=== PATIENT | female | born 1965 | race Caucasian/White ===

== ENCOUNTER 2022-07-13 05:58 | Outpatient (OUT) | payer MEDICARE, SELFPAY ==
--- NOTE | 2022-07-13 06:15 | NM_ITS ---
Patient: FRANKY SRINIVASAN Exam Date: 07/13/2022 : 1965 Gender:F Ordering : DR. Jackson Moralez . Admission #: [id number] Family : Jaymie Phoenix Order #: [id number] CLICK HERE TO VIEW EXAM RADIOLOGY REPORT PROCEDURE: NM SAHIL PERF SPECT REST STR COMPARISON: None. INDICATIONS: Shortness of breath TECHNIQUE: Exam Description: Stress/Rest one day protocol gated SPECT Rest Imagin.8 mCi Tc-99m Cardiolite IV on 07/13/2022 Stress Imaging 30.1 mCi Tc-99m Cardiolite IV on 07/13/2022 Exercise Protocol: 0.4 mg Lexiscan given IV Heart Rate (bpm): Rest: 81 Max: 103 PMHR: 63 Blood Pressure: Rest: 146/98 Max: 150/94 Symptoms: Rest and peak stress ECG findings were abnormal and the exercise portion of the study was Non-diagnostic per attending physician Dr. Moralez due to EKG changes, biphasic T-waves in V3-5. For more details please see separate cardiac stress test report. FINDINGS: QUALITY OF STUDY: Excellent. PERFUSION DEFECT: LOCATION: Apical anterior. SIZE: Small (1-2 segments). SEVERITY: Mild. TYPE: Persistent. WALL MOTION: Normal. LV SIZE: Normal. 69 mL. TID / TCD: None; 0.8 LVEF: Normal. Calculated EF 81%. SUMMARY: Myocardial perfusion imaging study has ABNORMAL findings. CONCLUSION: 1. No acute or reversible ischemia. 2. Small fixed perfusion defect involving a pickle anterior wall versus breast attenuation artifact. 3. Normal wall motion, left ventricle volume, and ejection fraction. Dictated by: Gurwinder Day M.D. on 07/14/2022 at 06:50 Approved by: Gurwinder Day M.D. on 07/14/2022 at 07:56
[2022-07-13] MEDS: REGADENOSON 0.4 MG/5 ML SYRINGE IV (08:51)
--- NOTE | 2022-07-13 10:22 | PM.STRESS ---
Stress Test Stress Test Requesting physician: Jackson Moralez Procedure: Lexiscan Cardiolite stress test General Information: Reason for Stress Test: Chest pain, dyspnea Cardiac History and Risk Factors: No personal history; she was adopted Resting 12 - Lead Electrocardiogram: Normal sinus, rate 79. Incomplete RBBB. Normal Q-waves, inverted T-waves V3-4. Stress Test: Protocol: Lexiscan followed by Cardiolite Blood Pressure Response: Max 150/94 Rhythm: Normal sinus. Max predicted heart rate = 63%. ST - Response: After injection of Lexiscan, T-waves in V3-5 appeared biphasic (more apparent than baseline and now subtle involvement of V5 at end of study) Patient Response: Asymptomatic Interpretation: Non-diagnostic Lexiscan given abnormal T-wave changes in V3-5 after injection of the medication. Cardiolite interpretation will be reported separately. Clinical correlation required.
== END 2022-07-13 05:59 ==
PROVIDERS: PCP Nurse Practitioner; Visit Provider Internal Medicine
DX: R07.9 Chest pain, unspecified (principal); R94.2 Abnormal results of pulmonary function studies; R94.39 Abnormal result of other cardiovascular function study
CPT/HCPCS: 78452; 93017; A9500; J2785

== ENCOUNTER 2023-01-08 16:03 | Emergency (ER) | payer MEDICARE, SELFPAY ==
[2023-01-08 16:13] VITALS: BP 144/84; PULSE 87; RESP 20; TEMP 36.6; O2SAT 94; BMI 33.3
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
[2023-01-08] MEDS: KETOROLAC TROMETHAMINE 60 MG/2 ML VIAL IM (17:35)
[2023-01-08] MEDS: ORPHENADRINE 60 MG/ 2 ML VIAL IM (17:36)
== END 2023-01-08 17:43 | disposition home or self-care (01) ==
PROVIDERS: Emergency Provider Emergency Medicine; PCP Nurse Practitioner
DX: R07.89 Other chest pain (principal); F17.210 Nicotine dependence, cigarettes, uncomplicated; V49.9XXA Car occupant (driver) (passenger) injured in unspecified traffic accident, initial encounter
CPT/HCPCS: 71046; 73000; 96372; 99285

== ENCOUNTER 2023-02-25 09:00 | Outpatient (OUT) | payer MEDICARE, SELFPAY | END 2023-02-25 09:01 | disposition home or self-care (01) | LOC: WC 03-01 10:26 | PROVIDERS: PCP Nurse Practitioner; Visit Provider Physician Assistant | DX: L97.421 Non-pressure chronic ulcer of left heel and midfoot limited to breakdown of skin (principal); E78.2 Mixed hyperlipidemia; M79.7 Fibromyalgia | CPT/HCPCS: 11042; 36415; 80053; 80061; 85025; G0463 ==

== ENCOUNTER 2023-02-25 10:58 | Outpatient (OUT) | payer MEDICARE, SELFPAY ==
[2023-02-25 11:13] LABS: Basophils Percent Auto 0.5 % (0.2-2.0); Eosinophils Absolute Auto 0.1 10^3/uL (0.0-0.7); Eosinophils Percent Auto 1.3 % (0.9-7.0); Hematocrit 44.3 % (36.0-48.0); Immature Granulocytes Abs Auto 0.04 10^3/uL (0.00-0.03); Immature Granulocytes Pct Auto 0.5 % (0.0-0.5); Lymphocytes Absolute Auto 1.8 10^3/uL (1.2-3.8); Mean Corpuscular HGB Conc 33.9 g/dL (29.9-35.2); Mean Corpuscular Hemoglobin 34.1 pg (26.7-34.0); Mean Corpuscular Volume 100.7 fL (81.0-99.0); Mean Platelet Volume 11.1 fL (9.5-13.5); Monocytes Absolute Auto 0.6 10^3/uL (0.3-0.8); Monocytes Percent Auto 7.8 % (1.7-12.0); Neutrophils Absolute Auto 4.9 10^3/uL (1.4-6.5); Neutrophils Percent Auto 65.9 % (43.0-75.0); Platelet Count 170 10^3/uL (150-450); Red Cell Distribution Width 13.1 % (11.0-15.0); White Blood Count 7.4 10^3/uL (4.0-11.0)
--- OUTSIDE RECORDS SUMMARY | 2023-02-25 11:18 | XMS_ITS | CCD ---
Author Name Unknown Address [address] [place] [address] Organization [facility] Care Team Providers Care Peach Grower Name Role Phone JAYMIE PHOENIX Primary Care Physician Bryson SAMPSON Attending Unavailable JAYMIE PHOENIX Referring Unavailabl e NILL, Bryson Hernandez Attending Unavailable Aichholz, Tracy L Referring Unavailable NILL, Bryson Hernandez Attending Unavailable NILL, Bryson Hernandez Attending Unavailable NILL, Bryson Hernandez Attending Unavailable AICHHOLZ, LABOR UNION BUSINESS REPRESENTATIVE JAYMIE Primary Care Unavailable ALLAN ., DR JIM Mcdonnell Attending Unavailable ALLAN ., DR JIM Mcdonnell Admitting Unavailable ALLAN ., DR JIM Mcdonnell Consulting Unavailable ROBINSON ., GLENROY Admitting Unavailable ROBINSON ., GLENROY Attending Unavailable MEHRDAD .SJ Consulting Unavailable AICHHOLZ, LABOR UNION BUSINESS REPRESENTATIVE JAYMIE Primary Care Unavailable MENDEZ ., MR DEMETRIUS Admitting Unavailable MENDEZ ., MR ROMO Attending Unavailable AICHHOLZ, LABOR UNION BUSINESS REPRESENTATIVE JAYMIE Primary Care Unavailable AICHHOLZ, LABOR UNION BUSINESS REPRESENTATIVE JAYMIE Admitting Unavailable JUANITA, DR NADINE Caldwell Consulting Unavailable AICHHOLZ, LABOR UNION BUSINESS REPRESENTATIVE JAYMIE Primary Care Unavailable AICHHOLZ, LABOR UNION BUSINESS REPRESENTATIVE JAYMIE Attending Unavailable AICHHOLZ, LABOR UNION BUSINESS REPRESENTATIVE JAYMIE Consulting Unavailable AICHHOLZ, LABOR UNION BUSINESS REPRESENTATIVE JAYMIE Admitting Unavailable JUANITA, DR NADINE Caldwell Consulting Unavailable AICHHOLZ, LABOR UNION BUSINESS REPRESENTATIVE JAYMIE Primary Care Unavailable AICHHOLZ, LABOR UNION BUSINESS REPRESENTATIVE JAYMIE Attending Unavailable AICHHOLZ, LABOR UNION BUSINESS REPRESENTATIVE JAYMIE Consulting Unavailable AICHHOLZ, LABOR UNION BUSINESS REPRESENTATIVE JAYMIE Primary Care Unavailable NILL ., DR MASSEY Admitting Unavailable NILL ., DR MASSEY Attending Unavailable NILL ., DR MASSEY Consulting Unavailable SONDRA FELICIANO Consulting Unavailable ROBINSON ., GLENROY Admitting Unavailable ROBINSON ., GLENROY Attending Unavailable ROBINSON ., GLENROY Consulting Unavailable AICHHOLZ, LABOR UNION BUSINESS REPRESENTATIVE JAYMIE Primary Care Unavailable ALLAN ., DR JIM Mcdonnell Attending Unavailable ALLAN ., DR JIM Mcdonnell Consulting Unavailable ALLAN ., DR JIM Mcdonnell Admitting Unavailable AICHHOLZ, LABOR UNION BUSINESS REPRESENTATIVE JAYMIE Primary Care Unavailable MARIA FERNANDA SOSA Consulting Unavailable ALLAN ., DR JIM Mcdonnell Attending Unavailable ALLAN ., DR JIM Mcdonnell Consulting Unavailable ALLAN ., DR JIM Mcdonnell Admitting Unavailable AICHHOLZ, LABOR UNION BUSINESS REPRESENTATIVE JAYMIE Primary Care Unavailable ALLAN ., DR JIM Mcdonnell Admitting Unavailable ALLAN ., DR JIM Mcdonnell Attending Unavailable ALLAN ., DR JIM Mcdonnell Consulting Unavailable AICHHOLZ, LABOR UNION BUSINESS REPRESENTATIVE JAYMIE Primary Care Unavailable ALLAN ., DR JIM Mcdonnell Admitting Unavailable ALLAN ., DR JIM Mcdonnell Attending Unavailable AICHHOLZ, LABOR UNION BUSINESS REPRESENTATIVE JAYMIE Primary Care Unavailable THORNE ., JENNY Consulting Unavailable ALLAN ., DR JIM Mcdonnell Admitting Unavailable ALLAN ., DR JIM Mcdonnell Attending Unavailable ALLAN ., DR JIM Mcdonnell Consulting Unavailable AICHHOLZ, LABOR UNION BUSINESS REPRESENTATIVE JAYMIE Primary Care Unavailable ALLAN ., DR JIM Mcdonnell Admitting Unavailable ALLAN ., DR JIM Mcdonnell Attending Unavailable ALLAN ., DR JIM Mcdonnell Consulting Unavailable AICHHOLZ, LABOR UNION BUSINESS REPRESENTATIVE JAYMIE Primary Care Unavailable THORNE ., JENNY Consulting Unavailable ALLAN ., DR JIM Mcdonnell Admitting Unavailable ALLAN ., DR JIM Mcdonnell Attending Unavailable AICHHOLZ, LABOR UNION BUSINESS REPRESENTATIVE JAYMIE Primary Care Unavailable ALLAN ., DR JIM Mcdonnell Attending Unavailable ALLAN ., DR JIM Mcdonnell Consulting Unavailable ALLAN ., DR JIM Mcdonnell Admitting Unavailable AICHHOLZ, LABOR UNION BUSINESS REPRESENTATIVE JAYMIE Primary Care Unavailable LAKSHMIPATHY ., NARENDRANATH Consulting Evelyn vailable NILL ., DR MASSEY Consulting Unavailable NILL ., DR MASSEY Admitting Unavailable AICHHOLZ, LABOR UNION BUSINESS REPRESENTATIVE JAYMIE Primary Care Unavailable NILL ., DR MASSEY Attending Unavailable AICHHOLZ, LABOR UNION BUSINESS REPRESENTATIVE JAYMIE Admitting Unavailable AICHHOLZ, LABOR UNION BUSINESS REPRESENTATIVE JAYMIE Attending Unavailable AICHHOLZ, LABOR UNION BUSINESS REPRESENTATIVE JAYMIE Consulting Unavailable AICHHOLZ, LABOR UNION BUSINESS REPRESENTATIVE JAYMIE Primary Care Unavailable CHET, DR MELISSA Hernandez Consulting Unavailable AICHHOLZ, LABOR UNION BUSINESS REPRESENTATIVE JAYMIE Admitting Unavailable AICHHOLZ, LABOR UNION BUSINESS REPRESENTATIVE JAYMIE Attending Unavailable AICHHOLZ, LABOR UNION BUSINESS REPRESENTATIVE JAYMIE Consulting Unavailable AICHHOLZ, LABOR UNION BUSINESS REPRESENTATIVE JAYMIE Primary Care Unavailable LORI FROST Consulting Unavailable ALLAN ., DR JIM Mcdonnell Attending Unavailable ALLAN ., DR JIM Mcdonnell Admitting Unavailable AICHHOLZ, LABOR UNION BUSINESS REPRESENTATIVE JAYMIE Primary Care Unavailable AICHHOLZ, LABOR UNION BUSINESS REPRESENTATIVE JAYMIE Primary Care Unavailable SAMSA ., MAGDALENA Admitting Unavailable SAMSA ., MAGDALENA Attending Unavailable SAMSA ., MAGDALENA Consulting Unavailable JERRELL ., DR JIM Mcdonnell Attending Unavailable JERRELL ., DR JIM Mcdonnell Admitting Unavailable JERRELL ., DR JIM Mcdonnell Consulting Unavailable JOSIAHMADAY, MEREDITH JAYMIE Primary Care Unavailable AICHOLHomer, MEREDITH JAYMIE Admitting Unavailable AICHHOLHomer, LABOR UNION BUSINESS REPRESENTATIVE JAYMIE Attending Unavailable AICHHOLHomer, LABOR UNION BUSINESS REPRESENTATIVE JAYMIE Consulting Unavailable AICHOLHomer, LABOR UNION BUSINESS REPRESENTATIVE JAYMIE Primary Care Unavailable Alphonse Damian Attending Unavailab le Alpohnse Damian Admitting Unavailab le Jaymie Phoenix Primary Care Unavailable Allergies Allergy Classification Reported Allergen(s) Allergy Type Date of Onset Reaction(s) Facility (4 sources) Penicillins; Translations: [penicillins] Drug allergy 4 Dyspnea (finding), Weal (disorder) [facility] [place] (2 sources) predniSONE; Translations: [prednisone] Drug Allergy Dyspnea (finding) General [facility] [place] (1 source) prednisoLONE Drug Allergy [facility] Repository Medications Current Medications Medication Drug Class(es) Dates Sig (Normalized) Sig (Original) amitriptyline hydrochloride 100 mg oral tablet (1 source) Tricyclic Antidepressant Start: 01-22-2022 amitriptyline 100 mg oral tablet 50 mg = 0.5 tab(s), Oral, Once a day (at bedtime), Refills(s) 0 Start Date: 01/22/22 Status: Ordered lamoTRIgine 100 mg oral tablet (1 source) Mood Stabilizer, Anti-epileptic Agent Start: 01-22-2022 take 1 tablet by mouth once daily in the morning, then take 2 tablets by mouth once daily in the evening Lamictal 100 mg Tab 1 po QAM and 2 po QPM, Refills(s) 0 Start Date: 01/22/22 Status: Ordered meloxicam 15 mg oral tablet (1 source) Nonsteroidal Anti-inflammatory Drug Start: 01-22-2022 take 1 tablet by mouth once daily meloxicam 15 mg Tab 15 mg = 1 tab(s), Oral, Daily, Refills(s) 0 Start Date: 01/22/22 Status: Ordered omeprazole 40 mg delayed release oral capsule (1 source) Proton Pump Inhibitor Start: 01-22-2022 take 1 capsule by mouth once daily omeprazole 40 mg Cap-DR 40 mg = 1 cap(s), Oral, Daily, Refills(s) 0 Start Date: 01/22/22 Status: Ordered prazosin 2 mg oral capsule (1 source) alpha-Adrenergic Lenora Start: 01-22-2022 take 1 capsule by mouth at bedtime prazosin 2 mg oral capsule 2 mg = 1 cap(s), Oral, Bedtime, Refills(s) 0 Start Date: 01/22/22 Status: Ordered pregabalin 100 mg oral capsule (1 source) Start: 01-22-2022 take 1 capsule by mouth twice daily pregabalin 100 mg Cap 100 mg = 1 cap(s), Oral, BID, Refills(s) 0 Start Date: 01/22/22 Status: Ordered propranolol hydrochloride 40 mg oral tablet (1 source) beta-Adrenergic Lenora Start: 01-22-2022 take 1 tablet by mouth twice daily propranolol 40 mg Tab 40 mg = 1 tab(s), Oral, BID, Refills(s) 0 Start Date: 01/22/22 Status: Ordered QUEtiapine 100 mg oral tablet (1 source) Atypical Antipsychotic Start: 01-22-2022 SEROquel 100 mg Tab 1 tabs QAM and 4 tabs qpm, Refills(s) 0 Start Date: 01/22/22 Status: Ordered simvastatin 40 mg oral tablet (1 source) HMG-CoA Reductase Inhibitor Start: 01-22-2022 take 1 tablet by mouth once daily at bedtime simvastatin 40 mg Tab 40 mg = 1 tab(s), Oral, Once a day (at bedtime), Refills(s) 0 Start Date: 01/22/22 Status: Ordered spironolactone 50 mg oral tablet (1 source) Aldosterone Antagonist Start: 01-22-2022 take 1 tablet by mouth once daily Aldactone 50 mg Tab 50 mg = 1 tab(s), Oral, Daily, Refills(s) 0 Start Date: 01/22/22 Status: Ordered tiZANidine 4 mg oral tablet (1 source) Central alpha-2 Adrenergic Agonist Start: 01-22-2022 take 1 tablet by mouth every eight hours as needed for muscle spasms tiZANidine 4 mg Tab 4 mg = 1 tab(s), Oral, q8hr, PRN Spasm, Refills(s) 0 Start Date: 01/22/22 Status: Ordered Vitamin D3 5000 intl units (125 mcg) oral tab (1 source) Start: 01-22-2022 take 1 tablet by mouth once daily Vitamin D3 5000 intl units (125 mcg) oral tab 125 mcg = 1 tab(s), Oral, Daily, Refills(s) 0 Start Date: 01/22/22 Status: Ordered Problems Active Problems Problem Classification Problem Date Documented Da te Episodic/Chronic Anxiety disorders (1 source) Mixed anxiety and depressive disorder 01-22-2022 Chronic Chronic obstructive pulmonary disease and bronchiectasis (4 sources) Chronic obstructive pulmonary disease, unspecified; Translations: [COPD UNSPECIFIED] Onset: 3 Chronic Chronic obstructive pulmonary disease and bronchiectasis (1 source) Bronchitis, not specified as acute or chronic; Translations: [BRONCHITIS NOT SPEC ACUTE/CHRON] Onset: 3 Episodic Deficiency and other anemia (1 source) Acute megaloblastic anemia 01-22-2022 Episodic Deficiency and other anemia (1 source) Other megaloblastic anemias, not elsewhere classified; Translations: [OTHER MEGALOBLASTIC ANEMIAS NEC] Onset: 3 Episodic Diabetes mellitus without complication (4 sources) Hyperglycemia, unspecified; Translations: [HYPERGLYCEMIA UNSPECIFIED] Onset: 3 Episodic Disorders of lipid metabolism (2 sources) Hyperlipidemia; Translations: [Hyperlipidemia, unspecified] Onset: 3 01-22-2022 Chronic Esophageal disorders (2 sources) Gastroesophageal reflux disease; Translations: [Gastro-esophageal reflux disease without esophagitis] Onset: 2 01-22-2022 Chronic Essential hypertension (2 sources) Essential hypertension; Translations: [Essential (primary) hypertension] Onset: 2 01-22-2022 Chronic Headache; including migraine (1 source) Migraine 01-22-2022 Chronic Nutritional deficiencies (2 sources) Vitamin D deficiency; Translations: [Vitamin D deficiency, unspecified] Onset: 3 01-22-2022 Chronic Nutritional deficiencies (1 source) Cobalamin deficiency 01-22-2022 Episodic Other bone disease and musculoskeletal deformities (1 source) Osteopenia 01-22-2022 Episodic Other connective tissue disease (1 source) Other muscle spasm; Translations: [OTHER MUSCLE SPASM] Onset: 3 Episodic Other ear and sense organ disorders (1 source) Hearing loss 01-22-2022 Chronic Other gastrointestinal disorders (1 source) Abnormal feces; Translations: [Other fecal abnormalities] Onset: 2 Episodic Other lower respiratory disease (1 source) Shortness of breath; Translations: [SHORTNESS OF BREATH] Onset: 3 Episodic Other nervous system disorders (1 source) Other chronic pain; Translations: [OTHER CHRONIC PAIN] Onset: 3 Chronic Other nutritional; endocrine; and metabolic disorders (1 source) Body mass index 40+ - severely obese 02-03-2022 Chronic Other nutritional; endocrine; and metabolic disorders (1 source) Obesity 01-22-2022 Chronic Other nutritional; endocrine; and metabolic disorders (1 source) Obesity, unspecified; Translations: [OBESITY UNSPECIFIED] Onset: 3 Chronic Other screening for suspected conditions (not mental disorders or infectious disease) (1 source) Stool DNA-based colorectal cancer screening positive 02-03-2022 Episodic Residual codes; unclassified (1 source) Sleep apnea, unspecified; Translations: [SLEEP APNEA UNSPECIFIED] Onset: 2 Chronic Residual codes; unclassified (1 source) Edema of lower extremity 01-22-2022 Episodic Residual codes; unclassified (1 source) Tobacco user 01-22-2022 Episodic Spondylosis; intervertebral disc disorders; other back problems (10 sources) Spondylosis without myelopathy or radiculopathy, lumbar region; Translations: [Other intervertebral disc degeneration, lumbar region] Onset: 2 Chronic Spondylosis; intervertebral disc disorders; other back problems (1 source) Chronic low back pain 01-22-2022 Episodic Substance-related disorders (1 source) Nicotine dependence, cigarettes, uncomplicated; Translations: [NICOTINE DEPEND CIGARETTES UNCOMP] Onset: 3 Chronic Unclassified (4 sources) LOW BACK PAIN, UNSPECIFIED; Translations: [LOW BACK PAIN, UNSPECIFIED] Onset: 3 Unclassified (4 sources) CONTACT W/AND (SUSP) EXPOS COVID-19; Translations: [CONTACT W/AND (SUSP) EXPOS COVID-19] Onset: 3 Viral infection (1 source) COVID-19; Translations: [COVID-19] Onset: 3 Past or Other Problems Problem Classification Problem Date Documented Da te Episodic/Chronic E Codes: Adverse effects of medical drugs (1 source) Adverse effect of glucocorticoids and synthetic analogues, initial encounter; Translations: [ADVRS EFF GLUCOCORT SYN ANALOG INIT] Onset: 12-04-2021 Episodic Other aftercare (1 source) Other longterm (current) drug therapy; Translations: [OTH ASSISTED CURRENT DRUG THERAPY] Onset: 02-27-2022 Episodic Other and unspecified benign neoplasm (1 source) Polyp of colon; Translations: [POLYP OF COLON] Onset: 02-27-2022 Episodic Other connective tissue disease (1 source) Fibromyalgia Onset: 03-10-2011 01-22-2022 Episodic Other connective tissue disease (1 source) Fibromyalgia; Translations: [FIBROMYALGIA] Onset: 02-27-2022 Episodic Other gastrointestinal disorders (4 sources) Other fecal abnormalities; Translations: [OTHER FECAL ABNORMALITIES] Onset: 02-25-2022 Episodic Other inflammatory condition of skin (4 sources) Pruritus, unspecified; Translations: [PRURITUS UNSPECIFIED] Onset: 12-03-2021 Episodic Other non-traumatic joint disorders (1 source) Pain in left knee; Translations: [PAIN IN LEFT KNEE] Onset: 10-13-2021 Episodic Residual codes; unclassified (1 source) Acquired absence of both cervix and uterus; Translations: [ACQUIRED ABSENCE BOTH CERVIX AND UTERUS] Onset: 02-27-2022 Episodic Residual codes; unclassified (1 source) Tobacco use; Translations: [TOBACCO USE] Onset: 12-12-2021 Episodic Residual codes; unclassified (1 source) Insomnia, unspecified; Translations: [INSOMNIA UNSPECIFIED] Onset: 12-04-2021 Episodic Unclassified (1 source) LOW BACK PAIN, UNSPECIFIED; Translations: [LOW BACK PAIN, UNSPECIFIED] Onset: 04-30-2022 Unclassified (1 source) CONTACT W/AND (SUSP) EXPOS COVID-19; Translations: [CONTACT W/AND (SUSP) EXPOS COVID-19] Onset: 03-10-2022 Results Test Name Value Interpretation Reference Range Facility BLOOD GASES BTYon 07-08-2022 02 MODE ROOM AIR Normal [facility] Comment on above: Performed By: #### A BG ####[facility] [address] [place], [place] [address]Dr. Phani El ALLENS TEST Positive Normal [facility] Comment on above: Performed By: #### A BG ####[facility] [address] [address]Dr. Phani El Base excess Calc (Bld) [Moles/Vol] 1.4 mmol/L Normal -2.0-2.0 [facility] Comment on above: Performed By: #### A BG ####[facility] [address] [place], [place] [address]Dr. Phani El BIPAP PRESSURE Normal [facility] Comment on above: Performed By: #### A BG ####[facility] [address] [place], [place] [address]Dr. Phani El CPAP Normal [facility] Comment on above: Performed By: #### A BG ####[facility] [address] [place], [place] [address]Dr. Phani El FIO2 Normal [facility] Comment on above: Performed By: #### A BG ####[facility] [address] [place], [place] [address]Dr. Phani El HCO3 (Bld) [Moles/Vol] 26.2 mmol/L Critically high 22.0-26.0 [facility] Comment on above: Performed By: #### A BG ####[facility] [address] [place], [place] [address]Dr. Phani El LPM Normal [facility] Comment on above: Performed By: #### A BG ####[facility] [address] [place], [place] [address]Dr. Phani El MINUTE VOLUME Normal [facility] Comment on above: Performed By: #### A BG ####[facility] [address] [place], [place] [address]Dr. Phani El Oxygen (Bld) [Partial pressure] 56.1 mm[Hg] Critically low 80.0-100.0 [facility] Comment on above: Performed By: #### A BG ####[facility] [address] [place], [place] [address]Dr. Phani El Oxygen saturation in Blood 92.0 % Critically low 95.0-100.0 [facility] Comment on above: Performed By: #### A BG ####[facility] [address] [address]Dr. Phani El PCO2 42.6 mmHg Normal 35.0-45.0 [facility] Comment on above: Performed By: #### A BG ####[facility] [address] [address]Dr. Phani El PEEP [facility] Comment on above: Performed By: #### A BG ####[facility] [address] [address]Dr. Phani El pH (Bld) 7.398 [pH] Normal 7.350-7.450 [facility] Comment on above: Performed By: #### A BG ####[facility] [address] [place], [place] [address]Dr. Phani El PIP [facility] Comment on above: Performed By: #### A BG ####[facility] [address] [place], [place] [address]Dr. Phani El PS [facility] Comment on above: Performed By: #### A BG ####[facility] [address] [place], [place] [address]Dr. Phani El PUNCTURE SITE RR [facility] Comment on above: Performed By: #### A BG ####[facility] [address] [place], [place] [address]Dr. Phani El RATE [facility] Comment on above: Performed By: #### A BG ####[facility] [address] [address]Dr. Phani El VENT MODE [facility] Comment on above: Performed By: #### A BG ####[facility] [address] [place], [place] [address]Dr. Phani El VT [facility] Comment on above: Performed By: #### A BG ####[facility] [address] [place], [place] [address]Dr. Phani El ECHOCARDIO M/2D COMPLETEon 0 07-08-2022 ECHOCARDIO M/2D COMPLETE Patient: FRANKY SRINIVASAN I. Exam Date: 07/08/2022 : 1965 Gender:F Ordering : DR. MAGDALENA DOWNING . Admission #: [id number] Family : MEREDITH PHOENIX LABOR UNION BUSINESS REPRESENTATIVE Order #: [id number] CLICK HERE TO VIEW EXAM ECHOCARDIOGRAM REPORT PROCEDURE: CARDIO PULMONARY ECHOCARDIO M/2D COMP INDICATIONS: Chest pain, abnormal diffusion capacity COMPARISON: None. DESCRIPTION: COMPLETE ECHOCARDIOGRAM Real-time transthoracic echocardiography with 2D, M-mode, spectral and color flow Doppler performed. QUALITY: Technical quality was good. LEFT VENTRICLE: Normal chamber size. Borderline left ventricular hypertrophy. Global left ventricular systolic function is normal. LV EF: Visual estimation of left ventricular ejection fraction is 65-70%. DIASTOLIC: Normal diastolic function. ATRIAL SEPTUM: LEFT ATRIUM: Normal chamber size. RIGHT ATRIUM: Mild dilatation. RIGHT VENTRICLE: Normal chamber size. Normal right ventricular systolic function. TRICUSPID VALVE: Normal mobility and thickness. No stenosis with trivial regurgitation. No evidence of pulmonary hypertension. RVSP 24 mmHg MITRAL VALVE: Normal mobility and thickness. No evidence of mitral valve stenosis. There is no mitral annular calcification. Trivial mitral regurgitation. AORTIC VALVE: Normal trileaflet appearance. No visible sclerosis. Normal leaflet mobility. No evidence of aortic valve stenosis. No aortic regurgitation. AORTIC ROOT: Normal diameter and appearance. PULMONIC VALVE: Normal thickness and mobility. No stenosis. No regurgitation. PERICARDIUM: Small circumferential pericardial effusion. The pericardium appears echogenic. IVC: Collapses with inspirations. Normal size. PLEURA: CONCLUSION: 1. Normal ventricular systolic function. LVEF is 65 to 70%. 2. No significant valvular dysfunction. 3. Normal right-sided pressures. 4. Small circumferential pericardial effusion. Adult Echocardiography Procedure Report Left Ventricle Left Atrium LA Volume Index (2D A2C): 40.20 ml, 40.20 ml Mitral Valve Right Ventricle Aorta Aortic Valve AoV Area (Peak Jan): 4.92 cm2, 4.92 cm2 AoV Area (VTI): 4.33 cm2, 4.33 cm2 Tricuspid Valve Pulmonic Valve Peak Velocity: 1.09 m/s, 1.02 m/s Peak Gradient: 4.43 mm[Hg] Right Atrium Dictated by: Johnathan Garcia M.D. on 07/08/2022 at 18:06 Approved by: Johnathan Garcia M.D. on 07/08/2022 at 18:14 Normal [facility] CT LUNG CANCER SCREENINGon 0 05-29-2022 CT LUNG CANCER SCREENING EXAMINATION: CT LUNG CANCER SCREENING HISTORY: Tobacco user , chronic shortness of breath COMPARISON: No relevant comparison available. TECHNIQUE: Axial, Coronal, and Sagittal images were created without the administration of IV contrast material. Dose reduction techniques were achieved by using automated exposure control and/or adjustment of mA and/or kV according to patient size and/or use of iterative reconstruction technique. FINDINGS: LUNGS: Scattered areas of curvilinear stranding favoring discoid atelectasis or scarring. No suspicious nodules or infiltrates. PLEURA: No mass, effusion, or pneumothorax. VASCULATURE: No abnormality. KAVEH: No mass or pathologic adenopathy. MEDIASTINUM: No mass or pathologic adenopathy. CARDIAC: No enlargement, pericardial thickening, or significant calcification. AORTA: No aneurysm or dissection. CHEST WALL: No mass or axillary adenopathy BONES: No bone lesion or fracture. LIMITED ABDOMEN: No suspicious findings. Limited images of the upper abdomen. OTHER: Negative. IMPRESSION: 1. Lung-RADS 2- Benign Appearance or Behavior. Nodules with a very low likelihood of becoming a clinically active cancer due to size or lack of growth. Follow-up CT Chest in 1 year. Electronically authenticated by: MELISSA ROSENBERG Date: 2022-05-29 09:36 Normal [facility] CBC AUTO DIFFon 05-05-2022 BASO # 0.1 103/ul Normal 0.0-0.1 [facility] Comment on above: Performed By: #### C BC #### [facility] [address] [address] [address] Phani El Basophils/100 WBC (Bld) 0.8 % Normal 0.2-2.0 [facility] Comment on above: Performed By: #### C BC #### [facility] [address] [address] [address] Phani El EO # 0.1 103/ul Normal 0.0-0.7 [facility] Comment on above: Performed By: #### C BC #### [facility] [address] [place] [address] Dr. Phani El Eosinophils/100 WBC (Bld) 2.0 % Normal 0.9-7.0 [facility] Comment on above: Performed By: #### C BC #### [facility] [address] [place] [address] Dr. Phani El Erythrocyte distribution width (RBC) [Ratio] 14.0 % Normal 11.0-15.0 [facility] Comment on above: Performed By: #### C BC #### [facility] [address] [place] [address] Dr. Phani El Hematocrit (Bld) [Volume fraction] 48.7 % Critically high 36.0-48.0 [facility] Comment on above: Performed By: #### C BC #### [facility] [address] [place] [address] Dr. Phani El Hemoglobin (Bld) [Mass/Vol] 15.9 g/dL Normal 12.0-16.0 [facility] Comment on above: Performed By: #### C BC #### [facility] [address] [place] [address] Dr. Phani El IG # 0.05 10e3/ul Critically high 0.00-0.03 [facility] Comment on above: Performed By: #### C BC #### [facility] [address] [place] [address] Dr. Phani El IG % 0.8 % Critically high 0.0-0.5 [facility] Comment on above: Performed By: #### C BC #### [facility] [address] [place] [address] Dr. Phani El LYMPH # 1.9 103/ul Normal 1.2-3.8 [facility] Comment on above: Performed By: #### C BC #### [facility] [address] [place] [address] Dr. Phani El Lymphocytes/100 WBC (Bld) 30.1 % Normal 20.5-60.0 [facility] Comment on above: Performed By: #### C BC #### [facility] [address] [place] [address] Dr. Phani El MANUAL DIFF REQ NO Normal [facility] Comment on above: Performed By: #### C BC #### [facility] [address] [place] [address] Dr. Phani El MCH (RBC) [Entitic mass] 32.9 pg Normal 26.7-34.0 [facility] Comment on above: Performed By: #### C BC #### [facility] [address] [place] [address] Dr. Phani El MCHC (RBC) [Mass/Vol] 32.6 g/dL Normal 29.9-35.2 [facility] Comment on above: Performed By: #### C BC #### [facility] [address] [place] [address] Dr. Phani El MCV (RBC) [Entitic vol] 100.8 fL Critically high 81.0-99.0 [facility] Comment on above: Performed By: #### C BC #### [facility] [address] [place] [address] Dr. Phani El MONO # 0.5 103/ul Normal 0.3-0.8 [facility] Comment on above: Performed By: #### C BC #### [facility] [address] [place] [address] Dr. Phani El Monocytes/100 WBC (Bld) 7.2 % Normal 1.7-12.0 [facility] Comment on above: Performed By: #### C BC #### [facility] [address] [place] [address] Dr. Phani El NEUT # 3.8 103/ul Normal 1.4-6.5 [facility] Comment on above: Performed By: #### C BC #### [facility] [address] [place] [address] Dr. Phani El Neutrophils/100 WBC (Bld) 59.1 % Normal 43.0-75.0 [facility] Comment on above: Performed By: #### C BC #### [facility] [address] [address] [address] Phani El Platelet mean volume (Bld) [Entitic vol] 11.0 fL Normal 9.5-13.5 [facility] Comment on above: Performed By: #### C BC #### [facility] [address] [address] [address] Phani El PLT 167 103/ul Normal 150-450 [facility] Comment on above: Performed By: #### C BC #### [facility] [address] [address] [address] Phani El RBC 4.83 106/ul Normal 4.20-5.40 [facility] Comment on above: Performed By: #### C BC #### [facility] [address] [address] [address] Phani El WBC 6.4 103/ul Normal 4.0-11.0 [facility] Comment on above: Performed By: #### C BC #### [facility] [address] [address] [address] Phani El GLYCOHEMOGLOBIN A1Con 2022 ADA RECOMMENDATION SEE BELOW Normal [facility] Comment on above: Result Comment: ADA RECOMMENDED LIMIT 4.0 - 6.0 ADA THERAPEUTIC TARGET < 7.0 ACTION SUGGESTED > 7.0 Performed By: #### A 1C ####[facility] [address] [address]Dr. Phani El Glucose [Mass/Vol] 114 mg/dL Normal [facility] Comment on above: Performed By: #### A 1C ####[facility] [address] [id number]. Phani El HbA1c (Bld) [Mass fraction] 5.6 % Normal 4.5-6.2 [facility] Comment on above: Performed By: #### A 1C ####[facility] [address] [address]Dr. Phani El LIPID PROFILEon 05-05-2022 CHOL-HDL RATIO NORM SEE BELOW Normal [facility] Comment on above: Result Comment: 3.3 - 4.4 LOW RISK 4.4 - 7.1 AVERAGE RISK 7.1 - 11.0 MODERATE RISK >11.0 HIGH RISK Performed By: #### C MP, LIPID #### [facility] [address] [address] [address] Phani El Cholesterol [Mass/Vol] 178 mg/dL Normal <=200 [facility] Comment on above: Performed By: #### C MP, LIPID #### [facility] [address] [address] [address] Phani El Cholesterol in HDL [Mass/Vol] 54 mg/dL Normal 40-60 [facility] Comment on above: Performed By: #### C MP, LIPID #### [facility] [address] [place] [address] Dr. Phani El Cholesterol in LDL [Mass/Vol] 86.6 mg/dL Normal [facility] Comment on above: Performed By: #### C MP, LIPID #### [facility] [address] [place] [address] Dr. Phani El Cholesterol.total/Ch olesterol in HDL [Mass ratio] 3.3 {ratio} Normal [facility] Comment on above: Performed By: #### C MP, LIPID #### [facility] [address] [place] [address] Dr. Phani El HDL NORMAL > or = 60 mg/dl - LO W CARDIOVASCULAR RISK <40 mg/dl - HIGH CARDIOVASCULAR RISK Normal [facility] Comment on above: Performed By: #### C MP, LIPID #### [facility] [address] [place] [address] Dr. Phani El LDL CALC NORMAL SEE BELOW Normal [facility] Comment on above: Result Comment: <100 mg/dl OPTIMAL 100 - 129 mg/dl NEAR OR ABOVE OPTIMAL 130 - 159 mg/dl BORDERLINE HIGH 160 - 189 mg/dl HIGH >190 mg/dl VERY HIGH Performed By: #### C MP, LIPID #### [facility] [address] [place] [address] Dr. Phani El Triglyceride [Mass/Vol] 187 mg/dL Critically high <=150 [facility] Comment on above: Performed By: #### C MP, LIPID #### [facility] [address] [place], [place] [address] Dr. Phani El VLDL CALC 37.4 mg/dL Normal [facility] Comment on above: Performed By: #### C MP, LIPID #### [facility] [address] [place], [place] [address] Dr. Phani El PROF 14(COMP METB)on 023 Albumin [Mass/Vol] 3.6 g/dL Normal 3.4-5.0 [facility] Comment on above: Performed By: #### C MP, LIPID ####[facility] [address] [phone]. Phani El Albumin/Globulin [Mass ratio] 1.1 {ratio} Normal [facility] Comment on above: Performed By: #### C MP, LIPID ####[facility] [address] [phone]. Phani El ALP [Catalytic activity/Vol] 91 U/L Normal 46-116 [facility] Comment on above: Performed By: #### C MP, LIPID ####[facility] [address] [phone]. Phani El ALT [Catalytic activity/Vol] 34 U/L Normal 14-59 [facility] Comment on above: Performed By: #### C MP, LIPID ####[facility] [address] [place] [phone]. Phani El Anion gap [Moles/Vol] 11.6 mmol/L Normal [facility] Comment on above: Performed By: #### C MP, LIPID ####[facility] [address] [phone]. Phani El AST [Catalytic activity/Vol] 18 U/L Normal 15-37 [facility] Comment on above: Performed By: #### C MP, LIPID ####[facility] [address] [place] [phone]. Phani El Bilirubin [Mass/Vol] 0.6 mg/dL Normal 0.2-1.0 [facility] Comment on above: Performed By: #### C MP, LIPID ####[facility] [address] [phone]. Phani El Calcium [Mass/Vol] 9.2 mg/dL Normal 8.5-10.1 [facility] Comment on above: Performed By: #### C MP, LIPID ####[facility] [address] [place] [phone]. Phani El Chloride [Moles/Vol] 106 mmol/L Normal 98-107 [facility] Comment on above: Performed By: #### C MP, LIPID ####[facility] [address] [place] [phone]. Phani El CO2 [Moles/Vol] 32.3 mmol/L Critically high 21.0-32.0 [facility] Comment on above: Performed By: #### C MP, LIPID ####[facility] [address] [address]Dr. Phani El Creatinine [Mass/Vol] 1.04 mg/dL Critically high 0.55-1.02 [facility] Comment on above: Performed By: #### C MP, LIPID ####[facility] [address] [address]Dr. Phani El EGFR-AF ENGLISH >60 Normal >=60 [facility] Comment on above: Performed By: #### C MP, LIPID ####[facility] [address] [place] [phone]. Phani Nikko EGFR-NON AF ENGLISH 54 mL/min/1.73m2 Critically low >=60 [facility] Comment on above: Performed By: #### C MP, LIPID ####[facility] [address] [place] [phone]. Phani Nikko Globulin (S) [Mass/Vol] 3.4 g/dL Normal [facility] Comment on above: Performed By: #### C MP, LIPID ####[facility] [address] [place] [phone]. Phani El Glucose [Mass/Vol] 124 mg/dL Critically high 74-106 [facility] Comment on above: Performed By: #### C MP, LIPID ####[facility] [address] [address]Dr. Phani El Potassium [Moles/Vol] 3.9 mmol/L Normal 3.5-5.1 [facility] Comment on above: Performed By: #### C MP, LIPID ####[facility] [address] [address]Dr. Phani El Protein [Mass/Vol] 7.0 g/dL Normal 6.4-8.2 [facility] Comment on above: Performed By: #### C MP, LIPID ####[facility] [address] [address]Dr. Phani El Sodium [Moles/Vol] 146 mmol/L Critically high 136-145 [facility] Comment on above: Performed By: #### C MP, LIPID ####[facility] [address] [address]Dr. Phani El Urea nitrogen [Mass/Vol] 14.0 mg/dL Normal 7.0-18.0 [facility] Comment on above: Performed By: #### C MP, LIPID ####[facility] [address] [address]Dr. Phnai El Urea nitrogen/Creatinine [Mass ratio] 13.5 mg/mg Normal [facility] Comment on above: Performed By: #### C MP, LIPID ####[facility] [address] [address]Dr. Phani El VITAMIN B12on 05-05-2022 Cobalamin (Vitamin B12) [Mass/Vol] 321.0 pg/mL Normal 193.0-986.0 [facility] Comment on above: Performed By: #### V ITOMI VITB12 #### [facility] [address] [address] [address] Phani El VITAMIN D 25 OHon 05-05-2022 VIT D 25-OH 58.7 ng/mL Normal [facility] Comment on above: Performed By: #### V ITAD, VITB12 #### [facility] [address] [place], [place] [address] Dr. Phani El VIT D RANGES SEE BELOW Normal [facility] Comment on above: Result Comment: <20 ng/mL Vit D deficient 20 - <30 ng/mL Vit D insufficient 30 - 100 ng/mL Vit D sufficient >100 ng/mL Potential Toxicity Performed By: #### V NIC VITB12 #### [facility] [address] [place], [place] [address] Dr. Phani El XR CHEST 2 Von 05-05-2022 XR CHEST 2 V EXAM: XR CHEST 2 V HISTORY: Bronchitis COMPARISON: None. TECHNIQUE: PA and lateral views of the chest. FINDINGS: The cardiomediastinal silhouette is normal. No focal consolidation. There is no pneumothorax. No pleural effusion is noted. The osseous structures are intact. IMPRESSION: No focal consolidation. Electronically authenticated by: LORI FROST Date: 2022-05-05 10:05 Normal [facility] Ambulatory Visit Summaryon 0 03-24-2022 Ambulatory Visit Summary FRANKY SRINIVASAN I :1965 Visit Date:03/24/2022 Ambulatory Visit Instructions Your Diagnosis Hyperplastic polyp of sigmoid colon Your Care Team Attending Physician - CAMILLA AMADOR, Bryson Hernandez Primary Care Physician - JAYMIE PHOENIX CNP This Is Your Medications List Contact prescribing physician if questions or concerns amitriptyline (amitriptyline 100 mg oral tablet) cholecalciferol (Vitamin D3 5000 intl units (125 mcg) oral tab) lamotrigine (Lamictal 100 mg Tab) meloxicam (meloxicam 15 mg Tab) omeprazole (omeprazole 40 mg Cap-DR) prazosin (prazosin 2 mg oral capsule) pregabalin (pregabalin 100 mg Cap) propranolol (propranolol 40 mg Tab) quetiapine (SEROquel 100 mg Tab) simvastatin (simvastatin 40 mg Tab) spironolactone (Aldactone 50 mg Tab) tizanidine (tiZANidine 4 mg Tab) Procedures Performed Colonoscopy (02/25/2022), section, section, Meniscal repair, DREW BSO - Total abdominal hysterectomy and bilateral salpingo-oophorectomy, Tubal ligation. Medications What How Much When Instructions Unchanged amitriptyline (amitriptyline 100 mg oral tablet) 0.5 Tablets By Mouth Once a day (at bedtime) Contact prescribing physician if questions or concerns Unchanged cholecalciferol (Vitamin D3 5000 intl units (125 mcg) oral tab) 1 Tablets By Mouth Every day Contact prescribing physician if questions or concerns Unchanged lamotrigine (Lamictal 100 mg Tab) 1 po QAM and 2 po QPM Contact prescribing physician if questions or concerns Unchanged meloxicam (meloxicam 15 mg Tab) 1 Tablets By Mouth Every day Contact prescribing physician if questions or concerns Unchanged omeprazole (omeprazole 40 mg Cap-DR) 1 Capsules By Mouth Every day Contact prescribing physician if questions or concerns Unchanged prazosin (prazosin 2 mg oral capsule) 1 Capsules By Mouth At bedtime Contact prescribing physician if questions or concerns Unchanged pregabalin (pregabalin 100 mg Cap) 1 Capsules By Mouth 2 times a day Contact prescribing physician if questions or concerns Unchanged propranolol (propranolol 40 mg Tab) 1 Tablets By Mouth 2 times a day Contact prescribing physician if questions or concerns Unchanged quetiapine (SEROquel 100 mg Tab) 1 tabs QAM and 4 tabs qpm Contact prescribing physician if questions or concerns Unchanged simvastatin (simvastatin 40 mg Tab) 1 Tablets By Mouth Once a day (at bedtime) Contact prescribing physician if questions or concerns Unchanged spironolactone (Aldactone 50 mg Tab) 1 Tablets By Mouth Every day Contact prescribing physician if questions or concerns Unchanged tizanidine (tiZANidine 4 mg Tab) 1 Tablets By Mouth Every 8 hours as needed for Spasm Contact prescribing physician if questions or concerns Allergies penicillins (SOB - Shortness of breath, Hives) predniSONE (SOB - Shortness of breath) Problems Ongoing - Any problem that you are currently receiving treatment for. Acute megaloblastic anemia Anxiety and depression BMI 40.0-44.9, adult Chronic lumbar pain Essential hypertension Fibromyalgia Gastroesophageal reflux disease Hearing loss Hyperlipidemia Hyperplastic polyp of sigmoid colon Lower extremity edema Migraines Obesity Osteopenia Positive colorectal cancer screening using Cologuard test Tobacco user Vitamin B12 deficiency Vitamin D deficiency Normal [facility] General Surgery Office/Clini c Noteon 03-24-2022 General Surgery Office/Clinic Note Chief Complaint colonoscopy follow up HPI Staff 27 day post operative follow up post colonoscopy with sigmoid polypectomy. History of Present Illness s/p colonoscopy due to positive Cologuard; found 4 small sigmoid polyps; pathology consistent with hyperplastic polyps; Review of Systems ROS - Provider Constitutional: no fever, no sweats, no weight loss. Eyes: no glasses, no blurred vision, no visual loss. ENMT: no dentures, no hoarseness, no swallowing difficulties, no hearing loss, no ear infection(s), no nose bleeds. Cardiovascular: normal blood pressure, no chest pain, regular heartbeat, no heart murmur. Respiratory: no shortness of breath, no cough, no asthma, no wheezing. Gastrointestinal: no nausea, no vomiting, no diarrhea, no constipation, no blood in stool, no change in bowel habits, no abdominal pain, no hepatitis. Genitourinary: no kidney stones, no urine infection, no dysuria. Musculoskeletal: no pain, no weakness. Skin: no changing moles, no rash, no skin lumps. Neurologic: no seizures, no epilepsy, no headache. Psychiatric: no emotional or psychiatric problem. Heme/Lymph: no bleeding problems, no anemia, no blood clots, no transfusions. Allergy/Immunologic: no swollen lymph nodes/glands, no IV drug abuse. Other: Additional ROS info: Except as noted in the above Review of Systems and in the History of Present Illness, all other systems have been reviewed and are negative or noncontributory. Assessment/Plan 1. Hyperplastic polyp of sigmoid colon (K63.5: Polyp of colon) plan screening colonoscopy in 10 years, call sooner if problems/questions. Follow-up No qualifying data available Problem List/Past Medical History Ongoing Acute megaloblastic anemia Anxiety and depression BMI 40.0-44.9, adult Chronic lumbar pain Essential hypertension Fibromyalgia Gastroesophageal reflux disease Hearing loss Hyperlipidemia Hyperplastic polyp of sigmoid colon Lower extremity edema Migraines Obesity Osteopenia Positive colorectal cancer screening using Cologuard test Tobacco user Vitamin B12 deficiency Vitamin D deficiency Historical No qualifying data Procedure/Surgical History Colonoscopy (02/25/2022), section, section, Meniscal repair, DREW BSO - Total abdominal hysterectomy and bilateral salpingo-oophorectomy, Tubal ligation. Medications Aldactone 50 mg Tab, 50 mg= 1 tab(s), Oral, Daily amitriptyline 100 mg oral tablet, 50 mg= 0.5 tab(s), Oral, Once a day (at bedtime) Lamictal 100 mg Tab meloxicam 15 mg Tab, 15 mg= 1 tab(s), Oral, Daily omeprazole 40 mg Cap-DR, 40 mg= 1 cap(s), Oral, Daily prazosin 2 mg oral capsule, 2 mg= 1 cap(s), Oral, Bedtime pregabalin 100 mg Cap, 100 mg= 1 cap(s), Oral, BID propranolol 40 mg Tab, 40 mg= 1 tab(s), Oral, BID SEROquel 100 mg Tab simvastatin 40 mg Tab, 40 mg= 1 tab(s), Oral, Once a day (at bedtime) tiZANidine 4 mg Tab, 4 mg= 1 tab(s), Oral, q8hr, PRN Vitamin D3 5000 intl units (125 mcg) oral tab, 125 mcg= 1 tab(s), Oral, Daily Allergies penicillins (SOB - Shortness of breath, Hives) predniSONE (SOB - Shortness of breath) Social History Alcohol - Denies Alcohol Use, 02/03/2022 Substance Abuse - Denies Substance Abuse, 02/03/2022 Tobacco 10 or more cigarettes (1/2 pack or more)/day in last 30 days Tobacco Use:. Never Smokeless Tobacco Use:. Cigarettes, Started age 16.0 Years. Yes, 02/03/2022 Family History Patient was adopted Immunizations Vaccine Date Status Comments influenza virus vaccine, inactivated - Not Given Patient Refuses Normal [facility] Comment on above: Result Comment: Elec tronically Signed By: CAMILLA AMADOR, Bryson Steinberg\Date and Time Signed: 03/24/22 13:12 EST Reminderson 03-24-2022 Reminders - From: Kristine Harrison LPN To: N - Clinical; Sent: 03/24/2022 13:05:34 EST Show up: 01/26/2032 07:00:00 EST Subject: colonoscopy recall Due Date/Time: 02/26/2032 07:00:00 EST Reminder/Recall Patient is due for screening colonoscopy 02/26/2032. Normal [facility]10 SARS-CoV-2 (COVID-19) RNA MARISOL+probe Ql (Unsp spec) Detected Abnormal NOT DETECTED [facility] Comment on above: Result Comment: This test is not yet approved or cleared by the [place] FDA. When there are no FDA-approved or cleared tests available, and other criteria are met, FDA can make tests available under an emergency access mechanism called an Emergency Use Authorization (EUA). The EUA for this test is supported by the [place] of Health and Human Service's (HHS's) declaration that circumstances exist to justify the emergency use of in vitro diagnostics for the detection and/or diagnosis of the virus that causes COVID-19. This EUA will remain in effect (meaning this test can be used) for the duration of the COVID-19 declaration justifying emergency of IVDs, unless it is terminated or revoked by FDA (after which the test may no longer be used). Performed By: #### C VDTB #### [facility] [address] [address] [address] Phani El INFLUENZA A AND B AGon 03-10 [facility] SEE BELOW Normal [facility] Comment on above: Result Comment: Nega tive for Flu A protein angiten. Infection due to Flu A cannot be ruled out. Flu A angiten in the sample may be below the detection limit of the test. Performed By: #### I NFLUAB ####[facility] [address] [address]Dr. Phani El INFLUBNEG SEE BELOW Normal [facility] Rehabilitation Comment on above: Result Comment: Nega tive for Flu B protein antigen. Infection due to Flu B cannot be ruled out. Flu B antigen in the sample may be below the detection limit of the test. Performed By: #### I NFLUAB ####[facility] [address] [place] [id number]. Phani El INFLUENZA A AG Negative Normal NEGATIVE SEE COMMENT [facility] Comment on above: Performed By: #### I NFLUAB ####[facility] [address] [place] [id number]. Phani El INFLUENZA B AG Negative Normal NEGATIVE SEE COMMENT [facility] Comment on above: Performed By: #### I NFLUAB ####[facility] [address] [place], [place] [address]ZvDr. Phani El Covid-19 PCR (CVDTB)on 02-09 SARS-CoV-2 (COVID-19) RNA MARISOL+probe Ql (Unsp spec) Detected Abnormal NOT DETECTED [facility] Comment on above: Result Comment: This test is not yet approved or cleared by the [place] FDA. When there are no FDA-approved or cleared tests available, and other criteria are met, FDA can make tests available under an emergency access mechanism called an Emergency Use Authorization (EUA). The EUA for this test is supported by the [place] of Health and Human Service's declaration that circumstances exist to justify the emergency use of in vitro diagnostics for the detection and/or diagnosis of the virus that causes COVID-19. This EUA will remain in effect for the duration of the COVID-19 declaration justifying emergency of IVDs, unless it is terminated or revoked by the FDA (after which the test may no longer be used). Performed By: #### C VDTB #### [facility] [address] [place], [place] [address] Dr. Phani El Pathology Noteon 02-27-2022 Pathology Note [id number] 0CD:127 Normal [facility] Outside Colonoscopyon 2022 Outside Colonoscopy [id number]#1.0 0CD:127 Normal [facility] Reminderson 02-26-2022 Reminders - From: Kristine Harrison LPN To: Kristine Harrison LPN; Sent: 02/26/2022 11:14:25 EST Show up: 05/18/2022 07:00:00 EDT Subject: Ambulatory Reminder Due Date/Time: 05/27/2022 07:00:00 EDT Reminder/Recall log in to extra lap top in [place] to keep account active Normal [facility] Lab Reportson 02-23-2022 Lab Reports [id number] 0CD:127 Normal [facility] Covid-19 PCR (CVDTB)on 02-08 SARS-CoV-2 (COVID-19) RNA MARISOL+probe Ql (Unsp spec) Not detected Normal NOT DETECTED [facility] Comment on above: Result Comment: This test is not yet approved or cleared by the [place] FDA. When there are no FDA-approved or cleared tests available, and other criteria are met, FDA can make tests available under an emergency access mechanism called an Emergency Use Authorization (EUA). The EUA for this test is supported by the [employer] of Health and Human Service's (HHS's) declaration that circumstances exist to justify the emergency use of in vitro diagnostics for the detection and/or diagnosis of the virus that causes COVID-19. This EUA will remain in effect (meaning this test can be used) for the duration of the COVID-19 declaration justifying emergency of IVDs, unless it is terminated or revoked by FDA (after which the test may no longer be used). When diagnostic testing is negative, the possibility of a false negative should be considered in the context of a patient's recent exposures and the presence of clinical signs and symptoms consistent with SARS-CoV-2. Performed By: #### [facility] ####[facility] [address] [place], [place] [address]Cg. Loryzach El Pre-Certification Formon Pre-Certification Form [id number]. 00CD:127 Normal [facility] Consent for Procedure/Surger yon 02-05-2022 Consent for Procedure/Surgery [id number]#1.0 0CD:127 Normal [facility] Formson 02-05-2022 Forms [id number]#1.0 0CD:127 Normal [facility] Physician Referralon 022 Physician Referral [id number]#1.0 0CD:127 Normal [facility] MRI Knee w/o Lefton 12-26-19 MRI Knee w/o Left HISTORY: Continued left-sided knee pain. History of prior arthroscopy. No recent injury. TECHNIQUE: Routine non-contrast MRI of the knee LEFT COMPARISON: Radiographs 12/01/2021. RESULT: MENISCI: Medial Meniscus: Intact Lateral Meniscus: Intact LIGAMENTS: ACL, PCL, MCL, LCL complex: Intact. CARTILAGE: Small areas of full-thickness chondral loss involving the patella. Small to moderate area of full-thickness chondral loss involving the lateral tibial plateau. Small to moderate area of high-grade partial thickness to full-thickness chondral loss within the medial compartment. TENDONS: Distal quadriceps, patellar tendon, and popliteus tendon intact. BONES AND MARROW: No evidence of fracture or bone marrow replacing process. MUSCLES: Muscle bulk and signal intensity are normal. JOINT FLUID AND SYNOVIUM: No joint effusion. No synovitis. Small Rivera's cyst containing debris and/or joint bodies. OTHER: Subcutaneous edema, especially anteriorly. IMPRESSION: Intact menisci and ligaments. Osteoarthritis as discussed. Report reported and signed by Jason Sanchez on 12/25/2021 1505 Normal [facility] MRI LSPINE WO CONon 12-05-19 MRI LSPINE WO CON EXAMINATION: MRI LSPINE WO CON HISTORY: Low back pain COMPARISON: No relevant comparison available. TECHNIQUE: A variety of imaging planes and parameters were utilized for visualization of suspected pathology. FINDINGS: For the purposes of numbering, sagittal T2 image # 9 extends from the level vertebral body superiorly to the S3 level inferiorly. PARASPINAL AREA: Normal with no visible mass. BONES: Normal alignment of the lumbar vertebral bodies with no acute fracture or spondylolisthesis. Mild to moderate diffuse degenerative spondylosis CORD/CAUDA EQUINA: Normal caliber, contour, and signal intensity. DISC LEVELS: 12-L1: No significant disc/facet abnormality, spinal stenosis, or foraminal stenosis. L1-L2: No significant disc/facet abnormality, spinal stenosis, or foraminal stenosis. L2-L3: Early degenerative disc disease is present without focal protrusion or neural impingement. L3-L4: Early degenerative disc disease is present without focal protrusion or neural impingement. L4-L5: No significant disc/facet abnormality, spinal stenosis, or foraminal stenosis. L5-S1: Early degenerative disc disease is present without focal protrusion or neural impingement. IMPRESSION: Mild discogenic changes. No significant central or foraminal stenosis Electronically authenticated by: NADINE GRANT Date: 2021-12-04 17:54 Normal [facility] XR LSPINE 2_3 VIEWSon 2021 XR LSPINE 2_3 VIEWS EXAMINATION: XR LSPI NE 2_3 VIEWS HISTORY: Low back pain COMPARISON: 05/26/2016 FINDINGS: BONES: Normal alignment with no acute fracture or spondylolisthesis. Mild degenerative spondylosis and facet osteoarthropathy DISC SPACES: Mild multilevel disc space narrowing most significant at L5-S1 PARASPINOUS: Negative. No paraspinous abnormality is seen. OTHER: Negative. IMPRESSION: Mild degenerative changes Electronically authenticated by: NADINE GRANT Date: 2021-09-30 07:20 Normal [facility] MRI Knee w/o Lefton 07-30-19 22 MRI Knee w/o Left HISTORY: Knee pain a nd instability. COMPARISON: Radius the knee 06/23/2021 TECHNIQUE: Multiplanar multisequence MRI of the left knee was performed without contrast. FINDINGS: Quadriceps and patellar tendons are intact. Small knee joint effusion. The anterior ligament and posterior cruciate ligament are intact. The medial collateral ligament, lateral collateral ligament, and popliteus myotendinous unit are intact. The medial meniscus and lateral meniscus are intact. Fully describe this fissure of the median patellar ridge with tiny focus of subcortical bone marrow edema. 3 mm fully his cartilage defect of the lateral tibial plateau without subcortical bone marrow edema. Partial-thickness cartilage loss of the weightbearing medial femoral condyle without well-defined cartilage defect. Popliteal fossa structures are intact. Thin Rivera's cyst measuring approximately 5.5 cm in craniocaudal length contains a loose body measuring approximately 12 mm. IMPRESSION: Mild osteoarthritis. Ligaments and menisci are intact. Report reported and signed by Robby Diaz on 07/30/2021 1316 Normal [facility] [employer] Vital Signs Date Time Vital Sign Value Performing Clinician Nicolasa gardiner 02-03-2022 13:27-0500 Blood Pressure Location Bryson SAMPSON [facility] [place] 02-03-2022 13:27-0500 Diastolic blood pressure 80 mm[Hg] Bryson SAMPSON [facility] [place] 02-03-2022 13:27-0500 Heart rate 72 /min Bryson CAMILLA [facility] [place] 02-03-2022 13:050 Respiratory rate 16 /min Bryson CAMILLA [facility] [place] 02-03-2022 13:270500 Systolic blood pressure 126 mm[Hg] Bryson CAMILLA [facility] [place] Encounters Encounter Date Encounter Type Care Provider Facility Start: 12-08-2022 ambulatory Alphonse Patton acility:[facility] Start: 07-08-2022 ambulatory MEREDITH PHOENIX Facil ity:[facility] Start: 05-29-2022 End: 05-30-2022 ambulatory MEREDITH PHOENIX Facility:[facility] Start: 05-05-2022 End: 05-06-2022 ambulatory MEREDITH PHOENIX Facility:[facility] Start: 04-30-2022 End: 05-01-[address] JIM ALLAN . Facility:[facility] Start: 03-31-2022 End: 03-31-[address] JIM ALLAN . Facility:[facility] Start: 03-27-[address] JIM ALLAN . Faci lity:[facility] Start: 03-24-2022 End: 03-25-2022 ambulatory Bryson SAMPSON Facility:[facility] Start: 03-17-2022 ambulatory Bryson SAMPSON Facility :[facility] Start: 03-10-2022 End: 03-10-2022 ambulatory MEREDITH PHOENIX Facility:[facility] Start: 03-02-2022 Encounter for preprocedural laboratory examination DR JIM ALLAN . [facility] Start: 02-28-2022 End: 03-01-2022 Encounter for preprocedural laboratory examination MEREDITH PHOENIX Facility:[facility] Start: 02-28-2022 End: 03-01-2022 ambulatory MEREDITH PHOENIX Facility:[facility] Start: 02-25-2022 End: 02-26-2022 ambulatory Bryson SAMPSON Facility:[id number] Start: 02-21-2022 End: 01-15-[address] BRYSON SAMPSON . Facility:[facility] Start: 02-06-2022 End: 02-07-2022 ambulatory JENNY THORNE . Facility:[facility] Start: 02-03-2022 End: 02-04-2022 ambulatory Tracy Saldaña Alban Facility: [facility] Start: 02-03-2022 End: 02-03-2022 Patient encounter procedure Bryson SAMPSON [facility] [place] Start: 01-13-2022 End: 01-13-[address] JIM ALLAN . Facility:[facility] Start: 01-08-2022 End: 01-09-[address] JIM ALLAN . Facility:[facility] Start: 01-06-2022 ambulatory Bryson SAMPSON Facility : [place] Start: 12-23-2021 End: 12-23-[address] JIM ALLAN . Facility:[facility] Start: 12-09-2021 End: 12-10-[address] JIM ALLAN . Facility:[facility] Start: 12-04-2021 End: 12-05-2021 ambulatory MEREDITH JAYMIE PHOENIX Facility:[facility] Start: 12-03-2021 End: 12-03-2021 ambulatory GLENROY BOWERS . Facility:[facility] Start: 10-10-2021 End: 10-30-2021 ambulatory MR DEMETRIUS MENDEZ . Facility:[facility] Start: 09-29-2021 End: 09-30-2021 ambulatory MEREDITH HOLCOMB ALBAN Facility:[facility] Start: 09-20-2021 End: 09-20-2021 ambulatory GLENROY BOWERS . Facility:[facility] Procedures Date Procedure Procedure Detail Performing Clinician section Bryson Saldaña Ligation of fallopian tube Leslie delacruz CAMILLA Repair of meniscus Bryson HOWELL Total abdominal hyst erectomy with bilateral salpingo-oophorectomy Bryson SAMPSON Immunizations Immunization Date Immunization Notes Care Provider Fa cility NEGATED: Highlighted row has not occurred!02-03-2022 influenza virus vaccine, unspecified formulation Bryson SAMPSON [facility] Payers Date Payer Category Payer Self-pay 1965 Unknown [id number] 2.16.8 [id number] 1965 Unknown [id number] 2.16.8 40.1.607325.3.579.2.727 1963 Unknown [id number] 2.16.8 40.1.214730.3.579.2.727 1963 Unknown [id number] 2.16.8 40.1.839839.3.579.2.727 1963 Unknown [id number] 2.16.8 40.1.012369.3.579.2.727 1963 Unknown [id number] 2.16.84 0.1.059870.3.579.2.593 1963 Unknown [id number] 2.16.84 0.1.098739.3.579.2.59 1963 Unknown [id number] 2.16.84 0.1.821367.3.579.2.59 1963 Unknown [id number] 2.16.84 0.1.191821.3.579.2.593 1963 Unknown [id number] 2.16.84 0.1.910738.3.579.2.593 1963 Unknown [id number] 2.16.84 0.1.571584.3.579.2.593 1963 Unknown [id number] 2.16.84 0.1.885567.3.579.2.593 1963 Unknown [id number] 2.16.84 0.1.299734.3.579.2.593 1963 Unknown [id number] 2.16.84 0.1.290107.3.579.2.593 1963 Unknown [id number] 2.16.84 0.1.926976.3.579.2.593 1963 Unknown [id number] 2.16.84 0.1.172041.3.579.2.593 1963 Unknown [id number] 2.16.84 0.1.942607.3.579.2.593 1963 Unknown [id number] 2.16.84 0.1.690283.3.579.2.593 1963 Unknown [id number] 2.16.84 0.1.265426.3.579.2.593 1963 Unknown [id number] 2.16.84 0.1.812877.3.579.2.593 1963 Unknown [id number] 2.16.84 0.1.815002.3.579.2.593 1963 Unknown [id number] 2.16.84 0.1.994783.3.579.2.593 1963 Unknown [id number] 2.16.84 0.1.354913.3.579.2.593 1963 Unknown [id number] 2.16.84 0.1.411534.3.579.2.593 1963 Unknown [id number] 2.16.84 0.1.958219.3.579.2.593 1963 Unknown [id number] 2.16.84 0.1.459569.3.579.2.593 1963 Unknown [id number] 2.16.84 0.1.751150.3.579.2.593 1959 Private Health Insurance [id number] Unknown [id number] 2.16.8 40.1.750092.3.579.2.531 Social History Date Type Detail Facility Start: 02-03-2022 Tobacco smoking status Heavy t obacco smoker (finding) [facility] [place] Tobacco smoking status Never Gener al [facility] [place] Sex Assigned At Female [facility] Functional Status Date Assessment Result Facility 02-03-2022 Functional Status N/A [facility] [place] Consultation note 04-30-2022 Note Date & Type Note Facility 04-30-2022 Note CONSULTATION CONSULTATION DATE: 04/30/2022 TO: Nurse Alban CHIEF COMPLAINT: 0-5/10 pain in her lower back, worse on the right side, sharp in character, increased with activities such as standing, walking, performing transitioning maneuvers. Denies any change in bowel and bladder habits or new sensorimotor change in the lower extremities. She does have a history of fibromyalgia, and she reports that this is also improved compared to her pre-rhizotomy pain level. EXAM: Notable for patient having no clinical radiculopathy or myelopathy involving the lower extremities. She had no pain with lumbar facet joint loading maneuvers; however, she had significant myofascial spasms of the lumbar paravertebral muscles occurring bilaterally, more severe on the right than the left side. She had a fair amount of tenderness in this area as well. IMPRESSION: Our impression is patient appears to have chronic pain secondary to residual myofascial spasm of the lumbar paravertebral muscles. RECOMMENDATIONS: I recommend she consider increasing her tizanidine, if needed, 1-2 pills daily as tolerated. Her pain from her lumbosacral spondylosis is stable after successful rhizotomy using radiofrequency ablation. She reports the pain in this area is improved 100%. I recommend no further intervention for residual pain symptoms, except to increase the tizanidine. Will have her return to our office on an as needed basis. [facility] Clinical Note 02-25-2022 Note Date & Type Note Facility 02-25-2022 Note OPERATIVE NOTE OPERATION DATE: 02/25/2022 PREOPERATIVE DIAGNOSIS: Positive Cologuard. POSTOPERATIVE DIAGNOSIS: Distal sigmoid polyps, 2-3 mm, four polyps. PROCEDURE: Colonoscopy to cecum with cold forceps polypectomy x4 for distal sigmoid polyps. SURGEON: Bryson Sampson M.D. ANESTHESIA: Monitored anesthesia care. ESTIMATED BLOOD LOSS: Less than 1 mL. INDICATIONS AND CONSENT: Patient is a 56-year-old female who presents for positive Cologuard. Indications, risks, benefits, alternatives of proceeding with colonoscopy were explained extensively to the patient, including the risks of bleeding, colon perforation or anesthetic complications. All of her questions were answered. Informed consent was obtained. PROCEDURE: Patient brought to the operating room, placed in the left lateral decubitus position. Monitored anesthesia care was provided. Rectal exam was performed which revealed no masses or blood. The scope was inserted into the anal canal. Under direct visualization was advanced. With the aid of abdominal compression, it was able to be advanced to the cecum where cecal markings were clearly identified. There was noted to be a good prep. Upon withdrawal of the scope, mucosal surfaces were carefully examined. There were no mass lesions or inflammatory changes. No significant diverticulosis. In the distal sigmoid, there were multiple 2 mm to 3 mm sessile polyps that were removed with cold biopsy forceps with good hemostasis. The scope was retroflexed in the anal canal. There was no significant hemorrhoidal disease. The scope was then withdrawn. Patient tolerated procedure well, was sent to recovery room in good condition. CC: Patient's family physician [facility] Consultation note 02-06-2022 Note Date & Type Note Facility 02-06-2022 Note CONSULTATION CONSULTATION DATE: 02/06/2022 HISTORY OF PRESENT ILLNESS: This is a 56-year-old female who returns to the clinic status post #2 bilateral MBB of L2, L3 and L4, L5 completed on 01/13/2022. Patient received 80% relief for approximately two hours. During that time, she was able to do housework, play with her grandchild with less pain. Today, she feels she is at her baseline, which is 6/10. Housework, standing, washing dishes, stairs and bending greatly aggravate her pain. Lying down and sitting, as well as her medications, decrease her symptoms. Medications include Lyrica 100 mg b.i.d., Mobic 15 mg daily, amitriptyline, tizanidine and Seroquel. She is on a multivitamin regimen. Patient's REVIEW OF SYSTEMS / PAST MEDICAL HISTORY / ALLERGIES and IMAGES have been reviewed and noted in the chart. PHYSICAL EXAM: VITAL SIGNS: Blood pressure 100/67, heart rate is 81. She is 5'5 , weighs 112 kg. GENERAL IMPRESSION: Pleasant, appropriate, in no acute distress. FOCUSED EXAM - BACK: Range of motion is guarded in lateral rotation and flexion/extension. Paravertebral muscles are non-spasmodic. Reproduction of spinal axial pain upon direct compression of the lumbar facets of L2, L3 and L4, L5 indicative of facet arthropathy, lumbar spondylosis. Pain does not radiate below the knees bilaterally. MUSCULOSKELETAL: Motor is intact, 5/5 bilaterally. Patient walks unassisted with a steady gait. NEUROLOGICAL: Radicular sensory is intact. Patient is cognitively intact. Bilateral reflexes to the lower extremities are +2. DIAGNOSIS: Spinal axial lower back pain, lumbar spondylosis and lumbar degenerative disc disease. PLAN: We will move forward with bilateral RFA of L2, L3 and L4, L5. I did discuss to continue with heat and stretches were demonstrated for her. She agrees to move forward with the procedure and will be followed up in the clinic thereafter. [facility] Clinical Note 02-03-2022 Note Date & Type Note Facility 02-03-2022 Note Chief Complaint consultation for positive Cologuard HPI Staff 56 year old female presents on consultation from Jaymie Phoenix for positive Cologuard. Denies abdominal or rectal pain. No rectal bleeding or change in bowel habits. Denies nausea or vomiting. No unexplained weight loss. Never had colonoscopy in the past. Family history unknown as patient is adopted. History of Present Illness 56 yo female with h/o htn, hyperlipidemia, GERD, fibromyalgia, anxiety/depression, back pain, referred for positive Cologuard; denies change in bms or blood in stools, no abd complaints; no previous colonoscopy; abdominal operations significant for x 2, tubal ligation, and DREW with bso; no asa or NSAID use, no SBE prophylaxis; fmhx unknown, patient adopted. smokes daily. Review of Systems PHQ Score Initial Depression Screen Score: 0 ROS - Provider Constitutional: no fever, no sweats, no weight loss. Eyes: no glasses, no blurred vision, no visual loss. ENMT: no dentures, no hoarseness, no swallowing difficulties, no hearing loss, no ear infection(s), no nose bleeds. Cardiovascular: normal blood pressure, no chest pain, regular heartbeat, no heart murmur. Respiratory: no shortness of breath, no cough, no asthma, no wheezing. Gastrointestinal: no nausea, no vomiting, no diarrhea, no constipation, no blood in stool, no change in bowel habits, no abdominal pain, no hepatitis. Genitourinary: no kidney stones, no urine infection, no dysuria. Musculoskeletal: no pain, no weakness. Skin: no changing moles, no rash, no skin lumps. Neurologic: no seizures, no epilepsy, no headache. Psychiatric: no emotional or psychiatric problem. Heme/Lymph: no bleeding problems, no anemia, no blood clots, no transfusions. Allergy/Immunologic: no swollen lymph nodes/glands, no IV drug abuse. Other: Additional ROS info: Except as noted in the above Review of Systems and in the History of Present Illness, all other systems have been reviewed and are negative or noncontributory. Physical Exam Vitals & Measurements HR: 72(Peripheral) RR: 16 BP: 126/80 HT: 66 in HT: 167 cm WT: 112.9 kg WT: 248.38 lb BMI: 40.48 HEENT: normal conjunctiva, sclera clear, no scleral icterus, EOM intact, PERRLA, oral mucosa moist without lesions. Neck: trachea midline, no mass, symmetric, no thyromegaly or nodules, no adenopathy Respiratory: lungs CTA, respirations non labored. Cardiovascular: regular rate and rhythm, no murmur, no pedal edema or varicosities. Gastrointestinal: obese soft, non distended, no tenderness, no masses, no palpable hernias, diastasis recti no, no hepatosplenomegaly; normal bs Lymphatic: no cervical adenopathy, Musculoskeletal: normal gait, digits and nails without infection, nodes, cyanosis, clubbing. Skin: no rashes, no lesions, no ulcers, no subcutaneous nodules, induration. Psychiatric/Neuro: oriented to time, place, person, judgement normal, affect appropriate for age, insight intact, no focal deficits. Tests: labs reviewed,, review of old records completed, Discussed surgical options, risks, and possible complications with patient. Assessment/Plan 1. Positive colorectal cancer screening using Cologuard test (R19.5: Other fecal abnormalities) plan colonoscopy under anesthesia for further evaluation, informed consent obtained. Follow-up No qualifying data available Problem List/Past Medical History Ongoing Acute megaloblastic anemia Anxiety and depression BMI 40.0-44.9, adult Chronic lumbar pain Essential hypertension Fibromyalgia Gastroesophageal reflux disease Hearing loss Hyperlipidemia Lower extremity edema Migraines Obesity Osteopenia Positive colorectal cancer screening using Cologuard test Tobacco user Vitamin B12 deficiency Vitamin D deficiency Historical No qualifying data Procedure/Surgical History section, section, Meniscal repair, DREW BSO - Total abdominal hysterectomy and bilateral salpingo-oophorectomy, Tubal ligation. Medications Aldactone 50 mg Tab, 50 mg= 1 tab(s), Oral, Daily amitriptyline 100 mg oral tablet, 50 mg= 0.5 tab(s), Oral, Once a day (at bedtime) Lamictal 100 mg Tab meloxicam 15 mg Tab, 15 mg= 1 tab(s), Oral, Daily omeprazole 40 mg Cap-DR, 40 mg= 1 cap(s), Oral, Daily prazosin 2 mg oral capsule, 2 mg= 1 cap(s), Oral, Bedtime pregabalin 100 mg Cap, 100 mg= 1 cap(s), Oral, BID propranolol 40 mg Tab, 40 mg= 1 tab(s), Oral, BID SEROquel 100 mg Tab simvastatin 40 mg Tab, 40 mg= 1 tab(s), Oral, Once a day (at bedtime) tiZANidine 4 mg Tab, 4 mg= 1 tab(s), Oral, q8hr, PRN Vitamin D3 5000 intl units (125 mcg) oral tab, 125 mcg= 1 tab(s), Oral, Daily Allergies penicillins (SOB - Shortness of breath, Hives) predniSONE (SOB - Shortness of breath) Social History Alcohol - Denies Alcohol Use, 02/03/2022 Substance Abuse - Denies Substance Abuse, 02/03/2022 Tobacco 10 or more cigarettes (1/2 pack or more)/day in last 30 days Tobacco (more content not included)... [facility] Comment on above: Result Comment: Elec tronically Signed By: CAMILLA AMADOR, Bryson [email or web address]\Date and Time Signed: 02/03/22 13:53 EST Consultation note 01-08-2022 Note Date & Type Note Facility 01-08-2022 Note CONSULTATION CONSULTATION DATE: 01/08/2022 HISTORY OF PRESENT ILLNESS: This is a 56-year-old female returning to the clinic status post #1 bilateral MBB of L2, L3 and L4, L5 completed on 12/23/2021. The patient was afforded 80% relief for a total of 18 hours. During that time, she was able to stand at her kitchen and bake, houseclean with less pain. Her walking endurance was increased as well. She reports her pain a 5-6/10 which is near her baseline. Twisting, pushing, pulling, transitioning from sitting to standing and doing housework increases her pain. She does use ice which temporarily gives her relief. Medications include Lyrica 100 mg b.i.d., Mobic 50 mg daily, tizanidine 4 mg q.h.s. and Lamictal. Patient's REVIEW OF SYSTEMS / PAST MEDICAL HISTORY / ALLERGIES and IMAGES have been reviewed and they are noted on the chart. PHYSICAL EXAM: VITAL SIGNS: Blood pressure 129/81, heart rate is 75. Temperature is 97.8. She is 5'6 and weighs 110 kg. GENERAL APPEARANCE: Pleasant, appropriate, no acute distress. FOCUSED EXAM - BACK: Range of motion is guarded in lateral rotation and flexion/extension. Reproduction of spinal axial pain upon direct compression of the posterior elements of the lumbar facets at L2, L3 and L4, L5 with positive jump response. Paravertebral muscles are non-spasmodic. Yahir's point non-tender with negative FABERs and compression test. MUSCULOSKELETAL: Motor is 4/5 bilaterally. Patient walks steadily without assistance. NEUROLOGICAL: Patient is cognitively intact. Bilateral reflexes are +2 patellar and Achilles. Negative polyneuropathy. DIAGNOSIS: Lumbar degenerative disc disease, lumbar spondylosis, spinal axial lower back pain. PLAN: We will move forward with the #2 bilateral MBB of L2, L3 and L4, L5. I recommended her to stop the ice and to use heat once or twice daily to her back. I encouraged stretches which were shown. Patient would like to move forward with the procedure and she will be followed up in the clinic thereafter. [facility] Consultation note 12-09-2021 Note Date & Type Note Facility 12-09-2021 Note CONSULTATION CONSULTATION DATE: 12/09/2021 CHIEF COMPLAINT: Low back pain. HISTORY OF PRESENT ILLNESS: This is a very pleasant, 56-year-old female, who was referred to us by Jaymie Phoenix. The patient has had chronic low back pain. Gradually, the pain has been increasing. The patient had a recent MRI which was reviewed in office today which shows early spondylitic changes in the lumbar spine. The patient describes the pain as a 7/10, an aching sensation. The patient also gives a history where she has been diagnosed with fibromyalgia. Activities such as twisting, pushing, walking, housework, lifting, bending, climbing stairs, ADLs aggravate the pain, as does change in weather. Pain is mitigated by laying down, heat and ice. The patient has attended physical therapy for three months. The patient currently takes Lyrica 100 mg, Mobic 15 mg daily, Seroquel 100 mg daily, Lamictal 100 mg in the a.m., 200 mg p.m.; amitriptyline 50 mg h.s., tizanidine 4 mg h.s. She also takes Vitamin D3 5000 units. The patient's PAST MEDICAL HISTORY / SURGICAL HISTORY / REVIEW OF SYSTEMS are noted on the chart, along with the MEDICATION LIST / ALLERGIES and the MRI, which was reviewed in office today. PHYSICAL EXAMINATION: Upon physical examination, this is a pleasant, cooperative female, who does not appear to be in any acute distress. VITAL SIGNS: Her blood pressure is elevated at 137/95 with a heart rate of 81. At a height of 5'5 , the patient weighs 109 kg. HEAD: Atraumatic, normocephalic. The patient does have cyanosis of the lips. The patient has been a heavy smoker since age 14. NECK: No crepitus is noted. HEART: No orthopnea. LUNGS: Non-labored breathing; however, the cyanosis is present. ABDOMEN: Protuberant, non-distended. BACK: Significant paravertebral tightening is present and spasm. Extension, compression, direct palpation along the posterior elements, especially at the level of L5, S1, aggravate and reproduce the patient's pain symptomatology, concordant with facet arthropathy, lumbar spondylosis. The MRI shows early degenerative changes throughout her lumbar discs. EXTREMITIES: No pedal edema is noted. MUSCULOSKELETAL: Intact in the lower extremities at 5/5. NEUROLOGICALLY: No radicular symptomatology is present. PSYCHIATRICALLY: Affect is appropriate. IMPRESSION: Hypertension, lumbar degenerative disc disease, lumbar spondylosis, chronic tobacco usage. PLAN: Education was done with regards to this and also nutritional components which may help her improve her status. The patient is attempting to stop smoking. We have suggested adding a multivitamin and magnesium glycinate, especially for her fibromyalgia symptomatology. The patient will be scheduled for a diagnostic lumbar medial branch block under fluoroscopy at the level of L2-3 and L4-5. The patient understands and would like to proceed. CC: Jaymie Phoenix, MEREDITH [facility] Evaluation + Plan note Note Date & Type Note Facility Evaluation + Plan note No data available for this section [facility] Discharge instructions Note Date & Type Note Facility Hospital Discharge instructions No data available for this section General Surgery [place] Progress note Note Date & Type Note Facility Progress note No data available for this section General Surgery [facility] Summary Purpose Family History No Family History Records FoundNo Family History Records FoundNo Family History Records FoundNo Family History Records Found Advance Directives No Advanced Directives Records FoundNo Advanced Directives Records FoundNo Advanced Directives Records FoundNo Advanced Directives Records Found Additional Source Comments INFORMATION SOURCE (unrecogn ized section and content) DATE CREATED AUTHOR 12/26/2021 [facility] dical Specialist DATE CREATED AUTHOR AUTHOR'S ORGANIZ ATION 03/25/2022 [facility] DATE CREATED AUTHOR AUTHOR'S ORGANIZ ATION 07/17/2022 [facility] DATE CREATED AUTHOR AUTHOR'S ORGANIZ ATION 02/20/2023 [facility] [place] Patient Care team informatio n (unrecognized section and content) Personnel Name: JAYMIE PHOENIX CNP Address: Address: [address] [place] [phone] FOR RECORDS PERTAINING TO PATIENTS WHO ARE OR HAVE BEEN ENROLLED IN A CHEMICAL DEPENDENCY/SUBSTANCEABUSE PROGRAM, SOME INFORMATION MAY BE OMITTED. This clinical summary was aggregated from multiple sources. Caution should be exercised in using it in the provision of clinical care. This summary normalizes information from multiple sources, and as a consequence, information in this document may materially change the coding, format and clinical context of patient data. In addition, data may be omitted in some cases. CLINICAL DECISIONS SHOULD BE BASED ON THE PRIMARY CLINICAL RECORDS. [facility] provides no warranty or guarantee of the accuracy or completeness of information in this document.
[2023-02-25 11:50] LABS: Alanine Aminotransferase 34 U/L (14-59); Albumin Level 3.4 g/dL (3.4-5.0); Alkaline Phosphatase 87 U/L (46-116); Anion Gap 12.6; Aspartate Amino Transferase 18 U/L (15-37); BUN Creatinine Ratio 8.3; Bilirubin Total 0.8 mg/dL (0.2-1.0); Carbon Dioxide 30.6 mmol/L (21.0-32.0); Chloride 101 mmol/L (98-107); Chol HDL Ratio 3.2; Cholesterol 170 mg/dL (<=200); Estimated GFR (African America >60 (>=60); Estimated GFR (Non-African Ame 51 (>=60); Globulin 3.5 g/dL; Glucose 94 mg/dL (74-106); HDL Cholesterol 53 mg/dL (40-60); Potassium 4.2 mmol/L (3.5-5.1); Sodium 140 mmol/L (136-145); Total Protein 6.9 g/dL (6.4-8.2); Triglycerides 249 mg/dL (<=150); VLDL CHOLESTEROL 49.8 mg/dL
== END 2023-02-25 10:59 | disposition home or self-care (01) ==
LOC: LAB 10:59
PROVIDERS: PCP Nurse Practitioner; Visit Provider Nurse Practitioner
DX: E78.2 Mixed hyperlipidemia (principal); M79.7 Fibromyalgia; L97.421 Non-pressure chronic ulcer of left heel and midfoot limited to breakdown of skin
CPT/HCPCS: 36415; 80053; 80061; 85025

== ENCOUNTER 2023-03-24 12:00 | Outpatient (OUT) | payer MEDICARE, SELFPAY ==
--- OUTSIDE RECORDS SUMMARY | 2023-03-24 12:03 | XMS_ITS | CCD ---
Author Name Unknown Address [address] [facility] [address] [place] [address] Organization [facility] Care Team Providers Care Upholste[employer] Name Role Phone JAYMIE PHOENIX Primary Care Physician Bryson SAMPSON Attending Unavailable JAYMIE PHOENIX Referring Unavailabl e NILL, Bryson Hernandez Attending Unavailable Aichholz, Tracy Saldaña Referring Unavailable NILL, Bryson Hernandez Attending Unavailable NILL, Bryson Hernandez Attending Unavailable NILL, Bryson Hernandez Attending Unavailable AICHHOLZ, DIABETES SOLUTIONS SPECIALIST JAYMIE Primary Care Unavailable ALLAN ., DR JIM Mcdonnell Attending Unavailable ALLAN ., DR JIM Mcdonnell Admitting Unavailable ALLAN ., DR JIM Mcdonnell Consulting Unavailable ROBINSON ., GLENROY Admitting Unavailable ROBINSON ., GLENROY Attending Unavailable MEHRDAD .SJ Consulting Unavailable AICHHOLZ, DIABETES SOLUTIONS SPECIALIST JAYMIE Primary Care Unavailable MENDEZ ., MR DEMETRIUS Admitting Unavailable MENDEZ ., MR ROMO Attending Unavailable AICHHOLZ, DIABETES SOLUTIONS SPECIALIST JAYMIE Primary Care Unavailable AICHHOLZ, DIABETES SOLUTIONS SPECIALIST JAYMIE Admitting Unavailable JUANITA, DR NADINE Caldwell Consulting Unavailable AICHHOLZ, DIABETES SOLUTIONS SPECIALIST JAYMIE Primary Care Unavailable AICHHOLZ, DIABETES SOLUTIONS SPECIALIST JAYMIE Attending Unavailable AICHHOLZ, DIABETES SOLUTIONS SPECIALIST JAYMIE Consulting Unavailable AICHHOLZ, DIABETES SOLUTIONS SPECIALIST JAYMIE Admitting Unavailable JUANITA, DR NADINE Caldwell Consulting Unavailable AICHHOLZ, DIABETES SOLUTIONS SPECIALIST JAYMIE Primary Care Unavailable AICHHOLZ, DIABETES SOLUTIONS SPECIALIST JAYMIE Attending Unavailable AICHHOLZ, DIABETES SOLUTIONS SPECIALIST JAYMIE Consulting Unavailable AICHHOLZ, DIABETES SOLUTIONS SPECIALIST JAYMIE Primary Care Unavailable NILL ., DR MASSEY Admitting Unavailable NILL ., DR MASSEY Attending Unavailable NILL ., DR MASSEY Consulting Unavailable SONDRA FELICIANO Consulting Unavailable ROBINSON ., GLENROY Admitting Unavailable ROBINSON ., GLENROY Attending Unavailable ROBINSON ., GLENROY Consulting Unavailable AICHHOLZ, DIABETES SOLUTIONS SPECIALIST JAYMIE Primary Care Unavailable ALLAN ., DR JIM Mcdonnell Attending Unavailable ALLAN ., DR JIM Mcdonnell Consulting Unavailable ALLAN ., DR JIM Mcdonnell Admitting Unavailable AICHHOLZ, DIABETES SOLUTIONS SPECIALIST JAYMIE Primary Care Unavailable MARIA FERNANDA SOSA Consulting Unavailable ALLAN ., DR JIM Mcdonnell Attending Unavailable ALLAN ., DR JIM Mcdonnell Consulting Unavailable ALLAN ., DR JIM Mcdonnell Admitting Unavailable AICHHOLZ, DIABETES SOLUTIONS SPECIALIST JAYMIE Primary Care Unavailable ALLAN ., DR JIM Mcdonnell Admitting Unavailable ALLAN ., DR JIM Mcdonnell Attending Unavailable ALLAN ., DR JIM Mcdonnell Consulting Unavailable AICHHOLZ, DIABETES SOLUTIONS SPECIALIST JAYMIE Primary Care Unavailable ALLAN ., DR JIM Mcdonnell Admitting Unavailable ALLAN ., DR JIM Mcdonnell Attending Unavailable AICHHOLZ, DIABETES SOLUTIONS SPECIALIST JAYMIE Primary Care Unavailable THORNE ., JENNY Consulting Unavailable ALLAN ., DR JIM Mcdonnell Admitting Unavailable ALLAN ., DR JIM Mcdonnell Attending Unavailable ALLAN ., DR JIM Mcdonnell Consulting Unavailable AICHHOLZ, DIABETES SOLUTIONS SPECIALIST JAYMIE Primary Care Unavailable ALLAN ., DR JIM Mcdonnell Admitting Unavailable ALLAN ., DR JIM Mcdonnell Attending Unavailable ALLAN ., DR JIM Mcdonnell Consulting Unavailable AICHHOLZ, DIABETES SOLUTIONS SPECIALIST JAYMIE Primary Care Unavailable THORNE ., JENNY Consulting Unavailable ALLAN ., DR JIM Mcdonnell Admitting Unavailable ALLAN ., DR JIM Mcdonnell Attending Unavailable AICHHOLZ, DIABETES SOLUTIONS SPECIALIST JAYMIE Primary Care Unavailable ALLAN ., DR JIM Mcdonenll Attending Unavailable ALLAN ., DR JIM Mcdonnell Consulting Unavailable ALLAN ., DR JIM Mcdonnell Admitting Unavailable AICHHOLZ, DIABETES SOLUTIONS SPECIALIST JAYMIE Primary Care Unavailable LAKSHMIPATHY ., PIPPA Consulting Evelyn vailable NILL ., DR MASSEY Consulting Unavailable NILL ., DR MASSEY Admitting Unavailable AICHHOLZ, DIABETES SOLUTIONS SPECIALIST JAYMIE Primary Care Unavailable NILL ., DR MASSEY Attending Unavailable AICHHOLZ, DIABETES SOLUTIONS SPECIALIST JAYMIE Admitting Unavailable AICHHOLZ, DIABETES SOLUTIONS SPECIALIST JAYMIE Attending Unavailable AICHHOLZ, DIABETES SOLUTIONS SPECIALIST JAYMIE Consulting Unavailable AICHHOLZ, DIABETES SOLUTIONS SPECIALIST JAYMIE Primary Care Unavailable DR MELISSA ROSENBERG Consulting Unavailable AICHHOLZ, DIABETES SOLUTIONS SPECIALIST JAYMIE Admitting Unavailable AICHHOLZ, DIABETES SOLUTIONS SPECIALIST JAYMIE Attending Unavailable AICHHOLZ, DIABETES SOLUTIONS SPECIALIST JAYMIE Consulting Unavailable AICHHOLZ, DIABETES SOLUTIONS SPECIALIST JAYMIE Primary Care Unavailable LORI FROST Consulting Unavailable ALLAN ., DR JIM Mcdonnell Attending Unavailable ALLAN ., DR JIM Mcdonnell Admitting Unavailable AICHHOLZ, DIABETES SOLUTIONS SPECIALIST JAYMIE Primary Care Unavailable AICHHOLZ, DIABETES SOLUTIONS SPECIALIST JAYMIE Primary Care Unavailable SAMSA ., MAGDALENA Admitting Unavailable SAMSA ., MAGDALENA Attending Unavailable SAMSA ., MAGDALENA Consulting Unavailable JERRELL ., DR JIM Mcdonnell Attending Unavailable JERRELL ., DR JIM Mcdonnell Admitting Unavailable ALLAN ., DR JIM Mcdonnell Consulting Unavailable AICHHOLHomer, DIABETES SOLUTIONS SPECIALIST JAYMIE Primary Care Unavailable AICHHOLZ, DIABETES SOLUTIONS SPECIALIST JAYMIE Admitting Unavailable AICHHOLZ, DIABETES SOLUTIONS SPECIALIST JAYMIE Attending Unavailable AICHHOLZ, DIABETES SOLUTIONS SPECIALIST JAYMIE Consulting Unavailable AICHHOLZ, DIABETES SOLUTIONS SPECIALIST JAYMIE Primary Care Unavailable Alphonse Damian Attending Unavailab le Alphonse Damian Admitting Unavailab le Jaymie Phoenix J Primary Care Unavailable AICHMADAY, JAYMIE Attending Unavailable AICMADAY, JAYMIE Attending Unavailable Aicholz [employer] ASSEMBLER, Jaymie Unavailable Allergies Allergy Classification Reported Allergen(s) Allergy Type Date of Onset Reaction(s) Facility (6 sources) Penicillins; Translations: [penicillins] Drug allergy 4 Dyspnea (finding), Weal (disorder), Hives, Shortness of breath, Swelling [facility] (2 sources) predniSONE; Translations: [prednisone] Drug Allergy Dyspnea (finding) [facility] (1 source) prednisoLONE Drug Allergy [facility] Repository (2 sources) Prednisone Propensity to adverse reactions 3 Itching [facility] Medications Current Medications Medication Drug Class(es) Dates Sig (Normalized) Sig (Original) [id number] 200 actuat albuterol 0.09 mg/actuat metered dose inhaler (2 sources) beta2-Adrenergic Agonist take 2 puff(s) by inhalation every six hours for wheezing albuterol HFA 90 mcg/act inhaler Inhale 2 puffs every 6 (six) hours if needed for shortness of breath or wheezing 0 Active amitriptyline hydrochloride 100 mg oral tablet (3 sources) Tricyclic Antidepressant Start: 01-22-2022 amitriptyline 100 mg oral tablet 50 mg = 0.5 tab(s), Oral, Once a day (at bedtime), Refills(s) 0 Start Date: 01/22/22 Status: Ordered take 1 tablet by mouth at bedtim e amitriptyline (Elavil) 50 MG tablet Take 50 mg by mouth at bedtime 0 Active atorvastatin 20 mg oral tablet (2 sources) HMG-CoA Reductase Inhibitor Start: 02-28-2023 End: 03-30-2023 take 1 tablet by mouth in the evening atorvastatin (Lipitor) 20 MG tablet Indications: Mixed hyperlipidemia (CMS/HCC) Take 1 tablet (20 mg) by mouth in the evening 30 tablet 2 02/28/2023 03/30/2023 Active 120 actuat budesonide 0.16 mg/actuat / formoterol fumarate 0.0048 mg/actuat / glycopyrrolate 0.009 mg/actuat metered dose inhaler (2 sources) Corticosteroid, beta2-Adrenergic Agonist Start: 09-29-2022 take 2 puff(s) by inhalation in the morning Breztri Aerosphere 160-9-4.8 MCG/ACT aerosol Inhale 2 puffs in the morning and 2 puffs before bedtime. 0 09/29/2022 Active cholecalciferol 0.125 mg oral tablet (2 sources) Vitamin D cholecalciferol (Vitamin D-3) 125 MCG (5000 UT) tablet as directed Orally 0 Active ibuprofen 800 mg oral tablet (2 sources) Nonsteroidal Anti-inflammatory Drug Start: 01-08-2023 take 1 tablet by mouth every eight hours as needed ibuprofen 800 MG tablet Take 800 mg by mouth every 8 (eight) hours if needed 0 01/08/2023 Active lamoTRIgine 100 mg oral tablet (5 sources) Mood Stabilizer, Anti-epileptic Agent Start: 01-22-2022 take 1 tablet by mouth once daily in the morning, then take 2 tablets by mouth once daily in the evening Lamictal 100 mg Tab 1 po QAM and 2 po QPM, Refills(s) 0 Start Date: 01/22/22 Status: Ordered take 1 tablet by mouth at bedtim e lamoTRIgine (LaMICtal) 200 MG tablet Take 200 mg by mouth at bedtime 0 Active lidocaine 0.05 mg/mg medicated patch (2 sources) Antiarrhythmic, Amide Local Anesthetic apply 1 dose transdermal route every twelve hours in the morning lidocaine (Lidoderm) 5 % patch Apply 1 patch topically in the morning. Remove & discard patch within 12 hours or as directed by . 0 Active meloxicam 15 mg oral tablet (3 sources) Nonsteroidal Anti-inflammatory Drug Start: 03-15-19 End: 04-14-19 24 take 1 tablet by mouth in the morning meloxicam (Mobic) 15 MG tablet Indications: Fibromyalgia Take 1 tablet (15 mg) by mouth in the morning. 30 tablet 5 03/15/2023 04/14/2023 Active Start: 01-22-2022 take 1 tablet by aaron th once daily meloxicam 15 mg Tab 15 mg = 1 tab(s), Oral, Daily, Refills(s) 0 Start Date: 01/22/22 Status: Ordered omeprazole 40 mg delayed release oral capsule (3 sources) Proton Pump Inhibitor Start: 01-22-2022 take 1 capsule by mouth once daily omeprazole 40 mg Cap-DR 40 mg = 1 cap(s), Oral, Daily, Refills(s) 0 Start Date: 01/22/22 Status: Ordered prazosin 2 mg oral capsule (3 sources) alpha-Adrenergic Lenora Start: 01-22-2022 take 1 capsule by mouth at bedtime prazosin 2 mg oral capsule 2 mg = 1 cap(s), Oral, Bedtime, Refills(s) 0 Start Date: 01/22/22 Status: Ordered pregabalin 100 mg oral capsule (3 sources) Start: 01-06-2023 take 1 capsule by mouth twice daily pregabalin (Lyrica) 100 MG capsule Indications: Fibromyalgia TAKE 1 CAPSULE BY MOUTH TWICE DAILY 60 capsule 5 01/06/2023 Active Start: 01-22-2022 take 1 capsule by mo [facility] twice daily pregabalin 100 mg Cap 100 mg = 1 cap(s), Oral, BID, Refills(s) 0 Start Date: 01/22/22 Status: Ordered propranolol hydrochloride 40 mg oral tablet (3 sources) beta-Adrenergic Lenora Start: 01-06-2023 take 1 tablet by mouth twice daily propranolol (Inderal) 40 MG tablet Indications: Personal history of other diseases of the nervous system and sense organs TAKE 1 TABLET BY MOUTH TWICE DAILY 60 tablet 5 01/06/2023 Active Start: 01-22-2022 take 1 tablet by aaron twice daily propranolol 40 mg Tab 40 mg = 1 tab(s), Oral, BID, Refills(s) 0 Start Date: 01/22/22 Status: Ordered QUEtiapine 100 mg oral tablet (5 sources) Atypical Antipsychotic Start: 01-22-2022 SEROque l 100 mg Tab 1 tabs QAM and 4 tabs qpm, Refills(s) 0 Start Date: 01/22/22 Status: Ordered take 1 tablet by mouth at bedtim e QUEtiapine (SEROquel) 400 MG tablet Take 400 mg by mouth at bedtime 0 Active simvastatin 40 mg oral tablet (1 source) HMG-CoA Reductase Inhibitor Start: 01-22-2022 take 1 tablet by mouth once daily at bedtime simvastatin 40 mg Tab 40 mg = 1 tab(s), Oral, Once a day (at bedtime), Refills(s) 0 Start Date: 01/22/22 Status: Ordered spironolactone 50 mg oral tablet (3 sources) Aldosterone Antagonist Start: 03-15-2023 End: 04-14-2023 take 1 tablet by mouth in the morning spironolactone (Aldactone) 50 MG tablet Indications: Localized edema Take 1 tablet (50 mg) by mouth in the morning. 30 tablet 5 03/15/2023 04/14/2023 Active Start: 01-22-2022 take 1 tablet by aaron th once daily Aldactone 50 mg Tab 50 mg = 1 tab(s), Oral, Daily, Refills(s) 0 Start Date: 01/22/22 Status: Ordered tiZANidine 4 mg oral tablet (3 sources) Central alpha-2 Adrenergic Agonist Start: 01-22-2022 take 1 tablet by mouth every eight hours as needed for muscle spasms tiZANidine 4 mg Tab 4 mg = 1 tab(s), Oral, q8hr, PRN Spasm, Refills(s) 0 Start Date: 01/22/22 Status: Ordered take 1 tablet by mouth once dheeraj y tiZANidine (Zanaflex) 4 MG tablet Take 4 mg by mouth 1 (one) time each day 0 Active Vitamin D3 5000 intl units (125 mcg) oral tab (1 source) Start: 01-22-2022 take 1 tablet by mouth once daily Vitamin D3 5000 intl units (125 mcg) oral tab 125 mcg = 1 tab(s), Oral, Daily, Refills(s) 0 Start Date: 01/22/22 Status: Ordered Problems Active Problems Problem Classification Problem Date Documented Da te Episodic/Chronic Anxiety disorders (3 sources) Mixed anxiety and depressive disorder; Translations: [Anxiety disorder, unspecified] Onset: 15-2022 Chronic Chronic obstructive pulmonary disease and bronchiectasis (8 sources) Chronic obstructive pulmonary disease, unspecified; Translations: [Chronic obstructive lung disease] Onset: 3 Chronic Chronic obstructive pulmonary disease and bronchiectasis (1 source) Bronchitis, not specified as acute or chronic; Translations: [BRONCHITIS NOT SPEC ACUTE/CHRON] Onset: 3 Episodic Deficiency and other anemia (3 sources) Acute megaloblastic anemia; Translations: [Other megaloblastic anemias, not elsewhere classified] Onset: 4 01-22-2022 Episodic Deficiency and other anemia (1 source) Other megaloblastic anemias, not elsewhere classified; Translations: [OTHER MEGALOBLASTIC ANEMIAS NEC] Onset: 3 Episodic Diabetes mellitus without complication (4 sources) Hyperglycemia, unspecified; Translations: [HYPERGLYCEMIA UNSPECIFIED] Onset: 3 Episodic Disorders of lipid metabolism (6 sources) Hyperlipidemia; Translations: [Hyperlipidemia, unspecified] Onset: 3 Resolved: 4 01-22-2022 Chronic Esophageal disorders (4 sources) Gastroesophageal reflux disease; Translations: [Gastro-esophageal reflux disease without esophagitis] Onset: 2 01-22-2022 Chronic Essential hypertension (10 sources) Essential hypertension; Translations: [Essential (primary) hypertension] Onset: 2 Resolved: 4 01-22-2022 Chronic Headache; including migraine (5 sources) Migraine; Translations: [Migraine without aura] Onset: 3 Resolved: 4 01-22-2022 Chronic Joint disorders and dislocations; trauma-related (4 sources) Derangement of left knee; Translations: [Unspecified internal derangement of left knee] Onset: 4 02-18-2023 Chronic Nutritional deficiencies (4 sources) Vitamin D deficiency; Translations: [Vitamin D deficiency, unspecified] Onset: 3 01-22-2022 Chronic Nutritional deficiencies (3 sources) Cobalamin deficiency; Translations: [Deficiency of other specified B group vitamins] Onset: 4 01-22-2022 Episodic Open wounds of extremities (4 sources) Open wound of left foot; Translations: [Unspecified open wound, left foot, initial encounter] Onset: 3 Resolved: 3 01-26-2023 Episodic Osteoarthritis (2 sources) Osteoarthritis of knee; Translations: [Osteoarthritis of knee, unspecified] Onset: 4 02-18-2023 Chronic Other and unspecified benign neoplasm (2 sources) Hyperplastic polyp of intestine; Translations: [Polyp of colon] Onset: 4 02-18-2023 Episodic Other bone disease and musculoskeletal deformities (3 sources) Osteopenia; Translations: [Other specified disorders of bone density and structure, unspecified site] Onset: 4 01-22-2022 Episodic Other connective tissue disease (5 sources) Fibromyalgia; Translations: [Fibromyalgia] Onset: 2 Resolved: 4 01-22-2022 Episodic Other connective tissue disease (1 source) Other muscle spasm; Translations: [OTHER MUSCLE SPASM] Onset: 3 Episodic Other ear and sense organ disorders (3 sources) Hearing loss; Translations: [Unspecified hearing loss, unspecified ear] Onset: 4 01-22-2022 Chronic Other gastrointestinal disorders (1 source) Abnormal feces; Translations: [Other fecal abnormalities] Onset: 2 Episodic Other lower respiratory disease (1 source) Shortness of breath; Translations: [SHORTNESS OF BREATH] Onset: 3 Episodic Other nervous system disorders (1 source) Other chronic pain; Translations: [OTHER CHRONIC PAIN] Onset: 3 Chronic Other nutritional; endocrine; and metabolic disorders (7 sources) Body mass index 40+ - severely obese; Translations: [Body mass index (BMI) 40.0-44.9, adult] Onset: 4 02-03-2022 Chronic Other nutritional; endocrine; and metabolic disorders (3 sources) Obesity; Translations: [Obesity, unspecified] Onset: 4 01-22-2022 Chronic Other nutritional; endocrine; and metabolic disorders (1 source) Obesity, unspecified; Translations: [OBESITY UNSPECIFIED] Onset: 3 Chronic Other nutritional; endocrine; and metabolic disorders (2 sources) Severe obesity; Translations: [Morbid (severe) obesity due to excess calories] Onset: 3 01-26-2023 Chronic Other screening for suspected conditions (not mental disorders or infectious disease) (5 sources) Stool DNA-based colorectal cancer screening positive; Translations: [Other fecal abnormalities] Onset: 2 02-03-2022 Episodic Residual codes; unclassified (1 source) Sleep apnea, unspecified; Translations: [SLEEP APNEA UNSPECIFIED] Onset: 2 Chronic Residual codes; unclassified (4 sources) Bilateral lower limb edema; Translations: [Localized edema] Onset: 3 03-16-2023 Episodic Spondylosis; intervertebral disc disorders; other back problems (10 sources) Spondylosis without myelopathy or radiculopathy, lumbar region; Translations: [Other intervertebral disc degeneration, lumbar region] Onset: 2 Chronic Spondylosis; intervertebral disc disorders; other back problems (3 sources) Chronic low back pain; Translations: [Chronic lumbar pain] Onset: 4 01-22-2022 Episodic Substance-related disorders (5 sources) Nicotine dependence, cigarettes, uncomplicated; Translations: [Tobacco dependence syndrome] Onset: 3 03-16-2023 Chronic Unclassified (4 sources) LOW BACK PAIN, [...] [ADVRS EFF GLUCOCORT SYN ANALOG INIT] Onset: 2 Episodic Other aftercare (1 source) Other intermediate designer (current) drug therapy; Translations: [OTH SURGICAL FIRST ASSISTANT CURRENT DRUG THERAPY] Onset: 3 Episodic Other and unspecified benign neoplasm (1 source) Polyp of colon; Translations: [POLYP OF COLON] Onset: 3 Episodic Other connective tissue disease (1 source) Fibromyalgia; Translations: [FIBROMYALGIA] Onset: 3 Episodic Other gastrointestinal disorders (4 sources) Other fecal abnormalities; Translations: [OTHER FECAL ABNORMALITIES] Onset: 3 Episodic Other inflammatory condition of skin (4 sources) Pruritus, unspecified; Translations: [PRURITUS UNSPECIFIED] Onset: 2 Episodic Other liver diseases (2 sources) Aspartate aminotransferase serum level raised; Translations: [Elevated SGOT (AST)] Onset: 2 02-18-2023 Episodic Other non-traumatic joint disorders (3 sources) Pain in left knee; Translations: [Pain in joint, lower leg] Onset: 2 Resolved: 4 03-16-2023 Episodic Other skin disorders (2 sources) Decorative tattoo; Translations: [Other specified disorders of pigmentation] Onset: 2 Resolved: 4 03-16-2023 Episodic Other upper respiratory infections (2 sources) Acute sinusitis; Translations: [Other acute sinusitis] Onset: 3 Resolved: 4 03-16-2023 Episodic Residual codes; unclassified (3 sources) Edema of lower extremity; Translations: [Localized edema] Onset: 4 Resolved: 4 01-22-2022 Episodic Residual codes; unclassified (3 sources) Tobacco user; Translations: [Tobacco use] Onset: 4 Resolved: 4 01-22-2022 Episodic Residual codes; unclassified (1 source) Acquired absence of both cervix and uterus; Translations: [ACQUIRED ABSENCE BOTH CERVIX AND UTERUS] Onset: 3 Episodic Residual codes; unclassified (1 source) Tobacco use; Translations: [TOBACCO USE] Onset: 2 Episodic Residual codes; unclassified (1 source) Insomnia, unspecified; Translations: [INSOMNIA UNSPECIFIED] Onset: 2 Episodic Residual codes; unclassified (2 sources) Exposure to carbon monoxide; Translations: [Contact with and (suspected) exposure to other hazardous substances] Onset: 4 Resolved: 4 03-16-2023 Episodic Screening and history of mental health and substance abuse codes (2 sources) Tobacco use and exposure - finding; Translations: [Personal history of nicotine dependence] Onset: 2 Resolved: 4 03-16-2023 Episodic Unclassified (1 source) LOW BACK PAIN, UNSPECIFIED; Translations: [LOW BACK PAIN, UNSPECIFIED] Onset: 3 Unclassified (1 source) CONTACT W/AND (SUSP) EXPOS COVID-19; Translations: [CONTACT W/AND (SUSP) EXPOS COVID-19] Onset: 3 Results Test Name Value Interpretation Reference Range Facility BLOOD GASES BTYon 07-08-2022 02 MODE ROOM AIR Normal [facility] Comment on above: Performed By: #### A BG ####[facility] [address] [place] [address]Dr. Phani El ALLENS TEST Positive Normal [facility] Comment on above: Performed By: #### A BG ####[facility] [address] [place] [address]Dr. Phani El Base excess Calc (Bld) [Moles/Vol] 1.4 mmol/L Normal -2.0-2.0 [facility] Comment on above: Performed By: #### A BG ####[facility] [address] [place] [address]Dr. Phani El BIPAP PRESSURE Normal The [facility] Comment on above: Performed By: #### A BG ####[facility] [address] [place] [address]Dr. Phani El CPAP Normal [facility] Comment on above: Performed By: #### A BG ####[facility] [address] [place] [address]Dr. Phani El FIO2 Normal [facility] Comment on above: Performed By: #### A BG ####[facility] [address] [place], [place] [address]DrCindy El HCO3 (Bld) [Moles/Vol] 26.2 mmol/L Critically high 22.0-26.0 [facility] Comment on above: Performed By: #### A BG ####[facility] [address] [place] [address]Dr. Phani El LPM Normal [facility] Comment on above: Performed By: #### A BG ####[facility] [address] [place] [address]Dr. Phani El MINUTE VOLUME Normal [facility] Comment on above: Performed By: #### A BG ####[facility] [address] [place] [address]Dr. Phani El Oxygen (Bld) [Partial pressure] 56.1 mm[Hg] Critically low 80.0-100.0 [facility] Comment on above: Performed By: #### A BG ####[facility] [address] [place], [place] [address]Dr. Phani El Oxygen saturation in Blood 92.0 % Critically low 95.0-100.0 [facility] Comment on above: Performed By: #### A BG ####[facility] [address] [place], [place] [address]Dr. Phani El PCO2 42.6 mmHg Normal 35.0-45.0 [facility] Comment on above: Performed By: #### A BG ####[facility] [address] [place], [place] [address]Dr. Phani El PEEP Normal [facility] Comment on above: Performed By: #### A BG ####[facility] [address] [place] [address]Dr. Phani El pH (Bld) 7.398 [pH] Normal 7.350-7.450 [facility] Comment on above: Performed By: #### A BG ####[facility] [address] [place] [address]Dr. Phani El PIP Normal [facility] Comment on above: Performed By: #### A BG ####[facility] [address] [place] [address]Dr. Phani El PS Normal [facility] Comment on above: Performed By: #### A BG ####[facility] [address] [place], [place] [address]Kn. Phani El PUNCTURE SITE RR Normal [facility] Comment on above: Performed By: #### A BG ####[facility] [address] [place], [place] [address]Gi. Phani El RATE Normal [facility] Comment on above: Performed By: #### A BG ####[facility] [address] [place], [place] [address]Zg. Phani Nikko VENT MODE Normal [facility] Comment on above: Performed By: #### A BG ####[facility] [address] [place], [place] [address]Yl. Phani Nikko [place] Normal [facility] Comment on above: Performed By: #### A BG ####[facility] [address] [place], [place] [address]Rb. Phani Nikko ECHOCARDIO M/2D COMPLETEon 0 07-08-2022 ECHOCARDIO M/2D COMPLETE Patient: FRANKY SRINIVASAN I. Exam Date: 07/08/2022 : 1965 Gender:F Ordering : DR. MAGDALENA DOWNING . Admission #: [id number] Family : MEREDITH PHOENIX [employer] SPECIALIST Order #: [id number] CLICK HERE TO VIEW EXAM ECHOCARDIOGRAM REPORT [...] Garcia M.D. on 07/08/2022 at 18:14 Normal [facility] CT LUNG CANCER SCREENINGon 0 05-29-2022 CT [...] MELISSA ROSENBERG Date: 2022-05-29 09:36 Normal [facility] CBC AUTO DIFFon 05-05-2022 BASO # 0.1 103/ul Normal 0.0-0.1 [facility] Comment on above: Performed By: #### C BC #### [facility] [address] [address] [address] Phani El Basophils/100 WBC (Bld) 0.8 % Normal 0.2-2.0 [facility] Comment on above: Performed By: #### C BC #### [facility] [address] [address] [address] Phani El EO # 0.1 103/ul Normal 0.0-0.7 [facility] Comment on above: Performed By: #### C BC #### [facility] [address] [address] [address] Phani El Eosinophils/100 WBC (Bld) 2.0 % Normal 0.9-7.0 [facility] Comment on above: Performed By: #### C BC #### [facility] [address] [address] [address] Phani El Erythrocyte distribution width (RBC) [Ratio] 14.0 % Normal 11.0-15.0 [facility] Comment on above: Performed By: #### C BC #### [facility] [address] [address] [address] Phani El Hematocrit (Bld) [Volume fraction] 48.7 % Critically high 36.0-48.0 [facility] Comment on above: Performed By: #### C BC #### [facility] [address] [address] [address] Phani El Hemoglobin (Bld) [Mass/Vol] 15.9 g/dL Normal 12.0-16.0 [facility] Comment on above: Performed By: #### C BC #### [facility] [address] [address] [address] Phnai El IG # 0.05 10e3/ul Critically high 0.00-0.03 [facility] Comment on above: Performed By: #### C BC #### [facility] [address] [place] [address] Dr. Phani El IG % 0.8 % Critically high 0.0-0.5 [facility] Comment on above: Performed By: #### C BC #### [facility] [address] [place] [address] Dr. Phani El LYMPH # 1.9 103/ul Normal 1.2-3.8 [facility] Comment on above: Performed By: #### C BC #### [facility] [address] [place] [address] Dr. Phani El Lymphocytes/100 WBC (Bld) 30.1 % Normal 20.5-60.0 [facility] Comment on above: Performed By: #### C BC #### [facility] [address] [place] [address] Dr. Phani El MANUAL DIFF REQ NO Normal [facility] Comment on above: Performed By: #### C BC #### [facility] [address] [place] [address] Dr. Phani El MCH (RBC) [Entitic mass] 32.9 pg Normal 26.7-34.0 [facility] Comment on above: Performed By: #### C BC #### [facility] [address] [place] [address] Dr. Phani El MCHC (RBC) [Mass/Vol] 32.6 g/dL Normal 29.9-35.2 [facility] Comment on above: Performed By: #### C BC #### [facility] [address] [place] [address] Dr. Phani El MCV (RBC) [Entitic vol] 100.8 fL Critically high 81.0-99.0 [facility] Comment on above: Performed By: #### C BC #### [facility] [address] [place] [address] Dr. Phani El MONO # 0.5 103/ul Normal 0.3-0.8 [facility] Comment on above: Performed By: #### C BC #### [facility] [address] [address] [address] Phani El Monocytes/100 WBC (Bld) 7.2 % Normal 1.7-12.0 [facility] Comment on above: Performed By: #### C BC #### [facility] [address] [place] [address] Dr. Phani El NEUT # 3.8 103/ul Normal 1.4-6.5 [facility] Comment on above: Performed By: #### C BC #### [facility] [address] [place] [address] Dr. Phani El Neutrophils/100 WBC (Bld) 59.1 % Normal 43.0-75.0 [facility] Comment on above: Performed By: #### C BC #### [facility] [address] [place] [address] Dr. Phani El Platelet mean volume (Bld) [Entitic vol] 11.0 fL Normal 9.5-13.5 [facility] Comment on above: Performed By: #### C BC #### [facility] [address] [place] [address] Dr. Phani El PLT 167 103/ul Normal 150-450 [facility] Comment on above: Performed By: #### C BC #### [facility] [address] [place] [address] Dr. Phani El RBC 4.83 106/ul Normal 4.20-5.40 [facility] Comment on above: Performed By: #### C BC #### [facility] [address] [place] [address] Dr. Phani El WBC 6.4 103/ul Normal 4.0-11.0 [facility] Comment on above: Performed By: #### C BC #### [facility] [address] [place] [address] Dr. Phani El GLYCOHEMOGLOBIN A1Con 2022 ADA RECOMMENDATION SEE BELOW Normal [facility] Comment on above: Result Comment: ADA RECOMMENDED LIMIT 4.0 - 6.0 ADA THERAPEUTIC TARGET < 7.0 ACTION SUGGESTED > 7.0 Performed By: #### A 1C ####[facility] [address] [id number] Phani El Glucose [Mass/Vol] 114 mg/dL Normal [facility] Comment on above: Performed By: #### A 1C ####[facility] [address] [id number][address] Phani El HbA1c (Bld) [Mass fraction] 5.6 % Normal 4.5-6.2 [facility] Comment on above: Performed By: #### A 1C ####[facility] [address] [id number]. Phani El LIPID PROFILEon 05-05-2022 CHOL-HDL RATIO NORM SEE BELOW Normal [facility] Comment on above: Result Comment: 3.3 - 4.4 LOW RISK 4.4 - 7.1 AVERAGE RISK 7.1 - 11.0 MODERATE RISK >11.0 HIGH RISK Performed By: #### C MP, LIPID #### [facility] [address] [address] [address] Phani El Cholesterol [Mass/Vol] 178 mg/dL Normal <=200 [facility] Comment on above: Performed By: #### C MP, LIPID #### [facility] [address] [address] [address] Phani El Cholesterol in HDL [Mass/Vol] 54 mg/dL Normal 40-60 [facility] Comment on above: Performed By: #### C MP, LIPID #### [facility] [address] [address] [address] Phani El Cholesterol in LDL [Mass/Vol] 86.6 mg/dL Normal [facility] Comment on above: Performed By: #### C MP, LIPID #### [facility] [address] [address] [address] Phani El Cholesterol.total/Ch olesterol in HDL [Mass ratio] 3.3 {ratio} Normal [facility] Comment on above: Performed By: #### C MP, LIPID #### [facility] [address] [address] [address] Phani El HDL NORMAL > or = 60 mg/dl - LO W CARDIOVASCULAR RISK <40 mg/dl - HIGH CARDIOVASCULAR RISK Normal [facility] Comment on above: Performed By: #### C MP, LIPID #### [facility] [address] [address] [address] Phani El LDL CALC NORMAL SEE BELOW Normal [facility] Comment on above: Result Comment: <100 mg/dl OPTIMAL 100 - 129 mg/dl NEAR OR ABOVE OPTIMAL 130 - 159 mg/dl BORDERLINE HIGH 160 - 189 mg/dl HIGH >190 mg/dl VERY HIGH Performed By: #### C MP, LIPID #### [facility] [address] [address] [address] Phani El Triglyceride [Mass/Vol] 187 mg/dL Critically high <=150 [facility] Comment on above: Performed By: #### C MP, LIPID #### [facility] [address] [address] [address] Phani El VLDL CALC 37.4 mg/dL Normal [facility] Comment on above: Performed By: #### C MP, LIPID #### [facility] [address] [address] [address] Phani El PROF 14(COMP METB)on 023 Albumin [Mass/Vol] 3.6 g/dL Normal 3.4-5.0 [facility] Comment on above: Performed By: #### C MP, LIPID ####[facility] [address] [id number] Phani El Albumin/Globulin [Mass ratio] 1.1 {ratio} Normal [facility] Comment on above: Performed By: #### C MP, LIPID ####[facility] [address] [place], [place] [address]JpCindy El ALP [Catalytic activity/Vol] 91 U/L Normal 46-116 [facility] Comment on above: Performed By: #### C MP, LIPID ####[facility] [address] [id number] El ALT [Catalytic activity/Vol] 34 U/L Normal 14-59 [facility] Comment on above: Performed By: #### C MP, LIPID ####[facility] [address] [address]Dr. Loryzach El Anion gap [Moles/Vol] 11.6 mmol/L Normal [facility] Comment on above: Performed By: #### C MP, LIPID ####[facility] [address] [address]Dr. Phani Nikko AST [Catalytic activity/Vol] 18 U/L Normal 15-37 [facility] Comment on above: Performed By: #### C MP, LIPID ####[facility] [address] [address]Dr. Phani El Bilirubin [Mass/Vol] 0.6 mg/dL Normal 0.2-1.0 [facility] Comment on above: Performed By: #### C MP, LIPID ####[facility] [address] [place], [place] [address]Dr. Phani El Calcium [Mass/Vol] 9.2 mg/dL Normal 8.5-10.1 [facility] Comment on above: Performed By: #### C MP, LIPID ####[facility] [address] [place], [place] [address]Dr. Phani El Chloride [Moles/Vol] 106 mmol/L Normal 98-107 [facility] Comment on above: Performed By: #### C MP, LIPID ####[facility] [address] [address]Dr. Phani El CO2 [Moles/Vol] 32.3 mmol/L Critically high 21.0-32.0 [facility] Comment on above: Performed By: #### C MP, LIPID ####[facility] [address] [address]Dr. Phani El Creatinine [Mass/Vol] 1.04 mg/dL Critically high 0.55-1.02 [facility] Comment on above: Performed By: #### C MP, LIPID ####[facility] [address] [address]Dr. Phani El EGFR-AF SOUTH AFRICAN >60 Normal >=60 [facility] Comment on above: Performed By: #### C MP, LIPID ####[facility] [address] [address]Dr. Phani Nikko EGFR-NON AF SOUTH AFRICAN 54 mL/min/1.73m2 Critically low >=60 [facility] Comment on above: Performed By: #### C MP, LIPID ####[facility] [address] [address]Dr. Loryzach Nikko Globulin (S) [Mass/Vol] 3.4 g/dL Normal [facility] Comment on above: Performed By: #### C MP, LIPID ####[facility] [address] [address]Dr. Phani El Glucose [Mass/Vol] 124 mg/dL Critically high 74-106 [facility] Comment on above: Performed By: #### C MP, LIPID ####[facility] [address] [address]Dr. Phani El Potassium [Moles/Vol] 3.9 mmol/L Normal 3.5-5.1 [facility] Comment on above: Performed By: #### C MP, LIPID ####[facility] [address] [place], [place] [address]Dr. Phani El Protein [Mass/Vol] 7.0 g/dL Normal 6.4-8.2 [facility] Comment on above: Performed By: #### C MP, LIPID ####[facility] [address] [address]Dr. Loryzach El Sodium [Moles/Vol] 146 mmol/L Critically high 136-145 [facility] Comment on above: Performed By: #### C MP, LIPID ####[facility] [address] [address]Dr. Phani El Urea nitrogen [Mass/Vol] 14.0 mg/dL Normal 7.0-18.0 [facility] Comment on above: Performed By: #### C MP, LIPID ####[facility] [address] [address]Dr. Phani El Urea nitrogen/Creatinine [Mass ratio] 13.5 mg/mg Normal [facility] Comment on above: Performed By: #### C MP, LIPID ####[facility] [address] [place], [place] [address]FvDr. Phani El VITAMIN B12on 05-05-2022 Cobalamin (Vitamin B12) [Mass/Vol] 321.0 pg/mL Normal 193.0-986.0 [facility] Comment on above: Performed By: #### V ITAD, VITB12 #### [facility] [address] [place], [place] [address] Dr. Phani El VITAMIN D 25 OHon 05-05-2022 VIT D 25-OH 58.7 ng/mL Normal [facility] Comment on above: Performed By: #### V ITAD, VITB12 #### [facility] [address] [address] [address] Phani El VIT D RANGES SEE BELOW Normal [facility] Comment on above: Result Comment: <20 ng/mL Vit D deficient 20 - <30 ng/mL Vit D insufficient 30 - 100 ng/mL Vit D sufficient >100 ng/mL Potential Toxicity Performed By: #### V ITAD, VITB12 #### [facility] [address] [address] [address] Phani El XR CHEST 2 Von [...] LORI FROST Date: 2022-05-05 10:05 Normal [facility] Ambulatory Visit Summaryon 0 03-24-2022 Ambulatory Visit Summary QUYENSTIVEN MERCADOBRADY Greenberg :1965 Visit Date:03/24/2022 Ambulatory Visit Instructions Your Diagnosis Hyperplastic polyp of sigmoid colon Your Care Team Attending Physician - NABIL AMADOR, Bryson Hernandez Primary Care Physician - AICHJAYMIE NASSAR CNP This Is Your Medications List Contact [...] Vitamin B12 deficiency Vitamin D deficiency Normal [facility] General Surgery Office/Clini c Noteon 03-24-2022 General [...] inactivated - Not Given Patient Refuses Normal [facility] Comment on above: Result Comment: Elec tronically Signed By: NABIL AMADOR, Bryson Steinberg\Date and Time Signed: 03/24/22 13:12 EST Reminderson 03-24-2022 Reminders - From: Kristine [facility] LPN To: N - Clinical; Sent: 03/24/2022 13:05:34 EST Show up: 01/26/2032 07:00:00 EST Subject: colonoscopy recall Due Date/Time: 02/26/2032 07:00:00 EST Reminder/Recall Patient is due for screening colonoscopy 02/26/2032. Normal [facility]on 02-10 SARS-CoV-2 (COVID-19) RNA MARISOL+probe Ql (Unsp spec) Detected Abnormal NOT DETECTED [facility] Comment on above: Result Comment: This test is not yet approved or cleared by the [place] FDA. When there are no FDA-approved or cleared tests available, and other criteria are met, FDA can make tests available under an emergency access mechanism called an Emergency Use Authorization (EUA). The EUA for this test is supported by the Hoist Operator of Health and Human Service's (HHS's) declaration [...] longer be used). Performed By: #### C VDTBH #### [facility] [address] [address] [address] Phani El INFLUENZA A AND B AGon 03-10 INFLUANEGH SEE BELOW Normal [facility] Comment on above: Result Comment: Nega tive for Flu A protein angiten. Infection due to Flu A cannot be ruled out. Flu A angiten in the sample may be below the detection limit of the test. Performed By: #### I NFLUAB ####[facility] [address] [place], [place] [address]Ru. Phani El INFLUBNEGH SEE BELOW Normal [facility] Comment on above: Result Comment: Nega tive for Flu B protein antigen. Infection due to Flu B cannot be ruled out. Flu B antigen in the sample may be below the detection limit of the test. Performed By: #### I NFLUAB ####[facility] [address] [place], [place] [address]Lc. Phani El INFLUENZA A AG Negative Normal NEGATIVE SEE COMMENT [facility] Comment on above: Performed By: #### I NFLUAB ####[facility] [address] [place], [place] [address]Jd. Phani El INFLUENZA B AG Negative Normal NEGATIVE SEE COMMENT [facility] Comment on above: Performed By: #### I NFLUAB ####[facility] [address] [place], [place] [address]Of. Phani El [facility] PCR ([facility]on 02-09 SARS-CoV-2 (COVID-19) RNA MARISOL+probe Ql (Unsp spec) Detected Abnormal NOT DETECTED [facility] Comment on above: Result Comment: This test is not yet approved or cleared by the [place] FDA. When there are no FDA-approved or cleared tests available, and other criteria are met, FDA can make tests available under an emergency access mechanism called an Emergency Use Authorization (EUA). The EUA for this test is supported by the Hoist Operator of Health and Human Service's declaration that [...] longer be used). Performed By: #### C VDTBH #### [facility] [address] [place], [place] [address] Dr. Phani El Pathology Noteon 02-27-2022 Pathology Note [id number]#1.0 0CD:127 Normal [facility] Outside Colonoscopyon 2022 Outside Colonoscopy [id number]#1.0 0CD:127 Normal [facility] Reminderson 02-26-2022 Reminders - From: Krisitne Harrison LPN To: Kristine Harrison LPN; Sent: 02/26/2022 11:14:25 EST Show up: 05/18/2022 07:00:00 EDT Subject: Ambulatory Reminder Due Date/Time: 05/27/2022 07:00:00 EDT Reminder/Recall log in to extra lap top in [facility] to keep account active Normal [facility] Lab Reportson 02-23-2022 Lab Reports [id number]#1.0 0CD:127 Normal [facility] Covid-19 PCR ([facility])on 02-08 SARS-CoV-2 (COVID-19) RNA MARISOL+probe Ql (Unsp spec) Not detected Normal NOT DETECTED [facility] Comment on above: Result Comment: This test is not yet approved or cleared by the [place] FDA. When there are no FDA-approved or cleared tests available, and other criteria are met, FDA can make tests available under an emergency access mechanism called an Emergency Use Authorization (EUA). The EUA for this test is supported by the Hoist Operator of Health and Human Service's (HHS's) declaration [...] consistent with SARS-CoV-2. Performed By: #### C VDTB ####[facility] [address] [place], [place] [address]Vr. Phani El Pre-Certification Formon Pre-Certification Form [id number]. 00CD:127 Normal [facility] Consent for Procedure/Surger yon 02-05-2022 Consent for Procedure/Surgery [id number] 0CD:127 Normal [facility] Formson 02-05-2022 Forms [id number]#1.0 0CD:127 Normal [facility] Physician Referralon 022 Physician Referral [id number] 0CD:127 Normal [facility] MRI Knee w/o Lefton 12-26-19 MRI Knee [...] by Jason Sanchez on 12/25/2021 1505 Normal [facility] Cleaner Signs MRI LSPINE WO CONon 12-05-19 MRI LSPINE [...] by: NADINE GRANT Date: 2021-12-04 17:54 Normal [facility] XR LSPINE 2_3 VIEWSon 2021 XR [...] by: NADINE GRANT Date: 2021-09-30 07:20 Normal [facility] MRI Knee w/o Lefton 07-30-19 22 [...] by Robby Diaz on 07/30/2021 1316 Normal [facility] Cleaner Signs Vital Signs Date Time Vital Sign Value Performing Clinician Facility 03-16-2023 13:35-0500 Body height 165.1 cm Jaymie Phoenix [employer] Work Phone: [facility] 03-16-2023 13:35-0500 Body mass index (BMI) [Ratio] 41.6 kg/m2 Jaymie Phoenix [employer] Work Phone: [facility] 03-16-2023 13:35-0500 Body temperature 98.4 [degF] Jaymie Phoenix [employer] Work Phone: [facility] 03-16-2023 13:35-0500 Body weight 113.4 kg Jaymie Phoenix [employer] Work Phone: [facility] 03-16-2023 13:35-0500 Diastolic blood pressure 72 mm[Hg] Jaymie Phoenix [employer] Work Phone: [facility] 03-16-2023 13:35-0500 Heart rate 77 /min Jaymie Phoenix [employer] Work Phone: [facility] 03-16-2023 13:35-0500 Respiratory rate 18 /min Jaymie Phoenix [employer] Work Phone: [facility] 03-16-2023 13:35-0500 SaO2% (BldA) [Mass fraction] 95 % Jaymie Phoenix [employer] Work Phone: [facility] 03-16-2023 13:35-0500 Systolic blood pressure 112 mm[Hg] Jaymie Phoenix [employer] Work Phone: [facility] 02-03-2022 13:27-0500 Blood Pressure Location Bryson SAMPSON General [facility] 02-03-2022 13:27-0500 Diastolic blood pressure 80 mm[Hg] Bryson SAMPSON [facility] 02-03-2022 13:27-0500 Heart rate 72 /min Bryson RACHELL [facility] 02-03-2022 13:27-0500 Respiratory rate 16 /min Bryson SAMPSON [facility] 02-03-2022 13:27-0500 Systolic blood pressure 126 mm[Hg] Bryson SAMPSON General [facility] Encounters Encounter Date Encounter Type Care Provider Facility Start: 03-16-2023 End: 03-16-2023 ambulatory JAYMIE PHOENIX Not Available Start: 03-16-2023 End: 03-16-2023 Office outpatient visit 25 minutes Jaymie Phoenix [employer] Work Phone: [facility] Comment on above: COPD mixed type (CMS /HCC) (Primary Dx); Tobacco dependence; BMI 40.0-44.9, adult (CMS/HCC); Body mass index [BMI] 40.0-44.9, adult (Z68.41); Primary hypertension (CMS/HCC); Bilateral lower extremity edema Start: 01-26-2023 End: 01-26-2023 ambulatory JAYMIE PHOENIX Not Available Start: 12-08-2022 ambulatory Alphonse Patton acility:[facility] Start: 07-08-2022 ambulatory MEREDITH PHOENIX Facil ity:[facility] Start: 05-29-2022 End: 05-30-2022 ambulatory MEREDITH PHOENIX Facility:[facility] Start: 05-05-2022 End: 05-06-2022 ambulatory MEREDITH PHOENIX Facility:[facility] Start: 04-30-2022 End: 05-01-[address] JIM ALLAN . Facility:[facility] Start: 03-31-2022 End: 03-31-[address] JIM ALLAN . Facility:[facility] Start: 03-27-[address] JIM ALLAN . Faci lity:[facility] Start: 03-24-2022 End: 03-25-2022 ambulatory Bryson SAMPSON Facility:[facility] Start: 03-17-2022 ambulatory Bryson SAMPSON Facility : [facility] Start: 03-10-2022 End: 03-10-2022 ambulatory MEREDITH HOLCOMB ALBAN Facility:[facility] Start: 03-02-2022 Encounter for preprocedural laboratory examination DR JIM ALLAN . [facility] Start: 02-28-2022 End: 03-01-2022 Encounter for preprocedural laboratory examination MEREDITH HOLCOMB ALBAN Facility:[facility] Start: 02-28-2022 End: 03-01-2022 ambulatory MEREDITH HOLCOMB ROSSANAHomer Facility:[facility] Start: 02-25-2022 End: 02-26-2022 ambulatory Bryson SAMPSON Facility:CD:[id number] Start: 02-21-2022 End: 02-22-[address] BRYSON SAMPSON . Facility:[facility] Start: 02-06-2022 End: 02-07-2022 ambulatory JENNY TOMPKINSIS . Facility:[facility] Start: 02-03-2022 End: 02-04-2022 ambulatory Tracy Saldaña Alban Facility:[facility] Start: 02-03-2022 End: 02-03-2022 Patient encounter procedure Bryson SAMPSON General Surgery N[facility]/Said Luz Start: 01-13-2022 End: 01-13-[address] JIM ALLAN . Facility:[facility] Start: 01-08-2022 End: 01-09-[address] JIM ALLAN . Facility:[facility] Start: 01-06-2022 ambulatory [facility] Start: 12-23-2021 End: 12-23-[address] JIM ALLAN . Facility:[facility] Start: 12-09-2021 End: 12-10-[address] JIM ALLAN . Facility:[facility] Start: 12-04-2021 End: 12-05-2021 ambulatory MEREDITH PHOENIX Facility:[facility] Start: 12-03-2021 End: 12-03-2021 ambulatory GLENROY BOWERS . Facility:[facility] Start: 10-10-2021 End: 10-30-2021 ambulatory MR DEMETRIUS MENDEZ . Facility:[facility] Start: 09-29-2021 End: 09-30-2021 ambulatory MEREDITH PHOENIX Facility:[facility] Start: 09-20-2021 End: 09-20-2021 ambulatory GLENROY BOWERS . Facility: Procedures Date Procedure Procedure Detail Performing Clinician section Bryson Saldaña Ligation of fallopian tube Leslie RACHELPiper Repair of meniscus Bryson HOWELL Total abdominal hyst erectomy with bilateral salpingo-oophorectomy Bryson SAMPSON Plan of Treatment Date Care Activity Detail Author Start: 04-06-2023 End: 04-06-2023 Patient encounter procedure 04/06/2023 1:40 PM EST Office Visit [facility] [address] [place] [address] Jaymie Pohenix, [employer] [address] [place] [id number] [facility] [facility] Immunizations Immunization Date Immunization Notes Care Provider Fa cility NEGATED: Highlighted row has not occurred!02-03-2022 influenza virus vaccine, unspecified formulation Bryson SAMPSON [facility] Payers Date Payer Category Payer Self-pay 2021 Medicare AETNA MEDICARE A DVANTAGE AETNA MEDICARE REPLACEMENT [id number] 2021-Present [address] [place] [id number]. [id number] 1965 Unknown [id number] 2.16.840.1.938904.3.579.2. 727 1965 Unknown [id number] 2.16.840.1.069728.3.579.2. 727 1965 Unknown [id number] 2.16.840.1.334630.3.579.2 72 1965 Unknown [id number] 2.16.840.1.998522.3.579.2 72 1963 Unknown [id number] 2.16.840.1.764468.3.579.2 72 1963 Unknown [id number] 2.16.840.1.047596.3.579.2 59 1963 Unknown [id number] 2.16.840.1.400080.3.579.2 59 1963 Unknown [id number] 2.16.840.1.796139.3.579.2 59 1963 Unknown [id number] 2.16.840.1.666704.3.579.2 59 1963 Unknown [id number] 2.16.840.1.234884.3.579.2 59 1963 Unknown [id number] 2.16.840.1.415984.3.579.2 59 1963 Unknown [id number] 2.16.840.1.846182.3.579.2 59 1963 Unknown [id number] 2.16.840.1.349114.3.579.2 59 1963 Unknown [id number] 2.16.840.1.437952.3.579.2. 59 1963 Unknown [id number] 2.16.840.1.214749.3.579.2 59 1963 Unknown [id number] 2.16.840.1.211991.3.579.2. 59 1963 Unknown [id number] 2.16.840.1.305682.3.579.2 593 1963 Unknown [id number] 2.16.840.1.576656.3.579.2. 593 1963 Unknown [id number] 2.16.840.1.145052.3.579.2. 593 1963 Unknown [id number] 2.16.840.1.228637.3.579.2. 593 1963 Unknown [id number] 2.16.840.1.418111.3.579.2. 593 1963 Unknown [id number] 2.16.840.1.492869.3.579.2. 593 1963 Unknown [id number] 2.16.840.1.397452.3.579.2. 593 1963 Unknown [id number] 2.16.840.1.714258.3.579.2. 593 1963 Unknown [id number] 2.16.840.1.158640.3.579.2. 593 1963 Unknown [id number] 2.16.840.1.291126.3.579.2. 593 1963 Unknown [id number] 2.16.840.1.094499.3.579.2. 593 1965 Unknown [id number] 2.16.840.1.285043.3.579.2. 1259 1959 Private Health Insurance [id number] Unknown [id number] 2.16.840.1.194555.3.579.2. 531 Social History Date Type Detail Facility Start: 02-03-2022 Tobacco smoking status Heavy t obacco smoker (finding) [facility] Tobacco smoking status Never [facility] Start: 03-16-2023 Sex Assigned At Female F [facility] Start: 01-26-2023 [facility] History of tobacco use Cigarette Smoker [facility] Start: 01-26-2023 End: 03-16-2023 Cigarettes smoked current (pack per day) - Reported 1 [facility] Start: 01-26-2023 Tobacco use and exposure Smokeless tobacco non-user [facility] Start: 03-16-2023 Alcohol intake Ex-drinker (finding) [facility] Start: 01-26-2023 Tobacco Comment 11-20 cigarettes/day [facility] Start: 01-26-2023 Alcohol Comment socially [facility] Start: 1965 Sex Assigned At Not on file [facility] Functional Status Date Assessment Result Facility 02-03-2022 Functional Status N/A [facility] Clinical Notes 12-09-2021 to 03-16-2023 Jaymie Phoenix NP - 03/16/2023 2:25 PM Ashok Phoenix NP - 03/16/2023 2:24 PM Ashok Phoenix NP - 03/16/2023 2:23 PM EDEL PASCUAL - 03/16/2023 1:20 PM EST Note Date & Type Note Facility 03-16-2023 History of Present illness Narrative Associated Problem(s): Bilateral lower extremity edema Just started on new dose of aldactone, fu in 6 weeks for recheck Associated Problem(s): COPD mixed type (CMS/HCC) Still w wheeze, continue breztri Needs to quit smoking Allergies to steroids Have her add in albuterol inhaler prn Associated Problem(s): Primary hypertension (CMS/HCC) At goal, no changes in doses Right ankle swelling even when during elevation Images from the original note were not included. Franky Srinivasan is a 57 y.o. female presents with chief complaint of No chief complaint on file. HPI: Following up with the wound center for left foot ulcer, is going to have vascular studies completed Feels as though she is doing well on breztri as well Edema Presents with chronic edema. The current episode started more than 1 year ago. The onset of the episode was gradual. These episodes happen throughout the day. The problem presents itself daily. The problem has been waxing and waning. The edema is present on the both side(s). Risk factors for edema include no known risk factors. Associated agents include calcium channel blockers and NSAID use. Associated symptoms include cough and fatigue. Pertinent negative symptoms include no abdominal pain, no abdominal swelling, no chest pain, no decreased urine volume, no fever, no nausea, no palpitations, no PND, no syncope and no vomiting. Treatments tried include diuretics. There has been mild improvement on treatment(s). SUBJECTIVE: MEDICATIONS: Current Outpatient Medications Medication Instructions albuterol HFA 90 mcg/act inhaler 2 puffs, Inhalation, Every 6 hours PRN amitriptyline (ELAVIL) 50 mg, Oral, Nightly atorvastatin (LIPITOR) 20 mg, Oral, Every evening Breztri Aerosphere 160-9-4.8 MCG/ACT aerosol 2 puffs, Inhalation, 2 times daily cholecalciferol (Vitamin D-3) 125 MCG (5000 UT) tablet as directed Orally ibuprofen 800 mg, Oral, Every 8 hours PRN lamoTRIgine (LAMICTAL) 100 mg, Oral, Daily lamoTRIgine (LAMICTAL) 200 mg, Oral, Nightly lidocaine (Lidoderm) 5 % patch 1 patch, Apply externally, Daily, Remove & discard patch within 12 hours or as directed by . meloxicam (MOBIC) 15 mg, Oral, Daily omeprazole (PRILOSEC) 40 mg, Oral, Daily prazosin (MINIPRESS) 2 mg, Oral, Nightly pregabalin (LYRICA) 100 mg, Oral, 2 times daily propranolol (INDERAL) 40 mg, Oral, 2 times daily QUEtiapine (SEROQUEL) 100 mg, Oral, Daily QUEtiapine (SEROQUEL) 400 mg, Oral, Nightly spironolactone (ALDACTONE) 50 mg, Oral, Daily tiZANidine (ZANAFLEX) 4 mg, Oral, Daily ALLERGIES: Allergies Allergen Reactions Penicillins Hives, Shortness of breath and Swelling Shortness of breath Prednisone Itching Itchy eyes and shortness of breath REVIEW OF SYMPTOMS: Review of Systems Constitutional: Positive for fatigue. Negative for appetite change, chills and fever. HENT: Negative for congestion, ear pain and sore throat. Eyes: Negative for pain, discharge, redness and visual disturbance. Respiratory: Positive for cough and wheezing. Negative for choking and shortness of breath. Cardiovascular: Positive for leg swelling. Negative for chest pain, palpitations, syncope and PND. Gastrointestinal: Negative for abdominal pain, blood in stool, constipation, diarrhea, nausea and vomiting. Genitourinary: Negative for decreased urine volume, difficulty urinating, dysuria and frequency. Musculoskeletal: Positive for arthralgias and myalgias. Negative for back pain and joint swelling. Skin: Positive for wound. Negative for rash. Neurological: Negative for dizziness, tremors, seizures, syncope and headaches. Psychiatric/Behavioral: Negative for behavioral problems, self-injury and suicidal ideas. The patient is nervous/anxious. Depression Hematological: Does not bruise/bleed easily. Endocrine: Negative for polydipsia, polyphagia and polyuria. Allergic/Immunologic: Negative for environmental allergies and food allergies. PAST MEDICAL HISTORY Past Medical History: Diagnosis Date Anxiety Bilateral lower extremity edema 01/26/2023 stable Class 3 severe obesity due to excess calories without serious comorbidity with body mass index (BMI) of 40.0 to 44.9 in adult ([facility]) 01/26/2023 COPD mixed type ([facility]) 01/26/2023 DENIES HX OF BLOOD BORNE DISEASES Depression ([facility]) Fibromyalgia Open wound of left foot 01/26/2023 Open wound of second toe 01/26/2023 Other acute sinusitis 01/26/2023 Primary hypertension ([facility]) 01/26/2023 Tobacco dependence 01/26/2023 Past Surgical History: Procedure Laterality Date SECTION, LOW TRANSVERSE x2 HYSTERECTOMY 08/2014 Total Laparoscopic KNEE SURGERY Left 09/02/2021 SCOPE - DR MAURICE TUBAL LIGATION Laparoscopic family history is not on file. She was adopted. OBJECTIVE: Visit Vitals BP 112/72 (BP Location: Left arm, Patient Position: Sitting, BP Cuff Size: Adult) Pulse 77 Temp 98.4 F (Temporal) Resp 18 Ht 5' 5 Wt 250 lb SpO2 95% BMI 41.60 kg/m Smoking Status Every Day BSA 2.28 m Physical Exam Vitals reviewed. Constitutional: General: She is not in acute distress. Appearance: Normal appearance. HENT: Head: Normocephalic and atraumatic. Right Ear: External ear normal. Left Ear: External ear normal. Nose: Nose normal. Mouth/Throat: Mouth: Mucous membranes are moist. Eyes: Extraocular Movements: Extraocular movements intact. Conjunctiva/sclera: Conjunctivae normal. Cardiovascular: Rate and Rhythm: Normal rate and regular rhythm. Pulses: Normal pulses. Heart sounds: Normal heart sounds. Pulmonary: Effort: Pulmonary effort is normal. No respiratory distress. Breath sounds: No rhonchi. Wheezes: exp. Abdominal: General: Bowel sounds are normal. There is no distension. Palpations: Abdomen is soft. There is no mass. Tenderness: There is no abdominal tenderness. Musculoskeletal: General: Normal range of motion. Cervical back: Normal range of motion and neck supple. Right lower leg: Edema (1+) present. Left lower leg: Edema (1+) present. Skin: General: Skin is warm and dry. Capillary Refill: Capillary refill takes 2 to 3 seconds. Findings: No rash. Neurological: General: No focal deficit present. Mental Status: She is alert and oriented to person, place, and time. Psychiatric: Mood and Affect: Mood normal. Behavior: Behavior normal. Thought Content: Thought content normal. Judgment: Judgment normal. ASSESSMENT AND PLAN: No follow-ups on file. Problem List Items Addressed This Visit Tobacco dependence Primary hypertension (CMS/HCC) At goal, no changes in doses Bilateral lower extremity edema - Primary Just started on new dose of aldactone, fu in 6 weeks for recheck COPD mixed type (CMS/HCC) Still w wheeze, continue breztri Needs to quit smoking Allergies to steroids Have her add in albuterol inhaler prn BMI 40.0-44.9, adult (CMS/HCC) Other Visit Diagnoses Body mass index [BMI] 40.0-44.9, adult (Z68.41) documented in this encounter [facility] 04-30-2022 Note CONSULTATION CONSULTATION DATE: 04/30/2022 TO: [...] office on an as needed basis. [facility] 02-25-2022 Note OPERATIVE NOTE OPERATION DATE: 02/25/2022 [...] good condition. CC: Patient's family physician [facility] 02-06-2022 Note CONSULTATION CONSULTATION DATE: 02/06/2022 HISTORY [...] followed up in the clinic thereafter. [facility] 02-03-2022 Note Chief Complaint consultation for positive [...] 30 days Tobacco (more content not included)... [facility] Comment on above: Result Comment: Elec tronically Signed By: NABIL AMADOR, Bryson Goldsmith.brent\Date and Time Signed: 02/03/22 13:53 EST 01-08-2022 Note CONSULTATION CONSULTATION DATE: 01/08/2022 HISTORY [...] followed up in the clinic thereafter. [facility] 12-09-2021 Note CONSULTATION CONSULTATION DATE: 12/09/2021 CHIEF [...] to proceed. CC: Jaymie Phoenix, MEREDITH [facility] Evaluation + Plan note No data available for this section [facility] Evaluation note Diagnosis COPD mixed type (CMS/HCC)- Primary Tobacco dependence Tobacco use disorder BMI 40.0-44.9, adult (CMS/HCC) Body mass index [BMI] 40.0-44.9, adult (Z68.41) Primary hypertension (CMS/HCC) Unspecified essential hypertension Bilateral lower extremity edema [facility] No data available for this section [facility] Progress note No data available for this [...] section and content) DATE CREATED AUTHOR 12/26/2021 [facility] Specialist DATE CREATED AUTHOR AUTHOR'S ORGANIZ ATION 03/25/2022 [facility] DATE CREATED AUTHOR AUTHOR'S ORGANIZ ATION 07/17/2022 [facility] DATE CREATED AUTHOR AUTHOR'S ORGANIZ ATION 02/20/2023 [facility] DATE CREATED AUTHOR AUTHOR'S ORGANIZ ATION 03/17/2023 [facility] Specialists [facility] Patient Care team informatio n (unrecognized section and content) [employer] Relationship Specialty Start Date End Date Jaymie Phoenix NP [address] [place] [address] Nurse Practitioner Family Medicine 01/26/23 FOR RECORDS PERTAINING TO PATIENTS WHO ARE [...] BE BASED ON THE PRIMARY CLINICAL RECORDS. [employer] [facility]. provides no warranty or guarantee of the accuracy or completeness of information in this document.
--- NOTE | 2023-03-24 13:03 | CA_ITS ---
The 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 - normal arterial evaluation of the lower extremities without hemodynamic impairment of the B/L lower extremities at rest (right LUH 1.11, left LUH 1.12) Electronically Signed On 03-24-2023 22:33:33 EST by NAPOLEON CANNON
== END 2023-03-24 12:01 | disposition home or self-care (01) ==
LOC: CARD 12:00
PROVIDERS: PCP Nurse Practitioner; Visit Provider Physician Assistant
DX: R09.89 Other specified symptoms and signs involving the circulatory and respiratory systems (principal)
CPT/HCPCS: 93923

== ENCOUNTER 2023-03-25 14:15 | Outpatient (OUT) | payer MEDICARE, SELFPAY ==
--- NOTE | 2023-03-25 14:20 | XR_ITS ---
The [address] [address] Patient Name: FRANKY SRINIVASAN MRN: [id number] date: 1965 Sex: F Assigned Patient Location: LAB Current Patient Location: LAB Accession/Order Number: [id number] Exam Date: 03/25/2023 14:25 Report Date: 03/25/2023 14:38 At the request of: AICHA LLANOS Procedure: XR chest 2V EXAMINATION: XR chest 2V HISTORY: Edema Of Right Lower Extremity R60.0 wheezing, shortness of breath COMPARISON: XR chest 01/08/2023 FINDINGS: LUNGS: Mild haziness within the lung bases partially obscuring the bronchovascular markings. Lungs are well expanded. VASCULATURE: No increased pulmonary vasculature. PLEURA: No pneumothorax, effusion, or pleural thickening. CARDIAC: Stable cardiomegaly. MEDIASTINUM: No visible mass or adenopathy. BONES: No fracture or visible bone lesion. OTHER: Negative. XR/XR chest 2V IMPRESSION: 1. Trace amount of bibasilar atelectasis versus infiltrates; new since prior study. Electronically authenticated by: MELISSA ROSENBERG Date: 03/25/2023 14:38
--- NOTE | 2023-03-25 14:21 | US_ITS ---
The [place] [id number] Patient Name: FRANKY SRINIVASAN MRN: [id number] date: 1965 Sex: F Assigned Patient Location: LAB Current Patient Location: LAB Accession/Order Number: [id number] Exam Date: 03/25/2023 14:30 Report Date: 03/25/2023 15:24 At the request of: AICHA LLANOS Procedure: US venous doppler LE RT EXAMINATION: US venous doppler LE RT HISTORY: Right Lower Extremity Edema R60.0 COMPARISON: No relevant comparison available. FINDINGS: REGION: Right lower extremity THROMBI: None. COMPRESSIBILITY: Normal compressibility. FLOW: Normal waveform and antegrade flow between 5 and 20 cm/s. OTHER: Subcutaneous edema. US/US venous doppler LE RT IMPRESSION: 1. No deep vein thrombus within the right lower extremity. Electronically authenticated by: MELISSA ROSENBERG Date: 03/25/2023 15:24
[2023-03-25 15:16] LABS: Basophils Percent Auto 0.5 % (0.2-2.0); Eosinophils Absolute Auto 0.1 10^3/uL (0.0-0.7); Eosinophils Percent Auto 1.5 % (0.9-7.0); Hematocrit 42.3 % (36.0-48.0); Hemoglobin 13.4 g/dL (12.0-16.0); Immature Granulocytes Abs Auto 0.02 10^3/uL (0.00-0.03); Immature Granulocytes Pct Auto 0.3 % (0.0-0.5); Lymphocytes Absolute Auto 1.9 10^3/uL (1.2-3.8); Lymphocytes Percent Auto 30.2 % (20.5-60.0); Mean Corpuscular HGB Conc 31.7 g/dL (29.9-35.2); Mean Corpuscular Hemoglobin 33.6 pg (26.7-34.0); Mean Platelet Volume 10.7 fL (9.5-13.5); Monocytes Absolute Auto 0.6 10^3/uL (0.3-0.8); Monocytes Percent Auto 9.3 % (1.7-12.0); Neutrophils Absolute Auto 3.6 10^3/uL (1.4-6.5); Neutrophils Percent Auto 58.2 % (43.0-75.0); Platelet Count 154 10^3/uL (150-450); Red Blood Count 3.99 10^6/uL (4.20-5.40); White Blood Count 6.2 10^3/uL (4.0-11.0)
[2023-03-25 15:45] LABS: Alanine Aminotransferase 36 U/L (14-59); Albumin Level 3.2 g/dL (3.4-5.0); Alkaline Phosphatase 92 U/L (46-116); Anion Gap 13.2; Aspartate Amino Transferase 23 U/L (15-37); BUN Creatinine Ratio 6.6; Bilirubin Total 0.7 mg/dL (0.2-1.0); Calcium 8.5 mg/dL (8.5-10.1); Carbon Dioxide 29.7 mmol/L (21.0-32.0); Chloride 103 mmol/L (98-107); Estimated GFR (African America 48 (>=60); Estimated GFR (Non-African Ame 39 (>=60); Globulin 3.2 g/dL; Glucose 77 mg/dL (74-106); Potassium 3.9 mmol/L (3.5-5.1); Sodium 142 mmol/L (136-145); Total Protein 6.4 g/dL (6.4-8.2)
[2023-03-25 16:41] LABS: D Dimer 0.82 mg/L FEU (<=0.59)
== END 2023-03-25 14:16 | disposition home or self-care (01) ==
LOC: LAB 14:17
PROVIDERS: PCP Nurse Practitioner; Visit Provider Nurse Practitioner
DX: R60.0 Localized edema (principal); R06.02 Shortness of breath
CPT/HCPCS: 36415; 71046; 80053; 85025; 85378; 93971

== ENCOUNTER 2023-03-26 09:42 | Emergency (ER) | payer MEDICARE, SELFPAY ==
[2023-03-26 09:48] VITALS: BP 130/74; PULSE 79; RESP 18; TEMP 36.9; O2SAT 92; BMI 33.3
--- NOTE | 2023-03-26 09:56 | CT_ITS ---
The [address] [address] Patient Name: FRANKY SRINIVASAN MRN: [id number] date: 1965 Sex: F Assigned Patient Location: ER Current Patient Location: Accession/Order Number: [id number] Exam Date: 03/26/2023 10:42 Report Date: 03/26/2023 11:09 At the request of: BILLIE BHATIA Procedure: CT angio chest EXAMINATION: CT angio chest HISTORY: sob, + ddimer COMPARISON: CT lung cancer screening 05/29/2022 TECHNIQUE: Multi-planar CT images were created with IV contrast. Axial, Coronal, and Sagittal images. Dose reduction techniques were achieved by using automated exposure control and/or adjustment of mA and/or kV according to patient size and/or use of iterative reconstruction technique. 3-D reconstruction was performed on a separate workstation. FINDINGS: VASCULATURE: No pulmonary embolism or abnormal opacity. LUNGS: No acute infiltrates. Mild chronic stranding and trace amount of bibasilar atelectasis. PLEURA: No mass, effusion, or pneumothorax. KAVEH: No mass or adenopathy. MEDIASTINUM: No mass or adenopathy. CARDIAC: No enlargement, pericardial effusion, or pericardial thickening. AORTA: No aneurysm or dissection. CHEST WALL: No mass or axillary adenopathy. BONES: Bone irregularity involving anterior aspect of right 5th and sixth ribs suspected represent subacute healing fractures. LIMITED ABDOMEN: No suspicious findings. Limited images of the upper abdomen. OTHER: Negative. CT/CT angio chest IMPRESSION: 1. No pulmonary embolism or acute infiltrates to account for patient's symptoms. 2. Subacute healing fractures involving anterior right 5th and sixth ribs. Correlate with clinical history. Bone lesions/neoplasm are felt less likely. Electronically authenticated by: MELISSA ROSENBERG Date: 03/26/2023 11:09
--- NOTE | 2023-03-26 09:56 | ECG_ITS ---
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
--- OUTSIDE RECORDS SUMMARY | 2023-03-26 09:56 | XMS_ITS | CCD ---
Author Name Unknown Address [address] [place] [address] Organization [facility] Care Team Providers Care [employer] Laboratory Technician Name Role Phone JAYMIE PHOENIX Primary Care Physician [phone] Bryson SAMPSON Attending Unavailable AICHJAYMIE NASSAR Referring Unavailabl e NILL, Bryson Hernandez Attending Unavailable Aichholz, Tracy L Referring Unavailable NILL, Bryson Hernandez Attending Unavailable NILL, Bryson Hernandez Attending Unavailable NILL, Bryson Hernandez Attending Unavailable AICHHOLZ, SESSIONS CLERK JAYMIE Primary Care Unavailable ALLAN ., DR JIM Mcdonnell Attending Unavailable ALLAN ., DR JIM Mcdonnell Admitting Unavailable ALLAN ., DR JIM Mcdonnell Consulting Unavailable ROBINSON ., GLENROY Admitting Unavailable GLENROY WORTHY Attending Unavailable SJ SOLER Consulting Unavailable AICHHOLZ, SESSIONS CLERK JAYMIE Primary Care Unavailable MENDEZ ., MR ROMO Admitting Unavailable MENDEZ ., MR ROMO Attending Unavailable AICHHOLZ, SESSIONS CLERK JAYMIE Primary Care Unavailable AICHHOLZ, SESSIONS CLERK JAYMIE Admitting Unavailable JUANITA, DR NADINE Caldwell Consulting Unavailable AICHHOLZ, SESSIONS CLERK JAYMIE Primary Care Unavailable AICHHOLZ, SESSIONS CLERK JAYMIE Attending Unavailable AICHHOLZ, SESSIONS CLERK JAYMIE Consulting Unavailable AICHHOLZ, SESSIONS CLERK JAYMIE Admitting Unavailable JUANITA, DR NADINE Caldwell Consulting Unavailable AICHHOLZ, SESSIONS CLERK JAYMIE Primary Care Unavailable AICHHOLZ, SESSIONS CLERK JAYMIE Attending Unavailable AICHHOLZ, SESSIONS CLERK JAYMIE Consulting Unavailable AICHHOLZ, SESSIONS CLERK JAYMIE Primary Care Unavailable NILL ., DR MASSEY Admitting Unavailable NILL ., DR MASSEY Attending Unavailable NILL ., DR MASSEY Consulting Unavailable SONDRA FELICIANO Consulting Unavailable ROBINSON .GLENROY Admitting Unavailable ROBINSON ., GLENROY Attending Unavailable ROBINSON ., GLENROY Consulting Unavailable AICHHOLZ, SESSIONS CLERK JAYMIE Primary Care Unavailable ALLAN ., DR JIM Mcdonnell Attending Unavailable ALLAN ., DR JIM Mcdonnell Consulting Unavailable ALLAN ., DR JIM Mcdonnell Admitting Unavailable AICHHOLZ, SESSIONS CLERK JAYMIE Primary Care Unavailable MARIA FERNANDA SOSA Consulting Unavailable ALLAN ., DR JIM Mcdonnell Attending Unavailable ALLAN ., DR JIM Mcdonnell Consulting Unavailable ALLAN ., DR JIM Mcdonnell Admitting Unavailable AICHHOLZ, SESSIONS CLERK JAYMIE Primary Care Unavailable ALLAN ., DR JIM Mcdonnell Admitting Unavailable ALLAN ., DR JIM Mcdonnell Attending Unavailable ALLAN ., DR JIM Mcdonnell Consulting Unavailable AICHHOLZ, SESSIONS CLERK JAYMIE Primary Care Unavailable ALLAN ., DR JIM Mcdonnell Admitting Unavailable ALLAN ., DR JIM Mcdonnell Attending Unavailable AICHHOLZ, SESSIONS CLERK JAYMIE Primary Care Unavailable THORNE ., JENNY Consulting Unavailable ALLAN ., DR JIM Mcdonnell Admitting Unavailable ALLAN ., DR JIM Mcdonnell Attending Unavailable ALLAN ., DR JIM Mcdonnell Consulting Unavailable AICHHOLZ, SESSIONS CLERK JAYMIE Primary Care Unavailable ALLAN ., DR JIM Mcdonnell Admitting Unavailable ALLAN ., DR IJM Mcodnnell Attending Unavailable ALLAN ., DR JIM Mcdonnell Consulting Unavailable AICHHOLZ, SESSIONS CLERK JAYMIE Primary Care Unavailable THORNE ., JENNY Consulting Unavailable ALLAN ., DR JIM Mcdonnell Admitting Unavailable ALLAN ., DR JIM Mcdonnell Attending Unavailable AICHHOLZ, SESSIONS CLERK JAYMIE Primary Care Unavailable ALLAN ., DR JIM Mcdonnell Attending Unavailable ALLAN ., DR JIM Mcdonnell Consulting Unavailable ALLAN ., DR JIM Mcdonnell Admitting Unavailable AICHHOLZ, SESSIONS CLERK JAYMIE Primary Care Unavailable LAKSHMIPATHY ., NARENDRANATH Consulting Evelyn vailable NILL ., DR MASSEY Consulting Unavailable NILL ., DR MASSEY Admitting Unavailable AICHHOLZ, SESSIONS CLERK JAYMIE Primary Care Unavailable NILL ., DR MASSEY Attending Unavailable AICHHOLZ, SESSIONS CLERK JAYMIE Admitting Unavailable AICHHOLZ, SESSIONS CLERK JAYMIE Attending Unavailable AICHHOLZ, SESSIONS CLERK JAYMIE Consulting Unavailable AICHHOLZ, SESSIONS CLERK JAYMIE Primary Care Unavailable DR MELISSA ROSENBERG Consulting Unavailable AICHHOLZ, SESSIONS CLERK JAYMIE Admitting Unavailable AICHHOLZ, SESSIONS CLERK JAYMIE Attending Unavailable AICHHOLZ, SESSIONS CLERK JAYMIE Consulting Unavailable AICHHOLZ, SESSIONS CLERK JAYMIE Primary Care Unavailable LORI FROST Consulting Unavailable ALLAN ., DR JIM Mcdonnell Attending Unavailable ALLAN ., DR JIM Mcdonnell Admitting Unavailable AICHHOLZ, SESSIONS CLERK JAYMIE Primary Care Unavailable AICHHOLZ, SESSIONS CLERK JAYMIE Primary Care Unavailable SAMSA ., MAGDALENA Admitting Unavailable SAMSA ., MAGDALENA Attending Unavailable SAM ., MAGDALENA Consulting Unavailable JERRELL ., DR JIM Mcdonnell Attending Unavailable ALLAN ., DR JIM Mcdonnell Admitting Unavailable ALLAN ., DR JIM Mcdonnell Consulting Unavailable AICHHOLZ, SESSIONS CLERK JAYMIE Primary Care Unavailable AICHHOLZ, SESSIONS CLERK JAYMIE Admitting Unavailable AICHHOLZ, SESSIONS CLERK JAYMIE Attending Unavailable AICHHOLZ, SESSIONS CLERK JAYMIE Consulting Unavailable AICHHOLZ, SESSIONS CLERK JAYMIE Primary Care Unavailable Mia Damianelrahman Attending Unavailab le Mia Damianelrahman Admitting Unavailab le Aichholz, Jaymie J Primary Care Unavailable AICHHOLZ, JAYMIE Attending Unavailable AICHHOLZ, JAYMIE Attending Unavailable Aichholz STRANDING MACHINE OPERATOR HELPER, Jaymie Unavailable Shaikh Marquez MD Primary Care Provider Allergies Allergy Classification Reported Allergen(s) Allergy Type Date of Onset Reaction(s) Facility (7 sources) Penicillins; Translations: [penicillins] Drug allergy 4 Dyspnea (finding), Weal (disorder), Hives, Shortness of breath, Swelling [facility] [place] (2 sources) predniSONE; Translations: [prednisone] Drug Allergy Dyspnea (finding) [facility] [place] (1 source) prednisoLONE Drug Allergy [facility] (3 sources) Prednisone Propensity to adverse reactions 3 Itching [facility] Medications Current Medications Medication Drug Class(es) Dates Sig (Normalized) Sig (Original) [id number] 200 actuat albuterol 0.09 mg/actuat metered dose inhaler (3 sources) beta2-Adrenergic Agonist take 2 puff(s) by inhalation every six hours for wheezing albuterol HFA 90 mcg/act inhaler Inhale 2 puffs every 6 (six) hours if needed for shortness of breath or wheezing 0 Active amitriptyline hydrochloride 100 mg oral tablet (4 sources) Tricyclic Antidepressant Start: 01-22-2022 amitriptyline 100 mg oral tablet 50 mg = 0.5 tab(s), Oral, Once a day (at bedtime), Refills(s) 0 Start Date: 01/22/22 Status: Ordered take 1 tablet by mouth at bedtim e amitriptyline (Elavil) 50 MG tablet Take 50 mg by mouth at bedtime 0 Active atorvastatin 20 mg oral tablet (3 sources) HMG-CoA Reductase Inhibitor Start: 02-28-2023 End: 03-30-2023 take 1 tablet by mouth in the evening atorvastatin (Lipitor) 20 MG tablet Indications: Mixed hyperlipidemia (CMS/HCC) Take 1 tablet (20 mg) by mouth in the evening 30 tablet 2 02/28/2023 03/30/2023 Active 120 actuat budesonide 0.16 mg/actuat / formoterol fumarate 0.0048 mg/actuat / glycopyrrolate 0.009 mg/actuat metered dose inhaler (3 sources) Corticosteroid, beta2-Adrenergic Agonist Start: 09-29-2022 take 2 puff(s) by inhalation in the morning Breztri Aerosphere 160-9-4.8 MCG/ACT aerosol Inhale 2 puffs in the morning and 2 puffs before bedtime. 0 09/29/2022 Active cholecalciferol 0.125 mg oral tablet (3 sources) Vitamin D cholecalciferol (Vitamin D-3) 125 MCG (5000 UT) tablet as directed Orally 0 Active ibuprofen 800 mg oral tablet (3 sources) Nonsteroidal Anti-inflammatory Drug Start: 01-08-2023 take 1 tablet by mouth every eight hours as needed ibuprofen 800 MG tablet Take 800 mg by mouth every 8 (eight) hours if needed 0 01/08/2023 Active lamoTRIgine 100 mg oral tablet (7 sources) Mood Stabilizer, Anti-epileptic Agent Start: 01-22-2022 [...] 0 Active lidocaine 0.05 mg/mg medicated patch (3 sources) Antiarrhythmic, Amide Local Anesthetic apply 1 dose transdermal route every twelve hours in the morning lidocaine (Lidoderm) 5 % patch Apply 1 patch topically in the morning. Remove & discard patch within 12 hours or as directed by MD.. 0 Active meloxicam 15 mg oral tablet (4 sources) Nonsteroidal Anti-inflammatory Drug Start: 03-15-19 End: 04-14-19 24 take 1 tablet by mouth in the morning meloxicam (Mobic) 15 MG tablet Indications: Fibromyalgia Take 1 tablet (15 mg) by mouth in the morning. 30 tablet 5 03/15/2023 04/14/2023 Active Start: 01-22-2022 take 1 tablet by aaron once daily meloxicam 15 mg Tab 15 mg = 1 tab(s), Oral, Daily, Refills(s) 0 Start Date: 01/22/22 Status: Ordered omeprazole 40 mg delayed release oral capsule (4 sources) Proton Pump Inhibitor Start: 01-22-2022 take 1 capsule by mouth once daily omeprazole 40 mg Cap-DR 40 mg = 1 cap(s), Oral, Daily, Refills(s) 0 Start Date: 01/22/22 Status: Ordered prazosin 2 mg oral capsule (4 sources) alpha-Adrenergic Lenora Start: 01-22-2022 take 1 capsule by mouth at bedtime prazosin 2 mg oral capsule 2 mg = 1 cap(s), Oral, Bedtime, Refills(s) 0 Start Date: 01/22/22 Status: Ordered pregabalin 100 mg oral capsule (4 sources) Start: 01-06-2023 take 1 capsule by mouth twice daily pregabalin (Lyrica) 100 MG capsule Indications: Fibromyalgia TAKE 1 CAPSULE BY MOUTH TWICE DAILY 60 capsule 5 01/06/2023 Active Start: 01-22-2022 take 1 capsule by mo [facility] twice daily pregabalin 100 mg Cap 100 mg = 1 cap(s), Oral, BID, Refills(s) 0 Start Date: 01/22/22 Status: Ordered propranolol hydrochloride 40 mg oral tablet (4 sources) beta-Adrenergic Lenora Start: 01-06-2023 take 1 [...] Status: Ordered QUEtiapine 100 mg oral tablet (7 sources) Atypical Antipsychotic Start: 01-22-2022 SEROque l [...] Status: Ordered spironolactone 50 mg oral tablet (4 sources) Aldosterone Antagonist Start: 03-15-2023 End: 04-14-2023 [...] Status: Ordered tiZANidine 4 mg oral tablet (4 sources) Central alpha-2 Adrenergic Agonist Start: 01-22-2022 [...] Date Documented Da te Episodic/Chronic Anxiety disorders (4 sources) Mixed anxiety and depressive disorder; Translations: [Anxiety disorder, unspecified] Onset: 4 01-22-2022 Chronic Chronic obstructive pulmonary disease and bronchiectasis (9 sources) Chronic obstructive pulmonary disease, unspecified; Translations: [Chronic obstructive lung disease] Onset: 3 Chronic Chronic obstructive pulmonary disease and bronchiectasis (1 source) Bronchitis, not specified as acute or chronic; Translations: [BRONCHITIS NOT SPEC ACUTE/CHRON] Onset: 3 Episodic Deficiency and other anemia (4 sources) Acute megaloblastic anemia; Translations: [Other megaloblastic anemias, not elsewhere classified] Onset: 4 01-22-2022 Episodic Deficiency and other anemia (1 source) Other megaloblastic anemias, not elsewhere classified; Translations: [OTHER MEGALOBLASTIC ANEMIAS NEC] Onset: 3 Episodic Diabetes mellitus without complication (4 sources) Hyperglycemia, unspecified; Translations: [HYPERGLYCEMIA UNSPECIFIED] Onset: 3 Episodic Disorders of lipid metabolism (8 sources) Hyperlipidemia; Translations: [Hyperlipidemia, unspecified] Onset: 3 Resolved: 4 01-22-2022 Chronic Esophageal disorders (5 sources) Gastroesophageal reflux disease; Translations: [Gastro-esophageal reflux disease without esophagitis] Onset: 2 01-22-2022 Chronic Essential hypertension (13 sources) Essential hypertension; Translations: [Essential (primary) hypertension] Onset: 2 Resolved: 4 01-22-2022 Chronic Headache; including migraine (7 sources) Migraine; Translations: [Migraine without aura] Onset: 3 Resolved: 4 01-22-2022 Chronic Joint disorders and dislocations; trauma-related (6 sources) Derangement of left knee; Translations: [Unspecified internal derangement of left knee] Onset: 4 02-18-2023 Chronic Nutritional deficiencies (5 sources) Vitamin D deficiency; Translations: [Vitamin D deficiency, unspecified] Onset: 3 01-22-2022 Chronic Nutritional deficiencies (4 sources) Cobalamin deficiency; Translations: [Deficiency of other specified B group vitamins] Onset: 4 01-22-2022 Episodic Open wounds of extremities (6 sources) Open wound of left foot; Translations: [Unspecified open wound, left foot, initial encounter] Onset: 3 Resolved: 3 01-26-2023 Episodic Osteoarthritis (3 sources) Osteoarthritis of knee; Translations: [Osteoarthritis of knee, unspecified] Onset: 4 02-18-2023 Chronic Other and unspecified benign neoplasm (3 sources) Hyperplastic polyp of intestine; Translations: [Polyp of colon] Onset: 4 02-18-2023 Episodic Other bone disease and musculoskeletal deformities (4 sources) Osteopenia; Translations: [Other specified disorders of bone density and structure, unspecified site] Onset: 4 01-22-2022 Episodic Other connective tissue disease (7 sources) Fibromyalgia; Translations: [Fibromyalgia] Onset: 2 Resolved: 4 01-22-2022 Episodic Other connective tissue disease (1 source) Other muscle spasm; Translations: [OTHER MUSCLE SPASM] Onset: 3 Episodic Other ear and sense organ disorders (4 sources) Hearing loss; Translations: [Unspecified hearing loss, [...] Chronic Other nutritional; endocrine; and metabolic disorders (8 sources) Body mass index 40+ - severely obese; Translations: [Body mass index (BMI) 40.0-44.9, adult] Onset: 4 02-03-2022 Chronic Other nutritional; endocrine; and metabolic disorders (4 sources) Obesity; Translations: [Obesity, unspecified] Onset: 4 01-22-2022 Chronic Other nutritional; endocrine; and metabolic disorders (1 source) Obesity, unspecified; Translations: [OBESITY UNSPECIFIED] Onset: 3 Chronic Other nutritional; endocrine; and metabolic disorders (3 sources) Severe obesity; Translations: [Morbid (severe) obesity due to excess calories] Onset: 3 01-26-2023 Chronic Other screening for suspected conditions (not mental disorders or infectious disease) (7 sources) Stool DNA-based colorectal cancer screening positive; Translations: [Other fecal abnormalities] Onset: 2 02-03-2022 Episodic Residual codes; unclassified (1 source) Sleep apnea, unspecified; Translations: [SLEEP APNEA UNSPECIFIED] Onset: 2 Chronic Residual codes; unclassified (5 sources) Bilateral lower limb edema; Translations: [Localized edema] Onset: 3 03-16-2023 Episodic Spondylosis; intervertebral disc disorders; other back problems (10 sources) Spondylosis without myelopathy or radiculopathy, lumbar region; Translations: [Other intervertebral disc degeneration, lumbar region] Onset: 2 Chronic Spondylosis; intervertebral disc disorders; other back problems (4 sources) Chronic low back pain; Translations: [Chronic lumbar pain] Onset: 4 01-22-2022 Episodic Substance-related disorders (6 sources) Nicotine dependence, cigarettes, uncomplicated; Translations: [Tobacco [...] Episodic Other aftercare (1 source) Other intermediate accountant (current) drug therapy; Translations: [OTH NURSING HOME CURRENT DRUG THERAPY] Onset: 3 Episodic Other [...] UNSPECIFIED] Onset: 2 Episodic Other liver diseases (3 sources) Aspartate aminotransferase serum level raised; Translations: [Elevated SGOT (AST)] Onset: 2 02-18-2023 Episodic Other non-traumatic joint disorders (4 sources) Pain in left knee; Translations: [Pain in joint, lower leg] Onset: 2 Resolved: 4 03-16-2023 Episodic Other skin disorders (3 sources) Decorative tattoo; Translations: [Other specified disorders of pigmentation] Onset: 2 Resolved: 4 03-16-2023 Episodic Other upper respiratory infections (3 sources) Acute sinusitis; Translations: [Other acute sinusitis] Onset: 3 Resolved: 4 03-16-2023 Episodic Residual codes; unclassified (4 sources) Edema of lower extremity; Translations: [Localized edema] Onset: 4 Resolved: 4 01-22-2022 Episodic Residual codes; unclassified (4 sources) Tobacco user; Translations: [Tobacco use] Onset: 4 Resolved: 4 01-22-2022 Episodic Residual codes; unclassified (1 source) Acquired absence of both cervix and uterus; Translations: [ACQUIRED ABSENCE BOTH CERVIX AND UTERUS] Onset: 3 Episodic Residual codes; unclassified (1 source) Tobacco use; Translations: [TOBACCO USE] Onset: 2 Episodic Residual codes; unclassified (1 source) Insomnia, unspecified; Translations: [INSOMNIA UNSPECIFIED] Onset: 2 Episodic Residual codes; unclassified (3 sources) Exposure to carbon monoxide; Translations: [Contact with and (suspected) exposure to other hazardous substances] Onset: 4 Resolved: 4 03-16-2023 Episodic Screening and history of mental health and substance abuse codes (3 sources) Tobacco use and exposure - finding; [...] BTYon 07-08-2022 02 MODE ROOM AIR Normal [facility] Comment on above: Performed By: #### A BG ####[facility] [address] [place], [place] [address]Dr. Phani lE ALLENS TEST Positive Normal [facility] Comment on above: Performed By: #### A BG ####[facility] [address] [place], [place] [address]Dr. Phani El Base excess Calc (Bld) [Moles/Vol] 1.4 mmol/L Normal -2.0-2.0 [facility] Comment on above: Performed By: #### A BG ####[facility] [address] [place], [place] [address]Dr. Phani El BIPAP PRESSURE Normal [facility] Comment on above: Performed By: #### A BG ####[facility] [address] [place], [place] [address]Dr. Phani El CPAP Normal [facility] Comment on above: Performed By: #### A BG ####[facility] [address] [place], [place] [address]Dr. Phani El FIO2 Normal [facility] Comment on above: Performed By: #### A BG ####[facility] [address] [place], [place] [address]Dr. Phani El HCO3 (Bld) [Moles/Vol] 26.2 mmol/L Critically high 22.0-26.0 [facility] Comment on above: Performed By: #### A BG ####[facility] [address] [place] [address]Dr. Phani El LPM Normal [facility] Comment on above: Performed By: #### A BG ####[facility] [address] [place], [place] [address]DrCindy El MINUTE VOLUME Normal [facility] Comment on above: Performed By: #### A BG ####[facility] [address] [place], [place] [address]DrCindy El Oxygen (Bld) [Partial pressure] 56.1 mm[Hg] Critically low 80.0-100.0 [facility] Comment on above: Performed By: #### A BG ####[facility] [address] [place], [place] [address]DrCindy El Oxygen saturation in Blood 92.0 % Critically low 95.0-100.0 [facility] Comment on above: Performed By: #### A BG ####[facility] [address] [place], [place] [address]DrCindy El PCO2 42.6 mmHg Normal 35.0-45.0 [facility] Comment on above: Performed By: #### A BG ####[facility] [address] [place], [place] [address]DrCindy El PEEP Normal [facility] Comment on above: Performed By: #### A BG ####[facility] [address] [place], [place] [address]DrCindy El pH (Bld) 7.398 [pH] Normal 7.350-7.450 [facility] Comment on above: Performed By: #### A BG ####[facility] [address] [place], [place] [address]DrCindy El PIP Normal [facility] Comment on above: Performed By: #### A BG ####[facility] [address] [place], [place] [address]Dr. Phani El PS Normal [facility] Comment on above: Performed By: #### A BG ####[facility] [address] [place] [id number]. Phani El PUNCTURE SITE RR Normal [facility] Comment on above: Performed By: #### A BG ####[facility] [address] [place] [id number]. Phani El RATE Normal [facility] Comment on above: Performed By: #### A BG ####[facility] [address] [place] [id number]. Phain El VENT MODE Normal [facility] Comment on above: Performed By: #### A BG ####[facility] [address] [place] [address]Dr. Phani El VT Normal [facility] Comment on above: Performed By: #### A BG ####[facility] [address] [place] [address]Dr. Phani El ECHOCARDIO M/2D COMPLETEon 0 07-08-2022 ECHOCARDIO M/2D COMPLETE Patient: FRANKY SRINIVASAN I. Exam Date: 07/08/2022 : 1965 Gender:F Ordering : DR. MAGDALENA DOWNING . Admission #: [id number] Family : MEREDITH PHOENIX SESSIONS CLERK Order #: [id number] CLICK HERE TO VIEW EXAM ECHOCARDIOGRAM REPORT [...] Garcia M.D. on 07/08/2022 at 18:14 Normal [facility] [address] LUNG CANCER SCREENINGon 0 05-29-2022 CT [...] MELISSA ROSENBERG Date: 2022-05-29 09:36 Normal [facility] CBC AUTO DIFFon 05-05-2022 BASO # 0.1 103/ul Normal 0.0-0.1 [facility] Comment on above: Performed By: #### C BC #### [facility] [address] [place] [address] Dr. Phani El Basophils/100 WBC (Bld) 0.8 % Normal 0.2-2.0 [facility] Comment on above: Performed By: #### C BC #### [facility] [address] [place] [address] Dr. Phani El EO # 0.1 103/ul Normal 0.0-0.7 [facility] Comment on above: Performed By: #### C BC #### [facility] [address] [place] [address] Dr. Phani El Eosinophils/100 WBC (Bld) 2.0 % Normal 0.9-7.0 [facility] Comment on above: Performed By: #### C BC #### [facility] [address] [place] [address] Dr. Phani El Erythrocyte distribution width (RBC) [Ratio] 14.0 % Normal 11.0-15.0 [facility] Comment on above: Performed By: #### C BC #### [facility] [address] [place] [address] Dr. Phani El Hematocrit (Bld) [Volume fraction] 48.7 % Critically high 36.0-48.0 [facility] Comment on above: Performed By: #### C BC #### [facility] [address] [place] [address] Dr. Phani El Hemoglobin (Bld) [Mass/Vol] 15.9 g/dL Normal 12.0-16.0 [facility] Comment on above: Performed By: #### C BC #### [facility] [address] [address] [address] Phani El IG # 0.05 10e3/ul Critically high 0.00-0.03 [facility] Comment on above: Performed By: #### C BC #### [facility] [address] [place] [address] Dr. Phani El IG % 0.8 % Critically high 0.0-0.5 [facility] Comment on above: Performed By: #### C BC #### [facility] [address] [place] [address] Dr. Phani El LYMPH # 1.9 103/ul Normal 1.2-3.8 [facility] Comment on above: Performed By: #### C BC #### [facility] [address] [place] [address] Dr. Phani El Lymphocytes/100 WBC (Bld) 30.1 % Normal 20.5-60.0 [facility] Comment on above: Performed By: #### C BC #### [facility] [address] [place] [address] Dr. Phani El MANUAL DIFF REQ NO Normal [facility] Comment on above: Performed By: #### C BC #### [facility] [address] [place] [address] Dr. Phani El MCH (RBC) [Entitic mass] 32.9 pg Normal 26.7-34.0 [facility] Comment on above: Performed By: #### C BC #### [facility] [address] [place] [address] Dr. Phani El MCHC (RBC) [Mass/Vol] 32.6 g/dL Normal 29.9-35.2 [facility] Comment on above: Performed By: #### C BC #### [facility] [address] [place] [address] Dr. Phani El MCV (RBC) [Entitic vol] 100.8 fL Critically high 81.0-99.0 [facility] Comment on above: Performed By: #### C BC #### [facility] [address] [place] [address] Dr. Phani El MONO # 0.5 103/ul Normal 0.3-0.8 [facility] Comment on above: Performed By: #### C BC #### [facility] [address] [place] [address] Dr. Phani El Monocytes/100 WBC (Bld) 7.2 % Normal 1.7-12.0 [facility] Comment on above: Performed By: #### C BC #### [facility] [address] [place] [address] Dr. Phani El NEUT # 3.8 103/ul Normal 1.4-6.5 [facility] Comment on above: Performed By: #### C BC #### [facility] [address] [place] [address] Dr. Phani El Neutrophils/100 WBC (Bld) 59.1 % Normal 43.0-75.0 [facility] Comment on above: Performed By: #### C BC #### [facility] [address] [place] [address] Dr. Phani El Platelet mean volume (Bld) [Entitic vol] 11.0 fL Normal 9.5-13.5 [facility] Comment on above: Performed By: #### C BC #### [facility] [address] [place] [address] Dr. Phani El PLT 167 103/ul Normal 150-450 [facility] Comment on above: Performed By: #### C BC #### [facility] [address] [place] [address] Dr. Phani El RBC 4.83 106/ul Normal 4.20-5.40 [facility] Comment on above: Performed By: #### C BC #### [facility] [address] [place] [address] Dr. Phani El WBC 6.4 103/ul Normal 4.0-11.0 [facility] Comment on above: Performed By: #### C BC #### [facility] [address] [place] [address] Dr. Phani El GLYCOHEMOGLOBIN A1Con 2022 ADA RECOMMENDATION SEE BELOW Normal [facility] Comment on above: Result Comment: ADA RECOMMENDED LIMIT 4.0 - 6.0 ADA THERAPEUTIC TARGET < 7.0 ACTION SUGGESTED > 7.0 Performed By: #### A 1C ####[facility] [address] [place] [id number]. Phani El Glucose [Mass/Vol] 114 mg/dL Normal [facility] Comment on above: Performed By: #### A 1C ####[facility] [address] [place] [address]DrCindy El HbA1c (Bld) [Mass fraction] 5.6 % Normal 4.5-6.2 [facility] Comment on above: Performed By: #### A 1C ####[facility] [address] [place] [address]Dr. Phani El LIPID PROFILEon 05-05-2022 CHOL-HDL RATIO NORM SEE BELOW Normal [facility] Comment on above: Result Comment: 3.3 - 4.4 LOW RISK 4.4 - 7.1 AVERAGE RISK 7.1 - 11.0 MODERATE RISK >11.0 HIGH RISK Performed By: #### C MP, LIPID #### [facility] [address] [place] [address] [address] Phani El Cholesterol [Mass/Vol] 178 mg/dL Normal <=200 [facility] Comment on above: Performed By: #### C MP, LIPID #### [facility] [address] [place] [address] [address] Phani El Cholesterol in HDL [Mass/Vol] 54 mg/dL Normal 40-60 [facility] Comment on above: Performed By: #### C MP, LIPID #### [facility] [address] [place] [address] [address] Phani El Cholesterol in LDL [Mass/Vol] 86.6 mg/dL Normal [facility] Comment on above: Performed By: #### C MP, LIPID #### [facility] [address] [place] [address] [address] Phani El Cholesterol.total/Ch olesterol in HDL [Mass ratio] 3.3 {ratio} Normal [facility] Comment on above: Performed By: #### C MP, LIPID #### [facility] [address] [place] [address] [address] Phani El HDL NORMAL > or = 60 mg/dl - LO W CARDIOVASCULAR RISK <40 mg/dl - HIGH CARDIOVASCULAR RISK Normal [facility] Comment on above: Performed By: #### C MP, LIPID #### [facility] [address] [place] [address] [address] Phani El LDL CALC NORMAL SEE BELOW Normal [facility] Comment on above: Result Comment: <100 mg/dl OPTIMAL 100 - 129 mg/dl NEAR OR ABOVE OPTIMAL 130 - 159 mg/dl BORDERLINE HIGH 160 - 189 mg/dl HIGH >190 mg/dl VERY HIGH Performed By: #### C MP, LIPID #### [facility] [address] [place] [address] [address] Phani El Triglyceride [Mass/Vol] 187 mg/dL Critically high <=150 [facility] Comment on above: Performed By: #### C MP, LIPID #### [facility] [address] [place] [address] [address] Phani El VLDL CALC 37.4 mg/dL Normal [facility] Comment on above: Performed By: #### C MP, LIPID #### [facility] [address] [place] [address] [address] Phani El PROF 14(COMP METB)on 023 Albumin [Mass/Vol] 3.6 g/dL Normal 3.4-5.0 [facility] Comment on above: Performed By: #### C MP, LIPID ####[facility] [address] [place] [id number]. Phani El Albumin/Globulin [Mass ratio] 1.1 {ratio} Normal [facility] Comment on above: Performed By: #### C MP, LIPID ####[facility] [address] [place], [place] [address]LgDr. Phani El ALP [Catalytic activity/Vol] 91 U/L Normal 46-116 [facility] Comment on above: Performed By: #### C MP, LIPID ####[facility] [address] [place] [id number]. Phani El ALT [Catalytic activity/Vol] 34 U/L Normal 14-59 [facility] Comment on above: Performed By: #### C MP, LIPID ####[facility] [address] [place] [id number]. Phani El Anion gap [Moles/Vol] 11.6 mmol/L Normal [facility] Comment on above: Performed By: #### C MP, LIPID ####[facility] [address] [place] [address]Dr. Phani El AST [Catalytic activity/Vol] 18 U/L Normal 15-37 [facility] Comment on above: Performed By: #### C MP, LIPID ####[facility] [address] [place] [address]Dr. Phnai El Bilirubin [Mass/Vol] 0.6 mg/dL Normal 0.2-1.0 [facility] Comment on above: Performed By: #### C MP, LIPID ####[facility] [address] [place] [id number]. Phani El Calcium [Mass/Vol] 9.2 mg/dL Normal 8.5-10.1 [facility] Comment on above: Performed By: #### C MP, LIPID ####[facility] [address] [place] [id number]. Phani El Chloride [Moles/Vol] 106 mmol/L Normal 98-107 [facility] Comment on above: Performed By: #### C MP, LIPID ####[facility] [address] [place] [id number]. Phani El CO2 [Moles/Vol] 32.3 mmol/L Critically high 21.0-32.0 [facility] Comment on above: Performed By: #### C MP, LIPID ####[facility] [address] [place] [id number]. Phani El Creatinine [Mass/Vol] 1.04 mg/dL Critically high 0.55-1.02 [facility] Comment on above: Performed By: #### C MP, LIPID ####[facility] [address] [place] [id number]. Phani El EGFR-AF PANAMANIAN >60 Normal >=60 [facility] Comment on above: Performed By: #### C MP, LIPID ####[facility] [address] [place] [id number]. Phani El EGFR-NON AF PANAMANIAN 54 mL/min/1.73m2 Critically low >=60 [facility] Comment on above: Performed By: #### C MP, LIPID ####[facility] [address] [place] [id number]. Phani El Globulin (S) [Mass/Vol] 3.4 g/dL Normal [facility] Comment on above: Performed By: #### C MP, LIPID ####[facility] [address] [place] [id number]. Phani El Glucose [Mass/Vol] 124 mg/dL Critically high 74-106 [facility] Comment on above: Performed By: #### C MP, LIPID ####[facility] [address] [place] [id number]. Phani El Potassium [Moles/Vol] 3.9 mmol/L Normal 3.5-5.1 [facility] Comment on above: Performed By: #### C MP, LIPID ####[facility] [address] [place] [phone]. Phani El Protein [Mass/Vol] 7.0 g/dL Normal 6.4-8.2 [facility] Comment on above: Performed By: #### C MP, LIPID ####[facility] [address] [place] [id number]. Phani El Sodium [Moles/Vol] 146 mmol/L Critically high 136-145 [facility] Comment on above: Performed By: #### C MP, LIPID ####[facility] [address] [place] [id number]. Phani El Urea nitrogen [Mass/Vol] 14.0 mg/dL Normal 7.0-18.0 [facility] Comment on above: Performed By: #### C MP, LIPID ####[facility] [address] [place], [place] [address]OpDr. Phani El Urea nitrogen/Creatinine [Mass ratio] 13.5 mg/mg Normal [facility] Comment on above: Performed By: #### C MP, LIPID ####[facility] [address] [place], [place] [address]IjDr. Phani El VITAMIN B12on 05-05-2022 Cobalamin (Vitamin B12) [Mass/Vol] 321.0 pg/mL Normal 193.0-986.0 [facility] Comment on above: Performed By: #### V ITAD, VITB12 #### [facility] [address] [place] [address] [address] Phani El VITAMIN D 25 OHon 05-05-2022 VIT D 25-OH 58.7 ng/mL Normal [facility] Comment on above: Performed By: #### V ITAD, VITB12 #### [facility] [address] [place] [address] [address] Phani El VIT D RANGES SEE BELOW Normal [facility] Comment on above: Result Comment: <20 ng/mL Vit D deficient 20 - <30 ng/mL Vit D insufficient 30 - 100 ng/mL Vit D sufficient >100 ng/mL Potential Toxicity Performed By: #### V ITAD, VITB12 #### [facility] [address] [place] [address] [address] Phani El XR CHEST 2 Von [...] LORI FROST Date: 2022-05-05 10:05 Normal [facility] Ambulatory Visit Summaryon 0 03-24-2022 Ambulatory Visit [...] inactivated - Not Given Patient Refuses Normal [facility] Comment on above: Result Comment: Elec tronically Signed By: NABIL AMADOR, Bryson Steinberg\Date and Time Signed: 03/24/22 13:12 EST Reminderson 03-24-2022 Reminders - From: Kristine Harrison LPN To: N - Clinical; Sent: 03/24/2022 13:05:34 EST Show up: 01/26/2032 07:00:00 EST Subject: colonoscopy recall Due Date/Time: 02/26/2032 07:00:00 EST Reminder/Recall Patient is due for screening colonoscopy 02/26/2032. Normal [facility] 02-10 SARS-CoV-2 (COVID-19) RNA MARISOL+probe Ql (Unsp spec) Detected Abnormal NOT DETECTED [facility] Comment on above: Result Comment: This test is not yet approved or cleared by the [place] FDA. When there are no FDA-approved or cleared tests available, and other criteria are met, FDA can make tests available under an emergency access mechanism called an Emergency Use Authorization (EUA). The EUA for this test is supported by the Gambling Floor Supervisor of Health and Human Service's (HHS's) declaration [...] longer be used). Performed By: #### C [facility] #### [facility] [address] [place] [address] Dr. Phani El INFLUENZA A AND B AGon 03-10 INFLUANEGH SEE BELOW Normal [facility] Comment on above: Result Comment: Nega tive for Flu A protein angiten. Infection due to Flu A cannot be ruled out. Flu A angiten in the sample may be below the detection limit of the test. Performed By: #### I NFLUAB ####[facility] [address] [place] [id number]. Phani El INFLUBNEGH SEE BELOW Normal [facility] Comment on above: Result Comment: Nega tive for Flu B protein antigen. Infection due to Flu B cannot be ruled out. Flu B antigen in the sample may be below the detection limit of the test. Performed By: #### I NFLUAB ####[facility] [address] [place] [id number]. Phani El INFLUENZA A AG Negative Normal NEGATIVE SEE COMMENT [facility] Comment on above: Performed By: #### I NFLUAB ####[facility] [address] [place] [address]Dr. Phani El INFLUENZA B AG Negative Normal NEGATIVE SEE COMMENT [facility] Comment on above: Performed By: #### I NFLUAB ####[facility] [address] [place] [address]Dr. Phani El Covid-19 PCR ([facility])on 02-09 SARS-CoV-2 (COVID-19) RNA MARISOL+probe Ql (Unsp spec) Detected Abnormal NOT DETECTED [facility] Comment on above: Result Comment: This test is not yet approved or cleared by the [place] FDA. When there are no FDA-approved or cleared tests available, and other criteria are met, FDA can make tests available under an emergency access mechanism called an Emergency Use Authorization (EUA). The EUA for this test is supported by the Gambling Floor Supervisor of Health and Human Service's declaration that [...] used). Performed By: #### C VDTBH #### [facility] [address] [place] [address] [address] Phani El Pathology Noteon 02-27-2022 Pathology Note [id number] 0CD:127 Normal [facility] Outside Colonoscopyon 2022 Outside Colonoscopy [id number] 0CD:127 Normal [facility] Reminderson 02-26-2022 Reminders - From: Kristine Harrison LPN To: Kristine Harrison LPN; Sent: 02/26/2022 11:14:25 EST Show up: 05/18/2022 07:00:00 EDT Subject: Ambulatory Reminder Due Date/Time: 05/27/2022 07:00:00 EDT Reminder/Recall log in to extra lap top in [place] to keep account active Normal [facility] Lab Reportson 02-23-2022 Lab Reports [id number] 0CD:127 Normal [facility] Covid-19 PCR ([facility])on 02-08 SARS-CoV-2 (COVID-19) RNA MARISOL+probe Ql (Unsp spec) Not detected Normal NOT DETECTED [facility] Comment on above: Result Comment: This test is not yet approved or cleared by the [place] FDA. When there are no FDA-approved or cleared tests available, and other criteria are met, FDA can make tests available under an emergency access mechanism called an Emergency Use Authorization (EUA). The EUA for this test is supported by the Gambling Floor Supervisor of Health and Human Service's (HHS's) declaration [...] consistent with SARS-CoV-2. Performed By: #### C [facility] ####[facility] [address] [place], [place] [address]DnCindy El Pre-Certification Formon Pre-Certification Form [id number]. 00CD:127 Normal [facility] Consent for Procedure/Surger yon 02-05-2022 Consent for Procedure/Surgery [id number] 0CD:127 Normal [facility] Formson 02-05-2022 Forms [id number]#1.0 0CD:127 Normal [facility] Physician Referralon 022 Physician Referral [id number] 0CD:127 Normal [facility] MRI Knee w/o Lefton 12-26-19 MRI Knee [...] by Jason Sanchez on 12/25/2021 1505 Normal [facility] MRI LSPINE WO CONon 10-27-20 22 MRI LSPINE WO CON EXAMINATION: MRI LSPINE [...] by: NADINE GRANT Date: 2021-12-04 17:54 Normal [facility] XR LSPINE 2_3 VIEWSon 2021 XR LSPINE [...] by: NADINE GRANT Date: 2021-09-30 07:20 Normal [facility] MRI Knee w/o Lefton 07-30-19 MRI Knee w/o Left HISTORY: Knee pain [...] by Robby Diaz on 07/30/2021 1316 Normal [facility] Specialist Vital Signs Date Time Vital Sign Value Performing Clinician Facility 03-16-2023 13:35-0500 Body height 165.1 cm Jaymie Phoenix STRANDING MACHINE OPERATOR HELPER Work Phone: [facility] 03-16-2023 13:35-0500 Body mass index (BMI) [Ratio] 41.6 kg/m2 Jaymie Phoenix STRANDING MACHINE OPERATOR HELPER Work Phone: [facility] 03-16-2023 13:35-0500 Body temperature 98.4 [degF] Jaymie Phoenix STRANDING MACHINE OPERATOR HELPER Work Phone: [facility] 03-16-2023 13:35-0500 Body weight 113.4 kg Jaymie Phoenix STRANDING MACHINE OPERATOR HELPER Work Phone: [facility] 03-16-2023 13:35-0500 Diastolic blood pressure 72 mm[Hg] Jaymie Phoenix STRANDING MACHINE OPERATOR HELPER Work Phone: [facility] 03-16-2023 13:35-0500 Heart rate 77 /min Jaymie Phoenix STRANDING MACHINE OPERATOR HELPER Work Phone: [facility] 03-16-2023 13:35-0500 Respiratory rate 18 /min Jaymie Phoenix STRANDING MACHINE OPERATOR HELPER Work Phone: [facility] 03-16-2023 13:35-0500 SaO2% (BldA) [Mass fraction] 95 % Jaymie Phoenix STRANDING MACHINE OPERATOR HELPER Work Phone: [facility] 02-06-2024 13:35-0500 Systolic blood pressure 112 mm[Hg] Jaymie Phoenix STRANDING MACHINE OPERATOR HELPER Work Phone: [facility] 02-03-2022 13:27-0500 Blood Pressure Location Bryson SAMPSON [facility] [place] 02-03-2022 13:27-0500 Diastolic blood pressure 80 mm[Hg] Bryson RACHELL [facility] [place] 02-03-2022 13:27-0500 Heart rate 72 /min Bryson NILL [facility] [place] 02-03-2022 13:27-0500 Respiratory rate 16 /min Bryson RACHELL [facility] [place] 02-03-2022 13:27-0500 Systolic blood pressure 126 mm[Hg] Bryson RACHELL [facility] [place] Encounters Encounter Date Encounter Type Care Provider Facility Start: 03-25-2023 Bamboo flowsheet Jaymie Alban STRANDING MACHINE OPERATOR HELPER Work Phone: [facility] Start: 03-25-2023 Bamboo flowsheet Jaymie Alban STRANDING MACHINE OPERATOR HELPER Work Phone: [facility] Start: 03-16-2023 End: 03-16-2023 ambulatory JAYMIE MADDYHHOLZ Not Available Start: 03-16-2023 End: 03-16-2023 Office outpatient visit 25 minutes Jaymie Phoenix STRANDING MACHINE OPERATOR HELPER Work Phone: [facility] Comment on above: COPD mixed type (CMS /HCC) (Primary Dx); Tobacco dependence; BMI 40.0-44.9, adult (CMS/HCC); Body mass index [BMI] 40.0-44.9, adult (Z68.41); Primary hypertension (CMS/HCC); Bilateral lower extremity edema Start: 01-26-2023 End: 01-26-2023 ambulatory JAYMIE AICHHOLZ Not Available Start: 12-08-2022 ambulatory Alphonse Patton acility:[facility] Start: 07-08-2022 ambulatory SESSIONS CLERK JAYMIE MADDYHMAURICEZ Facil ity:H1 Start: 05-29-2022 End: 05-30-2022 ambulatory MEREDITH PHOENIX Facility:[facility] Start: 05-05-2022 End: 05-06-2022 ambulatory MEREDITH PHOENIX Facility:[facility] Start: 04-30-2022 End: 05-01-[address] JIM ALLAN . Facility:[facility] Start: 03-31-2022 End: 03-31-[address] JIM ALLAN . Facility:[facility] Start: 03-27-[address] JIM ALLAN . Faci lity:[facility]1 Start: 03-24-2022 End: 03-25-2022 ambulatory [facility] Start: 03-17-2022 ambulatory Bryson SAMPSON Facility : [facility] Start: 03-10-2022 End: 03-10-2022 ambulatory MEREDITH PHOENIX Facility:[facility] Start: 03-02-2022 Encounter for preprocedural laboratory examination DR JIM ALLAN . [facility] Start: 02-28-2022 End: 03-01-2022 Encounter for preprocedural laboratory examination MEREDITH PHOENIX Facility:[facility] Start: 02-28-2022 End: 03-01-2022 ambulatory MEREDITH PHOENIX Facility:[facility] Start: 02-25-2022 End: 02-26-2022 ambulatory Bryson SAMPSON Facility:[id number] Start: 02-21-2022 End: 02-22-[address] BRYSON SAMPSON . Facility:[facility] Start: 02-06-2022 End: 02-07-2022 ambulatory JENNY THORNE . Facility:[facility] Start: 02-03-2022 End: 02-04-2022 ambulatory Tracy Saldaña Maddyascencionashley Facility:[facility] Start: 02-03-2022 End: 02-03-2022 Patient encounter procedure Bryson SAMPSON [facility] Start: 01-13-2022 End: 01-13-[address] JIM ALLAN . Facility:[facility] Start: 01-08-2022 End: 01-09-[address] JIM ALLAN . Facility:[facility] Start: 01-06-2022 ambulatory Bryson SAMPSON Facility :[facility] Start: 12-23-2021 End: 12-23-[address] JIM ALLAN . Facility:[facility] Start: 12-09-2021 End: 12-10-[address] JIM ALLAN . Facility:[facility] Start: 12-04-2021 End: 12-05-2021 ambulatory SESSIONS CLERK JAYMIE PHOENIX Facility:[facility] Start: 12-03-2021 End: 12-03-2021 ambulatory GLENROY BOWERS . Facility:[facility] Start: 10-10-2021 End: 10-30-2021 ambulatory MR DEMETRIUS MENDEZ . Facility:[facility] Start: 09-29-2021 End: 09-30-2021 ambulatory MEREDITH JAYMIE PHOENIX Facility:[facility] Start: 09-20-2021 End: 09-20-2021 ambulatory GLENROY BOWERS . Facility: Procedures Date Procedure Procedure Detail Performing Clinician section Bryson Saldaña Ligation of fallopian tube Leslie delacruz NABIL Repair of meniscus Bryson HOWELL Total abdominal hyst erectomy with bilateral salpingo-oophorectomy Bryson SAMPSON Plan of Treatment Date Care Activity Detail Author Start: 04-06-2023 End: 04-06-2023 Patient encounter procedure 04/06/2023 1:40 PM EST Office Visit [facility] [address] [place] [address] Jaymie Phoenix NP [address] [place] [id number] [facility] Immunizations Immunization Date Immunization Notes Care Provider Fa cility NEGATED: Highlighted row has not occurred!02-03-2022 influenza virus vaccine, unspecified formulation Bryson SAMPSON [facility] [place] Payers Date Payer Category Payer Self-pay 2021 Medicare AETNA MEDICARE A DVANTAGE AETNA MEDICARE REPLACEMENT [id number] 2021-Present [address] [place] [address] [id number] 1963 Unknown [id number] 2.16.840.1.384225.3.579.2. 727 1963 Unknown [id number] 2.16.840.1.928239.3.579.2. 727 1963 Unknown [id number] 2.16.840.1.703860.3.579.2. 72 1963 Unknown [id number] 2.16.840.1.886540.3.579.2. 727 1963 Unknown [id number] 2.16.840.1.197102.3.579.2. 72 1963 Unknown [id number] 2.16.840.1.769261.3.579.2. 59 1963 Unknown [id number] 2.16.840.1.051532.3.579.2. 59 1963 Unknown [id number] 2.16.840.1.780638.3.579.2. 593 1963 Unknown [id number] 2.16.840.1.370137.3.579.2. 59 1963 Unknown [id number] 2.16.840.1.369266.3.579.2. 593 1963 Unknown [id number] 2.16.840.1.213785.3.579.2. 59 1963 Unknown [id number] 2.16.840.1.557056.3.579.2. 593 1963 Unknown [id number] 2.16.840.1.921686.3.579.2. 59 1963 Unknown [id number] 2.16.840.1.856186.3.579.2. 593 1963 Unknown [id number] 2.16.840.1.769488.3.579.2. 59 1963 Unknown [id number] 2.16.840.1.597400.3.579.2. 593 1963 Unknown [id number] .16.840.1.423330.3.579.2. 59 1963 Unknown [id number] .16.840.1.396304.3.579.2. 593 1963 Unknown [id number] .840.1.338443.3.579.2. 59 1963 Unknown [id number] .840.1.703891.3.579.2. 59 1963 Unknown [id number] .840.1.115824.3.579.2. 59 1963 Unknown [id number] .840.1.809113.3.579.2. 59 1963 Unknown [id number] .840.1.442593.3.579.2. 59 1963 Unknown [id number] .840.1.248197.3.579.2. 593 1963 Unknown [id number] 840.1.111266.3.579.2. 59 1963 Unknown [id number] .840.1.609536.3.579.2. 593 1963 Unknown [id number] .16840.1.972239.3.579.2. 59 1963 Unknown [id number] .16840.1.852159.3.579.2. 1259 1959 Private Health Insurance [id number] Unknown [id number] 2.16840.1.951593.3.579.2. 531 Social History Date Type Detail Facility Start: 02-03-2022 Tobacco smoking status Heavy t obacco smoker (finding) [facility] Tobacco smoking status Never [facility] Start: 03-16-2023 Sex Assigned At Female F [facility] Start: 01-26-2023 Tobacco smoking stat us [facility] Smokes tobacco daily [facility] History of [...] Facility 02-03-2022 Functional Status N/A [facility] Clinical Notes 12-09-2021 to 03-16-2023 Jaymie Phoenix [...] (BMI) of 40.0 to 44.9 in adult ([facility]) 01/26/2023 COPD mixed type ([facility]) 01/26/2023 DENIES HX OF BLOOD BORNE DISEASES Depression ([facility]) Fibromyalgia Open wound of left foot 01/26/2023 Open wound of second toe 01/26/2023 Other acute sinusitis 01/26/2023 Primary hypertension (CMS/HCC) 01/26/2023 Tobacco dependence 01/26/2023 Past Surgical History: [...] mixed type (CMS/HCC) Still w wheeze, continue mannie Needs to quit smoking Allergies to steroids Have her add in albuterol inhaler prn BMI 40.0-44.9, adult (CMS/HCC) Other Visit Diagnoses Body mass index [BMI] 40.0-44.9, adult (Z68.41) documented in this encounter [facility] 04-30-2022 Note CONSULTATION CONSULTATION DATE: 04/30/2022 TO: [...] office on an as needed basis. [facility] 02-25-2022 Note OPERATIVE NOTE OPERATION DATE: 02/25/2022 [...] good condition. CC: Patient's family physician [facility] 02-06-2022 Note CONSULTATION CONSULTATION DATE: 02/06/2022 HISTORY [...] followed up in the clinic thereafter. [facility] 02-03-2022 Note Chief Complaint consultation for positive [...] 30 days Tobacco (more content not included)... [facility] Comment on above: Result Comment: Elec tronically Signed By: NABIL AMADOR, Bryson Steinbreg\Date and Time Signed: 02/03/22 13:53 EST 01-08-2022 [...] followed up in the clinic thereafter. [facility] 12-09-2021 Note CONSULTATION CONSULTATION DATE: 12/09/2021 CHIEF [...] to proceed. CC: Jaymie Phoenix, MEREDITH [facility] Evaluation + Plan note No data available for this section [facility] [place] Evaluation note Diagnosis COPD mixed type (CMS/HCC)- Primary Tobacco dependence Tobacco use disorder BMI 40.0-44.9, adult (CMS/HCC) Body mass index [BMI] 40.0-44.9, adult (Z68.41) Primary hypertension (CMS/HCC) Unspecified essential hypertension Bilateral lower extremity edema [facility] No data available for this section [facility] [place] Progress note No data available for this section [facility] [place] Summary Purpose Family History No Family History Records FoundNo Family History Records FoundNo Family History Records FoundNo Family History Records FoundNo Family History Records Found Advance Directives No Advanced Directives Records FoundNo Advanced Directives Records FoundNo Advanced Directives Records FoundNo Advanced Directives Records FoundNo Advanced Directives Records Found Additional Source Comments INFORMATION SOURCE (unrecogn ized section and content) DATE CREATED AUTHOR 12/26/2021 [facility] dical Specialist DATE CREATED AUTHOR AUTHOR'S ORGANIZ ATION 03/25/[address] [facility] DATE CREATED AUTHOR AUTHOR'S ORGANIZ ATION 07/17/2022 [facility] DATE CREATED AUTHOR AUTHOR'S ORGANIZ ATION 02/20/2023 [facility] DATE CREATED AUTHOR AUTHOR'S ORGANIZ ATION 03/17/2023 [facility] Special[facility] EPIC Patient Care team informatio n (unrecognized section and content) School Laboratory Technician Relationship Specialty Start Date End Date Jaymie Phoenix NP [address] [place] [address] Nurse Practitioner Family Medicine 01/26/23 [employer] Laboratory Technician Relationship Specialty Start Date End Date Shaikh Marquez MD [address] [place] [address] PCP - General Internal Medicine 03/25/23 Jaymie Phoenix NP [address] [place] [address] Nurse Practitioner Family Medicine 01/26/23 FOR RECORDS [...] BE BASED ON THE PRIMARY CLINICAL RECORDS. [email or web address] provides no warranty or guarantee of the accuracy or completeness of information in this document.
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
[2023-03-26 10:03] VITALS: O2SAT 95
[2023-03-26 10:08] VITALS: PULSE 72; O2SAT 94
[2023-03-26] MEDS: IPRATROPIUM/ALBUTEROL SULFATE 3 ML AMPUL.NEB 6 ML IH (10:08)
[2023-03-26 10:21] LABS: Basophils Percent Auto 0.6 % (0.2-2.0); Eosinophils Absolute Auto 0.1 10^3/uL (0.0-0.7); Eosinophils Percent Auto 1.8 % (0.9-7.0); Hematocrit 42.5 % (36.0-48.0); Hemoglobin 13.5 g/dL (12.0-16.0); Immature Granulocytes Abs Auto 0.02 10^3/uL (0.00-0.03); Immature Granulocytes Pct Auto 0.4 % (0.0-0.5); Lymphocytes Absolute Auto 1.6 10^3/uL (1.2-3.8); Lymphocytes Percent Auto 31.1 % (20.5-60.0); Mean Corpuscular HGB Conc 31.8 g/dL (29.9-35.2); Mean Corpuscular Hemoglobin 33.4 pg (26.7-34.0); Mean Corpuscular Volume 105.2 fL (81.0-99.0); Mean Platelet Volume 11.3 fL (9.5-13.5); Monocytes Absolute Auto 0.4 10^3/uL (0.3-0.8); Monocytes Percent Auto 7.9 % (1.7-12.0); Neutrophils Absolute Auto 2.9 10^3/uL (1.4-6.5); Neutrophils Percent Auto 58.2 % (43.0-75.0); PCO2 VBG 55.3 mmHg (40.0-52.0); Platelet Count 150 10^3/uL (150-450); Red Blood Count 4.04 10^6/uL (4.20-5.40); White Blood Count 5.1 10^3/uL (4.0-11.0)
[2023-03-26 10:58] VITALS: PULSE 70
[2023-03-26 11:02] LABS: Anion Gap 11.4; BUN Creatinine Ratio 10.6; Calcium 8.9 mg/dL (8.5-10.1); Carbon Dioxide 31.6 mmol/L (21.0-32.0); Chloride 105 mmol/L (98-107); Estimated GFR (African America 54 (>=60); Estimated GFR (Non-African Ame 45 (>=60); Glucose 106 mg/dL (74-106); Sodium 144 mmol/L (136-145); Troponin I High Sensitivity 6.7 pg/mL (4.0-51.3)
== END 2023-03-26 11:46 | disposition home or self-care (01) ==
PROVIDERS: Emergency Provider Emergency Medicine; PCP Nurse Practitioner
DX: J40 Bronchitis, not specified as acute or chronic (principal); R06.00 Dyspnea, unspecified; F17.210 Nicotine dependence, cigarettes, uncomplicated
CPT/HCPCS: 36415; 71275; 80048; 82800; 83880; 84484; 85025; 93005; 94640; 99285; Q9967

== ENCOUNTER 2023-04-19 14:55 | Outpatient (OUT) | payer MEDICARE, SELFPAY ==
--- OUTSIDE RECORDS SUMMARY | 2023-04-19 15:02 | XMS_ITS | CCD ---
Author Name Unknown Address [address] [place] [address] Organization [facility] Care Team Providers Care Mold Presser Name Role Phone JAYMIE PHOENIX Primary Care Physician Bryson SAMPSON Attending Unavailable JAYMIE PHOENIX Referring Unavailabl e NILL, Bryson Hernandez Attending Unavailable Aichholz, Tracy Saldaña Referring Unavailable NILL, Bryson Hernandez Attending Unavailable NILL, Bryson Hernandez Attending Unavailable NILL, Bryson Hernandez Attending Unavailable AICHHOLZ, ELECTRONIC PAGE MAKEUP SYSTEM OPERATOR JAYMIE Primary Care Unavailable ALLAN ., DR JIM Mcdonnell Attending Unavailable ALLAN ., DR JIM Mcdonnell Admitting Unavailable ALLAN ., DR JIM Mcdonnell Consulting Unavailable ROBINSON ., GLENROY Admitting Unavailable ROBINSON ., GLENROY Attending Unavailable MEHRDAD .SJ Consulting Unavailable AICHHOLZ, ELECTRONIC PAGE MAKEUP SYSTEM OPERATOR JAYMIE Primary Care Unavailable MENDEZ ., MR DEMETRIUS Admitting Unavailable MENDEZ ., MR ROMO Attending Unavailable AICHHOLZ, ELECTRONIC PAGE MAKEUP SYSTEM OPERATOR JAYMIE Primary Care Unavailable AICHHOLZ, ELECTRONIC PAGE MAKEUP SYSTEM OPERATOR JAYMIE Admitting Unavailable JUANITA, DR NADINE Caldwell Consulting Unavailable AICHHOLZ, ELECTRONIC PAGE MAKEUP SYSTEM OPERATOR JAYMIE Primary Care Unavailable AICHHOLZ, ELECTRONIC PAGE MAKEUP SYSTEM OPERATOR JAYMIE Attending Unavailable AICHHOLZ, ELECTRONIC PAGE MAKEUP SYSTEM OPERATOR JAYMIE Consulting Unavailable AICHHOLZ, ELECTRONIC PAGE MAKEUP SYSTEM OPERATOR JAYMIE Admitting Unavailable JUANITA, DR NADINE Caldwell Consulting Unavailable AICHHOLZ, ELECTRONIC PAGE MAKEUP SYSTEM OPERATOR JAYMIE Primary Care Unavailable AICHHOLZ, ELECTRONIC PAGE MAKEUP SYSTEM OPERATOR JAYMIE Attending Unavailable AICHHOLZ, ELECTRONIC PAGE MAKEUP SYSTEM OPERATOR JAYMIE Consulting Unavailable AICHHOLZ, ELECTRONIC PAGE MAKEUP SYSTEM OPERATOR JAYMIE Primary Care Unavailable NILL ., DR MASSEY Admitting Unavailable NILL ., DR MASSEY Attending Unavailable NILL ., DR MASSEY Consulting Unavailable SONDRA FELICIANO Consulting Unavailable ROBINSON ., GLENROY Admitting Unavailable ROBINSON ., GLENROY Attending Unavailable ROBINSON ., GLENROY Consulting Unavailable AICHHOLZ, ELECTRONIC PAGE MAKEUP SYSTEM OPERATOR JAYMIE Primary Care Unavailable ALLAN ., DR JIM Mcdonnell Attending Unavailable ALLAN ., DR JIM Mcdonnell Consulting Unavailable ALLAN ., DR JIM Mcdonnell Admitting Unavailable AICHHOLZ, ELECTRONIC PAGE MAKEUP SYSTEM OPERATOR JAYMIE Primary Care Unavailable MARIA FERNANDA SOSA Consulting Unavailable ALLAN ., DR JIM Mcdonnell Attending Unavailable ALALN ., DR JIM Mcdonnell Consulting Unavailable ALLAN ., DR JIM Mcdonnell Admitting Unavailable AICHHOLZ, ELECTRONIC PAGE MAKEUP SYSTEM OPERATOR JAYMIE Primary Care Unavailable ALLAN ., DR JIM Mcdonnell Admitting Unavailable ALLAN ., DR JIM Mcdonnell Attending Unavailable ALLAN ., DR JIM Mcdonnell Consulting Unavailable AICHHOLZ, ELECTRONIC PAGE MAKEUP SYSTEM OPERATOR JAYMIE Primary Care Unavailable ALLAN ., DR JIM Mcdonnell Admitting Unavailable ALLAN ., DR JIM Mcdonnell Attending Unavailable AICHHOLZ, ELECTRONIC PAGE MAKEUP SYSTEM OPERATOR JAYMIE Primary Care Unavailable THORNE ., JENNY Consulting Unavailable ALLAN ., DR JIM Mcdonnell Admitting Unavailable ALLAN ., DR JIM Mcdonnell Attending Unavailable ALLAN ., DR JIM Mcdonnell Consulting Unavailable AICHHOLZ, ELECTRONIC PAGE MAKEUP SYSTEM OPERATOR JAYMIE Primary Care Unavailable ALLAN ., DR JIM Mcdonnell Admitting Unavailable ALLAN ., DR JIM Mcdonnell Attending Unavailable ALLAN ., DR JIM Mcdonnell Consulting Unavailable AICHHOLZ, ELECTRONIC PAGE MAKEUP SYSTEM OPERATOR JAYMIE Primary Care Unavailable THORNE ., JENNY Consulting Unavailable ALLAN ., DR JIM Mcdonnell Admitting Unavailable ALLAN ., DR JIM Mcdonnell Attending Unavailable AICHHOLZ, ELECTRONIC PAGE MAKEUP SYSTEM OPERATOR JAYMIE Primary Care Unavailable ALLAN ., DR JIM Mcdonnell Attending Unavailable ALLAN ., DR JIM Mcdonnell Consulting Unavailable ALLAN ., DR JIM Mcdonnell Admitting Unavailable AICHHOLZ, ELECTRONIC PAGE MAKEUP SYSTEM OPERATOR JAYMIE Primary Care Unavailable LAKSHMIPATHY ., PIPPA Consulting Evelyn vailable NILL ., DR MASSEY Consulting Unavailable NILL ., DR MASSEY Admitting Unavailable AICHHOLZ, ELECTRONIC PAGE MAKEUP SYSTEM OPERATOR JAYMIE Primary Care Unavailable NILL ., DR MASSEY Attending Unavailable AICHHOLZ, ELECTRONIC PAGE MAKEUP SYSTEM OPERATOR JAYMIE Admitting Unavailable AICHHOLZ, ELECTRONIC PAGE MAKEUP SYSTEM OPERATOR JAYMIE Attending Unavailable AICHHOLZ, ELECTRONIC PAGE MAKEUP SYSTEM OPERATOR JAYMIE Consulting Unavailable AICHHOLZ, ELECTRONIC PAGE MAKEUP SYSTEM OPERATOR JAYMIE Primary Care Unavailable DR MELISSA ROSENBERG Consulting Unavailable AICHHOLZ, ELECTRONIC PAGE MAKEUP SYSTEM OPERATOR JAYMIE Admitting Unavailable AICHHOLZ, ELECTRONIC PAGE MAKEUP SYSTEM OPERATOR JAYMIE Attending Unavailable AICHHOLZ, ELECTRONIC PAGE MAKEUP SYSTEM OPERATOR JAYMIE Consulting Unavailable AICHHOLZ, ELECTRONIC PAGE MAKEUP SYSTEM OPERATOR JAYMIE Primary Care Unavailable LORI FROST Consulting Unavailable ALLAN ., DR JIM Mcdonnell Attending Unavailable ALLAN ., DR JIM Mcdonnell Admitting Unavailable AICHHOLZ, ELECTRONIC PAGE MAKEUP SYSTEM OPERATOR JAYMIE Primary Care Unavailable AICHHOLZ, ELECTRONIC PAGE MAKEUP SYSTEM OPERATOR JAYMIE Primary Care Unavailable SAMSA ., MAGDALENA Admitting Unavailable SAMSA ., MAGDALENA Attending Unavailable SAMSA ., MAGDALENA Consulting Unavailable ALLAN ., DR JIM Mcdonnell Attending Unavailable ALLAN ., DR JIM Mcdonnell Admitting Unavailable ALLAN ., DR JIM Mcdonnell Consulting Unavailable AICHHOLZ, ELECTRONIC PAGE MAKEUP SYSTEM OPERATOR JAYMIE Primary Care Unavailable AICHHOLZ, ELECTRONIC PAGE MAKEUP SYSTEM OPERATOR JAYMIE Admitting Unavailable AICHHOLZ, ELECTRONIC PAGE MAKEUP SYSTEM OPERATOR JAYMIE Attending Unavailable AICHHOLZ, ELECTRONIC PAGE MAKEUP SYSTEM OPERATOR JAYMIE Consulting Unavailable AICHHOLZ, ELECTRONIC PAGE MAKEUP SYSTEM OPERATOR JAYMIE Primary Care Unavailable Aichholz IT SALES CONSULTANT, Jaymie Unavailable Shaikh Marquez MD Primary Care Provider ALBAN, JAYMIE Attending Unavailable ALBAN, JAYMIE Attending Unavailable ALBAN, JAYMIE Attending Unavailable Alphonse Damian Attending Unavailab Alphonse Todd Admitting Unavailab Jaymie Troy J Primary Care Unavailable Allergies Allergy Classification Reported Allergen(s) Allergy Type Date of Onset Reaction(s) Facility (9 sources) Penicillins; Translations: [penicillins] Drug allergy 4 Dyspnea (finding), Weal (disorder), Hives, Shortness of breath, Swelling [facility] [place] (2 sources) predniSONE; Translations: [prednisone] Drug Allergy Dyspnea (finding) [facility] [place] (1 source) prednisoLONE Drug Allergy [facility] Repository (5 sources) Prednisone Propensity to adverse reactions 3 Itching [facility] Medications Current Medications Medication Drug Class(es) Dates Sig (Normalized) Sig (Original) [id number] 200 actuat albuterol 0.09 mg/actuat metered dose inhaler (5 sources) beta2-Adrenergic Agonist take 2 puff(s) by inhalation every six hours for wheezing albuterol HFA 90 mcg/act inhaler Inhale 2 puffs every 6 (six) hours if needed for shortness of breath or wheezing 0 Active amitriptyline hydrochloride 100 mg oral tablet (6 sources) Tricyclic Antidepressant Start: 01-22-2022 amitriptyline 100 mg oral tablet 50 mg = 0.5 tab(s), Oral, Once a day (at bedtime), Refills(s) 0 Start Date: 01/22/22 Status: Ordered take 1 tablet by mouth at bedtim e amitriptyline (Elavil) 50 MG tablet Take 50 mg by mouth at bedtime 0 Active atorvastatin 20 mg oral tablet (5 sources) HMG-CoA Reductase Inhibitor Start: 02-28-2023 End: 03-30-2023 take 1 tablet by mouth in the evening atorvastatin (Lipitor) 20 MG tablet Indications: Mixed hyperlipidemia (CMS/HCC) Take 1 tablet (20 mg) by mouth in the evening 30 tablet 2 02/28/2023 03/30/2023 Active 120 actuat budesonide 0.16 mg/actuat / formoterol fumarate 0.0048 mg/actuat / glycopyrrolate 0.009 mg/actuat metered dose inhaler (5 sources) Corticosteroid, beta2-Adrenergic Agonist Start: 09-29-2022 take 2 puff(s) by inhalation in the morning Breztri Aerosphere 160-9-4.8 MCG/ACT aerosol Inhale 2 puffs in the morning and 2 puffs before bedtime. 0 09/29/2022 Active bumetanide 0.5 mg oral tablet (2 sources) Loop Diuretic Start: 03-25-2023 End: 04-08-2023 take 1 tablet by mouth in the morning bumetanide (Bumex) 0.5 MG tablet Indications: Bilateral lower extremity edema Take 1 tablet (0.5 mg) by mouth in the morning for 14 days. 14 tablet 0 03/25/2023 04/08/2023 Active cholecalciferol 0.125 mg oral tablet (5 sources) Vitamin D cholecalciferol (Vitamin D-3) 125 MCG (5000 UT) tablet as directed Orally 0 Active ibuprofen 800 mg oral tablet (5 sources) Nonsteroidal Anti-inflammatory Drug Start: 01-08-2023 take 1 tablet by mouth every eight hours as needed ibuprofen 800 MG tablet Take 800 mg by mouth every 8 (eight) hours if needed 0 01/08/2023 Active lamoTRIgine 100 mg oral tablet (11 sources) Mood Stabilizer, Anti-epileptic Agent Start: 01-22-2022 take 1 tablet by mouth once daily in the morning, then take 2 tablets by mouth once daily in the evening Lamictal 100 mg Tab 1 po QAM and 2 po QPM, Refills(s) 0 Start Date: 01/22/22 Status: Ordered lamoTRIgine (Doll ICtal) 100 MG tablet Take 150 mg by mouth in the morning. In the morning . 0 Active take 1 tablet by mouth at bedtim e lamoTRIgine (LaMICtal) 200 MG tablet Take 200 mg by mouth at bedtime 0 Active lidocaine 0.05 mg/mg medicated patch (5 sources) Antiarrhythmic, Amide Local Anesthetic apply 1 dose transdermal route every twelve hours in the morning lidocaine (Lidoderm) 5 % patch Apply 1 patch topically in the morning. Remove & discard patch within 12 hours or as directed by MD.. 0 Active meloxicam 15 mg oral tablet (6 sources) Nonsteroidal Anti-inflammatory Drug Start: 03-15-19 End: 04-14-19 24 take 1 tablet by mouth in the morning meloxicam (Mobic) 15 MG tablet Indications: Fibromyalgia Take 1 tablet (15 mg) by mouth in the morning. 30 tablet 5 03/15/2023 04/14/2023 Active Start: 01-22-2022 [facility]am 15 mg Tab 15 mg = 1 tab(s), Oral, Daily, Refills(s) 0 Start Date: 01/22/22 Status: Ordered omeprazole 40 mg delayed release oral capsule (6 sources) Proton Pump Inhibitor Start: 01-22-2022 take 1 capsule by mouth once daily omeprazole 40 mg Cap-DR 40 mg = 1 cap(s), Oral, Daily, Refills(s) 0 Start Date: 01/22/22 Status: Ordered prazosin 2 mg oral capsule (6 sources) alpha-Adrenergic Lenora Start: 01-22-2022 take 1 capsule by mouth at bedtime prazosin 2 mg oral capsule 2 mg = 1 cap(s), Oral, Bedtime, Refills(s) 0 Start Date: 01/22/22 Status: Ordered pregabalin 100 mg oral capsule (6 sources) Start: 01-06-2023 take 1 capsule by mouth twice daily pregabalin (Lyrica) 100 MG capsule Indications: Fibromyalgia TAKE 1 CAPSULE BY MOUTH TWICE DAILY 60 capsule 5 01/06/2023 Active Start: 01-22-2022 take 1 capsule by mo [facility] twice daily pregabalin 100 mg Cap 100 mg = 1 cap(s), Oral, BID, Refills(s) 0 Start Date: 01/22/22 Status: Ordered propranolol hydrochloride 40 mg oral tablet (6 sources) beta-Adrenergic Lenora Start: 01-06-2023 take 1 tablet by mouth twice daily propranolol (Inderal) 40 MG tablet Indications: Personal history of other diseases of the nervous system and sense organs TAKE 1 TABLET BY MOUTH TWICE DAILY 60 tablet 5 01/06/2023 Active Start: 01-22-2022 take 1 tablet by aaron th twice daily propranolol 40 mg Tab 40 mg = 1 tab(s), Oral, BID, Refills(s) 0 Start Date: 01/22/22 Status: Ordered QUEtiapine 100 mg oral tablet (11 sources) Atypical Antipsychotic Start: 01-22-2022 SEROque l [...] Status: Ordered spironolactone 50 mg oral tablet (6 sources) Aldosterone Antagonist Start: 03-15-2023 End: 04-14-2023 [...] Status: Ordered tiZANidine 4 mg oral tablet (6 sources) Central alpha-2 Adrenergic Agonist Start: 01-22-2022 [...] Date Documented Da te Episodic/Chronic Anxiety disorders (6 sources) Mixed anxiety and depressive disorder; Translations: [Anxiety disorder, unspecified] Onset: 4 01-22-2022 Chronic Chronic obstructive pulmonary disease and bronchiectasis (13 sources) Chronic obstructive pulmonary disease, unspecified; Translations: [Chronic obstructive lung disease] Onset: 3 Chronic Chronic obstructive pulmonary disease and bronchiectasis (1 source) Bronchitis, not specified as acute or chronic; Translations: [BRONCHITIS NOT SPEC ACUTE/CHRON] Onset: 3 Episodic Deficiency and other anemia (6 sources) Acute megaloblastic anemia; Translations: [Other megaloblastic anemias, not elsewhere classified] Onset: 4 01-22-2022 Episodic Deficiency and other anemia (1 source) Other megaloblastic anemias, not elsewhere classified; Translations: [OTHER MEGALOBLASTIC ANEMIAS NEC] Onset: 3 Episodic Diabetes mellitus without complication (4 sources) Hyperglycemia, unspecified; Translations: [HYPERGLYCEMIA UNSPECIFIED] Onset: 3 Episodic Disorders of lipid metabolism (12 sources) Hyperlipidemia; Translations: [Hyperlipidemia, unspecified] Onset: 3 Resolved: 4 01-22-2022 Chronic Esophageal disorders (7 sources) Gastroesophageal reflux disease; Translations: [Gastro-esophageal reflux disease without esophagitis] Onset: 2 01-22-2022 Chronic Essential hypertension (20 sources) Essential hypertension; Translations: [Essential (primary) hypertension] Onset: 2 Resolved: 4 01-22-2022 Chronic Headache; including migraine (11 sources) Migraine; Translations: [Migraine without aura] Onset: 3 Resolved: 4 01-22-2022 Chronic Joint disorders and dislocations; trauma-related (10 sources) Derangement of left knee; Translations: [Unspecified internal derangement of left knee] Onset: 4 02-18-2023 Chronic Nutritional deficiencies (7 sources) Vitamin D deficiency; Translations: [Vitamin D deficiency, unspecified] Onset: 3 01-22-2022 Chronic Nutritional deficiencies (6 sources) Cobalamin deficiency; Translations: [Deficiency of other specified B group vitamins] Onset: 4 01-22-2022 Episodic Open wounds of extremities (10 sources) Open wound of left foot; Translations: [Unspecified open wound, left foot, initial encounter] Onset: 3 Resolved: 3 01-26-2023 Episodic Osteoarthritis (5 sources) Osteoarthritis of knee; Translations: [Osteoarthritis of knee, unspecified] Onset: 4 02-18-2023 Chronic Other and unspecified benign neoplasm (5 sources) Hyperplastic polyp of intestine; Translations: [Polyp of colon] Onset: 4 02-18-2023 Episodic Other bone disease and musculoskeletal deformities (6 sources) Osteopenia; Translations: [Other specified disorders of bone density and structure, unspecified site] Onset: 4 01-22-2022 Episodic Other connective tissue disease (11 sources) Fibromyalgia; Translations: [Fibromyalgia] Onset: 2 Resolved: 4 01-22-2022 Episodic Other connective tissue disease (1 source) Other muscle spasm; Translations: [OTHER MUSCLE SPASM] Onset: 3 Episodic Other ear and sense organ disorders (6 sources) Hearing loss; Translations: [Unspecified hearing loss, unspecified ear] Onset: 4 01-22-2022 Chronic Other gastrointestinal disorders (1 source) Abnormal feces; Translations: [Other fecal abnormalities] Onset: 2 Episodic Other lower respiratory disease (1 source) Shortness of breath; Translations: [SHORTNESS OF BREATH] Onset: 3 Episodic Other lower respiratory disease (4 sources) Dyspnea; Translations: [Shortness of breath] Onset: 4 03-25-2023 Episodic Other nervous system disorders (1 source) Other chronic pain; Translations: [OTHER CHRONIC PAIN] Onset: 3 Chronic Other nutritional; endocrine; and metabolic disorders (12 sources) Body mass index 40+ - severely obese; Translations: [Body mass index (BMI) 40.0-44.9, adult] Onset: 4 02-03-2022 Chronic Other nutritional; endocrine; and metabolic disorders (6 sources) Obesity; Translations: [Obesity, unspecified] Onset: 4 01-22-2022 Chronic Other nutritional; endocrine; and metabolic disorders (1 source) Obesity, unspecified; Translations: [OBESITY UNSPECIFIED] Onset: 3 Chronic Other nutritional; endocrine; and metabolic disorders (5 sources) Severe obesity; Translations: [Morbid (severe) obesity due to excess calories] Onset: 3 01-26-2023 Chronic Other screening for suspected conditions (not mental disorders or infectious disease) (11 sources) Stool DNA-based colorectal cancer screening positive; Translations: [Other fecal abnormalities] Onset: 2 02-03-2022 Episodic Residual codes; unclassified (1 source) Sleep apnea, unspecified; Translations: [SLEEP APNEA UNSPECIFIED] Onset: 2 Chronic Residual codes; unclassified (9 sources) Bilateral lower limb edema; Translations: [Localized edema] Onset: 3 03-16-2023 Episodic Residual codes; unclassified (4 sources) Edema of right lower limb; Translations: [Localized edema] Onset: 4 03-25-2023 Episodic Spondylosis; intervertebral disc disorders; other back problems (10 sources) Spondylosis without myelopathy or radiculopathy, lumbar region; Translations: [Other intervertebral disc degeneration, lumbar region] Onset: 2 Chronic Spondylosis; intervertebral disc disorders; other back problems (6 sources) Chronic low back pain; Translations: [Chronic lumbar pain] Onset: 4 01-22-2022 Episodic Substance-related disorders (8 sources) Nicotine dependence, cigarettes, uncomplicated; Translations: [Tobacco [...] 2 Episodic Other aftercare (1 source) Other halfway (current) drug therapy; Translations: [OTH GRAIN SCOOPER CURRENT DRUG THERAPY] Onset: 3 Episodic Other [...] UNSPECIFIED] Onset: 2 Episodic Other liver diseases (5 sources) Aspartate aminotransferase serum level raised; Translations: [Elevated SGOT (AST)] Onset: 2 02-18-2023 Episodic Other non-traumatic joint disorders (6 sources) Pain in left knee; Translations: [Pain in joint, lower leg] Onset: 2 Resolved: 4 03-16-2023 Episodic Other skin disorders (5 sources) Decorative tattoo; Translations: [Other specified disorders of pigmentation] Onset: 2 Resolved: 4 03-16-2023 Episodic Other upper respiratory infections (5 sources) Acute sinusitis; Translations: [Other acute sinusitis] Onset: 3 Resolved: 4 03-16-2023 Episodic Residual codes; unclassified (6 sources) Edema of lower extremity; Translations: [Localized edema] Onset: 4 Resolved: 4 01-22-2022 Episodic Residual codes; unclassified (6 sources) Tobacco user; Translations: [Tobacco use] Onset: 4 Resolved: 4 01-22-2022 Episodic Residual codes; unclassified (1 source) Acquired absence of both cervix and uterus; Translations: [ACQUIRED ABSENCE BOTH CERVIX AND UTERUS] Onset: 3 Episodic Residual codes; unclassified (1 source) Tobacco use; Translations: [TOBACCO USE] Onset: 2 Episodic Residual codes; unclassified (1 source) Insomnia, unspecified; Translations: [INSOMNIA UNSPECIFIED] Onset: 2 Episodic Residual codes; unclassified (5 sources) Exposure to carbon monoxide; Translations: [Contact with and (suspected) exposure to other hazardous substances] Onset: 4 Resolved: 4 03-16-2023 Episodic Screening and history of mental health and substance abuse codes (5 sources) Tobacco use and exposure - finding; Translations: [Personal history of nicotine dependence] Onset: 2 Resolved: 4 03-16-2023 Episodic Unclassified (1 source) LOW BACK PAIN, UNSPECIFIED; Translations: [LOW BACK PAIN, UNSPECIFIED] Onset: 3 Unclassified (1 source) CONTACT W/AND (SUSP) EXPOS COVID-19; Translations: [CONTACT W/AND (SUSP) EXPOS COVID-19] Onset: 3 Results Test Name Value Interpretation Reference Range [facility] MODE ROOM AIR Normal [facility] Comment on above: Performed By: #### A BG ####[facility] [address] [place] [id number]. Phani CAMPBELLS TEST Positive Normal [facility] Comment on above: Performed By: #### A BG ####[facility] [address] [place], [place] [address]Ac. Phani El Base excess Calc (Bld) [Moles/Vol] 1.4 mmol/L Normal -2.0-2.0 [facility] Comment on above: Performed By: #### A BG ####[facility] [address] [place] [address]Dr. Phani El BIPAP PRESSURE Normal [facility] Comment on above: Performed By: #### A BG ####[facility] [address] [place] [address]Dr. Phani El CPAP Normal [facility] Comment on above: Performed By: #### A BG ####[facility] [address] [place] [address]Dr. Phani El FIO2 Normal [facility] Comment on above: Performed By: #### A BG ####[facility] [address] [place], [place] [address]Dr. Phani El HCO3 (Bld) [Moles/Vol] 26.2 mmol/L Critically high 22.0-26.0 [facility] Comment on above: Performed By: #### A BG ####[facility] [address] [place], [place] [address]Dr. Phani El LPM Normal [facility] Comment on above: Performed By: #### A BG ####[facility] [address] [place], [place] [address]Dr. Phani El MINUTE VOLUME Normal [facility] Comment on above: Performed By: #### A BG ####[facility] [address] [place], [place] [address]Dr. Phani El Oxygen (Bld) [Partial pressure] 56.1 mm[Hg] Critically low 80.0-100.0 [facility] Comment on above: Performed By: #### A BG ####[facility] [address] [place], [place] [address]Dr. Phani El Oxygen saturation in Blood 92.0 % Critically low 95.0-100.0 [facility] Comment on above: Performed By: #### A BG ####[facility] [address] [place], [place] [address]Dr. Phani El PCO2 42.6 mmHg Normal 35.0-45.0 [facility] Comment on above: Performed By: #### A BG ####[facility] [address] [place] [address]Dr. Phani El PEEP [facility] Comment on above: Performed By: #### A BG ####[facility] [address] [place] [address]Dr. Phani El pH (Bld) 7.398 [pH] Normal 7.350-7.450 [facility] Comment on above: Performed By: #### A BG ####[facility] [address] [place] [address]Dr. Phani El PIP [facility] Comment on above: Performed By: #### A BG ####[facility] [address] [place] [address]Dr. Phani El PS [facility] Comment on above: Performed By: #### A BG ####[facility] [address] [place] [address]Dr. Phani El PUNCTURE SITE RR [facility] Comment on above: Performed By: #### A BG ####[facility] [address] [place] [address]Dr. Phani El RATE [facility] Comment on above: Performed By: #### A BG ####[facility] [address] [place] [address]Dr. Phani El VENT MODE [facility] Comment on above: Performed By: #### A BG ####[facility] [address] [place] [address]Dr. Phani El VT [facility] Comment on above: Performed By: #### A BG ####[facility] [address] [place], [place] [address]Dr. Phani El ECHOCARDIO M/2D COMPLETEon 0 07-08-2022 ECHOCARDIO M/2D COMPLETE Patient: FRANKY SRINIVASAN I. Exam Date: 07/08/2022 : 1965 Gender:F Ordering : DR. MAGDALENA DOWNING . Admission #: [id number] Family : MEREDITH [place] ELECTRON[employer] PAGE MAKEUP SYSTEM OPERATOR Order #: [id number] CLICK HERE TO VIEW EXAM ECHOCARDIOGRAM REPORT [...] Johnathan Garcia M.D. on 07/08/2022 at 18:[address] [facility] [address] LUNG CANCER SCREENINGon 0 05-29-2022 CT [...] MELISSA ROSENBERG Date: 2022-05-29 09:36 Normal [facility] CBC AUTO DIFFon 05-05-2022 BASO # 0.1 103/ul Normal 0.0-0.1 [facility] [facility] Comment on above: Performed By: #### C BC #### [facility] [address] [place] [address] Dr. Phani El Basophils/100 WBC (Bld) 0.8 % Normal 0.2-2.0 [facility] Comment on above: Performed By: #### C BC #### [facility] [address] [place] [address] Dr. Phani El EO # 0.1 103/ul Normal 0.0-0.7 [facility] Comment on above: Performed By: #### C BC #### [facility] [address] [address] [address] Phani El Eosinophils/100 WBC (Bld) 2.0 % Normal 0.9-7.0 [facility] Comment on above: Performed By: #### C BC #### [facility] [address] [place] [address] Dr. Phani El Erythrocyte distribution width (RBC) [Ratio] 14.0 % Normal 11.0-15.0 [facility] Comment on above: Performed By: #### C BC #### [facility] [address] [place] [address] Dr. Phani El Hematocrit (Bld) [Volume fraction] 48.7 % Critically high 36.0-48.0 [facility] Comment on above: Performed By: #### C BC #### [facility] [address] [place] [address] Dr. Phani El Hemoglobin (Bld) [Mass/Vol] 15.9 g/dL Normal 12.0-16.0 [facility] Comment on above: Performed By: #### C BC #### [facility] [address] [place] [address] Dr. Phani El IG # 0.05 10e3/ul Critically high 0.00-0.03 [facility] Comment on above: Performed By: #### C BC #### [facility] [address] [place] [address] Dr. Phani El IG % 0.8 % Critically high 0.0-0.5 [facility] [place] Comment on above: Performed By: #### C BC #### [facility] [address] [place] [address] Dr. Phani El LYMPH # 1.9 103/ul Normal 1.2-3.8 [facility] Comment on above: Performed By: #### C BC #### [facility] [address] [place] [address] Dr. Phani El Lymphocytes/100 WBC (Bld) 30.1 % Normal 20.5-60.0 [facility] Comment on above: Performed By: #### C BC #### [facility] [address] [place] [address] Dr. Phani El MANUAL DIFF REQ NO Normal [facility] Comment on above: Performed By: #### C BC #### [facility] [address] [place] [address] Dr. Phani El MCH (RBC) [Entitic mass] 32.9 pg Normal 26.7-34.0 [facility] Comment on above: Performed By: #### C BC #### [facility] [address] [place] [address] Dr. Phani El MCHC (RBC) [Mass/Vol] 32.6 g/dL Normal 29.9-35.2 [facility] Comment on above: Performed By: #### C BC #### [facility] [address] [place] [address] Dr. Phani El MCV (RBC) [Entitic vol] 100.8 fL Critically high 81.0-99.0 [facility] Comment on above: Performed By: #### C BC #### [facility] [address] [place] [address] Dr. Phani El MONO # 0.5 103/ul Normal 0.3-0.8 [facility] Comment on above: Performed By: #### C BC #### [facility] [address] [place] [address] Dr. Phani El Monocytes/100 WBC (Bld) 7.2 % Normal 1.7-12.0 [facility] Comment on above: Performed By: #### C BC #### [facility] [address] [place] [address] Dr. Phani El NEUT # 3.8 103/ul Normal 1.4-6.5 [facility] Comment on above: Performed By: #### C BC #### [facility] [address] [place] [address] Dr. Phani El Neutrophils/100 WBC (Bld) 59.1 % Normal 43.0-75.0 [facility] Comment on above: Performed By: #### C BC #### [facility] [address] [place] [address] Dr. Phani El Platelet mean volume (Bld) [Entitic vol] 11.0 fL Normal 9.5-13.5 [facility] Comment on above: Performed By: #### C BC #### [facility] [address] [place] [address] Dr. Phani El PLT 167 103/ul Normal 150-450 [facility] Comment on above: Performed By: #### C BC #### [facility] [address] [address] [address] Phani El RBC 4.83 106/ul Normal 4.20-5.40 [facility] Comment on above: Performed By: #### C BC #### [facility] [address] [address] [address] Phani El WBC 6.4 103/ul Normal 4.0-11.0 [facility] Comment on above: Performed By: #### C BC #### [facility] [address] [address] [address] Phani El GLYCOHEMOGLOBIN A1Con 2022 ADA RECOMMENDATION SEE BELOW Normal [facility] Comment on above: Result Comment: ADA RECOMMENDED LIMIT 4.0 - 6.0 ADA THERAPEUTIC TARGET < 7.0 ACTION SUGGESTED > 7.0 Performed By: #### A 1C ####[facility] [address] [address]Dr. Phani El Glucose [Mass/Vol] 114 mg/dL Normal [facility] Comment on above: Performed By: #### A 1C ####[facility] [address] [address]Dr. Phani El HbA1c (Bld) [Mass fraction] 5.6 % Normal 4.5-6.2 [facility] Comment on above: Performed By: #### A 1C ####[facility] [address] [address]Dr. Phani El LIPID PROFILEon 05-05-2022 CHOL-HDL RATIO NORM SEE BELOW Normal [facility] Comment on above: Result Comment: 3.3 - 4.4 LOW RISK 4.4 - 7.1 AVERAGE RISK 7.1 - 11.0 MODERATE RISK >11.0 HIGH RISK Performed By: #### C MP, LIPID #### [facility] [address] [address] [address] Phani El Cholesterol [Mass/Vol] 178 mg/dL Normal <=200 [facility] Comment on above: Performed By: #### C MP, LIPID #### [facility] [address] [address] [address] Phani El Cholesterol in HDL [Mass/Vol] 54 mg/dL Normal 40-60 [facility] Comment on above: Performed By: #### C MP, LIPID #### [facility] [address] [address] [address] Phani El Cholesterol in LDL [Mass/Vol] 86.6 mg/dL Normal [facility] Comment on above: Performed By: #### C MP, LIPID #### [facility] [address] [address] [address] Phani El Cholesterol.total/Ch olesterol in HDL [Mass ratio] 3.3 {ratio} Normal [facility] Comment on above: Performed By: #### C MP, LIPID #### [facility] [address] [address] [address] Phani El HDL NORMAL > or = 60 mg/dl - LO W CARDIOVASCULAR RISK <40 mg/dl - HIGH CARDIOVASCULAR RISK Normal [facility] Comment on above: Performed By: #### C MP, LIPID #### [facility] [address] [address] [address] Phani El LDL CALC NORMAL SEE BELOW Normal [facility] [place] Comment on above: Result Comment: <100 mg/dl OPTIMAL 100 - 129 mg/dl NEAR OR ABOVE OPTIMAL 130 - 159 mg/dl BORDERLINE HIGH 160 - 189 mg/dl HIGH >190 mg/dl VERY HIGH Performed By: #### C MP, LIPID #### [facility] [address] [address] [address] Phani El Triglyceride [Mass/Vol] 187 mg/dL Critically high <=150 [facility] Comment on above: Performed By: #### C MP, LIPID #### [facility] [address] [place] [address] Dr. Phani El VLDL CALC 37.4 mg/dL Normal [facility] Comment on above: Performed By: #### C MP, LIPID #### [facility] [address] [address] [address] Phani El PROF 14(COMP METB)on 023 Albumin [Mass/Vol] 3.6 g/dL Normal 3.4-5.0 [facility] Comment on above: Performed By: #### C MP, LIPID ####[facility] [address] [id number]. Phani El Albumin/Globulin [Mass ratio] 1.1 {ratio} Normal [facility] Comment on above: Performed By: #### C MP, LIPID ####[facility] [address] [address]Dr. Phani El ALP [Catalytic activity/Vol] 91 U/L Normal 46-116 [facility] Comment on above: Performed By: #### C MP, LIPID ####[facility] [address] [address]Dr. Phani El ALT [Catalytic activity/Vol] 34 U/L Normal 14-59 [facility] Comment on above: Performed By: #### C MP, LIPID ####[facility] [address] [address]Dr. Phani El Anion gap [Moles/Vol] 11.6 mmol/L Normal [facility] Comment on above: Performed By: #### C MP, LIPID ####[facility] [address] [address]Dr. Phani El AST [Catalytic activity/Vol] 18 U/L Normal 15-37 [facility] Comment on above: Performed By: #### C MP, LIPID ####[facility] [address] [address]Dr. Phani El Bilirubin [Mass/Vol] 0.6 mg/dL Normal 0.2-1.0 [facility] Comment on above: Performed By: #### C MP, LIPID ####[facility] [address] [address]Dr. Phani El Calcium [Mass/Vol] 9.2 mg/dL Normal 8.5-10.1 [facility] Comment on above: Performed By: #### C MP, LIPID ####[facility] [address] [id number]. Phani El Chloride [Moles/Vol] 106 mmol/L Normal 98-107 [facility] Comment on above: Performed By: #### C MP, LIPID ####[facility] [address] [id number]. Phani El CO2 [Moles/Vol] 32.3 mmol/L Critically high 21.0-32.0 [facility] Comment on above: Performed By: #### C MP, LIPID ####[facility] [address] [id number]. Phani El Creatinine [Mass/Vol] 1.04 mg/dL Critically high 0.55-1.02 [facility] Comment on above: Performed By: #### C MP, LIPID ####[facility] [address] [address]Dr. Phani El EGFR-AF NORWEGIAN >60 Normal >=60 [facility] Comment on above: Performed By: #### C MP, LIPID ####[facility] [address] [id number]. Phani El EGFR-NON AF NORWEGIAN 54 mL/min/1.73m2 Critically low >=60 [facility] Comment on above: Performed By: #### C MP, LIPID ####[facility] [address] [address]Dr. Phani El Globulin (S) [Mass/Vol] 3.4 g/dL Normal [facility] Comment on above: Performed By: #### C MP, LIPID ####[facility] [address] [id number] Phani El Glucose [Mass/Vol] 124 mg/dL Critically high 74-106 [facility] Comment on above: Performed By: #### C MP, LIPID ####[facility] [address] [id number]. Phani El Potassium [Moles/Vol] 3.9 mmol/L Normal 3.5-5.1 [facility] Comment on above: Performed By: #### C MP, LIPID ####[facility] [address] [id number] Phani El Protein [Mass/Vol] 7.0 g/dL Normal 6.4-8.2 [facility] Comment on above: Performed By: #### C MP, LIPID ####[facility] [address] [id number] Phani El Sodium [Moles/Vol] 146 mmol/L Critically high 136-145 [facility] Comment on above: Performed By: #### C MP, LIPID ####[facility] [address] [id number]. Phani El Urea nitrogen [Mass/Vol] 14.0 mg/dL Normal 7.0-18.0 [facility] Comment on above: Performed By: #### C MP, LIPID ####[facility] [address] [address]Dr. Phani El Urea nitrogen/Creatinine [Mass ratio] 13.5 mg/mg Normal [facility] Comment on above: Performed By: #### C MP, LIPID ####[facility] [address] [id number]. Phani El VITAMIN B12on 05-05-2022 Cobalamin (Vitamin B12) [Mass/Vol] 321.0 pg/mL Normal 193.0-986.0 [facility] Comment on above: Performed By: #### Paulette LUCERO VITB12 #### [facility] [address] [address] [address] Phani El VITAMIN D 25 OHon 05-05-2022 VIT D 25-OH 58.7 ng/mL Normal [facility] Comment on above: Performed By: #### Paulette LUCERO VITB12 #### [facility] [address] [address] [address] Phani El VIT D RANGES SEE BELOW Normal [facility] Comment on above: Result Comment: <20 ng/mL Vit D deficient 20 - <30 ng/mL Vit D insufficient 30 - 100 ng/mL Vit D sufficient >100 ng/mL Potential Toxicity Performed By: #### V ITAD, VITB12 #### [facility] [address] [address] [address] Phani El XR CHEST 2 Von [...] LORI FROST Date: 2022-05-05 10:05 Normal [facility] Ambulatory Visit Summaryon 0 03-24-2022 Ambulatory [...] Vitamin B12 deficiency Vitamin D deficiency Normal [facility] General Surgery Office/Clini c Noteon 03-24-2022 [...] inactivated - Not Given Patient Refuses Normal [facility] Comment on above: Result Comment: Elec tronically Signed By: NABIL AMADOR, Bryson Steinberg\Date and Time Signed: 03/24/22 13:12 EST Reminderson 03-24-2022 Reminders - From: Kristine Harrison LPN To: N - Clinical; Sent: 03/24/2022 13:05:34 EST Show up: 01/26/2032 07:00:00 EST Subject: colonoscopy recall Due Date/Time: 02/26/2032 07:00:00 EST Reminder/Recall Patient is due for screening colonoscopy 02/26/2032. Normal [facility] Covid-19 PCR (CVDTBH)on 02-10 SARS-CoV-2 (COVID-19) RNA MARISOL+probe Ql (Unsp spec) Detected Abnormal NOT DETECTED [facility] Comment on above: Result Comment: This test is not yet approved or cleared by the [place] FDA. When there are no FDA-approved or cleared tests available, and other criteria are met, FDA can make tests available under an emergency access mechanism called an Emergency Use Authorization (EUA). The EUA for this test is supported by the [place] [employer] of Health and Human Service's (HHS's) declaration [...] used). Performed By: #### C VDTB #### [facility] [address] [address] [address] Phani El INFLUENZA A AND B AGon 03-10 [facility] SEE BELOW Normal [facility] Comment on above: Result Comment: Nega tive for Flu A protein angiten. Infection due to Flu A cannot be ruled out. Flu A angiten in the sample may be below the detection limit of the test. Performed By: #### I NFLUAB ####[facility] [address] [address]Dr. Phani El INFLUBNEGH SEE BELOW Normal [facility] Comment on above: Result Comment: Nega tive for Flu B protein antigen. Infection due to Flu B cannot be ruled out. Flu B antigen in the sample may be below the detection limit of the test. Performed By: #### I NFLUAB ####[facility] [address] [address]Dr. Phani El INFLUENZA A AG Negative Normal NEGATIVE SEE COMMENT [facility] Comment on above: Performed By: #### I NFLUAB ####[facility] [address] [place], [place] [id number]. Phani El INFLUENZA B AG Negative Normal NEGATIVE SEE COMMENT [facility] Comment on above: Performed By: #### I NFLUAB ####[facility] [address] [place], [place] [address]DrCindy El Covid-19 PCR ([facility])on 02-09 SARS-CoV-2 (COVID-19) RNA MARISOL+probe Ql (Unsp spec) Detected Abnormal NOT DETECTED [facility] Comment on above: Result Comment: This test is not yet approved or cleared by the [place] FDA. When there are no FDA-approved or cleared tests available, and other criteria are met, FDA can make tests available under an emergency access mechanism called an Emergency Use Authorization (EUA). The EUA for this test is supported by the [place] of Health and Human Service's declaration that [...] longer be used). Performed By: #### C [facility] #### [facility] [address] [place] [address] Dr. Phani El Pathology Noteon 02-27-2022 Pathology Note [id number] 0CD:127 Normal [facility] Outside Colonoscopyon 2022 Outside Colonoscopy [id number]#[id number] 0CD:127 Normal [facility] Reminderson 02-26-2022 Reminders - From: Kristine Harrison LPN To: Kristine Harrison LPN; Sent: 02/26/2022 11:14:25 EST Show up: 05/18/2022 07:00:00 EDT Subject: Ambulatory Reminder Due Date/Time: 05/27/2022 07:00:00 EDT Reminder/Recall log in to extra lap top in [place] to keep account active Normal [facility] Lab Reportson 02-23-2022 Lab Reports [id number] 0CD:127 Normal [facility] Covid-19 PCR (CVDTB)on 02-08 SARS-CoV-2 (COVID-19) RNA MARISOL+probe Ql (Unsp spec) Not detected Normal NOT DETECTED [facility] Comment on above: Result Comment: This test is not yet approved or cleared by the [place] FDA. When there are no FDA-approved or cleared tests available, and other criteria are met, FDA can make tests available under an emergency access mechanism called an Emergency Use Authorization (EUA). The EUA for this test is supported by the [place] of Health and Human Service's (HHS's) declaration [...] consistent with SARS-CoV-2. Performed By: #### C [facility] ####[address] [place], [place] [address]. [address] Pre-Certification Formon Pre-Certification Form [id number]. 00CD:127 Normal [facility] Consent for Procedure/Surger yon 02-05-2022 Consent for Procedure/Surgery [id number] 0CD:127 Normal [facility] Formson 02-05-2022 Forms [id number]#1.0 0CD:127 Normal [facility] Physician Referralon 022 Physician Referral [id number] 0CD:127 Normal [facility] MRI Knee w/o Lefton 12-26-19 22 MRI Knee w/o Left HISTORY: Continued left-sided [...] by Jason Sanchez on 12/25/2021 1505 Normal [facility] MRI LSPINE WO CONon 12-05-19 MRI LSPINE [...] by: NADINE GRANT Date: 2021-12-04 17:54 Normal [facility] XR LSPINE 2_3 VIEWSon 2021 XR [...] by: NADINE GRANT Date: 2021-09-30 07:20 Normal [facility] MRI Knee w/o Lefton 07-30-19 22 [...] by Robby Diaz on 07/30/2021 1316 Normal [facility] Vital Signs Date Time Vital Sign Value Performing Clinician Facility 03-25-2023 13:13050 Body height 165.1 cm Jaymie Phoenix NP Work Phone: [facility] 03-25-2023 13:13-0500 Body mass index (BMI) [Ratio] 42.9 kg/m2 Jaymie Phoenix [employer] SALES [employer]ULTANT Work Phone: [facility] 03-25-2023 13:13-050 Body temperature 97.5 [degF] Jaymie Phoenix IT SALES CONSULTANT Work Phone: [facility] 03-25-2023 13:13-0500 Body weight 116.94 kg Jaymie Aichholz IT SALES CONSULTANT Work Phone: [facility] 03-25-2023 13:13-0500 Diastolic blood pressure 68 mm[Hg] Jaymie Maddyhholz IT SALES CONSULTANT Work Phone: [facility] 03-25-2023 13:13-0500 Heart rate 71 /min Jaymie Aichholz IT SALES CONSULTANT Work Phone: [facility] 03-25-2023 13:13-0500 Respiratory rate 20 /min Jaymie Aichholz IT SALES CONSULTANT Work Phone: [facility] 03-25-2023 13:13-0500 SaO2% (BldA) [Mass fraction] 95 % Jaymie Maddyhholz IT SALES CONSULTANT Work Phone: [facility] 03-25-2023 13:13-0500 Systolic blood pressure 108 mm[Hg] Jaymie Aichholz IT SALES CONSULTANT Work Phone: [facility] 03-16-2023 13:35-0500 Body height 165.1 cm Jaymie Maddyhholz IT SALES CONSULTANT Work Phone: [facility] 03-16-2023 13:35-0500 Body mass index (BMI) [Ratio] 41.6 kg/m2 Jaymie Maddyhholz IT SALES CONSULTANT Work Phone: [facility] 03-16-2023 13:35-0500 Body temperature 98.4 [degF] Jaymie Maddyhholz IT SALES CONSULTANT Work Phone: [facility] 03-16-2023 13:35-0500 Body weight 113.4 kg Jaymie Maddyhholz IT SALES CONSULTANT Work Phone: [facility] 03-16-2023 13:35-0500 Diastolic blood pressure 72 mm[Hg] Jaymie Aichholz IT SALES CONSULTANT Work Phone: [facility] 03-16-2023 13:35-0500 Heart rate 77 /min Jaymie Aichholz IT SALES CONSULTANT Work Phone: [facility] 03-16-2023 13:35-0500 Respiratory rate 18 /min Jaymie Aichholz IT SALES CONSULTANT Work Phone: [facility] 03-16-2023 13:35-0500 SaO2% (BldA) [Mass fraction] 95 % Jaymie Phoenix IT SALES CONSULTANT Work Phone: [facility] 03-16-2023 13:35-0500 Systolic blood pressure 112 mm[Hg] Jaymie Phoenix IT SALES CONSULTANT Work Phone: [facility] 02-03-2022 13:27-0500 Blood Pressure Location Bryson NILL [facility] 02-03-2022 13:27-0500 Diastolic blood pressure 80 mm[Hg] Bryson NILL [facility] 02-03-2022 13:27-0500 Heart rate 72 /min Bryson NILL [facility] 02-03-2022 13:27-0500 Respiratory rate 16 /min Bryson NILL [facility] [place] 02-03-2022 13:27-0500 Systolic blood pressure 126 mm[Hg] Bryson NILL [facility] [place] Encounters Encounter Date Encounter Type Care Provider Facility Start: 03-25-2023 End: 03-25-2023 ambulatory JAYMIE PHOENIX Not Available Start: 03-25-2023 Bamboo flowsheet Jaymie Phoenix IT SALES CONSULTANT Work Phone: [facility] Start: 03-25-2023 Bamboo flowsheet Jaymie Phoenix IT SALES CONSULTANT Work Phone: [facility] Start: 03-25-2023 End: 03-25-2023 Office outpatient visit 25 minutes Jaymie Phoenix IT SALES CONSULTANT Work Phone: [facility] Comment on above: Edema of right lower extremity (Primary Dx); BMI 40.0-44.9, adult (CMS/HCC); Shortness of breath; COPD mixed type (CMS/HCC); Primary hypertension (CMS/HCC); Bilateral lower extremity edema Start: 03-16-2023 End: 03-16-2023 ambulatory JAYMIE GATICAMAURICEZ Not Available Start: 03-16-2023 End: 03-16-2023 Office outpatient visit 25 minutes Jaymie Alban IT SALES CONSULTANT Work Phone: [facility] Comment on above: COPD mixed type (CMS /HCC) (Primary Dx); Tobacco dependence; BMI 40.0-44.9, adult (CMS/HCC); Body mass index [BMI] 40.0-44.9, adult (Z68.41); Primary hypertension (CMS/HCC); Bilateral lower extremity edema Start: 01-26-2023 End: 01-26-2023 ambulatory JAYMIE MADDYNikkiMAURICEZ Not Available Start: 12-08-2022 ambulatory Alphonse Patton acility:[facility] Start: 07-08-2022 ambulatory MEREDITH HOLCOMB MADDYNikkiMADAY Facil ity:[facility] Start: 05-29-2022 End: 05-30-2022 ambulatory MEREDITH HOLCOMB MADDYNikkiMADAY Facility:[facility] Start: 05-05-2022 End: 05-06-2022 ambulatory MEREDITH HOLCOMB MADDYNikkiMADAY Facility:[facility] Start: 04-30-2022 End: 05-01-2022 ambulatory DR JIM ALLAN . Facility:[facility] Start: 03-31-2022 End: 03-31-[address] JIM ALLAN . Facility:[facility] Start: 03-27-[address] JIM ALLAN . Faci lity:[facility] Start: 03-24-2022 End: 03-25-2022 ambulatory Bryson SAMPSON Facility:[facility] Start: 03-17-2022 ambulatory Bryson Mary SAMPSON Facility :[facility] Start: 03-10-2022 End: 03-10-2022 ambulatory MEREDITH PHOENIX Facility:[facility] Start: 03-02-2022 Encounter for preprocedural laboratory examination DR JIM ALLAN . 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 Facility:[facility] Start: 02-06-2022 End: 02-07-2022 ambulatory JENNY THORNE . Facility:[facility] Start: 02-03-2022 End: 02-04-2022 ambulatory Tracy Phoenix Facility: [place] Start: 02-03-2022 End: 02-03-2022 Patient encounter procedure Bryson SAMPSON General Surgery [facility] Start: 01-13-2022 End: 01-13-[address] JIM ALLAN . Facility:[facility] Start: 01-08-2022 End: 01-09-[address] JIM ALLAN . Facility:[facility] Start: 01-06-2022 ambulatory Bryson SAMPSON Facility : [facility] Start: 12-23-2021 End: 12-23-[address] JIM [...] Procedures Date Procedure Procedure Detail Performing Clinician Start: 03-25-2023 Mammography Jaymie kohler IT SALES CONSULTANT Work Phone: Start: 02-25-2022 Colonoscopy Jaymie kohler IT SALES CONSULTANT Work Phone: section Bryson Saldaña Ligation of fallopian tube Leslie nubia SAMPSON Repair of meniscus Bryson HOWELL Total abdominal hysterectomy with bilateral salpingo-oophorectomy Bryson SAMPSON Plan of Treatment Date Care Activity Detail Author Start: 02-26-2032 Screening for malign ant neoplasm of colon [facility] Start: 12-26-2024 Screening for malign ant neoplasm of colon FIT-DNA [facility] Start: 03-25-2024 Screening for malign ant neoplasm of breast Mammogram [facility] Start: 08-08-2023 Influenza vaccination Influenza Vacc ine (#1) [facility] Comment on above: Postponed from 10/09 (Patient Refused) Start: 04-06-2023 End: 04-06-2023 Patient encounter procedure 04/06/2023 1:40 PM EST Office Visit [facility] [address] [place] [address] Jaymie Phoenix NP [address] [place] [address] [facility] Start: 03-25-2023 End: 03-25-2024 CBC W Auto Differential panel - Blood CBC and differential Lab Routine Edema of right lower extremity Expected: 03/25/2023 (Approximate), Expires: 03/25/2024 [facility] Comment on above: Expected: 03/25/2023 (Approximate), Expires: 03/25/2024 Start: 03-25-2023 End: 03-25-2024 Comprehensive metabolic 2000 panel - Serum or Plasma Comprehensive metabolic panel Lab Routine Edema of right lower extremity Expected: 03/25/2023 (Approximate), Expires: 03/25/2024 [facility] Comment on above: Expected: 03/25/2023 (Approximate), Expires: 03/25/2024 Start: 03-25-2023 End: 03-25-2024 Fibrin D-dimer FEU [Mass/volume] in Platelet poor plasma D-dimer, quantitative Lab Routine Edema of right lower extremity Expected: 03/25/2023 (Approximate), Expires: 03/25/2024 [facility] Comment on above: Expected: 03/25/2023 (Approximate), Expires: 03/25/2024 Start: 03-25-2023 End: 03-25-2024 US.doppler Lower extremity vein - right Vascular US lower extremity venous duplex right Imaging STAT Edema of right lower extremity Expected: 03/25/2023, Expires: 03/25/2024 [facility] Work Phone: Comment on above: Expected: 03/25/2023 , Expires: 03/25/2024 Start: 03-25-2023 End: 03-25-2024 XR Chest 2 Views XR chest 2 views Imaging Routine Edema of right lower extremity Shortness of breath Expected: 03/25/2023, Expires: 03/25/2024 [facility] Comment on above: Expected: 03/25/2023 , Expires: 03/25/2024 Start: 08-16-1993 Screening for malign ant neoplasm of cervix HPV/Cotest [facility] Start: 08-16-1984 Screening for malign ant neoplasm of cervix Pap Smear [facility] Start: 1965 Medicare Annual Well ness (AWV) Medicare Annual Wellness (AWV) [facility] Start: 1965 Screening for malign ant neoplasm of colon [facility] Immunizations Immunization Date Immunization Notes Care Provider Fa cility NEGATED: Highlighted row has not occurred!02-03-2022 influenza virus vaccine, unspecified formulation Bryson SAMPSON General [facility] [place] Payers Date Payer Category Payer Self-pay 2021 Medicare AETNA MEDICARE A DVANTAGE AETNA MEDICARE REPLACEMENT [id number] 2021-Present [address] [place] [address] [id number] 1965 Unknown [id number] 2.16.840.1.196183.3.579.2. 727 1963 Unknown [id number] 2.16.840.1.310342.3.579.2. 727 1963 Unknown [id number] 2.16.840.1.416188.3.579.2. 727 1963 Unknown [id number] 2.16.840.1.442527.3.579.2 72 1963 Unknown [id number] 2.16.840.1.149802.3.579.2 72 1963 Unknown [id number] 2.16.840.1.911006.3.579.2 59 1963 Unknown [id number] 2.16.840.1.871852.3.579.2 59 1963 Unknown [id number] 2.16.840.1.284091.3.579.2 59 1963 Unknown [id number] 2.16.840.1.185124.3.579.2 59 1963 Unknown [id number] 2.16840.1.668210.3.579.2 59 1963 Unknown [id number] 2.16.840.1.914697.3.579.2 59 1963 Unknown [id number] 2.16.840.1.047747.3.579.2 59 1963 Unknown [id number] 2.16.840.1.043496.3.579.2 59 1963 Unknown [id number] 2.16.840.1.582046.3.579.2 59 1963 Unknown [id number] 2.16.840.1.783813.3.579.2. 59 1963 Unknown [id number] 2.16.840.1.823927.3.579.2 59 1963 Unknown [id number] 2.16.840.1.811461.3.579.2 59 1963 Unknown [id number] 2.16.840.1.964464.3.579.2 593 1963 Unknown [id number] 2.16.840.1.735656.3.579.2. 593 1963 Unknown [id number] 2.16.840.1.560910.3.579.2. 593 1963 Unknown [id number] 2.16.840.1.374380.3.579.2. 593 1963 Unknown [id number] 2.16.840.1.186809.3.579.2. 593 1963 Unknown [id number] 2.16.840.1.176365.3.579.2. 593 1963 Unknown [id number] 2.16.840.1.657727.3.579.2. 593 1963 Unknown [id number] 2.16.840.1.026425.3.579.2. 593 1963 Unknown [id number] 2.16.840.1.549727.3.579.2. 593 1963 Unknown [id number] 2.16.840.1.063225.3.579.2. 593 1963 Unknown [id number] 2.16.840.1.784734.3.579.2. 1259 1963 Unknown [id number] 2.16.840.1.738091.3.579.2. 1259 1959 Private Health Insurance [id number] Unknown [id number] 2.16840.1.225434.3.579.2. 531 Social History Date Type Detail Facility Start: 02-03-2022 Tobacco smoking status Heavy t obacco smoker (finding) [facility] [place] Tobacco smoking status Never [facility] [place] Start: 03-16-2023 End: 03-25-2023 Sex Assigned At Female [facility] Start: 01-26-2023 [facility] History of tobacco use Cigarette Smoker [facility] Start: 01-26-2023 End: 03-16-2023 Cigarettes smoked current (pack per day) - Reported 1 [facility] Start: 01-26-2023 Tobacco use and exposure Smokeless tobacco non-user [facility] Start: 03-16-2023 End: 03-25-2023 Alcohol intake Ex-drinker (finding) [facility] Start: 01-26-2023 Tobacco Comment 11-20 cigarettes/day [facility] Start: 01-26-2023 Alcohol Comment socially [facility] Start: 1965 Sex Assigned At Not on file [facility] Functional Status Date Assessment Result Facility 02-03-2022 Functional Status N/A [facility] Clinical Notes 12-09-2021 to 03-25-2023 Jaymie Phoenix NP - 03/25/2023 4:34 PM Ashok Phoenix, NILE - 03/25/2023 4:32 PM Ashok Phoenix, NILE - 03/25/2023 4:32 PM HEBERMBEDLE PAZ - 03/25/2023 1:00 PM EST Note Date & Type Note Facility 03-25-2023 History of Present illness Narrative Associated Problem(s): Edema of right lower extremity Will order labs: CBC, Chem 14, and d dimer Check stat US RLE, negative for clot Associated Problem(s): COPD mixed type (CMS/HCC) Does have ext exp wheeze, no resp distress Cannot take prednisone, but can tolerate decadron, will trial that Associated Problem(s): Shortness of breath Chest xray Swelling in both legs up to the calf- in the last week Elevating legs at night Oxygen was low yesterday during blood flow-they did not tell pt what it was other than it being low She started out at 92% Very SOB and wheezing Sprout is increasing the lamictal to 150 once in the morning. And continuing the 200mg at night Images from the original note were not included. Franky Srinivasan is a 57 y.o. female presents with chief complaint of No chief complaint on file. HPI: Here today for recheck of swelling in legs. She has been on aldactone 50mg dose, for a few weeks now Over the last couple days increase in swelling in RLE, +calf tenderness, mild dyspnea, and no hx of DVT/PE in the past Edema Presents with chronic edema. The current episode started more than 1 year ago. The problem presents itself constantly. The problem has been rapidly worsening. The edema is present on the right side(s). Risk factors for edema include no known risk factors. Associated agents include NSAID use. Associated symptoms include fatigue. Pertinent negative symptoms include no abdominal pain, no chest pain, no cough, no decreased urine volume, no fever, no nausea, no palpitations, no PND and no vomiting. Treatments tried include diuretics. [...] Oral, Every 8 hours PRN lamoTRIgine (LAMICTAL) 150 mg, Oral, Daily, In the morning lamoTRIgine (LAMICTAL) 200 mg, Oral, Nightly lidocaine [...] redness and visual disturbance. Respiratory: Positive for shortness of breath and wheezing. Negative for cough. Cardiovascular: Positive for leg swelling. Negative for chest pain, palpitations and PND. Gastrointestinal: Negative for abdominal pain, blood in stool, constipation, diarrhea, nausea and vomiting. Genitourinary: Negative for decreased urine volume, difficulty urinating, dysuria and frequency. Musculoskeletal: Negative for arthralgias, back pain, joint swelling and myalgias. Skin: Negative for rash and wound. Neurological: Negative for dizziness, tremors, seizures, syncope and headaches. Psychiatric/Behavioral: Negative for behavioral problems, self-injury and suicidal ideas. The patient is not nervous/anxious. Hematological: Does not bruise/bleed easily. Endocrine: Negative for polydipsia, polyphagia and polyuria. Allergic/Immunologic: Negative for environmental allergies and food allergies. PAST MEDICAL HISTORY Past Medical History: Diagnosis Date Anxiety Bilateral lower extremity edema 01/26/2023 stable Class 3 severe obesity due to excess calories without serious comorbidity with body mass index (BMI) of 40.0 to 44.9 in adult ([facility]) 01/26/2023 COPD mixed type ([facility]) 01/26/2023 DENIES HX OF BLOOD BORNE DISEASES Depression ([facility]) Fibromyalgia Open wound of left foot 01/26/2023 Open wound of second toe 01/26/2023 Other acute sinusitis 01/26/2023 Primary hypertension ([facility]) 01/26/2023 Tobacco dependence 01/26/2023 Past Surgical History: Procedure Laterality Date SECTION, LOW TRANSVERSE x2 HYSTERECTOMY 08/2014 Total Laparoscopic KNEE SURGERY Left 09/02/2021 SCOPE - DR MAURICE TUBAL LIGATION Laparoscopic family history is not on file. She was adopted. OBJECTIVE: Visit Vitals BP 108/68 (BP Location: Left arm, Patient Position: Sitting, BP Cuff Size: Large adult) Pulse 71 Temp 97.5 F (Temporal) Resp 20 Ht 5' 5 Wt 257 lb 12.8 oz SpO2 95% BMI 42.90 kg/m Smoking Status Every Day BSA 2.32 m Physical Exam Vitals reviewed. Constitutional: General: [...] sounds. Pulmonary: Effort: Pulmonary effort is normal. Breath sounds: Wheezing (exp) present. Abdominal: General: Bowel sounds are normal. There is no distension. Palpations: Abdomen is soft. There is no mass. Tenderness: There is no abdominal tenderness. Musculoskeletal: General: Normal range of motion. Cervical back: Normal range of motion and neck supple. Right lower leg: Edema (2+ , +homans) present. Left lower leg: Edema (1+) present. [...] file. Problem List Items Addressed This Visit Primary hypertension (CMS/HCC) COPD mixed type (CMS/HCC) Does have ext exp wheeze, no resp distress Cannot take prednisone, but can tolerate decadron, will trial that BMI 40.0-44.9, adult (CMS/HCC) Edema of right lower extremity - Primary Will order labs: CBC, Chem 14, and d dimer Check stat US RLE, negative for clot Relevant Orders Vascular US lower extremity venous duplex right D-dimer, quantitative CBC and differential Comprehensive metabolic panel XR chest 2 views Shortness of breath Chest xray Relevant Orders XR chest 2 views documented in this encounter [facility] 03-16-2023 History of Present illness Narrative Associated [...] within 12 hours or as directed by MD. meloxicam (MOBIC) 15 mg, Oral, Daily omeprazole [...] (BMI) of 40.0 to 44.9 in adult ([facility]) 01/26/2023 COPD mixed type ([facility]) 01/26/2023 DENIES HX OF BLOOD BORNE DISEASES Depression ([facility]) Fibromyalgia Open wound of left foot 01/26/2023 Open wound of second toe 01/26/2023 Other acute sinusitis 01/26/2023 Primary hypertension ([facility]) 01/26/2023 Tobacco dependence 01/26/2023 Past Surgical History: [...] 40.0-44.9, adult (Z68.41) documented in this encounter [facility] 04-30-2022 Note CONSULTATION CONSULTATION DATE: 04/30/2022 TO: Nurse Phoenix CHIEF COMPLAINT: 0-5/10 pain in her lower [...] office on an as needed basis. [facility] 02-25-2022 Note OPERATIVE NOTE OPERATION DATE: [...] good condition. CC: Patient's family physician [facility] 02-06-2022 Note CONSULTATION CONSULTATION DATE: 02/06/2022 [...] followed up in the clinic thereafter. [facility] 02-03-2022 Note Chief Complaint consultation for [...] 30 days Tobacco (more content not included)... [facility] Comment on above: Result Comment: Elec tronically Signed By: NABIL AMADOR, Bryson Steinberg\Date and Time Signed: 02/03/22 13:53 EST 01-08-2022 [...] followed up in the clinic thereafter. [facility] 12-09-2021 Note CONSULTATION CONSULTATION DATE: 12/09/2021 [...] to proceed. CC: Jaymie Phoenix, MEREDITH [facility] Evaluation + Plan note No data available for this section [facility] [place] Evaluation note Diagnosis COPD mixed type (CMS/HCC)- Primary Tobacco dependence Tobacco use disorder BMI 40.0-44.9, adult (CMS/HCC) Body mass index [BMI] 40.0-44.9, adult (Z68.41) Primary hypertension (CMS/HCC) Unspecified essential hypertension Bilateral lower extremity edema documented in this encounter [facility] HealthcareEvaluation note* Diagnosis Edema of right lower extremity- Primary BMI 40.0-44.9, adult (CMS/HCC) Shortness of breath COPD mixed type (CMS/HCC) Primary hypertension (CMS/HCC) Unspecified essential hypertension Bilateral lower extremity edema documented in this encounter [facility] Discharge instructions No data available for this section [facility] [place] Progress note No data available for this section [facility] [place] Summary Purpose Family History No Family History Records FoundNo Family History Records FoundNo Family History Records FoundNo Family History Records FoundNo Family History Records Found Advance Directives No Advanced Directives Records FoundNo Advanced Directives Records FoundNo Advanced Directives Records FoundNo Advanced Directives Records FoundNo Advanced Directives Records Found Reason for Referral Specialty Diagnoses / Procedures Referred By Jose t Referred To Contact Radiology Diagnoses Edema of right lower extremity Procedures Vascular US lower extremity venous duplex right Jaymie Phoenix NP [address] [place] [address] Referral ID Status Reason Start Date Expiration Date V isits Requested Visits Authorized [id number] Authorized 03/25/2023 09/21/2023 1 1 Additional Source Comments INFORMATION SOURCE (unrecogn ized section and content) DATE CREATED AUTHOR 12/26/2021 [facility] dical Specialist DATE CREATED AUTHOR AUTHOR'S ORGANIZ ATION 03/25/2022 [facility] DATE CREATED AUTHOR AUTHOR'S ORGANIZ ATION 07/17/2022 [facility] DATE CREATED AUTHOR AUTHOR'S ORGANIZ ATION 03/27/2023 [facility] dical Specialists EPIC DATE CREATED AUTHOR AUTHOR'S ORGANIZ ATION 04/15/2023 [facility] Patient Care team informatio n (unrecognized section and content) Mold Presser Relationship Specialty Start Date End Date Jaymie Phoenix NP [address] [place] [phone] Nurse Practitioner Family Medicine 01/26/23 Mold Presser Relationship Specialty Start Date End Date Shaikh Marquez MD [address] [place] [phone] PCP - General Internal Medicine 03/25/23 Jaymie Phoenix NP [address] [place] [phone] Nurse Practitioner Family Medicine 01/26/23 Mold Presser Relationship Specialty Start Date End Date Shaikh Marquez MD [address] [place] [phone] PCP - General Internal Medicine 03/25/23 Jaymie Phoenix NP [address] [place] [address] Nurse Practitioner Family Medicine 01/26/23 FOR RECORDS [...] BE BASED ON THE PRIMARY CLINICAL RECORDS. [employer] provides no warranty or guarantee of the accuracy or completeness of information in this document.
[2023-04-19 15:23] LABS: Anion Gap 12.1; BUN Creatinine Ratio 7.8; Calcium 8.5 mg/dL (8.5-10.1); Carbon Dioxide 30.7 mmol/L (21.0-32.0); Chloride 105 mmol/L (98-107); Estimated GFR (African America 58 (>=60); Estimated GFR (Non-African Ame 48 (>=60); Glucose 108 mg/dL (74-106); Potassium 3.8 mmol/L (3.5-5.1); Sodium 144 mmol/L (136-145)
== END 2023-04-19 14:56 | disposition home or self-care (01) ==
LOC: LAB 14:56
PROVIDERS: PCP Nurse Practitioner; Visit Provider Nurse Practitioner
DX: R60.0 Localized edema (principal)
CPT/HCPCS: 36415; 80048

== ENCOUNTER 2023-04-22 12:55 | Outpatient (OUT) | payer MEDICARE, SELFPAY ==
--- NOTE | 2023-04-22 13:00 | VEIN_ITS ---
Patient Name: FRANKY SRINIVASAN MR#: [id number] : 1965 Exam Date: 04/22/2023 Ordering Doctor: DR NADINE GRANT M.D. RADIOLOGY REPORT PROCEDURE: VC FACILITY EST COMPREHENSIVE VEIN CENTER - OFFICE VISIT INITIAL COMPARISON: None. PROGRESS NOTES: [age] year old female who presents with a 4 month history of moderate-marked bilateral lower extremity edema, dilated discolored veins, lower extremity pain and throbbing. The patient's leg symptoms are symmetric bilaterally. There has been a progression of symptoms over time. This increases with prolonged leg dependency. The patient describes an improvement with rest, elevation, compression stockings. The patient denies any signs and symptoms to suggest arterial ischemia. The patient describes a family history : Unknown (patient is adopted). The patient has drinking and smoking history of : Occasional alcohol consumption. One pack per day cigarette smoker. Patient has a past medical history significant for multiple various noncontributory findings. The patient denies a history of deep venous thrombus or pulmonary embolus. See separate history and physical for medication list. No prior treatment for varicose or spider veins. Current use of compression stockings. After review of nurse notes, history and physical exam I discussed at length the pathophysiology of venous hypertension and possible treatments, therapies and strategies available. We discussed at length the importance of elevating the lower extremities above the level of the heart, increased physical activity and compression stocking use. Ultrasound venous reflux study performed today was discussed at length with the patient. The report demonstrates abnormally dilated and incompetent anterior accessory saphenous veins bilaterally with associated dilated branch saphenous varicosities. PHYSICAL EXAM: The right leg demonstrates a few varicosities, a few scattered spider veins, no ulceration, moderate-marked edema, mild skin discoloration. The left leg demonstrates a few varicosities, a few scattered spider veins, no ulceration, moderate-marked edema, mild skin discoloration. Both thighs, legs and feet were symmetrically warm to the touch. Good posterior tibial and dorsalis pedis pulses were present bilaterally. VEIN/VC Facility EST Comprehensive IMPRESSION: 1. Bilateral lower extremity venous insufficiency 2. Bilateral lower extremity varicose veins 3. Moderate-marked bilateral lower extremity subcutaneous edema 4. No flow significant arterial disease 5. CEAP: C3, AP, , ID PLAN: 1. Continued use of compression stockings 2. Elevated legs and increased physical activity symptomatic relief 3. Endovenous laser ablation of bilateral anterior accessory saphenous veins. 4. Microfoam chemical ablation of incompetent branch saphenous varicosities. 5. Referral to lymphedema clinic for evaluation. Nurse notes, history and physical were reviewed and confirmed, see attached forms. The nurse was present throughout the physical exam and consultation Dictated by: Gurwinder Day M.D. on 04/22/2023 at 14:40 Approved by: Gurwinder Day M.D. on 04/22/2023 at 14:48
--- NOTE | 2023-04-22 13:02 | VEIN_ITS ---
Patient Name: FRANKY SRINIVASAN MR#: [id number] : 1965 Exam Date: 04/22/2023 Ordering Doctor: DR NADINE GRANT M.D. RADIOLOGY REPORT PROCEDURE: VC EXT VENOUS REFLUX SABRINA LMTD COMPARISON: None. INDICATIONS: R60.0 Bilateral Lower Edema TECHNIQUE: Duplex imaging of the lower extremity to assess the deep and superficial venous system for the presence of deep or superficial venous incompetence and to document the location and severity of disease. The study includes evaluation of the great saphenous vein (GSV), anterior accessory saphenous vein (AASV) and small saphenous vein (SSV). Patient scanned in reverse Trendelenburg and standing. FINDINGS: RIGHT LOWER EXTREMITY: Saphenofemoral Junction Reflux: Yes 8.8mm 0.9 sec GSV: Diam (mm) Reflux/ Time (sec) Proximal Thigh 3.3 Yes 0.7 Mid Thigh 3.7 No Distal Thigh 3.7 No Prox Calf 3.2 No Mid Calf 4.0 No Saphenopopliteal Junction Reflux: 3.0mm No SSV: Proximal Calf 2.6 No Mid Calf 1.7 No AASV: Proximal Thigh 6.2 Yes 1.7 Mid Thigh 4.5 Yes 0.8 Distal Thigh Thrombi: No acute or chronic thrombus visualized Compressibility: Normal Flow: Normal Preforator: Dist/med calf 3.1mm with 0s reflux. Tech Note: Incompetent AASV. Patent varicose vein mid/med calf 4.7mm with 0.9s reflux. Patent varicose vein prox/med calf 3.7mm with 0.8s reflux. Patent varicose vein mid/med thigh 5.0mm with 1.5s reflux. LEFT LOWER EXTREMITY: Saphenofemoral Junction Reflux: Yes 7.5 mm 1.2 sec GSV: Diam (mm) Reflux/Time (sec) Proximal Thigh 2.9 Yes 0.5 Mid Thigh 2.6 Yes 0.9 Distal Thigh 4.6 Yes 0.9 Prox Calf 3.2 No Mid Calf 3.5 No Saphenopopliteal Junction Relux: 3.0 mm No SSV: Proximal Calf 2.3 Yes 0.7 Mid Calf 2.8 No AASV: Proximal Thigh 6.0 Yes 1.0 Mid Thigh 5.2 Yes 1.1 Distal Thigh Thrombi: No acute or chronis thrombus visualized Compressibility: Normal Flow: Normal Board Handler: Dist/med calf 3.9mm with 1.0s reflux. Tech Note: Incompetent AASV. Patent varicose vein mid/med calf 3.6mm with 1.5s reflux. Patent varicose vein dist/med thigh 4.1mm with 0.8s reflux. CONCLUSION: 1. 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 Dictated by: Gurwinder Day M.D. on 04/22/2023 at 14:21 Approved by: Gurwinder Day M.D. on 04/22/2023 at 14:40
== END 2023-04-22 12:56 | disposition home or self-care (01) ==
LOC: VC 12:55
PROVIDERS: PCP Nurse Practitioner; Visit Provider Radiology Diagnostic Radiology
DX: R60.0 Localized edema (principal)
CPT/HCPCS: 93970; G0463

== ENCOUNTER 2023-04-30 12:00 | Outpatient (OUT) | payer MEDICARE, SELFPAY ==
--- OUTSIDE RECORDS SUMMARY | 2023-04-30 12:03 | XMS_ITS | CCD ---
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 Name Role Phone JAYMIE PHOENIX Primary Care Physician Bryson SAMPSON Attending Unavailable JAYMIE PHOENIX Referring Unavailabl e NILL, Bryson Hernandez Attending Unavailable Aichholz, Tracy L Referring Unavailable NILL, Bryson Hernandez Attending Unavailable NILL, Bryson Hernandez Attending Unavailable NILL, Bryson Hernandez Attending Unavailable AICHHOLZ, HEAD OF DESIGN JAYMIE Primary Care Unavailable ALLAN ., DR JMI Mcdonnell Attending Unavailable ALLAN ., DR JIM Mcdonnell Admitting Unavailable ALLAN ., DR JIM Mcdonnell Consulting Unavailable ROBINSON ., GLENROY Admitting Unavailable ROBINSON ., GLENROY Attending Unavailable SJ SOLER Consulting Unavailable AICHHOLZ, HEAD OF DESIGN JAYMIE Primary Care Unavailable MENDEZ ., MR DEMETRIUS Admitting Unavailable MENDEZ ., MR DEMETRIUS Attending Unavailable AICHHOLZ, HEAD OF DESIGN JAYMIE Primary Care Unavailable AICHHOLZ, HEAD OF DESIGN JAYMIE Admitting Unavailable JUANITA, DR NADINE Caldwell Consulting Unavailable AICHHOLZ, HEAD OF DESIGN JAYMIE Primary Care Unavailable AICHHOLZ, HEAD OF DESIGN JAYMIE Attending Unavailable AICHHOLZ, HEAD OF DESIGN JAYMIE Consulting Unavailable AICHHOLZ, HEAD OF DESIGN JAYMIE Admitting Unavailable JUANITA, DR NADINE Caldwell Consulting Unavailable AICHHOLZ, HEAD OF DESIGN JAYMIE Primary Care Unavailable AICHHOLZ, HEAD OF DESIGN JAYMIE Attending Unavailable AICHHOLZ, HEAD OF DESIGN JAYMIE Consulting Unavailable AICHHOLZ, HEAD OF DESIGN JAYMIE Primary Care Unavailable NILL ., DR MASSEY Admitting Unavailable NILL ., DR MASSEY Attending Unavailable NILL ., DR MASSEY Consulting Unavailable SONDRA FELICIANO Consulting Unavailable ROBINSON ., GLENROY Admitting Unavailable ROBINSON ., GLENROY Attending Unavailable ROBINSON .GLENROY Consulting Unavailable AICHHOLZ, HEAD OF DESIGN JAYMIE Primary Care Unavailable ALLAN ., DR JIM Mcdonnell Attending Unavailable ALLAN ., DR JIM Mcdonnell Consulting Unavailable ALLAN ., DR JIM Mcdonnell Admitting Unavailable AICHHOLZ, HEAD OF DESIGN JAYMIE Primary Care Unavailable MARIA FERNANDA SOSA Consulting Unavailable ALLAN ., DR JIM Mcdonnell Attending Unavailable ALLAN ., DR JIM Mcdonnell Consulting Unavailable ALLAN ., DR JIM Mcdonnell Admitting Unavailable AICHHOLZ, HEAD OF DESIGN JAYMIE Primary Care Unavailable ALLAN ., DR JIM Mcdonnell Admitting Unavailable ALLAN ., DR JIM Mcdonnell Attending Unavailable ALLAN ., DR JIM Mcdonnell Consulting Unavailable AICHHOLZ, HEAD OF DESIGN JAYMIE Primary Care Unavailable ALLAN ., DR JIM Mcdonnell Admitting Unavailable ALLAN ., DR JIM Mcdonnell Attending Unavailable AICHHOLZ, HEAD OF DESIGN JAYMIE Primary Care Unavailable THORNE ., JENNY Consulting Unavailable ALLAN ., DR JIM Mcdonnell Admitting Unavailable ALLAN ., DR JIM Mcdonnell Attending Unavailable ALLAN ., DR JIM Mcdonnell Consulting Unavailable AICHHOLZ, HEAD OF DESIGN JAYMIE Primary Care Unavailable ALLAN ., DR JIM Mcdonnell Admitting Unavailable ALLAN ., DR JIM Mcdonnell Attending Unavailable ALLAN ., DR JIM Mcdonnell Consulting Unavailable AICHHOLZ, HEAD OF DESIGN JAYMIE Primary Care Unavailable THORNE ., JENNY Consulting Unavailable ALLAN ., DR JIM Mcdonnell Admitting Unavailable ALLAN ., DR JIM Mcdonnell Attending Unavailable AICHHOLZ, HEAD OF DESIGN JAYMIE Primary Care Unavailable ALLAN ., DR JIM Mcdonnell Attending Unavailable ALLAN ., DR JIM Mcdonnell Consulting Unavailable ALLAN ., DR JIM Mcdonnell Admitting Unavailable AICHHOLZ, HEAD OF DESIGN JAYMIE Primary Care Unavailable LAKSHMIPATHY ., NARENDRANEDWAR Consulting Evelyn vailable NILL ., DR MASSEY Consulting Unavailable NILL ., DR MASSEY Admitting Unavailable AICHHOLZ, HEAD OF DESIGN JAYMIE Primary Care Unavailable NILL ., DR MASSEY Attending Unavailable AICHHOLZ, HEAD OF DESIGN JAYMIE Admitting Unavailable AICHHOLZ, HEAD OF DESIGN JAYMIE Attending Unavailable AICHHOLZ, HEAD OF DESIGN JAYMIE Consulting Unavailable AICHHOLZ, HEAD OF DESIGN JAYMIE Primary Care Unavailable CHET, DR MELISSA Hernandez Consulting Unavailable AICHHOLZ, HEAD OF DESIGN JAYMIE Admitting Unavailable AICHHOLZ, HEAD OF DESIGN JAYMIE Attending Unavailable AICHHOLZ, HEAD OF DESIGN JAYMIE Consulting Unavailable AICHHOLZ, HEAD OF DESIGN JAYMIE Primary Care Unavailable LORI FROST Consulting Unavailable ALLAN ., DR JIM Mcdonnell Attending Unavailable ALLAN ., DR JIM Mcdonnell Admitting Unavailable AICHHOLZ, HEAD OF DESIGN JAYMIE Primary Care Unavailable AICHHOLZ, HEAD OF DESIGN JAYMIE Primary Care Unavailable SAMSA ., MAGDALENA Admitting Unavailable SAMSA ., MAGDALENA Attending Unavailable SAMSA ., MAGDALENA Consulting Unavailable ALLAN ., DR JIM Mcdonnell Attending Unavailable JERRELL ., DR JIM Mcdonnell Admitting Unavailable ALLAN ., DR JIM Mcdonnell Consulting Unavailable ALBAN, MEREDITH HOLCOMB Primary Care Unavailable AICHARI, MEREDITH JAYMIE Admitting Unavailable AICHHOLHomer, MEREDITH JAYMIE Attending Unavailable AICHHOLZ, MEREDITH COXA Consulting Unavailable AICHHOLZ, HEAD OF DESIGN JAYMIE Primary Care Unavailable Aichholz PRINT AND PATTERN DESIGNER, Jaymie Unavailable Shaikh Marquez MD Primary Care Provider Alphonse Damian Attending Unavailab le Alphonse Damian Admitting Unavailab le Jaymie Phoenix J Primary Care Unavailable ALBAN, JAYMIE Attending Unavailable ALBAN, JAYMIE Attending Unavailable ALBAN, JAYMIE Attending Unavailable ALBAN, JAYMIE Attending Unavailable Allergies Allergy Classification Reported Allergen(s) Allergy Type Date of Onset Reaction(s) Facility (9 sources) Penicillins; Translations: [penicillins] Drug allergy 4 Dyspnea (finding), Weal (disorder), Hives, Shortness of breath, Swelling [facility] [place] (2 sources) predniSONE; Translations: [prednisone] Drug Allergy Dyspnea (finding) [facility] [place] (1 source) prednisoLONE Drug Allergy [facility] Repository (5 sources) Prednisone Propensity to adverse reactions 3 Itching [facility] Medications Current Medications Medication Drug Class(es) Dates Sig (Normalized) Sig (Original) [id number] 200 actuat albuterol 0.09 mg/actuat metered dose [...] within 12 hours or as directed by MDCindy. 0 Active meloxicam 15 mg oral tablet (6 sources) Nonsteroidal Anti-inflammatory Drug Start: 03-15-19 End: 04-14-19 24 take 1 tablet by mouth in the morning meloxicam (Mobic) 15 MG tablet Indications: Fibromyalgia Take 1 tablet (15 mg) by mouth in the morning. 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 Phani CAMPBELLS TEST Positive Normal [facility] Comment on above: Performed By: #### A BG ####[facility] [address] [place] [id number] El Base excess Calc (Bld) [Moles/Vol] 1.4 mmol/L Normal -2.0-2.0 [facility] Comment on above: Performed By: #### A BG ####[facility] [address] [place] [address]Dr. Phani El BIPAP PRESSURE Normal [facility] Comment on above: Performed By: #### A BG ####[facility] [address] [place] [address]Dr. Phani El CPAP Normal [facility] Comment on above: Performed By: #### A BG ####[facility] [address] [place] [address]Dr. Phani El FIO2 Normal [facility] Comment on above: Performed By: #### A BG ####[facility] [address] [place], [place] [address]Dr. Phani El HCO3 (Bld) [Moles/Vol] 26.2 mmol/L Critically high 22.0-26.0 [facility] Comment on above: Performed By: #### A BG ####[facility] [address] [place], [place] [address]Dr. Phani El LPM Normal [facility] Comment on above: Performed By: #### A BG ####[facility] [address] [place], [place] [address]Dr. Phani El MINUTE VOLUME Normal [facility] Comment on above: Performed By: #### A BG ####[facility] [address] [place], [place] [address]Dr. Phani El Oxygen (Bld) [Partial pressure] 56.1 mm[Hg] Critically low 80.0-100.0 [facility] Comment on above: Performed By: #### A BG ####[facility] [address] [place], [place] [address]Dr. Phani El Oxygen saturation in Blood 92.0 % Critically low 95.0-100.0 [facility] Comment on above: Performed By: #### A BG ####[facility] [address] [place], [place] [address]Dr. Phani El PCO2 42.6 mmHg Normal 35.0-45.0 [facility] Comment on above: Performed By: #### A BG ####[facility] [address] [place] [address]Dr. Phani El PEEP [facility] Comment on above: Performed By: #### A BG ####[facility] [address] [place] [address]Dr. Phani El pH (Bld) 7.398 [pH] Normal 7.350-7.450 [facility] Comment on above: Performed By: #### A BG ####[facility] [address] [place] [address]Dr. Phani El PIP [facility] Comment on above: Performed By: #### A BG ####[facility] [address] [place] [address]Dr. Phani El PS [facility] Comment on above: Performed By: #### A BG ####[facility] [address] [place] [address]Dr. Phani El PUNCTURE SITE RR [facility] Comment on above: Performed By: #### A BG ####[facility] [address] [place] [address]Dr. Phani El RATE [facility] Comment on above: Performed By: #### A BG ####[facility] [address] [place] [address]Dr. Phani El VENT MODE [facility] Comment on above: Performed By: #### A BG ####[facility] [address] [place], [place] [address]Dr. Phani El VT [facility] Comment on above: Performed By: #### A BG ####[facility] [address] [place], [place] [address]Dr. Phani El ECHOCARDIO M/2D COMPLETEon 0 07-08-2022 ECHOCARDIO M/2D COMPLETE Patient: FRANKY SRINIVASAN I. Exam Date: 07/08/2022 : 1965 Gender:F Ordering : DR. MAGDALENA DOWNING . Admission #: [id number] Family : HEAD OF DESIGN JAYMIE RAHMANHARI HEAD OF DESIGN Order #: [id number] CLICK HERE TO VIEW EXAM ECHOCARDIOGRAM REPORT [...] Garcia M.D. on 07/08/2022 at 18:14 Normal [facility] CT LUNG CANCER SCREENINGon 0 [...] by: MELISSA ROSENBERG Date: 2022-05-29 09:36 Normal [facility] CBC AUTO DIFFon 05-05-2022 BASO # 0.1 103/ul Normal 0.0-0.1 [facility] Comment on above: Performed By: #### C BC #### [facility] [address] [place] [address] Dr. Phani El Basophils/100 WBC (Bld) 0.8 % Normal 0.2-2.0 [facility] Comment on above: Performed By: #### C BC #### [facility] [address] [place] [address] Dr. Phani El EO # 0.1 103/ul Normal 0.0-0.7 [facility] Comment on above: Performed By: #### C BC #### [facility] [address] [place] [address] Dr. Phani El Eosinophils/100 WBC (Bld) 2.0 % Normal 0.9-7.0 [facility] Comment on above: Performed By: #### C BC #### [facility] [address] [place] [address] Dr. Phani El Erythrocyte distribution width (RBC) [Ratio] 14.0 % Normal 11.0-15.0 [facility] Comment on above: Performed By: #### C BC #### [facility] [address] [place] [address] Dr. Phani El Hematocrit (Bld) [Volume fraction] 48.7 % Critically high 36.0-48.0 [facility] Comment on above: Performed By: #### C BC #### [facility] [address] [place] [address] Dr. Phani El Hemoglobin (Bld) [Mass/Vol] 15.9 g/dL Normal 12.0-16.0 [facility] Comment on above: Performed By: #### C BC #### [facility] [address] [place] [address] Dr. Phani El IG # 0.05 10e3/ul Critically high 0.00-0.03 [facility] Comment on above: Performed By: #### C BC #### [facility] [address] [place] [address] Dr. Phani El IG % 0.8 % Critically high 0.0-0.5 [facility] Comment on above: Performed By: #### C BC #### [facility] [address] [place] [address] Dr. Phani El LYMPH # 1.9 103/ul Normal 1.2-3.8 [facility] Comment on above: Performed By: #### C BC #### [facility] [address] [place] [address] Dr. Phani El Lymphocytes/100 WBC (Bld) 30.1 % Normal 20.5-60.0 [facility] Comment on above: Performed By: #### C BC #### [facility] [address] [place] [address] Dr. Phani El MANUAL DIFF REQ NO Normal [facility] Comment on above: Performed By: #### C BC #### [facility] [address] [place] [address] Dr. Phani El MCH (RBC) [Entitic mass] 32.9 pg Normal 26.7-34.0 [facility] Comment on above: Performed By: #### C BC #### [facility] [address] [place] [address] Dr. Phani El MCHC (RBC) [Mass/Vol] 32.6 g/dL Normal 29.9-35.2 [facility] Comment on above: Performed By: #### C BC #### [facility] [address] [place] [address] Dr. Phani El MCV (RBC) [Entitic vol] 100.8 fL Critically high 81.0-99.0 [facility] Comment on above: Performed By: #### C BC #### [facility] [address] [place] [address] Dr. Phani El MONO # 0.5 103/ul Normal 0.3-0.8 [facility] Comment on above: Performed By: #### C BC #### [facility] [address] [place] [address] Dr. Phani El Monocytes/100 WBC (Bld) 7.2 % Normal 1.7-12.0 [facility] Comment on above: Performed By: #### C BC #### [facility] [address] [place] [address] Dr. Phani El NEUT # 3.8 103/ul Normal 1.4-6.5 [facility] Comment on above: Performed By: #### C BC #### [facility] [address] [place] [address] Dr. Phani El Neutrophils/100 WBC (Bld) 59.1 % Normal 43.0-75.0 [facility] Comment on above: Performed By: #### C BC #### [facility] [address] [place] [address] Dr. Phani El Platelet mean volume (Bld) [Entitic vol] 11.0 fL Normal 9.5-13.5 [facility] Comment on above: Performed By: #### C BC #### [facility] [address] [place] [address] Dr. Phani El PLT 167 103/ul Normal 150-450 [facility] Comment on above: Performed By: #### C BC #### [facility] [address] [address] [address] Phani El RBC 4.83 106/ul Normal 4.20-5.40 [facility] Comment on above: Performed By: #### C BC #### [facility] [address] [address] [address] Phani El WBC 6.4 103/ul Normal 4.0-11.0 [facility] Comment on above: Performed By: #### C BC #### [facility] [address] [address] [address] Phani El GLYCOHEMOGLOBIN A1Con 2022 ADA RECOMMENDATION SEE BELOW Normal [facility] Comment on above: Result Comment: ADA RECOMMENDED LIMIT 4.0 - 6.0 ADA THERAPEUTIC TARGET < 7.0 ACTION SUGGESTED > 7.0 Performed By: #### A 1C ####[facility] [address] [place] [address]Dr. Phani El Glucose [Mass/Vol] 114 mg/dL Normal [facility] Comment on above: Performed By: #### A 1C ####[facility] [address] [place] [address]Dr. Phani El HbA1c (Bld) [Mass fraction] 5.6 % Normal 4.5-6.2 [facility] Comment on above: Performed By: #### A 1C ####[facility] [address] [place] [address]Dr. Phani El LIPID PROFILEon 05-05-2022 CHOL-HDL RATIO NORM SEE BELOW Normal [facility] Comment on above: Result Comment: 3.3 - 4.4 LOW RISK 4.4 - 7.1 AVERAGE RISK 7.1 - 11.0 MODERATE RISK >11.0 HIGH RISK Performed By: #### C MP, LIPID #### [facility] [address] [address] [address] Phani El Cholesterol [Mass/Vol] 178 mg/dL Normal <=200 [facility] Comment on above: Performed By: #### C MP, LIPID #### [facility] [address] [address] [address] Phani El Cholesterol in HDL [Mass/Vol] 54 mg/dL Normal 40-60 [facility] Comment on above: Performed By: #### C MP, LIPID #### [facility] [address] [address] [address] Phani El Cholesterol in LDL [Mass/Vol] 86.6 mg/dL Normal [facility] Comment on above: Performed By: #### C MP, LIPID #### [facility] [address] [address] [address] Phani El Cholesterol.total/Ch olesterol in HDL [Mass ratio] 3.3 {ratio} Normal [facility] Comment on above: Performed By: #### C MP, LIPID #### [facility] [address] [place] [address] Dr. Phani El HDL NORMAL > or = 60 mg/dl - LO W CARDIOVASCULAR RISK <40 mg/dl - HIGH CARDIOVASCULAR RISK Normal [facility] Comment on above: Performed By: #### C MP, LIPID #### [facility] [address] [address] [address] Phani El LDL CALC NORMAL SEE BELOW Normal [facility] Comment on above: Result Comment: <100 mg/dl OPTIMAL 100 - 129 mg/dl NEAR OR ABOVE OPTIMAL 130 - 159 mg/dl BORDERLINE HIGH 160 - 189 mg/dl HIGH >190 mg/dl VERY HIGH Performed By: #### C MP, LIPID #### [facility] [address] [address] [address] Phani El Triglyceride [Mass/Vol] 187 mg/dL Critically high <=150 [facility] Comment on above: Performed By: #### C MP, LIPID #### [facility] [address] [place] [address] Dr. Phani El VLDL CALC 37.4 mg/dL Normal [facility] Comment on above: Performed By: #### C MP, LIPID #### [facility] [address] [address] [address] Phani El PROF 14(COMP METB)on 023 Albumin [Mass/Vol] 3.6 g/dL Normal 3.4-5.0 [facility] Comment on above: Performed By: #### C MP, LIPID ####[facility] [address] [place] [address]Dr. Phani El Albumin/Globulin [Mass ratio] 1.1 {ratio} Normal [facility] Comment on above: Performed By: #### C MP, LIPID ####[facility] [address] [place] [address]Dr. Phani El ALP [Catalytic activity/Vol] 91 U/L Normal 46-116 [facility] Comment on above: Performed By: #### C MP, LIPID ####[facility] [address] [place] [address]Dr. Phani El ALT [Catalytic activity/Vol] 34 U/L Normal 14-59 [facility] Comment on above: Performed By: #### C MP, LIPID ####[facility] [address] [place] [address]Dr. Phani El Anion gap [Moles/Vol] 11.6 mmol/L Normal [facility] Comment on above: Performed By: #### C MP, LIPID ####[facility] [address] [place] [address]Dr. Phani El AST [Catalytic activity/Vol] 18 U/L Normal 15-37 [facility] Comment on above: Performed By: #### C MP, LIPID ####[facility] [address] [place] [address]Dr. Phani El Bilirubin [Mass/Vol] 0.6 mg/dL Normal 0.2-1.0 [facility] Comment on above: Performed By: #### C MP, LIPID ####[facility] [address] [place] [address]Dr. Phani El Calcium [Mass/Vol] 9.2 mg/dL Normal 8.5-10.1 [facility] Comment on above: Performed By: #### C MP, LIPID ####[facility] [address] [place] [address]Dr. Phani El Chloride [Moles/Vol] 106 mmol/L Normal 98-107 [facility] Comment on above: Performed By: #### C MP, LIPID ####[facility] [address] [place] [address]Dr. Phani El CO2 [Moles/Vol] 32.3 mmol/L Critically high 21.0-32.0 [facility] Comment on above: Performed By: #### C MP, LIPID ####[facility] [address] [place] [address]Dr. Phani El Creatinine [Mass/Vol] 1.04 mg/dL Critically high 0.55-1.02 [facility] Comment on above: Performed By: #### C MP, LIPID ####[facility] [address] [place] [address]Dr. Phani El EGFR-AF CENTRAL AFRICAN >60 Normal >=60 [facility] Comment on above: Performed By: #### C MP, LIPID ####[facility] [address] [place] [address]Dr. Phani El EGFR-NON AF CENTRAL AFRICAN 54 mL/min/1.73m2 Critically low >=60 [facility] Comment on above: Performed By: #### C MP, LIPID ####[facility] [address] [place] [address]Dr. Phani El Globulin (S) [Mass/Vol] 3.4 g/dL Normal [facility] Comment on above: Performed By: #### C MP, LIPID ####[facility] [address] [place] [address]Dr. Phani El Glucose [Mass/Vol] 124 mg/dL Critically high 74-106 [facility] Comment on above: Performed By: #### C MP, LIPID ####[facility] [address] [place] [address]Dr. Phani El Potassium [Moles/Vol] 3.9 mmol/L Normal 3.5-5.1 [facility] Comment on above: Performed By: #### C MP, LIPID ####[facility] [address] [place] [id number]. Phani El Protein [Mass/Vol] 7.0 g/dL Normal 6.4-8.2 [facility] Comment on above: Performed By: #### C MP, LIPID ####[facility] [address] [place], [place] [address]Bo. Phani El Sodium [Moles/Vol] 146 mmol/L Critically high 136-[address] [facility] Comment on above: Performed By: #### C MP, LIPID ####[facility] [id number] [id number]. Phani El Urea nitrogen [Mass/Vol] 14.0 mg/dL Normal 7.0-18.0 [facility] Comment on above: Performed By: #### C MP, LIPID ####[facility] [id number] [id number]. Phani El Urea nitrogen/Creatinine [Mass ratio] 13.5 mg/mg Normal [facility] Comment on above: Performed By: #### C MP, LIPID ####[facility] [id number] [id number]. Phani El VITAMIN B12on 05-05-2022 Cobalamin (Vitamin B12) [Mass/Vol] 321.0 pg/mL Normal 193.0-986.0 [facility] Comment on above: Performed By: #### V ITAD, VITB12 #### [facility] [address] [place] [address] Dr. Phani El VITAMIN D 25 OHon 05-05-2022 VIT D 25-OH 58.7 ng/mL Normal [facility] Comment on above: Performed By: #### V ITAD, VITB12 #### [facility] [address] [place] [address] Dr. Phani El VIT D RANGES SEE BELOW Normal [facility] Comment on above: Result Comment: <20 ng/mL Vit D deficient 20 - <30 ng/mL Vit D insufficient 30 - 100 ng/mL Vit D sufficient >100 ng/mL Potential Toxicity Performed By: #### V ITAD, VITB12 #### [facility] [address] [address] [address] Phani El XR CHEST 2 Von [...] LORI FROST Date: 2022-05-05 10:05 Normal [facility] Ambulatory Visit Summaryon 0 03-24-2022 Ambulatory Visit [...] Vitamin B12 deficiency Vitamin D deficiency Normal [facility] General Surgery Office/Clini c Noteon 03-24-2022 General [...] inactivated - Not Given Patient Refuses Normal [facility] Comment on above: Result Comment: Elec tronically Signed By: CAMILLA AMADOR, Bryson Steinberg\Date and Time Signed: 03/24/22 13:12 EST Reminderson 03-24-2022 Reminders - From: Kristine Harrison LPN To: N - Clinical; Sent: 03/24/2022 13:05:34 EST Show up: 01/26/2032 07:00:00 EST Subject: colonoscopy recall Due Date/Time: 02/26/2032 07:00:00 EST Reminder/Recall Patient is due for screening colonoscopy 02/26/2032. Normal [facility] Covid-19 PCR (CVDTBH)on 02-10 SARS-CoV-2 (COVID-19) RNA MARISOL+probe Ql (Unsp spec) Detected Abnormal NOT DETECTED [facility] Comment on above: Result Comment: This test is not yet approved or cleared by the [place] FDA. When there are no FDA-approved or cleared tests available, and other criteria are met, FDA can make tests available under an emergency access mechanism called an Emergency Use Authorization (EUA). The EUA for this test is supported by the Plywood Matcher of Health and Human Service's (HHS's) declaration [...] used). Performed By: #### C VDTBH #### [facility] [address] [address] [address] Phani El INFLUENZA A AND B AGon 03-10 [facility] SEE BELOW Normal [facility] Comment on above: Result Comment: Nega tive for Flu A protein angiten. Infection due to Flu A cannot be ruled out. Flu A angiten in the sample may be below the detection limit of the test. Performed By: #### I NFLUAB ####[facility] [address] [address]Dr. Phani El INFLUBNEGH SEE BELOW Normal [facility] Comment on above: Result Comment: Nega tive for Flu B protein antigen. Infection due to Flu B cannot be ruled out. Flu B antigen in the sample may be below the detection limit of the test. Performed By: #### I NFLUAB ####[facility] [id number] [address]DrCindy El INFLUENZA A AG Negative Normal NEGATIVE SEE COMMENT [facility] Comment on above: Performed By: #### I NFLUAB ####[facility] [address] [place], [place] [address]DrCindy El INFLUENZA B AG Negative Normal NEGATIVE SEE COMMENT [facility] Comment on above: Performed By: #### I NFLUAB ####[facility] [address] [place], [place] [address]DrCindy El [facility]on 02-09 SARS-CoV-2 (COVID-19) RNA MARISOL+probe Ql (Unsp spec) Detected Abnormal NOT DETECTED [facility] Comment on above: Result Comment: This test is not yet approved or cleared by the [place] FDA. When there are no FDA-approved or cleared tests available, and other criteria are met, FDA can make tests available under an emergency access mechanism called an Emergency Use Authorization (EUA). The EUA for this test is supported by the Plywood Matcher of Health and Human Service's declaration that [...] used). Performed By: #### C VDTB #### [facility] [address] [place] [address] Dr. Phani El Pathology Noteon 02-27-2022 Pathology Note [id number] 0CD:127 Normal [facility] Outside Colonoscopyon 2022 Outside Colonoscopy [id number] 0CD:127 Normal [facility] Reminderson 02-26-2022 Reminders - From: Kristine Harrison LPN To: Kristine Harrison LPN; Sent: 02/26/2022 11:14:25 EST Show up: 05/18/2022 07:00:00 EDT Subject: Ambulatory Reminder Due Date/Time: 05/27/2022 07:00:00 EDT Reminder/Recall log in to extra lap top in [place] to keep account active Normal [facility] Lab Reportson 02-23-2022 Lab Reports [id number] 0CD:127 Normal [facility] Covid-19 PCR (CVDTB)on 02-08 SARS-CoV-2 (COVID-19) RNA MARISOL+probe Ql (Unsp spec) Not detected Normal NOT DETECTED [facility] Comment on above: Result Comment: This test is not yet approved or cleared by the [place] FDA. When there are no FDA-approved or cleared tests available, and other criteria are met, FDA can make tests available under an emergency access mechanism called an Emergency Use Authorization (EUA). The EUA for this test is supported by the Plywood Matcher of Health and Human Service's (HHS's) declaration [...] consistent with SARS-CoV-2. Performed By: #### C [facility] ####[address] [place], [place] [address]Sr. Phani El Pre-Certification Formon Pre-Certification Form [id number]. 00CD:127 Normal [facility] Consent for Procedure/Surger yon 02-05-2022 Consent for Procedure/Surgery [id number] 0CD:127 Normal [facility] Formson 02-05-2022 Forms [id number] 0CD:127 Normal [facility] Physician Referralon 022 Physician Referral [id number] 0CD:127 Normal [facility] MRI Knee w/o Lefton 12-26-19 22 MRI [...] by Jason Sanchez on 12/25/2021 1505 Normal [facility] Specialist MRI LSPINE WO CONon 12-05-19 MRI LSPINE [...] by: NADINE GRANT Date: 2021-12-04 17:54 Normal [facility] XR LSPINE 2_3 VIEWSon 2021 [...] NADINE GRANT Date: 2021-09-30 07:20 Normal [facility] MRI Knee w/o Lefton 07-30-19 MRI Knee [...] by Robby Diaz on 07/30/[address] [facility] [facility] [address] Patcher Vital Signs Date Time Vital Sign Value Performing Clinician Facility 03-25-2023 13:130500 Body height 165.1 cm Jaymie Phoenix NP Work Phone: [facility] 03-25-2023 13:13-0500 Body mass index (BMI) [Ratio] 42.9 kg/m2 Jaymie Phoenix NP Work Phone: [facility] 03-25-2023 13:13-0500 Body temperature 97.5 [degF] Jaymie Alban DOWD Work Phone: [facility] 03-25-2023 13:13-0500 Body weight 116.94 kg Jaymie Phoenix NP Work Phone: [facility] 03-25-2023 13:13-0500 Diastolic blood pressure 68 mm[Hg] Jaymie Maddyhholz PRINT AND PATTERN DESIGNER Work Phone: [facility] 03-25-2023 13:13-0500 Heart rate 71 /min Jaymie Aichholz [employer]INT AND PATTERN DESIGNER Work Phone: [facility] 03-25-2023 13:13-0500 Respiratory rate 20 /min Jaymie Aichholz [employer]INT AND PATTERN DESIGNER Work Phone: [facility] 03-25-2023 13:13-0500 SaO2% (BldA) [Mass fraction] 95 % Jaymie Aichholz [employer]INT AND PATTERN DESIGNER Work Phone: [facility] 03-25-2023 13:13-0500 Systolic blood pressure 108 mm[Hg] Jaymie Aichholz PRINT AND PATTERN DESIGNER Work Phone: [facility] 03-16-2023 13:35-0500 Body height 165.1 cm Jaymie Aichholz [employer]INT AND PATTERN DESIGNER Work Phone: [facility] 03-16-2023 13:35-0500 Body mass index (BMI) [Ratio] 41.6 kg/m2 Jaymie Aichholz [employer]INT AND [employer]TERN DESIGNER Work Phone: [facility] 03-16-2023 13:35-0500 Body temperature 98.4 [degF] Jaymie Maddyhholz PRINT AND PATTERN DESIGNER Work Phone: [facility] 03-16-2023 13:35-0500 Body weight 113.4 kg Jaymie Maddyhholz PRINT AND PATTERN DESIGNER Work Phone: [facility] 03-16-2023 13:35-0500 Diastolic blood pressure 72 mm[Hg] Jaymie Aichholz [employer]INT AND PATTERN DESIGNER Work Phone: [facility] 03-16-2023 13:35-0500 Heart rate 77 /min Jaymie Aichholz [employer] AND PATTERN DESIGNER Work Phone: [facility] 03-16-2023 13:35-0500 Respiratory rate 18 /min Jaymie Aichholz [employer]INT AND PATTERN DESIGNER Work Phone: [facility] 03-16-2023 13:35-0500 SaO2% (BldA) [Mass fraction] 95 % Jaymie Phoenix [employer]INT AND [employer]TERN DESIGNER Work Phone: [facility] 03-16-2023 13:35-0500 Systolic blood pressure 112 mm[Hg] Jaymie Phoenix PRINT AND PATTERN DESIGNER Work Phone: [facility] 02-03-2022 13:27-0500 Blood Pressure Location Bryson NILL [facility] 02-03-2022 13:27-0500 Diastolic blood pressure 80 mm[Hg] Bryson NILL [facility] 02-03-2022 13:27-0500 Heart rate 72 /min Bryson NILL [facility] [place] 02-03-2022 13:27-0500 Respiratory rate 16 /min Bryson NILL [facility] [place] 02-03-2022 13:27-0500 Systolic blood pressure 126 mm[Hg] Bryson NILL [facility] [place] Encounters Encounter Date Encounter Type Care Provider Facility Start: 04-26-2023 End: 04-26-2023 ambulatory JAYMIE AICHHOLZ Not Available Start: 03-25-2023 End: 03-25-2023 ambulatory JAYMIE AICHHOLZ Not Available Start: 03-25-2023 Bamboo flowsheet Jaymie Phoenix PRINT AND PATTERN DESIGNER Work Phone: [facility] Start: 03-25-2023 Bamboo flowsheet Jaymie Alban [employer]INT AND PATTERN DESIGNER Work Phone: [facility] Start: 03-25-2023 End: 03-25-2023 Office outpatient visit 25 minutes Jaymie Phoenix [employer]INT AND PATTERN DESIGNER Work Phone: [facility] Comment on above: Edema of right lower extremity (Primary Dx); BMI 40.0-44.9, adult (CMS/HCC); Shortness of breath; COPD mixed type (CMS/HCC); Primary hypertension (CMS/HCC); Bilateral lower extremity edema Start: 03-16-2023 End: 03-16-2023 ambulatory JAYMIE ALBAN Not Available Start: 03-16-2023 End: 03-16-2023 Office outpatient visit 25 minutes Jaymie Phoenix [employer] AND PAT[employer] DESIGNER Work Phone: [facility] Comment on above: COPD mixed type (CMS /HCC) (Primary Dx); Tobacco dependence; BMI 40.0-44.9, adult (CMS/HCC); Body mass index [BMI] 40.0-44.9, adult (Z68.41); Primary hypertension (CMS/HCC); Bilateral lower extremity edema Start: 01-26-2023 End: 01-26-2023 ambulatory JAYMIE ALBAN Not Available Start: 01-19-2023 ambulatory Alphonse Patton acility:[facility] Start: 07-08-2022 ambulatory MEREDITH PHOENIX Facil ity:[facility]1 Start: 05-29-2022 End: 05-30-2022 ambulatory MEREDITH PHOENIX Facility:[facility] Start: 05-05-2022 End: 05-06-2022 ambulatory MEREDITH PHOENIX Facility:[facility] Start: 04-30-2022 End: 05-01-[address] JIM ALLAN . Facility:[facility] Start: 03-31-2022 End: 03-31-[address] JIM ALLAN . Facility:[facility] Start: 03-27-[address] JIM ALLAN . Faci lity:[facility]1 Start: 03-24-2022 End: 03-25-2022 ambulatory Bryson SAMPSON Facility:[facility] Start: 03-17-2022 ambulatory Bryson R CAMILLA Facility :[facility] Start: 03-10-2022 End: 03-10-2022 ambulatory MEREDITH PHOENIX Facility:[facility]1 Start: 03-02-2022 Encounter for preprocedural laboratory examination DR JIM ALLAN . [facility] Start: 02-28-2022 End: 03-01-2022 Encounter for preprocedural laboratory examination MEREDITH PHOENIX Facility:[facility] Start: 02-28-2022 End: 03-01-2022 ambulatory HEAD OF DESIGN JAYMIE PHOENIX Facility:[facility] Start: 02-25-2022 End: 02-26-2022 ambulatory Bryson SAMPOSN Facility:CD:[id number] Start: 02-21-2022 End: 02-22-[address] BRYSON SAMPSON . Facility:[facility] Start: 02-06-2022 End: 02-07-2022 ambulatory JENNY THORNE . Facility: Start: 02-03-2022 End: 02-04-2022 ambulatory Tracy Piper Phoenix Facility: [facility] Start: 02-03-2022 End: 02-03-2022 Patient encounter procedure Bryson SAMPSON [facility] Start: 01-13-2022 End: 01-13-[address] JIM ALLAN . Facility: Start: 01-08-2022 End: 01-09-[address] JIM [...] Performing Clinician Start: 03-25-2023 Mammography Jaymie kohler [employer] AND PATTERN DESIGNER Work Phone: Start: 02-25-2022 Colonoscopy Jaymie kohler PRINT AND PATTERN DESIGNER Work Phone: section Bryson Saldaña Ligation of fallopian tube Leslie SAMPSON Repair of meniscus Bryson Ac DANTE Total abdominal hysterectomy with bilateral salpingo-oophorectomy Bryson SAMPSON Plan of Treatment Date Care Activity Detail Author Start: 02-26-2032 Screening for malign ant neoplasm of colon [facility] Start: 12-26-2024 Screening for malign ant neoplasm of colon FIT-DNA [facility] Start: 03-25-2024 Screening for malign ant neoplasm of breast Mammogram [facility] Start: 08-08-2023 Influenza vaccination Influenza Vacc ine (#1) [facility] Comment on above: Postponed from 10/09 (Patient Refused) Start: 04-06-2023 End: 04-06-2023 Patient encounter procedure 04/06/2023 1:40 PM EST Office Visit [facility] [address] [place] [place] [phone] Jaymie Phoenix, NILE [address] [place] [address] [facility] Start: 03-25-2023 End: 03-25-2024 CBC W Auto Differential panel - Blood CBC and differential Lab Routine Edema of right lower extremity Expected: 03/25/2023 (Approximate), Expires: 03/25/2024 [facility] Comment on above: Expected: 03/25/2023 (Approximate), Expires: 03/25/2024 Start: 03-25-2023 End: 03-25-2024 Comprehensive metabolic 2000 panel - Serum or Plasma Comprehensive metabolic panel Lab Routine Edema of right lower extremity Expected: 03/25/2023 (Approximate), Expires: 03/25/2024 [facility] Comment on above: Expected: 03/25/2023 (Approximate), Expires: 03/25/2024 Start: 03-25-2023 End: 03-25-2024 Fibrin D-dimer FEU [Mass/volume] in Platelet poor plasma D-dimer, quantitative Lab Routine Edema of right lower extremity Expected: 03/25/2023 (Approximate), Expires: 03/25/2024 [facility] Comment on above: Expected: 03/25/2023 (Approximate), Expires: 03/25/2024 Start: 03-25-2023 End: 03-25-2024 US.doppler Lower extremity vein - right Vascular US lower extremity venous duplex right Imaging STAT Edema of right lower extremity Expected: 03/25/2023, Expires: 03/25/2024 [facility] Work Phone: Comment on above: Expected: 03/25/2023 , Expires: 03/25/2024 Start: 03-25-2023 End: 03-25-2024 XR Chest 2 Views XR chest 2 views Imaging Routine Edema of right lower extremity Shortness of breath Expected: 03/25/2023, Expires: 03/25/2024 [facility] Comment on above: Expected: 03/25/2023 , Expires: 03/25/2024 Start: 08-16-1993 Screening for malign ant neoplasm of cervix HPV/Cotest [facility] Start: 08-16-1984 Screening for malign ant neoplasm of cervix Pap Smear [facility] Start: 1965 Medicare Annual Well ness (AWV) Medicare Annual Wellness (AWV) [facility] Start: 1965 Screening for malign ant neoplasm of colon [facility] Immunizations Immunization Date Immunization Notes Care Provider Fa jack NEGATED: Highlighted row has not occurred!02-03-2022 influenza virus vaccine, unspecified formulation Bryson RACHELPiper [facility] [place] Payers Date Payer Category Payer Self-pay 2021 Medicare AETNA MEDICARE A DVANTAGE AETNA MEDICARE REPLACEMENT [id number] 2021-Present [address] [place] [address] [id number] 1963 Unknown [id number] 2.16.840.1.496764.3.579.2. 727 1963 Unknown [id number] 2.16.840.1.678810.3.579.2. 72 1963 Unknown [id number] 2.16.840.1.222674.3.579.2. 72 1963 Unknown [id number] 2.16.840.1.095682.3.579.2 72 1963 Unknown [id number] 2.16.840.1.500458.3.579.2. 72 1963 Unknown [id number] 2.16.840.1.807454.3.579.2 59 1963 Unknown [id number] 2.16.840.1.654167.3.579.2 59 1963 Unknown [id number] 2.16.840.1.150445.3.579.2 59 1963 Unknown [id number] 2.16.840.1.967857.3.579.2 59 1963 Unknown [id number] 2.16.840.1.972974.3.579.2 59 1963 Unknown [id number] 2.16.840.1.066077.3.579.2 1963 Unknown [id number] 2.16.840.1.616181.3.579.2 59 1963 Unknown [id number] 2.16.840.1.184286.3.579.2 59 1963 Unknown [id number] 2.16.840.1.207622.3.579.2 59 1963 Unknown [id number] 2.16.840.1.322519.3.579.2 59 1963 Unknown [id number] 2.16.840.1.575161.3.579.2 59 1963 Unknown [id number] 2.16.840.1.484548.3.579.2 59 1963 Unknown [id number] 2.16.840.1.035114.3.579.2. 593 1963 Unknown [id number] 2.16.840.1.959600.3.579.2. 593 1963 Unknown [id number] 2.16.840.1.573104.3.579.2. 593 1963 Unknown [id number] 2.16.840.1.732823.3.579.2. 593 1963 Unknown [id number] 2.16.840.1.406539.3.579.2. 593 1963 Unknown [id number] 2.16.840.1.132059.3.579.2. 593 1963 Unknown [id number] 2.16.840.1.538088.3.579.2. 593 1963 Unknown [id number] 2.16.840.1.100436.3.579.2. 59 1963 Unknown [id number] 2.16.840.1.644907.3.579.2. 593 1963 Unknown [id number] 2.16.840.1.415023.3.579.2. 593 1963 Unknown [id number] 2.16.840.1.986398.3.579.2. 1259 1963 Unknown [id number] 2.16840.1.876078.3.579.2. 1259 1963 Unknown [id number] 2.16.840.1.355254.3.579.2. 1259 1959 Private Health Insurance [id number] Unknown [id number] 2.16840.1.654862.3.579.2. 531 Social History Date Type Detail Facility Start: 02-03-2022 Tobacco smoking status Heavy t obacco smoker (finding) [facility] Tobacco smoking status Never [facility] Start: 03-16-2023 End: 03-25-2023 Sex Assigned At Female [facility] Start: 01-26-2023 Tobacco smoking stat us MNIS Smokes tobacco daily [facility] History of [...] Sex Assigned At Not on file [facility] Functional Status Date Assessment Result Facility 02-03-2022 Functional Status N/A [facility] Clinical Notes 12-09-2021 to 03-25-2023 Jaymie Phoenix NP - 03/25/2023 4:34 PM Ashok Phoenix NP - 03/25/2023 4:32 PM Ashok Phoenix NP - 03/25/2023 4:32 PM ESTHUMBARGEREDEL - 03/25/2023 1:00 PM EST Note Date [...] (BMI) of 40.0 to 44.9 in adult ([facility]) 01/26/2023 COPD mixed type ([facility]) 01/26/2023 DENIES HX OF BLOOD BORNE DISEASES Depression ([facility]) Fibromyalgia Open wound of left foot 01/26/2023 [...] chest 2 views documented in this encounter [facility] 03-16-2023 History of Present illness Narrative Associated [...] (BMI) of 40.0 to 44.9 in adult ([facility]) 01/26/2023 COPD mixed type ([facility]) 01/26/2023 DENIES HX OF BLOOD BORNE DISEASES Depression ([facility]) Fibromyalgia Open wound of left foot 01/26/2023 Open wound of second toe 01/26/2023 Other acute sinusitis 01/26/2023 Primary hypertension ([facility]) 01/26/2023 Tobacco dependence 01/26/2023 Past Surgical History: [...] 40.0-44.9, adult (Z68.41) documented in this encounter [facility] 04-30-2022 Note CONSULTATION CONSULTATION DATE: 04/30/2022 TO: [...] office on an as needed basis. [facility] 02-25-2022 Note OPERATIVE NOTE OPERATION DATE: 02/25/2022 [...] good condition. CC: Patient's family physician [facility] 02-06-2022 Note CONSULTATION CONSULTATION DATE: 02/06/2022 HISTORY [...] followed up in the clinic thereafter. [facility] 02-03-2022 Note Chief Complaint consultation for positive [...] 30 days Tobacco (more content not included)... [facility] Comment on above: Result Comment: Elec tronically Signed By: CAMILLA AMADOR, Bryson Steinberg\Date and Time Signed: 02/03/22 [...] followed up in the clinic thereafter. [facility] 12-09-2021 Note CONSULTATION CONSULTATION DATE: 12/09/2021 CHIEF [...] would like to proceed. CC: Jaymie Phoenix, HEAD OF DESIGN [facility] Evaluation + Plan note No data available for this section [facility] [place] Evaluation note Diagnosis COPD mixed type (CMS/HCC)- Primary Tobacco dependence Tobacco use disorder BMI 40.0-44.9, adult (CMS/HCC) Body mass index [BMI] 40.0-44.9, adult (Z68.41) Primary hypertension (CMS/HCC) Unspecified essential hypertension Bilateral lower extremity edema documented in this encounter [facility] HealthcareEvaluation note* Diagnosis Edema of right lower extremity- Primary BMI 40.0-44.9, adult (CMS/HCC) Shortness of breath COPD mixed type (CMS/HCC) Primary hypertension (CMS/HCC) Unspecified essential hypertension Bilateral lower extremity edema documented in this encounter [facility] Healthcare[facility]ospital Discharge instructions No data available for this section [facility] [place] Progress note No data available for this section [facility] [place] Summary Purpose Family History No Family History Records FoundNo Family History Records FoundNo Family History Records FoundNo Family History Records FoundNo Family History Records Found Advance Directives No Advanced Directives Records FoundNo Advanced Directives Records FoundNo Advanced Directives Records FoundNo Advanced Directives Records FoundNo Advanced Directives Records Found Reason for Referral Specialty Diagnoses / Procedures Referred By Jose williamson Referred To Contact Radiology Diagnoses Edema of right lower extremity Procedures Vascular US lower extremity venous duplex right Jaymie Phoenix NP [address] [place] [address] Referral ID Status Reason Start Date Expiration Date V isits Requested Visits Authorized [id number] Authorized 03/25/2023 09/21/2023 1 1 Additional Source Comments INFORMATION SOURCE (unrecogn ized section and content) DATE CREATED AUTHOR 12/26/2021 [facility] dical Specialist DATE CREATED AUTHOR AUTHOR'S ORGANIZ ATION 03/25/2022 [facility] DATE CREATED AUTHOR AUTHOR'S ORGANIZ ATION 07/17/2022 [facility] DATE CREATED AUTHOR AUTHOR'S ORGANIZ ATION 04/20/2023 [facility] DATE CREATED AUTHOR AUTHOR'S ORGANIZ ATION 04/27/2023 [facility] dical Specialists EPIC Patient Care team informatio n (unrecognized section and content) 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 Start Date End Date Jaymie Phoenix NP [address] [place] [id number] Nurse Practitioner Family Medicine 01/26/23 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 [facility] [employer] provides no warranty or guarantee of the accuracy or completeness of information in this document.
--- NOTE | 2023-04-30 13:13 | CT_ITS ---
[address] [address] Patient Name: FRANKY SRINIVASAN MRN: [id number] date: 1965 Sex: F Assigned Patient Location: CT Current Patient Location: Accession/Order Number: [id number] Exam Date: 04/30/2023 12:55 Report Date: 05/03/2023 08:56 At the request of: AICHA LLANOS Procedure: CT abdomen pelvis w con EXAMINATION: CT abdomen pelvis w con HISTORY: Bilateral Lower Extremity Edema R60.0 COMPARISON: 03/26/2023 CT chest, 07/25/2019 CT abdomen pelvis TECHNIQUE: CT images were created with IV contrast. Axial, Coronal, and Sagittal images. Dose reduction techniques were achieved by using automated exposure control and/or adjustment of mA and/or kV according to patient size and/or use of iterative reconstruction technique. FINDINGS: LUNG BASES: No visible pulmonary or pleural disease. LIVER: No enlargement, atrophy, abnormal density, or significant focal lesion. BILIARY: No visible dilatation or calcification. PANCREAS: No lesion, fluid collection, ductal dilatation, or atrophy. SPLEEN: No enlargement or focal lesion. ADRENALS: No mass or enlargement. KIDNEYS: No mass, obstruction, or calcification. BOWEL/MESENTERY: No visible mass, obstruction, or bowel wall thickening. AORTA/VASCULAR: No aneurysm or dissection. RETROPERITONEUM: No mass or adenopathy. LYMPH NODES: Increased number of normal-sized lymph nodes URINARY BLADDER: No visible focal wall thickening, lesion, or calculus. PELVIC ORGANS: Hysterectomy ABDOMINAL WALL: No mass or hernia. BONES: No bony lesion or fracture. OTHER: Negative. CT/CT abdomen pelvis w con IMPRESSION: No acute intraperitoneal abnormality No central venous obstruction observed Electronically authenticated by: NADINE GRANT Date: 05/03/2023 08:56
== END 2023-04-30 12:01 | disposition home or self-care (01) ==
LOC: CT 12:00
PROVIDERS: PCP Nurse Practitioner; Visit Provider Nurse Practitioner
DX: R60.0 Localized edema (principal)
CPT/HCPCS: 74177; Q9967

== ENCOUNTER 2023-05-05 14:55 | Outpatient (OUT) | payer MEDICARE, SELFPAY ==
--- NOTE | 2023-05-05 15:00 | CA_ITS ---
Patient Name: FRANKY SRINIVASAN MR#: [id number] : 1965 Exam Date: 05/05/2023 Ordering Doctor: MEREDITH Phoenix CNP ECHOCARDIOGRAM REPORT PROCEDURE: CA ECHO DOPPLER COMPLETE INDICATIONS: Bilateral lower extremity edema, COPD, primary hypertension COMPARISON: None. DESCRIPTION: COMPLETE ECHOCARDIOGRAM Real-time transthoracic echocardiography with 2D, M-mode, spectral and color flow Doppler performed. QUALITY: Technical quality was adequate. LEFT VENTRICLE: Normal chamber size. Mild concentric left ventricular hypertrophy. Global left ventricular systolic function is normal. LV EF: Estimated left ventricular ejection fraction is 65%. DIASTOLIC: Diastolic function is indeterminate. ATRIAL SEPTUM: LEFT ATRIUM: Normal chamber size. RIGHT ATRIUM: Mild dilatation. RIGHT VENTRICLE: Normal chamber size. Normal right ventricular systolic function. TRICUSPID VALVE: Normal mobility and thickness. No stenosis with trivial regurgitation. Mild pulmonary hypertension. RVSP 36 mmHg. MITRAL VALVE: Normal mobility and thickness. No evidence of mitral valve stenosis. There is no mitral annular calcification. Trivial mitral regurgitation. AORTIC VALVE: Normal trileaflet appearance. No visible sclerosis. Normal leaflet mobility. No evidence of aortic valve stenosis. No aortic regurgitation. AORTIC ROOT: Normal diameter and appearance. PULMONIC VALVE: Normal thickness and mobility. No stenosis. Trivial regurgitation. PERICARDIUM: Trivial pericardial effusion. IVC: Collapses with inspirations. Normal size. PLEURA: CONCLUSION: 1. Mild concentric left ventricular hypertrophy with normal systolic function. Estimated LVEF is 65%. 2. Normal right ventricular size and systolic function. 3. No significant valvular dysfunction. 4. Mildly elevated right-sided pressures. Adult Echocardiography Procedure Report Left Ventricle LVEDD (3.7 - 5.6 cm): 4.62 cm LVESD (2.2 - 4.0 cm): 3.22 cm LVIVS thickness (0.6 - 1.2 cm): 1.18 cm LVPW thickness (0.5 - 1.0 cm): 1.08 cm e': 0.08 m/s E - e': 11.45 LVOT Max Gradient: 3.58 mm[Hg] LVOT Area (cm2): 0.95 m/s Peak Velocity (LVOT): 0.95 m/s Mean Velocity (LVOT): 0.63 m/s LVOT Diameter 2.24 cm Left Ventricular Ejection Fraction: 65 % Left Atrium LA Volume Index (2D A2C): 28.01 ml/m2 Left Atrium Systolic Dimension: 3.58 cm Mitral Valve MV E to A Ratio: 1.05 Mitral Valve A-Wave Peak Velocity: 0.93 m/s Mitral Valve E-Wave Peak Velocity: 0.97 m/s Right Ventricle RV Internal Diastolic Dimension: 3.48 cm Aorta AO Root Diam: 3.25 cm Ascending Ao Diam: 2.65 cm Aortic Valve AoV Area (Peak Jan): 3.95 cm2, 3.95 cm2 AoV Area (VTI): 3.55 cm2, 3.55 cm2 Peak Velocity(Antegrade Flow): 0.95 m/s Peak Gradient(Antegrade Flow): 3.58 mm[Hg] Mean Velocity(Antegrade Flow): 0.65 m/s Mean Gradient(Antegrade Flow): 1.91 mm[Hg] Velocity Time Integral: 21.75 cm Tricuspid Valve Peak Velocity (Regurgitant Flow): 2.29 m/s, 2.89 m/s Pulmonic Valve Mean Gradient: 2.69 mm[Hg] Mean Velocity: 0.78 m/s Peak Velocity: 1.06 m/s, 0.92 m/s Peak Gradient: 3.36 mm[Hg], 4.50 mm[Hg] Right Atrium Right Atrium Systolic Pressure: 35.70 ml, 35.70 ml Dictated by: Johnathan Garcia M.D. on 05/05/2023 at 16:40 Approved by: Johnathan Garcia M.D. on 05/05/2023 at 16:42
--- OUTSIDE RECORDS SUMMARY | 2023-05-05 15:08 | XMS_ITS | CCD ---
Author Organization [facility] Care Team Providers Care Respiratory Scientist Name Role Phone JAYMIE PHOENIX Primary Care Physician Bryson SAMPSON Attending Unavailable JAYMIE PHOENIX Referring Unavailabl e NILL, Bryson Hernandez Attending Unavailable Aichholz, Tracy L Referring Unavailable NILL, Bryson Hernandez Attending Unavailable NILL, Bryson Hernandez Attending Unavailable NILL, Bryson Hernandez Attending Unavailable AICHHOLZ, BRICKLAYER'S ASSISTANT JAYMIE Primary Care Unavailable ALLAN ., DR JIM Mcdonnell Attending Unavailable ALLAN ., DR JIM Mcdonnell Admitting Unavailable ALLAN ., DR JIM Mcdonnell Consulting Unavailable ROBINSON ., GLENROY Admitting Unavailable ROBINSON ., GLENROY Attending Unavailable SJ SOLER Consulting Unavailable AICHHOLZ, BRICKLAYER'S ASSISTANT JAYMIE Primary Care Unavailable MNEDEZ ., MR DEMETRIUS Admitting Unavailable MENDEZ ., MR DEMETRIUS Attending Unavailable AICHHOLZ, BRICKLAYER'S ASSISTANT JAYMIE Primary Care Unavailable AICHHOLZ, BRICKLAYER'S ASSISTANT JAYMIE Admitting Unavailable JUANITA, DR NADINE Caldwell Consulting Unavailable AICHHOLZ, BRICKLAYER'S ASSISTANT JAYMIE Primary Care Unavailable AICHHOLZ, BRICKLAYER'S ASSISTANT JAYMIE Attending Unavailable AICHHOLZ, BRICKLAYER'S ASSISTANT JAYMIE Consulting Unavailable AICHHOLZ, BRICKLAYER'S ASSISTANT JAYMIE Admitting Unavailable JUANITA, DR NADINE Caldwell Consulting Unavailable AICHHOLZ, BRICKLAYER'S ASSISTANT JAYMIE Primary Care Unavailable AICHHOLZ, BRICKLAYER'S ASSISTANT JAYMIE Attending Unavailable AICHHOLZ, BRICKLAYER'S ASSISTANT JAYMIE Consulting Unavailable AICHHOLZ, BRICKLAYER'S ASSISTANT JAYMIE Primary Care Unavailable NILL ., DR MASSEY Admitting Unavailable NILL ., DR MASSEY Attending Unavailable NILL ., DR MASSEY Consulting Unavailable SONDRA FELICIANO Consulting Unavailable ROBINSON ., GLENROY Admitting Unavailable ROBINSON ., GLENROY Attending Unavailable ROBINSON .GLENROY Consulting Unavailable AICHHOLZ, BRICKLAYER'S ASSISTANT JAYMIE Primary Care Unavailable ALLAN ., DR JIM Mcdonnell Attending Unavailable ALLAN ., DR JIM Mcdonnell Consulting Unavailable ALLAN ., DR JIM Mcdonnell Admitting Unavailable AICHHOLZ, BRICKLAYER'S ASSISTANT JAYMIE Primary Care Unavailable MARIA FERNANDA SOSA Consulting Unavailable ALLAN ., DR JIM Mcdonnell Attending Unavailable ALLAN ., DR JIM Mcdonnell Consulting Unavailable ALLAN ., DR JIM Mcdonnell Admitting Unavailable AICHHOLZ, BRICKLAYER'S ASSISTANT JAYMIE Primary Care Unavailable ALLAN ., DR JIM Mcdonnell Admitting Unavailable ALLAN ., DR JIM Mcdonnell Attending Unavailable ALLAN ., DR JIM Mcdonnell Consulting Unavailable AICHHOLZ, BRICKLAYER'S ASSISTANT JAYMIE Primary Care Unavailable ALLAN ., DR JIM Mcdonnell Admitting Unavailable ALLAN ., DR JIM Mcdonnell Attending Unavailable AICHHOLZ, BRICKLAYER'S ASSISTANT JAYMIE Primary Care Unavailable THORNE ., JENNY Consulting Unavailable ALLAN ., DR JIM Mcdonnell Admitting Unavailable ALLAN ., DR JIM Mcdonnell Attending Unavailable ALLAN ., DR JIM Mcdonnell Consulting Unavailable AICHHOLZ, BRICKLAYER'S ASSISTANT JAYMIE Primary Care Unavailable ALLAN ., DR JIM Mcdonnell Admitting Unavailable ALLAN ., DR JIM Mcdonnell Attending Unavailable ALLAN ., DR JIM Mcdonnell Consulting Unavailable AICHHOLZ, BRICKLAYER'S ASSISTANT JAYMIE Primary Care Unavailable THORNE ., JENNY Consulting Unavailable ALLAN ., DR JIM Mcdonnell Admitting Unavailable ALLAN ., DR JIM Mcdonnell Attending Unavailable AICHHOLZ, BRICKLAYER'S ASSISTANT JAYMIE Primary Care Unavailable ALLAN ., DR JIM Mcdonnell Attending Unavailable ALLAN ., DR JIM Mcdonnell Consulting Unavailable ALLAN ., DR JIM Mcdonnell Admitting Unavailable AICHHOLZ, BRICKLAYER'S ASSISTANT JAYMIE Primary Care Unavailable LAKSHMIPATHY ., NARENDRANEDWAR Consulting Evelyn vailable NILL ., DR MASSEY Consulting Unavailable NILL ., DR MASSEY Admitting Unavailable AICHHOLZ, BRICKLAYER'S ASSISTANT JAYMIE Primary Care Unavailable NILL ., DR MASSEY Attending Unavailable AICHHOLZ, BRICKLAYER'S ASSISTANT JAYMIE Admitting Unavailable AICHHOLZ, BRICKLAYER'S ASSISTANT JAYMIE Attending Unavailable AICHHOLZ, BRICKLAYER'S ASSISTANT JAYMIE Consulting Unavailable AICHHOLZ, BRICKLAYER'S ASSISTANT JAYMIE Primary Care Unavailable CHET, DR MELISSA Hernandez Consulting Unavailable AICHHOLZ, BRICKLAYER'S ASSISTANT JAYMIE Admitting Unavailable AICHHOLZ, BRICKLAYER'S ASSISTANT JAYMIE Attending Unavailable AICHHOLZ, BRICKLAYER'S ASSISTANT JAYMIE Consulting Unavailable AICHHOLZ, BRICKLAYER'S ASSISTANT JAYMIE Primary Care Unavailable LORI FROST Consulting Unavailable ALLAN ., DR JIM Mcdonnell Attending Unavailable ALLAN ., DR JIM Mcdonnell Admitting Unavailable AICHHOLZ, BRICKLAYER'S ASSISTANT JAYMIE Primary Care Unavailable AICHHOLZ, BRICKLAYER'S ASSISTANT JAYMIE Primary Care Unavailable SAMSA ., MAGDALENA Admitting Unavailable SAMSA ., MAGDALENA Attending Unavailable SAMSA ., MAGDALENA Consulting Unavailable ALLAN ., DR JIM Mcdonnell Attending Unavailable JERRELL ., DR JIM Mcdonnell Admitting Unavailable ALLAN ., DR JIM Mcdonnell Consulting Unavailable ALBAN, MEREDITH HOLCOMB Primary Care Unavailable AICHARI, MEREDITH JAYMIE Admitting Unavailable AICHHOLHomer, MEREDITH JAYMIE Attending Unavailable AICHHOLZ, MEREDITH COXA Consulting Unavailable AICHHOLZ, BRICKLAYER'S ASSISTANT JAYMIE Primary Care Unavailable Aichholz HEALTHCARE ECONOMICS CONSULTANT, Jayime Unavailable Shaikh Marquez MD Primary Care Provider [phone] Alphonse Damian Attending Unavailab le Alphonse Damian Admitting Unavailab le Jaymie Phoenix J Primary Care Unavailable ALBAN, JAYMIE Attending Unavailable ALBAN, JAYMIE Attending Unavailable ALBAN, JAYMIE Attending Unavailable ALBAN, JAYMIE Attending Unavailable Allergies Allergy Classification Reported Allergen(s) Allergy Type Date of Onset Reaction(s) Facility (9 sources) Penicillins; Translations: [penicillins] Drug allergy 4 Dyspnea (finding), Weal (disorder), Hives, Shortness of breath, Swelling [facility] (2 sources) predniSONE; Translations: [prednisone] Drug Allergy Dyspnea (finding) [facility] (1 source) prednisoLONE Drug Allergy [facility] Repository (5 sources) Prednisone Propensity to adverse reactions 3 Itching [facility] Medications Current Medications Medication Drug Class(es) Dates Sig (Normalized) Sig (Original) [id number] 200 actuat albuterol 0.09 mg/actuat metered dose [...] Active Start: 01-22-2022 [facility] meloxicam 15 mg Tab [...] Start: 01-22-2022 take 1 capsule by mo [facility] twice daily pregabalin 100 mg Cap [...] 2 Episodic Other aftercare (1 source) Other nursing home (current) drug therapy; Translations: [OTH LOG CHECK SCALER CURRENT DRUG THERAPY] Onset: 3 Episodic Other [...] 07-08-2022 02 MODE ROOM AIR Normal [facility] Comment on above: Performed By: #### A BG ####[facility] [address] [place] [id number]. Phani CAMPBELLS TEST Positive Normal [facility] Comment on above: Performed By: #### A BG ####[facility] [address]xc[address] [place] [id number] El Base excess Calc (Bld) [Moles/Vol] 1.4 mmol/L Normal -2.0-2.0 [facility] Comment on above: Performed By: #### A BG ####[facility] [address] [place] [address]Dr. Phani El BIPAP PRESSURE Normal [facility] Comment on above: Performed By: #### A BG ####[facility] [address] [place] [address]Dr. Phani El CPAP Normal [facility] Comment on above: Performed By: #### A BG ####[facility] [address] [place] [address]Dr. Phani El FIO2 Normal [facility] Comment on above: Performed By: #### A BG ####[facility] [address] [place], [place] [address]Dr. Phani El HCO3 (Bld) [Moles/Vol] 26.2 mmol/L Critically high 22.0-26.0 [facility] Comment on above: Performed By: #### A BG ####[facility] [address] [place], [place] [address]Dr. Phani El LPM Normal [facility] Comment on above: Performed By: #### A BG ####[facility] [address] [place], [place] [address]Dr. Phani El MINUTE VOLUME Normal [facility] Comment on above: Performed By: #### A BG ####[facility] [address] [place], [place] [address]Dr. Phani El Oxygen (Bld) [Partial pressure] 56.1 mm[Hg] Critically low 80.0-100.0 [facility] Comment on above: Performed By: #### A BG ####[facility] Hil[address] [place], [place] [address]Dr. Phani El Oxygen saturation in Blood 92.0 % Critically low 95.0-100.0 [facility] Comment on above: Performed By: #### A BG ####[facility] [address] [place], [place] [address]Dr. Phani El PCO2 42.6 mmHg Normal 35.0-45.0 [facility] Comment on above: Performed By: #### A BG ####[facility] [address] [place] [address]Dr. Phani El PEEP [facility] Comment on above: Performed By: #### A BG ####[facility] [address] [place] [address]Dr. Phani El pH (Bld) 7.398 [pH] Normal 7.350-7.450 [facility] Comment on above: Performed By: #### A BG ####[facility] [address]xd[address] [place] [address]Dr. Phani El PIP [facility] Comment on above: Performed By: #### A BG ####[facility] [address] [place] [address]Dr. Phani El PS [facility] Comment on above: Performed By: #### A BG ####[facility] [address]wr[address] [place] [address]Dr. Phani El PUNCTURE SITE RR [facility] Comment on above: Performed By: #### A BG ####[facility] [address] [place] [address]Dr. Phani El RATE [facility] Comment on above: Performed By: #### A BG ####[facility] [address] [place] [address]Dr. Phani El VENT MODE [facility] Comment on above: Performed By: #### A BG ####[facility] X[address] [place], [place] [address]Dr. Phani El VT [facility] Comment on above: Performed By: #### A BG ####[facility] [address] [place], [place] [address]Dr. Phani El ECHOCARDIO M/2D COMPLETEon 0 07-08-2022 ECHOCARDIO M/2D COMPLETE Patient: FRANKY SRINIVASAN I. Exam Date: 07/08/2022 : 1965 Gender:F Ordering : DR. MAGDALENA DOWNING . Admission #: [id number] Family : BRICKLAYER'S ASSISTANT JAYMIE RAHMANHARI BRICKLAYER'S ASSISTANT Order #: [id number] CLICK HERE TO VIEW EXAM ECHOCARDIOGRAM REPORT [...] 4.43 mm[Hg] Right Atrium Dictated by: Johnathan Garica M.D. on 07/08/2022 at 18:06 Approved by: Johnathan Garcia M.D. on 07/08/2022 at 18:14 Normal [facility] CT LUNG CANCER SCREENINGon 0 05-29-2022 [...] by: MELISSA ROSENBERG Date: 2022-05-29 09:36 Normal [facility] CBC AUTO DIFFon 05-05-2022 BASO # 0.1 103/ul Normal 0.0-0.1 [facility] Comment on above: Performed By: #### C BC #### [facility] [address] [place] [address] Dr. Phani El Basophils/100 WBC (Bld) 0.8 % Normal 0.2-2.0 [facility] Comment on above: Performed By: #### C BC #### [facility] [address] [place] [address] Dr. Phani El EO # 0.1 103/ul Normal 0.0-0.7 [facility] Comment on above: Performed By: #### C BC #### [facility] [address] [place] [address] Dr. Phani El Eosinophils/100 WBC (Bld) 2.0 % Normal 0.9-7.0 [facility] Comment on above: Performed By: #### C BC #### [facility] [address] [place] [address] Dr. Phani El Erythrocyte distribution width (RBC) [Ratio] 14.0 % Normal 11.0-15.0 [facility] Comment on above: Performed By: #### C BC #### [facility] [address] [place] [address] Dr. Phani El Hematocrit (Bld) [Volume fraction] 48.7 % Critically high 36.0-48.0 [facility] Comment on above: Performed By: #### C BC #### [facility] [address] [place] [address] Dr. Phani El Hemoglobin (Bld) [Mass/Vol] 15.9 g/dL Normal 12.0-16.0 [facility] Comment on above: Performed By: #### C BC #### [facility] [address] [place] [address] Dr. Phani El IG # 0.05 10e3/ul Critically high 0.00-0.03 [facility] Comment on above: Performed By: #### C BC #### [facility] [address] [place] [address] Dr. Phani El IG % 0.8 % Critically high 0.0-0.5 [facility] Comment on above: Performed By: #### C BC #### [facility] [address] [place] [address] Dr. Phani El LYMPH # 1.9 103/ul Normal 1.2-3.8 [facility] Comment on above: Performed By: #### C BC #### [facility] [address] [place] [address] Dr. Phani El Lymphocytes/100 WBC (Bld) 30.1 % Normal 20.5-60.0 [facility] Comment on above: Performed By: #### C BC #### [facility] [address] [place] [address] Dr. Phani El MANUAL DIFF REQ NO Normal [facility] Comment on above: Performed By: #### C BC #### [facility] [address] [place] [address] Dr. Phani El MCH (RBC) [Entitic mass] 32.9 pg Normal 26.7-34.0 [facility] Comment on above: Performed By: #### C BC #### [facility] [address] [place] [address] Dr. Phani El MCHC (RBC) [Mass/Vol] 32.6 g/dL Normal 29.9-35.2 [facility] Comment on above: Performed By: #### C BC #### [facility] [address] [place] [address] Dr. Phani El MCV (RBC) [Entitic vol] 100.8 fL Critically high 81.0-99.0 [facility] Comment on above: Performed By: #### C BC #### [facility] [address] [place] [address] Dr. Phani El MONO # 0.5 103/ul Normal 0.3-0.8 [facility] Comment on above: Performed By: #### C BC #### [facility] [address] [place] [address] Dr. Phani El Monocytes/100 WBC (Bld) 7.2 % Normal 1.7-12.0 [facility] Comment on above: Performed By: #### C BC #### [facility] [address] [place] [address] Dr. Phani El NEUT # 3.8 103/ul Normal 1.4-6.5 [facility] Comment on above: Performed By: #### C BC #### [facility] [address] [place] [address] Dr. Phani El Neutrophils/100 WBC (Bld) 59.1 % Normal 43.0-75.0 [facility] Comment on above: Performed By: #### C BC #### [facility] [address] [place] [address] Dr. Phani El Platelet mean volume (Bld) [Entitic vol] 11.0 fL Normal 9.5-13.5 [facility] Comment on above: Performed By: #### C BC #### [facility] [address] [place] [address] Dr. Phani El PLT 167 103/ul Normal 150-450 [facility] Comment on above: Performed By: #### C BC #### [facility] [address] [place] [address] [address] Phani El RBC 4.83 106/ul Normal 4.20-5.40 [facility] Comment on above: Performed By: #### C BC #### [facility] [address] [place] [address] [address] Phani El WBC 6.4 103/ul Normal 4.0-11.0 [facility] Comment on above: Performed By: #### C BC #### [facility] [address] [place] [address] [address] Phani El GLYCOHEMOGLOBIN A1Con 2022 ADA RECOMMENDATION SEE BELOW Normal [facility] Comment on above: Result Comment: ADA RECOMMENDED LIMIT 4.0 - 6.0 ADA THERAPEUTIC TARGET < 7.0 ACTION SUGGESTED > 7.0 Performed By: #### A 1C ####[facility] [address] [place] [address]Dr. Phani El Glucose [Mass/Vol] 114 mg/dL Normal [facility] Comment on above: Performed By: #### A 1C ####[facility] [address] [place] [address]Dr. Phani El HbA1c (Bld) [Mass fraction] 5.6 % Normal 4.5-6.2 [facility] Comment on above: Performed By: #### A 1C ####[facility] [address] [place] [address]Dr. Phani El LIPID PROFILEon 05-05-2022 CHOL-HDL RATIO NORM SEE BELOW Normal [facility] Comment on above: Result Comment: 3.3 - 4.4 LOW RISK 4.4 - 7.1 AVERAGE RISK 7.1 - 11.0 MODERATE RISK >11.0 HIGH RISK Performed By: #### C MP, LIPID #### [facility] [address] [place] [address] [address] Phani El Cholesterol [Mass/Vol] 178 mg/dL Normal <=200 [facility] Comment on above: Performed By: #### C MP, LIPID #### [facility] [address] [place] [address] [address] Phani El Cholesterol in HDL [Mass/Vol] 54 mg/dL Normal 40-60 [facility] Comment on above: Performed By: #### C MP, LIPID #### [facility] [address] [place] [address] [address] Phani El Cholesterol in LDL [Mass/Vol] 86.6 mg/dL Normal [facility] Comment on above: Performed By: #### C MP, LIPID #### [facility] [address] [place] [address] [address] Phani El Cholesterol.total/Ch olesterol in HDL [Mass ratio] 3.3 {ratio} Normal [facility] Comment on above: Performed By: #### C MP, LIPID #### [facility] [address] [place] [address] Dr. Phani El HDL NORMAL > or = 60 mg/dl - LO W CARDIOVASCULAR RISK <40 mg/dl - HIGH CARDIOVASCULAR RISK Normal [facility] Comment on above: Performed By: #### C MP, LIPID #### [facility] [address] [place] [address] [address] Phani El LDL CALC NORMAL SEE BELOW Normal [facility] Comment on above: Result Comment: <100 mg/dl OPTIMAL 100 - 129 mg/dl NEAR OR ABOVE OPTIMAL 130 - 159 mg/dl BORDERLINE HIGH 160 - 189 mg/dl HIGH >190 mg/dl VERY HIGH Performed By: #### C MP, LIPID #### [facility] [address] [place] [address] [address] Phani El Triglyceride [Mass/Vol] 187 mg/dL Critically high <=150 [facility] Comment on above: Performed By: #### C MP, LIPID #### [facility] [address] [place] [address] Dr. Phani El VLDL CALC 37.4 mg/dL Normal [facility] Comment on above: Performed By: #### C MP, LIPID #### [facility] [address] [address] [address] Phani El PROF 14(COMP METB)on 023 Albumin [Mass/Vol] 3.6 g/dL Normal 3.4-5.0 [facility] Comment on above: Performed By: #### C MP, LIPID ####[facility] [address] [place] [address]Dr. Phani El Albumin/Globulin [Mass ratio] 1.1 {ratio} Normal [facility] Comment on above: Performed By: #### C MP, LIPID ####[facility] [address] [place] [address]Dr. Phani El ALP [Catalytic activity/Vol] 91 U/L Normal 46-116 [facility] Comment on above: Performed By: #### C MP, LIPID ####[facility] [address] [place] [address]Dr. Phani El ALT [Catalytic activity/Vol] 34 U/L Normal 14-59 [facility] Comment on above: Performed By: #### C MP, LIPID ####[facility] [address] [place] [address]Dr. Phani El Anion gap [Moles/Vol] 11.6 mmol/L Normal [facility] Comment on above: Performed By: #### C MP, LIPID ####[facility] [address] [place] [address]Dr. Phani El AST [Catalytic activity/Vol] 18 U/L Normal 15-37 [facility] Comment on above: Performed By: #### C MP, LIPID ####[facility] [address] [place] [address]Dr. Phani El Bilirubin [Mass/Vol] 0.6 mg/dL Normal 0.2-1.0 [facility] Comment on above: Performed By: #### C MP, LIPID ####[facility] [address] [place] [address]Dr. Phani El Calcium [Mass/Vol] 9.2 mg/dL Normal 8.5-10.1 [facility] Comment on above: Performed By: #### C MP, LIPID ####[facility] [address] [place] [address]Dr. Phani El Chloride [Moles/Vol] 106 mmol/L Normal 98-107 [facility] Comment on above: Performed By: #### C MP, LIPID ####[facility] [address] [place] [address]Dr. Phani El CO2 [Moles/Vol] 32.3 mmol/L Critically high 21.0-32.0 [facility] Comment on above: Performed By: #### C MP, LIPID ####[facility] [address] [place] [address]Dr. Phani El Creatinine [Mass/Vol] 1.04 mg/dL Critically high 0.55-1.02 [facility] Comment on above: Performed By: #### C MP, LIPID ####[facility] [address] [place] [address]Dr. Phani El EGFR-AF MALTESE >60 Normal >=60 [facility] Comment on above: Performed By: #### C MP, LIPID ####[facility] [address] [place] [address]Dr. Phani El EGFR-NON AF MALTESE 54 mL/min/1.73m2 Critically low >=60 [facility] Comment on above: Performed By: #### C MP, LIPID ####[facility] [address] [place] [address]Dr. Phani El Globulin (S) [Mass/Vol] 3.4 g/dL Normal [facility] Comment on above: Performed By: #### C MP, LIPID ####[facility] [address] [place] [address]Dr. Phani El Glucose [Mass/Vol] 124 mg/dL Critically high 74-106 [facility] Comment on above: Performed By: #### C MP, LIPID ####[facility] [address] [place] [address]Dr. Phani El Potassium [Moles/Vol] 3.9 mmol/L Normal 3.5-5.1 [facility] Comment on above: Performed By: #### C MP, LIPID ####[facility] [address] [place] [id number]. Phani El Protein [Mass/Vol] 7.0 g/dL Normal 6.4-8.2 [facility] Comment on above: Performed By: #### C MP, LIPID ####[facility] [address] [place], [place] [address]Mc. Phani El Sodium [Moles/Vol] 146 mmol/L Critically high 136-145 [facility] Comment on above: Performed By: #### C MP, LIPID ####[facility] [address] [place] [id number]. Phani El Urea nitrogen [Mass/Vol] 14.0 mg/dL Normal 7.0-18.0 [facility] Comment on above: Performed By: #### C MP, LIPID ####[facility] [address] [place] [id number]. Phani El Urea nitrogen/Creatinine [Mass ratio] 13.5 mg/mg Normal [facility] Comment on above: Performed By: #### C MP, LIPID ####[facility] [address] [place] [id number]. Phani El VITAMIN B12on 05-05-2022 Cobalamin (Vitamin B12) [Mass/Vol] 321.0 pg/mL Normal 193.0-986.0 [facility] Comment on above: Performed By: #### V ITAD, VITB12 #### [facility] [address] [place] [address] Dr. Phani El VITAMIN D 25 OHon 05-05-2022 VIT D 25-OH 58.7 ng/mL Normal [facility] Comment on above: Performed By: #### V ITAD, VITB12 #### [facility] [address] [place] [address] Dr. Phani El VIT D RANGES SEE BELOW Normal [facility] Comment on above: Result Comment: <20 ng/mL Vit D deficient 20 - <30 ng/mL Vit D insufficient 30 - 100 ng/mL Vit D sufficient >100 ng/mL Potential Toxicity Performed By: #### V ITAD, VITB12 #### [facility] [address] [address] [address] Phani El XR CHEST 2 Von [...] LORI FROST Date: 2022-05-05 10:05 Normal [facility] Ambulatory Visit Summaryon 0 03-24-2022 [...] Vitamin B12 deficiency Vitamin D deficiency Normal [facility] General Surgery Office/Clini c Noteon [...] inactivated - Not Given Patient Refuses Normal [facility] Comment on above: Result Comment: Elec tronically Signed By: CAMILLA AMADOR, Bryson Steinberg\Date and Time Signed: 03/24/22 13:12 EST Reminderson 03-24-2022 Reminders - From: Kristine Harrison LPN To: N - Clinical; Sent: 03/24/2022 13:05:34 EST Show up: 01/26/2032 07:00:00 EST Subject: colonoscopy recall Due Date/Time: 02/26/2032 07:00:00 EST Reminder/Recall Patient is due for screening colonoscopy 02/26/2032. Normal [facility] Covid-19 PCR (CVDTBH)on 02-10 SARS-CoV-2 (COVID-19) RNA MARISOL+probe Ql (Unsp spec) Detected Abnormal NOT DETECTED [facility] Comment on above: Result Comment: This test is not yet approved or cleared by the [place] FDA. When there are no FDA-approved or cleared tests available, and other criteria are met, FDA can make tests available under an emergency access mechanism called an Emergency Use Authorization (EUA). The EUA for this test is supported by the [employer] Operator of Health and Human Service's (HHS's) [...] used). Performed By: #### C VDTBH #### [facility] [address] [address] [address] Phani El INFLUENZA A AND B AGon 03-10 [facility] SEE BELOW Normal [facility] Comment on above: Result Comment: Nega tive for Flu A protein angiten. Infection due to Flu A cannot be ruled out. Flu A angiten in the sample may be below the detection limit of the test. Performed By: #### I NFLUAB ####[facility] [address] [address]Dr[address] Phani El INFLUBNEGH SEE BELOW Normal [facility] Comment on above: Result Comment: Nega tive for Flu B protein antigen. Infection due to Flu B cannot be ruled out. Flu B antigen in the sample may be below the detection limit of the test. Performed By: #### I NFLUAB ####[facility] [address] [address]DrCindy El INFLUENZA A AG Negative Normal NEGATIVE SEE COMMENT [facility] Comment on above: Performed By: #### I NFLUAB ####[facility] [address] [place], [place] [address]DrCindy El INFLUENZA B AG Negative Normal NEGATIVE SEE COMMENT [facility] Comment on above: Performed By: #### I NFLUAB ####[facility] [address] [place], [place] [address]DrCindy El [facility] 02-09 SARS-CoV-2 (COVID-19) RNA MARISOL+probe Ql (Unsp spec) Detected Abnormal NOT DETECTED [facility] Comment on above: Result Comment: This test is not yet approved or cleared by the [place] FDA. When there are no FDA-approved or cleared tests available, and other criteria are met, FDA can make tests available under an emergency access mechanism called an Emergency Use Authorization (EUA). The EUA for this test is supported by the [employer] Operator of Health and Human Service's declaration [...] used). Performed By: #### C VDTB #### [facility] [address] [place] [address] Dr. Phani El Pathology Noteon 02-27-2022 Pathology Note [id number] 0CD:127 Normal [facility] Outside Colonoscopyon 2022 Outside Colonoscopy [id number] 0CD:127 Normal [facility] Reminderson 02-26-2022 Reminders - From: Kristine Harrison LPN To: Kristine Harrison LPN; Sent: 02/26/2022 11:14:25 EST Show up: 05/18/2022 07:00:00 EDT Subject: Ambulatory Reminder Due Date/Time: 05/27/2022 07:00:00 EDT Reminder/Recall log in to extra lap top in [place] to keep account active Normal [facility] Lab Reportson 02-23-2022 Lab Reports [id number] 0CD:127 Normal [facility] Covid-19 PCR (CVDTB)on 02-08 SARS-CoV-2 (COVID-19) RNA MARISOL+probe Ql (Unsp spec) Not detected Normal NOT DETECTED [facility] Comment on above: Result Comment: This test is not yet approved or cleared by the [place] FDA. When there are no FDA-approved or cleared tests available, and other criteria are met, FDA can make tests available under an emergency access mechanism called an Emergency Use Authorization (EUA). The EUA for this test is supported by the [employer] Operator of Health and Human Service's (HHS's) [...] consistent with SARS-CoV-2. Performed By: #### C [facility] ####[address] [place], [place] [address]Ad. Phani El Pre-Certification Formon Pre-Certification Form [id number]. 00CD:127 Normal [facility] Consent for Procedure/Surger yon 02-05-2022 Consent for Procedure/Surgery [id number] 0CD:127 Normal [facility] Formson 02-05-2022 Forms [id number] 0CD:127 Normal [facility] Physician Referralon 022 Physician Referral [id number] 0CD:127 Normal [facility] MRI Knee w/o Lefton 12-26-19 [...] by Jason Sanchez on 12/25/[address] 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 Vital Signs Date Time Vital Sign Value Performing Clinician Facility 03-25-2023 13:130500 Body height 165.1 cm Jaymie Phoenix NP Work Phone: [facility] 03-25-2023 13:13-0500 Body mass index (BMI) [Ratio] 42.9 kg/m2 Jaymie Phoenix NP Work Phone: [facility] 03-25-2023 13:13-0500 Body temperature 97.5 [degF] Jaymie Alban DOWD Work Phone: [facility] 03-25-2023 13:13-0500 Body weight 116.94 kg Jaymie Phoenix NP Work Phone: [facility] 03-25-2023 13:13-0500 Diastolic blood pressure 68 mm[Hg] Jaymie Maddyhholz HEALTHCARE ECONOMICS CONSULTANT Work Phone: [facility] 03-25-2023 13:13-0500 Heart rate 71 /min Jaymie Aichholz HEALTHCARE ECONOMICS CONSULTANT Work Phone: [facility] 03-25-2023 13:13-0500 Respiratory rate 20 /min Jaymie Aichholz HEALTHCARE ECONOMICS CONSULTANT Work Phone: [facility] 03-25-2023 13:13-0500 SaO2% (BldA) [Mass fraction] 95 % Jaymie Aichholz HEALTHCARE ECONOMICS CONSULTANT Work Phone: [facility] 03-25-2023 13:13-0500 Systolic blood pressure 108 mm[Hg] Jaymie Aichholz HEALTHCARE ECONOMICS CONSULTANT Work Phone: [facility] 03-16-2023 13:35-0500 Body height 165.1 cm Jaymie Aichholz HEALTHCARE ECONOMICS CONSULTANT Work Phone: [facility] 03-16-2023 13:35-0500 Body mass index (BMI) [Ratio] 41.6 kg/m2 Jaymie Aichholz HEALTHCARE ECONOMICS CONSULTANT Work Phone: [facility] 03-16-2023 13:35-0500 Body temperature 98.4 [degF] Jaymie Maddyhholz HEALTHCARE ECONOMICS CONSULTANT Work Phone: [facility] 03-16-2023 13:35-0500 Body weight 113.4 kg Jaymie Maddyhholz HEALTHCARE ECONOMICS CONSULTANT Work Phone: [facility] 03-16-2023 13:35-0500 Diastolic blood pressure 72 mm[Hg] Jaymie Aichholz HEALTHCARE ECONOMICS CONSULTANT Work Phone: [facility] 03-16-2023 13:35-0500 Heart rate 77 /min Jaymie Aichholz HEALTHCARE ECONOMICS CONSULTANT Work Phone: [facility] 03-16-2023 13:35-0500 Respiratory rate 18 /min Jaymie Aichholz HEALTHCARE ECONOMICS CONSULTANT Work Phone: [facility] 03-16-2023 13:35-0500 SaO2% (BldA) [Mass fraction] 95 % Jaymie Phoenix HEALTHCARE ECONOMICS CONSULTANT Work Phone: [facility] 03-16-2023 13:35-0500 Systolic blood pressure 112 mm[Hg] Jaymie Phoenix HEALTHCARE ECONOMICS CONSULTANT Work Phone: [facility] 02-03-2022 13:27-0500 Blood Pressure Location Bryson NILL [facility] 02-03-2022 13:27-0500 Diastolic blood pressure 80 mm[Hg] Bryson NILL [facility] 02-03-2022 13:27-0500 Heart rate 72 /min Bryson NILL [facility] [place] 02-03-2022 13:27-0500 Respiratory rate 16 /min Bryson NILL [facility] [place] 02-03-2022 13:27-0500 Systolic blood pressure 126 mm[Hg] Bryson NILL [facility] [place] Encounters Encounter Date Encounter Type Care Provider Facility Start: 04-26-2023 End: 04-26-2023 ambulatory JAYMIE AICHHOLZ Not Available Start: 03-25-2023 End: 03-25-2023 ambulatory JAYMIE AICHHOLZ Not Available Start: 03-25-2023 Bamboo flowsheet Jaymie Phoenix HEALTHCARE ECONOMICS CONSULTANT Work Phone: [facility] Start: 03-25-2023 Bamboo flowsheet Jaymie Alban HEALTHCARE ECONOMICS CONSULTANT Work Phone: [facility] Start: 03-25-2023 End: 03-25-2023 Office outpatient visit 25 minutes Jaymie Phoenix HEALTHCARE ECONOMICS CONSULTANT Work Phone: [facility] Comment on above: Edema of right lower extremity (Primary Dx); BMI 40.0-44.9, adult (CMS/HCC); Shortness of breath; COPD mixed type (CMS/HCC); Primary hypertension (CMS/HCC); Bilateral lower extremity edema Start: 03-16-2023 End: 03-16-2023 ambulatory JAYMIE ALBAN Not Available Start: 03-16-2023 End: 03-16-2023 Office outpatient visit 25 minutes Jaymie Phoenix HEALTHCARE ECONOMICS CONSULTANT Work Phone: [facility] Comment on above: COPD mixed type (CMS /HCC) (Primary Dx); Tobacco dependence; BMI 40.0-44.9, adult (CMS/HCC); Body mass index [BMI] 40.0-44.9, adult (Z68.41); Primary hypertension (CMS/HCC); Bilateral lower extremity edema Start: 01-26-2023 End: 01-26-2023 ambulatory JAYMIE ALBAN Not Available Start: 01-19-2023 ambulatory Alphonse Patton acility:[facility] Start: 07-08-2022 ambulatory MEREDITH PHOENIX Facil ity:[facility]1 Start: 05-29-2022 End: 05-30-2022 ambulatory MEREDITH PHOENIX Facility:[facility] Start: 05-05-2022 End: 05-06-2022 ambulatory MEREDITH PHOENIX Facility:[facility] Start: 04-30-2022 End: 05-01-[address] JIM ALLAN . Facility:[facility] Start: 03-31-2022 End: 03-31-[address] JIM ALLAN . Facility:[facility] Start: 03-27-[address] JIM ALLAN . Faci lity:[facility]1 Start: 03-24-2022 End: 03-25-2022 ambulatory Bryson SAMSPON Facility:[facility] Start: 03-17-2022 ambulatory Bryson R CAMILLA Facility :[facility] Start: 03-10-2022 End: 03-10-2022 ambulatory MEREDITH PHOENIX Facility:[facility] Start: 03-02-2022 Encounter for preprocedural laboratory examination DR JIM ALLAN . [facility] Start: 02-28-2022 End: 03-01-2022 Encounter for preprocedural laboratory examination MEREDITH PHOENIX Facility:[facility] Start: 02-28-2022 End: 03-01-2022 ambulatory BRICKLAYER'S ASSISTANT JAYMIE PHOENIX Facility:[facility]1 Start: 02-25-2022 End: 02-26-2022 ambulatory Bryson SAMPSON Facility:CD:[id number] Start: 02-21-2022 End: 02-22-[address] [...] Performing Clinician Start: 03-25-2023 Mammography Jaymie kohler HEALTHCARE ECONOMICS CONSULTANT Work Phone: Start: 02-25-2022 Colonoscopy Jaymie kohler HEALTHCARE ECONOMICS CONSULTANT Work Phone: section Bryson Saldaña Ligation of fallopian tube Leslie SAMPSON Repair of meniscus Bryson Ac DANTE Total abdominal hysterectomy with bilateral salpingo-oophorectomy Bryson SAMPSON Plan of Treatment Date Care Activity Detail Author Start: 02-26-2032 Screening for malign ant neoplasm of colon [facility] Start: 12-26-2024 Screening for malign ant neoplasm of colon FIT-DNA [facility] Start: 03-25-2024 Screening for malign ant neoplasm of breast Mammogram [facility] Start: 08-08-2023 Influenza vaccination Influenza Vacc ine (#1) [facility] Comment on above: Postponed from 10/09 (Patient Refused) Start: 04-06-2023 End: 04-06-2023 Patient encounter procedure 04/06/2023 1:40 PM EST Office Visit [facility] [address] [place] [phone] Jaymie Phoenix, NILE [address] [place] [address] [facility] Start: 03-25-2023 End: 03-25-2024 CBC W Auto Differential panel - Blood CBC and differential Lab Routine Edema of right lower extremity Expected: 03/25/2023 (Approximate), Expires: 03/25/2024 [facility] Comment on above: Expected: 03/25/2023 (Approximate), Expires: 03/25/2024 Start: 03-25-2023 End: 03-25-2024 Comprehensive metabolic 2000 panel - Serum or Plasma Comprehensive metabolic panel Lab Routine Edema of right lower extremity Expected: 03/25/2023 (Approximate), Expires: 03/25/2024 [facility] Comment on above: Expected: 03/25/2023 (Approximate), Expires: 03/25/2024 Start: 03-25-2023 End: 03-25-2024 Fibrin D-dimer FEU [Mass/volume] in Platelet poor plasma D-dimer, quantitative Lab Routine Edema of right lower extremity Expected: 03/25/2023 (Approximate), Expires: 03/25/2024 [facility] Comment on above: Expected: 03/25/2023 (Approximate), Expires: 03/25/2024 Start: 03-25-2023 End: 03-25-2024 US.doppler Lower extremity vein - right Vascular US lower extremity venous duplex right Imaging STAT Edema of right lower extremity Expected: 03/25/2023, Expires: 03/25/2024 [facility] Work Phone: Comment on above: Expected: 03/25/2023 , Expires: 03/25/2024 Start: 03-25-2023 End: 03-25-2024 XR Chest 2 Views XR chest 2 views Imaging Routine Edema of right lower extremity Shortness of breath Expected: 03/25/2023, Expires: 03/25/2024 [facility] Comment on above: Expected: 03/25/2023 , Expires: 03/25/2024 Start: 08-16-1993 Screening for malign ant neoplasm of cervix HPV/Cotest [facility] Start: 08-16-1984 Screening for malign ant neoplasm of cervix Pap Smear [facility] Start: 1965 Medicare Annual Well ness (AWV) Medicare Annual Wellness (AWV) [facility] Start: 1965 Screening for malign ant neoplasm of colon [facility] Immunizations Immunization Date Immunization Notes Care Provider Fa jack NEGATED: Highlighted row has not occurred!02-03-2022 influenza virus vaccine, unspecified formulation Bryson RACHELPiper [facility] [place] Payers Date Payer Category Payer Self-pay 2021 Medicare AETNA MEDICARE A DVANTAGE AETNA MEDICARE REPLACEMENT [id number] 2021-Present [address] [place] [address] [id number] 1965 Unknown [id number] 2.16.840.1.417163.3.579.2. 727 1965 Unknown [id number] 2.16.840.1.219429.3.579.2. 72 1963 Unknown [id number] 2.16.840.1.251604.3.579.2. 72 1963 Unknown [id number] 2.16.840.1.166941.3.579.2 72 1963 Unknown [id number] 2.16.840.1.897129.3.579.2. 72 1963 Unknown [id number] 2.16.840.1.048465.3.579.2 59 1963 Unknown [id number] 2.16.840.1.387808.3.579.2 59 1963 Unknown [id number] 2.16.840.1.793703.3.579.2 59 1963 Unknown [id number] 2.16.840.1.676074.3.579.2 59 1963 Unknown [id number] 2.16.840.1.847601.3.579.2 59 1963 Unknown [id number] 2.16.840.1.970446.3.579.2 1963 Unknown [id number] 2.16.840.1.910469.3.579.2 59 1963 Unknown [id number] 2.16.840.1.976255.3.579.2 59 1963 Unknown [id number] 2.16.840.1.861878.3.579.2 59 1963 Unknown [id number] 2.16.840.1.152039.3.579.2 59 1963 Unknown [id number] 2.16.840.1.355893.3.579.2 59 1963 Unknown [id number] 2.16.840.1.648779.3.579.2 59 1963 Unknown [id number] 2.16.840.1.990614.3.579.2. 593 1965 Unknown [id number] 2.16.840.1.847411.3.579.2. 593 1963 Unknown [id number] 2.16.840.1.855132.3.579.2. 593 1963 Unknown [id number] 2.16.840.1.385252.3.579.2. 593 1963 Unknown [id number] 2.16.840.1.045510.3.579.2. 593 1963 Unknown [id number] 2.16.840.1.870947.3.579.2. 593 1965 Unknown [id number] 2.16.840.1.949410.3.579.2. 593 1963 Unknown [id number] 2.16.840.1.188408.3.579.2. 59 1963 Unknown [id number] 2.16.840.1.127204.3.579.2. 593 1963 Unknown [id number] 2.16.840.1.894098.3.579.2. 593 1963 Unknown [id number] 2.16.840.1.868042.3.579.2. 1259 1963 Unknown [id number] 2.16840.1.691816.3.579.2. 1259 1963 Unknown [id number] 2.16.840.1.673002.3.579.2. 1259 1959 Private Health Insurance [id number] Unknown [id number] 2.16840.1.607519.3.579.2. 531 Social History Date Type Detail Facility Start: 02-03-2022 Tobacco smoking status Heavy t obacco smoker (finding) [facility] Tobacco smoking status Never [facility] Start: 03-16-2023 End: 03-25-2023 Sex Assigned At Female [facility] Start: 01-26-2023 Tobacco smoking stat us MDIS Smokes tobacco daily [facility] History of [...] (BMI) of 40.0 to 44.9 in adult ([facility]) 01/26/2023 COPD mixed type ([facility]) 01/26/2023 DENIES HX OF BLOOD BORNE DISEASES Depression ([facility]) Fibromyalgia Open wound of left foot 01/26/2023 [...] chest 2 views documented in this encounter [facility] 03-16-2023 History of Present illness Narrative Associated [...] (BMI) of 40.0 to 44.9 in adult ([facility]) 01/26/2023 COPD mixed type ([facility]) 01/26/2023 DENIES HX OF BLOOD BORNE DISEASES Depression ([facility]) Fibromyalgia Open wound of left foot 01/26/2023 Open wound of second toe 01/26/2023 Other acute sinusitis 01/26/2023 Primary hypertension ([facility]) 01/26/2023 Tobacco dependence 01/26/2023 Past Surgical History: [...] 40.0-44.9, adult (Z68.41) documented in this encounter [facility] 04-30-2022 Note CONSULTATION CONSULTATION DATE: [...] office on an as needed basis. [facility] 02-25-2022 Note OPERATIVE NOTE OPERATION [...] good condition. CC: Patient's family physician [facility] 02-06-2022 Note CONSULTATION CONSULTATION DATE: [...] followed up in the clinic thereafter. [facility] 02-03-2022 Note Chief Complaint consultation [...] 30 days Tobacco (more content not included)... [facility] Comment on above: Result Comment: [...] followed up in the clinic thereafter. [facility] 12-09-2021 Note CONSULTATION CONSULTATION DATE: [...] would like to proceed. CC: Jaymie Phoenix, BRICKLAYER'S ASSISTANT [facility] Evaluation + Plan note No data available for this section [facility] [place] Evaluation note Diagnosis COPD mixed type (CMS/HCC)- Primary Tobacco dependence Tobacco use disorder BMI 40.0-44.9, adult (CMS/HCC) Body mass index [BMI] 40.0-44.9, adult (Z68.41) Primary hypertension (CMS/HCC) Unspecified essential hypertension Bilateral lower extremity edema documented in this encounter [facility]* Diagnosis Edema of right lower extremity- Primary BMI 40.0-44.9, adult (CMS/HCC) Shortness of breath COPD mixed type (CMS/HCC) Primary hypertension (CMS/HCC) Unspecified essential hypertension Bilateral lower extremity edema documented in this encounter [facility] Discharge instructions No data available for this section [facility] [place] Progress note No data available for this section [facility] [place] Summary Purpose Family History No Family History [...] Jaymie Phoenix NP [address] [place] [address] Referral ID Status Reason Start Date Expiration Date V isits Requested Visits Authorized [id number] Authorized 03/25/2023 09/21/2023 1 1 Additional Source Comments INFORMATION SOURCE (unrecogn ized section and content) DATE CREATED AUTHOR 12/26/2021 [facility] dical Specialist DATE CREATED AUTHOR AUTHOR'S ORGANIZ ATION 03/25/2022 Meredith Barnwell [facility] DATE CREATED AUTHOR AUTHOR'S ORGANIZ ATION 07/17/2022 [facility] DATE CREATED AUTHOR AUTHOR'S ORGANIZ ATION 04/20/2023 [facility] DATE CREATED AUTHOR AUTHOR'S ORGANIZ ATION 04/27/2023 [facility] dical Specialists EPIC Patient Care team informatio n (unrecognized section and content) Respiratory Scientist Relationship Specialty Start Date End Date Jaymie Phoenix NP [address] [place] [address] Nurse Practitioner Family Medicine 01/26/23 Respiratory Scientist Relationship Specialty Start Date End Date Shaikh Marquez MD [address] [place] [address] PCP - General Internal Medicine 03/25/23 Jaymie Phoenix NP [address] [place] [address] Nurse Practitioner Family Medicine 01/26/23 Respiratory Scientist Relationship Specialty Start Date End Date Shaikh Marquez MD [address] [place] [address] PCP - General Internal Medicine 03/25/23 Jaymie Phoenix NP [address] [place] [address] Nurse Practitioner Family Medicine 01/26/23 FOR RECORDS [...] BE BASED ON THE PRIMARY CLINICAL RECORDS. [facility] [employer] provides no warranty or guarantee of the accuracy or completeness of information in this document.
== END 2023-05-05 14:56 | disposition home or self-care (01) ==
LOC: CARD 14:55
PROVIDERS: PCP Nurse Practitioner; Visit Provider Nurse Practitioner
DX: R60.0 Localized edema (principal); I10 Essential (primary) hypertension; J44.9 Chronic obstructive pulmonary disease, unspecified
CPT/HCPCS: 93306

== ENCOUNTER 2023-05-31 13:34 | Outpatient (OUT) | payer MEDICARE, SELFPAY ==
--- NOTE | 2023-05-31 13:49 | CT_ITS ---
The [address] [address] Patient Name: FRANKY SRINIVASAN MRN: [id number] date: 1965 Sex: F Assigned Patient Location: CT Current Patient Location: CT Accession/Order Number: [id number] Exam Date: 05/31/2023 13:47 Report Date: 05/31/2023 14:46 At the request of: AICHA LLANOS Procedure: CT lung screening low-dose EXAM TYPE: CT lung screening low-dose INDICATION: Current tobacco use, smoking. COMPARISON: LD CT scan of the chest 05/29/2022 TECHNIQUE: Noncontrast, Low dose, helical axial images of the chest were obtained, and thin section, axial MIP, and coronal and sagittal reformats were also submitted from the acquisition scanner under radiologist supervision. Each series was submitted in a lung algorithm. Dose reduction techniques were achieved by using automated exposure control and/or adjustment of mA and/or kV according to patient size and/or use of iterative reconstruction technique. FINDINGS: Please note that this examination was tailored for evaluation of pulmonary nodules, and therefore soft tissue detail is suboptimal. *Images degraded by motion artifact. Heart size within normal limits. Mild coronary artery calcification. No pericardial effusion. No aortic aneurysm. No mediastinal, hilar or axillary lymphadenopathy. Layering debris within the distal trachea and proximal bronchi bilaterally (series 6, image 79) No central endobronchial nodule. Mild diffuse emphysematous change with chronic bronchial wall thickening. Scattered areas of subsegmental atelectasis bilaterally. No pleural effusion or pneumothorax. No gross findings of suspicious pulmonary nodule. Small sliding hiatal hernia with 2 small nonenlarged paraesophageal lymph nodes. Evaluation of the upper abdomen Limited secondary to low dose technique and lack of IV contrast. No acute fracture. IMPRESSION : Lung RADS category 1: Negative. RECOMMENDATIONS: Continued annual LD screening CT scan of the chest. Electronically authenticated by: SALEEM MALDONADO Date: 05/31/2023 14:46
[2023-05-31 14:59] LABS: Anion Gap 12.5; BUN Creatinine Ratio 9.4; Calcium 10.1 mg/dL (8.5-10.1); Carbon Dioxide 32.9 mmol/L (21.0-32.0); Chloride 99 mmol/L (98-107); Estimated GFR (African America 47 (>=60); Estimated GFR (Non-African Ame 39 (>=60); Glucose 102 mg/dL (74-106); Potassium 4.4 mmol/L (3.5-5.1); Sodium 140 mmol/L (136-145)
== END 2023-05-31 13:35 | disposition home or self-care (01) ==
LOC: CT 13:34
PROVIDERS: PCP Nurse Practitioner; Visit Provider Nurse Practitioner
DX: F17.210 Nicotine dependence, cigarettes, uncomplicated (principal); R60.0 Localized edema
CPT/HCPCS: 36415; 71271; 80048

== ENCOUNTER 2023-08-29 19:20 | Emergency (ER) | payer MEDICARE, SELFPAY ==
[2023-08-29 19:24] VITALS: BP 106/72; PULSE 89; TEMP 36.4; O2SAT 94; BMI 32.3
--- OUTSIDE RECORDS SUMMARY | 2023-08-29 19:31 | XMS_ITS | CCD ---
Author Organization [facility] Care Team Providers Care Executive Secretary Name Role Phone JAYMIE PHOENIX Primary Care Physician Bryson SAMPSON Attending Unavailable JAYMIE PHOENIX Referring Unavailabl e NABIL, Bryson Hernandez Attending Unavailable Aichholz, Tracy L Referring Unavailable NILL, Bryson Hernandez Attending Unavailable NILL, Bryson Hernandez Attending Unavailable NILL, Bryson Hernandez Attending Unavailable AICHHOLZ, SALES DEVELOPMENT COORDINATOR JAYMIE Primary Care Unavailable ALLAN ., DR JIM Mcdonnell Attending Unavailable ALLAN ., DR JIM Mcdonnell Admitting Unavailable ALLAN ., DR JIM Mcdonnell Consulting Unavailable ROBINSON ., GLENROY Admitting Unavailable GLENROY WORTHY Attending Unavailable SJ SOLER Consulting Unavailable AICHHOLZ, SALES DEVELOPMENT COORDINATOR JAYMIE Primary Care Unavailable MENDEZ ., MR DEMETRIUS Admitting Unavailable MENDEZ ., MR DEMETRIUS Attending Unavailable AICHHOLZ, SALES DEVELOPMENT COORDINATOR JAYMIE Primary Care Unavailable AICHHOLZ, SALES DEVELOPMENT COORDINATOR JAYMIE Admitting Unavailable JUANITA, DR NADINE Caldwell Consulting Unavailable AICHHOLZ, SALES DEVELOPMENT COORDINATOR JAYMIE Primary Care Unavailable AICHHOLZ, SALES DEVELOPMENT COORDINATOR JAYMIE Attending Unavailable AICHHOLZ, SALES DEVELOPMENT COORDINATOR JAYMIE Consulting Unavailable AICHHOLZ, SALES DEVELOPMENT COORDINATOR JAYMIE Admitting Unavailable JUANITA, DR NADINE Caldwell Consulting Unavailable AICHHOLZ, SALES DEVELOPMENT COORDINATOR JAYMIE Primary Care Unavailable AICHHOLZ, SALES DEVELOPMENT COORDINATOR JAMYIE Attending Unavailable AICHHOLZ, SALES DEVELOPMENT COORDINATOR JAYMIE Consulting Unavailable AICHHOLZ, SALES DEVELOPMENT COORDINATOR JAYMIE Primary Care Unavailable NILL ., DR MASSEY Admitting Unavailable NILL ., DR MASSEY Attending Unavailable NILL ., DR MASSEY Consulting Unavailable SONDRA FELICIANO Consulting Unavailable ROBINSON ., GLENROY Admitting Unavailable ROBINSON ., GLENROY Attending Unavailable ROBINSON .GLENROY Consulting Unavailable AICHHOLZ, SALES DEVELOPMENT COORDINATOR JAYMIE Primary Care Unavailable ALLAN ., DR JIM Mcdonnell Attending Unavailable ALLAN ., DR JIM Mcdonnell Consulting Unavailable ALLAN ., DR JIM Mcdonnell Admitting Unavailable AICHHOLZ, SALES DEVELOPMENT COORDINATOR JAYMIE Primary Care Unavailable MARIA FERNANDA SOSA Consulting Unavailable ALLAN ., DR JIM Mcdonnell Attending Unavailable ALLAN ., DR JIM Mcdonnell Consulting Unavailable ALLAN ., DR JIM Mcdonnell Admitting Unavailable AICHHOLZ, SALES DEVELOPMENT COORDINATOR JAYMIE Primary Care Unavailable ALLAN ., DR JIM Mcdonnell Admitting Unavailable ALLAN ., DR JIM Mcdonnell Attending Unavailable ALLAN ., DR JIM Mcdonnell Consulting Unavailable AICHHOLZ, SALES DEVELOPMENT COORDINATOR JAYMIE Primary Care Unavailable ALLAN ., DR JIM Mcdonnell Admitting Unavailable ALLAN ., DR JIM Mcdonnell Attending Unavailable AICHHOLZ, SALES DEVELOPMENT COORDINATOR JAYMIE Primary Care Unavailable THORNE ., JENNY Consulting Unavailable ALLAN ., DR JIM Mcdonnell Admitting Unavailable LALAN ., DR JIM Mcdonnell Attending Unavailable ALLAN ., DR JIM Mcdonnell Consulting Unavailable AICHHOLZ, SALES DEVELOPMENT COORDINATOR JAYMIE Primary Care Unavailable ALLAN ., DR JIM Mcdonnell Admitting Unavailable ALLAN ., DR JIM Mcdonnell Attending Unavailable ALLAN ., DR JIM Mcdonnell Consulting Unavailable AICHHOLZ, SALES DEVELOPMENT COORDINATOR JAYMIE Primary Care Unavailable THORNE ., JENNY Consulting Unavailable ALLAN ., DR JIM Mcdonnell Admitting Unavailable ALLAN ., DR JIM Mcdonnell Attending Unavailable AICHHOLZ, SALES DEVELOPMENT COORDINATOR JAYMIE Primary Care Unavailable ALLAN ., DR JIM Mcdonnell Attending Unavailable ALLAN ., DR JIM Mcdonnell Consulting Unavailable ALLAN ., DR JIM Mcdonnell Admitting Unavailable AICHHOLZ, SALES DEVELOPMENT COORDINATOR JAYMIE Primary Care Unavailable LAKSHMIPATHY ., NARENDRANATH Consulting Evelyn vailable NILL ., DR MASSEY Consulting Unavailable NILL ., DR MASSEY Admitting Unavailable AICHHOLZ, SALES DEVELOPMENT COORDINATOR JAYMIE Primary Care Unavailable NILL ., DR MASSEY Attending Unavailable AICHHOLZ, SALES DEVELOPMENT COORDINATOR JAYMIE Admitting Unavailable AICHHOLZ, SALES DEVELOPMENT COORDINATOR JAYMIE Attending Unavailable AICHHOLZ, SALES DEVELOPMENT COORDINATOR JAYMIE Consulting Unavailable AICHHOLZ, SALES DEVELOPMENT COORDINATOR JAYMIE Primary Care Unavailable CHET, DR MELISSA Hernandez Consulting Unavailable AICHHOLZ, SALES DEVELOPMENT COORDINATOR JAYMIE Admitting Unavailable AICHHOLZ, SALES DEVELOPMENT COORDINATOR JAYMIE Attending Unavailable AICHHOLZ, SALES DEVELOPMENT COORDINATOR JAYMIE Consulting Unavailable AICHHOLZ, SALES DEVELOPMENT COORDINATOR JAYMIE Primary Care Unavailable LORI FROST Consulting Unavailable ALLAN ., DR JIM Mcdonnell Attending Unavailable ALLAN ., DR JIM Mcdonnell Admitting Unavailable AICHHOLZ, SALES DEVELOPMENT COORDINATOR JAYMIE Primary Care Unavailable AICHHOLZ, SALES DEVELOPMENT COORDINATOR JAYMIE Primary Care Unavailable SAMSA ., MAGDALENA Admitting Unavailable SAMSA ., MAGDALENA Attending Unavailable SAMSA ., MAGDALENA Consulting Unavailable ALLAN ., DR JIM Mcdonnell Attending Unavailable ALLAN ., DR JIM Mcdonnell Admitting Unavailable ALLAN ., DR JIM Mcdonnell Consulting Unavailable AICHHOLZ, SALES DEVELOPMENT COORDINATOR JAYMIE Primary Care Unavailable AICHHOLZ, SALES DEVELOPMENT COORDINATOR JAYMIE Admitting Unavailable AICHHOLZ, SALES DEVELOPMENT COORDINATOR JAYMIE Attending Unavailable AICHHOLZ, SALES DEVELOPMENT COORDINATOR JAYMIE Consulting Unavailable AICHHOLZ, SALES DEVELOPMENT COORDINATOR JAYMIE Primary Care Unavailable Aichholz DESIGN TECHNOLOGY PROFESSOR, Jaymie Unavailable Shaikh Marquez MD Primary Care Provider AICHHOLZ, JAYMIE Attending Unavailable AICHHOLZ, JAYMIE Attending Unavailable AICHHOLZ, JAYMIE Attending Unavailable AICHHOLZ, JAYMIE Attending Unavailable AICHHOLZ, JAYMIE Attending Unavailable AICNikkiHOLHomer, JAYMIE Attending Unavailable Alphonse Damian Attending Unavailab le Raysa Damianrahman Admitting Unavailab le Alban Jaymie J Primary Care Unavailable Allergies Allergy Classification Reported Allergen(s) Allergy Type Date of Onset Reaction(s) Facility (9 sources) Penicillins; Translations: [penicillins] Drug allergy 4 Dyspnea (finding), Weal (disorder), Hives, Shortness of breath, Swelling [facility] [place] (2 sources) predniSONE; Translations: [prednisone] Drug Allergy Dyspnea (finding) [facility] [place] (1 source) prednisoLONE Drug Allergy [facility] (5 sources) Prednisone Propensity to adverse reactions 3 Itching [facility] Medications Current Medications Medication Drug Class(es) Dates Sig (Normalized) Sig (Original) [id number] 200 actuat albuterol 0.09 mg/actuat metered dose [...] (6 sources) Nonsteroidal Anti-inflammatory Drug Start: 03-15-19 24 End: 04-14-19 24 take 1 tablet by [...] Start: 01-22-2022 take 1 capsule by mo [facility] twice daily pregabalin 100 mg Cap [...] 2 Episodic Other aftercare (1 source) Other retirement (current) drug therapy; Translations: [OTH DATA SUPPORT SPECIALIST CURRENT DRUG THERAPY] Onset: 3 Episodic Other [...] 07-08-2022 02 MODE ROOM AIR Normal [facility] Comment on above: Performed By: #### A BG ####[facility] [address] [place], [place] [address]RcCindy MUKHERJEE TEST Positive Normal [facility] Comment on above: Performed By: #### A BG ####[facility] [address] [place], [place] [address]UwCindy El Base excess Calc (Bld) [Moles/Vol] 1.4 mmol/L Normal -2.0-2.0 [facility] Comment on above: Performed By: #### A BG ####[facility] [address] [place] [address]Dr. Phani El BIPAP PRESSURE Normal [facility] Comment on above: Performed By: #### A BG ####[facility] [address] [place] [address]Dr. Phani El CPAP Normal [facility] Comment on above: Performed By: #### A BG ####[facility] [address] [place], [place] [address]Dr. Phani El FIO2 Normal [facility] Comment on above: Performed By: #### A BG ####[facility] [address] [place], [place] [address]Dr. Phani El HCO3 (Bld) [Moles/Vol] 26.2 mmol/L Critically high 22.0-26.0 [facility] Comment on above: Performed By: #### A BG ####[facility] [address] [place], [place] [address]Dr. Phani El LPM Normal [facility] Comment on above: Performed By: #### A BG ####[facility] [address] [place], [place] [address]Dr. Phani El MINUTE VOLUME Normal [facility] Comment on above: Performed By: #### A BG ####[facility] [address] [place], [place] [address]Dr. Phani El Oxygen (Bld) [Partial pressure] 56.1 mm[Hg] Critically low 80.0-100.0 [facility] Comment on above: Performed By: #### A BG ####[facility] [address] [place], [place] [address]Dr. Phani El Oxygen saturation in Blood 92.0 % Critically low 95.0-100.0 [facility] Comment on above: Performed By: #### A BG ####[facility] [address] [place], [place] [address]Dr. Phani El PCO2 42.6 mmHg Normal 35.0-45.0 [facility] Comment on above: Performed By: #### A BG ####[facility] [address] [place] [address]Dr. Phani El PEEP [facility] Comment on above: Performed By: #### A BG ####[facility] [address] [place] [address]Dr. Phani El pH (Bld) 7.398 [pH] Normal 7.350-7.450 [facility] Comment on above: Performed By: #### A BG ####[facility] [address] [place] [address]Dr. Phani El PIP [facility] Comment on above: Performed By: #### A BG ####[facility] [address] [place] [address]Dr. Phani El PS [facility] Comment on above: Performed By: #### A BG ####[facility] [address] [place] [address]Dr. Phani El PUNCTURE SITE RR [facility] Comment on above: Performed By: #### A BG ####[facility] [address] [place] [address]Dr. Phani El RATE [facility] Comment on above: Performed By: #### A BG ####[facility] [address] [place] [address]Dr. Phani El VENT MODE [facility] Comment on above: Performed By: #### A BG ####[facility] [address] [place] [address]Dr. Phani El VT [facility] Comment on above: Performed By: #### A BG ####[facility] [address] [place], [place] [address]Dr. Phani El ECHOCARDIO M/2D COMPLETEon 0 07-08-2022 ECHOCARDIO M/2D COMPLETE Patient: FRANKY SRINIVASAN I. Exam Date: 07/08/2022 : 1965 Gender:F Ordering : DR. MAGDALENA DOWNING . Admission #: [id number] Family : MEREDITH PHOENIX [facility] Order #: [id number] CLICK HERE TO VIEW EXAM ECHOCARDIOGRAM REPORT [...] Garcia M.D. on 07/08/2022 at 18:14 Normal [facility] CT LUNG CANCER SCREENINGon 0 05-29-2022 CT [...] MELISSA ROSENBERG Date: 2022-05-29 09:36 Normal [facility] CBC AUTO DIFFon 05-05-2022 BASO # 0.1 103/ul Normal 0.0-0.1 [facility] Comment on above: Performed By: #### C BC #### [facility] [address] [place] [address] Dr. Phani El Basophils/100 WBC (Bld) 0.8 % Normal 0.2-2.0 [facility] Comment on above: Performed By: #### C BC #### [facility] [address] [place] [address] Dr. Phani El EO # 0.1 103/ul Normal 0.0-0.7 [facility] Comment on above: Performed By: #### C BC #### [facility] [address] [place] [address] Dr. Phani El Eosinophils/100 WBC (Bld) 2.0 % Normal 0.9-7.0 [facility] Comment on above: Performed By: #### C BC #### [facility] [address] [place] [address] Dr. Phani El Erythrocyte distribution width (RBC) [Ratio] 14.0 % Normal 11.0-15.0 [facility] Comment on above: Performed By: #### C BC #### [facility] [address] [place] [address] Dr. Phani El Hematocrit (Bld) [Volume fraction] 48.7 % Critically high 36.0-48.0 [facility] Comment on above: Performed By: #### C BC #### [facility] [address] [place] [address] Dr. Phani El Hemoglobin (Bld) [Mass/Vol] 15.9 g/dL Normal 12.0-16.0 [facility] Comment on above: Performed By: #### C BC #### [facility] [address] [place] [address] Dr. Phani El IG # 0.05 10e3/ul Critically high 0.00-0.03 [facility] Comment on above: Performed By: #### C BC #### [facility] [address] [place] [address] Dr. Phani El IG % 0.8 % Critically high 0.0-0.5 [facility] Comment on above: Performed By: #### C BC #### [facility] [address] [place] [address] Dr. Phani El LYMPH # 1.9 103/ul Normal 1.2-3.8 [facility] Comment on above: Performed By: #### C BC #### [facility] [address] [place] [address] Dr. Phani El Lymphocytes/100 WBC (Bld) 30.1 % Normal 20.5-60.0 [facility] Comment on above: Performed By: #### C BC #### [facility] [address] [place] [address] Dr. Phani El MANUAL DIFF REQ NO Normal [facility] Comment on above: Performed By: #### C BC #### [facility] [address] [place] [address] Dr. Phani El MCH (RBC) [Entitic mass] 32.9 pg Normal 26.7-34.0 [facility] Comment on above: Performed By: #### C BC #### [facility] [address] [place] [address] Dr. Phani El MCHC (RBC) [Mass/Vol] 32.6 g/dL Normal 29.9-35.2 [facility] Comment on above: Performed By: #### C BC #### [facility] [address] [place] [address] Dr. Phani El MCV (RBC) [Entitic vol] 100.8 fL Critically high 81.0-99.0 [facility] Comment on above: Performed By: #### C BC #### [facility] [address] [place] [address] Dr. Phani El MONO # 0.5 103/ul Normal 0.3-0.8 [facility] Comment on above: Performed By: #### C BC #### [facility] [address] [place] [address] Dr. Phani El Monocytes/100 WBC (Bld) 7.2 % Normal 1.7-12.0 [facility] Comment on above: Performed By: #### C BC #### [facility] [address] [place] [address] Dr. Phani El NEUT # 3.8 103/ul Normal 1.4-6.5 [facility] Comment on above: Performed By: #### C BC #### [facility] [address] [place] [address] Dr. Phani El Neutrophils/100 WBC (Bld) 59.1 % Normal 43.0-75.0 [facility] Comment on above: Performed By: #### C BC #### [facility] [address] [place] [address] Dr. Phani El Platelet mean volume (Bld) [Entitic vol] 11.0 fL Normal 9.5-13.5 [facility] Comment on above: Performed By: #### C BC #### [facility] [address] [place] [address] Dr. Phani El PLT 167 103/ul Normal 150-450 [facility] Comment on above: Performed By: #### C BC #### [facility] [address] [place] [address] [address] Phani El RBC 4.83 106/ul Normal 4.20-5.40 [facility] Comment on above: Performed By: #### C BC #### [facility] [address] [place] [address] [address] Phani El WBC 6.4 103/ul Normal 4.0-11.0 [facility] Comment on above: Performed By: #### C BC #### [facility] [address] [place] [address] [address] Phani El GLYCOHEMOGLOBIN A1Con 2022 ADA RECOMMENDATION SEE BELOW Normal [facility] Comment on above: Result Comment: ADA RECOMMENDED LIMIT 4.0 - 6.0 ADA THERAPEUTIC TARGET < 7.0 ACTION SUGGESTED > 7.0 Performed By: #### A 1C ####[facility] [address] [place] [address]Dr. Phani El Glucose [Mass/Vol] 114 mg/dL Normal [facility] Comment on above: Performed By: #### A 1C ####[facility] [address] [place] [address]Dr. Phani El HbA1c (Bld) [Mass fraction] 5.6 % Normal 4.5-6.2 [facility] Comment on above: Performed By: #### A 1C ####[facility] [address] [place] [address]Dr. Phani El LIPID PROFILEon 05-05-2022 CHOL-HDL RATIO NORM SEE BELOW Normal [facility] Comment on above: Result Comment: 3.3 - 4.4 LOW RISK 4.4 - 7.1 AVERAGE RISK 7.1 - 11.0 MODERATE RISK >11.0 HIGH RISK Performed By: #### C MP, LIPID #### [facility] [address] [place] [address] [address] Phani El Cholesterol [Mass/Vol] 178 mg/dL Normal <=200 [facility] Comment on above: Performed By: #### C MP, LIPID #### [facility] [address] [place] [address] [address] Phani El Cholesterol in HDL [Mass/Vol] 54 mg/dL Normal 40-60 [facility] Comment on above: Performed By: #### C MP, LIPID #### [facility] [address] [place] [address] [address] Phani El Cholesterol in LDL [Mass/Vol] 86.6 mg/dL Normal [facility] Comment on above: Performed By: #### C MP, LIPID #### [facility] [address] [place] [address] [address] Phani El Cholesterol.total/Ch olesterol in HDL [Mass ratio] 3.3 {ratio} Normal [facility] Comment on above: Performed By: #### C MP, LIPID #### [facility] [address] [place] [address] Dr. Phani El HDL NORMAL > or = 60 mg/dl - LO W CARDIOVASCULAR RISK <40 mg/dl - HIGH CARDIOVASCULAR RISK Normal [facility] Comment on above: Performed By: #### C MP, LIPID #### [facility] [address] [place] [address] Dr. Phani El LDL CALC NORMAL SEE BELOW Normal [facility] Comment on above: Result Comment: <100 mg/dl OPTIMAL 100 - 129 mg/dl NEAR OR ABOVE OPTIMAL 130 - 159 mg/dl BORDERLINE HIGH 160 - 189 mg/dl HIGH >190 mg/dl VERY HIGH Performed By: #### C MP, LIPID #### [facility] [address] [place] [address] Dr. Phani El Triglyceride [Mass/Vol] 187 mg/dL Critically high <=150 [facility] Comment on above: Performed By: #### C MP, LIPID #### [facility] [address] [place] [address] Dr. Phani El VLDL CALC 37.4 mg/dL Normal [facility] Comment on above: Performed By: #### C MP, LIPID #### [facility] [address] [place] [address] Dr. Phani El PROF 14(COMP METB)on 023 Albumin [Mass/Vol] 3.6 g/dL Normal 3.4-5.0 [facility] Comment on above: Performed By: #### C MP, LIPID ####[facility] [address] [place] [id number]. Phani El Albumin/Globulin [Mass ratio] 1.1 {ratio} Normal [facility] Comment on above: Performed By: #### C MP, LIPID ####[facility] [address] [place] [id number]. Phani El ALP [Catalytic activity/Vol] 91 U/L Normal 46-116 [facility] Comment on above: Performed By: #### C MP, LIPID ####[facility] [address] [place] [id number]. Phani El ALT [Catalytic activity/Vol] 34 U/L Normal 14-59 [facility] Comment on above: Performed By: #### C MP, LIPID ####[facility] [address] [place] [id number]. Phani El Anion gap [Moles/Vol] 11.6 mmol/L Normal [facility] Comment on above: Performed By: #### C MP, LIPID ####[facility] [address] [place] [id number]. Phani El AST [Catalytic activity/Vol] 18 U/L Normal 15-37 [facility] Comment on above: Performed By: #### C MP, LIPID ####[facility] [address] [place] [id number]. Phani El Bilirubin [Mass/Vol] 0.6 mg/dL Normal 0.2-1.0 [facility] Comment on above: Performed By: #### C MP, LIPID ####[facility] [address] [place] [id number]. Phani El Calcium [Mass/Vol] 9.2 mg/dL Normal 8.5-10.1 [facility] Comment on above: Performed By: #### C MP, LIPID ####[facility] [address] [place] [id number]. Phani El Chloride [Moles/Vol] 106 mmol/L Normal 98-107 [facility] Comment on above: Performed By: #### C MP, LIPID ####[facility] [address] [place] [id number]. Phani El CO2 [Moles/Vol] 32.3 mmol/L Critically high 21.0-32.0 [facility] Comment on above: Performed By: #### C MP, LIPID ####[facility] [address] [place] [address]Dr. Phani El Creatinine [Mass/Vol] 1.04 mg/dL Critically high 0.55-1.02 [facility] Comment on above: Performed By: #### C MP, LIPID ####[facility] [address] [place] [address]Dr. Phani El EGFR-AF CUBAN >60 Normal >=60 [facility] Comment on above: Performed By: #### C MP, LIPID ####[facility] [address] [place] [address]Dr. Phani El EGFR-NON AF CUBAN 54 mL/min/1.73m2 Critically low >=60 [facility] Comment on above: Performed By: #### C MP, LIPID ####[facility] [address] [place] [address]Dr. Phani El Globulin (S) [Mass/Vol] 3.4 g/dL Normal [facility] Comment on above: Performed By: #### C MP, LIPID ####[facility] [address] [place] [id number]. Phani El Glucose [Mass/Vol] 124 mg/dL Critically high 74-106 [facility] Comment on above: Performed By: #### C MP, LIPID ####[facility] [address] [place] [address]Dr. Phani El Potassium [Moles/Vol] 3.9 mmol/L Normal 3.5-5.1 [facility] Comment on above: Performed By: #### C MP, LIPID ####[facility] [address] [place] [id number]. Phani El Protein [Mass/Vol] 7.0 g/dL Normal 6.4-8.2 [facility] Comment on above: Performed By: #### C MP, LIPID ####[facility] [address] [place], [place] [address]Aa. Phani El Sodium [Moles/Vol] 146 mmol/L Critically high 136-145 T [facility] Comment on above: Performed By: #### C MP, LIPID ####[facility] [address] [place] [id number]. Phani El Urea nitrogen [Mass/Vol] 14.0 mg/dL Normal 7.0-18.0 [facility] Comment on above: Performed By: #### C MP, LIPID ####[facility] [address] [place] [id number]. Phani El Urea nitrogen/Creatinine [Mass ratio] 13.5 mg/mg Normal [facility] Comment on above: Performed By: #### C MP, LIPID ####[facility] [address] [place] [id number]. Phani El VITAMIN B12on 05-05-2022 Cobalamin (Vitamin B12) [Mass/Vol] 321.0 pg/mL Normal 193.0-986.0 [facility] Comment on above: Performed By: #### V ITOMI VITB12 #### [facility] [address] [place] [address] [address] Phani El VITAMIN D 25 OHon 05-05-2022 VIT D 25-OH 58.7 ng/mL Normal [facility] Comment on above: Performed By: #### V ITOMI VITB12 #### [facility] [address] [place] [address] [address] Phani El VIT D RANGES SEE BELOW Normal [facility] Comment on above: Result Comment: <20 ng/mL Vit D deficient 20 - <30 ng/mL Vit D insufficient 30 - 100 ng/mL Vit D sufficient >100 ng/mL Potential Toxicity Performed By: #### V ITAD, VITB12 #### [facility] [address] [place] [address] [address] Phani El XR CHEST 2 Von [...] LORI FROST Date: 2022-05-05 10:05 Normal [facility] Ambulatory Visit Summaryon 0 03-24-2022 Ambulatory [...] Vitamin B12 deficiency Vitamin D deficiency Normal [facility] General Surgery Office/Clini c Noteon 03-24-2022 General [...] inactivated - Not Given Patient Refuses Normal [facility] Comment on above: Result Comment: Elec tronically Signed By: NABIL AMADOR, Bryson Steinberg\Date and Time Signed: 03/24/22 13:12 EST Reminderson 03-24-2022 Reminders - From: Kristine Harrison LPN To: N - Clinical; Sent: 03/24/2022 13:05:34 EST Show up: 01/26/2032 07:00:00 EST Subject: colonoscopy recall Due Date/Time: 02/26/2032 07:00:00 EST Reminder/Recall Patient is due for screening colonoscopy 02/26/2032. Normal [facility] Covid-19 PCR (CVDTBH)on 02-10 SARS-CoV-2 (COVID-19) RNA MARISOL+probe Ql (Unsp spec) Detected Abnormal NOT DETECTED [facility] Comment on above: Result Comment: This test is not yet approved or cleared by the [place] FDA. When there are no FDA-approved or cleared tests available, and other criteria are met, FDA can make tests available under an emergency access mechanism called an Emergency Use Authorization (EUA). The EUA for this test is supported by the [place] of Health and Human Service's (HHS's) declaration [...] used). Performed By: #### C VDTB #### [facility] [address] [address] [address] Phani El INFLUENZA A AND B AGon 03-10 [facility] SEE BELOW Normal [facility] Comment on above: Result Comment: Nega tive for Flu A protein angiten. Infection due to Flu A cannot be ruled out. Flu A angiten in the sample may be below the detection limit of the test. Performed By: #### I NFLUAB ####[facility] [address] [address]DrCindy El INFLUBNEGH SEE BELOW Normal [facility] Comment on above: Result Comment: Nega tive for Flu B protein antigen. Infection due to Flu B cannot be ruled out. Flu B antigen in the sample may be below the detection limit of the test. Performed By: #### I NFLUAB ####[facility] [address] [address]Dr. Phani El INFLUENZA A AG Negative Normal NEGATIVE SEE COMMENT [facility] Comment on above: Performed By: #### I NFLUAB ####[facility] [address] [place], [place] [address]Dr. Phani El INFLUENZA B AG Negative Normal NEGATIVE SEE COMMENT [facility] Comment on above: Performed By: #### I NFLUAB ####[facility] [address] [place], [place] [address]DrCindy El [facility]-09 SARS-CoV-2 (COVID-19) RNA MARISOL+probe Ql (Unsp spec) Detected Abnormal NOT DETECTED [facility] Comment on above: Result Comment: This test is not yet approved or cleared by the [place] FDA. When there are no FDA-approved or cleared tests available, and other criteria are met, FDA can make tests available under an emergency access mechanism called an Emergency Use Authorization (EUA). The EUA for this test is supported by the [place] of Health and Human Service's declaration that [...] longer be used). Performed By: #### C [facility] #### [facility] [address] [place] [address] Dr. Phani El Pathology Noteon 02-27-2022 Pathology Note [id number] 0CD:127 Normal [facility] Outside Colonoscopyon 2022 Outside Colonoscopy [id number]#1.0 0CD:127 Normal [facility] Reminderson 02-26-2022 Reminders - From: Kristine Harrison LPN To: Kristine Harrison LPN; Sent: 02/26/2022 11:14:25 EST Show up: 05/18/2022 07:00:00 EDT Subject: Ambulatory Reminder Due Date/Time: 05/27/2022 07:00:00 EDT Reminder/Recall log in to extra lap top in [place] to keep account active Normal [facility] Lab Reportson 02-23-2022 Lab Reports [id number] 0CD:127 Normal [facility] Covid-19 PCR (CVDTB)on 02-08 SARS-CoV-2 (COVID-19) RNA MARISOL+probe Ql (Unsp spec) Not detected Normal NOT DETECTED [facility] Comment on above: Result Comment: This test is not yet approved or cleared by the [place] FDA. When there are no FDA-approved or cleared tests available, and other criteria are met, FDA can make tests available under an emergency access mechanism called an Emergency Use Authorization (EUA). The EUA for this test is supported by the [employer] Coordinator of Health and Human Service's (HHS's) declaration [...] consistent with SARS-CoV-2. Performed By: #### C [facility] ####[facility] [place], [place] [address]Lj. Phani El Pre-Certification Formon Pre-Certification Form [id number]. 00CD:127 Normal [facility] Consent for Procedure/Surger yon 02-05-2022 Consent for Procedure/Surgery [id number] 0CD:127 Normal [facility] Formson 02-05-2022 Forms [id number] 0CD:127 Normal [facility] Physician Referralon 022 Physician Referral [id number] 0CD:127 Normal [facility] MRI Knee w/o Lefton 12-26-19 22 MRI [...] by Jason Sanchez on 12/25/2021 1505 Normal [facility] Process Automation Engineer MRI LSPINE WO CONon 12-05-19 MRI LSPINE [...] central or foraminal stenosis Electronically authenticated by: NADNIE GRANT Date: 2021-12-04 17:54 Normal [facility] XR LSPINE 2_3 VIEWSon 2021 XR LSPINE [...] NADINE GRANT Date: 2021-09-30 07:20 Normal [facility] MRI Knee w/o Lefton 07-30-19 [...] by Robby Diaz on 07/30/2021 1316 Normal [facility] Process Automation Engineer Vital Signs Date Time Vital Sign Value Performing Clinician Facility 03-25-2023 13:130500 Body height 165.1 cm Jaymie Phoenix NP Work Phone: [facility] 03-25-2023 13:13-0500 Body mass index (BMI) [Ratio] 42.9 kg/m2 Jaymie Phoenix NP Work Phone: [facility] 03-25-2023 13:13-0500 Body temperature 97.5 [degF] Jaymie Phoenix NP Work Phone: [facility] 03-25-2023 13:13-0500 Body weight 116.94 kg Jaymie Phoenix NP Work Phone: [facility] 03-25-2023 13:13-0500 Diastolic blood pressure 68 mm[Hg] Jaymie Aichholz DESIGN TECHNOLOGY PROFESSOR Work Phone: [facility] 03-25-2023 13:13-0500 Heart rate 71 /min Jaymie Aichholz DESIGN TECHNOLOGY PROFESSOR Work Phone: [facility] 03-25-2023 13:13-0500 Respiratory rate 20 /min Jaymie Aichholz DESIGN TECHNOLOGY PROFESSOR Work Phone: [facility] 03-25-2023 13:13-0500 SaO2% (BldA) [Mass fraction] 95 % Jaymie Aichholz DESIGN TECHNOLOGY PROFESSOR Work Phone: [facility] 03-25-2023 13:13-0500 Systolic blood pressure 108 mm[Hg] Jaymie Aichholz DESIGN TECHNOLOGY PROFESSOR Work Phone: [facility] 03-16-2023 13:35-0500 Body height 165.1 cm Jaymie Aichholz DESIGN TECHNOLOGY PROFESSOR Work Phone: [facility] 03-16-2023 13:35-0500 Body mass index (BMI) [Ratio] 41.6 kg/m2 Jaymie Aichholz DESIGN TECHNOLOGY PROFESSOR Work Phone: [facility] 03-16-2023 13:35-0500 Body temperature 98.4 [degF] Jaymie Maddyhholz DESIGN TECHNOLOGY PROFESSOR Work Phone: [facility] 03-16-2023 13:35-0500 Body weight 113.4 kg Jaymie Aichholz DESIGN TECHNOLOGY PROFESSOR Work Phone: [facility] 03-16-2023 13:35-0500 Diastolic blood pressure 72 mm[Hg] Jaymie Aichholz DESIGN TECHNOLOGY PROFESSOR Work Phone: [facility] 03-16-2023 13:35-0500 Heart rate 77 /min Jaymie Aichholz DESIGN TECHNOLOGY PROFESSOR Work Phone: [facility] 03-16-2023 13:35-0500 Respiratory rate 18 /min Jaymie Aichholz DESIGN TECHNOLOGY PROFESSOR Work Phone: [facility] 03-16-2023 13:35-0500 SaO2% (BldA) [Mass fraction] 95 % Jaymie Ducholz DESIGN TECHNOLOGY PROFESSOR Work Phone: [facility] 03-16-2023 13:35-0500 Systolic blood pressure 112 mm[Hg] Jaymie Alessandroz DESIGN TECHNOLOGY PROFESSOR Work Phone: [facility] 02-03-2022 13:27-0500 Blood Pressure Location Bryson NILL [facility] [place] 02-03-2022 13:27-0500 Diastolic blood pressure 80 mm[Hg] Bryson NILL [facility] [place] 02-03-2022 13:27-0500 Heart rate 72 /min Bryson NILL [facility] [place] 02-03-2022 13:27-0500 Respiratory rate 16 /min Bryson NILL [facility] [place] 02-03-2022 13:27-0500 Systolic blood pressure 126 mm[Hg] Bryson NILL [facility] [place] Encounters Encounter Date Encounter Type Care Provider Facility Start: 08-23-2023 ambulatory Alphonse Patton acility:[facility] Start: 06-03-2023 End: 06-03-2023 ambulatory JAYMIE AICHHOLZ Not Available Start: 05-13-2023 End: 05-13-2023 ambulatory JAYMIE AICHHOLZ Not Available Start: 04-26-2023 End: 04-26-2023 ambulatory JAYMIE AICHHOLZ Not Available Start: 03-25-2023 End: 03-25-2023 ambulatory JAYMIE AICHHOLZ Not Available Start: 03-25-2023 Bamboo flowsheet Jaymie Aichholz DESIGN TECHNOLOGY PROFESSOR Work Phone: [facility] Start: 03-25-2023 Bamboo flowsheet Jaymie Aichholz DESIGN TECHNOLOGY PROFESSOR Work Phone: [facility] Start: 03-25-2023 End: 03-25-2023 Office outpatient visit 25 minutes Jaymie Aichholz DESIGN TECHNOLOGY PROFESSOR Work Phone: [facility] Comment on above: Edema of right lower extremity (Primary Dx); BMI 40.0-44.9, adult (CMS/HCC); Shortness of breath; COPD mixed type (CMS/HCC); Primary hypertension (CMS/HCC); Bilateral lower extremity edema Start: 03-16-2023 End: 03-16-2023 ambulatory JAYMIE AICHHOLZ Not Available Start: 03-16-2023 End: 03-16-2023 Office outpatient visit 25 minutes Jaymie Aichholz DESIGN TECHNOLOGY PROFESSOR Work Phone: [facility] Comment on above: COPD mixed type (CMS /HCC) (Primary Dx); Tobacco dependence; BMI 40.0-44.9, adult (CMS/HCC); Body mass index [BMI] 40.0-44.9, adult (Z68.41); Primary hypertension (CMS/HCC); Bilateral lower extremity edema Start: 01-26-2023 End: 01-26-2023 ambulatory JAYMIE AICHMAURICEZ Not Available Start: 07-08-2022 ambulatory SALES DEVELOPMENT COORDINATOR JAYMIE MADDYNikkiASHLEY Facil ity:[facility] Start: 05-29-2022 End: 05-30-2022 ambulatory SALES DEVELOPMENT COORDINATOR JAYMIE AICHMAURICEZ Facility:[facility] Start: 05-05-2022 End: 05-06-2022 ambulatory SALES DEVELOPMENT COORDINATOR JAYMIE MADDYHMAURICEZ Facility:[facility] Start: 04-30-2022 End: 05-01-[address] JIM ALLAN . Facility:[facility] Start: 03-31-2022 End: 03-31-[address] JIM ALLAN . Facility:[facility] Start: 03-27-[address] JIM ALLAN . Faci lity:[facility] Start: 03-24-2022 End: 03-25-2022 ambulatory Bryson SAMPSON Facility:[facility] Start: 03-17-2022 ambulatory Bryson SAMPSON Facility : [facility] Start: 03-10-2022 End: 03-10-2022 ambulatory SALES DEVELOPMENT COORDINATOR JAYMIE ALBAN Facility:[facility] Start: 03-02-2022 Encounter for preprocedural laboratory examination DR JIM ALLAN . [facility] Start: 02-28-2022 End: 03-01-2022 Encounter for preprocedural laboratory examination MEREDITH GATICAASHLEY Facility:[facility] Start: 02-28-2022 End: 03-01-2022 ambulatory MEREDITH GATICAMAUIRCEHomer Facility:[facility] Start: 02-25-2022 End: 02-26-2022 ambulatory Bryson SAMPSON Facility:CD:[id number] Start: 02-21-2022 End: 02-22-[address] BRYSON SAMPSON . Facility:[facility] Start: 02-06-2022 End: 02-07-2022 ambulatory JENNY THORNE . Facility:[facility] Start: 02-03-2022 End: 02-04-2022 ambulatory Tracy Saldaña Maddyashley Facility:[facility] Start: 02-03-2022 End: 02-03-2022 Patient encounter procedure Bryson SAMPSON [facility] [place] [place] Start: 01-13-2022 End: 01-13-[address] JIM ALLAN . Facility:[facility] Start: 01-08-2022 End: 01-09-[address] JIM ALLAN . Facility:[facility] Start: 01-06-2022 ambulatory Bryson SAMPSON Facility :[facility] Start: 12-23-2021 End: 12-23-[address] JIM ALLAN . Facility:[facility] Start: 12-09-2021 End: 12-10-[address] JIM ALLAN . Facility:[facility] Start: 12-04-2021 End: 12-05-2021 ambulatory MEREDITH HOLCOMB ALBAN Facility:[facility] Start: 12-03-2021 End: 12-03-2021 ambulatory GLENROY BOWERS . Facility:[facility] Start: 10-10-2021 End: 10-30-2021 ambulatory MR DEMETRIUS MENDEZ . Facility:[facility] Start: 09-29-2021 End: 09-30-2021 ambulatory MEREDITH HOLCOMB ALBAN Facility:[facility] Start: 09-20-2021 End: 09-20-2021 ambulatory GLENROY BOWERS . Facility: Procedures Date Procedure Procedure Detail Performing Clinician Start: 03-25-2023 Mammography Jaymiecaesar kohler DESIGN TECHNOLOGY PROFESSOR Work Phone: Start: 02-25-2022 Colonoscopy Jaymie kohler DESIGN TECHNOLOGY PROFESSOR Work Phone: section Bryson Saldaña Ligation of fallopian tube Leslie SAMPSON Repair of meniscus Bryson HOWELL Total abdominal hysterectomy with bilateral salpingo-oophorectomy Bryson SAMPSON Plan of Treatment Date Care Activity Detail Author Start: 02-26-2032 Screening for malign ant neoplasm of colon [facility] Start: 12-26-2024 Screening for malign ant neoplasm of colon FIT-DNA [facility] Start: 03-25-2024 Screening for malign ant neoplasm of breast Mammogram [facility] Start: 08-08-2023 Influenza vaccination Influenza Vacc ine (#1) [facility] Comment on above: Postponed from 10/09 (Patient Refused) Start: 04-06-2023 End: 04-06-2023 Patient encounter procedure 04/06/2023 1:40 PM EST Office Visit [facility] [address] [place] [phone] Jaymie Phoenix, NILE [address] [place] [id number] [facility] Start: 03-25-2023 End: 03-25-2024 CBC W Auto Differential panel - Blood CBC and differential Lab Routine Edema of right lower extremity Expected: 03/25/2023 (Approximate), Expires: 03/25/2024 [facility] Comment on above: Expected: 03/25/2023 (Approximate), Expires: 03/25/2024 Start: 03-25-2023 End: 03-25-2024 Comprehensive metabolic 2000 panel - Serum or Plasma Comprehensive metabolic panel Lab Routine Edema of right lower extremity Expected: 03/25/2023 (Approximate), Expires: 03/25/2024 [facility] Comment on above: Expected: 03/25/2023 (Approximate), Expires: 03/25/2024 Start: 03-25-2023 End: 03-25-2024 Fibrin D-dimer FEU [Mass/volume] in Platelet poor plasma D-dimer, quantitative Lab Routine Edema of right lower extremity Expected: 03/25/2023 (Approximate), Expires: 03/25/2024 [facility] Comment on above: Expected: 03/25/2023 (Approximate), Expires: 03/25/2024 Start: 03-25-2023 End: 03-25-2024 US.doppler Lower extremity vein - right Vascular US lower extremity venous duplex right Imaging STAT Edema of right lower extremity Expected: 03/25/2023, Expires: 03/25/2024 [facility] Work Phone: Comment on above: Expected: 03/25/2023 , Expires: 03/25/2024 Start: 03-25-2023 End: 03-25-2024 XR Chest 2 Views XR chest 2 views Imaging Routine Edema of right lower extremity Shortness of breath Expected: 03/25/2023, Expires: 03/25/2024 [facility] Comment on above: Expected: 03/25/2023 , Expires: 03/25/2024 Start: 08-16-1993 Screening for malign ant neoplasm of cervix HPV/Cotest [facility] Start: 08-16-1984 Screening for malign ant neoplasm of cervix Pap Smear [facility] Start: 1965 Medicare Annual Well ness (AWV) Medicare Annual Wellness (AWV) [facility] Start: 1965 Screening for malign ant neoplasm of colon [facility] Immunizations Immunization Date Immunization Notes Care Provider Fa cility NEGATED: Highlighted row has not occurred!02-03-2022 influenza virus vaccine, unspecified formulation Bryson SAMPSON [facility] [place] Payers Date Payer Category Payer Self-pay 2021 Medicare AETNA MEDICARE A DVANTAGE AETNA MEDICARE REPLACEMENT [id number] 2021-Present [address] [place] [address] [id number] 1963 Unknown [id number] 2.16.840.1.231068.3.579.2. 727 1963 Unknown [id number] 2.16.840.1.773639.3.579.2. 72 1963 Unknown [id number] 2.16.840.1.431193.3.579.2. 72 1963 Unknown [id number] 2.16.840.1.677158.3.579.2. 72 1963 Unknown [id number] 2.16.840.1.211897.3.579.2. 72 1963 Unknown [id number] 2.16.840.1.618500.3.579.2 59 1963 Unknown [id number] 2.16.840.1.838892.3.579.2. 59 1963 Unknown [id number] 2.16.840.1.825161.3.579.2 59 1963 Unknown [id number] 2.16.840.1.825148.3.579.2 59 1963 Unknown [id number] 2.16.840.1.897065.3.579.2. 59 1963 Unknown [id number] 2.16.840.1.967623.3.579.2. 59 1963 Unknown [id number] 2.16.840.1.027000.3.579.2 59 1963 Unknown [id number] 2.16.840.1.535778.3.579.2. 59 1963 Unknown [id number] 2.16.840.1.647960.3.579.2. 59 1963 Unknown [id number] 2.16.840.1.268309.3.579.2. 593 1963 Unknown [id number] 2.16.840.1.416363.3.579.2. 593 1963 Unknown [id number] 2.16.840.1.049678.3.579.2. 593 1963 Unknown [id number] 2.16.840.1.435197.3.579.2. 593 1963 Unknown [id number] 2.16.840.1.994382.3.579.2. 593 1963 Unknown [id number] 2.16.840.1.657318.3.579.2. 593 1963 Unknown [id number] 2.16.840.1.392876.3.579.2. 593 1963 Unknown [id number] 2.16.840.1.338864.3.579.2. 593 1963 Unknown [id number] 2.16840.1.518792.3.579.2. 59 1963 Unknown [id number] 2.16.840.1.297679.3.579.2. 593 1963 Unknown [id number] 2.16840.1.537843.3.579.2. 593 1963 Unknown [id number] 2.16.840.1.749872.3.579.2. 593 1963 Unknown [id number] 2.16840.1.709859.3.579.2. 593 1963 Unknown [id number] 2.16.840.1.130049.3.579.2. 1259 1963 Unknown [id number] 2.16.840.1.972166.3.579.2. 1259 1963 Unknown [id number] 2.16.840.1.980886.3.579.2. 1259 1963 Unknown [id number] 2.16.840.1.690950.3.579.2. 1259 1963 Unknown [id number] 2.16.840.1.204974.3.579.2. 1259 1959 Private Health Insurance [id number] Unknown [id number] 2.16.840.1.514633.3.579.2. 531 Social History Date Type Detail Facility Start: 02-03-2022 Tobacco smoking status Heavy t obacco smoker (finding) [facility] [place] Tobacco smoking status Never [facility] Start: 03-16-2023 End: 03-25-2023 Sex Assigned At Female Masoud Ramos [facility] Start: 01-26-2023 [facility] History of [...] Facility 02-03-2022 Functional Status N/A [facility] Clinical Notes 12-09-2021 to 03-25-2023 Jaymie Phoenix NP - 03/25/2023 4:34 PM Ashok Phoenix NP - 03/25/2023 4:32 PM Ashok Phoenix NP - 03/25/2023 4:32 PM EDEL PASCUAL - 03/25/2023 1:00 PM EST Note Date [...] (BMI) of 40.0 to 44.9 in adult ([facility]) 01/26/2023 COPD mixed type ([facility]) 01/26/2023 DENIES HX OF BLOOD BORNE DISEASES Depression ([facility]) Fibromyalgia Open wound of left foot 01/26/2023 Open wound of second toe 01/26/2023 Other acute sinusitis 01/26/2023 Primary hypertension ([facility]) 01/26/2023 Tobacco dependence 01/26/2023 Past Surgical History: [...] chest 2 views documented in this encounter [facility] 03-16-2023 History of Present illness Narrative [...] (BMI) of 40.0 to 44.9 in adult ([facility]) 01/26/2023 COPD mixed type ([facility]) 01/26/2023 DENIES HX OF BLOOD BORNE DISEASES Depression ([facility]) Fibromyalgia Open wound of left foot 01/26/2023 Open wound of second toe 01/26/2023 Other acute sinusitis 01/26/2023 Primary hypertension ([facility]) 01/26/2023 Tobacco dependence 01/26/2023 Past Surgical History: [...] 40.0-44.9, adult (Z68.41) documented in this encounter [facility] 04-30-2022 Note CONSULTATION CONSULTATION DATE: 04/30/2022 [...] office on an as needed basis. [facility] 02-25-2022 Note OPERATIVE NOTE OPERATION DATE: [...] good condition. CC: Patient's family physician [facility] 02-06-2022 Note CONSULTATION CONSULTATION DATE: 02/06/2022 [...] followed up in the clinic thereafter. [facility] 02-03-2022 Note Chief Complaint consultation for [...] 30 days Tobacco (more content not included)... [facility] Comment on above: Result Comment: Elec tronically [...] followed up in the clinic thereafter. [facility] 12-09-2021 Note CONSULTATION CONSULTATION DATE: 12/09/2021 [...] to proceed. CC: Jaymie Phoenix, MEREDITH [facility] Evaluation + Plan note No data available for this section [facility] [place] Evaluation note Diagnosis COPD mixed type (CMS/HCC)- Primary Tobacco dependence Tobacco use disorder BMI 40.0-44.9, adult (CMS/HCC) Body mass index [BMI] 40.0-44.9, adult (Z68.41) Primary hypertension (CMS/HCC) Unspecified essential hypertension Bilateral lower extremity edema documented [facility] Diagnosis Edema of right lower extremity- Primary BMI 40.0-44.9, adult (CMS/HCC) Shortness of breath COPD mixed type (CMS/HCC) Primary hypertension (CMS/[facility]) Unspecified essential hypertension Bilateral lower extremity edema [...] Phoenix NP [address] [place] [address] Referral ID Status Reason Start Date Expiration Date V isits Requested Visits Authorized [id number] Authorized 03/25/2023 09/21/2023 1 1 Additional Source Comments INFORMATION SOURCE (unrecogn ized section and content) DATE CREATED AUTHOR 12/26/2021 [facility] dical Specialist DATE CREATED AUTHOR AUTHOR'S ORGANIZ ATION 03/25/2022 [facility] DATE CREATED AUTHOR AUTHOR'S ORGANIZ ATION 07/17/2022 [facility] DATE CREATED AUTHOR AUTHOR'S ORGANIZ ATION 06/05/2023 [facility] d[facility] Specialists [facility] DATE CREATED AUTHOR AUTHOR'S ORGANIZ ATION 08/24/2023 [facility] Patient Care team informatio n (unrecognized section and content) Executive Secretary Relationship Specialty Start Date End Date Jaymie Phoenix NP [address] [place] [address] Nurse Practitioner Family Medicine 01/26/23 Executive Secretary Relationship Specialty Start Date End Date Shaikh Marquez MD [address] [place] [phone] PCP - General Internal Medicine 03/25/23 Jaymie Phoenix NP [address] [place] [phone] Nurse Practitioner Family Medicine 01/26/23 Executive Secretary Relationship Specialty Start Date End Date Shaikh Marquez MD [address] [place] [phone] PCP - General Internal Medicine 03/25/23 Jaymie Phoenix NP [address] [place] [phone] Nurse Practitioner Family Medicine 01/26/23 FOR RECORDS [...] BE BASED ON THE PRIMARY CLINICAL RECORDS. [facility] [employer] [facility]. provides no warranty or guarantee of the accuracy or completeness of information in this document.
--- NOTE | 2023-08-29 19:33 | ED.UPPEXIN1 ---
HPI HPI - Extremity Injury (Upper) General Chief Complaint: Extremity Injury, Upper Stated Complaint: LT HAND INJURY Time Seen by Provider: 08/29/23 19:22 Source: patient Mode of arrival: walk-in History of Present Illness HPI narrative: Patient is a 58-year-old female [id number] who presents to the ER with concerns of laceration to the left hand. Patient has a 1.5 cm superficial laceration along the first dorsal webspace. No active bleeding. Injury occurred last night around midnight and she presents more than 18 hours after her injury. She is unsure of her last tetanus. Her is being seen for an unrelated complaint prompting her to seek evaluation for her hand. She denies any significant pain or discomfort. There is no drainage. Patient denies any direct blow and states it was more of a glancing movement of the edge of a sharp corner of her cabinet. Patient has intact range of motion MD complaint: injury to: Reports left and hand Hand dominance: right Place: Reports home Severity: mild Relieving factors: Reports none Exacerbating factors: Reports none Context: Reports laceration Treatments prior to arrival: Reports bandage Related Data Previous Rx's ?Medication ?Instructions ?Recorded ibuprofen 800 mg tablet 800 mg PO Q8H PRN pain #20 tabs 01/08/23 methocarbamol 500 mg tablet 500 mg PO Q8H PRN muscle spasm #10 01/08/23 tabs doxycycline hyclate 100 mg capsule 100 mg PO BID 7 days #14 caps 08/29/23 Allergies Allergy/AdvReac Type Severity Reaction Status Date / Time prednisone Allergy Severe Anaphylaxis Verified 03/26/23 09:54 Penicillins AdvReac Severe Anaphylaxis Verified 03/26/23 09:54 Opioid HPI Opioid Management Most Recent Pain and Opioid Data: Last Pain Scale 10 01/08/23 17:35 Review of Systems ROS Constitutional Denies: fever, chills or change in weight Ears, nose, mouth, and throat Denies: throat pain or neck pain Cardiovascular Denies: chest pain or palpitations Respiratory Denies: shortness of breath or cough Gastrointestinal Denies: abdominal pain or nausea Musculoskeletal Reports: extremity pain (Laceration left hand); Denies: back pain or neck pain Integumentary/Breast Denies: rash or redness Neurological Denies: headache Psychiatric Denies: anxiety Hematologic/Lymphatic Denies: easy bruising PFSH PFSH Social History Smoking status: Current every day smoker Exam Narrative Exam Narrative: Nurse's notes and vital signs reviewed. Patient is not hypoxic. General: The patient appears well and in no apparent distress. Patient is resting comfortably on cart. Skin: Warm, dry, no pallor noted. 1.5 inch linear well-approximated laceration through the dermis above the first dorsal webspace of the left hand. No active bleeding no active drainage. Minimal erythema to the wound margin. Head: Normocephalic, atraumatic Eye: Normal conjunctiva Respiratory: Patient is in no distress Musculoskeletal: The left hand and wrist shows no obvious deformity. There was minimal swelling noted. The patient had full range of motion of her hand, no evidence of extensor tendon injury with intact extension of her thumb index and middle finger. The patient had tenderness noted to the laceration. The patient had no tenderness in the anatomical snuff box. The patient had no pain with axial loading of the thumb. Pulses are intact at brachial and radial 2+. There was no deficit at the elbow or shoulder. The patient has normal capillary refill to all distal digits. The patient has no evidence of cyanosis or mottling. The patient is able to flex and extend all digits without difficulty. Neurological: A&O x4, normal sensory, normal motor Psychiatric: Cooperative Constitutional Vital Signs, click to edit/add: Last Vital Signs Temp 97.6 F 08/29/23 19:24 Pulse 89 08/29/23 19:24 Resp 16 08/29/23 19:24 BP 106/72 08/29/23 19:24 Pulse Ox 94 L 08/29/23 19:24 O2 Del Method Room Air 08/29/23 19:24 Course Vital Signs Vital signs: Vital Signs Temperature 97.6 F 08/29/23 19:24 Pulse Rate 89 08/29/23 19:24 Respiratory Rate 16 08/29/23 19:24 Blood Pressure 106/72 08/29/23 19:24 Pulse Oximetry 94 L 08/29/23 19:24 Oxygen Delivery Method Room Air 08/29/23 19:24 Temperature 97.6 F 08/29/23 19:24 Pulse Rate 89 08/29/23 19:24 Respiratory Rate 16 08/29/23 19:24 Blood Pressure 106/72 08/29/23 19:24 Pulse Oximetry 94 L 08/29/23 19:24 Oxygen Delivery Method Room Air 08/29/23 19:24 MDM - Extremity Injury (Upper) MDM Narrative Medical decision making narrative: Reviewed patient's history, tetanus was updated today. She will be started on doxycycline pending further wound healing. We discussed secondary intention as she presents delayed over 18 hours since her initial injury occurred. We discussed the risks and benefits of placing sutures. Her wound appears low-tension and will be approximated with Steri-Strips. Patient would like to avoid possibility of infection if possible. Recommend close follow-up with family doctor for reevaluation. Patient is to let the Steri-Strips fall off on her own and avoiding making any white knuckle fist with her left hand. Patient denies direct trauma, do not feel x-ray is clinically indicated at this time. The patient is to followup with primary care physician in next 2 days or to return to the emergency department should any of the signs or symptoms worsen or new symptoms develop. Patient had questions answered. The patient agrees with the following Diagnosis and Treatment plan and the patient will be discharged home. Discharge Plan Discharge Stand Alone Forms: Portal Instructions Chief Complaint: Extremity Injury, Upper Clinical Impression: Laceration of hand with delay in treatment Patient Disposition: Home, Self-Care Time of Disposition Decision: 19:41 Condition: Good Prescriptions / Home Meds: New doxycycline hyclate 100 mg capsule 100 mg PO BID 7 Days Qty: 14 0RF No Action ibuprofen 800 mg tablet 800 mg PO Q8H PRN (Reason: pain) Qty: 20 0RF methocarbamol 500 mg tablet 500 mg PO Q8H PRN (Reason: muscle spasm) Qty: 10 0RF Print Language: Ukrainian Instructions: Laceration Without Closure (ED) Additional Instructions: Recommend wound recheck with PCP in 2 days. Leave today's dressing on for 24 hours, recommend bulky gauze dressing to cover and protect wound. Do not submerge the wound. Referrals: Jaymie hPoenix NP [Primary Care Provider] - As soon as possible Procedures ED Procedure Instructions Procedures Procedures: Has laceration left hand with delayed presentation. The hand was soaked in chlorhexidine solution, irrigated with saline. Wound was approximated with Steri-Strips and a bulky jane gauze dressing was applied. Patient neurovascular intact status post dressing and application.
[2023-08-29] MEDS: DOXYCYCLINE MONOHYDRATE 100 MG CAPSULE PO (20:01)
[2023-08-29] MEDS: ADACEL DIPH,PERTUSS(ACELL),TET VAC/PF 0.5 ML ADULT SYRINGE IM (20:01)
[2023-08-29] MEDS: SODIUM CHLORIDE 0.9% IRRIG SOLUTION 1,000 ML BOTTLE 1000 ML IRR (20:02)
== END 2023-08-29 20:10 | disposition home or self-care (01) ==
PROVIDERS: Emergency Provider Emergency Medicine; PCP Nurse Practitioner
DX: S61.412A Laceration without foreign body of left hand, initial encounter (principal); Z23 Encounter for immunization; W26.8XXA Contact with other sharp object(s), not elsewhere classified, initial encounter; F17.200 Nicotine dependence, unspecified, uncomplicated
CPT/HCPCS: 90471; 90715; 99283

== ENCOUNTER 2023-12-24 11:35 | Emergency (ER) | payer MEDICARE, SELFPAY ==
[2023-12-24] VITALS (15 sets, daily range): BP systolic 145–156; BP diastolic 89–115; PULSE 69–79; TEMP 36.6; O2SAT 85–99; BMI 32.3
--- NOTE | 2023-12-24 12:13 | ECG_ITS ---
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
--- NOTE | 2023-12-24 12:13 | XR_ITS ---
The [address] [address] Patient Name: FRANKY SRINIVASAN MRN: [id number] date: 1965 Sex: F Assigned Patient Location: ER Current Patient Location: ER Accession/Order Number: [id number] Exam Date: 12/24/2023 12:45 Report Date: 12/24/2023 13:05 At the request of: BILLIE BHATIA Procedure: XR chest 1V EXAMINATION: XR chest 1V HISTORY: sob COMPARISON: XR chest 03/25/2023 FINDINGS: LUNGS: Underexpanded lungs with moderate opacity within right lung base; mild within left lung base. VASCULATURE: No increased pulmonary vasculature. PLEURA: No pneumothorax, effusion, or pleural thickening. CARDIAC: No cardiomegaly or cardiac silhouette abnormality. MEDIASTINUM: No visible mass or adenopathy. BONES: No fracture or visible bone lesion. OTHER: Negative. XR/XR chest 1V IMPRESSION: 1. Low lung volume examination. 2. Moderate right, mild left basilar infiltrates versus atelectasis. Electronically authenticated by: MELISSA ROSENBERG Date: 12/24/2023 13:05
--- NOTE | 2023-12-24 12:17 | ED_ITS ---
HPI HPI - General Adult General Chief complaint: Shortness of Breath/Dyspnea Stated complaint: SHORTNESS OF BREATH Time Seen by Provider: 12/24/23 12:13 Source: patient Mode of arrival: walk-in Limitations: no limitations Related Data Previous Rx's ?Medication ?Instructions ?Recorded ibuprofen 800 mg tablet 800 mg PO Q8H PRN pain #20 tabs 01/08/23 methocarbamol 500 mg tablet 500 mg PO Q8H PRN muscle spasm #10 01/08/23 tabs doxycycline hyclate 100 mg capsule 100 mg PO BID 7 days #14 caps 08/29/23 Allergies Allergy/AdvReac Type Severity Reaction Status Date / Time prednisone Allergy Severe Anaphylaxis Verified 12/24/23 11:41 Penicillins AdvReac Severe Anaphylaxis Verified 12/24/23 11:41 Opioid HPI Opioid Management Most Recent Opioid Data: Last Pain Scale 10 01/08/23 17:35 01/08/23 PFS PFS Social History Smoking status: Current every day smoker Little interest or pleasure in doing things: not at all Feeling down, depressed, or hopeless: not at all Exam Constitutional Vital Signs, click to edit/add: Last Vital Signs Temp 98 F 12/24/23 11:41 Pulse 76 12/24/23 12:01 Resp 24 H 12/24/23 12:01 BP 156/97 H 12/24/23 11:49 Pulse Ox 94 L 12/24/23 12:14 O2 Del Method Nasal Cannula 12/24/23 12:14 O2 Flow Rate 2 12/24/23 12:14 Course Vital Signs Vital signs: Vital Signs Temperature 98 F 12/24/23 11:41 Pulse Rate 77 12/24/23 11:41 Respiratory Rate 24 H 12/24/23 11:41 Blood Pressure 156/97 H 12/24/23 11:41 Pulse Oximetry 85 L 12/24/23 11:41 Oxygen Delivery Method Room Air 12/24/23 11:41 Temperature 98 F 12/24/23 11:41 Pulse Rate 76 12/24/23 12:01 Respiratory Rate 24 H 12/24/23 12:01 Blood Pressure 156/97 H 12/24/23 11:49 Pulse Oximetry 94 L 12/24/23 12:14 Oxygen Delivery Method Nasal Cannula 12/24/23 12:14 Oxygen Delivery Flow Rate 2 12/24/23 12:14 Medical Decision Making ECG Data Attestation: I personally reviewed and interpreted this ECG as follows: (EKG interpretation. Normal sinus rhythm at 78 beats minute. Normal axis deviation. No acute ST elevation, no acute ectopy. QTc of 423. Artifact noted.) Discharge Plan Discharge Chief Complaint: Shortness of Breath/Dyspnea Prescriptions / Home Meds: No Action doxycycline hyclate 100 mg capsule 100 mg PO BID 7 Days Qty: 14 0RF ibuprofen 800 mg tablet 800 mg PO Q8H PRN (Reason: pain) Qty: 20 0RF methocarbamol 500 mg tablet 500 mg PO Q8H PRN (Reason: muscle spasm) Qty: 10 0RF Print Language: Mongolian Referrals: Jamyie Phoenix NP [Primary Care Provider] - 1 week
[2023-12-24 12:22] LABS: Basophils Percent Auto 0.5 % (0.2-2.0); Hematocrit 42.7 % (36.0-48.0); Hemoglobin 14.2 g/dL (12.0-16.0); Immature Granulocytes Abs Auto 0.03 10^3/uL (0.00-0.03); Immature Granulocytes Pct Auto 0.8 % (0.0-0.5); Lymphocytes Absolute Auto 1.3 10^3/uL (1.2-3.8); Lymphocytes Percent Auto 33.2 % (20.5-60.0); Mean Corpuscular HGB Conc 33.3 g/dL (29.9-35.2); Mean Corpuscular Hemoglobin 36.8 pg (26.7-34.0); Mean Corpuscular Volume 110.6 fL (81.0-99.0); Mean Platelet Volume 10.7 fL (9.5-13.5); Monocytes Absolute Auto 0.4 10^3/uL (0.3-0.8); Monocytes Percent Auto 9.4 % (1.7-12.0); Neutrophils Absolute Auto 2.1 10^3/uL (1.4-6.5); Neutrophils Percent Auto 55.1 % (43.0-75.0); Platelet Count 141 10^3/uL (150-450); Red Cell Distribution Width 14.3 % (11.0-15.0); White Blood Count 3.8 10^3/uL (4.0-11.0)
[2023-12-24] MEDS: IPRATROPIUM/ALBUTEROL SULFATE 3 ML AMPUL.NEB IH ×2 (12:27)
[2023-12-24] MEDS: ALBUTEROL SULFATE 2.5 MG/3 ML VIAL NEB IH ×2 (12:27→13:18)
[2023-12-24 12:39] LABS: Influenza Virus A Antigen Negative; Influenza Virus B Antigen Negative; Internal Control Within Normal Limits; SARS-CoV-2 Ag NEGATIVE (NEGATIVE)
[2023-12-24 12:47] LABS: Alanine Aminotransferase 35 U/L (14-59); Albumin Level 3.3 g/dL (3.4-5.0); Alkaline Phosphatase 114 U/L (46-116); Anion Gap 10.9; Aspartate Amino Transferase 27 U/L (15-37); BUN Creatinine Ratio 8.3; Bilirubin Total 0.8 mg/dL (0.2-1.0); Calcium 8.5 mg/dL (8.5-10.1); Carbon Dioxide 32.1 mmol/L (21.0-32.0); Chloride 106 mmol/L (98-107); Estimated GFR (African America 55 (>=60 mL/min/1.73m^2); Estimated GFR (Non-African Ame 45 (>=60 mL/min/1.73m^2); Globulin 3.3 g/dL; Glucose 102 mg/dL (74-106); Sodium 145 mmol/L (136-145); Total Protein 6.6 g/dL (6.4-8.2)
[2023-12-24 12:49] LABS: Red Blood Count 3.86 10^6/uL (4.20-5.40)
[2023-12-24 12:54] LABS: Troponin I High Sensitivity 5.3 pg/mL (4.0-51.3)
[2023-12-24 13:32] LABS: Magnesium 1.8 mg/dL (1.8-2.4)
[2023-12-24] MEDS: METHYLPREDNISOLONE SOD SUCC PF 125 MG/2 ML VIAL IVP (13:35)
[2023-12-24] MEDS: CEFTRIAXONE 1,000 MG in 0.9 % SODIUM CHLORIDE 50 ML 100 MG IV (13:43)
[2023-12-24] MEDS: AZITHROMYCIN 250 MG TABLET 500 MG PO (13:43)
--- NOTE | 2023-12-24 14:30 | ED.GENADUL1 ---
Documented by User: Concepción Dozier 12/24/23 14:39 HPI HPI - General Adult General Chief complaint: Shortness of Breath/Dyspnea Stated complaint: SHORTNESS OF BREATH Time Seen by Provider: 12/24/23 12:13 Source: patient Mode of arrival: walk-in Limitations: no limitations History of Present Illness HPI narrative: 58-year-old female with a history of here with chief complaint of shortness of breath. She states she has had increased shortness of breath over the last 2 to 3 days with left lower rib pain. She is a smoker. She used a inhaler this morning with little relief. Upon arrival she had audible in-store expiratory wheezing. She was able to speak sentences but did have to stop. Denies chest pain. Denies a history of recent hospitalization. On any antibiotics or steroids. She has not hypoxic Related Data Previous Rx's ?Medication ?Instructions ?Recorded ibuprofen 800 mg tablet 800 mg PO Q8H PRN pain #20 tabs 01/08/23 methocarbamol 500 mg tablet 500 mg PO Q8H PRN muscle spasm #10 01/08/23 tabs doxycycline hyclate 100 mg capsule 100 mg PO BID 7 days #14 caps 08/29/23 albuterol sulfate 2.5 mg/3 mL 1.25 mg (1.5 mL) inhalation Q6H 12/24/23 (0.083 %) solution for nebulization PRN shortness of breath or wheezing #90 mL azithromycin 250 mg tablet See Rx Instructions PO .COMPLEX #6 12/24/23 (Zithromax Z-Hector) tabs Allergies Allergy/AdvReac Type Severity Reaction Status Date / Time prednisone Allergy Severe Anaphylaxis Verified 12/24/23 11:41 Penicillins AdvReac Severe Anaphylaxis Verified 12/24/23 11:41 Opioid HPI Opioid Management Most Recent Opioid Data: Last Pain Scale 10 01/08/23 17:35 01/08/23 Review of Systems ROS Narrative All Systems are negative except as noted/marked.All systems reviewed and otherwise negative PFSH PFSH Social History Smoking status: Current every day smoker Little interest or pleasure in doing things: not at all Feeling down, depressed, or hopeless: not at all Exam Narrative Exam Narrative: All Systems are negative except as noted/marked.All systems reviewed and otherwise negative Nurses note and vital signs reviewed and patient is not hypoxic. General: The patient appears well and in no apparent distress. Patient is resting comfortably on cart. Skin: Warm, dry, no pallor noted. There is no rash noted. Head: Normocephalic, atraumatic Eye: Normal conjunctiva, no drainage, EOMI. PERRL Ears, Nose, Mouth, and Throat: oral mucosa is moist. Nares patent. Mouth without vesicles. Ear canals patent. Tm's without Erythema Cardiovascular: Regular Rate and Rhythm Respiratory: Expiratory wheezing, no rales or rhonchi, dry nonproductive cough, no accessory muscle usage Back: non-tender, no CVA tenderness bilaterally to percussion. GI: Normal bowel sounds, no tenderness to palpation, no masses appreciated. No rebound, guarding, or rigidity noted. Musculoskeletal: The patient has no evidence of calf tenderness, no pitting edema, symmetrical pulses noted bilaterally Neurological: A&O x4, normal speech Psychiatric: Cooperative Constitutional Vital Signs, click to edit/add: Last Vital Signs Temp 98 F 12/24/23 11:41 Pulse 72 12/24/23 14:29 Resp 20 12/24/23 14:29 BP 156/96 H 12/24/23 14:29 Pulse Ox 92 L 12/24/23 14:29 O2 Del Method Room Air 12/24/23 14:29 O2 Flow Rate 2 12/24/23 13:19 Course Vital Signs Vital signs: Vital Signs Temperature 98 F 12/24/23 11:41 Pulse Rate 77 12/24/23 11:41 Respiratory Rate 24 H 12/24/23 11:41 Blood Pressure 156/97 H 12/24/23 11:41 Pulse Oximetry 85 L 12/24/23 11:41 Oxygen Delivery Method Room Air 12/24/23 11:41 Temperature 98 F 12/24/23 11:41 Pulse Rate 72 12/24/23 14:29 Respiratory Rate 20 12/24/23 14:29 Blood Pressure 156/96 H 12/24/23 14:29 Pulse Oximetry 92 L 12/24/23 14:29 Oxygen Delivery Method Room Air 12/24/23 14:29 Oxygen Delivery Flow Rate 2 12/24/23 13:19 Medical Decision Making MDM Narrative Medical decision making narrative: 58-year-old female with a history of here with chief complaint of shortness of breath. She states she has had increased shortness of breath over the last 2 to 3 days with left lower rib pain. She is a smoker. She used a inhaler this morning with little relief. Upon arrival she had audible in-store expiratory wheezing. She was able to speak sentences but did have to stop. Denies chest pain. Denies a history of recent hospitalization. On any antibiotics or steroids. She has not hypoxic Arrival to the emergency room patient was medicated with a DuoNeb breathing treatment x 2 and albuterol. Patient continued have audible expiratory wheezing. I did repeat albuterol nebulizer. Lab work and chest x-ray were reviewed patient's x-ray shows a questionable left lower lobe pneumonia. Blood cultures were obtained. Patient was given Rocephin here in the emergency room as well as Zithromax. Breathing did improve patient did feel more comfortable. IV Solu-Medrol was also given. Patient's presentation COPD exacerbation with pneumonia were noted. Patient does feel much better going home advised her not to smoke. Lab work including CBC and BMP were reviewed and unremarkable. Chest x-ray showed left lower lobe infiltrate versus atelectasis. Patient be discharged home with Zithromax. She been given Rocephin here in the emergency room. Patient agrees with plan of care and reasons to return to the emergency room were discussed. Patient advised to not smoke. Patient is not hypoxic she looks well at discharge. Diagnosis pneumonia COPD exacerbation Differential Diagnosis Differential Diagnosis: COPD, pneumonia Medical Records Medical records reviewed: Yes I reviewed the patient's medical records Lab Data Lab results reviewed: Yes I reviewed the patient's lab results Labs: Lab Results 12/24/23 12/24/23 Range/Units 11:55 12:20 WBC 3.8 L (4.0-11.0) 10^3/uL RBC 3.86 L (4.20-5.40) 10^6/uL Hgb 14.2 (12.0-16.0) g/dL Hct 42.7 (36.0-48.0) % MCV 110.6 H (81.0-99.0) fL MCH 36.8 H (26.7-34.0) pg MCHC 33.3 (29.9-35.2) g/dL RDW 14.3 (11.0-15.0) % Plt Count 141 L (150-450) 10^3/uL MPV 10.7 (9.5-13.5) fL Neut % (Auto) 55.1 (43.0-75.0) % Lymph % (Auto) 33.2 (20.5-60.0) % [place] % (Auto) 9.4 (1.7-12.0) % Eos % (Auto) 1.0 (0.9-7.0) % Baso % (Auto) 0.5 (0.2-2.0) % Neut # (Auto) 2.1 (1.4-6.5) 10^3/uL Lymph # (Auto) 1.3 (1.2-3.8) 10^3/uL [place] # (Auto) 0.4 (0.3-0.8) 10^3/uL Eos # (Auto) 0.0 (0.0-0.7) 10^3/uL Baso # (Auto) 0.0 (0.0-0.1) 10^3/uL Abs Immat Gran (auto) 0.03 (0.00-0.03) 10^3/uL Imm/Tot Granulo (auto) 0.8 H (0.0-0.5) % Sodium 145 (136-145) mmol/L Potassium 4.0 (3.5-5.1) mmol/L Chloride 106 (98-107) mmol/L Carbon Dioxide 32.1 H (21.0-32.0) mmol/L Anion Gap 10.9 BUN 10.0 (7.0-18.0) mg/dL Creatinine 1.21 H (0.55-1.02) mg/dL Est GFR ( Amer) 55 L (>=60 mL/min/1.73m^2) Est GFR (Non-Af Amer) 45 L (>=60 mL/min/1.73m^2) BUN/Creatinine Ratio 8.3 Glucose 102 (74-106) mg/dL Calcium 8.5 (8.5-10.1) mg/dL Magnesium 1.8 (1.8-2.4) mg/dL Total Bilirubin 0.8 (0.2-1.0) mg/dL AST 27 (15-37) U/L ALT 35 (14-59) U/L Alkaline Phosphatase 114 (46-116) U/L Troponin I High Sens 5.3 (4.0-51.3) pg/mL NT-Pro-B Natriuret Pep 570.0 (<=900.0) pg/mL Total Protein 6.6 (6.4-8.2) g/dL Albumin 3.3 L (3.4-5.0) g/dL Globulin 3.3 g/dL Albumin/Globulin Ratio 1.0 Influenza Type A Ag Negative Influenza Type B Ag Negative SARS-CoV-2 Ag (CV2AG) Negative (NEGATIVE) Imaging Data Chest x-ray: Attestation: I have reviewed the pertinent imaging results. Radiologist's impression: ITS Impressions Chest X-Ray 12/24/23 12:13 IMPRESSION: 1. Low lung volume examination. 2. Moderate right, mild left basilar infiltrates versus atelectasis. Electronically authenticated by: MELISSA ROSENBERG Date: 12/24/2023 13:05 ECG Data Interpretation: [id number] with a rate of 78 bpm NM interval 190 ms QRS duration 96 ms, no STEMI minimal artifact Discharge Plan Discharge Chief Complaint: Shortness of Breath/Dyspnea Clinical Impression: Community acquired pneumonia, Acute infective exacerbation of chronic obstructive airway disease Patient Disposition: Home, Self-Care Time of Disposition Decision: 14:28 Condition: Good Prescriptions / Home Meds: New albuterol sulfate 2.5 mg /3 mL (0.083 %) solution for nebulization 1.25 mg inhalation Q6H PRN (Reason: shortness of breath or wheezing) Qty: 90 0RF azithromycin [Zithromax Z-Hector] 250 mg tablet See Rx Instructions .ROUTE .COMPLEX Qty: 6 0RF Rx Instructions: For 250 mg dose pack: take 500 mg today (day 1), then 250 mg for 4 days (days 2-5) start medication on wednesday12/25/23 No Action doxycycline hyclate 100 mg capsule 100 mg PO BID 7 Days Qty: 14 0RF ibuprofen 800 mg tablet 800 mg PO Q8H PRN (Reason: pain) Qty: 20 0RF methocarbamol 500 mg tablet 500 mg PO Q8H PRN (Reason: muscle spasm) Qty: 10 0RF Print Language: [place] Instructions: COPD (Chronic Obstructive Pulmonary Disease) (ED), How to Use a Nebulizer (ED), Pneumonia (ED) Referrals: Jaymie Phoenix ELECTRIC BATH ATTENDANT [Primary Care Provider] - 1 week Discharge Date/Time: 12/24/23 14:40 Documented by User: Tyler Brown MD 12/24/23 17:40 HPI HPI - General Adult General Chief complaint: Shortness of Breath/Dyspnea Stated complaint: SHORTNESS OF BREATH Time Seen by Provider: 12/24/23 12:13 History of Present Illness HPI narrative: 58-year-old female with a history of here with chief complaint of shortness of breath. She states she has had increased shortness of breath over the last 2 to 3 days with left lower rib pain. She is a smoker. She used a inhaler this morning with little relief. Upon arrival she had audible in-store expiratory wheezing. She was able to speak sentences but did have to stop. Denies chest pain. Denies a history of recent hospitalization. On any antibiotics or steroids. She has not hypoxic. Related Data Previous Rx's ?Medication ?Instructions ?Recorded ibuprofen 800 mg tablet 800 mg PO Q8H PRN pain #20 tabs 01/08/23 methocarbamol 500 mg tablet 500 mg PO Q8H PRN muscle spasm #10 01/08/23 tabs doxycycline hyclate 100 mg capsule 100 mg PO BID 7 days #14 caps 08/29/23 albuterol sulfate 2.5 mg/3 mL 1.25 mg (1.5 mL) inhalation Q6H 12/24/23 (0.083 %) solution for nebulization PRN shortness of breath or wheezing #90 mL azithromycin 250 mg tablet See Rx Instructions PO .COMPLEX #6 12/24/23 (Zithromax Z-Hector) tabs Allergies Allergy/AdvReac Type Severity Reaction Status Date / Time prednisone Allergy Severe Anaphylaxis Verified 12/24/23 11:41 Penicillins AdvReac Severe Anaphylaxis Verified 12/24/23 11:41 Opioid HPI Opioid Management Most Recent Opioid Data: Last Pain Scale 10 01/08/23 17:35 01/08/23 PFSH PFSH Social History Smoking status: Current every day smoker Little interest or pleasure in doing things: not at all Feeling down, depressed, or hopeless: not at all Exam Constitutional Vital Signs, click to edit/add: Last Vital Signs Temp 98 F 12/24/23 11:41 Pulse 72 12/24/23 14:29 Resp 20 12/24/23 14:29 BP 156/96 H 12/24/23 14:29 Pulse Ox 92 L 12/24/23 14:29 O2 Del Method Room Air 12/24/23 14:29 O2 Flow Rate 2 12/24/23 13:19 Course Vital Signs Vital signs: Vital Signs Temperature 98 F 12/24/23 11:41 Pulse Rate 77 12/24/23 11:41 Respiratory Rate 24 H 12/24/23 11:41 Blood Pressure 156/97 H 12/24/23 11:41 Pulse Oximetry 85 L 12/24/23 11:41 Oxygen Delivery Method Room Air 12/24/23 11:41 Temperature 98 F 12/24/23 11:41 Pulse Rate 72 12/24/23 14:29 Respiratory Rate 20 12/24/23 14:29 Blood Pressure 156/96 H 12/24/23 14:29 Pulse Oximetry 92 L 12/24/23 14:29 Oxygen Delivery Method Room Air 12/24/23 14:29 Oxygen Delivery Flow Rate 2 12/24/23 13:19 Medical Decision Making MDM Narrative Medical decision making narrative: 58-year-old female with a history of here with chief complaint of shortness of breath. She states she has had increased shortness of breath over the last 2 to 3 days with left lower rib pain. She is a smoker. She used a inhaler this morning with little relief. Upon arrival she had audible in-store expiratory wheezing. She was able to speak sentences but did have to stop. Denies chest pain. Denies a history of recent hospitalization. On any antibiotics or steroids. She has not hypoxic Arrival to the emergency room patient was medicated with a DuoNeb breathing treatment x 2 and albuterol. Patient continued have audible expiratory wheezing. I did repeat albuterol nebulizer. Lab work and chest x-ray were reviewed patient's x-ray shows a questionable left lower lobe pneumonia. Blood cultures were obtained. Patient was given Rocephin here in the emergency room as well as Zithromax. Breathing did improve patient did feel more comfortable. IV Solu-Medrol was also given. Patient's presentation COPD exacerbation with pneumonia were noted. Patient does feel much better going home advised her not to smoke. Lab work including CBC and BMP were reviewed and unremarkable. Chest x-ray showed left lower lobe infiltrate versus atelectasis. Patient be discharged home with Zithromax. She been given Rocephin here in the emergency room. Patient agrees with plan of care and reasons to return to the emergency room were discussed. Patient advised to not smoke. Patient is not hypoxic she looks well at discharge. Diagnosis pneumonia COPD exacerbation I, Dr Brown, have reviewed the above progress note and course of action in the ER; agree with the above. I have personally seen and evaluated this patient, gone over history and physical, and discussed disposition and treatment plan with the patient. Lab Data Labs: Lab Results 12/24/23 12/24/23 Range/Units 11:55 12:20 WBC 3.8 L (4.0-11.0) 10^3/uL RBC 3.86 L (4.20-5.40) 10^6/uL Hgb 14.2 (12.0-16.0) g/dL Hct 42.7 (36.0-48.0) % MCV 110.6 H (81.0-99.0) fL MCH 36.8 H (26.7-34.0) pg MCHC 33.3 (29.9-35.2) g/dL RDW 14.3 (11.0-15.0) % Plt Count 141 L (150-450) 10^3/uL MPV 10.7 (9.5-13.5) fL Neut % (Auto) 55.1 (43.0-75.0) % Lymph % (Auto) 33.2 (20.5-60.0) % [place] % (Auto) 9.4 (1.7-12.0) % Eos % (Auto) 1.0 (0.9-7.0) % Baso % (Auto) 0.5 (0.2-2.0) % Neut # (Auto) 2.1 (1.4-6.5) 10^3/uL Lymph # (Auto) 1.3 (1.2-3.8) 10^3/uL [place] # (Auto) 0.4 (0.3-0.8) 10^3/uL Eos # (Auto) 0.0 (0.0-0.7) 10^3/uL Baso # (Auto) 0.0 (0.0-0.1) 10^3/uL Abs Immat Gran (auto) 0.03 (0.00-0.03) 10^3/uL Imm/Tot Granulo (auto) 0.8 H (0.0-0.5) % Sodium 145 (136-145) mmol/L Potassium 4.0 (3.5-5.1) mmol/L Chloride 106 (98-107) mmol/L Carbon Dioxide 32.1 H (21.0-32.0) mmol/L Anion Gap 10.9 BUN 10.0 (7.0-18.0) mg/dL Creatinine 1.21 H (0.55-1.02) mg/dL Est GFR ( Amer) 55 L (>=60 mL/min/1.73m^2) Est GFR (Non-Af Amer) 45 L (>=60 mL/min/1.73m^2) BUN/Creatinine Ratio 8.3 Glucose 102 (74-106) mg/dL Calcium 8.5 (8.5-10.1) mg/dL Magnesium 1.8 (1.8-2.4) mg/dL Total Bilirubin 0.8 (0.2-1.0) mg/dL AST 27 (15-37) U/L ALT 35 (14-59) U/L Alkaline Phosphatase 114 (46-116) U/L Troponin I High Sens 5.3 (4.0-51.3) pg/mL NT-Pro-B Natriuret Pep 570.0 (<=900.0) pg/mL Total Protein 6.6 (6.4-8.2) g/dL Albumin 3.3 L (3.4-5.0) g/dL Globulin 3.3 g/dL Albumin/Globulin Ratio 1.0 Influenza Type A Ag Negative Influenza Type B Ag Negative SARS-CoV-2 Ag (CV2AG) Negative (NEGATIVE) Imaging Data Chest x-ray: Radiologist's impression: ITS Impressions Chest X-Ray 12/24/23 12:13 IMPRESSION: 1. Low lung volume examination. 2. Moderate right, mild left basilar infiltrates versus atelectasis. Electronically authenticated by: MELISSA CHET Date: 12/24/2023 13:05 Discharge Plan Discharge Chief Complaint: Shortness of Breath/Dyspnea Clinical Impression: Community acquired pneumonia, Acute infective exacerbation of chronic obstructive airway disease Patient Disposition: Home, Self-Care Time of Disposition Decision: 14:28 Condition: Good Prescriptions / Home Meds: New albuterol sulfate 2.5 mg /3 mL (0.083 %) solution for nebulization 1.25 mg inhalation Q6H PRN (Reason: shortness of breath or wheezing) Qty: 90 0RF azithromycin [Zithromax Z-Hector] 250 mg tablet See Rx Instructions .ROUTE .COMPLEX Qty: 6 0RF Rx Instructions: For 250 mg dose pack: take 500 mg today (day 1), then 250 mg for 4 days (days 2-5) start medication on wednesday12/25/23 No Action doxycycline hyclate 100 mg capsule 100 mg PO BID 7 Days Qty: 14 0RF ibuprofen 800 mg tablet 800 mg PO Q8H PRN (Reason: pain) Qty: 20 0RF methocarbamol 500 mg tablet 500 mg PO Q8H PRN (Reason: muscle spasm) Qty: 10 0RF Print Language: [place] Instructions: COPD (Chronic Obstructive Pulmonary Disease) (ED), How to Use a Nebulizer (ED), Pneumonia (ED) Referrals: Jaymie Phoenix ELECTRIC BATH ATTENDANT [Primary Care Provider] - 1 week Discharge Date/Time: 12/24/23 14:40
== END 2023-12-24 14:40 | disposition home or self-care (01) ==
PROVIDERS: Physician Assistant; Emergency Provider Emergency Medicine; PCP Nurse Practitioner
DX: J18.9 Pneumonia, unspecified organism (principal); J44.0 Chronic obstructive pulmonary disease with (acute) lower respiratory infection; J44.1 Chronic obstructive pulmonary disease with (acute) exacerbation; R06.02 Shortness of breath; F17.200 Nicotine dependence, unspecified, uncomplicated
CPT/HCPCS: 36415; 71045; 80053; 83735; 83880; 84484; 85025; 87040; 87804; 87811; 93005; 94640; 96365; 96375; 99285; J0696; J2919

== ENCOUNTER 2023-12-25 20:45 | Inpatient (IN) | payer MEDICARE, SELFPAY ==
[2023-12-25] VITALS (18 sets, daily range): BP systolic 156–178; BP diastolic 91–108; PULSE 70–86; TEMP 36.7; O2SAT 86–98; BMI 32.3; BMI 40.1
--- OUTSIDE RECORDS SUMMARY | 2023-12-25 20:51 | XMS_ITS | CCD ---
Author Organization [facility] Care Team Providers [employer] Executive Director Name Role Phone JAYMIE PHOENIX Primary Care Physician [phone] Bryson SAMPSON Attending Unavailable JAYMIE PHOENIX Referring Unavailabl e NABIL, Bryson Hernandez Attending Unavailable Aichholz, Tracy L Referring Unavailable NILL, Bryson Hernandez Attending Unavailable NILL, Bryson Hernandez Attending Unavailable NILL, Bryson Hernandez Attending Unavailable AICHHOLZ, DESIGN LEAD JAYMIE Primary Care Unavailable ALLAN ., DR JIM Mcdonnell Attending Unavailable ALLAN ., DR JIM Mcdonnell Admitting Unavailable ALLAN ., DR JIM Mcdonnell Consulting Unavailable ROBINSON ., GLENROY Admitting Unavailable ROBINSON .GLENROY Attending Unavailable SJ SOLER Consulting Unavailable AICHHOLZ, DESIGN LEAD JAYMIE Primary Care Unavailable MENDEZ ., MR DEMETRIUS Admitting Unavailable MENDEZ ., MR DEMETRIUS Attending Unavailable AICHHOLZ, DESIGN LEAD JAYMIE Primary Care Unavailable AICHHOLZ, DESIGN LEAD JAYMIE Admitting Unavailable JUANITA, DR NADINE Caldwell Consulting Unavailable AICHHOLZ, DESIGN LEAD JAYMIE Primary Care Unavailable AICHHOLZ, DESIGN LEAD JAYMIE Attending Unavailable AICHHOLZ, DESIGN LEAD JAYMIE Consulting Unavailable AICHHOLZ, DESIGN LEAD JAYMIE Admitting Unavailable JUANITA, DR NADINE Caldwell Consulting Unavailable AICHHOLZ, DESIGN LEAD JAYMIE Primary Care Unavailable AICHHOLZ, DESIGN LEAD JAYMIE Attending Unavailable AICHHOLZ, DESIGN LEAD JAYMIE Consulting Unavailable AICHHOLZ, DESIGN LEAD JAYMIE Primary Care Unavailable NILL ., DR MASSEY Admitting Unavailable NILL ., DR MASSEY Attending Unavailable NILL ., DR MASSEY Consulting Unavailable SONDRA FELICIANO Consulting Unavailable ROBINSON ., GLENROY Admitting Unavailable ROBINSON ., GLENROY Attending Unavailable ROBINSON .GLENROY Consulting Unavailable AICHHOLZ, DESIGN LEAD JAYMIE Primary Care Unavailable ALLAN ., DR JIM Mcdonnell Attending Unavailable ALLAN ., DR JIM Mcdonnell Consulting Unavailable ALLAN ., DR JIM Mcdonnell Admitting Unavailable AICHHOLZ, DESIGN LEAD JAYMIE Primary Care Unavailable MARIA FERNANDA SOSA Consulting Unavailable ALLAN ., DR JIM Mcdonnell Attending Unavailable ALLAN ., DR JIM Mcdonnell Consulting Unavailable ALLAN ., DR JIM Mcdonnell Admitting Unavailable AICHHOLZ, DESIGN LEAD JAYMIE Primary Care Unavailable ALLAN ., DR JIM Mcdonnell Admitting Unavailable ALLAN ., DR JIM Mcdonnell Attending Unavailable ALLAN ., DR JIM Mcdonnell Consulting Unavailable AICHHOLZ, DESIGN LEAD JAYMIE Primary Care Unavailable ALLAN ., DR JIM Mcdonnell Admitting Unavailable ALLAN ., DR JIM Mcdonnell Attending Unavailable AICHHOLZ, DESIGN LEAD JAYMIE Primary Care Unavailable THORNE ., JENNY Consulting Unavailable ALLAN ., DR JIM Mcdonnell Admitting Unavailable ALLAN ., DR JIM Mcdonnell Attending Unavailable ALLAN ., DR JIM Mcdonnell Consulting Unavailable AICHHOLZ, DESIGN LEAD JAYMIE Primary Care Unavailable ALLAN ., DR JIM Mcdonnell Admitting Unavailable ALLAN ., DR JIM Mcdonnell Attending Unavailable ALLAN ., DR JIM Mcdonnell Consulting Unavailable AICHHOLZ, DESIGN LEAD JAYMIE Primary Care Unavailable THORNE ., JENNY Consulting Unavailable ALLAN ., DR JIM Mcdonnell Admitting Unavailable ALLAN ., DR JIM Mcdonnell Attending Unavailable AICHHOLZ, DESIGN LEAD JAYMIE Primary Care Unavailable ALLAN ., DR JIM Mcdonnell Attending Unavailable ALLAN ., DR JIM Mcdonnell Consulting Unavailable ALLAN ., DR JIM Mcdonnell Admitting Unavailable AICHHOLZ, DESIGN LEAD JAYMIE Primary Care Unavailable LAKSHMIPATHY ., NARENDRANATH Consulting Evelyn vailable NILL ., DR MASSEY Consulting Unavailable NILL ., DR MASSEY Admitting Unavailable AICHHOLZ, DESIGN LEAD JAYMIE Primary Care Unavailable NILL ., DR MASSEY Attending Unavailable AICHHOLZ, DESIGN LEAD JAYMIE Admitting Unavailable AICHHOLZ, DESIGN LEAD JAYMIE Attending Unavailable AICHHOLZ, DESIGN LEAD JAYMIE Consulting Unavailable AICHHOLZ, DESIGN LEAD JAYMEI Primary Care Unavailable CHET, DR MELISSA Hernandez Consulting Unavailable AICHHOLZ, DESIGN LEAD JAYMIE Admitting Unavailable AICHHOLZ, DESIGN LEAD JAYMIE Attending Unavailable AICHHOLZ, DESIGN LEAD JAYMIE Consulting Unavailable AICHHOLZ, DESIGN LEAD JAYMIE Primary Care Unavailable LORI FROST Consulting Unavailable ALLAN ., DR JIM Mcdonnell Attending Unavailable ALLAN ., DR JIM Mcdonnell Admitting Unavailable AICHHOLZ, DESIGN LEAD JAYMIE Primary Care Unavailable AICHHOLZ, DESIGN LEAD JAYMIE Primary Care Unavailable SAMSA ., MAGDALENA Admitting Unavailable SAMSA ., MAGDALENA Attending Unavailable SAMSA ., MAGDALENA Consulting Unavailable ALLAN ., DR JIM Mcdonnell Attending Unavailable ALLAN ., DR JIM Mcdonnell Admitting Unavailable ALLAN ., DR JIM Mcdonnell Consulting Unavailable AICHHOLZ, DESIGN LEAD JAYMIE Primary Care Unavailable AICHHOLZ, DESIGN LEAD JAYMIE Admitting Unavailable AICHHOLZ, DESIGN LEAD JAYMIE Attending Unavailable AICHHOLZ, DESIGN LEAD JAYMIE Consulting Unavailable AICHHOLZ, DESIGN LEAD JAYMIE Primary Care Unavailable Aichholz METAL HANGING SUPERVISOR, Jaymie Unavailable Shaikh Marquez MD Primary Care Provider AICHHOLZ, JAYMIE Attending Unavailable AICHHOLZ, JAYMIE Attending Unavailable AICHHOLZ, JAYMIE Attending Unavailable AICHHOLZ, JAYMIE Attending Unavailable AICHHOLZ, JAYMIE Attending Unavailable AICHHOLZ, JAYMIE Attending Unavailable Aichholz METAL HANGING SUPERVISOR, Jaymie Unavailable Rohan Rodríguez MD Primary Care Provider Aicascencionholhomer METAL HANGING SUPERVISOR, Jaymie Unavailable Alphonse Damian Attending Unavailab Alphonse Todd Admitting Unavailab le Jaymie Phoenix J Primary Care Unavailable Allergies Allergy Classification Reported Allergen(s) Allergy Type Date of Onset Reaction(s) Facility (10 sources) Penicillins; Translations: [penicillins] Drug allergy 4 Dyspnea (finding), Weal (disorder), Hives, Shortness of breath, Swelling [facility] [place] (2 sources) predniSONE; Translations: [prednisone] Drug Allergy Dyspnea (finding) [facility] [place] (1 source) prednisoLONE Drug Allergy [facility] Repository (6 sources) Prednisone Propensity to adverse reactions 3 Itching [facility] Medications Current Medications Medication Drug Class(es) Dates Sig (Normalized) Sig (Original) [id number] 200 actuat albuterol 0.09 mg/actuat metered dose inhaler (6 sources) beta2-Adrenergic Agonist take 2 puff(s) by inhalation every six hours for wheezing albuterol HFA 90 mcg/act inhaler Inhale 2 puffs every 6 (six) hours if needed for shortness of breath or wheezing Active amitriptyline hydrochloride 100 mg oral tablet (8 sources) Tricyclic Antidepressant Start: 10-26-2023 End: 01-24-2024 take 0.5 tablet by mouth at bedtime amitriptyline (Elavil) 100 MG tablet Indications: Fibromyalgia Take 0.5 tablets (50 mg) by mouth at bedtime 45 tablet 1 10/26/2023 01/24/2024 Active Start: 01-22-2022 amitriptyline 100 mg oral tablet 50 mg = 0.5 tab(s), Oral, Once a day (at bedtime), Refills(s) 0 Start Date: 01/22/22 Status: Ordered take 1 tablet by aaron th at bedtime amitriptyline (Elavil) 50 MG tablet Take 50 mg by mouth at bedtime Active atorvastatin 20 mg oral tablet (7 sources) HMG-CoA Reductase Inhibitor Start: 05-18-2023 End: 12-24-2023 take 1 tablet by mouth at bedtime atorvastatin (Lipitor) 20 MG tablet Indications: Mixed hyperlipidemia (CMS/HCC) Take 1 tablet (20 mg) by mouth at bedtime 30 tablet 3 11/24/2023 12/24/2023 Active Start: 02-28-2023 End: 03-30-2023 take 1 tablet by mouth in the evening atorvastatin (Lipitor) 20 MG tablet Indications: Mixed hyperlipidemia (CMS/HCC) Take 1 tablet (20 mg) by mouth in the evening 30 tablet 2 02/28/2023 03/30/2023 Active 120 actuat budesonide 0.16 mg/actuat / formoterol fumarate 0.0048 mg/actuat / glycopyrrolate 0.009 mg/actuat metered dose inhaler (6 sources) Corticosteroid, beta2-Adrenergic Agonist Start: 09-29-2022 take 2 puff(s) by inhalation in the morning Breztri Aerosphere 160-9-4.8 MCG/ACT aerosol Inhale 2 puffs in the morning and 2 puffs before bedtime. 09/29/2022 Active bumetanide 0.5 mg oral tablet (3 sources) Loop Diuretic Start: 06-07-2023 bumetanide (Bumex) 0.5 MG tablet Indications: Bilateral lower extremity edema Take M W F only 9 tablet 1 06/07/2023 Active Start: 03-25-2023 End: 04-08-2023 take 1 tablet by mouth in the morning bumetanide (Bumex) 0.5 MG tablet Indications: Bilateral lower extremity edema Take 1 tablet (0.5 mg) by mouth in the morning for 14 days. 14 tablet 0 03/25/2023 04/08/2023 Active cholecalciferol 0.125 mg oral tablet (6 sources) Vitamin D cholecalciferol (Vitamin D-3) 125 MCG (5000 UT) tablet as directed Orally Active ibuprofen 800 mg oral tablet (6 sources) Nonsteroidal Anti-inflammatory Drug Start: 023 take 1 tablet by mouth every eight hours as needed ibuprofen 800 MG tablet Take 800 mg by mouth every 8 (eight) hours if needed 01/08/2023 Active lamoTRIgine 150 mg oral tablet (13 sources) Mood Stabilizer, Anti-epileptic Agent Start: 024 take 1 tablet by mouth once daily lamoTRIgine (LaMICtal) 150 MG tablet Take 150 mg by mouth Daily 05/04/2023 Active Start: 01-22-2022 take 1 tablet by aaron th once daily in the morning, then take 2 tablets by mouth once daily in the evening Lamictal 100 mg Tab 1 po QAM and 2 po QPM, Refills(s) 0 Start Date: 01/22/22 Status: Ordered take 1 tablet by aaron th at bedtime lamoTRIgine (LaMICtal) 200 MG tablet Take 200 mg by mouth at bedtime Active lamoTRIgine (Doll ICtal) 100 MG tablet Take 150 mg by mouth in the morning. In the morning . 0 Active lidocaine 0.05 mg/mg medicated patch [...] Refills(s) 0 Start Date: 01/22/22 Status: Ordered montelukast 10 mg oral tablet (1 source) Leukotriene Receptor Antagonist Start: 08-24-2023 take 1 tablet by mouth at bedtime montelukast (Singulair) 10 MG tablet Indications: COPD mixed type (CMS/HCC) Take 1 tablet (10 mg) by mouth at bedtime 90 tablet 1 08/24/2023 Active omeprazole 40 mg delayed release oral capsule (7 sources) Proton Pump Inhibitor Start: 10-26-2023 End: 01-24-2024 take 1 capsule by mouth once daily omeprazole (PriLOSEC) [address] capsule Indications: Gastro-esophageal reflux disease without esophagitis Take 1 capsule (40 mg) by mouth Daily 90 capsule 1 10/26/2023 01/24/2024 Active Start: 01-22-2022 take 1 capsule by mo uth once daily omeprazole 40 mg Cap-DR 40 mg = 1 cap(s), Oral, Daily, Refills(s) 0 Start Date: 01/22/22 Status: Ordered prazosin 2 mg oral capsule (7 sources) alpha-Adrenergic Lenora Start: 01-22-2022 take 1 capsule by mouth at bedtime prazosin 2 mg oral capsule 2 mg = 1 cap(s), Oral, Bedtime, Refills(s) 0 Start Date: 01/22/22 Status: Ordered pregabalin 100 mg oral capsule (7 sources) Start: 06-28-2023 take 1 capsule by mouth in the morning pregabalin (Lyrica) 100 MG capsule Indications: Fibromyalgia Take 1 capsule (100 mg) by mouth in the morning and 1 capsule (100 mg) before bedtime. 60 capsule 5 06/28/2023 Active Start: 01-06-2023 take 1 capsule by mo uth twice daily pregabalin (Lyrica) 100 MG capsule Indications: Fibromyalgia TAKE 1 CAPSULE BY MOUTH TWICE DAILY 60 capsule 5 01/06/2023 Active Start: 01-22-2022 take 1 capsule by mo uth twice daily pregabalin 100 mg Cap 100 mg = 1 cap(s), Oral, BID, Refills(s) 0 Start Date: 01/22/22 Status: Ordered propranolol hydrochloride 40 mg oral tablet (7 sources) beta-Adrenergic Lenora Start: 06-28-2023 take 1 tablet by mouth in the morning propranolol (Inderal) 40 MG tablet Indications: Personal history of other diseases of the nervous system and sense organs Take 1 tablet (40 mg) by mouth in the morning and 1 tablet (40 mg) before bedtime. 60 tablet 5 06/28/2023 Active Start: 01-06-2023 take 1 tablet by aaron th twice daily propranolol (Inderal) 40 MG tablet [...] Status: Ordered QUEtiapine 100 mg oral tablet (13 sources) Atypical Antipsychotic Start: 01-22-2022 SEROque l 100 mg Tab 1 tabs QAM and 4 tabs qpm, Refills(s) 0 Start Date: 01/22/22 Status: Ordered take 1 tablet by mouth at bedtim e QUEtiapine (SEROquel) 400 MG tablet Take 400 mg by mouth at bedtime Active simvastatin 40 mg oral tablet (1 source) HMG-CoA Reductase Inhibitor Start: 01-22-2022 take 1 tablet by mouth once daily at bedtime simvastatin 40 mg Tab 40 mg = 1 tab(s), Oral, Once a day (at bedtime), Refills(s) 0 Start Date: 01/22/22 Status: Ordered spironolactone 50 mg oral tablet (7 sources) Aldosterone Antagonist Start: 09-24-2023 take 1 tablet by mouth in the morning spironolactone (Aldactone) 50 MG tablet Indications: Localized edema Take 1 tablet (50 mg) by mouth in the morning. 30 tablet 5 09/24/2023 Active Start: 03-15-2023 End: 04-14-2023 take 1 tablet [...] Status: Ordered tiZANidine 4 mg oral tablet (7 sources) Central alpha-2 Adrenergic Agonist Start: 10-26-2023 End: 11-25-2023 take 1 tablet by mouth every eight hours for muscle spasms tiZANidine (Zanaflex) 4 MG tablet Indications: Fibromyalgia Take 1 tablet (4 mg) by mouth every 8 (eight) hours if needed for muscle spasms 90 tablet 5 10/26/2023 11/25/2023 Active Start: 01-22-2022 take 1 tablet by aaron th every eight hours as needed for muscle spasms tiZANidine 4 mg Tab 4 mg = 1 tab(s), Oral, q8hr, PRN Spasm, Refills(s) 0 Start Date: 01/22/22 Status: Ordered take 1 tablet by aaron th once daily tiZANidine (Zanaflex) 4 MG tablet Take 4 [...] Date Documented Da te Episodic/Chronic Anxiety disorders (7 sources) Mixed anxiety and depressive disorder; Translations: [Anxiety disorder, unspecified] Onset: 4 01-22-2022 Chronic Chronic obstructive pulmonary disease and bronchiectasis (14 sources) Chronic obstructive pulmonary disease, unspecified; Translations: [...] Onset: 3 Episodic Disorders of lipid metabolism (15 sources) Hyperlipidemia; Translations: [Hyperlipidemia, unspecified] Onset: 3 Resolved: 4 01-22-2022 Chronic Esophageal disorders (8 sources) Gastroesophageal reflux disease; Translations: [Gastro-esophageal reflux disease without esophagitis] Onset: 2 01-22-2022 Chronic Essential hypertension (20 sources) Essential hypertension; Translations: [Essential (primary) hypertension] Onset: 2 Resolved: 4 01-22-2022 Chronic Joint disorders and dislocations; trauma-related (12 sources) Derangement of left knee; Translations: [Unspecified internal derangement of left knee] Onset: 4 02-18-2023 Chronic Nutritional deficiencies (8 sources) Vitamin D deficiency; Translations: [Vitamin D deficiency, unspecified] Onset: 3 01-22-2022 Chronic Osteoarthritis (6 sources) Osteoarthritis of knee; Translations: [Osteoarthritis of knee, unspecified] Onset: 4 02-18-2023 Chronic Other connective tissue disease (1 source) Other muscle spasm; Translations: [OTHER MUSCLE SPASM] Onset: 3 Episodic Other ear and sense organ disorders (7 sources) Hearing loss; Translations: [Unspecified hearing loss, [...] Chronic Other nutritional; endocrine; and metabolic disorders (13 sources) Body mass index 40+ - severely obese; Translations: [Body mass index (BMI) 40.0-44.9, adult] Onset: 4 02-03-2022 Chronic Other nutritional; endocrine; and metabolic disorders (7 sources) Obesity; Translations: [Obesity, unspecified] Onset: 4 01-22-2022 Chronic Other nutritional; endocrine; and metabolic disorders (1 source) Obesity, unspecified; Translations: [OBESITY UNSPECIFIED] Onset: 3 Chronic Residual codes; unclassified (1 source) Sleep apnea, unspecified; Translations: [SLEEP APNEA UNSPECIFIED] Onset: 2 Chronic Residual codes; unclassified (1 source) Obstructive sleep apnea syndrome; Translations: [Obstructive sleep apnea (adult) (pediatric)] Onset: 4 05-13-2023 Chronic Spondylosis; intervertebral disc disorders; other back problems (10 sources) Spondylosis without myelopathy or radiculopathy, lumbar region; Translations: [Other intervertebral disc degeneration, lumbar region] Onset: 2 Chronic Substance-related disorders (9 sources) Nicotine dependence, cigarettes, uncomplicated; Translations: [Tobacco [...] Classification Problem Date Documented Da te Episodic/Chronic Deficiency and other anemia (7 sources) Acute megaloblastic anemia; Translations: [Other megaloblastic anemias, not elsewhere classified] Onset: 4 01-22-2022 Episodic E Codes: Adverse effects of medical drugs (1 source) Adverse effect of glucocorticoids and synthetic analogues, initial encounter; Translations: [ADVRS EFF GLUCOCORT SYN ANALOG INIT] Onset: 2 Episodic Headache; including migraine (13 sources) Migraine; Translations: [Migraine without aura] Onset: 3 Resolved: 4 01-22-2022 Chronic Mood disorders (1 source) Mood disorders Onset: 4 06-03-2023 Nutritional deficiencies (7 sources) Cobalamin deficiency; Translations: [Deficiency of other specified B group vitamins] Onset: 4 01-22-2022 Episodic Open wounds of extremities (12 sources) Open wound of left foot; Translations: [Unspecified open wound, left foot, initial encounter] Onset: 3 Resolved: 4 01-26-2023 Episodic Other aftercare (1 source) Other skilled nursing (current) drug therapy; Translations: [OTH WEED SCIENCE RESEARCH TECHNICIAN CURRENT DRUG THERAPY] Onset: 3 Episodic Other and unspecified benign neoplasm (1 source) Polyp of colon; Translations: [POLYP OF COLON] Onset: 3 Episodic Other and unspecified benign neoplasm (6 sources) Hyperplastic polyp of intestine; Translations: [Polyp of colon] Onset: 4 02-18-2023 Episodic Other bone disease and musculoskeletal deformities (7 sources) Osteopenia; Translations: [Other specified disorders of bone density and structure, unspecified site] Onset: 4 01-22-2022 Episodic Other connective tissue disease (13 sources) Fibromyalgia; Translations: [Fibromyalgia] Onset: 2 Resolved: 4 01-22-2022 Episodic Other connective tissue disease (1 source) Fibromyalgia; Translations: [FIBROMYALGIA] Onset: 3 Episodic Other gastrointestinal disorders (4 sources) Other fecal abnormalities; Translations: [OTHER FECAL ABNORMALITIES] Onset: 3 Episodic Other inflammatory condition of skin (4 sources) Pruritus, unspecified; Translations: [PRURITUS UNSPECIFIED] Onset: 2 Episodic Other liver diseases (6 sources) Aspartate aminotransferase serum level raised; Translations: [Elevated SGOT (AST)] Onset: 2 02-18-2023 Episodic Other lower respiratory disease (5 sources) Dyspnea; Translations: [Shortness of breath] Onset: 4 03-25-2023 Episodic Other non-traumatic joint disorders (7 sources) Pain in left knee; Translations: [Pain in joint, lower leg] Onset: 2 Resolved: 4 03-16-2023 Episodic Other nutritional; endocrine; and metabolic disorders (6 sources) Severe obesity; Translations: [Morbid (severe) obesity due to excess calories] Onset: 3 Resolved: 4 01-26-2023 Chronic Other screening for suspected conditions (not mental disorders or infectious disease) (13 sources) Stool DNA-based colorectal cancer screening positive; Translations: [Other fecal abnormalities] Onset: 2 02-03-2022 Episodic Other skin disorders (6 sources) Decorative tattoo; Translations: [Other specified disorders of pigmentation] Onset: 2 Resolved: 4 03-16-2023 Episodic Other upper respiratory infections (6 sources) Acute sinusitis; Translations: [Other acute sinusitis] Onset: 3 Resolved: 4 03-16-2023 Episodic Residual codes; unclassified (7 sources) Edema of lower extremity; Translations: [Localized edema] Onset: 4 Resolved: 4 01-22-2022 Episodic Residual codes; unclassified (7 sources) Tobacco user; Translations: [Tobacco use] Onset: 4 Resolved: 4 01-22-2022 Episodic Residual codes; unclassified (1 source) Acquired absence of both cervix and uterus; Translations: [ACQUIRED ABSENCE BOTH CERVIX AND UTERUS] Onset: 3 Episodic Residual codes; unclassified (1 source) Tobacco use; Translations: [TOBACCO USE] Onset: 2 Episodic Residual codes; unclassified (1 source) Insomnia, unspecified; Translations: [INSOMNIA UNSPECIFIED] Onset: 2 Episodic Residual codes; unclassified (10 sources) Bilateral lower limb edema; Translations: [Localized edema] Onset: 3 03-16-2023 Episodic Residual codes; unclassified (6 sources) Exposure to carbon monoxide; Translations: [Contact with and (suspected) exposure to other hazardous substances] Onset: 4 Resolved: 4 03-16-2023 Episodic Residual codes; unclassified (5 sources) Edema of right lower limb; Translations: [Localized edema] Onset: 4 03-25-2023 Episodic Screening and history of mental health and substance abuse codes (6 sources) Tobacco use and exposure - finding; Translations: [Personal history of nicotine dependence] Onset: 2 Resolved: 4 03-16-2023 Episodic Spondylosis; intervertebral disc disorders; other back problems (7 sources) Chronic low back pain; Translations: [Chronic lumbar pain] Onset: 4 01-22-2022 Episodic Unclassified (1 source) LOW BACK PAIN, UNSPECIFIED; Translations: [LOW BACK PAIN, UNSPECIFIED] Onset: 3 Unclassified (1 source) CONTACT W/AND (SUSP) EXPOS COVID-19; Translations: [CONTACT W/AND (SUSP) EXPOS COVID-19] Onset: 3 Results Test Name Value Interpretation Reference Range Facility BLOOD GASES BTYon 07-08-2022 02 [address] AIR Normal [facility] Comment on above: Performed By: #### A BG ####[facility] N[address] [place], [place] [address]Dr. Phani El ALLENS TEST Positive Normal [facility] Comment on above: Performed By: #### A BG ####[facility] [address] [place], [place] [address]Dr. Phani El Base excess Calc (Bld) [Moles/Vol] 1.4 mmol/L Normal -2.0-2.0 [facility] Comment on above: Performed By: #### A BG ####[facility] [address] [place], [place] [address]Dr. Phani El BIPAP PRESSURE Normal [facility] Comment on above: Performed By: #### A BG ####[facility] I[address] [place], [place] [address]Dr. Phani El CPAP Normal [facility] Comment on above: Performed By: #### A BG ####[facility] Kjdy[address] [place], [place] [address]Dr. Phani El FIO[address] [facility] Comment on above: Performed By: #### A BG ####[facility] [address] [place], [place] [address]Dr. Phani El HCO3 (Bld) [Moles/Vol] 26.2 mmol/L Critically high 22.0-26.0 [facility] Comment on above: Performed By: #### A BG ####[facility] [address] [place] [address]Dr. Phani El LPM Normal [facility] Comment on above: Performed By: #### A BG ####[facility] [address] [place] [address]Dr. Phani El MINUTE VOLUME Normal [facility] Comment on above: Performed By: #### A BG ####[facility] [address] [place] [address]Dr. Phani El Oxygen (Bld) [Partial pressure] 56.1 mm[Hg] Critically low 80.0-100.0 [facility] Comment on above: Performed By: #### A BG ####[facility] [address] [place], [place] [address]Dr. Phani El Oxygen saturation in Blood 92.0 % Critically low 95.0-100.0 [facility] Comment on above: Performed By: #### A BG ####[facility] [address] [place], [place] [address]Dr. Phani El PCO2 42.6 mmHg Normal 35.0-45.0 [facility] Comment on above: Performed By: #### A BG ####[facility] [address] [place], [place] [address]Dr. Phani El PEEP [facility] Comment on above: Performed By: #### A BG ####[facility] [address] [place], [place] [address]DrCindy El pH (Bld) 7.398 [pH] Normal 7.350-7.450 [facility] Comment on above: Performed By: #### A BG ####[facility] [address] [place] [address]DrCindy El PIP [facility] Comment on above: Performed By: #### A BG ####[facility] [address] [place] [address]Dr. Phani El PS [facility] Comment on above: Performed By: #### A BG ####[facility] Q[address] [place], [place] [address]Dr. Phani El PUNCTURE SITE RR Normal [facility] Comment on above: Performed By: #### A BG ####[facility] [address] [place] [id number]. Phani El RATE Normal [facility] Comment on above: Performed By: #### A BG ####[facility] [address] [id number]. Phani El VENT MODE Normal [facility] Comment on above: Performed By: #### A BG ####[facility] [address] [id number]. Phani El [place] Normal [facility] Comment on above: Performed By: #### A BG ####[facility] [address] [id number]. Loryzach El ECHOCARDIO M/2D COMPLETEon 0 07-08-2022 ECHOCARDIO M/2D COMPLETE Patient: FRANKY SRINIVASAN I. Exam Date: 07/08/2022 : 1965 Gender:F Ordering : DR. MAGDALENA DOWNING . Admission #: [id number] Family : MEREDITH [employer] DESIGN LEAD Order #: [id number] CLICK HERE TO VIEW EXAM ECHOCARDIOGRAM REPORT [...] Garcia M.D. on 07/08/2022 at 18:[address] [facility] CT LUNG CANCER SCREENINGon 0 05-29-2022 [...] in 1 year. Electronically authenticated by: MELISSA MORINCINTIASARITA Date: 2022-05-29 09:36 Normal [facility] CBC AUTO DIFFon 05-05-2022 BASO # 0.1 103/ul Normal 0.0-0.1 [facility] Comment on above: Performed By: #### C BC #### [facility] [address] [address] [address] Phani El Basophils/100 WBC (Bld) 0.8 % Normal 0.2-2.0 [facility] Comment on above: Performed By: #### C BC #### [facility] [address] [address] [address] Phani El EO # 0.1 103/ul Normal 0.0-0.7 [facility] Comment on above: Performed By: #### C BC #### [facility] [address] [place] [address] Dr. Phani El Eosinophils/100 WBC (Bld) 2.0 % Normal 0.9-7.0 [facility] Comment on above: Performed By: #### C BC #### [facility] [address] [place] [address] Dr. Phani El Erythrocyte distribution width (RBC) [Ratio] 14.0 % Normal 11.0-15.0 [facility] Comment on above: Performed By: #### C BC #### [facility] [address] [place] [address] Dr. Phani El Hematocrit (Bld) [Volume fraction] 48.7 % Critically high 36.0-48.0 [facility] Comment on above: Performed By: #### C BC #### [facility] [address] [place] [address] Dr. Phani El Hemoglobin (Bld) [Mass/Vol] 15.9 g/dL Normal 12.0-16.0 [facility] Comment on above: Performed By: #### C BC #### [facility] [address] [place] [address] Dr. Phani El IG # 0.05 10e3/ul Critically high 0.00-0.03 [facility] Comment on above: Performed By: #### C BC #### [facility] [address] [address] [address] Phani El IG % 0.8 % Critically high 0.0-0.5 [facility] Comment on above: Performed By: #### C BC #### [facility] [address] [place] [address] Dr. Phani El LYMPH # 1.9 103/ul Normal 1.2-3.8 [facility] Comment on above: Performed By: #### C BC #### [facility] [address] [place] [address] Dr. Phani El Lymphocytes/100 WBC (Bld) 30.1 % Normal 20.5-60.0 [facility] Comment on above: Performed By: #### C BC #### [facility] [address] [place] [address] Dr. Phani El MANUAL DIFF REQ NO Normal [facility] Comment on above: Performed By: #### C BC #### [facility] [address] [place] [address] Dr. Phani El MCH (RBC) [Entitic mass] 32.9 pg Normal 26.7-34.0 [facility] Comment on above: Performed By: #### C BC #### [facility] [address] [place] [address] Dr. Phani El MCHC (RBC) [Mass/Vol] 32.6 g/dL Normal 29.9-35.2 [facility] Comment on above: Performed By: #### C BC #### [facility] [address] [place] [address] Dr. Phani El MCV (RBC) [Entitic vol] 100.8 fL Critically high 81.0-99.0 [facility] Comment on above: Performed By: #### C BC #### [facility] [address] [place] [address] Dr. Phani El MONO # 0.5 103/ul Normal 0.3-0.8 [facility] Comment on above: Performed By: #### C BC #### [facility] [address] [place] [address] Dr. Phani El Monocytes/100 WBC (Bld) 7.2 % Normal 1.7-12.0 [facility] Comment on above: Performed By: #### C BC #### [facility] [address] [place] [address] Dr. Phani El NEUT # 3.8 103/ul Normal 1.4-6.5 [facility] Comment on above: Performed By: #### C BC #### [facility] [address] [place] [address] Dr. Phani El Neutrophils/100 WBC (Bld) 59.1 % Normal 43.0-75.0 [facility] Comment on above: Performed By: #### C BC #### [facility] [address] [place] [address] Dr. Phani El Platelet mean volume (Bld) [Entitic vol] 11.0 fL Normal 9.5-13.5 [facility] Comment on above: Performed By: #### C BC #### [facility] [address] [place] [address] Dr. Phani El PLT 167 103/ul Normal 150-450 [facility] Comment on above: Performed By: #### C BC #### [facility] [address] [place] [address] Dr. Phani El RBC 4.83 106/ul Normal 4.20-5.40 [facility] Comment on above: Performed By: #### C BC #### [facility] [address] [place] [address] Dr. Phani El WBC 6.4 103/ul Normal 4.0-11.0 [facility] Comment on above: Performed By: #### C BC #### [facility] [address] [place] [address] Dr. Phani El GLYCOHEMOGLOBIN A1Con 2022 ADA RECOMMENDATION SEE BELOW Normal [facility] Comment on above: Result Comment: ADA RECOMMENDED LIMIT 4.0 - 6.0 ADA THERAPEUTIC TARGET < 7.0 ACTION SUGGESTED > 7.0 Performed By: #### A 1C ####[facility] [address] [place], [place] [address]FrDr. Phani El Glucose [Mass/Vol] 114 mg/dL Normal [facility] Comment on above: Performed By: #### A 1C ####[facility] [address] [place], [place] [address]ObDr. Phani El HbA1c (Bld) [Mass fraction] 5.6 % Normal 4.5-6.2 [facility] Comment on above: Performed By: #### A 1C ####[facility] [address] [place], [place] [address]YpDr. Phani El LIPID PROFILEon 05-05-2022 CHOL-HDL RATIO NORM SEE BELOW Normal [facility] Comment on above: Result Comment: 3.3 - 4.4 LOW RISK 4.4 - 7.1 AVERAGE RISK 7.1 - 11.0 MODERATE RISK >11.0 HIGH RISK Performed By: #### C MP, LIPID #### [facility] [address] [address] [address] Phani El Cholesterol [Mass/Vol] 178 mg/dL Normal <=200 [facility] Comment on above: Performed By: #### C MP, LIPID #### [facility] [address] [address] [address] Phani El Cholesterol in HDL [Mass/Vol] 54 mg/dL Normal 40-60 [facility] Comment on above: Performed By: #### C MP, LIPID #### [facility] [address] [address] [address] Phani El Cholesterol in LDL [Mass/Vol] 86.6 mg/dL Normal [facility] Comment on above: Performed By: #### C MP, LIPID #### [facility] [address] [address] [address] Phani El Cholesterol.total/Ch olesterol in HDL [Mass ratio] 3.3 {ratio} Normal [facility] Comment on above: Performed By: #### C MP, LIPID #### [facility] [address] [address] [address] Phani El HDL NORMAL > or = 60 mg/dl - LO W CARDIOVASCULAR RISK <40 mg/dl - HIGH CARDIOVASCULAR RISK Normal [facility] Comment on above: Performed By: #### C MP, LIPID #### [facility] [address] [address] [address] Phani El LDL CALC NORMAL SEE BELOW Normal [facility] Comment on above: Result Comment: <100 mg/dl OPTIMAL 100 - 129 mg/dl NEAR OR ABOVE OPTIMAL 130 - 159 mg/dl BORDERLINE HIGH 160 - 189 mg/dl HIGH >190 mg/dl VERY HIGH Performed By: #### C MP, LIPID #### [facility] [address] [place], [place] [address] Dr. Phani El Triglyceride [Mass/Vol] 187 mg/dL Critically high <=150 [facility] Comment on above: Performed By: #### C MP, LIPID #### [facility] [address] [address] [address] Phani El VLDL CALC 37.4 mg/dL Normal [facility] Comment on above: Performed By: #### C MP, LIPID #### [facility] [address] [address] [address] Phani El PROF 14(COMP METB)on 023 Albumin [Mass/Vol] 3.6 g/dL Normal 3.4-5.0 [facility] Comment on above: Performed By: #### C MP, LIPID ####[facility] [address] [id number] El Albumin/Globulin [Mass ratio] 1.1 {ratio} Normal [facility] Comment on above: Performed By: #### C MP, LIPID ####[facility] [address] [place], [place] [address]GrCindy El ALP [Catalytic activity/Vol] 91 U/L Normal 46-116 [facility] Comment on above: Performed By: #### C MP, LIPID ####[facility] [address] [id number]. Phani El ALT [Catalytic activity/Vol] 34 U/L Normal 14-59 [facility] Comment on above: Performed By: #### C MP, LIPID ####[facility] [address] [id number]. Phani El Anion gap [Moles/Vol] 11.6 mmol/L Normal [facility] Comment on above: Performed By: #### C MP, LIPID ####[facility] [address] [id number]. Phani El AST [Catalytic activity/Vol] 18 U/L Normal 15-37 [facility] Comment on above: Performed By: #### C MP, LIPID ####[facility] [address] [id number]. Phani El Bilirubin [Mass/Vol] 0.6 mg/dL Normal 0.2-1.0 [facility] Comment on above: Performed By: #### C MP, LIPID ####[facility] [address] [address]Dr. Phani El Calcium [Mass/Vol] 9.2 mg/dL Normal 8.5-10.1 [facility] Comment on above: Performed By: #### C MP, LIPID ####[facility] [address] [id number]. Phani El Chloride [Moles/Vol] 106 mmol/L Normal 98-107 [facility] Comment on above: Performed By: #### C MP, LIPID ####[facility] [address] [id number]. Phani El CO2 [Moles/Vol] 32.3 mmol/L Critically high 21.0-32.0 [facility] Comment on above: Performed By: #### C MP, LIPID ####[facility] [address] [id number]. Phani El Creatinine [Mass/Vol] 1.04 mg/dL Critically high 0.55-1.02 [facility] Comment on above: Performed By: #### C MP, LIPID ####[facility] [address] [id number]. Phani El EGFR-AF SAO TOMEAN >60 Normal >=60 [facility] Comment on above: Performed By: #### C MP, LIPID ####[facility] [address] [address]Dr. Phani lE EGFR-NON AF SAO TOMEAN 54 mL/min/1.73m2 Critically low >=60 [facility] Comment on above: Performed By: #### C MP, LIPID ####[facility] [address] [id number]. Phani El Globulin (S) [Mass/Vol] 3.4 g/dL Normal [facility] Comment on above: Performed By: #### C MP, LIPID ####[facility] [address] [address] [address]Dr. Phani El Glucose [Mass/Vol] 124 mg/dL Critically high 74-106 [facility] Comment on above: Performed By: #### C MP, LIPID ####[facility] [address] [address]Dr. Phani Nikko Potassium [Moles/Vol] 3.9 mmol/L Normal 3.5-5.1 [facility] Comment on above: Performed By: #### C MP, LIPID ####[facility] [address] [place], [place] [address]Dr. Phani Nikko Protein [Mass/Vol] 7.0 g/dL Normal 6.4-8.2 [facility] Comment on above: Performed By: #### C MP, LIPID ####[facility] [address] [address]Dr. Phani El Sodium [Moles/Vol] 146 mmol/L Critically high 136-145 [facility] Comment on above: Performed By: #### C MP, LIPID ####[facility] [address] [address]Dr. Phani El Urea nitrogen [Mass/Vol] 14.0 mg/dL Normal 7.0-18.0 [facility] Comment on above: Performed By: #### C MP, LIPID ####[facility] [address] [address]Dr. Phani Nikko Urea nitrogen/Creatinine [Mass ratio] 13.5 mg/mg Normal [facility] Comment on above: Performed By: #### C MP, LIPID ####[facility] [address] [place], [place] [address]NkDr. Phani El VITAMIN B12on 05-05-2022 Cobalamin (Vitamin B12) [Mass/Vol] 321.0 pg/mL Normal 193.0-986.0 [facility] Comment on above: Performed By: #### V ITAD, VITB12 #### [facility] [address] [place], [place] [address] Dr. Phani El VITAMIN D 25 OHon 05-05-2022 VIT D 25-OH 58.7 ng/mL Normal [facility] Comment on above: Performed By: #### V ITAD, VITB12 #### [facility] [address] [place], [place] [address] Dr. Phani lE VIT D RANGES SEE BELOW Normal [facility] Comment on above: Result Comment: <20 ng/mL Vit D deficient 20 - <30 ng/mL Vit D insufficient 30 - 100 ng/mL Vit D sufficient >100 ng/mL Potential Toxicity Performed By: #### V ITAD, VITB12 #### [facility] [address] [address] [address] Phani El XR CHEST 2 Von [...] Date: 2022-05-05 10:05 Normal [facility] Ambulatory Visit Summaryon 0 03-24-2022 Ambulatory [...] B12 deficiency Vitamin D deficiency Normal [facility] General Surgery Office/Clini c Noteon 03-24-2022 [...] - Not Given Patient Refuses Normal [facility] Comment on above: Result Comment: Elec tronically Signed By: NABIL AMADOR, Bryson Steinberg\Date and Time Signed: 03/24/22 13:12 EST Reminderson 03-24-2022 Reminders - From: Kristine Harrison LPN To: N - Clinical; Sent: 03/24/2022 13:05:34 EST Show up: 01/26/2032 07:00:00 EST Subject: colonoscopy recall Due Date/Time: 02/26/2032 07:00:00 EST Reminder/Recall Patient is due for screening colonoscopy 02/26/2032. Normal [facility] Covid-19 PCR ([facility])on 02-10 SARS-CoV-2 (COVID-19) RNA MARISOL+probe Ql (Unsp spec) Detected Abnormal NOT DETECTED [facility] Comment on above: Result Comment: This test is not yet approved or cleared by the [place] FDA. When there are no FDA-approved or cleared tests available, and other criteria are met, FDA can make tests available under an emergency access mechanism called an Emergency Use Authorization (EUA). The EUA for this test is supported by the [place] of Health and Human Service's (HHS's) declaration [...] used). Performed By: #### C VDTBH #### [facility] [address] [place], [place] [address] Dr. Phani El INFLUENZA A AND B AGon 03-10 INFLUANEGH SEE BELOW Normal [facility] Comment on above: Result Comment: Nega tive for Flu A protein angiten. Infection due to Flu A cannot be ruled out. Flu A angiten in the sample may be below the detection limit of the test. Performed By: #### I NFLUAB ####[facility] [address] [place], [place] [address]Lu. Phani El INFLUBNEGH SEE BELOW Normal [facility] Comment on above: Result Comment: Nega tive for Flu B protein antigen. Infection due to Flu B cannot be ruled out. Flu B antigen in the sample may be below the detection limit of the test. Performed By: #### I NFLUAB ####[facility] [address] [place], [place] [address]Jd. Phani El INFLUENZA A AG Negative Normal NEGATIVE SEE COMMENT [facility] Comment on above: Performed By: #### I NFLUAB ####[facility] [address] [place], [place] [address]Ga. Phani El INFLUENZA B AG Negative Normal NEGATIVE SEE COMMENT [facility] Comment on above: Performed By: #### I NFLUAB ####[facility] [address] [place], [place] [address]Or. Phani El Covid-19 PCR (CVDTB)on 02-09 SARS-CoV-2 (COVID-19) RNA MARISOL+probe Ql (Unsp spec) Detected Abnormal NOT DETECTED [facility] Comment on above: Result Comment: This test is not yet approved or cleared by the [place] FDA. When there are no FDA-approved or cleared tests available, and other criteria are met, FDA can make tests available under an emergency access mechanism called an Emergency Use Authorization (EUA). The EUA for this test is supported by the [place] of Health and Human Service's declaration that [...] used). Performed By: #### C VDTBH #### [facility] [address] [place], [place] [address] Dr. Phani El Pathology Noteon 02-27-2022 Pathology Note [id number] 0CD:127 Normal [facility] Outside Colonoscopyon 2022 Outside Colonoscopy [id number] 0CD:127 Normal [facility] Reminderson 02-26-2022 Reminders - From: Kristine Harrison LPN To: Kristine Harrison LPN; Sent: 02/26/2022 11:14:25 EST Show up: 05/18/2022 07:00:00 EDT Subject: Ambulatory Reminder Due Date/Time: 05/27/2022 07:00:00 EDT Reminder/Recall log in to extra lap top in [place] to keep account active Normal [facility] Lab Reportson 02-23-2022 Lab Reports [id number] 0CD:127 Normal [facility] Covid-19 PCR (CVDTB)on 02-08 SARS-CoV-2 (COVID-19) RNA MARISOL+probe Ql (Unsp spec) Not detected Normal NOT DETECTED [facility] Comment on above: Result Comment: This test is not yet approved or cleared by the [place] FDA. When there are no FDA-approved or cleared tests available, and other criteria are met, FDA can make tests available under an emergency access mechanism called an Emergency Use Authorization (EUA). The EUA for this test is supported by the [employer] of Health and Human Service's (HHS's) [...] consistent with SARS-CoV-2. Performed By: #### C [facility] ####[facility] [address] [place], [place] [address]Dr. Phani El Pre-Certification Formon Pre-Certification Form [id number] 00CD:127 Normal [facility] Consent for Procedure/Surger yon 02-05-2022 Consent for Procedure/Surgery [id number] 0CD:127 Normal [facility] Formson 02-05-2022 Forms [id number] 0CD:127 Normal [facility] Physician Referralon 022 Physician Referral [id number]:127 Normal [facility] MRI Knee w/o Lefton 12-26-19 MRI Knee [...] by Jason Sanchez on 12/25/2021 1505 Normal [facility] Pipe Insulator MRI LSPINE WO CONon 12-05-19 MRI LSPINE [...] by: NADINE GRANT Date: 2021-12-04 17:[address] [facility] XR LSPINE 2_3 VIEWSon 2021 XR [...] by: NADINE GRANT Date: 2021-09-30 07:[address] [facility] MRI Knee w/o Lefton 07-30-19 22 [...] by Robby Diaz on 07/30/2021 1316 Normal [facility] Specialist Vital Signs Date Time Vital Sign Value Performing Clinician Facility 03-25-2023 13:13-0500 Body height 165.1 cm Jaymie Phoenix [employer] Work Phone: [facility] 03-25-2023 13:13-0500 Body mass index (BMI) [Ratio] 42.9 kg/m2 Jaymie Phoenix [employer]PER[employer] Work Phone: [facility] 03-25-2023 13:13-0500 Body temperature 97.5 [degF] Jaymie Phoenix [employer] SUPERVISOR Work Phone: [facility] 03-25-2023 13:13-0500 Body weight 116.94 kg Jaymie Phoenix [employer]PER[employer]OR Work Phone: [facility] 03-25-2023 13:13-0500 Diastolic blood pressure 68 mm[Hg] Jaymie Phoenix [employer] SUPER[employer]OR Work Phone: [facility] 03-25-2023 13:13-0500 Heart rate 71 /min Jaymie Phoenix [employer] SUPER[employer]OR Work Phone: [facility] 03-25-2023 13:13-0500 Respiratory rate 20 /min Jaymie Phoenix [employer]PER[employer]OR Work Phone: [facility] 03-25-2023 13:13-0500 SaO2% (BldA) [Mass fraction] 95 % Jaymie Phoenix [employer] SUPER[employer]OR Work Phone: [facility] 03-25-2023 13:13-0500 Systolic blood pressure 108 mm[Hg] Jaymie Phoenix [employer] SUPERVISOR Work Phone: [facility] 03-16-2023 13:35-0500 Body height 165.1 cm Jaymie Phoenix [employer] SUPER[employer]OR Work Phone: [facility] 03-16-2023 13:35-0500 Body mass index (BMI) [Ratio] 41.6 kg/m2 Jaymie Phoenix [employer] SUPER[employer]OR Work Phone: [facility] 03-16-2023 13:35-0500 Body temperature 98.4 [degF] Jaymie Phoenix [employer] SUPERVISOR Work Phone: [facility] 03-16-2023 13:35-0500 Body weight 113.4 kg Jaymie Phoenix [employer] SUPER[employer]OR Work Phone: [facility] 03-16-2023 13:35-0500 Diastolic blood pressure 72 mm[Hg] Jaymie Phoenix [employer] SUPER[employer]OR Work Phone: [facility] 03-16-2023 13:35-0500 Heart rate 77 /min Jaymie Phoenix [employer] SUPER[employer]OR Work Phone: [facility] 03-16-2023 13:35-0500 Respiratory rate 18 /min Jaymie Phoenix [employer] SUPERVISOR Work Phone: [facility] 03-16-2023 13:35-0500 SaO2% (BldA) [Mass fraction] 95 % Jaymie Phoenix [employer] SUPERVISOR Work Phone: [facility] 03-16-2023 13:35-0500 Systolic blood pressure 112 mm[Hg] Jaymie Phoenix [employer] SUPERVISOR Work Phone: [facility] 02-03-2022 13:27-0500 Blood Pressure Location Bryson SAMPSON [facility] 02-03-2022 13:27-0500 Diastolic blood pressure 80 mm[Hg] Bryson SAMPSON [facility] 02-03-2022 13:27-0500 Heart rate 72 /min Bryson SAMPSON [facility] 02-03-2022 13:27-0500 Respiratory rate 16 /min Bryson SAMPSON [facility] [place] 02-03-2022 [id number] Systolic blood pressure 126 mm[Hg] Bryson SAMPSON [facility] [place] Encounters Encounter Date Encounter Type Care Provider Facility Start: 12-21-2023 ambulatory Alphonse Patton acility:[facility] Start: 11-24-2023 End: 11-24-2023 Refill Jaymie Aicaminaz [employer] Work Phone: [facility] Comment on above: Mixed hyperlipidemia (CMS/HCC) Start: 06-03-2023 End: 06-03-2023 ambulatory JAYMIE AICHHOLZ Not Available Start: 06-03-2023 Patient encounter procedure Jaymie Aichholz [employer] Work Phone: [facility] Start: 05-13-2023 End: 05-13-2023 ambulatory JAYMIE AICHHOLZ Not Available Start: 04-26-2023 End: 04-26-2023 ambulatory JAYMIE AICHHOLZ Not Available Start: 03-25-2023 End: 03-25-2023 ambulatory JAYMIE AICHHOLZ Not Available Start: 03-25-2023 Bamboo flowsheet Jaymie Aichholz [employer] SUPER[employer]OR Work Phone: [facility] Start: 03-25-2023 Bamboo flowsheet Jaymie Aichholz [employer] SUPERVISOR Work Phone: [facility] Start: 03-25-2023 End: 03-25-2023 Office outpatient visit 25 minutes Jaymie Aichholz [employer]PER[employer]OR Work Phone: [facility] Comment on above: Edema of right lower extremity (Primary Dx); BMI 40.0-44.9, adult (CMS/HCC); Shortness of breath; COPD mixed type (CMS/HCC); Primary hypertension (CMS/HCC); Bilateral lower extremity edema Start: 03-16-2023 End: 03-16-2023 ambulatory JAYMIE AICHHOLZ Not Available Start: 03-16-2023 End: 03-16-2023 Office outpatient visit 25 minutes Jaymie Aichholz [employer]AL HANGING SUPERVISOR Work Phone: [facility] Comment on above: COPD mixed type (CMS /HCC) (Primary Dx); Tobacco dependence; BMI 40.0-44.9, adult (CMS/HCC); Body mass index [BMI] 40.0-44.9, adult (Z68.41); Primary hypertension (CMS/HCC); Bilateral lower extremity edema Start: 01-26-2023 End: 01-26-2023 ambulatory JAYMIE GATICASANDRAHomer Not Available Start: 07-08-2022 ambulatory MEREDITH PHOENIX Facil ity:H1 Start: 05-29-2022 End: 05-30-2022 ambulatory MEREDITH PHOENIX Facility:H1 Start: 05-05-2022 End: 05-06-2022 ambulatory MEREDITH GATICASANDRAHomer Facility:H1 Start: 04-30-2022 End: 05-01-[address] JIM ALLAN . Facility:H1 Start: 03-31-2022 End: 03-31-[address] JIM ALLAN . Facility:H1 Start: 03-27-[address] JIM ALLAN . Faci lity:H1 Start: 03-24-2022 End: 03-25-2022 ambulatory Bryson SAMPSON Facility:[facility] Start: 03-17-2022 ambulatory Bryson SAMPSON Facility :[facility] Start: 03-10-2022 End: 03-10-2022 ambulatory MEREDITH JAYMEI MADDYAscencionSANDRAHomer Facility:H1 Start: 03-02-2022 Encounter for preprocedural laboratory examination DR JIM ALLAN . [facility] Start: 02-28-2022 End: 03-01-2022 Encounter for preprocedural laboratory examination MEREDITH PHOENIX Facility:H1 Start: 02-28-2022 End: 03-01-2022 ambulatory MEREDITH PHOENIX Facility:H1 Start: 02-25-2022 End: 02-26-2022 ambulatory Bryson SAMPSON Facility:[id number] Start: 02-21-2022 End: 02-22-[address] BRYSON SAMPSON . Facility:H1 Start: 02-06-2022 End: 02-07-2022 ambulatory JENNY THORNE . Facility:H1 Start: 02-03-2022 End: 02-04-2022 ambulatory Tracy Saldaña Maddyascencionsandrahomer Facility:[facility] Start: 02-03-2022 End: 02-03-2022 Patient encounter procedure Bryson SAMPSON General [facility] Start: 01-13-2022 End: 01-13-[address] JIM ALLAN . Facility:H1 Start: 01-08-2022 End: 01-09-[address] JIM ALLAN . Facility:[facility]1 Start: 01-06-2022 ambulatory Bryson SAMPSON Facility : [facility] Start: 12-23-2021 End: 12-23-[address] JIM ALLAN . Facility:H1 Start: 12-09-2021 End: 12-10-[address] JIM ALLAN . Facility:H1 Start: 12-04-2021 End: 12-05-2021 ambulatory DESIGN LEAD JAYMIE PHOENIX Facility:H1 Start: 12-03-2021 End: 12-03-2021 ambulatory GLENROY BOWERS . Facility:H1 Start: 10-10-2021 End: 10-30-2021 ambulatory MR DEMETRIUS MENDEZ . Facility:H1 Start: 09-29-2021 End: 09-30-2021 ambulatory MEREDITH HOLCOMB ROMI Facility:H1 Start: 09-20-2021 End: 09-20-2021 ambulatory GLENROY BOWERS . Facility: Procedures Date Procedure Procedure Detail Performing Clinician Start: 03-25-2023 Mammography Jaymie Danette kohler [employer] SUPER[employer]OR Work Phone: Start: 02-25-2022 Colonoscopy Jaymie Danette kohler [employer]ANG[employer] SUPERVISOR Work Phone: section Bryson Saldaña Ligation of fallopian tube Leslie delacruz [place] Repair of meniscus Bryson HOWELL Total abdominal hysterectomy with bilateral salpingo-oophorectomy Bryson SAMPSON Plan of Treatment Date Care Activity Detail Author Start: 02-26-2032 Screening for malign ant neoplasm of colon [facility] Start: 12-26-2024 Screening for malign ant neoplasm of colon FIT-DNA [facility] Start: 06-02-2024 Medicare Annual Well ness (AWV) Medicare Annual Wellness (AWV) [facility] Start: 03-25-2024 Screening for malign ant neoplasm of breast Mammogram [facility] Start: 10-10-2023 Influenza vaccination Influenza Vacc ine (#1) [facility] Start: 08-08-2023 Influenza vaccination Influenza Vacc ine (#1) [facility] Comment on above: Postponed from 10/09 (Patient Refused) Start: 04-06-2023 End: 04-06-2023 Patient encounter procedure 04/06/2023 1:40 PM EST Office Visit [facility] [address] [place] [phone] Jaymie Phoenix, METAL HANGING SUPERVISOR [address] [place] [phone] [facility] Start: 03-25-2023 End: 03-25-2024 CBC W Auto Differential panel - Blood CBC and differential Lab Routine Edema of right lower extremity Expected: 03/25/2023 (Approximate), Expires: 03/25/2024 [facility] Comment on above: Expected: 03/25/2023 (Approximate), Expires: 03/25/2024 Start: 03-25-2023 End: 03-25-2024 Comprehensive metabolic 2000 panel - Serum or Plasma Comprehensive metabolic panel Lab Routine Edema of right lower extremity Expected: 03/25/2023 (Approximate), Expires: 03/25/2024 [facility] Comment on above: Expected: 03/25/2023 (Approximate), Expires: 03/25/2024 Start: 03-25-2023 End: 03-25-2024 Fibrin D-dimer FEU [Mass/volume] in Platelet poor plasma D-dimer, quantitative Lab Routine Edema of right lower extremity Expected: 03/25/2023 (Approximate), Expires: 03/25/2024 [facility] Comment on above: Expected: 03/25/2023 (Approximate), Expires: 03/25/2024 Start: 03-25-2023 End: 03-25-2024 US.doppler Lower extremity vein - right Vascular US lower extremity venous duplex right Imaging STAT Edema of right lower extremity Expected: 03/25/2023, Expires: 03/25/2024 [facility] Work Phone: Comment on above: Expected: 03/25/2023 , Expires: 03/25/2024 Start: 03-25-2023 End: 03-25-2024 XR Chest 2 Views XR chest 2 views Imaging Routine Edema of right lower extremity Shortness of breath Expected: 03/25/2023, Expires: 03/25/2024 [facility] Comment on above: Expected: 03/25/2023 , Expires: 03/25/2024 Start: 08-16-1993 Screening for malign ant neoplasm of cervix HPV/Cotest [facility] Start: 08-16-1984 Screening for malign ant neoplasm of cervix Pap Smear [facility] Start: 1965 Medicare Annual Well ness (AWV) Medicare Annual Wellness (AWV) [facility] Start: 1965 Screening for malign ant neoplasm of colon [facility] Immunizations Immunization Date Immunization Notes Care Provider Fa jack 06-14-2020 Kelly SARS-CoV-2 Jaymie ramirez NP Work Phone: [facility] NEGATED: Highlighted row has not occurred!02-03-2022 influenza virus vaccine, unspecified formulation Bryson SAMPSON General [facility] [place] Payers Date Payer Category Payer Self-pay 2021 Medicaid [employer] MEDICARE A DVANTAGE [id number] 2021 Medicare A[employer] MEDICARE A DVANTAGE AETNA MEDICARE REPLACEMENT [id number] 2021-Present [address] [place] [address] [id number] 1963 Unknown [id number] 2.16.840.1.097662.3.579.2. 72 1963 Unknown [id number] 2.16.840.1.096851.3.579.2 72 1963 Unknown [id number] 2.16.840.1.014554.3.579.2 72 1963 Unknown [id number] 2.16.840.1.468827.3.579.2 72 1963 Unknown [id number] 2.16.840.1.232193.3.579.2 72 1963 Unknown [id number] 2.16.840.1.131703.3.579.2 59 1963 Unknown [id number] 2.16.840.1.812977.3.579.2 59 1963 Unknown [id number] 2.16.840.1.511952.3.579.2. 59 1963 Unknown [id number] 2.16.840.1.042576.3.579.2 59 1963 Unknown [id number] 2.16.840.1.781128.3.579.2. 59 1963 Unknown [id number] 2.16.840.1.030360.3.579.2. 59 1963 Unknown [id number] 2.16.840.1.564700.3.579.2. 59 1963 Unknown [id number] 2.16.840.1.817041.3.579.2 59 1963 Unknown [id number] 2.16.840.1.558062.3.579.2. 593 1963 Unknown [id number] 2.16.840.1.849205.3.579.2. 59 1963 Unknown [id number] 2.16.840.1.898673.3.579.2. 593 1963 Unknown [id number] 2.16.840.1.322535.3.579.2 59 1963 Unknown [id number] 2.16.840.1.815321.3.579.2. 59 1963 Unknown [id number] 2.16.840.1.299116.3.579.2 59 1963 Unknown [id number] 2.16.840.1.762396.3.579.2. 59 1963 Unknown [id number] 2.16840.1.903544.3.579.2 59 1963 Unknown [id number] 2.16.840.1.167518.3.579.2 59 1963 Unknown [id number] 2.16.840.1.697143.3.579.2 59 1963 Unknown [id number] 2.16.840.1.685148.3.579.2. 59 1963 Unknown [id number] 2.16.840.1.546517.3.579.2. 59 1963 Unknown [id number] 2.16.840.1.064771.3.579.2. 593 1963 Unknown [id number] 2.16.840.1.142737.3.579.2. 59 1963 Unknown [id number] 2.16.840.1.702745.3.579.2. 1259 1963 Unknown [id number] 2.16.840.1.760021.3.579.2. 1259 1963 Unknown [id number] 2.16.840.1.752390.3.579.2. 1259 1963 Unknown [id number] 2.16.840.1.300569.3.579.2. 1259 1963 Unknown [id number] 2.16.840.1.912959.3.579.2. 1259 1959 Private Health Insurance [id number] Unknown [id number] 2.16.840.1.748511.3.579.2. 531 Social History Date Type Detail Facility Start: 02-03-2022 Tobacco smoking status Heavy t obacco smoker (finding) [facility] Tobacco smoking status Never [facility] [place] Start: 03-16-2023 End: 05-13-2023 Sex Assigned At Female [facility] Start: 01-26-2023 Tobacco smoking stat [facility] Smokes tobacco daily [facility] History of tobacco use Cigarette Smoker [facility] Start: 01-26-2023 End: 05-13-2023 Cigarettes smoked current (pack per day) - Reported 1 [facility] Start: 01-26-2023 Tobacco use and exposure Smokeless tobacco non-user [facility] Start: 03-16-2023 End: 06-03-2023 Alcohol intake Ex-drinker (finding) [facility] Start: 01-26-2023 Tobacco Comment 11-20 cigarettes/day [facility] Start: 01-26-2023 Alcohol Comment socially [facility] Start: 1965 Sex Assigned At Not on file [facility] Within the last year , have you been afraid of your partner or ex-partner? No [facility] Are you now , , , , never or living with a partner? [facility] How often to you hav e a drink containing alcohol? Monthly or less [facility] How many standard drinks containing alcohol do you have on a typical day? 1 or 2 [facility] How often do you hav e 6 or more drinks on 1 occasion? Never [facility] How hard is it for y ou to pay for the very basics like food, housing, medical care, and heating Somewhat hard [facility] Do you feel stress - tense, restless, nervous, or anxious, or unable to sleep at night because your mind is troubled all the time - these days [OSQ] Only a little [facility] (I/We) worried wheth er (my/our) food would run out before (I/we) got money to buy more. Sometimes true [facility] The food that (I/we) bought just didn't last, and (I/we) didn't have money to get more. Often true [facility] In the past 12 month s, was there a time when you were not able to pay the mortgage or rent on time? Yes [facility] Functional Status Date Assessment Result Facility [...] (BMI) of 40.0 to 44.9 in adult ([facility]) 01/26/2023 COPD mixed type ([facility]) 01/26/2023 DENIES HX OF BLOOD BORNE DISEASES Depression ([facility]) Fibromyalgia Open wound of left foot [...] chest 2 views documented in this encounter [facility] 03-16-2023 History of Present illness Narrative Associated [...] (BMI) of 40.0 to 44.9 in adult ([facility]) 01/26/2023 COPD mixed type ([facility]) 01/26/2023 DENIES HX OF BLOOD BORNE DISEASES Depression ([facility]) Fibromyalgia Open wound of left foot 01/26/2023 Open wound of second toe 01/26/2023 Other acute sinusitis 01/26/2023 Primary hypertension ([facility]) 01/26/2023 Tobacco dependence 01/26/2023 Past Surgical [...] an as needed basis. [facility] 02-25-2022 Note OPERATIVE NOTE OPERATION DATE: [...] CC: Patient's family physician [facility] 02-06-2022 Note CONSULTATION CONSULTATION DATE: 02/06/2022 [...] in the clinic thereafter. [facility] 02-03-2022 Note Chief Complaint consultation for [...] 30 days Tobacco (more content not included)... [facility] Comment on above: Result Comment: Elec tronically [...] in the clinic thereafter. [facility] 12-09-2021 Note CONSULTATION CONSULTATION DATE: 12/09/2021 [...] would like to proceed. CC: Jaymie Phoenix, DESIGN LEAD [facility] Evaluation + Plan note No data available for this section General Surgery [place] Evaluation note Diagnosis COPD mixed type (CMS/HCC)- [...] in [facility] Diagnosis Primary hypertension (CMS/HCC)- Primary Unspecified essential hypertension Mixed hyperlipidemia (CMS/HCC) Mixed hyperlipidemia Fibromyalgia Unspecified myalgia and myositis Migraine without aura and without status migrainosus, not intractable (CMS/HCC) Class 3 severe obesity due to excess calories without serious comorbidity with body mass index (BMI) of 40.0 to 44.9 in adult (CMS/HCC) Tobacco dependence Tobacco use disorder Bilateral lower extremity edema Acute non-recurrent sinusitis of other sinus COPD mixed type (CMS/HCC) Open wound of second toe of left foot, initial encounter Open wound of left foot, initial encounter COPD mixed type (CMS/HCC)- Primary Tobacco dependence Tobacco use disorder BMI 40.0-44.9, adult (CMS/HCC) Body mass index [BMI] 40.0-44.9, adult (Z68.41) Primary hypertension (CMS/HCC) Unspecified essential hypertension Bilateral lower extremity edema Edema of right lower extremity- Primary BMI 40.0-44.9, adult (CMS/HCC) Shortness of breath COPD mixed type (CMS/HCC) Primary hypertension (CMS/HCC) Unspecified essential hypertension Bilateral lower extremity edema Bilateral lower extremity edema- Primary Primary hypertension (CMS/HCC) Unspecified essential hypertension COPD mixed type (CMS/HCC) Class 3 severe obesity due to excess calories without serious comorbidity with body mass index (BMI) of 40.0 to 44.9 in adult (CMS/HCC) Tobacco dependence Tobacco use disorder Bilateral lower extremity edema- Primary Tobacco dependence Tobacco use disorder BMI 40.0-44.9, adult ([facility]) COPD mixed type (CMS/HCC) WINSOME (obstructive sleep apnea) Obstructive sleep apnea (adult) (pediatric) Encounter for subsequent annual wellness visit (AWV) in Medicare patient- Primary Edema of right lower extremity Anxiety and depression ([facility]) Tobacco dependence Tobacco use disorder BMI 40.0-44.9, adult ([facility]) Fibromyalgia Unspecified myalgia and myositis Primary hypertension ([facility]) Unspecified essential hypertension COPD mixed type (CMS/HCC) Mixed hyperlipidemia ([facility]) Mixed hyperlipidemia documented in this encounter [facility] Discharge instructions No data available for this section General Surgery [place] Progress note No data available for this section [facility] [place] Summary Purpose Family History No Family History Records FoundNo Family History Records FoundNo Family History Records FoundNo Family History Records FoundNo Family History Records Found Advance Directives No Advanced Directives Records FoundNo Advanced Directives Records FoundNo Advanced Directives Records FoundNo Advanced Directives Records FoundNo Advanced Directives Records Found Reason for Referral Specialty Diagnoses / Procedures Referred By Contac t Referred To Contact Radiology Diagnoses Edema of right lower extremity Procedures Vascular US lower extremity venous duplex right Jaymie Phoenix NP [address] [place] [address] Referral ID Status Reason Start Date Expiration Date V isits Requested Visits Authorized [id number] Authorized 03/25/2023 09/21/2023 1 1 Additional Source Comments INFORMATION SOURCE (unrecogn ized section and content) DATE CREATED AUTHOR 12/26/2021 [facility] dical Specialist DATE CREATED AUTHOR AUTHOR'S ORGANIZ ATION 03/25/2022 [facility] DATE CREATED AUTHOR AUTHOR'S ORGANIZ ATION 07/17/2022 [facility] DATE CREATED AUTHOR AUTHOR'S ORGANIZ ATION 06/05/2023 [facility] dical Specialists EPIC DATE CREATED AUTHOR AUTHOR'S ORGANIZ ATION 12/23/2023 [facility] y[facility] Patient Care team informatio n (unrecognized section and content) Nurses[employer] Executive Director Relationship Specialty Start Date End Date Jaymie Phoenix NP [address] [place] [phone] Nurse Practitioner Family Medicine 01/26/23 [employer] Executive Director Relationship Specialty Start Date End Date Shaikh Marquez MD [address] [place] [phone] PCP - General Internal Medicine 03/25/23 Jaymie Phoenix NP [address] [place] [phone] Nurse Practitioner Family Medicine 01/26/23 [employer] Executive Director Relationship Specialty Start Date End Date Shaikh Marquez MD [address] [place] [phone] PCP - General Internal Medicine 03/25/23 Jaymie Phoenix NP [address] [place] [phone] Nurse Practitioner Family Medicine 01/26/23 [employer] Executive Director Relationship Specialty Start Date End Date Rohan Rodríguez MD [address] [place] [phone] PCP - General Family Medicine 05/13/23 Jaymie Phoenix NP [address] [place] [phone] Nurse Practitioner Family [facility] 01/26/23 Jaymie Phoenix NP [address] [place] [phone] Nurse Practitioner Family [facility] 05/13/23 Reason for Visit (unrecogniz ed section and content) Reason Comments Med Refill FOR RECORDS PERTAINING TO PATIENTS WHO ARE [...] BE BASED ON THE PRIMARY CLINICAL RECORDS. [employer] [facility]. provides no warranty or guarantee of the accuracy or completeness of information in this document.
--- NOTE | 2023-12-25 21:02 | ECG_ITS ---
[facility] Test Date: 2023-12-25 Pat Name: FRANKY SRINIVASAN Department: Room: - Gender: Female Quality Assurance Monitor Body: : 1965 Requested By: AICHA LLANOS Order Number: [id number] Reading MD: NAPOLEON CANNON Measurements Intervals [place] Rate: 74 P: 55 RI: 190 QRS: 64 QRSD: 120 T: 49 QT: 396 QTc: 423 Interpretive Statements 1100 Sinus rhythm 2420 RSR (QR) in lead V1/V2, consistent with right ventricular conduction delay 4068 Nonspecific Twave abnormality 8102 Low QRS voltage in chest leads 9130 borderline ECG Compared to ECG 12/24/2023 11:52:09 No significant changes Electronically Signed On 12-26-2023 7:47:17 EST by NAPOLEON CANNON
--- NOTE | 2023-12-25 21:02 | XR_ITS ---
[facility] [place] [id number] Patient Name: FRANKY SRINIVASAN MRN: [id number] date: 1965 Sex: F Assigned Patient Location: ER Current Patient Location: ED.MAIN Accession/Order Number: [id number] Exam Date: 12/25/2023 21:10 Report Date: 12/25/2023 23:35 At the request of: SHA ADAMS Procedure: XR chest 1V CHEST X-RAY, 1 VIEW HISTORY: Shortness of breath. COMPARISON: 12/24/2023. FINDINGS: The heart, andre, and mediastinum are unremarkable. There are stable parenchymal disease in the lower lobes. There are no pleural effusions. There is no pneumothorax. XR/XR chest 1V IMPRESSION: Stable chest x-ray. Electronically authenticated by: SUGAR CUMMINGS Date: 12/25/2023 23:35
--- NOTE | 2023-12-25 21:09 | ED.SOB1 ---
HPI - SOB/Dyspnea General Chief Complaint: Shortness of Breath/Dyspnea Stated Complaint: SOB Time Seen by Provider: 12/25/23 20:48 Source: patient Mode of arrival: Wheelchair History of Present Illness HPI Narrative: 58-year-old female presents for shortness of breath. She was seen here yesterday and diagnosed with pneumonia. At that time she did not want to be admitted to the hospital and she received IV Rocephin and was discharged home on Zithromax. She feels a little bit worse now. She still continues to cough. No history of hemoptysis and no fever. She has been sick for several days Related Data Home Medications ?Medication ?Instructions ?Recorded ?Confirmed amitriptyline 100 mg tablet 100 mg PO QPM 12/25/23 12/25/23 atorvastatin 20 mg tablet 20 mg PO QPM 12/25/23 12/25/23 lamotrigine 150 mg tablet 100 mg PO DAILY 12/25/23 12/25/23 lamotrigine 200 mg tablet 200 mg PO QPM 12/25/23 12/25/23 meloxicam 15 mg tablet 15 mg PO QAM 12/25/23 12/25/23 montelukast 10 mg tablet 10 mg PO QPM 12/25/23 12/25/23 omeprazole 40 mg capsule,delayed 40 mg PO DAILY 12/25/23 12/25/23 release prazosin 2 mg capsule 2 mg PO QPM 12/25/23 12/25/23 pregabalin 100 mg capsule 100 mg PO BID 12/25/23 12/25/23 propranolol 40 mg tablet 40 mg PO BID 12/25/23 12/25/23 quetiapine 100 mg tablet 100 mg PO DAILY 12/25/23 12/25/23 quetiapine 400 mg tablet 400 mg PO QPM 12/25/23 12/25/23 spironolactone 50 mg tablet 50 mg PO QAM 12/25/23 12/25/23 tizanidine 4 mg tablet 4 mg PO Q8H PRN muscle spasticity 12/25/23 12/25/23 Previous Rx's ?Medication ?Instructions ?Recorded albuterol sulfate 2.5 mg/3 mL 1.25 mg (1.5 mL) inhalation Q6H 12/24/23 (0.083 %) solution for nebulization PRN shortness of breath or wheezing #90 mL azithromycin 250 mg tablet See Rx Instructions PO .COMPLEX #6 12/24/23 (Zithromax Z-Hector) tabs Allergies Allergy/AdvReac Type Severity Reaction Status Date / Time prednisone Allergy Severe Anaphylaxis Verified 12/24/23 11:41 Penicillins AdvReac Severe Anaphylaxis Verified 12/24/23 11:41 Review of Systems ROS Narrative A ten point review of systems is negative except as noted above. [facility] Medical History (Updated 12/25/23 @ 22:32 by Mau Umaña MD) COPD (chronic obstructive pulmonary disease) ?J44.9 - Chronic obstructive pulmonary disease, unspecified (ICD-10) Anxiety ?F41.9 - Anxiety disorder, unspecified (ICD-10) Depression ?F32.A - Depression, unspecified (ICD-10) High cholesterol ?E78.00 - Pure hypercholesterolemia, unspecified (ICD-10) HTN (hypertension) ?I10 - Essential (primary) hypertension (ICD-10) Social History Smoking status: Current every day smoker Little interest or pleasure in doing things: not at all Feeling down, depressed, or hopeless: not at all Exam Narrative Exam Narrative: Nurses note and vital signs reviewed and patient is not hypoxic. General: The patient appears in no apparent distress. She appears mildly dyspneic. Skin: Warm, dry, no pallor noted. There is no rash noted. Head: Normocephalic, atraumatic Eye: Normal conjunctiva, no drainage Ears, Nose, Mouth, and Throat: oral mucosa is moist. Nares patent. Cardiovascular: Regular Rate and Rhythm Respiratory: Bilateral rhonchi throughout Back: non-tender GI: Soft and nontender Musculoskeletal: The patient has no evidence of calf tenderness, no pitting edema, symmetrical pulses noted bilaterally Neurological: A&O, normal speech Psychiatric: Cooperative Constitutional Vital Signs, click to edit/add: Last Vital Signs Temp 98.1 F 12/25/23 20:52 Pulse 74 12/25/23 21:47 Resp 19 12/25/23 21:47 BP 156/92 H 12/25/23 21:47 Pulse Ox 92 L 12/25/23 21:47 O2 Del Method Nasal Cannula 12/25/23 21:29 O2 Flow Rate 3 12/25/23 21:29 Course Vital Signs Vital signs: Vital Signs Temperature 98.1 F 12/25/23 20:52 Pulse Rate 79 12/25/23 20:52 Respiratory Rate 26 H 12/25/23 20:52 Blood Pressure 178/91 H 12/25/23 20:52 Pulse Oximetry 86 L 12/25/23 20:52 Oxygen Delivery Method Room Air 12/25/23 20:52 Temperature 98.1 F 12/25/23 20:52 Pulse Rate 74 12/25/23 21:47 Respiratory Rate 19 12/25/23 21:47 Blood Pressure 156/92 H 12/25/23 21:47 Pulse Oximetry 92 L 12/25/23 21:47 Oxygen Delivery Method Nasal Cannula 12/25/23 21:29 Oxygen Delivery Flow Rate 3 12/25/23 21:29 MDM - SOB/Dyspnea MDM Narrative Medical decision making narrative: The patient had questionable pneumonia on her chest x-ray yesterday and on my interpretation her x-ray is not appreciably changed. She was cultured and given IV Rocephin and Zithromax here being admitted. She was also given IV Solu-Medrol and aerosol treatment. Findings are discussed with the patient. Differential Diagnosis Differential diagnosis: Likely congestive heart failure and community acquired pneumonia Lab Data Attestation: I reviewed the patient's lab results. Labs: Lab Results 12/25/23 Range/Units 21:09 WBC 5.4 (4.0-11.0) 10^3/uL RBC 3.88 L (4.20-5.40) 10^6/uL Hgb 14.5 (12.0-16.0) g/dL Hct 42.7 (36.0-48.0) % MCV 110.1 H (81.0-99.0) fL MCH 37.4 H (26.7-34.0) pg MCHC 34.0 (29.9-35.2) g/dL RDW 14.2 (11.0-15.0) % Plt Count 158 (150-450) 10^3/uL MPV 10.5 (9.5-13.5) fL Neut % (Auto) 55.1 (43.0-75.0) % Lymph % (Auto) 37.3 (20.5-60.0) % [place] % (Auto) 6.3 (1.7-12.0) % Eos % (Auto) 0.2 L (0.9-7.0) % Baso % (Auto) 0.4 (0.2-2.0) % Neut # (Auto) 3.0 (1.4-6.5) 10^3/uL Lymph # (Auto) 2.0 (1.2-3.8) 10^3/uL [place] # (Auto) 0.3 (0.3-0.8) 10^3/uL Eos # (Auto) 0.0 (0.0-0.7) 10^3/uL Baso # (Auto) 0.0 (0.0-0.1) 10^3/uL Abs Immat Gran (auto) 0.04 H (0.00-0.03) 10^3/uL Imm/Tot Granulo (auto) 0.7 H (0.0-0.5) % Sodium 143 (136-145) mmol/L Potassium 3.3 L (3.5-5.1) mmol/L Chloride 103 (98-107) mmol/L Carbon Dioxide 31.2 (21.0-32.0) mmol/L Anion Gap 12.1 BUN 13.0 (7.0-18.0) mg/dL Creatinine 1.14 H (0.55-1.02) mg/dL Est GFR ( Amer) 59 L (>=60 mL/min/1.73m^2) Est GFR (Non-Af Amer) 49 L (>=60 mL/min/1.73m^2) BUN/Creatinine Ratio 11.4 Glucose 109 H (74-106) mg/dL Lactate 1.2 (0.4-2.0) mmol/L Calcium 9.3 (8.5-10.1) mg/dL Imaging Data Chest x-ray: My impression: No change since yesterday, questionable infiltrate versus atelectasis ECG Data Attestation: I personally reviewed and interpreted this ECG as follows: (EKG on my interpretation shows sinus rhythm with a rate of 74.) Discharge Plan Discharge Chief Complaint: Shortness of Breath/Dyspnea Clinical Impression: Community acquired pneumonia Patient Disposition: Admitted as Observation Time of Disposition Decision: 22:32 Condition: Good
[2023-12-25 21:19] LABS: Basophils Percent Auto 0.4 % (0.2-2.0); Eosinophils Percent Auto 0.2 % (0.9-7.0); Hematocrit 42.7 % (36.0-48.0); Hemoglobin 14.5 g/dL (12.0-16.0); Immature Granulocytes Abs Auto 0.04 10^3/uL (0.00-0.03); Immature Granulocytes Pct Auto 0.7 % (0.0-0.5); Lymphocytes Percent Auto 37.3 % (20.5-60.0); Mean Corpuscular Hemoglobin 37.4 pg (26.7-34.0); Mean Corpuscular Volume 110.1 fL (81.0-99.0); Mean Platelet Volume 10.5 fL (9.5-13.5); Monocytes Absolute Auto 0.3 10^3/uL (0.3-0.8); Monocytes Percent Auto 6.3 % (1.7-12.0); Neutrophils Percent Auto 55.1 % (43.0-75.0); Platelet Count 158 10^3/uL (150-450); Red Cell Distribution Width 14.2 % (11.0-15.0); White Blood Count 5.4 10^3/uL (4.0-11.0)
[2023-12-25] MEDS: ALBUTEROL SULFATE 2.5 MG/3 ML VIAL NEB IH (21:29)
[2023-12-25 21:30] LABS: Anion Gap 12.1; BUN Creatinine Ratio 11.4; Calcium 9.3 mg/dL (8.5-10.1); Carbon Dioxide 31.2 mmol/L (21.0-32.0); Chloride 103 mmol/L (98-107); Estimated GFR (African America 59 (>=60 mL/min/1.73m^2); Estimated GFR (Non-African Ame 49 (>=60 mL/min/1.73m^2); Glucose 109 mg/dL (74-106); Potassium 3.3 mmol/L (3.5-5.1); Sodium 143 mmol/L (136-145)
[2023-12-25 21:31] LABS: Red Blood Count 3.88 10^6/uL (4.20-5.40)
[2023-12-25 21:38] LABS: Lactate/Lactic Acid 1.2 mmol/L (0.4-2.0)
[2023-12-25] MEDS: METHYLPREDNISOLONE SOD SUCC PF 125 MG/2 ML VIAL IVP (21:43)
[2023-12-25] MEDS: CEFTRIAXONE 1,000 MG in 0.9 % SODIUM CHLORIDE 50 ML 100 MG IV (23:08)
--- OUTSIDE RECORDS SUMMARY | 2023-12-25 23:47 | XMS_ITS | CCD ---
Author Organization [facility] Care Team Providers Care Land Sales Agent Name Role Phone JAYMIE PHOENIX Primary Care Physician [phone] Bryson SAMPSON Attending Unavailable JAYMIE PHOENIX Referring Unavailabl e NABIL, Bryson Hernandez Attending Unavailable Aichholz, Tracy L Referring Unavailable NILL, Bryson Hernandez Attending Unavailable NILL, Bryson Hernandez Attending Unavailable NILL, Bryson Hernandez Attending Unavailable AICHHOLZ, UPSTREAM BIOMANUFACTURING TECHNICIAN JAYMIE Primary Care Unavailable ALLAN ., DR JIM Mcdonnell Attending Unavailable ALLAN ., DR JIM Mcdonnell Admitting Unavailable ALLAN ., DR JIM Mcdonnell Consulting Unavailable ROBINSON ., GLENROY Admitting Unavailable ROBINSON .GLENROY Attending Unavailable SJ SOLER Consulting Unavailable AICHHOLZ, UPSTREAM BIOMANUFACTURING TECHNICIAN JAYMIE Primary Care Unavailable MENDEZ ., MR DEMETRIUS Admitting Unavailable MENDEZ ., MR DEMETRIUS Attending Unavailable AICHHOLZ, UPSTREAM BIOMANUFACTURING TECHNICIAN JAYMIE Primary Care Unavailable AICHHOLZ, UPSTREAM BIOMANUFACTURING TECHNICIAN JAYMIE Admitting Unavailable JUANITA, DR NADINE Caldwell Consulting Unavailable AICHHOLZ, UPSTREAM BIOMANUFACTURING TECHNICIAN JAYMIE Primary Care Unavailable AICHHOLZ, UPSTREAM BIOMANUFACTURING TECHNICIAN JAYMIE Attending Unavailable AICHHOLZ, UPSTREAM BIOMANUFACTURING TECHNICIAN JAYMIE Consulting Unavailable AICHHOLZ, UPSTREAM BIOMANUFACTURING TECHNICIAN JAYMIE Admitting Unavailable JUANITA, DR NADINE Caldwell Consulting Unavailable AICHHOLZ, UPSTREAM BIOMANUFACTURING TECHNICIAN JAYMIE Primary Care Unavailable AICHHOLZ, UPSTREAM BIOMANUFACTURING TECHNICIAN JAYMIE Attending Unavailable AICHHOLZ, UPSTREAM BIOMANUFACTURING TECHNICIAN JAYMIE Consulting Unavailable AICHHOLZ, UPSTREAM BIOMANUFACTURING TECHNICIAN JAYMIE Primary Care Unavailable NILL ., DR MASSEY Admitting Unavailable NILL ., DR MASSEY Attending Unavailable NILL ., DR MASSEY Consulting Unavailable SONDRA FELICIANO Consulting Unavailable ROBINSON ., GLENROY Admitting Unavailable ROBINSON ., GLENROY Attending Unavailable ROBINSON .GLENROY Consulting Unavailable AICHHOLZ, UPSTREAM BIOMANUFACTURING TECHNICIAN JAYMIE Primary Care Unavailable ALLAN ., DR JIM Mcdonnell Attending Unavailable ALLAN ., DR JIM Mcdonnell Consulting Unavailable ALLAN ., DR JIM Mcdonnell Admitting Unavailable AICHHOLZ, UPSTREAM BIOMANUFACTURING TECHNICIAN JAYMIE Primary Care Unavailable MARIA FERNANDA SOSA Consulting Unavailable ALLAN ., DR JIM Mcdonnell Attending Unavailable ALLAN ., DR JIM Mcdonnell Consulting Unavailable ALLAN ., DR JIM Mcdonnell Admitting Unavailable AICHHOLZ, UPSTREAM BIOMANUFACTURING TECHNICIAN JAYMIE Primary Care Unavailable ALLAN ., DR JIM Mcdonnell Admitting Unavailable ALLAN ., DR JIM Mcdonnell Attending Unavailable ALLAN ., DR JIM Mcdonnell Consulting Unavailable AICHHOLZ, UPSTREAM BIOMANUFACTURING TECHNICIAN JAYMIE Primary Care Unavailable ALLAN ., DR JIM Mcdonnell Admitting Unavailable ALLAN ., DR JIM Mcdonnell Attending Unavailable AICHHOLZ, UPSTREAM BIOMANUFACTURING TECHNICIAN JAYMIE Primary Care Unavailable THORNE ., JENNY Consulting Unavailable ALLAN ., DR JIM Mcdonnell Admitting Unavailable ALLAN ., DR JIM Mcdonnell Attending Unavailable ALLAN ., DR JIM Mcdonnell Consulting Unavailable AICHHOLZ, UPSTREAM BIOMANUFACTURING TECHNICIAN JAYMIE Primary Care Unavailable ALLAN ., DR JIM Mcdonnell Admitting Unavailable ALLAN ., DR JIM Mcdonnell Attending Unavailable ALLAN ., DR JIM Mcdonnell Consulting Unavailable AICHHOLZ, UPSTREAM BIOMANUFACTURING TECHNICIAN JAYMIE Primary Care Unavailable THORNE ., JENNY Consulting Unavailable ALLAN ., DR JIM Mcdonnell Admitting Unavailable ALLAN ., DR JIM Mcdonnell Attending Unavailable AICHHOLZ, UPSTREAM BIOMANUFACTURING TECHNICIAN JAYMIE Primary Care Unavailable ALLAN ., DR JIM Mcdonnell Attending Unavailable ALLAN ., DR JIM Mcdonnell Consulting Unavailable ALLAN ., DR JIM Mcdonnell Admitting Unavailable AICHHOLZ, UPSTREAM BIOMANUFACTURING TECHNICIAN JAYMIE Primary Care Unavailable LAKSHMIPATHY ., NARENDRANATH Consulting Evelyn vailable NILL ., DR MASSEY Consulting Unavailable NILL ., DR MASSEY Admitting Unavailable AICHHOLZ, UPSTREAM BIOMANUFACTURING TECHNICIAN JAYMIE Primary Care Unavailable NILL ., DR MASSEY Attending Unavailable AICHHOLZ, UPSTREAM BIOMANUFACTURING TECHNICIAN JAYMIE Admitting Unavailable AICHHOLZ, UPSTREAM BIOMANUFACTURING TECHNICIAN JAYMIE Attending Unavailable AICHHOLZ, UPSTREAM BIOMANUFACTURING TECHNICIAN JAYMIE Consulting Unavailable AICHHOLZ, UPSTREAM BIOMANUFACTURING TECHNICIAN JAYMIE Primary Care Unavailable CHET, DR MELISSA Hernandez Consulting Unavailable AICHHOLZ, UPSTREAM BIOMANUFACTURING TECHNICIAN JAYMIE Admitting Unavailable AICHHOLZ, UPSTREAM BIOMANUFACTURING TECHNICIAN JAYMIE Attending Unavailable AICHHOLZ, UPSTREAM BIOMANUFACTURING TECHNICIAN JAYMIE Consulting Unavailable AICHHOLZ, UPSTREAM BIOMANUFACTURING TECHNICIAN JAYMIE Primary Care Unavailable LORI FROST Consulting Unavailable ALLAN ., DR JIM Mcdonnell Attending Unavailable ALLAN ., DR JIM Mcdonnell Admitting Unavailable AICHHOLZ, UPSTREAM BIOMANUFACTURING TECHNICIAN JAYMIE Primary Care Unavailable AICHHOLZ, UPSTREAM BIOMANUFACTURING TECHNICIAN JAYMIE Primary Care Unavailable SAMSA ., MAGDALENA Admitting Unavailable SAMSA ., MAGDALENA Attending Unavailable SAMSA ., MAGDALENA Consulting Unavailable ALLAN ., DR JIM Mcdonnell Attending Unavailable ALLAN ., DR JIM Mcdonnell Admitting Unavailable ALLAN ., DR JIM Mcdonnell Consulting Unavailable AICHHOLZ, UPSTREAM BIOMANUFACTURING TECHNICIAN JAYMIE Primary Care Unavailable AICHHOLZ, UPSTREAM BIOMANUFACTURING TECHNICIAN JAYMIE Admitting Unavailable AICHHOLZ, UPSTREAM BIOMANUFACTURING TECHNICIAN JAYMIE Attending Unavailable AICHHOLZ, UPSTREAM BIOMANUFACTURING TECHNICIAN JAYMIE Consulting Unavailable AICHHOLZ, UPSTREAM BIOMANUFACTURING TECHNICIAN JAYMIE Primary Care Unavailable Aichholz ISSUING OPERATOR, Jaymie Unavailable Shaikh Marquez MD Primary Care Provider AICHHOLZ, JAYMIE Attending Unavailable AICHHOLZ, JAYMIE Attending Unavailable AICHHOLZ, JAYMIE Attending Unavailable AICHHOLZ, JAYMIE Attending Unavailable AICHHOLZ, JAYMIE Attending Unavailable AICHHOLZ, JAYMIE Attending Unavailable Aichholz ISSUING OPERATOR, Jaymie Unavailable Rohan Rodríguez MD Primary Care Provider Aicascencionholhomer ISSUING OPERATOR, Jaymie Unavailable Alphonse Damian Attending Unavailab Alphonse Todd Admitting Unavailab le Jaymie Phoenix J Primary Care Unavailable Allergies Allergy Classification Reported Allergen(s) Allergy Type Date of Onset Reaction(s) Facility (10 sources) Penicillins; Translations: [penicillins] Drug allergy 4 Dyspnea (finding), Weal (disorder), Hives, Shortness of breath, Swelling [facility] [place] (2 sources) predniSONE; Translations: [prednisone] Drug Allergy Dyspnea (finding) [facility] [place] (1 source) prednisoLONE Drug Allergy [facility] Repository (6 sources) Prednisone Propensity to adverse reactions 3 Itching [facility] Medications Current Medications Medication Drug Class(es) Dates Sig (Normalized) Sig (Original) [id number] 200 actuat albuterol 0.09 mg/actuat metered dose [...] skilled nursing (current) drug therapy; Translations: [OTH WIG STYLIST CURRENT DRUG THERAPY] Onset: 3 Episodic Other [...] BTYon 07-08-2022 02 MODE ROOM AIR Normal [facility] Comment on above: Performed By: #### A BG ####[facility] [address] [place], [place] [address]Dr. Phani El ALLENS TEST Positive Normal [facility] Comment on above: Performed By: #### A BG ####[facility] [address] [place], [place] [address]Dr. Phani El Base excess Calc (Bld) [Moles/Vol] 1.4 mmol/L Normal -2.0-2.0 [facility] Comment on above: Performed By: #### A BG ####[facility] [address] [place], [place] [address]Dr. Phani El BIPAP PRESSURE Normal [facility] Comment on above: Performed By: #### A BG ####[facility] [address] [place], [place] [address]Dr. Phani El CPAP Normal [facility] Comment on above: Performed By: #### A BG ####[facility] [address] [place], [place] [address]Dr. Phani El FIO2 Normal [facility] Comment on above: Performed By: #### A BG ####[facility] Q[address] [place], [place] [address]Dr. Phani El HCO3 (Bld) [Moles/Vol] 26.2 mmol/L Critically high 22.0-26.0 [facility] Comment on above: Performed By: #### A BG ####[facility] [address] [place] [address]Dr. Phani El LPM Normal [facility] Comment on above: Performed By: #### A BG ####[facility] [address] [place] [address]Dr. Phani El MINUTE VOLUME Normal [facility] Comment on above: Performed By: #### A BG ####[facility] [address] [place] [address]Dr. Phani El Oxygen (Bld) [Partial pressure] 56.1 mm[Hg] Critically low 80.0-100.0 [facility] Comment on above: Performed By: #### A BG ####[facility] [address] [place], [place] [address]Dr. Phani El Oxygen saturation in Blood 92.0 % Critically low 95.0-100.0 [facility] Comment on above: Performed By: #### A BG ####[facility] [address] [place], [place] [address]Dr. Phani El PCO2 42.6 mmHg Normal 35.0-45.0 [facility] Comment on above: Performed By: #### A BG ####[facility] Y[address] [place], [place] [address]Dr. Phani El PEEP [facility] Comment on above: Performed By: #### A BG ####[facility] [address] [place], [place] [address]DrCindy El pH (Bld) 7.398 [pH] Normal 7.350-7.450 [facility] Comment on above: Performed By: #### A BG ####[facility] [address] [place] [address]DrCindy El PIP [facility] Comment on above: Performed By: #### A BG ####[facility] [address] [place] [address]Dr. hPani El PS [facility] Comment on above: Performed By: #### A BG ####[facility] [address] [place], [place] [address]Dr. Phani El PUNCTURE SITE RR Normal [facility] Comment on above: Performed By: #### A BG ####[facility] [address] [place] [id number]. Phani El RATE Normal [facility] Comment on above: Performed By: #### A BG ####[facility] [address] [place] [id number]. Phani El VENT MODE Normal [facility] Comment on above: Performed By: #### A BG ####[facility] [address] [place] [id number]. Phani El VT Normal [facility] Comment on above: Performed By: #### A BG ####[facility] [address] [place] [id number]. Loryzach El ECHOCARDIO M/2D COMPLETEon 0 07-08-2022 ECHOCARDIO M/2D COMPLETE Patient: FRANKY SRINIVASAN I. Exam Date: 07/08/2022 : 1965 Gender:F Ordering : DR. MAGDALENA DOWNING . Admission #: [id number] Family : MEREDITH PHOENIX UPSTREAM BIOMANUFACTURING TECHNICIAN Order #: [id number] CLICK HERE TO VIEW EXAM ECHOCARDIOGRAM REPORT [...] Garcia M.D. on 07/08/2022 at 18:14 Normal [facility] CT LUNG CANCER SCREENINGon 0 05-29-2022 CT [...] MELISSA MORINCINTIASARITA Date: 2022-05-29 09:36 Normal [facility] CBC AUTO DIFFon 05-05-2022 BASO # 0.1 103/ul Normal 0.0-0.1 [facility] Comment on above: Performed By: #### C BC #### [facility] [address] [address] [address] Phani El Basophils/100 WBC (Bld) 0.8 % Normal 0.2-2.0 [facility] Comment on above: Performed By: #### C BC #### [facility] [address] [address] [address] Phani El EO # 0.1 103/ul Normal 0.0-0.7 [facility] Comment on above: Performed By: #### C BC #### [facility] [address] [place] [address] Dr. Phani El Eosinophils/100 WBC (Bld) 2.0 % Normal 0.9-7.0 [facility] Comment on above: Performed By: #### C BC #### [facility] [address] [place] [address] Dr. Phani El Erythrocyte distribution width (RBC) [Ratio] 14.0 % Normal 11.0-15.0 [facility] Comment on above: Performed By: #### C BC #### [facility] [address] [place] [address] Dr. Phani El Hematocrit (Bld) [Volume fraction] 48.7 % Critically high 36.0-48.0 [facility] Comment on above: Performed By: #### C BC #### [facility] [address] [place] [address] Dr. Phani El Hemoglobin (Bld) [Mass/Vol] 15.9 g/dL Normal 12.0-16.0 [facility] Comment on above: Performed By: #### C BC #### [facility] [address] [place] [address] Dr. Phani El IG # 0.05 10e3/ul Critically high 0.00-0.03 [facility] Comment on above: Performed By: #### C BC #### [facility] [address] [address] [address] Phani El IG % 0.8 % Critically high 0.0-0.5 [facility] Comment on above: Performed By: #### C BC #### [facility] [address] [place] [address] Dr. Phani El LYMPH # 1.9 103/ul Normal 1.2-3.8 [facility] Comment on above: Performed By: #### C BC #### [facility] [address] [place] [address] Dr. Phani El Lymphocytes/100 WBC (Bld) 30.1 % Normal 20.5-60.0 [facility] Comment on above: Performed By: #### C BC #### [facility] [address] [place] [address] Dr. Phani El MANUAL DIFF REQ NO Normal [facility] Comment on above: Performed By: #### C BC #### [facility] [address] [place] [address] Dr. Phani El MCH (RBC) [Entitic mass] 32.9 pg Normal 26.7-34.0 [facility] Comment on above: Performed By: #### C BC #### [facility] [address] [place] [address] Dr. Phani El MCHC (RBC) [Mass/Vol] 32.6 g/dL Normal 29.9-35.2 [facility] Comment on above: Performed By: #### C BC #### [facility] [address] [place] [address] Dr. Phani El MCV (RBC) [Entitic vol] 100.8 fL Critically high 81.0-99.0 [facility] Comment on above: Performed By: #### C BC #### [facility] [address] [place] [address] Dr. Phani El MONO # 0.5 103/ul Normal 0.3-0.8 [facility] Comment on above: Performed By: #### C BC #### [facility] [address] [place] [address] Dr. Phani El Monocytes/100 WBC (Bld) 7.2 % Normal 1.7-12.0 [facility] Comment on above: Performed By: #### C BC #### [facility] [address] [place] [address] Dr. Phani El NEUT # 3.8 103/ul Normal 1.4-6.5 [facility] Comment on above: Performed By: #### C BC #### [facility] [address] [place] [address] Dr. Phani El Neutrophils/100 WBC (Bld) 59.1 % Normal 43.0-75.0 [facility] Comment on above: Performed By: #### C BC #### [facility] [address] [place] [address] Dr. Phani El Platelet mean volume (Bld) [Entitic vol] 11.0 fL Normal 9.5-13.5 [facility] Comment on above: Performed By: #### C BC #### [facility] [address] [place] [address] Dr. Phani El PLT 167 103/ul Normal 150-450 [facility] Comment on above: Performed By: #### C BC #### [facility] [address] [place] [address] Dr. Phani El RBC 4.83 106/ul Normal 4.20-5.40 [facility] Comment on above: Performed By: #### C BC #### [facility] [address] [place] [address] Dr. Phani El WBC 6.4 103/ul Normal 4.0-11.0 [facility] Comment on above: Performed By: #### C BC #### [facility] [address] [place] [address] Dr. Phani El GLYCOHEMOGLOBIN A1Con 2022 ADA RECOMMENDATION SEE BELOW Normal [facility] Comment on above: Result Comment: ADA RECOMMENDED LIMIT 4.0 - 6.0 ADA THERAPEUTIC TARGET < 7.0 ACTION SUGGESTED > 7.0 Performed By: #### A 1C ####[facility] [address] [place], [place] [address]ZlDr. Phani El Glucose [Mass/Vol] 114 mg/dL Normal [facility] Comment on above: Performed By: #### A 1C ####[facility] [address] [place], [place] [address]YpDr. Phani El HbA1c (Bld) [Mass fraction] 5.6 % Normal 4.5-6.2 [facility] Comment on above: Performed By: #### A 1C ####[facility] [address] [place], [place] [address]YwDr. Phani El LIPID PROFILEon 05-05-2022 CHOL-HDL RATIO NORM SEE BELOW Normal [facility] Comment on above: Result Comment: 3.3 - 4.4 LOW RISK 4.4 - 7.1 AVERAGE RISK 7.1 - 11.0 MODERATE RISK >11.0 HIGH RISK Performed By: #### C MP, LIPID #### [facility] [address] [address] [address] Phani El Cholesterol [Mass/Vol] 178 mg/dL Normal <=200 [facility] Comment on above: Performed By: #### C MP, LIPID #### [facility] [address] [address] [address] Phani El Cholesterol in HDL [Mass/Vol] 54 mg/dL Normal 40-60 [facility] Comment on above: Performed By: #### C MP, LIPID #### [facility] [address] [address] [address] Phani El Cholesterol in LDL [Mass/Vol] 86.6 mg/dL Normal [facility] Comment on above: Performed By: #### C MP, LIPID #### [facility] [address] [address] [address] Phani El Cholesterol.total/Ch olesterol in HDL [Mass ratio] 3.3 {ratio} Normal [facility] Comment on above: Performed By: #### C MP, LIPID #### [facility] [address] [address] [address] Phani El HDL NORMAL > or = 60 mg/dl - LO W CARDIOVASCULAR RISK <40 mg/dl - HIGH CARDIOVASCULAR RISK Normal [facility] Comment on above: Performed By: #### C MP, LIPID #### [facility] [address] [address] [address] Phani El LDL CALC NORMAL SEE BELOW Normal [facility] Comment on above: Result Comment: <100 mg/dl OPTIMAL 100 - 129 mg/dl NEAR OR ABOVE OPTIMAL 130 - 159 mg/dl BORDERLINE HIGH 160 - 189 mg/dl HIGH >190 mg/dl VERY HIGH Performed By: #### C MP, LIPID #### [facility] [address] [place], [place] [address] Dr. Phani El Triglyceride [Mass/Vol] 187 mg/dL Critically high <=150 [facility] Comment on above: Performed By: #### C MP, LIPID #### [facility] [address] [address] [address] Phani El VLDL CALC 37.4 mg/dL Normal [facility] Comment on above: Performed By: #### C MP, LIPID #### [facility] [address] [address] [address] Phani El PROF 14(COMP METB)on 023 Albumin [Mass/Vol] 3.6 g/dL Normal 3.4-5.0 [facility] Comment on above: Performed By: #### C MP, LIPID ####[facility] [address] [place] [id number] El Albumin/Globulin [Mass ratio] 1.1 {ratio} Normal [facility] Comment on above: Performed By: #### C MP, LIPID ####[facility] [address] [place], [place] [address]IuCindy El ALP [Catalytic activity/Vol] 91 U/L Normal 46-116 [facility] Comment on above: Performed By: #### C MP, LIPID ####[facility] [address] [place] [id number]. Phani El ALT [Catalytic activity/Vol] 34 U/L Normal 14-59 [facility] Comment on above: Performed By: #### C MP, LIPID ####[facility] [address] [place] [id number]. Phani El Anion gap [Moles/Vol] 11.6 mmol/L Normal [facility] Comment on above: Performed By: #### C MP, LIPID ####[facility] [address] [place] [id number]. Phani El AST [Catalytic activity/Vol] 18 U/L Normal 15-37 [facility] Comment on above: Performed By: #### C MP, LIPID ####[facility] [address] [place] [id number]. Phani El Bilirubin [Mass/Vol] 0.6 mg/dL Normal 0.2-1.0 [facility] Comment on above: Performed By: #### C MP, LIPID ####[facility] [address] [place] [address]Dr. Phani El Calcium [Mass/Vol] 9.2 mg/dL Normal 8.5-10.1 [facility] Comment on above: Performed By: #### C MP, LIPID ####[facility] [address] [place] [id number]. Phani El Chloride [Moles/Vol] 106 mmol/L Normal 98-107 [facility] Comment on above: Performed By: #### C MP, LIPID ####[facility] [address] [place] [id number]. Phani El CO2 [Moles/Vol] 32.3 mmol/L Critically high 21.0-32.0 [facility] Comment on above: Performed By: #### C MP, LIPID ####[facility] [address] [place] [id number]. Phani El Creatinine [Mass/Vol] 1.04 mg/dL Critically high 0.55-1.02 [facility] Comment on above: Performed By: #### C MP, LIPID ####[facility] [address] [place] [id number]. Phani El EGFR-AF TONGAN >60 Normal >=60 [facility] Comment on above: Performed By: #### C MP, LIPID ####[facility] [address] [place] [id number]. Phani El EGFR-NON AF TONGAN 54 mL/min/1.73m2 Critically low >=60 [facility] Comment on above: Performed By: #### C MP, LIPID ####[facility] [address] [place] [id number]. Phani El Globulin (S) [Mass/Vol] 3.4 g/dL Normal [facility] Comment on above: Performed By: #### C MP, LIPID ####[facility] [address] [place] [address]Dr. Phani El Glucose [Mass/Vol] 124 mg/dL Critically high 74-106 [facility] Comment on above: Performed By: #### C MP, LIPID ####[facility] [address] [place] [address]Dr. Phani Nikko Potassium [Moles/Vol] 3.9 mmol/L Normal 3.5-5.1 [facility] Comment on above: Performed By: #### C MP, LIPID ####[facility] [address] [place], [place] [address]Dr. Phani Nikko Protein [Mass/Vol] 7.0 g/dL Normal 6.4-8.2 [facility] Comment on above: Performed By: #### C MP, LIPID ####[facility] [address] [place] [address]Dr. Phani El Sodium [Moles/Vol] 146 mmol/L Critically high 136-145 [facility] Comment on above: Performed By: #### C MP, LIPID ####[facility] [address] [place] [address]Dr. Phani El Urea nitrogen [Mass/Vol] 14.0 mg/dL Normal 7.0-18.0 [facility] Comment on above: Performed By: #### C MP, LIPID ####[facility] [address] [address]Dr. Phani Nikko Urea nitrogen/Creatinine [Mass ratio] 13.5 mg/mg Normal [facility] Comment on above: Performed By: #### C MP, LIPID ####[facility] [address] [place], [place] [address]ChDr. Phani El VITAMIN B12on 05-05-2022 Cobalamin (Vitamin B12) [Mass/Vol] 321.0 pg/mL Normal 193.0-986.0 [facility] Comment on above: Performed By: #### V ITAD, VITB12 #### [facility] [address] [place], [place] [address] Dr. Phani El VITAMIN D 25 OHon 05-05-2022 VIT D 25-OH 58.7 ng/mL Normal [facility] Comment on above: Performed By: #### V ITAD, VITB12 #### [facility] [address], [place] [address] Dr. Phani El VIT D RANGES SEE BELOW Normal [facility] Comment on above: Result Comment: <20 ng/mL Vit D deficient 20 - <30 ng/mL Vit D insufficient 30 - 100 ng/mL Vit D sufficient >100 ng/mL Potential Toxicity Performed By: #### V ITAD, VITB12 #### [facility] [address] [address] [address] Phani El XR CHEST 2 Von [...] LORI FROST Date: 2022-05-05 10:05 Normal [facility] Ambulatory Visit Summaryon 0 03-24-2022 Ambulatory [...] B12 deficiency Vitamin D deficiency Normal [facility] General Surgery Office/Clini c Noteon 03-24-2022 [...] - Not Given Patient Refuses Normal [facility] Comment on above: Result Comment: Elec tronically Signed By: NABIL AMADOR, Bryson Steinberg\Date and Time Signed: 03/24/22 13:12 EST Reminderson 03-24-2022 Reminders - From: Kristine Harrison LPN To: N - Clinical; Sent: 03/24/2022 13:05:34 EST Show up: 01/26/2032 07:00:00 EST Subject: colonoscopy recall Due Date/Time: 02/26/2032 07:00:00 EST Reminder/Recall Patient is due for screening colonoscopy 02/26/2032. Normal [facility] Covid-19 PCR ([facility])on 02-10 SARS-CoV-2 (COVID-19) RNA MARISOL+probe Ql (Unsp spec) Detected Abnormal NOT DETECTED [facility] Comment on above: Result Comment: This test is not yet approved or cleared by the [place] FDA. When there are no FDA-approved or cleared tests available, and other criteria are met, FDA can make tests available under an emergency access mechanism called an Emergency Use Authorization (EUA). The EUA for this test is supported by the [place] of Health and Human Service's (HHS's) declaration [...] used). Performed By: #### C VDTBH #### [facility] [address], [place] [address] Dr. Phani El INFLUENZA A AND B AGon 03-10 INFLUANEGH SEE BELOW Normal [facility] Comment on above: Result Comment: Nega tive for Flu A protein angiten. Infection due to Flu A cannot be ruled out. Flu A angiten in the sample may be below the detection limit of the test. Performed By: #### I NFLUAB ####[facility] [address] [place], [place] [address]Vc. Phani El INFLUBNEGH SEE BELOW Normal [facility] Comment on above: Result Comment: Nega tive for Flu B protein antigen. Infection due to Flu B cannot be ruled out. Flu B antigen in the sample may be below the detection limit of the test. Performed By: #### I NFLUAB ####[facility] [address] [place], [place] [address]Rq. Phani El INFLUENZA A AG Negative Normal NEGATIVE SEE COMMENT [facility] Comment on above: Performed By: #### I NFLUAB ####[facility] [address] [place], [place] [address]Am. Phani El INFLUENZA B AG Negative Normal NEGATIVE SEE COMMENT [facility] Comment on above: Performed By: #### I NFLUAB ####[facility] [address] [place], [place] [address]Ag. Phani El Covid-19 PCR (CVD[facility])on 02-09 SARS-CoV-2 (COVID-19) RNA MARISOL+probe Ql (Unsp spec) Detected Abnormal NOT DETECTED [facility] Comment on above: Result Comment: This test is not yet approved or cleared by the [place] FDA. When there are no FDA-approved or cleared tests available, and other criteria are met, FDA can make tests available under an emergency access mechanism called an Emergency Use Authorization (EUA). The EUA for this test is supported by the [place] of Health and Human Service's declaration that [...] used). Performed By: #### C VDTBH #### [facility] [address], [place] [address] Dr. Phani El Pathology Noteon 02-27-2022 Pathology Note [id number] 0CD:127 Normal [facility] Outside Colonoscopyon 2022 Outside Colonoscopy [id number] 0CD:127 Normal [facility] Reminderson 02-26-2022 Reminders - From: Kristine Harrison LPN To: Kristine Harrison LPN; Sent: 02/26/2022 11:14:25 EST Show up: 05/18/2022 07:00:00 EDT Subject: Ambulatory Reminder Due Date/Time: 05/27/2022 07:00:00 EDT Reminder/Recall log in to extra lap top in [place] to keep account active Normal [facility] Lab Reportson 02-23-2022 Lab Reports [id number] 0CD:127 Normal [facility] Covid-19 PCR (CVDTB)on 02-08 SARS-CoV-2 (COVID-19) RNA MARISOL+probe Ql (Unsp spec) Not detected Normal NOT DETECTED [facility] Comment on above: Result Comment: This test is not yet approved or cleared by the [place] FDA. When there are no FDA-approved or cleared tests available, and other criteria are met, FDA can make tests available under an emergency access mechanism called an Emergency Use Authorization (EUA). The EUA for this test is supported by the [employer] of Health and Human Service's (HHS's) declaration [...] consistent with SARS-CoV-2. Performed By: #### C [facility] ####[facility] [address] [place], [place] [id number]. Phani El Pre-Certification Formon Pre-Certification Form [id number]. 00CD:127 Normal [facility] Consent for Procedure/Surger yon 02-05-2022 Consent for Procedure/Surgery [id number] 0CD:127 Normal [facility] Formson 02-05-2022 Forms [id number] 0CD:127 Normal [facility] Physician Referralon 022 Physician Referral [id number] 0CD:127 Normal [facility] MRI Knee w/o Lefton 12-26-19 [...] by Jason Sanchez on 12/25/2021 1505 Normal [facility] Fiscal Economist MRI LSPINE WO CONon 12-05-19 MRI LSPINE [...] by: NADINE GRANT Date: 2021-12-04 17:54 Normal [facility] XR LSPINE 2_3 VIEWSon 2021 XR LSPINE [...] by: NADINE GRANT Date: 2021-09-30 07:20 Normal [facility] MRI Knee w/o Lefton 07-30-19 22 MRI [...] by Robby Diaz on 07/30/2021 1316 Normal [facility] Specialist Vital Signs Date Time Vital Sign Value Performing Clinician Facility 03-25-2023 13:13-0500 Body height 165.1 cm Jaymie Phoenix ISSUING OPERATOR Work Phone: [facility] 03-25-2023 13:13-0500 Body mass index (BMI) [Ratio] 42.9 kg/m2 Jaymie Phoenix ISSUING OPERATOR Work Phone: [facility] 03-25-2023 13:13-0500 Body temperature 97.5 [degF] Jaymie Phoenix ISSUING OPERATOR Work Phone: [facility] 03-25-2023 13:13-0500 Body weight 116.94 kg Jaymie Phoenix ISSUING OPERATOR Work Phone: [facility] 03-25-2023 13:13-0500 Diastolic blood pressure 68 mm[Hg] Jaymie Phoenix ISSUING OPERATOR Work Phone: [facility] 03-25-2023 13:13-0500 Heart rate 71 /min Jaymie Phoenix ISSUING OPERATOR Work Phone: [facility] 03-25-2023 13:13-0500 Respiratory rate 20 /min Jaymie Phoenix ISSUING OPERATOR Work Phone: [facility] 03-25-2023 13:13-0500 SaO2% (BldA) [Mass fraction] 95 % Jaymie Phoenix ISSUING OPERATOR Work Phone: [facility] 03-25-2023 13:13-0500 Systolic blood pressure 108 mm[Hg] Jaymie Phoenix ISSUING OPERATOR Work Phone: [facility] 03-16-2023 13:35-0500 Body height 165.1 cm Jaymie Phoenix ISSUING OPERATOR Work Phone: [facility] 03-16-2023 13:35-0500 Body mass index (BMI) [Ratio] 41.6 kg/m2 Jaymie Phoenix ISSUING OPERATOR Work Phone: [facility] 03-16-2023 13:35-0500 Body temperature 98.4 [degF] Jaymie Phoenix ISSUING OPERATOR Work Phone: [facility] 03-16-2023 13:35-0500 Body weight 113.4 kg Jaymie Phoenix ISSUING OPERATOR Work Phone: [facility] 03-16-2023 13:35-0500 Diastolic blood pressure 72 mm[Hg] Jaymie Phoenix ISSUING OPERATOR Work Phone: [facility] 03-16-2023 13:35-0500 Heart rate 77 /min Jaymie Phoenix ISSUING OPERATOR Work Phone: [facility] 03-16-2023 13:35-0500 Respiratory rate 18 /min Jaymie Phoenix ISSUING OPERATOR Work Phone: [facility] 03-16-2023 13:35-0500 SaO2% (BldA) [Mass fraction] 95 % Jaymie Phoenix ISSUING OPERATOR Work Phone: [facility] 03-16-2023 13:35-0500 Systolic blood pressure 112 mm[Hg] Jaymie Phoenix ISSUING OPERATOR Work Phone: [facility] 02-03-2022 13:27-0500 Blood Pressure Location Bryson SAMPSON [facility] 02-03-2022 13:27-0500 Diastolic blood pressure 80 mm[Hg] Bryson SAMPSON [facility] 02-03-2022 13:27-0500 Heart rate 72 /min Bryson SAMPSON [facility] 02-03-2022 13:27-0500 Respiratory rate 16 /min Bryson SAMPSON [facility] [place] 02-03-2022 13:120500 Systolic blood pressure 126 mm[Hg] Bryson SAMPSON [facility] [place] Encounters Encounter Date Encounter Type Care Provider Facility Start: 12-21-2023 ambulatory Alphonse Patton acility:[facility] Start: 11-24-2023 End: 11-24-2023 Refill Jaymie Aicaminaz ISSUING OPERATOR Work Phone: [facility] Comment on above: Mixed hyperlipidemia (CMS/HCC) Start: 06-03-2023 End: 06-03-2023 ambulatory JAYMIE AICHHOLZ Not Available Start: 06-03-2023 Patient encounter procedure Jaymie Aichholz ISSUING OPERATOR Work Phone: [facility] Start: 05-13-2023 End: 05-13-2023 ambulatory JAYMIE AICHHOLZ Not Available Start: 04-26-2023 End: 04-26-2023 ambulatory JAYMIE AICHHOLZ Not Available Start: 03-25-2023 End: 03-25-2023 ambulatory JAYMIE AICHHOLZ Not Available Start: 03-25-2023 Bamboo flowsheet Jaymie Aichholz ISSUING OPERATOR Work Phone: [facility] Start: 03-25-2023 Bamboo flowsheet Jaymie Aichholz ISSUING OPERATOR Work Phone: [facility] Start: 03-25-2023 End: 03-25-2023 Office outpatient visit 25 minutes Jaymie Aichholz ISSUING OPERATOR Work Phone: [facility] Comment on above: Edema of right lower extremity (Primary Dx); BMI 40.0-44.9, adult (CMS/HCC); Shortness of breath; COPD mixed type (CMS/HCC); Primary hypertension (CMS/HCC); Bilateral lower extremity edema Start: 03-16-2023 End: 03-16-2023 ambulatory JAYMIE AICHHOLZ Not Available Start: 03-16-2023 End: 03-16-2023 Office outpatient visit 25 minutes Jaymie Aichholz ISSUING OPERATOR Work Phone: [facility] Comment on [...] Start: 03-24-2022 End: 03-25-2022 ambulatory Bryson SAMPSON Facility:[facility] Start: 03-17-2022 ambulatory Bryson SAMPSON Facility :[facility] Start: 03-10-2022 End: 03-10-2022 ambulatory MEREDITH JAYMIE MADDYAscencionSANDRAHomer Facility:[facility] Start: 03-02-2022 Encounter for preprocedural laboratory examination DR JIM ALLAN . [facility] Start: 02-28-2022 End: 03-01-2022 Encounter for preprocedural laboratory examination MEREDITH PHOENIX Facility:[facility] Start: 02-28-2022 End: 03-01-2022 ambulatory MEREDITH PHOENIX Facility:[facility] Start: 02-25-2022 End: 02-26-2022 ambulatory Bryson SAMPSON Facility:CD:[id number] Start: 02-21-2022 End: 02-22-[address] [...] . Facility:[facility] Start: 12-04-2021 End: 12-05-2021 ambulatory UPSTREAM BIOMANUFACTURING TECHNICIAN JAYMIE PHOENIX Facility:[facility] Start: 12-03-2021 End: 12-03-2021 ambulatory GLENROY BOWERS . Facility:[facility] Start: 10-10-2021 End: 10-30-2021 ambulatory MR DEMETRIUS MENDEZ . Facility:[facility] Start: 09-29-2021 End: 09-30-2021 ambulatory MEREDITH HOLCOMB ROMI Facility:[facility] Start: 09-20-2021 End: 09-20-2021 ambulatory GLENROY BOWERS . Facility: Procedures Date Procedure Procedure Detail Performing Clinician Start: 03-25-2023 Mammography Jaymie Danette kohler ISSUING OPERATOR Work Phone: Start: 02-25-2022 Colonoscopy Jaymie Danette kohler ISSUING OPERATOR Work Phone: section Bryson Saldaña Ligation of fallopian tube Leslie delacruz MANSOORL Repair of meniscus Bryson HOWELL Total abdominal hysterectomy with bilateral salpingo-oophorectomy Bryson SAMPSON Plan of Treatment Date Care Activity Detail Author Start: 02-26-2032 Screening for malign ant neoplasm of colon [facility] Start: 12-26-2024 Screening for malign ant neoplasm of colon FIT-DNA [facility] Start: 06-02-2024 Medicare Annual Well ness (AWV) Medicare Annual Wellness (AWV) [facility] Start: 03-25-2024 Screening for malign ant neoplasm of breast Mammogram [facility] Start: 10-10-2023 Influenza vaccination Influenza Vacc ine (#1) [facility] Start: 08-08-2023 Influenza vaccination Influenza Vacc ine (#1) [facility] Comment on above: Postponed from 10/09 (Patient Refused) Start: 04-06-2023 End: 04-06-2023 Patient encounter procedure 04/06/2023 1:40 PM EST Office Visit [facility] [address] [place] [phone] Jaymie Phoenix, ISSUING OPERATOR [address] [place] [phone] [facility] Start: 03-25-2023 End: 03-25-2024 CBC [...] right lower extremity Expected: 03/25/2023, Expires: 03/25/2024 [facility] Work Phone: Comment on above: Expected: 03/25/2023 , Expires: 03/25/2024 Start: 03-25-2023 End: 03-25-2024 XR Chest 2 Views XR chest 2 views Imaging Routine Edema of right lower extremity Shortness of breath Expected: 03/25/2023, Expires: 03/25/2024 [facility] Comment on above: Expected: 03/25/2023 , Expires: 03/25/2024 Start: 08-16-1993 Screening for malign ant neoplasm of cervix HPV/Cotest [facility] Start: 08-16-1984 Screening for malign ant neoplasm of cervix Pap Smear [facility] Start: 1965 Medicare Annual Well ness (AWV) Medicare Annual Wellness (AWV) [facility] Start: 1965 Screening for malign ant neoplasm of colon [facility] Immunizations Immunization Date Immunization Notes Care Provider Fa jack 06-14-2020 Kelly SARS-CoV-2 Jaymie ramirez NP Work Phone: [facility] NEGATED: Highlighted row has not occurred!02-03-2022 influenza virus vaccine, unspecified formulation Bryson SAMPSON [facility] [place] Payers Date Payer Category Payer Self-pay 2021 Medicaid [employer] MEDICARE A DVANTAGE [id number] 2021 Medicare A[employer] MEDICARE A DVANTAGE AETNA MEDICARE REPLACEMENT [id number] 2021-Present [address] [place] [address] [id number] 1963 Unknown [id number] 2.16.840.1.939040.3.579.2. 72 1963 Unknown [id number] 2.16.840.1.865962.3.579.2 72 1963 Unknown [id number] 2.16.840.1.335095.3.579.2 72 1963 Unknown [id number] 2.16.840.1.940263.3.579.2 72 1963 Unknown [id number] 2.16.840.1.929042.3.579.2 72 1963 Unknown [id number] 2.16.840.1.497772.3.579.2 59 1963 Unknown [id number] 2.16.840.1.455841.3.579.2 59 1963 Unknown [id number] 2.16.840.1.712978.3.579.2. 59 1963 Unknown [id number] 2.16.840.1.104232.3.579.2 59 1963 Unknown [id number] 2.16.840.1.563504.3.579.2. 59 1963 Unknown [id number] 2.16.840.1.956478.3.579.2. 59 1963 Unknown [id number] 2.16.840.1.408596.3.579.2. 59 1963 Unknown [id number] 2.16.840.1.659822.3.579.2 59 1963 Unknown [id number] 2.16.840.1.580543.3.579.2. 593 1963 Unknown [id number] 2.16.840.1.994640.3.579.2. 59 1963 Unknown [id number] 2.16.840.1.573377.3.579.2. 593 1963 Unknown [id number] 2.16.840.1.142306.3.579.2 59 1963 Unknown [id number] 2.16.840.1.906213.3.579.2. 59 1963 Unknown [id number] 2.16.840.1.043710.3.579.2 59 1963 Unknown [id number] 2.16.840.1.749325.3.579.2. 59 1963 Unknown [id number] 2.16840.1.228917.3.579.2 59 1963 Unknown [id number] 2.16.840.1.451818.3.579.2 59 1963 Unknown [id number] 2.16.840.1.659822.3.579.2 59 1963 Unknown [id number] 2.16.840.1.028566.3.579.2. 59 1963 Unknown [id number] 2.16.840.1.895406.3.579.2. 59 1963 Unknown [id number] 2.16.840.1.056920.3.579.2. 593 1963 Unknown [id number] 2.16.840.1.601629.3.579.2. 59 1963 Unknown [id number] 2.16.840.1.313114.3.579.2. 1259 1963 Unknown [id number] 2.16.840.1.991514.3.579.2. 1259 1963 Unknown [id number] 2.16.840.1.540498.3.579.2. 1259 1963 Unknown [id number] 2.16.840.1.144293.3.579.2. 1259 1963 Unknown [id number] 2.16.840.1.912691.3.579.2. 1259 1959 Private Health Insurance [id number] Unknown [id number] 2.16.840.1.389798.3.579.2. 531 Social History Date Type Detail Facility Start: 02-03-2022 Tobacco smoking status Heavy t obacco smoker (finding) [facility] Tobacco smoking status Never [facility] [place] Start: 03-16-2023 End: 05-13-2023 [facility] Start: 01-26-2023 Tobacco smoking stat [facility] Smokes tobacco daily [facility] History of [...] (BMI) of 40.0 to 44.9 in adult ([facility]) 01/26/2023 COPD mixed type ([facility]) 01/26/2023 DENIES HX OF BLOOD BORNE DISEASES Depression ([facility]) Fibromyalgia Open wound of left foot 01/26/2023 [...] (BMI) of 40.0 to 44.9 in adult ([facility]) 01/26/2023 COPD mixed type ([facility]) 01/26/2023 DENIES HX OF BLOOD BORNE DISEASES Depression ([facility]) Fibromyalgia Open wound of left foot 01/26/2023 Open wound of second toe 01/26/2023 Other acute sinusitis 01/26/2023 Primary hypertension ([facility]) 01/26/2023 Tobacco dependence 01/26/2023 Past Surgical History: [...] office on an as needed basis. [facility] 02-25-2022 Note OPERATIVE NOTE OPERATION DATE: [...] good condition. CC: Patient's family physician [facility] 02-06-2022 Note CONSULTATION CONSULTATION DATE: 02/06/2022 [...] followed up in the clinic thereafter. [facility] 02-03-2022 Note Chief Complaint consultation for [...] 30 days Tobacco (more content not included)... [facility] Comment on above: Result Comment: [...] followed up in the clinic thereafter. [facility] 12-09-2021 Note CONSULTATION CONSULTATION DATE: 12/09/2021 [...] would like to proceed. CC: Jaymie Phoenix, UPSTREAM BIOMANUFACTURING TECHNICIAN [facility] Evaluation + Plan note No data available for this section [facility] [place] Evaluation note Diagnosis COPD mixed type (CMS/HCC)- [...] dependence Tobacco use disorder BMI 40.0-44.9, adult ([facility]/HCC) COPD mixed type (CMS/HCC) WINSOME (obstructive sleep apnea) Obstructive sleep apnea (adult) (pediatric) Encounter for subsequent annual wellness visit (AWV) in Medicare patient- Primary Edema of right lower extremity Anxiety and depression ([facility]/HCC) Tobacco dependence Tobacco use disorder BMI 40.0-44.9, adult ([facility]/HCC) Fibromyalgia Unspecified myalgia and myositis Primary hypertension ([facility]/HCC) Unspecified essential hypertension COPD mixed type (CMS/HCC) Mixed hyperlipidemia ([facility]) Mixed hyperlipidemia documented in this encounter [facility] Discharge instructions No data available for this section [facility] [place] Progress note No data available for this section [facility] [place] Summary Purpose Family History No Family History [...] Jaymie Phoenix NP [address] [place] [address] Referral ID Status Reason Start Date Expiration Date V isits Requested Visits Authorized [id number] Authorized 03/25/2023 09/21/2023 1 1 Additional Source Comments INFORMATION SOURCE (unrecogn ized section and content) DATE CREATED AUTHOR 12/26/2021 [facility] dical Specialist DATE CREATED AUTHOR AUTHOR'S ORGANIZ ATION 03/25/2022 Meredith Richard [facility] DATE CREATED AUTHOR AUTHOR'S ORGANIZ ATION 07/17/2022 [facility] DATE CREATED AUTHOR AUTHOR'S ORGANIZ ATION 06/05/2023 [facility] dical Specialists EPIC DATE CREATED AUTHOR AUTHOR'S ORGANIZ ATION 12/23/2023 [facility] ysician Group Patient Care team informatio n (unrecognized section and content) Land Sales Agent Relationship Specialty Start Date End Date Jaymie Phoenix NP [address] [place] [phone] Nurse Practitioner Family Medicine 01/26/23 Land Sales Agent Relationship Specialty Start Date End Date Shaikh Marquez MD [address] [place] [phone] PCP - General Internal Medicine 03/25/23 Jaymie Phoenix NP [address] [place] [phone] Nurse Practitioner Family Medicine 01/26/23 Land Sales Agent Relationship Specialty Start Date End Date Shaikh Marquez MD [address] [place] [phone] PCP - General Internal Medicine 03/25/23 Jaymie Phoenix NP [address] [place] [phone] Nurse Practitioner Family Medicine 01/26/23 Land Sales Agent Relationship Specialty Start Date End Date Rohan Rodríguez MD [address] [place] [phone] PCP - General Family Medicine 05/13/23 Jaymie Phoenix NP [address] [place] [phone] Nurse Practitioner Family [facility] 01/26/23 Jaymie Phoenix NP [address] [place] [phone] Nurse Practitioner Family [facility] 05/13/23 Reason for Visit (unrecogniz ed [...] BE BASED ON THE PRIMARY CLINICAL RECORDS. [facility]. provides no warranty or guarantee of the accuracy or completeness of information in this document.
[2023-12-25] MEDS: AZITHROMYCIN 500 MG in 0.9 % SODIUM CHLORIDE 250 ML 250 MG IV (23:50)
[2023-12-26] VITALS (12 sets, daily range): BP systolic 127–177; BP diastolic 79–105; PULSE 67–79; TEMP 36.4–36.7; O2SAT 92–94
[2023-12-26] MEDS: TIZANIDINE HCL 4 MG TABLET PO ×2 (01:10→16:30)
[2023-12-26] MEDS: PREGABALIN 100 MG CAPSULE PO ×3 (01:10→21:33)
[2023-12-26] MEDS: GUAIFENESIN 600 MG TAB.ER.12H PO ×3 (01:10→21:37)
[2023-12-26] MEDS: POTASSIUM CHLORIDE 10 MEQ ER TABLET 40 MEQ PO (01:10)
[2023-12-26] MEDS: IPRATROPIUM/ALBUTEROL SULFATE 3 ML AMPUL.NEB IH ×4 (05:14→23:56)
[2023-12-26] MEDS: HYDRALAZINE HCL 20 MG/ML VIAL 5 MG IVP (05:30)
[2023-12-26 06:24] LABS: PCO2 VBG 53.8 mmHg (40.0-52.0); pH VBG 7.388 (7.330-7.430)
[2023-12-26 06:26] LABS: Hematocrit 42.8 % (36.0-48.0); Hemoglobin 14.4 g/dL (12.0-16.0); Mean Corpuscular HGB Conc 33.6 g/dL (29.9-35.2); Mean Corpuscular Hemoglobin 36.8 pg (26.7-34.0); Mean Corpuscular Volume 109.5 fL (81.0-99.0); Mean Platelet Volume 10.7 fL (9.5-13.5); Platelet Count 157 10^3/uL (150-450); Red Blood Count 3.91 10^6/uL (4.20-5.40); Red Cell Distribution Width 13.9 % (11.0-15.0)
[2023-12-26 06:46] LABS: Anion Gap 14.4; BUN Creatinine Ratio 12.2; Calcium 8.7 mg/dL (8.5-10.1); Carbon Dioxide 30.4 mmol/L (21.0-32.0); Chloride 104 mmol/L (98-107); Estimated GFR (African America 58 (>=60 mL/min/1.73m^2); Estimated GFR (Non-African Ame 48 (>=60 mL/min/1.73m^2); Glucose 131 mg/dL (74-106); Magnesium 1.8 mg/dL (1.8-2.4); Potassium 4.8 mmol/L (3.5-5.1); Sodium 144 mmol/L (136-145)
[2023-12-26] MEDS: METHYLPREDNISOLONE SOD SUCC PF 40 MG/ML VIAL IVP ×3 (06:54→23:39)
[2023-12-26] MEDS: QUETIAPINE FUMARATE 100 MG TABLET PO (09:04)
[2023-12-26] MEDS: SPIRONOLACTONE 25 MG TABLET 50 MG PO (09:04)
[2023-12-26] MEDS: OMEPRAZOLE 40 MG CAPSULE.DR PO (09:04)
[2023-12-26] MEDS: MELOXICAM 7.5 MG TABLET 15 MG PO (09:04)
[2023-12-26] MEDS: LAMOTRIGINE 100 MG TABLET PO (09:04)
[2023-12-26] MEDS: PROPRANOLOL HCL 20 MG TABLET 40 MG PO ×2 (09:04→21:33)
--- NOTE | 2023-12-26 09:26 | PM.HP ---
HPI H&P: HPI History of Present Illness Chief complaint: pneumonia Narrative: Patient is a 58 y.o white female with past medical history of smoking, seasonal allergies (asthma?), GERD, Depression, anxiety, HTN, HLD, who presented to the ER on 12/23 and again 12/24 with increased cough and shortness of breath. Patient was treated for Community Acquired Pneumonia with rocephin and z-hector and returned yesterday with worsening symptoms and new finding of hypoxia with oxygen saturations 85% on room air. Patient is currently 92% on 3 L NC. She does not use oxygen at home. Covid and influenza testing were negative. Patient was given IV solu-medrol and Zithromax and Rocephin and was admitted for further plan of care. ER findings: Chest X-ray did not show any infiltrates, WBC's 5.0, Mag 1.8, Trop 5.3, hb 14.4 Patient says she just could not catch her breath. She follows with Dr. Moralez for pulmonary. She had recent normal stress test and diagnosis of COPD. She uses Breztri daily and albuterol inhaler as needed which also was not helping. She does not use oxygen at home. She denies sick contacts, fever or chills but nasal drainage, dry cough, headache and shortness of breath. No chest pain. Opioid HPI Opioid Management Most Recent Pain and Opioid Data: Last Pain Scale 10 01/08/23 17:35 01/08/23 Last Pain Assessment 12/26/23 12:22 Last ORT Total Score 1 12/25/23 23:46 12/25/23 Last ORT Risk Category Low Risk 12/25/23 23:46 12/25/23 Review of Systems ROS Narrative ROS: a complete review of systems were reviewed with patient and are positive as below or listed in History of Chief Complaint. General: no fever, chills, night sweats Head: no headache, trauma, visual changes, nausea or vomiting Skin: no reported rashes, itching or sores Eyes: no blurriness of vision Ears: no reported hearing loss, vertigo, earache, or tinnitus Throat: slight sore throat, but no hoarseness, swelling of neck, or tongue pain Heart: no chest pain Lungs: shortness of breath and cough GI: no diarrhea or vomiting/nausea Urinary: no urinary urgency, frequency or pain Neuro: no numbness or tingling HEM: no bleeding issues or bruising ENDO: no thyroid problems Psych: no anxiety or depression PFSH PFSH Medical History (Updated 12/26/23 @ 09:32 by Gisele Elizalde DO) COPD (chronic obstructive pulmonary disease) ?J44.9 - Chronic obstructive pulmonary disease, unspecified (ICD-10) Anxiety ?F41.9 - Anxiety disorder, unspecified (ICD-10) Depression ?F32.A - Depression, unspecified (ICD-10) High cholesterol ?E78.00 - Pure hypercholesterolemia, unspecified (ICD-10) HTN (hypertension) ?I10 - Essential (primary) hypertension (ICD-10) Family History Other Family history not known due to adoption Social History Within the past year, how often did you have a drink containing alcohol: monthly or less Within the past year, how many standard drinks containing alcohol did you have on a typical day: 1 or 2 Total score: 0 Score interpretation: A score less than 3 is consistent with normal alcohol consumption. Smoking status: Current every day smoker Non-prescribed substance use: denies use Previous occupational history: retired Are you now , , , , never or living with a partner: In a typical week, how many times do you talk on the telephone with family, friends, or neighbors: 3 or more times per week How often do you get together with friends or relatives: 3 or more times per week Little interest or pleasure in doing things: not at all Feeling down, depressed, or hopeless: not at all Feel stressed/tense/nervous/anxious/difficulty sleeping: not at all Do you think of yourself as: straight/heterosexual Gender Identity: female Meds Home Medications and Allergies Home Medications ?Medication ?Instructions ?Recorded ?Confirmed ?Type albuterol sulfate 2.5 mg/3 mL 1.25 mg (1.5 mL) inhalation Q6H 12/24/23 12/25/23 Rx (0.083 %) solution for nebulization PRN shortness of breath or wheezing #90 mL azithromycin 250 mg tablet See Rx Instructions PO .COMPLEX #6 12/24/23 12/25/23 Rx (Zithromax Z-Hector) tabs amitriptyline 100 mg tablet 100 mg PO QPM 12/25/23 12/25/23 History atorvastatin 20 mg tablet 20 mg PO QPM 12/25/23 12/25/23 History lamotrigine 150 mg tablet 150 mg PO DAILY 12/25/23 12/26/23 History lamotrigine 200 mg tablet 200 mg PO QPM 12/25/23 12/25/23 History meloxicam 15 mg tablet 15 mg PO QAM 12/25/23 12/25/23 History montelukast 10 mg tablet 10 mg PO QPM 12/25/23 12/25/23 History omeprazole 40 mg capsule,delayed 40 mg PO DAILY 12/25/23 12/25/23 History release prazosin 2 mg capsule 2 mg PO QPM 12/25/23 12/25/23 History pregabalin 100 mg capsule 100 mg PO BID 12/25/23 12/25/23 History propranolol 40 mg tablet 40 mg PO BID 12/25/23 12/25/23 History quetiapine 100 mg tablet 100 mg PO DAILY 12/25/23 12/25/23 History quetiapine 400 mg tablet 400 mg PO QPM 12/25/23 12/25/23 History spironolactone 50 mg tablet 50 mg PO QAM 12/25/23 12/25/23 History tizanidine 4 mg tablet 4 mg PO Q8H PRN muscle spasticity 12/25/23 12/25/23 History Allergies Allergy/AdvReac Type Severity Reaction Status Date / Time prednisone Allergy Severe Anaphylaxis Verified 12/24/23 11:41 Penicillins AdvReac Severe Anaphylaxis Verified 12/24/23 11:41 Exam Narrative Exam Narrative: General: Patient is alert, and oriented to person, place and time very short of breath with conversing Skin: no visible rashes, or ulcers Head: atraumatic, acephalic Eyes: PERRLA, no nystagmus present, conjunctiva clear, no scleral icterus Ears: normal gross auditory acuity Nose: symmetric, no discharge, no maxillary or frontal sinus tenderness Mouth/Throat: no erythema, exudate, or tonsillar enlargement, normal dentition Neck: no masses palpated, normal thyroid, no JVD or audible carotid bruits Heart: Normal rate and rhythm, no murmurs/rubs/gallops Lungs: audible wheezes, no crackles and diminished breath sounds all lung phelps Abdomen: Normal audible bowel sounds, no distension, No palpable masses, no organomegaly, no rebound/guarding/ or rigidity Musculoskeletal: no swelling bilateral lower extremities Neuro: CN II-X grossly intac Constitutional Vital Signs, click to edit/add: Last Vital Signs Temp 98.0 F 12/26/23 07:47 Pulse 75 12/26/23 07:47 Resp 18 12/26/23 07:47 BP 158/84 H 12/26/23 07:47 Pulse Ox 92 L 12/26/23 07:47 O2 Del Method Nasal Cannula 12/26/23 07:47 O2 Flow Rate 3 12/26/23 07:47 Results Labs Labs: Short CBC 12/25/23 12/26/23 Range/Units 21:09 05:44 WBC 5.4 5.0 (4.0-11.0) 10^3/uL Hgb 14.5 14.4 (12.0-16.0) g/dL Hct 42.7 42.8 (36.0-48.0) % Plt Count 158 157 (150-450) 10^3/uL BMP 12/25/23 12/26/23 21:09 05:44 Sodium 143 144 Potassium 3.3 L 4.8 Chloride 103 104 Carbon Dioxide 31.2 30.4 BUN 13.0 14.0 Creatinine 1.14 H 1.15 H Glucose 109 H 131 H Calcium 9.3 8.7 ABG ABG results: 12/26/23 05:44 VBG pH 7.388 VBG pCO2 53.8 H Assessment and Plan Assessment and Plan (1) Acute infective exacerbation of chronic obstructive airway disease: Assessment and Plan: continue respiratory toilet. OPEP, nebs and added pulmicort today. Continue zithromax and rocephin along with solumedrol 40mg q6 hours IV. continue to monitor respiratory status. PRN nebs as well. (2) Acute respiratory failure with hypoxia: Assessment and Plan: patient down to 85% on room air, now requiring 3 L NC oxygen to maintain oxygen sats >90% (3) Community acquired pneumonia: Assessment and Plan: not definitive on chest X-ray but continue IV antibiotics. I think this is more COPD exacerbation than CAP Qualifiers: Laterality: unspecified laterality Qualified Code(s): J18.9 - Pneumonia, unspecified organism (4) Tobacco abuse: Assessment and Plan: Nicoderm patch, would benefit from cessation (5) Anxiety: Assessment and Plan: continue home meds (6) Depression: Assessment and Plan: continue home meds Qualifiers: Depression Type: unspecified Qualified Code(s): F32.A - Depression, unspecified (7) High cholesterol: Assessment and Plan: continue atorvastatin (8) HTN (hypertension): Assessment and Plan: continue prazosin, propranolol, spironolactone Qualifiers: Hypertension type: primary hypertension Qualified Code(s): I10 - Essential (primary) hypertension Plan Patient is a full code continue lovenox for DVT prophylaxis patient is inpatient status and is expected to require 2-3 days of hospital necessary care.
[2023-12-26] MEDS: BUDESONIDE 0.5 MG/2 ML AMPULE NEB IH ×2 (10:36→23:56)
[2023-12-26] MEDS: NICOTINE 21 MG PATCH.TD24 TD (12:18)
[2023-12-26] MEDS: ACETAMINOPHEN 325 MG TABLET 650 MG PO ×2 (16:29→20:07)
[2023-12-26] MEDS: PRAZOSIN 2 MG 2 EACH PO (20:05)
[2023-12-26] MEDS: LAMOTRIGINE 100 MG TABLET 200 MG PO (21:33)
[2023-12-26] MEDS: MONTELUKAST SODIUM 10 MG TABLET PO (21:33)
[2023-12-26] MEDS: ATORVASTATIN CALCIUM 20 MG TABLET PO (21:33)
[2023-12-26] MEDS: AMITRIPTYLINE HCL 50 MG TABLET 100 MG PO (21:33)
[2023-12-26] MEDS: QUETIAPINE FUMARATE 100 MG TABLET 400 MG PO (21:34)
[2023-12-26] MEDS: AZITHROMYCIN 500 MG in 0.9 % SODIUM CHLORIDE 250 ML 250 MG IV (21:40)
[2023-12-26] MEDS: CEFTRIAXONE 1,000 MG in 0.9 % SODIUM CHLORIDE 50 ML 100 MG IV (22:50)
[2023-12-27] VITALS (9 sets, daily range): BP systolic 118–149; BP diastolic 76–92; PULSE 69–95; TEMP 36.5–36.8; O2SAT 90–98
[2023-12-27] MEDS: IPRATROPIUM/ALBUTEROL SULFATE 3 ML AMPUL.NEB IH ×4 (05:05→22:28)
[2023-12-27 05:57] LABS: Basophils Percent Auto 0.1 % (0.2-2.0); Hematocrit 44.9 % (36.0-48.0); Hemoglobin 14.9 g/dL (12.0-16.0); Immature Granulocytes Abs Auto 0.05 10^3/uL (0.00-0.03); Immature Granulocytes Pct Auto 0.7 % (0.0-0.5); Lymphocytes Absolute Auto 1.1 10^3/uL (1.2-3.8); Lymphocytes Percent Auto 14.2 % (20.5-60.0); Mean Corpuscular HGB Conc 33.2 g/dL (29.9-35.2); Mean Corpuscular Hemoglobin 36.2 pg (26.7-34.0); Mean Platelet Volume 10.5 fL (9.5-13.5); Monocytes Absolute Auto 0.3 10^3/uL (0.3-0.8); Monocytes Percent Auto 3.9 % (1.7-12.0); Neutrophils Percent Auto 81.1 % (43.0-75.0); Platelet Count 167 10^3/uL (150-450); Red Blood Count 4.12 10^6/uL (4.20-5.40); Red Cell Distribution Width 13.8 % (11.0-15.0); White Blood Count 7.4 10^3/uL (4.0-11.0)
[2023-12-27 06:14] LABS: Alanine Aminotransferase 37 U/L (14-59); Albumin Level 3.6 g/dL (3.4-5.0); Alkaline Phosphatase 99 U/L (46-116); Anion Gap 10.8; Aspartate Amino Transferase 22 U/L (15-37); BUN Creatinine Ratio 12.3; Bilirubin Total 0.9 mg/dL (0.2-1.0); Calcium 9.5 mg/dL (8.5-10.1); Carbon Dioxide 32.6 mmol/L (21.0-32.0); Chloride 101 mmol/L (98-107); Estimated GFR (African America >60 (>=60 mL/min/1.73m^2); Estimated GFR (Non-African Ame 53 (>=60 mL/min/1.73m^2); Globulin 3.7 g/dL; Glucose 134 mg/dL (74-106); Potassium 4.4 mmol/L (3.5-5.1); Sodium 140 mmol/L (136-145); Total Protein 7.3 g/dL (6.4-8.2)
[2023-12-27] MEDS: METHYLPREDNISOLONE SOD SUCC PF 40 MG/ML VIAL IVP ×3 (06:23→21:02)
--- NOTE | 2023-12-27 08:11 | XR_ITS ---
The [address] [address] Patient Name: FRANKY SRINIVASAN MRN: [id number] date: 1965 Sex: F Assigned Patient Location: [place] Current Patient Location: [place] Accession/Order Number: [id number] Exam Date: 12/27/2023 08:15 Report Date: 12/27/2023 09:18 At the request of: MARIANO VACA Procedure: XR chest 1V EXAMINATION: XR chest 1V HISTORY: shortness of breath, cough COMPARISON: XR chest 12/25/2023 FINDINGS: LUNGS: Underexpanded lungs with mild opacities within lung bases partially obscuring the bronchovascular markings, right greater than left. VASCULATURE: No increased pulmonary vasculature. PLEURA: Small pleural effusions cannot be excluded. CARDIAC: No cardiomegaly or cardiac silhouette abnormality. MEDIASTINUM: No visible mass or adenopathy. BONES: No fracture or visible bone lesion. OTHER: Negative. XR/XR chest 1V IMPRESSION: 1. Moderate right, mild left basilar infiltrates versus atelectasis; increased on right, decreased on left compared to prior study. 2. Possible small bilateral pleural effusions. Electronically authenticated by: MELISSA ROSENBERG Date: 12/27/2023 09:18
--- NOTE | 2023-12-27 08:12 | PM.PN ---
Progress Note: Subjective Subjective Interval history: Patient sitting up in bed, Still requiring 3L NC oxygen to maintain sats above 90%. Patient reports cough, no fevers or chills. Still with shortness of breath but feels improved since yesterday. She daily asks to go home with oxygen. Repeat chest X-ray today does note R >L base infiltrates. Exam Narrative Exam Narrative: General: Patient is alert, and oriented to person, place and time very short of breath with conversing, obese Skin: no visible rashes, or ulcers Head: atraumatic, acephalic Eyes: PERRLA, no nystagmus present, conjunctiva clear, no scleral icterus Ears: normal gross auditory acuity Nose: symmetric, no discharge, no maxillary or frontal sinus tenderness Heart: Normal rate and rhythm, no murmurs/rubs/gallops Lungs: audible wheezes, no crackles and diminished breath sounds all lung phelps Abdomen: Normal audible bowel sounds, no distension, No palpable masses, no organomegaly, no rebound/guarding/ or rigidity Musculoskeletal: no swelling bilateral lower extremities Neuro: CN II-X grossly intact Constitutional Vital Signs, click to edit/add: Last Vital Signs Temp 97.7 F 12/27/23 07:27 Pulse 90 12/27/23 07:27 Resp 16 12/27/23 07:27 BP 146/85 H 12/27/23 07:27 Pulse Ox 90 L 12/27/23 07:27 O2 Del Method Nasal Cannula 12/27/23 07:27 O2 Flow Rate 3 12/27/23 07:27 Progress Note: Objective Labs Labs: Short CBC 12/27/23 Range/Units 05:24 WBC 7.4 (4.0-11.0) 10^3/uL Hgb 14.9 (12.0-16.0) g/dL Hct 44.9 (36.0-48.0) % Plt Count 167 (150-450) 10^3/uL BMP 12/27/23 05:24 Sodium 140 Potassium 4.4 Chloride 101 Carbon Dioxide 32.6 H BUN 13.0 Creatinine 1.06 H Glucose 134 H Calcium 9.5 Liver Function 12/27/23 Range/Units 05:24 Total Bilirubin 0.9 (0.2-1.0) mg/dL AST 22 (15-37) U/L ALT 37 (14-59) U/L Alkaline Phosphatase 99 (46-116) U/L Albumin 3.6 (3.4-5.0) g/dL Progress Note: A&P Assessment and Plan (1) Acute infective exacerbation of chronic obstructive airway disease: Assessment and Plan: continue respiratory toilet. OPEP, nebs and added pulmicort today. Continue zithromax and rocephin along with solumedrol 40mg q6 hours IV. continue to monitor respiratory status. PRN nebs as well. (2) Acute respiratory failure with hypoxia: Assessment and Plan: patient down to 85% on room air, requiring 3 L NC oxygen to maintain oxygen sats >90% (3) Community acquired pneumonia: Assessment and Plan: on chest X-ray R>L infiltrates, continue IV antibiotics. Viral testing negative. Qualifiers: Laterality: unspecified laterality Qualified Code(s): J18.9 - Pneumonia, unspecified organism (4) Tobacco abuse: Assessment and Plan: Nicoderm patch, would benefit from cessation (5) Anxiety: Assessment and Plan: continue home meds (6) Depression: Assessment and Plan: continue home meds Qualifiers: Depression Type: unspecified Qualified Code(s): F32.A - Depression, unspecified (7) High cholesterol: Assessment and Plan: continue atorvastatin (8) HTN (hypertension): Assessment and Plan: continue prazosin, propranolol, spironolactone Qualifiers: Hypertension type: primary hypertension Qualified Code(s): I10 - Essential (primary) hypertension Plan Patient is a full code continue lovenox for DVT prophylaxis patient expected to require 1-2 more days of hospital necessary care.
[2023-12-27] MEDS: OMEPRAZOLE 40 MG CAPSULE.DR PO (08:18)
[2023-12-27] MEDS: SPIRONOLACTONE 25 MG TABLET 50 MG PO (08:18)
[2023-12-27] MEDS: LAMOTRIGINE 100 MG TABLET PO (08:18)
[2023-12-27] MEDS: PROPRANOLOL HCL 20 MG TABLET 40 MG PO ×2 (08:18→21:02)
[2023-12-27] MEDS: PREGABALIN 100 MG CAPSULE PO ×2 (08:18→21:02)
[2023-12-27] MEDS: QUETIAPINE FUMARATE 100 MG TABLET PO (08:18)
[2023-12-27] MEDS: GUAIFENESIN 600 MG TAB.ER.12H PO ×2 (08:20→21:02)
--- NOTE | 2023-12-27 10:03 | CM.NOTE ---
Rounds made with Dr. Elizalde, pt remains on 3L NC. Discussed with pt possible discharge with oxygen for a short time, pt verbalizes understanding. No discharge today. Continue IV antibiotics and continue to monitor.
--- NOTE | 2023-12-27 10:56 | CM.NOTE ---
Important Message From Medicare discussed with pt, pt verbalizes understanding and signs paper. Original given to pt and copy placed on pt's chart.
[2023-12-27] MEDS: BUDESONIDE 0.5 MG/2 ML AMPULE NEB IH ×2 (11:27→22:28)
--- NOTE | 2023-12-27 11:32 | RESP.RT ---
decreased o2 to 2 liters
[2023-12-27] MEDS: NICOTINE 21 MG PATCH.TD24 TD (11:50)
[2023-12-27] MEDS: CEFTRIAXONE 1,000 MG in 0.9 % SODIUM CHLORIDE 50 ML 10 MG IV (21:01)
[2023-12-27] MEDS: MONTELUKAST SODIUM 10 MG TABLET PO (21:02)
[2023-12-27] MEDS: ATORVASTATIN CALCIUM 20 MG TABLET PO (21:02)
[2023-12-27] MEDS: QUETIAPINE FUMARATE 100 MG TABLET 400 MG PO (21:03)
[2023-12-27] MEDS: AMITRIPTYLINE HCL 50 MG TABLET 100 MG PO (21:03)
[2023-12-27] MEDS: LAMOTRIGINE 100 MG TABLET 200 MG PO (21:03)
[2023-12-27] MEDS: PRAZOSIN 2 MG 2 EACH PO (21:04)
[2023-12-27] MEDS: AZITHROMYCIN 500 MG in 0.9 % SODIUM CHLORIDE 250 ML 250 MG IV (21:05)
[2023-12-28 04:00] VITALS: BP 137/86; PULSE 76; TEMP 36.4; O2SAT 90
[2023-12-28] MEDS: IPRATROPIUM/ALBUTEROL SULFATE 3 ML AMPUL.NEB IH ×2 (05:10→11:06)
[2023-12-28 05:15] VITALS: PULSE 80; O2SAT 86
[2023-12-28 05:16] VITALS: O2SAT 90
[2023-12-28] MEDS: METHYLPREDNISOLONE SOD SUCC PF 40 MG/ML VIAL IVP ×2 (05:26→13:53)
[2023-12-28 06:00] LABS: Basophils Percent Auto 0.1 % (0.2-2.0); Eosinophils Percent Auto 0.1 % (0.9-7.0); Hematocrit 46.2 % (36.0-48.0); Hemoglobin 15.4 g/dL (12.0-16.0); Immature Granulocytes Abs Auto 0.05 10^3/uL (0.00-0.03); Immature Granulocytes Pct Auto 0.7 % (0.0-0.5); Lymphocytes Absolute Auto 0.9 10^3/uL (1.2-3.8); Lymphocytes Percent Auto 13.4 % (20.5-60.0); Mean Corpuscular HGB Conc 33.3 g/dL (29.9-35.2); Mean Corpuscular Hemoglobin 36.3 pg (26.7-34.0); Mean Platelet Volume 10.7 fL (9.5-13.5); Monocytes Absolute Auto 0.3 10^3/uL (0.3-0.8); Monocytes Percent Auto 4.1 % (1.7-12.0); Neutrophils Absolute Auto 5.7 10^3/uL (1.4-6.5); Neutrophils Percent Auto 81.6 % (43.0-75.0); Platelet Count 187 10^3/uL (150-450); Red Blood Count 4.24 10^6/uL (4.20-5.40); Red Cell Distribution Width 13.7 % (11.0-15.0)
[2023-12-28 06:21] LABS: Alanine Aminotransferase 35 U/L (14-59); Albumin Globulin Ratio 0.9; Albumin Level 3.4 g/dL (3.4-5.0); Alkaline Phosphatase 90 U/L (46-116); Anion Gap 12.1; Aspartate Amino Transferase 20 U/L (15-37); BUN Creatinine Ratio 14.2; Bilirubin Total 0.8 mg/dL (0.2-1.0); Calcium 9.1 mg/dL (8.5-10.1); Carbon Dioxide 32.8 mmol/L (21.0-32.0); Chloride 101 mmol/L (98-107); Estimated GFR (African America >60 (>=60 mL/min/1.73m^2); Estimated GFR (Non-African Ame 53 (>=60 mL/min/1.73m^2); Globulin 3.7 g/dL; Glucose 126 mg/dL (74-106); Potassium 3.9 mmol/L (3.5-5.1); Sodium 142 mmol/L (136-145); Total Protein 7.1 g/dL (6.4-8.2)
[2023-12-28 08:26] VITALS: BP 158/96; PULSE 73; TEMP 36.5; O2SAT 93
[2023-12-28] MEDS: GUAIFENESIN 600 MG TAB.ER.12H PO (08:28)
[2023-12-28] MEDS: OMEPRAZOLE 40 MG CAPSULE.DR PO (08:28)
[2023-12-28] MEDS: PROPRANOLOL HCL 20 MG TABLET 40 MG PO (08:28)
[2023-12-28] MEDS: QUETIAPINE FUMARATE 100 MG TABLET PO (08:28)
[2023-12-28] MEDS: SPIRONOLACTONE 25 MG TABLET 50 MG PO (08:28)
[2023-12-28] MEDS: LAMOTRIGINE 100 MG TABLET PO (08:29)
[2023-12-28] MEDS: PREGABALIN 100 MG CAPSULE PO (08:29)
--- NOTE | 2023-12-28 09:52 | P.DS_ITS ---
DS: Providers Provider Date of admission: 12/25/23 23:38 Primary care physician: Jaymie Phoenix NP Admitting clinician: Gisele Elizalde Discharging clinician: Gisele Elizalde DS: Diagnosis Discharge Diagnosis (1) Acute infective exacerbation of chronic obstructive airway disease: (2) Acute respiratory failure with hypoxia: (3) Community acquired pneumonia: Qualifiers: Laterality: unspecified laterality Qualified Code(s): J18.9 - Pneumo [place]isco, unspecified organism (4) Tobacco abuse: (5) Anxiety: (6) Depression: Qualifiers: Depression Type: unspecified Qualified Code(s): F32.A - Depression, unspecified (7) High cholesterol: (8) HTN (hypertension): Qualifiers: Hypertension type: primary hypertension Qualified Code(s): I10 - Essential (primary) hypertension DS: Summary Hospital Course Hospital Course: Patient is a 58 y.o white female with past medical history of smoking, seasonal allergies, COPD, GERD, Depression, anxiety, HTN, HLD, who presented to the ER on 12/23 and again 12/24 with increased cough and shortness of breath. Patient was treated for Community Acquired Pneumonia with rocephin and z-hector and returned yesterday with worsening symptoms and new finding of hypoxia with oxygen saturations 85% on room air. Patient is currently 92% on 3 L NC. She does not use oxygen at home. Covid and influenza testing were negative. Patient was given IV solu-medrol and Zithromax and Rocephin and was admitted for further plan of care. ER findings: Chest X-ray did not show any infiltrates initially but repeat showed bilateral infiltrates with R>L, WBC's 5.0, Mag 1.8, Trop 5.3, hb 14.4. Patient follows with Dr. Moralez for pulmonary. She had recent normal stress test and diagnosis of COPD. She uses Breztri daily and albuterol inhaler as needed which also was not helping. Patient was continued respiratory toilet. OPEP, nebs and added Pulmicort as she did not have her Breztri. Continue zithromax and rocephin along with solumedrol 40mg q6 hours IV. Patient has been asking daily to go home. She gets very tearful when suggest she stay another day. Patient is willing to do her DuoNeb treatments every 6 hours while awake. This was sent to the pharmacy. She will also complete the last 4 days of her Z- hector starting 12/29/23. I have placed her on a Medrol Dosepak for 6 days. She still has wheezing but improved air movement today and she is not short of air with conversing. Patient oxygen saturations drop 86% on room air with exertion and therefore will require 3L of NC continuous while at home as her sats improve to 92%. Will work on getting home oxygen company set up prior to discharge. She is aware she cannot smoke while using her oxygen. I have also provided Nicoderm patches for her. She can use the mucinex as needed for cough. 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 She may return to the ER with any worsening signs or symptoms. Status at Discharge Functional status at discharge: independent ambulation Overall status at discharge: patient is progressing back to baseline Time Spent with Patient Time attestation: Total time spent providing and/or coordinating discharge services: Time spent: greater than 30 minutes Exam Narrative Exam Narrative: General: Patient is alert, and oriented to person, place and time Skin: no visible rashes, or ulcers Head: atraumatic, acephalic Eyes: PERRLA, no nystagmus present, conjunctiva clear, no scleral icterus Ears: normal gross auditory acuity Nose: symmetric, no discharge, no maxillary or frontal sinus tenderness Heart: Normal rate and rhythm, no murmurs/rubs/gallops Lungs: audible wheezes, no crackles and diminished breath sounds all lung phelps but improved air flow today Abdomen: Normal audible bowel sounds, no distension, No palpable masses, no organomegaly, no rebound/guarding/ or rigidity Musculoskeletal: no swelling bilateral lower extremities Neuro: CN II-X grossly intact Constitutional Vital Signs, click to edit/add: Last Vital Signs Temp 97.7 F 12/28/23 08:26 Pulse 73 12/28/23 08:26 Resp 18 12/28/23 08:26 BP 158/96 H 12/28/23 08:26 Pulse Ox 93 L 12/28/23 08:26 O2 Del Method Nasal Cannula 12/28/23 08:26 O2 Flow Rate 3 12/28/23 08:26 DS: Data Data Completed and Pending Labs on day of discharge: Labs from last 24 hours 12/28/23 05:23 WBC 7.0 RBC 4.24 Hgb 15.4 Hct 46.2 MCV 109.0 H MCH 36.3 H MCHC 33.3 RDW 13.7 Plt Count 187 MPV 10.7 Neut % (Auto) 81.6 H Lymph % (Auto) 13.4 L [place] % (Auto) 4.1 Eos % (Auto) 0.1 L Baso % (Auto) 0.1 L Neut # (Auto) 5.7 Lymph # (Auto) 0.9 L [place] # (Auto) 0.3 Eos # (Auto) 0.0 Baso # (Auto) 0.0 Abs Immat Gran (auto) 0.05 H Imm/Tot Granulo (auto) 0.7 H Sodium 142 Potassium 3.9 Chloride 101 Carbon Dioxide 32.8 H Anion Gap 12.1 BUN 15.0 Creatinine 1.06 H Est GFR ( Amer) >60 Est GFR (Non-Af Amer) 53 L BUN/Creatinine Ratio 14.2 Glucose 126 H Calcium 9.1 Total Bilirubin 0.8 AST 20 ALT 35 Alkaline Phosphatase 90 Total Protein 7.1 Albumin 3.4 Globulin 3.7 Albumin/Globulin Ratio 0.9 Preliminary micro results at discharge 12/25/23 21:20 Blood Culture Result 2 - Preliminary Blood NO GROWTH AT 36-48 HOURS. FINAL TO FOLLOW. 12/25/23 21:09 Blood Culture Result 1 - Preliminary Blood NO GROWTH AT 36-48 HOURS. FINAL TO FOLLOW. Discharge Plan Discharge Disposition: Home, Self-Care Condition: Fair Discharge Medications: New ipratropium-albuterol 0.5 mg-3 mg(2.5 mg base)/3 mL Solution For Nebulization 3 ml inhalation Q6H 7 Days Qty: 90 0RF nicotine 21 mg/24 hr Patch 24 Hour 21 mg transdermal Q24H 10 Days Qty: 10 0RF guaifenesin [Mucus Relief ER] 600 mg Tablet Extended Release 12hr 600 mg PO Q12H 7 Days Qty: 14 0RF methylprednisolone [Methylpred DP] 4 mg tablets,dose pack 4 mg PO .as directed 6 Days Qty: 21 0RF Rx Instructions: Day 1: 8mg at breakfast, 4mg after lunch, 4mg after supper, 8mg at bedtime Day 2: 4mg at breakfast, 4mg after lunch, 4mg after supper, 8mg at bedtime Day 3: 4mg at breakfast, 4mg after lunch, 4mg after supper, 4mg at bedtime Day 4: 4mg at breakfast, 4mg after lunch, 4mg at bedtime Day 5: 4mg at breakfast, 4mg at bedtime Day 6:4mg at breakfast Continued albuterol sulfate 2.5 mg /3 mL (0.083 %) solution for nebulization 1.25 mg inhalation Q6H PRN (Reason: shortness of breath or wheezing) Qty: 90 0RF amitriptyline 100 mg tablet 100 mg PO QPM atorvastatin 20 mg tablet 20 mg PO QPM lamotrigine 200 mg tablet 200 mg PO QPM lamotrigine 150 mg tablet 150 mg PO DAILY montelukast 10 mg tablet 10 mg PO QPM omeprazole 40 mg capsule,delayed release(DR/EC) 40 mg PO DAILY prazosin 2 mg capsule 2 mg PO QPM pregabalin 100 mg capsule 100 mg PO BID propranolol 40 mg tablet 40 mg PO BID quetiapine 100 mg tablet 100 mg PO DAILY quetiapine 400 mg tablet 400 mg PO QPM spironolactone 50 mg tablet 50 mg PO QAM tizanidine 4 mg tablet 4 mg PO Q8H PRN (Reason: muscle spasticity) Changed azithromycin [Zithromax Z-Hector] 250 mg tablet See Rx Instructions .ROUTE .COMPLEX Qty: 6 0RF Rx Instructions: For 250 mg dose pack: take 500 mg today (day 1), then 250 mg for 4 days (days 2-5) start medication on 12/29/23 Held meloxicam 15 mg tablet 15 mg PO QAM Hold Instructions: Resume on 01/04/24. hold while taking medrol dose pack Activity: increase activity as tolerated and wear oxygen at all times Activity Detail: 3L NC oxygen until evaluated by [employer] or PCP next week. Diet: advance to your usual diet Print Language: Welsh Patient Instructions: Antitussive/Expectorant (By mouth), Methylprednisolone (By mouth), Ipratropium/Albuterol (By breathing), How to Stop Smoking (DC), Pneumonia (DC) Forms: Portal Instructions Follow Up Appointments: Follow up with Jaymie Phoenix in 1 week, call for appt [phone] Dr Moralez on Feb 15 at 8:30 AM, Bring insurance cards and photo ID to appt. Discharge location: Home
--- NOTE | 2023-12-28 09:54 | CM.NOTE ---
Rounds made with Dr. Elizalde, pt will discharge to home today on oxygen. Pt voices she is okay with any of the oxygen companies after list provided. Spoke with RN regarding walk test. Pt will f/u with Dr. Moralez and PCP.
[2023-12-28 10:28] VITALS: O2SAT 84; O2SAT 88; O2SAT 91
[2023-12-28] MEDS: BUDESONIDE 0.5 MG/2 ML AMPULE NEB IH (11:06)
[2023-12-28 11:07] VITALS: PULSE 74; O2SAT 95
--- NOTE | 2023-12-28 12:17 | CM.NOTE ---
Faxed face sheet, oxygen script, discharge summary, and H&P to [facility] for new referral.
--- NOTE | 2023-12-28 13:53 | SWNOTE1 ---
SW sent over signed walk test to [facility].
--- NOTE | 2023-12-28 13:58 | SWNOTE1 ---
BUD spoke to [place] at [facility] and she received referral and will attach the signed walk test to the reviewer.
--- NOTE | 2023-12-28 14:17 | SWNOTE1 ---
Pt's home oxygen is approved, SW received a call from [place] at [facility]. BUD took pt her tank and provided number for [facility]. BUD advised for her to call once she is home or on way home. Pt and voiced understanding. SW updated nurse.
--- NOTE | 2023-12-29 15:22 | CM.DCFOLLOWU ---
1st attempt 12/29/23, no answer
--- NOTE | 2023-12-30 15:04 | CM.DCFOLLOWU ---
2nd attempt 12/30/23, no answer
== END 2023-12-28 14:49 | disposition home or self-care (01) | DRG 193 ==
LOC: ER 22:32 → MS 23:45
PROVIDERS: Registered Nurse; Admitting Provider Family Medicine; Emergency Provider Emergency Medicine; PCP Nurse Practitioner; Visit Provider Family Medicine
DX: J18.9 Pneumonia, unspecified organism (principal); J96.01 Acute respiratory failure with hypoxia; J44.1 Chronic obstructive pulmonary disease with (acute) exacerbation; J44.0 Chronic obstructive pulmonary disease with (acute) lower respiratory infection; F41.9 Anxiety disorder, unspecified; F32.A Depression, unspecified; E78.00 Pure hypercholesterolemia, unspecified; I10 Essential (primary) hypertension; F17.200 Nicotine dependence, unspecified, uncomplicated; J30.2 Other seasonal allergic rhinitis; Z79.899 Other long term (current) drug therapy; Z20.822 Contact with and (suspected) exposure to COVID-19
CPT/HCPCS: 36415; 71045; 80048; 80053; 82800; 83605; 83735; 83880; 84484; 85025; 85027; 87040; 87804; 87811; 93005; 94640; 94667; 94668; 94761; 96365; 96375; 99285; 99406; J0360; J0456; J0696; J2919

== ENCOUNTER 2024-01-24 08:48 | Outpatient (OUT) | payer MEDICARE, SELFPAY ==
[2024-01-24 10:07] LABS: Anion Gap 11.6; BUN Creatinine Ratio 10.3; Calcium 8.9 mg/dL (8.5-10.1); Carbon Dioxide 31.6 mmol/L (21.0-32.0); Chloride 103 mmol/L (98-107); Chol HDL Ratio 2.9; Cholesterol 152 mg/dL (<=200); Estimated GFR (African America 57 (>=60 mL/min/1.73m^2); Estimated GFR (Non-African Ame 47 (>=60 mL/min/1.73m^2); Glucose 118 mg/dL (74-106); HDL Cholesterol 52 mg/dL (40-60); Potassium 4.2 mmol/L (3.5-5.1); Sodium 142 mmol/L (136-145); Triglycerides 154 mg/dL (<=150); VLDL CHOLESTEROL 30.8 mg/dL
[2024-01-25 04:07] LABS: Vitamin B12 349 pg/mL (232-1245)
== END 2024-01-24 08:49 | disposition home or self-care (01) ==
LOC: LAB 08:50
PROVIDERS: PCP Nurse Practitioner; Visit Provider Nurse Practitioner
DX: E78.2 Mixed hyperlipidemia (principal); I10 Essential (primary) hypertension; F17.200 Nicotine dependence, unspecified, uncomplicated; E53.8 Deficiency of other specified B group vitamins; E55.9 Vitamin D deficiency, unspecified
CPT/HCPCS: 36415; 80048; 80061; 82043; 82306; 82570; 82607

== ENCOUNTER 2024-01-27 13:57 | Outpatient (REF) | payer MEDICARE, SELFPAY ==
[2024-01-27 14:28] LABS: Bilirubin Urine NEGATIVE (NEGATIVE); Blood Urine NEGATIVE (NEGATIVE); Clarity Urine CLEAR (CLEAR); Color Urine YELLOW (YELLOW); Glucose Urine UA NEGATIVE (NEGATIVE); Ketones Urine NEGATIVE (NEGATIVE); Leukocyte Esterase Urine TRACE (NEGATIVE); Nitrite Urine NEGATIVE (NEGATIVE); Protein Urine TRACE mg/dL (NEG/TRACE); Specific Gravity Urine >=1.030 (1.005-1.025)
[2024-01-27 14:33] LABS: Creatinine Urine Random 235.95 mg/dL (20.00-300.00)
[2024-01-27 14:34] LABS: Microalbumin Urine Random <1.3 mg/dL (<=30.0)
[2024-01-27 14:37] LABS: Urine Microscopic Indicated YES
[2024-01-27 14:46] LABS: Bacteria Urine LARGE #/HPF (NONE SEEN); Mucus Urine NONE SEEN (NONE SEEN); RBC Urine NONE SEEN #/HPF (0-2); Squamous Epithelial Cell Urine MODERATE #/LPF (NONE/RARE)
== END 2024-01-27 13:58 | disposition home or self-care (01) ==
LOC: LAB 13:57
PROVIDERS: PCP Nurse Practitioner; Visit Provider Nurse Practitioner
DX: E78.2 Mixed hyperlipidemia (principal); I10 Essential (primary) hypertension; F17.200 Nicotine dependence, unspecified, uncomplicated; E53.8 Deficiency of other specified B group vitamins; E55.9 Vitamin D deficiency, unspecified
CPT/HCPCS: 81001; 82043; 82570

== ENCOUNTER 2024-06-28 11:21 | Emergency (ER) | payer MEDICARE, SELFPAY ==
--- OUTSIDE RECORDS SUMMARY | 2024-06-28 11:29 | XMS_ITS | CCD ---
Author Organization [facility] Care Team Providers Care Targeteer Name Role Phone JAYMIE PHOENIX Primary Care Physician [phone] Bryson SAMPSON Attending Unavailable JAYMIE PHOENIX Referring Unavailabl e NABIL, Bryson Hernandez Attending Unavailable Aichholz, Tracy L Referring Unavailable NILL, Bryson Hernandez Attending Unavailable NILL, Bryson Hernandez Attending Unavailable NILL, Bryson Hernandez Attending Unavailable AICHHOLZ, RESEARCH GREENHOUSE SUPERVISOR JAYMIE Primary Care Unavailable ALLAN ., DR JIM Mcdonnell Attending Unavailable ALLAN ., DR JIM Mcdonnell Admitting Unavailable ALLAN ., DR JIM Mcdonnell Consulting Unavailable ROBINSON ., GLENROY Admitting Unavailable ROBINSON .GLENROY Attending Unavailable SJ SOLER Consulting Unavailable AICHHOLZ, RESEARCH GREENHOUSE SUPERVISOR JAYMIE Primary Care Unavailable MENDEZ ., MR DEMETRIUS Admitting Unavailable MENDEZ ., MR DEMETRIUS Attending Unavailable AICHHOLZ, RESEARCH GREENHOUSE SUPERVISOR JAYMIE Primary Care Unavailable AICHHOLZ, RESEARCH GREENHOUSE SUPERVISOR JAYMIE Admitting Unavailable JUANITA, DR NADINE Caldwell Consulting Unavailable AICHHOLZ, RESEARCH GREENHOUSE SUPERVISOR JAYMIE Primary Care Unavailable AICHHOLZ, RESEARCH GREENHOUSE SUPERVISOR JAYMIE Attending Unavailable AICHHOLZ, RESEARCH GREENHOUSE SUPERVISOR JAYMIE Consulting Unavailable AICHHOLZ, RESEARCH GREENHOUSE SUPERVISOR JAYMIE Admitting Unavailable JUANITA, DR NADINE Caldwell Consulting Unavailable AICHHOLZ, RESEARCH GREENHOUSE SUPERVISOR JAYMIE Primary Care Unavailable AICHHOLZ, RESEARCH GREENHOUSE SUPERVISOR JAYMIE Attending Unavailable AICHHOLZ, RESEARCH GREENHOUSE SUPERVISOR JAYMIE Consulting Unavailable AICHHOLZ, RESEARCH GREENHOUSE SUPERVISOR JAYMIE Primary Care Unavailable NILL ., DR MASSEY Admitting Unavailable NILL ., DR MASSEY Attending Unavailable NILL ., DR MASSEY Consulting Unavailable SONDRA FELICIANO Consulting Unavailable ROBINSON ., GLENROY Admitting Unavailable ROBINSON ., GLENROY Attending Unavailable ROBINSON ., GLENROY Consulting Unavailable AICHHOLZ, RESEARCH GREENHOUSE SUPERVISOR JAYMIE Primary Care Unavailable ALLAN ., DR JIM Mcdonnell Attending Unavailable ALLAN ., DR JIM Mcdonnell Consulting Unavailable ALLAN ., DR JIM Mcdonnell Admitting Unavailable AICHHOLZ, RESEARCH GREENHOUSE SUPERVISOR JAYMIE Primary Care Unavailable MARIA FERNANDA SOSA Consulting Unavailable ALLAN ., DR JIM Mcdonnell Attending Unavailable ALLAN ., DR JIM Mcdonnell Consulting Unavailable ALLAN ., DR JIM Mcdonnell Admitting Unavailable AICHHOLZ, RESEARCH GREENHOUSE SUPERVISOR JAYMIE Primary Care Unavailable ALLAN ., DR JIM Mcdonnell Admitting Unavailable ALLAN ., DR JIM Mcdonnlel Attending Unavailable ALLAN ., DR JIM Mcdonnell Consulting Unavailable AICHHOLZ, RESEARCH GREENHOUSE SUPERVISOR JAYMIE Primary Care Unavailable ALLAN ., DR JIM Mcdonnell Admitting Unavailable ALLAN ., DR JIM Mcdonnell Attending Unavailable AICHHOLZ, RESEARCH GREENHOUSE SUPERVISOR JAYMIE Primary Care Unavailable THORNE ., JENNY Consulting Unavailable ALLAN ., DR JIM Mcdonnell Admitting Unavailable ALLAN ., DR JIM Mcdonnell Attending Unavailable ALLAN ., DR JIM Mcdonnell Consulting Unavailable AICHHOLZ, RESEARCH GREENHOUSE SUPERVISOR JAYMIE Primary Care Unavailable ALLAN ., DR JIM Mcdonnell Admitting Unavailable ALLAN ., DR JIM Mcdonnell Attending Unavailable ALLAN ., DR JIM Mcdonnell Consulting Unavailable AICHHOLZ, RESEARCH GREENHOUSE SUPERVISOR JAYMIE Primary Care Unavailable THORNE ., JENNY Consulting Unavailable ALLAN ., DR JIM Mcdonnell Admitting Unavailable ALLAN ., DR JIM Mcdonnell Attending Unavailable AICHHOLZ, RESEARCH GREENHOUSE SUPERVISOR JAYMIE Primary Care Unavailable ALLAN ., DR JIM Mcdonnell Attending Unavailable ALLAN ., DR JIM Mcdonnell Consulting Unavailable ALLAN ., DR JIM Mcdonnell Admitting Unavailable AICHHOLZ, RESEARCH GREENHOUSE SUPERVISOR JAYMIE Primary Care Unavailable LAKSHMIPATHY ., NARENDRANATH Consulting Evelyn vailable NILL ., DR MASSEY Consulting Unavailable NILL ., DR MASSEY Admitting Unavailable AICHHOLZ, RESEARCH GREENHOUSE SUPERVISOR JAYMIE Primary Care Unavailable NILL ., DR MASSEY Attending Unavailable AICHHOLZ, RESEARCH GREENHOUSE SUPERVISOR JAYMIE Admitting Unavailable AICHHOLZ, RESEARCH GREENHOUSE SUPERVISOR JAYMIE Attending Unavailable AICHHOLZ, RESEARCH GREENHOUSE SUPERVISOR JAYMIE Consulting Unavailable AICHHOLZ, RESEARCH GREENHOUSE SUPERVISOR JAYMIE Primary Care Unavailable CHET, DR MELISSA Hernandez Consulting Unavailable AICHHOLZ, RESEARCH GREENHOUSE SUPERVISOR JAYMIE Admitting Unavailable AICHHOLZ, RESEARCH GREENHOUSE SUPERVISOR JAYMIE Attending Unavailable AICHHOLZ, RESEARCH GREENHOUSE SUPERVISOR JAYMIE Consulting Unavailable AICHHOLZ, RESEARCH GREENHOUSE SUPERVISOR JAYMIE Primary Care Unavailable LORI FROST Consulting Unavailable ALLAN ., DR JIM Mcdonnell Attending Unavailable ALLAN ., DR JIM Mcdonnell Admitting Unavailable AICHHOLZ, RESEARCH GREENHOUSE SUPERVISOR JAYMIE Primary Care Unavailable AICHHOLZ, RESEARCH GREENHOUSE SUPERVISOR JAYMIE Primary Care Unavailable SAMSA ., MAGDALENA Admitting Unavailable SAMSA ., MAGDALENA Attending Unavailable SAMSA ., MAGDALENA Consulting Unavailable ALLAN ., DR JIM Mcdonnell Attending Unavailable ALLAN ., DR JIM Mcdonnell Admitting Unavailable ALLAN ., DR JIM Mcdonnell Consulting Unavailable AICHHOLZ, RESEARCH GREENHOUSE SUPERVISOR JAYMIE Primary Care Unavailable AICHHOLZ, RESEARCH GREENHOUSE SUPERVISOR JAYMIE Admitting Unavailable AICHHOLZ, RESEARCH GREENHOUSE SUPERVISOR JAYMIE Attending Unavailable AICHHOLZ, RESEARCH GREENHOUSE SUPERVISOR JAYMIE Consulting Unavailable AICHHOLZ, RESEARCH GREENHOUSE SUPERVISOR JAYMIE Primary Care Unavailable Aichholz SUBSTATION SUPERINTENDENT, Jaymie Unavailable Alma AMADOR, Primary Care Provider [phone] Aichholz SUBSTATION SUPERINTENDENT, Jaymie Unavailable Anne AMADOR, Rohan Primary Care Provider [phone] Aichholz SUBSTATION SUPERINTENDENT, Jaymie Unavailable SAUMYA BACK Attending Unavailable AICHHOLZ, JAYMIE Referring Unavailable AICHHOLZ, JAYMIE Attending Unavailable AICHHOLZ, JAYMIE Attending Unavailable AICHHOLZ, JAYMIE Attending Unavailable AICHHOLZ, JAYMIE Attending Unavailable AICHHOLZ, JAYMIE Attending Unavailable AICHHOLZ, JAYMIE Attending Unavailable Alphonse Damian Attending Unavailab le Nati, Alphonse Admitting Unavailab le Maddyhholz, Jaymie J Primary Care Unavailable Allergies Allergy Classification Reported Allergen(s) Allergy Type Date of Onset Reaction(s) Facility (20 sources) Penicillins; Translations: [penicillins] Drug allergy 4 Dyspnea (finding), Weal (disorder), Hives, Shortness of breath, Swelling [facility] [place] (2 sources) predniSONE; Translations: [prednisone] Drug Allergy Dyspnea (finding) [facility] [place] (1 source) prednisoLONE Drug Allergy [facility] (20 sources) Prednisone Propensity to adverse reactions 3 Itching [facility] Medications Current Medications Medication Drug Class(es) Dates Sig (Normalized) Sig (Original) [id number] 200 actuat albuterol 0.09 mg/actuat metered dose inhaler (20 sources) beta2-Adrenergic Agonist Start: 04-19-2024 End: 05-19-2024 take 2 puff(s) by inhalation every six hours for wheezing albuterol HFA 90 mcg/act inhaler Indications: COPD mixed type (CMS/HCC) Inhale 2 puffs every 6 (six) hours if needed for shortness of breath or wheezing 18 g 04/19/2024 Active Start: 12-24-2023 albuterol (2.5 MG/3ML) 0.083% nebulizer solution Take 2.5 mg by nebulization every 6 (six) hours if needed for shortness of breath or wheezing 12/24/2023 Active albuterol 0.833 mg/ml / ipratropium bromide 0.167 mg/ml inhalation solution (18 sources) Anticholinergic, beta2-Adrenergic Agonist Start: 12-28-2023 ipratropium-albuterol (Duo-Neb) 0.5-2.5 mg/3 mL nebulizer solution Take 3 mL by nebulization every 6 (six) hours if needed for wheezing or shortness of breath 12/28/2023 Active amitriptyline hydrochloride 100 mg oral tablet (20 sources) Tricyclic Antidepressant Start: 01-26-2024 End: 04-25-2024 take 0.5 tablet by mouth at bedtime amitriptyline (Elavil) 100 MG tablet Indications: Fibromyalgia Take 0.5 tablets (50 mg) by mouth at bedtime 45 tablet 1 01/26/2024 Active Start: 05-05-2023 End: 01-24-2024 take 0.5 tablet by mouth at bedtime amitriptyline (Elavil) 100 MG tablet Indications: Fibromyalgia Take 0.5 tablets (50 mg) by mouth at bedtime 45 tablet 1 10/26/2023 Active Start: 01-22-2022 amitriptyline 100 mg oral tablet 50 mg = 0.5 tab(s), Oral, Once a day (at bedtime), Refills(s) 0 Start Date: 01/22/22 Status: Ordered End: 01-03-2024 take 1 tablet by mouth at bedtime amitriptyline (Elavil) 50 MG tablet Take 50 mg by mouth at bedtime 01/03/2024 Discontinued (Therapy completed) atorvastatin 20 mg oral tablet (20 sources) HMG-CoA Reductase Inhibitor Start: 04-10-2024 End: 09-12-2024 take 1 tablet by mouth at bedtime atorvastatin (Lipitor) 20 MG tablet Indications: Mixed hyperlipidemia (CMS/HCC) Take 1 tablet (20 mg) by mouth at bedtime 90 tablet 1 06/14/2024 09/12/2024 Active Start: 05-18-2023 End: 02-02-2024 take 1 tablet by mouth at bedtime atorvastatin (Lipitor) 20 MG tablet Indications: Mixed hyperlipidemia (CMS/HCC) Take 1 tablet (20 mg) by mouth at bedtime 30 tablet 3 01/03/2024 Active Start: 02-28-2023 End: 03-30-2023 take 1 tablet by mouth in the evening atorvastatin (Lipitor) 20 MG tablet Indications: Mixed hyperlipidemia (CMS/HCC) Take 1 tablet (20 mg) by mouth in the evening 30 tablet 2 02/28/2023 03/30/2023 Active 120 actuat budesonide 0.16 mg/actuat / formoterol fumarate 0.0048 mg/actuat / glycopyrrolate 0.009 mg/actuat metered dose inhaler (20 sources) Corticosteroid, beta2-Adrenergic Agonist Start: 09-29-2022 take 2 puff(s) by inhalation in the morning BrezSkyGiraffei Aerosphere 160-9-4.8 MCG/ACT aerosol Inhale 2 puffs in the morning and 2 puffs before bedtime. 09/29/2022 Active bumetanide 0.5 mg oral tablet (20 sources) Loop Diuretic Start: 06-07-2023 bumetanide (Bumex) [...] days. 14 tablet 0 03/25/2023 04/08/2023 Active cetirizine hydrochloride 10 mg oral tablet (5 sources) Histamine-1 Receptor Antagonist Start: 04-19-2024 End: 07-18-2024 take 1 tablet by mouth once daily cetirizine (ZyrTEC) 10 MG tablet Indications: Environmental and seasonal allergies Take 1 tablet (10 mg) by mouth Daily 90 tablet 1 04/19/2024 07/18/2024 Active cholecalciferol 0.125 mg oral tablet (20 sources) Vitamin D cholecalciferol (Vitamin D-3) 125 MCG (5000 UT) tablet as directed Orally Active ibuprofen 800 mg oral tablet (20 sources) Nonsteroidal Anti-inflammatory Drug Start: 01-08-2023 take 1 tablet by mouth every eight hours as needed ibuprofen 800 MG tablet Take 800 mg by mouth every 8 (eight) hours if needed 01/08/2023 Active lamoTRIgine 150 mg oral tablet (20 sources) Mood Stabilizer, Anti-epileptic Agent Start: 05-04-2023 End: 01-03-2024 take 1 tablet by mouth once daily lamoTRIgine (LaMICtal) 150 MG tablet Take 150 mg by mouth Daily 05/04/2023 01/03/2024 Discontinued (Therapy completed) Start: 01-22-2022 take 1 tablet by aaron [...] 0 Active meloxicam 15 mg oral tablet (20 sources) Nonsteroidal Anti-inflammatory Drug Start: 12-05-19 End: 05-11-19 take 1 tablet by mouth once daily meloxicam (Mobic) 15 MG tablet Take 15 mg by mouth Daily 05/09/2024 Active Start: 03-15-2023 End: 04-14-2023 take 1 [...] Status: Ordered montelukast 10 mg oral tablet (20 sources) Leukotriene Receptor Antagonist Start: 08-24-2023 End: 07-18-2024 take 1 tablet by mouth at bedtime montelukast (Singulair) 10 MG tablet Indications: Environmental and seasonal allergies Take 1 tablet (10 mg) by mouth at bedtime 90 tablet 1 04/19/2024 07/18/2024 Active omeprazole 40 mg delayed release oral capsule (20 sources) Proton Pump Inhibitor Start: 05-05-2023 End: 05-10-2024 take 1 capsule by mouth once daily omeprazole (PriLOSEC) [address] capsule Indications: Gastro-esophageal reflux disease without esophagitis Take 1 capsule (40 mg) by mouth Daily 90 capsule 1 02/10/2024 Active Start: 01-22-2022 take 1 capsule by mo ut once daily omeprazole 40 mg Cap-DR 40 mg = 1 cap(s), Oral, Daily, Refills(s) 0 Start Date: 01/22/22 Status: Ordered prazosin 1 mg oral capsule (20 sources) alpha-Adrenergic Lenora Start: 11-16-2023 take 1 capsule by mouth once daily prazosin (Minipress) 1 MG capsule Take 1 mg by mouth Daily 11/16/2023 Active Start: 01-22-2022 take 1 capsule by mo [facility] at bedtime prazosin 2 mg oral capsule 2 mg = 1 cap(s), Oral, Bedtime, Refills(s) 0 Start Date: 01/22/22 Status: Ordered pregabalin 100 mg oral capsule (20 sources) Start: 12-31-2023 End: 06-08-2024 take 1 capsule by mouth in the morning pregabalin (Lyrica) 100 MG capsule Indications: Fibromyalgia Take 1 capsule (100 mg) by mouth in the morning and 1 capsule (100 mg) before bedtime. 60 capsule 2 05/09/2024 Active Start: 06-28-2023 take 1 capsule by mo ut in the morning pregabalin (Lyrica) 100 MG [...] Ordered propranolol hydrochloride 40 mg oral tablet (20 sources) beta-Adrenergic Lenora Start: 01-26-2024 End: 04-25-2024 take 1 tablet by mouth in the morning propranolol (Inderal) 40 MG tablet Indications: Personal history of other diseases of the nervous system and sense organs Take 1 tablet (40 mg) by mouth in the morning and 1 tablet (40 mg) before bedtime. 180 tablet 1 01/26/2024 Active Start: 12-25-2023 End: 01-24-2024 take 1 tablet by mouth in the morning propranolol (Inderal) 40 MG tablet Indications: Personal history of other diseases of the nervous system and sense organs Take 1 tablet (40 mg) by mouth in the morning and 1 tablet (40 mg) before bedtime. 60 tablet 1 12/25/2023 Active Start: 06-28-2023 take 1 tablet by aaron th in the morning propranolol (Inderal) 40 MG [...] 0 Start Date: 01/22/22 Status: Ordered QUEtiapine 300 mg oral tablet (20 sources) Atypical Antipsychotic Start: 05-11-2024 take 1 tablet by mouth at bedtime QUEtiapine (SEROquel) 300 MG tablet Take 300 mg by mouth at bedtime 05/11/2024 Active Start: 01-22-2022 SEROquel 100 m g Tab 1 tabs QAM and 4 tabs qpm, Refills(s) 0 Start Date: 01/22/22 Status: Ordered take 1 tablet by aaron th at bedtime QUEtiapine (SEROquel) 400 MG tablet Take 400 mg by mouth at bedtime Active simvastatin 40 mg oral tablet (1 source) HMG-CoA Reductase Inhibitor Start: 01-22-2022 take 1 tablet by mouth once daily at bedtime simvastatin 40 mg Tab 40 mg = 1 tab(s), Oral, Once a day (at bedtime), Refills(s) 0 Start Date: 01/22/22 Status: Ordered spironolactone 50 mg oral tablet (20 sources) Aldosterone Antagonist Start: 01-26-2024 End: 07-09-2024 take 1 tablet by mouth in the morning spironolactone (Aldactone) 50 MG tablet Indications: Localized edema Take 1 tablet (50 mg) by mouth in the morning. 30 tablet 5 04/10/2024 07/09/2024 Active Start: 09-24-2023 take 1 tablet by aaron th in the morning spironolactone (Aldactone) 50 MG [...] Status: Ordered tiZANidine 4 mg oral tablet (20 sources) Central alpha-2 Adrenergic Agonist Start: 01-03-2024 End: 02-02-2024 take 1 tablet by mouth once tiZANidine (Zanaflex) 4 MG tablet Indications: Fibromyalgia Take 1 tablet (4 mg) by mouth every 12 (twelve) hours if needed for muscle spasms 60 tablet 5 01/03/2024 Active Start: 05-05-2023 End: 01-03-2024 take 1 tablet by mouth every eight [...] 1 (one) time each day 0 Active varenicline 1 mg oral tablet (2 sources) Partial Cholinergic Nicotinic Agonist Start: 06-26-2024 End: 07-26-2024 take 1 tablet by mouth once daily Varenicline Tartrate, Starter, (Chantix Starting Month ) 0.5 MG X 11 & 1 MG X 42 tablet therapy pack Indications: Tobacco dependence Take 1 tablet by mouth Daily Take as directed 53 each 06/26/2024 07/26/2024 Active Vitamin D3 5000 intl units (125 mcg) oral tab (1 source) Start: 01-22-2022 take 1 tablet by mouth once daily Vitamin D3 5000 intl units (125 mcg) oral tab 125 mcg = 1 tab(s), Oral, Daily, Refills(s) 0 Start Date: 01/22/22 Status: Ordered Problems Active Problems Problem Classification Problem Date Documented Da te Episodic/Chronic Anxiety disorders (20 sources) Mixed anxiety and depressive disorder; Translations: [Anxiety disorder, unspecified] Onset: 4 01-22-2022 Chronic Chronic kidney disease (3 sources) Chronic kidney disease stage 3A ; Translations: [Chronic kidney disease, stage 3a (HCC)] Onset: 5 06-07-2024 Chronic Chronic obstructive pulmonary disease and bronchiectasis (20 sources) Chronic obstructive pulmonary disease, unspecified; Translations: [...] Onset: 3 Episodic Disorders of lipid metabolism (20 sources) Hyperlipidemia; Translations: [Hyperlipidemia, unspecified] Onset: 3 Resolved: 4 01-22-2022 Chronic Esophageal disorders (20 sources) Gastroesophageal reflux disease; Translations: [Gastro-esophageal reflux disease without esophagitis] Onset: 2 01-22-2022 Chronic Essential hypertension (20 sources) Essential hypertension; Translations: [Essential (primary) hypertension] Onset: 2 Resolved: 4 01-22-2022 Chronic Joint disorders and dislocations; trauma-related (20 sources) Derangement of left knee; Translations: [Unspecified internal derangement of left knee] Onset: 4 02-18-2023 Chronic Nutritional deficiencies (20 sources) Vitamin D deficiency; Translations: [Vitamin D deficiency, unspecified] Onset: 3 01-22-2022 Chronic Osteoarthritis (20 sources) Osteoarthritis of knee; Translations: [Osteoarthritis of knee, unspecified] Onset: 4 02-18-2023 Chronic Other connective tissue disease (1 source) Other muscle spasm; Translations: [OTHER MUSCLE SPASM] Onset: 3 Episodic Other gastrointestinal disorders (1 source) Abnormal feces; Translations: [Other fecal abnormalities] Onset: 2 Episodic Other lower respiratory disease (1 source) Shortness of breath; Translations: [SHORTNESS OF BREATH] Onset: 3 Episodic Other nervous system disorders (1 source) Other chronic pain; Translations: [OTHER CHRONIC PAIN] Onset: 3 Chronic Other nervous system disorders (2 sources) Parkinsonism due to drug; Translations: [Other drug induced secondary parkinsonism] 03-14-2024 Chronic Other nutritional; endocrine; and metabolic disorders (20 sources) Body mass index 40+ - severely obese; Translations: [Body mass index (BMI) 40.0-44.9, adult] Onset: 4 02-03-2022 Chronic Other nutritional; endocrine; and metabolic disorders (18 sources) Obesity; Translations: [Obesity, unspecified] Onset: 4 01-22-2022 Chronic Other nutritional; endocrine; and metabolic disorders (1 source) Obesity, unspecified; Translations: [OBESITY UNSPECIFIED] Onset: 3 Chronic Other nutritional; endocrine; and metabolic disorders (14 sources) Obesity caused by energy imbalance; Translations: [Morbid (severe) obesity due to excess calories] Onset: 4 02-10-2024 Chronic Other upper respiratory disease (6 sources) Allergic disposition; Translations: [Other allergic rhinitis] Onset: 5 04-19-2024 Chronic Residual codes; unclassified (1 source) Sleep apnea, unspecified; Translations: [SLEEP APNEA UNSPECIFIED] Onset: 2 Chronic Residual codes; unclassified (20 sources) Obstructive sleep apnea syndrome; Translations: [Obstructive sleep apnea (adult) (pediatric)] Onset: 4 05-13-2023 Chronic Residual codes; unclassified (1 source) Localized edema; Translations: [Localized edema] 04-08-2024 Episodic Spondylosis; intervertebral disc disorders; other back problems (10 sources) Spondylosis without myelopathy or radiculopathy, lumbar region; Translations: [Other intervertebral disc degeneration, lumbar region] Onset: 2 Chronic Substance-related disorders (20 sources) Nicotine dependence, cigarettes, uncomplicated; Translations: [Tobacco [...] Da te Episodic/Chronic Deficiency and other anemia (20 sources) Acute megaloblastic anemia; Translations: [Other megaloblastic anemias, not elsewhere classified] Onset: 4 01-22-2022 Episodic E Codes: Adverse effects of medical drugs (1 source) Adverse effect of glucocorticoids and synthetic analogues, initial encounter; Translations: [ADVRS EFF GLUCOCORT SYN ANALOG INIT] Onset: 2 Episodic Headache; including migraine (20 sources) Migraine; Translations: [Migraine without aura] Onset: 3 Resolved: 4 01-22-2022 Chronic Mood disorders (20 sources) Mood disorders Onset: 4 06-03-2023 Nutritional deficiencies (20 sources) Cobalamin deficiency; Translations: [Deficiency of other specified B group vitamins] Onset: 4 01-22-2022 Episodic Open wounds of extremities (20 sources) Open wound of left foot; Translations: [Unspecified open wound, left foot, initial encounter] Onset: 3 Resolved: 4 01-26-2023 Episodic Other aftercare (1 source) Other senior living (current) drug therapy; Translations: [OTH PENITENTIARY CURRENT DRUG THERAPY] Onset: 3 Episodic Other and unspecified benign neoplasm (1 source) Polyp of colon; Translations: [POLYP OF COLON] Onset: 3 Episodic Other and unspecified benign neoplasm (20 sources) Hyperplastic polyp of intestine; Translations: [Polyp of colon] Onset: 4 02-18-2023 Episodic Other bone disease and musculoskeletal deformities (20 sources) Osteopenia; Translations: [Other specified disorders of bone density and structure, unspecified site] Onset: 4 01-22-2022 Episodic Other connective tissue disease (20 sources) Fibromyalgia; Translations: [Fibromyalgia] Onset: 2 Resolved: 4 01-22-2022 Episodic Other connective tissue disease (1 source) Fibromyalgia; Translations: [FIBROMYALGIA] Onset: 3 Episodic Other ear and sense organ disorders (20 sources) Hearing loss; Translations: [Unspecified hearing loss, unspecified ear] Onset: 4 Resolved: 4 01-22-2022 Chronic Other gastrointestinal disorders (4 sources) Other fecal abnormalities; Translations: [OTHER FECAL ABNORMALITIES] Onset: 3 Episodic Other inflammatory condition of skin (4 sources) Pruritus, unspecified; Translations: [PRURITUS UNSPECIFIED] Onset: 2 Episodic Other liver diseases (20 sources) Aspartate aminotransferase serum level raised; Translations: [Elevated SGOT (AST)] Onset: 2 02-18-2023 Episodic Other lower respiratory disease (20 sources) Dyspnea; Translations: [Shortness of breath] Onset: 4 03-25-2023 Episodic Other nervous system disorders (17 sources) Tremor; Translations: [Tremor, unspecified] Onset: 5 02-10-2024 Episodic Other non-traumatic joint disorders (20 sources) Pain in left knee; Translations: [Pain in joint, lower leg] Onset: 2 Resolved: 4 03-16-2023 Episodic Other nutritional; endocrine; and metabolic disorders (20 sources) Severe obesity; Translations: [Morbid (severe) obesity due to excess calories] Onset: 3 Resolved: 4 01-26-2023 Chronic Other screening for suspected conditions (not mental disorders or infectious disease) (20 sources) Stool DNA-based colorectal cancer screening positive; Translations: [Other fecal abnormalities] Onset: 2 02-03-2022 Episodic Other skin disorders (20 sources) Decorative tattoo; Translations: [Other specified disorders of pigmentation] Onset: 2 Resolved: 4 03-16-2023 Episodic Other upper respiratory infections (20 sources) Acute sinusitis; Translations: [Other acute sinusitis] Onset: 3 Resolved: 4 03-16-2023 Episodic Pneumonia (except that caused by tuberculosis or sexually transmitted disease) (18 sources) Community acquired pneumonia; Translations: [Pneumonia, unspecified organism] Onset: 4 Resolved: 4 01-03-2024 Episodic Residual codes; unclassified (20 sources) Edema of lower extremity; Translations: [Localized edema] Onset: 4 Resolved: 4 01-22-2022 Episodic Residual codes; unclassified (20 sources) Tobacco user; Translations: [Tobacco use] Onset: 4 Resolved: 4 01-22-2022 Episodic Residual codes; unclassified (1 source) Acquired absence of both cervix and uterus; Translations: [ACQUIRED ABSENCE BOTH CERVIX AND UTERUS] Onset: 3 Episodic Residual codes; unclassified (1 source) Tobacco use; Translations: [TOBACCO USE] Onset: 2 Episodic Residual codes; unclassified (1 source) Insomnia, unspecified; Translations: [INSOMNIA UNSPECIFIED] Onset: 2 Episodic Residual codes; unclassified (20 sources) Bilateral lower limb edema; Translations: [Localized edema] Onset: 3 03-16-2023 Episodic Residual codes; unclassified (20 sources) Exposure to carbon monoxide; Translations: [Contact with and (suspected) exposure to other hazardous substances] Onset: 4 Resolved: 4 03-16-2023 Episodic Residual codes; unclassified (20 sources) Edema of right lower limb; Translations: [Localized edema] Onset: 4 Resolved: 4 03-25-2023 Episodic Screening and history of mental health and substance abuse codes (20 sources) Tobacco use and exposure - finding; Translations: [Personal history of nicotine dependence] Onset: 2 Resolved: 4 03-16-2023 Episodic Spondylosis; intervertebral disc disorders; other back problems (20 sources) Chronic low back pain; Translations: [Chronic lumbar pain] Onset: 4 01-22-2022 Episodic Unclassified (1 source) LOW BACK PAIN, UNSPECIFIED; Translations: [LOW BACK PAIN, UNSPECIFIED] Onset: 3 Unclassified (1 source) CONTACT W/AND (SUSP) EXPOS COVID-19; Translations: [CONTACT W/AND (SUSP) EXPOS COVID-19] Onset: 3 Results Test Name Value Interpretation Reference Range Facility [facility] MICROALB CREAT RATIO RAN [place] 01-27-2024 CREATININE URINE RANDOM 235.95 mg/dL 20.00 - 300.00 mg/dL [facility] MICROALBUMIN URINE RANDOM <1.3 NINF - 30.0 mg/dL [facility] ALL BASIC METABOLIC PANELon 01-24-2024 Anion gap [Moles/Vol] 11.6 mmol/L [facility] Calcium [Mass/Vol] 8.9 mg/dL 8.5 - 10. 1 mg/dL [facility] Chloride [Moles/Vol] 103 mmol/L 98 - 10 7 mmol/L [facility] CO2 [Moles/Vol] 31.6 mmol/L 21.0 - 32.0 mmol/L [facility] Creatinine [Mass/Vol] 1.17 mg/dL High 0.55 - 1.02 mg/dL [facility] GFR/1.73 sq M.predicted CKD-EPI (S/P/Bld) [Vol rate/Area] 57 Low >=60 mL/min/1.73m 2 [facility] Glucose [Mass/Vol] 118 mg/dL High 74 - 106 mg/dL [facility] Potassium [Moles/Vol] 4.2 mmol/L 3.5 - 5.1 mmol/L [facility] Sodium [Moles/Vol] 142 mmol/L 136 - 145 mmol/L [facility] TBH EGFR-NON AF [place] 47 Low >=60 mL/min/1.73m 2 [facility] Urea nitrogen [Mass/Vol] 12 mg/dL 7.0 - 18.0 mg/dL [facility] Urea nitrogen/Creatinine [Mass ratio] 10.3 mg/mg [facility] ALL LIPID PROFILE (FASTING)o n 01-24-2024 CHOL HDL RATIO 2.9 [facility] Comment on above: 3.3 - 4.4 LOW RISK 4.4 - 7.1 AVERAGE RISK 7.1 - 11.0 MODERATE RISK >11.0 HIGH RISK Cholesterol [Mass/Vol] 152 mg/dL NINF - 200 mg/dL [facility] Cholesterol in HDL [Mass/Vol] 52 mg/dL 40 - 60 mg/dL [facility] Comment on above: > or =60 mg/dl - LOW CARDIOVASCULAR RISK <40 mg/dl - HIGH CARDIOVASCULAR RISK Magnesium [Mass/Vol] 70 mg/dL [facility] Comment on above: <100 mg/dl OPTIMAL 100-129 mg/dl NEAR OR ABOVE OPTIMAL 130-159 mg/dl BORDERLINE HIGH 160-189 mg/dl HIGH >190 mg/dl VERY HIGH Magnesium [Mass/Vol] 30.8 mg/dL [facility] Triglyceride [Mass/Vol] 154 mg/dL High NINF - 150 mg/dL [facility] No Panel Informationon 01-23 Interpretation and review of laboratory results Abnormal [facility] BLOOD GASES BTYon 07-08-2022 02 MODE ROOM AIR Normal [facility] Comment on above: Performed By: #### A BG ####[facility] [address] [place] [address]Dr. Phani El ALLENS TEST Positive Normal [facility] Comment on above: Performed By: #### A BG ####[facility] [address] [place] [address]Dr. Phani El Base excess Calc (Bld) [Moles/Vol] 1.4 mmol/L Normal -2.0-2.0 [facility] Comment on above: Performed By: #### A BG ####[facility] A[address] [place], [place] [address]Dr. Phani El BIPAP PRESSURE Normal [facility] Comment on above: Performed By: #### A BG ####[facility] Sx[address]rbqs[address] [place], [place] [address]Dr. Phani El CPAP Normal [facility] Comment on above: Performed By: #### A BG ####[facility] Ixfpis[address] [place], [place] [address]Dr. Phani El FIO2 Normal [facility] Comment on above: Performed By: #### A BG ####[facility] Lempeticqr[address] [place], [place] [address]Dr. Phani El HCO3 (Bld) [Moles/Vol] 26.2 mmol/L Critically high 22.0-26.0 [facility] Comment on above: Performed By: #### A BG ####[facility] [address] [place] [address]Dr. Phani El LPM Normal [facility] Comment on above: Performed By: #### A BG ####[facility] [address] [place] [address]Dr. Phani El MINUTE VOLUME Normal [facility] Comment on above: Performed By: #### A BG ####[facility] Ebemhitugj[address] [place], [place] [address]Dr. Phani El Oxygen (Bld) [Partial pressure] 56.1 mm[Hg] Critically low 80.0-100.0 [facility] Comment on above: Performed By: #### A BG ####[facility] Ypejwjyvl[address] [place], [place] [address]Dr. Phani El Oxygen saturation in Blood 92.0 % Critically low 95.0-100.0 [facility] Comment on above: Performed By: #### A BG ####[facility] Rixpqftt[address] [place], [place] [address]Dr. Phani El PCO2 42.6 mmHg Normal 35.0-45.0 [facility] Comment on above: Performed By: #### A BG ####[facility] O[address]ta[address] [place], [place] [address]Dr. Phani El PEEP Normal [facility] Comment on above: Performed By: #### A BG ####[facility] N[address]kc[address] [place], [place] [address]Dr. Phani El pH (Bld) 7.398 [pH] Normal 7.350-7.450 [facility] Comment on above: Performed By: #### A BG ####[facility] Cvnxks[address] [place], [place] [address]Dr. Phani El PIP Normal [facility] Comment on above: Performed By: #### A BG ####[facility] Eyxhxczil[address] [place], [place] [address]Dr. Phani El PS Normal [facility] Comment on above: Performed By: #### A BG ####[facility] Aevrhpwols[address] [place], [place] [address]Dr. Phani El PUNCTURE SITE RR Normal [facility] Comment on above: Performed By: #### A BG ####[facility] Xnbx[address] [place], [place] [address]Dr. Phani El RATE Normal [facility] Comment on above: Performed By: #### A BG ####[facility] [address] [place], [place] [address]On. Phani El VENT MODE Normal [facility] Comment on above: Performed By: #### A BG ####[facility] [address] [place], [place] [address]Yh. Phani El VT Normal [facility] Comment on above: Performed By: #### A BG ####[facility] [address] [place], [place] [address]Zf. Phani El ECHOCARDIO M/2D COMPLETEon 0 07-08-2022 ECHOCARDIO M/2D COMPLETE Patient: FRANKY SRINIVASAN I. Exam Date: 07/08/2022 : 1965 Gender:F Ordering : DR. MAGDALENA DOWNING . Admission #: [id number] Family : [employer]PERVISOR JAYMIE PHOENIX [employer] SUPER[employer]OR Order #: [id number] CLICK HERE TO VIEW EXAM ECHOCARDIOGRAM REPORT [...] MELISSA ROSENBERG Date: 2022-05-29 09:36 Normal [facility] CBC AUTO DIFFon 05-05-2022 BASO # 0.1 103/ul Normal 0.0-0.1 [facility] Comment on above: Performed By: #### C BC #### [facility] [address] [place] [address] [address] Phani El Basophils/100 WBC (Bld) 0.8 % Normal 0.2-2.0 [facility] Comment on above: Performed By: #### C BC #### [facility] [address] [place] [address] [address] Phani El EO # 0.1 103/ul Normal 0.0-0.7 [facility] Comment on above: Performed By: #### C BC #### [facility] [address] [place] [address] [address] Phani El Eosinophils/100 WBC (Bld) 2.0 % Normal 0.9-7.0 [facility] Comment on above: Performed By: #### C BC #### [facility] [address] [place] [address] [address] Phani El Erythrocyte distribution width (RBC) [Ratio] 14.0 % Normal 11.0-15.0 [facility] Comment on above: Performed By: #### C BC #### [facility] [address] [address] [address] Phani El Hematocrit (Bld) [Volume fraction] 48.7 % Critically high 36.0-48.0 [facility] Comment on above: Performed By: #### C BC #### [facility] [address] [place] [address] [address] Phani El Hemoglobin (Bld) [Mass/Vol] 15.9 g/dL Normal 12.0-16.0 [facility] Comment on above: Performed By: #### C BC #### [facility] [address] [address] [address] Phani El IG # 0.05 10e3/ul Critically high 0.00-0.03 [facility] Comment on above: Performed By: #### C BC #### [facility] [address] [address] [address] Phani El IG % 0.8 % Critically high 0.0-0.5 [facility] Comment on above: Performed By: #### C BC #### [facility] [address] [place] [address] Dr. Phani El LYMPH # 1.9 103/ul Normal 1.2-3.8 [facility] Comment on above: Performed By: #### C BC #### [facility] [address] [place] [address] Dr. Phani El Lymphocytes/100 WBC (Bld) 30.1 % Normal 20.5-60.0 [facility] Comment on above: Performed By: #### C BC #### [facility] [address] [place] [address] Dr. Phani El MANUAL DIFF REQ NO Normal [facility] Comment on above: Performed By: #### C BC #### [facility] [address] [place] [address] Dr. Phani El MCH (RBC) [Entitic mass] 32.9 pg Normal 26.7-34.0 [facility] Comment on above: Performed By: #### C BC #### [facility] [address] [place] [address] Dr. Phani El MCHC (RBC) [Mass/Vol] 32.6 g/dL Normal 29.9-35.2 [facility] Comment on above: Performed By: #### C BC #### [facility] [address] [place] [address] Dr. Phani El MCV (RBC) [Entitic vol] 100.8 fL Critically high 81.0-99.0 [facility] Comment on above: Performed By: #### C BC #### [facility] [address] [place] [address] Dr. Phani El MONO # 0.5 103/ul Normal 0.3-0.8 [facility] Comment on above: Performed By: #### C BC #### [facility] [address] [place] [address] Dr. Phani El Monocytes/100 WBC (Bld) 7.2 % Normal 1.7-12.0 [facility] Comment on above: Performed By: #### C BC #### [facility] [address] [address] [address] Phani El NEUT # 3.8 103/ul Normal 1.4-6.5 [facility] Comment on above: Performed By: #### C BC #### [facility] [address] [address] [address] Phani El Neutrophils/100 WBC (Bld) 59.1 % Normal 43.0-75.0 [facility] Comment on above: Performed By: #### C BC #### [facility] [address] [place] [address] [address] Phani El Platelet mean volume (Bld) [Entitic vol] 11.0 fL Normal 9.5-13.5 [facility] Comment on above: Performed By: #### C BC #### [facility] [address] [place] [address] Dr. Phani El PLT 167 103/ul Normal 150-450 [facility] Comment on above: Performed By: #### C BC #### [facility] [address] [address] [address] Phani El RBC 4.83 106/ul Normal 4.20-5.40 [facility] Comment on above: Performed By: #### C BC #### [facility] [address] [place] [address] [address] Phani El WBC 6.4 103/ul Normal 4.0-11.0 [facility] Comment on above: Performed By: #### C BC #### [facility] [address] [place] [address] [address] Phani El GLYCOHEMOGLOBIN A1Con 2022 ADA RECOMMENDATION SEE BELOW Normal [facility] Comment on above: Result Comment: ADA RECOMMENDED LIMIT 4.0 - 6.0 ADA THERAPEUTIC TARGET < 7.0 ACTION SUGGESTED > 7.0 Performed By: #### A 1C ####[facility] [address] [place] [address]Dr. Phani El Glucose [Mass/Vol] 114 mg/dL Normal [facility] Comment on above: Performed By: #### A 1C ####[facility] [address] [place], [place] [address]CeDr. Phani El HbA1c (Bld) [Mass fraction] 5.6 % Normal 4.5-6.2 [facility] Comment on above: Performed By: #### A 1C ####[facility] [address] [place] [address]Dr. Phani El LIPID PROFILEon 05-05-2022 CHOL-HDL RATIO NORM SEE BELOW Normal [facility] Comment on above: Result Comment: 3.3 - 4.4 LOW RISK 4.4 - 7.1 AVERAGE RISK 7.1 - 11.0 MODERATE RISK >11.0 HIGH RISK Performed By: #### C MP, LIPID #### [facility] [address] [address] [address] Phani El Cholesterol [Mass/Vol] 178 mg/dL Normal <=200 [facility] Comment on above: Performed By: #### C MP, LIPID #### [facility] [address] [place] [address] [address] Phani El Cholesterol in HDL [Mass/Vol] 54 mg/dL Normal 40-60 [facility] Comment on above: Performed By: #### C MP, LIPID #### [facility] [address] [place] [address] [address] Phani El Cholesterol in LDL [Mass/Vol] 86.6 mg/dL Normal [facility] Comment on above: Performed By: #### C MP, LIPID #### [facility] [address] [place] [address] [address] Phani El Cholesterol.total/Ch olesterol in HDL [Mass ratio] 3.3 {ratio} Normal [facility] Comment on above: Performed By: #### C MP, LIPID #### [facility] [address] [place] [address] [address] Phani El HDL NORMAL > or = 60 mg/dl - LO W CARDIOVASCULAR RISK <40 mg/dl - HIGH CARDIOVASCULAR RISK Normal [facility] Comment on above: Performed By: #### C MP, LIPID #### [facility] [address] [place] [address] [address] Phani El LDL CALC NORMAL SEE BELOW Normal [facility] Comment on above: Result Comment: <100 mg/dl OPTIMAL 100 - 129 mg/dl NEAR OR ABOVE OPTIMAL 130 - 159 mg/dl BORDERLINE HIGH 160 - 189 mg/dl HIGH >190 mg/dl VERY HIGH Performed By: #### C MP, LIPID #### [facility] [address] [place] [address] [address] Phani El Triglyceride [Mass/Vol] 187 mg/dL Critically high <=150 [facility] Comment on above: Performed By: #### C MP, LIPID #### [facility] [address] [place] [address] [address] Phani El VLDL CALC 37.4 mg/dL Normal [facility] Comment on above: Performed By: #### C MP, LIPID #### [facility] [address] [place] [address] [address] Phani El PROF 14(COMP METB)on 023 Albumin [Mass/Vol] 3.6 g/dL Normal 3.4-5.0 [facility] Comment on above: Performed By: #### C MP, LIPID ####[facility] [address] [place] [address]DrCindy El Albumin/Globulin [Mass ratio] 1.1 {ratio} Normal [facility] Comment on above: Performed By: #### C MP, LIPID ####[facility] [address] [place] [address]Dr. Phani El ALP [Catalytic activity/Vol] 91 U/L Normal 46-116 [facility] Comment on above: Performed By: #### C MP, LIPID ####[facility] [address] [place], [place] [address]TmCindy El ALT [Catalytic activity/Vol] 34 U/L Normal 14-59 [facility] Comment on above: Performed By: #### C MP, LIPID ####[facility] [address] [place], [place] [address]NlCindy El Anion gap [Moles/Vol] 11.6 mmol/L Normal [facility] Comment on above: Performed By: #### C MP, LIPID ####[facility] [address] [place] [address]Dr. Phani El AST [Catalytic activity/Vol] 18 U/L Normal 15-37 [facility] Comment on above: Performed By: #### C MP, LIPID ####[facility] [address] [place] [address]Dr. Phani El Bilirubin [Mass/Vol] 0.6 mg/dL Normal 0.2-1.0 [facility] Comment on above: Performed By: #### C MP, LIPID ####[facility] [address] [place] [address]Dr. Phani El Calcium [Mass/Vol] 9.2 mg/dL Normal 8.5-10.1 [facility] Comment on above: Performed By: #### C MP, LIPID ####[facility] [address] [place] [address]Dr. Phani El Chloride [Moles/Vol] 106 mmol/L Normal 98-107 [facility] Comment on above: Performed By: #### C MP, LIPID ####[facility] [address] [place] [address]Dr. Phani El CO2 [Moles/Vol] 32.3 mmol/L Critically high 21.0-32.0 [facility] Comment on above: Performed By: #### C MP, LIPID ####[facility] [address] [place] [address]Dr. Phani El Creatinine [Mass/Vol] 1.04 mg/dL Critically high 0.55-1.02 [facility] Comment on above: Performed By: #### C MP, LIPID ####[facility] [address] [place] [address]Dr. Phani Nikko EGFR-AF [place] >60 Normal >=60 [facility] Comment on above: Performed By: #### C MP, LIPID ####[facility] [address] [place] [address]Dr. Loryzach Nikko EGFR-NON AF [place] 54 mL/min/1.73m2 Critically low >=60 [facility] Comment on above: Performed By: #### C MP, LIPID ####[facility] [address] [place] [address]Dr. Phani El Globulin (S) [Mass/Vol] 3.4 g/dL Normal [facility] Comment on above: Performed By: #### C MP, LIPID ####[facility] [address] [place] [address]Dr. Loryzach Nikko Glucose [Mass/Vol] 124 mg/dL Critically high 74-106 [facility] Comment on above: Performed By: #### C MP, LIPID ####[facility] [address] [place] [address]Dr. Phani El Potassium [Moles/Vol] 3.9 mmol/L Normal 3.5-5.1 [facility] Comment on above: Performed By: #### C MP, LIPID ####[facility] [address] [place], [place] [address]Dr. Phani El Protein [Mass/Vol] 7.0 g/dL Normal 6.4-8.2 [facility] Comment on above: Performed By: #### C MP, LIPID ####[facility] Ion[address] [place], [place] [address]Dr. Phani El Sodium [Moles/Vol] 146 mmol/L Critically high 136-145 [facility] Comment on above: Performed By: #### C MP, LIPID ####[facility] [address] [place], [place] [address]Dr. Phani El Urea nitrogen [Mass/Vol] 14.0 mg/dL Normal 7.0-18.0 [facility] Comment on above: Performed By: #### C MP, LIPID ####[facility] [address] [place], [place] [address]Dr. Phani El Urea nitrogen/Creatinine [Mass ratio] 13.5 mg/mg Normal [facility] Comment on above: Performed By: #### C MP, LIPID ####[facility] [address] [place], [place] [address]Dr. Phani El VITAMIN B12on 03-28-2023 Cobalamin (Vitamin B12) [Mass/Vol] 321.0 pg/mL Normal 193.0-986.0 [facility] Comment on above: Performed By: #### V ITAD, VITB12 #### [facility] [address] [place], [place] [address] Dr. Phani El VITAMIN D 25 OHon 05-05-2022 VIT D 25-OH 58.7 ng/mL Normal [facility] Comment on above: Performed By: #### V ITAD, VITB12 #### [facility] [address] [place], [place] [address] Dr. Phani El VIT D RANGES SEE BELOW Normal [facility] Comment on above: Result Comment: <20 ng/mL Vit D deficient 20 - <30 ng/mL Vit D insufficient 30 - 100 ng/mL Vit D sufficient >100 ng/mL Potential Toxicity Performed By: #### V ITAD, VITB12 #### [facility] [address] [place] [address] [address] Phani El XR CHEST 2 Von [...] LORI FROST Date: 2022-05-05 10:05 Normal [facility] Ambulatory Visit Summaryon 0 03-24-2022 Ambulatory Visit Summary QUYENSTIVEN MERCADOSHAINA Greenberg :1965 Visit Date:03/24/2022 Ambulatory Visit Instructions [...] B12 deficiency Vitamin D deficiency Normal [facility] Office/Clini c Noteon 03-24-2022 General [...] - Not Given Patient Refuses Normal [facility] Comment on above: Result Comment: Elec tronically Signed By: NABIL AMADOR, Bryson Steinberg\Date and Time Signed: 03/24/22 13:12 EST Reminderson 03-24-2022 Reminders - From: Kristine Harrison LPN To: N - Clinical; Sent: 03/24/2022 13:05:34 EST Show up: 01/26/2032 07:00:00 EST Subject: colonoscopy recall Due Date/Time: 02/26/2032 07:00:00 EST Reminder/Recall Patient is due for screening colonoscopy 02/26/2032. Normal [facility] Covid-19 PCR ([facility])on 02-10 SARS-CoV-2 (COVID-19) RNA MARISOL+probe Ql (Unsp spec) Detected Abnormal NOT DETECTED [facility] Comment on above: Result Comment: This test is not yet approved or cleared by the [place] FDA. When there are no FDA-approved or cleared tests available, and other criteria are met, FDA can make tests available under an emergency access mechanism called an Emergency Use Authorization (EUA). The EUA for this test is supported by the [place] of Health and Human Service's (HHS's) declaration [...] used). Performed By: #### C VDTBH #### [facility] [address] [place] [address] [address] Phani El INFLUENZA A AND B AGon 03-10 [facility] SEE BELOW Normal [facility] Comment on above: Result Comment: Nega tive for Flu A protein angiten. Infection due to Flu A cannot be ruled out. Flu A angiten in the sample may be below the detection limit of the test. Performed By: #### I NFLUAB ####[facility] [address] [place], [place] [address]KgDr. Phani El INFLUBNEGH SEE BELOW Normal [facility] Comment on above: Result Comment: Nega tive for Flu B protein antigen. Infection due to Flu B cannot be ruled out. Flu B antigen in the sample may be below the detection limit of the test. Performed By: #### I NFLUAB ####[facility] [address] [place], [place] [address]Lw. Phani El INFLUENZA A AG Negative Normal NEGATIVE SEE COMMENT [facility] Comment on above: Performed By: #### I NFLUAB ####[facility] [address] [place], [place] [address]Xv. Phani El INFLUENZA B AG Negative Normal NEGATIVE SEE COMMENT [facility] Comment on above: Performed By: #### I NFLUAB ####[facility] [address] [place], [place] [address]Zf. Phani El Covid-19 PCR ([facility])on 02-09 SARS-CoV-2 (COVID-19) RNA MARISOL+probe Ql (Unsp spec) Detected Abnormal NOT DETECTED [facility] Comment on above: Result Comment: This test is not yet approved or cleared by the [place] FDA. When there are no FDA-approved or cleared tests available, and other criteria are met, FDA can make tests available under an emergency access mechanism called an Emergency Use Authorization (EUA). The EUA for this test is supported by the Director Of Graduate Medical Education of Health and Human Service's declaration that [...] used). Performed By: #### C VDTBH #### [facility] [address] [place], [place] [address] Dr. Phani El Pathology Noteon 02-27-2022 Pathology Note [id number] 0CD:127 Normal [facility] Outside Colonoscopyon 2022 Outside Colonoscopy [id number] 0CD:127 Normal [facility] Reminderson 02-26-2022 Reminders - From: Christy KIM Kristine N To: Christy JULIOYoungKristine N; Sent: 02/26/2022 11:14:25 EST Show up: 05/18/2022 07:00:00 EDT Subject: Ambulatory Reminder Due Date/Time: 05/27/2022 07:00:00 EDT Reminder/Recall log in to extra lap top in [place] to keep account active Normal [facility] Lab Reportson 02-23-2022 Lab Reports [id number] 0CD:127 Normal [facility] Covid-19 PCR (CVDTB)on 02-08 SARS-CoV-2 (COVID-19) RNA MARISOL+probe Ql (Unsp spec) Not detected Normal NOT DETECTED [facility] Comment on above: Result Comment: This test is not yet approved or cleared by the [place] FDA. When there are no FDA-approved or cleared tests available, and other criteria are met, FDA can make tests available under an emergency access mechanism called an Emergency Use Authorization (EUA). The EUA for this test is supported by the Director Of Graduate Medical Education of Health and Human Service's (HHS's) declaration [...] with SARS-CoV-2. Performed By: #### C VDTB ####[facility] [address] [place], [place] [address]DfCindy El Pre-Certification Formon Pre-Certification Form [id number] 00CD:127 Normal [facility] Consent for Procedure/Surger yon 02-05-2022 Consent for Procedure/Surgery [id number] 0CD:127 Normal [facility] Formson 02-05-2022 Forms [id number] 0CD:127 Normal [facility] Physician Referralon 022 Physician Referral [id number] 0CD:127 Normal [facility] MRI Knee w/o Lefton 12-26-19 MRI [...] by Jason Sanchez on 12/25/2021 1505 Normal [facility] MRI LSPINE WO CONon 12-05-19 MRI LSPINE [...] by: NADINE GRANT Date: 2021-12-04 17:54 [facility] by: NADINE GRANT Date: 2021-09-30 07:20 Normal [facility] MRI Knee w/o Lefton 07-30-19 22 MRI [...] by Robby Diaz on 07/30/2021 1316 Normal [facility] Chain [employer] Hand Vital Signs Date Time Vital Sign Value Performing Clinician Nicolasa gardiner 03-14-2024 14:53-0500 Body mass index (BMI) [Ratio] 40.7 kg/m2 Christopher Wong DO Work Phone: [facility] 03-14-2024 14:53-0500 Body weight 110.95 kg Christopher Wong DO Work Phone: [facility] 03-14-2024 14:53-0500 Diastolic blood pressure 82 mm[Hg] [facility] Work Phone: [facility] 03-14-2024 14:53-0500 Heart rate 76 /min [facility] Work Phone: [facility] 03-14-2024 14:53-0500 SaO2% (BldA) [Mass fraction] 94 % [facility] Work Phone: [facility] 03-14-2024 14:53-0500 Systolic blood pressure 128 mm[Hg] [facility] Work Phone: [facility] 02-10-2024 13:31-0500 Body height 165.1 cm Jaymie Phoenix SUBSTATION SUPERINTENDENT Work Phone: [facility] 02-10-2024 13:31-0500 Body mass index (BMI) [Ratio] 40.94 kg/m2 Jaymie Phoenix SUBSTATION SUPERINTENDENT Work Phone: [facility] 02-10-2024 13:31-0500 Body temperature 98.1 [degF] Jaymie Phoenix SUBSTATION SUPERINTENDENT Work Phone: [facility] 02-10-2024 13:31-0500 Body weight 111.58 kg Jaymie Phoenix SUBSTATION SUPERINTENDENT Work Phone: [facility] 02-10-2024 13:31-0500 Diastolic blood pressure 80 mm[Hg] Jaymie Aichholz SUBSTATION SUPERINTENDENT Work Phone: [facility] 02-10-2024 13:31-0500 Heart rate 87 /min Jaymie Aichholz SUBSTATION SUPERINTENDENT Work Phone: [facility] 02-10-2024 13:31-0500 Respiratory rate 18 /min Jaymie Aichholz SUBSTATION SUPERINTENDENT Work Phone: [facility] 02-10-2024 13:31-0500 SaO2% (BldA) [Mass fraction] 94 % Jaymie Aichholz SUBSTATION SUPERINTENDENT Work Phone: [facility] 02-10-2024 13:31-0500 Systolic blood pressure 110 mm[Hg] Jaymie Aichholz SUBSTATION SUPERINTENDENT Work Phone: [facility] 01-03-2024 10:30-0500 Body height 165.1 cm Jaymie Aichholz SUBSTATION SUPERINTENDENT Work Phone: [facility] 01-03-2024 10:30-0500 Body mass index (BMI) [Ratio] 40.6 kg/m2 Jaymie Aichholz SUBSTATION SUPERINTENDENT Work Phone: [facility] 01-03-2024 10:30-0500 Body temperature 98.1 [degF] Jaymie Aichholz SUBSTATION SUPERINTENDENT Work Phone: [facility] 01-03-2024 10:30-0500 Body weight 110.68 kg Jaymie Aichholz SUBSTATION SUPERINTENDENT Work Phone: [facility] 01-03-2024 10:30-0500 Diastolic blood pressure 86 mm[Hg] Jaymie Aichholz SUBSTATION SUPERINTENDENT Work Phone: [facility] 01-03-2024 10:30-0500 Heart rate 89 /min Jaymie Aichholz SUBSTATION SUPERINTENDENT Work Phone: [facility] 01-03-2024 10:30-0500 Respiratory rate 19 /min Jaymie Aichholz SUBSTATION SUPERINTENDENT Work Phone: [facility] 01-03-2024 10:30-0500 SaO2% (BldA) [Mass fraction] 91 % Jaymie Aichholz SUBSTATION SUPERINTENDENT Work Phone: [facility] 01-03-2024 10:30-0500 Systolic blood pressure 106 mm[Hg] Jaymie Ducholz SUBSTATION SUPERINTENDENT Work Phone: [facility] 03-25-2023 13:13-0500 Body height 165.1 cm Jaymie Ducholz SUBSTATION SUPERINTENDENT Work Phone: [facility] 03-25-2023 13:13-0500 Body mass index (BMI) [Ratio] 42.9 kg/m2 Jaymie Ducholz SUBSTATION SUPERINTENDENT Work Phone: [facility] 03-25-2023 13:13-0500 Body temperature 97.5 [degF] Jaymie Francoisz SUBSTATION SUPERINTENDENT Work Phone: [facility] 03-25-2023 13:13-0500 Body weight 116.94 kg Jaymie Xavierholz SUBSTATION SUPERINTENDENT Work Phone: [facility] 03-25-2023 13:13-0500 Diastolic blood pressure 68 mm[Hg] Jaymie Alessandroz SUBSTATION SUPERINTENDENT Work Phone: [facility] 03-25-2023 13:13-0500 Heart rate 71 /min Jaymie Ducholz SUBSTATION SUPERINTENDENT Work Phone: [facility] 03-25-2023 13:13-0500 Respiratory rate 20 /min Jaymie Ducholz SUBSTATION SUPERINTENDENT Work Phone: [facility] 03-25-2023 13:13-0500 SaO2% (BldA) [Mass fraction] 95 % Jaymie Alesasndroz SUBSTATION SUPERINTENDENT Work Phone: [facility] 03-25-2023 13:13-0500 Systolic blood pressure 108 mm[Hg] Jaymie Ducholz SUBSTATION SUPERINTENDENT Work Phone: [facility] 03-16-2023 13:35-0500 Body height 165.1 cm Jaymie Ducholz SUBSTATION SUPERINTENDENT Work Phone: [facility] 03-16-2023 13:35-0500 Body mass index (BMI) [Ratio] 41.6 kg/m2 Jaymie Francoisz SUBSTATION SUPERINTENDENT Work Phone: [facility] 03-16-2023 13:35-0500 Body temperature 98.4 [degF] Jaymie Francoisz SUBSTATION SUPERINTENDENT Work Phone: [facility] 03-16-2023 13:35-0500 Body weight 113.4 kg Jaymie Francoisz SUBSTATION SUPERINTENDENT Work Phone: [facility] 03-16-2023 13:35-0500 Diastolic blood pressure 72 mm[Hg] Jaymie Xavierholz SUBSTATION SUPERINTENDENT Work Phone: [facility] 03-16-2023 13:35-0500 Heart rate 77 /min Jaymie Xavierholz SUBSTATION SUPERINTENDENT Work Phone: [facility] 03-16-2023 13:35-0500 Respiratory rate 18 /min Jaymie Xavierholz SUBSTATION SUPERINTENDENT Work Phone: [facility] 03-16-2023 13:35-0500 SaO2% (BldA) [Mass fraction] 95 % Jaymiecaesar Francoisz SUBSTATION SUPERINTENDENT Work Phone: [facility] 03-16-2023 13:35-0500 Systolic blood pressure 112 mm[Hg] Jaymie Xavierholz SUBSTATION SUPERINTENDENT Work Phone: [facility] 02-03-2022 13:27-0500 Blood Pressure Location Bryson SAMPSON [facility] 02-03-2022 13:27-0500 Diastolic blood pressure 80 mm[Hg] Bryson RACHELL [facility] 02-03-2022 13:27-0500 Heart rate 72 /min Bryson SAMPSON [facility] 02-03-2022 13:27-0500 Respiratory rate 16 /min Bryson SAMPSON [facility] 02-03-2022 13:27-0500 Systolic blood pressure 126 mm[Hg] [facility] Encounter Date Encounter Type Care Provider Facility Start: 06-27-2024 ambulatory Alphonse Patton acility: Start: 06-26-2024 End: 06-26-2024 Refill Jaymie Aichholz SUBSTATION SUPERINTENDENT Work Phone: [facility] Comment on above: Tobacco dependence ( Primary Dx) Start: 06-14-2024 End: 06-14-2024 Refill Jaymie Aichholz SUBSTATION SUPERINTENDENT Work Phone: [facility] Comment on above: Mixed hyperlipidemia (CMS/HCC) Start: 05-09-2024 End: 05-09-2024 Refill Jaymie Aichholz SUBSTATION SUPERINTENDENT Work Phone: [facility] Comment on above: Fibromyalgia Start: 04-19-2024 End: 04-19-2024 Refill Jaymie Aichholz SUBSTATION SUPERINTENDENT Work Phone: [facility] Comment on above: Environmental and se asonal allergies (Primary Dx); COPD mixed type (CMS/HCC) Start: 04-08-2024 End: 04-10-2024 Refill Jaymie Aichholz SUBSTATION SUPERINTENDENT Work Phone: [facility] Comment on above: Fibromyalgia; Localized edema; Mixed hyperlipidemia (CMS/HCC) Start: 03-14-2024 End: 03-14-2024 Office outpatient new 30 minutes Saumya Back DO Work Phone: [facility] Comment on above: 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); Tremor Start: 03-14-2024 End: 03-14-2024 ambulatory SAUMYA BACK Not Available Start: 03-14-2024 End: 03-14-2024 Bamboo flowsheet Saumya Back DO Work Phone: [facility] Start: 03-14-2024 End: 03-14-2024 Bamboo flowsheet Saumya Back DO Work Phone: [facility] Start: 02-10-2024 End: 02-10-2024 Bamboo flowsheet Jaymie Xaviermaday SUBSTATION SUPERINTENDENT Work Phone: [facility] Start: 02-10-2024 End: 02-10-2024 Bamboo flowsheet Jaymie Francoiservin SUBSTATION SUPERINTENDENT Work Phone: [facility] Start: 02-10-2024 End: 02-10-2024 ambulatory JAYMIE MADDYNikkiMADAY Not Available Start: 02-10-2024 End: 02-10-2024 Office outpatient visit 25 minutes Jaymie Xaviermaday SUBSTATION SUPERINTENDENT Work Phone: [facility] Comment on above: COPD with acute exac erbation (CMS/HCC) (Primary Dx); Morbid (severe) obesity due to excess calories (CMS/HCC); Body mass index (BMI) 40.0-44.9, adult (CMS/[facility]); WINSOME (obstructive sleep apnea); COPD mixed type (CMS/[facility]); Gastroesophageal reflux disease, unspecified whether esophagitis present; Tobacco dependence; Gastro-esophageal reflux disease without esophagitis; Tremor Start: 02-03-2024 End: 02-06-2024 Refill Jaymie Maddynikkimaday SUBSTATION SUPERINTENDENT Work Phone: [facility] Comment on above: Fibromyalgia Start: 01-27-2024 End: 01-27-2024 Clinisync Result Encounter Jaymie Xaviermaday SUBSTATION SUPERINTENDENT Work Phone: [facility] External Department Unsolicited Start: 01-27-2024 End: 01-27-2024 Clinisync Result Encounter Jaymie Xaviermaday SUBSTATION SUPERINTENDENT Work Phone: [facility] External Department Unsolicited Start: 01-24-2024 End: 01-24-2024 Clinisync Result Encounter Jaymie Maddynikkimaday SUBSTATION SUPERINTENDENT Work Phone: [facility] External Department Unsolicited Start: 01-24-2024 End: 01-24-2024 Clinisync Result Encounter Jaymie Xaviermaday SUBSTATION SUPERINTENDENT Work Phone: [facility] External Department Unsolicited Start: 01-03-2024 End: 01-03-2024 Bamboo flowsheet Jaymie Alban SUBSTATION SUPERINTENDENT Work Phone: [facility] Start: 01-03-2024 End: 01-03-2024 Bamboo flowsheet Jaymie Alban SUBSTATION SUPERINTENDENT Work Phone: [facility] Start: 01-03-2024 End: 01-03-2024 Office outpatient visit 25 minutes Jaymie Phoenix SUBSTATION SUPERINTENDENT Work Phone: [facility] Comment on above: WINSOME (obstructive sle ep apnea) (Primary Dx); COPD mixed type (CMS/HCC); Primary hypertension ([facility]/HCC); Fibromyalgia; BMI 40.0-44.9, adult ([facility]); Tobacco dependence; Mixed hyperlipidemia ([facility]); Vitamin D deficiency; Vitamin B12 deficiency; COPD with acute exacerbation ([facility]) Start: 01-03-2024 End: 01-03-2024 ambulatory JAYMIE ALBAN Not Available Start: 12-31-2023 End: 12-31-2023 Refill Jaymie Ducholz SUBSTATION SUPERINTENDENT Work Phone: [facility] Start: 12-30-2023 End: 12-31-2023 Refill Jaymie Alessandroz SUBSTATION SUPERINTENDENT Work Phone: [facility] Comment on above: Fibromyalgia Start: 12-25-2023 End: 12-27-2023 Clinisync Result Encounter Generic External Data Provider [facility] External Department Unsolicited Start: 12-25-2023 End: 12-27-2023 Clinisync Result Encounter Generic External Data Provider [facility] External Department Unsolicited Start: 12-24-2023 End: 12-27-2023 Clinisync Result Encounter Generic External Data Provider [facility] External Department Unsolicited Start: 12-24-2023 End: 12-27-2023 Clinisync Result Encounter Generic External Data Provider [facility] External Department Unsolicited Start: 11-24-2023 End: 11-24-2023 Refill Jaymie Aichholz SUBSTATION SUPERINTENDENT Work Phone: [facility] Comment on above: Mixed hyperlipidemia (CMS/HCC) Start: 10-26-2023 End: 10-26-2023 Refill Jaymie Aichholz SUBSTATION SUPERINTENDENT Work Phone: [facility] Comment on above: Fibromyalgia; Gastro-esophageal reflux disease without esophagitis Start: 06-03-2023 End: 06-03-2023 ambulatory JAYMIE AICHHOLZ Not Available Start: 06-03-2023 Patient encounter procedure Jaymie Aichholz SUBSTATION SUPERINTENDENT Work Phone: [facility] Start: 05-13-2023 End: 05-13-2023 ambulatory JAYMIE AICHHOLZ Not Available Start: 04-26-2023 End: 04-26-2023 ambulatory JAYMIE AICHHOLZ Not Available Start: 03-25-2023 Bamboo flowsheet Jaymie Aichholz SUBSTATION SUPERINTENDENT Work Phone: [facility] Start: 03-25-2023 Bamboo flowsheet Jaymie Aichholz SUBSTATION SUPERINTENDENT Work Phone: [facility] Start: 03-25-2023 End: 03-25-2023 ambulatory JAYMIE AICHHOLZ Not Available Start: 03-25-2023 End: 03-25-2023 Office outpatient visit 25 minutes Jaymie Aichholz SUBSTATION SUPERINTENDENT Work Phone: [facility] Comment on above: Edema of right lower extremity (Primary Dx); BMI 40.0-44.9, adult (CMS/HCC); Shortness of breath; COPD mixed type (CMS/HCC); Primary hypertension (CMS/HCC); Bilateral lower extremity edema Start: 03-16-2023 End: 03-16-2023 Office outpatient visit 25 minutes Jaymie Aichholz SUBSTATION SUPERINTENDENT Work Phone: [facility] Comment on above: COPD mixed type (CMS /HCC) (Primary Dx); Tobacco dependence; BMI 40.0-44.9, adult (CMS/HCC); Body mass index [BMI] 40.0-44.9, adult (Z68.41); Primary hypertension (CMS/HCC); Bilateral lower extremity edema Start: 07-08-2022 ambulatory [employer]PER[employer] JAYMIE AICHHOLZ Facil ity:H1 Start: 05-29-2022 End: 05-30-2022 ambulatory MEREDITH PHOENIX Facility:[facility]1 Start: 05-05-2022 End: 05-06-2022 ambulatory MEREDITH PHOENIX Facility:[facility] Start: 04-30-2022 End: 05-01-[address] JIM ALLAN . Facility:[facility] Start: 03-31-2022 End: 03-31-[address] JIM ALLAN . Facility:[facility] Start: 03-27-[address] JIM ALLAN . Faci lity:H1 Start: 03-24-2022 End: 03-25-2022 ambulatory Bryson SAMPSON Facility:[facility] Start: 03-17-2022 ambulatory Bryson SAMPSON Facility : [facility] Start: 03-10-2022 End: 03-10-2022 ambulatory MEREDITH PHOENIX Facility:[facility] Start: 03-02-2022 Encounter for preprocedural laboratory examination DR JIM ALLAN . [facility] Start: 02-28-2022 End: 03-01-2022 Encounter for preprocedural laboratory examination MEREDITH PHOENIX Facility:[facility]1 Start: 02-28-2022 End: 03-01-2022 ambulatory MEREDITH PHOENIX Facility:[facility] Start: 02-25-2022 End: 02-26-2022 ambulatory Bryson SAMPSON Facility:[id number] Start: 02-21-2022 End: 02-22-[address] BRYSON SAMPSON . Facility:[facility]1 Start: 02-06-2022 End: 02-07-2022 ambulatory JENNY THORNE . Facility:[facility] Start: 02-03-2022 End: 02-04-2022 ambulatory Tracy Piper Castañedanikkimaday Facility:[facility] Start: 02-03-2022 End: 02-03-2022 Patient encounter procedure Bryson SAMPSON General Surgery Nabil/Christy Escobar Start: 01-13-2022 End: 01-13-[address] JIM ALLNA . Facility:[facility]1 Start: 01-08-2022 End: 01-09-2022 ambulatory [...] . Facility:[facility]1 Start: 09-29-2021 End: 09-30-2021 ambulatory [employer] SUPERVISOR JAYMIE PHOENIX Facility:[facility]1 Start: 09-20-2021 End: 09-20-2021 ambulatory GLENROY BOWERS . Facility: Procedures Date Procedure Procedure Detail Performing Clinician Start: 02-10-2024 Mammography Jaymie kohler SUBSTATION SUPERINTENDENT Work Phone: Start: 01-27-2024 [facility] MICROALB CREAT R ATIO RANDOM Jaymie Phoenix SUBSTATION SUPERINTENDENT Work Phone: Start: 01-24-2024 ALL BASIC METABOLIC PANEL Jaymie Phoenix SUBSTATION SUPERINTENDENT Work Phone: Start: 01-24-2024 ALL LIPID PROFILE (FASTING) Jaymie Phoenix SUBSTATION SUPERINTENDENT Work Phone: Start: 12-25-2023 BLOOD CULTURE 2 Generic External Data Provider Start: 12-25-2023 BLOOD CULTURE 1 Generic External Data Provider Start: 12-24-2023 BLOOD CULTURE 2 Generic External Data Provider Start: 12-24-2023 BLOOD CULTURE 1 Generic External Data Provider Start: 03-25-2023 Mammography Jaymie kohler SUBSTATION SUPERINTENDENT Work Phone: Start: 02-25-2022 Colonoscopy Jaymie kohler SUBSTATION SUPERINTENDENT Work Phone: section Bryson Saldaña Ligation of fallopian tube Leslie SAM[facility] Repair of meniscus Bryson HOWELL Total abdominal hysterectomy with bilateral salpingo-oophorectomy Bryson RACHELPiper Plan of Treatment Date Care Activity Detail Author Start: 02-26-2032 Screening for malign ant neoplasm of colon [facility] Start: 02-09-2025 Screening for malign ant neoplasm of breast Mammogram [facility] Start: 12-26-2024 Screening for malign ant neoplasm of colon FIT-DNA [facility] Start: 10-09-2024 Influenza vaccination Influenz a Vaccine (Season Ended) [facility] Start: 07-31-2024 End: 07-31-2024 Patient encounter procedure 07/31/2024 10:30 AM EDT Office Visit [facility] [address] [place] [phone] Jaymie Phoenix, NILE [address] [place] [phone] [facility] Start: 06-14-2024 Influenza vaccination Influenza Vacc ine (#1) [facility] Comment on above: Postponed from 10/09 (Patient Refused) Start: 06-05-2024 End: 06-05-2024 Patient encounter procedure 06/05/2024 3:40 PM EDT Office Visit [facility] [address] [place] [phone] Sherice Tristan NP [address] [place] [phone] [facility] Start: 06-02-2024 Medicare Annual Well ness (AWV) Medicare Annual Wellness (AWV) [facility] Start: 05-10-2024 End: 05-10-2024 Patient encounter procedure 05/10/2024 2:00 PM EDT Office Visit [facility] [address] [place] [phone] Jaymie Phoenix, SUBSTATION SUPERINTENDENT [address] [place] [phone] [facility] Start: 04-06-2024 Influenza vaccination Influenza Vacc ine (#1) [facility] Comment on above: Postponed from 10/09 (Patient Refused) Start: 03-25-2024 Screening for malign ant neoplasm of breast Mammogram [facility] Start: 03-14-2024 End: 03-14-2024 Patient encounter procedure 03/14/2024 3:00 PM EST Office Visit [facility] [address] [place] [phone] Saumya Back DO [address] [place] [address] Tremor [facility] Comment on above: Tremor Start: 01-26-2024 End: 01-26-2024 Patient encounter procedure 01/26/2024 10:30 AM EST Office Visit [facility] [address] [place] [phone] Jaymie Phoenix, NILE [address] [place] [phone] [facility] Start: 01-03-2024 End: 01-02-2025 25-hydroxyvitamin D3 [Mass/volume] in Serum or Plasma Vitamin D 25 hydroxy Lab Routine Vitamin D deficiency Expected: 01/03/2024 (Approximate), Expires: 01/02/2025 [facility] Comment on above: Expected: 01/03/2024 (Approximate), Expires: 01/02/2025 Start: 01-03-2024 End: 01-02-2025 Basic metabolic 1998 panel - Serum or Plasma Basic metabolic panel Lab Routine Primary hypertension (CMS/HCC) Expected: 01/03/2024 (Approximate), Expires: 01/02/2025 [facility] Comment on above: Expected: 01/03/2024 (Approximate), Expires: 01/02/2025 Start: 01-03-2024 End: 01-02-2025 Cobalamin (Vitamin B12) [Mass/volume] in Serum or Plasma Vitamin B12 Lab Routine Vitamin B12 deficiency Expected: 01/03/2024 (Approximate), Expires: 01/02/2025 [facility] Comment on above: Expected: 01/03/2024 (Approximate), Expires: 01/02/2025 Start: 01-03-2024 End: 01-02-2025 Lipid 1996 panel - Serum or Plasma Lipid panel Lab Routine Mixed hyperlipidemia (CMS/HCC) Expected: 01/03/2024 (Approximate), Expires: 01/02/2025 [facility] Comment on above: Expected: 01/03/2024 (Approximate), Expires: 01/02/2025 Start: 01-03-2024 End: 01-02-2025 Microalbumin/Creatinine panel in random Urine Microalbumin / creatinine, urine ratio Lab Routine Primary hypertension ([facility]/HCC) Tobacco dependence Expected: 01/03/2024 (Approximate), Expires: 01/02/2025 [facility] Work Phone: Comment on above: Expected: 01/03/2024 (Approximate), Expires: 01/02/2025 Start: 01-03-2024 End: 01-02-2025 Urinalysis complete panel - Urine Urinalysis with reflex microscopic (clean catch) Lab Routine Primary hypertension (CMS/HCC) Tobacco dependence Expected: 01/03/2024 (Approximate), Expires: 01/02/2025 [facility] Comment on above: Expected: 01/03/2024 (Approximate), Expires: 01/02/2025 Start: 01-03-2024 End: 01-03-2024 Patient encounter procedure [facility] Comment on above: WINSOME (obstructive sle ep apnea) (Primary Dx); COPD mixed type ([facility]); Primary hypertension ([facility]/HCC); Fibromyalgia; BMI 40.0-44.9, adult ([facility]); Tobacco dependence; Mixed hyperlipidemia ([facility]/HCC); Vitamin D deficiency; Vitamin B12 deficiency Start: 10-10-2023 Influenza vaccination Influenza Vacc ine (#1) [facility] Start: 08-08-2023 Influenza vaccination Influenza Vacc ine (#1) [facility] Comment on above: Postponed from 10/09 (Patient Refused) Start: 04-06-2023 End: 04-06-2023 Patient encounter procedure 04/06/2023 1:40 PM EST Office Visit [facility] [address] [place] [phone] Jaymie Phoenix, SUBSTATION SUPERINTENDENT [address] [place] [phone] [facility] Start: 03-25-2023 End: 03-25-2024 CBC W Auto Differential panel - Blood CBC and differential Lab Routine Edema of right lower extremity Expected: 03/25/2023 (Approximate), Expires: 03/25/2024 [facility] Comment on above: Expected: 03/25/2023 (Approximate), Expires: 03/25/2024 Start: 03-25-2023 End: 03-25-2024 Comprehensive metabolic 2000 panel - Serum or Plasma Comprehensive metabolic panel Lab Routine Edema of right lower extremity Expected: 03/25/2023 (Approximate), Expires: 03/25/2024 [facility] Comment on above: Expected: 03/25/2023 (Approximate), Expires: 03/25/2024 Start: 03-25-2023 End: 03-25-2024 Fibrin D-dimer FEU [Mass/volume] in Platelet poor plasma D-dimer, quantitative Lab Routine Edema of right lower extremity Expected: 03/25/2023 (Approximate), Expires: 03/25/2024 [facility] Comment on above: Expected: 03/25/2023 (Approximate), Expires: 03/25/2024 Start: 03-25-2023 End: 03-25-2024 US.doppler Lower extremity vein - right Vascular US lower extremity venous duplex right Imaging STAT Edema of right lower extremity Expected: 03/25/2023, Expires: 03/25/2024 [facility] Work Phone: Comment on above: Expected: 03/25/2023 , Expires: 03/25/2024 Start: 03-25-2023 End: 03-25-2024 XR Chest 2 Views XR chest 2 views Imaging Routine Edema of right lower extremity Shortness of breath Expected: 03/25/2023, Expires: 03/25/2024 [facility] Comment on above: Expected: 03/25/2023 , Expires: 03/25/2024 Start: 08-16-1993 Screening for malign ant neoplasm of cervix HPV/Cotest [facility] Start: 08-16-1984 Screening for malign ant neoplasm of cervix Pap Smear [facility] Start: 1965 Medicare Annual Well ness (AWV) Medicare Annual Wellness (AWV) [facility] Start: 1965 Screening for malign ant neoplasm of colon [facility] BLOOD CULTURE 1 BLOOD CULTURE 1 Lab Routine 12/24/2023 1:45 PM EST [facility] BLOOD CULTURE 1 BLOOD CULTURE 1 Lab Routine 12/25/2023 9:09 PM EST [facility] BLOOD CULTURE 2 BLOOD CULTURE 2 Lab Routine 12/24/2023 1:51 PM EST [facility] BLOOD CULTURE 2 BLOOD CULTURE 2 Lab Routine 12/25/2023 9:20 PM EST [facility] Immunizations Immunization Date Immunization Notes Care Provider [facility] 08-29-2023 tetanus toxoid, reduced diphtheria toxoid, and acellular pertussis vaccine, adsorbed Jaymie Phoenix SUBSTATION SUPERINTENDENT Work Phone: [facility] 06-14-2020 Kelly SARS-CoV-2 Jaymie ramirez SUBSTATION SUPERINTENDENT Work Phone: [facility] NEGATED: Highlighted row has not occurred!02-03-2022 influenza virus vaccine, unspecified formulation Bryson [facility] Payers Date Payer Category Payer Self-pay 2021 Medicaid [employer] MEDICARE A DVANTAGE [id number] 2021 Medicare AETNA MEDICARE A DVANTAGE AETNA MEDICARE REPLACEMENT [id number] 2021-Present [address] [place] [id number] [id number] 1963 Unknown [id number] 2.16.840.1.983713.3.579.2. 727 1963 Unknown [id number] 2.16.840.1.699056.3.579.2. 72 1963 Unknown [id number] 2.16.840.1.159771.3.579.2. 727 1963 Unknown [id number] 2.16.840.1.238777.3.579.2. 72 1963 Unknown [id number] 2.16.840.1.434117.3.579.2. 72 1963 Unknown [id number] 2.16.840.1.278501.3.579.2. 59 1963 Unknown [id number] 2.16.840.1.720800.3.579.2. 59 1963 Unknown [id number] 2.16.840.1.704987.3.579.2 59 1963 Unknown [id number] 2.16.840.1.440216.3.579.2. 59 1963 Unknown [id number] 2.16.840.1.242142.3.579.2. 59 1963 Unknown [id number] 2.16.840.1.727831.3.579.2. 59 1963 Unknown [id number] 2.16.840.1.836997.3.579.2. 59 1963 Unknown [id number] 2.16.840.1.940995.3.579.2. 593 1963 Unknown [id number] 2.16.840.1.319061.3.579.2. 59 1963 Unknown [id number] 2.16.840.1.466782.3.579.2. 59 1963 Unknown [id number] 2.16840.1.328752.3.579.2. 59 1963 Unknown [id number] 2.16.840.1.201577.3.579.2. 59 1963 Unknown [id number] 2.16840.1.030489.3.579.2. 59 1963 Unknown [id number] 2.16840.1.737281.3.579.2. 59 1963 Unknown [id number] 2.840.1.138777.3.579.2 59 1963 Unknown [id number] 2.840.1.173655.3.579.2. 59 1963 Unknown [id number] 2.840.1.244971.3.579.2 59 1963 Unknown [id number] 2.840.1.646699.3.579.2 59 1963 Unknown [id number] 2.16840.1.402922.3.579.2 59 1963 Unknown [id number] 2.840.1.974385.3.579.2. 59 1963 Unknown [id number] 2.16840.1.279646.3.579.2. 59 1963 Unknown [id number] 2.840.1.501643.3.579.2. 59 1963 Unknown [id number] 2.16840.1.748703.3.579.2. 1259 1963 Unknown [id number] 2.16840.1.706517.3.579.2. 1259 1963 Unknown [id number] 2.16840.1.730177.3.579.2. 1259 1963 Unknown [id number] 2.16.840.1.157947.3.579.2. 9 1963 Unknown [id number] 2.16.840.1.847584.3.579.2. 9 1963 Unknown [id number] 2.16.840.1.261476.3.579.2. 9 1963 Unknown [id number] 2.16.840.1.161538.3.579.2. 1259 1959 Private Health Insurance [id number] Unknown [id number] 2.16.840.1.532671.3.579.2. 531 Social History Date Type Detail Facility Start: 02-03-2022 Tobacco smoking status Heavy t obacco smoker (finding) [facility] Tobacco smoking status Never [facility] Start: 03-16-2023 End: 05-13-2023 Sex Assigned At Female [facility] Start: 01-26-2023 Tobacco smoking stat [facility] Smokes tobacco daily [facility] History of tobacco use Cigarette Smoker [facility] Start: 01-26-2023 End: 05-13-2023 Cigarettes smoked current (pack per day) - Reported 1 [facility] Start: 01-26-2023 Tobacco use and exposure Smokeless tobacco non-user [facility] Start: 03-16-2023 End: 02-10-2024 Alcohol intake Ex-drinker (finding) [facility] Start: [...] Freeman dallas Escobar Clinical Notes 12-09-2021 to 06-14-2024 Telephone Encounter - Jaymie Phoenix NP - 06/14/2024 8:55 PM EDTTelephone Encounter - Jaymie Phoenix NP - 06/14/2024 8:55 PM EDTTelephone Encounter - Kym Adam - 06/14/2024 4:06 PM EDT Note Date & Type Note Facility 06-14-2024 Telephone encounter Note She is also due for her AWV, please call to schedule LA [facility] 06-14-2024 Miscellaneous Notes She is also due for her AWV, please call to schedule [place] documented in this encounter [facility] 06-14-2024 Telephone encounter Note 90 day supply [facility] 06-14-2024 Miscellaneous Notes 90 day supply documented in this encounter [facility] 03-14-2024 History of Presen t illness Narrative Images from the original note were not included. Chief Complaint: Tremor Subjective Franky Srinivasan, 58 y.o., female Patient presents today for a neurologic consult at the request of Jaymie Phoenix CNP for tremor. Patient is accompanied by her , Saumya. Patient reports tremor in her head and bilateral hands. She has had this for about 5 years but has progressively gotten worse. Her states the tremor in her head is constant but the hands are intermittent. The right hand is worse. Patient also reports some imbalance. She had a fall last week and has had multiple over the last few months. Her states she is typically falling once a month. She admits dizziness and lightheadedness. She denies any blurred vision or headaches. She reports sleeping well at night about 8 hours. She reports very vivid dreams. Denies any hallucinations. She denies any increase in agitation but he admits that agitation and anxiety are common. Patient has not been on any medication for the tremor. Review of Systems Constitutional: Negative for appetite change, fatigue and fever. Respiratory: Negative for cough, shortness of breath and wheezing. Cardiovascular: Negative for chest pain, palpitations and leg swelling. Gastrointestinal: Negative for abdominal pain, constipation, diarrhea and nausea. Musculoskeletal: Negative for arthralgias, gait problem and myalgias. Neurological: Positive for tremors. Negative for dizziness, numbness and headaches. Past Medical History: Diagnosis Date Anxiety Bilateral lower extremity edema 01/26/2023 stable Class 3 severe obesity due to excess calories without serious comorbidity with body mass index (BMI) of 40.0 to 44.9 in adult ([facility]) 01/26/2023 COPD mixed type ([facility]) 01/26/2023 DENIES HX OF BLOOD BORNE DISEASES Depression ([facility]) Fibromyalgia Open wound of left foot 01/26/2023 Open wound of second toe 01/26/2023 Other acute sinusitis 01/26/2023 Primary hypertension ([facility]) 01/26/2023 Tobacco dependence 01/26/2023 Past Surgical History: Procedure Laterality Date SECTION, LOW TRANSVERSE x2 HYSTERECTOMY 08/2014 Total Laparoscopic KNEE SURGERY Left 09/02/2021 SCOPE - DR MAURICE TUBAL LIGATION Laparoscopic Family History Adopted: Yes Social History Tobacco Use Smoking status: Every Day Current packs/day: 1.00 Average packs/day: 1 pack/day for 42.0 years (42.0 ttl pk-yrs) Types: Cigarettes Smokeless tobacco: Never Tobacco comments: 11-20 cigarettes/day Substance Use Topics Alcohol use: Not Currently Comment: socially Allergies: Penicillins and Prednisone Vitals: 03/14/24 1453 BP: 128/82 Pulse: 76 SpO2: 94% Body mass index is 40.7 kg/m . weight: 244 lb 9.6 oz Neurologic exam: Mental status: Awake, alert to person, place and time. Recent and remote memory are intact. Language is fluent without aphasia. Attention and concentration are normal. Fund of knowledge is appropriate for level of education. Cranial nerves: CN II: Visual acuity is normal. Visual [facility] full to confrontation. CN III, IV, : pupils equal round and reactive to light. Extraocular movements intact. No ptosis present. CN V: Facial sensation is normal. CN VII: Full and symmetric facial movement. CN VIII: Hearing is normal to finger rub bilaterally: CN IX and X: Palate elevates symmetrically. CN XI: Shoulder shrug is normal bilaterally. CN XII: Tongue is midline without atrophy or fasciculation. Motor: RUE Strength deltoid, , biceps , triceps , wrist extensors , wrist flexor , bending roll operator strength 5/5. LUE Strength deltoid , biceps , triceps , wrist extensors , wrist flexor , bending roll operator strength 5/5. RLE Strength illopsoas, quadriceps, tibialis anterior, and gastrocnemius strength 5/5. LLE Strength illopsoas, quadriceps, tibialis anterior, and gastrocnemius strength 5/5. The patient does have some slowed movement in the upper extremities and subtle tremor with intention of the upper extremities and head. No rigidity noted today. She notes today is a relatively good day for her. Bulk is normal. Sensory: Sensation is intact to light touch throughout Four extremities. Reflexes: RUE biceps reflex 2+ brachioradialis reflex 2+ . LUE biceps reflex 2+ brachioradialis reflex 2+ . RLE knee reflex 1+ . LLE knee reflex 1+ . Forrest's sign negative. Coordination: [id number] testing and rapid alternating movements are normal Gait: Normal Review and summary of old records: Assessment/Plan Diagnoses and all orders for this visit: Drug-induced Parkinson's disease (CMS/HCC) It is my impression that the patient has signs and symptoms consistent with slowness of movement, tremor of the upper extremities and head. The patient states these symptoms have been ongoing for greater than 5 years. Certainly based on this timeframe this would be atypical for idiopathic Parkinson's. With review of her medication she is on quite high doses of Seroquel and certainly a medication induced Parkinson's type picture may be possible here. She states she has been on these high doses for quite some time as well. Plan: I have suggested the patient follow up closely with her psychiatrist, Dr. Gomez, for consideration of reduction or change of Seroquel to see if this makes a change in her movement disorder type symptoms. We did discuss that there is a risk and benefit as certainly changed in such medication may observe mental health and the psychiatry team is best position to consider those changes. Additional history was provided from the patient's who accompany her to the visit today. Pt has been fully educated on their diagnosis, lab results, treatment options, follow up plan, and return instructions documented in this encounter [facility] 02-10-2024 History of Presen t illness Narrative Associated Problem(s): Tremor Will refer to neuro for this Differentials: side effects med, PD? Images from the original note were not included. Franky Srinivasan is a 58 y.o. female presents with chief complaint of No chief complaint on file. HPI: HPI SUBJECTIVE: MEDICATIONS: Current Outpatient Medications Medication Instructions albuterol HFA 90 mcg/act inhaler 2 puffs, Every 6 hours PRN albuterol 2.5 mg, Every 6 hours PRN amitriptyline (ELAVIL) 50 mg, Oral, Nightly atorvastatin (LIPITOR) 20 mg, Oral, Nightly Breztri Aerosphere 160-9-4.8 MCG/ACT aerosol 2 puffs, 2 times daily bumetanide (Bumex) 0.5 MG tablet Take only cholecalciferol (Vitamin D-3) 125 MCG (5000 UT) tablet as directed Orally ibuprofen 800 mg, Every 8 hours PRN ipratropium-albuterol (Duo-Neb) 0.5-2.5 mg/3 mL nebulizer solution 3 mL, Every 6 hours PRN lamoTRIgine (LAMICTAL) 200 mg, Nightly lamoTRIgine (LAMICTAL) 100 mg, Daily meloxicam (MOBIC) 15 mg, Daily montelukast (SINGULAIR) 10 mg, Oral, Nightly omeprazole (PRILOSEC) 40 mg, Oral, Daily prazosin (MINIPRESS) 2 mg, Nightly prazosin (MINIPRESS) 1 mg, Daily pregabalin (LYRICA) 100 mg, Oral, 2 times daily propranolol (INDERAL) 40 mg, Oral, 2 times daily QUEtiapine (SEROQUEL) 100 mg, Daily QUEtiapine (SEROQUEL) 400 mg, Nightly spironolactone (ALDACTONE) 50 mg, Oral, Every morning tiZANidine (ZANAFLEX) 4 mg, Oral, Every 12 hours PRN ALLERGIES: Allergies Allergen Reactions Penicillins Hives, Shortness of breath and Swelling Shortness of breath Prednisone Itching Itchy eyes and shortness of breath REVIEW OF SYMPTOMS: Review of Systems PAST MEDICAL HISTORY Past Medical History: Diagnosis Date Anxiety Bilateral lower extremity edema 01/26/2023 stable Class 3 severe obesity due to excess calories without serious comorbidity with body mass index (BMI) of 40.0 to 44.9 in adult ([facility]) 01/26/2023 COPD mixed type ([facility]) 01/26/2023 DENIES HX OF BLOOD BORNE DISEASES Depression ([facility]) Fibromyalgia Open wound of left foot 01/26/2023 Open wound of second toe 01/26/2023 Other acute sinusitis 01/26/2023 Primary hypertension ([facility]) 01/26/2023 Tobacco dependence 01/26/2023 Past Surgical History: Procedure Laterality Date SECTION, LOW TRANSVERSE x2 HYSTERECTOMY 08/2014 Total Laparoscopic KNEE SURGERY Left 09/02/2021 SCOPE - DR MAURICE TUBAL LIGATION Laparoscopic family history is not on file. She was adopted. OBJECTIVE: Visit Vitals BP 110/80 (BP Location: Left arm, Patient Position: Sitting, BP Cuff Size: Adult long) Pulse 87 Temp 98.1 F (Temporal) Resp 18 Ht 5' 5 Wt 246 lb SpO2 94% BMI 40.94 kg/m Smoking Status Every Day BSA 2.27 m Physical Exam ASSESSMENT AND PLAN: No follow-ups on file. Associated Problem(s): Tobacco dependence The patient has been advised of the risks of continued smoking: stroke, MO, all forms of cancer, lung disease, and . Options for quitting smoking include: cold turkey, hypnosis, acupuncture, nicotine replacement meds (gum, lozenges, and patches), Buproprion, and Varenicline. At this time pt is encouraged to evaluate their goals for wanting to quit smoking, and reach out to provider when ready to start this process Associated Problem(s): Morbid (severe) obesity due to excess calories (CMS/HCC) Discussed with patient their BMI (actual, verses recommended). We have also discussed lifestyle modifications: attempts to perform physical activity as chronic conditions allow, also to monitor dietary intake: increasing protein/fruits/veggies and lowering carb intake (unless contraindicated). Limit sodas, juices, and sugary drinks. Chronic pain related issues does limit ability to exercise on regular basis Associated Problem(s): GERD (gastroesophageal reflux disease) Recommendations: freq small meals, nothing to eat or drink at least 2 hours prior to bed, limit caffeine, alcohol, as well as spicy foods Meds to limit or avoid if possible: NSAIDS Elevate HOB if possible Current med: omeprazole Insurance correspondance about manager long term care use of PPI Pt has been counseled on the risks of manager long term care use, would like to continue Associated Problem(s): COPD with acute exacerbation (CMS/HCC) Was referred to pulmonology Continue with albuterol prn, and breztri as directed Urged to quit smoking Stay UTD on immunizations: flu, covid, pneumonia, and RSV Associated Problem(s): COPD mixed type (CMS/HCC) Current meds: breztri, albuterol HFA and neb prn Was referred to Pulmonology Needs a PFT first Associated Problem(s): WINSOME (obstructive sleep apnea) You have a diagnosis of obstructive sleep apnea. It is recommended that you wear your PAP device any time while in bed sleeping. Not using the PAP device can increase your risk of elevated/uncontrolled high blood pressure, atrial fibrillation, heart attack, stroke, or sudden . Compliant: no documented in this encounter [facility] 01-03-2024 History of Presen t illness Narrative Associated Problem(s): COPD with acute exacerbation (CMS/HCC) Pt reports getting better , feels better than in hospital I.S. 10 times hour every hour awake Recommend quitting smoking Continue nebulizers Refer to pulmonary Pt is on 3l of 02 Had forgotten it Pt has be ranging from 82-92 in her 02 Images from the original note were not included. Franky Srinivasan is a 58 y.o. female presents with chief complaint of No chief complaint on file. HPI: Here for a hospital fu: hospitalization 4 days, wanted to go home COPD exacerbation. Home on O2 3LNC, does not wear oxygen at night. Cough: moist, non productive Dyspnea: minimal at rest, if walking, gets winded , up steps winded. Wears oxgen Inhalers: breztri, and nebulizer Interested in possibly quitting smoking Was having some falls prior to going into hospital. SUBJECTIVE: MEDICATIONS: Current Outpatient Medications Medication Instructions albuterol HFA 90 mcg/act inhaler 2 puffs, Every 6 hours PRN albuterol 2.5 mg, Every 6 hours PRN amitriptyline (ELAVIL) 50 mg, Oral, Nightly atorvastatin (LIPITOR) 20 mg, Oral, Nightly Breztri Aerosphere 160-9-4.8 MCG/ACT aerosol 2 puffs, 2 times daily bumetanide (Bumex) 0.5 MG tablet Take only cholecalciferol (Vitamin D-3) 125 MCG (5000 UT) tablet as directed Orally ibuprofen 800 mg, Every 8 hours PRN ipratropium-albuterol (Duo-Neb) 0.5-2.5 mg/3 mL nebulizer solution 3 mL, Every 6 hours PRN lamoTRIgine (LAMICTAL) 200 mg, Nightly lamoTRIgine (LAMICTAL) 100 mg, Daily meloxicam (MOBIC) 15 mg, Daily montelukast (SINGULAIR) 10 mg, Oral, Nightly omeprazole (PRILOSEC) 40 mg, Oral, Daily prazosin (MINIPRESS) 2 mg, Nightly pregabalin (LYRICA) 100 mg, Oral, 2 times daily propranolol (INDERAL) 40 mg, Oral, 2 times daily QUEtiapine (SEROQUEL) 100 mg, Daily QUEtiapine (SEROQUEL) 400 mg, Nightly spironolactone (ALDACTONE) 50 mg, Oral, Every morning tiZANidine (ZANAFLEX) 4 mg, Oral, Every 12 hours PRN ALLERGIES: Allergies Allergen Reactions Penicillins Hives, Shortness of breath and Swelling Shortness of breath Prednisone Itching Itchy eyes and shortness of breath REVIEW OF SYMPTOMS: Review of Systems Constitutional: Positive for fatigue. Negative for appetite change, chills and fever. HENT: Positive for congestion. Negative for ear pain and sore throat. Eyes: Negative for pain, discharge, redness and visual disturbance. Respiratory: Positive for cough, shortness of breath and wheezing. Cardiovascular: Positive for leg swelling. Negative for chest pain and palpitations. Gastrointestinal: Negative for abdominal pain, blood in stool, constipation, diarrhea, nausea and vomiting. Genitourinary: Negative for difficulty urinating, dysuria and frequency. Musculoskeletal: Negative for arthralgias, back pain, joint swelling and myalgias. Skin: Negative for rash and wound. Neurological: Negative for dizziness, tremors, seizures, syncope and headaches. Psychiatric/Behavioral: Negative for behavioral problems, self-injury and suicidal ideas. The patient is nervous/anxious. Hematological: Does not bruise/bleed easily. Endocrine: Negative for polydipsia, polyphagia and polyuria. Allergic/Immunologic: Negative for environmental allergies and food allergies. PAST MEDICAL HISTORY Past Medical History: Diagnosis Date Anxiety Bilateral lower extremity edema 01/26/2023 stable Class 3 severe obesity due to excess calories without serious comorbidity with body mass index (BMI) of 40.0 to 44.9 in adult ([facility]) 01/26/2023 COPD mixed type ([facility]) 01/26/2023 DENIES HX OF BLOOD BORNE DISEASES Depression ([facility]) Fibromyalgia Open wound of left foot 01/26/2023 Open wound of second toe 01/26/2023 Other acute sinusitis 01/26/2023 Primary hypertension ([facility]) 01/26/2023 Tobacco dependence 01/26/2023 Past Surgical History: Procedure Laterality Date SECTION, LOW TRANSVERSE x2 HYSTERECTOMY 08/2014 Total Laparoscopic KNEE SURGERY Left 09/02/2021 SCOPE - DR MAURICE TUBAL LIGATION Laparoscopic family history is not on file. She was adopted. OBJECTIVE: Visit Vitals BP 106/86 (BP Location: Left arm, Patient Position: Sitting, BP Cuff Size: Adult long) Pulse 89 Temp 98.1 F (Temporal) Resp 19 Ht 5' 5 Wt 244 lb SpO2 91% BMI 40.60 kg/m Smoking Status Every Day BSA 2.26 m Physical Exam Vitals and nursing note reviewed. Constitutional: General: She is in acute distress (resp sl labored). Appearance: Normal appearance. She is obese. She is not ill-appearing. HENT: Head: Normocephalic and atraumatic. Right Ear: Tympanic membrane, ear canal and external ear normal. Left Ear: Tympanic membrane, ear canal and external ear normal. Nose: Rhinorrhea present. No congestion. Mouth/Throat: Mouth: Mucous membranes are moist. Pharynx: No oropharyngeal exudate or posterior oropharyngeal erythema. Eyes: Extraocular Movements: Extraocular movements intact. Conjunctiva/sclera: Conjunctivae normal. Neck: Vascular: No carotid bruit. Cardiovascular: Rate and Rhythm: Normal rate and regular rhythm. Pulses: Normal pulses. Heart sounds: Normal heart sounds. Pulmonary: Effort: Respiratory distress present. Breath sounds: Wheezing present. Comments: Exp wheeze Sl labored breathing Abdominal: General: Bowel sounds are normal. There is no distension. Palpations: Abdomen is soft. There is no mass. Tenderness: There is no abdominal tenderness. Musculoskeletal: General: Normal range of motion. Cervical back: Normal range of motion and neck supple. Right lower leg: Edema present. Left lower leg: Edema present. Skin: General: Skin is warm and dry. Capillary Refill: Capillary refill takes 2 to 3 seconds. Findings: No rash. Neurological: General: No focal deficit present. Mental Status: She is alert and oriented to person, place, and time. Psychiatric: Mood and Affect: Mood normal. Behavior: Behavior normal. Thought Content: Thought content normal. Judgment: Judgment normal. ASSESSMENT AND PLAN: Follow up in about 2 weeks (around 01/17/2024) for Recheck. Problem List Items Addressed This Visit Fibromyalgia Continue with Madiha ELIZABETH reviewed Relevant Medications tiZANidine (Zanaflex) 4 MG tablet Mixed hyperlipidemia (CMS/HCC) On statin therapy, check labs Relevant Medications atorvastatin (Lipitor) 20 MG tablet Other Relevant Orders Lipid panel Tobacco dependence The patient has been advised of the risks of continued smoking: stroke, MO, all forms of cancer, lung disease, and . Options for quitting smoking include: cold turkey, hypnosis, acupuncture, nicotine replacement meds (gum, lozenges, and patches), Buproprion, and Varenicline. At this time pt is encouraged to evaluate their goals for wanting to quit smoking, and reach out to provider when ready to start this process Relevant Orders Microalbumin / creatinine, urine ratio Urinalysis with reflex microscopic (clean catch) Primary hypertension (CMS/HCC) Please check blood pressure daily and record DASH diet Limit caffeine Take medication as directed Contact office if chest pain, pressure, dizziness, shortness of breath, swelling legs Recommend slow position changes Relevant Orders Microalbumin / creatinine, urine ratio Urinalysis with reflex microscopic (clean catch) Basic metabolic panel COPD mixed type (CMS/HCC) Recent hospitalization for exacerbation with hypoxia as well 2 ER visits, second one admitted d/t hypoxia Has seen Naomy in the past for her COPD Relevant Medications montelukast (Singulair) 10 MG tablet Other Relevant Orders Ambulatory referral to Pulmonology Vitamin B12 deficiency Relevant Orders Vitamin B12 Vitamin D deficiency Relevant Orders Vitamin D 25 hydroxy BMI 40.0-44.9, adult (CMS/HCC) WINSOME (obstructive sleep apnea) - Primary Non compliant with use of PAP COPD with acute exacerbation (CMS/HCC) Pt reports getting better , feels better than in hospital I.S. 10 times hour every hour awake Recommend quitting smoking Continue nebulizers Refer to pulmonary Associated Problem(s): Mixed hyperlipidemia (CMS/HCC) On statin therapy, check labs Associated Problem(s): Tobacco dependence The patient has been advised of the risks of continued smoking: stroke, MO, all forms of cancer, lung disease, and . Options for quitting smoking include: cold turkey, hypnosis, acupuncture, nicotine replacement meds (gum, lozenges, and patches), Buproprion, and Varenicline. At this time pt is encouraged to evaluate their goals for wanting to quit smoking, and reach out to provider when ready to start this process Associated Problem(s): Fibromyalgia Continue with Madiha ELIZABETH reviewed Associated Problem(s): Primary hypertension (CMS/HCC) Please check blood pressure daily and record DASH diet Limit caffeine Take medication as directed Contact office if chest pain, pressure, dizziness, shortness of breath, swelling legs Recommend slow position changes Associated Problem(s): COPD mixed type (CMS/HCC) Recent hospitalization for exacerbation with hypoxia as well 2 ER visits, second one admitted d/t hypoxia Has seen Naomy in the past for her COPD Associated Problem(s): WINSOME (obstructive sleep apnea) Non compliant with use of PAP documented in this encounter [facility] 01-03-2024 Instructions Jaymie Phoenix NP - 01/03/2024 10:30 AM EST Referral to science faculty member Consider patches documented in this encounter [facility] 03-25-2023 History of Presen t illness Narrative Associated Problem(s): Edema of right [...] (BMI) of 40.0 to 44.9 in adult ([facility]) 01/26/2023 COPD mixed type ([facility]) 01/26/2023 DENIES HX OF BLOOD BORNE DISEASES Depression (CMS/HCC) Fibromyalgia Open wound of left foot 01/26/2023 [...] chest 2 views documented in this encounter [facility] 03-16-2023 History of Presen t illness Narrative Associated Problem(s): Bilateral lower extremity [...] (BMI) of 40.0 to 44.9 in adult ([facility]) 01/26/2023 COPD mixed type ([facility]) 01/26/2023 DENIES HX OF BLOOD BORNE DISEASES Depression ([facility]) Fibromyalgia Open wound of left foot 01/26/2023 Open wound of second toe 01/26/2023 Other acute sinusitis 01/26/2023 Primary hypertension ([facility]) 01/26/2023 Tobacco dependence 01/26/2023 Past Surgical History: [...] mixed type (CMS/HCC) Still w wheeze, continue breztrmelissa Needs to quit smoking Allergies to steroids Have her add in albuterol inhaler prn BMI 40.0-44.9, adult (CMS/HCC) Other Visit Diagnoses Body mass index [BMI] 40.0-44.9, adult (Z68.41) documented in this encounter [facility] 04-30-2022 Note CONSULTATION CONSULTATION DATE: 04/30/2022 TO: [...] office on an as needed basis. [facility] 02-25-2022 Note OPERATIVE NOTE OPERATION [...] good condition. CC: Patient's family physician [facility] 02-06-2022 Note CONSULTATION CONSULTATION DATE: [...] followed up in the clinic thereafter. [facility] 02-03-2022 Note Chief Complaint consultation [...] days Tobacco (more content not included)... [facility] Comment on above: Result Comment: Elec [...] followed up in the clinic thereafter. [facility] 12-09-2021 Note CONSULTATION CONSULTATION DATE: [...] to proceed. CC: Jaymie Phoenix, MEREDITH [facility] Evaluation + Plan note No data available for this section General Surgery [place] Evaluation note Diagnosis COPD mixed type (CMS/HCC)- [...] aura and without status migrainosus, not intractable ([facility]/HCC) Class 3 severe obesity due to excess calories without serious comorbidity with body mass index (BMI) of 40.0 to 44.9 in adult ([facility]) Tobacco dependence Tobacco use disorder Bilateral lower extremity edema Acute non-recurrent sinusitis of other sinus COPD mixed type (CMS/HCC) Open wound of second toe of left foot, initial encounter Open wound of left foot, initial encounter COPD mixed type (CMS/HCC)- Primary Tobacco dependence Tobacco use disorder BMI 40.0-44.9, adult ([facility]) Body mass index [BMI] 40.0-44.9, adult (Z68.41) Primary hypertension (CMS/HCC) Unspecified essential hypertension Bilateral lower extremity edema Edema of right lower extremity- Primary BMI 40.0-44.9, adult ([facility]) Shortness of breath COPD mixed type ([facility]) Primary hypertension (CMS/[facility]) Unspecified essential hypertension Bilateral lower extremity edema Bilateral lower extremity edema- Primary Primary hypertension ([facility]) Unspecified essential hypertension COPD mixed type (CMS/HCC) Class 3 severe obesity due to excess calories without serious comorbidity with body mass index (BMI) of 40.0 to 44.9 in adult ([facility]) Tobacco dependence Tobacco use disorder Bilateral lower extremity edema- Primary Tobacco dependence Tobacco use disorder BMI 40.0-44.9, adult ([facility]) COPD mixed type ([facility]) WINSOME (obstructive sleep apnea) Obstructive sleep apnea (adult) (pediatric) Encounter for subsequent annual wellness visit (AWV) in Medicare patient- Primary Edema of right lower extremity Anxiety and depression ([facility]) Tobacco dependence Tobacco use disorder BMI 40.0-44.9, adult ([facility]) Fibromyalgia Unspecified myalgia and myositis Primary hypertension (CMS/HCC) Unspecified essential hypertension COPD mixed type ([facility]/HCC) Mixed hyperlipidemia ([facility]/HCC) Mixed hyperlipidemia documented in [facility] encounter [facility]* Diagnosis Primary hypertension ([facility])- Primary Unspecified essential hypertension Mixed hyperlipidemia ([facility]/HCC) Mixed hyperlipidemia Fibromyalgia Unspecified myalgia and myositis Migraine without aura and without status migrainosus, not intractable ([facility]/HCC) Class 3 severe obesity due to excess calories without serious comorbidity with body mass index (BMI) of 40.0 to 44.9 in adult ([facility]) Tobacco dependence Tobacco use disorder Bilateral lower extremity edema Acute non-recurrent sinusitis of other sinus COPD mixed type (CMS/HCC) Open wound of second toe of left foot, initial encounter Open wound of left foot, initial encounter COPD mixed type (CMS/HCC)- Primary Tobacco dependence Tobacco use disorder BMI 40.0-44.9, adult ([facility]) Body mass index [BMI] 40.0-44.9, adult (Z68.41) Primary hypertension (CMS/HCC) Unspecified essential hypertension Bilateral lower extremity edema Edema of right lower extremity- Primary BMI 40.0-44.9, adult ([facility]) Shortness of breath COPD mixed type (CMS/HCC) Primary hypertension (CMS/[facility]) Unspecified essential hypertension Bilateral lower extremity edema Bilateral lower extremity edema- Primary Primary hypertension (CMS/[facility]) Unspecified essential hypertension COPD mixed type (CMS/HCC) Class 3 severe obesity due to excess calories without serious comorbidity with body mass index (BMI) of 40.0 to 44.9 in adult ([facility]) Tobacco dependence Tobacco use disorder Bilateral lower extremity edema- Primary Tobacco dependence Tobacco use disorder BMI 40.0-44.9, adult ([facility]) COPD mixed type ([facility]) WINSOME (obstructive sleep apnea) Obstructive sleep apnea (adult) (pediatric) Encounter for subsequent annual wellness visit (AWV) in Medicare patient- Primary Edema of right lower extremity Anxiety and depression ([facility]) Tobacco dependence Tobacco use disorder BMI 40.0-44.9, adult ([facility]) Fibromyalgia Unspecified myalgia and myositis Primary hypertension ([facility]) Unspecified essential hypertension COPD mixed type ([facility]) Fibromyalgia Unspecified myalgia and myositis documented in this encounter [facility]* Diagnosis Primary hypertension ([facility])- Primary Unspecified essential hypertension Mixed hyperlipidemia ([facility]) Mixed hyperlipidemia Fibromyalgia Unspecified myalgia and myositis Migraine without aura and without status migrainosus, not intractable ([facility]) Class 3 severe obesity due to excess calories without serious comorbidity with body mass index (BMI) of 40.0 to 44.9 in adult ([facility]) Tobacco dependence Tobacco use disorder Bilateral lower extremity edema Acute non-recurrent sinusitis of other sinus COPD mixed type ([facility]/HCC) Open wound of second toe of left foot, initial encounter Open wound of left foot, initial encounter COPD mixed type (CMS/HCC)- Primary Tobacco dependence Tobacco use disorder BMI 40.0-44.9, adult ([facility]) Body mass index [BMI] 40.0-44.9, adult (Z68.41) Primary hypertension (CMS/[facility]) Unspecified essential hypertension Bilateral lower extremity edema Edema of right lower extremity- Primary BMI 40.0-44.9, adult ([facility]) Shortness of breath COPD mixed type ([facility]) Primary hypertension (CMS/HCC) Unspecified essential hypertension Bilateral lower extremity edema Bilateral lower extremity edema- Primary Primary hypertension (CMS/[facility]) Unspecified essential hypertension COPD mixed type (CMS/[facility]) Class 3 severe obesity due to excess calories without serious comorbidity with body mass index (BMI) of 40.0 to 44.9 in adult ([facility]) Tobacco dependence Tobacco use disorder Bilateral lower extremity edema- Primary Tobacco dependence Tobacco use disorder BMI 40.0-44.9, adult ([facility]) COPD mixed type ([facility]) WINSOME (obstructive sleep apnea) Obstructive sleep apnea (adult) (pediatric) Encounter for subsequent annual wellness visit (AWV) in Medicare patient- Primary Edema of right lower extremity Anxiety and depression ([facility]) Tobacco dependence Tobacco use disorder BMI 40.0-44.9, adult ([facility]) Fibromyalgia Unspecified myalgia and myositis Primary hypertension ([facility]) Unspecified essential hypertension COPD mixed type ([facility]) WINSOME (obstructive sleep apnea)- Primary Obstructive sleep apnea (adult) (pediatric) COPD mixed type ([facility]) Primary hypertension ([facility]) Unspecified essential hypertension Fibromyalgia Unspecified myalgia and myositis BMI 40.0-44.9, adult ([facility]) Tobacco dependence Tobacco use disorder Mixed hyperlipidemia ([facility]) Mixed hyperlipidemia Vitamin D deficiency Vitamin B12 deficiency Other B-complex deficiencies COPD with acute exacerbation ([facility]) documented in [facility] encounter [facility]* Diagnosis Fibromyalgia Unspecified myalgia and myositis Gastro-esophageal reflux disease without esophagitis documented in this encounter [facility]* Diagnosis Primary hypertension ([facility])- Primary Unspecified essential hypertension Mixed hyperlipidemia ([facility]) Mixed hyperlipidemia Fibromyalgia Unspecified myalgia and myositis Migraine without aura and without status migrainosus, not intractable ([facility]) Class 3 severe obesity due to excess [...] dependence Tobacco use disorder BMI 40.0-44.9, adult (CMS/[facility]) Body mass index [BMI] 40.0-44.9, adult (Z68.41) Primary hypertension (CMS/HCC) Unspecified essential hypertension Bilateral lower extremity edema Edema of right lower extremity- Primary BMI 40.0-44.9, adult (CMS/[facility]) Shortness of breath COPD mixed type (CMS/HCC) [...] dependence Tobacco use disorder BMI 40.0-44.9, adult ([facility]) COPD mixed type (CMS/HCC) WINSOME (obstructive sleep apnea) Obstructive sleep apnea (adult) (pediatric) Encounter for subsequent annual wellness visit (AWV) in Medicare patient- Primary Edema of right lower extremity Anxiety and depression (CMS/[facility]) Tobacco dependence Tobacco use disorder BMI 40.0-44.9, adult ([facility]) Fibromyalgia Unspecified myalgia and myositis Primary hypertension (CMS/HCC) Unspecified essential hypertension COPD mixed type (CMS/HCC) WINSOME (obstructive sleep apnea)- Primary Obstructive sleep apnea (adult) (pediatric) COPD mixed type (CMS/HCC) Primary hypertension (CMS/HCC) Unspecified essential hypertension Fibromyalgia Unspecified myalgia and myositis BMI 40.0-44.9, adult ([facility]) Tobacco dependence Tobacco use disorder Mixed hyperlipidemia (CMS/HCC) Mixed hyperlipidemia Vitamin D deficiency Vitamin B12 deficiency Other B-complex deficiencies COPD with acute exacerbation (CMS/[facility]) Fibromyalgia Unspecified myalgia and myositis documented in this encounter [facility]* Diagnosis Primary hypertension (CMS/HCC)- Primary Unspecified essential hypertension Mixed hyperlipidemia (CMS/HCC) Mixed hyperlipidemia Fibromyalgia Unspecified myalgia and myositis Migraine without aura and without status migrainosus, not intractable (CMS/[facility]) Class 3 severe obesity due to excess calories without serious comorbidity with body mass index (BMI) of 40.0 to 44.9 in adult (CMS/[facility]) Tobacco dependence Tobacco use disorder Bilateral lower extremity edema Acute non-recurrent sinusitis of other sinus COPD mixed type (CMS/[facility]) Open wound of second toe of left foot, initial encounter Open wound of left foot, initial encounter COPD mixed type (CMS/HCC)- Primary Tobacco dependence Tobacco use disorder BMI 40.0-44.9, adult (CMS/[facility]) Body mass index [BMI] 40.0-44.9, adult (Z68.41) Primary hypertension (CMS/[facility]) Unspecified essential hypertension Bilateral lower extremity edema Edema of right lower extremity- Primary BMI 40.0-44.9, adult ([facility]) Shortness of breath COPD mixed type (CMS/[facility]) Primary hypertension (CMS/HCC) Unspecified essential hypertension Bilateral lower extremity edema Bilateral lower extremity edema- Primary Primary hypertension (CMS/HCC) Unspecified essential hypertension COPD mixed type (CMS/[facility]) Class 3 severe obesity due to excess calories without serious comorbidity with body mass index (BMI) of 40.0 to 44.9 in adult ([facility]) Tobacco dependence Tobacco use disorder Bilateral lower extremity edema- Primary Tobacco dependence Tobacco use disorder BMI 40.0-44.9, adult ([facility]) COPD mixed type (CMS/[facility]) WINSOME (obstructive sleep apnea) Obstructive sleep apnea (adult) (pediatric) Encounter for subsequent annual wellness visit (AWV) in Medicare patient- Primary Edema of right lower extremity Anxiety and depression ([facility]) Tobacco dependence Tobacco use disorder BMI 40.0-44.9, adult ([facility]) Fibromyalgia Unspecified myalgia and myositis Primary hypertension (CMS/HCC) Unspecified essential hypertension COPD mixed type (CMS/HCC) WINSOME (obstructive sleep apnea)- Primary Obstructive sleep apnea (adult) (pediatric) COPD mixed type (CMS/HCC) Primary hypertension (CMS/HCC) Unspecified essential hypertension Fibromyalgia Unspecified myalgia and myositis BMI 40.0-44.9, adult ([facility]) Tobacco dependence Tobacco use disorder Mixed hyperlipidemia (CMS/[facility]) Mixed hyperlipidemia Vitamin D deficiency Vitamin B12 deficiency Other B-complex deficiencies COPD with acute exacerbation ([facility]) COPD with acute exacerbation ([facility])- Primary Morbid (severe) obesity due to excess calories ([facility]) Body mass index (BMI) 40.0-44.9, adult ([facility]) WINSOME (obstructive sleep apnea) Obstructive sleep apnea (adult) (pediatric) COPD mixed type ([facility]) Gastroesophageal reflux disease, unspecified whether esophagitis present Tobacco dependence Tobacco use disorder Gastro-esophageal reflux disease without esophagitis Tremor Abnormal involuntary movements documented in this encounter [facility]* Diagnosis Primary hypertension ([facility])- Primary Unspecified essential hypertension Mixed hyperlipidemia ([facility]) Mixed hyperlipidemia Fibromyalgia Unspecified myalgia and myositis Migraine without aura and without status migrainosus, not intractable ([facility]) Class 3 severe obesity due to excess calories without serious comorbidity with body mass index (BMI) of 40.0 to 44.9 in adult ([facility]) Tobacco dependence Tobacco use disorder Bilateral lower extremity edema Acute non-recurrent sinusitis of other sinus COPD mixed type ([facility]) Open wound of second toe of left foot, initial encounter Open wound of left foot, initial encounter COPD mixed type ([facility])- Primary Tobacco dependence Tobacco use disorder BMI 40.0-44.9, adult ([facility]) Body mass index [BMI] 40.0-44.9, adult (Z68.41) Primary hypertension ([facility]) Unspecified essential hypertension Bilateral lower extremity edema Edema of right lower extremity- Primary BMI 40.0-44.9, adult ([facility]) Shortness of breath COPD mixed type ([facility]) Primary hypertension ([facility]) Unspecified essential hypertension Bilateral lower extremity edema Bilateral lower extremity edema- Primary Primary hypertension ([facility]) Unspecified essential hypertension COPD mixed type ([facility]) Class 3 severe obesity due to excess calories without serious comorbidity with body mass index (BMI) of 40.0 to 44.9 in adult ([facility]) Tobacco dependence Tobacco use disorder Bilateral lower extremity edema- Primary Tobacco dependence Tobacco use disorder BMI 40.0-44.9, adult ([facility]) COPD mixed type ([facility]) WINSOME (obstructive sleep apnea) Obstructive sleep apnea (adult) (pediatric) Encounter for subsequent annual wellness visit (AWV) in Medicare patient- Primary Edema of right lower extremity Anxiety and depression ([facility]) Tobacco dependence Tobacco use disorder BMI 40.0-44.9, adult ([facility]) Fibromyalgia Unspecified myalgia and myositis Primary hypertension ([facility]) Unspecified essential hypertension COPD mixed type ([facility]) WINSOME (obstructive sleep apnea)- Primary Obstructive sleep apnea (adult) (pediatric) COPD mixed type ([facility]/HCC) Primary hypertension ([facility]) Unspecified essential hypertension Fibromyalgia Unspecified myalgia and myositis BMI 40.0-44.9, adult ([facility]) Tobacco dependence Tobacco use disorder Mixed hyperlipidemia ([facility]) Mixed hyperlipidemia Vitamin D deficiency Vitamin B12 deficiency Other B-complex deficiencies COPD with acute exacerbation ([facility]) COPD with acute exacerbation ([facility])- Primary Morbid (severe) obesity due to excess calories ([facility]) Body mass index (BMI) 40.0-44.9, adult ([facility]) WINSOME (obstructive sleep apnea) Obstructive sleep apnea (adult) (pediatric) COPD mixed type ([facility]) Gastroesophageal reflux disease, unspecified whether esophagitis present Tobacco dependence Tobacco use disorder Gastro-esophageal reflux disease without esophagitis Tremor Abnormal involuntary movements 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 Parkinsonism Tremor Abnormal involuntary movements documented in this encounter [facility]* Diagnosis Primary hypertension ([facility])- Primary Unspecified essential hypertension Mixed hyperlipidemia ([facility]) Mixed hyperlipidemia Fibromyalgia Unspecified myalgia and myositis Migraine without aura and without status migrainosus, not intractable ([facility]) Class 3 severe obesity due to excess calories without serious comorbidity with body mass index (BMI) of 40.0 to 44.9 in adult ([facility]) Tobacco dependence Tobacco use disorder Bilateral lower extremity edema Acute non-recurrent sinusitis of other sinus COPD mixed type ([facility]) Open wound of second toe of left foot, initial encounter Open wound of left foot, initial encounter COPD mixed type ([facility]/HCC)- Primary Tobacco dependence Tobacco use disorder BMI 40.0-44.9, adult ([facility]) Body mass index [BMI] 40.0-44.9, adult (Z68.41) Primary hypertension ([facility]) Unspecified essential hypertension Bilateral lower extremity edema Edema of right lower extremity- Primary BMI 40.0-44.9, adult ([facility]) Shortness of breath COPD mixed type (CMS/HCC) Primary hypertension ([facility]/HCC) Unspecified essential hypertension Bilateral lower extremity edema Bilateral lower extremity edema- Primary Primary hypertension ([facility]) Unspecified essential hypertension COPD mixed type ([facility]/HCC) Class 3 severe obesity due to excess calories without serious comorbidity with body mass index (BMI) of 40.0 to 44.9 in adult ([facility]) Tobacco dependence Tobacco use disorder Bilateral lower extremity edema- Primary Tobacco dependence Tobacco use disorder BMI 40.0-44.9, adult ([facility]) COPD mixed type ([facility]) WINSOME (obstructive sleep apnea) Obstructive sleep apnea (adult) (pediatric) Encounter for subsequent annual wellness visit (AWV) in Medicare patient- Primary Edema of right lower extremity Anxiety and depression ([facility]) Tobacco dependence Tobacco use disorder BMI 40.0-44.9, adult ([facility]) Fibromyalgia Unspecified myalgia and myositis Primary hypertension ([facility]) Unspecified essential hypertension COPD mixed type ([facility]) WINSOME (obstructive sleep apnea)- Primary Obstructive sleep apnea (adult) (pediatric) COPD mixed type ([facility]/HCC) Primary hypertension ([facility]) Unspecified essential hypertension Fibromyalgia Unspecified myalgia and myositis BMI 40.0-44.9, adult ([facility]) Tobacco dependence Tobacco use disorder Mixed hyperlipidemia ([facility]) Mixed hyperlipidemia Vitamin D deficiency Vitamin B12 deficiency Other B-complex deficiencies COPD with acute exacerbation ([facility]) COPD with acute exacerbation ([facility])- Primary Morbid (severe) obesity due to excess calories ([facility]) Body mass index (BMI) 40.0-44.9, adult ([facility]) WINSOME (obstructive sleep apnea) Obstructive sleep apnea (adult) (pediatric) COPD mixed type ([facility]) Gastroesophageal reflux disease, unspecified whether esophagitis present Tobacco dependence Tobacco use disorder Gastro-esophageal reflux disease without esophagitis Tremor Abnormal involuntary movements Fibromyalgia Unspecified myalgia and myositis Localized edema Edema Mixed hyperlipidemia ([facility]) Mixed hyperlipidemia documented in this encounter [facility]* Diagnosis Primary hypertension ([facility])- Primary Unspecified essential hypertension Mixed hyperlipidemia ([facility]) Mixed hyperlipidemia Fibromyalgia Unspecified myalgia and myositis Migraine without aura and without status migrainosus, not intractable ([facility]) Class 3 severe obesity due to excess calories without serious comorbidity with body mass index (BMI) of 40.0 to 44.9 in adult ([facility]) Tobacco dependence Tobacco use disorder Bilateral lower extremity edema Acute non-recurrent sinusitis of other sinus COPD mixed type (CMS/HCC) Open wound of second toe of left foot, initial encounter Open wound of left foot, initial encounter COPD mixed type (CMS/HCC)- Primary Tobacco dependence Tobacco use disorder BMI 40.0-44.9, adult ([facility]) Body mass index [BMI] 40.0-44.9, adult (Z68.41) Primary hypertension (CMS/HCC) Unspecified essential hypertension Bilateral lower extremity edema Edema of right lower extremity- Primary BMI 40.0-44.9, adult ([facility]) Shortness of breath COPD mixed type (CMS/[facility]) Primary hypertension (CMS/HCC) Unspecified essential hypertension Bilateral lower extremity edema Bilateral lower extremity edema- Primary Primary hypertension (CMS/[facility]) Unspecified essential hypertension COPD mixed type ([facility]) Class 3 severe obesity due to excess calories without serious comorbidity with body mass index (BMI) of 40.0 to 44.9 in adult ([facility]) Tobacco dependence Tobacco use disorder Bilateral lower extremity edema- Primary Tobacco dependence Tobacco use disorder BMI 40.0-44.9, adult ([facility]) COPD mixed type ([facility]) WINSOME (obstructive sleep apnea) Obstructive sleep apnea (adult) (pediatric) Encounter for subsequent annual wellness visit (AWV) in Medicare patient- Primary Edema of right lower extremity Anxiety and depression ([facility]) Tobacco dependence Tobacco use disorder BMI 40.0-44.9, adult ([facility]) Fibromyalgia Unspecified myalgia and myositis Primary hypertension (CMS/[facility]) Unspecified essential hypertension COPD mixed type ([facility]) WINSOME (obstructive sleep apnea)- Primary Obstructive sleep apnea (adult) (pediatric) COPD mixed type ([facility]/HCC) Primary hypertension (CMS/[facility]) Unspecified essential hypertension Fibromyalgia Unspecified myalgia and myositis BMI 40.0-44.9, adult ([facility]) Tobacco dependence Tobacco use disorder Mixed hyperlipidemia ([facility]) Mixed hyperlipidemia Vitamin D deficiency Vitamin B12 deficiency Other B-complex deficiencies COPD with acute exacerbation (CMS/[facility]) COPD with acute exacerbation ([facility])- Primary Morbid (severe) obesity due to excess calories ([facility]) Body mass index (BMI) 40.0-44.9, adult ([facility]) WINSOME (obstructive sleep apnea) Obstructive sleep apnea (adult) (pediatric) COPD mixed type (CMS/HCC) Gastroesophageal reflux disease, unspecified whether esophagitis present Tobacco dependence Tobacco use disorder Gastro-esophageal reflux disease without esophagitis Tremor Abnormal involuntary movements Environmental and seasonal allergies- Primary COPD mixed type (CMS/HCC) documented in this encounter [facility] HealthcareEvaluation note* Diagnosis Primary hypertension ([facility])- Primary Unspecified essential hypertension Mixed hyperlipidemia (CMS/[facility]) Mixed hyperlipidemia Fibromyalgia Unspecified myalgia and myositis Migraine without aura and without status migrainosus, not intractable (CMS/[facility]) Class 3 severe obesity due to excess calories without serious comorbidity with body mass index (BMI) of 40.0 to 44.9 in adult Tobacco dependence Tobacco use disorder Bilateral lower extremity edema Acute non-recurrent sinusitis of other sinus COPD mixed type (CMS/HCC) Open wound of second toe of left foot, initial encounter Open wound of left foot, initial encounter COPD mixed type (CMS/HCC)- Primary Tobacco dependence Tobacco use disorder BMI 40.0-44.9, adult (CMS/[facility]) Body mass index [BMI] 40.0-44.9, adult (Z68.41) Primary hypertension (CMS/HCC) Unspecified essential hypertension Bilateral lower extremity edema Edema of right lower extremity- Primary BMI 40.0-44.9, adult ([facility]) Shortness of breath COPD mixed type (CMS/HCC) Primary hypertension (CMS/HCC) Unspecified essential hypertension Bilateral lower extremity edema Bilateral lower extremity edema- Primary Primary hypertension ([facility]) Unspecified essential hypertension COPD mixed type ([facility]/HCC) Class 3 severe obesity due to excess calories without serious comorbidity with body mass index (BMI) of 40.0 to 44.9 in adult Tobacco dependence Tobacco use disorder Bilateral lower extremity edema- Primary Tobacco dependence Tobacco use disorder BMI 40.0-44.9, adult ([facility]) COPD mixed type (CMS/HCC) WINSOME (obstructive sleep apnea) Obstructive sleep apnea (adult) (pediatric) Encounter for subsequent annual wellness visit (AWV) in Medicare patient- Primary Edema of right lower extremity Anxiety and depression ([facility]) Tobacco dependence Tobacco use disorder BMI 40.0-44.9, adult ([facility]) Fibromyalgia Unspecified myalgia and myositis Primary hypertension ([facility]) Unspecified essential hypertension COPD mixed type ([facility]) WINSOME (obstructive sleep apnea)- Primary Obstructive sleep apnea (adult) (pediatric) COPD mixed type (CMS/HCC) Primary hypertension ([facility]) Unspecified essential hypertension Fibromyalgia Unspecified myalgia and myositis BMI 40.0-44.9, adult ([facility]) Tobacco dependence Tobacco use disorder Mixed hyperlipidemia (CMS/HCC) Mixed hyperlipidemia Vitamin D deficiency Vitamin B12 deficiency Other B-complex deficiencies COPD with acute exacerbation ([facility]) COPD with acute exacerbation ([facility])- Primary Morbid (severe) obesity due to excess calories ([facility]) Body mass index (BMI) 40.0-44.9, adult ([facility]) WINSOME (obstructive sleep apnea) Obstructive sleep apnea (adult) (pediatric) COPD mixed type ([facility]) Gastroesophageal reflux disease, unspecified whether esophagitis present Tobacco dependence Tobacco use disorder Gastro-esophageal reflux disease without esophagitis Tremor Abnormal involuntary movements Fibromyalgia Unspecified myalgia and myositis documented in this encounter [facility] HealthcareEvaluation note* Diagnosis Primary hypertension ([facility])- Primary Unspecified essential hypertension Mixed hyperlipidemia ([facility]) Mixed hyperlipidemia Fibromyalgia Unspecified myalgia and myositis Migraine without aura and without status migrainosus, not intractable ([facility]) Class 3 severe obesity due to excess calories without serious comorbidity with body mass index (BMI) of 40.0 to 44.9 in adult Tobacco dependence Tobacco use disorder Bilateral lower extremity edema Acute non-recurrent sinusitis of other sinus COPD mixed type ([facility]) Open wound of second toe of left foot, initial encounter Open wound of left foot, initial encounter COPD mixed type ([facility]/HCC)- Primary Tobacco dependence Tobacco use disorder BMI 40.0-44.9, adult ([facility]) Body mass index [BMI] 40.0-44.9, adult (Z68.41) Primary hypertension ([facility]) Unspecified essential hypertension Bilateral lower extremity edema Edema of right lower extremity- Primary BMI 40.0-44.9, adult ([facility]) Shortness of breath COPD mixed type ([facility]/HCC) Primary hypertension ([facility]) Unspecified essential hypertension Bilateral lower extremity edema Bilateral lower extremity edema- Primary Primary hypertension ([facility]) Unspecified essential hypertension COPD mixed type ([facility]) Class 3 severe obesity due to excess calories without serious comorbidity with body mass index (BMI) of 40.0 to 44.9 in adult Tobacco dependence Tobacco use disorder Bilateral lower extremity edema- Primary Tobacco dependence Tobacco use disorder BMI 40.0-44.9, adult ([facility]/HCC) COPD mixed type ([facility]/HCC) WINSOME (obstructive sleep apnea) Obstructive sleep apnea (adult) (pediatric) Encounter for subsequent annual wellness visit (AWV) in Medicare patient- Primary Edema of right lower extremity Anxiety and depression ([facility]) Tobacco dependence Tobacco use disorder BMI 40.0-44.9, adult ([facility]) Fibromyalgia Unspecified myalgia and myositis Primary hypertension (CMS/[facility]) Unspecified essential hypertension COPD mixed type (CMS/HCC) WINSOME (obstructive sleep apnea)- Primary Obstructive sleep apnea (adult) (pediatric) COPD mixed type (CMS/HCC) Primary hypertension (CMS/[facility]) Unspecified essential hypertension Fibromyalgia Unspecified myalgia and myositis BMI 40.0-44.9, adult ([facility]) Tobacco dependence Tobacco use disorder Mixed hyperlipidemia ([facility]) Mixed hyperlipidemia Vitamin D deficiency Vitamin B12 deficiency Other B-complex deficiencies COPD with acute exacerbation ([facility]) COPD with acute exacerbation ([facility])- Primary Morbid (severe) obesity due to excess calories ([facility]) Body mass index (BMI) 40.0-44.9, adult ([facility]) WINSOME (obstructive sleep apnea) Obstructive sleep apnea (adult) (pediatric) COPD mixed type ([facility]) Gastroesophageal reflux disease, unspecified whether esophagitis present Tobacco dependence Tobacco use disorder Gastro-esophageal reflux disease without esophagitis Tremor Abnormal involuntary movements Mixed hyperlipidemia ([facility]) Mixed hyperlipidemia documented in this encounter [facility] HealthcareEvaluation note* Diagnosis Primary hypertension ([facility])- Primary Unspecified essential hypertension Mixed hyperlipidemia ([facility]) Mixed hyperlipidemia Fibromyalgia Unspecified myalgia and myositis Migraine without aura and without status migrainosus, not intractable ([facility]) Class 3 severe obesity due to excess calories without serious comorbidity with body mass index (BMI) of 40.0 to 44.9 in adult Tobacco dependence Tobacco use disorder Bilateral lower extremity edema Acute non-recurrent sinusitis of other sinus COPD mixed type ([facility]) Open wound of second toe of left foot, initial encounter Open wound of left foot, initial encounter COPD mixed type ([facility]/HCC)- Primary Tobacco dependence Tobacco use disorder BMI [...] (BMI) of 40.0 to 44.9 in adult Tobacco dependence Tobacco use disorder Bilateral lower extremity edema- Primary Tobacco dependence Tobacco use disorder BMI 40.0-44.9, adult (CMS/HCC) COPD mixed type (CMS/HCC) WINSOME (obstructive sleep apnea) Obstructive sleep apnea (adult) (pediatric) Encounter for subsequent annual wellness visit (AWV) in Medicare patient- Primary Edema of right lower extremity Anxiety and depression (CMS/HCC) Tobacco dependence Tobacco use disorder BMI 40.0-44.9, adult (CMS/HCC) Fibromyalgia Unspecified myalgia and myositis Primary hypertension (CMS/HCC) Unspecified essential hypertension COPD mixed type (CMS/HCC) WINSOME (obstructive sleep apnea)- Primary Obstructive sleep apnea (adult) (pediatric) COPD mixed type (CMS/HCC) Primary hypertension (CMS/HCC) Unspecified essential hypertension Fibromyalgia Unspecified myalgia and myositis BMI 40.0-44.9, adult ([facility]/HCC) Tobacco dependence Tobacco use disorder Mixed hyperlipidemia (CMS/HCC) Mixed hyperlipidemia Vitamin D deficiency Vitamin B12 deficiency Other B-complex deficiencies COPD with acute exacerbation (CMS/HCC) COPD with acute exacerbation (CMS/HCC)- Primary Morbid (severe) obesity due to excess calories (CMS/HCC) Body mass index (BMI) 40.0-44.9, adult (CMS/HCC) WINSOME (obstructive sleep apnea) Obstructive sleep apnea (adult) (pediatric) COPD mixed type (CMS/HCC) Gastroesophageal reflux disease, unspecified whether esophagitis present Tobacco dependence Tobacco use disorder Gastro-esophageal reflux disease without esophagitis Tremor Abnormal involuntary movements Tobacco dependence- Primary Tobacco use disorder documented in this encounter [facility] No data available for this section General Surgery [place] Progress note No data available for this section General Surgery [place] Reason for visit Narrative* Consultation (Routine) - Closed Specialty Diagnoses / Procedures Referred By Jose williamson Referred To Contact Neurology Diagnoses Tremor Procedures NM OFFICE/OUTPATIENT NEW HIGH MDM 60 MINUTES Jaymie Phoenix NP [address] [place] [address] Phone: tel: fax: Saumya Back DO [address] [place] [address] Phone: tel: fax: Referral ID Status Reason Start Date Expiration Date V isits Requested Visits Authorized [id number] Closed Specialty Services Required 02/10/2024 08/08/2024 1 1 [facility] Summary Purpose Family History No Family History [...] duplex right Jaymie Phoenix NP [address] [place] [address] Referral ID Status Reason Start Date Expiration Date V isits Requested Visits Authorized [id number] Authorized 03/25/2023 09/21/2023 1 1 Additional Source Comments INFORMATION SOURCE (unrecogn ized section and content) DATE CREATED AUTHOR 12/26/2021 [facility] Me dical Specialist DATE CREATED AUTHOR AUTHOR'S ORGANIZ ATION 03/25/2022 Meredith Richard [facility] DATE CREATED AUTHOR AUTHOR'S ORGANIZ ATION 07/17/2022 [facility] DATE CREATED AUTHOR AUTHOR'S ORGANIZ ATION 03/16/2024 [facility] dical Specialists EPIC DATE CREATED AUTHOR AUTHOR'S ORGANIZ ATION 06/28/2024 [facility] Patient Care team informatio n (unrecognized section and content) Targeteer Relationship Specialty Start Date End Date Jaymie Phoenix NP [address] [place] [phone] Nurse Practitioner Family Medicine 01/26/23 Targeteer Relationship Specialty Start Date End Date Shaikh Marquez MD [address] [place] [phone] PCP - General Internal Medicine 03/25/23 Jaymie Phoenix NP [address] [place] [phone] Nurse Practitioner Family Medicine 01/26/23 Targeteer Relationship Specialty Start Date End Date Shaikh Marquez MD [address] [place] [phone] PCP - General Internal Medicine 03/25/23 Jaymie Phoenix NP [address] [place] [phone] Nurse Practitioner Family Medicine 01/26/23 Targeteer Relationship Specialty Start Date End Date Rohan Rodríguez MD [address] [place] [phone] PCP - General Family Medicine 05/13/23 Jaymie Phoenix NP [address] [place] [phone] Nurse Practitioner Family Medicine 01/26/23 Jaymie Phoenix NP [address] [place] [phone] Nurse Practitioner Family Medicine 05/13/23 Targeteer Relationship Specialty Start Date End Date Rohan Rodrígeuz MD [address] [place] [phone] PCP - General Family Medicine 05/13/23 Jaymie Phoenix NP [address] [place] [phone] Nurse Practitioner Family Medicine 01/26/23 Jaymie Phoenix NP [address] [place] [phone] Nurse Practitioner Family Medicine 05/13/23 Targeteer Relationship Specialty Start Date End Date Rohan Rodríguez MD [address] [place] [phone] PCP - General Family Medicine 05/13/23 Jaymie Phoenix NP [address] [place] [phone] Nurse Practitioner Family Medicine 01/26/23 Jaymie Phoenix NP [address] [place] [phone] Nurse Practitioner Family Medicine 05/13/23 Targeteer Relationship Specialty Start Date End Date Rohan Rodríguez MD [address] [place] [phone] PCP - General Family Medicine 05/13/23 Jaymie Phoenix NP [address] [place] [phone] Nurse Practitioner Family Medicine 01/26/23 Jaymie Phoenix NP [address] [place] [phone] Nurse Practitioner Family Medicine 05/13/23 Targeteer Relationship Specialty Start Date End Date Rohan Rodríguez MD [address] [place] [phone] PCP - General Family Medicine 05/13/23 Jaymie Phoenix NP [address] [place] [phone] Nurse Practitioner Family Medicine 01/26/23 Jaymie Phoenix NP [address] [place] [phone] Nurse Practitioner Family Medicine 05/13/23 Targeteer Relationship Specialty Start Date End Date Rohan Rodríguez MD [address] [place] [id number] PCP - General Family Medicine 05/13/23 Jaymie Phoenix NP [address] [place] [phone] Nurse Practitioner Family Medicine 01/26/23 Jaymie Phoenix NP [address] [place] [phone] Nurse Practitioner Family Medicine 05/13/23 Targeteer Relationship Specialty Start Date End Date Rohan Rodríguez MD [address] [place] [phone] PCP - General Family Medicine 05/13/23 Jaymie Phoenix NP [address] [place] [phone] Nurse Practitioner Family Medicine 01/26/23 Jaymie Phoenix NP [address] [place] [phone] Nurse Practitioner Family Medicine 05/13/23 Targeteer Relationship Specialty Start Date End Date Rohan Rodríguez MD [address] [place] [phone] PCP - General Family Medicine 05/13/23 Jaymie Phoenix NP [address] [place] [phone] Nurse Practitioner Family Medicine 01/26/23 Jaymie Phoenix NP [address] [place] [phone] Nurse Practitioner Family Medicine 05/13/23 Targeteer Relationship Specialty Start Date End Date Rohan Rodríguez MD [address] [place] [phone] PCP - General Family Medicine 05/13/23 Jaymie Phoenix NP [address] [place] [address] Nurse Practitioner Family Medicine 01/26/23 Jaymie Phoenix NP [address] [place] [address] Nurse Practitioner Family Medicine 05/13/23 Targeteer Relationship Specialty Start Date End Date Rohan Rodríguez MD [address] [place] [phone] PCP - General Family Medicine 05/13/23 Jaymie Phoenix NP [address] [place] [phone] Nurse Practitioner Family Medicine 01/26/23 Jaymie Phoenix NP [address] [place] [phone] Nurse Practitioner Family Medicine 05/13/23 Targeteer Relationship Specialty Start Date End Date Rohan Rodríguez MD [address] [place] [phone] PCP - General Family Medicine 05/13/23 Jaymie Phoenix NP [address] [place] [phone] Nurse Practitioner Family Medicine 01/26/23 Jaymie Phoenix NP [address] [place] [phone] Nurse Practitioner Family Medicine 05/13/23 Targeteer Relationship Specialty Start Date End Date Rohan Rodríguez MD [address] [place] [phone] PCP - General Family Medicine 05/13/23 Jaymie Phoenix NP [address] [place] [phone] Nurse Practitioner Family Medicine 01/26/23 Jaymie Phoenix NP [address] [place] [phone] Nurse Practitioner Family Medicine 05/13/23 Targeteer Relationship Specialty Start Date End Date Rohan Rodríguez MD [address] [place] [phone] PCP - General Family Medicine 05/13/23 Jaymie Phoenix NP [address] [place] [phone] Nurse Practitioner Family Medicine 01/26/23 Jaymie Phoenix NP [address] [place] [phone] Nurse Practitioner Family Medicine 05/13/23 Targeteer Relationship Specialty Start Date End Date Rohan Rodríguez MD [address] [place] [phone] PCP - General Family Medicine 05/13/23 Jaymie Phoenix NP [address] [place] [phone] Nurse Practitioner Family Medicine 01/26/23 Jaymie Phoenix NP [address] [place] [phone] Nurse Practitioner Family Medicine 05/13/23 Targeteer Relationship Specialty Start Date End Date Rohan Rodríguez MD [address] [place] [phone] PCP - General Family Medicine 05/13/23 Jaymie Phoenix NP [address] [place] [phone] Nurse Practitioner Family Medicine 01/26/23 Jaymie Phoenix NP [address] [place] [phone] Nurse Practitioner Family Medicine 05/13/23 Targeteer Relationship Specialty Start Date End Date Rohan Rodríguez MD [address] [place] [phone] PCP - General Family Medicine 05/13/23 Jaymie Phoenix NP [address] [place] [phone] Nurse Practitioner Family Medicine 01/26/23 Jaymie Phoenix NP [address] [place] [phone] Nurse Practitioner Family Medicine 05/13/23 Targeteer Relationship Specialty Start Date End Date Rohan Rodríguez MD [address] [place] [address] PCP - General Family Medicine 05/13/23 Jaymie Phoenix NP [address] [place] [phone] Nurse Practitioner Family Medicine 01/26/23 Jaymie Phoenix NP [address] [place] [phone] Nurse Practitioner Family Medicine 05/13/23 Reason for Visit (unrecogniz ed section and content) Reason Comments Med Refill Reason Comments Med Refill Reason Onset Date Comments Med Refill 06/14/2024 FOR RECORDS PERTAINING TO PATIENTS WHO ARE [...] BE BASED ON THE PRIMARY CLINICAL RECORDS. [employer] provides no warranty or guarantee of the accuracy or completeness of information in this document.
[2024-06-28 11:31] VITALS: BP 127/73; PULSE 75; TEMP 36.8; O2SAT 98; BMI 34.9
[2024-06-28] MEDS: KETOROLAC TROMETHAMINE 30 MG/ML VIAL IM (12:01)
--- NOTE | 2024-06-28 13:27 | ED.GENADUL1 ---
HPI HPI - General Adult General Chief complaint: Extremity Problem, Nontraumatic Stated complaint: BACK/LEG PAIN Time Seen by Provider: 06/28/24 11:22 Source: patient Mode of arrival: walk-in Limitations: no limitations History of Present Illness HPI narrative: This 58-year-old female states she was working in her yard 4 to 5 days ago and was on her hands and knees pulling weeds. Following that she has developed severe low back pain on the left side that goes down the back of the left leg up to the level of the knee. She is able to ambulate without assistance. She does not report weakness of the leg or loss of bladder control. Patient has a history of COPD. She has a history of back problems and has had radioablation in the past. She also has unspecified psychiatric issues for which she is on mood stabilizers. Related Data Home Medications ?Medication ?Instructions ?Recorded ?Confirmed amitriptyline 100 mg tablet 100 mg PO QPM 12/25/23 06/28/24 atorvastatin 20 mg tablet 20 mg PO QPM 12/25/23 06/28/24 lamotrigine 150 mg tablet 150 mg PO DAILY 12/25/23 06/28/24 lamotrigine 200 mg tablet 200 mg PO QPM 12/25/23 06/28/24 meloxicam 15 mg tablet 15 mg PO QAM 12/25/23 06/28/24 Held on 12/28/23. Instructions: Resume on 01/04/24. hold while taking medrol dose pack montelukast 10 mg tablet 10 mg PO QPM 12/25/23 06/28/24 omeprazole 40 mg capsule,delayed 40 mg PO DAILY 12/25/23 06/28/24 release prazosin 2 mg capsule 2 mg PO QPM 12/25/23 06/28/24 pregabalin 100 mg capsule 100 mg PO BID 12/25/23 06/28/24 propranolol 40 mg tablet 40 mg PO BID 12/25/23 06/28/24 quetiapine 100 mg tablet 300 mg PO DAILY 12/25/23 06/28/24 spironolactone 50 mg tablet 50 mg PO QAM 12/25/23 06/28/24 tizanidine 4 mg tablet 4 mg PO Q8H PRN muscle spasticity 12/25/23 06/28/24 prazosin 1 mg capsule mg 06/28/24 Previous Rx's ?Medication ?Instructions ?Recorded albuterol sulfate 2.5 mg/3 mL 1.25 mg (1.5 mL) inhalation Q6H 12/24/23 (0.083 %) solution for nebulization PRN shortness of breath or wheezing #90 mL hydrocodone 5 mg-acetaminophen 325 1 tab PO Q6H PRN pain #12 tabs 06/28/24 mg tablet Allergies Allergy/AdvReac Type Severity Reaction Status Date / Time prednisone Allergy Severe Anaphylaxis Verified 06/28/24 11:28 Penicillins AdvReac Severe Anaphylaxis Verified 06/28/24 11:28 Opioid HPI Opioid Management Most Recent Opioid Data: Last Pain Scale 4 12/26/23, 22:00 Last ORT Total Score 1 12/25/23, 23:46 Last ORT Risk Category Low Risk 12/25/23, 23:46 Review of Systems ROS Status of ROS 10 or more systems reviewed and unremarkable except as noted in history and below PFS PFS Medical History Tobacco abuse ?Z72.0 - Tobacco use (ICD-10) COPD (chronic obstructive pulmonary disease) ?J44.9 - Chronic obstructive pulmonary disease, unspecified (ICD-10) Anxiety ?F41.9 - Anxiety disorder, unspecified (ICD-10) Depression ?F32.A - Depression, unspecified (ICD-10) High cholesterol ?E78.00 - Pure hypercholesterolemia, unspecified (ICD-10) HTN (hypertension) ?I10 - Essential (primary) hypertension (ICD-10) Family History Other Family history not known due to adoption Social History Within the past year, how often did you have a drink containing alcohol: monthly or less Within the past year, how many standard drinks containing alcohol did you have on a typical day: 1 or 2 Total score: 0 Score interpretation: A score less than 3 is consistent with normal alcohol consumption. Smoking status: Current every day smoker Non-prescribed substance use: denies use Previous occupational history: retired Are you now , , , , never or living with a partner: In a typical week, how many times do you talk on the telephone with family, friends, or neighbors: 3 or more times per week How often do you get together with friends or relatives: 3 or more times per week Little interest or pleasure in doing things: not at all Feeling down, depressed, or hopeless: not at all Feel stressed/tense/nervous/anxious/difficulty sleeping: not at all Do you think of yourself as: straight/heterosexual Gender Identity: female Exam Narrative Exam Narrative: Patient is morbidly obese, afebrile and in no acute distress. Vital signs are stable and are as documented. HEENT exam is normal to inspection. Neck is supple. Lung sounds are clear to auscultation bilaterally. Heart has regular rate and rhythm. Abdomen is protuberant, soft nontender. She localizes tenderness in the left lower paralumbar soft tissue. Tone and power are normal and symmetric in both lower extremities. Constitutional Vital Signs, click to edit/add: Last Vital Signs Temp 98.3 F 06/28/24 11:31 Pulse 75 06/28/24 11:31 Resp 16 06/28/24 11:31 BP 127/73 06/28/24 11:31 Pulse Ox 98 06/28/24 11:31 O2 Del Method Room Air 06/28/24 11:31 Course Vital Signs Vital signs: Vital Signs Temperature 98.3 F 06/28/24 11:31 Pulse Rate 75 06/28/24 11:31 Respiratory Rate 16 06/28/24 11:31 Blood Pressure 127/73 06/28/24 11:31 Pulse Oximetry 98 06/28/24 11:31 Oxygen Delivery Method Room Air 06/28/24 11:31 Temperature 98.3 F 06/28/24 11:31 Pulse Rate 75 06/28/24 11:31 Respiratory Rate 16 06/28/24 11:31 Blood Pressure 127/73 06/28/24 11:31 Pulse Oximetry 98 06/28/24 11:31 Oxygen Delivery Method Room Air 06/28/24 11:31 Medical Decision Making MDM Narrative Medical decision making narrative: Patient presents with left lower back pain with radiation down the left leg consistent with lumbar radiculopathy. I do not feel imaging is indicated at this time but she will need some pain relief. She was treated with Toradol 30 mg IM in the ED and is placed on [place] at home. She is already on a nonsteroidal and a muscle relaxant. She is advised follow-up with her PCP in the next few days and is to return for worsening symptoms. Discharge Plan Discharge Chief Complaint: Extremity Problem, Nontraumatic Clinical Impression: Lumbar radiculopathy Patient Disposition: Home, Self-Care Time of Disposition Decision: 11:51 Condition: Good Mode of Transportation: Private Vehicle Prescriptions / Home Meds: New hydrocodone-acetaminophen 5-325 mg tablet 1 tab PO Q6H PRN (Reason: pain) Qty: 12 0RF No Action albuterol sulfate 2.5 mg /3 mL (0.083 %) solution for nebulization 1.25 mg inhalation Q6H PRN (Reason: shortness of breath or wheezing) Qty: 90 0RF amitriptyline 100 mg tablet 100 mg PO QPM atorvastatin 20 mg tablet 20 mg PO QPM lamotrigine 200 mg tablet 200 mg PO QPM lamotrigine 150 mg tablet 150 mg PO DAILY meloxicam 15 mg tablet 15 mg PO QAM montelukast 10 mg tablet 10 mg PO QPM omeprazole 40 mg capsule,delayed release(DR/EC) 40 mg PO DAILY prazosin 2 mg capsule 2 mg PO QPM pregabalin 100 mg capsule 100 mg PO BID propranolol 40 mg tablet 40 mg PO BID quetiapine 100 mg tablet 300 mg PO DAILY spironolactone 50 mg tablet 50 mg PO QAM tizanidine 4 mg tablet 4 mg PO Q8H PRN (Reason: muscle spasticity) prazosin 1 mg capsule Print Language: [place] Citizen Instructions: Lumbar Radiculopathy (ED) Additional Instructions: Follow-up with your primary care provider in the next 3 to 5 days. Return for worsening symptoms. Referrals: Jaymie Phoenix NP [Primary Care Provider, Family Practice] - 1 week Discharge Date/Time: 06/28/24 12:09
== END 2024-06-28 12:09 | disposition home or self-care (01) ==
PROVIDERS: Emergency Provider Emergency Medicine; PCP Nurse Practitioner
DX: M54.16 Radiculopathy, lumbar region (principal); J44.9 Chronic obstructive pulmonary disease, unspecified; Z79.899 Other long term (current) drug therapy; F99 Mental disorder, not otherwise specified; F17.200 Nicotine dependence, unspecified, uncomplicated; E66.01 Morbid (severe) obesity due to excess calories; Z68.34 Body mass index [BMI] 34.0-34.9, adult
CPT/HCPCS: 96372; 99284; J1885

== ENCOUNTER 2024-09-14 13:49 | Outpatient (OUT) | payer MEDICARE, SELFPAY ==
--- NOTE | 2024-09-14 14:23 | PM.CN ---
Consult Note: HPI Data of Consult Patient: known to practice within the last 3 years Consult date: 09/14/24 Requesting Physician: Jenniffer Vazquez NP Primary Care Provider: Jaymie Phoenix NP Consult Narrative Reason for consult: low back pain Narrative: Gertrudis Gagnon a pleasant 59 year old female presents for evaluation of worsening low back and left leg pain, previous pt of Dr Guidry. no recent PT, no recent xrays or MRI imaging of lumbar spine. denies recent falls or injury. pain increasing over the last 3 months and especially the last 3 weeks, noting pain today 8/10 aching. pain increased with standing, walking, sitting, lying, stairs, bending, and sleep. pt utilizing pregabalin 100mg bid and zanaflex for fibromyalgia. cc:: CC: Jenniffer Vazquez NP Review of Systems ROS Musculoskeletal Reports: back pain, extremity pain and joint pain [facility] Medical History Tobacco abuse ?Z72.0 - Tobacco use (ICD-10) COPD (chronic obstructive pulmonary disease) ?J44.9 - Chronic obstructive pulmonary disease, unspecified (ICD-10) Anxiety ?F41.9 - Anxiety disorder, unspecified (ICD-10) Depression ?F32.A - Depression, unspecified (ICD-10) High cholesterol ?E78.00 - Pure hypercholesterolemia, unspecified (ICD-10) HTN (hypertension) ?I10 - Essential (primary) hypertension (ICD-10) Family History Other Family history not known due to adoption Social History Within the past year, how often did you have a drink containing alcohol: monthly or less Within the past year, how many standard drinks containing alcohol did you have on a typical day: 1 or 2 Total score: 0 Score interpretation: A score less than 3 is consistent with normal alcohol consumption. Smoking status: Current every day smoker Non-prescribed substance use: denies use Previous occupational history: retired Are you now , , , , never or living with a partner: In a typical week, how many times do you talk on the telephone with family, friends, or neighbors: 3 or more times per week How often do you get together with friends or relatives: 3 or more times per week Little interest or pleasure in doing things: not at all Feeling down, depressed, or hopeless: not at all Feel stressed/tense/nervous/anxious/difficulty sleeping: not at all Do you think of yourself as: straight/heterosexual Gender Identity: female Meds Home Medications and Allergies Home Medications ?Medication ?Instructions ?Recorded ?Confirmed ?Type albuterol sulfate 2.5 mg/3 mL 1.25 mg (1.5 mL) inhalation Q6H 12/24/23 06/28/24 Rx (0.083 %) solution for nebulization PRN shortness of breath or wheezing #90 mL amitriptyline 100 mg tablet 100 mg PO QPM 12/25/23 06/28/24 History atorvastatin 20 mg tablet 20 mg PO QPM 12/25/23 06/28/24 History lamotrigine 150 mg tablet 150 mg PO DAILY 12/25/23 06/28/24 History lamotrigine 200 mg tablet 200 mg PO QPM 12/25/23 06/28/24 History meloxicam 15 mg tablet 15 mg PO QAM 12/25/23 06/28/24 History Held on 12/28/23. Instructions: Resume on 01/04/24. hold while taking medrol dose pack montelukast 10 mg tablet 10 mg PO QPM 12/25/23 06/28/24 History omeprazole 40 mg capsule,delayed 40 mg PO DAILY 12/25/23 06/28/24 History release prazosin 2 mg capsule 2 mg PO QPM 12/25/23 06/28/24 History pregabalin 100 mg capsule 100 mg PO BID 12/25/23 06/28/24 History propranolol 40 mg tablet 40 mg PO BID 12/25/23 06/28/24 History quetiapine 100 mg tablet 300 mg PO DAILY 12/25/23 06/28/24 History spironolactone 50 mg tablet 50 mg PO QAM 12/25/23 06/28/24 History tizanidine 4 mg tablet 4 mg PO Q8H PRN muscle spasticity 12/25/23 06/28/24 History hydrocodone 5 mg-acetaminophen 325 1 tab PO Q6H PRN pain #12 tabs 06/28/24 Rx mg tablet prazosin 1 mg capsule mg 06/28/24 History Allergies Allergy/AdvReac Type Severity Reaction Status Date / Time prednisone Allergy Severe Anaphylaxis Verified 06/28/24 11:28 Penicillins AdvReac Severe Anaphylaxis Verified 06/28/24 11:28 Exam Constitutional Documenting provider has reviewed patient's vital signs: yes Common normals: no apparent distress, oriented x3, healthy appearing, alert and well nourished General appearance: cooperative HENMT Common normals: normocephalic, hearing grossly normal bilaterally and moist oral mucous membranes Head and scalp: normocephalic Eye Common normals: PERRL Pupil: PERRL Neck & C-Spine Common normals: full ROM General: normal visual inspection Chest Common normals: inspection of chest normal Respiratory Common normals: normal respiratory effort, no retractions and no use of accessory muscles Back & Pelvis Lumbar spine/lower back: pain with ROM, lumbar spinal tenderness and straight leg raise positive left Sacroiliac joints: SI joint(s) abnormal Other: decreased sensation left L4,5,S1 strength 4/5 in LLE and 5/5 in RLE left sij positive natasha(patricks), gaenslens, thigh thrust, compression test Neuro Common normals: oriented x3 Sensorium/orientation: alert Psych Common normals: mental status grossly normal, thought process normal, cooperative, affect normal, speech normal and activity/motor behavior normal Speech: normal speech Thought process: normal thought process Results Additional Findings Additional findings: If on a controlled substance or opioids, I have checked an [place] report on this patient and there are no aberrancies noted in the prescribing history.??If on a controlled substance or opioid a drug screen was completed and reviewed within the last year, and if there has not been a drug screen completed we ordered one today to monitor higher risk, state monitored pain medication use. As part of providing excellent, safe, comprehensive care, the following was completed at our patient's visit: 1. A medication reconciliation and review to ensure accurate knowledge of current/active medications, including asking our patients to inform us about any [id number] medications or herbal remedies/nutritional supplements/alternative remedies. 2. A review to specifically ensure our patients have had annual screening for screening for depression, screening for tobacco use, and screening for unhealthy alcohol use. For concerning screenings had a discussion with the patient, provided patient education, and recommended follow-up with primary care provider when appropriate. If patient noted with a risk of falling, they received education on strength, gait, and balance training to prevent future risk of falling. Portions of this note may have been carried over from the previous visit and updated as appropriate. Please note this office utilizes paper charting in addition to the electronic medical record. A list of current medications, vitals, and PMH is available there as the clinical staff outside of myself do not have access to [employer] charting during the clinic day operations. As part of providing quality comprehensive care the current medications, vitals, and PMH were reviewed in the paper chart. Assessment and Plan Assessment and Plan (1) Lumbar stenosis with neurogenic claudication: (2) Sacroiliitis: (3) Myalgia, other site: Plan 59 year old female with acute on chronic low back pain without recent imaging or PT. recommend updating lumbar xray with flexion, dc zanaflex and start flexeril 10mg TID PRN pain/spasms. can continue [facility] prn. PT for sacroilitis and lumbar stenosis with NC. f/u 4-6 weeks
== END 2024-09-14 13:50 | disposition home or self-care (01) ==
LOC: PM 13:49
PROVIDERS: PCP Nurse Practitioner; Visit Provider Nurse Practitioner
DX: M48.062 Spinal stenosis, lumbar region with neurogenic claudication (principal); M46.1 Sacroiliitis, not elsewhere classified; M79.18 Myalgia, other site
CPT/HCPCS: G0463

== ENCOUNTER 2024-09-19 14:02 | Outpatient (OUT) | payer MEDICARE, SELFPAY ==
--- NOTE | 2024-09-19 14:28 | XR_ITS ---
[place] [address] Patient Name: FRANKY SRINIVASAN MRN: [id number] date: 1965 Sex: F Assigned Patient Location: [facility] Current Patient Location: [facility] Accession/Order Number: [id number] Exam Date: 09/19/2024 14:32 Report Date: 09/19/2024 14:33 At the request of: ESTELLE LOZANO NP Procedure: XR lumbar spine 6V w bending LUMBAR SPINE - 6 views CLINICAL HISTORY: Lumbar stenosis COMPARISON: None FINDINGS: Vertebral heights appear maintained. Mild diffuse degenerative disc disease with relative sparing of L4-L5 disc level.. No pathological motion on flexion or extension views. SI joints demonstrate degenerative change. XR/XR lumbar spine 6V w bending IMPRESSION: MILD DIFFUSE DEGENERATIVE DISC DISEASE WITH RELATIVE SPARING OF THE L4-L5 DISC LEVEL. Impression dictated by: Joaquin Chatman Jr., D.O. 09/19/2024 2:33 PM Dictation Location: [place] [address] Electronically authenticated by: [id number] Date: 09/19/2024 14:33
--- OUTSIDE RECORDS SUMMARY | 2024-09-19 14:31 | XMS_ITS | CCD ---
Author Organization [facility] Care Team Providers Care Manager Of It Name Role Phone JAYMIE PHOENIX Primary Care Physician Bryson SAMPSON Attending Unavailable JAYMIE PHOENIX J Referring Unavailabl e NILL, Bryson Hernandez Attending Unavailable Aichholz, Tracy L Referring Unavailable NILL, Bryson Hernandez Attending Unavailable NILL, Bryson Hernandez Attending Unavailable NILL, Bryson Hernandez Attending Unavailable AICHHOLZ, SUPERINTENDENT METERS JAYMIE Primary Care Unavailable ALLAN ., DR JIM Mcdonnell Attending Unavailable ALLAN ., DR JIM Mcdonnell Admitting Unavailable ALLAN ., DR JIM Mcdonnell Consulting Unavailable ROBINSON ., GLENROY Admitting Unavailable ROBINSON ., GLENROY Attending Unavailable SJ SOLER Consulting Unavailable AICHHOLZ, SUPERINTENDENT METERS JAYMIE Primary Care Unavailable MENDEZ ., MR DEMETRIUS Admitting Unavailable MENDEZ ., MR DEMETRIUS Attending Unavailable AICHHOLZ, SUPERINTENDENT METERS JAYMIE Primary Care Unavailable AICHHOLZ, SUPERINTENDENT METERS JAYMIE Admitting Unavailable JUANITA, DR NADINE Caldwell Consulting Unavailable AICHHOLZ, SUPERINTENDENT METERS JAYMIE Primary Care Unavailable AICHHOLZ, SUPERINTENDENT METERS JAYMIE Attending Unavailable AICHHOLZ, SUPERINTENDENT METERS JAYMIE Consulting Unavailable AICHHOLZ, SUPERINTENDENT METERS JAYMIE Admitting Unavailable JUANITA, DR NADINE Caldwell Consulting Unavailable AICHHOLZ, SUPERINTENDENT METERS JAYMIE Primary Care Unavailable AICHHOLZ, SUPERINTENDENT METERS JAYMIE Attending Unavailable AICHHOLZ, SUPERINTENDENT METERS JAYMIE Consulting Unavailable AICHHOLZ, SUPERINTENDENT METERS JAYMIE Primary Care Unavailable NILL ., DR MASSEY Admitting Unavailable NILL ., DR MASSEY Attending Unavailable NILL ., DR MASSEY Consulting Unavailable SONDRA FELICIANO Consulting Unavailable ROBINSON ., GLENROY Admitting Unavailable ROBINSON ., GLENROY Attending Unavailable ROBINSON ., GLENROY Consulting Unavailable AICHHOLZ, SUPERINTENDENT METERS JAYMIE Primary Care Unavailable ALLAN ., DR JIM Mcdonnell Attending Unavailable ALLAN ., DR JIM Mcdonnell Consulting Unavailable ALLAN ., DR JIM Mcdonnell Admitting Unavailable AICHHOLZ, SUPERINTENDENT METERS JAYMIE Primary Care Unavailable MARIA FERNANDA SOSA Consulting Unavailable ALLAN ., DR JIM Mcdonnell Attending Unavailable ALLAN ., DR JIM Mcdonnell Consulting Unavailable ALLAN ., DR JIM Mcdonnell Admitting Unavailable AICHHOLZ, SUPERINTENDENT METERS JAYMIE Primary Care Unavailable ALLAN ., DR JIM Mcdonnell Admitting Unavailable ALLAN ., DR JIM Mcdonnell Attending Unavailable ALLAN ., DR JIM Mcdonnell Consulting Unavailable AICHHOLZ, SUPERINTENDENT METERS JAYMIE Primary Care Unavailable ALLAN ., DR JIM Mcdonnell Admitting Unavailable ALLAN ., DR JIM Mcdonnell Attending Unavailable AICHHOLZ, SUPERINTENDENT METERS JAYMIE Primary Care Unavailable THORNE ., JENNY Consulting Unavailable ALLAN ., DR JIM Mcdonnell Admitting Unavailable ALLAN ., DR JIM Mcdonnell Attending Unavailable ALLAN ., DR JIM Mcdonnell Consulting Unavailable AICHHOLZ, SUPERINTENDENT METERS JAYMIE Primary Care Unavailable ALLAN ., DR JIM Mcdonnell Admitting Unavailable ALLAN ., DR JIM Mcdonnell Attending Unavailable ALLAN ., DR JIM Mcdonnell Consulting Unavailable AICHHOLZ, SUPERINTENDENT METERS JAYMIE Primary Care Unavailable THORNE ., JENNY Consulting Unavailable ALLAN ., DR JIM Mcdonnell Admitting Unavailable ALLAN ., DR JIM Mcdonnell Attending Unavailable AICHHOLZ, SUPERINTENDENT METERS JAYMIE Primary Care Unavailable ALLAN ., DR JIM Mcdonnell Attending Unavailable ALLAN ., DR JIM Mcdonnell Consulting Unavailable ALLAN ., DR JIM Mcdonnell Admitting Unavailable AICHHOLZ, SUPERINTENDENT METERS JAYMIE Primary Care Unavailable LAKSHMIPATHY ., NARENDRANEDWAR Consulting Evelyn vailable NILL ., DR MASSEY Consulting Unavailable NILL ., DR MASSEY Admitting Unavailable AICHHOLZ, SUPERINTENDENT METERS JAYMIE Primary Care Unavailable NILL ., DR MASSEY Attending Unavailable AICHHOLZ, SUPERINTENDENT METERS JAYMIE Admitting Unavailable AICHHOLZ, SUPERINTENDENT METERS JAYMIE Attending Unavailable AICHHOLZ, SUPERINTENDENT METERS JAYMIE Consulting Unavailable AICHHOLZ, SUPERINTENDENT METERS JAYMIE Primary Care Unavailable DR MELISSA ROSENBERG Consulting Unavailable AICHHOLZ, SUPERINTENDENT METERS JAYMIE Admitting Unavailable AICHHOLZ, SUPERINTENDENT METERS JAYMIE Attending Unavailable AICHHOLZ, SUPERINTENDENT METERS JAYMIE Consulting Unavailable AICHHOLZ, SUPERINTENDENT METERS JAYMIE Primary Care Unavailable LORI FROST Consulting Unavailable ALLAN ., DR JIM Mcdonnell Attending Unavailable ALLAN ., DR JIM Mcdonnell Admitting Unavailable AICHHOLZ, SUPERINTENDENT METERS JAYMIE Primary Care Unavailable AICHHOLZ, SUPERINTENDENT METERS JAYMIE Primary Care Unavailable SAMSA ., MAGDALENA Admitting Unavailable SAMSA ., MAGDALENA Attending Unavailable SAMSA ., MAGDALENA Consulting Unavailable ALLAN ., DR JIM Mcdonnell Attending Unavailable JERRELL ., DR JMI Mcdonnell Admitting Unavailable JERRELL ., DR JIM Mcdonnell Consulting Unavailable AICHARI, MEREDITH JAYMIE Primary Care Unavailable AICHHOLHomer, SUPERINTENDENT METERS JAYMIE Admitting Unavailable AICHHOLZ, SUPERINTENDENT METERS JAYMIE Attending Unavailable AICHHOLZ, SUPERINTENDENT METERS JAYMIE Consulting Unavailable AICHHOLZ, SUPERINTENDENT METERS JAYMIE Primary Care Unavailable Aichholz CERTIFIED DRIVER EXAMINER, Jaymie Unavailable Alma AMADOR, Primary Care Provider Aicholhomer CERTIFIED DRIVER EXAMINER, Jaymie Unavailable Rohan Rodríguez MD Primary Care Provider [phone] Aicholhomer CERTIFIED DRIVER EXAMINER, Jaymie Unavailable Alphonse Damian Attending Unavailab Alphonse Todd Admitting Unavailab le Jaymie Phoenix J Primary Care Unavailable SAUMYA BACK Attending Unavailable BROOKE PHOENIXA Referring Unavailable DUCHOLBROOKE CoronelA Attending Unavailable NAT HENDERSON Attending Unavailable MADDYHHOLHomer, JAYMIE Attending Unavailable DUCHOLHomer, JAYMIE Attending Unavailable Allergies Allergy Classification Reported Allergen(s) Allergy Type Date of Onset Reaction(s) Facility (20 sources) Penicillins; Translations: [penicillins] Drug allergy 4 Dyspnea (finding), Weal (disorder), Hives, Shortness of breath, Swelling [facility] [place] (2 sources) predniSONE; Translations: [prednisone] Drug Allergy Dyspnea (finding) [facility] [place] (1 source) prednisoLONE Drug Allergy [facility] Rep[facility] (20 sources) Prednisone Propensity to adverse reactions 3 Itching [facility] Medications Current Medications Medication Drug Class(es) Dates Sig (Normalized) Sig (Original) acetaminophen 325 mg / HYDROcodone bitartrate 5 mg oral tablet (3 sources) Opioid Agonist Start: 08-29-2024 End: 09-08-2024 take 1 tablet by mouth once HYDROcodone-acetam inophen ([place]) 5-325 MG tablet Indications: Acute back pain with sciatica, unspecified laterality Take 1 tablet by mouth every 12 (twelve) hours if needed for severe pain for up to 10 days 20 tablet 08/29/2024 09/08/2024 Active [id number] 200 actuat albuterol 0.09 mg/actuat metered dose inhaler (20 sources) beta2-Adrenergic Agonist Start: 04-19-2024 End: 05-19-2024 take 2 puff(s) by inhalation every six hours for wheezing albuterol HFA 90 mcg/act inhaler Indications: COPD mixed type (HCC) Inhale 2 puffs every 6 (six) hours if needed for shortness of breath or wheezing 18 g 04/19/2024 Active Start: 12-24-2023 albuterol (2.5 MG/3ML) 0.083% nebulizer solution Take 2.5 mg by nebulization every 6 (six) hours if needed for shortness of breath or wheezing 12/24/2023 Active albuterol 0.833 mg/ml / ipratropium bromide 0.167 mg/ml inhalation solution (20 sources) Anticholinergic, beta2-Adrenergic Agonist Start: 12-28-2023 ipratropium-albuterol (Duo-Neb) 0.5-2.5 mg/3 mL nebulizer solution Take 3 mL by nebulization every 6 (six) hours if needed for wheezing or shortness of breath 12/28/2023 Active amitriptyline hydrochloride 100 mg oral tablet (20 sources) Tricyclic Antidepressant Start: 01-26-2024 End: 10-29-2024 take 0.5 tablet by mouth at bedtime amitriptyline (Elavil) 100 MG tablet Indications: Fibromyalgia Take 0.5 tablets (50 mg) by mouth at bedtime 45 tablet 1 07/31/2024 10/29/2024 Active Start: 05-05-2023 End: 01-24-2024 take 0.5 [...] sources) HMG-CoA Reductase Inhibitor Start: 04-10-2024 End: 10-29-2024 take 1 tablet by mouth at bedtime atorvastatin (Lipitor) 20 MG tablet Indications: Mixed hyperlipidemia Take 1 tablet (20 mg) by mouth at bedtime 90 tablet 1 07/31/2024 10/29/2024 Active Start: 05-18-2023 End: 02-02-2024 take 1 [...] inhaler (20 sources) Corticosteroid, beta2-Adrenergic Agonist Start: 07-31-2024 End: 10-29-2024 take 2 puff(s) by inhalation in the morning, then take 2 puff(s) by inhalation at bedtime, then take 2 puff(s) by inhalation in the morning, then take 2 puff(s) by inhalation at bedtime Mqwpvta-Uncgwbcxowu-Nzsjqgelpt (Breztri Aerosphere) 160-9-4.8 MCG/ACT aerosol Indications: COPD mixed type (HCC) Inhale 2 puffs in the morning and 2 puffs before bedtime. Inhale 2 puffs in the morning and 2 puffs before bedtime. 32 g 1 07/31/2024 10/29/2024 Active Start: 09-29-2022 End: 07-31-2024 take 2 puff(s) by inhalation in the morning Breztri Aerosphere 160-9-4.8 MCG/ACT aerosol Inhale 2 puffs in the morning and 2 puffs before bedtime. 09/29/2022 07/31/2024 Discontinued (Reorder) bumetanide 0.5 mg oral tablet (20 sources) Loop Diuretic Start: 06-07-2023 End: 07-31-2024 bumetanide (Bumex) 0.5 MG tablet Indications: Bilateral lower extremity edema Take M W F only 27 tablet 1 07/31/2024 Active Start: 03-25-2023 End: 04-08-2023 take 1 tablet by mouth in the morning bumetanide (Bumex) 0.5 MG tablet Indications: Bilateral lower extremity edema Take 1 tablet (0.5 mg) by mouth in the morning for 14 days. 14 tablet 0 03/25/2023 04/08/2023 Active cetirizine hydrochloride 10 mg oral tablet (15 sources) Histamine-1 Receptor Antagonist Start: 04-19-2024 End: 10-29-2024 take 1 tablet by mouth once daily cetirizine (ZyrTEC) 10 MG tablet Indications: Environmental and seasonal allergies Take 1 tablet (10 mg) by mouth Daily 90 tablet 1 07/31/2024 10/29/2024 Active cholecalciferol 0.125 mg oral tablet (20 [...] sources) Leukotriene Receptor Antagonist Start: 08-24-2023 End: 10-29-2024 take 1 tablet by mouth at bedtime montelukast (Singulair) 10 MG tablet Indications: Environmental and seasonal allergies Take 1 tablet (10 mg) by mouth at bedtime 90 tablet 1 07/31/2024 10/29/2024 Active omeprazole 40 mg delayed release oral capsule (20 sources) Proton Pump Inhibitor Start: 05-05-2023 End: 10-29-2024 take 1 capsule by mouth once daily omeprazole (PriLOSEC) [address] capsule Indications: Gastro-esophageal reflux disease without esophagitis Take 1 capsule (40 mg) by mouth Daily 90 capsule 1 07/31/2024 10/29/2024 Active Start: 01-22-2022 take 1 capsule by mo [facility] once daily omeprazole 40 mg Cap-DR 40 mg = 1 cap(s), Oral, Daily, Refills(s) 0 Start Date: 01/22/22 Status: Ordered prazosin 1 mg oral capsule (20 sources) alpha-Adrenergic Lenora Start: 11-16-2023 take 1 capsule by mouth at bedtime prazosin (Minipress) 1 MG capsule Take 1 mg by mouth at bedtime 11/16/2023 Active Start: 01-22-2022 take 1 capsule by mo uth at bedtime prazosin 2 mg oral capsule 2 mg = 1 cap(s), Oral, Bedtime, Refills(s) 0 Start Date: 01/22/22 Status: Ordered pregabalin 100 mg oral capsule (20 sources) Start: 12-31-2023 End: 08-30-2024 take 1 capsule by mouth in the morning pregabalin (Lyrica) 100 MG capsule Indications: Fibromyalgia Take 1 capsule (100 mg) by mouth in the morning and 1 capsule (100 mg) before bedtime. 60 capsule 2 07/31/2024 08/30/2024 Active Start: 06-28-2023 take 1 capsule by mo uth in the morning pregabalin (Lyrica) 100 MG [...] (20 sources) beta-Adrenergic Lenora Start: 01-26-2024 End: 10-29-2024 take 1 tablet by mouth in the morning propranolol (Inderal) 40 MG tablet Indications: Personal history of other diseases of the nervous system and sense organs Take 1 tablet (40 mg) by mouth in the morning and 1 tablet (40 mg) before bedtime. 180 tablet 1 07/31/2024 10/29/2024 Active Start: 12-25-2023 End: 01-24-2024 take 1 [...] mouth at bedtime 05/11/2024 Active Start: 01-22-2022 End: 07-31-2024 SEROquel 100 mg Tab 1 tabs Q AM and 4 tabs qpm, Refills(s) 0 Start Date: 01/22/22 Status: Ordered End: 07-31-2024 take 1 tablet by mouth at bedtime QUEtiapine (SEROquel) 400 MG tablet Take 400 mg by mouth at bedtime 07/31/2024 Discontinued simvastatin 40 mg oral tablet (1 source) [...] in the morning. 30 tablet 5 04/10/2024 Active Start: 09-24-2023 take 1 tablet by [...] Central alpha-2 Adrenergic Agonist Start: 01-03-2024 End: 08-04-2024 take 1 tablet by mouth once tiZANidine (Zanaflex) 4 MG tablet Indications: Fibromyalgia Take 1 tablet (4 mg) by mouth every 12 (twelve) hours if needed for muscle spasms 60 tablet 2 07/05/2024 Active Start: 05-05-2023 End: 01-03-2024 take 1 [...] 0 Active varenicline 1 mg oral tablet (20 sources) Partial Cholinergic Nicotinic Agonist Start: 07-31-2024 End: 09-05-2024 take 1 tablet by mouth twice daily Varenicline Tartrate, Starter, 0.5 MG X 11 & 1 MG X 42 tablet therapy pack Indications: Tobacco dependence Take 1 tablet by mouth Daily 0.5mg once a day for 3 days, then 0.5mg twice a day for 4 days, then 1mg twice a day 53 each 08/06/2024 09/05/2024 Active Start: 06-26-2024 End: 08-30-2024 take 1 tablet by mouth once daily Varenicline Tartrate, Starter, (Chantix Starting Month ) 0.5 MG X 11 & 1 MG X 42 tablet therapy pack Indications: Tobacco dependence Take 1 tablet by mouth Daily Take as directed 53 each 07/31/2024 08/06/2024 Discontinued Vitamin D3 5000 intl units (125 mcg) [...] Onset: 4 01-22-2022 Chronic Chronic kidney disease (13 sources) Chronic kidney disease stage 3A ; [...] drug induced secondary parkinsonism] 03-14-2024 Chronic Other nervous system disorders (2 sources) H/O: Disorder; Translations: [Personal history of other diseases of the nervous system and sense organs] 07-31-2024 Episodic Other nutritional; endocrine; and metabolic disorders [...] nutritional; endocrine; and metabolic disorders (20 sources) Obesity caused by energy imbalance; Translations: [Morbid (severe) obesity due to excess calories] Onset: 4 02-10-2024 Chronic Other screening for suspected conditions (not mental disorders or infectious disease) (20 sources) Stool DNA-based colorectal cancer screening positive; Translations: [Other fecal abnormalities] Onset: 2 02-03-2022 Episodic Other upper respiratory disease (16 sources) Allergic disposition; Translations: [Other allergic rhinitis] [...] pain] Onset: 4 01-22-2022 Episodic Substance-related disorders (20 sources) Nicotine dependence, cigarettes, [...] disorders (20 sources) Mood disorders Onset: 4 Resolved: 5 06-03-2023 Nutritional deficiencies (20 sources) Cobalamin deficiency; Translations: [Deficiency of other specified B group vitamins] Onset: 4 01-22-2022 Episodic Open wounds of extremities (20 sources) Open wound of left foot; Translations: [Unspecified open wound, left foot, initial encounter] Onset: 3 Resolved: 4 01-26-2023 Episodic Other aftercare (1 source) Other terminal gauger supervisor (current) drug therapy; Translations: [OTH CARE HOME CURRENT DRUG THERAPY] Onset: 3 Episodic [...] Dyspnea; Translations: [Shortness of breath] Onset: 4 Resolved: 5 03-25-2023 Episodic Other nervous system disorders (20 sources) Tremor; Translations: [Tremor, unspecified] Onset: 5 02-10-2024 Episodic Other non-traumatic joint disorders (20 sources) Pain in left knee; Translations: [Pain in joint, lower leg] Onset: 2 Resolved: 4 03-16-2023 Episodic Other nutritional; endocrine; and metabolic disorders (20 sources) Severe obesity; Translations: [Morbid (severe) obesity due to excess calories] Onset: 3 Resolved: 4 01-26-2023 Chronic Other skin disorders (20 sources) Decorative tattoo; Translations: [Other specified disorders of pigmentation] Onset: 2 Resolved: 4 03-16-2023 Episodic Other upper respiratory infections (20 sources) Acute sinusitis; Translations: [Other acute sinusitis] Onset: 3 Resolved: 4 03-16-2023 Episodic Pneumonia (except that caused by tuberculosis or sexually transmitted disease) (20 sources) Community acquired pneumonia; Translations: [Pneumonia, unspecified [...] Test Name Value Interpretation Reference Range Facility TB MICROALB CREAT RATIO MARIELLE Lebron 01-27-2024 CREATININE URINE RANDOM 235.95 mg/dL 20.00 - 300.00 mg/dL [facility] MICROALBUMIN URINE RANDOM <1.3 NINF - 30.0 mg/dL [facility] ALL BASIC METABOLIC PANELon 01-24-2024 Anion gap [Moles/Vol] 11.6 mmol/L [facility] Calcium [Mass/Vol] 8.9 mg/dL 8.5 - 10. 1 mg/dL [facility] Chloride [Moles/Vol] 103 mmol/L 98 - 10 7 mmol/L [facility] CO2 [Moles/Vol] 31.6 mmol/L 21.0 - 32.0 mmol/L [facility] Creatinine [Mass/Vol] 1.17 mg/dL High 0.55 - 1.02 mg/dL [facility] GFR/1.73 sq M.predicted CKD-EPI (S/P/Bld) [Vol rate/Area] 57 Low >=60 mL/min/1.73m 2 [facility] Glucose [Mass/Vol] 118 mg/dL High 74 - 106 mg/dL [facility] Potassium [Moles/Vol] 4.2 mmol/L 3.5 - 5.1 mmol/L [facility] Sodium [Moles/Vol] 142 mmol/L 136 - 145 mmol/L [facility] TBH EGFR-NON AF MONGOLIAN 47 Low >=60 mL/min/1.73m 2 [facility] Urea nitrogen [Mass/Vol] 12 mg/dL 7.0 - 18.0 mg/dL [facility] Urea nitrogen/Creatinine [Mass ratio] 10.3 mg/mg [facility] ALL LIPID PROFILE (FASTING)o n 01-24-2024 CHOL HDL RATIO 2.9 [facility] Comment on above: 3.3 - 4.4 LOW RISK 4.4 - 7.1 AVERAGE RISK 7.1 - 11.0 MODERATE RISK >11.0 HIGH RISK Cholesterol [Mass/Vol] 152 mg/dL NINF - 200 mg/dL [facility] Cholesterol in HDL [Mass/Vol] 52 mg/dL 40 - 60 mg/dL [facility] Comment on above: > or =60 mg/dl - LOW CARDIOVASCULAR RISK <40 mg/dl - HIGH CARDIOVASCULAR RISK Magnesium [Mass/Vol] 70 mg/dL [facility] Comment on above: <100 mg/dl OPTIMAL 100-129 mg/dl NEAR OR ABOVE OPTIMAL 130-159 mg/dl BORDERLINE HIGH 160-189 mg/dl HIGH >190 mg/dl VERY HIGH Magnesium [Mass/Vol] 30.8 mg/dL [facility] Triglyceride [Mass/Vol] 154 mg/dL High NINF - 150 mg/dL [facility] No Panel Informationon 01-23 Interpretation and review of laboratory results Abnormal [facility] BLOOD GASES BTYon 07-08-2022 02 MODE ROOM AIR Normal [facility] Comment on above: Performed By: #### A BG ####[facility] [address] [place] [address]Dr. Phani El ALLENS TEST Positive Normal [facility] Comment on above: Performed By: #### A BG ####[facility] [address] [place] [address]Dr. Phani El Base excess Calc (Bld) [Moles/Vol] 1.4 mmol/L Normal -2.0-2.0 [facility] Comment on above: Performed By: #### A BG ####[facility] [address] [place], [place] [address]Dr. Phani El BIPAP PRESSURE Normal [facility] Comment on above: Performed By: #### A BG ####[facility] [address] [place], [place] [address]Dr. Phani El CPAP [facility] Comment on above: Performed By: #### A BG ####[facility] [address] [place], [place] [address]Dr. Phani El FIO2 Normal [facility] Comment on above: Performed By: #### A BG ####[facility] [address] [place], [place] [address]Dr. Phani El HCO3 (Bld) [Moles/Vol] 26.2 mmol/L Critically high 22.0-26.0 [facility] Comment on above: Performed By: #### A BG ####[facility] [address] [place], [place] [address]Dr. Phani El LPM Normal [facility] Comment on above: Performed By: #### A BG ####[facility] [address] [place], [place] [address]Dr. Phani El MINUTE VOLUME Normal [facility] Comment on above: Performed By: #### A BG ####[facility] [address] [place] [address]Dr. Phani El Oxygen (Bld) [Partial pressure] 56.1 mm[Hg] Critically low 80.0-100.0 [facility] Comment on above: Performed By: #### A BG ####[facility] [address] [place], [place] [address]Dr. Phani El Oxygen saturation in Blood 92.0 % Critically low 95.0-100.0 [facility] Comment on above: Performed By: #### A BG ####[facility] [address] [place], [place] [address]Dr. Phani El PCO2 42.6 mmHg Normal 35.0-45.0 [facility] Comment on above: Performed By: #### A BG ####[facility] [address] [place], [place] [address]Dr. Phani El PEEP [facility] Comment on above: Performed By: #### A BG ####[facility] [address] [place], [place] [address]Dr. Phani El pH (Bld) 7.398 [pH] Normal 7.350-7.450 [facility] Comment on above: Performed By: #### A BG ####[facility] [address] [place], [place] [address]Dr. Phani El PIP [facility] Comment on above: Performed By: #### A BG ####[facility] [address] [place], [place] [address]Dr. Phani El PS [facility] Comment on above: Performed By: #### A BG ####[facility] [address] [place], [place] [address]Dr. Phani El PUNCTURE SITE RR Normal [facility] Comment on above: Performed By: #### A BG ####[facility] [address] [place], [place] [address]Dr. Phani El RATE Normal [facility] Comment on above: Performed By: #### A BG ####[facility] [address] [place], [place] [address]It. Phani El VENT MODE Normal [facility] Comment on above: Performed By: #### A BG ####[facility] [address] [place], [place] [address]Fe. Phani El VT Normal [facility] Comment on above: Performed By: #### A BG ####[facility] [address] [place], [place] [address]Wp. Phani El ECHOCARDIO M/2D COMPLETEon 0 07-08-2022 ECHOCARDIO M/2D COMPLETE Patient: FRANKY SRINIVASAN I. Exam Date: 07/08/2022 : 1965 Gender:F Ordering : DR. MAGDALENA DOWNING . Admission #: [id number] Family : MEREDITH [place] SUPERINTENDENT METERS Order #: [id number] CLICK HERE TO VIEW EXAM ECHOCARDIOGRAM REPORT [...] Garcia M.D. on 07/08/2022 at 18:14 Normal [facility] CT LUNG CANCER SCREENINGon 0 05-29-2022 [...] MELISSA ROSENBERG Date: 2022-05-29 09:36 Normal [facility] CBC AUTO DIFFon 05-05-2022 BASO # 0.1 103/ul Normal 0.0-0.1 [facility] Comment on above: Performed By: #### C BC #### [facility] [address] [place] [address] Dr. Phani El Basophils/100 WBC (Bld) 0.8 % Normal 0.2-2.0 [facility] Comment on above: Performed By: #### C BC #### [facility] [address] [place] [address] Dr. Phani El EO # 0.1 103/ul Normal 0.0-0.7 [facility] Comment on above: Performed By: #### C BC #### [facility] [address] [place] [address] Dr. Phani El Eosinophils/100 WBC (Bld) 2.0 % Normal 0.9-7.0 [facility] Comment on above: Performed By: #### C BC #### [facility] [address] [place] [address] Dr. Phani El Erythrocyte distribution width (RBC) [Ratio] 14.0 % Normal 11.0-15.0 [facility] Comment on above: Performed By: #### C BC #### [facility] [address] [place] [address] Dr. Phani El Hematocrit (Bld) [Volume fraction] 48.7 % Critically high 36.0-48.0 [facility] Comment on above: Performed By: #### C BC #### [facility] [address] [place] [address] Dr. Phani El Hemoglobin (Bld) [Mass/Vol] 15.9 g/dL Normal 12.0-16.0 [facility] Comment on above: Performed By: #### C BC #### [facility] [address] [place] [address] Dr. Phani El IG # 0.05 10e3/ul Critically high 0.00-0.03 [facility] Comment on above: Performed By: #### C BC #### [facility] [address] [place] [address] Dr. Phani El IG % 0.8 % Critically high 0.0-0.5 [facility] Comment on above: Performed By: #### C BC #### [facility] [address] [place] [address] Dr. Phani El LYMPH # 1.9 103/ul Normal 1.2-3.8 [facility] Comment on above: Performed By: #### C BC #### [facility] [address] [place] [address] Dr. Phani El Lymphocytes/100 WBC (Bld) 30.1 % Normal 20.5-60.0 [facility] Comment on above: Performed By: #### C BC #### [facility] [address] [place] [address] Dr. Phani El MANUAL DIFF REQ NO Normal [facility] Comment on above: Performed By: #### C BC #### [facility] [address] [place] [address] Dr. Phani El MCH (RBC) [Entitic mass] 32.9 pg Normal 26.7-34.0 [facility] Comment on above: Performed By: #### C BC #### [facility] [address] [place] [address] Dr. Phani El MCHC (RBC) [Mass/Vol] 32.6 g/dL Normal 29.9-35.2 [facility] Comment on above: Performed By: #### C BC #### [facility] [address] [place] [address] Dr. Phani El MCV (RBC) [Entitic vol] 100.8 fL Critically high 81.0-99.0 [facility] Comment on above: Performed By: #### C BC #### [facility] [address] [place] [address] Dr. Phani El MONO # 0.5 103/ul Normal 0.3-0.8 [facility] Comment on above: Performed By: #### C BC #### [facility] [address] [place] [address] Dr. Phani El Monocytes/100 WBC (Bld) 7.2 % Normal 1.7-12.0 [facility] Comment on above: Performed By: #### C BC #### [facility] [address] [place] [address] Dr. Phani El NEUT # 3.8 103/ul Normal 1.4-6.5 [facility] Comment on above: Performed By: #### C BC #### [facility] [address] [address] [address] Phani El Neutrophils/100 WBC (Bld) 59.1 % Normal 43.0-75.0 [facility] Comment on above: Performed By: #### C BC #### [facility] [address] [address] [address] Phani El Platelet mean volume (Bld) [Entitic vol] 11.0 fL Normal 9.5-13.5 [facility] Comment on above: Performed By: #### C BC #### [facility] [address] [place] [address] Dr. Phani El PLT 167 103/ul Normal 150-450 [facility] Comment on above: Performed By: #### C BC #### [facility] [address] [place] [address] Dr. Phani El RBC 4.83 106/ul Normal 4.20-5.40 [facility] Comment on above: Performed By: #### C BC #### [facility] [address] [address] [address] Phani lE WBC 6.4 103/ul Normal 4.0-11.0 [facility] Comment on above: Performed By: #### C BC #### [facility] [address] [address] [address] Phani El GLYCOHEMOGLOBIN A1Con 2022 ADA RECOMMENDATION SEE BELOW Normal [facility] Comment on above: Result Comment: ADA RECOMMENDED LIMIT 4.0 - 6.0 ADA THERAPEUTIC TARGET < 7.0 ACTION SUGGESTED > 7.0 Performed By: #### A 1C ####[facility] [address] [address]Dr. Phani El Glucose [Mass/Vol] 114 mg/dL Normal [facility] Comment on above: Performed By: #### A 1C ####[facility] [address] [address]Dr. Phani El HbA1c (Bld) [Mass fraction] 5.6 % Normal 4.5-6.2 [facility] Comment on above: Performed By: #### A 1C ####[facility] [address] [place], [place] [address]EcDr. Phani El LIPID PROFILEon 05-05-2022 CHOL-HDL RATIO NORM SEE BELOW Normal [facility] Comment on above: Result Comment: 3.3 - 4.4 LOW RISK 4.4 - 7.1 AVERAGE RISK 7.1 - 11.0 MODERATE RISK >11.0 HIGH RISK Performed By: #### C MP, LIPID #### [facility] [address] [place], [place] [address] Dr. Phani El Cholesterol [Mass/Vol] 178 mg/dL Normal <=200 [facility] Comment on above: Performed By: #### C MP, LIPID #### [facility] [address] [place], [place] [address] Dr. Phani El Cholesterol in HDL [Mass/Vol] 54 mg/dL Normal 40-60 [facility] Comment on above: Performed By: #### C MP, LIPID #### [facility] [address] [place], [place] [address] Dr. Phani El Cholesterol in LDL [Mass/Vol] 86.6 mg/dL Normal [facility] Comment on above: Performed By: #### C MP, LIPID #### [facility] [address] [place], [place] [address] Dr. Phani El Cholesterol.total/Ch olesterol in HDL [Mass ratio] 3.3 {ratio} Normal [facility] Comment on above: Performed By: #### C MP, LIPID #### [facility] [address] [place], [place] [address] Dr. Phani El HDL NORMAL > or = 60 mg/dl - LO W CARDIOVASCULAR RISK <40 mg/dl - HIGH CARDIOVASCULAR RISK Normal [facility] Comment on above: Performed By: #### C MP, LIPID #### [facility] [address] [place], [place] [address] Dr. Phani El LDL CALC NORMAL SEE BELOW Normal [facility] Comment on above: Result Comment: <100 mg/dl OPTIMAL 100 - 129 mg/dl NEAR OR ABOVE OPTIMAL 130 - 159 mg/dl BORDERLINE HIGH 160 - 189 mg/dl HIGH >190 mg/dl VERY HIGH Performed By: #### C MP, LIPID #### [facility] [address] [address] [address] Phani El Triglyceride [Mass/Vol] 187 mg/dL Critically high <=150 [facility] Comment on above: Performed By: #### C MP, LIPID #### [facility] [address] [address] [address] Phani El VLDL CALC 37.4 mg/dL Normal [facility] Comment on above: Performed By: #### C MP, LIPID #### [facility] [address] [address] [address] Phani El PROF 14(COMP METB)on 023 Albumin [Mass/Vol] 3.6 g/dL Normal 3.4-5.0 [facility] Comment on above: Performed By: #### C MP, LIPID ####[facility] [address] [address]Dr. Phani El Albumin/Globulin [Mass ratio] 1.1 {ratio} Normal [facility] Comment on above: Performed By: #### C MP, LIPID ####[facility] [address] [address]Dr. Phani El ALP [Catalytic activity/Vol] 91 U/L Normal 46-116 [facility] Comment on above: Performed By: #### C MP, LIPID ####[facility] [address] [address]Dr. Phani El ALT [Catalytic activity/Vol] 34 U/L Normal 14-59 [facility] Comment on above: Performed By: #### C MP, LIPID ####[facility] [address] [address]DrCindy El Anion gap [Moles/Vol] 11.6 mmol/L Normal [facility] Comment on above: Performed By: #### C MP, LIPID ####[facility] [address] [address]Dr. Phani El AST [Catalytic activity/Vol] 18 U/L Normal 15-37 [facility] Comment on above: Performed By: #### C MP, LIPID ####[facility] [address] [address]Dr. Phani El Bilirubin [Mass/Vol] 0.6 mg/dL Normal 0.2-1.0 [facility] Comment on above: Performed By: #### C MP, LIPID ####[facility] [address] [address]Dr. Phani El Calcium [Mass/Vol] 9.2 mg/dL Normal 8.5-10.1 [facility] Comment on above: Performed By: #### C MP, LIPID ####[facility] [address] [address]Dr. Phani El Chloride [Moles/Vol] 106 mmol/L Normal 98-107 [facility] Comment on above: Performed By: #### C MP, LIPID ####[facility] [address] [address]Dr. Phani El CO2 [Moles/Vol] 32.3 mmol/L Critically high 21.0-32.0 [facility] Comment on above: Performed By: #### C MP, LIPID ####[facility] [address] [address]Dr. Phani El Creatinine [Mass/Vol] 1.04 mg/dL Critically high 0.55-1.02 [facility] Comment on above: Performed By: #### C MP, LIPID ####[facility] [address] [address]Dr. Phani El EGFR-AF MONGOLIAN >60 Normal >=60 [facility] Comment on above: Performed By: #### C MP, LIPID ####[facility] [address] [address]Dr. Phani El EGFR-NON AF MONGOLIAN 54 mL/min/1.73m2 Critically low >=60 [facility] Comment on above: Performed By: #### C MP, LIPID ####[facility] [address] [address]Dr. Phani El Globulin (S) [Mass/Vol] 3.4 g/dL Normal [facility] Comment on above: Performed By: #### C MP, LIPID ####[facility] [address] [address]Dr. Phani El Glucose [Mass/Vol] 124 mg/dL Critically high 74-106 [facility] Comment on above: Performed By: #### C MP, LIPID ####[facility] [address] [place], [place] [address]Dr. Phani El Potassium [Moles/Vol] 3.9 mmol/L Normal 3.5-5.1 [facility] Comment on above: Performed By: #### C MP, LIPID ####[facility] [address] [address]Dr. Phani El Protein [Mass/Vol] 7.0 g/dL Normal 6.4-8.2 [facility] Comment on above: Performed By: #### C MP, LIPID ####[facility] [address] [address]Dr. Phani El Sodium [Moles/Vol] 146 mmol/L Critically high 136-145 [facility] Comment on above: Performed By: #### C MP, LIPID ####[facility] [address] [address]Dr. Phani El Urea nitrogen [Mass/Vol] 14.0 mg/dL Normal 7.0-18.0 [facility] Comment on above: Performed By: #### C MP, LIPID ####[facility] [address] [address]Dr. Phani El Urea nitrogen/Creatinine [Mass ratio] 13.5 mg/mg Normal [facility] Comment on above: Performed By: #### C MP, LIPID ####[facility] [address] [address]Dr. Phani El VITAMIN B12on 05-05-2022 Cobalamin (Vitamin B12) [Mass/Vol] 321.0 pg/mL Normal 193.0-986.0 [facility] Comment on above: Performed By: #### V ITAD, VITB12 #### [facility] [address] [address] [address] Phani El VITAMIN D 25 OHon 05-05-2022 VIT D 25-OH 58.7 ng/mL Normal [facility] Comment on above: Performed By: #### V ITAD, VITB12 #### [facility] [address] [address] [address] Phani El VIT D RANGES SEE BELOW Normal [facility] Comment on above: Result Comment: <20 ng/mL Vit D deficient 20 - <30 ng/mL Vit D insufficient 30 - 100 ng/mL Vit D sufficient >100 ng/mL Potential Toxicity Performed By: #### V ITAD, VITB12 #### [facility] [address] [address] [address] Phani El XR CHEST 2 Von [...] LORI FROST Date: 2022-05-05 10:05 Normal [facility] Ambulatory Visit Summaryon 0 03-24-2022 Ambulatory [...] user Vitamin B12 deficiency Vitamin D deficiency Carlos Meredith [facility] General Surgery Office/Clini c Noteon [...] - Not Given Patient Refuses Normal [facility] Comment on above: Result Comment: Elec tronically Signed By: NABIL AMADOR, Bryson Steinberg\Date and Time Signed: 03/24/22 13:12 EST Reminderson 03-24-2022 Reminders - From: Kristine Harrison LPN To: N - Clinical; Sent: 03/24/2022 13:05:34 EST Show up: 01/26/2032 07:00:00 EST Subject: colonoscopy recall Due Date/Time: 02/26/2032 07:00:00 EST Reminder/Recall Patient is due for screening colonoscopy 02/26/2032. Normal [facility]on 02-10 SARS-CoV-2 (COVID-19) RNA MARISOL+probe Ql (Unsp spec) Detected Abnormal NOT DETECTED [facility] Comment on above: Result Comment: This test is not yet approved or cleared by the [place] FDA. When there are no FDA-approved or cleared tests available, and other criteria are met, FDA can make tests available under an emergency access mechanism called an Emergency Use Authorization (EUA). The EUA for this test is supported by the Gang Worker of Health and Human Service's (HHS's) declaration [...] used). Performed By: #### C VDTBH #### [facility] [address] [address] [address] Phani El INFLUENZA A AND B AGon 03-10 [facility] SEE BELOW Normal [facility] Comment on above: Result Comment: Nega tive for Flu A protein angiten. Infection due to Flu A cannot be ruled out. Flu A angiten in the sample may be below the detection limit of the test. Performed By: #### I NFLUAB ####[facility] [address] [address]Dr. Phani El INFLUBNEG SEE BELOW Normal [facility] Comment on above: Result Comment: Nega tive for Flu B protein antigen. Infection due to Flu B cannot be ruled out. Flu B antigen in the sample may be below the detection limit of the test. Performed By: #### I NFLUAB ####[facility] [address] [id number]. Phani El INFLUENZA A AG Negative Normal NEGATIVE SEE COMMENT [facility] Comment on above: Performed By: #### I NFLUAB ####[facility] [address] [place], [place] [address]Ck. Phani Nikko INFLUENZA B AG Negative Normal NEGATIVE SEE COMMENT [facility] Comment on above: Performed By: #### I NFLUAB ####[facility] [address] [place], [place] [address]Na. Phani El Covid-19 PCR ([facility])on 02-09 SARS-CoV-2 (COVID-19) RNA MARISOL+probe Ql (Unsp spec) Detected Abnormal NOT DETECTED [facility] Comment on above: Result Comment: This test is not yet approved or cleared by the [place] FDA. When there are no FDA-approved or cleared tests available, and other criteria are met, FDA can make tests available under an emergency access mechanism called an Emergency Use Authorization (EUA). The EUA for this test is supported by the Gang Worker of Health and Human Service's declaration that [...] used). Performed By: #### C VDTBH #### [facility] [address] [place], [place] [address] Dr. Phani El Pathology Noteon 02-27-2022 Pathology Note [id number] 0CD:127 Normal [facility] Outside Colonoscopyon 2022 Outside Colonoscopy [id number] 0CD:127 Normal [facility] Reminderson 02-26-2022 Reminders - From: Kristine Harrison LPN To: Kristine Harrison LPN; Sent: 02/26/2022 11:14:25 EST Show up: 05/18/2022 07:00:00 EDT Subject: Ambulatory Reminder Due Date/Time: 05/27/2022 07:00:00 EDT Reminder/Recall log in to extra lap top in [place] to keep account active Normal [facility] Lab Reportson 02-23-2022 Lab Reports [id number]#[id number] 0CD:127 Normal [facility] PCR [facility])on 02-08 SARS-CoV-2 (COVID-19) RNA MARISOL+probe Ql (Unsp spec) Not detected Normal NOT DETECTED [facility] Comment on above: Result Comment: This test is not yet approved or cleared by the [place] FDA. When there are no FDA-approved or cleared tests available, and other criteria are met, FDA can make tests available under an emergency access mechanism called an Emergency Use Authorization (EUA). The EUA for this test is supported by the [place] of Health and Human Service's (HHS's) declaration [...] consistent with SARS-CoV-2. Performed By: #### [facility] ####[facility] [address] [place], [place] [address]OyCindy El Pre-Certification Formon Pre-Certification Form [id number]. 00CD:127 Normal [facility] Consent for Procedure/Surger yon 02-05-2022 Consent for Procedure/Surgery [id number] 0CD:127 Normal [facility] Formson 02-05-2022 Forms [id number] 0CD:127 Normal [facility] Physician Referralon 022 Physician Referral [id number] 0CD:127 Normal [facility] MRI Knee w/o [...] by Jason Sanchez on 12/25/2021 1505 Normal [facility] MRI LSPINE WO CONon 12-05-19 MRI LSWICHITA WO CON EXAMINATION: MRI LSPINE WO CON [...] by: NADINE GRANT Date: 2021-12-04 17:54 Normal [facility] XR LSPINE 2_3 VIEWSon 2021 XR [...] by: NADINE GRANT Date: 2021-09-30 07:20 Normal [facility] MRI Knee w/o Lefton 07-30-19 22 [...] by Robby Diaz on 07/30/2021 1316 Normal [facility] Material Disposition Inspector Vital Signs Date Time Vital Sign Value Performing Clinician Nicolasa gardiner 08-31-2024 13:00-0400 Body mass index (BMI) [Ratio] 40.77 kg/m2 Nat Beatriz DO Work Phone: [facility] 08-31-2024 13:00-0400 Body weight 111.13 kg Nat Beatriz DO Work Phone: [facility] 08-31-2024 13:00-0400 Diastolic blood pressure 64 mm[Hg] Nat Beatriz DO Work Phone: [facility] 08-31-2024 13:00-0400 Heart rate 86 /min Nat Beatriz DO Work Phone: [facility] 08-31-2024 13:00-0400 SaO2% (BldA) [Mass fraction] 94 % Nat Beatriz DO Work Phone: [facility] 08-31-2024 13:00-0400 Systolic blood pressure 110 mm[Hg] Nat Beatriz DO Work Phone: [facility] 07-31-2024 10:09-0400 Body mass index (BMI) [Ratio] 40.9 kg/m2 Jaymie Alessandroz CERTIFIED DRIVER EXAMINER Work Phone: [facility] 07-31-2024 10:09-0400 Body temperature 98.1 [degF] Jaymie Aichholz CERTIFIED DRIVER EXAMINER Work Phone: [facility] 07-31-2024 10:09-0400 Body weight 111.49 kg Jaymie Aichholz CERTIFIED DRIVER EXAMINER Work Phone: [facility] 07-31-2024 10:09-0400 Diastolic blood pressure 70 mm[Hg] Jaymie Aichholz CERTIFIED DRIVER EXAMINER Work Phone: [facility] 07-31-2024 10:09-0400 Heart rate 80 /min Jaymie Aichholz CERTIFIED DRIVER EXAMINER Work Phone: [facility] 07-31-2024 10:09-0400 Respiratory rate 24 /min Jaymie Aichholz CERTIFIED DRIVER EXAMINER Work Phone: [facility] 07-31-2024 10:09-0400 SaO2% (BldA) [Mass fraction] 92 % Jaymie Alban CERTIFIED DRIVER EXAMINER Work Phone: [facility] 07-31-2024 10:09-0400 Systolic blood pressure 104 mm[Hg] Jaymie Alban CERTIFIED DRIVER EXAMINER Work Phone: [facility] 03-14-2024 14:53-0500 Body mass index (BMI) [Ratio] 40.7 kg/m2 Christopher Wong DO Work Phone: [facility] 03-14-2024 14:53-0500 Body weight 110.95 kg Christopher Wong DO Work Phone: [facility] 03-14-2024 14:53-0500 Diastolic blood pressure 82 mm[Hg] Christopher Wong DO Work Phone: [facility] 03-14-2024 14:53-0500 Heart rate 76 /min Christopher Wong DO Work Phone: [facility] 03-14-2024 14:53-0500 SaO2% (BldA) [Mass fraction] 94 % Christopher Wong DO Work Phone: [facility] 03-14-2024 14:53-0500 Systolic blood pressure 128 mm[Hg] Christopher Wong DO Work Phone: [facility] 02-10-2024 13:31-0500 Body height 165.1 cm Jaymie Alban CERTIFIED DRIVER EXAMINER Work Phone: [facility] 02-10-2024 13:31-0500 Body mass index (BMI) [Ratio] 40.94 kg/m2 Jaymie Alban CERTIFIED DRIVER EXAMINER Work Phone: [facility] 02-10-2024 13:31-0500 Body temperature 98.1 [degF] Jaymie Phoenix CERTIFIED DRIVER EXAMINER Work Phone: [facility] 02-10-2024 13:31-0500 Body weight 111.58 kg Jaymie Maddyhholz CERTIFIED DRIVER EXAMINER Work Phone: [facility] 02-10-2024 13:31-0500 Diastolic blood pressure 80 mm[Hg] Jaymie Aichholz CERTIFIED DRIVER EXAMINER Work Phone: [facility] 02-10-2024 13:31-0500 Heart rate 87 /min Jaymie Aichholz CERTIFIED DRIVER EXAMINER Work Phone: [facility] 02-10-2024 13:31-0500 Respiratory rate 18 /min Jaymie Aichholz CERTIFIED DRIVER EXAMINER Work Phone: [facility] 02-10-2024 13:31-0500 SaO2% (BldA) [Mass fraction] 94 % Jaymie Maddyhholz CERTIFIED DRIVER EXAMINER Work Phone: [facility] 02-10-2024 13:31-0500 Systolic blood pressure 110 mm[Hg] Jaymie Aichholz CERTIFIED DRIVER EXAMINER Work Phone: [facility] 01-03-2024 10:30-0500 Body height 165.1 cm Jaymie Aichholz CERTIFIED DRIVER EXAMINER Work Phone: [facility] 01-03-2024 10:30-0500 Body mass index (BMI) [Ratio] 40.6 kg/m2 Jaymie Aichholz CERTIFIED DRIVER EXAMINER Work Phone: [facility] 01-03-2024 10:30-0500 Body temperature 98.1 [degF] Jaymie Maddyhholz CERTIFIED DRIVER EXAMINER Work Phone: [facility] 01-03-2024 10:30-0500 Body weight 110.68 kg Jaymie Aichholz CERTIFIED DRIVER EXAMINER Work Phone: [facility] 01-03-2024 10:30-0500 Diastolic blood pressure 86 mm[Hg] Jaymie Aichholz CERTIFIED DRIVER EXAMINER Work Phone: [facility] 01-03-2024 10:30-0500 Heart rate 89 /min Jaymie Aichholz CERTIFIED DRIVER EXAMINER Work Phone: [facility] 01-03-2024 10:30-0500 Respiratory rate 19 /min Jaymie Francoisz CERTIFIED DRIVER EXAMINER Work Phone: [facility] 01-03-2024 10:30-0500 SaO2% (BldA) [Mass fraction] 91 % Jaymiebrianne Xavierholz CERTIFIED DRIVER EXAMINER Work Phone: [facility] 01-03-2024 10:30-0500 Systolic blood pressure 106 mm[Hg] Jaymie Ducholz CERTIFIED DRIVER EXAMINER Work Phone: [facility] 03-25-2023 13:13-0500 Body height 165.1 cm Jaymie Ducholz CERTIFIED DRIVER EXAMINER Work Phone: [facility] 03-25-2023 13:13-0500 Body mass index (BMI) [Ratio] 42.9 kg/m2 Jaymie Ducholz CERTIFIED DRIVER EXAMINER Work Phone: [facility] 03-25-2023 13:13-0500 Body temperature 97.5 [degF] Jaymiebrianne Xavierholz CERTIFIED DRIVER EXAMINER Work Phone: [facility] 03-25-2023 13:13-0500 Body weight 116.94 kg Jaymie Ducholz CERTIFIED DRIVER EXAMINER Work Phone: [facility] 03-25-2023 13:13-0500 Diastolic blood pressure 68 mm[Hg] Jaymie Ducholz CERTIFIED DRIVER EXAMINER Work Phone: [facility] 03-25-2023 13:13-0500 Heart rate 71 /min Jaymie Ducholz CERTIFIED DRIVER EXAMINER Work Phone: [facility] 03-25-2023 13:13-0500 Respiratory rate 20 /min Jaymie Ducholz CERTIFIED DRIVER EXAMINER Work Phone: [facility] 03-25-2023 13:13-0500 SaO2% (BldA) [Mass fraction] 95 % Jaymie Ducholz CERTIFIED DRIVER EXAMINER Work Phone: [facility] 03-25-2023 13:13-0500 Systolic blood pressure 108 mm[Hg] Jaymie Aichholz CERTIFIED DRIVER EXAMINER Work Phone: [facility] 03-16-2023 13:35-0500 Body height 165.1 cm Jaymiebrianne Castañedahholz CERTIFIED DRIVER EXAMINER Work Phone: [facility] 03-16-2023 13:35-0500 Body mass index (BMI) [Ratio] 41.6 kg/m2 Jaymie Aichholz CERTIFIED DRIVER EXAMINER Work Phone: [facility] 03-16-2023 13:35-0500 Body temperature 98.4 [degF] Jaymie Maddyhholz CERTIFIED DRIVER EXAMINER Work Phone: [facility] 03-16-2023 13:35-0500 Body weight 113.4 kg Jaymie Aichholz CERTIFIED DRIVER EXAMINER Work Phone: [facility] 03-16-2023 13:35-0500 Diastolic blood pressure 72 mm[Hg] Jaymie Maddyhholz CERTIFIED DRIVER EXAMINER Work Phone: [facility] 03-16-2023 13:35-0500 Heart rate 77 /min Jaymie Aichholz CERTIFIED DRIVER EXAMINER Work Phone: [facility] 03-16-2023 13:35-0500 Respiratory rate 18 /min Jaymie Aichholz CERTIFIED DRIVER EXAMINER Work Phone: [facility] 03-16-2023 13:35-0500 SaO2% (BldA) [Mass fraction] 95 % Jaymie Maddyhholz CERTIFIED DRIVER EXAMINER Work Phone: [facility] 03-16-2023 13:35-0500 Systolic blood pressure 112 mm[Hg] Jaymie Aichholz CERTIFIED DRIVER EXAMINER Work Phone: [facility] 02-03-2022 13:27-0500 Blood Pressure Location Bryson SAMPSON [facility] [place] 02-03-2022 13:27-0500 Diastolic blood pressure 80 mm[Hg] Bryson SAMPSON [facility] [place] 02-03-2022 13:27-0500 Heart rate 72 /min Bryson SAMPSON [facility] [place] 02-03-2022 13:27-0500 Respiratory rate 16 /min Bryson RACHELPiper [facility] [place] 02-03-2022 13:050 Systolic blood pressure 126 mm[Hg] Bryson SAMPSON [facility] [place] Encounters Encounter Date Encounter Type Care Provider Facility Start: 08-31-2024 End: 08-31-2024 Bamboo flowsheet Nat K Beatriz DO Work Phone: [facility] Start: 08-31-2024 End: 08-31-2024 Bamboo flowsheet Nat K Beatriz DO Work Phone: [facility] Start: 08-31-2024 End: 08-31-2024 ambulatory NAT K BEATRIZ Not Available Start: 08-31-2024 End: 08-31-2024 Office outpatient new 45 minutes Nat K Beatriz DO Work Phone: [facility] Comment on above: WINSOME (obstructive sle ep apnea) (Primary Dx); Cigarette smoker Start: 08-29-2024 End: 08-29-2024 ambulatory Alphonse Damian Facility:[facility] Comment on above: Acute back pain with sciatica, unspecified laterality (Primary Dx) Start: 08-28-2024 End: 08-28-2024 Orders Only Jaymie Phoenix CERTIFIED DRIVER EXAMINER Work Phone: [facility] Comment on above: Acute back pain with sciatica, unspecified laterality (Primary Dx) Start: 08-05-2024 End: 08-06-2024 Refill Jaymie Phoenix CERTIFIED DRIVER EXAMINER Work Phone: [facility] Comment on above: Tobacco dependence Start: 07-31-2024 End: 07-31-2024 Patient encounter procedure Jaymie Phoenix CERTIFIED DRIVER EXAMINER Work Phone: [facility] Comment on above: Encounter for subseq uent annual wellness visit (AWV) in Medicare patient (Primary Dx); Chronic kidney disease, stage 3a ([facility]-HCC); WINSOME (obstructive sleep apnea); COPD mixed type (HCC); Gastroesophageal reflux disease, unspecified whether esophagitis present; Bilateral lower extremity edema; Anxiety and depression ; Tobacco dependence; Mixed hyperlipidemia ; Fibromyalgia; Environmental and seasonal allergies; Gastro-esophageal reflux disease without esophagitis; Personal history of other diseases of the nervous system and sense organs; Screening for lung cancer Start: 07-31-2024 End: 07-31-2024 ambulatory JAYMIE AICHHOLZ Not Available Start: 07-05-2024 End: 07-05-2024 Refill Jaymie Aichholz CERTIFIED DRIVER EXAMINER Work Phone: [facility] Comment on above: Fibromyalgia Start: 06-26-2024 End: 06-26-2024 Refill Jaymie Aichholz CERTIFIED DRIVER EXAMINER Work Phone: [facility] Comment on above: Tobacco dependence ( Primary Dx) Start: 06-14-2024 End: 06-14-2024 Refill Jaymie Aichholz CERTIFIED DRIVER EXAMINER Work Phone: [facility] Comment on above: Mixed hyperlipidemia (CMS/HCC) Start: 05-09-2024 End: 05-09-2024 Refill Jaymie Aichholz CERTIFIED DRIVER EXAMINER Work Phone: [facility] Comment on above: Fibromyalgia Start: 04-19-2024 End: 04-19-2024 Refill Jaymie Aichholz CERTIFIED DRIVER EXAMINER Work Phone: [facility] Comment on above: Environmental and se asonal allergies (Primary Dx); COPD mixed type (CMS/HCC) Start: 04-08-2024 End: 04-10-2024 Refill Jaymie Aichholz CERTIFIED DRIVER EXAMINER Work Phone: [facility] Comment on [...] flowsheet Saumya Back DO Work Phone: [facility] Start: 02-10-2024 End: 02-10-2024 Bamboo flowsheet Jaymie Phoenix CERTIFIED DRIVER EXAMINER Work Phone: [facility] Start: 02-10-2024 End: 02-10-2024 Bamboo flowsheet Jaymie Phoenix CERTIFIED DRIVER EXAMINER Work Phone: [facility] Start: 02-10-2024 End: 02-10-2024 ambulatory JAYMIE PHOENIX Not Available Start: 02-10-2024 End: 02-10-2024 Office outpatient visit 25 minutes Jaymie Phoenix CERTIFIED DRIVER EXAMINER Work Phone: [facility] Comment on above: COPD with acute exac erbation ([facility]) (Primary Dx); Morbid (severe) obesity due to excess calories ([facility]); Body mass index (BMI) 40.0-44.9, adult ([facility]); WINSOME (obstructive sleep apnea); COPD mixed type ([facility]); Gastroesophageal reflux disease, unspecified whether esophagitis present; Tobacco dependence; Gastro-esophageal reflux disease without esophagitis; Tremor Start: 02-03-2024 End: 02-06-2024 Refill Jaymie Phoenix CERTIFIED DRIVER EXAMINER Work Phone: [facility] Comment on above: Fibromyalgia Start: 01-27-2024 End: 01-27-2024 Clinisync Result Encounter Jaymie Phoenix CERTIFIED DRIVER EXAMINER Work Phone: [facility] Unsolicited Start: 01-27-2024 End: 01-27-2024 Clinisync Result Encounter Jaymie Phoenix CERTIFIED DRIVER EXAMINER Work Phone: [facility] Unsolicited Start: 01-24-2024 End: 01-24-2024 Clinisync Result Encounter Jaymie Phoenix CERTIFIED DRIVER EXAMINER Work Phone: [facility] Unsolicited Start: 01-24-2024 End: 01-24-2024 Clinisync Result Encounter Jaymie Xavierashley CERTIFIED DRIVER EXAMINER Work Phone: [facility] Unsolicited Start: 01-03-2024 End: 01-03-2024 Bamboo flowsheet Jaymie Maddyascencionashley CERTIFIED DRIVER EXAMINER Work Phone: [facility] Start: 01-03-2024 End: 01-03-2024 Bamboo flowsheet Jaymie Xavierashley CERTIFIED DRIVER EXAMINER Work Phone: [facility] Start: 01-03-2024 End: 01-03-2024 Office outpatient visit 25 minutes Jaymie Xavierashley CERTIFIED DRIVER EXAMINER Work Phone: [facility] Comment on above: WINSOME (obstructive sle ep apnea) (Primary Dx); COPD mixed type ([facility]); Primary hypertension ([facility]); Fibromyalgia; BMI 40.0-44.9, adult ([facility]); Tobacco dependence; Mixed hyperlipidemia ([facility]); Vitamin D deficiency; Vitamin B12 deficiency; COPD with acute exacerbation ([facility]) Start: 01-03-2024 End: 01-03-2024 ambulatory JAYMIE PHOENIX Not Available Start: 12-31-2023 End: 12-31-2023 Refill Jaymie Maddyascencionashley CERTIFIED DRIVER EXAMINER Work Phone: [facility] Start: 12-30-2023 End: 12-31-2023 Refill Jaymie Xavierashley CERTIFIED DRIVER EXAMINER Work Phone: [facility] Comment on [...] Unsolicited Start: 11-24-2023 End: 11-24-2023 Refill Jaymie Phoenix CERTIFIED DRIVER EXAMINER Work Phone: [facility] Comment on above: Mixed hyperlipidemia (CMS/HCC) Start: 10-26-2023 End: 10-26-2023 Refill Jaymie Phoenix CERTIFIED DRIVER EXAMINER Work Phone: [facility] Comment on above: Fibromyalgia; Gastro-esophageal reflux disease without esophagitis Start: 06-03-2023 Patient encounter procedure Jaymie Phoenix NP Work Phone: [facility] Start: 03-25-2023 Bamboo flowsheet Jaymie Phoenix CERTIFIED DRIVER EXAMINER Work Phone: [facility] Start: 03-25-2023 Bamboo flowsheet Jaymie Phoenix CERTIFIED DRIVER EXAMINER Work Phone: [facility] Start: 03-25-2023 End: 03-25-2023 Office outpatient visit 25 minutes Jaymie Phoenix CERTIFIED DRIVER EXAMINER Work Phone: [facility] Comment on above: Edema of right lower extremity (Primary Dx); BMI 40.0-44.9, adult (CMS/HCC); Shortness of breath; COPD mixed type (CMS/HCC); Primary hypertension (CMS/HCC); Bilateral lower extremity edema Start: 03-16-2023 End: 03-16-2023 Office outpatient visit 25 minutes Jaymie Phoenix CERTIFIED DRIVER EXAMINER Work Phone: [facility] Comment on above: COPD mixed type (CMS /HCC) (Primary Dx); Tobacco dependence; BMI 40.0-44.9, adult (CMS/HCC); Body mass index [BMI] 40.0-44.9, adult (Z68.41); Primary hypertension (CMS/HCC); Bilateral lower extremity edema Start: 07-08-2022 ambulatory SUPER[employer]ENT [employer] JAYMIE PHOENIX Facil ity:[facility]1 Start: 05-29-2022 End: 05-30-2022 ambulatory SUPER[employer]ENT [employer] JAYMIEBrianne PHOENIX Facility:[facility] Start: 05-05-2022 End: 05-06-2022 ambulatory MEREDITH XAVIERMAURICEHomer Facility:[facility] Start: 04-30-2022 End: 05-01-[address] JIM ALLAN . Facility:[facility] Start: 03-31-2022 End: 03-31-[address] JIM ALLAN . Facility:[facility] Start: 03-27-[address] JIM ALLAN . Faci lity:H1 Start: 03-24-2022 End: 03-25-2022 ambulatory Bryson SAMPSON Facility:[facility] Start: 03-17-2022 ambulatory Bryson SAMPSNO Facility : [facility] Start: 03-10-2022 End: 03-10-2022 ambulatory MEREDITH XAIVERMAURICEHomer Facility:[facility]1 Start: 03-02-2022 Encounter for preprocedural laboratory examination DR JIM ALLAN . [facility] Start: 02-28-2022 End: 03-01-2022 Encounter for preprocedural laboratory examination MEREDITH PHOENIX Facility:[facility] Start: 02-28-2022 End: 03-01-2022 ambulatory MEREDITH PHOENIX Facility:[facility] Start: 02-25-2022 End: 02-26-2022 ambulatory Bryson SAMPSON Facility:[id number] Start: 02-21-2022 End: 02-22-[address] BRYSON SAMPSON . Facility: Start: 02-06-2022 End: 02-07-2022 ambulatory JENNY THORNE . Facility:[facility] Start: 02-03-2022 End: 02-04-2022 ambulatory Tracy Piper Castañedaascencionashley Facility:[facility] Start: 02-03-2022 End: 02-03-2022 Patient encounter procedure Bryson SAMPSON [facility] Start: 01-13-2022 End: 01-13-[address] JIM ALLAN . Facility:[facility] Start: 01-08-2022 End: 01-09-[address] JIM ALLAN . Facility:[facility] Start: 01-06-2022 ambulatory Bryson SAMPSON Facility :[facility] Start: 12-23-2021 End: 12-23-[address] JIM ALLAN . Facility:[facility]1 Start: 12-09-2021 End: 12-10-[address] JIM ALLAN . Facility:[facility] Start: 12-04-2021 End: 12-05-2021 ambulatory MEREDITH PHOENIX Facility:[facility] Start: 12-03-2021 End: 12-03-2021 ambulatory GLENROY BOWERS . Facility:[facility]1 Start: 10-10-2021 End: 10-30-2021 ambulatory MR DEMETRIUS MENDEZ . Facility:[facility]1 Start: 09-29-2021 End: 09-30-2021 ambulatory MEREDITH JAYMIE ALBAN Facility:[facility] Start: 09-20-2021 End: 09-20-2021 ambulatory GLENROY BOWERS . Facility: Procedures Date Procedure Procedure Detail Performing Clinician Start: 02-10-2024 Mammography Jaymie kohler CERTIFIED DRIVER EXAMINER Work Phone: Start: 01-27-2024 [facility] MICROALB CREAT R ATIO RANDOM Jaymie Phoenix CERTIFIED DRIVER EXAMINER Work Phone: Start: 01-24-2024 ALL BASIC METABOLIC PANEL Jaymie Phoenix CERTIFIED DRIVER EXAMINER Work Phone: Start: 01-24-2024 ALL LIPID PROFILE (FASTING) Jaymie Phoenix CERTIFIED DRIVER EXAMINER Work Phone: Start: 12-25-2023 BLOOD CULTURE 2 Generic External Data Provider Start: 12-25-2023 BLOOD CULTURE 1 Generic External Data Provider Start: 12-24-2023 BLOOD CULTURE 2 Generic External Data Provider Start: 12-24-2023 BLOOD CULTURE 1 Generic External Data Provider Start: 03-25-2023 Mammography Jaymie kohler CERTIFIED DRIVER EXAMINER Work Phone: Start: 02-25-2022 Colonoscopy Jaymie kohler CERTIFIED DRIVER EXAMINER Work Phone: section Bryson Saldaña Ligation of fallopian tube Leslie SAMPSON Repair of meniscus Bryson HOWELL Total abdominal hysterectomy with bilateral salpingo-oophorectomy Bryson NABIL Plan of Treatment Date Care Activity Detail Author Start: 02-26-2032 Screening for malign ant neoplasm of colon [facility] Start: 08-02-2025 End: 08-02-2025 Patient encounter procedure 08/02/2025 10:30 AM EDT Office Visit [facility] [address] [place] [phone] Jaymie Phoenix NP [address] [place] [phone] [facility] Start: 07-31-2025 Medicare Annual Well ness (AWV) Medicare Annual Wellness (AWV) [facility] Start: 02-09-2025 Screening for malign ant neoplasm of breast Mammogram [facility] Start: 12-26-2024 Screening for malign ant neoplasm of colon FIT-DNA [facility] Start: 12-07-2024 End: 12-07-2024 Patient encounter procedure 12/07/2024 1:45 PM EDT Office Visit [facility] [address] [place] [phone] Nat Henderson, [address] [place] [address] [facility] Start: 10-09-2024 Influenza vaccination N [facility] Start: 09-27-2024 End: 09-27-2024 Patient encounter procedure 09/27/2024 8:40 AM EDT Office Visit [facility] [address] [place] [phone] Jaymie Phoenix, NILE [address] [place] [phone] [facility] Start: 08-31-2024 End: 08-31-2024 Patient encounter procedure 08/31/2024 1:00 PM EDT Consult [facility] [address] [place] [phone] Nat Henderson, [address] [place] [address] [facility] Start: 07-31-2024 End: 07-31-2025 CT Chest for screening WO contrast CT lung screening low dose Imaging Routine Tobacco dependence Expected: 07/31/2024, Expires: 07/31/2025 [facility] Work Phone: Comment on above: Expected: 07/31/2024 , Expires: 07/31/2025 Start: 07-31-2024 End: 07-31-2024 Patient encounter procedure 07/31/2024 10:30 AM EDT Office Visit [facility] [address] [place] [phone] Jaymie Phoenix NP [address] [place] [address] [facility] Start: 06-14-2024 Influenza vaccination Influenza Vacc ine (#1) [facility] Comment on above: Postponed from 10/09 (Patient Refused) Start: 06-05-2024 End: 06-05-2024 Patient encounter procedure 06/05/2024 3:40 PM EDT Office Visit [facility] [address] [place] [phone] Sherice Tristan NP [address] [place] [address] [facility] Start: 06-02-2024 Medicare Annual Well ness (AWV) Medicare Annual Wellness (AWV) [facility] Start: 05-10-2024 End: 05-10-2024 Patient encounter procedure 05/10/2024 2:00 PM EDT Office Visit [facility] [address] [place] [phone] Jaymie Phoenix, CERTIFIED DRIVER EXAMINER [address] [place] [address] [facility] Start: 04-06-2024 Influenza vaccination Influenza Vacc ine (#1) [facility] Comment on above: Postponed from 10/09 (Patient Refused) Start: 03-25-2024 Screening for malign ant neoplasm of breast Mammogram [facility] Start: 03-14-2024 End: 03-14-2024 Patient encounter procedure 03/14/2024 3:00 PM EST Office Visit [facility] [address] [place] [phone] Saumya Back DO [address] [place] [address] Tremor [facility] Comment on above: Tremor Start: 01-26-2024 End: 01-26-2024 Patient encounter procedure 01/26/2024 10:30 AM EST Office Visit [facility] [address] [place] [address] Jaymie Phoenix, NILE [address] [place] [address] [facility] Start: 01-03-2024 End: 01-02-2025 25-hydroxyvitamin D3 [Mass/volume] in Serum or Plasma Vitamin D 25 hydroxy Lab Routine Vitamin D deficiency Expected: 01/03/2024 (Approximate), Expires: 01/02/2025 [facility] Comment on above: Expected: 01/03/2024 (Approximate), Expires: 01/02/2025 Start: 01-03-2024 End: 01-02-2025 Basic metabolic 1998 panel - Serum or Plasma Basic metabolic panel Lab Routine Primary hypertension (CMS/HCC) Expected: 01/03/2024 (Approximate), Expires: 01/02/2025 [facility] Comment on above: Expected: 01/03/2024 (Approximate), Expires: 01/02/2025 Start: 01-03-2024 End: 01-02-2025 Cobalamin (Vitamin B12) [Mass/volume] in Serum or Plasma Vitamin B12 Lab Routine Vitamin B12 deficiency Expected: 01/03/2024 (Approximate), Expires: 01/02/2025 [facility] Comment on above: Expected: 01/03/2024 (Approximate), Expires: 01/02/2025 Start: 01-03-2024 End: 01-02-2025 Lipid 1996 panel - Serum or Plasma Lipid panel Lab Routine Mixed hyperlipidemia (CMS/HCC) Expected: 01/03/2024 (Approximate), Expires: 01/02/2025 [facility] Comment on above: Expected: 01/03/2024 (Approximate), Expires: 01/02/2025 Start: 01-03-2024 End: 01-02-2025 Microalbumin/Creatinine panel in random Urine Microalbumin / creatinine, urine ratio Lab Routine Primary hypertension (CMS/HCC) Tobacco dependence Expected: 01/03/2024 (Approximate), Expires: 01/02/2025 [facility] Work Phone: Comment on above: Expected: 01/03/2024 (Approximate), Expires: 01/02/2025 Start: 01-03-2024 End: 01-02-2025 Urinalysis complete panel - Urine Urinalysis with reflex microscopic (clean catch) Lab Routine Primary hypertension (CMS/HCC) Tobacco dependence Expected: 01/03/2024 (Approximate), Expires: 01/02/2025 [facility] Comment on above: Expected: 01/03/2024 (Approximate), Expires: 01/02/2025 Start: 01-03-2024 End: 01-03-2024 Patient encounter procedure [facility] Comment on above: WINSOME (obstructive sle ep apnea) (Primary Dx); COPD mixed type ([facility]); Primary hypertension (CMS/HCC); Fibromyalgia; BMI 40.0-44.9, adult (CMS/HCC); Tobacco dependence; Mixed hyperlipidemia (CMS/HCC); Vitamin D deficiency; Vitamin B12 deficiency Start: 10-10-2023 Influenza vaccination Influenza Vacc ine (#1) [facility] Start: 08-08-2023 Influenza vaccination Influenza Vacc ine (#1) [facility] Comment on above: Postponed from 10/09 (Patient Refused) Start: 04-06-2023 End: 04-06-2023 Patient encounter procedure 04/06/2023 1:40 PM EST Office Visit [facility] [address] [place] [address] Jaymie Phoenix, CERTIFIED DRIVER EXAMINER [address] [place] [address] [facility] Start: 03-25-2023 End: 03-25-2024 CBC W Auto Differential panel - Blood CBC and differential Lab Routine Edema of right lower extremity Expected: 03/25/2023 (Approximate), Expires: 03/25/2024 [facility] Comment on above: Expected: 03/25/2023 (Approximate), Expires: 03/25/2024 Start: 03-25-2023 End: 03-25-2024 Comprehensive metabolic 2000 panel - Serum or Plasma Comprehensive metabolic panel Lab Routine Edema of right lower extremity Expected: 03/25/2023 (Approximate), Expires: 03/25/2024 [facility] Comment on above: Expected: 03/25/2023 (Approximate), Expires: 03/25/2024 Start: 03-25-2023 End: 03-25-2024 Fibrin D-dimer FEU [Mass/volume] in Platelet poor plasma D-dimer, quantitative Lab Routine Edema of right lower extremity Expected: 03/25/2023 (Approximate), Expires: 03/25/2024 [facility] Comment on above: Expected: 03/25/2023 (Approximate), Expires: 03/25/2024 Start: 03-25-2023 End: 03-25-2024 US.doppler Lower extremity vein - right Vascular US lower extremity venous duplex right Imaging STAT Edema of right lower extremity Expected: 03/25/2023, Expires: 03/25/2024 [facility] Work Phone: Comment on above: Expected: 03/25/2023 , Expires: 03/25/2024 Start: 03-25-2023 End: 03-25-2024 XR Chest 2 Views XR chest 2 views Imaging Routine Edema of right lower extremity Shortness of breath Expected: 03/25/2023, Expires: 03/25/2024 [facility] Comment on above: Expected: 03/25/2023 , Expires: 03/25/2024 Start: 08-16-1993 Screening for malign ant neoplasm of cervix HPV/Cotest [facility] Start: 08-16-1984 Screening for malign ant neoplasm of cervix Pap Smear [facility] Start: 1963 Medicare Annual Well ness (AWV) Medicare Annual Wellness (AWV) [facility] Start: 1963 Screening for malign ant neoplasm of colon [facility] Start: 1963 Screening for malign ant neoplasm of lung Lung Cancer Screening Shared Decision Making [facility] BLOOD CULTURE 1 BLOOD CULTURE 1 Lab Routine 12/24/2023 1:45 PM EST [facility] BLOOD CULTURE 1 BLOOD CULTURE 1 Lab Routine 12/25/2023 9:09 PM EST [facility] BLOOD CULTURE 2 BLOOD CULTURE 2 Lab Routine 12/24/2023 1:51 PM EST [facility] BLOOD CULTURE 2 BLOOD CULTURE 2 Lab Routine 12/25/2023 9:20 PM EST [facility] Immunizations Immunization Date Immunization Notes Care Provider Fa [facility] 08-29-2023 tetanus toxoid, reduced diphtheria toxoid, and acellular pertussis vaccine, adsorbed Jaymie Phoenix CERTIFIED DRIVER EXAMINER Work Phone: [facility] 06-14-2020 Kelly SARS-CoV-2 Jaymie ramirez CERTIFIED DRIVER EXAMINER Work Phone: [facility] NEGATED: Highlighted row has not occurred!02-03-2022 influenza virus vaccine, unspecified formulation Bryson SAMPSON [facility] [place] Payers Date Payer Category Payer Self-pay 2021 Medicaid [employer] MED[employer] A DVANTAGE [id number] 2015 Medicare [id number] 1963 Unknown [id number] 2.16.840.1.600586.3.579.2. 72 1963 Unknown [id number] 2.16.840.1.330241.3.579.2. 72 1963 Unknown [id number] 2.16.840.1.653585.3.579.2. 72 1963 Unknown [id number] 2.16.840.1.259158.3.579.2. 72 1963 Unknown [id number] 2.16.840.1.914626.3.579.2. 72 1963 Unknown [id number] 2.16.840.1.471694.3.579.2. 59 1963 Unknown [id number] 2.16.840.1.619658.3.579.2. 1963 Unknown [id number] 2.16.840.1.486260.3.579.2. 59 1963 Unknown [id number] 2.16.840.1.421336.3.579.2. 59 1963 Unknown [id number] 2.16.840.1.483411.3.579.2. 59 1963 Unknown [id number] 2.16.840.1.479845.3.579.2. 59 1963 Unknown [id number] 2.16.840.1.193324.3.579.2. 59 1963 Unknown [id number] 2.16.840.1.100094.3.579.2. 59 1963 Unknown [id number] 2.16.840.1.889817.3.579.2. 593 1963 Unknown [id number] 2.16.840.1.304038.3.579.2. 59 1963 Unknown [id number] 2.16.840.1.901187.3.579.2. 59 1963 Unknown [id number] 2.16.840.1.649066.3.579.2. 59 1963 Unknown [id number] 2.16.840.1.109233.3.579.2. 59 1963 Unknown [id number] 2.16.840.1.881562.3.579.2 59 1963 Unknown [id number] 2.16.840.1.453069.3.579.2. 59 1963 Unknown [id number] 2.16.840.1.108962.3.579.2 59 1963 Unknown [id number] 2.16.840.1.593946.3.579.2 59 1963 Unknown [id number] 2.16.840.1.480644.3.579.2 59 1963 Unknown [id number] 2.16.840.1.580209.3.579.2. 59 1963 Unknown [id number] 2.16.840.1.587874.3.579.2 59 1963 Unknown [id number] 2.16.840.1.396539.3.579.2. 59 1963 Unknown [id number] 2.16.840.1.201584.3.579.2 59 1963 Unknown [id number] 2.16.840.1.981098.3.579.2. 1259 1963 Unknown [id number] 2.16.840.1.576539.3.579.2. 1259 1963 Unknown [id number] 2.16.840.1.617018.3.579.2. 1259 1963 Unknown [id number] 2.16.840.1.183833.3.579.2. 1259 1963 Unknown [id number] 2.16.840.1.189317.3.579.2. 1259 1959 Private Health Insurance [id number] Unknown [id number] 2.16.840.1.033903.3.579.2. 531 Social History Date Type Detail Facility Start: 02-03-2022 Tobacco smoking status Heavy t obacco smoker (finding) [facility] [place] Tobacco smoking status Never [facility] Start: 03-16-2023 End: 05-13-2023 Sex Assigned At Female [facility] Start: 01-26-2023 End: 09-01-2024 Tobacco smoking status [facility] Smokes tobacco daily [facility] History of tobacco use Cigarette Smoker [facility] Start: 01-26-2023 End: 05-13-2023 Cigarettes smoked current (pack per day) - Reported 1 [facility] Start: 01-26-2023 End: 09-01-2024 Tobacco use and exposure Smokeless tobacco non-user [facility] Start: 03-16-2023 End: 07-31-2024 Alcohol intake Ex-drinker (finding) [facility] Start: [...] housing, medical care, and heating Somewhat hard [facility] Do you feel stress - tense, restless, nervous, or anxious, or unable to sleep at night because your mind is troubled all the time - these days [OSQ] Only a little [facility] (I/We) worried wheth er (my/our) food would run out before (I/we) got money to buy more. Sometimes true [facility] The food that (I/we) bought just didn't last, and (I/we) didn't have money to get more. Often true [facility] In the past 12 month s, was there a time when you were not able to pay the mortgage or rent on time? Yes [facility] Functional Status Date Assessment Result Facility 07-31-2024 Patient Health [facility] ionnaire 2 item (PHQ-2) [Reported] [facility] 07-31-2024 PHQ-9 quick depressi on assessment panel [Reported.PHQ] [facility] 02-03-2022 Functional Status N/A [facility] Escobar [facility] Clinical Notes 12-09-2021 to 08-31-2024 Nat Henderson DO - 08/31/2024 1:00 PM Maddi Phoenix NP - 07/31/2024 11:24 AM Maddi Phoenix NP - 07/31/2024 11:22 AM Maddi Phoenix NP - 07/31/2024 11:22 AM EDTPatient Instructions Note Date & Type Note Facility 08-31-2024 History of Presen t illness Narrative Images from the original note were not included. Franky Srinivasan presents today for evaluation in regards to COPD. She is accompanied by her at today's office visit. She was referred by her primary care provider. She states that she has been told she has had COPD for a few years. Few years ago she was also diagnosed with a pneumonia. She did have PFTs in 2022. Her last x-ray was in December 2023. She is currently using albuterol on as needed basis. She does have a prescription for Breztri, but does not use this very often. She states she only uses this when she notes that she has some wheezing. Her states that she does wheeze some at night when they are watching TV. The patient denies any current complaints of shortness breath at rest or with exertion. She had initially stated she was unsure why she was referred here for evaluation. She does give a prior history of sleep apnea. She has not use her CPAP machine for a few years. She does not always feel well rested upon wakening in the morning. She does have excessive daytime sleepiness. Her also does state that she does have snoring, but no witnessed apneas. She denies any current complaints of chest pain, palpitations, fevers, chills, sweats, or recent unintentional weight changes. Allergies Allergen Reactions Penicillins Hives, Shortness of breath and Swelling Shortness of breath Prednisone Itching Itchy eyes and shortness of breath Current Outpatient Medications Medication Sig Dispense Refill Varenicline Tartrate, Starter, 0.5 MG X 11 & 1 MG X 42 tablet therapy pack Take 1 tablet by mouth Daily 0.5mg once a day for 3 days, then 0.5mg twice a day for 4 days, then 1mg twice a day 53 each 0 albuterol (2.5 MG/3ML) 0.083% nebulizer solution Take 2.5 mg by nebulization every 6 (six) hours if needed for shortness of breath or wheezing albuterol HFA 90 mcg/act inhaler Inhale 2 puffs every 6 (six) hours if needed for shortness of breath or wheezing 18 g 0 amitriptyline (Elavil) 100 MG tablet Take 0.5 tablets (50 mg) by mouth at bedtime 45 tablet 1 atorvastatin (Lipitor) 20 MG tablet Take 1 tablet (20 mg) by mouth at bedtime 90 tablet 1 Qucotdi-Tnsqbumjhmw-Ddmfghovcd (Breztri Aerosphere) 160-9-4.8 MCG/ACT aerosol Inhale 2 puffs in the morning and 2 puffs before bedtime. Inhale 2 puffs in the morning and 2 puffs before bedtime. 32 g 1 bumetanide (Bumex) 0.5 MG tablet Take M W only 27 tablet 1 cetirizine (ZyrTEC) 10 MG tablet Take 1 tablet (10 mg) by mouth Daily 90 tablet 1 cholecalciferol (Vitamin D-3) 125 MCG (5000 UT) tablet as directed Orally HYDROcodone-acetaminophen ([place]) 5-325 MG tablet Take 1 tablet by mouth every 12 (twelve) hours if needed for severe pain for up to 10 days 20 tablet 0 ibuprofen 800 MG tablet Take 800 mg by mouth every 8 (eight) hours if needed ipratropium-albuterol (Duo-Neb) 0.5-2.5 mg/3 mL nebulizer solution Take 3 mL by nebulization every 6 (six) hours if needed for wheezing or shortness of breath lamoTRIgine (LaMICtal) 100 MG tablet Take 100 mg by mouth Daily lamoTRIgine (LaMICtal) 200 MG tablet Take 200 mg by mouth at bedtime meloxicam (Mobic) 15 MG tablet Take 15 mg by mouth Daily montelukast (Singulair) 10 MG tablet Take 1 tablet (10 mg) by mouth at bedtime 90 tablet 1 omeprazole (PriLOSEC) [address] capsule Take 1 capsule (40 mg) by mouth Daily 90 capsule 1 prazosin (Minipress) 1 MG capsule Take 1 mg by mouth at bedtime prazosin (Minipress) 2 MG capsule Take 2 mg by mouth at bedtime pregabalin (Lyrica) 100 MG capsule Take 1 capsule (100 mg) by mouth in the morning and 1 capsule (100 mg) before bedtime. 60 capsule 2 propranolol (Inderal) 40 MG tablet Take 1 tablet (40 mg) by mouth in the morning and 1 tablet (40 mg) before bedtime. 180 tablet 1 QUEtiapine (SEROquel) 300 MG tablet Take 300 mg by mouth at bedtime spironolactone (Aldactone) 50 MG tablet Take 1 tablet (50 mg) by mouth in the morning. 30 tablet 5 tiZANidine (Zanaflex) 4 MG tablet Take 1 tablet (4 mg) by mouth every 12 (twelve) hours if needed for muscle spasms 60 tablet 2 varenicline (Chantix) 1 MG tablet Take 1 tablet (1 mg) by mouth in the morning and 1 tablet (1 mg) before bedtime. Take with full glass of water. 60 tablet 0 No current facility-administered medications for this visit. Past Medical History: Diagnosis Date Anxiety Bilateral lower extremity edema 01/26/2023 stable Class 3 severe obesity due to excess calories without serious comorbidity with body mass index (BMI) of 40.0 to 44.9 in adult ([facility]) 01/26/2023 COPD mixed type ([facility]) 01/26/2023 DENIES HX OF BLOOD BORNE DISEASES Depression Fibromyalgia Open wound of left foot 01/26/2023 Open wound of second toe 01/26/2023 Other acute sinusitis 01/26/2023 Primary hypertension 01/26/2023 Tobacco dependence 01/26/2023 Past Surgical History: [...] Topics Alcohol use: Not Currently Comment: socially BP 110/64 Pulse 86 Wt 245 lb SpO2 94% BMI 40.77 kg/m Exam: Heart: regular rate Lungs: clear to auscultation bilaterally, no wheezes/rales/rhonchi, no resp distress Extremities: no edema noted, no visible rashes Neuro: alert, oriented x3 Imaging Reviewed: Report of chest x-ray from December 2023 reviewed -- no images available to review, stable chest x-ray, no effusion, pneumothorax PFT's from May 2023 reviewed - - FVC 2.33 L ( 66 %), FEV1 1.92 L ( 71 %), ratio 83 %, no significant bronchodilator response, no hyperinflation present, no air trapping present, diminished DLCO that does correct when adjusted for alveolar ventilation Assessment/Plan: COPD -- the patient states that she was diagnosed with COPD a few years ago. Her PFTs that were done in 2022 do not demonstrate evidence of large airway obstruction consistent with COPD. She currently is not using any inhaled medications on a routine basis. She does have both Breztri as well as albuterol at home. However she states she only uses these on an as needed basis. She does notice increased symptoms when she is sick. I do suspect that she has a reactive airway component. However we discussed that if she does wheeze that she should begin using Breztri more regularly. Her states that she does occasionally wheeze at home When they are watching TV at night. However she does not have any significant symptoms then I would not advocate a routine inhaled regimen. WINSOME -- she does give a prior history of sleep apnea. She had previously been on CPAP. However she has not use this for quite some time. We discussed the ramifications of untreated sleep apnea. She is agreeable to restarting her CPAP machine but does understands she will need a repeat sleep study. A home sleep study ordered for her after today's office visit. CPAP will be arranged for her prior to her next appointment. She will follow here in a few months time to reassess her symptoms and address the treatment of her sleep apnea. Tobacco use -- she does continue to smoke on a daily basis. We did have a 4 minute discussion regarding the importance of smoking cessation at today's office visit. Follow up in about 3 months (around 12/01/2024) for WINSOME. Nat Henderson DO documented in this encounter [facility] 07-31-2024 History of Presen t illness Narrative Associated Problem(s): Screening for lung cancer Patient meets requirements for low dose CT scan for lung cancer screening: age 55-80, patient is a current smoker or has quit in the last 15 years. Smoking history is > or equal to 30 pack-year. If needed the patient is able or willing to receive treatment. The patient is not currently exhibiting any s/s of lung cancer. We have discussed the benefits as well as harms of screening, follow up testing if needed, false positive rates. We have also discussed that this type of CT scan has less radiation exposure than a traditional lung CT scan. We have also discussed that it is important to follow with annual screening for this. The patient has also been counseled on the importance of smoking cessation. Associated Problem(s): Morbid (severe) obesity due to excess calories ([facility]) Discussed with patient their BMI (actual, verses recommended). We have also discussed lifestyle modifications: attempts to perform physical activity as chronic conditions allow, also to monitor dietary intake: increasing protein/fruits/veggies and lowering carb intake (unless contraindicated). Limit sodas, juices, and sugary drinks. Chronic pain related issues does limit ability to exercise on regular basis Associated Problem(s): Fibromyalgia Continue with Madiha ELIZABETH reviewed Associated Problem(s): Chronic kidney disease, stage 3a (CMS-HCC) Check Chem 8 02 range is 89-92% Vrylar 3.5mg once daily Prazosin 3mg nightly- drug induced parkinson's Images from the original note were not included. Franky Srinivasan is a 58 y.o. female presents with chief complaint of Medicare Annual Wellness Visit Initial HPI: Diet:variety, could eat more veggies Activity: fibro limits activity Mental Health Concerns: depression/anxiety, under care of psych Falls in the last year: yes Still driving: no Do you pay your bills: yes Any hearing problems:no Any Vision problems: no, last exam >2 years ago Any Hospitalizations in the last year: yes pneumonia Specialist: Patricia for psych, going to see [facility] for pulm HCPOA/Living Will: no Concerns: no Lamictal: same Seqo: no morning dose, vraylar in place of, 300mg at HS, prazosin 3mg SUBJECTIVE: MEDICATIONS: Current Outpatient Medications Medication Instructions albuterol HFA 90 mcg/act inhaler 2 puffs, Inhalation, Every 6 hours PRN albuterol 2.5 mg, Every 6 hours PRN amitriptyline (ELAVIL) 50 mg, Oral, Nightly atorvastatin (LIPITOR) 20 mg, Oral, Nightly Ephtiuy-Cihiorsclsj-Vidwgofxie (Breztri Aerosphere) 160-9-4.8 MCG/ACT aerosol 2 puffs, Inhalation, 2 times daily, Inhale 2 puffs in the morning and 2 puffs before bedtime. bumetanide (Bumex) 0.5 MG tablet Take only cetirizine (ZYRTEC) 10 mg, Oral, Daily cholecalciferol (Vitamin D-3) 125 MCG (5000 UT) [...] 2 mg, Nightly prazosin (MINIPRESS) 1 mg, Oral, Nightly pregabalin (LYRICA) 100 mg, Oral, 2 times daily propranolol (INDERAL) 40 mg, Oral, 2 times daily QUEtiapine (SEROQUEL) 300 mg, Nightly spironolactone (ALDACTONE) 50 mg, Oral, Every morning tiZANidine (ZANAFLEX) 4 mg, Oral, Every 12 hours PRN varenicline (CHANTIX) 1 mg, Oral, 2 times daily, Take with full glass of water. Varenicline Tartrate, Starter, (Chantix Starting Month ) 0.5 MG X 11 & 1 MG X 42 tablet therapy pack 1 tablet, Oral, Daily, Take as directed ALLERGIES: Allergies Allergen Reactions Penicillins Hives, Shortness of breath and Swelling Shortness of breath Prednisone Itching Itchy eyes and shortness of breath REVIEW OF SYMPTOMS: Review of Systems Constitutional: Negative for appetite change, chills and fever. [...] for difficulty urinating, dysuria and frequency. Musculoskeletal: Positive for arthralgias and myalgias. Negative for back pain and joint swelling. Skin: Negative for rash and wound. Neurological: [...] (BMI) of 40.0 to 44.9 in adult ([facility]) 01/26/2023 COPD mixed type ([facility]) 01/26/2023 DENIES HX OF BLOOD BORNE DISEASES Depression Fibromyalgia Open wound of left foot 01/26/2023 Open wound of second toe 01/26/2023 Other acute sinusitis 01/26/2023 Primary hypertension 01/26/2023 Tobacco dependence 01/26/2023 Past Surgical History: Procedure Laterality Date SECTION, LOW TRANSVERSE x2 HYSTERECTOMY 08/2014 Total Laparoscopic KNEE SURGERY Left 09/02/2021 SCOPE - DR MAURICE TUBAL LIGATION Laparoscopic family history is not on file. She was adopted. OBJECTIVE: Visit Vitals BP 104/70 (BP Location: Left arm, Patient Position: Sitting, BP Cuff Size: Large adult) Pulse 80 Temp 98.1 F (Temporal) Resp 24 Wt 245 lb 12.8 oz SpO2 92% BMI 40.90 kg/m Smoking Status Every Day BSA 2.26 m Physical Exam Vitals and nursing note reviewed. Constitutional: General: She is not in acute distress. Appearance: Normal appearance. She is obese. She [...] Effort: Pulmonary effort is normal. Breath sounds: Normal breath sounds. No wheezing or rhonchi. Abdominal: General: Bowel sounds are normal. There is no distension. Palpations: Abdomen is soft. There is no mass. Tenderness: There is no abdominal tenderness. Musculoskeletal: General: Normal range of motion. Cervical back: Normal range of motion and neck supple. Right lower leg: Edema present. Left lower leg: Edema present. Comments: Trace-1 + bilat pedal Skin: General: Skin is warm and dry. Capillary Refill: Capillary refill takes 2 to 3 seconds. Findings: No rash. Neurological: General: No focal deficit present. Mental Status: She is alert and oriented to person, place, and time. Psychiatric: Mood and Affect: Mood normal. Behavior: Behavior normal. Thought Content: Thought content normal. Judgment: Judgment normal. ASSESSMENT AND PLAN: Follow up in about 2 months (around 09/30/2024) for Recheck. Problem List Items Addressed This Visit Fibromyalgia Continue with Madiha ELIZABETH reviewed Relevant Medications amitriptyline (Elavil) 100 MG tablet pregabalin (Lyrica) 100 MG capsule Mixed hyperlipidemia On statin therapy Check labs yearly and prn dose changes Relevant Medications atorvastatin (Lipitor) 20 MG tablet Tobacco dependence The patient has been advised of the risks of continued smoking: stroke, [place], all forms of cancer, lung disease, and . Options for quitting smoking include: cold turkey, hypnosis, acupuncture, nicotine replacement meds (gum, lozenges, and patches), Buproprion, and Varenicline. At this time pt is encouraged to evaluate their goals for wanting to quit smoking, and reach out to provider when ready to start this process Would like jay, dr hernandez said ok to trial, just needs to monitor for worsening in depression Fu in 8 weeks Relevant Medications Varenicline Tartrate, Starter, (Chantix Starting Month ) 0.5 MG X 11 & 1 MG X 42 tablet therapy pack varenicline (Chantix) 1 MG tablet Other Relevant Orders CT lung screening low dose Bilateral lower extremity edema Current meds: bumex (3 times per week) and spironolactone daily Elevate feet 2-3 times daily Limit sodium Recommend compression stockings Check labs yearly and prn Relevant Medications bumetanide (Bumex) 0.5 MG tablet COPD mixed type ([facility]) Current meds: breztri, albuterol HFA and neb prn Was referred to Pulmonology, is supposed to get a PFT prior to seeing pulmonology Relevant Medications Cdnggsc-Rjljlkbhxkc-Caymurgkze (Breztri Aerosphere) 160-9-4.8 MCG/ACT aerosol Anxiety and depression Continue with Dr Hernandez GERD (gastroesophageal reflux disease) Recommendations: freq small meals, nothing to eat or drink at least 2 hours prior to bed, limit caffeine, alcohol, as well as spicy foods Meds to limit or avoid if possible: NSAIDS Elevate HOB if possible Current med: omeprazole Insurance correspondance about jail use of PPI Pt has been counseled on the risks of jail use, would like to continue WINSOME (obstructive sleep apnea) You have a diagnosis of obstructive sleep apnea. It is recommended that you wear your PAP device any time while in bed sleeping. Not using the PAP device can increase your risk of elevated/uncontrolled high blood pressure, atrial fibrillation, heart attack, stroke, or sudden . Compliant: no Encounter for subsequent annual wellness visit (AWV) in Medicare patient - Primary Reviewed Ht/Wt/BMI Recommend eye exam yearly Recommend dental exams twice a year Balance work/leisure activities Exercises is recommended most days of the week (appropriate as chronic conditions allow) Follow up yearly and prn Environmental and seasonal allergies Relevant Medications cetirizine (ZyrTEC) 10 MG tablet montelukast (Singulair) 10 MG tablet Chronic kidney disease, stage 3a ([facility]) Check Chem 8 Screening for lung cancer Patient meets requirements for low dose CT scan for lung cancer screening: age 55-80, patient is a current smoker or has quit in the last 15 years. Smoking history is > or equal to 30 pack-year. If needed the patient is able or willing to receive treatment. The patient is not currently exhibiting any s/s of lung cancer. We have discussed the benefits as well as harms of screening, follow up testing if needed, false positive rates. We have also discussed that this type of CT scan has less radiation exposure than a traditional lung CT scan. We have also discussed that it is important to follow with annual screening for this. The patient has also been counseled on the importance of smoking cessation. Other Visit Diagnoses Gastro-esophageal reflux disease without esophagitis Relevant Medications omeprazole (PriLOSEC) [address] echols Personal history of other diseases of the nervous system and sense organs Relevant Medications propranolol (Inderal) 40 MG tablet Associated Problem(s): Tremor Will refer to neuro for this Differentials: side effects med, PD? Associated Problem(s): Tobacco dependence The patient has been advised of the risks of continued smoking: stroke, [place], all forms of cancer, lung disease, and . Options for quitting smoking include: cold turkey, hypnosis, acupuncture, nicotine replacement meds (gum, lozenges, and patches), Buproprion, and Varenicline. At this time pt is encouraged to evaluate their goals for wanting to quit smoking, and reach out to provider when ready to start this process Would like jay, dr hernandez said ok to trial, just needs to monitor for worsening in depression Fu in 8 weeks Associated Problem(s): Mixed hyperlipidemia On statin therapy Check labs yearly and prn dose changes Associated Problem(s): Encounter for subsequent annual wellness visit (AWV) in Medicare patient Reviewed Ht/Wt/BMI Recommend eye exam yearly Recommend dental exams twice a year Balance work/leisure activities Exercises is recommended most days of the week (appropriate as chronic conditions allow) Follow up yearly and prn Associated Problem(s): Anxiety and depression Continue with Dr Hernandez Associated Problem(s): Bilateral lower extremity edema Current meds: bumex (3 times per week) and spironolactone daily Elevate feet 2-3 times daily Limit sodium Recommend compression stockings Check labs yearly and prn Associated Problem(s): GERD (gastroesophageal reflux disease) Recommendations: freq small meals, nothing to eat or drink at least 2 hours prior to bed, limit caffeine, alcohol, as well as spicy foods Meds to limit or avoid if possible: NSAIDS Elevate HOB if possible Current med: omeprazole Insurance correspondance about jail use of PPI Pt has been counseled on the risks of jail use, would like to continue Associated Problem(s): Primary hypertension Please check blood pressure daily and record DASH diet Limit caffeine Take medication as directed Contact office if chest pain, pressure, dizziness, shortness of breath, swelling legs Recommend slow position changes Current meds; Associated Problem(s): COPD mixed type (HCC) Current meds: breztri, albuterol HFA and neb prn Was referred to Pulmonology, is supposed to get a PFT prior to seeing pulmonology Associated Problem(s): WINSOME (obstructive sleep apnea) You have a diagnosis of obstructive sleep apnea. It is recommended that you wear your PAP device any time while in bed sleeping. Not using the PAP device can increase your risk of elevated/uncontrolled high blood pressure, atrial fibrillation, heart attack, stroke, or sudden . Compliant: no documented in this encounter [facility] 07-31-2024 Instructions Jaymie Phoenix NP - 07/31/2024 10:30 AM EDT Get labs completed Chantix: take as directed, contact me if worsening in mental health documented in this encounter [facility] 06-14-2024 Telephone encounter Note She is also due for her AWV, please call to schedule LA [facility] 06-14-2024 Miscellaneous Notes She is also due for her AWV, please call to schedule LA documented in this encounter [facility] 06-14-2024 Telephone encounter Note 90 day supply [facility] 06-14-2024 Miscellaneous Notes 90 day supply documented in this encounter [facility] 03-14-2024 History of Presen t illness Narrative [...] (BMI) of 40.0 to 44.9 in adult ([facility]) 01/26/2023 COPD mixed type ([facility]) 01/26/2023 DENIES HX OF BLOOD BORNE DISEASES Depression ([facility]) Fibromyalgia Open wound of left foot 01/26/2023 Open wound of second toe 01/26/2023 Other acute sinusitis 01/26/2023 Primary hypertension ([facility]) 01/26/2023 Tobacco dependence 01/26/2023 Past Surgical History: Procedure Laterality Date SECTION, LOW TRANSVERSE x2 HYSTERECTOMY 08/2014 Total Laparoscopic KNEE SURGERY Left 09/02/2021 SCOPE - DR ESTEVESANIC TUBAL LIGATION Laparoscopic Family History Adopted: Yes [...] , wrist extensors , wrist flexor , braille proofreader strength 5/5. LUE Strength deltoid , biceps , triceps , wrist extensors , wrist flexor , braille proofreader strength 5/5. RLE Strength illopsoas, quadriceps, tibialis [...] reflex 1+ . Forrest's sign negative. Coordination: Rterge-mp-paak testing and rapid alternating movements are normal [...] follow up closely with her psychiatrist, Dr. Hernandez, for consideration of reduction or change of [...] and return instructions documented in this encounter [facility] 02-10-2024 History of Presen t illness Narrative [...] of 40.0 to 44.9 in adult (CMS/HCC) 01/26/2023 COPD mixed type (CMS/HCC) 01/26/2023 DENIES HX OF BLOOD BORNE DISEASES Depression ([facility]/H[facility]) Fibromyalgia Open wound of left foot 01/26/2023 [...] of the risks of continued smoking: stroke, [place], all forms of cancer, lung disease, and [...] possible Current med: omeprazole Insurance correspondance about jail use of PPI Pt has been counseled on the risks of jail use, would like to continue Associated Problem(s): [...] . Compliant: no documented in this encounter [facility] 01-03-2024 History of Presen t illness Narrative [...] (BMI) of 40.0 to 44.9 in adult ([facility]) 01/26/2023 COPD mixed type ([facility]) 01/26/2023 DENIES HX OF BLOOD BORNE DISEASES Depression ([facility]) Fibromyalgia Open wound of left foot 01/26/2023 Open wound of second toe 01/26/2023 Other acute sinusitis 01/26/2023 Primary hypertension ([facility]) 01/26/2023 Tobacco dependence 01/26/2023 Past Surgical History: [...] of the risks of continued smoking: stroke, [place], all forms of cancer, lung disease, and [...] of the risks of continued smoking: stroke, [place], all forms of cancer, lung disease, and [...] use of PAP documented in this encounter [facility] 01-03-2024 Instructions Jaymie Phoenix NP - 01/03/2024 10:30 AM EST Referral to community health education coordinator Consider patches documented in this encounter [facility] 03-25-2023 History of Presen t illness Narrative [...] (BMI) of 40.0 to 44.9 in adult ([facility]) 01/26/2023 COPD mixed type ([facility]) 01/26/2023 DENIES HX OF BLOOD BORNE DISEASES Depression ([facility]) Fibromyalgia Open wound of left foot 01/26/2023 Open wound of second toe 01/26/2023 Other acute sinusitis 01/26/2023 Primary hypertension ([facility]) 01/26/2023 Tobacco dependence 01/26/2023 Past Surgical History: [...] chest 2 views documented in this encounter [facility] 03-16-2023 History of Presen t illness Narrative [...] (BMI) of 40.0 to 44.9 in adult ([facility]) 01/26/2023 COPD mixed type ([facility]) 01/26/2023 DENIES HX OF BLOOD BORNE DISEASES Depression ([facility]) Fibromyalgia Open wound of left foot 01/26/2023 Open wound of second toe 01/26/2023 Other acute sinusitis 01/26/2023 Primary hypertension ([facility]) 01/26/2023 Tobacco dependence 01/26/2023 Past Surgical History: [...] 40.0-44.9, adult (Z68.41) documented in this encounter [facility] 04-30-2022 Note CONSULTATION CONSULTATION DATE: [...] office on an as needed basis. [facility] 02-25-2022 Note OPERATIVE NOTE OPERATION DATE: [...] good condition. CC: Patient's family physician [facility] 02-06-2022 Note CONSULTATION CONSULTATION DATE: 02/06/2022 [...] followed up in the clinic thereafter. [facility] 02-03-2022 Note Chief Complaint consultation for [...] followed up in the clinic thereafter. [facility] 12-09-2021 Note CONSULTATION CONSULTATION DATE: 12/09/2021 [...] to proceed. CC: Jaymie Phoenix, MEREDITH [facility] Evaluation + Plan note No data available for this section General Surgery [place] Evaluation note Diagnosis COPD mixed type (CMS/HCC)- [...] right lower extremity- Primary BMI 40.0-44.9, adult ([facility]) Shortness of breath COPD mixed type (CMS/HCC) [...] dependence Tobacco use disorder BMI 40.0-44.9, adult ([facility]) COPD mixed type (CMS/HCC) WINSOME (obstructive sleep apnea) Obstructive sleep apnea (adult) (pediatric) Encounter for subsequent annual wellness visit (AWV) in Medicare patient- Primary Edema of right lower extremity Anxiety and depression ([facility]) Tobacco dependence Tobacco use disorder BMI 40.0-44.9, adult ([facility]) Fibromyalgia Unspecified myalgia and myositis Primary hypertension (CMS/[facility]) Unspecified essential hypertension COPD mixed type (CMS/HCC) Mixed hyperlipidemia ([facility]) Mixed hyperlipidemia documented in this encounter [facility] HealthcareEvaluation note* Diagnosis Primary hypertension ([facility])- Primary Unspecified essential hypertension Mixed hyperlipidemia ([facility]) Mixed hyperlipidemia Fibromyalgia Unspecified myalgia and myositis Migraine without aura and without status migrainosus, not intractable ([facility]) Class 3 severe obesity due to excess calories without serious comorbidity with body mass index (BMI) of 40.0 to 44.9 in adult ([facility]) Tobacco dependence Tobacco use disorder Bilateral lower extremity edema Acute non-recurrent sinusitis of other sinus COPD mixed type (CMS/HCC) Open wound of second toe of left foot, initial encounter Open wound of left foot, initial encounter COPD mixed type (CMS/HCC)- Primary Tobacco dependence Tobacco use disorder BMI 40.0-44.9, adult ([facility]) Body mass index [BMI] 40.0-44.9, adult (Z68.41) [...] of right lower extremity Anxiety and depression (CMS/[facility]) Tobacco dependence Tobacco use disorder BMI 40.0-44.9, adult ([facility]) Fibromyalgia Unspecified myalgia and myositis Primary hypertension (CMS/[facility]) Unspecified essential hypertension COPD mixed type ([facility]) Fibromyalgia Unspecified myalgia and myositis documented in this encounter [facility] HealthcareEvaluation note* Diagnosis Primary hypertension (CMS/HCC)- Primary Unspecified essential hypertension Mixed hyperlipidemia (CMS/[facility]) Mixed hyperlipidemia Fibromyalgia Unspecified myalgia and myositis Migraine without aura and without status migrainosus, not intractable (CMS/HCC) Class 3 severe obesity due to excess calories without serious comorbidity with body mass index (BMI) of 40.0 to 44.9 in adult ([facility]) Tobacco dependence Tobacco use disorder Bilateral lower extremity edema Acute non-recurrent sinusitis of other sinus COPD mixed type (CMS/HCC) Open wound of second toe of left foot, initial encounter Open wound of left foot, initial encounter COPD mixed type (CMS/HCC)- Primary Tobacco dependence Tobacco use disorder BMI 40.0-44.9, adult (CMS/[facility]) Body mass index [BMI] 40.0-44.9, adult (Z68.41) Primary hypertension (CMS/HCC) Unspecified essential hypertension Bilateral lower extremity edema Edema of right lower extremity- Primary BMI 40.0-44.9, adult (CMS/[facility]) Shortness of breath COPD mixed type (CMS/HCC) Primary hypertension (CMS/HCC) Unspecified essential hypertension Bilateral lower extremity edema Bilateral lower extremity edema- Primary Primary hypertension (CMS/HCC) Unspecified essential hypertension COPD mixed type (CMS/[facility]) Class 3 severe obesity due to excess calories without serious comorbidity with body mass index (BMI) of 40.0 to 44.9 in adult ([facility]) Tobacco dependence Tobacco use disorder Bilateral lower extremity edema- Primary Tobacco dependence Tobacco use disorder BMI 40.0-44.9, adult ([facility]) COPD mixed type ([facility]) WINSOME (obstructive sleep apnea) Obstructive sleep apnea (adult) (pediatric) Encounter for subsequent annual wellness visit (AWV) in Medicare patient- Primary Edema of right lower extremity Anxiety and depression ([facility]) Tobacco dependence Tobacco use disorder BMI 40.0-44.9, adult ([facility]) Fibromyalgia Unspecified myalgia and myositis Primary hypertension ([facility]) Unspecified essential hypertension COPD mixed type ([facility]) WINSOME (obstructive sleep apnea)- Primary Obstructive sleep apnea (adult) (pediatric) COPD mixed type ([facility]) Primary hypertension ([facility]) Unspecified essential hypertension Fibromyalgia Unspecified myalgia and myositis BMI 40.0-44.9, adult ([facility]) Tobacco dependence Tobacco use disorder Mixed hyperlipidemia ([facility]) Mixed hyperlipidemia Vitamin D deficiency Vitamin B12 deficiency Other B-complex deficiencies COPD with acute exacerbation ([facility]) documented in this encounter [facility]* Diagnosis Fibromyalgia Unspecified myalgia and myositis Gastro-esophageal reflux disease without esophagitis documented in this encounter [facility]* Diagnosis Primary hypertension ([facility])- Primary Unspecified essential hypertension Mixed hyperlipidemia ([facility]) Mixed hyperlipidemia Fibromyalgia Unspecified myalgia and myositis Migraine without aura and without status migrainosus, not intractable ([facility]) Class 3 severe obesity due to excess calories without serious comorbidity with body mass index (BMI) of 40.0 to 44.9 in adult ([facility]) Tobacco dependence Tobacco use disorder Bilateral lower extremity edema Acute non-recurrent sinusitis of other sinus COPD mixed type ([facility]) Open wound of second toe of left foot, initial encounter Open wound of left foot, initial encounter COPD mixed type ([facility]/HCC)- Primary Tobacco dependence Tobacco use disorder BMI 40.0-44.9, adult ([facility]) Body mass index [BMI] 40.0-44.9, adult (Z68.41) Primary hypertension ([facility]) Unspecified essential hypertension Bilateral lower extremity edema Edema of right lower extremity- Primary BMI 40.0-44.9, adult ([facility]) Shortness of breath COPD mixed type (CMS/HCC) [...] dependence Tobacco use disorder BMI 40.0-44.9, adult ([facility]) COPD mixed type (CMS/HCC) WINSOME (obstructive sleep apnea) Obstructive sleep apnea (adult) (pediatric) Encounter for subsequent annual wellness visit (AWV) in Medicare patient- Primary Edema of right lower extremity Anxiety and depression ([facility]) Tobacco dependence Tobacco use disorder BMI 40.0-44.9, adult ([facility]) Fibromyalgia Unspecified myalgia and myositis Primary hypertension ([facility]) Unspecified essential hypertension COPD mixed type ([facility]/HCC) WINSOME (obstructive sleep apnea)- Primary Obstructive sleep apnea (adult) (pediatric) COPD mixed type (CMS/HCC) Primary hypertension (CMS/HCC) Unspecified essential hypertension Fibromyalgia Unspecified myalgia and myositis BMI 40.0-44.9, adult ([facility]) Tobacco dependence Tobacco use disorder Mixed hyperlipidemia ([facility]) Mixed hyperlipidemia Vitamin D deficiency Vitamin B12 deficiency Other B-complex deficiencies COPD with acute exacerbation ([facility]) Fibromyalgia Unspecified myalgia and myositis documented in this encounter [facility] HealthcareEvaluation note* Diagnosis Primary hypertension ([facility])- Primary Unspecified essential hypertension Mixed hyperlipidemia ([facility]) Mixed hyperlipidemia Fibromyalgia Unspecified myalgia and myositis Migraine without aura and without status migrainosus, not intractable (CMS/[facility]) Class 3 severe obesity due to excess calories without serious comorbidity with body mass index (BMI) of 40.0 to 44.9 in adult ([facility]) Tobacco dependence Tobacco use disorder Bilateral lower extremity edema Acute non-recurrent sinusitis of other sinus COPD mixed type (CMS/HCC) Open wound of second toe of left foot, initial encounter Open wound of left foot, initial encounter COPD mixed type (CMS/HCC)- Primary Tobacco dependence Tobacco use disorder BMI 40.0-44.9, adult ([facility]) Body mass index [BMI] 40.0-44.9, adult (Z68.41) Primary hypertension ([facility]/HCC) Unspecified essential hypertension Bilateral lower extremity edema Edema of right lower extremity- Primary BMI 40.0-44.9, adult ([facility]) Shortness of breath COPD mixed type ([facility]) Primary hypertension ([facility]/HCC) Unspecified essential hypertension Bilateral lower extremity edema Bilateral lower extremity edema- Primary Primary hypertension ([facility]) Unspecified essential hypertension COPD mixed type (CMS/HCC) Class 3 severe obesity due to excess calories without serious comorbidity with body mass index (BMI) of 40.0 to 44.9 in adult ([facility]) Tobacco dependence Tobacco use disorder Bilateral lower extremity edema- Primary Tobacco dependence Tobacco use disorder BMI 40.0-44.9, adult ([facility]) COPD mixed type ([facility]) WINSOME (obstructive sleep apnea) Obstructive sleep apnea (adult) (pediatric) Encounter for subsequent annual wellness visit (AWV) in Medicare patient- Primary Edema of right lower extremity Anxiety and depression ([facility]) Tobacco dependence Tobacco use disorder BMI 40.0-44.9, adult ([facility]) Fibromyalgia Unspecified myalgia and myositis Primary hypertension ([facility]) Unspecified essential hypertension COPD mixed type ([facility]) WINSOME (obstructive sleep apnea)- Primary Obstructive sleep apnea (adult) (pediatric) COPD mixed type ([facility]/HCC) Primary hypertension ([facility]) Unspecified essential hypertension Fibromyalgia Unspecified myalgia and myositis BMI 40.0-44.9, adult ([facility]) Tobacco dependence Tobacco use disorder Mixed hyperlipidemia ([facility]) Mixed hyperlipidemia Vitamin D deficiency Vitamin B12 deficiency Other B-complex deficiencies COPD with acute exacerbation ([facility]) COPD with acute exacerbation ([facility])- Primary Morbid (severe) obesity due to excess calories ([facility]) Body mass index (BMI) 40.0-44.9, adult ([facility]) WINSOME (obstructive sleep apnea) Obstructive sleep apnea (adult) (pediatric) COPD mixed type ([facility]) Gastroesophageal reflux disease, unspecified whether esophagitis present Tobacco dependence Tobacco use disorder Gastro-esophageal reflux disease without esophagitis Tremor Abnormal involuntary movements documented in this encounter [facility]* Diagnosis Primary hypertension ([facility])- Primary Unspecified essential hypertension Mixed hyperlipidemia (CMS/[facility]) Mixed hyperlipidemia Fibromyalgia Unspecified myalgia and myositis Migraine without aura and without status migrainosus, not intractable (CMS/[facility]) Class 3 severe obesity due to excess calories without serious comorbidity with body mass index (BMI) of 40.0 to 44.9 in adult ([facility]) Tobacco dependence Tobacco use disorder Bilateral lower extremity edema Acute non-recurrent sinusitis of other sinus COPD mixed type ([facility]) Open wound of second toe of left foot, initial encounter Open wound of left foot, initial encounter COPD mixed type (CMS/HCC)- Primary Tobacco dependence Tobacco use disorder BMI 40.0-44.9, adult ([facility]) Body mass index [BMI] 40.0-44.9, adult (Z68.41) Primary hypertension (CMS/[facility]) Unspecified essential hypertension Bilateral lower extremity edema Edema of right lower extremity- Primary BMI 40.0-44.9, adult ([facility]) Shortness of breath COPD mixed type ([facility]) Primary hypertension ([facility]) Unspecified essential hypertension Bilateral lower extremity edema Bilateral lower extremity edema- Primary Primary hypertension (CMS/[facility]) Unspecified essential hypertension COPD mixed type ([facility]) Class 3 severe obesity due to excess calories without serious comorbidity with body mass index (BMI) of 40.0 to 44.9 in adult ([facility]) Tobacco dependence Tobacco use disorder Bilateral lower extremity edema- Primary Tobacco dependence Tobacco use disorder BMI 40.0-44.9, adult ([facility]) COPD mixed type ([facility]) WINSOME (obstructive sleep apnea) Obstructive sleep apnea (adult) (pediatric) Encounter for subsequent annual wellness visit (AWV) in Medicare patient- Primary Edema of right lower extremity Anxiety and depression ([facility]) Tobacco dependence Tobacco use disorder BMI 40.0-44.9, adult ([facility]) Fibromyalgia Unspecified myalgia and myositis Primary hypertension ([facility]) Unspecified essential hypertension COPD mixed type ([facility]) WINSOME (obstructive sleep apnea)- Primary Obstructive sleep apnea (adult) (pediatric) COPD mixed type ([facility]/HCC) Primary hypertension (CMS/[facility]) Unspecified essential hypertension Fibromyalgia Unspecified myalgia and myositis BMI 40.0-44.9, adult ([facility]) Tobacco dependence Tobacco use disorder Mixed hyperlipidemia ([facility]) Mixed hyperlipidemia Vitamin D deficiency Vitamin B12 deficiency Other B-complex deficiencies COPD with acute exacerbation ([facility]/HCC) COPD with acute exacerbation ([facility]/HCC)- Primary Morbid (severe) obesity due to excess calories ([facility]) Body mass index (BMI) 40.0-44.9, adult (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)- Primary Unspecified essential hypertension Mixed hyperlipidemia ([facility]) Mixed hyperlipidemia Fibromyalgia Unspecified myalgia and myositis Migraine without aura and without status migrainosus, not intractable ([facility]) Class 3 severe obesity due to excess calories without serious comorbidity with body mass index (BMI) of 40.0 to 44.9 in adult ([facility]) Tobacco dependence Tobacco use disorder Bilateral lower extremity edema Acute non-recurrent sinusitis of other sinus COPD mixed type ([facility]) Open wound of second toe of left foot, initial encounter Open wound of left foot, initial encounter COPD mixed type ([facility])- Primary Tobacco dependence Tobacco use disorder BMI 40.0-44.9, adult ([facility]) Body mass index [BMI] 40.0-44.9, adult (Z68.41) Primary hypertension ([facility]) Unspecified essential hypertension Bilateral lower extremity edema Edema of right lower extremity- Primary BMI 40.0-44.9, adult ([facility]) Shortness of breath COPD mixed type ([facility]) Primary hypertension ([facility]) Unspecified essential hypertension Bilateral lower extremity edema Bilateral lower extremity edema- Primary Primary hypertension ([facility]) Unspecified essential hypertension COPD mixed type ([facility]) Class 3 severe obesity due to excess calories without serious comorbidity with body mass index (BMI) of 40.0 to 44.9 in adult ([facility] [facility]) Tobacco dependence Tobacco use disorder Bilateral lower extremity edema- Primary Tobacco dependence Tobacco use disorder BMI 40.0-44.9, adult ([facility]) COPD mixed type ([facility]) WINSOME (obstructive sleep apnea) Obstructive sleep apnea (adult) (pediatric) Encounter for subsequent annual wellness visit (AWV) in Medicare patient- Primary Edema of right lower extremity Anxiety and depression ([facility]) Tobacco dependence Tobacco use disorder BMI 40.0-44.9, adult ([facility]) Fibromyalgia Unspecified myalgia and myositis Primary hypertension ([facility]) Unspecified essential hypertension COPD mixed type ([facility]) WINSOME (obstructive sleep apnea)- Primary Obstructive sleep apnea (adult) (pediatric) COPD mixed type ([facility]/HCC) Primary hypertension ([facility]) Unspecified essential hypertension Fibromyalgia Unspecified myalgia and myositis BMI 40.0-44.9, adult ([facility]) Tobacco dependence Tobacco use disorder Mixed hyperlipidemia ([facility] Mixed hyperlipidemia Vitamin D deficiency Vitamin B12 deficiency Other B-complex deficiencies COPD with acute exacerbation ([facility]) COPD with acute exacerbation ([facility])- Primary Morbid (severe) obesity due to excess calories ([facility]) Body mass index (BMI) 40.0-44.9, adult ([facility]) WINSOME (obstructive sleep apnea) Obstructive sleep apnea (adult) (pediatric) COPD mixed type ([facility]) Gastroesophageal reflux disease, unspecified whether esophagitis present Tobacco dependence Tobacco use disorder Gastro-esophageal reflux disease without esophagitis Tremor Abnormal involuntary movements Fibromyalgia Unspecified myalgia and myositis Localized edema Edema Mixed hyperlipidemia ([facility]) Mixed hyperlipidemia documented in this encounter [facility] HealthcareEvaluation note* Diagnosis Primary hypertension ([facility])- Primary Unspecified essential hypertension Mixed hyperlipidemia ([facility]) Mixed hyperlipidemia Fibromyalgia Unspecified myalgia and myositis Migraine without aura and without status migrainosus, not intractable ([facility]) Class 3 severe obesity due to excess calories without serious comorbidity with body mass index (BMI) of 40.0 to 44.9 in adult ([facility]) Tobacco dependence Tobacco use disorder Bilateral lower extremity edema Acute non-recurrent sinusitis of other sinus COPD mixed type ([facility]) Open wound of second toe of left foot, initial encounter Open wound of left foot, initial encounter COPD mixed type ([facility]/HCC)- Primary Tobacco dependence Tobacco use disorder BMI 40.0-44.9, adult ([facility]) Body mass index [BMI] 40.0-44.9, adult (Z68.41) Primary hypertension ([facility]) Unspecified essential hypertension Bilateral lower extremity edema Edema of right lower extremity- Primary BMI 40.0-44.9, adult ([facility]) Shortness of breath COPD mixed type ([facility]/HCC) Primary hypertension ([facility]) Unspecified essential hypertension Bilateral lower extremity edema Bilateral lower extremity edema- Primary Primary hypertension ([facility]) Unspecified essential hypertension COPD mixed type ([facility]/HCC) Class 3 severe obesity due to excess calories without serious comorbidity with body mass index (BMI) of 40.0 to 44.9 in adult ([facility]) Tobacco dependence Tobacco use disorder Bilateral lower extremity edema- Primary Tobacco dependence Tobacco use disorder BMI 40.0-44.9, adult ([facility]) COPD mixed type ([facility]) WINSOME (obstructive sleep apnea) Obstructive sleep apnea (adult) (pediatric) Encounter for subsequent annual wellness visit (AWV) in Medicare patient- Primary Edema of right lower extremity Anxiety and depression ([facility]) Tobacco dependence Tobacco use disorder BMI 40.0-44.9, adult ([facility]) Fibromyalgia Unspecified myalgia and myositis Primary hypertension ([facility]) Unspecified essential hypertension COPD mixed type ([facility]) WINSOME (obstructive sleep apnea)- Primary Obstructive sleep apnea (adult) (pediatric) COPD mixed type ([facility]/HCC) Primary hypertension ([facility]) Unspecified essential hypertension Fibromyalgia Unspecified myalgia and myositis BMI 40.0-44.9, adult ([facility]) Tobacco dependence Tobacco use disorder Mixed hyperlipidemia ([facility]) Mixed hyperlipidemia Vitamin D deficiency Vitamin B12 deficiency Other B-complex deficiencies COPD with acute exacerbation ([facility]) COPD with acute exacerbation ([facility])- Primary Morbid (severe) obesity due to excess calories ([facility]) Body mass index (BMI) 40.0-44.9, adult ([facility]) WINSOME (obstructive sleep apnea) Obstructive sleep apnea (adult) (pediatric) COPD mixed type ([facility]) Gastroesophageal reflux disease, unspecified whether esophagitis present Tobacco dependence Tobacco use disorder Gastro-esophageal reflux disease without esophagitis Tremor Abnormal involuntary movements Environmental and seasonal allergies- Primary COPD mixed type ([facility]/HCC) documented in this encounter [facility] HealthcareEvaluation note* Diagnosis Primary hypertension ([facility])- Primary Unspecified essential hypertension Mixed hyperlipidemia ([facility]) Mixed hyperlipidemia Fibromyalgia Unspecified myalgia and myositis [...] dependence Tobacco use disorder BMI 40.0-44.9, adult (CMS/[facility]) Body mass index [BMI] 40.0-44.9, adult (Z68.41) Primary hypertension (CMS/HCC) Unspecified essential hypertension Bilateral lower extremity edema Edema of right lower extremity- Primary BMI 40.0-44.9, adult ([facility]) Shortness of breath COPD mixed type (CMS/HCC) Primary hypertension (CMS/HCC) Unspecified essential hypertension Bilateral lower extremity edema Bilateral lower extremity edema- Primary Primary hypertension (CMS/[facility]) Unspecified essential hypertension COPD mixed type (CMS/[facility]) Class 3 severe obesity due to excess calories without serious comorbidity with body mass index (BMI) of 40.0 to 44.9 in adult Tobacco dependence Tobacco use disorder Bilateral lower extremity edema- Primary Tobacco dependence Tobacco use disorder BMI 40.0-44.9, adult ([facility]) COPD mixed type (CMS/HCC) WINSOME (obstructive sleep apnea) Obstructive sleep apnea (adult) (pediatric) Encounter for subsequent annual wellness visit (AWV) in Medicare patient- Primary Edema of right lower extremity Anxiety and depression ([facility]) Tobacco dependence Tobacco use disorder BMI 40.0-44.9, adult ([facility]) Fibromyalgia Unspecified myalgia and myositis Primary hypertension (CMS/HCC) Unspecified essential hypertension COPD mixed type (CMS/HCC) WINSOME (obstructive sleep apnea)- Primary Obstructive sleep apnea (adult) (pediatric) COPD mixed type (CMS/HCC) Primary hypertension (CMS/HCC) Unspecified essential hypertension Fibromyalgia Unspecified myalgia and myositis BMI 40.0-44.9, adult ([facility]) Tobacco dependence Tobacco use disorder Mixed hyperlipidemia (CMS/[facility]) Mixed hyperlipidemia Vitamin D deficiency Vitamin B12 deficiency Other B-complex deficiencies COPD with acute exacerbation (CMS/HCC) COPD with acute exacerbation ([facility])- Primary Morbid (severe) obesity due to excess calories (CMS/[facility]) Body mass index (BMI) 40.0-44.9, adult ([facility]) WINSOME (obstructive sleep apnea) Obstructive sleep apnea (adult) (pediatric) COPD mixed type (CMS/HCC) Gastroesophageal reflux disease, unspecified whether esophagitis present Tobacco dependence Tobacco use disorder Gastro-esophageal reflux disease without esophagitis Tremor Abnormal involuntary movements Fibromyalgia Unspecified myalgia and myositis documented in this encounter [facility] HealthcareEvaluation note* Diagnosis Primary hypertension ([facility])- Primary Unspecified essential hypertension Mixed hyperlipidemia ([facility]) Mixed hyperlipidemia Fibromyalgia Unspecified myalgia and myositis Migraine without aura and without status migrainosus, not intractable ([facility]) Class 3 severe obesity due to excess calories without serious comorbidity with body mass index (BMI) of 40.0 to 44.9 in adult Tobacco dependence Tobacco use disorder Bilateral lower extremity edema Acute non-recurrent sinusitis of other sinus COPD mixed type (CMS/[facility]) Open wound of second toe of left foot, initial encounter Open wound of left foot, initial encounter COPD mixed type ([facility])- Primary Tobacco dependence Tobacco use disorder BMI 40.0-44.9, adult ([facility]) Body mass index [BMI] 40.0-44.9, adult (Z68.41) Primary hypertension (CMS/[facility]) Unspecified essential hypertension Bilateral lower extremity edema Edema of right lower extremity- Primary BMI 40.0-44.9, adult ([facility]) Shortness of breath COPD mixed type (CMS/HCC) Primary hypertension ([facility]) Unspecified essential hypertension Bilateral lower extremity edema Bilateral lower extremity edema- Primary Primary hypertension ([facility]) Unspecified essential hypertension COPD mixed type ([facility]) Class 3 severe obesity due to excess calories without serious comorbidity with body mass index (BMI) of 40.0 to 44.9 in adult Tobacco dependence Tobacco use disorder Bilateral lower extremity edema- Primary Tobacco dependence Tobacco use disorder BMI 40.0-44.9, adult ([facility]) COPD mixed type ([facility]) WINSOME (obstructive sleep apnea) Obstructive sleep apnea (adult) (pediatric) Encounter for subsequent annual wellness visit (AWV) in Medicare patient- Primary Edema of right lower extremity Anxiety and depression ([facility]) Tobacco dependence Tobacco use disorder BMI 40.0-44.9, adult ([facility]) Fibromyalgia Unspecified myalgia and myositis Primary hypertension ([facility]) Unspecified essential hypertension COPD mixed type (CMS/HCC) WINSOME (obstructive sleep apnea)- Primary Obstructive sleep apnea (adult) (pediatric) COPD mixed type (CMS/HCC) Primary hypertension (CMS/HCC) Unspecified essential hypertension Fibromyalgia Unspecified myalgia and myositis BMI 40.0-44.9, adult ([facility]) Tobacco dependence Tobacco use disorder Mixed hyperlipidemia (CMS/HCC) Mixed hyperlipidemia Vitamin D deficiency Vitamin B12 deficiency Other B-complex deficiencies COPD with acute exacerbation (CMS/HCC) COPD with acute exacerbation ([facility])- Primary Morbid (severe) obesity due to excess calories ([facility]) Body mass index (BMI) 40.0-44.9, adult ([facility]) WINSOME (obstructive sleep apnea) Obstructive sleep apnea (adult) (pediatric) COPD mixed type ([facility]) Gastroesophageal reflux disease, unspecified whether esophagitis present Tobacco dependence Tobacco use disorder Gastro-esophageal reflux disease without esophagitis Tremor Abnormal involuntary movements Mixed hyperlipidemia ([facility]) Mixed hyperlipidemia documented in this encounter [facility] HealthcareEvaluation note* Diagnosis Primary hypertension ([facility])- Primary Unspecified essential hypertension Mixed hyperlipidemia ([facility]) Mixed hyperlipidemia Fibromyalgia Unspecified myalgia and myositis Migraine without aura and without status migrainosus, not intractable ([facility]) Class 3 severe obesity due to excess calories without serious comorbidity with body mass index (BMI) of 40.0 to 44.9 in adult Tobacco dependence Tobacco use disorder Bilateral lower extremity edema Acute non-recurrent sinusitis of other sinus COPD mixed type ([facility]) Open wound of second toe of left foot, initial encounter Open wound of left foot, initial encounter COPD mixed type ([facility]/HCC)- Primary Tobacco dependence Tobacco use disorder BMI 40.0-44.9, adult ([facility]) Body mass index [BMI] 40.0-44.9, adult (Z68.41) Primary hypertension ([facility]) Unspecified essential hypertension Bilateral lower extremity edema Edema of right lower extremity- Primary BMI 40.0-44.9, adult ([facility]) Shortness of breath COPD mixed type ([facility]/HCC) Primary hypertension ([facility]/HCC) Unspecified essential hypertension Bilateral lower extremity edema Bilateral lower extremity edema- Primary Primary hypertension ([facility]) Unspecified essential hypertension COPD mixed type ([facility]) Class 3 severe obesity due to excess calories without serious comorbidity with body mass index (BMI) of 40.0 to 44.9 in adult Tobacco dependence Tobacco use disorder Bilateral lower extremity edema- Primary Tobacco dependence Tobacco use disorder BMI 40.0-44.9, adult ([facility]) COPD mixed type ([facility]/HCC) WINSOME (obstructive sleep apnea) Obstructive sleep apnea (adult) (pediatric) Encounter for subsequent annual wellness visit (AWV) in Medicare patient- Primary Edema of right lower extremity Anxiety and depression ([facility]) Tobacco dependence Tobacco use disorder BMI 40.0-44.9, adult ([facility]) Fibromyalgia Unspecified myalgia and myositis Primary hypertension ([facility]) Unspecified essential hypertension COPD mixed type ([facility]/HCC) WINSOME (obstructive sleep apnea)- Primary Obstructive sleep apnea (adult) (pediatric) COPD mixed type ([facility]/HCC) Primary hypertension ([facility]) Unspecified essential hypertension Fibromyalgia Unspecified myalgia and myositis BMI 40.0-44.9, adult ([facility]) Tobacco dependence Tobacco use disorder Mixed hyperlipidemia ([facility]) Mixed hyperlipidemia Vitamin D deficiency Vitamin B12 deficiency Other B-complex deficiencies COPD with acute exacerbation ([facility] COPD with acute exacerbation ([facility])- Primary Morbid (severe) obesity due to excess calories ([facility]) Body mass index (BMI) 40.0-44.9, adult ([facility]) WINSOME (obstructive sleep apnea) Obstructive sleep apnea (adult) (pediatric) COPD mixed type ([facility]) Gastroesophageal reflux disease, unspecified whether esophagitis present Tobacco dependence Tobacco use disorder Gastro-esophageal reflux disease without esophagitis Tremor Abnormal involuntary movements Tobacco dependence- Primary Tobacco use disorder documented in this encounter [facility] HealthcareEvaluation note* Diagnosis Primary hypertension ([facility])- Primary Unspecified essential hypertension Mixed hyperlipidemia ([facility]) Mixed hyperlipidemia Fibromyalgia Unspecified myalgia and myositis Migraine without aura and without status migrainosus, not intractable ([facility]) Class 3 severe obesity due to excess calories without serious comorbidity with body mass index (BMI) of 40.0 to 44.9 in adult Tobacco dependence Tobacco use disorder Bilateral lower extremity edema Acute non-recurrent sinusitis of other sinus COPD mixed type ([facility]) Open wound of second toe of left foot, initial encounter Open wound of left foot, initial encounter COPD mixed type ([facility]/HCC)- Primary Tobacco dependence Tobacco use disorder BMI 40.0-44.9, adult ([facility]) Body mass index [BMI] 40.0-44.9, adult (Z68.41) Primary hypertension ([facility]) Unspecified essential hypertension Bilateral lower extremity edema Edema of right lower extremity- Primary BMI 40.0-44.9, adult ([facility]) Shortness of breath COPD mixed type ([facility]) Primary hypertension ([facility]) Unspecified essential hypertension Bilateral lower extremity edema Bilateral lower extremity edema- Primary Primary hypertension ([facility]) Unspecified essential hypertension COPD mixed type ([facility]) Class 3 severe obesity due to excess calories without serious comorbidity with body mass index (BMI) of 40.0 to 44.9 in adult Tobacco dependence Tobacco use disorder Bilateral lower extremity edema- Primary Tobacco dependence Tobacco use disorder BMI 40.0-44.9, adult ([facility]) COPD mixed type ([facility]) WINSOME (obstructive sleep apnea) Obstructive sleep apnea (adult) (pediatric) Encounter for subsequent annual wellness visit (AWV) in Medicare patient- Primary Edema of right lower extremity Anxiety and depression ([facility]) Tobacco dependence Tobacco use disorder BMI 40.0-44.9, adult ([facility]) Fibromyalgia Unspecified myalgia and myositis Primary hypertension ([facility] Unspecified essential hypertension COPD mixed type ([facility]) WINSOME (obstructive sleep apnea)- Primary Obstructive sleep apnea (adult) (pediatric) COPD mixed type ([facility]/HCC) Primary hypertension ([facility]) Unspecified essential hypertension Fibromyalgia Unspecified myalgia and myositis BMI 40.0-44.9, adult ([facility]) Tobacco dependence Tobacco use disorder Mixed hyperlipidemia ([facility]) Mixed hyperlipidemia Vitamin D deficiency Vitamin B12 deficiency Other B-complex deficiencies COPD with acute exacerbation ([facility] COPD with acute exacerbation ([facility])- Primary Morbid (severe) obesity due to excess calories ([facility]) Body mass index (BMI) 40.0-44.9, adult ([facility]) WINSOME (obstructive sleep apnea) Obstructive sleep apnea (adult) (pediatric) COPD mixed type ([facility]) Gastroesophageal reflux disease, unspecified whether esophagitis present Tobacco dependence Tobacco use disorder Gastro-esophageal reflux disease without esophagitis Tremor Abnormal involuntary movements Fibromyalgia Unspecified myalgia and myositis documented in this encounter [facility] HealthcareEvaluation note* Diagnosis Primary hypertension- Primary Unspecified essential hypertension Mixed hyperlipidemia Mixed hyperlipidemia Fibromyalgia Unspecified myalgia and myositis Migraine without aura and without status migrainosus, not intractable Class 3 severe obesity due to excess calories without serious comorbidity with body mass index (BMI) of 40.0 to 44.9 in adult [place] Tobacco dependence Tobacco use disorder Bilateral lower extremity edema Acute non-recurrent sinusitis of other sinus COPD mixed type (HCC) Open wound of second toe of left foot, initial encounter Open wound of left foot, initial encounter COPD mixed type (HCC)- Primary Tobacco dependence Tobacco use disorder BMI 40.0-44.9, adult [place] Body mass index [BMI] 40.0-44.9, adult (Z68.41) Primary hypertension Unspecified essential hypertension Bilateral lower extremity edema Edema of right lower extremity- Primary BMI 40.0-44.9, adult [place] Shortness of breath COPD mixed type ([facility]) Primary hypertension Unspecified essential hypertension Bilateral lower extremity edema Bilateral lower extremity edema- Primary Primary hypertension Unspecified essential hypertension COPD mixed type (HCC) Class 3 severe obesity due to excess calories without serious comorbidity with body mass index (BMI) of 40.0 to 44.9 in adult [place] Tobacco dependence Tobacco use disorder Bilateral lower extremity edema- Primary Tobacco dependence Tobacco use disorder BMI 40.0-44.9, adult [place] COPD mixed type ([facility]) WINSOME (obstructive sleep apnea) Obstructive sleep apnea (adult) (pediatric) Encounter for subsequent annual wellness visit (AWV) in Medicare patient- Primary Edema of right lower extremity Anxiety and depression Tobacco dependence Tobacco use disorder BMI 40.0-44.9, adult [place] Fibromyalgia Unspecified myalgia and myositis Primary hypertension Unspecified essential hypertension COPD mixed type ([facility]) WINSOME (obstructive sleep apnea)- Primary Obstructive sleep apnea (adult) (pediatric) COPD mixed type (HCC) Primary hypertension Unspecified essential hypertension Fibromyalgia Unspecified myalgia and myositis BMI 40.0-44.9, adult [place] Tobacco dependence Tobacco use disorder Mixed hyperlipidemia Mixed hyperlipidemia Vitamin D deficiency Vitamin B12 deficiency Other B-complex deficiencies COPD with acute exacerbation (HCC) COPD with acute exacerbation (HCC)- Primary Morbid (severe) obesity due to excess calories ([facility] Body mass index (BMI) 40.0-44.9, adult [place] WINSOME (obstructive sleep apnea) Obstructive sleep apnea (adult) (pediatric) COPD mixed type (HCC) Gastroesophageal reflux disease, unspecified whether esophagitis present Tobacco dependence Tobacco use disorder Gastro-esophageal reflux disease without esophagitis Tremor Abnormal involuntary movements Encounter for subsequent annual wellness visit (AWV) in Medicare patient- Primary Chronic kidney disease, stage 3a ([facility] WINSOME (obstructive sleep apnea) Obstructive sleep apnea (adult) (pediatric) COPD mixed type (HCC) Gastroesophageal reflux disease, unspecified whether esophagitis present Bilateral lower extremity edema Anxiety and depression Tobacco dependence Tobacco use disorder Mixed hyperlipidemia Mixed hyperlipidemia Fibromyalgia Unspecified myalgia and myositis Environmental and seasonal allergies Gastro-esophageal reflux disease without esophagitis Personal history of other diseases of the nervous system and sense organs Screening for lung cancer documented in this encounter [facility] HealthcareEvaluation note* Diagnosis Primary hypertension- Primary Unspecified essential hypertension Mixed hyperlipidemia Mixed hyperlipidemia Fibromyalgia Unspecified myalgia and myositis Migraine without aura and without status migrainosus, not intractable Class 3 severe obesity due to excess calories without serious comorbidity with body mass index (BMI) of 40.0 to 44.9 in adult [place] Tobacco dependence Tobacco use disorder Bilateral lower extremity edema Acute non-recurrent sinusitis of other sinus COPD mixed type ([facility]) Open wound of second toe of left foot, initial encounter Open wound of left foot, initial encounter COPD mixed type (HCC)- Primary Tobacco dependence Tobacco use disorder BMI 40.0-44.9, adult ([facility] Body mass index [BMI] 40.0-44.9, adult (Z68.41) Primary hypertension Unspecified essential hypertension Bilateral lower extremity edema Edema of right lower extremity- Primary BMI 40.0-44.9, adult ([facility] Shortness of breath COPD mixed type ([facility]) Primary hypertension Unspecified essential hypertension Bilateral lower extremity edema Bilateral lower extremity edema- Primary Primary hypertension Unspecified essential hypertension COPD mixed type ([facility]) Class 3 severe obesity due to excess calories without serious comorbidity with body mass index (BMI) of 40.0 to 44.9 in adult ([facility] Tobacco dependence Tobacco use disorder Bilateral lower extremity edema- Primary Tobacco dependence Tobacco use disorder BMI 40.0-44.9, adult [place] COPD mixed type ([facility]) WINSOME (obstructive sleep apnea) Obstructive sleep apnea (adult) (pediatric) Encounter for subsequent annual wellness visit (AWV) in Medicare patient- Primary Edema of right lower extremity Anxiety and depression Tobacco dependence Tobacco use disorder BMI 40.0-44.9, adult ([facility] Fibromyalgia Unspecified myalgia and myositis Primary hypertension Unspecified essential hypertension COPD mixed type ([facility]) WINSOME (obstructive sleep apnea)- Primary Obstructive sleep apnea (adult) (pediatric) COPD mixed type (HCC) Primary hypertension Unspecified essential hypertension Fibromyalgia Unspecified myalgia and myositis BMI 40.0-44.9, adult ([facility] Tobacco dependence Tobacco use disorder Mixed hyperlipidemia Mixed hyperlipidemia Vitamin D deficiency Vitamin B12 deficiency Other B-complex deficiencies COPD with acute exacerbation (HCC) COPD with acute exacerbation (HCC)- Primary Morbid (severe) obesity due to excess calories ([facility] Body mass index (BMI) 40.0-44.9, adult ([facility] WINSOME (obstructive sleep apnea) Obstructive sleep apnea (adult) (pediatric) COPD mixed type (HCC) Gastroesophageal reflux disease, unspecified whether esophagitis present Tobacco dependence Tobacco use disorder Gastro-esophageal reflux disease without esophagitis Tremor Abnormal involuntary movements Encounter for subsequent annual wellness visit (AWV) in Medicare patient- Primary Chronic kidney disease, stage 3a ([facility] WINSOME (obstructive sleep apnea) Obstructive sleep apnea (adult) (pediatric) COPD mixed type ([facility]) Gastroesophageal reflux disease, unspecified whether esophagitis present Bilateral lower extremity edema Anxiety and depression Tobacco dependence Tobacco use disorder Mixed hyperlipidemia Mixed hyperlipidemia Fibromyalgia Unspecified myalgia and myositis Environmental and seasonal allergies Gastro-esophageal reflux disease without esophagitis Personal history of other diseases of the nervous system and sense organs Screening for lung cancer Tobacco dependence Tobacco use disorder documented in this encounter [facility]* Diagnosis Primary hypertension- Primary Unspecified essential hypertension Mixed hyperlipidemia Mixed hyperlipidemia Fibromyalgia Unspecified myalgia and myositis Migraine without aura and without status migrainosus, not intractable Class 3 severe obesity due to excess calories without serious comorbidity with body mass index (BMI) of 40.0 to 44.9 in adult ([facility] Tobacco dependence Tobacco use disorder Bilateral lower extremity edema Acute non-recurrent sinusitis of other sinus COPD mixed type ([facility]) Open wound of second toe of left foot, initial encounter Open wound of left foot, initial encounter COPD mixed type (HCC)- Primary Tobacco dependence Tobacco use disorder BMI 40.0-44.9, adult ([facility] Body mass index [BMI] 40.0-44.9, adult (Z68.41) Primary hypertension Unspecified essential hypertension Bilateral lower extremity edema Edema of right lower extremity- Primary BMI 40.0-44.9, adult ([facility] Shortness of breath COPD mixed type ([facility]) Primary hypertension Unspecified essential hypertension Bilateral lower extremity edema Bilateral lower extremity edema- Primary Primary hypertension Unspecified essential hypertension COPD mixed type ([facility]) Class 3 severe obesity due to excess calories without serious comorbidity with body mass index (BMI) of 40.0 to 44.9 in adult ([facility] Tobacco dependence Tobacco use disorder Bilateral lower extremity edema- Primary Tobacco dependence Tobacco use disorder BMI 40.0-44.9, adult ([facility] COPD mixed type ([facility]) WINSOME (obstructive sleep apnea) Obstructive sleep apnea (adult) (pediatric) Encounter for subsequent annual wellness visit (AWV) in Medicare patient- Primary Edema of right lower extremity Anxiety and depression Tobacco dependence Tobacco use disorder BMI 40.0-44.9, adult ([facility] Fibromyalgia Unspecified myalgia and myositis Primary hypertension Unspecified essential hypertension COPD mixed type ([facility]) WINSOME (obstructive sleep apnea)- Primary Obstructive sleep apnea (adult) (pediatric) COPD mixed type ([facility]) Primary hypertension Unspecified essential hypertension Fibromyalgia Unspecified myalgia and myositis BMI 40.0-44.9, adult ([facility] Tobacco dependence Tobacco use disorder Mixed hyperlipidemia Mixed hyperlipidemia Vitamin D deficiency Vitamin B12 deficiency Other B-complex deficiencies COPD with acute exacerbation (HCC) COPD with acute exacerbation (HCC)- Primary Morbid (severe) obesity due to excess calories ([facility] Body mass index (BMI) 40.0-44.9, adult ([facility] WINSOME (obstructive sleep apnea) Obstructive sleep apnea (adult) (pediatric) COPD mixed type (HCC) Gastroesophageal reflux disease, unspecified whether esophagitis present Tobacco dependence Tobacco use disorder Gastro-esophageal reflux disease without esophagitis Tremor Abnormal involuntary movements Encounter for subsequent annual wellness visit (AWV) in Medicare patient- Primary Chronic kidney disease, stage 3a ([facility] WINSOME (obstructive sleep apnea) Obstructive sleep apnea (adult) (pediatric) COPD mixed type (HCC) Gastroesophageal reflux disease, unspecified whether esophagitis present Bilateral lower extremity edema Anxiety and depression Tobacco dependence Tobacco use disorder Mixed hyperlipidemia Mixed hyperlipidemia Fibromyalgia Unspecified myalgia and myositis Environmental and seasonal allergies Gastro-esophageal reflux disease without esophagitis Personal history of other diseases of the nervous system and sense organs Screening for lung cancer Acute back pain with sciatica, unspecified laterality- Primary documented in this encounter [facility] HealthcareEvaluation note* Diagnosis Primary hypertension- Primary Unspecified essential hypertension Mixed hyperlipidemia Mixed hyperlipidemia Fibromyalgia Unspecified myalgia and myositis Migraine without aura and without status migrainosus, not intractable Class 3 severe obesity due to excess calories without serious comorbidity with body mass index (BMI) of 40.0 to 44.9 in adult ([facility] Tobacco dependence Tobacco use disorder Bilateral lower extremity edema Acute non-recurrent sinusitis of other sinus COPD mixed type (HCC) Open wound of second toe of left foot, initial encounter Open wound of left foot, initial encounter COPD mixed type (HCC)- Primary Tobacco dependence Tobacco use disorder BMI 40.0-44.9, adult ([facility] Body mass index [BMI] 40.0-44.9, adult (Z68.41) Primary hypertension Unspecified essential hypertension Bilateral lower extremity edema Edema of right lower extremity- Primary BMI 40.0-44.9, adult ([facility] Shortness of breath COPD mixed type ([facility]) Primary hypertension Unspecified essential hypertension Bilateral lower extremity edema Bilateral lower extremity edema- Primary Primary hypertension Unspecified essential hypertension COPD mixed type (HCC) Class 3 severe obesity due to excess calories without serious comorbidity with body mass index (BMI) of 40.0 to 44.9 in adult ([facility] Tobacco dependence Tobacco use disorder Bilateral lower extremity edema- Primary Tobacco dependence Tobacco use disorder BMI 40.0-44.9, adult ([facility] COPD mixed type ([facility]) WINSOME (obstructive sleep apnea) Obstructive sleep apnea (adult) (pediatric) Encounter for subsequent annual wellness visit (AWV) in Medicare patient- Primary Edema of right lower extremity Anxiety and depression Tobacco dependence Tobacco use disorder BMI 40.0-44.9, adult ([facility] Fibromyalgia Unspecified myalgia and myositis Primary hypertension Unspecified essential hypertension COPD mixed type (HCC) WINSOME (obstructive sleep apnea)- Primary Obstructive sleep apnea (adult) (pediatric) COPD mixed type (HCC) Primary hypertension Unspecified essential hypertension Fibromyalgia Unspecified myalgia and myositis BMI 40.0-44.9, adult ([facility] Tobacco dependence Tobacco use disorder Mixed hyperlipidemia Mixed hyperlipidemia Vitamin D deficiency Vitamin B12 deficiency Other B-complex deficiencies COPD with acute exacerbation (HCC) COPD with acute exacerbation (HCC)- Primary Morbid (severe) obesity due to excess calories ([facility] Body mass index (BMI) 40.0-44.9, adult ([facility] WINSOME (obstructive sleep apnea) Obstructive sleep apnea (adult) (pediatric) COPD mixed type (HCC) Gastroesophageal reflux disease, unspecified whether esophagitis present Tobacco dependence Tobacco use disorder Gastro-esophageal reflux disease without esophagitis Tremor Abnormal involuntary movements Encounter for subsequent annual wellness visit (AWV) in Medicare patient- Primary Chronic kidney disease, stage 3a ([facility] WINSOME (obstructive sleep apnea) Obstructive sleep apnea (adult) (pediatric) COPD mixed type ([facility]) Gastroesophageal reflux disease, unspecified whether esophagitis present Bilateral lower extremity edema Anxiety and depression Tobacco dependence Tobacco use disorder Mixed hyperlipidemia Mixed hyperlipidemia Fibromyalgia Unspecified myalgia and myositis Environmental and seasonal allergies Gastro-esophageal reflux disease without esophagitis Personal history of other diseases of the nervous system and sense organs Screening for lung cancer WINSOME (obstructive sleep apnea)- Primary Obstructive sleep apnea (adult) (pediatric) Cigarette smoker Tobacco use disorder documented in this encounter [facility] HealthcareEvaluation note* Diagnosis Primary hypertension- Primary Unspecified essential hypertension Mixed hyperlipidemia Mixed hyperlipidemia Fibromyalgia Unspecified myalgia and myositis Migraine without aura and without status migrainosus, not intractable Class 3 severe obesity due to excess calories without serious comorbidity with body mass index (BMI) of 40.0 to 44.9 in adult ([facility] Tobacco dependence Tobacco use disorder Bilateral lower extremity edema Acute non-recurrent sinusitis of other sinus COPD mixed type ([facility]) Open wound of second toe of left foot, initial encounter Open wound of left foot, initial encounter COPD mixed type (HCC)- Primary Tobacco dependence Tobacco use disorder BMI 40.0-44.9, adult ([facility] Body mass index [BMI] 40.0-44.9, adult (Z68.41) Primary hypertension Unspecified essential hypertension Bilateral lower extremity edema Edema of right lower extremity- Primary BMI 40.0-44.9, adult ([facility] Shortness of breath COPD mixed type ([facility]) Primary hypertension Unspecified essential hypertension Bilateral lower extremity edema Bilateral lower extremity edema- Primary Primary hypertension Unspecified essential hypertension COPD mixed type ([facility]) Class 3 severe obesity due to excess calories without serious comorbidity with body mass index (BMI) of 40.0 to 44.9 in adult ([facility] Tobacco dependence Tobacco use disorder Bilateral lower extremity edema- Primary Tobacco dependence Tobacco use disorder BMI 40.0-44.9, adult ([facility] COPD mixed type ([facility]) WINSOME (obstructive sleep apnea) Obstructive sleep apnea (adult) (pediatric) Encounter for subsequent annual wellness visit (AWV) in Medicare patient- Primary Edema of right lower extremity Anxiety and depression Tobacco dependence Tobacco use disorder BMI 40.0-44.9, adult ([facility] Fibromyalgia Unspecified myalgia and myositis Primary hypertension Unspecified essential hypertension COPD mixed type ([facility]) WINSOME (obstructive sleep apnea)- Primary Obstructive sleep apnea (adult) (pediatric) COPD mixed type (HCC) Primary hypertension Unspecified essential hypertension Fibromyalgia Unspecified myalgia and myositis BMI 40.0-44.9, adult ([facility] Tobacco dependence Tobacco use disorder Mixed hyperlipidemia Mixed hyperlipidemia Vitamin D deficiency Vitamin B12 deficiency Other B-complex deficiencies COPD with acute exacerbation (HCC) COPD with acute exacerbation ([facility])- Primary Morbid (severe) obesity due to excess calories ([facility] Body mass index (BMI) 40.0-44.9, adult ([facility] WINSOME (obstructive sleep apnea) Obstructive sleep apnea (adult) (pediatric) COPD mixed type (HCC) Gastroesophageal reflux disease, unspecified whether esophagitis present Tobacco dependence Tobacco use disorder Gastro-esophageal reflux disease without esophagitis Tremor Abnormal involuntary movements Encounter for subsequent annual wellness visit (AWV) in Medicare patient- Primary Chronic kidney disease, stage 3a ([facility] WINSOME (obstructive sleep apnea) Obstructive sleep apnea (adult) (pediatric) COPD mixed type (HCC) Gastroesophageal reflux disease, unspecified whether esophagitis present Bilateral lower extremity edema Anxiety and depression Tobacco dependence Tobacco use disorder Mixed hyperlipidemia Mixed hyperlipidemia Fibromyalgia Unspecified myalgia and myositis Environmental and seasonal allergies Gastro-esophageal reflux disease without esophagitis Personal history of other diseases of the nervous system and sense organs Screening for lung cancer Acute back pain with sciatica, unspecified laterality- Primary documented in this encounter [facility] Dis[facility] No data available for this section General Surgery [employer] Progress note No data available for this section General Surgery [place] Reason for visit Narrative* Consultation (Routine) - Closed Specialty Diagnoses / Procedures Referred By Jose williamson Referred To Contact Neurology Diagnoses Tremor Procedures TX OFFICE/OUTPATIENT NEW HIGH MDM 60 MINUTES Jaymie Phoenix NP [address] [place] [address] Phone: tel: fax: Saumya Back DO [address] [place] [address] Phone: tel: fax: Referral ID Status Reason Start Date Expiration Date V isits Requested Visits Authorized [id number] Closed Specialty Services Required 02/10/2024 08/08/2024 1 [...] duplex right Jaymie Phoenix NP [address] [place] [address] Referral ID Status Reason Start Date Expiration Date V isits Requested Visits Authorized [id number] Authorized 03/25/2023 09/21/2023 1 1 Additional Source Comments INFORMATION SOURCE (unrecogn ized section and content) DATE CREATED AUTHOR 12/26/2021 [facility] dical Specialist DATE CREATED AUTHOR AUTHOR'S ORGANIZ ATION 03/25/2022 [facility] DATE CREATED AUTHOR AUTHOR'S ORGANIZ ATION 07/17/2022 [facility] DATE CREATED AUTHOR AUTHOR'S ORGANIZ ATION 08/31/2024 [facility] DATE CREATED AUTHOR AUTHOR'S ORGANIZ ATION 09/02/2024 [facility] dical Specialists EPIC Patient Care team informatio n (unrecognized section and content) Manager Of It Relationship Specialty Start Date End Date Jaymie Phoenix NP [address] [place] [address] Nurse Practitioner Family Medicine 01/26/23 Manager Of It Relationship Specialty Start Date End Date Shaikh Marquez MD [address] [place] [address] PCP - General Internal Medicine 03/25/23 Jaymie Phoenix NP [address] [place] [address] Nurse Practitioner Family Medicine 01/26/23 Manager Of It Relationship Specialty Start Date End Date Shaikh Marquez MD [address] [place] [phone] PCP - General Internal Medicine 03/25/23 Jaymie Phoenix NP [address] [place] [address] Nurse Practitioner Family Medicine 01/26/23 Manager Of It Relationship Specialty Start Date End Date Rohan Rodríguez MD [address] [place] [phone] PCP - General Family Medicine 05/13/23 Jaymie Phoenix NP [address] [place] [address] Nurse Practitioner Family Medicine 01/26/23 Jaymie Phoenix NP [address] [place] [address] Nurse Practitioner Family Medicine 05/13/23 Manager Of It Relationship Specialty Start Date End Date Rohan Rodríguez MD [address] [place] [phone] PCP - General Family Medicine 05/13/23 Jaymie Phoenix NP [address] [place] [phone] Nurse Practitioner Family Medicine 01/26/23 Jaymie Phoenix NP [address] [place] [phone] Nurse Practitioner Family Medicine 05/13/23 Manager Of It Relationship Specialty Start Date End Date Rohan Rodríguez MD [address] [place] [phone] PCP - General Family Medicine 05/13/23 Jaymie Phoenix NP [address] [place] [phone] Nurse Practitioner Family Medicine 01/26/23 Jaymie Phoenix NP [address] [place] [phone] Nurse Practitioner Family Medicine 05/13/23 Manager Of It Relationship Specialty Start Date End Date Rohan Rodríguez MD [address] [place] [phone] PCP - General Family Medicine 05/13/23 Jaymie Phoenix NP [address] [place] [phone] Nurse Practitioner Family Medicine 01/26/23 Jaymie Phoenix NP [address] [place] [phone] Nurse Practitioner Family Medicine 05/13/23 Manager Of It Relationship Specialty Start Date End Date Rohan Rodríguez MD [address] [place] [phone] PCP - General Family Medicine 05/13/23 Jaymie Phoenix NP [address] [place] [phone] Nurse Practitioner Family Medicine 01/26/23 Jaymie Phoenix NP [address] [place] [phone] Nurse Practitioner Family Medicine 05/13/23 Manager Of It Relationship Specialty Start Date End Date Rohan Rodríguez MD [address] [place] [phone] PCP - General Family Medicine 05/13/23 Jaymie Phoenix NP [address] [place] [address] Nurse Practitioner Family Medicine 01/26/23 Jaymie Phoenix NP [address] [place] [address] Nurse Practitioner Family Medicine 05/13/23 Manager Of It Relationship Specialty Start Date End Date Rohan Rodríguez MD [address] [place] [phone] PCP - General Family Medicine 05/13/23 Jaymie Phoenix NP [address] [place] [address] Nurse Practitioner Family Medicine 01/26/23 Jaymie Phoenix NP [address] [place] [address] Nurse Practitioner Family Medicine 05/13/23 Manager Of It Relationship Specialty Start Date End Date Rohan Rodríguez MD [address] [place] [phone] PCP - General Family Medicine 05/13/23 Jaymie Phoenix NP [address] [place] [phone] Nurse Practitioner Family Medicine 01/26/23 Jaymie Phoenix NP [address] [place] [address] Nurse Practitioner Family Medicine 05/13/23 Manager Of It Relationship Specialty Start Date End Date Rohan Rodríguez MD [address] [place] [address] PCP - General Family Medicine 05/13/23 Jaymie Phoenix NP [address] [place] [address] Nurse Practitioner Family Medicine 01/26/23 Jaymie Phoenix NP [address] [place] [address] Nurse Practitioner Family Medicine 05/13/23 Manager Of It Relationship Specialty Start Date End Date Rohan Rodríguez MD [address] [place] [address] PCP - General Family Medicine 05/13/23 Jaymie Phoenix NP [address] [place] [address] Nurse Practitioner Family Medicine 01/26/23 Jaymie Phoenix NP [address] [place] [address] Nurse Practitioner Family Medicine 05/13/23 Manager Of It Relationship Specialty Start Date End Date Rohan Rodríguez MD [address] [place] [phone] PCP - General Family Medicine 05/13/23 Jaymie Phoenix NP [address] [place] [phone] Nurse Practitioner Family Medicine 01/26/23 Jaymie Phoenix NP [address] [place] [address] Nurse Practitioner Family Medicine 05/13/23 Manager Of It Relationship Specialty Start Date End Date Rohan Rodríguez MD [address] [place] [address] PCP - General Family Medicine 05/13/23 Jaymie Phoenix NP [address] [place] [address] Nurse Practitioner Family Medicine 01/26/23 Jaymie Phoenix NP [address] [place] [address] Nurse Practitioner Family Medicine 05/13/23 Manager Of It Relationship Specialty Start Date End Date Rohan Rodríguez MD [address] [place] [phone] PCP - General Family Medicine 05/13/23 Jaymie Phoenix NP [address] [place] [address] Nurse Practitioner Family Medicine 01/26/23 Jaymie Phoenix NP [address] [place] [address] Nurse Practitioner Family Medicine 05/13/23 Manager Of It Relationship Specialty Start Date End Date Rohan Rodríguez MD [address] [place] [address] PCP - General Family Medicine 05/13/23 Jaymie Phoenix NP [address] [place] [address] Nurse Practitioner Family Medicine 01/26/23 Jaymie Phoenix NP [address] [place] [address] Nurse Practitioner Family Medicine 05/13/23 Manager Of It Relationship Specialty Start Date End Date Rohan Rodríguez MD [address] [place] [address] PCP - General Family Medicine 05/13/23 Jaymie Phoenix NP [address] [place] [phone] Nurse Practitioner Family Medicine 01/26/23 Jaymie Phoenix NP [address] [place] [address] Nurse Practitioner Family Medicine 05/13/23 Manager Of It Relationship Specialty Start Date End Date Rohna Rodríguez MD [address] [place] [phone] PCP - General Family Medicine 05/13/23 Jaymie Phoenix NP [address] [place] [address] Nurse Practitioner Family Medicine 01/26/23 Jaymie Phoenix NP [address] [place] [address] Nurse Practitioner Family Medicine 05/13/23 Manager Of It Relationship Specialty Start Date End Date Rohan Rodríguez MD [address] [place] [address] PCP - General Family Medicine 05/13/23 Jaymie Phoenix NP [address] [place] [address] Nurse Practitioner Family Medicine 01/26/23 Jaymie Phoenix NP [address] [place] [address] Nurse Practitioner Family Medicine 05/13/23 Manager Of It Relationship Specialty Start Date End Date Rohan Rodríguez MD [address] [place] [address] PCP - General Family Medicine 05/13/23 Jaymie Phoenix NP [address] [place] [address] Nurse Practitioner Family Medicine 01/26/23 Jaymie Phoenix NP [address] [place] [address] Nurse Practitioner Family Medicine 05/13/23 Manager Of It Relationship Specialty Start Date End Date Rohan Rodríguez MD [address] [place] [address] PCP - General Family Medicine 05/13/23 Jaymie Phoenix NP [address] [place] [phone] Nurse Practitioner Family Medicine 01/26/23 Jaymie Phoenix NP [address] [place] [address] Nurse Practitioner Family Medicine 05/13/23 Manager Of It Relationship Specialty Start Date End Date Rohan Rodríguez MD [address] [place] [address] PCP - General Family Medicine 05/13/23 Jaymie Phoenix NP [address] [place] [phone] Nurse Practitioner Family Medicine 01/26/23 Jaymie Phoenix NP [address] [place] [address] Nurse Practitioner Family Medicine 05/13/23 Manager Of It Relationship Specialty Start Date End Date Rohan Rodríguez MD [address] [place] [address] PCP - General Family Medicine 05/13/23 Jaymie Phoenix NP [address] [place] [address] Nurse Practitioner Family Medicine 01/26/23 Jaymie Phoenix NP [address] [place] [address] Nurse Practitioner Family Medicine 05/13/23 Manager Of It Relationship Specialty Start Date End Date Rohan Rodríguez MD [address] [place] [address] PCP - General Family Medicine 05/13/23 Jaymie Phoenix NP [address] [place] [address] Nurse Practitioner Family Medicine 01/26/23 Jaymie Phoenix NP [address] [place] [address] Nurse Practitioner Family Medicine 05/13/23 Manager Of It Relationship Specialty Start Date End Date Rohan Rodríguez MD [address] [place] [address] PCP - General Family Medicine 05/13/23 Jaymie Phoenix NP [address] [place] [address] Nurse Practitioner Family Medicine 01/26/23 Jaymie Phoenix NP [address] [place] [address] Nurse Practitioner Family Medicine 05/13/23 Manager Of It Relationship Specialty Start Date End Date Rohan Rodríguez MD [address] [place] [address] PCP - General Family Medicine 05/13/23 Jaymie Phoenix NP [address] [place] [address] Nurse Practitioner Family Medicine 01/26/23 Jaymie Phoenix NP [address] [place] [address] Nurse Practitioner Family Medicine 05/13/23 Reason for Visit (unrecogniz ed section and content) Reason Comments Med Refill Reason Comments Med Refill Reason Onset Date Comments Med Refill 06/14/2024 Reason Comments Medicare Annual Wellness Visit Initial Reason Comments Med Change Request FOR RECORDS PERTAINING TO PATIENTS WHO ARE [...] BE BASED ON THE PRIMARY CLINICAL RECORDS. Pint Please [facility]. provides no warranty or guarantee of the accuracy or completeness of information in this document.
== END 2024-09-19 14:03 | disposition home or self-care (01) ==
PROVIDERS: PCP Nurse Practitioner; Visit Provider Nurse Practitioner
DX: M48.062 Spinal stenosis, lumbar region with neurogenic claudication (principal); M51.369 Other intervertebral disc degeneration, lumbar region without mention of lumbar back pain or lower extremity pain
CPT/HCPCS: 72114

== ENCOUNTER 2024-10-04 10:48 | Outpatient (OUT) | payer MEDICARE, SELFPAY ==
--- NOTE | 2024-10-04 11:31 | PM.CN ---
Consult Note: HPI Data of Consult Patient: known to practice within the last 3 years Consult date: 10/04/24 Requesting Physician: Jenniffer Vazquez NP Primary Care Provider: Jaymie Phoenix NP Consult Narrative Reason for consult: low back pain and LLE pain Narrative: Gertrudis Gagnon a pleasant 59 year old female presents for evaluation of worsening low back and left leg pain, previous pt of Dr Guidry. denies recent falls or injury. pain increasing over the last 4 months, noting pain today 8/10 aching. pain increased with standing, walking, sitting, lying, stairs, bending, and sleep. pt utilizing pregabalin 100mg bid, flexeril 10mg TID PRN without side effects. since last visit has had severe LLE pain and tingling. cc:: CC: Jenniffer Vazquez NP Review of Systems ROS Musculoskeletal Reports: back pain, extremity pain and joint pain PFSH PFSH Medical History Tobacco abuse ?Z72.0 - Tobacco use (ICD-10) COPD (chronic obstructive pulmonary disease) ?J44.9 - Chronic obstructive pulmonary disease, unspecified (ICD-10) Anxiety ?F41.9 - Anxiety disorder, unspecified (ICD-10) Depression ?F32.A - Depression, unspecified (ICD-10) High cholesterol ?E78.00 - Pure hypercholesterolemia, unspecified (ICD-10) HTN (hypertension) ?I10 - Essential (primary) hypertension (ICD-10) Family History Other Family history not known due to adoption Social History Within the past year, how often did you have a drink containing alcohol: monthly or less Within the past year, how many standard drinks containing alcohol did you have on a typical day: 1 or 2 Total score: 0 Score interpretation: A score less than 3 is consistent with normal alcohol consumption. Smoking status: Current every day smoker Non-prescribed substance use: denies use Previous occupational history: retired Are you now , , , , never or living with a partner: In a typical week, how many times do you talk on the telephone with family, friends, or neighbors: 3 or more times per week How often do you get together with friends or relatives: 3 or more times per week Little interest or pleasure in doing things: not at all Feeling down, depressed, or hopeless: not at all Feel stressed/tense/nervous/anxious/difficulty sleeping: not at all Do you think of yourself as: straight/heterosexual Gender Identity: female Meds Home Medications and Allergies Home Medications ?Medication ?Instructions ?Recorded ?Confirmed ?Type albuterol sulfate 2.5 mg/3 mL 1.25 mg (1.5 mL) inhalation Q6H 12/24/23 06/28/24 Rx (0.083 %) solution for nebulization PRN shortness of breath or wheezing #90 mL amitriptyline 100 mg tablet 100 mg PO QPM 12/25/23 06/28/24 History lamotrigine 150 mg tablet 150 mg PO DAILY 12/25/23 06/28/24 History lamotrigine 200 mg tablet 200 mg PO QPM 12/25/23 06/28/24 History meloxicam 15 mg tablet 15 mg PO QAM 12/25/23 06/28/24 History Held on 12/28/23. Instructions: Resume on 01/04/24. hold while taking medrol dose pack omeprazole 40 mg capsule,delayed 40 mg PO DAILY 12/25/23 06/28/24 History release prazosin 2 mg capsule 2 mg PO QPM 12/25/23 06/28/24 History pregabalin 100 mg capsule 75 mg PO BID 12/25/23 09/14/24 History propranolol 40 mg tablet 40 mg PO BID 12/25/23 06/28/24 History quetiapine 100 mg tablet 300 mg PO DAILY 12/25/23 06/28/24 History spironolactone 50 mg tablet 50 mg PO QAM 12/25/23 06/28/24 History prazosin 1 mg capsule mg 06/28/24 History cariprazine 4.5 mg capsule 4.5 mg PO DAILY 09/14/24 09/14/24 History ([place]) cyclobenzaprine 10 mg tablet 10 mg PO TID PRN muscle spasm #90 09/14/24 Rx tabs simvastatin 40 mg tablet 40 mg PO DAILY 09/14/24 09/14/24 History Allergies Allergy/AdvReac Type Severity Reaction Status Date / Time prednisone Allergy Severe Anaphylaxis Verified 06/28/24 11:28 Penicillins AdvReac Severe Anaphylaxis Verified 06/28/24 11:28 Exam Constitutional Documenting provider has reviewed patient's vital signs: yes Common normals: no apparent distress, oriented x3, healthy appearing, alert and well nourished General appearance: cooperative HENMT Common normals: normocephalic, hearing grossly normal bilaterally and moist oral mucous membranes Head and scalp: normocephalic Eye Common normals: PERRL Pupil: PERRL Neck & C-Spine Common normals: full ROM General: normal visual inspection Chest Common normals: inspection of chest normal Respiratory Common normals: normal respiratory effort, no retractions and no use of accessory muscles Back & Pelvis Lumbar spine/lower back: pain with ROM, lumbar spinal tenderness and straight leg raise positive left Sacroiliac joints: SI joint(s) abnormal Other: decreased sensation left L4,5,S1 strength 4/5 in LLE and 5/5 in RLE left sij positive natasha(patricks), gaenslens, thigh thrust, compression test Neuro Common normals: oriented x3 Sensorium/orientation: alert Psych Common normals: mental status grossly normal, thought process normal, cooperative, affect normal, speech normal and activity/motor behavior normal Speech: normal speech Thought process: normal thought process Results Additional Findings Additional findings: If on a controlled substance or opioids, I have checked an [place] report on this patient and there are no aberrancies noted in the prescribing history.??If on a controlled substance or opioid a drug screen was completed and reviewed within the last year, and if there has not been a drug screen completed we ordered one today to monitor higher risk, state monitored pain medication use. As part of providing excellent, safe, comprehensive care, the following was completed at our patient's visit: 1. A medication reconciliation and review to ensure accurate knowledge of current/active medications, including asking our patients to inform us about any [id number] medications or herbal remedies/nutritional supplements/alternative remedies. 2. A review to specifically ensure our patients have had annual screening for screening for depression, screening for tobacco use, and screening for unhealthy alcohol use. For concerning screenings had a discussion with the patient, provided patient education, and recommended follow-up with primary care provider when appropriate. If patient noted with a risk of falling, they received education on strength, gait, and balance training to prevent future risk of falling. Portions of this note may have been carried over from the previous visit and updated as appropriate. Please note this office utilizes paper charting in addition to the electronic medical record. A list of current medications, vitals, and PMH is available there as the clinical staff outside of myself do not have access to [employer] charting during the clinic day operations. As part of providing quality comprehensive care the current medications, vitals, and PMH were reviewed in the paper chart. Assessment and Plan Assessment and Plan (1) Lumbar stenosis with neurogenic claudication: (2) Sacroiliitis: (3) Myalgia, other site: (4) Degenerative disc disease (DDD) of lumbar region with axial back pain and referred sclerotomal pain: Plan 59 year old female with acute on chronic low back pain and LLE pain, worsening since last visit could not attempt PT due to severe pain. lumbar xray completed consistent with degenerative changes most significant L4-5 DDD. at this time update lumbar MRI without contrast to assess severe low back and LLE pain secondary to lumbar DDD, lumbar radiculopathy, and lumbar stenosis with NC unresponsive to heat, ice, tylenol, NSAIDs. increase flexeril 15mg tid prn pain/spasms, start medrol dose pack for acute on chronic pain while we await MRI to decide on internveiontal therapy vs NS consultation.
--- OUTSIDE RECORDS SUMMARY | 2024-10-04 11:32 | XMS_ITS | CCD ---
Author Organization [facility] Care Team Providers Care [employer]ating [employer] Supervisor Name Role Phone JAYMIE PHOENIX Primary Care Physician [phone] Bryson SAMPSON Attending Unavailable JAYMIE PHOENIX J Referring Unavailabl e NILL, Bryson Hernandez Attending Unavailable Aichholz, Tracy L Referring Unavailable NILL, Bryson Hernandez Attending Unavailable NILL, Bryson Hernandez Attending Unavailable NILL, Bryson Hernandez Attending Unavailable AICHHOLZ, HEADER SET UP OPERATOR JAYMIE Primary Care Unavailable ALLAN ., DR JIM Mcdonnell Attending Unavailable ALLAN ., DR JIM Mcdonnell Admitting Unavailable ALLAN ., DR JIM Mcdonnell Consulting Unavailable ROBINSON ., GLENROY Admitting Unavailable ROBINSON ., GLENROY Attending Unavailable SJ SOLER Consulting Unavailable AICHHOLZ, HEADER SET UP OPERATOR JAYMIE Primary Care Unavailable MENDEZ ., MR DEMETRIUS Admitting Unavailable MENDEZ ., MR DEMETRIUS Attending Unavailable AICHHOLZ, HEADER SET UP OPERATOR JAYMIE Primary Care Unavailable AICHHOLZ, HEADER SET UP OPERATOR JAYMIE Admitting Unavailable JUANITA, DR NADINE [place] Consulting Unavailable AICHHOLZ, HEADER SET UP OPERATOR JAYMIE Primary Care Unavailable AICHHOLZ, HEADER SET UP OPERATOR JAYMIE Attending Unavailable AICHHOLZ, HEADER SET UP OPERATOR JAYMIE Consulting Unavailable AICHHOLZ, HEADER SET UP OPERATOR JAYMIE Admitting Unavailable JUANITA, DR NADINE [place] Consulting Unavailable AICHHOLZ, HEADER SET UP OPERATOR JAYMIE Primary Care Unavailable AICHHOLZ, HEADER SET UP OPERATOR JAYMIE Attending Unavailable AICHHOLZ, HEADER SET UP OPERATOR JAYMIE Consulting Unavailable AICHHOLZ, HEADER SET UP OPERATOR JAYMIE Primary Care Unavailable NILL ., DR MASSEY Admitting Unavailable NILL ., DR MASSEY Attending Unavailable NILL ., DR MASSEY Consulting Unavailable SONDRA FELICIANO Consulting Unavailable ROBINSON ., GLENROY Admitting Unavailable ROBINSON ., GLENROY Attending Unavailable ROBINSON ., GLENROY Consulting Unavailable AICHHOLZ, HEADER SET UP OPERATOR JAYMIE Primary Care Unavailable ALLAN ., DR JIM Mcdonnell Attending Unavailable ALLAN ., DR JIM Mcdonnell Consulting Unavailable ALLAN ., DR JIM Mcdonnell Admitting Unavailable AICHHOLZ, HEADER SET UP OPERATOR JAYMIE Primary Care Unavailable MARIA FERNANDA SOSA Consulting Unavailable ALLAN ., DR JIM Mcdonnell Attending Unavailable ALLAN ., DR JIM Mcdonnell Consulting Unavailable ALLAN ., DR JIM Mcdonnell Admitting Unavailable AICHHOLZ, HEADER SET UP OPERATOR JAYMIE Primary Care Unavailable ALLAN ., DR JIM Mcdonnell Admitting Unavailable ALLAN ., DR JIM Mcdonnell Attending Unavailable ALLAN ., DR JIM Mcdonnell Consulting Unavailable AICHHOLZ, HEADER SET UP OPERATOR JAYMIE Primary Care Unavailable ALLAN ., DR JIM Mcdonnell Admitting Unavailable ALLAN ., DR JIM Mcdonnell Attending Unavailable AICHHOLZ, HEADER SET UP OPERATOR JAYMIE Primary Care Unavailable THORNE ., JENNY Consulting Unavailable ALLAN ., DR JIM Mcdonnell Admitting Unavailable ALLAN ., DR JIM Mcdonnell Attending Unavailable ALLAN ., DR JIM Mcdonnell Consulting Unavailable AICHHOLZ, HEADER SET UP OPERATOR JAYMIE Primary Care Unavailable ALLAN ., DR JIM Mcdonnell Admitting Unavailable ALLAN ., DR JIM Mcdonnell Attending Unavailable ALLAN ., DR JIM Mcdonnell Consulting Unavailable AICHHOLZ, HEADER SET UP OPERATOR JAYMIE Primary Care Unavailable THORNE ., JENNY Consulting Unavailable ALLAN ., DR JIM Mcdonnell Admitting Unavailable ALLAN ., DR JIM Mcdonnell Attending Unavailable AICHHOLZ, HEADER SET UP OPERATOR JAYMIE Primary Care Unavailable ALLAN ., DR JIM Mcdonnell Attending Unavailable ALLAN ., DR JIM Mcdonnell Consulting Unavailable ALLAN ., DR JIM Mcdonnell Admitting Unavailable AICHHOLZ, HEADER SET UP OPERATOR JAYMIE Primary Care Unavailable LAKSHMIPATHY ., NARENDRANEDWAR Consulting Evelyn vailable NILL ., DR MASSEY Consulting Unavailable NILL ., DR MASSEY Admitting Unavailable AICHHOLZ, HEADER SET UP OPERATOR JAYMIE Primary Care Unavailable NILL ., DR MASSEY Attending Unavailable AICHHOLZ, HEADER SET UP OPERATOR JAYMIE Admitting Unavailable AICHHOLZ, HEADER SET UP OPERATOR JAYMIE Attending Unavailable AICHHOLZ, HEADER SET UP OPERATOR JAYMIE Consulting Unavailable AICHHOLZ, HEADER SET UP OPERATOR JAYMIE Primary Care Unavailable DR MELISSA ROSENBERG Consulting Unavailable AICHHOLZ, HEADER SET UP OPERATOR JAYMIE Admitting Unavailable AICHHOLZ, HEADER SET UP OPERATOR JAYMIE Attending Unavailable AICHHOLZ, HEADER SET UP OPERATOR JAYMIE Consulting Unavailable AICHHOLZ, HEADER SET UP OPERATOR JAYMIE Primary Care Unavailable LORI FROST Consulting Unavailable ALLAN ., DR JIM Mcdonnell Attending Unavailable ALLAN ., DR JIM Mcdonnell Admitting Unavailable AICHHOLZ, HEADER SET UP OPERATOR JAYMIE Primary Care Unavailable AICHHOLZ, HEADER SET UP OPERATOR JAYMIE Primary Care Unavailable SAMSA ., MAGDALENA Admitting Unavailable SAMSA ., MAGDALENA Attending Unavailable SAMSA ., MAGDALENA Consulting Unavailable ALLAN ., DR JIM Mcdonnell Attending Unavailable JERRELL ., DR JIM Mcdonnell Admitting Unavailable JERRELL ., DR JIM Mcdonnell Consulting Unavailable AICHARI, MEREDITH JAYMIE Primary Care Unavailable AICHHOLHomer, HEADER SET UP OPERATOR JAYMIE Admitting Unavailable AICHHOLZ, HEADER SET UP OPERATOR JAYMIE Attending Unavailable AICHHOLZ, HEADER SET UP OPERATOR JAYMIE Consulting Unavailable AICHHOLZ, HEADER SET UP OPERATOR JAYMIE Primary Care Unavailable Aichholz MICROBIOLOGICAL LABORATORY TECHNICIAN, Jaymie Unavailable Alma AMADOR, Primary Care Provider Aicholhomer MICROBIOLOGICAL LABORATORY TECHNICIAN, Jaymie Unavailable Rohan Rodríguez MD Primary Care Provider [phone] Aicholhomer MICROBIOLOGICAL LABORATORY TECHNICIAN, Jaymie Unavailable Alphonse Damian Attending Unavailab Alphonse [...] Hives, Shortness of breath, Swelling General [facility] [place] (2 sources) predniSONE; Translations: [prednisone] Drug Allergy Dyspnea (finding) General Surgery [place] (1 source) prednisoLONE Drug Allergy [facility] Rep[facility] (20 sources) Prednisone Propensity to adverse reactions 3 Itching [facility] Medications Current Medications Medication Drug Class(es) Dates Sig (Normalized) Sig (Original) acetaminophen 325 mg / HYDROcodone bitartrate 5 mg oral tablet (3 sources) Opioid Agonist Start: 08-29-2024 End: 09-08-2024 take 1 tablet by mouth once HYDROcodone-acetam inophen ([place]) 5-325 MG tablet Indications: Acute back pain with sciatica, unspecified laterality Take 1 tablet by mouth every 12 (twelve) hours if needed for severe pain for up to 10 days 20 tablet 08/29/2024 09/08/2024 Active [id number] 200 actuat albuterol 0.09 mg/actuat metered dose [...] mg) by mouth at bedtime 30 tablet 2 09/29/2024 10/29/2024 Active Start: 05-18-2023 End: 02-02-2024 take [...] take 2 puff(s) by inhalation at bedtime Kvydbil-Akoorkxmzup-Uvtgktczic (Breztri Aerosphere) 160-9-4.8 MCG/ACT aerosol Indications: COPD [...] Active cetirizine hydrochloride 10 mg oral tablet (17 sources) Histamine-1 Receptor Antagonist Start: 04-19-2024 End: 10-29-2024 take 1 tablet by mouth once daily cetirizine (ZyrTEC) 10 MG tablet Indications: Environmental and seasonal allergies Take 1 tablet (10 mg) by mouth Daily 90 tablet 1 07/31/2024 10/29/2024 Active cholecalciferol 0.125 mg oral tablet (20 sources) Vitamin D cholecalciferol (Vitamin D-3) 125 MCG (5000 UT) tablet as directed Orally Active cyclobenzaprine hydrochloride 10 mg oral tablet (2 sources) Muscle Relaxant take 5 mg by mouth three times daily as needed for muscle spasms cyclobenzaprine (Flexeril) 10 MG tablet Indications: Fibromyalgia Syndrome , Muscle Spasm Take 5 mg by mouth 3 (three) times a day as needed for muscle spasms Active ibuprofen 800 mg oral tablet (20 [...] sources) Nonsteroidal Anti-inflammatory Drug Start: 12-05-19 End: 10-30-19 take 1 tablet by mouth once daily meloxicam (Mobic) 15 MG tablet Indications: Fibromyalgia Take 1 tablet (15 mg) by mouth Daily 30 tablet 2 09/29/2024 10/29/2024 Active Start: 03-15-2023 End: 04-14-2023 take 1 [...] 1 capsule (40 mg) by mouth Daily 30 capsule 2 09/29/2024 10/29/2024 Active Start: 01-22-2022 take 1 capsule [...] mg) before bedtime. 60 capsule 2 07/31/2024 Active Start: 06-28-2023 take 1 capsule by [...] (20 sources) Aldosterone Antagonist Start: 01-26-2024 End: 10-29-2024 take 1 tablet by mouth in the morning spironolactone (Aldactone) 50 MG tablet Indications: Localized edema Take 1 tablet (50 mg) by mouth in the morning. 30 tablet 2 09/29/2024 10/29/2024 Active Start: 09-24-2023 take 1 tablet by [...] Central alpha-2 Adrenergic Agonist Start: 01-03-2024 End: 10-29-2024 take 1 tablet by mouth once tiZANidine (Zanaflex) 4 MG tablet Indications: Fibromyalgia Take 1 tablet (4 mg) by mouth every 12 (twelve) hours if needed for muscle spasms 60 tablet 2 09/29/2024 10/29/2024 Active Start: 05-05-2023 End: 01-03-2024 take 1 [...] 1mg twice a day 53 each 08/06/2024 Active Start: 06-26-2024 End: 08-30-2024 take 1 [...] Onset: 4 01-22-2022 Chronic Chronic kidney disease (15 sources) Chronic kidney disease stage 3A ; [...] 4 02-18-2023 Chronic Other connective tissue disease (20 sources) Fibromyalgia; [...] 2 02-03-2022 Episodic Other upper respiratory disease (18 sources) Allergic disposition; Translations: [Other allergic rhinitis] Onset: 5 04-19-2024 Chronic Residual codes; unclassified (1 source) Sleep apnea, unspecified; Translations: [SLEEP APNEA UNSPECIFIED] Onset: 2 Chronic Residual codes; unclassified (20 sources) Obstructive sleep apnea syndrome; Translations: [Obstructive sleep apnea (adult) (pediatric)] Onset: 4 05-13-2023 Chronic Residual codes; unclassified (2 sources) Localized edema; Translations: [Localized edema] 04-08-2024 Episodic [...] 01-26-2023 Episodic Other aftercare (1 source) Other shelter (current) drug therapy; Translations: [OTH SPRINKLER 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 DRUG THERAPY] Onset: 3 Episodic Other [...] Test Name Value Interpretation Reference Range Facility XR LUMBAR SPINE 6V W BENDING on 09-19-2024 [place] [address] XRay Report Signed Patient: FRANKY SRINIVASAN I MR#: [id number] : 1965 Acct:[id number] Age/Sex: 59 / F ADM Date: 09/19/24 Loc: RAD Attending Dr: Estelle Vazquez NP Ordering Physician: Estelle Vazquez NP Date of Service: 09/19/24 Procedure(s): XR lumbar spine 6V w bending Accession Number(s): [id number] cc: Jaymie Phoenix NP; Estelle Vazquez NP [place] [address] Patient Name: FRANKY SRINIVASAN MRN: [facility]:[id number] date: 1965 Sex: F Assigned Patient Location: [facility] Current Patient Location: [facility] Accession/Order Number: [id number] Exam Date: 09/19/2024 14:32 Report Date: 09/19/2024 14:33 At the request of: ESTELLE VAZQUEZ NP Procedure: XR lumbar spine 6V w bending LUMBAR SPINE - 6 views CLINICAL HISTORY: Lumbar stenosis COMPARISON: None FINDINGS: Vertebral heights appear maintained. Mild diffuse degenerative disc disease with relative sparing of L4-L5 disc level.. No pathological motion on flexion or extension views. SI joints demonstrate degenerative change. XR/XR lumbar spine 6V w bending IMPRESSION: MILD DIFFUSE DEGENERATIVE DISC DISEASE WITH RELATIVE SPARING OF THE L4-L5 DISC LEVEL. Impression dictated by: Joaquin Chatman Jr., D.O. 09/19/2024 2:33 PM Dictation Location: [place] [address] Electronically authenticated by: [id number] Y Date: 09/19/2024 14:33 Dictated By: Joaquin Chatman M.D. Signed By: 09/19/24 1436 DD/ 32 TD/TT: Pediatric Ophthalmologist: [facility] Radiology, Radiologist, - 09/19/2024 [place] [address] XRay Report Signed Patient: FRANKY SIRNIVASAN I MR#: [id number] : 1965 Acct:[id number] Age/Sex: 59 / F ADM Date: 09/19/24 Loc: RAD Attending Dr: Estelle Vazquez NP Ordering Physician: Estelle Vazquez NP Date of Service: 09/19/24 Procedure(s): XR lumbar spine 6V w bending Accession Number(s): [id number] cc: Jaymie Phoenix MICROBIOLOGICAL LABORATORY TECHNICIAN; Estelle Vazquez NP [place] [address] Patient Name: FRANKY SRINIVASAN MRN: [id number] date: 1965 Sex: F Assigned Patient Location: [facility] Current Patient Location: [facility] Accession/Order Number: [id number] Exam Date: 09/19/2024 14:32 Report Date: 09/19/2024 14:33 At the request of: ESTELLE VAZQUEZ NP Procedure: XR lumbar spine 6V w bending LUMBAR SPINE - 6 views CLINICAL HISTORY: Lumbar stenosis COMPARISON: None FINDINGS: Vertebral heights appear maintained. Mild diffuse degenerative disc disease with relative sparing of L4-L5 disc level.. No pathological motion on flexion or extension views. SI joints demonstrate degenerative change. XR/XR lumbar spine 6V w bending IMPRESSION: MILD DIFFUSE DEGENERATIVE DISC DISEASE WITH RELATIVE SPARING OF THE L4-L5 DISC LEVEL. Impression dictated by: Joaquin Chatman Jr., D.O. 09/19/2024 2:33 PM Dictation Location: [place] [address] Electronically authenticated by: [id number] Y Date: 09/19/2024 14:33 Dictated By: Joaquin Chatman M.D. Signed By: 09/19/241435 DD/ 32 TD/TT: Pediatric Ophthalmologist: [facility] Radiology Study observation (narrative) [facility] XR LUMBAR SPINE 6V W BENDING Ordered By: Radiologist Radiology on 09-19-2024 [facility] Work Phone: [facility] MICROALB CREAT RATIO RAN BRAULIOon 01-27-2024 CREATININE URINE RANDOM 235.95 mg/dL 20.00 - 300.00 mg/dL [facility] MICROALBUMIN URINE RANDOM <1.3 NINF - 30.0 mg/dL [facility] ALL BASIC METABOLIC PANELon 01-24-2024 Anion gap [Moles/Vol] 11.6 mmol/L [facility] Calcium [Mass/Vol] 8.9 mg/dL 8.5 - 10. 1 mg/dL [facility] Chloride [Moles/Vol] 103 mmol/L 98 - 10 7 mmol/L [facility] CO2 [Moles/Vol] 31.6 mmol/L 21.0 - 32.0 mmol/L [facility] Creatinine [Mass/Vol] 1.17 mg/dL High 0.55 - 1.02 mg/dL [facility] GFR/1.73 sq M.predicted CKD-EPI (S/P/Bld) [Vol rate/Area] 57 Low >=60 mL/min/1.73m 2 [facility] Glucose [Mass/Vol] 118 mg/dL High 74 - 106 mg/dL [facility] Potassium [Moles/Vol] 4.2 mmol/L 3.5 - 5.1 mmol/L [facility] Sodium [Moles/Vol] 142 mmol/L 136 - 145 mmol/L [facility] TBH EGFR-NON AF TURKMEN 47 Low >=60 mL/min/1.73m 2 [facility] Urea nitrogen [Mass/Vol] 12 mg/dL 7.0 - 18.0 mg/dL [facility] Urea nitrogen/Creatinine [Mass ratio] 10.3 mg/mg [facility] ALL LIPID PROFILE (FASTING)o n 01-24-2024 CHOL HDL RATIO 2.9 [facility] Comment on above: 3.3 - 4.4 LOW RISK 4.4 - 7.1 AVERAGE RISK 7.1 - 11.0 MODERATE RISK >11.0 HIGH RISK Cholesterol [Mass/Vol] 152 mg/dL NINF - 200 mg/dL [facility] Cholesterol in HDL [Mass/Vol] 52 mg/dL 40 - 60 mg/dL [facility] Comment on above: > or =60 mg/dl - LOW CARDIOVASCULAR RISK <40 mg/dl - HIGH CARDIOVASCULAR RISK Magnesium [Mass/Vol] 70 mg/dL [facility] Comment on above: <100 mg/dl OPTIMAL 100-129 mg/dl NEAR OR ABOVE OPTIMAL 130-159 mg/dl BORDERLINE HIGH 160-189 mg/dl HIGH >190 mg/dl VERY HIGH Magnesium [Mass/Vol] 30.8 mg/dL [facility] Triglyceride [Mass/Vol] 154 mg/dL High NINF - 150 mg/dL [facility] No Panel Informationon 01-23 Interpretation and review of laboratory results Abnormal [facility] BLOOD GASES BTYon 07-08-2022 02 MODE ROOM AIR Normal [facility] Comment on above: Performed By: #### A BG ####[facility] [address] [place] [address]Dr. Phani El ALLENS TEST Positive Normal [facility] Comment on above: Performed By: #### A BG ####[facility] [address] [place], [place] [address]Dr. Phani El Base excess Calc (Bld) [Moles/Vol] 1.4 mmol/L Normal -2.0-2.0 [facility] Comment on above: Performed By: #### A BG ####[facility] [address] [place], [place] [address]Dr. Phani El BIPAP PRESSURE Normal [facility] Comment on above: Performed By: #### A BG ####[facility] [address] [place], [place] [address]Dr. Phani El CPAP Normal [facility] Comment on above: Performed By: #### A BG ####[facility] [address] [place], [place] [address]Dr. Phani El FIO2 Normal [facility] Comment on above: Performed By: #### A BG ####[facility] [address] [place], [place] [address]Dr. Phani El HCO3 (Bld) [Moles/Vol] 26.2 mmol/L Critically high 22.0-26.0 [facility] Comment on above: Performed By: #### A BG ####[facility] [address] [place], [place] [address]Dr. Phani El LPM Normal [facility] Comment on above: Performed By: #### A BG ####[facility] [address] [place] [address]Dr. Phani El MINUTE VOLUME Normal [facility] Comment on above: Performed By: #### A BG ####[facility] [address] [place] [address]Dr. Phani El Oxygen (Bld) [Partial pressure] 56.1 mm[Hg] Critically low 80.0-100.0 [facility] Comment on above: Performed By: #### A BG ####[facility] [address] [place], [place] [address]Dr. Phani El Oxygen saturation in Blood 92.0 % Critically low 95.0-100.0 [facility] Comment on above: Performed By: #### A BG ####[facility] [address] [place], [place] [address]Dr. Phani El PCO2 42.6 mmHg Normal 35.0-45.0 [facility] Comment on above: Performed By: #### A BG ####[facility] [address] [place], [place] [address]Dr. Phani El PEEP [facility] Comment on above: Performed By: #### A BG ####[facility] [address] [place], [place] [address]Dr. Phani El pH (Bld) 7.398 [pH] Normal 7.350-7.450 [facility] Comment on above: Performed By: #### A BG ####[facility] [address] [place], [place] [address]Dr. Phani El PIP [facility] Comment on above: Performed By: #### A BG ####[facility] [address] [place], [place] [address]Dr. Phani El PS Normal [facility] Comment on above: Performed By: #### A BG ####[facility] [address] [place], [place] [address]Dr. Phani El PUNCTURE SITE RR Normal [facility] Comment on above: Performed By: #### A BG ####[facility] [address] [place], [place] [address]Eb. Phani El RATE Normal [facility] Comment on above: Performed By: #### A BG ####[facility] [address] [place], [place] [address]Dg. Phani El VENT MODE Normal [facility] Comment on above: Performed By: #### A BG ####[facility] [address] [place], [place] [address]Da. Phani El VT Normal [facility] Comment on above: Performed By: #### A BG ####[facility] [address] [place], [place] [address]Zw. Phani El ECHOCARDIO M/2D COMPLETEon 0 07-08-2022 ECHOCARDIO M/2D COMPLETE Patient: FRANKY SRINIVASAN I. Exam Date: 07/08/2022 : 1965 Gender:F Ordering : DR. MAGDALENA DOWNING . Admission #: [id number] Family : MEREDITH PHOENIX [facility] Order #: [id number] CLICK HERE TO VIEW EXAM ECHOCARDIOGRAM REPORT [...] Garcia M.D. on 07/08/2022 at 18:14 Normal [facility] CT LUNG CANCER SCREENINGon 0 [...] by: MELISSA ROSENBERG Date: 2022-05-29 09:36 Normal [facility] CBC AUTO DIFFon 05-05-2022 BASO # 0.1 103/ul Normal 0.0-0.1 [facility] Comment on above: Performed By: #### C BC #### [facility] [address] [place] [address] Dr. Phani El Basophils/100 WBC (Bld) 0.8 % Normal 0.2-2.0 [facility] Comment on above: Performed By: #### C BC #### [facility] [address] [place] [address] Dr. Phani El EO # 0.1 103/ul Normal 0.0-0.7 [facility] Comment on above: Performed By: #### C BC #### [facility] [address] [place] [address] Dr. Phani El Eosinophils/100 WBC (Bld) 2.0 % Normal 0.9-7.0 [facility] Comment on above: Performed By: #### C BC #### [facility] [address] [place] [address] Dr. Phani El Erythrocyte distribution width (RBC) [Ratio] 14.0 % Normal 11.0-15.0 [facility] Comment on above: Performed By: #### C BC #### [facility] [address] [place] [address] Dr. Phani El Hematocrit (Bld) [Volume fraction] 48.7 % Critically high 36.0-48.0 [facility] Comment on above: Performed By: #### C BC #### [facility] [address] [place] [address] Dr. Phani El Hemoglobin (Bld) [Mass/Vol] 15.9 g/dL Normal 12.0-16.0 [facility] Comment on above: Performed By: #### C BC #### [facility] [address] [place] [address] Dr. Phani El IG # 0.05 10e3/ul Critically high 0.00-0.03 [facility] Comment on above: Performed By: #### C BC #### [facility] [address] [place] [address] Dr. Phani lE IG % 0.8 % Critically high 0.0-0.5 [facility] Comment on above: Performed By: #### C BC #### [facility] [address] [place] [address] Dr. Phani El LYMPH # 1.9 103/ul Normal 1.2-3.8 [facility] Comment on above: Performed By: #### C BC #### [facility] [address] [place] [address] Dr. Phani El Lymphocytes/100 WBC (Bld) 30.1 % Normal 20.5-60.0 [facility] Comment on above: Performed By: #### C BC #### [facility] [address] [place] [address] Dr. Phani El MANUAL DIFF REQ NO Normal [facility] Comment on above: Performed By: #### C BC #### [facility] [address] [place] [address] Dr. Phani El MCH (RBC) [Entitic mass] 32.9 pg Normal 26.7-34.0 [facility] Comment on above: Performed By: #### C BC #### [facility] [address] [place] [address] Dr. Phani El MCHC (RBC) [Mass/Vol] 32.6 g/dL Normal 29.9-35.2 [facility] Comment on above: Performed By: #### C BC #### [facility] [address] [place] [address] Dr. Phani El MCV (RBC) [Entitic vol] 100.8 fL Critically high 81.0-99.0 [facility] Comment on above: Performed By: #### C BC #### [facility] [address] [place] [address] Dr. Phani El MONO # 0.5 103/ul Normal 0.3-0.8 [facility] Comment on above: Performed By: #### C BC #### [facility] [address] [place] [address] Dr. Phani El Monocytes/100 WBC (Bld) 7.2 % Normal 1.7-12.0 [facility] Comment on above: Performed By: #### C BC #### [facility] [address] [place] [address] [address] Phani El NEUT # 3.8 103/ul Normal 1.4-6.5 [facility] Comment on above: Performed By: #### C BC #### [facility] [address] [place] [address] [address] Phani El Neutrophils/100 WBC (Bld) 59.1 % Normal 43.0-75.0 [facility] Comment on above: Performed By: #### C BC #### [facility] [address] [place] [address] [address] Phani El Platelet mean volume (Bld) [Entitic vol] 11.0 fL Normal 9.5-13.5 [facility] Comment on above: Performed By: #### C BC #### [facility] [address] [place] [address] Dr. Phani El PLT 167 103/ul Normal 150-450 [facility] Comment on above: Performed By: #### C BC #### [facility] [address] [address] [address] Phani El RBC 4.83 106/ul Normal 4.20-5.40 [facility] Comment on above: Performed By: #### C BC #### [facility] [address] [address] [address] Phani El WBC 6.4 103/ul Normal 4.0-11.0 [facility] Comment on above: Performed By: #### C BC #### [facility] [address] [address] [address] Phani El GLYCOHEMOGLOBIN A1Con 2022 ADA RECOMMENDATION SEE BELOW Normal [facility] Comment on above: Result Comment: ADA RECOMMENDED LIMIT 4.0 - 6.0 ADA THERAPEUTIC TARGET < 7.0 ACTION SUGGESTED > 7.0 Performed By: #### A 1C ####[facility] [address] [address]Dr. Phani El Glucose [Mass/Vol] 114 mg/dL Normal [facility] Comment on above: Performed By: #### A 1C ####[facility] [address] [address]Dr. Phani El HbA1c (Bld) [Mass fraction] 5.6 % Normal 4.5-6.2 [facility] Comment on above: Performed By: #### A 1C ####[facility] [address] [address]Dr. Phani El LIPID PROFILEon 05-05-2022 CHOL-HDL RATIO NORM SEE BELOW Normal [facility] Comment on above: Result Comment: 3.3 - 4.4 LOW RISK 4.4 - 7.1 AVERAGE RISK 7.1 - 11.0 MODERATE RISK >11.0 HIGH RISK Performed By: #### C MP, LIPID #### [facility] [address] [address] [address] Phani El Cholesterol [Mass/Vol] 178 mg/dL Normal <=200 [facility] Comment on above: Performed By: #### C MP, LIPID #### [facility] [address] [address] [address] Phani El Cholesterol in HDL [Mass/Vol] 54 mg/dL Normal 40-60 [facility] Comment on above: Performed By: #### C MP, LIPID #### [facility] [address] [address] [address] Phani El Cholesterol in LDL [Mass/Vol] 86.6 mg/dL Normal [facility] Comment on above: Performed By: #### C MP, LIPID #### [facility] [address] [address] [address] Phani El Cholesterol.total/Ch olesterol in HDL [Mass ratio] 3.3 {ratio} Normal [facility] Comment on above: Performed By: #### C MP, LIPID #### [facility] [address] [address] [address] Phani El HDL NORMAL > or = 60 mg/dl - LO W CARDIOVASCULAR RISK <40 mg/dl - HIGH CARDIOVASCULAR RISK Normal [facility] Comment on above: Performed By: #### C MP, LIPID #### [facility] [address] [address] [address] Phani El LDL CALC NORMAL SEE BELOW Normal [facility] Comment on above: Result Comment: <100 mg/dl OPTIMAL 100 - 129 mg/dl NEAR OR ABOVE OPTIMAL 130 - 159 mg/dl BORDERLINE HIGH 160 - 189 mg/dl HIGH >190 mg/dl VERY HIGH Performed By: #### C MP, LIPID #### [facility] [id number] Phani El Triglyceride [Mass/Vol] 187 mg/dL Critically high <=150 [facility] Comment on above: Performed By: #### C MP, LIPID #### [facility] [address] [address] [address] Phani El VLDL CALC 37.4 mg/dL Normal [facility] Comment on above: Performed By: #### C MP, LIPID #### [facility] [address] [address] [address] Phani El PROF 14(COMP METB)on 023 Albumin [Mass/Vol] 3.6 g/dL Normal 3.4-5.0 [facility] Comment on above: Performed By: #### C MP, LIPID ####[facility] [address] [id number] El Albumin/Globulin [Mass ratio] 1.1 {ratio} Normal [facility] Comment on above: Performed By: #### C MP, LIPID ####[facility] [address] [id number] El ALP [Catalytic activity/Vol] 91 U/L Normal 46-116 [facility] Comment on above: Performed By: #### C MP, LIPID ####[facility] [address] [id number] El ALT [Catalytic activity/Vol] 34 U/L Normal 14-59 [facility] Comment on above: Performed By: #### C MP, LIPID ####[facility] [address] [id number] El Anion gap [Moles/Vol] 11.6 mmol/L Normal [facility] Comment on above: Performed By: #### C MP, LIPID ####[facility] [address] [address]Dr. Phani El AST [Catalytic activity/Vol] 18 U/L Normal 15-37 [facility] Comment on above: Performed By: #### C MP, LIPID ####[facility] [address] [address]Dr. Phani El Bilirubin [Mass/Vol] 0.6 mg/dL Normal 0.2-1.0 [facility] Comment on above: Performed By: #### C MP, LIPID ####[facility] [address] [place], [place] [address]Dr. Loryzach El Calcium [Mass/Vol] 9.2 mg/dL Normal 8.5-10.1 [facility] Comment on above: Performed By: #### C MP, LIPID ####[facility] [address] [place], [place] [address]Dr. Phani El Chloride [Moles/Vol] 106 mmol/L Normal 98-107 [facility] Comment on above: Performed By: #### C MP, LIPID ####[facility] [address] [place], [place] [address]Dr. Loryzach El CO2 [Moles/Vol] 32.3 mmol/L Critically high 21.0-32.0 [facility] Comment on above: Performed By: #### C MP, LIPID ####[facility] [address] [place], [place] [address]Dr. Phani El Creatinine [Mass/Vol] 1.04 mg/dL Critically high 0.55-1.02 [facility] Comment on above: Performed By: #### C MP, LIPID ####[facility] [address] [place], [place] [address]Dr. Phani El EGFR-AF TURKMEN >60 Normal >=60 [facility] Comment on above: Performed By: #### C MP, LIPID ####[facility] [address] [place], [place] [address]Dr. Yilan El EGFR-NON AF TURKMEN 54 mL/min/1.73m2 Critically low >=60 [facility] Comment on above: Performed By: #### C MP, LIPID ####[facility] [address] [address]Dr. Phani El Globulin (S) [Mass/Vol] 3.4 g/dL Normal [facility] Comment on above: Performed By: #### C MP, LIPID ####[facility] [address] [address]Dr. Phani El Glucose [Mass/Vol] 124 mg/dL Critically high 74-106 [facility] Comment on above: Performed By: #### C MP, LIPID ####[facility] [address] [address]Dr. Phani El Potassium [Moles/Vol] 3.9 mmol/L Normal 3.5-5.1 [facility] Comment on above: Performed By: #### C MP, LIPID ####[facility] [address] [place], [place] [address]Dr. Phani El Protein [Mass/Vol] 7.0 g/dL Normal 6.4-8.2 [facility] Comment on above: Performed By: #### C MP, LIPID ####[facility] [address] [place], [place] [address]Dr. Phani El Sodium [Moles/Vol] 146 mmol/L Critically high 136-145 [facility] Comment on above: Performed By: #### C MP, LIPID ####[facility] [address] [address]Dr. Phani El Urea nitrogen [Mass/Vol] 14.0 mg/dL Normal 7.0-18.0 [facility] Comment on above: Performed By: #### C MP, LIPID ####[facility] [address] [address]Dr. Phani El Urea nitrogen/Creatinine [Mass ratio] 13.5 mg/mg Normal [facility] Comment on above: Performed By: #### C MP, LIPID ####[facility] [address] [place], [place] [address]MfDr. Phani El VITAMIN B12on 05-05-2022 Cobalamin (Vitamin B12) [Mass/Vol] 321.0 pg/mL Normal 193.0-986.0 [facility] Comment on above: Performed By: #### V ITAD, VITB12 #### [facility] [address] [place], [place] [address] Dr. Phani lE VITAMIN D 25 OHon 05-05-2022 VIT D 25-OH 58.7 ng/mL Normal [facility] Comment on above: Performed By: #### V ITAD, VITB12 #### [facility] [id number] Phani El VIT D RANGES SEE BELOW Normal [facility] Comment on above: Result Comment: <20 ng/mL Vit D deficient 20 - <30 ng/mL Vit D insufficient 30 - 100 ng/mL Vit D sufficient >100 ng/mL Potential Toxicity Performed By: #### V ITAD, VITB12 #### [facility] [address] [place], [place] [address] Dr. Phani El XR CHEST 2 Von [...] LORI FROST Date: 2022-05-05 10:05 Normal [facility] Ambulatory Visit Summaryon 0 03-24-2022 [...] B12 deficiency Vitamin D deficiency Normal [facility] General Surgery Office/Clini c Noteon 03-24-2022 [...] - Not Given Patient Refuses Normal [facility] Comment on above: Result Comment: Elec tronically Signed By: NABIL AMADOR, Bryson Steinberg\Date and Time Signed: 03/24/22 13:12 EST Reminderson 03-24-2022 Reminders - From: Kristine Harrison LPN To: N - Clinical; Sent: 03/24/2022 13:05:34 EST Show up: 01/26/2032 07:00:00 EST Subject: colonoscopy recall Due Date/Time: 02/26/2032 07:00:00 EST Reminder/Recall Patient is due for screening colonoscopy 02/26/2032. Normal [facility] Covid-19 PCR ([facility])on 02-10 SARS-CoV-2 (COVID-19) RNA MARISOL+probe Ql (Unsp spec) Detected Abnormal NOT DETECTED [facility] Comment on above: Result Comment: This test is not yet approved or cleared by the [place] FDA. When there are no FDA-approved or cleared tests available, and other criteria are met, FDA can make tests available under an emergency access mechanism called an Emergency Use Authorization (EUA). The EUA for this test is supported by the [employer] of Health and Human Service's (HHS's) declaration [...] used). Performed By: #### C VDTBH #### [facility] [address] [place], [place] [address] Dr. Phani El INFLUENZA A AND B AGon 03-[address] [facility] SEE BELOW Normal [facility] Comment on above: Result Comment: Nega tive for Flu A protein angiten. Infection due to Flu A cannot be ruled out. Flu A angiten in the sample may be below the detection limit of the test. Performed By: #### I NFLUAB ####[facility] [address] [place], [place] [address]Dr. Phani El INFLUBNEG SEE BELOW Normal [facility] Comment on above: Result Comment: Nega tive for Flu B protein antigen. Infection due to Flu B cannot be ruled out. Flu B antigen in the sample may be below the detection limit of the test. Performed By: #### I NFLUAB ####[facility] [address] [place], [place] [address]Bo. Phani El INFLUENZA A AG Negative Normal NEGATIVE SEE COMMENT [facility] Comment on above: Performed By: #### I NFLUAB ####[facility] [address] [place], [place] [address]Qp. Phani El INFLUENZA B AG Negative Normal NEGATIVE SEE COMMENT [facility] Comment on above: Performed By: #### I NFLUAB ####[facility] [address] [place], [place] [address]Le. Phani El [facility]on 02-09 SARS-CoV-2 (COVID-19) RNA MARISOL+probe Ql (Unsp spec) Detected Abnormal NOT DETECTED [facility] Comment on above: Result Comment: This test is not yet approved or cleared by the [place] FDA. When there are no FDA-approved or cleared tests available, and other criteria are met, FDA can make tests available under an emergency access mechanism called an Emergency Use Authorization (EUA). The EUA for this test is supported by the [employer] of Health and Human Service's declaration that [...] used). Performed By: #### C VDTBH #### [facility] [address] [place], [place] [address] Dr. Phani El Pathology Noteon 02-27-2022 Pathology Note [id number] 0CD:127 Normal [facility] Outside Colonoscopyon 2022 Outside Colonoscopy [id number] 0CD:127 Normal [facility] Reminderson 02-26-2022 Reminders - From: Kristine Harrison LPN To: Christy KIM Kristine Ac; Sent: 02/26/2022 11:14:25 EST Show up: 05/18/2022 07:00:00 EDT Subject: Ambulatory Reminder Due Date/Time: 05/27/2022 07:00:00 EDT Reminder/Recall log in to extra lap top in [place] to keep account active Normal [facility] Lab Reportson 02-23-2022 Lab Reports [id number] 0CD:127 Normal [facility]19 [facility]on 02-08 SARS-CoV-2 (COVID-19) RNA MARISOL+probe Ql (Unsp spec) Not detected Normal NOT DETECTED [facility] Comment on above: Result Comment: This test is not yet approved or cleared by the [place] FDA. When there are no FDA-approved or cleared tests available, and other criteria are met, FDA can make tests available under an emergency access mechanism called an Emergency Use Authorization (EUA). The EUA for this test is supported by the Traffic Control Supervisor of Health and Human Service's (HHS's) [...] consistent with SARS-CoV-2. Performed By: #### C [facility] ####[facility] [address] [place], [place] [address]JxCindy El Pre-Certification Formon Pre-Certification Form [id number] 00CD:127 Normal [facility] Consent for Procedure/Surger yon 02-05-2022 Consent for Procedure/Surgery [id number] 0CD:127 Normal [facility] Formson 02-05-2022 Forms [id number]:127 Normal [facility] Physician Referralon 022 Physician Referral [id number]:127 Normal [facility] MRI Knee w/o Lefton 12-26-19 MRI Knee [...] by Jason Sanchez on 12/25/2021 1505 Normal [facility] MRI LSPINE WO CONon 12-05-19 MRI [...] by: NADINE GRANT Date: 2021-12-04 17:54 Normal [facility] XR LSPINE 2_3 VIEWSon 2021 [...] by: NADINE GRANT Date: 2021-09-30 07:20 Normal [facility] MRI Knee w/o Lefton 07-30-19 [...] Robby Diaz on 07/30/2021 1316 Normal [facility] Components Engineer Vital Signs Date Time Vital Sign Value Performing Clinician Nicolasa zuleyka 08-31-2024 13:00-0400 Body mass index (BMI) [Ratio] 40.77 kg/m2 Nat Beatriz DO Work Phone: [facility] 08-31-2024 13:00-0400 Body weight 111.13 kg Nat Beatriz DO Work Phone: [facility] 08-31-2024 13:00-0400 Diastolic blood pressure 64 mm[Hg] Nat Beatriz DO Work Phone: [facility] 08-31-2024 13:00-0400 Heart rate 86 /min Nat Beatriz DO Work Phone: [facility] 08-31-2024 13:00-0400 SaO2% (BldA) [Mass fraction] 94 % Nat Beatriz DO Work Phone: [facility] 08-31-2024 13:00-0400 Systolic blood pressure 110 mm[Hg] Nat Beatriz DO Work Phone: [facility] 07-31-2024 10:09-0400 Body mass index (BMI) [Ratio] 40.9 kg/m2 Jaymie Phoenix MICROBIOLOGICAL LABORATORY TECHNICIAN Work Phone: [facility] 07-31-2024 10:09-0400 Body temperature 98.1 [degF] Jaymie Alban MICROBIOLOGICAL LABORATORY TECHNICIAN Work Phone: [facility] 07-31-2024 10:09-0400 Body weight 111.49 kg Jaymie Alban MICROBIOLOGICAL LABORATORY TECHNICIAN Work Phone: [facility] 07-31-2024 10:09-0400 Diastolic blood pressure 70 mm[Hg] Jaymie Alban MICROBIOLOGICAL LABORATORY TECHNICIAN Work Phone: [facility] 06-23-2025 10:09-0400 Heart rate 80 /min Jaymie Phoenix MICROBIOLOGICAL LABORATORY TECHNICIAN Work Phone: [facility] 07-31-2024 10:09-0400 Respiratory rate 24 /min Jaymie Phoenix MICROBIOLOGICAL LABORATORY TECHNICIAN Work Phone: [facility] 07-31-2024 10:09-0400 SaO2% (BldA) [Mass fraction] 92 % Jaymie Phoenix MICROBIOLOGICAL LABORATORY TECHNICIAN Work Phone: [facility] 07-31-2024 10:09-0400 Systolic blood pressure 104 mm[Hg] Jaymie Francoishomer MICROBIOLOGICAL LABORATORY TECHNICIAN Work Phone: [facility] 03-14-2024 14:53-0500 Body mass index (BMI) [Ratio] 40.7 kg/m2 Christopher Wong DO Work Phone: [facility] 03-14-2024 14:53-0500 Body weight 110.95 kg Christopher Wong DO Work Phone: [facility] 03-14-2024 14:53-0500 Diastolic blood pressure 82 mm[Hg] Christopher Wong DO Work Phone: [facility] 03-14-2024 14:53-0500 Heart rate 76 /min Christopher Wong DO Work Phone: [facility] 03-14-2024 14:53-0500 SaO2% (BldA) [Mass fraction] 94 % Christopher Wong DO Work Phone: [facility] 03-14-2024 14:53-0500 Systolic blood pressure 128 mm[Hg] Christopher Wong DO Work Phone: [facility] 02-10-2024 13:31-0500 Body height 165.1 cm Jaymie Phoenix MICROBIOLOGICAL LABORATORY TECHNICIAN Work Phone: [facility] 02-10-2024 13:31-0500 Body mass index (BMI) [Ratio] 40.94 kg/m2 Jaymie Xavierashley MICROBIOLOGICAL LABORATORY TECHNICIAN Work Phone: [facility] 02-10-2024 13:31-0500 Body temperature 98.1 [degF] Jaymiebrianne Francoisz MICROBIOLOGICAL LABORATORY TECHNICIAN Work Phone: [facility] 02-10-2024 13:31-0500 Body weight 111.58 kg Jyamie Ducholz MICROBIOLOGICAL LABORATORY TECHNICIAN Work Phone: [facility] 02-10-2024 13:31-0500 Diastolic blood pressure 80 mm[Hg] Jaymie Aichholz MICROBIOLOGICAL LABORATORY TECHNICIAN Work Phone: [facility] 02-10-2024 13:31-0500 Heart rate 87 /min Jaymie Maddyhholz MICROBIOLOGICAL LABORATORY TECHNICIAN Work Phone: [facility] 02-10-2024 13:31-0500 Respiratory rate 18 /min Jaymie Ducholz MICROBIOLOGICAL LABORATORY TECHNICIAN Work Phone: [facility] 02-10-2024 13:31-0500 SaO2% (BldA) [Mass fraction] 94 % Jaymie Ducholz MICROBIOLOGICAL LABORATORY TECHNICIAN Work Phone: [facility] 02-10-2024 13:31-0500 Systolic blood pressure 110 mm[Hg] Jaymie Maddyhholz MICROBIOLOGICAL LABORATORY TECHNICIAN Work Phone: [facility] 01-03-2024 10:30-0500 Body height 165.1 cm Jaymie Maddyhholz MICROBIOLOGICAL LABORATORY TECHNICIAN Work Phone: [facility] 01-03-2024 10:30-0500 Body mass index (BMI) [Ratio] 40.6 kg/m2 Jaymie Ducholz MICROBIOLOGICAL LABORATORY TECHNICIAN Work Phone: [facility] 01-03-2024 10:30-0500 Body temperature 98.1 [degF] Jaymie Maddyhholz MICROBIOLOGICAL LABORATORY TECHNICIAN Work Phone: [facility] 01-03-2024 10:30-0500 Body weight 110.68 kg Jaymie Maddyhholz MICROBIOLOGICAL LABORATORY TECHNICIAN Work Phone: [facility] 01-03-2024 10:30-0500 Diastolic blood pressure 86 mm[Hg] Jaymie Aichholz MICROBIOLOGICAL LABORATORY TECHNICIAN Work Phone: [facility] 01-03-2024 10:30-0500 Heart rate 89 /min Jaymie Ducholz MICROBIOLOGICAL LABORATORY TECHNICIAN Work Phone: [facility] 01-03-2024 10:30-0500 Respiratory rate 19 /min Jaymie Ducholz MICROBIOLOGICAL LABORATORY TECHNICIAN Work Phone: [facility] 01-03-2024 10:30-0500 SaO2% (BldA) [Mass fraction] 91 % Jaymie Ducholz MICROBIOLOGICAL LABORATORY TECHNICIAN Work Phone: [facility] 01-03-2024 10:30-0500 Systolic blood pressure 106 mm[Hg] Jaymie Aichholz MICROBIOLOGICAL LABORATORY TECHNICIAN Work Phone: [facility] 03-25-2023 13:13-0500 Body height 165.1 cm Jaymie Maddyhholz MICROBIOLOGICAL LABORATORY TECHNICIAN Work Phone: [facility] 03-25-2023 13:13-0500 Body mass index (BMI) [Ratio] 42.9 kg/m2 Jaymie Ducholz MICROBIOLOGICAL LABORATORY TECHNICIAN Work Phone: [facility] 03-25-2023 13:13-0500 Body temperature 97.5 [degF] Jaymie Maddyhholz MICROBIOLOGICAL LABORATORY TECHNICIAN Work Phone: [facility] 03-25-2023 13:13-0500 Body weight 116.94 kg Jaymie Ducholz MICROBIOLOGICAL LABORATORY TECHNICIAN Work Phone: [facility] 03-25-2023 13:13-0500 Diastolic blood pressure 68 mm[Hg] Jaymie Ducholz MICROBIOLOGICAL LABORATORY TECHNICIAN Work Phone: [facility] 03-25-2023 13:13-0500 Heart rate 71 /min Jaymie Aichholz MICROBIOLOGICAL LABORATORY TECHNICIAN Work Phone: [facility] 03-25-2023 13:13-0500 Respiratory rate 20 /min Jaymie Aichholz MICROBIOLOGICAL LABORATORY TECHNICIAN Work Phone: [facility] 03-25-2023 13:13-0500 SaO2% (BldA) [Mass fraction] 95 % Jaymie Ducholz MICROBIOLOGICAL LABORATORY TECHNICIAN Work Phone: [facility] 03-25-2023 13:13-0500 Systolic blood pressure 108 mm[Hg] Jaymiebrianne Xavierholz MICROBIOLOGICAL LABORATORY TECHNICIAN Work Phone: [facility] 03-16-2023 13:35-0500 Body height 165.1 cm Jaymie Aichholz MICROBIOLOGICAL LABORATORY TECHNICIAN Work Phone: [facility] 03-16-2023 13:35-0500 Body mass index (BMI) [Ratio] 41.6 kg/m2 Jaymie Aichholz MICROBIOLOGICAL LABORATORY TECHNICIAN Work Phone: [facility] 03-16-2023 13:35-0500 Body temperature 98.4 [degF] Jaymie Maddyhholz MICROBIOLOGICAL LABORATORY TECHNICIAN Work Phone: [facility] 03-16-2023 13:35-0500 Body weight 113.4 kg Jaymie Maddyhholz MICROBIOLOGICAL LABORATORY TECHNICIAN Work Phone: [facility] 03-16-2023 13:35-0500 Diastolic blood pressure 72 mm[Hg] Jaymie Maddyhholz MICROBIOLOGICAL LABORATORY TECHNICIAN Work Phone: [facility] 03-16-2023 13:35-0500 Heart rate 77 /min Jaymie Aichholz MICROBIOLOGICAL LABORATORY TECHNICIAN Work Phone: [facility] 03-16-2023 13:35-0500 Respiratory rate 18 /min Jaymie Aichholz MICROBIOLOGICAL LABORATORY TECHNICIAN Work Phone: [facility] 03-16-2023 13:35-0500 SaO2% (BldA) [Mass fraction] 95 % Jaymie Maddyhholz MICROBIOLOGICAL LABORATORY TECHNICIAN Work Phone: [facility] 03-16-2023 13:35-0500 Systolic blood pressure 112 mm[Hg] Jaymie Aichholz MICROBIOLOGICAL LABORATORY TECHNICIAN Work Phone: [facility] 02-03-2022 13:27-0500 Blood Pressure Location Bryson SAMPSON [facility] 02-03-2022 13:27-0500 Diastolic blood pressure 80 mm[Hg] Bryson SAMPSON [facility] 02-03-2022 13:27-0500 Heart rate 72 /min Bryson SAMPSON [facility] [place] 02-03-2022 13:27-0500 Respiratory rate 16 /min Bryson SAMPSON [facility] [place] 02-03-2022 13:27-0500 Systolic blood pressure 126 mm[Hg] Bryson SAMPSON [facility] [place] Encounters Encounter Date Encounter Type Care Provider Facility Start: 09-29-2024 End: 09-29-2024 Refill Jaymie Phoenix MICROBIOLOGICAL LABORATORY TECHNICIAN Work Phone: [facility] Comment on above: Gastro-esophageal re flux disease without esophagitis; Mixed hyperlipidemia ; Fibromyalgia; Localized edema Start: 09-19-2024 End: 09-19-2024 Clinisync Result Encounter Generic External Data Provider [facility] External Department Unsolicited Start: 09-19-2024 End: 09-19-2024 Clinisync Result Encounter Generic External Data Provider [facility] External Department Unsolicited Start: 08-31-2024 End: 08-31-2024 Bamboo flowsheet Nat K Beatriz DO Work Phone: [facility] Start: 08-31-2024 End: 08-31-2024 Bamboo flowsheet Nat K Beatriz DO Work Phone: [facility] Start: 08-31-2024 End: 08-31-2024 ambulatory NAT Garcia BEATRIZ Not Available Start: 08-31-2024 End: 08-31-2024 Office outpatient new 45 minutes Nat K Beatriz DO Work Phone: [facility] Comment on above: WINSOME (obstructive sle ep apnea) (Primary Dx); Cigarette smoker Start: 08-29-2024 End: 08-29-2024 ambulatory Alphonse Damian Facility:[facility] Comment on above: Acute back pain with sciatica, unspecified laterality (Primary Dx) Start: 08-28-2024 End: 08-28-2024 Orders Only Jaymie Aichholz MICROBIOLOGICAL LABORATORY TECHNICIAN Work Phone: [facility] Comment on above: Acute back pain with sciatica, unspecified laterality (Primary Dx) Start: 08-05-2024 End: 08-06-2024 Refill Jaymie Aichholz MICROBIOLOGICAL LABORATORY TECHNICIAN Work Phone: [facility] Comment on above: Tobacco dependence Start: 07-31-2024 End: 07-31-2024 Patient encounter procedure Jaymie Aichholz MICROBIOLOGICAL LABORATORY TECHNICIAN Work Phone: [facility] Comment on above: Encounter for subseq uent annual wellness visit (AWV) in Medicare patient (Primary Dx); Chronic kidney disease, stage 3a (CMS-HCC); WINSOME (obstructive sleep apnea); COPD mixed type ([facility]); Gastroesophageal reflux disease, unspecified whether esophagitis present; Bilateral lower extremity edema; Anxiety and depression ; Tobacco dependence; Mixed hyperlipidemia ; Fibromyalgia; Environmental and seasonal allergies; Gastro-esophageal reflux disease without esophagitis; Personal history of other diseases of the nervous system and sense organs; Screening for lung cancer Start: 07-31-2024 End: 07-31-2024 ambulatory JAYMIE AICHHOLZ Not Available Start: 07-05-2024 End: 07-05-2024 Refill Jaymie Aichholz MICROBIOLOGICAL LABORATORY TECHNICIAN Work Phone: [facility] Comment on above: Fibromyalgia Start: 06-26-2024 End: 06-26-2024 Refill Jaymie Aichholz MICROBIOLOGICAL LABORATORY TECHNICIAN Work Phone: [facility] Comment on above: Tobacco dependence ( Primary Dx) Start: 06-14-2024 End: 06-14-2024 Refill Jaymie Aichholz MICROBIOLOGICAL LABORATORY TECHNICIAN Work Phone: [facility] Comment on above: Mixed hyperlipidemia (CMS/HCC) Start: 05-09-2024 End: 05-09-2024 Refill Jaymie Aichholz MICROBIOLOGICAL LABORATORY TECHNICIAN Work Phone: [facility] Comment on above: Fibromyalgia Start: 04-19-2024 End: 04-19-2024 Refill Jaymie Aichholz MICROBIOLOGICAL LABORATORY TECHNICIAN Work Phone: [facility] Comment on above: Environmental and se asonal allergies (Primary Dx); COPD mixed type (CMS/HCC) Start: 04-08-2024 End: 04-10-2024 Refill Jaymie Phoenix MICROBIOLOGICAL LABORATORY TECHNICIAN Work Phone: [facility] Comment on above: Fibromyalgia; Localized edema; Mixed hyperlipidemia (CMS/HCC) Start: 03-14-2024 End: 03-14-2024 Office outpatient new 30 minutes Saumya Back DO Work Phone: [facility] Comment on above: 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); Tremor Start: 03-14-2024 End: 03-14-2024 ambulatory SAUMYA BACK Not Available Start: 03-14-2024 End: 03-14-2024 Bamboo flowsheet Saumya Back DO Work Phone: [facility] Start: 03-14-2024 End: 03-14-2024 Bamboo flowsheet Saumya Back DO Work Phone: [facility] Start: 02-10-2024 End: 02-10-2024 Bamboo flowsheet Jaymie Phoenix MICROBIOLOGICAL LABORATORY TECHNICIAN Work Phone: [facility] Start: 02-10-2024 End: 02-10-2024 Bamboo flowsheet Jaymie Phoenix MICROBIOLOGICAL LABORATORY TECHNICIAN Work Phone: [facility] Start: 02-10-2024 End: 02-10-2024 ambulatory JAYMIEBrianne PHOENIX Not Available Start: 02-10-2024 End: 02-10-2024 Office outpatient visit 25 minutes Jaymie Phoenix MICROBIOLOGICAL LABORATORY TECHNICIAN Work Phone: [facility] Comment on above: COPD with acute exac erbation (CMS/HCC) (Primary Dx); Morbid (severe) obesity due to excess calories ([facility]/HCC); Body mass index (BMI) 40.0-44.9, adult ([facility]); WINSOME (obstructive sleep apnea); COPD mixed type ([facility]/HCC); Gastroesophageal reflux disease, unspecified whether esophagitis present; Tobacco dependence; Gastro-esophageal reflux disease without esophagitis; Tremor Start: 02-03-2024 End: 02-06-2024 Refill Jaymiebrianne Phoenix MICROBIOLOGICAL LABORATORY TECHNICIAN Work Phone: [facility] Comment on above: Fibromyalgia Start: 01-27-2024 End: 01-27-2024 Clinisync Result Encounter Jaymie Alban MICROBIOLOGICAL LABORATORY TECHNICIAN Work Phone: [facility] Unsolicited Start: 01-27-2024 End: 01-27-2024 Clinisync Result Encounter Jaymie Alessandroz MICROBIOLOGICAL LABORATORY TECHNICIAN Work Phone: [facility] Unsolicited Start: 01-24-2024 End: 01-24-2024 Clinisync Result Encounter Jaymie Alessandroz MICROBIOLOGICAL LABORATORY TECHNICIAN Work Phone: [facility] Unsolicited Start: 01-24-2024 End: 01-24-2024 Clinisync Result Encounter Jaymiebrianne Castañedaaminaz MICROBIOLOGICAL LABORATORY TECHNICIAN Work Phone: [facility] Unsolicited Start: 01-03-2024 End: 01-03-2024 Bamboo flowsheet Jaymie Ducholz MICROBIOLOGICAL LABORATORY TECHNICIAN Work Phone: [facility] Start: 01-03-2024 End: 01-03-2024 Bamboo flowsheet Jaymie Ducholz MICROBIOLOGICAL LABORATORY TECHNICIAN Work Phone: [facility] Start: 01-03-2024 End: 01-03-2024 Office outpatient visit 25 minutes Jaymie Phoenix MICROBIOLOGICAL LABORATORY TECHNICIAN Work Phone: [facility] Comment on above: WINSOME (obstructive sle ep apnea) (Primary Dx); COPD mixed type ([facility]); Primary hypertension ([facility]/HCC); Fibromyalgia; BMI 40.0-44.9, adult ([facility]); Tobacco dependence; Mixed hyperlipidemia ([facility]); Vitamin D deficiency; Vitamin B12 deficiency; COPD with acute exacerbation ([facility]) Start: 01-03-2024 End: 01-03-2024 ambulatory JAYMIE AICHHOLZ Not Available Start: 12-31-2023 End: 12-31-2023 Refill Jaymie Alban MICROBIOLOGICAL LABORATORY TECHNICIAN Work Phone: [facility] Start: 12-30-2023 End: 12-31-2023 Refill Jaymie Alban MICROBIOLOGICAL LABORATORY TECHNICIAN Work Phone: [facility] Comment on [...] Unsolicited Start: 11-24-2023 End: 11-24-2023 Refill Jaymie Alban MICROBIOLOGICAL LABORATORY TECHNICIAN Work Phone: [facility] Comment on above: Mixed hyperlipidemia (CMS/HCC) Start: 10-26-2023 End: 10-26-2023 Refill Jaymie Alban MICROBIOLOGICAL LABORATORY TECHNICIAN Work Phone: [facility] Comment on above: Fibromyalgia; Gastro-esophageal reflux disease without esophagitis Start: 06-03-2023 Patient encounter procedure Jaymie Phoenix MICROBIOLOGICAL LABORATORY TECHNICIAN Work Phone: [facility] Start: 03-25-2023 Bamboo flowsheet Jaymie Alban MICROBIOLOGICAL LABORATORY TECHNICIAN Work Phone: [facility] Start: 03-25-2023 Bamboo flowsheet Jaymie Alban MICROBIOLOGICAL LABORATORY TECHNICIAN Work Phone: [facility] Start: 03-25-2023 End: 03-25-2023 Office outpatient visit 25 minutes Jaymie Phoenix MICROBIOLOGICAL LABORATORY TECHNICIAN Work Phone: [facility] Comment on above: Edema of right lower extremity (Primary Dx); BMI 40.0-44.9, adult (CMS/HCC); Shortness of breath; COPD mixed type (CMS/HCC); Primary hypertension (CMS/HCC); Bilateral lower extremity edema Start: 03-16-2023 End: 03-16-2023 Office outpatient visit 25 minutes Jaymie Phoenix MICROBIOLOGICAL LABORATORY TECHNICIAN Work Phone: [facility] Comment on above: COPD mixed type (CMS /HCC) (Primary Dx); Tobacco dependence; BMI 40.0-44.9, adult (CMS/HCC); Body mass index [BMI] 40.0-44.9, adult (Z68.41); Primary hypertension (CMS/HCC); Bilateral lower extremity edema Start: 07-08-2022 ambulatory MEREDITH PHOENIX Facil ity:H1 [...] Rehabilitation Start: 03-17-2022 ambulatory Bryson SAMPSON Facility :[facility] Start: 03-10-2022 End: 03-10-2022 ambulatory MEREDITH PHOENIX Facility:[facility]1 Start: 03-02-2022 Encounter for preprocedural laboratory examination DR JIM ALLAN . [facility] Start: 02-28-2022 End: 03-01-2022 Encounter for preprocedural laboratory examination MEREDITH PHOENIX Facility:[facility] Start: 02-28-2022 End: 03-01-2022 ambulatory MEREDITH PHOENIX Facility:[facility] Start: 02-25-2022 End: 02-26-2022 ambulatory Bryson SAMPSON Facility:CD:[id number] Start: 02-21-2022 End: 02-22-[address] BRYSON SAMPSON . Facility:[facility]1 Start: 02-06-2022 End: 02-07-2022 ambulatory JENNY THORNE . Facility: Start: 02-03-2022 End: 02-04-2022 ambulatory Tracy Phoenix Facility: [facility] Start: 02-03-2022 End: 02-03-2022 Patient encounter procedure Bryson Hernandez NABIL General Surgery Nill/Said [facility] Start: 01-13-2022 End: 01-13-[address] JIM ALLAN . Facility: Start: 01-08-2022 End: 01-09-[address] JIM ALLAN . Facility:[facility] Start: 01-06-2022 ambulatory Bryson Hernandez NABIL Facility : [place] Start: 12-23-2021 End: 12-23-[address] JIM ALLAN . Facility: Start: 12-09-2021 End: 12-10-[address] JIM ALLAN . Facility: Start: 12-04-2021 End: 12-05-2021 ambulatory MEREDITH PHOENIX Facility: Start: 12-03-2021 End: 12-03-2021 ambulatory GLENRYO BOWERS . Facility: Start: 10-10-2021 End: 10-30-2021 ambulatory MR DEMETRIUS MENDEZ . Facility: Start: 09-29-2021 End: 09-30-2021 ambulatory MEREDITH PHOENIX Facility: Start: 09-20-2021 End: 09-20-2021 ambulatory GLENROY BOWERS . Facility: Procedures Date Procedure Procedure Detail Performing Clinician Start: 09-19-2024 XR LUMBAR SPINE 6V W BENDING Generic External Data Provider Start: 02-10-2024 Mammography Jaymie kohler MICROBIOLOGICAL LABORATORY TECHNICIAN Work Phone: Start: 01-27-2024 [facility] MICROALB CREAT R ATIO RANDOM Jaymie Phoenix MICROBIOLOGICAL LABORATORY TECHNICIAN Work Phone: Start: 01-24-2024 ALL BASIC METABOLIC PANEL Jaymie Phoenix MICROBIOLOGICAL LABORATORY TECHNICIAN Work Phone: Start: 01-24-2024 ALL LIPID PROFILE (FASTING) Jaymie Phoenix NP Work Phone: Start: 12-25-2023 BLOOD CULTURE 2 Generic External Data Provider Start: 12-25-2023 BLOOD CULTURE 1 Generic External Data Provider Start: 12-24-2023 BLOOD CULTURE 2 Generic External Data Provider Start: 12-24-2023 BLOOD CULTURE 1 Generic External Data Provider Start: 03-25-2023 Mammography Jaymie kohler MICROBIOLOGICAL LABORATORY TECHNICIAN Work Phone: Start: 02-25-2022 Colonoscopy Jaymie kohler MICROBIOLOGICAL LABORATORY TECHNICIAN Work Phone: section Bryson RACHEL L Ligation of fallopian tube M ichgabriel VIRGINIEL Repair of meniscus Bryson Osorio HOWELL Total abdominal hysterectomy with bilateral salpingo-oophorectomy Bryson RACHELL Plan of Treatment Date Care Activity Detail Author Start: 02-26-2032 Screening for malign ant neoplasm of colon [facility] Start: 08-02-2025 End: 08-02-2025 Patient encounter procedure 08/02/2025 10:30 AM EDT Office Visit [facility] [address] [place] [phone] Jaymie Phoenix, NILE [address] [place] [address] [facility] Start: 07-31-2025 Medicare Annual Well ness (AWV) Medicare Annual Wellness (AWV) [facility] Start: 02-09-2025 Screening for malign ant neoplasm of breast Mammogram [facility] Start: 12-26-2024 Screening for malign ant neoplasm of colon FIT-DNA [facility] Start: 12-07-2024 End: 12-07-2024 Patient encounter procedure [facility] Start: 10-09-2024 Influenza vaccination [facility] Start: 09-27-2024 End: 09-27-2024 Patient encounter procedure 09/27/2024 8:40 AM EDT Office Visit [facility] [address] [place] [address] Jaymie Phoenix, NILE [address] [place] [phone] [facility] Start: 08-31-2024 End: 08-31-2024 Patient encounter procedure 08/31/2024 1:00 PM EDT [facility] [address] [place] [phone] Nat Henderson, DO [address] [place] [address] [facility] Start: 07-31-2024 End: 07-31-2025 CT Chest for screening WO contrast CT lung screening low dose Imaging Routine Tobacco dependence Expected: 07/31/2024, Expires: 07/31/2025 [facility] Work Phone: Comment on above: Expected: 07/31/2024 , Expires: 07/31/2025 Start: 07-31-2024 End: 07-31-2024 Patient encounter procedure 07/31/2024 10:30 AM EDT [address] [facility] [address] [place] [address] Jaymie Phoenix, NILE [address] [place] [phone] [facility] Start: 06-14-2024 Influenza vaccination Influenza Vacc ine (#1) [facility] Comment on above: Postponed from 10/09 (Patient Refused) Start: 06-05-2024 End: 06-05-2024 Patient encounter procedure 06/05/2024 3:40 PM EDT Office Visit [facility] [address] [place] [phone] Sherice Tristan NP [address] [place] [phone] [facility] Start: 06-02-2024 Medicare Annual Well ness (AWV) Medicare Annual Wellness (AWV) [facility] Start: 05-10-2024 End: 05-10-2024 Patient encounter procedure 05/10/2024 2:00 PM EDT Office Visit [facility] [address] [place] [phone] Jaymie Phoenix, NILE [address] [place] [phone] [facility] Start: 04-06-2024 Influenza vaccination Influenza Vacc ine (#1) [facility] Comment on above: Postponed from 10/09 (Patient Refused) Start: 03-25-2024 Screening for malign ant neoplasm of breast Mammogram [facility] Start: 03-14-2024 End: 03-14-2024 Patient encounter procedure 03/14/2024 3:00 PM EST Office Visit [facility] [address] [place], [place] [address], [place] [address] Saumya Back DO [address] [place], [place] [phone] Tremor [facility] Comment on above: Tremor Start: 01-26-2024 End: 01-26-2024 Patient encounter procedure 01/26/2024 10:30 AM EST Office Visit [facility] [address] [place] [phone] Jaymie Phoenix, NILE [address] [place] [phone] [facility] Start: 01-03-2024 End: 01-02-2025 25-hydroxyvitamin D3 [Mass/volume] in Serum or Plasma Vitamin D 25 hydroxy Lab Routine Vitamin D deficiency Expected: 01/03/2024 (Approximate), Expires: 01/02/2025 [facility] Comment on above: Expected: 01/03/2024 (Approximate), Expires: 01/02/2025 Start: 01-03-2024 End: 01-02-2025 Basic metabolic 1998 panel - Serum or Plasma Basic metabolic panel Lab Routine Primary hypertension (CMS/HCC) Expected: 01/03/2024 (Approximate), Expires: 01/02/2025 [facility] Comment on above: Expected: 01/03/2024 (Approximate), Expires: 01/02/2025 Start: 01-03-2024 End: 01-02-2025 Cobalamin (Vitamin B12) [Mass/volume] in Serum or Plasma Vitamin B12 Lab Routine Vitamin B12 deficiency Expected: 01/03/2024 (Approximate), Expires: 01/02/2025 [facility] Comment on above: Expected: 01/03/2024 (Approximate), Expires: 01/02/2025 Start: 01-03-2024 End: 01-02-2025 Lipid 1996 panel - Serum or Plasma Lipid panel Lab Routine Mixed hyperlipidemia (CMS/HCC) Expected: 01/03/2024 (Approximate), Expires: 01/02/2025 [facility] Comment on above: Expected: 01/03/2024 (Approximate), Expires: 01/02/2025 Start: 01-03-2024 End: 01-02-2025 Microalbumin/Creatinine panel in random Urine Microalbumin / creatinine, urine ratio Lab Routine Primary hypertension (CMS/HCC) Tobacco dependence Expected: 01/03/2024 (Approximate), Expires: 01/02/2025 [facility] Work Phone: Comment on above: Expected: 01/03/2024 (Approximate), Expires: 01/02/2025 Start: 01-03-2024 End: 01-02-2025 Urinalysis complete panel - Urine Urinalysis with reflex microscopic (clean catch) Lab Routine Primary hypertension (CMS/HCC) Tobacco dependence Expected: 01/03/2024 (Approximate), Expires: 01/02/2025 [facility] Comment on above: Expected: 01/03/2024 (Approximate), Expires: 01/02/2025 Start: 01-03-2024 End: 01-03-2024 Patient encounter procedure [facility] Comment on above: WINSOME (obstructive sle ep apnea) (Primary Dx); COPD mixed type ([facility]); Primary hypertension ([facility]); Fibromyalgia; BMI 40.0-44.9, adult ([facility]); Tobacco dependence; Mixed hyperlipidemia ([facility]); Vitamin D deficiency; Vitamin B12 deficiency Start: 10-10-2023 Influenza vaccination Influenza Vacc ine (#1) [facility] Start: 08-08-2023 Influenza vaccination Influenza Vacc ine (#1) [facility] Comment on above: Postponed from 10/09 (Patient Refused) Start: 04-06-2023 End: 04-06-2023 Patient encounter procedure 04/06/2023 1:40 PM EST Office Visit [facility] [address] [place] [phone] Jaymie Phoenix NP [address] [place] [phone] [facility] Start: 03-25-2023 End: 03-25-2024 CBC W Auto Differential panel - Blood CBC and differential Lab Routine Edema of right lower extremity Expected: 03/25/2023 (Approximate), Expires: 03/25/2024 [facility] Comment on above: Expected: 03/25/2023 (Approximate), Expires: 03/25/2024 Start: 03-25-2023 End: 03-25-2024 Comprehensive metabolic 2000 panel - Serum or Plasma Comprehensive metabolic panel Lab Routine Edema of right lower extremity Expected: 03/25/2023 (Approximate), Expires: 03/25/2024 [facility] Comment on above: Expected: 03/25/2023 (Approximate), Expires: 03/25/2024 Start: 03-25-2023 End: 03-25-2024 Fibrin D-dimer FEU [Mass/volume] in Platelet poor plasma D-dimer, quantitative Lab Routine Edema of right lower extremity Expected: 03/25/2023 (Approximate), Expires: 03/25/2024 [facility] Comment on above: Expected: 03/25/2023 (Approximate), Expires: 03/25/2024 Start: 03-25-2023 End: 03-25-2024 US.doppler Lower extremity vein - right Vascular US lower extremity venous duplex right Imaging STAT Edema of right lower extremity Expected: 03/25/2023, Expires: 03/25/2024 [facility] Work Phone: Comment on above: Expected: 03/25/2023 , Expires: 03/25/2024 Start: 03-25-2023 End: 03-25-2024 XR Chest 2 Views XR chest 2 views Imaging Routine Edema of right lower extremity Shortness of breath Expected: 03/25/2023, Expires: 03/25/2024 [facility] Comment on above: Expected: 03/25/2023 , Expires: 03/25/2024 Start: 08-16-1993 Screening for malign ant neoplasm of cervix HPV/Cotest [facility] Start: 08-16-1984 Screening for malign ant neoplasm of cervix Pap Smear [facility] Start: 1963 Medicare Annual Well ness (AWV) Medicare Annual Wellness (AWV) [facility] Start: 1963 Screening for malign ant neoplasm of colon [facility] Start: 1963 Screening for malign ant neoplasm of lung Lung Cancer Screening Shared Decision Making [facility] BLOOD CULTURE 1 BLOOD CULTURE 1 Lab Routine 12/24/2023 1:45 PM EST [facility] BLOOD CULTURE 1 BLOOD CULTURE 1 Lab Routine 12/25/2023 9:09 PM [facility] BLOOD CULTURE 2 BLOOD CULTURE 2 Lab Routine 12/24/2023 1:51 PM EST [facility] BLOOD CULTURE 2 BLOOD CULTURE 2 Lab Routine 12/25/2023 9:20 PM [facility] Immunizations Immunization Date Immunization Notes Care Provider Fa [facility] 08-29-2023 tetanus toxoid, reduced diphtheria toxoid, and acellular pertussis vaccine, adsorbed Jaymie Phoenix MICROBIOLOGICAL LABORATORY TECHNICIAN Work Phone: [facility] 06-14-2020 Kelly SARS-CoV-2 Jaymie ramirez MICROBIOLOGICAL LABORATORY TECHNICIAN Work Phone: [facility] NEGATED: Highlighted row has not occurred!02-03-2022 influenza virus vaccine, unspecified formulation Bryson SAMPSON [facility] [place] Payers Date Payer Category Payer Self-pay 2021 Medicaid [employer] MED[employer]ARE A DVANTAGE [id number] 2015 Medicare [id number] 1963 Unknown [id number] 2.16.840.1.857166.3.579.2. 72 1963 Unknown [id number] 2.16.840.1.478649.3.579.2. 72 1963 Unknown [id number] 2.16.840.1.430976.3.579.2. 72 1963 Unknown [id number] 2.16.840.1.818834.3.579.2. 72 1963 Unknown [id number] 2.16.840.1.470917.3.579.2. 72 1963 Unknown [id number] 2.16.840.1.065024.3.579.2. 59 1963 Unknown [id number] 2.16.840.1.699436.3.579.2. 59 1963 Unknown [id number] 2.16.840.1.174638.3.579.2. 59 1963 Unknown [id number] 2.16.840.1.511659.3.579.2. 59 1963 Unknown [id number] 2.16.840.1.405837.3.579.2. 593 1963 Unknown [id number] 2.16.840.1.025735.3.579.2. 593 1963 Unknown [id number] 2.16.840.1.663997.3.579.2. 59 1963 Unknown [id number] 2.16.840.1.678004.3.579.2. 59 1963 Unknown [id number] 2.16.840.1.815131.3.579.2. 59 1963 Unknown [id number] 2.16.840.1.993980.3.579.2. 59 1963 Unknown [id number] 2.16.840.1.487071.3.579.2 59 1963 Unknown [id number] 2.16.840.1.601482.3.579.2 1963 Unknown [id number] 2.16.840.1.379646.3.579.2 59 1963 Unknown [id number] 2.16.840.1.388408.3.579.2 59 1963 Unknown [id number] 2.16.840.1.079136.3.579.2 59 1963 Unknown [id number] 2.16.840.1.932126.3.579.2. 59 1963 Unknown [id number] 2.16.840.1.223109.3.579.2. 59 1963 Unknown [id number] 2.16.840.1.997561.3.579.2. 59 1963 Unknown [id number] 2.16.840.1.312534.3.579.2 59 1963 Unknown [id number] 2.16.840.1.885823.3.579.2. 59 1963 Unknown [id number] 2.16.840.1.312853.3.579.2. 593 1963 Unknown [id number] 2.16.840.1.091360.3.579.2. 593 1963 Unknown [id number] 2.16.840.1.927068.3.579.2. 1259 1963 Unknown [id number] 2.16.840.1.909866.3.579.2. 9 1963 Unknown [id number] 2.16.840.1.651287.3.579.2. 1259 1963 Unknown [id number] 2.16.840.1.139317.3.579.2. 9 1963 Unknown [id number] 2.16.840.1.611989.3.579.2. 1259 1959 Private Health Insurance [id number] Unknown [id number] 2.16.840.1.996002.3.579.2. 531 Social History Date Type Detail Facility Start: 02-03-2022 Tobacco smoking status Heavy t obacco smoker (finding) [facility] [place] Tobacco smoking status Never [facility] [place] Start: 03-16-2023 End: 05-13-2023 Sex Assigned At Female [facility] Start: 01-26-2023 End: 09-01-2024 Tobacco smoking status AKIS Smokes tobacco daily [facility] History of tobacco use Cigarette Smoker [facility] Start: 01-26-2023 End: 05-13-2023 Cigarettes smoked current (pack per day) - Reported 1 [facility] Start: 01-26-2023 End: 09-01-2024 Tobacco use and exposure Smokeless tobacco non-user [facility] Start: 03-16-2023 End: 09-01-2024 Alcohol intake Ex-drinker (finding) [facility] Start: [...] the mortgage or rent on time? Yes [facility] Functional Status Date Assessment Result Facility 07-31-2024 Patient Health Quest ionnaire 2 item (PHQ-2) [Reported] [facility] 07-31-2024 PHQ-9 quick depressi on assessment panel [Reported.PHQ] [facility] 02-03-2022 Functional Status N/A [facility] Clinical Notes 12-09-2021 to 08-31-2024 Nat Henderson DO - 08/31/2024 1:00 PM Maddi Phoenix NP - 07/31/2024 11:24 AM Maddi Phoenix NP - 07/31/2024 11:22 AM Maddi Phoenix NP - 07/31/2024 11:22 AM EDTPatient Instructions Note Date & Type Note Facility 08-31-2024 History of Presen t illness Narrative Images from the original note were not included. Franky Yari Srinivasan presents today for evaluation in regards [...] by mouth at bedtime 90 tablet 1 Cmvudjx-Ibfwpezrtxn-Hphemlfogj (Breztri Aerosphere) 160-9-4.8 MCG/ACT aerosol Inhale 2 [...] (5000 UT) tablet as directed Orally HYDROcodone-acetaminophen ([place]) 5-325 MG tablet Take 1 tablet by [...] (BMI) of 40.0 to 44.9 in adult ([facility]) 01/26/2023 COPD mixed type ([facility]) 01/26/2023 DENIES HX OF BLOOD BORNE DISEASES [...] ago. Her PFTs that were done in 2023 do not demonstrate evidence of large airway [...] Nat Henderson DO documented in this encounter [facility] 07-31-2024 History of Presen t illness Narrative [...] Morbid (severe) obesity due to excess calories ([facility]) Discussed with patient their BMI (actual, verses [...] Associated Problem(s): Chronic kidney disease, stage 3a ([facility]) Check Chem 8 02 range is 89-92% [...] Specialist: Patricia for psych, going to see beatriz for pulm HCPOA/Living Will: no Concerns: no Lamictal: same Seqo: no morning dose, vraylar in place of, 300mg at HS, prazosin 3mg SUBJECTIVE: MEDICATIONS: Current Outpatient Medications Medication Instructions albuterol HFA 90 mcg/act inhaler 2 puffs, Inhalation, Every 6 hours PRN albuterol 2.5 mg, Every 6 hours PRN amitriptyline (ELAVIL) 50 mg, Oral, Nightly atorvastatin (LIPITOR) 20 mg, Oral, Nightly Yplegmc-Reqmodzstbb-Efoxhcrdkn (Breztri Aerosphere) 160-9-4.8 MCG/ACT aerosol 2 puffs, [...] (BMI) of 40.0 to 44.9 in adult ([facility]) 01/26/2023 COPD mixed type ([facility]) 01/26/2023 DENIES HX OF BLOOD BORNE DISEASES [...] Items Addressed This Visit Fibromyalgia Continue with Lyrica OARRS reviewed Relevant Medications amitriptyline (Elavil) 100 MG tablet pregabalin (Lyrica) 100 MG capsule Mixed hyperlipidemia On statin therapy Check labs yearly and prn dose changes Relevant Medications atorvastatin (Lipitor) 20 MG tablet Tobacco dependence The patient has been advised of the risks of continued smoking: stroke, WI, all forms of cancer, lung disease, and [...] (Bumex) 0.5 MG tablet COPD mixed type ([facility]) Current meds: breztri, albuterol HFA and neb prn Was referred to Pulmonology, is supposed to get a PFT prior to seeing pulmonology Relevant Medications Qoccskg-Uewnmptaqnv-Jjrtgmnujk (Breztri Aerosphere) 160-9-4.8 MCG/ACT aerosol Anxiety and depression Continue with Dr Hernandez GERD (gastroesophageal reflux disease) Recommendations: freq small meals, nothing to eat or drink at least 2 hours prior to bed, limit caffeine, alcohol, as well as spicy foods Meds to limit or avoid if possible: NSAIDS Elevate HOB if possible Current med: omeprazole Insurance correspondance about long term acute care registered nurse use of PPI Pt has been counseled on the risks of long term acute care registered nurse use, would like to continue WINSOME (obstructive [...] MG tablet Chronic kidney disease, stage 3a ([facility]) Check Chem 8 Screening for lung cancer [...] of the risks of continued smoking: stroke, WI, all forms of cancer, lung disease, and [...] possible Current med: omeprazole Insurance correspondance about shelter use of PPI Pt has been counseled on the risks of long term acute care registered nurse use, would like to continue Associated Problem(s): [...] . Compliant: no documented in this encounter [facility] 07-31-2024 Instructions Jaymie Phoenix NP - 07/31/2024 10:30 AM EDT Get labs completed Chantix: take as directed, contact me if worsening in mental health documented in this encounter [facility] 06-14-2024 Telephone encounter Note She is also due for her AWV, please call to schedule LA [facility] 06-14-2024 Miscellaneous Notes She is also due for her AWV, please call to schedule LA documented in this encounter [facility] 06-14-2024 Telephone encounter Note 90 day supply [facility] 06-14-2024 Miscellaneous Notes 90 day supply documented in this encounter [facility] 03-14-2024 History of Presen t illness Narrative [...] (BMI) of 40.0 to 44.9 in adult ([facility]) 01/26/2023 COPD mixed type ([facility]) 01/26/2023 DENIES HX OF BLOOD BORNE DISEASES Depression ([facility]) Fibromyalgia Open wound of left foot 01/26/2023 Open wound of second toe 01/26/2023 Other acute sinusitis 01/26/2023 Primary hypertension ([facility]) 01/26/2023 Tobacco dependence 01/26/2023 Past Surgical History: [...] , wrist extensors , wrist flexor , a p manager strength 5/5. LUE Strength deltoid , biceps , triceps , wrist extensors , wrist flexor , a p manager strength 5/5. RLE Strength illopsoas, quadriceps, tibialis [...] reflex 1+ . Forrest's sign negative. Coordination: Srbikz-ga-elyz testing and rapid alternating movements are normal [...] and return instructions documented in this encounter [facility] 02-10-2024 History of Presen t illness Narrative [...] (BMI) of 40.0 to 44.9 in adult ([facility]) 01/26/2023 COPD mixed type ([facility]) 01/26/2023 DENIES HX OF BLOOD BORNE DISEASES Depression ([facility]) Fibromyalgia Open wound of left foot 01/26/2023 Open wound of second toe 01/26/2023 Other acute sinusitis 01/26/2023 Primary hypertension ([facility]) 01/26/2023 Tobacco dependence 01/26/2023 Past Surgical History: [...] of the risks of continued smoking: stroke, WI, all forms of cancer, lung disease, and [...] possible Current med: omeprazole Insurance correspondance about shelter use of PPI Pt has been counseled on the risks of long term acute care registered nurse use, would like to continue Associated Problem(s): [...] . Compliant: no documented in this encounter [facility] 01-03-2024 History of Presen t illness Narrative [...] (BMI) of 40.0 to 44.9 in adult ([facility]) 01/26/2023 COPD mixed type ([facility]) 01/26/2023 DENIES HX OF BLOOD BORNE DISEASES Depression ([facility]) Fibromyalgia Open wound of left foot 01/26/2023 Open wound of second toe 01/26/2023 Other acute sinusitis 01/26/2023 Primary hypertension ([facility]) 01/26/2023 Tobacco dependence 01/26/2023 Past Surgical History: [...] of the risks of continued smoking: stroke, WI, all forms of cancer, lung disease, and [...] of the risks of continued smoking: stroke, WI, all forms of cancer, lung disease, and . Options for quitting smoking include: cold turkey, hypnosis, acupuncture, nicotine replacement meds (gum, lozenges, and patches), Buproprion, and Varenicline. At this time pt is encouraged to evaluate their goals for wanting to quit smoking, and reach out to provider when ready to start this process Associated Problem(s): Fibromyalgia Continue with Lyreese VILLANUEVARRS reviewed Associated Problem(s): Primary hypertension (CMS/HCC) Please [...] use of PAP documented in this encounter [facility] 01-03-2024 Instructions Jaymie Phoenix NP - 01/03/2024 10:30 AM EST Referral to movie shot cameraman Consider patches documented in this encounter [facility] 03-25-2023 History of Presen t illness Narrative [...] (BMI) of 40.0 to 44.9 in adult ([facility]) 01/26/2023 COPD mixed type ([facility]) 01/26/2023 DENIES HX OF BLOOD BORNE DISEASES Depression ([facility]) Fibromyalgia Open wound of left foot 01/26/2023 [...] 2 views documented in this encounter [facility] 03-16-2023 History of Presen t illness Narrative [...] (BMI) of 40.0 to 44.9 in adult ([facility]) 01/26/2023 COPD mixed type ([facility]) 01/26/2023 DENIES HX OF BLOOD BORNE DISEASES Depression ([facility]) Fibromyalgia Open wound of left foot 01/26/2023 Open wound of second toe 01/26/2023 Other acute sinusitis 01/26/2023 Primary hypertension ([facility]) 01/26/2023 Tobacco dependence 01/26/2023 Past Surgical History: [...] adult (Z68.41) documented in this encounter [facility] 04-30-2022 Note CONSULTATION CONSULTATION DATE: 04/30/2022 TO: [...] office on an as needed basis. [facility] 02-25-2022 Note OPERATIVE NOTE OPERATION [...] good condition. CC: Patient's family physician [facility] 02-06-2022 Note CONSULTATION CONSULTATION DATE: [...] followed up in the clinic thereafter. [facility] 02-03-2022 Note Chief Complaint consultation [...] significant for x 2, tubal ligation, and DRWE with bso; no asa or NSAID use, [...] 30 days Tobacco (more content not included)... [facility] Comment on above: Result Comment: Elec tronically [...] followed up in the clinic thereafter. [facility] 12-09-2021 Note CONSULTATION CONSULTATION DATE: [...] would like to proceed. CC: Jaymie Phoenix, HEADER SET UP OPERATOR [facility] Evaluation + Plan note No data available for this section General Surgery [place] Evaluation note Diagnosis COPD mixed type (CMS/HCC)- [...] dependence Tobacco use disorder BMI 40.0-44.9, adult ([facility]) Body mass index [BMI] 40.0-44.9, adult (Z68.41) Primary hypertension (CMS/HCC) Unspecified essential hypertension Bilateral lower extremity edema Edema of right lower extremity- Primary BMI 40.0-44.9, adult ([facility]) Shortness of breath COPD mixed type (CMS/HCC) Primary hypertension (CMS/HCC) Unspecified essential hypertension Bilateral lower extremity edema Bilateral lower extremity edema- Primary Primary hypertension (CMS/HCC) Unspecified essential hypertension COPD mixed type (CMS/HCC) Class 3 severe obesity due to excess calories without serious comorbidity with body mass index (BMI) of 40.0 to 44.9 in adult ([facility]) Tobacco dependence Tobacco use disorder Bilateral lower extremity edema- Primary Tobacco dependence Tobacco use disorder BMI 40.0-44.9, adult ([facility]) COPD mixed type ([facility]) WINSOME (obstructive sleep apnea) Obstructive sleep apnea (adult) (pediatric) Encounter for subsequent annual wellness visit (AWV) in Medicare patient- Primary Edema of right lower extremity Anxiety and depression ([facility]) Tobacco dependence Tobacco use disorder BMI 40.0-44.9, adult ([facility]) Fibromyalgia Unspecified myalgia and myositis Primary hypertension ([facility]) Unspecified essential hypertension COPD mixed type ([facility]) Mixed hyperlipidemia ([facility]) Mixed hyperlipidemia documented in this encounter [facility]* Diagnosis Primary hypertension ([facility])- Primary Unspecified essential hypertension Mixed hyperlipidemia (CMS/HCC) Mixed hyperlipidemia Fibromyalgia Unspecified myalgia and myositis Migraine without aura and without status migrainosus, not intractable ([facility]) Class 3 severe obesity due to excess calories without serious comorbidity with body mass index (BMI) of 40.0 to 44.9 in adult ([facility]) Tobacco dependence Tobacco use disorder Bilateral lower extremity edema Acute non-recurrent sinusitis of other sinus COPD mixed type (CMS/HCC) Open wound of second toe of left foot, initial encounter Open wound of left foot, initial encounter COPD mixed type (CMS/HCC)- Primary Tobacco dependence Tobacco use disorder BMI 40.0-44.9, adult ([facility]) Body mass index [BMI] 40.0-44.9, adult (Z68.41) Primary hypertension (CMS/HCC) Unspecified essential hypertension Bilateral lower extremity edema Edema of right lower extremity- Primary BMI 40.0-44.9, adult ([facility]) Shortness of breath COPD mixed type (CMS/HCC) Primary hypertension (CMS/HCC) Unspecified essential hypertension Bilateral lower extremity edema Bilateral lower extremity edema- Primary Primary hypertension (CMS/HCC) Unspecified essential hypertension COPD mixed type (CMS/HCC) Class 3 severe obesity due to excess calories without serious comorbidity with body mass index (BMI) of 40.0 to 44.9 in adult ([facility]) Tobacco dependence Tobacco use disorder Bilateral lower extremity edema- Primary Tobacco dependence Tobacco use disorder BMI 40.0-44.9, adult ([facility]) COPD mixed type ([facility]) WINSOME (obstructive sleep apnea) Obstructive sleep apnea (adult) (pediatric) Encounter for subsequent annual wellness visit (AWV) in Medicare patient- Primary Edema of right lower extremity Anxiety and depression ([facility]) Tobacco dependence Tobacco use disorder BMI 40.0-44.9, adult ([facility]) Fibromyalgia Unspecified myalgia and myositis Primary hypertension ([facility]) Unspecified essential hypertension COPD mixed type ([facility]) Fibromyalgia Unspecified myalgia and myositis documented in this encounter [facility]* Diagnosis Primary hypertension ([facility])- Primary Unspecified essential hypertension Mixed hyperlipidemia ([facility]) Mixed hyperlipidemia Fibromyalgia Unspecified myalgia and myositis Migraine without aura and without status migrainosus, not intractable ([facility]) Class 3 severe obesity due to excess calories without serious comorbidity with body mass index (BMI) of 40.0 to 44.9 in adult ([facility]) Tobacco dependence Tobacco use disorder Bilateral lower extremity edema Acute non-recurrent sinusitis of other sinus COPD mixed type (CMS/HCC) Open wound of second toe of left foot, initial encounter Open wound of left foot, initial encounter COPD mixed type (CMS/HCC)- Primary Tobacco dependence Tobacco use disorder BMI 40.0-44.9, adult ([facility]) Body mass index [BMI] 40.0-44.9, adult (Z68.41) Primary hypertension (CMS/HCC) Unspecified essential hypertension Bilateral lower extremity edema Edema of right lower extremity- Primary BMI 40.0-44.9, adult ([facility]) Shortness of breath COPD mixed type ([facility]) Primary hypertension ([facility]) Unspecified essential hypertension Bilateral lower extremity edema Bilateral lower extremity edema- Primary Primary hypertension ([facility]) Unspecified essential hypertension COPD mixed type (CMS/HCC) Class 3 severe obesity due to excess calories without serious comorbidity with body mass index (BMI) of 40.0 to 44.9 in adult ([facility]) Tobacco dependence Tobacco use disorder Bilateral lower extremity edema- Primary Tobacco dependence Tobacco use disorder BMI 40.0-44.9, adult ([facility]) COPD mixed type ([facility]) WINSOME (obstructive sleep apnea) Obstructive sleep apnea (adult) (pediatric) Encounter for subsequent annual wellness visit (AWV) in Medicare patient- Primary Edema of right lower extremity Anxiety and depression ([facility]) Tobacco dependence Tobacco use disorder BMI 40.0-44.9, adult ([facility]) Fibromyalgia Unspecified myalgia and myositis Primary hypertension ([facility]) Unspecified essential hypertension COPD mixed type ([facility]) WINSOME (obstructive sleep apnea)- Primary Obstructive sleep apnea (adult) (pediatric) COPD mixed type ([facility]) Primary hypertension ([facility]) Unspecified essential hypertension Fibromyalgia Unspecified myalgia and myositis BMI 40.0-44.9, adult ([facility]) Tobacco dependence Tobacco use disorder Mixed hyperlipidemia ([facility]) Mixed hyperlipidemia Vitamin D deficiency Vitamin B12 deficiency Other B-complex deficiencies COPD with acute exacerbation ([facility]) documented in this encounter [facility]* Diagnosis Fibromyalgia Unspecified myalgia and myositis Gastro-esophageal reflux disease without esophagitis documented in this encounter [facility]* Diagnosis Primary hypertension ([facility])- Primary Unspecified essential hypertension Mixed hyperlipidemia ([facility]) Mixed hyperlipidemia Fibromyalgia Unspecified myalgia and myositis Migraine without aura and without status migrainosus, not intractable ([facility]) Class 3 severe obesity due to excess calories without serious comorbidity with body mass index (BMI) of 40.0 to 44.9 in adult ([facility]) Tobacco dependence Tobacco use disorder Bilateral lower extremity edema Acute non-recurrent sinusitis of other sinus COPD mixed type ([facility]) Open wound of second toe of left foot, initial encounter Open wound of left foot, initial encounter COPD mixed type ([facility])- Primary Tobacco dependence Tobacco use disorder BMI 40.0-44.9, adult ([facility]) Body mass index [BMI] 40.0-44.9, adult (Z68.41) Primary hypertension ([facility]) Unspecified essential hypertension Bilateral lower extremity edema Edema of right lower extremity- Primary BMI 40.0-44.9, adult ([facility]) Shortness of breath COPD mixed type ([facility]) Primary hypertension ([facility]) Unspecified essential hypertension Bilateral lower extremity edema Bilateral lower extremity edema- Primary Primary hypertension ([facility]) Unspecified essential hypertension COPD mixed type ([facility]) Class 3 severe obesity due to excess calories without serious comorbidity with body mass index (BMI) of 40.0 to 44.9 in adult ([facility]) Tobacco dependence Tobacco use disorder Bilateral lower extremity edema- Primary Tobacco dependence Tobacco use disorder BMI 40.0-44.9, adult ([facility]) COPD mixed type ([facility]) WINSOME (obstructive sleep apnea) Obstructive sleep apnea (adult) (pediatric) Encounter for subsequent annual wellness visit (AWV) in Medicare patient- Primary Edema of right lower extremity Anxiety and depression ([facility]) Tobacco dependence Tobacco use disorder BMI 40.0-44.9, adult ([facility]) Fibromyalgia Unspecified myalgia and myositis Primary hypertension ([facility]) Unspecified essential hypertension COPD mixed type ([facility]) WINSOME (obstructive sleep apnea)- Primary Obstructive sleep apnea (adult) (pediatric) COPD mixed type ([facility]) Primary hypertension ([facility]) Unspecified essential hypertension Fibromyalgia Unspecified myalgia and myositis BMI 40.0-44.9, adult ([facility]) Tobacco dependence Tobacco use disorder Mixed hyperlipidemia ([facility]) Mixed hyperlipidemia Vitamin D deficiency Vitamin B12 deficiency Other B-complex deficiencies COPD with acute exacerbation ([facility]) Fibromyalgia Unspecified myalgia and myositis documented in this encounter [facility]* Diagnosis Primary hypertension ([facility])- Primary Unspecified essential hypertension Mixed hyperlipidemia ([facility]) Mixed hyperlipidemia Fibromyalgia Unspecified myalgia and myositis Migraine without aura and without status migrainosus, not intractable ([facility]) Class 3 severe obesity due to excess calories without serious comorbidity with body mass index (BMI) of 40.0 to 44.9 in adult ([facility]) Tobacco dependence Tobacco use disorder Bilateral lower extremity edema Acute non-recurrent sinusitis of other sinus COPD mixed type ([facility]) Open wound of second toe of left foot, initial encounter Open wound of left foot, initial encounter COPD mixed type ([facility])- Primary Tobacco dependence Tobacco use disorder BMI 40.0-44.9, adult ([facility]) Body mass index [BMI] 40.0-44.9, adult (Z68.41) Primary hypertension ([facility]) Unspecified essential hypertension Bilateral lower extremity edema Edema of right lower extremity- Primary BMI 40.0-44.9, adult ([facility]) Shortness of breath COPD mixed type ([facility]) Primary hypertension ([facility]) Unspecified essential hypertension Bilateral lower extremity edema Bilateral lower extremity edema- Primary Primary hypertension ([facility]) Unspecified essential hypertension COPD mixed type ([facility]) Class 3 severe obesity due to excess calories without serious comorbidity with body mass index (BMI) of 40.0 to 44.9 in adult ([facility]) Tobacco dependence Tobacco use disorder Bilateral lower extremity edema- Primary Tobacco dependence Tobacco use disorder BMI 40.0-44.9, adult ([facility]) COPD mixed type ([facility]) WINSOME (obstructive sleep apnea) Obstructive sleep apnea (adult) (pediatric) Encounter for subsequent annual wellness visit (AWV) in Medicare patient- Primary Edema of right lower extremity Anxiety and depression ([facility]) Tobacco dependence Tobacco use disorder BMI 40.0-44.9, adult ([facility]) Fibromyalgia Unspecified myalgia and myositis Primary hypertension ([facility]) Unspecified essential hypertension COPD mixed type ([facility]) WINSOME (obstructive sleep apnea)- Primary Obstructive sleep apnea (adult) (pediatric) COPD mixed type ([facility]) Primary hypertension ([facility]) Unspecified essential hypertension Fibromyalgia Unspecified myalgia and myositis BMI 40.0-44.9, adult ([facility]) Tobacco dependence Tobacco use disorder Mixed hyperlipidemia ([facility]) Mixed hyperlipidemia Vitamin D deficiency Vitamin B12 deficiency Other B-complex deficiencies COPD with acute exacerbation ([facility]) COPD with acute exacerbation ([facility])- Primary Morbid (severe) obesity due to excess calories ([facility]) Body mass index (BMI) 40.0-44.9, adult ([facility]) WINSOME (obstructive sleep apnea) Obstructive sleep apnea (adult) (pediatric) COPD mixed type ([facility]) Gastroesophageal reflux disease, unspecified whether esophagitis present Tobacco dependence Tobacco use disorder Gastro-esophageal reflux disease without esophagitis Tremor Abnormal involuntary movements documented in this encounter [facility]* Diagnosis Primary hypertension ([facility])- Primary Unspecified essential hypertension Mixed hyperlipidemia ([facility]) Mixed hyperlipidemia Fibromyalgia Unspecified myalgia and myositis Migraine without aura and without status migrainosus, not intractable ([facility]) Class 3 severe obesity due to excess calories without serious comorbidity with body mass index (BMI) of 40.0 to 44.9 in adult ([facility]) Tobacco dependence Tobacco use disorder Bilateral lower extremity edema Acute non-recurrent sinusitis of other sinus COPD mixed type ([facility]) Open wound of second toe of left foot, initial encounter Open wound of left foot, initial encounter COPD mixed type ([facility])- Primary Tobacco dependence Tobacco use disorder BMI 40.0-44.9, adult ([facility]) Body mass index [BMI] 40.0-44.9, adult (Z68.41) Primary hypertension ([facility]) Unspecified essential hypertension Bilateral lower extremity edema Edema of right lower extremity- Primary BMI 40.0-44.9, adult ([facility]) Shortness of breath COPD mixed type ([facility]) Primary hypertension ([facility]) Unspecified essential hypertension Bilateral lower extremity edema Bilateral lower extremity edema- Primary Primary hypertension ([facility]) Unspecified essential hypertension COPD mixed type ([facility]) Class 3 severe obesity due to excess calories without serious comorbidity with body mass index (BMI) of 40.0 to 44.9 in adult ([facility]) Tobacco dependence Tobacco use disorder Bilateral lower extremity edema- Primary Tobacco dependence Tobacco use disorder BMI 40.0-44.9, adult ([facility]) COPD mixed type ([facility]) WINSOME (obstructive sleep apnea) Obstructive sleep apnea (adult) (pediatric) Encounter for subsequent annual wellness visit (AWV) in Medicare patient- Primary Edema of right lower extremity Anxiety and depression ([facility]) Tobacco dependence Tobacco use disorder BMI 40.0-44.9, adult ([facility]) Fibromyalgia Unspecified myalgia and myositis Primary hypertension ([facility]) Unspecified essential hypertension COPD mixed type ([facility]) WINSOME (obstructive sleep apnea)- Primary Obstructive sleep apnea (adult) (pediatric) COPD mixed type ([facility]) Primary hypertension ([facility]) Unspecified essential hypertension Fibromyalgia Unspecified myalgia and myositis BMI 40.0-44.9, adult ([facility]) Tobacco dependence Tobacco use disorder Mixed hyperlipidemia ([facility]) Mixed hyperlipidemia Vitamin D deficiency Vitamin B12 deficiency Other B-complex deficiencies COPD with acute exacerbation ([facility]) COPD with acute exacerbation ([facility])- Primary Morbid (severe) obesity due to excess calories ([facility]) Body mass index (BMI) 40.0-44.9, adult ([facility]) WINSOME (obstructive sleep apnea) Obstructive sleep apnea (adult) (pediatric) COPD mixed type ([facility]) Gastroesophageal reflux disease, unspecified whether esophagitis present Tobacco dependence Tobacco use disorder Gastro-esophageal reflux disease without esophagitis Tremor Abnormal involuntary movements 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 Parkinsonism Tremor Abnormal involuntary movements documented in this encounter [facility]* Diagnosis Primary hypertension ([facility])- Primary Unspecified essential hypertension Mixed hyperlipidemia ([facility]) Mixed hyperlipidemia Fibromyalgia Unspecified myalgia and myositis Migraine without aura and without status migrainosus, not intractable ([facility]) Class 3 severe obesity due to excess calories without serious comorbidity with body mass index (BMI) of 40.0 to 44.9 in adult ([facility]) Tobacco dependence Tobacco use disorder Bilateral lower extremity edema Acute non-recurrent sinusitis of other sinus COPD mixed type ([facility]) Open wound of second toe of left foot, initial encounter Open wound of left foot, initial encounter COPD mixed type ([facility])- Primary Tobacco dependence Tobacco use disorder BMI 40.0-44.9, adult ([facility]) Body mass index [BMI] 40.0-44.9, adult (Z68.41) Primary hypertension ([facility]) Unspecified essential hypertension Bilateral lower extremity edema Edema of right lower extremity- Primary BMI 40.0-44.9, adult ([facility]) Shortness of breath COPD mixed type ([facility]) Primary hypertension ([facility]) Unspecified essential hypertension Bilateral lower extremity edema Bilateral lower extremity edema- Primary Primary hypertension ([facility]) Unspecified essential hypertension COPD mixed type ([facility]) Class 3 severe obesity due to excess calories without serious comorbidity with body mass index (BMI) of 40.0 to 44.9 in adult ([facility]) Tobacco dependence Tobacco use disorder Bilateral lower extremity edema- Primary Tobacco dependence Tobacco use disorder BMI 40.0-44.9, adult ([facility]) COPD mixed type ([facility]) WINSOME (obstructive sleep apnea) Obstructive sleep apnea (adult) (pediatric) Encounter for subsequent annual wellness visit (AWV) in Medicare patient- Primary Edema of right lower extremity Anxiety and depression ([facility]) Tobacco dependence Tobacco use disorder BMI 40.0-44.9, adult ([facility]) Fibromyalgia Unspecified myalgia and myositis Primary hypertension ([facility]) Unspecified essential hypertension COPD mixed type ([facility]) WINSOME (obstructive sleep apnea)- Primary Obstructive sleep apnea (adult) (pediatric) COPD mixed type ([facility]) Primary hypertension ([facility]) Unspecified essential hypertension Fibromyalgia Unspecified myalgia and myositis BMI 40.0-44.9, adult ([facility]) Tobacco dependence Tobacco use disorder Mixed hyperlipidemia ([facility]) Mixed hyperlipidemia Vitamin D deficiency Vitamin B12 deficiency Other B-complex deficiencies COPD with acute exacerbation ([facility]) COPD with acute exacerbation ([facility])- Primary Morbid (severe) obesity due to excess calories ([facility]) Body mass index (BMI) 40.0-44.9, adult ([facility]) WINSOME (obstructive sleep apnea) Obstructive sleep apnea (adult) (pediatric) COPD mixed type ([facility]) Gastroesophageal reflux disease, unspecified whether esophagitis present Tobacco dependence Tobacco use disorder Gastro-esophageal reflux disease without esophagitis Tremor Abnormal involuntary movements Fibromyalgia Unspecified myalgia and myositis Localized edema Edema Mixed hyperlipidemia ([facility]) Mixed hyperlipidemia documented in this encounter [facility]* Diagnosis Primary hypertension ([facility])- Primary Unspecified essential hypertension Mixed hyperlipidemia ([facility]) Mixed hyperlipidemia Fibromyalgia Unspecified myalgia and myositis Migraine without aura and without status migrainosus, not intractable ([facility]) Class 3 severe obesity due to excess calories without serious comorbidity with body mass index (BMI) of 40.0 to 44.9 in adult ([facility]) Tobacco dependence Tobacco use disorder Bilateral lower extremity edema Acute non-recurrent sinusitis of other sinus COPD mixed type ([facility]) Open wound of second toe of left foot, initial encounter Open wound of left foot, initial encounter COPD mixed type ([facility])- Primary Tobacco dependence Tobacco use disorder BMI 40.0-44.9, adult ([facility]) Body mass index [BMI] 40.0-44.9, adult (Z68.41) Primary hypertension ([facility]) Unspecified essential hypertension Bilateral lower extremity edema Edema of right lower extremity- Primary BMI 40.0-44.9, adult ([facility]) Shortness of breath COPD mixed type ([facility]) Primary hypertension ([facility]) Unspecified essential hypertension Bilateral lower extremity edema Bilateral lower extremity edema- Primary Primary hypertension ([facility]) Unspecified essential hypertension COPD mixed type ([facility]) Class 3 severe obesity due to excess calories without serious comorbidity with body mass index (BMI) of 40.0 to 44.9 in adult ([facility]) Tobacco dependence Tobacco use disorder Bilateral lower extremity edema- Primary Tobacco dependence Tobacco use disorder BMI 40.0-44.9, adult ([facility]) COPD mixed type ([facility]) WINSOME (obstructive sleep apnea) Obstructive sleep apnea (adult) (pediatric) Encounter for subsequent annual wellness visit (AWV) in Medicare patient- Primary Edema of right lower extremity Anxiety and depression ([facility]) Tobacco dependence Tobacco use disorder BMI 40.0-44.9, adult ([facility]) Fibromyalgia Unspecified myalgia and myositis Primary hypertension ([facility]) Unspecified essential hypertension COPD mixed type ([facility]) WINSOME (obstructive sleep apnea)- Primary Obstructive sleep apnea (adult) (pediatric) COPD mixed type ([facility]) Primary hypertension ([facility]) Unspecified essential hypertension Fibromyalgia Unspecified myalgia and myositis BMI 40.0-44.9, adult ([facility]) Tobacco dependence Tobacco use disorder Mixed hyperlipidemia ([facility]) Mixed hyperlipidemia Vitamin D deficiency Vitamin B12 deficiency Other B-complex deficiencies COPD with acute exacerbation ([facility]) COPD with acute exacerbation ([facility])- Primary Morbid (severe) obesity due to excess calories ([facility]) Body mass index (BMI) 40.0-44.9, adult ([facility]) WINSOME (obstructive sleep apnea) Obstructive sleep apnea (adult) (pediatric) COPD mixed type (CMS/HCC) Gastroesophageal reflux disease, unspecified whether esophagitis present Tobacco dependence Tobacco use disorder Gastro-esophageal reflux disease without esophagitis Tremor Abnormal involuntary movements Environmental and seasonal allergies- Primary COPD mixed type (CMS/HCC) documented in this encounter [facility]* Diagnosis Primary hypertension (CMS/HCC)- [...] dependence Tobacco use disorder BMI 40.0-44.9, adult ([facility]) Body mass index [BMI] 40.0-44.9, adult (Z68.41) [...] Unspecified myalgia and myositis BMI 40.0-44.9, adult ([facility]) Tobacco dependence Tobacco use disorder Mixed hyperlipidemia (CMS/HCC) Mixed hyperlipidemia Vitamin D deficiency Vitamin B12 deficiency Other B-complex deficiencies COPD with acute exacerbation (CMS/HCC) COPD with acute exacerbation ([facility])- Primary Morbid (severe) obesity due to excess calories ([facility]) Body mass index (BMI) 40.0-44.9, adult ([facility]) WINSOME (obstructive sleep apnea) Obstructive sleep apnea (adult) (pediatric) COPD mixed type (CMS/HCC) Gastroesophageal reflux disease, unspecified whether esophagitis present Tobacco dependence Tobacco use disorder Gastro-esophageal reflux disease without esophagitis Tremor Abnormal involuntary movements Fibromyalgia Unspecified myalgia and myositis documented in this encounter [facility]* Diagnosis Primary hypertension ([facility])- Primary Unspecified essential hypertension Mixed hyperlipidemia ([facility]) Mixed hyperlipidemia Fibromyalgia Unspecified myalgia and myositis Migraine without aura and without status migrainosus, not intractable ([facility]) Class 3 severe obesity due to excess [...] dependence Tobacco use disorder BMI 40.0-44.9, adult ([facility]) Body mass index [BMI] 40.0-44.9, adult (Z68.41) Primary hypertension (CMS/HCC) Unspecified essential hypertension Bilateral lower extremity edema Edema of right lower extremity- Primary BMI 40.0-44.9, adult ([facility]) Shortness of breath COPD mixed type (CMS/HCC) [...] dependence Tobacco use disorder BMI 40.0-44.9, adult ([facility]) COPD mixed type ([facility]) WINSOME (obstructive sleep apnea) Obstructive sleep apnea (adult) (pediatric) Encounter for subsequent annual wellness visit (AWV) in Medicare patient- Primary Edema of right lower extremity Anxiety and depression ([facility]) Tobacco dependence Tobacco use disorder BMI 40.0-44.9, adult ([facility]) Fibromyalgia Unspecified myalgia and myositis Primary hypertension ([facility]) Unspecified essential hypertension COPD mixed type ([facility]) WINSOME (obstructive sleep apnea)- Primary Obstructive sleep apnea (adult) (pediatric) COPD mixed type ([facility]) Primary hypertension ([facility]) Unspecified essential hypertension Fibromyalgia Unspecified myalgia and myositis BMI 40.0-44.9, adult ([facility]) Tobacco dependence Tobacco use disorder Mixed hyperlipidemia ([facility]) Mixed hyperlipidemia Vitamin D deficiency Vitamin B12 deficiency Other B-complex deficiencies COPD with acute exacerbation ([facility]) COPD with acute exacerbation ([facility])- Primary Morbid (severe) obesity due to excess calories ([facility]) Body mass index (BMI) 40.0-44.9, adult ([facility]) WINSOME (obstructive sleep apnea) Obstructive sleep apnea (adult) (pediatric) COPD mixed type ([facility]) Gastroesophageal reflux disease, unspecified whether esophagitis present Tobacco dependence Tobacco use disorder Gastro-esophageal reflux disease without esophagitis Tremor Abnormal involuntary movements Mixed hyperlipidemia ([facility]) Mixed hyperlipidemia documented in this encounter [facility]* Diagnosis Primary hypertension ([facility])- Primary Unspecified essential hypertension Mixed hyperlipidemia ([facility]) Mixed hyperlipidemia Fibromyalgia Unspecified myalgia and myositis Migraine without aura and without status migrainosus, not intractable ([facility]) Class 3 severe obesity due to excess calories without serious comorbidity with body mass index (BMI) of 40.0 to 44.9 in adult Tobacco dependence Tobacco use disorder Bilateral lower extremity edema Acute non-recurrent sinusitis of other sinus COPD mixed type ([facility]) Open wound of second toe of left foot, initial encounter Open wound of left foot, initial encounter COPD mixed type ([facility])- Primary Tobacco dependence Tobacco use disorder BMI 40.0-44.9, adult ([facility]) Body mass index [BMI] 40.0-44.9, adult (Z68.41) Primary hypertension (CMS/HCC) Unspecified essential hypertension Bilateral lower extremity edema Edema of right lower extremity- Primary BMI 40.0-44.9, adult ([facility]) Shortness of breath COPD mixed type (CMS/HCC) [...] dependence Tobacco use disorder BMI 40.0-44.9, adult ([facility]) COPD mixed type ([facility]) WINSOME (obstructive sleep apnea) Obstructive sleep apnea (adult) (pediatric) Encounter for subsequent annual wellness visit (AWV) in Medicare patient- Primary Edema of right lower extremity Anxiety and depression ([facility]) Tobacco dependence Tobacco use disorder BMI 40.0-44.9, adult ([facility]) Fibromyalgia Unspecified myalgia and myositis Primary hypertension ([facility]) Unspecified essential hypertension COPD mixed type (CMS/HCC) WINSOME (obstructive sleep apnea)- Primary Obstructive sleep apnea (adult) (pediatric) COPD mixed type (CMS/HCC) Primary hypertension ([facility]) Unspecified essential hypertension Fibromyalgia Unspecified myalgia and myositis BMI 40.0-44.9, adult ([facility]) Tobacco dependence Tobacco use disorder Mixed hyperlipidemia ([facility]) Mixed hyperlipidemia Vitamin D deficiency Vitamin B12 deficiency Other B-complex deficiencies COPD with acute exacerbation ([facility]) COPD with acute exacerbation ([facility])- Primary Morbid (severe) obesity due to excess calories ([facility]) Body mass index (BMI) 40.0-44.9, adult ([facility]) WINSOME (obstructive sleep apnea) Obstructive sleep apnea (adult) (pediatric) COPD mixed type ([facility]) Gastroesophageal reflux disease, unspecified whether esophagitis present Tobacco dependence Tobacco use disorder Gastro-esophageal reflux disease without esophagitis Tremor Abnormal involuntary movements Tobacco dependence- Primary Tobacco use disorder documented in this encounter [facility]* Diagnosis Primary hypertension ([facility])- Primary Unspecified essential hypertension Mixed hyperlipidemia ([facility]) Mixed hyperlipidemia Fibromyalgia Unspecified myalgia and myositis Migraine without aura and without status migrainosus, not intractable ([facility]) Class 3 severe obesity due to [...] dependence Tobacco use disorder BMI 40.0-44.9, adult ([facility]) Body mass index [BMI] 40.0-44.9, adult (Z68.41) Primary hypertension ([facility]) Unspecified essential hypertension Bilateral lower extremity edema Edema of right lower extremity- Primary BMI 40.0-44.9, adult ([facility]) Shortness of breath COPD mixed type (CMS/HCC) Primary hypertension (CMS/HCC) Unspecified essential hypertension Bilateral lower extremity edema Bilateral lower extremity edema- Primary Primary hypertension ([facility]) Unspecified essential hypertension COPD mixed type ([facility]) Class 3 severe obesity due to excess calories without serious comorbidity with body mass index (BMI) of 40.0 to 44.9 in adult Tobacco dependence Tobacco use disorder Bilateral lower extremity edema- Primary Tobacco dependence Tobacco use disorder BMI 40.0-44.9, adult ([facility]) COPD mixed type ([facility]) WINSOME (obstructive sleep apnea) Obstructive sleep apnea (adult) (pediatric) Encounter for subsequent annual wellness visit (AWV) in Medicare patient- Primary Edema of right lower extremity Anxiety and depression ([facility]) Tobacco dependence Tobacco use disorder BMI 40.0-44.9, adult ([facility]) Fibromyalgia Unspecified myalgia and myositis Primary hypertension (CMS/HCC) Unspecified essential hypertension COPD mixed type (CMS/HCC) WINSOME (obstructive sleep apnea)- Primary Obstructive sleep apnea (adult) (pediatric) COPD mixed type (CMS/HCC) Primary hypertension (CMS/HCC) Unspecified essential hypertension Fibromyalgia Unspecified myalgia and myositis BMI 40.0-44.9, adult ([facility]) Tobacco dependence Tobacco use disorder Mixed hyperlipidemia ([facility]) Mixed hyperlipidemia Vitamin D deficiency Vitamin B12 deficiency Other B-complex deficiencies COPD with acute exacerbation ([facility]) COPD with acute exacerbation ([facility])- Primary Morbid (severe) obesity due to excess calories ([facility]) Body mass index (BMI) 40.0-44.9, adult ([facility]) WINSOME (obstructive sleep apnea) Obstructive sleep apnea (adult) (pediatric) COPD mixed type ([facility]) Gastroesophageal reflux disease, unspecified whether esophagitis present Tobacco dependence Tobacco use disorder Gastro-esophageal reflux disease without esophagitis Tremor Abnormal involuntary movements Fibromyalgia Unspecified myalgia and myositis documented in this encounter [facility]* Diagnosis Primary hypertension- Primary Unspecified essential hypertension Mixed hyperlipidemia Mixed hyperlipidemia Fibromyalgia Unspecified myalgia and myositis Migraine without aura and without status migrainosus, not intractable Class 3 severe obesity due to excess calories without serious comorbidity with body mass index (BMI) of 40.0 to 44.9 in adult ([facility]) Tobacco dependence Tobacco use disorder Bilateral lower extremity edema Acute non-recurrent sinusitis of other sinus COPD mixed type ([facility]) Open wound of second toe of left foot, initial encounter Open wound of left foot, initial encounter COPD mixed type (HCC)- Primary Tobacco dependence Tobacco use disorder BMI 40.0-44.9, adult ([facility]) Body mass index [BMI] 40.0-44.9, adult (Z68.41) Primary hypertension Unspecified essential hypertension Bilateral lower extremity edema Edema of right lower extremity- Primary BMI 40.0-44.9, adult ([facility]) Shortness of breath COPD mixed type (HCC) Primary hypertension Unspecified essential hypertension Bilateral lower extremity edema Bilateral lower extremity edema- Primary Primary hypertension Unspecified essential hypertension COPD mixed type (HCC) Class 3 severe obesity due to excess calories without serious comorbidity with body mass index (BMI) of 40.0 to 44.9 in adult ([facility]) Tobacco dependence Tobacco use disorder Bilateral lower extremity edema- Primary Tobacco dependence Tobacco use disorder BMI 40.0-44.9, adult ([facility]) COPD mixed type ([facility]) WINSOME (obstructive sleep apnea) Obstructive sleep apnea (adult) (pediatric) Encounter for subsequent annual wellness visit (AWV) in Medicare patient- Primary Edema of right lower extremity Anxiety and depression Tobacco dependence Tobacco use disorder BMI 40.0-44.9, adult ([facility]) Fibromyalgia Unspecified myalgia and myositis Primary hypertension Unspecified essential hypertension COPD mixed type (HCC) WINSOME (obstructive sleep apnea)- Primary Obstructive sleep apnea (adult) (pediatric) COPD mixed type (HCC) Primary hypertension Unspecified essential hypertension Fibromyalgia Unspecified myalgia and myositis BMI 40.0-44.9, adult ([facility]) Tobacco dependence Tobacco use disorder Mixed hyperlipidemia Mixed hyperlipidemia Vitamin D deficiency Vitamin B12 deficiency Other B-complex deficiencies COPD with acute exacerbation (HCC) COPD with acute exacerbation (HCC)- Primary Morbid (severe) obesity due to excess calories ([facility]) Body mass index (BMI) 40.0-44.9, adult ([facility]) WINSOME (obstructive sleep apnea) Obstructive sleep apnea (adult) (pediatric) COPD mixed type (HCC) Gastroesophageal reflux disease, unspecified whether esophagitis present Tobacco dependence Tobacco use disorder Gastro-esophageal reflux disease without esophagitis Tremor Abnormal involuntary movements Encounter for subsequent annual wellness visit (AWV) in Medicare patient- Primary Chronic kidney disease, stage 3a ([facility]) WINSOME (obstructive sleep apnea) Obstructive sleep apnea (adult) (pediatric) COPD mixed type ([facility]) Gastroesophageal reflux disease, unspecified whether esophagitis present Bilateral lower extremity edema Anxiety and depression Tobacco dependence Tobacco use disorder Mixed hyperlipidemia Mixed hyperlipidemia Fibromyalgia Unspecified myalgia and myositis Environmental and seasonal allergies Gastro-esophageal reflux disease without esophagitis Personal history of other diseases of the nervous system and sense organs Screening for lung cancer documented in this encounter [facility]* Diagnosis Primary hypertension- Primary Unspecified essential hypertension Mixed hyperlipidemia Mixed hyperlipidemia Fibromyalgia Unspecified myalgia and myositis Migraine without aura and without status migrainosus, not intractable Class 3 severe obesity due to excess calories without serious comorbidity with body mass index (BMI) of 40.0 to 44.9 in adult ([facility] Tobacco dependence Tobacco use disorder Bilateral lower extremity edema Acute non-recurrent sinusitis of other sinus COPD mixed type ([facility]) Open wound of second toe of left foot, initial encounter Open wound of left foot, initial encounter COPD mixed type (HCC)- Primary Tobacco dependence Tobacco use disorder BMI 40.0-44.9, adult ([facility] Body mass index [BMI] 40.0-44.9, adult (Z68.41) Primary hypertension Unspecified essential hypertension Bilateral lower extremity edema Edema of right lower extremity- Primary BMI 40.0-44.9, adult ([facility]) Shortness of breath COPD mixed type ([facility]) Primary hypertension Unspecified essential hypertension Bilateral lower extremity edema Bilateral lower extremity edema- Primary Primary hypertension Unspecified essential hypertension COPD mixed type (HCC) Class 3 severe obesity due to excess calories without serious comorbidity with body mass index (BMI) of 40.0 to 44.9 in adult ([facility] Tobacco dependence Tobacco use disorder Bilateral lower extremity edema- Primary Tobacco dependence Tobacco use disorder BMI 40.0-44.9, adult ([facility]) COPD mixed type (HCC) WINSOME (obstructive sleep apnea) Obstructive sleep apnea (adult) (pediatric) Encounter for subsequent annual wellness visit (AWV) in Medicare patient- Primary Edema of right lower extremity Anxiety and depression Tobacco dependence Tobacco use disorder BMI 40.0-44.9, adult ([facility]) Fibromyalgia Unspecified myalgia and myositis Primary hypertension Unspecified essential hypertension COPD mixed type (HCC) WINSOME (obstructive sleep apnea)- Primary Obstructive sleep apnea (adult) (pediatric) COPD mixed type (HCC) Primary hypertension Unspecified essential hypertension Fibromyalgia Unspecified myalgia and myositis BMI 40.0-44.9, adult ([facility] Tobacco dependence Tobacco use disorder Mixed hyperlipidemia Mixed hyperlipidemia Vitamin D deficiency Vitamin B12 deficiency Other B-complex deficiencies COPD with acute exacerbation (HCC) COPD with acute exacerbation (HCC)- Primary Morbid (severe) obesity due to excess calories ([facility]) Body mass index (BMI) 40.0-44.9, adult ([facility]) WINSOME (obstructive sleep apnea) Obstructive sleep apnea (adult) (pediatric) COPD mixed type (HCC) Gastroesophageal reflux disease, unspecified whether esophagitis present Tobacco dependence Tobacco use disorder Gastro-esophageal reflux disease without esophagitis Tremor Abnormal involuntary movements Encounter for subsequent annual wellness visit (AWV) in Medicare patient- Primary Chronic kidney disease, stage 3a ([facility]) WINSOME (obstructive sleep apnea) Obstructive sleep apnea [...] (BMI) of 40.0 to 44.9 in adult ([facility] Tobacco dependence Tobacco use disorder Bilateral lower extremity edema Acute non-recurrent sinusitis of other sinus COPD mixed type (HCC) Open wound of second toe of left foot, initial encounter Open wound of left foot, initial encounter COPD mixed type (HCC)- Primary Tobacco dependence Tobacco use disorder BMI 40.0-44.9, adult ([facility]) Body mass index [BMI] 40.0-44.9, adult (Z68.41) Primary hypertension Unspecified essential hypertension Bilateral lower extremity edema Edema of right lower extremity- Primary BMI 40.0-44.9, adult ([facility]) Shortness of breath COPD mixed type (HCC) Primary hypertension Unspecified essential hypertension Bilateral lower extremity edema Bilateral lower extremity edema- Primary Primary hypertension Unspecified essential hypertension COPD mixed type (HCC) Class 3 severe obesity due to excess calories without serious comorbidity with body mass index (BMI) of 40.0 to 44.9 in adult ([facility] Tobacco dependence Tobacco use disorder Bilateral lower extremity edema- Primary Tobacco dependence Tobacco use disorder BMI 40.0-44.9, adult ([facility]) COPD mixed type ([facility]) WINSOME (obstructive sleep apnea) Obstructive sleep apnea (adult) (pediatric) Encounter for subsequent annual wellness visit (AWV) in Medicare patient- Primary Edema of right lower extremity Anxiety and depression Tobacco dependence Tobacco use disorder BMI 40.0-44.9, adult ([facility]) Fibromyalgia Unspecified myalgia and myositis Primary hypertension Unspecified essential hypertension COPD mixed type (HCC) WINSOME (obstructive sleep apnea)- Primary Obstructive sleep apnea (adult) (pediatric) COPD mixed type (HCC) Primary hypertension Unspecified essential hypertension Fibromyalgia Unspecified myalgia and myositis BMI 40.0-44.9, adult ([facility] Tobacco dependence Tobacco use disorder Mixed hyperlipidemia Mixed hyperlipidemia Vitamin D deficiency Vitamin B12 deficiency Other B-complex deficiencies COPD with acute exacerbation (HCC) COPD with acute exacerbation (HCC)- Primary Morbid (severe) obesity due to excess calories ([facility]) Body mass index (BMI) 40.0-44.9, adult ([facility]) WINSOME (obstructive sleep apnea) Obstructive sleep apnea (adult) (pediatric) COPD mixed type (HCC) Gastroesophageal reflux disease, unspecified whether esophagitis present Tobacco dependence Tobacco use disorder Gastro-esophageal reflux disease without esophagitis Tremor Abnormal involuntary movements Encounter for subsequent annual wellness visit (AWV) in Medicare patient- Primary Chronic kidney disease, stage 3a ([facility]) WINSOME (obstructive sleep apnea) Obstructive sleep apnea [...] unspecified laterality- Primary documented in this encounter [facility]* Diagnosis Primary hypertension- Primary Unspecified essential hypertension Mixed hyperlipidemia Mixed hyperlipidemia Fibromyalgia Unspecified myalgia and myositis Migraine without aura and without status migrainosus, not intractable Class 3 severe obesity due to excess calories without serious comorbidity with body mass index (BMI) of 40.0 to 44.9 in adult ([facility]) Tobacco dependence Tobacco use disorder Bilateral lower extremity edema Acute non-recurrent sinusitis of other sinus COPD mixed type ([facility]) Open wound of second toe of left foot, initial encounter Open wound of left foot, initial encounter COPD mixed type (HCC)- Primary Tobacco dependence Tobacco use disorder BMI 40.0-44.9, adult ([facility]) Body mass index [BMI] 40.0-44.9, adult (Z68.41) Primary hypertension Unspecified essential hypertension Bilateral lower extremity edema Edema of right lower extremity- Primary BMI 40.0-44.9, adult ([facility]) Shortness of breath COPD mixed type ([facility]) Primary hypertension Unspecified essential hypertension Bilateral lower extremity edema Bilateral lower extremity edema- Primary Primary hypertension Unspecified essential hypertension COPD mixed type (HCC) Class 3 severe obesity due to excess calories without serious comorbidity with body mass index (BMI) of 40.0 to 44.9 in adult ([facility]) Tobacco dependence Tobacco use disorder Bilateral lower extremity edema- Primary Tobacco dependence Tobacco use disorder BMI 40.0-44.9, adult ([facility]) COPD mixed type (HCC) WINSOME (obstructive sleep apnea) Obstructive sleep apnea (adult) (pediatric) Encounter for subsequent annual wellness visit (AWV) in Medicare patient- Primary Edema of right lower extremity Anxiety and depression Tobacco dependence Tobacco use disorder BMI 40.0-44.9, adult ([facility]) Fibromyalgia Unspecified myalgia and myositis Primary hypertension Unspecified essential hypertension COPD mixed type ([facility]) WINSOME (obstructive sleep apnea)- Primary Obstructive sleep apnea (adult) (pediatric) COPD mixed type (HCC) Primary hypertension Unspecified essential hypertension Fibromyalgia Unspecified myalgia and myositis BMI 40.0-44.9, adult ([facility]) Tobacco dependence Tobacco use disorder Mixed hyperlipidemia Mixed hyperlipidemia Vitamin D deficiency Vitamin B12 deficiency Other B-complex deficiencies COPD with acute exacerbation (HCC) COPD with acute exacerbation (HCC)- Primary Morbid (severe) obesity due to excess calories ([facility]) Body mass index (BMI) 40.0-44.9, adult ([facility]) WINSOME (obstructive sleep apnea) Obstructive sleep apnea (adult) (pediatric) COPD mixed type (HCC) Gastroesophageal reflux disease, unspecified whether esophagitis present Tobacco dependence Tobacco use disorder Gastro-esophageal reflux disease without esophagitis Tremor Abnormal involuntary movements Encounter for subsequent annual wellness visit (AWV) in Medicare patient- Primary Chronic kidney disease, stage 3a ([facility]) WINSOME (obstructive sleep apnea) Obstructive sleep apnea (adult) (pediatric) COPD mixed type ([facility]) Gastroesophageal reflux disease, unspecified whether esophagitis present [...] Tobacco use disorder documented in this encounter [facility]* Diagnosis Primary hypertension- Primary Unspecified essential hypertension Mixed hyperlipidemia Mixed hyperlipidemia Fibromyalgia Unspecified myalgia and myositis Migraine without aura and without status migrainosus, not intractable Class 3 severe obesity due to excess calories without serious comorbidity with body mass index (BMI) of 40.0 to 44.9 in adult ([facility]) Tobacco dependence Tobacco use disorder Bilateral lower extremity edema Acute non-recurrent sinusitis of other sinus COPD mixed type ([facility]) Open wound of second toe of left foot, initial encounter Open wound of left foot, initial encounter COPD mixed type (HCC)- Primary Tobacco dependence Tobacco use disorder BMI 40.0-44.9, adult ([facility]) Body mass index [BMI] 40.0-44.9, adult (Z68.41) Primary hypertension Unspecified essential hypertension Bilateral lower extremity edema Edema of right lower extremity- Primary BMI 40.0-44.9, adult ([facility]) Shortness of breath COPD mixed type ([facility]) Primary hypertension Unspecified essential hypertension Bilateral lower extremity edema Bilateral lower extremity edema- Primary Primary hypertension Unspecified essential hypertension COPD mixed type (HCC) Class 3 severe obesity due to excess calories without serious comorbidity with body mass index (BMI) of 40.0 to 44.9 in adult ([facility] Tobacco dependence Tobacco use disorder Bilateral lower extremity edema- Primary Tobacco dependence Tobacco use disorder BMI 40.0-44.9, adult ([facility]) COPD mixed type ([facility]) WINSOME (obstructive sleep apnea) Obstructive sleep apnea (adult) (pediatric) Encounter for subsequent annual wellness visit (AWV) in Medicare patient- Primary Edema of right lower extremity Anxiety and depression Tobacco dependence Tobacco use disorder BMI 40.0-44.9, adult ([facility]) Fibromyalgia Unspecified myalgia and myositis Primary hypertension Unspecified essential hypertension COPD mixed type ([facility]) WINSOME (obstructive sleep apnea)- Primary Obstructive sleep apnea (adult) (pediatric) COPD mixed type ([facility]) Primary hypertension Unspecified essential hypertension Fibromyalgia Unspecified myalgia and myositis BMI 40.0-44.9, adult ([facility]) Tobacco dependence Tobacco use disorder Mixed hyperlipidemia Mixed hyperlipidemia Vitamin D deficiency Vitamin B12 deficiency Other B-complex deficiencies COPD with acute exacerbation (HCC) COPD with acute exacerbation (HCC)- Primary Morbid (severe) obesity due to excess calories ([facility]) Body mass index (BMI) 40.0-44.9, adult ([facility]) WINSOME (obstructive sleep apnea) Obstructive sleep apnea (adult) (pediatric) COPD mixed type (HCC) Gastroesophageal reflux disease, unspecified whether esophagitis present Tobacco dependence Tobacco use disorder Gastro-esophageal reflux disease without esophagitis Tremor Abnormal involuntary movements Encounter for subsequent annual wellness visit (AWV) in Medicare patient- Primary Chronic kidney disease, stage 3a ([facility]) WINSOME (obstructive sleep apnea) Obstructive sleep apnea [...] unspecified laterality- Primary documented in this encounter [facility] HealthcareEvaluation note* Diagnosis Primary hypertension- Primary Unspecified essential hypertension Mixed hyperlipidemia Mixed hyperlipidemia Fibromyalgia Unspecified myalgia and myositis Migraine without aura and without status migrainosus, not intractable Class 3 severe obesity due to excess calories without serious comorbidity with body mass index (BMI) of 40.0 to 44.9 in adult ([facility]) Tobacco dependence Tobacco use disorder Bilateral lower extremity edema Acute non-recurrent sinusitis of other sinus COPD mixed type (HCC) Open wound of second toe of left foot, initial encounter Open wound of left foot, initial encounter COPD mixed type (HCC)- Primary Tobacco dependence Tobacco use disorder BMI 40.0-44.9, adult ([facility]) Body mass index [BMI] 40.0-44.9, adult (Z68.41) Primary hypertension Unspecified essential hypertension Bilateral lower extremity edema Edema of right lower extremity- Primary BMI 40.0-44.9, adult ([facility]) Shortness of breath COPD mixed type (HCC) Primary hypertension Unspecified essential hypertension Bilateral lower extremity edema Bilateral lower extremity edema- Primary Primary hypertension Unspecified essential hypertension COPD mixed type (HCC) Class 3 severe obesity due to excess calories without serious comorbidity with body mass index (BMI) of 40.0 to 44.9 in adult ([facility]) Tobacco dependence Tobacco use disorder Bilateral lower extremity edema- Primary Tobacco dependence Tobacco use disorder BMI 40.0-44.9, adult ([facility]) COPD mixed type (HCC) WINSOME (obstructive sleep apnea) Obstructive sleep apnea (adult) (pediatric) Encounter for subsequent annual wellness visit (AWV) in Medicare patient- Primary Edema of right lower extremity Anxiety and depression Tobacco dependence Tobacco use disorder BMI 40.0-44.9, adult ([facility]) Fibromyalgia Unspecified myalgia and myositis Primary hypertension Unspecified essential hypertension COPD mixed type (HCC) WINSOME (obstructive sleep apnea)- Primary Obstructive sleep apnea (adult) (pediatric) COPD mixed type (HCC) Primary hypertension Unspecified essential hypertension Fibromyalgia Unspecified myalgia and myositis BMI 40.0-44.9, adult ([facility]) Tobacco dependence Tobacco use disorder Mixed hyperlipidemia Mixed hyperlipidemia Vitamin D deficiency Vitamin B12 deficiency Other B-complex deficiencies COPD with acute exacerbation (HCC) COPD with acute exacerbation (HCC)- Primary Morbid (severe) obesity due to excess calories ([facility]) Body mass index (BMI) 40.0-44.9, adult ([facility]) WINSOME (obstructive sleep apnea) Obstructive sleep apnea (adult) (pediatric) COPD mixed type (HCC) Gastroesophageal reflux disease, unspecified whether esophagitis present Tobacco dependence Tobacco use disorder Gastro-esophageal reflux disease without esophagitis Tremor Abnormal involuntary movements Encounter for subsequent annual wellness visit (AWV) in Medicare patient- Primary Chronic kidney disease, stage 3a ([facility] WINSOME (obstructive sleep apnea) Obstructive sleep apnea [...] and sense organs Screening for lung cancer Gastro-esophageal reflux disease without esophagitis Mixed hyperlipidemia Mixed hyperlipidemia Fibromyalgia Unspecified myalgia and myositis Localized edema Edema [facility] this encounter [facility] No data available for this section General Surgery [place] Progress note No data available for this section General Surgery [place] Reason for visit Narrative* Consultation (Routine) - Closed Specialty Diagnoses / Procedures Referred By Jose williamson Referred To Contact Neurology Diagnoses Tremor Procedures VA OFFICE/OUTPATIENT NEW HIGH MDM 60 MINUTES Jaymie Phoenix NP [address] [place] [address] Phone: tel: fax: Saumya Back DO [address] [place] [id number] Phone: tel: fax: Referral ID Status Reason Start Date Expiration Date V isits Requested Visits Authorized [id number] Closed Specialty Services Required 02/10/2024 08/08/2024 1 [...] duplex right Jaymie Phoenix NP [address] [place] [address] Referral ID Status Reason Start Date Expiration Date V isits Requested Visits Authorized [id number] Authorized 03/25/2023 09/21/2023 1 1 Additional Source Comments INFORMATION SOURCE (unrecogn ized section and content) DATE CREATED AUTHOR 12/26/2021 [facility] dical Specialist DATE CREATED AUTHOR AUTHOR'S ORGANIZ ATION 03/25/2022 [facility] DATE CREATED AUTHOR AUTHOR'S ORGANIZ ATION 07/17/2022 [facility] DATE CREATED AUTHOR AUTHOR'S ORGANIZ ATION 08/31/2024 [facility] DATE CREATED AUTHOR AUTHOR'S ORGANIZ ATION 09/02/2024 [facility] dical Specialists EPIC Patient Care team informatio n (unrecognized section and content) [employer] Supervisor Relationship Specialty Start Date End Date Jaymie Phoenix NP [address] [place] [phone] Nurse Practitioner Family Medicine 01/26/23 [employer] Supervisor Relationship Specialty Start Date End Date Shaikh Marquez MD [address] [place] [address] PCP - General Internal Medicine 03/25/23 Jaymie Phoenix NP [address] [place] [phone] Nurse Practitioner Family Medicine 01/26/23 [employer] Supervisor Relationship Specialty Start Date End Date Shaikh Marquez MD [address] [place] [address] PCP - General Internal Medicine 03/25/23 Jaymie Phoenix NP [address] [place] [address] Nurse Practitioner Family Medicine 01/26/23 [employer] Supervisor Relationship Specialty Start Date End Date Rohan Rodríguez MD [address] [place] [address] PCP - General Family Medicine 05/13/23 Jaymie Phoenix NP [address] [place] [address] Nurse Practitioner Family Medicine 01/26/23 Jaymie Phoenix NP [address] [place] [address] Nurse Practitioner Family Medicine 05/13/23 [employer] Supervisor Relationship Specialty Start Date End Date Rohan Rodríguez MD [address] [place] [address] PCP - General Family Medicine 05/13/23 Jaymie Phoenix NP [address] [place] [address] Nurse Practitioner Family Medicine 01/26/23 Jaymie Phoenix NP [address] [place] [address] Nurse Practitioner Family Medicine 05/13/23 [employer] Supervisor Relationship Specialty Start Date End Date Rohan Rodríguez MD [address] [place] [phone] PCP - General Family Medicine 05/13/23 Jaymie Phoenix NP [address] [place] [address] Nurse Practitioner Family Medicine 01/26/23 Jaymie Phoenix NP [address] [place] [phone] Nurse Practitioner Family Medicine 05/13/23 [employer] Supervisor Relationship Specialty Start Date End Date Rohan Rodríguez MD [address] [place] [phone] PCP - General Family Medicine 05/13/23 Jaymie Phoenix NP [address] [place] [address] Nurse Practitioner Family Medicine 01/26/23 Jaymie Phoenix NP [address] [place] [address] Nurse Practitioner Family Medicine 05/13/23 [employer] Supervisor Relationship Specialty Start Date End Date Rohan Rodríguez MD [address] [place] [phone] PCP - General Family Medicine 05/13/23 Jaymie Phoenix NP [address] [place] [address] Nurse Practitioner Family Medicine 01/26/23 Jaymie Phoenix NP [address] [place] [phone] Nurse Practitioner Family Medicine 05/13/23 [employer] Supervisor Relationship Specialty Start Date End Date Rohan Rodríguez MD [address] [place] [address] PCP - General Family Medicine 05/13/23 Jaymie Phoenix NP [address] [place] [phone] Nurse Practitioner Family Medicine 01/26/23 Jaymie Phoenix NP [address] [place] [phone] Nurse Practitioner Family Medicine 05/13/23 [employer] Supervisor Relationship Specialty Start Date End Date Rohan Rodríguez MD [address] [place] [phone] PCP - General Family Medicine 05/13/23 Jaymie Phoenix NP [address] [place] [phone] Nurse Practitioner Family Medicine 01/26/23 Jaymie Phoenix NP [address] [place] [phone] Nurse Practitioner Family Medicine 05/13/23 [employer] Supervisor Relationship Specialty Start Date End Date Rohan Rodríguez MD [address] [place] [phone] PCP - General Family Medicine 05/13/23 Jaymie Phoenix NP [address] [place] [phone] Nurse Practitioner Family Medicine 01/26/23 Jaymie Phoenix NP [address] [place] [address] Nurse Practitioner Family Medicine 05/13/23 [employer] Supervisor Relationship Specialty Start Date End Date Rohan Rodríguez MD [address] [place] [phone] PCP - General Family Medicine 05/13/23 Jaymie Phoenix NP [address] [place] [phone] Nurse Practitioner Family Medicine 01/26/23 Jaymie Phoenix NP [address] [place] [phone] Nurse Practitioner Family Medicine 05/13/23 [employer] Supervisor Relationship Specialty Start Date End Date Rohan Rodríguez MD [address] [place] [phone] PCP - General Family Medicine 05/13/23 Jaymie Phoenix NP [address] [place] [phone] Nurse Practitioner Family Medicine 01/26/23 Jaymie Phoenix NP [address] [place] [address] Nurse Practitioner Family Medicine 05/13/23 [employer] Supervisor Relationship Specialty Start Date End Date Rohan Rodríguez MD [address] [place] [phone] PCP - General Family Medicine 05/13/23 Jaymie Phoenix NP [address] [place] [phone] Nurse Practitioner Family Medicine 01/26/23 Jaymie Phoenix NP [address] [place] [phone] Nurse Practitioner Family Medicine 05/13/23 [employer] Supervisor Relationship Specialty Start Date End Date Rohan Rodríguez MD [address] [place] [phone] PCP - General Family Medicine 05/13/23 Jaymie Phoenix NP [address] [place] [phone] Nurse Practitioner Family Medicine 01/26/23 Jaymie Phoenix NP [address] [place] [phone] Nurse Practitioner Family Medicine 05/13/23 [employer] Supervisor Relationship Specialty Start Date End Date Rohan Rodríguez MD [address] [place] [address] PCP - General Family Medicine 05/13/23 Jaymie Phoenix NP [address] [place] [address] Nurse Practitioner Family Medicine 01/26/23 Jaymie Phoenix NP [address] [place] [address] Nurse Practitioner Family Medicine 05/13/23 Floating Labor Gang Supervisor Relationship Specialty Start Date End Date Rohan Rodríguez MD [address] [place] [address] PCP - General Family Medicine 05/13/23 Jaymie Phoenix NP [address] [place] [address] Nurse Practitioner Family Medicine 01/26/23 Jaymie Phoenix NP [address] [place] [address] Nurse Practitioner Family Medicine 05/13/23 Floating Labor Gang Supervisor Relationship Specialty Start Date End Date Rohan Rodríguez MD [address] [place] [address] PCP - General Family Medicine 05/13/23 Jaymie Phoenix NP [address] [place] [address] Nurse Practitioner Family Medicine 01/26/23 Jaymie Phoenix NP [address] [place] [address] Nurse Practitioner Family Medicine 05/13/23 Floating Labor Gang Supervisor Relationship Specialty Start Date End Date Rohan Rodríguez MD [address] [place] [address] PCP - General Family Medicine 05/13/23 Jaymie Phoenix NP [address] [place] [address] Nurse Practitioner Family Medicine 01/26/23 Jaymie Phoenix NP [address] [place] [address] Nurse Practitioner Family Medicine 05/13/23 Floating Labor Gang Supervisor Relationship Specialty Start Date End Date Rohan Rodríguez MD [address] [place] [address] PCP - General Family Medicine 05/13/23 Jaymie Phoenix NP [address] [place] [address] Nurse Practitioner Family Medicine 01/26/23 Jaymie Phoenix NP [address] [place] [address] Nurse Practitioner Family Medicine 05/13/23 Floating [employer] Gang Supervisor Relationship Specialty Start Date End Date Rohan Rodríguez MD [address] [place] [address] PCP - General Family Medicine 05/13/23 Jaymie Phoenix NP [address] [place] [address] Nurse Practitioner Family Medicine 01/26/23 Jaymie Phoenix NP [address] [place] [address] Nurse Practitioner Family Medicine 05/13/23 Floating Labor Gang Supervisor Relationship Specialty Start Date End Date Rohan Rodríguez MD [address] [place] [address] PCP - General Family Medicine 05/13/23 Jaymie Phoenix NP [address] [place] [address] Nurse Practitioner Family Medicine 01/26/23 Jaymie Phoenix NP [address] [place] [address] Nurse Practitioner Family Medicine 05/13/23 Floating Labor Gang Supervisor Relationship Specialty Start Date End Date Rohan Rodríguez MD [address] [place] [address] PCP - General Family Medicine 05/13/23 Jaymie Phoenix NP [address] [place] [address] Nurse Practitioner Family Medicine 01/26/23 Jaymie Phoenix NP [address] [place] [address] Nurse Practitioner Family Medicine 05/13/23 Floating Labor Gang Supervisor Relationship Specialty Start Date End Date Rohan Rodríguez MD [address] [place] [address] PCP - General Family Medicine 05/13/23 Jaymie Phoenix NP [address] [place] [address] Nurse Practitioner Family Medicine 01/26/23 Jaymie Phoenix NP [address] [place] [address] Nurse Practitioner Family Medicine 05/13/23 Floating Labor Gang Supervisor Relationship Specialty Start Date End Date Rohan Rodríguez MD [address] [place] [address] PCP - General Family Medicine 05/13/23 Jaymie Phoenix NP [address] [place] [address] Nurse Practitioner Family Medicine 01/26/23 Jaymie Phoenix NP [address] [place] [address] Nurse Practitioner Family Medicine 05/13/23 Floating Labor Gang Supervisor Relationship Specialty Start Date End Date Rohan Rodríguez MD [address] [place] [address] PCP - General Family Medicine 05/13/23 Jaymie Phoenix NP [address] [place] [address] Nurse Practitioner Family Medicine 01/26/23 Jaymie Phoenix NP [address] [place] [address] Nurse Practitioner Family Medicine 05/13/23 Floating Labor Gang Supervisor Relationship Specialty Start Date End Date Rohan Rodríguez MD [address] [place] [address] PCP - General Family Medicine 05/13/23 Jaymie Phoenix NP [address] [place] [address] Nurse Practitioner Family Medicine 01/26/23 Jaymie Phoenix NP [address] [place] [address] Nurse Practitioner Family Medicine 05/13/23 Floating [employer] Gang Supervisor Relationship Specialty Start Date End Date Rohan Rodríguez MD [address] [place] [address] PCP - General Family Medicine 05/13/23 Jaymie Phoenix NP [address] [place] [address] Nurse Practitioner Family Medicine 01/26/23 Jaymie Phoenix NP [address] [place] [address] Nurse Practitioner Family Medicine 05/13/23 Reason for [...] BE BASED ON THE PRIMARY CLINICAL RECORDS. [employer] [facility]. provides no warranty or guarantee of the accuracy or completeness of information in this document.
== END 2024-10-04 10:49 | disposition home or self-care (01) ==
LOC: PM 10:48
PROVIDERS: PCP Nurse Practitioner; Visit Provider Nurse Practitioner
DX: M48.062 Spinal stenosis, lumbar region with neurogenic claudication (principal); M46.1 Sacroiliitis, not elsewhere classified; M79.18 Myalgia, other site; M51.369 Other intervertebral disc degeneration, lumbar region without mention of lumbar back pain or lower extremity pain
CPT/HCPCS: G0463

== ENCOUNTER 2024-10-10 09:59 | Outpatient (OUT) | payer MEDICARE, SELFPAY ==
--- OUTSIDE RECORDS SUMMARY | 2024-10-10 10:03 | XMS_ITS | Encounter Summary ---
Author Organization [facility] Address [address] [place] [address] Care Team Providers Care Motor Vehicles Inspector Name Role Phone Jaymie Phoenix PRIMER INSPECTOR Unavailable [phone] Shaikh PERRY Marquez Primary Care Provider [phone] Rohan Rodríguez MD Primary Care Provider [phone] Rohan Rodríguez MD Primary Care Provider [phone] Jaymie Phoenix PRIMER INSPECTOR Unavailable [phone] Encounter Details Date Type Department Care Team (Late st Contact Info) Description 04/05/2023 Orders Only [facility] [address] [place] [address] Jaymie Phoenix, PRIMER INSPECTOR [address] [place] [address] Social History Tobacco Use Types Packs/Day Years Used Date Smoking Tobacco: Every Day Cigarettes 1 42 Smokeless Tobacco: Never Comments:11-20 cigarettes/da y Alcohol Use Standard Drinks/Week Comments Not Currently 0 (1 standard drink = 0.6 oz pur e alcohol) socially PHQ-2 Answer Date Recorded Patient Health Questionnaire-2 Score 2 03/16/2023 Comments Unknown Sex and Gender Information Value Date Recorded Sex Assigned at Not on file Legal Sex Female 7:27 PM EDT Gender Identity Not on file Sexual Orientation Not on file documented as of this encounter Plan of Treatment Upcoming Encounters Date Type Department Care Team (Late st Contact Info) Description 10/31/2024 11:00 AM EDT Office Visit [facility] [address] [place] [address] Jaymie Phoenix, NILE [address] [place] [address] 12/07/2024 1:45 PM EDT Office Visit [facility] [address] [place] [address] Nat Henderson, DO [address] [place] [address] 08/02/2025 10:30 AM EDT Office Visit [facility] [address] [place] [address] Jaymie Phoenix NP [address] [place] [address] documented as of this encounter Procedures Procedure Name Priority Date/Time Associated Diagnosis Comments ECHO TRANSTHORACIC W/ DOPPLER Routine 03/24/2023 1:12 PM EST documented in this encounter Results * ECHO TRANSTHORACIC W/ DOPPLER (03/24/2023 1:12 PM EST) Anatomical Region Laterality Modality Radiographic Latosha ging us Jaymie Phoenix PRIMER INSPECTOR IMG XR PROCEDURES Final Result documented in this encounter Visit Diagnoses Not on filedocumented in this encounter Care Teams Motor Vehicles Inspector Relationship Specialty Start Date End Date Shaikh Marquez MD [address] [place] [address] PCP - General Internal Medicine 03/25/23 05/02/23 Rohan Rodríguez MD [address] [place] [address] PCP - General Family Medicine 05/03/23 05/03/23 Rohan Rodríguez MD [address] [place] [address] PCP - General Family Medicine 05/13/23 Jaymie Phoenix NP Nurse Practitioner Family Medicine 01/26/23 Jaymie Phoenix NP Nurse Practitioner Family Medicine 05/13/23 documented as of this encounter
--- OUTSIDE RECORDS SUMMARY | 2024-10-10 10:03 | XMS_ITS | Encounter Summary ---
Author Organization [facility] Address [address] [place] [address] Care Team Providers Care Licensing Registration Examiner Name Role Phone Jaymie Phoenix EHS TEACHER Unavailable [phone] Shaikh PERRY Marquez Primary Care Provider [phone] Rohan Rodríguez MD Primary Care Provider [phone] Rohan Rodríguez MD Primary Care Provider [phone] Jaymie Phoenix EHS TEACHER Unavailable [phone] Encounter Details Date Type Department Care Team (Late st Contact Info) Description 03/24/2023 Clinisync Result Encounter [facility] External Department Unsolicited Provider, Generic External Data Social History Tobacco Use Types Packs/Day Years [...] 10/31/2024 11:00 AM EDT Office Visit [facility] [address] [place] [address] Jaymie Phoenix, EHS TEACHER [address] [place] [address] 12/07/2024 1:45 PM EDT Office Visit [facility] [address] [place] [address] Nat Henderson DO [address] [place] [address] 08/02/2025 10:30 AM EDT Office Visit [facility] [address] [place] [address] Jaymie Phoenix NP [address] [place] [address] documented as of this encounter Procedures Procedure Name Priority Date/Time Associated Diagnosis Comments SEGMENTAL BLOOD PRESSURE 03/24/2023 1:06 PM EST documented in this encounter Results * SEGMENTAL BLOOD PRESSURE (03/24/2023 1:06 PM EST) Anatomical Region Laterality Modality Radiographic Latosha ging 03/24/2023 1:06 PM EST Narrative 03/24/2023 10:33 PM EST The [address] [address] Cardiology Report Signed Patient: FRANKY SRINIVASAN I MR#: [id number] : 1965 Acct:[id number] Age/Sex: 57 / F ADM Date: 03/24/23 Loc: CARD Attending Dr: Nilam Busby Ordering Physician: Nilam Busby Date of Service: 03/24/23 Procedure(s): CA segmental UE or LE SABRINA Accession Number(s): [id number] cc: Jaymie Phoenix EHS TEACHER; Nilam Busby [facility] Test Date: 2023-03-24 Pat Name: FRANKY SRINIVASAN Department: Room: - Gender: Female Substance Addiction Coordinator: : 1965 Requested By: Nilam Busby Order Number: [id number] Reading MD: RICH CANNON Interpretive Statements Monophasic doppler waveform of the LLE PVR waveforms with blunted amplitude in the LLE Right: - significant pressure gradient between the thigh and calf cuff - normal LUH Left: - significant pressure gradient between the thigh and calf cuff - normal LUH Impression: - elevated indices (B/L thigh) consistent with calcified, noncompressible arterial benitez, which may underestimate the degree of arterial disease present. - normal arterial evaluation of the lower extremities without hemodynamic impairment of the B/L lower extremities at rest (right LUH 1.11, left LUH 1.12) Electronically Signed On 03-24-2023 22:33:33 EST by RICH CANNON Dictated By: Rich Cannon D.O. Signed By: 03/24/23223203/24/232232 DD/ 130 TD/TT: Wheat Cleaner: Procedure Note Radiology, Radiologist, MD - 03/24/2023 [place] [address] Cardiology Report Signed Patient: FRANKY SRINIVSAAN IMR#: [id number] : 1965Acct:[id number] Age/Sex: 57 / FADM Date: 03/24/23 Loc: CARD Attending Dr: Nilam Busby Ordering Physician: Nilam Busby Date of Service: 03/24/23 Procedure(s): CA segmental UE or LE SABRINA Accession Number(s): [id number] cc: Jaymie Phoenix EHS TEACHER; Nilam Busby [facility] Test Date: 2023-03-24 Pat Name: FRANKY SRINIVASAN Department: Room: - Gender: Female Substance Addiction Coordinator: : 1965 Requested By: Nilam Busby Order Number: [id number] Reading MD: RICH CANNON Interpretive Statements Monophasic doppler waveform of the LLE PVR waveforms with blunted amplitude in the LLE Right: - significant pressure gradient between the thigh and calf cuff - normal LUH Left: - significant pressure gradient between the thigh and calf cuff - normal LUH Impression: - elevated indices (B/L thigh) consistent with calcified, noncompressible arterial benitez, which may underestimate the degree of arterial disease present. - normal arterial evaluation of the lower extremities without hemodynamic impairment of the B/L lower extremities at rest (right LUH 1.11, left LUH 1.12) Electronically Signed On 03-24-2023 22:33:33 EST by RICH CANNON Dictated By: Rich Cannon D.O. Signed By:03/24/23223203/24/232232 DD/ 1306 TD/TT: Wheat Cleaner: us Generic External Data Provider IMG XR PROCEDURES Final Result documented in this encounter Visit Diagnoses Not on filedocumented in this encounter Care Teams Licensing Registration Examiner Relationship Specialty Start Date End Date Shaikh Marquez MD [address] [place] [address] PCP - General Internal Medicine 03/25/23 05/02/23 Rohan Rodríguez MD [address] [place] [address] PCP - General Family Medicine 05/03/23 05/03/23 Rohan Rodríguez MD [address] [place] [address] PCP - General Family Medicine 05/13/23 Jaymie Phoenix NP Nurse Practitioner Family Medicine 01/26/23 Jaymie Phoenix NP Nurse Practitioner Family Medicine 05/13/23 documented as of this encounter
--- OUTSIDE RECORDS SUMMARY | 2024-10-10 10:03 | XMS_ITS | Encounter Summary ---
Author Organization [facility] Address [address] [place] [address] Care Team Providers Care Tax Adjuster Name Role Phone Jaymie Phoenix BODY SHOP FLOORPERSON Unavailable [phone] Shaikh PERRY Marquez Primary Care Provider [phone] Rohan Rodríguez MD Primary Care Provider [phone] Rohan Rodríguez MD Primary Care Provider [phone] Jaymie Phoenix BODY SHOP FLOORPERSON Unavailable [phone] Encounter Details Date Type Department Care Team (Late st Contact Info) Description 04/22/2023 Clinisync Result Encounter [facility] External Department Unsolicited Provider, Generic External Data Social History Tobacco Use Types Packs/Day Years Used Date Smoking Tobacco: Every Day Cigarettes 1 42 Smokeless Tobacco: Never Comments:11-20 cigarettes/da y Alcohol Use Standard Drinks/Week Comments Not Currently 0 (1 standard drink = 0.6 oz pur e alcohol) socially PHQ-2 Answer Date Recorded Patient Health Questionnaire-2 Score 2 04/26/2023 Comments Unknown Sex and Gender Information Value Date Recorded Sex Assigned at Not on file Legal Sex Female 7:27 PM EDT Gender Identity Not on file Sexual Orientation Not on file documented as of this encounter Plan of Treatment Upcoming Encounters Date Type Department Care Team (Late st Contact Info) Description 10/31/2024 11:00 AM EDT Office Visit [facility] [address] [place] [address] Jaymie Phoenix, BODY SHOP FLOORPERSON [address] [place] [address] 12/07/2024 1:45 PM EDT Office Visit [facility] [address] [place] [address] Nat Henderson DO [address] [place] [address] 08/02/2025 10:30 AM EDT Office Visit [facility] [address] [place] [address] Jaymie Phoenix NP [address] [place] [address] documented as of this encounter Procedures Procedure Name Priority Date/Time Associated Diagnosis Comments VC EXT VENOUS REFLUX SABRINA LMTD 04/22/2023 2:40 PM EDT documented in this encounter Results * VC EXT VENOUS REFLUX SABRINA LMTD (04/22/2023 2:40 PM EDT) Anatomical Region Laterality Modality Other 04/22/2023 2:40 PM EDT Narrative 04/22/2023 2:41 PM EDT The [place] [id number] Vein Report Signed Patient: FRANKY SRINIVASAN MR#: [id number] : 1965 Acct:[id number] Age/Sex: 57 / F ADM Date: 04/22/23 Loc: VC Attending Dr: Nadine Grant M.D. Ordering Physician: Nadine Grant M.D. Date of Service: 04/22/23 Procedure(s): VC EXT Venous Reflux SABRINA LMTD Accession Number(s): [id number] cc: Jaymie Phoenix BODY SHOP FLOORPERSON; Nadine Grant M.D. Patient Name: FRANKY SRINIVASAN MR#: [id number] : 1965 Exam Date: 04/22/2023 Ordering Doctor: DR NADINE GRANT M.D. RADIOLOGY REPORT PROCEDURE: VC EXT VENOUS REFLUX SABRINA LMTD COMPARISON: None. INDICATIONS: R60.0 Bilateral Lower Edema TECHNIQUE: Duplex imaging of the lower extremity to assess the deep and superficial venous system for the presence of deep or superficial venous incompetence and to document the location and severity of disease. The study includes evaluation of the great saphenous vein (GSV), anterior accessory saphenous vein (AASV) and small saphenous vein (SSV). Patient scanned in reverse Trendelenburg and standing. FINDINGS: RIGHT LOWER EXTREMITY: Saphenofemoral Junction Reflux: Yes 8.8mm 0.9 sec GSV: Diam (mm) Reflux/ Time (sec) Proximal Thigh 3.3 Yes 0.7 Mid Thigh 3.7 No Distal Thigh 3.7 No Prox Calf 3.2 No Mid Calf 4.0 No Saphenopopliteal Junction Reflux: 3.0mm No SSV: Proximal Calf 2.6 No Mid Calf 1.7 No AASV: Proximal Thigh 6.2 Yes 1.7 Mid Thigh 4.5 Yes 0.8 Distal Thigh Thrombi: No acute or chronic thrombus visualized Compressibility: Normal Flow: Normal Preforator: Dist/med calf 3.1mm with 0s reflux. Tech Note: Incompetent AASV. Patent varicose vein mid/med calf 4.7mm with 0.9s reflux. Patent varicose vein prox/med calf 3.7mm with 0.8s reflux. Patent varicose vein mid/med thigh 5.0mm with 1.5s reflux. LEFT LOWER EXTREMITY: Saphenofemoral Junction Reflux: Yes 7.5 mm 1.2 sec GSV: Diam (mm) Reflux/Time (sec) Proximal Thigh 2.9 Yes 0.5 Mid Thigh 2.6 Yes 0.9 Distal Thigh 4.6 Yes 0.9 Prox Calf 3.2 No Mid Calf 3.5 No Saphenopopliteal Junction Relux: 3.0 mm No SSV: Proximal Calf 2.3 Yes 0.7 Mid Calf 2.8 No AASV: Proximal Thigh 6.0 Yes 1.0 Mid Thigh 5.2 Yes 1.1 Distal Thigh Thrombi: No acute or chronis thrombus visualized Compressibility: Normal Flow: Normal Fraud Prevention Analyst: Dist/med calf 3.9mm with 1.0s reflux. Tech Note: Incompetent AASV. Patent varicose vein mid/med calf 3.6mm with 1.5s reflux. Patent varicose vein dist/med thigh 4.1mm with 0.8s reflux. CONCLUSION: 1. 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 Dictated by: Gurwinder Day M.D. on 04/22/2023 at 14:21 Approved by: Gurwinder Day M.D. on 04/22/2023 at 14:40 Dictated By: Gurwinder Day M.D. Signed By: 04/22/23 1441 DD/ 1440 TD/TT: Internal Audit Consultant: Procedure Note Radiology, Radiologist, MD - 04/22/2023 [place] [address] Vein Report Signed Patient: FRANKY SRINIVASANMR#: [id number] : 1965Acct:[id number] Age/Sex: 57 / FADM Date: 04/22/23 Loc: VC Attending Dr: Nadine Grant M.D. Ordering Physician: Nadine Grant M.D. Date of Service: 04/22/23 Procedure(s): VC EXT Venous Reflux SABRINA LMTD Accession Number(s): [id number] cc: Jaymie Phoenix BODY SHOP FLOORPERSON; Nadine Grant M.D. Patient Name: FRANKY SRINIVASAN MR#: [id number] : 1965 Exam Date: 04/22/2023 Ordering Doctor: DR NADINE GRANT M.D. RADIOLOGY REPORT PROCEDURE: VC EXT VENOUS REFLUX SABRINA LMTD COMPARISON: None. INDICATIONS: R60.0 Bilateral Lower Edema TECHNIQUE: Duplex imaging of the lower extremity to assess the deepand superficial venous system for the presence of deep or superficial venous incompetence and to document the location and severity of disease. Thestudy includes evaluation of the great saphenous vein (GSV), anterior accessory saphenous vein (AASV) and small saphenous vein (SSV). Patient scanned in reverse Trendelenburg and standing. FINDINGS: RIGHT LOWER EXTREMITY: Saphenofemoral Junction Reflux: Yes 8.8mm 0.9 sec GSV: Diam (mm) Reflux/ Time (sec) Proximal Thigh 3.3 Yes 0.7 Mid Thigh 3.7 No Distal Thigh 3.7 No Prox Calf 3.2 No Mid Calf 4.0 No Saphenopopliteal Junction Reflux: 3.0mm No SSV: Proximal Calf 2.6 No Mid Calf 1.7 No AASV: Proximal Thigh 6.2 Yes 1.7 Mid Thigh 4.5 Yes 0.8 Distal Thigh Thrombi: No acute or chronic thrombus visualized Compressibility: Normal Flow: Normal Preforator: Dist/med calf 3.1mm with 0s reflux. Tech Note: Incompetent AASV. Patent varicose vein mid/med calf 4.7mm with0.9s reflux. Patent varicose vein prox/med calf 3.7mm with 0.8s reflux. Patent varicose vein mid/med thigh 5.0mm with 1.5s reflux. LEFT LOWER EXTREMITY: Saphenofemoral Junction Reflux: Yes 7.5 mm 1.2 sec GSV: Diam (mm) Reflux/Time (sec) Proximal Thigh 2.9 Yes 0.5 Mid Thigh 2.6 Yes 0.9 Distal Thigh 4.6 Yes 0.9 Prox Calf 3.2 No Mid Calf 3.5 No Saphenopopliteal Junction Relux: 3.0 mm No SSV: Proximal Calf 2.3 Yes 0.7 Mid Calf 2.8 No AASV: Proximal Thigh 6.0 Yes 1.0 Mid Thigh 5.2 Yes 1.1 Distal Thigh Thrombi: No acute or chronis thrombus visualized Compressibility: Normal Flow: Normal Fraud Prevention Analyst: Dist/med calf 3.9mm with 1.0s reflux. Tech Note: Incompetent AASV. Patent varicose vein mid/med calf 3.6mm with1.5s reflux. Patent varicose vein dist/med thigh 4.1mm with 0.8s reflux. CONCLUSION: 1. 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 Dictated by: Gurwinder Day M.D. on 04/22/2023 at 14:21 Approved by: Gurwinder Day M.D. on 04/22/2023 at 14:40 Dictated By: Gurwinder Day M.D. Signed By:04/22/23 1441 DD/ 1440 TD/TT: Internal Audit Consultant: us Generic External Data Provider [facility] Final Result documented in this encounter Visit Diagnoses Not on filedocumented in this encounter Care Teams Tax Adjuster Relationship Specialty Start Date End Date Shaikh Marquez MD [address] [place] [address] PCP - General Internal Medicine 03/25/23 05/02/23 Rohan Rodríguez MD [address] [place] [address] PCP - General Family Medicine 05/03/23 05/03/23 Rohan Rodríguez MD [address] [place] [address] PCP - General Family Medicine 05/13/23 Jaymie Phoenix NP Nurse Practitioner Family Medicine 01/26/23 Jaymie Phoenix NP Nurse Practitioner Family Medicine 05/13/23 documented as of this encounter
--- OUTSIDE RECORDS SUMMARY | 2024-10-10 10:03 | XMS_ITS | Encounter Summary ---
Author Organization [facility] Address [address] [place] [address] Care Team Providers Care Buckshot Swage Operator Name Role Phone Jaymie Phoenix BILINGUAL SPEECH LANGUAGE PATHOLOGIST Unavailable [phone] Shaikh PERRY Marquez Primary Care Provider [phone] Rohan Rodríguez MD Primary Care Provider [phone] Rohan Rodríguez MD Primary Care Provider [phone] Jaymie Phoenix BILINGUAL SPEECH LANGUAGE PATHOLOGIST Unavailable [phone] Encounter Details Date Type Department Care Team (Late st Contact Info) Description 03/25/2023 Clinisync Result Encounter [facility] External Department Unsolicited Jaymie Phoenix NP [address] [place] [address] Social History Tobacco Use Types Packs/Day Years [...] 10/31/2024 11:00 AM EDT Office Visit [facility] [address] [place] [address] Jaymie Phoenix, BILINGUAL SPEECH LANGUAGE PATHOLOGIST [address] [place] [phone] 12/07/2024 1:45 PM EDT Office Visit [facility] [address] [place] [address] Nat Henderson, DO [address] [place] [address] 08/02/2025 10:30 AM EDT Office Visit [facility] [address] [place] [address] Jaymie Phoenix, BILINGUAL SPEECH LANGUAGE PATHOLOGIST [address] [place] [address] documented as of this encounter Procedures Procedure Name Priority Date/Time Associated Diagnosis Comments VASC US LOWER EXTREMITY VENOUS DUPLEX RIGHT 03/25/2023 3:24 PM EST [facility] D-DIMER Routine 03/25/2023 3:12 PM EST [facility] CMP (CMP) (FOR REMOTE [facility] USE) Routine 03/25/2023 3:12 PM EST documented in this encounter Results * Vascular US lower extremity venous duplex right (03/25/2023 3:24 PM EST) Anatomical Region Laterality Modality Lower Extremities Ultrasound 03/25/2023 3:24 PM EST Narrative 03/25/2023 3:27 PM EST The [address] [address] Ultrasound Report Signed Patient: FRANKY SRINIVASAN I MR#: [id number] : 1965 Acct:[id number] Age/Sex: 57 / F ADM Date: 03/25/23 Loc: LAB Attending Dr: Jaymie Phoenix NP Ordering Physician: Jaymie Phoenix NP Date of Service: 03/25/23 Procedure(s): US venous doppler LE RT Accession Number(s): [id number] cc: Jaymie Phoenix NP [place] [address] Patient Name: FRANKY SRINIVASAN MRN: [facility]:[id number] date: 1965 Sex: F Assigned Patient Location: LAB Current Patient Location: LAB Accession/Order Number: [id number] Exam Date: 03/25/2023 14:30 Report Date: 03/25/2023 15:24 At the request of: JAYMIE PHOENIX Procedure: US venous doppler LE RT EXAMINATION: US venous doppler LE RT HISTORY: Right Lower Extremity Edema R60.0 COMPARISON: No relevant comparison available. FINDINGS: REGION: Right lower extremity THROMBI: None. COMPRESSIBILITY: Normal compressibility. FLOW: Normal waveform and antegrade flow between 5 and 20 cm/s. OTHER: Subcutaneous edema. US/US venous doppler LE RT IMPRESSION: 1. No deep vein thrombus within the right lower extremity. Electronically authenticated by: MELISSA DAY Date: 03/25/2023 15:24 Dictated By: Melissa Day M.D. Signed By: 03/25/23 1527 DD/ 1524 TD/TT: Assistant Financial Accountant: Procedure Note Radiology, Radiologist, MD - 03/25/2023 [place] [address] Ultrasound Report Signed Patient: FRANKY SRINIVASAN IMR#: [id number] : 1965Acct:[id number] Age/Sex: 57 / FADM Date: 03/25/23 Loc: LAB Attending Dr: Jaymie Phoenix NP Ordering Physician: Jaymie Phoenix NP Date of Service: 03/25/23 Procedure(s): US venous doppler LE RT Accession Number(s): [id number] cc: Jaymie Phoenix NP [place] [address] Patient Name: FRANKY SRINIVASAN MRN: [facility]:[id number] date: 1965 Sex: F Assigned Patient Location: LAB Current Patient Location: LAB Accession/Order Number: [id number] Exam Date: 03/25/2023 14:30 Report Date: 03/25/2023 15:24 At the request of: JAYMIE PHOENIX Procedure: US venous doppler LE RT EXAMINATION: US venous doppler LE RT HISTORY: Right Lower Extremity Edema R60.0 COMPARISON: No relevant comparison available. FINDINGS: REGION: Right lower extremity THROMBI: None. COMPRESSIBILITY: Normal compressibility. FLOW: Normal waveform and antegrade flow between 5 and 20 cm/s. OTHER: Subcutaneous edema. US/US venous doppler LE RT IMPRESSION: 1. No deep vein thrombus within the right lower extremity. Electronically authenticated by: MELISSA DAY Date: 03/25/2023 15:24 Dictated By: Melissa Day M.D. Signed By:03/25/23 1527 DD/ 1524 TD/TT: Assistant Financial Accountant: us Jaymie Phoenix BILINGUAL SPEECH LANGUAGE PATHOLOGIST IMG US PROCEDURES Final Result * (ABNORMAL) [facility] D-DIMER (03/25/2023 3:12 PM EST) D DIMER 0.82(HH) <=0.59 mg/L FEU TB Comment: RESULTS CALLED TO JAYMIE PHOENIX CNP Increases in D-Dimer concentration observed with thromboembolic events can be variable due to localization, size, and age of the thrombus. Therefore, a thromboembolic event cannot be diagnosed with certainty on the basis of the reference range. D-Dimers may also be elevated for a variety of disorders including advanced age, , coronary disease, cancer, liver disease, infection, inflammation, hematoma, DIC, trauma, post-surgery, diabetes, thrombolytic or anticoagulant therapy, stress, and generalized hospitalization. 03/25/2023 3:12 PM EST 03/25/2023 3:13 PM EST Narrative [facility] - 03/25/2023 4:41 PM EST us Jaymie Phoenix BILINGUAL SPEECH LANGUAGE PATHOLOGIST [facility] Final Result [facility] * (ABNORMAL) [facility] CMP (CMP) (FOR REMOTE [facility] USE) (03/25/2023 3:12 PM EST) SODIUM 142 136 - 145 mmol/L [facility] POTASSIUM 3.9 3.5 - 5.1 mmol/L [facility] CHLORIDE 103 98 - 107 mmol/L [facility] CARBON DIOXIDE 29.7 21.0 - 32.0 mmol/L [facility] ANION GAP 13.2 [facility] GLUCOSE 77 74 - 106 mg/dL [facility] BLOOD UREA NITROGEN 9.0 7.0 - 18.0 mg/dL [facility] CREATININE 1.37(H) 0.55 - 1.02 mg/dL [facility] EGFR-AF KAZAKH 48(L) >=60 [facility] EGFR-NON AF KAZAKH 39(L) >=60 [facility] BUN CREATININE RATIO 6.6 [facility] CALCIUM 8.5 8.5 - 10.1 mg/dL [facility] BILIRUBIN TOTAL 0.7 0.2 - 1.0 mg/dL [facility] ASPARTATE AMINO TRANSFERASE 23 15 - 37 U/L [facility] ALANINE AMINOTRANSFERASE 36 14 - 59 U/L [facility] ALKALINE PHOSPHATASE 92 46 - 116 U/L [facility] TOTAL PROTEIN 6.4 6.4 - 8.2 g/dL [facility] ALBUMIN LEVEL 3.2(L) 3.4 - 5.0 g/dL [facility] GLOBULIN 3.2 g/dL [facility] ALBUMIN GLOBULIN RATIO 1.0 [facility] 03/25/2023 3:12 PM EST 03/25/2023 3:13 PM EST Narrative [facility] - 03/25/2023 3:45 PM EST us Jaymie Phoenix NP [facility] Final Result [facility] documented in this encounter Visit Diagnoses Not on filedocumented in this encounter Care Teams Buckshot Swage Operator Relationship Specialty Start Date End Date Shaikh Marquez MD [address] [place] [address] PCP - General Internal Medicine 03/25/23 05/02/23 Rohan Rodríguez MD [address] [place] [address] PCP - General Family Medicine 05/03/23 05/03/23 Rohan Rodríguez MD [address] [place] [address] PCP - General Family Medicine 05/13/23 Jaymei Phoenix NP Nurse Practitioner Family Medicine 01/26/23 Jaymie Phoenix NP Nurse Practitioner Family Medicine 05/13/23 documented as of this encounter
--- OUTSIDE RECORDS SUMMARY | 2024-10-10 10:03 | XMS_ITS | Encounter Summary ---
Author Organization [facility] Address [address] [place] [address] Care Team Providers Care Screw Machine Setter Name Role Phone Jaymie Phoenix OVERHEAD CLEANER Unavailable [phone] Shaikh PERRY Marquez Primary Care Provider [phone] Rohan Rodríguez MD Primary Care Provider [phone] Rohan Rodríguez MD Primary Care Provider [phone] Jaymie Phoenix OVERHEAD CLEANER Unavailable [phone] Encounter Details Date Type Department Care [...] Visit [facility] [address] [place] [address] Jaymie Phoenix, OVERHEAD CLEANER [address] [place] [address] 12/07/2024 1:45 PM EDT Office Visit [facility] [address] [place] [address] Nat Henderson DO [address] [place] [address] 08/02/2025 10:30 AM EDT Office Visit [facility] [address] [place] [address] Jaymie Phoenix NP [address] [place] [address] documented as of this encounter Procedures Procedure Name Priority Date/Time Associated Diagnosis Comments FACILITY EST COMPREHENSIVE 04/22/2023 2:48 PM EDT documented in this encounter Results * FACILITY EST COMPREHENSIVE (04/22/2023 2:48 PM EDT) Anatomical Region Laterality Modality Other 04/22/2023 2:48 PM EDT Narrative 04/22/2023 2:49 PM EDT [address] [address] Vein Report Signed Patient: FRANKY SRINIVASAN MR#: [id number] : 1965 Acct:[id number] Age/Sex: 57 / F ADM Date: 04/22/23 Loc: VC Attending Dr: Nadine Grant M.D. Ordering Physician: Nadine Grant M.D. Date of Service: 04/22/23 Procedure(s): Facility EST Comprehensive Accession Number(s): [id number] cc: Jaymie Phoenix OVERHEAD CLEANER; Nadine Grant M.D. Patient Name: FRANKY SRINIVASAN MR#: [id number] : 1965 Exam Date: 04/22/2023 Ordering Doctor: DR NADINE GRANT M.D. RADIOLOGY REPORT PROCEDURE: FACILITY EST COMPREHENSIVE VEIN CENTER - OFFICE VISIT INITIAL COMPARISON: None. PROGRESS NOTES: [age] year old female who presents with a 4 month history of moderate-marked bilateral lower extremity edema, dilated discolored veins, lower extremity pain and throbbing. The patient's leg symptoms are symmetric bilaterally. There has been a progression of symptoms over time. This increases with prolonged leg dependency. The patient describes an improvement with rest, elevation, compression stockings. The patient denies any signs and symptoms to suggest arterial ischemia. The patient describes a family history : Unknown (patient is adopted). The patient has drinking and smoking history of : Occasional alcohol consumption. One pack per day cigarette smoker. Patient has a past medical history significant for multiple various noncontributory findings. The patient denies a history of deep venous thrombus or pulmonary embolus. See separate history and physical for medication list. No prior treatment for varicose or spider veins. Current use of compression stockings. After review of nurse notes, history and physical exam I discussed at length the pathophysiology of venous hypertension and possible treatments, therapies and strategies available. We discussed at length the importance of elevating the lower extremities above the level of the heart, increased physical activity and compression stocking use. Ultrasound venous reflux study performed today was discussed at length with the patient. The report demonstrates abnormally dilated and incompetent anterior accessory saphenous veins bilaterally with associated dilated branch saphenous varicosities. PHYSICAL EXAM: The right leg demonstrates a few varicosities, a few scattered spider veins, no ulceration, moderate-marked edema, mild skin discoloration. The left leg demonstrates a few varicosities, a few scattered spider veins, no ulceration, moderate-marked edema, mild skin discoloration. Both thighs, legs and feet were symmetrically warm to the touch. Good posterior tibial and dorsalis pedis pulses were present bilaterally. VEIN/ Facility EST Comprehensive IMPRESSION: 1. Bilateral lower extremity venous insufficiency 2. Bilateral lower extremity varicose veins 3. Moderate-marked bilateral lower extremity subcutaneous edema 4. No flow significant arterial disease 5. CEAP: C3, AP, , CO PLAN: 1. Continued use of compression stockings 2. Elevated legs and increased physical activity symptomatic relief 3. Endovenous laser ablation of bilateral anterior accessory saphenous veins. 4. Microfoam chemical ablation of incompetent branch saphenous varicosities. 5. Referral to lymphedema clinic for evaluation. Nurse notes, history and physical were reviewed and confirmed, see attached forms. The nurse was present throughout the physical exam and consultation Dictated by: Gurwinder Day M.D. on 04/22/2023 at 14:40 Approved by: Gurwinder Day M.D. on 04/22/2023 at 14:48 Dictated By: Gurwinder Day M.D. Signed By: 04/22/23 1449 DD/ 1448 TD/TT: Senior Electrical Engineer: Procedure Note Radiology, Radiologist, MD - 04/22/2023 [place] [address] Vein Report Signed Patient: FRANKY SRINIVASANMR#: [id number] : 1965Acct:[id number] Age/Sex: 57 / FADM Date: 04/22/23 Loc: Attending Dr: Nadine Grant M.D. Ordering Physician: Nadine Grant M.D. Date of Service: 04/22/23 Procedure(s): [facility] EST Comprehensive Accession Number(s): [id number] cc: Jaymie Phoenix OVERHEAD CLEANER; Nadine Grant M.D. Patient Name: FRANKY SRINIVASAN MR#: [id number] : 1965 Exam Date: 04/22/2023 Ordering Doctor: DR NADINE GRANT M.D. RADIOLOGY REPORT PROCEDURE: [facility] COMPREHENSIVE VEIN CENTER - OFFICE VISIT INITIAL COMPARISON: None. PROGRESS NOTES: [age] year old female who presents with a 4 month history of moderate-marked bilateral lower extremity edema, dilated discolored veins, lower extremity pain and throbbing. The patient's leg symptoms aresymmetric bilaterally. There has been a progression of symptoms over time. This increases with prolonged leg dependency. The patient describes animprovement with rest, elevation, compression stockings. The patient denies any signsand symptoms to suggest arterial ischemia. The patient describes a family history : Unknown (patient is adopted).The patient has drinking and smoking history of : Occasional alcoholconsumption. One pack per day cigarette smoker. Patient has a past medical history significant for multiple various noncontributory findings. The patientdenies a history of deep venous thrombus or pulmonary embolus. See separate history and physical for medication list. No prior treatmentfor varicose or spider veins. Current use of compression stockings. After review of nurse notes, history and physical exam I discussed atlength the pathophysiology of venous hypertension and possible treatments,therapies and strategies available. We discussed at length the importance ofelevating the lower extremities above the level of the heart, increased physical activity and compression stocking use. Ultrasound venous reflux study performed today was discussed at lengthwith the patient. The report demonstrates abnormally dilated and incompetent anterior accessory saphenous veins bilaterally with associated dilatedbranch saphenous varicosities. PHYSICAL EXAM: The right leg demonstrates a few varicosities, a few scattered spiderveins, no ulceration, moderate-marked edema, mild skin discoloration. The left leg demonstrates a few varicosities, a few scattered spiderveins, no ulceration, moderate-marked edema, mild skin discoloration. Both thighs, legs and feet were symmetrically warm to the touch. Good posterior tibial and dorsalis pedis pulses were present bilaterally. VEIN/VC Facility EST Comprehensive IMPRESSION: 1. Bilateral lower extremity venous insufficiency 2. Bilateral lower extremity varicose veins 3. Moderate-marked bilateral lower extremity subcutaneous edema 4. No flow significant arterial disease 5. CEAP: C3, AP, , CO PLAN: 1. Continued use of compression stockings 2. Elevated legs and increased physical activity symptomatic relief 3. Endovenous laser ablation of bilateral anterior accessory saphenousveins. 4. Microfoam chemical ablation of incompetent branch saphenousvaricosities. 5. Referral to lymphedema clinic for evaluation. Nurse notes, history and physical were reviewed and confirmed, seeattached forms. The nurse was present throughout the physical exam and consultation Dictated by: Gurwinder Day M.D. on 04/22/2023 at 14:40 Approved by: Gurwinder Day M.D. on 04/22/2023 at 14:48 Dictated By: Gurwinder Day M.D. Signed By:04/22/23 1449 DD/ 1448 TD/TT: Senior Electrical Engineer: Generic External Data Provider [facility] Final Result documented in this encounter Visit Diagnoses Not on filedocumented in this encounter Care Teams Screw Machine Setter Relationship Specialty Start Date End Date Shaikh Marquez MD [address] [place] [address] PCP - General Internal Medicine 03/25/23 05/02/23 Rohan Rodríguez MD [address] [place] [address] PCP - General Family Medicine 05/03/23 05/03/23 Rohan Rodríguez MD [address] [place] [address] PCP - General Family Medicine 05/13/23 Jaymie Phoenix NP Nurse Practitioner Family Medicine 01/26/23 Jaymie Phoenix NP Nurse Practitioner Family Medicine 05/13/23 documented as of this encounter
--- OUTSIDE RECORDS SUMMARY | 2024-10-10 10:03 | XMS_ITS | Encounter Summary ---
Author Organization [facility] Address [address] [place] [address] Care Team Providers Care Gumming Machine Operator Name Role Phone Jaymie Phoenix LOAD PLANNER Unavailable [phone] Rohan Rodríguez MD Primary Care Provider [phone] Rohan Rodríguez MD Primary Care Provider [phone] Jaymie Phoenix LOAD PLANNER Unavailable [phone] Encounter Details Date Type Department Care Team (Late st Contact Info) Description 05/03/2023 Clinisync Result Encounter [facility] External Department Unsolicited Jaymie Phoenix NP [address] [place] [address] Social History Tobacco Use Types Packs/Day Years [...] 10/31/2024 11:00 AM EDT Office Visit [facility] [address] [place] [address] Jaymie Phoenix NP [address] [place] [address] 12/07/2024 1:45 PM EDT Office Visit [facility] [address] [place] [address] Nat Henderson, DO [address] [place] [address] 08/02/2025 10:30 AM EDT Office Visit [facility] [address] [place] [address] Jaymie Phoenix, NILE [address] [place] [address] documented as of this encounter Procedures Procedure Name Priority Date/Time Associated Diagnosis Comments CT ABDOMEN PELVIS W CON 05/03/2023 8:56 AM EDT documented in this encounter Results * CT ABDOMEN PELVIS W CON (05/03/2023 8:56 AM EDT) Anatomical Region Laterality Modality Other 05/03/2023 8:56 AM EDT Narrative 05/03/2023 8:58 AM EDT The [address] [address] [address] Scan Report Signed Patient: FRANKY SRINIVASAN MR#: [id number] : 1965 Acct:[id number] Age/Sex: 57 / F ADM Date: 04/30/23 Loc: CT Attending Dr: Jaymie Phoenix NP Ordering Physician: Jaymie Phoenix NP Date of Service: 04/30/23 Procedure(s): CT abdomen pelvis w con Accession Number(s): [id number] cc: Jaymie Phoenix NP [address] [address] Patient Name: FRANKY SRINIVASAN MRN: [facility]:[id number] date: 1965 Sex: F Assigned Patient Location: CT Current Patient Location: Accession/Order Number: [id number] Exam Date: 04/30/2023 12:55 Report Date: 05/03/2023 08:56 At the request of: JAYMIE PHOENIX Procedure: CT abdomen pelvis w con EXAMINATION: CT abdomen pelvis w con HISTORY: Bilateral Lower Extremity Edema R60.0 COMPARISON: 03/26/2023 CT chest, 07/25/2019 CT abdomen pelvis TECHNIQUE: CT images were created with IV contrast. Axial, Coronal, and Sagittal images. Dose reduction techniques were achieved by using automated exposure control and/or adjustment of mA and/or kV according to patient size and/or use of iterative reconstruction technique. FINDINGS: LUNG BASES: No visible pulmonary or pleural disease. LIVER: No enlargement, atrophy, abnormal density, or significant focal lesion. BILIARY: No visible dilatation or calcification. PANCREAS: No lesion, fluid collection, ductal dilatation, or atrophy. SPLEEN: No enlargement or focal lesion. ADRENALS: No mass or enlargement. KIDNEYS: No mass, obstruction, or calcification. BOWEL/MESENTERY: No visible mass, obstruction, or bowel wall thickening. AORTA/VASCULAR: No aneurysm or dissection. RETROPERITONEUM: No mass or adenopathy. LYMPH NODES: Increased number of normal-sized lymph nodes URINARY BLADDER: No visible focal wall thickening, lesion, or calculus. PELVIC ORGANS: Hysterectomy ABDOMINAL WALL: No mass or hernia. BONES: No bony lesion or fracture. OTHER: Negative. CT/CT abdomen pelvis w con IMPRESSION: No acute intraperitoneal abnormality No central venous obstruction observed Electronically authenticated by: NADINE GRANT Date: 05/03/2023 08:56 Dictated By: Nadine Grant M.D. Signed By: 05/03/23 0858 DD/ TD/TT: Hand Tool Filer: Procedure Note Radiology, Radiologist, - 05/03/2023 [place] [address] CT Scan Report Signed Patient: FRANKY SRINIVASANMR#: [id number] : 1965Acct:[id number] Age/Sex: 57 / FADM Date: 04/30/23 Loc: CT Attending Dr: Jaymie Phoenix NP Ordering Physician: Jaymie Phoenix NP Date of Service: 04/30/23 Procedure(s): CT abdomen pelvis w con Accession Number(s): [id number] cc: Jaymie Phoenix NP [place] [address] [address] [place] [address] Patient Name: FRANKY SRINIVASAN MRN: [facility]:[id number] date: 1965 Sex: F Assigned Patient Location: CT Current Patient Location: Accession/Order Number: [id number] Exam Date: 04/30/2023 12:55 Report Date: 05/03/2023 08:56 At the request of: JAYMIE PHOENIX Procedure: CT abdomen pelvis w con EXAMINATION: CT abdomen pelvis w con HISTORY: Bilateral Lower Extremity Edema R60.0 COMPARISON: 03/26/2023 CT chest, 07/25/2019 CT abdomen pelvis TECHNIQUE: CT images were created with IV contrast. Axial, Coronal, and Sagittal images. Dose reduction techniques were achieved by usingautomated exposure control and/or adjustment of mA and/or kV according to patientsize and/or use of iterative reconstruction technique. FINDINGS: LUNG BASES: No visible pulmonary or pleural disease. LIVER: No enlargement, atrophy, abnormal density, or significant focallesion. BILIARY: No visible dilatation or calcification. PANCREAS: No lesion, fluid collection, ductal dilatation, or atrophy. SPLEEN: No enlargement or focal lesion. ADRENALS: No mass or enlargement. KIDNEYS: No mass, obstruction, or calcification. BOWEL/MESENTERY: No visible mass, obstruction, or bowel wall thickening. AORTA/VASCULAR: No aneurysm or dissection. RETROPERITONEUM: No mass or adenopathy. LYMPH NODES: Increased number of normal-sized lymph nodes URINARY BLADDER: No visible focal wall thickening, lesion, or calculus. PELVIC ORGANS: Hysterectomy ABDOMINAL WALL: No mass or hernia. BONES: No bony lesion or fracture. OTHER: Negative. CT/CT abdomen pelvis w con IMPRESSION: No acute intraperitoneal abnormality No central venous obstruction observed Electronically authenticated by: NADINE GRANT Date: 05/03/2023 08:56 Dictated By: Nadine Grant M.D. Signed By:05/03/23 0858 DD/ 0856 TD/TT: Hand Tool Filer: Jaymie Phoenix NP [facility] Final Result documented in this encounter Visit Diagnoses Not on filedocumented in this encounter Care Teams Gumming Machine Operator Relationship Specialty Start Date End Date Rohan Rodríguez MD [address] [place] [address] PCP - General Family Medicine 05/03/23 05/03/23 Rohan Rodríguez MD [address] [place] [address] PCP - General Family Medicine 05/13/23 Jaymie Phoenix NP Nurse Practitioner Family Medicine 01/26/23 Jaymie Phoenix NP Nurse Practitioner Family Medicine 05/13/23 documented as of this encounter
--- OUTSIDE RECORDS SUMMARY | 2024-10-10 10:03 | XMS_ITS | Encounter Summary ---
Author Organization [facility] Address [address] [place] [address] Care Team Providers Care Tool Adjuster Name Role Phone Jaymie Phoenix AUDIO ENGINEER Unavailable [phone] Rohan Rodríguez MD Primary Care Provider [phone] Jaymie Phoenix AUDIO ENGINEER Unavailable [phone] Encounter Details Date Type Department Care Team (Late st Contact Info) Description 01/26/2024 Abstract [facility] [address] [place] [address] Nat Henderson DO [address] [place] [address] Social History Tobacco Use Types Packs/Day Years Used Date Smoking Tobacco: Every Day Cigarettes 1 42 Smokeless Tobacco: Never Comments:11-20 cigarettes/da y Alcohol Use Standard Drinks/Week Comments Not Currently 0 (1 standard drink = 0.6 oz pur e alcohol) socially Humiliation, Afraid, Rape, and Kick questionnair e Answer Date Recorded Within the last year, have y ou been afraid of your partner or ex-partner? No 06/03/2023 Within the last year, have y ou been humiliated or emotionally abused in other ways by your partner or ex-partner? No Within the last year, have y ou been kicked, hit, slapped, or otherwise physically hurt by your partner or ex-partner? No 06/03/2023 Within the last year, have y ou been raped or forced to have any kind of sexual activity by your partner or ex-partner? No 06/03/2023 Social Connection and Isolation Panel [NHANES] A nswer Date Recorded In a typical week, how many times do you talk on the phone with family, friends, or neighbors? Twice a week 05/13/2023 How often do you get together with friends or re latives? Twice a week 05/13/2023 How often do you attend oriental orthodox or rastafari serv ices? Never 05/13/2023 Do you belong to any clubs o r organizations such as oriental orthodox groups, unions, fraternal or athletic groups, or school groups? No 05/13/2023 How often do you attend meet ings of the clubs or organizations you belong to? Never 05/13/2023 Are you , , di vorced, , never , or living with a partner? 05/13/2023 AUDIT-C Answer Date Recorded Q1: How often do you have a drink containing alc ohol? Monthly or less 06/03/2023 Q2: How many drinks containi ng alcohol do you have on a typical day when you are drinking? 1 or 2 06/03/2023 Q3: How often do you have si x or more drinks on one occasion? Never 06/03/2023 Overall Financial Resource Strain (CARDIA) Answe r Date Recorded How hard is it for you to pa y for the very basics like food, housing, medical care, and heating? Somewhat hard 05/13/2023 PHQ-2 Answer Date Recorded Patient Health Questionnaire-2 Score 0 06/03/2023 [facility] - Occupational Stress Questionnaire Answer Date Recorded Do you feel stress - tense, restless, nervous, or anxious, or unable to sleep at night because your mind is troubled all the time - these days? Only a little 05/13/2023 Exercise Vital Sign Answer Date Recorde d On average, how many days pe r week do you engage in moderate to strenuous exercise (like a brisk walk)? 0 days 06/03/2023 On average, how many minutes do you engage in exercise at this level? 0 min 06/03/2023 Hunger Vital Sign Answer Date Recorded Within the past 12 months, y ou worried that your food would run out before you got the money to buy more. Sometimes true Within the past 12 months, t he food you bought just didn't last and you didn't have money to get more. Often true 05/2023 PRAPARE - Transportation Answer Date Re corded In the past 12 months, has l ack of transportation kept you from medical appointments or from getting medications? No 05/10 In the past 12 months, has l ack of transportation kept you from meetings, work, or from getting things needed for daily living? No 06/03/2023 Housing Stability Vital Sign Answer Vitaly e Recorded In the last 12 months, was t here a time when you were not able to pay the mortgage or rent on time? Yes 05/13/2023 In the last 12 months, how many places have you lived? 1 05/13/2023 In the last 12 months, was t here a time when you did not have a steady place to sleep or slept in a snf (including now)? No 05/13/2023 Comments Unknown Sex and Gender Information Value Date Recorded Sex Assigned at Not on file Legal Sex Female 7:27 PM EDT Gender Identity Not on file Sexual Orientation Not on file documented as of this encounter Plan of Treatment Upcoming Encounters Date Type Department Care Team (Late st Contact Info) Description 10/31/2024 11:00 AM EDT Office Visit [facility] [address] [place] [address] Jaymie Phoenix NP [address] [place] [address] 12/07/2024 1:45 PM EDT Office Visit [facility] [address] [place] [phone] Nat Henderson, [address] [place] [address] 08/02/2025 10:30 AM EDT Office [facility] [address] [place] [address] Jaymie Phoenix NP [address] [place] [address] documented as of this encounter Visit Diagnoses Not on filedocumented in this encounter Additional Health Concerns Assessment Noted Time PHQ-9 Depression Total Score: 2 06/03/19 24 2:55 PM EDT documented as of this encounter Care Teams Tool Adjuster Relationship Specialty Start Date End Date Rohan Rodríguez MD [address] [place] [address] PCP - General Family Medicine 05/13/23 Jaymie Phoenix NP Nurse Practitioner Family Medicine 01/26/23 Jaymie Phoenix NP Nurse Practitioner Family Medicine 05/13/23 documented as of this encounter
--- OUTSIDE RECORDS SUMMARY | 2024-10-10 10:03 | XMS_ITS | Encounter Summary ---
Author Organization [facility] Address [address] [place] [address] Care Team Providers Care Metallographer Name Role Phone Jaymie Phoenix STAFF ASSISTANT Unavailable [phone] Shaikh PERRY Marquez Primary Care Provider [phone] Rohan Rodríguez MD Primary Care Provider [phone] Rohan Rodríguez MD Primary Care Provider [phone] Jaymie Phoenix STAFF ASSISTANT Unavailable [phone] Encounter Details Date Type Department Care Team (Late st Contact Info) Description 03/25/2023 Clinisync Result Encounter [facility] External Department Unsolicited Jaymie Phoenix NP [address] [place] [address] Social History Tobacco Use Types Packs/Day Years [...] 10/31/2024 11:00 AM EDT Office Visit [facility] [address] [place] [address] Jaymie Phoenix, STAFF ASSISTANT [address] [place] [address] 12/07/2024 1:45 PM EDT Office Visit [facility] [address] [place] [address] Nat Henderson, DO [address] [place] [address] 08/02/2025 10:30 AM EDT Office Visit [facility] [address] [place] [address] Jaymie Phoenix, STAFF ASSISTANT [address] [place] [address] documented as of this encounter Procedures Procedure Name Priority Date/Time Associated Diagnosis Comments ALL CBC WITH AUTO DIFF Routine 03/25/2023 3:12 PM EST XR CHEST 2V 03/25/2023 2:38 PM EST documented in this encounter Results * (ABNORMAL) ALL CBC WITH AUTO DIFF (03/25/2023 3:12 PM EST) [facility] WBC 6.2 4.0 - 11.0 10 3/uL TB[facility] TB[facility] RBC 3.99(L) 4.20 - 5.40 10 6/uL [facility] TB[facility] HGB 13.4 12.0 - 16.0 g/dL TBH TBH HCT 42.3 36.0 - 48.0 % [facility] MCV 106.0(H) 81.0 - 99.0 fL TBH TBH MCH 33.6 26.7 - 34.0 pg TBH TBH MCHC 31.7 29.9 - 35.2 g/dL TBH TBH RDW 14.0 11.0 - 15.0 % TBH TBH PLT 154 150 - 450 10 3/uL TBH TBH MPV 10.7 9.5 - 13.5 fL TBH NEUTROPHILS PERCENT AUTO 58.2 43.0 - 75.0 % TBH LYMPHOCYTES PERCENT AUTO 30.2 20.5 - 60.0 % TBH MONOCYTES PERCENT AUTO 9.3 1.7 - 12.0 % TBH TBH EO % 1.5 0.9 - 7.0 % [facility] BASOPHILS PERCENT AUTO 0.5 0.2 - 2.0 % [facility] IMMATURE GRANULOCYTES PCT AUTO 0.3 0.0 - 0.5 % TB[facility] NEUTROPHILS ABSOLUTE AUTO 3.6 1.4 - 6.5 10 3/uL TBH LYMPHOCYTES ABSOLUTE AUTO 1.9 1.2 - 3.8 10 3/uL TB[facility] MONOCYTES ABSOLUTE AUTO 0.6 0.3 - 0.8 10 3/uL TBH TBH EO # 0.1 0.0 - 0.7 10 3/uL TBH BASOPHILS ABSOLUTE AUTO 0.0 0.0 - 0.1 10 3/uL TB[facility] IMMATURE GRANULOCYTES ABS AUTO 0.02 0.00 - 0.03 10 3/uL TBH 03/25/2023 3:12 PM EST 03/25/2023 3:13 PM EST Narrative [facility] - 03/25/2023 3:18 PM EST us Jaymie Phoenix NP [facility] Final Result [facility] * XR CHEST 2V (03/25/2023 2:38 PM EST) Anatomical Region Laterality Modality Other 03/25/2023 2:38 PM EST Narrative 03/25/2023 2:40 [place] [address] XRay Report Signed Patient: FRANKY SRINIVASAN I MR#: [id number] : 1965 Acct:[id number] Age/Sex: 57 / F ADM Date: 03/25/23 Loc: LAB Attending Dr: Jaymie Phoenix STAFF ASSISTANT Ordering Physician: Jaymie Phoenix NP Date of Service: 03/25/23 Procedure(s): XR chest 2V Accession Number(s): [id number] cc: Jaymie Phoenix NP [facility] [place] [address] Patient Name: FRANKY SRINIVASAN MRN: [id number] date: 1965 Sex: F Assigned Patient Location: LAB Current Patient Location: LAB Accession/Order Number: [id number] Exam Date: 03/25/2023 14:25 Report Date: 03/25/2023 14:38 At the request of: JAYMIE PHOENIX Procedure: XR chest 2V EXAMINATION: XR chest 2V HISTORY: Edema Of Right Lower Extremity R60.0 wheezing, shortness of breath COMPARISON: XR chest 01/08/2023 FINDINGS: LUNGS: Mild haziness within the lung bases partially obscuring the bronchovascular markings. Lungs are well expanded. VASCULATURE: No increased pulmonary vasculature. PLEURA: No pneumothorax, effusion, or pleural thickening. CARDIAC: Stable cardiomegaly. MEDIASTINUM: No visible mass or adenopathy. BONES: No fracture or visible bone lesion. OTHER: Negative. XR/XR chest 2V IMPRESSION: 1. Trace amount of bibasilar atelectasis versus infiltrates; new since prior study. Electronically authenticated by: GURWINDER DAY Date: 03/25/2023 14:38 Dictated By: Gurwinder Day M.D. Signed By: 03/25/23 1440 DD/ 1438 TD/TT: Engineering Agent: Procedure Note Radiology, Radiologist, MD - 03/25/2023 [place] [address] XRay Report Signed Patient: FRANKY SRINIVASAN IMR#: [id number] : 1965Acct:[id number] Age/Sex: 57 / FADM Date: 03/25/23 Loc: LAB Attending Dr: Jaymie Phoenix NP Ordering Physician: Jaymie Phoenix NP Date of Service: 03/25/23 Procedure(s): XR chest 2V Accession Number(s): [id number] cc: Jaymie Phoenix NP [place] [address] Patient Name: FRANKY SRINIVASAN MRN: [id number] date: 1965 Sex: F Assigned Patient Location: LAB Current Patient Location: LAB Accession/Order Number: [id number] Exam Date: 03/25/2023 14:25 Report Date: 03/25/2023 14:38 At the request of: JAYMIE PHOENIX Procedure: XR chest 2V EXAMINATION: XR chest 2V HISTORY: Edema Of Right Lower Extremity R60.0 wheezing, shortness ofbreath COMPARISON: XR chest 01/08/2023 FINDINGS: LUNGS: Mild haziness within the lung bases partially obscuring the bronchovascular markings. Lungs are well expanded. VASCULATURE: No increased pulmonary vasculature. PLEURA: No pneumothorax, effusion, or pleural thickening. CARDIAC: Stable cardiomegaly. MEDIASTINUM: No visible mass or adenopathy. BONES: No fracture or visible bone lesion. OTHER: Negative. XR/XR chest 2V IMPRESSION: 1. Trace amount of bibasilar atelectasis versus infiltrates; new sinceprior study. Electronically authenticated by: GURWINDER DAY Date: 03/25/2023 14:38 Dictated By: Gurwinder Day M.D. Signed By:03/25/23 1440 DD/ 1438 TD/TT: Engineering Agent: Jaymie Phoenix NP [facility] Final Result documented in this encounter Visit Diagnoses Not on filedocumented in this encounter Care Teams Metallographer Relationship Specialty Start Date End Date Shaikh Marquez MD [address] [place] [address] PCP - General Internal Medicine 03/25/23 05/02/23 Rohan Rodríguez MD [address] [place] [address] PCP - General Family Medicine 05/03/23 05/03/23 Rohan Rodríguez MD [address] [place] [address] PCP - General Family Medicine 05/13/23 Jaymie Phoenix NP Nurse Practitioner Family Medicine 01/26/23 Jaymie Phoenix NP Nurse Practitioner Family Medicine 05/13/23 documented as of this encounter
--- OUTSIDE RECORDS SUMMARY | 2024-10-10 10:04 | XMS_ITS | Encounter Summary ---
Author Organization [facility] Address [address] [place] [address] Care Team Providers Care Radiology Director Name Role Phone Jaymie Phoenix HEALTH ADMINISTRATION TEACHER Unavailable [phone] Rohan Rodríguez MD Primary Care Provider [phone] Jaymie Phoenix HEALTH ADMINISTRATION TEACHER Unavailable [phone] Encounter Details Date Type Department Care Team (Late st Contact Info) Description 05/05/2023 Clinisync Result Encounter [facility] External Department Unsolicited Jaymie Phoenix NP [address] [place] [address] Social History Tobacco Use Types Packs/Day Years [...] Visit [facility] [address] [place] [address] Jaymie Phoenix NP [address] [place] [address] 12/07/2024 1:45 PM EDT Office Visit [facility] [address] [place] [address] Nat Henderson DO [address] [place] [address] 08/02/2025 10:30 AM EDT Office Visit [facility] [address] [place] [address] Jaymie Phoenix NP [address] [place] [address] documented as of this encounter Procedures Procedure Name Priority Date/Time Associated Diagnosis Comments CA ECHO DOPPLER COMPLETE 05/05/2023 4:42 PM EDT documented in this encounter Results * CA ECHO DOPPLER COMPLETE (05/05/2023 4:42 PM EDT) Anatomical Region Laterality Modality Other 05/05/2023 4:42 PM EDT Narrative 05/05/2023 4:43 PM EDT [address] [address] Cardiology Report Signed Patient: FRANKY SRINIVASAN MR#: [id number] : 1965 Acct:[id number] Age/Sex: 57 / F ADM Date: 05/05/23 Loc: CARD Attending Dr: Jaymie Phoenix NP Ordering Physician: Jaymie Phoenix NP Date of Service: 05/05/23 Procedure(s): CA echo doppler complete Accession Number(s): [id number] cc: Jaymie Phoenix NP Patient Name: FRANKY SRINIVASAN MR#: [id number] : 1965 Exam Date: 05/05/2023 Ordering Doctor: FARMWORK[employer]LTRY Jaymie J. Aichholz FARMWORKER POULTRY ECHOCARDIOGRAM REPORT PROCEDURE: CA ECHO DOPPLER COMPLETE INDICATIONS: Bilateral lower extremity edema, COPD, primary hypertension COMPARISON: None. DESCRIPTION: COMPLETE ECHOCARDIOGRAM Real-time transthoracic echocardiography with 2D, M-mode, spectral and color flow Doppler performed. QUALITY: Technical quality was adequate. LEFT VENTRICLE: Normal chamber size. Mild concentric left ventricular hypertrophy. Global left ventricular systolic function is normal. LV EF: Estimated left ventricular ejection fraction is 65%. DIASTOLIC: Diastolic function is indeterminate. ATRIAL SEPTUM: LEFT ATRIUM: Normal chamber size. RIGHT ATRIUM: Mild dilatation. RIGHT VENTRICLE: Normal chamber size. Normal right ventricular systolic function. TRICUSPID VALVE: Normal mobility and thickness. No stenosis with trivial regurgitation. Mild pulmonary hypertension. RVSP 36 mmHg. MITRAL VALVE: Normal mobility and thickness. No evidence of mitral valve stenosis. There is no mitral annular calcification. Trivial mitral regurgitation. AORTIC VALVE: Normal trileaflet appearance. No visible sclerosis. Normal leaflet mobility. No evidence of aortic valve stenosis. No aortic regurgitation. AORTIC ROOT: Normal diameter and appearance. PULMONIC VALVE: Normal thickness and mobility. No stenosis. Trivial regurgitation. PERICARDIUM: Trivial pericardial effusion. IVC: Collapses with inspirations. Normal size. PLEURA: CONCLUSION: 1. Mild concentric left ventricular hypertrophy with normal systolic function. Estimated LVEF is 65%. 2. Normal right ventricular size and systolic function. 3. No significant valvular dysfunction. 4. Mildly elevated right-sided pressures. Adult Echocardiography Procedure Report Left Ventricle LVEDD (3.7 - 5.6 cm): 4.62 cm LVESD (2.2 - 4.0 cm): 3.22 cm LVIVS thickness (0.6 - 1.2 cm): 1.18 cm LVPW thickness (0.5 - 1.0 cm): 1.08 cm e': 0.08 m/s E - e': 11.45 LVOT Max Gradient: 3.58 mm[Hg] LVOT Area (cm2): 0.95 m/s Peak Velocity (LVOT): 0.95 m/s Mean Velocity (LVOT): 0.63 m/s LVOT Diameter 2.24 cm Left Ventricular Ejection Fraction: 65 % Left Atrium LA Volume Index (2D A2C): 28.01 ml/m2 Left Atrium Systolic Dimension: 3.58 cm Mitral Valve MV E to A Ratio: 1.05 Mitral Valve A-Wave Peak Velocity: 0.93 m/s Mitral Valve E-Wave Peak Velocity: 0.97 m/s Right Ventricle RV Internal Diastolic Dimension: 3.48 cm Aorta AO Root Diam: 3.25 cm Ascending Ao Diam: 2.65 cm Aortic Valve AoV Area (Peak Jan): 3.95 cm2, 3.95 cm2 AoV Area (VTI): 3.55 cm2, 3.55 cm2 Peak Velocity(Antegrade Flow): 0.95 m/s Peak Gradient(Antegrade Flow): 3.58 mm[Hg] Mean Velocity(Antegrade Flow): 0.65 m/s Mean Gradient(Antegrade Flow): 1.91 mm[Hg] Velocity Time Integral: 21.75 cm Tricuspid Valve Peak Velocity (Regurgitant Flow): 2.29 m/s, 2.89 m/s Pulmonic Valve Mean Gradient: 2.69 mm[Hg] Mean Velocity: 0.78 m/s Peak Velocity: 1.06 m/s, 0.92 m/s Peak Gradient: 3.36 mm[Hg], 4.50 mm[Hg] Right Atrium Right Atrium Systolic Pressure: 35.70 ml, 35.70 ml Dictated by: Johnathan Garcia M.D. on 05/05/2023 at 16:40 Approved by: Johnathan Garcia M.D. on 05/05/2023 at 16:42 Dictated By: JOHNATHAN GARCIA Signed By: 05/05/231642 DD/ 41 TD/TT: Sheriff Detective: Procedure Note Radiology, Radiologist, MD - 05/05/2023 [place] [address] Cardiology Report Signed Patient: FRANKY SRINIVASANMR#: [id number] : 1965Acct:[id number] Age/Sex: 57 / FADM Date: 05/05/23 Loc: CARD Attending Dr: Jaymie Phoenix NP Ordering Physician: Jaymie Phoenix NP Date of Service: 05/05/23 Procedure(s): CA echo doppler complete Accession Number(s): [id number] cc: Jaymie Phoenix NP Patient Name: FRANKY SRINIVASAN MR#: [id number] : 1965 Exam Date: 05/05/2023 Ordering Doctor: MEREIDTH Phoenix CNP ECHOCARDIOGRAM REPORT PROCEDURE: CA ECHO DOPPLER COMPLETE INDICATIONS: Bilateral lower extremity edema, COPD, primaryhypertension COMPARISON: None. DESCRIPTION: COMPLETE ECHOCARDIOGRAM Real-time transthoracic echocardiography with 2D, M-mode, spectral and color flow Dopplerperformed. QUALITY: Technical quality was adequate. LEFT VENTRICLE: Normal chamber size. Mild concentric left ventricular hypertrophy. Global left ventricular systolic function is normal. LV EF: Estimated left ventricular ejection fraction is 65%. DIASTOLIC: Diastolic function is indeterminate. ATRIAL SEPTUM: LEFT ATRIUM: Normal chamber size. RIGHT ATRIUM: Mild dilatation. RIGHT VENTRICLE: Normal chamber size. Normal right ventricularsystolic function. TRICUSPID VALVE: Normal mobility and thickness. No stenosis withtrivial regurgitation. Mild pulmonary hypertension. RVSP 36 mmHg. MITRAL VALVE: Normal mobility and thickness. No evidence of mitralvalve stenosis. There is no mitral annular calcification. Trivial mitral regurgitation. AORTIC VALVE: Normal trileaflet appearance. No visible sclerosis.Normal leaflet mobility. No evidence of aortic valve stenosis. No aortic regurgitation. AORTIC ROOT: Normal diameter and appearance. PULMONIC VALVE: Normal thickness and mobility. No stenosis. Trivial regurgitation. PERICARDIUM: Trivial pericardial effusion. IVC: Collapses with inspirations. Normal size. PLEURA: CONCLUSION: 1. Mild concentric left ventricular hypertrophy with normal systolicfunction. Estimated LVEF is 65%. 2. Normal right ventricular size and systolic function. 3. No significant valvular dysfunction. 4. Mildly elevated right-sided pressures. Adult Echocardiography Procedure Report Left Ventricle LVEDD (3.7 - 5.6 cm): 4.62 cm LVESD (2.2 - 4.0 cm): 3.22 cm LVIVS thickness (0.6 - 1.2 cm): 1.18 cm LVPW thickness (0.5 - 1.0 cm): 1.08 cm e': 0.08 m/s E - e': 11.45 LVOT Max Gradient: 3.58 mm[Hg] LVOT Area (cm2): 0.95 m/s Peak Velocity (LVOT): 0.95 m/s Mean Velocity (LVOT): 0.63 m/s LVOT Diameter 2.24 cm Left Ventricular Ejection Fraction: 65 % Left Atrium LA Volume Index (2D A2C): 28.01 ml/m2 Left Atrium Systolic Dimension: 3.58 cm Mitral Valve MV E to A Ratio: 1.05 Mitral Valve A-Wave Peak Velocity: 0.93 m/s Mitral Valve E-Wave Peak Velocity: 0.97 m/s Right Ventricle RV Internal Diastolic Dimension: 3.48 cm Aorta AO Root Diam: 3.25 cm Ascending Ao Diam: 2.65 cm Aortic Valve AoV Area (Peak Jan): 3.95 cm2, 3.95 cm2 AoV Area (VTI): 3.55 cm2, 3.55 cm2 Peak Velocity(Antegrade Flow): 0.95 m/s Peak Gradient(Antegrade Flow): 3.58 mm[Hg] Mean Velocity(Antegrade Flow): 0.65 m/s Mean Gradient(Antegrade Flow): 1.91 mm[Hg] Velocity Time Integral: 21.75 cm Tricuspid Valve Peak Velocity (Regurgitant Flow): 2.29 m/s, 2.89 m/s Pulmonic Valve Mean Gradient: 2.69 mm[Hg] Mean Velocity: 0.78 m/s Peak Velocity: 1.06 m/s, 0.92 m/s Peak Gradient: 3.36 mm[Hg], 4.50 mm[Hg] Right Atrium Right Atrium Systolic Pressure: 35.70 ml, 35.70 ml Dictated by: Johnathan Garcia M.D. on 05/05/2023 at 16:40 Approved by: Johnathan Garcia M.D. on 05/05/2023 at 16:42 Dictated By: JOHNATHAN GARCIA Signed By:05/05/231642 DD/ 41 TD/TT: Sheriff Detective: us Jaymie Phoenix NP [facility] Final Result documented in this encounter Visit Diagnoses Not on filedocumented in this encounter Care Teams Radiology Director Relationship Specialty Start Date End Date Rohan Rodríguez MD [address] [place] [address] PCP - General Family Medicine 05/13/23 Jaymie Phoenix NP Nurse Practitioner Family Medicine 01/26/23 Jaymie Phoenix NP Nurse Practitioner Family Medicine 05/13/23 documented as of this encounter
--- OUTSIDE RECORDS SUMMARY | 2024-10-10 10:04 | XMS_ITS | Encounter Summary ---
Author Organization [facility] Address [address] [place] [address] Care Team Providers Care Account Management Specialist Name Role Phone Jaymie Phoenix ORACLE DATABASE DEVELOPER Unavailable [phone] Rohan Rodríguez MD Primary Care Provider [phone] Jaymie Phoenix ORACLE DATABASE DEVELOPER Unavailable [phone] Reason for Visit * Reason Comments Med Refill Encounter Details Date Type Department Care Team (Late st Contact Info) Description 09/29/2024 Refill [facility] [address] [place] [address] Jaymie Phoenix ORACLE DATABASE DEVELOPER [address] [place] [address] Gastro-esophageal reflux disease without esophagitis; Mixed hyperlipidemia ; Fibromyalgia; Localized edema Social History Tobacco Use Types Packs/Day Years [...] week 05/13/2023 How often do you attend faith or mandaeism serv ices? Never 05/13/2023 Do you belong to any clubs o r organizations such as faith groups, unions, fraternal or athletic groups, or [...] Answer Date Recorded Patient Health Questionnaire-2 Score 1 07/31/2024 [facility] - Occupational Stress Questionnaire Answer Date Recorded [...] place to sleep or slept in a nursing home (including now)? No 05/13/2023 Comments Unknown Sex and Gender Information Value Date Recorded Sex Assigned at Not on file Legal Sex Female 7:27 PM EDT Gender Identity Not on file Sexual Orientation Not on file documented as of this encounter Plan of Treatment Upcoming Encounters Date Type Department Care Team (Late st Contact Info) Description 10/31/2024 11:00 AM EDT Office Visit [facility] [address] [place] [address] Jaymie Phoenix NP [address] [place] [address] 12/07/2024 1:45 PM EDT Office Visit [facility] [address] [place] [address] Nat Henderson DO [address] [place] [address] 08/02/2025 10:30 AM EDT Office Visit [facility] [address] [place] [address] Jaymie Phoenix NP [address] [place] [address] documented as of this encounter Visit Diagnoses Diagnosis Gastro-esophageal reflux disease without esophagitis Mixed hyperlipidemia Mixed hyperlipidemia Fibromyalgia Unspecified myalgia and myositis Localized edema Edema documented in this encounter Additional Health Concerns Assessment Noted Time PHQ-9 Depression Total Score: 2 08/01/19 25 10:22 AM EDT documented as of this encounter Care Teams Account Management Specialist Relationship Specialty Start Date End Date Rohan Rodríguez MD [address] [place] [address] PCP - General Family Medicine 05/13/23 Jaymie Phoenix NP Nurse Practitioner Family Medicine 01/26/23 Jaymie Phoenix NP Nurse Practitioner Family Medicine 05/13/23 documented as of this encounter
--- OUTSIDE RECORDS SUMMARY | 2024-10-10 10:04 | XMS_ITS | Encounter Summary ---
Author Organization [facility] Address [address] [place] [address] Care Team Providers Care Jet Aircraft Servicer Name Role Phone Jaymie Phoenix UX ENGINEER Unavailable Rohan Rodríguez MD Primary Care Provider [phone] Jaymie Phoenix UX ENGINEER Unavailable [phone] Encounter Details Date Type Department Care Team (Late st Contact Info) Description 05/31/2023 Clinisync Result Encounter [facility] External Department Unsolicited Jaymie Phoenix NP [address] [place] [address] Social History Tobacco Use Types Packs/Day Years [...] week 05/13/2023 How often do you attend yarsani or pentecostalism serv ices? Never 05/13/2023 Do you belong to any clubs o r organizations such as yarsani groups, unions, fraternal or athletic groups, or [...] Recorded Patient Health Questionnaire-2 Score 0 06/03/2023 [facility] - Occupational Stress Questionnaire Answer Date [...] place to sleep or slept in a detention (including now)? No 05/13/2023 Comments Unknown Sex and Gender Information Value Date Recorded Sex Assigned at Not on file Legal Sex Female 7:27 PM EDT Gender Identity Not on file Sexual Orientation Not on file documented as of this encounter Functional Status * Audit-C Score Answer Date of Assessment Author 1 06/03/2023 3:03 PM EDT Clarisa Varma MA * Question Answer Date of Assessment Author Q1: How often do you have a drink containing alcohol? Monthly or less 06/03/2023 3:03 PM HANYT Jay Varma MA Q2: How many drinks containing alcohol do you have on a typical day when you are drinking? 1 or 2 06/03/2023 3:03 PM EDT Tomeka Varma MA Q3: How often do you have six or more drinks on one occasion? Never 06/03/2023 3:03 PM HANYT Jay Varma MA * Over the past 2 weeks, how often have you been bothered by any of the following problems? Question Answer Date of Assessment Author Little interest or pleasure in doing things Not at all 06/03/2023 2:55 PM HANYT Jay Varma MA Feeling down, depressed, or hopeless Not at all 06/03/2023 2:55 PM Jay Zarco MA Patient Health Questionnaire-2 Score 0 06/03/2023 2:55 PM EDT Sara Varma MA * Question Answer Date of Assessment Author Trouble falling or staying asleep, or sleeping too much Not at all 06/03/2023 2:55 PM EDT Clarisa Rendon MA Feeling tired or having little energy Several days 06/03/2023 2:55 PM EDT Jay Varma MA Poor appetite or overeating Several days 06/03/2023 2: 55 PM EDT Clarisa Varma MA Feeling bad about yourself - or that you are a failure or have let yourself or your family down Not at all 06/03/2023 2:55 PM EDT Jay Varma MA Trouble concentrating on things, such as reading the newspaper or watching television Not at all 06/03/2023 2:55 PM EDT Jay Varma MA Moving or speaking so slowly that other people could have noticed? Or the opposite - being so fidgety or restless that you have been moving around a lot more than usual. Not at all 06/03/2023 2:55 PM EDT Jay Varma MA Thoughts that you would be better off or hurting yourself in some way Not at all 06/03/2023 2:55 PM EDT Calvin Varma MA Patient Health Questionnaire-9 Score 2 06/03/2023 2:55 PM EDT Sara Varma MA * How difficult have these problems made it for you to do your work, take care of things at home, or get along with other people? Answer Date of Assessment Author Not difficult at all 06/03/2023 2:55 PM EDT Clarisa Dasilva MA documented as of this encounter Plan of Treatment Upcoming Encounters Date Type Department Care Team (Late st Contact Info) Description 10/31/2024 11:00 AM EDT [facility] [address] [place] [address] Jaymie Phoenix NP [address] [place] [address] 12/07/2024 1:45 PM EDT Office Visit [facility] [address] [place] [address] Nat Henderson DO [address] [place] [address] 08/02/2025 10:30 AM EDT [facility] Visit [facility] [address] [place] [address] Jaymie Phoenix NP [address] [place] [address] documented as of this encounter Procedures Procedure Name Priority Date/Time Associated Diagnosis Comments CT LUNG SCREENING LOW DOSE 05/31/2023 2:46 PM EDT ALL BASIC METABOLIC PANEL Routine 05/31/2023 2:31 PM EDT documented in this encounter Results * CT LUNG SCREENING LOW DOSE (05/31/2023 2:46 PM EDT) Anatomical Region Laterality Modality Other 05/31/2023 2:46 PM EDT Narrative 05/31/2023 2:48 PM EDT The [address] [address] [address] Scan Report Signed Patient: FRANKY SRINIVASAN MR#: [id number] : 1965 Acct:[id number] Age/Sex: 57 / F ADM Date: 05/31/23 Loc: CT Attending Dr: Jaymie Phoenix NP Ordering Physician: Jaymie Phoenix NP Date of Service: 05/31/23 Procedure(s): CT lung screening low-dose Accession Number(s): [id number] cc: Jaymie Phoenix NP [address] [address] Patient Name: FRANKY SRINIVASAN MRN: [id number] date: 1965 Sex: F Assigned Patient Location: CT Current Patient Location: CT Accession/Order Number: [id number] Exam Date: 05/31/2023 13:47 Report Date: 05/31/2023 14:46 At the request of: JAYMIE PHOENIX Procedure: CT lung screening low-dose EXAM TYPE: CT lung screening low-dose INDICATION: Current tobacco use, smoking. COMPARISON: LD CT scan of the chest 05/29/2022 TECHNIQUE: Noncontrast, Low dose, helical axial images of the chest were obtained, and thin section, axial MIP, and coronal and sagittal reformats were also submitted from the acquisition scanner under radiologist supervision. Each series was submitted in a lung algorithm. Dose reduction techniques were achieved by using automated exposure control and/or adjustment of mA and/or kV according to patient size and/or use of iterative reconstruction technique. FINDINGS: Please note that this examination was tailored for evaluation of pulmonary nodules, and therefore soft tissue detail is suboptimal. *Images degraded by motion artifact. Heart size within normal limits. Mild coronary artery calcification. No pericardial effusion. No aortic aneurysm. No mediastinal, hilar or axillary lymphadenopathy. Layering debris within the distal trachea and proximal bronchi bilaterally (series 6, image 79) No central endobronchial nodule. Mild diffuse emphysematous change with chronic bronchial wall thickening. Scattered areas of subsegmental atelectasis bilaterally. No pleural effusion or pneumothorax. No gross findings of suspicious pulmonary nodule. Small sliding hiatal hernia with 2 small nonenlarged paraesophageal lymph nodes. Evaluation of the upper abdomen Limited secondary to low dose technique and lack of IV contrast. No acute fracture. IMPRESSION : Lung RADS category 1: Negative. RECOMMENDATIONS: Continued annual LD screening CT scan of the chest. Electronically authenticated by: SALEEM MALDONADO Date: 05/31/2023 14:46 Dictated By: Saleem Maldonado M.D. Signed By: 05/31/23 1448 DD/ 1446 TD/TT: Manufacturing Electrician: Procedure Note Radiology, Radiologist, - 05/31/2023 [place] [address] CT Scan Report Signed Patient: FRANKY SRINIVASANMR#: [id number] : 1965Acct:[id number] Age/Sex: 57 / FADM Date: 05/31/23 Loc: CT Attending Dr: Jaymie Phoenix NP Ordering Physician: Jaymie Phoenix NP Date of Service: 05/31/23 Procedure(s): CT lung screening low-dose Accession Number(s): [id number] cc: Jaymie Phoenix NP [place] [id number] Patient Name: FRANKY SRINIVASAN MRN: [id number] date: 1965 Sex: F Assigned Patient Location: CT Current Patient Location: CT Accession/Order Number: [id number] Exam Date: 05/31/2023 13:47 Report Date: 05/31/2023 14:46 At the request of: JAYMIE PHOENIX Procedure: CT lung screening low-dose EXAM TYPE: CT lung screening low-dose INDICATION: Current tobacco use, smoking. COMPARISON: LD CT scan of the chest 05/29/2022 TECHNIQUE: Noncontrast, Low dose, helical axial images of the chest were obtained, and thin section, axial MIP, and coronal and sagittal reformatswere also submitted from the acquisition scanner under radiologist supervision. Each series was submitted in a lung algorithm. Dose reduction techniques were achieved by using automated exposurecontrol and/or adjustment of mA and/or kV according to patient size and/or use of iterative reconstruction technique. FINDINGS: Please note that this examination was tailored for evaluation of pulmonary nodules, and therefore soft tissue detail is suboptimal. *Images degraded by motion artifact. Heart size within normal limits. Mild coronary artery calcification. No pericardial effusion. No aortic aneurysm. No mediastinal, hilar oraxillary lymphadenopathy. Layering debris within the distal trachea and proximal bronchi bilaterally (series 6, image 79) No central endobronchial nodule. Milddiffuse emphysematous change with chronic bronchial wall thickening. Scatteredareas of subsegmental atelectasis bilaterally. No pleural effusion or pneumothorax.No gross findings of suspicious pulmonary nodule. Small sliding hiatal hernia with 2 small nonenlarged paraesophageal lymph nodes. Evaluation of the upper abdomen Limited secondary to low dosetechnique and lack of IV contrast. No acute fracture. IMPRESSION : Lung RADS category 1: Negative. RECOMMENDATIONS: Continued annual LD screening CT scan of the chest. Electronically authenticated by: SALEEM MALDONADO Date: 05/31/2023 14:46 Dictated By: Saleem Maldonado M.D. Signed By:05/31/23 1448 DD/ 45 TD/TT: Manufacturing Electrician: us Jaymie Phoenix NP [facility] Final Result * (ABNORMAL) ALL BASIC METABOLIC PANEL (05/31/2023 2:31 PM EDT) SODIUM 140 136 - 145 mmol/L [facility] POTASSIUM 4.4 3.5 - 5.1 mmol/L [facility] CHLORIDE 99 98 - 107 mmol/L [facility] CARBON DIOXIDE 32.9(H) 21.0 - 32.0 mmol/L [facility] ANION GAP 12.5 [facility] GLUCOSE 102 74 - 106 mg/dL [facility] BLOOD UREA NITROGEN 13.0 7.0 - 18.0 mg/dL [facility] CREATININE 1.38(H) 0.55 - 1.02 mg/dL [facility] EGFR-AF GREENLANDIC 47(L) >=60 [facility] EGFR-NON AF [place] 39(L) >=60 [facility] BUN CREATININE RATIO 9.4 [facility] CALCIUM 10.1 8.5 - 10.1 mg/dL [facility] 05/31/2023 2:31 PM EDT 05/31/2023 2:31 PM EDT Narrative [facility] - 05/31/2023 2:59 PM EDT us Jaymie Phoenix UX ENGINEER [facility] Final Result [facility] documented in this encounter Visit Diagnoses Not on filedocumented in this encounter Care Teams Jet Aircraft Servicer Relationship Specialty Start Date End Date Rohan Rodríguez MD [address] [place] [address] PCP - General Family Medicine 05/13/23 Jaymie Phoenix NP Nurse Practitioner Family Medicine 01/26/23 aJymie Phoenix NP Nurse Practitioner Family Medicine 05/13/23 documented as of this encounter
--- OUTSIDE RECORDS SUMMARY | 2024-10-10 10:04 | XMS_ITS | Encounter Summary ---
Author Organization [facility] Address [address] [place] [address] Care Team Providers Care Road Supervisor Of Engines Name Role Phone Jaymie Phoenix DEFENCE INTELLIGENCE ANALYST Unavailable [phone] Shaikh PERRY Marquez Primary Care Provider [phone] Rohan Rodríguez MD Primary Care Provider [phone] Rohan Rodríguez MD Primary Care Provider [phone] Jaymie Phoenix DEFENCE INTELLIGENCE ANALYST Unavailable [phone] Encounter Details Date Type Department Care Team (Late st Contact Info) Description 04/12/2023 Orders Only [facility] [address] [place] [address] Jaymie Phoenix, DEFENCE INTELLIGENCE ANALYST [address] [place] [address] Social History Tobacco Use Types Packs/Day Years [...] [facility] [address] [place] [address] Jaymie Phoenix, NILE [address] [place] [address] 12/07/2024 1:45 PM EDT Office Visit [facility] [address] [place] [address] Nat Henderson, DO [address] [place] [address] 08/02/2025 10:30 AM EDT Office Visit [facility] [address] [place] [address] Jaymie Phoenix NP [address] [place] [address] documented as of this encounter Procedures Procedure Name Priority Date/Time Associated Diagnosis Comments ELECTROCARDIOGRAM REPORT Routine 024 10:26 AM EST documented in this encounter Results * Electrocardiogram Report (03/26/2023 10:26 AM EST) Jaymie Pheonix NP IN CLINIC/BEDSIDE ORDERABLES Fi nal Result documented in this encounter Visit Diagnoses Not on filedocumented in this encounter Care Teams Road Supervisor Of Engines Relationship Specialty Start Date End Date Shaikh Marquez MD [address] [place] [address] PCP - General Internal Medicine 03/25/23 05/02/23 Rohan Rodríguez MD [address] [place] [address] PCP - General Family Medicine 05/03/23 05/03/23 Rohan Rodríguez MD [address] [place] [address] PCP - General Family Medicine 05/13/23 Jaymie Phoenix NP Nurse Practitioner Family Medicine 01/26/23 Jaymie Phoenix NP Nurse Practitioner Family Medicine 05/13/23 documented as of this encounter
--- OUTSIDE RECORDS SUMMARY | 2024-10-10 10:04 | XMS_ITS | Clinical Summary ---
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 Name Role Phone Jaymie Phoenix MANAGER ACCOUNT MANAGEMENT Unavailable [phone] Rohan Rodríguez MD Primary Care Provider [phone] Jaymie Phoenix MANAGER ACCOUNT MANAGEMENT Unavailable [phone] Allergies Active Allergy Reactions Criticality Noted Date Comments Penicillins Hives,Shortness of breath,Swelling High 01/04/2023 Shortness of breath Prednisone Itching Medium 01/04/2023 Itchy eyes and shortness of breath Medications cholecalciferol (Vitamin D-3) 125 MCG (5000 UT) tablet as directed Orally Active ibuprofen 800 MG tablet Take 800 mg by mouth every 8 (eight) hours if needed 023 Active lamoTRIgine (LaMICtal) 200 MG tablet Take 200 mg by mouth at bedtime Active prazosin (Minipress) 2 MG capsule Take 2 mg by mouth at bedtime Active ipratropium-albut shannan (Duo-Neb) 0.5-2.5 mg/3 mL nebulizer solution Take 3 mL by nebulization every 6 (six) hours if needed for wheezing or shortness of breath 024 Active albuterol (2.5 MG/3ML) 0.083% nebulizer solution Take 2.5 mg by nebulization every 6 (six) hours if needed for shortness of breath or wheezing 024 Active lamoTRIgine (LaMICtal) 100 MG tablet Take 100 mg by mouth Daily Active prazosin (Minipress) 1 MG capsule Take 1 mg by mouth at bedtime 10/08/2 024 Active albuterol HFA 90 mcg/act inhalerIndication s:COPD mixed type (HCC) Inhale 2 puffs every 6 (six) hours if needed for shortness of breath or wheezing 18 g Active QUEtiapine (SEROquel) 300 MG tablet Take 300 mg by mouth at bedtime Active amitriptyline (Elavil) 100 MG tabletIndications :Fibromyalgia Take 0.5 tablets (50 mg) by mouth at bedtime 45 tablet 1 2024 Active Budeson-Glycopyrr ol-Formoterol (Breztri Aerosphere) 160-9-4.8 MCG/ACT aerosolIndication s:COPD mixed type (HCC) Inhale 2 puffs in the morning and 2 puffs before bedtime. Inhale 2 puffs in the morning and 2 puffs before bedtime. 32 g 2024 Active bumetanide (Bumex) 0.5 MG tabletIndications :Bilateral lower extremity edema Take M W F only 27 tablet Active cetirizine (ZyrTEC) 10 MG tabletIndications :Environmental and seasonal allergies Take 1 tablet (10 mg) by mouth Daily 90 tablet 2024 Active montelukast (Singulair) 10 MG tabletIndications :Environmental and seasonal allergies Take 1 tablet (10 mg) by mouth at bedtime 90 tablet 2024 Active pregabalin (Lyrica) 100 MG capsuleIndication s:Fibromyalgia Take 1 capsule (100 mg) by mouth in the morning and 1 capsule (100 mg) before bedtime. 60 capsule 2 Active propranolol (Inderal) 40 MG tabletIndications :Personal history of other diseases of the nervous system and sense organs Take 1 tablet (40 mg) by mouth in the morning and 1 tablet (40 mg) before bedtime. 180 tablet 2024 Active varenicline (Chantix) 1 MG tabletIndications :Tobacco dependence Take 1 tablet (1 mg) by mouth in the morning and 1 tablet (1 mg) before bedtime. Take with full glass of water. 60 tablet Active Varenicline Tartrate, Starter, 0.5 MG X 11 & 1 MG X 42 tablet therapy packIndications:T obacco dependence Take 1 tablet by mouth Daily 0.5mg once a day for 3 days, then 0.5mg twice a day for 4 days, then 1mg twice a day 53 each Active cyclobenzaprine (Flexeril) 10 MG tabletIndications :Fibromyalgia Syndrome,Muscle Spasm Take 5 mg by mouth 3 (three) times a day as needed for muscle spasms Active omeprazole (PriLOSEC) [address] capsuleIndication s:Gastro-esophage al reflux disease without esophagitis Take 1 capsule (40 mg) by mouth Daily 30 capsule 2 2024 Active atorvastatin (Lipitor) 20 MG tabletIndications :Mixed hyperlipidemia Take 1 tablet (20 mg) by mouth at bedtime 30 tablet 2 2024 Active meloxicam (Mobic) 15 MG tabletIndications :Fibromyalgia Take 1 tablet (15 mg) by mouth Daily 30 tablet 2 2024 Active spironolactone (Aldactone) 50 MG tabletIndications :Localized edema Take 1 tablet (50 mg) by mouth in the morning. 30 tablet 2 2024 Active tiZANidine (Zanaflex) 4 MG tabletIndications :Fibromyalgia Take 1 tablet (4 mg) by mouth every 12 (twelve) hours if needed for muscle spasms 60 tablet 2 2024 Active spironolactone (Aldactone) 50 MG tabletIndications :Localized edema Take 1 tablet (50 mg) by mouth in the morning. 30 tablet 5 2024 Discontinued meloxicam (Mobic) 15 MG tablet Take 15 mg by mouth Daily 2024 Discontinued tiZANidine (Zanaflex) 4 MG tabletIndications :Fibromyalgia Take 1 tablet (4 mg) by mouth every 12 (twelve) hours if needed for muscle spasms 60 tablet 2 025 2024 Discontinued atorvastatin (Lipitor) 20 MG tabletIndications :Mixed hyperlipidemia Take 1 tablet (20 mg) by mouth at bedtime 90 tablet 1 025 2024 Discontinued omeprazole (PriLOSEC) [address] capsuleIndication s:Gastro-esophage al reflux disease without esophagitis Take 1 capsule (40 mg) by mouth Daily 90 capsule 1 025 2024 Discontinued Active Problems Problem Noted Date Diagnosed Date Acute back pain with sciatica 08/28/2024 Screening for lung cancer 07/31/2024 Assessment & Plan (07/31/2024 11:24 AM EDT): Patient meets requirements for low dose CT [...] counseled on the importance of smoking cessation. Chronic kidney disease, stage 3a 06/07/2024 Assessment & Plan (07/31/2024 11:21 AM EDT): Check Chem 8 Environmental and seasonal allergies 04/19/2024 Tremor 02/10/2024 Assessment & Plan (07/31/2024 7:12 AM EDT): Will refer to neuro for this Differentials: side effects med, PD? Assessment & Plan (02/10/2024 5:13 PM EST): Will refer to neuro for this Differentials: side effects med, PD? COPD with acute exacerbation 01/03/2024 Assessment & Plan (02/10/2024 7:12 AM EST): Was referred to pulmonology Continue with albuterol prn, and breztri as directed Urged to quit smoking Stay UTD on immunizations: flu, covid, pneumonia, and RSV Assessment & Plan (01/03/2024 11:14 AM EST): Pt reports getting better , feels better than in hospital I.S. 10 times hour every hour awake Recommend quitting smoking Continue nebulizers Refer to pulmonary Encounter for subsequent brien ua wellness visit (AWV) in Medicare patient 06/03/2023 Assessment & Plan (07/31/2024 7:11 AM EDT): Reviewed Ht/Wt/BMI Recommend eye exam yearly Recommend dental exams twice a year Balance work/leisure activities Exercises is recommended most days of the week (appropriate as chronic conditions allow) Follow up yearly and prn Assessment & Plan (06/03/2023 6:38 PM EDT): Reviewed Ht/Wt/BMI Recommend eye exam yearly Recommend dental exams twice a year Balance work/leisure activities Exercises is recommended most days of the week (appropriate as chronic conditions allow) Follow up yearly and prn WINSOME (obstructive sleep apnea) 05/13/2023 Assessment & Plan (07/31/2024 7:05 AM EDT): You have a diagnosis of obstructive sleep apnea. It is recommended that you wear your PAP device any time while in bed sleeping. Not using the PAP device can increase your risk of elevated/uncontrolled high blood pressure, atrial fibrillation, heart attack, stroke, or sudden . Compliant: no Assessment & Plan (02/10/2024 7:11 AM EST): You have a diagnosis of obstructive sleep apnea. It is recommended that you wear your PAP device any time while in bed sleeping. Not using the PAP device can increase your risk of elevated/uncontrolled high blood pressure, atrial fibrillation, heart attack, stroke, or sudden . Compliant: no Assessment & Plan (01/03/2024 6:42 AM EST): Non compliant with use of PAP Assessment & Plan (05/13/2023 1:35 PM EDT): Non compliant with use of PAP May be partial cause of swelling Acute megaloblastic anemia 02/18/2023 Anxiety and depression 02/18/2023 Assessment & Plan (07/31/2024 7:11 AM EDT): Continue with Dr Gomez Assessment & Plan (06/03/2023 6:38 PM EDT): Continue with Dr Gomez Hyperplastic polyp of sigmoid colon 02/18/2023 Internal derangement of left knee 02/18/2023 Osteoarthritis of knee 02/18/2023 Osteopenia 02/18/2023 Patellofemoral syndrome of left knee 02/18/2023 Positive colorectal cancer screening using Colog uard test 02/18/2023 Vitamin B12 deficiency 02/18/2023 Vitamin D deficiency 02/18/2023 Body mass index (BMI) 40.0-44.9, adult Morbid (severe) obesity due to excess calories 0 02/18/2023 Assessment & Plan (07/31/2024 11:22 AM EDT): Discussed with patient their BMI (actual, verses recommended). We have also discussed lifestyle modifications: attempts to perform physical activity as chronic conditions allow, also to monitor dietary intake: increasing protein/fruits/veggies and lowering carb intake (unless contraindicated). Limit sodas, juices, and sugary drinks. Chronic pain related issues does limit ability to exercise on regular basis Assessment & Plan (02/10/2024 7:14 AM EST): Discussed with patient their BMI (actual, verses recommended). We have also discussed lifestyle modifications: attempts to perform physical activity as chronic conditions allow, also to monitor dietary intake: increasing protein/fruits/veggies and lowering carb intake (unless contraindicated). Limit sodas, juices, and sugary drinks. Chronic pain related issues does limit ability to exercise on regular basis Chronic lumbar pain 02/18/2023 Mixed hyperlipidemia 01/26/2023 Assessment & Plan (07/31/2024 7:11 AM EDT): On statin therapy Check labs yearly and prn dose changes Assessment & Plan (01/03/2024 6:48 AM EST): On statin therapy, check labs Assessment & Plan (01/26/2023 10:36 AM EST): Check labs Tobacco dependence 01/26/2023 Overview (05/31/2023): Low dose CT scan chest: 05/31/23: WNL Assessment & Plan (07/31/2024 11:23 AM EDT): The patient has been advised of the risks of continued smoking: stroke, CA, all forms of cancer, lung disease, and . Options for quitting smoking include: cold turkey, hypnosis, acupuncture, nicotine replacement meds (gum, lozenges, and patches), Buproprion, and Varenicline. At this time pt is encouraged to evaluate their goals for wanting to quit smoking, and reach out to provider when ready to start this process Would like dr david thompson said ok to trial, just needs to monitor for worsening in depression Fu in 8 weeks Assessment & Plan (02/10/2024 7:14 AM EST): The patient has been advised of the risks of continued smoking: stroke, CA, all forms of cancer, lung disease, and . Options for quitting smoking include: cold turkey, hypnosis, acupuncture, nicotine replacement meds (gum, lozenges, and patches), Buproprion, and Varenicline. At this time pt is encouraged to evaluate their goals for wanting to quit smoking, and reach out to provider when ready to start this process Assessment & Plan (01/03/2024 6:46 AM EST): The patient has been advised of the risks of continued smoking: stroke, CA, all forms of cancer, lung disease, and . Options for quitting smoking include: cold turkey, hypnosis, acupuncture, nicotine replacement meds (gum, lozenges, and patches), Buproprion, and Varenicline. At this time pt is encouraged to evaluate their goals for wanting to quit smoking, and reach out to provider when ready to start this process Assessment & Plan (06/03/2023 6:39 PM EDT): The patient has been advised of the risks of continued smoking: stroke, CA, all forms of cancer, lung disease, and . Options for quitting smoking include: cold turkey, hypnosis, acupuncture, nicotine replacement meds (gum, lozenges, and patches), Buproprion, and Varenicline. At this time pt is encouraged to evaluate their goals for wanting to quit smoking, and reach out to provider when ready to start this process Assessment & Plan (05/13/2023 1:35 PM EDT): 1ppd X42 years = 42 pack years. Patient meets requirements for low dose CT [...] counseled on the importance of smoking cessation. The patient has been advised of the risks of continued smoking: stroke, CA, all forms of cancer, lung disease, and . Options for quitting smoking include: cold turkey, hypnosis, acupuncture, nicotine replacement meds (gum, lozenges, and patches), Buproprion, and Varenicline. At this time pt is encouraged to evaluate their goals for wanting to quit smoking, and reach out to provider when ready to start this process Assessment & Plan (01/26/2023 10:37 AM EST): Recommend quitting, pt declines Primary hypertension 01/26/2023 Assessment & Plan (07/31/2024 7:06 AM EDT): Please check blood pressure daily and record DASH diet Limit caffeine Take medication as directed Contact office if chest pain, pressure, dizziness, shortness of breath, swelling legs Recommend slow position changes Current meds; Assessment & Plan (01/03/2024 6:45 AM EST): Please check blood pressure daily and record DASH diet Limit caffeine Take medication as directed Contact office if chest pain, pressure, dizziness, shortness of breath, swelling legs Recommend slow position changes Assessment & Plan (06/03/2023 6:40 PM EDT): stable Assessment & Plan (04/26/2023 8:22 PM EDT): Stable at this time Assessment & Plan (03/16/2023 2:23 PM EST): At goal, no changes in doses Assessment & Plan (01/26/2023 10:39 AM EST): Stable on current meds Bilateral lower extremity edema 01/26/2023 Assessment & Plan (07/31/2024 11:22 AM EDT): Current meds: bumex (3 times per week) and spironolactone daily Elevate feet 2-3 times daily Limit sodium Recommend compression stockings Check labs yearly and prn Assessment & Plan (05/13/2023 1:34 PM EDT): Continues to slowly worsen especially in the RLE, she was neg for DVT/PE in the last month [facility], does have venous insuffiency but I do not think this is the entire problem Also hx of ETOH use, and also had hysterectomy non cancerous reasons, however does have both ovaries left Reviewed CT abd/pelvis and echo Pulmonary artery hypertension Assessment & Plan (04/26/2023 8:28 PM EDT): Continues to slowly worsen especially in the RLE, she was neg for DVT/PE in the last month [facility], does have venous insuffiency but I do not think this is the entire problem Need to look for other differentials, will order ECHO (last one was 2022, EF 65%, LVH, sm pericardial effusion, with wheeze and edema consider updated ECHO Also hx of ETOH use, and also had hysterectomy non cancerous reasons, however does have both ovaries left Will attempt to order a CT abd/pelvis to r/o any intra abd/pelvic abnormals as well Assessment & Plan (03/16/2023 2:25 PM EST): Just started on new dose of aldactone, fu in 6 weeks for recheck Assessment & Plan (01/26/2023 10:40 AM EST): Stable on current meds COPD mixed type 01/26/2023 Assessment & Plan (07/31/2024 11:21 AM EDT): Current meds: breztri, albuterol HFA and neb prn Was referred to Pulmonology, is supposed to get a PFT prior to seeing pulmonology Assessment & Plan (02/10/2024 5:12 PM EST): Current meds: breztri, albuterol HFA and neb prn Was referred to Pulmonology Needs a PFT first Assessment & Plan (01/03/2024 6:45 AM EST): Recent hospitalization for exacerbation with hypoxia as well 2 ER visits, second one admitted d/t hypoxia Has seen Naomy in the past for her COPD Assessment & Plan (06/03/2023 6:40 PM EDT): Cont mannie, does have exp wheeze, mild No resp distress Assessment & Plan (05/13/2023 1:31 PM EDT): Cont mannie, does have exp wheeze, mild-mod No resp distress Will trial singulair Fu in 3 weeks, advised of side effects from singulair Assessment & Plan (04/26/2023 8:23 PM EDT): Cont mannie, does have exp wheeze, mild-mod No resp distress Assessment & Plan (03/25/2023 4:33 PM EST): Does have ext exp wheeze, no resp distress Cannot take prednisone, but can tolerate decadron, will trial that Assessment & Plan (03/16/2023 2:24 PM EST): Still w wheeze, continue mannie Needs to quit smoking Allergies to steroids Have her add in albuterol inhaler prn Assessment & Plan (01/26/2023 10:50 AM EST): Continue with mannie Will cover with atb as well Fibromyalgia 01/04/2023 Assessment & Plan (07/31/2024 11:22 AM EDT): Continue with Madiha ELIZABETH reviewed Assessment & Plan (01/03/2024 6:46 AM EST): Continue with Madiha ELIZABETH reviewed Assessment & Plan (06/03/2023 6:40 PM EDT): No changes in current medications Abnormal thyroid blood test 03/10/2011 Overview (02/18/2023): 6 months ago, normal from 02/10/2011 Elevated SGOT (AST) 03/10/2011 GERD (gastroesophageal reflux disease) 2 Assessment & Plan (07/31/2024 7:06 AM EDT): Recommendations: freq small meals, nothing to eat or drink at least 2 hours prior to bed, limit caffeine, alcohol, as well as spicy foods Meds to limit or avoid if possible: NSAIDS Elevate HOB if possible Current med: omeprazole Insurance correspondance about mcc use of PPI Pt has been counseled on the risks of mcc use, would like to continue Assessment & Plan (02/10/2024 5:12 PM EST): Recommendations: freq small meals, nothing to eat or drink at least 2 hours prior to bed, limit caffeine, alcohol, as well as spicy foods Meds to limit or avoid if possible: NSAIDS Elevate HOB if possible Current med: omeprazole Insurance correspondance about mcc use of PPI 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, would like to continue Resolved Problems Problem Noted Date Diagnosed Date Resolved Date CAP (community acquired pneumonia) 01/03/2024 01/03/2024 Edema of right lower extremity 03/25/2023 01/03/2024 Assessment & Plan (06/03/2023 6:39 PM EDT): Significant improvement in swelling, however d/t renal functions, we are going to cut back to bumex to MWF Recheck labs in 4 weeks, order given Assessment & Plan (03/25/2023 4:34 PM EST): Will order labs: CBC, Chem 14, and d dimer Check stat US RLE, negative for clot Shortness of breath 03/25/2023 08/01/19 Assessment & Plan (03/25/2023 4:32 PM EST): Chest xray Acute pain of left knee 02/18/202307/2023 Carbon monoxide exposure 02/18/202307/2023 Hearing loss 02/18/2023 01/26/2024 Lower extremity edema 02/18/20232023 Tobacco user 02/18/2023 03/16/2023 Migraines 02/18/2023 03/16/2023 Hyperlipidemia 02/18/2023 03/16/2023 Class 3 severe obesity due t o excess calories without serious comorbidity with body mass index (BMI) of 40.0 to 44.9 in adult 01/26/202305/2023 Other acute sinusitis 01/26/20232023 Open wound of second toe 01/26/2023 Assessment & Plan (01/26/2023 10:50 AM EST): Atb, and epsom salt soaks Fu in 4 weeks Open wound of left foot 01/26/2023 04/0 05/2023 Assessment & Plan (01/26/2023 10:53 AM EST): Soak foot epsom salt Atb Fu in 4 weeks Migraine headache without aura 01/04/2023 05/13/2023 Assessment & Plan (01/26/2023 10:36 AM EST): Stable on current meds no changes needed Essential hypertension 12/12/202103/16 Tattoo 03/10/2011 03/16/2023 Smoking history 03/10/2011 03/16/2023 Fibromyalgia syndrome 03/10/20112023 HTN (hypertension) 03/10/2011 Encounters Date Type Department Care Team Description 09/29/2024 Refill [facility] [address] [place] [phone] Jaymie Phoenix NP Gastro-esophageal reflux disease without esophagitis; Mixed hyperlipidemia ; Fibromyalgia; Localized edema 09/19/2024 Clinisync Result Encounter [facility] Unsolicited Provider, Generic External Data 08/31/2024 1:00 PM EDT Consult [facility] [address] [place] [address] Nat Henderson DO WINSOME (obstructive sleep apnea) (Primary Dx); Cigarette smoker 08/31/2024 Bamboo flowsheet [facility] [address] [place] [address] Nat Henderson DO 08/31/2024 Travel 08/29/2024 Refill [facility] [address] [place] [address] Jaymie Phoenix NP Acute back pain with sciatica, unspecified laterality (Primary Dx) 08/28/2024 Orders Only [facility] [address] [place] [address] Jaymie Phoenix MANAGER ACCOUNT MANAGEMENT Acute back pain with sciatica, unspecified laterality (Primary Dx) 08/28/2024 Telephone [facility] [address] [place] [address] Jaymie Phoenix NP 08/05/2024 Refill [facility] [address] [place] [address] Jaymie Phoenix NP Tobacco dependence 07/31/2024 10:30 AM EDT Office Visit [facility] [address] [place] [address] Jaymie Phoenix NP Encounter for subsequent annual wellness visit (AWV) [...] and sense organs; Screening for lung cancer 07/18/2024 Orders Only [facility] [address] [address] Annette Mitchell MA from Last 3 Months Immunizations Immunization Administration Dates Next Due Kelly SARS-CoV-2 06/14/2020 Tdap 08/29/2023 Social History Tobacco Use Types Packs/Day Years Used Date Smoking Tobacco: Every Day Cigarettes 1 42 Smokeless Tobacco: Never Tobacco Cessation:Ready to Q uit: No; Counseling Given: Yes Comments:11-20 cigarettes/day Alcohol Use Standard Drinks/Week Comments Not Currently [...] week 05/13/2023 How often do you attend hindu or mormonism serv ices? Never 05/13/2023 Do you belong to any clubs o r organizations such as hindu groups, unions, fraternal or athletic groups, or [...] Recorded Patient Health Questionnaire-2 Score 1 07/31/2024 [facility] - Occupational Stress [...] on file Sexual Orientation Not on file Last Filed Vital Signs Vital Sign Reading Time Taken Comments Blood Pressure 110/64 08/31/2024 1:00 PM EDT Pulse 86 08/31/2024 1:00 PM EDT Temperature 36.7 C (98.1 F) 07/31/2024 10:09 AM EDT Respiratory Rate 24 07/31/2024 10:09 AM EDT Oxygen Saturation 94% 08/31/2024 1:00 PM EDT Inhaled Oxygen Concentration - - Weight 111 kg (245 lb) 08/31/2024 1:00 PM EDT Height 165.1 cm (5' 5 ) 02/10/2024 1:31 PM EST Body Mass Index 40.77 02/10/2024 1:31 PM EST Plan of Treatment Upcoming Encounters Date Type Department Care Team (Late st Contact Info) Description 10/31/2024 11:00 AM EDT [facility] Visit [facility] [address] [place] [address] Jaymie Phoenix, MANAGER ACCOUNT MANAGEMENT [address] [place] [phone] 12/07/2024 1:45 PM EDT Office Visit [facility] [address] [place] [address] Nat Henderson, DO [address] [place] [address] 08/02/2025 10:30 AM EDT Office Visit [facility] [address] [place] [phone] Jaymie Phoenix, MANAGER ACCOUNT MANAGEMENT [address] [place] [phone] Health Maintenance Due Date Last Done Comments CT Colonography 1965 FIT 1965 FOBT 1965 Lung Cancer Screening Shared Decision Making 1965 Sigmoidoscopy 1965 Pap Smear 08/16/1984 HPV/Cotest 08/16/1993 Influenza Vaccine (#1) 2024 FIT-DNA 12/26/2024 12/26/2021, 06/09/2017 Mammogram 02/09/2025 02/10/2024 (Sally ent Refused), 03/25/2023 (Patient Refused) Medicare Annual Wellness (AWV) 07/31/2025 0 07/31/2024, 06/03/2023, 06/03/2023 Colonoscopy 02/26/2032 02/25/2022, 02/25/2022 Colorectal Cancer Screening 02/26/2032 Cervical Cancer Screening Discontinued Procedures Procedure Name Priority Date/Time Associated Diagnosis Comments XR LUMBAR SPINE 6V W BENDING 09/19/2024 2:33 PM EDT from Last 3 Months Results * XR LUMBAR SPINE 6V W BENDING (09/19/2024 2:33 PM EDT) Anatomical Region Laterality Modality Other 09/19/2024 2:33 PM EDT Narrative 09/19/2024 2:36 [place] [address] XRay Report Signed Patient: FRANKY SRINIVASAN I MR#: [id number] : 1965 Acct:[id number] Age/Sex: 59 / F ADM Date: 09/19/24 Loc: RAD Attending Dr: Estelle Vazquez NP Ordering Physician: Estelle Vazquez NP Date of Service: 09/19/24 Procedure(s): XR lumbar spine 6V w bending Accession Number(s): [id number] cc: Jaymie Phoenix NP; Estelle Vazquez NP [place] [id number] Patient Name: FRANKY SRINIVASAN MRN: [id number] date: 1965 Sex: F Assigned Patient Location: [facility] Current Patient Location: [facility] Accession/Order Number: [id number] Exam Date: 09/19/2024 14:32 Report Date: 09/19/2024 [...] Jr., D.O. 09/19/2024 2:33 PM Dictation Location: [place] [address] Electronically authenticated by: [id number] Y Date: 09/19/2024 14:33 Dictated By: Joaquin Chatman M.D. 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: Procedure Note Radiology, Radiologist, MD - 09/19/2024 [place] [address] XRay Report Signed Patient: FRANKY SRINIVASAN IMR#: [id number] : 1965Acct:[id number] Age/Sex: 59 / FADM Date: 09/19/24 Loc: RAD Attending Dr: Estelle Vazquez NP Ordering Physician: Estelle Vazquez NP Date of Service: 09/19/24 Procedure(s): XR lumbar spine 6V w bending Accession Number(s): [id number] cc: Jaymie Phoenix MANAGER ACCOUNT MANAGEMENT; Estelle Vazquez NP [facility] [place] [address] Patient Name: FRANKY SRINIVASAN MRN: [id number] date: 1965 Sex: F Assigned Patient Location: [facility] Current Patient Location: [facility] Accession/Order Number: [id number] Exam Date: 09/19/2024 14:32 Report Date: 09/19/2024 14:33 At the request of: ESTELLE VAZQUEZ NP Procedure: XR lumbar spine 6V w bending LUMBAR SPINE - 6 views CLINICAL HISTORY: Lumbar stenosis COMPARISON: None FINDINGS: Vertebral heights appear maintained. Mild diffuse degenerativedisc disease with relative sparing of L4-L5 disc level.. No pathologicalmotion on flexion or extension views. SI joints demonstrate degenerative change. XR/XR lumbar spine 6V w bending IMPRESSION: MILD DIFFUSE DEGENERATIVE DISC DISEASE WITH RELATIVE SPARING OF THE L4-L5DISC LEVEL. Impression dictated by: Joaquin Chatman Jr., D.O. 09/19/2024 2:33 PM Dictation Location: [place] [address] Electronically authenticated by: [id number] Y Date: 4:33 Dictated By: Joaquin Chatman M.D. Signed By:09/19/24 1436 DD/ 32 TD/TT: Cloth Washer Back Tender: Generic External Data Provider [facility] Final Result from Last 3 Months Insurance [employer] MEDICARE ADVANTAGE MEDICARE Care Teams Offset Lithographic Press Setter Relationship Specialty Start Date End Date Rohan Rodríguez MD [address] [place] [address] PCP - General Family Medicine 05/13/23 Jaymie Phoenix NP Nurse Practitioner Family Medicine 01/26/23 Jaymie Phoenix NP Nurse Practitioner Family Medicine 05/13/23
--- OUTSIDE RECORDS SUMMARY | 2024-10-10 10:04 | XMS_ITS | Encounter Summary ---
Author Organization [facility] Address [address] [place] [address] Care Team Providers Care Grocery Buyer Name Role Phone Jaymie Phoenix CLERICAL ASSOCIATE Unavailable [phone] Rohan Rodríguez MD Primary Care Provider [phone] Jaymie Phoenix CLERICAL ASSOCIATE Unavailable [phone] Reason for Visit * Reason Comments Med Refill Encounter Details Date Type Department Care Team (Late st Contact Info) Description 12/25/2023 Refill [facility] [address] [place] [address] Jaymie Phoenix CLERICAL ASSOCIATE [address] [place] [phone] Personal history of other diseases of the nervous system and sense organs Social History Tobacco Use Types Packs/Day Years [...] week 05/13/2023 How often do you attend hinduism or scientologist serv ices? Never 05/13/2023 Do you belong to any clubs o r organizations such as hinduism groups, unions, fraternal or athletic groups, or [...] Recorded Patient Health Questionnaire-2 Score 0 06/03/2023 [facility] - [...] place to sleep or slept in a skilled nursing (including now)? No 05/13/2023 Comments Unknown Sex and Gender Information Value Date Recorded Sex Assigned at Not on file Legal Sex Female 7:27 PM EDT Gender Identity Not on file Sexual Orientation Not on file documented as of this encounter Miscellaneous Notes * Telephone Encounter - Jaymie Phoenix NP - 12/25/2023 7:16 PM EST Please contact pt, she was last seen 06/01, I would like to see her every 6 months, so please schedule an appt [place] documented in this encounter Plan of Treatment Upcoming Encounters Date Type Department Care Team (Late st Contact Info) Description 10/31/2024 11:00 AM EDT Office Visit [facility] [address] [place] [address] Jaymie Phoenix NP [address] [place] [address] 12/07/2024 1:45 PM EDT Office Visit [facility] [address] [place] [address] Nat Henderson DO [address] [place] [address] 08/02/2025 10:30 AM EDT Office Visit [facility] [address] [place] [address] Jaymie Phoenix NP [address] [place] [address] documented as of this encounter Visit Diagnoses Diagnosis Personal history of other diseases of the nervous system and sense organs documented in this encounter Additional Health Concerns Assessment Noted Time PHQ-9 Depression Total Score: 2 06/03/19 24 2:55 PM EDT documented as of this encounter Care Teams Grocery Buyer Relationship Specialty Start Date End Date Rohan Rodríguez MD [address] [place] [phone] PCP - General Family Medicine 05/13/23 Jaymie Phoenix NP Nurse Practitioner Family Medicine 01/26/23 Jaymie Phoenix NP Nurse Practitioner Family Medicine 05/13/23 documented as of this encounter
--- OUTSIDE RECORDS SUMMARY | 2024-10-10 10:04 | XMS_ITS | Clinical Summary ---
Author Organization [facility] Address [address] [place] [address] Care Team Providers Care Top Precipitator Operator Helper Name Role Phone Jaymie Phoenix Linda HARPER Primary Care Provider [phone] Allergies Active Allergy Reactions Criticality Noted Date Comments Penicillins Swelling 03/10/2011 Medications pregabalin (LYRICA) 150 mg ORAL capsule Take 1 capsule by mouth twice daily. 0 03/10/2011 Active duloxetine (CYMBALTA) 30 mg ORAL capsule Take 1 capsule by mouth twice daily. 0 03/10/2011 Active traZODONE 150 mg ORAL tablet Take 1 tablet by mouth daily at bedtime. 0 03/10/2011 Active meclizine 12.5 mg tab Take 12.5 mg by mouth three times daily. Active propranolol 60 mg tablet Take 60 mg by mouth once daily. Active Active Problems Problem Noted Date Diagnosed Date HTN (hypertension) 03/10/2011 GERD (gastroesophageal reflux disease) 2 Tattoo 03/10/2011 Elevated SGOT (AST) 03/10/2011 Fibromyalgia syndrome 03/10/2011 Abnormal thyroid blood test, past history 2011 Overview (03/10/2011): 6 months ago, normal from 02/10/2011 Smoking history 03/10/2011 Social History Tobacco Use Types Packs/Day Years Used Date Smoking Tobacco: Never Smokeless Tobacco: Never Alcohol Use Standard Drinks/Week Comments Not Asked 0 (1 standard drink = 0.6 oz pur e alcohol) Comments Unknown Sex and Gender Information Value Date Recorded Sex Assigned at Not on file Legal Sex Female 10:13 AM EST Gender Identity Not on file Sexual Orientation Not on file Last Filed Vital Signs Vital Sign Reading Time Taken Comments Blood Pressure 126/85 06/08/2013 1:02 PM EDT Pulse 79 06/08/2013 1:02 PM EDT Temperature - - Respiratory Rate 20 06/08/2013 1:02 PM EDT Oxygen Saturation 95% 06/08/2013 1:02 PM EDT Inhaled Oxygen Concentration - - Weight 84.8 kg (187 lb) 06/08/2013 1:02 PM EDT Height 167.6 cm (5' 6 ) 06/08/2013 1:02 PM EDT Body Mass Index 30.18 06/08/2013 1:02 PM EDT Plan of Treatment Health Maintenance Due Date Last Done Comments Anxiety Screening 08/16/1981 Depression Screening 08/16/1981 HIV Screening 08/16/1981 DTaP,Tdap,Td Vaccine (1 - Tdap) 08/16/1982 Cervical Cancer Screening 08/16/[address] Colonography 08/16/2008 Cologuard (FIT-DNA) 08/16/2008 Colonoscopy 08/16/2008 Colorectal Cancer Screening 08/16/2008 Diabetes Screening 08/16/2008 Fecal Occult Blood 08/16/2008 Lipid Screening 08/16/2008 Sigmoidoscopy 08/16/2008 Pneumococcal Vaccine: 50+ (1 of 1 - PCV) 08/16/2013 Shingrix Vaccine (1 of 2) 08/16/2013 Influenza Vaccine (#1) 2024 RSV Vaccine (1 - 1-dose 75+ series) 08/16/2038 Hepatitis C Screening Completed 03/10/2011 Procedures Procedure Name Priority Date/Time Associated Diagnosis Comments HEP REMOTE PANEL BL Routine 03/10/2011 1 1:21 AM EST Elevated SGOT (AST) Tattoo Fatigue from Last 3 Months or Most Recently Relevant to Health Maintenance Results * (ABNORMAL) HEP REMOTE PANEL BL (03/10/2011 11:21 AM EST) Hep B Core Ab, Total Positive(A) NEGAT [facility] Hep C Antibody IA Negative NEGAT [facility] HBsAg Negative NEGAT [facility] Hep B Surface Ab, Qual Negative NEGAT [facility] Comment: A negative Hepatitis B Surface Antibody is indicative of: 1)no prior exposure to HBV, 2)lack of antibody response to an acute or chronic HBV infection, 3)lack of antibody response to HBV vaccination, or, 4)loss of immunity that followed either vaccination or infection. Blood specimen (specimen) BLOOD SPECIMEN / Unknown 03/10/2011 11:21 AM EST 03/10/2011 11:27 AM EST us James Singer MD LABORATORY Final Resul t [facility] [address] [place] [address] from Last 3 Months or Most Recently Relevant to Health Maintenance Insurance [facility] MEDICAID Care Teams Top Precipitator Operator Helper Relationship Specialty Start Date End Date Jaymie Phoenix, MOBILE UI DEVELOPER [address] [place] [address] PCP - General Family Medicine 04/10/13
--- OUTSIDE RECORDS SUMMARY | 2024-10-10 10:04 | XMS_ITS | Encounter Summary ---
Author Organization [facility] Address [address] [place] [address] Care Team Providers Care Family Services Manager Name Role Phone Jaymie Phoenix PRECISION JIG GRINDER Unavailable [phone] Rohan Rodríguez MD Primary Care Provider [phone] Jaymie Phoenix PRECISION JIG GRINDER Unavailable [phone] Encounter Details Date Type Department Care Team (Late st Contact Info) Description 12/27/2023 Orders Only [facility] [address] [place] [address] Tyler Umaña MD [address] [place], [place] [id number] Social History Tobacco Use Types Packs/Day Years [...] week 05/13/2023 How often do you attend mu-ism or scientology serv ices? Never 05/13/2023 Do you belong to any clubs o r organizations such as mu-ism groups, unions, fraternal or athletic groups, or [...] Recorded Patient Health Questionnaire-2 Score 0 06/03/2023 [facility] Health - Occupational Stress [...] place to sleep or slept in a senior living (including now)? No 05/13/2023 Comments Unknown Sex and Gender Information Value Date Recorded Sex Assigned at Not on file Legal Sex Female 7:27 PM EDT Gender Identity Not on file Sexual Orientation Not on file documented as of this encounter Plan of Treatment Upcoming Encounters Date Type Department Care Team (Late st Contact Info) Description 10/31/2024 11:00 AM EDT Office Visit [facility] [address] [place] [address] Jaymie Phoenix NP [address] [place] [address] 12/07/2024 1:45 PM EDT Office Visit [facility] [address] [place] [phone] Nat Henderson DO [address] [place] [address] 08/02/2025 10:30 AM EDT Office Visit [facility] [address] [place] [phone] Jaymie Phoenix NP [address] [place] [address] documented as of this encounter Procedures Procedure Name Priority Date/Time Associated Diagnosis Comments SCANNED LABS Routine 12/27/2023 2:56 PM EST ECG 12-LEAD Routine 12/27/2023 2:47 PM EST SCANNED LABS Routine 12/27/2023 10:01 AM EST XR CHEST 1 VIEW Routine 12/27/2023 9:32 AM EST documented in this encounter Results * SCANNED LABS (12/27/2023 2:56 PM EST) Jaymie Phoenix PRECISION JIG GRINDER LAB CHG PERFORMABLES Final Resu lt * ECG 12 lead (12/27/2023 2:47 PM EST) Tyler Umaña MD ECG ORDERABLES Final Result * SCANNED LABS (12/27/2023 10:01 AM EST) [facility] LAB CHG PERFORMABLES Final Res ult * XR chest 1 view (12/27/2023 9:32 AM EST) Anatomical Region Laterality Modality Chest Radiographic Latosha ging Tyler Umaña MD IMG XR PROCEDURES Final Resul t documented in this encounter Visit Diagnoses Not on filedocumented in this encounter Additional Health Concerns Assessment Noted Time PHQ-9 Depression Total Score: 2 06/03/19 24 2:55 PM EDT documented as of this encounter Care Teams Family Services Manager Relationship Specialty Start Date End Date Rohan Rodríguez MD [address] [place] [address] PCP - General Family Medicine 05/13/23 Jaymie Phoenix NP Nurse Practitioner Family Medicine 01/26/23 Jaymie Phoenix NP Nurse Practitioner Family Medicine 05/13/23 documented as of this encounter
--- OUTSIDE RECORDS SUMMARY | 2024-10-10 10:04 | XMS_ITS | Encounter Summary ---
Author Organization [facility] Address [address] [place] [address] Care Team Providers Care Personnel Arbitrator Name Role Phone Jaymie Phoenix REFLECTOR DRILLER AND DEBURRER Unavailable [phone] Shaikh PERRY Marquez Primary Care Provider [phone] Rohan Rodríguez MD Primary Care Provider [phone] Rohan Rodríguez MD Primary Care Provider [phone] Jaymie Phoenix REFLECTOR DRILLER AND DEBURRER Unavailable [phone] Encounter Details Date Type Department Care Team (Late st Contact Info) Description 01/26/[address] [facility] [address] [place] [address] Jaymie Phoenix, REFLECTOR DRILLER AND DEBURRER [address] [place] [address] Social History Tobacco Use Types Packs/Day Years Used Date Smoking Tobacco: Every Day Cigarettes 1 42 Smokeless Tobacco: Never Tobacco Cessation:Ready to Q uit: Not Asked; Counseling Given: Not Answered Comments:11-20 cigarettes/day Alcohol Use Standard Drinks/Week Comments Not Currently 0 (1 standard drink = 0.6 oz pur e alcohol) socially Comments Unknown Sex and Gender Information Value Date Recorded Sex Assigned at Not on file Legal Sex Female 7:27 PM EDT Gender Identity Not on file Sexual Orientation Not on file documented as of this encounter Plan of Treatment Upcoming Encounters Date Type Department Care Team (Late st Contact Info) Description 10/31/2024 11:00 AM EDT [facility] Visit [facility] [address] [place] [address] Jaymie Phoenix, REFLECTOR DRILLER AND DEBURRER [address] [place] [address] 12/07/2024 1:45 PM EDT Office Visit [facility] [address] [place] [address] Nat Henderson, DO [address] [address] 08/02/2025 10:30 AM EDT Office Visit [facility] [address] [place] [address] Jaymie Phoenix, NILE [address] [place] [address] documented as of this encounter Visit Diagnoses Not on filedocumented in this encounter Care Teams Personnel Arbitrator Relationship Specialty Start Date End Date Shaikh Marquez MD [address] [place] [address] PCP - General Internal Medicine 03/25/23 05/02/23 Rohan Rodríguez MD [address] [place] [address] PCP - General Family Medicine 05/03/23 05/03/23 Rohan Rodríguez MD [address] [place] [address] PCP - General Family Medicine 05/13/23 Jaymie Phoenix NP Nurse Practitioner Family Medicine 01/26/23 Jaymie hPoenix NP Nurse Practitioner Family Medicine 05/13/23 documented as of this encounter
--- OUTSIDE RECORDS SUMMARY | 2024-10-10 10:07 | XMS_ITS | CCD ---
Author Organization [facility] Care Team Providers Care Potato Bucker Name Role Phone JAYMIE PHOENIX Primary Care Physician Bryson SAMPSON Attending Unavailable JAYMIE PHOENIX J Referring Unavailabl e NILL, Bryson Hernandez Attending Unavailable Aichholz, Tracy L Referring Unavailable NILL, Bryson Hernandez Attending Unavailable NILL, Bryson Hernandez Attending Unavailable NILL, Bryson Hernandez Attending Unavailable AICHHOLZ, SHADE CLOTH FINISHER JAYMIE Primary Care Unavailable ALLAN ., DR JIM Mcdonnell Attending Unavailable ALLAN ., DR JIM Mcdonnell Admitting Unavailable ALLAN ., DR JIM Mcdonnell Consulting Unavailable ROBINSON ., GLENROY Admitting Unavailable ROBINSON ., GLENROY Attending Unavailable SJ SOLER Consulting Unavailable AICHHOLZ, SHADE CLOTH FINISHER JAYMIE Primary Care Unavailable MENDEZ ., MR DEMETRIUS Admitting Unavailable MENDEZ ., MR DEMETRIUS Attending Unavailable AICHHOLZ, SHADE CLOTH FINISHER JAYMIE Primary Care Unavailable AICHHOLZ, SHADE CLOTH FINISHER JAYMIE Admitting Unavailable JUANITA, DR NADINE Caldwell Consulting Unavailable AICHHOLZ, SHADE CLOTH FINISHER JAYMIE Primary Care Unavailable AICHHOLZ, SHADE CLOTH FINISHER JAYMIE Attending Unavailable AICHHOLZ, SHADE CLOTH FINISHER JAYMIE Consulting Unavailable AICHHOLZ, SHADE CLOTH FINISHER JAYMIE Admitting Unavailable JUANITA, DR NADINE Caldwell Consulting Unavailable AICHHOLZ, SHADE CLOTH FINISHER JAYMIE Primary Care Unavailable AICHHOLZ, SHADE CLOTH FINISHER JAYMIE Attending Unavailable AICHHOLZ, SHADE CLOTH FINISHER JAYMIE Consulting Unavailable AICHHOLZ, SHADE CLOTH FINISHER JAYMIE Primary Care Unavailable NILL ., DR MASSEY Admitting Unavailable NILL ., DR MASSEY Attending Unavailable NILL ., DR MASSEY Consulting Unavailable SONDRA FELICIANO Consulting Unavailable ROBINSON ., GLENROY Admitting Unavailable ROBINSON ., GLENROY Attending Unavailable ROBINSON ., GLENROY Consulting Unavailable AICHHOLZ, SHADE CLOTH FINISHER JAYMIE Primary Care Unavailable ALLAN ., DR JIM Mcdonnell Attending Unavailable ALLAN ., DR JIM Mcdonnell Consulting Unavailable ALLAN ., DR JIM Mcdonnell Admitting Unavailable AICHHOLZ, SHADE CLOTH FINISHER JAYMIE Primary Care Unavailable MARIA FERNANDA SOSA Consulting Unavailable ALLAN ., DR JIM Mcdonnell Attending Unavailable ALLAN ., DR JIM Mcdonnell Consulting Unavailable ALLAN ., DR JIM Mcdonnell Admitting Unavailable AICHHOLZ, SHADE CLOTH FINISHER JAYMIE Primary Care Unavailable ALLAN ., DR JIM Mcdonnell Admitting Unavailable ALLAN ., DR JIM Mcdonnell Attending Unavailable ALLAN ., DR JIM Mcdonnell Consulting Unavailable AICHHOLZ, SHADE CLOTH FINISHER JAYMIE Primary Care Unavailable ALLAN ., DR JIM Mcdonnell Admitting Unavailable ALLAN ., DR JIM Mcdonnell Attending Unavailable AICHHOLZ, SHADE CLOTH FINISHER JAYMIE Primary Care Unavailable THORNE ., JENNY Consulting Unavailable ALLAN ., DR JIM Mcdonnell Admitting Unavailable ALLAN ., DR JIM Mcdonnell Attending Unavailable ALLAN ., DR JIM Mcdonnell Consulting Unavailable AICHHOLZ, SHADE CLOTH FINISHER JAYMIE Primary Care Unavailable ALLAN ., DR JIM Mcdonnell Admitting Unavailable ALLAN ., DR JIM Mcdonnell Attending Unavailable ALLAN ., DR JIM Mcdonnell Consulting Unavailable AICHHOLZ, SHADE CLOTH FINISHER JAYMIE Primary Care Unavailable THORNE ., JENNY Consulting Unavailable ALLAN ., DR JIM Mcdonnell Admitting Unavailable ALLAN ., DR JIM Mcdonnell Attending Unavailable AICHHOLZ, SHADE CLOTH FINISHER JAYMIE Primary Care Unavailable ALLAN ., DR JIM Mcdonnell Attending Unavailable ALLAN ., DR JIM Mcdonnell Consulting Unavailable ALLAN ., DR JIM Mcdonnell Admitting Unavailable AICHHOLZ, SHADE CLOTH FINISHER JAYMIE Primary Care Unavailable LAKSHMIPATHY ., NARENDRANEDWAR Consulting Evelyn vailable NILL ., DR MASSEY Consulting Unavailable NILL ., DR MASSEY Admitting Unavailable AICHHOLZ, SHADE CLOTH FINISHER JAYMIE Primary Care Unavailable NILL ., DR MASSEY Attending Unavailable AICHHOLZ, SHADE CLOTH FINISHER JAYMIE Admitting Unavailable AICHHOLZ, SHADE CLOTH FINISHER JAYMIE Attending Unavailable AICHHOLZ, SHADE CLOTH FINISHER JAYMIE Consulting Unavailable AICHHOLZ, SHADE CLOTH FINISHER JAYMIE Primary Care Unavailable DR MELISSA ROSENBERG Consulting Unavailable AICHHOLZ, SHADE CLOTH FINISHER JAYMIE Admitting Unavailable AICHHOLZ, SHADE CLOTH FINISHER JAYMIE Attending Unavailable AICHHOLZ, SHADE CLOTH FINISHER JAYMIE Consulting Unavailable AICHHOLZ, SHADE CLOTH FINISHER JAYMIE Primary Care Unavailable LORI FROST Consulting Unavailable ALLAN ., DR JIM Mcdonnell Attending Unavailable ALLAN ., DR JIM Mcdonnell Admitting Unavailable AICHHOLZ, SHADE CLOTH FINISHER JAYMIE Primary Care Unavailable AICHHOLZ, SHADE CLOTH FINISHER JAYMIE Primary Care Unavailable SAMSA ., MAGDALENA Admitting Unavailable SAMSA ., MAGDALENA Attending Unavailable SAMSA ., MAGDALENA Consulting Unavailable ALLAN ., DR JIM Mcdonnell Attending Unavailable JERRELL ., DR JIM Mcdonnell Admitting Unavailable JERRELL ., DR JIM Mcdonnell Consulting Unavailable AICHARI, MEREDITH JAYMIE Primary Care Unavailable AICHHOLHomer, SHADE CLOTH FINISHER JAYMIE Admitting Unavailable AICHHOLZ, SHADE CLOTH FINISHER JAYMIE Attending Unavailable AICHHOLZ, SHADE CLOTH FINISHER JAYMIE Consulting Unavailable AICHHOLZ, SHADE CLOTH FINISHER JAYMIE Primary Care Unavailable Aichholz MOBILE ELECTRONICS INSTALLER, Jaymie Unavailable Alma AMADOR, Primary Care Provider Aicholhomer MOBILE ELECTRONICS INSTALLER, Jaymie Unavailable Rohan Rodríguez MD Primary Care Provider [phone] Aicholhomer MOBILE ELECTRONICS INSTALLER, Jaymie Unavailable Alphonse Damian Attending Unavailab Alphonse [...] Hives, Shortness of breath, Swelling [facility] [place] (2 sources) predniSONE; Translations: [prednisone] Drug Allergy Dyspnea (finding) [facility] [place] (1 source) prednisoLONE Drug Allergy [facility] (20 sources) Prednisone Propensity to adverse reactions 3 Itching [facility] Medications Current Medications Medication Drug Class(es) Dates Sig (Normalized) Sig (Original) acetaminophen 325 mg / HYDROcodone bitartrate 5 mg oral tablet (3 sources) Opioid Agonist Start: 08-29-2024 End: 09-08-2024 take 1 tablet by mouth once HYDROcodone-acetam inophen ([place]) 5-325 MG tablet Indications: Acute back pain with sciatica, unspecified laterality Take 1 tablet by mouth every 12 (twelve) hours if needed for severe pain for up to 10 days 20 tablet 08/29/2024 09/08/2024 Active [id number] 200 actuat albuterol 0.09 mg/actuat metered dose [...] take 2 puff(s) by inhalation at bedtime Xnihujp-Wqeivvfryzf-Lybynydqcg (Breztri Aerosphere) 160-9-4.8 MCG/ACT aerosol Indications: COPD [...] 01-26-2023 Episodic Other aftercare (1 source) 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; Translations: [OTH [facility] CURRENT DRUG THERAPY] Onset: 3 Episodic Other [...] SPINE 6V W BENDING on 09-19-2024 [place] [address] XRay Report Signed Patient: FRANKY SRINIVASAN I MR#: [id number] : 1965 Acct:[id number] Age/Sex: 59 / F ADM Date: 09/19/24 Loc: RAD Attending Dr: Estelle Vazquez NP Ordering Physician: Estelle Vazquez NP Date of Service: 09/19/24 Procedure(s): XR lumbar spine 6V w bending Accession Number(s): [id number] cc: Jaymie Phoenix NP; Estelle Vazquez NP [place] [address] Patient Name: FRANKY SRINIVASAN MRN: [facility]:[id number] date: 1965 Sex: F Assigned Patient Location: [facility] Current Patient Location: [facility] Accession/Order Number: [id number] Exam Date: 09/19/2024 14:32 Report Date: 09/19/2024 [...] Jr., D.O. 09/19/2024 2:33 PM Dictation Location: [place] [address] Electronically authenticated by: [id number] Y Date: 09/19/2024 14:33 Dictated By: Joaquin Chatman M.D. Signed By: 09/19/24 1436 DD/ 32 TD/TT: Sales Representative Consultant: [facility] Radiology, Radiologist, - 09/19/2024 [place] [address] XRay Report Signed Patient: FRANKY SRINIVASAN I MR#: [id number] : 1965 Acct:[id number] Age/Sex: 59 / F ADM Date: 09/19/24 Loc: RAD Attending Dr: Estelle Vazquez NP Ordering Physician: Estelle Vazquez NP Date of Service: 09/19/24 Procedure(s): XR lumbar spine 6V w bending Accession Number(s): [id number] cc: Jaymie Phoenix MOBILE ELECTRONICS INSTALLER; Estelle Vazquez NP [place] [address] Patient Name: FRANKY SRINIVASAN MRN: [id number] date: 1965 Sex: F Assigned Patient Location: [facility] Current Patient Location: [facility] Accession/Order Number: [id number] Exam Date: 09/19/2024 14:32 Report Date: 09/19/2024 [...] Jr., D.O. 09/19/2024 2:33 PM Dictation Location: [place] [address] Electronically authenticated by: [id number] Y Date: 09/19/2024 14:33 Dictated By: Joaquin Chatman M.D. Signed By: 09/19/241435 DD/ 32 TD/TT: Sales Representative Consultant: [facility] Radiology Study observation (narrative) [facility] XR LUMBAR SPINE 6V W BENDING Ordered By: Radiologist Radiology on 09-19-2024 [facility] Work Phone: [facility] MICROALB CREAT RATIO RAN BRAULIOon 01-27-2024 CREATININE URINE RANDOM 235.95 mg/dL 20.00 - 300.00 mg/dL [facility] MICROALBUMIN URINE RANDOM <1.3 NINF - 30.0 mg/dL [facility] ALL BASIC METABOLIC PANELon 01-24-2024 Anion gap [Moles/Vol] 11.6 mmol/L [facility] Calcium [Mass/Vol] 8.9 mg/dL 8.5 - 10. 1 mg/dL [facility] Chloride [Moles/Vol] 103 mmol/L 98 - 10 7 mmol/L [facility] CO2 [Moles/Vol] 31.6 mmol/L 21.0 - 32.0 mmol/L [facility] Creatinine [Mass/Vol] 1.17 mg/dL High 0.55 - 1.02 mg/dL [facility] GFR/1.73 sq M.predicted CKD-EPI (S/P/Bld) [Vol rate/Area] 57 Low >=60 mL/min/1.73m 2 [facility] Glucose [Mass/Vol] 118 mg/dL High 74 - 106 mg/dL [facility] Potassium [Moles/Vol] 4.2 mmol/L 3.5 - 5.1 mmol/L [facility] Sodium [Moles/Vol] 142 mmol/L 136 - 145 mmol/L [facility] TBH EGFR-NON AF CONGOLESE 47 Low >=60 mL/min/1.73m 2 [facility] Urea nitrogen [Mass/Vol] 12 mg/dL 7.0 - 18.0 mg/dL [facility] Urea nitrogen/Creatinine [Mass ratio] 10.3 mg/mg [facility] ALL LIPID PROFILE (FASTING)o n 01-24-2024 CHOL HDL RATIO 2.9 [facility] Comment on above: 3.3 - 4.4 LOW RISK 4.4 - 7.1 AVERAGE RISK 7.1 - 11.0 MODERATE RISK >11.0 HIGH RISK Cholesterol [Mass/Vol] 152 mg/dL NINF - 200 mg/dL [facility] Cholesterol in HDL [Mass/Vol] 52 mg/dL 40 - 60 mg/dL [facility] Comment on above: > or =60 mg/dl - LOW CARDIOVASCULAR RISK <40 mg/dl - HIGH CARDIOVASCULAR RISK Magnesium [Mass/Vol] 70 mg/dL [facility] Comment on above: <100 mg/dl OPTIMAL 100-129 mg/dl NEAR OR ABOVE OPTIMAL 130-159 mg/dl BORDERLINE HIGH 160-189 mg/dl HIGH >190 mg/dl VERY HIGH Magnesium [Mass/Vol] 30.8 mg/dL [facility] Triglyceride [Mass/Vol] 154 mg/dL High NINF - 150 mg/dL [facility] No Panel Informationon 01-23 Interpretation and review of laboratory results Abnormal [facility] BLOOD GASES BTYon 07-08-2022 02 MODE ROOM AIR Normal [facility] Comment on above: Performed By: #### A BG ####[facility] [address] [place] [address]Dr. Phani El ALLENS TEST Positive Normal [facility] Comment on above: Performed By: #### A BG ####[facility] [address] [place], [place] [address]Dr. Phani El Base excess Calc (Bld) [Moles/Vol] 1.4 mmol/L Normal -2.0-2.0 [facility] Comment on above: Performed By: #### A BG ####[facility] [address] [place], [place] [address]Dr. Phani El BIPAP PRESSURE Normal [facility] Comment on above: Performed By: #### A BG ####[facility] [address] [place], [place] [address]Dr. Phani El CPAP Normal [facility] Comment on above: Performed By: #### A BG ####[facility] [address] [place], [place] [address]Dr. Phani El FIO2 Normal [facility] Comment on above: Performed By: #### A BG ####[facility] [address] [place], [place] [address]Dr. Phani El HCO3 (Bld) [Moles/Vol] 26.2 mmol/L Critically high 22.0-26.0 [facility] Comment on above: Performed By: #### A BG ####[facility] [address] [place], [place] [address]Dr. Phani El LPM Normal [facility] Comment on above: Performed By: #### A BG ####[facility] [address] [place] [address]Dr. Phani El MINUTE VOLUME Normal [facility] Comment on above: Performed By: #### A BG ####[facility] [address] [place] [address]Dr. Phani El Oxygen (Bld) [Partial pressure] 56.1 mm[Hg] Critically low 80.0-100.0 [facility] Comment on above: Performed By: #### A BG ####[facility] [address] [place], [place] [address]Dr. Phani El Oxygen saturation in Blood 92.0 % Critically low 95.0-100.0 [facility] Comment on above: Performed By: #### A BG ####[facility] [address] [place], [place] [address]Dr. Phani El PCO2 42.6 mmHg Normal 35.0-45.0 [facility] Comment on above: Performed By: #### A BG ####[facility] [address] [place], [place] [address]Dr. Phani El PEEP [facility] Comment on above: Performed By: #### A BG ####[facility] [address] [place], [place] [address]Dr. Phani El pH (Bld) 7.398 [pH] Normal 7.350-7.450 [facility] Comment on above: Performed By: #### A BG ####[facility] [address] [place], [place] [address]Dr. Phani El PIP [facility] Comment on above: Performed By: #### A BG ####[facility] [address] [place], [place] [address]Dr. Phani El PS Normal [facility] Comment on above: Performed By: #### A BG ####[facility] [address] [place], [place] [address]Dr. Phani El PUNCTURE SITE RR Normal [facility] Comment on above: Performed By: #### A BG ####[facility] [address] [place], [place] [address]Ue. Phani El RATE Normal [facility] Comment on above: Performed By: #### A BG ####[facility] [address] [place], [place] [address]Mo. Phani El VENT MODE Normal [facility] Comment on above: Performed By: #### A BG ####[facility] [address] [place], [place] [address]Ix. Phani El VT Normal [facility] Comment on above: Performed By: #### A BG ####[facility] [address] [place], [place] [address]Id. Phani El ECHOCARDIO M/2D COMPLETEon 0 07-08-2022 ECHOCARDIO M/2D COMPLETE Patient: FRANKY SRINIVASAN I. Exam Date: 07/08/2022 : 1965 Gender:F Ordering : DR. MAGDALENA DOWNING . Admission #: [id number] Family : MEREDITH [facility] Order #: [id number] CLICK HERE TO VIEW EXAM ECHOCARDIOGRAM REPORT [...] Garcia M.D. on 07/08/2022 at 18:14 Normal [facility] CT LUNG CANCER SCREENINGon 0 05-29-2022 [...] by: MELISSA ROSENBERG Date: 2022-05-29 09:36 Normal [facility] CBC AUTO DIFFon 05-05-2022 BASO # 0.1 103/ul Normal 0.0-0.1 [facility] Comment on above: Performed By: #### C BC #### [facility] [address] [place] [address] Dr. Phani El Basophils/100 WBC (Bld) 0.8 % Normal 0.2-2.0 [facility] Comment on above: Performed By: #### C BC #### [facility] [address] [place] [address] Dr. Phani El EO # 0.1 103/ul Normal 0.0-0.7 [facility] Comment on above: Performed By: #### C BC #### [facility] [address] [place] [address] Dr. Phani El Eosinophils/100 WBC (Bld) 2.0 % Normal 0.9-7.0 [facility] Comment on above: Performed By: #### C BC #### [facility] [address] [place] [address] Dr. Phani El Erythrocyte distribution width (RBC) [Ratio] 14.0 % Normal 11.0-15.0 [facility] Comment on above: Performed By: #### C BC #### [facility] [address] [place] [address] Dr. Phani El Hematocrit (Bld) [Volume fraction] 48.7 % Critically high 36.0-48.0 [facility] Comment on above: Performed By: #### C BC #### [facility] [address] [place] [address] Dr. Phani El Hemoglobin (Bld) [Mass/Vol] 15.9 g/dL Normal 12.0-16.0 [facility] Comment on above: Performed By: #### C BC #### [facility] [address] [place] [address] Dr. Phani El IG # 0.05 10e3/ul Critically high 0.00-0.03 [facility] Comment on above: Performed By: #### C BC #### [facility] [address] [place] [address] Dr. Phani El IG % 0.8 % Critically high 0.0-0.5 [facility] Comment on above: Performed By: #### C BC #### [facility] [address] [place] [address] Dr. Phani El LYMPH # 1.9 103/ul Normal 1.2-3.8 [facility] Comment on above: Performed By: #### C BC #### [facility] [address] [place] [address] Dr. Phani El Lymphocytes/100 WBC (Bld) 30.1 % Normal 20.5-60.0 [facility] Comment on above: Performed By: #### C BC #### [facility] [address] [place] [address] Dr. Phani El MANUAL DIFF REQ NO Normal [facility] Comment on above: Performed By: #### C BC #### [facility] [address] [place] [address] Dr. Phani El MCH (RBC) [Entitic mass] 32.9 pg Normal 26.7-34.0 [facility] Comment on above: Performed By: #### C BC #### [facility] [address] [place] [address] Dr. Phani El MCHC (RBC) [Mass/Vol] 32.6 g/dL Normal 29.9-35.2 [facility] Comment on above: Performed By: #### C BC #### [facility] [address] [place] [address] Dr. Phani El MCV (RBC) [Entitic vol] 100.8 fL Critically high 81.0-99.0 [facility] Comment on above: Performed By: #### C BC #### [facility] [address] [place] [address] Dr. Phani El MONO # 0.5 103/ul Normal 0.3-0.8 [facility] Comment on above: Performed By: #### C BC #### [facility] [address] [place] [address] Dr. Phani El Monocytes/100 WBC (Bld) 7.2 % Normal 1.7-12.0 [facility] Comment on above: Performed By: #### C BC #### [facility] [address] [place] [address] [address] Phani El NEUT # 3.8 103/ul Normal 1.4-6.5 [facility] Comment on above: Performed By: #### C BC #### [facility] [address] [place] [address] [address] Phani El Neutrophils/100 WBC (Bld) 59.1 % Normal 43.0-75.0 [facility] Comment on above: Performed By: #### C BC #### [facility] [address] [place] [address] [address] Phani El Platelet mean volume (Bld) [Entitic vol] 11.0 fL Normal 9.5-13.5 [facility] Comment on above: Performed By: #### C BC #### [facility] [address] [place] [address] Dr. Phani El PLT 167 103/ul Normal 150-450 [facility] Comment on above: Performed By: #### C BC #### [facility] [address] [place] [address] [address] Phani El RBC 4.83 106/ul Normal 4.20-5.40 [facility] Comment on above: Performed By: #### C BC #### [facility] [address] [place] [address] [address] Phani El WBC 6.4 103/ul Normal 4.0-11.0 [facility] Comment on above: Performed By: #### C BC #### [facility] [address] [place] [address] [address] Phani El GLYCOHEMOGLOBIN A1Con 2022 ADA RECOMMENDATION SEE BELOW Normal [facility] Comment on above: Result Comment: ADA RECOMMENDED LIMIT 4.0 - 6.0 ADA THERAPEUTIC TARGET < 7.0 ACTION SUGGESTED > 7.0 Performed By: #### A 1C ####[facility] [address] [place] [address]Dr. Phani El Glucose [Mass/Vol] 114 mg/dL Normal [facility] Comment on above: Performed By: #### A 1C ####[facility] [address] [place] [address]Dr. Phani El HbA1c (Bld) [Mass fraction] 5.6 % Normal 4.5-6.2 [facility] Comment on above: Performed By: #### A 1C ####[facility] [address] [place] [address]Dr. Phani El LIPID PROFILEon 05-05-2022 CHOL-HDL RATIO NORM SEE BELOW Normal [facility] Comment on above: Result Comment: 3.3 - 4.4 LOW RISK 4.4 - 7.1 AVERAGE RISK 7.1 - 11.0 MODERATE RISK >11.0 HIGH RISK Performed By: #### C MP, LIPID #### [facility] [address] [place] [address] [address] Phani El Cholesterol [Mass/Vol] 178 mg/dL Normal <=200 [facility] Comment on above: Performed By: #### C MP, LIPID #### [facility] [address] [place] [address] [address] Phani El Cholesterol in HDL [Mass/Vol] 54 mg/dL Normal 40-60 [facility] Comment on above: Performed By: #### C MP, LIPID #### [facility] [address] [place] [address] [address] Phani El Cholesterol in LDL [Mass/Vol] 86.6 mg/dL Normal [facility] Comment on above: Performed By: #### C MP, LIPID #### [facility] [address] [place] [address] [address] Phani El Cholesterol.total/Ch olesterol in HDL [Mass ratio] 3.3 {ratio} Normal [facility] Comment on above: Performed By: #### C MP, LIPID #### [facility] [address] [place] [address] [address] Phani El HDL NORMAL > or = 60 mg/dl - LO W CARDIOVASCULAR RISK <40 mg/dl - HIGH CARDIOVASCULAR RISK Normal [facility] Comment on above: Performed By: #### C MP, LIPID #### [facility] [address] [place] [address] [address] Phani El LDL CALC NORMAL SEE BELOW Normal [facility] Comment on above: Result Comment: <100 mg/dl OPTIMAL 100 - 129 mg/dl NEAR OR ABOVE OPTIMAL 130 - 159 mg/dl BORDERLINE HIGH 160 - 189 mg/dl HIGH >190 mg/dl VERY HIGH Performed By: #### C MP, LIPID #### [facility] [address] [place] [id number] Phani El Triglyceride [Mass/Vol] 187 mg/dL Critically high <=150 [facility] Comment on above: Performed By: #### C MP, LIPID #### [facility] [address] [place] [address] [address] Phani El VLDL CALC 37.4 mg/dL Normal [facility] Comment on above: Performed By: #### C MP, LIPID #### [facility] [address] [place] [address] [address] Phani El PROF 14(COMP METB)on 023 Albumin [Mass/Vol] 3.6 g/dL Normal 3.4-5.0 [facility] Comment on above: Performed By: #### C MP, LIPID ####[facility] [address] [place] [id number] El Albumin/Globulin [Mass ratio] 1.1 {ratio} Normal [facility] Comment on above: Performed By: #### C MP, LIPID ####[facility] [address] [place] [id number] El ALP [Catalytic activity/Vol] 91 U/L Normal 46-116 [facility] Comment on above: Performed By: #### C MP, LIPID ####[facility] [address] [place] [id number] El ALT [Catalytic activity/Vol] 34 U/L Normal 14-59 [facility] Comment on above: Performed By: #### C MP, LIPID ####[facility] [address] [place] [id number] El Anion gap [Moles/Vol] 11.6 mmol/L Normal [facility] Comment on above: Performed By: #### C MP, LIPID ####[facility] [address] [place] [address]Dr. Phani El AST [Catalytic activity/Vol] 18 U/L Normal 15-37 [facility] Comment on above: Performed By: #### C MP, LIPID ####[facility] [address] [place] [address]Dr. Phani El Bilirubin [Mass/Vol] 0.6 mg/dL Normal 0.2-1.0 [facility] Comment on above: Performed By: #### C MP, LIPID ####[facility] [address] [place], [place] [address]Dr. Loryzach El Calcium [Mass/Vol] 9.2 mg/dL Normal 8.5-10.1 [facility] Comment on above: Performed By: #### C MP, LIPID ####[facility] [address] [place], [place] [address]Dr. Phani El Chloride [Moles/Vol] 106 mmol/L Normal 98-107 [facility] Comment on above: Performed By: #### C MP, LIPID ####[facility] [address] [address] [place], [place] [address]Dr. Loryzach El CO2 [Moles/Vol] 32.3 mmol/L Critically high 21.0-32.0 [facility] Comment on above: Performed By: #### C MP, LIPID ####[facility] [address] [place], [place] [address]Dr. Phani El Creatinine [Mass/Vol] 1.04 mg/dL Critically high 0.55-1.02 [facility] Comment on above: Performed By: #### C MP, LIPID ####[facility] [address] [place], [place] [address]Dr. Phani El EGFR-AF CONGOLESE >60 Normal >=60 [facility] Comment on above: Performed By: #### C MP, LIPID ####[facility] [address] [place], [place] [address]Dr. Yilan El EGFR-NON AF CONGOLESE 54 mL/min/1.73m2 Critically low >=60 [facility] Comment on above: Performed By: #### C MP, LIPID ####[facility] [address] [place] [address]Dr. Phani El Globulin (S) [Mass/Vol] 3.4 g/dL Normal [facility] Comment on above: Performed By: #### C MP, LIPID ####[facility] [address] [place] [address]Dr. Phani El Glucose [Mass/Vol] 124 mg/dL Critically high 74-106 [facility] Comment on above: Performed By: #### C MP, LIPID ####[facility] [address] [place] [address]Dr. Phani El Potassium [Moles/Vol] 3.9 mmol/L Normal 3.5-5.1 [facility] Comment on above: Performed By: #### C MP, LIPID ####[facility] [address] [place], [place] [address]Dr. Phani El Protein [Mass/Vol] 7.0 g/dL Normal 6.4-8.2 [facility] Comment on above: Performed By: #### C MP, LIPID ####[facility] [address] [place], [place] [address]Dr. Phani El Sodium [Moles/Vol] 146 mmol/L Critically high 136-145 [facility] Comment on above: Performed By: #### C MP, LIPID ####[facility] [address] [place] [address]Dr. Phani El Urea nitrogen [Mass/Vol] 14.0 mg/dL Normal 7.0-18.0 [facility] Comment on above: Performed By: #### C MP, LIPID ####[facility] [address] [place] [address]Dr. Phani El Urea nitrogen/Creatinine [Mass ratio] 13.5 mg/mg Normal [facility] Comment on above: Performed By: #### C MP, LIPID ####[facility] [address] [place], [place] [address]NfDr. Phani El VITAMIN B12on 05-05-2022 Cobalamin (Vitamin B12) [Mass/Vol] 321.0 pg/mL Normal 193.0-986.0 [facility] Comment on above: Performed By: #### V ITAD, VITB12 #### [facility] [address], [place] [address] Dr. Phani El VITAMIN D 25 OHon 05-05-2022 VIT D 25-OH 58.7 ng/mL Normal [facility] Comment on above: Performed By: #### V ITAD, VITB12 #### [facility] [id number] Phani El VIT D RANGES SEE BELOW Normal [facility] Comment on above: Result Comment: <20 ng/mL Vit D deficient 20 - <30 ng/mL Vit D insufficient 30 - 100 ng/mL Vit D sufficient >100 ng/mL Potential Toxicity Performed By: #### V ITAD, VITB12 #### [facility] [address], [place] [address] Dr. Phani El XR CHEST 2 Von [...] LORI FROST Date: 2022-05-05 10:05 Normal [facility] Ambulatory Visit Summaryon 0 03-24-2022 Ambulatory Visit [...] B12 deficiency Vitamin D deficiency Normal [facility] General Surgery Office/Clini c Noteon [...] - Not Given Patient Refuses Normal [facility] Comment on above: Result Comment: Elec tronically Signed By: NABIL AMADOR, Bryson Steinberg\Date and Time Signed: 03/24/22 13:12 EST Reminderson 03-24-2022 Reminders - From: Kristine Harrison LPN To: N - Clinical; Sent: 03/24/2022 13:05:34 EST Show up: 01/26/2032 07:00:00 EST Subject: colonoscopy recall Due Date/Time: 02/26/2032 07:00:00 EST Reminder/Recall Patient is due for screening colonoscopy 02/26/2032. Normal [facility] Covid-19 PCR (CVDTBH)on 02-10 SARS-CoV-2 (COVID-19) RNA MARISOL+probe Ql (Unsp spec) Detected Abnormal NOT DETECTED [facility] Comment on above: Result Comment: This test is not yet approved or cleared by the [place] FDA. When there are no FDA-approved or cleared tests available, and other criteria are met, FDA can make tests available under an emergency access mechanism called an Emergency Use Authorization (EUA). The EUA for this test is supported by the [employer] Developer of Health and Human Service's (HHS's) declaration [...] used). Performed By: #### C VDTBH #### [facility] [address], [place] [address] Dr. Phani El INFLUENZA A AND B AGon 03-[address] [facility] SEE BELOW Normal [facility] Comment on above: Result Comment: Nega tive for Flu A protein angiten. Infection due to Flu A cannot be ruled out. Flu A angiten in the sample may be below the detection limit of the test. Performed By: #### I NFLUAB ####[facility] [address] [place], [place] [address]BrDr. Phani El INFLUBNEG SEE BELOW Normal [facility] Comment on above: Result Comment: Nega tive for Flu B protein antigen. Infection due to Flu B cannot be ruled out. Flu B antigen in the sample may be below the detection limit of the test. Performed By: #### I NFLUAB ####[facility] [address] [place], [place] [address]Kd. Phani El INFLUENZA A AG Negative Normal NEGATIVE SEE COMMENT [facility] Comment on above: Performed By: #### I NFLUAB ####[facility] [address] [place], [place] [address]Qz. Phani El INFLUENZA B AG Negative Normal NEGATIVE SEE COMMENT [facility] Comment on above: Performed By: #### I NFLUAB ####[facility] [address] [place], [place] [address]Ot. Phani El Cov[facility]-19 PCR [facility]on 02-09 SARS-CoV-2 (COVID-19) RNA MARISOL+probe Ql (Unsp spec) Detected Abnormal NOT DETECTED [facility] Comment on above: Result Comment: This test is not yet approved or cleared by the [place] FDA. When there are no FDA-approved or cleared tests available, and other criteria are met, FDA can make tests available under an emergency access mechanism called an Emergency Use Authorization (EUA). The EUA for this test is supported by the [employer]iz[employer] Developer of Health and Human Service's declaration that [...] used). Performed By: #### C VDTBH #### [facility] [address], [place] [address] Dr. Phani El Pathology Noteon 02-27-2022 Pathology Note [id number] 0CD:127 Normal [facility] Outside Colonoscopyon 2022 Outside Colonoscopy [id number] 0CD:127 Normal [facility] Reminderson 02-26-2022 Reminders - From: Kristine Harrison LPN To: Christy KIM Kristine Ac; Sent: 02/26/2022 11:14:25 EST Show up: 05/18/2022 07:00:00 EDT Subject: Ambulatory Reminder Due Date/Time: 05/27/2022 07:00:00 EDT Reminder/Recall log in to extra lap top in [place] to keep account active Normal [facility] Lab Reportson 02-23-2022 Lab Reports [id number] 0CD:127 Normal [facility] Covid-19 PCR ([facility])on 02-08 SARS-CoV-2 (COVID-19) RNA MARISOL+probe Ql (Unsp spec) Not detected Normal NOT DETECTED [facility] Comment on above: Result Comment: This test is not yet approved or cleared by the [place] FDA. When there are no FDA-approved or cleared tests available, and other criteria are met, FDA can make tests available under an emergency access mechanism called an Emergency Use Authorization (EUA). The EUA for this test is supported by the [place] of Health and Human Service's (HHS's) declaration [...] consistent with SARS-CoV-2. Performed By: #### C [facility] ####[facility] [address] [place], [place] [address]DrCindy El Pre-Certification Formon Pre-Certification Form [id number]. 00CD:127 Normal [facility] Consent for Procedure/Surger yon 02-05-2022 Consent for Procedure/Surgery [id number] 0CD:127 Normal [facility] Formson 02-05-2022 Forms [id number] 0CD:127 Normal [facility] Physician Referralon 022 Physician Referral [id number] [id number]:127 Normal [facility] MRI Knee w/o Lefton 12-26-19 MRI [...] by Jason Sanchez on 12/25/2021 1505 Normal [facility] MRI LSPINE WO CONon 12-05-19 MRI LSPINE [...] by: NADINE GRANT Date: 2021-12-04 17:54 Normal [facility] XR LSPINE 2_3 VIEWSon 2021 XR [...] by: NADINE GRANT Date: 2021-09-30 07:20 Normal [facility] MRI Knee w/o Lefton 07-30-19 22 [...] by Robby Diaz on 07/30/2021 1316 Normal [facility] Animal Rides Manager Vital Signs Date Time Vital Sign Value Performing Clinician Nicolasa zuleyka 08-31-2024 13:00-0400 Body mass index (BMI) [Ratio] 40.77 kg/m2 Nat Beatriz DO Work Phone: [facility] 08-31-2024 13:00-0400 Body weight 111.13 kg Nat Beatriz DO Work Phone: [facility] 08-31-2024 13:00-0400 Diastolic blood pressure 64 mm[Hg] Nat Beatriz DO Work Phone: [facility] 08-31-2024 13:00-0400 Heart rate 86 /min Nat Beatriz DO Work Phone: [facility] 08-31-2024 13:00-0400 SaO2% (BldA) [Mass fraction] 94 % Nat Beatriz DO Work Phone: [facility] 08-31-2024 13:00-0400 Systolic blood pressure 110 mm[Hg] Nat Beatriz DO Work Phone: [facility] 07-31-2024 10:09-0400 Body mass index (BMI) [Ratio] 40.9 kg/m2 Jaymie Phoenix [employer] Work Phone: [facility] 07-31-2024 10:09-0400 Body temperature 98.1 [degF] Jaymie Alban [employer] IN[employer]ER Work Phone: [facility] 07-31-2024 10:09-0400 Body weight 111.49 kg Jaymie Alban [employer]ER Work Phone: [facility] 07-31-2024 10:09-0400 Diastolic blood pressure 70 mm[Hg] Jaymie Alban [employer]ER Work Phone: [facility] 06-23-2025 10:09-0400 Heart rate 80 /min Jaymie Phoenix [employer] IN[employer]ER Work Phone: [facility] 07-31-2024 10:09-0400 Respiratory rate 24 /min Jaymie Phoenix [employer] IN[employer]ER Work Phone: [facility] 07-31-2024 10:09-0400 SaO2% (BldA) [Mass fraction] 92 % Jaymie Phoenix [employer] IN[employer]ER Work Phone: [facility] 07-31-2024 10:09-0400 Systolic blood pressure 104 mm[Hg] Jaymie Francoishomer [employer] IN[employer]ER Work Phone: [facility] 03-14-2024 14:53-0500 Body mass index (BMI) [Ratio] 40.7 kg/m2 Christopher Wong DO Work Phone: [facility] 03-14-2024 14:53-0500 Body weight 110.95 kg Christopher Wong DO Work Phone: [facility] 03-14-2024 14:53-0500 Diastolic blood pressure 82 mm[Hg] Christopher Wong DO Work Phone: [facility] 03-14-2024 14:53-0500 Heart rate 76 /min Christopher Wong DO Work Phone: [facility] 03-14-2024 14:53-0500 SaO2% (BldA) [Mass fraction] 94 % Christopher Wong DO Work Phone: [facility] 03-14-2024 14:53-0500 Systolic blood pressure 128 mm[Hg] Christopher Wong DO Work Phone: [facility] 02-10-2024 13:31-0500 Body height 165.1 cm Jaymie Phoenix [employer] IN[employer]ER Work Phone: [facility] 02-10-2024 13:31-0500 Body mass index (BMI) [Ratio] 40.94 kg/m2 Jaymie Xavierashley [employer]ER Work Phone: [facility] 02-10-2024 13:31-0500 Body temperature 98.1 [degF] Jaymiebrianne Francoisz [employer] IN[employer]ER Work Phone: [facility] 02-10-2024 13:31-0500 Body weight 111.58 kg Jaymie Ducholz [employer] IN[employer]ER Work Phone: [facility] 02-10-2024 13:31-0500 Diastolic blood pressure 80 mm[Hg] Jaymie Aichholz [employer] IN[employer]ER Work Phone: [facility] 02-10-2024 13:31-0500 Heart rate 87 /min Jaymie Maddyhholz [employer] IN[employer]ER Work Phone: [facility] 02-10-2024 13:31-0500 Respiratory rate 18 /min Jaymie Ducholz [employer] IN[employer]ER Work Phone: [facility] 02-10-2024 13:31-0500 SaO2% (BldA) [Mass fraction] 94 % Jaymie Ducholz [employer] IN[employer]ER Work Phone: [facility] 02-10-2024 13:31-0500 Systolic blood pressure 110 mm[Hg] Jaymie Maddyhholz [employer] IN[employer]ER Work Phone: [facility] 01-03-2024 10:30-0500 Body height 165.1 cm Jaymie Maddyhholz [employer] IN[employer]ER Work Phone: [facility] 01-03-2024 10:30-0500 Body mass index (BMI) [Ratio] 40.6 kg/m2 Jaymie Ducholz [employer] IN[employer]ER Work Phone: [facility] 01-03-2024 10:30-0500 Body temperature 98.1 [degF] Jaymie Maddyhholz [employer] IN[employer]ER Work Phone: [facility] 01-03-2024 10:30-0500 Body weight 110.68 kg Jaymie Maddyhholz [employer] IN[employer]ER Work Phone: [facility] 01-03-2024 10:30-0500 Diastolic blood pressure 86 mm[Hg] Jaymie Aichholz [employer] IN[employer]ER Work Phone: [facility] 01-03-2024 10:30-0500 Heart rate 89 /min Jaymie Ducholz [employer] IN[employer]ER Work Phone: [facility] 01-03-2024 10:30-0500 Respiratory rate 19 /min Jaymie Ducholz [employer] IN[employer]ER Work Phone: [facility] 01-03-2024 10:30-0500 SaO2% (BldA) [Mass fraction] 91 % Jaymie Ducholz [employer] IN[employer]ER Work Phone: [facility] 01-03-2024 10:30-0500 Systolic blood pressure 106 mm[Hg] Jaymie Aichholz [employer] IN[employer]ER Work Phone: [facility] 03-25-2023 13:13-0500 Body height 165.1 cm Jaymie Maddyhholz [employer] IN[employer]ER Work Phone: [facility] 03-25-2023 13:13-0500 Body mass index (BMI) [Ratio] 42.9 kg/m2 Jaymie Ducholz [employer] IN[employer]ER Work Phone: [facility] 03-25-2023 13:13-0500 Body temperature 97.5 [degF] Jaymie Maddyhholz [employer] IN[employer]ER Work Phone: [facility] 03-25-2023 13:13-0500 Body weight 116.94 kg Jaymie Ducholz [employer] IN[employer]ER Work Phone: [facility] 03-25-2023 13:13-0500 Diastolic blood pressure 68 mm[Hg] Jaymie Ducholz [employer] IN[employer]ER Work Phone: [facility] 03-25-2023 13:13-0500 Heart rate 71 /min Jaymie Aichholz [employer] INST[employer]ER Work Phone: [facility] 03-25-2023 13:13-0500 Respiratory rate 20 /min Jaymie Aichholz [employer] IN[employer]ER Work Phone: [facility] 03-25-2023 13:13-0500 SaO2% (BldA) [Mass fraction] 95 % Jaymie Ducholz [employer] IN[employer]ER Work Phone: [facility] 03-25-2023 13:13-0500 Systolic blood pressure 108 mm[Hg] Jaymiebrianne Xavierholz [employer] IN[employer]ER Work Phone: [facility] 03-16-2023 13:35-0500 Body height 165.1 cm Jaymie Aichholz [employer]BI[employer] IN[employer]ER Work Phone: [facility] 03-16-2023 13:35-0500 Body mass index (BMI) [Ratio] 41.6 kg/m2 Jaymie Aichholz [employer]BI[employer] IN[employer]ER Work Phone: [facility] 03-16-2023 13:35-0500 Body temperature 98.4 [degF] Jaymie Maddyhholz [employer]BI[employer] IN[employer]ER Work Phone: [facility] 03-16-2023 13:35-0500 Body weight 113.4 kg Jaymie Maddyhholz [employer]BI[employer] IN[employer]ER Work Phone: [facility] 03-16-2023 13:35-0500 Diastolic blood pressure 72 mm[Hg] Jaymie Maddyhholz [employer] IN[employer]ER Work Phone: [facility] 03-16-2023 13:35-0500 Heart rate 77 /min Jaymie Aichholz [employer] IN[employer]ER Work Phone: [facility] 03-16-2023 13:35-0500 Respiratory rate 18 /min Jaymie Aichholz [employer]BI[employer] INSTALLER Work Phone: [facility] 03-16-2023 13:35-0500 SaO2% (BldA) [Mass fraction] 95 % Jaymie Maddyhholz [employer]BI[employer] INST[employer]ER Work Phone: [facility] 03-16-2023 13:35-0500 Systolic blood pressure 112 mm[Hg] Jaymie Aichholz [employer]BI[employer] IN[employer]ER Work Phone: [facility] 02-03-2022 13:27-0500 Blood Pressure Location Bryson SAMPSON [facility] 02-03-2022 13:27-0500 Diastolic blood pressure 80 mm[Hg] Bryson SAMPSON [facility] 02-03-2022 13:27-0500 Heart rate 72 /min Bryson SAMPSON [facility] [place] 02-03-2022 13:27-0500 Respiratory rate 16 /min Bryson SAMPSON [facility] [place] 02-03-2022 13:27-0500 Systolic blood pressure 126 mm[Hg] Bryson SAMPSON [facility] [place] Encounters Encounter Date Encounter Type Care Provider Facility Start: 09-29-2024 End: 09-29-2024 Refill Jaymie Phoenix [employer] Work Phone: [facility] Comment on above: [...] Start: 08-29-2024 End: 08-29-2024 ambulatory Alphonse Damian Facility:[facility] Comment on above: Acute back pain with sciatica, unspecified laterality (Primary Dx) Start: 08-28-2024 End: 08-28-2024 Orders Only Jaymie Aichholz [employer] IN[employer]ER Work Phone: [facility] Comment on above: Acute back pain with sciatica, unspecified laterality (Primary Dx) Start: 08-05-2024 End: 08-06-2024 Refill Jaymie Aichholz [employer] IN[employer]ER Work Phone: [facility] Comment on above: Tobacco dependence Start: 07-31-2024 End: 07-31-2024 Patient encounter procedure Jaymie Aichholz [employer] IN[employer]ER Work Phone: [facility] Comment on above: Encounter for subseq uent annual wellness visit (AWV) in Medicare patient (Primary Dx); Chronic kidney disease, stage 3a (CMS-HCC); WINSOME (obstructive sleep apnea); COPD mixed type ([facility]); Gastroesophageal reflux [...] Start: 07-05-2024 End: 07-05-2024 Refill Jaymie Aichholz [employer] IN[employer]ER Work Phone: [facility] Comment on above: Fibromyalgia Start: 06-26-2024 End: 06-26-2024 Refill Jaymie Aichholz [employer] IN[employer]ER Work Phone: [facility] Comment on above: Tobacco dependence ( Primary Dx) Start: 06-14-2024 End: 06-14-2024 Refill Jaymie Aichholz [employer] IN[employer]ER Work Phone: [facility] Comment on above: Mixed hyperlipidemia (CMS/HCC) Start: 05-09-2024 End: 05-09-2024 Refill Jaymie Aichholz [employer] IN[employer]ER Work Phone: [facility] Comment on above: Fibromyalgia Start: 04-19-2024 End: 04-19-2024 Refill Jaymie Aichholz [employer] IN[employer]ER Work Phone: [facility] Comment on above: Environmental and se asonal allergies (Primary Dx); COPD mixed type (CMS/HCC) Start: 04-08-2024 End: 04-10-2024 Refill Jaymie Phoenix [employer] IN[employer]ER Work Phone: [facility] Comment on above: Fibromyalgia; Localized edema; Mixed hyperlipidemia (CMS/HCC) Start: 03-14-2024 End: 03-14-2024 Office outpatient new 30 minutes Saumya Back DO Work Phone: [facility] Comment on above: 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); Tremor Start: 03-14-2024 End: 03-14-2024 ambulatory SAUMYA BACK Not Available Start: 03-14-2024 End: 03-14-2024 Bamboo flowsheet Saumya Back DO Work Phone: [facility] Start: 03-14-2024 End: 03-14-2024 Bamboo flowsheet Saumya Back DO Work Phone: [facility] Start: 02-10-2024 End: 02-10-2024 Bamboo flowsheet Jaymie Phoenix [employer] INST[employer]ER Work Phone: [facility] Start: 02-10-2024 End: 02-10-2024 Bamboo flowsheet Jaymie Phoenix [employer]BI[employer] INST[employer]ER Work Phone: [facility] Start: 02-10-2024 End: 02-10-2024 ambulatory JAYMIEBrianne [place] Not Available Start: 02-10-2024 End: 02-10-2024 Office outpatient visit 25 minutes Jaymie Phoenix [employer] INST[employer]ER Work Phone: [facility] Comment on above: COPD with acute exac erbation (CMS/HCC) (Primary Dx); Morbid (severe) obesity due to excess calories ([facility]/HCC); Body mass index (BMI) 40.0-44.9, adult ([facility]); WINSOME (obstructive sleep apnea); COPD mixed type ([facility]/HCC); Gastroesophageal reflux disease, unspecified whether esophagitis present; Tobacco dependence; Gastro-esophageal reflux disease without esophagitis; Tremor Start: 02-03-2024 End: 02-06-2024 Refill Jaymiebrianne Phoenix [employer] INST[employer]ER Work Phone: [facility] Comment on above: Fibromyalgia Start: 01-27-2024 End: 01-27-2024 Clinisync Result Encounter Jaymie Alban [employer] IN[employer]ER Work Phone: [facility] Unsolicited Start: 01-27-2024 End: 01-27-2024 Clinisync Result Encounter Jaymie Alessandroz [employer] IN[employer]ER Work Phone: [facility] Unsolicited Start: 01-24-2024 End: 01-24-2024 Clinisync Result Encounter Jaymie Alessandroz [employer] INST[employer]ER Work Phone: [facility] Unsolicited Start: 01-24-2024 End: 01-24-2024 Clinisync Result Encounter Jaymiebrianne Castañedaaminaz [employer] INST[employer]ER Work Phone: [facility] Unsolicited Start: 01-03-2024 End: 01-03-2024 Bamboo flowsheet Jaymie Ducholz [employer]BI[employer] INSTALLER Work Phone: [facility] Start: 01-03-2024 End: 01-03-2024 Bamboo flowsheet Jaymie Ducholz [employer]BI[employer] INSTALLER Work Phone: [facility] Start: 01-03-2024 End: 01-03-2024 Office outpatient visit 25 minutes Jaymie Phoenix [employer]BI[employer] IN[employer]ER Work Phone: [facility] Comment on above: WINSOME (obstructive sle ep apnea) (Primary Dx); COPD mixed type ([facility]); Primary hypertension ([facility]/HCC); Fibromyalgia; BMI 40.0-44.9, adult ([facility]); Tobacco dependence; Mixed hyperlipidemia ([facility]); Vitamin D deficiency; Vitamin B12 deficiency; COPD with acute exacerbation ([facility]) Start: 01-03-2024 End: 01-03-2024 ambulatory JAYMIE AICHHOLZ Not Available Start: 12-31-2023 End: 12-31-2023 Refill Jaymie Alban [employer] IN[employer]ER Work Phone: [facility] Start: 12-30-2023 End: 12-31-2023 Refill Jaymie Alban MOBI[employer] E[employer] INST[employer]ER Work Phone: [facility] Comment on [...] Start: 11-24-2023 End: 11-24-2023 Refill Jaymie Alban [employer]BI[employer] INST[employer]ER Work Phone: [facility] Comment on above: Mixed hyperlipidemia (CMS/HCC) Start: 10-26-2023 End: 10-26-2023 Refill Jaymie Alban [employer]BI[employer] INST[employer]ER Work Phone: [facility] Comment on above: Fibromyalgia; Gastro-esophageal reflux disease without esophagitis Start: 06-03-2023 Patient encounter procedure Jaymie Phoenix [employer]BI[employer] INST[employer]ER Work Phone: [facility] Start: 03-25-2023 Bamboo flowsheet Jaymie Alban [employer]BI[employer] E[employer] INSTALLER Work Phone: [facility] Start: 03-25-2023 Bamboo flowsheet Jaymie Alban [employer]BI[employer] INST[employer]ER Work Phone: [facility] Start: 03-25-2023 End: 03-25-2023 Office outpatient visit 25 minutes Jaymie Phoenix [employer]BI[employer] IN[employer]ER Work Phone: [facility] Comment on above: Edema of right lower extremity (Primary Dx); BMI 40.0-44.9, adult (CMS/HCC); Shortness of breath; COPD mixed type (CMS/HCC); Primary hypertension (CMS/HCC); Bilateral lower extremity edema Start: 03-16-2023 End: 03-16-2023 Office outpatient visit 25 minutes Jaymie Phoenix [employer] IN[employer]ER Work Phone: [facility] Comment on [...] Start: 03-24-2022 End: 03-25-2022 ambulatory Bryson SAMPSON Facility:[facility] Start: 03-17-2022 ambulatory Bryson SAMPSON Facility :[facility] Start: 03-10-2022 End: 03-10-2022 ambulatory MEREDITH PHOENIX Facility:[facility] Start: 03-02-2022 Encounter for preprocedural laboratory examination DR JIM ALLAN . [facility] Start: 02-28-2022 End: 03-01-2022 Encounter for preprocedural laboratory examination MEREDITH PHOENIX Facility:[facility] Start: 02-28-2022 End: 03-01-2022 ambulatory MEREDITH PHOENIX Facility:[facility] Start: 02-25-2022 End: 02-26-2022 ambulatory Bryson SAMPSON Facility:[id number] Start: 02-21-2022 End: 02-22-2022 ambulatory [...] 01-06-2022 ambulatory Bryson Hernandez NABIL Facility : [facility] Start: 12-23-2021 End: 12-23-[address] JIM ALLAN . Facility: Start: 12-09-2021 End: 12-10-[address] JIM ALLAN . Facility: Start: 12-04-2021 End: 12-05-2021 ambulatory MEREDITH PHOENIX Facility: Start: 12-03-2021 End: 12-03-2021 ambulatory GLENROY BOWERS . Facility: Start: 10-10-2021 End: 10-30-2021 ambulatory MR DEMETRIUS MENDEZ . Facility: Start: 09-29-2021 End: 09-30-2021 ambulatory MEREDITH PHOENIX Facility: Start: 09-20-2021 End: 09-20-2021 ambulatory GLENROY BOWERS . Facility: Procedures Date Procedure Procedure Detail Performing Clinician Start: 09-19-2024 XR LUMBAR SPINE 6V W BENDING Generic External Data Provider Start: 02-10-2024 Mammography Jaymie kohler [employer] Work Phone: Start: 01-27-2024 [facility] MICROALB CREAT R ATIO RANDOM Jaymie Phoenix [employer] Work Phone: Start: 01-24-2024 ALL BASIC METABOLIC PANEL Jaymie Phoenix [employer] Work Phone: Start: 01-24-2024 ALL LIPID PROFILE (FASTING) Jaymie Phoenix NP Work Phone: Start: 12-25-2023 BLOOD CULTURE 2 Generic External Data Provider Start: 12-25-2023 BLOOD CULTURE 1 Generic External Data Provider Start: 12-24-2023 BLOOD CULTURE 2 Generic External Data Provider Start: 12-24-2023 BLOOD CULTURE 1 Generic External Data Provider Start: 03-25-2023 Mammography Jaymie kohler [employer] Work Phone: Start: 02-25-2022 Colonoscopy Jaymie kohler [employer] IN[employer]ER Work Phone: section Bryson RACHEL L Ligation [...] [facility] [address] [place] [phone] Jaymie Phoenix, NILE [address] [place] [phone] [facility] Start: 07-31-2025 Medicare Annual [...] [facility] [address] [place] [address] Jaymie Phoenix, NILE [address] [place] [phone] [facility] Start: 08-31-2024 End: 08-31-2024 Patient encounter procedure 08/31/2024 1:00 PM EDT [facility] [address] [place] [phone] Nat Henderson, DO [address] [place] [address] [facility] Start: 07-31-2024 End: 07-31-2025 CT Chest for screening WO contrast CT lung screening low dose Imaging Routine Tobacco dependence Expected: 07/31/2024, Expires: 07/31/2025 [facility] Work Phone: Comment on above: Expected: 07/31/2024 , Expires: 07/31/2025 Start: 07-31-2024 End: 07-31-2024 Patient encounter procedure 07/31/2024 10:30 AM EDT Office Visit [facility] [address] [place] [address] Jaymie Phoenix, NILE [address] [place] [phone] [facility] Start: 06-14-2024 Influenza vaccination Influenza Vacc ine (#1) [facility] Comment on above: Postponed from 10/09 (Patient Refused) Start: 06-05-2024 End: 06-05-2024 Patient encounter procedure 06/05/2024 3:40 PM EDT Office Visit [facility] [address] [place] [phone] Sherice Tristan NP [address] [place] [phone] [facility] Start: 06-02-2024 Medicare Annual Well ness (AWV) Medicare Annual Wellness (AWV) [facility] Start: 05-10-2024 End: 05-10-2024 Patient encounter procedure 05/10/2024 2:00 PM EDT Office Visit [facility] [address] [place] [phone] Jaymie Phoenix, NILE [address] [place] [phone] [facility] Start: 04-06-2024 Influenza vaccination Influenza Vacc ine (#1) [facility] Comment on above: Postponed from 10/09 (Patient Refused) Start: 03-25-2024 Screening for malign ant neoplasm of breast Mammogram [facility] Start: 03-14-2024 End: 03-14-2024 Patient encounter procedure 03/14/2024 3:00 PM EST Office Visit [facility] [address] [place], [place] [address], [place] [phone] Saumya Back DO [address] [place], [place] [phone] Trem[facility] Comment on above: Tremor Start: 01-26-2024 End: 01-26-2024 Patient encounter procedure 01/26/2024 10:30 AM EST Office Visit [facility] [address] [place] [phone] Jaymie Phoenix, NILE [address] [place] [phone] [facility] Start: 01-03-2024 End: 01-02-2025 25-hydroxyvitamin D3 [Mass/volume] in Serum or Plasma Vitamin D 25 hydroxy Lab Routine Vitamin D deficiency Expected: 01/03/2024 (Approximate), Expires: 01/02/2025 [facility] Comment on above: Expected: 01/03/2024 (Approximate), Expires: 01/02/2025 Start: 01-03-2024 End: 01-02-2025 Basic metabolic 1998 panel - Serum or Plasma Basic metabolic panel Lab Routine Primary hypertension (CMS/HCC) Expected: 01/03/2024 (Approximate), Expires: 01/02/2025 [facility] Comment on above: Expected: 01/03/2024 (Approximate), Expires: 01/02/2025 Start: 01-03-2024 End: 01-02-2025 Cobalamin (Vitamin B12) [Mass/volume] in Serum or Plasma Vitamin B12 Lab Routine Vitamin B12 deficiency Expected: 01/03/2024 (Approximate), Expires: 01/02/2025 [facility] Comment on above: Expected: 01/03/2024 (Approximate), Expires: 01/02/2025 Start: 01-03-2024 End: 01-02-2025 Lipid 1996 panel - Serum or Plasma Lipid panel Lab Routine Mixed hyperlipidemia (CMS/HCC) Expected: 01/03/2024 (Approximate), Expires: 01/02/2025 [facility] Comment on above: Expected: 01/03/2024 (Approximate), Expires: 01/02/2025 Start: 01-03-2024 End: 01-02-2025 Microalbumin/Creatinine panel in random Urine Microalbumin / creatinine, urine ratio Lab Routine Primary hypertension (CMS/HCC) Tobacco dependence Expected: 01/03/2024 (Approximate), Expires: 01/02/2025 [facility] Work Phone: Comment on above: Expected: 01/03/2024 (Approximate), Expires: 01/02/2025 Start: 01-03-2024 End: 01-02-2025 Urinalysis complete panel - Urine Urinalysis with reflex microscopic (clean catch) Lab Routine Primary hypertension (CMS/HCC) Tobacco dependence Expected: 01/03/2024 (Approximate), Expires: 01/02/2025 [facility] Comment on above: Expected: 01/03/2024 (Approximate), Expires: 01/02/2025 Start: 01-03-2024 End: 01-03-2024 Patient encounter procedure [facility] Comment on above: WINSOME (obstructive sle ep apnea) (Primary Dx); COPD mixed type ([facility]); Primary hypertension ([facility]); Fibromyalgia; BMI 40.0-44.9, adult ([facility]); Tobacco dependence; Mixed hyperlipidemia ([facility]); Vitamin D deficiency; Vitamin B12 deficiency Start: 10-10-2023 Influenza vaccination Influenza Vacc ine (#1) [facility] Start: 08-08-2023 Influenza vaccination Influenza Vacc ine (#1) [facility] Comment on above: Postponed from 10/09 (Patient Refused) Start: 04-06-2023 End: 04-06-2023 Patient encounter procedure 04/06/2023 1:40 PM EST Office Visit [facility] [address] [place] [phone] Jaymie Phoenix NP [address] [place] [phone] [facility] Start: 03-25-2023 End: 03-25-2024 CBC W Auto Differential panel - Blood CBC and differential Lab Routine Edema of right lower extremity Expected: 03/25/2023 (Approximate), Expires: 03/25/2024 [facility] Comment on above: Expected: 03/25/2023 (Approximate), Expires: 03/25/2024 Start: 03-25-2023 End: 03-25-2024 Comprehensive metabolic 2000 panel - Serum or Plasma Comprehensive metabolic panel Lab Routine Edema of right lower extremity Expected: 03/25/2023 (Approximate), Expires: 03/25/2024 [facility] Comment on above: Expected: 03/25/2023 (Approximate), Expires: 03/25/2024 Start: 03-25-2023 End: 03-25-2024 Fibrin D-dimer FEU [Mass/volume] in Platelet poor plasma D-dimer, quantitative Lab Routine Edema of right lower extremity Expected: 03/25/2023 (Approximate), Expires: 03/25/2024 [facility] Comment on above: Expected: 03/25/2023 (Approximate), Expires: 03/25/2024 Start: 03-25-2023 End: 03-25-2024 US.doppler Lower extremity vein - right Vascular US lower extremity venous duplex right Imaging STAT Edema of right lower extremity Expected: 03/25/2023, Expires: 03/25/2024 [facility] Work Phone: Comment on above: Expected: 03/25/2023 , Expires: 03/25/2024 Start: 03-25-2023 End: 03-25-2024 XR Chest 2 Views XR chest 2 views Imaging Routine Edema of right lower extremity Shortness of breath Expected: 03/25/2023, Expires: 03/25/2024 [facility] Comment on above: Expected: 03/25/2023 , Expires: 03/25/2024 Start: 08-16-1993 Screening for malign ant neoplasm of cervix HPV/Cotest [facility] Start: 08-16-1984 Screening for malign ant neoplasm of cervix Pap Smear [facility] Start: 1965 Medicare Annual Well ness (AWV) Medicare Annual Wellness (AWV) [facility] Start: 1965 Screening for malign ant neoplasm of colon [facility] Start: 1965 Screening for malign ant neoplasm of lung Lung Cancer Screening Shared Decision Making [facility] BLOOD CULTURE 1 BLOOD CULTURE 1 Lab Routine 12/24/2023 1:45 PM EST [facility] BLOOD CULTURE 1 BLOOD CULTURE 1 Lab Routine 12/25/2023 9:09 PM [facility] BLOOD CULTURE 2 BLOOD CULTURE 2 Lab Routine 12/24/2023 1:51 PM EST [facility] BLOOD CULTURE 2 BLOOD CULTURE 2 Lab Routine 12/25/2023 9:20 PM [facility] Immunizations Immunization Date Immunization Notes Care Provider Fa [facility] 08-29-2023 tetanus toxoid, reduced diphtheria toxoid, and acellular pertussis vaccine, adsorbed Jaymie Phoenix [employer] IN[employer]ER Work Phone: [facility] 06-14-2020 Kelly SARS-CoV-2 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 2015 Medicare [id number] 1963 Unknown [id number] 2.16.840.1.878689.3.579.2. 72 1963 Unknown [id number] 2.16.840.1.901661.3.579.2. 72 1963 Unknown [id number] 2.16.840.1.017333.3.579.2. 72 1963 Unknown [id number] 2.16.840.1.861661.3.579.2. 72 1963 Unknown [id number] 2.16.840.1.481877.3.579.2. 72 1963 Unknown [id number] 2.16.840.1.882986.3.579.2. 59 1963 Unknown [id number] 2.16.840.1.422011.3.579.2. 59 1963 Unknown [id number] 2.16.840.1.616609.3.579.2. 59 1963 Unknown [id number] 2.16.840.1.044225.3.579.2. 59 1963 Unknown [id number] 2.16.840.1.137061.3.579.2. 593 1963 Unknown [id number] 2.16.840.1.090690.3.579.2. 593 1963 Unknown [id number] 2.16.840.1.242104.3.579.2. 59 1963 Unknown [id number] 2.16.840.1.437319.3.579.2. 59 1963 Unknown [id number] 2.16.840.1.607360.3.579.2. 59 1963 Unknown [id number] 2.16.840.1.516347.3.579.2. 59 1963 Unknown [id number] 2.16.840.1.152124.3.579.2 59 1963 Unknown [id number] 2.16.840.1.344578.3.579.2 1963 Unknown [id number] 2.16.840.1.928455.3.579.2 59 1963 Unknown [id number] 2.16.840.1.608037.3.579.2 59 1963 Unknown [id number] 2.16.840.1.434915.3.579.2 59 1963 Unknown [id number] 2.16.840.1.813569.3.579.2. 59 1963 Unknown [id number] 2.16.840.1.107102.3.579.2. 59 1963 Unknown [id number] 2.16.840.1.417619.3.579.2. 59 1963 Unknown [id number] 2.16.840.1.154906.3.579.2 59 1963 Unknown [id number] 2.16.840.1.257508.3.579.2. 59 1963 Unknown [id number] 2.16.840.1.672838.3.579.2. 593 1963 Unknown [id number] 2.16.840.1.787320.3.579.2. 593 1963 Unknown [id number] 2.16.840.1.173361.3.579.2. 1259 1963 Unknown [id number] 2.16.840.1.407817.3.579.2. 9 1963 Unknown [id number] 2.16.840.1.875798.3.579.2. 1259 1963 Unknown [id number] 2.16.840.1.019919.3.579.2. 9 1963 Unknown [id number] 2.16.840.1.118582.3.579.2. 1259 1959 Private Health Insurance [id number] Unknown [id number] 2.16.840.1.542852.3.579.2. 531 Social History Date Type Detail Facility Start: 02-03-2022 Tobacco smoking status Heavy t obacco smoker (finding) [facility] Tobacco smoking status Never [facility] Start: 03-16-2023 End: 05-13-2023 Sex Assigned At Female [facility] Start: 01-26-2023 End: 09-01-2024 Tobacco smoking status MDIS Smokes tobacco daily [facility] History [...] the mortgage or rent on time? Yes [facility] Functional Status Date Assessment Result Facility 07-31-2024 Patient Health Quest ionnaire 2 item (PHQ-2) [Reported] [facility] 07-31-2024 PHQ-9 quick depressi on assessment panel [Reported.PHQ] [facility] 02-03-2022 Functional Status N/A [facility] Clinical Notes 12-09-2021 to 08-31-2024 Nat Henderson [...] by mouth at bedtime 90 tablet 1 Lbrtxuv-Gklceakqlpa-Ytacqicvpq (Breztri Aerosphere) 160-9-4.8 MCG/ACT aerosol Inhale 2 [...] (5000 UT) tablet as directed Orally HYDROcodone-acetaminophen ([place]) 5-325 MG tablet Take 1 tablet by [...] (BMI) of 40.0 to 44.9 in adult ([facility]) 01/26/2023 COPD [...] Nat Henderson DO documented in this encounter [facility] 07-31-2024 History of Presen t illness Narrative [...] Morbid (severe) obesity due to excess calories ([facility]) Discussed with [...] Associated Problem(s): Chronic kidney disease, stage 3a ([facility]) Check Chem 8 02 range is 89-92% [...] Nightly atorvastatin (LIPITOR) 20 mg, Oral, Nightly Gpejfws-Dpvlkfuglxf-Xylovrmgol (Breztri Aerosphere) 160-9-4.8 MCG/ACT aerosol 2 puffs, [...] (BMI) of 40.0 to 44.9 in adult ([facility]) 01/26/2023 COPD [...] of the risks of continued smoking: stroke, [place], all forms of cancer, lung disease, and [...] PFT prior to seeing pulmonology Relevant Medications Qanedom-Hzirqmitfda-Wtbydhnwoq (Breztri Aerosphere) 160-9-4.8 MCG/ACT aerosol Anxiety and depression Continue with Dr Hernandez GERD (gastroesophageal reflux disease) Recommendations: freq small meals, nothing to eat or drink at least 2 hours prior to bed, limit caffeine, alcohol, as well as spicy foods Meds to limit or avoid if possible: NSAIDS Elevate HOB if possible Current med: omeprazole Insurance correspondance about [employer] use of PPI 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, would like to continue WINSOME (obstructive [...] MG tablet Chronic kidney disease, stage 3a ([facility]) Check Chem 8 Screening for lung [...] of the risks of continued smoking: stroke, [place], all forms of cancer, lung disease, and [...] possible Current med: omeprazole Insurance correspondance about [place] [facility] use of PPI Pt has been counseled on the risks of [place] [facility] use, would like to continue Associated Problem(s): [...] . Compliant: no documented in this encounter [facility] 07-31-2024 Instructions Jaymie Phoenix NP - 07/31/2024 10:30 AM EDT Get labs completed Chantix: take as directed, contact me if worsening in mental health documented in this encounter [facility] 06-14-2024 Telephone encounter Note She is also due for her AWV, please call to schedule [place] [facility] 06-14-2024 Miscellaneous Notes She is also due for her AWV, please call to schedule [place] documented in this encounter [facility] 06-14-2024 Telephone encounter Note 90 day supply [facility] 06-14-2024 Miscellaneous Notes 90 day supply documented in this encounter [facility] 03-14-2024 History of Presen t illness Narrative [...] (BMI) of 40.0 to 44.9 in adult ([facility]) 01/26/2023 COPD mixed type ([facility]) 01/26/2023 DENIES HX OF BLOOD BORNE DISEASES Depression ([facility]) Fibromyalgia Open wound of left foot 01/26/2023 Open wound of second toe 01/26/2023 Other acute sinusitis 01/26/2023 Primary hypertension ([facility]) 01/26/2023 Tobacco [...] , wrist extensors , wrist flexor , branch store manager strength 5/5. LUE Strength deltoid , biceps , triceps , wrist extensors , wrist flexor , branch store manager strength 5/5. RLE Strength illopsoas, quadriceps, [...] reflex 1+ . Forrest's sign negative. Coordination: Zrafrf-ai-nhmh testing and rapid alternating movements are normal [...] and return instructions documented in this encounter [facility] 02-10-2024 History of Presen t illness Narrative [...] (BMI) of 40.0 to 44.9 in adult ([facility]) 01/26/2023 COPD mixed type ([facility]) 01/26/2023 DENIES HX OF BLOOD BORNE DISEASES Depression ([facility]) Fibromyalgia Open wound of left foot 01/26/2023 Open wound of second toe 01/26/2023 Other acute sinusitis 01/26/2023 Primary hypertension ([facility]) 01/26/2023 Tobacco [...] of the risks of continued smoking: stroke, [place], all forms of cancer, lung disease, and [...] possible Current med: omeprazole Insurance correspondance about [facility] use of PPI Pt has been counseled on the risks of [place] [facility] use, would like to continue Associated Problem(s): [...] . Compliant: no documented in this encounter [facility] 01-03-2024 History of Presen t illness Narrative [...] (BMI) of 40.0 to 44.9 in adult ([facility]) 01/26/2023 COPD mixed type ([facility]) 01/26/2023 DENIES HX OF BLOOD BORNE DISEASES Depression ([facility]) Fibromyalgia Open wound of left foot 01/26/2023 Open wound of second toe 01/26/2023 Other acute sinusitis 01/26/2023 Primary hypertension ([facility]) 01/26/2023 Tobacco [...] of the risks of continued smoking: stroke, [place], all forms of cancer, lung disease, and [...] of the risks of continued smoking: stroke, [place], all forms of cancer, lung disease, and [...] use of PAP documented in this encounter [facility] 01-03-2024 Instructions Jaymie Phoenix NP - 01/03/2024 10:30 AM EST Referral to networking administrator Consider patches documented in this encounter [facility] 03-25-2023 History of Presen t illness Narrative [...] (BMI) of 40.0 to 44.9 in adult ([facility]) 01/26/2023 COPD mixed type ([facility]) 01/26/2023 DENIES HX OF BLOOD BORNE DISEASES Depression ([facility]) Fibromyalgia Open [...] views documented in this encounter [facility] 03-16-2023 History of Presen t illness Narrative [...] (BMI) of 40.0 to 44.9 in adult ([facility]) 01/26/2023 COPD mixed type ([facility]) 01/26/2023 DENIES HX OF BLOOD BORNE DISEASES Depression ([facility]) Fibromyalgia Open wound of left foot 01/26/2023 Open wound of second toe 01/26/2023 Other acute sinusitis 01/26/2023 Primary hypertension ([facility]) 01/26/2023 Tobacco [...] (Z68.41) documented in this encounter [facility] 04-30-2022 Note CONSULTATION CONSULTATION DATE: 04/30/2022 TO: [...] office on an as needed basis. [facility] 02-25-2022 Note OPERATIVE NOTE OPERATION DATE: 02/25/2022 [...] good condition. CC: Patient's family physician [facility] 02-06-2022 Note CONSULTATION CONSULTATION DATE: 02/06/2022 HISTORY [...] followed up in the clinic thereafter. [facility] 02-03-2022 Note Chief Complaint consultation for positive [...] 30 days Tobacco (more content not included)... [facility] Comment on above: Result Comment: Elec [...] followed up in the clinic thereafter. [facility] 12-09-2021 Note CONSULTATION CONSULTATION DATE: 12/09/2021 CHIEF [...] would like to proceed. CC: Jaymie Phoenix, [employer]ADE [employer] FINISHER [facility] Evaluation + Plan note No data available for this section [facility] [place] Evaluation note Diagnosis COPD mixed type (CMS/HCC)- [...] right lower extremity- Primary BMI 40.0-44.9, adult ([facility]) Shortness of breath COPD mixed type (CMS/HCC) Primary hypertension (CMS/HCC) Unspecified essential hypertension Bilateral lower extremity edema Bilateral lower extremity edema- Primary Primary hypertension (CMS/HCC) Unspecified essential hypertension COPD mixed type (CMS/HCC) Class 3 severe obesity due to excess calories without serious comorbidity with body mass index (BMI) of 40.0 to 44.9 in adult ([facility]) Tobacco dependence Tobacco use disorder Bilateral lower extremity edema- Primary Tobacco dependence Tobacco use disorder BMI 40.0-44.9, adult ([facility]) COPD mixed type ([facility]) WINSOME (obstructive sleep apnea) Obstructive sleep apnea (adult) (pediatric) Encounter for subsequent annual wellness visit (AWV) in Medicare patient- Primary Edema of right lower extremity Anxiety and depression ([facility]) Tobacco dependence Tobacco use disorder BMI 40.0-44.9, adult ([facility]) Fibromyalgia Unspecified myalgia and myositis Primary hypertension ([facility]) Unspecified essential hypertension COPD mixed type ([facility]) Mixed hyperlipidemia ([facility]) Mixed hyperlipidemia documented in this encounter [facility] HealthcareEvaluation note* Diagnosis Primary hypertension ([facility])- Primary Unspecified essential hypertension Mixed hyperlipidemia (CMS/HCC) Mixed hyperlipidemia Fibromyalgia Unspecified myalgia and myositis Migraine without aura and without status migrainosus, not intractable ([facility]) Class 3 severe obesity due to excess calories without serious comorbidity with body mass index (BMI) of 40.0 to 44.9 in adult ([facility]) Tobacco dependence [...] right lower extremity- Primary BMI 40.0-44.9, adult ([facility]) Shortness of breath COPD mixed type (CMS/HCC) Primary hypertension (CMS/HCC) Unspecified essential hypertension Bilateral lower extremity edema Bilateral lower extremity edema- Primary Primary hypertension (CMS/HCC) Unspecified essential hypertension COPD mixed type (CMS/HCC) Class 3 severe obesity due to excess calories without serious comorbidity with body mass index (BMI) of 40.0 to 44.9 in adult ([facility]) Tobacco dependence Tobacco use disorder Bilateral lower extremity edema- Primary Tobacco dependence Tobacco use disorder BMI 40.0-44.9, adult ([facility]) COPD mixed type ([facility]) WINSOME (obstructive sleep apnea) Obstructive sleep apnea (adult) (pediatric) Encounter for subsequent annual wellness visit (AWV) in Medicare patient- Primary Edema of right lower extremity Anxiety and depression ([facility]) Tobacco dependence Tobacco use disorder BMI 40.0-44.9, adult ([facility]) Fibromyalgia Unspecified myalgia and myositis Primary hypertension ([facility]) Unspecified essential hypertension COPD mixed type ([facility]) Fibromyalgia Unspecified myalgia and myositis documented in this encounter [facility] Diagnosis Primary hypertension ([facility])- Primary Unspecified essential hypertension Mixed hyperlipidemia ([facility]) Mixed hyperlipidemia Fibromyalgia Unspecified myalgia and myositis Migraine without aura and without status migrainosus, not intractable ([facility]) Class 3 severe obesity due to excess calories without serious comorbidity with body mass index (BMI) of 40.0 to 44.9 in adult ([facility]) Tobacco dependence Tobacco use disorder Bilateral lower extremity edema Acute non-recurrent sinusitis of other sinus COPD mixed type (CMS/HCC) Open wound of second toe of left foot, initial encounter Open wound of left foot, initial encounter COPD mixed type (CMS/HCC)- Primary Tobacco dependence Tobacco use disorder BMI 40.0-44.9, adult ([facility]) Body mass index [BMI] 40.0-44.9, adult (Z68.41) Primary hypertension (CMS/HCC) Unspecified essential hypertension Bilateral lower extremity edema Edema of right lower extremity- Primary BMI 40.0-44.9, adult ([facility]) Shortness of breath COPD mixed type ([facility]) Primary hypertension (CMS/[facility]) Unspecified essential hypertension Bilateral lower extremity edema Bilateral lower extremity edema- Primary Primary hypertension ([facility]) Unspecified essential hypertension COPD mixed type (CMS/HCC) Class 3 severe obesity due to excess calories without serious comorbidity with body mass index (BMI) of 40.0 to 44.9 in adult ([facility]) Tobacco dependence Tobacco use disorder Bilateral lower extremity edema- Primary Tobacco dependence Tobacco use disorder BMI 40.0-44.9, adult ([facility]) COPD mixed type ([facility]) WINSOME (obstructive sleep apnea) Obstructive sleep apnea (adult) (pediatric) Encounter for subsequent annual wellness visit (AWV) in Medicare patient- Primary Edema of right lower extremity Anxiety and depression ([facility]) Tobacco dependence Tobacco use disorder BMI 40.0-44.9, adult ([facility]) Fibromyalgia Unspecified myalgia and myositis Primary hypertension ([facility]) Unspecified essential hypertension COPD mixed type ([facility]) WINSOME (obstructive sleep apnea)- Primary Obstructive sleep apnea (adult) (pediatric) COPD mixed type ([facility]) Primary hypertension ([facility]) Unspecified essential hypertension Fibromyalgia Unspecified myalgia and myositis BMI 40.0-44.9, adult ([facility]) Tobacco dependence Tobacco use disorder Mixed hyperlipidemia ([facility]) Mixed hyperlipidemia Vitamin D deficiency Vitamin B12 deficiency Other B-complex deficiencies COPD with acute exacerbation ([facility]) documented in this encounter [facility] Diagnosis Fibromyalgia Unspecified myalgia and myositis Gastro-esophageal reflux disease without esophagitis documented in this encounter [facility]* Diagnosis Primary hypertension ([facility])- Primary Unspecified essential hypertension Mixed hyperlipidemia ([facility]) Mixed hyperlipidemia Fibromyalgia Unspecified myalgia and myositis Migraine without aura and without status migrainosus, not intractable ([facility]) Class 3 severe obesity due to excess calories without serious comorbidity with body mass index (BMI) of 40.0 to 44.9 in adult ([facility]) Tobacco dependence Tobacco use disorder Bilateral lower extremity edema Acute non-recurrent sinusitis of other sinus COPD mixed type ([facility]/HCC) Open wound of second toe of left foot, initial encounter Open wound of left foot, initial encounter COPD mixed type ([facility]/HCC)- Primary Tobacco dependence Tobacco use disorder BMI 40.0-44.9, adult ([facility]) Body mass index [BMI] 40.0-44.9, adult (Z68.41) Primary hypertension ([facility]) Unspecified essential hypertension Bilateral lower extremity edema Edema of right lower extremity- Primary BMI 40.0-44.9, adult ([facility]) Shortness of breath COPD mixed type ([facility]) Primary hypertension ([facility]) Unspecified essential hypertension Bilateral lower extremity edema Bilateral lower extremity edema- Primary Primary hypertension ([facility]) Unspecified essential hypertension COPD mixed type ([facility]) Class 3 severe obesity due to excess calories without serious comorbidity with body mass index (BMI) of 40.0 to 44.9 in adult ([facility]) Tobacco dependence Tobacco use disorder Bilateral lower extremity edema- Primary Tobacco dependence Tobacco use disorder BMI 40.0-44.9, adult ([facility]) COPD mixed type ([facility]) WINSOME (obstructive sleep apnea) Obstructive sleep apnea (adult) (pediatric) Encounter for subsequent annual wellness visit (AWV) in Medicare patient- Primary Edema of right lower extremity Anxiety and depression ([facility]) Tobacco dependence Tobacco use disorder BMI 40.0-44.9, adult ([facility]) Fibromyalgia Unspecified myalgia and myositis Primary hypertension ([facility] Unspecified essential hypertension COPD mixed type ([facility]) WINSOME (obstructive sleep apnea)- Primary Obstructive sleep apnea (adult) (pediatric) COPD mixed type ([facility]) Primary hypertension ([facility]) Unspecified essential hypertension Fibromyalgia Unspecified myalgia and myositis BMI 40.0-44.9, adult ([facility]) Tobacco dependence Tobacco use disorder Mixed hyperlipidemia ([facility]) Mixed hyperlipidemia Vitamin D deficiency Vitamin B12 deficiency Other B-complex deficiencies COPD with acute exacerbation ([facility]) Fibromyalgia Unspecified myalgia and myositis documented in this encounter [facility]* Diagnosis Primary hypertension ([facility])- Primary Unspecified essential hypertension Mixed hyperlipidemia ([facility]) Mixed hyperlipidemia Fibromyalgia Unspecified myalgia and myositis Migraine without aura and without status migrainosus, not intractable ([facility]) Class 3 severe obesity due to excess calories without serious comorbidity with body mass index (BMI) of 40.0 to 44.9 in adult ([facility]) Tobacco dependence Tobacco use disorder Bilateral lower extremity edema Acute non-recurrent sinusitis of other sinus COPD mixed type (CMS/[facility]) Open wound of second toe of left foot, initial encounter Open wound of left foot, initial encounter COPD mixed type ([facility]/HCC)- Primary Tobacco dependence Tobacco use disorder BMI 40.0-44.9, adult ([facility]) Body mass index [BMI] 40.0-44.9, adult (Z68.41) Primary hypertension ([facility]) Unspecified essential hypertension Bilateral lower extremity edema Edema of right lower extremity- Primary BMI 40.0-44.9, adult ([facility]) Shortness of breath COPD mixed type ([facility]) Primary hypertension ([facility]) Unspecified essential hypertension Bilateral lower extremity edema Bilateral lower extremity edema- Primary Primary hypertension ([facility]) Unspecified essential hypertension COPD mixed type ([facility]) Class 3 severe obesity due to excess calories without serious comorbidity with body mass index (BMI) of 40.0 to 44.9 in adult ([facility]) Tobacco dependence Tobacco use disorder Bilateral lower extremity edema- Primary Tobacco dependence Tobacco use disorder BMI 40.0-44.9, adult ([facility]) COPD mixed type ([facility]) WINSOME (obstructive sleep apnea) Obstructive sleep apnea (adult) (pediatric) Encounter for subsequent annual wellness visit (AWV) in Medicare patient- Primary Edema of right lower extremity Anxiety and depression ([facility]) Tobacco dependence Tobacco use disorder BMI 40.0-44.9, adult ([facility]) Fibromyalgia Unspecified myalgia and myositis Primary hypertension ([facility] Unspecified essential hypertension COPD mixed type ([facility]) WINSOME (obstructive sleep apnea)- Primary Obstructive sleep apnea (adult) (pediatric) COPD mixed type ([facility]/HCC) Primary hypertension ([facility]) Unspecified essential hypertension Fibromyalgia Unspecified myalgia and myositis BMI 40.0-44.9, adult ([facility]) Tobacco dependence Tobacco use disorder Mixed hyperlipidemia ([facility]) Mixed hyperlipidemia Vitamin D deficiency Vitamin B12 deficiency Other B-complex deficiencies COPD with acute exacerbation ([facility] COPD with acute exacerbation ([facility])- Primary Morbid (severe) obesity due to excess calories ([facility]) Body mass index (BMI) 40.0-44.9, adult ([facility]) WINSOME (obstructive sleep apnea) Obstructive sleep apnea (adult) (pediatric) COPD mixed type ([facility]) Gastroesophageal reflux disease, unspecified whether esophagitis present Tobacco dependence Tobacco use disorder Gastro-esophageal reflux disease without esophagitis Tremor Abnormal involuntary movements documented in this encounter [facility]* Diagnosis Primary hypertension ([facility])- Primary Unspecified essential hypertension Mixed hyperlipidemia ([facility]) Mixed hyperlipidemia Fibromyalgia Unspecified myalgia and myositis Migraine without aura and without status migrainosus, not intractable ([facility]) Class 3 severe obesity due to excess calories without serious comorbidity with body mass index (BMI) of 40.0 to 44.9 in adult ([facility]) Tobacco dependence Tobacco use disorder Bilateral lower extremity edema Acute non-recurrent sinusitis of other sinus COPD mixed type ([facility]) Open wound of second toe of left foot, initial encounter Open wound of left foot, initial encounter COPD mixed type ([facility])- Primary Tobacco dependence Tobacco use disorder BMI 40.0-44.9, adult ([facility]) Body mass index [BMI] 40.0-44.9, adult (Z68.41) Primary hypertension ([facility]) Unspecified essential hypertension Bilateral lower extremity edema Edema of right lower extremity- Primary BMI 40.0-44.9, adult ([facility]) Shortness of breath COPD mixed type ([facility]) Primary hypertension ([facility]) Unspecified essential hypertension Bilateral lower extremity edema Bilateral lower extremity edema- Primary Primary hypertension ([facility]) Unspecified essential hypertension COPD mixed type ([facility]) Class 3 severe obesity due to excess calories without serious comorbidity with body mass index (BMI) of 40.0 to 44.9 in adult ([facility]) Tobacco dependence Tobacco use disorder Bilateral lower extremity edema- Primary Tobacco dependence Tobacco use disorder BMI 40.0-44.9, adult ([facility]) COPD mixed type ([facility]) WINSOME (obstructive sleep apnea) Obstructive sleep apnea (adult) (pediatric) Encounter for subsequent annual wellness visit (AWV) in Medicare patient- Primary Edema of right lower extremity Anxiety and depression ([facility]) Tobacco dependence Tobacco use disorder BMI 40.0-44.9, adult ([facility]) Fibromyalgia Unspecified myalgia and myositis Primary hypertension ([facility]) Unspecified essential hypertension COPD mixed type ([facility]) WINSOME (obstructive sleep apnea)- Primary Obstructive sleep apnea (adult) (pediatric) COPD mixed type ([facility]/HCC) Primary hypertension ([facility]) Unspecified essential hypertension Fibromyalgia Unspecified myalgia and myositis BMI 40.0-44.9, adult ([facility]) Tobacco dependence Tobacco use disorder Mixed hyperlipidemia ([facility]) Mixed hyperlipidemia Vitamin D deficiency Vitamin B12 deficiency Other B-complex deficiencies COPD with acute exacerbation ([facility]) COPD with acute exacerbation ([facility])- Primary Morbid (severe) obesity due to excess calories ([facility]) Body mass index (BMI) 40.0-44.9, adult ([facility]) WINSOME (obstructive sleep apnea) Obstructive sleep apnea (adult) (pediatric) COPD mixed type ([facility]) Gastroesophageal reflux disease, unspecified whether esophagitis present Tobacco dependence Tobacco use disorder Gastro-esophageal reflux disease without esophagitis Tremor Abnormal involuntary movements Drug-induced Parkinson's disease ([facility])- Primary Secondary Parkinsonism Tremor Abnormal involuntary movements documented in this encounter [facility]* Diagnosis Primary hypertension ([facility])- Primary Unspecified essential hypertension Mixed hyperlipidemia ([facility]) Mixed hyperlipidemia Fibromyalgia Unspecified myalgia and myositis Migraine without aura and without status migrainosus, not intractable ([facility]) Class 3 severe obesity due to excess calories without serious comorbidity with body mass index (BMI) of 40.0 to 44.9 in adult ([facility]) Tobacco dependence Tobacco use disorder Bilateral lower extremity edema Acute non-recurrent sinusitis of other sinus COPD mixed type ([facility]) Open wound of second toe of left foot, initial encounter Open wound of left foot, initial encounter COPD mixed type ([facility])- Primary Tobacco dependence Tobacco use disorder BMI 40.0-44.9, adult ([facility]) Body mass index [BMI] 40.0-44.9, adult (Z68.41) Primary hypertension ([facility]) Unspecified essential hypertension Bilateral lower extremity edema Edema of right lower extremity- Primary BMI 40.0-44.9, adult ([facility]) Shortness of breath COPD mixed type ([facility]) Primary hypertension ([facility]) Unspecified essential hypertension Bilateral lower extremity edema Bilateral lower extremity edema- Primary Primary hypertension ([facility]) Unspecified essential hypertension COPD mixed type ([facility]) Class 3 severe obesity due to excess calories without serious comorbidity with body mass index (BMI) of 40.0 to 44.9 in adult ([facility]) Tobacco dependence Tobacco use disorder Bilateral lower extremity edema- Primary Tobacco dependence Tobacco use disorder BMI 40.0-44.9, adult ([facility]) COPD mixed type ([facility]) WINSOME (obstructive sleep apnea) Obstructive sleep apnea (adult) (pediatric) Encounter for subsequent annual wellness visit (AWV) in Medicare patient- Primary Edema of right lower extremity Anxiety and depression ([facility]) Tobacco dependence Tobacco use disorder BMI 40.0-44.9, adult ([facility]) Fibromyalgia Unspecified myalgia and myositis Primary hypertension ([facility]) Unspecified essential hypertension COPD mixed type ([facility]) WINSOME (obstructive sleep apnea)- Primary Obstructive sleep apnea (adult) (pediatric) COPD mixed type ([facility]) Primary hypertension ([facility]) Unspecified essential hypertension Fibromyalgia Unspecified myalgia and myositis BMI 40.0-44.9, adult ([facility]) Tobacco dependence Tobacco use disorder Mixed hyperlipidemia ([facility]) Mixed hyperlipidemia Vitamin D deficiency Vitamin B12 deficiency Other B-complex deficiencies COPD with acute exacerbation ([facility]) COPD with acute exacerbation ([facility])- Primary Morbid (severe) obesity due to excess calories ([facility]) Body mass index (BMI) 40.0-44.9, adult ([facility]) WINSOME (obstructive sleep apnea) Obstructive sleep apnea (adult) (pediatric) COPD mixed type ([facility]) Gastroesophageal reflux disease, unspecified whether esophagitis present Tobacco dependence Tobacco use disorder Gastro-esophageal reflux disease without esophagitis Tremor Abnormal involuntary movements Fibromyalgia Unspecified myalgia and myositis Localized edema Edema Mixed hyperlipidemia ([facility]) Mixed hyperlipidemia documented in this encounter [facility]* Diagnosis Primary hypertension ([facility])- Primary Unspecified essential hypertension Mixed hyperlipidemia ([facility]) Mixed hyperlipidemia Fibromyalgia Unspecified myalgia and myositis Migraine without aura and without status migrainosus, not intractable ([facility]) Class 3 severe obesity due to excess calories without serious comorbidity with body mass index (BMI) of 40.0 to 44.9 in adult ([facility]) Tobacco dependence Tobacco use disorder Bilateral lower extremity edema Acute non-recurrent sinusitis of other sinus COPD mixed type ([facility]) Open wound of second toe of left foot, initial encounter Open wound of left foot, initial encounter COPD mixed type ([facility]/HCC)- Primary Tobacco dependence Tobacco use disorder BMI 40.0-44.9, adult ([facility]) Body mass index [BMI] 40.0-44.9, adult (Z68.41) Primary hypertension ([facility]) Unspecified essential hypertension Bilateral lower extremity edema Edema of right lower extremity- Primary BMI 40.0-44.9, adult ([facility]) Shortness of breath COPD mixed type ([facility]) Primary hypertension ([facility]) Unspecified essential hypertension Bilateral lower extremity edema Bilateral lower extremity edema- Primary Primary hypertension ([facility]) Unspecified essential hypertension COPD mixed type ([facility]) Class 3 severe obesity due to excess calories without serious comorbidity with body mass index (BMI) of 40.0 to 44.9 in adult ([facility]) Tobacco dependence Tobacco use disorder Bilateral lower extremity edema- Primary Tobacco dependence Tobacco use disorder BMI 40.0-44.9, adult ([facility]) COPD mixed type ([facility]) WINSOME (obstructive sleep apnea) Obstructive sleep apnea (adult) (pediatric) Encounter for subsequent annual wellness visit (AWV) in Medicare patient- Primary Edema of right lower extremity Anxiety and depression ([facility]) Tobacco dependence Tobacco use disorder BMI 40.0-44.9, adult ([facility]) Fibromyalgia Unspecified myalgia and myositis Primary hypertension ([facility]) Unspecified essential hypertension COPD mixed type ([facility]) WINSOME (obstructive sleep apnea)- Primary Obstructive sleep apnea (adult) (pediatric) COPD mixed type ([facility]) Primary hypertension ([facility]) Unspecified essential hypertension Fibromyalgia Unspecified myalgia and myositis BMI 40.0-44.9, adult ([facility]) Tobacco dependence Tobacco use disorder Mixed hyperlipidemia ([facility]) Mixed hyperlipidemia Vitamin D deficiency Vitamin B12 deficiency Other B-complex deficiencies COPD with acute exacerbation ([facility]) COPD with acute exacerbation ([facility])- Primary Morbid (severe) obesity due to excess calories ([facility]) Body mass index (BMI) 40.0-44.9, adult ([facility]) WINSOME (obstructive sleep apnea) Obstructive sleep apnea (adult) (pediatric) COPD mixed type (CMS/HCC) Gastroesophageal reflux disease, unspecified whether esophagitis present Tobacco dependence Tobacco use disorder Gastro-esophageal reflux disease without esophagitis Tremor Abnormal involuntary movements Environmental and seasonal allergies- Primary COPD mixed type (CMS/HCC) documented in this encounter [facility] HealthcareEvaluation note* Diagnosis Primary hypertension (CMS/HCC)- Primary [...] Unspecified myalgia and myositis BMI 40.0-44.9, adult ([facility]) Tobacco dependence Tobacco use disorder Mixed hyperlipidemia (CMS/HCC) Mixed hyperlipidemia Vitamin D deficiency Vitamin B12 deficiency Other B-complex deficiencies COPD with acute exacerbation (CMS/HCC) COPD with acute exacerbation ([facility])- Primary Morbid (severe) obesity due to excess calories (CMS/[facility]) Body mass index (BMI) 40.0-44.9, adult ([facility]) WINSOME (obstructive sleep apnea) Obstructive sleep apnea (adult) (pediatric) COPD mixed type (CMS/HCC) Gastroesophageal reflux disease, unspecified whether esophagitis present Tobacco dependence Tobacco use disorder Gastro-esophageal reflux disease without esophagitis Tremor Abnormal involuntary movements Fibromyalgia Unspecified myalgia and myositis documented in this encounter [facility] HealthcareEvaluation note* Diagnosis Primary hypertension ([facility])- Primary Unspecified essential hypertension Mixed hyperlipidemia ([facility]) Mixed hyperlipidemia Fibromyalgia Unspecified myalgia and myositis Migraine without aura and without status migrainosus, not intractable ([facility]) Class 3 [...] dependence Tobacco use disorder BMI 40.0-44.9, adult ([facility]) Body mass [...] dependence Tobacco use disorder BMI 40.0-44.9, adult ([facility]) COPD mixed type ([facility]) WINSOME (obstructive sleep apnea) Obstructive sleep apnea (adult) (pediatric) Encounter for subsequent annual wellness visit (AWV) in Medicare patient- Primary Edema of right lower extremity Anxiety and depression ([facility]) Tobacco dependence Tobacco use disorder BMI 40.0-44.9, adult ([facility]) Fibromyalgia Unspecified myalgia and myositis Primary hypertension ([facility]) Unspecified essential hypertension COPD mixed type ([facility]) WINSOME (obstructive sleep apnea)- Primary Obstructive sleep apnea (adult) (pediatric) COPD mixed type ([facility]) Primary hypertension ([facility]) Unspecified essential hypertension Fibromyalgia Unspecified myalgia and myositis BMI 40.0-44.9, adult ([facility]) Tobacco dependence Tobacco use disorder Mixed hyperlipidemia ([facility]) Mixed hyperlipidemia Vitamin D deficiency Vitamin B12 deficiency Other B-complex deficiencies COPD with acute exacerbation ([facility]) COPD with acute exacerbation ([facility])- Primary Morbid (severe) obesity due to excess calories ([facility]) Body mass index (BMI) 40.0-44.9, adult ([facility]) WINSOME (obstructive sleep apnea) Obstructive sleep apnea (adult) (pediatric) COPD mixed type ([facility]) Gastroesophageal reflux disease, unspecified whether esophagitis present Tobacco dependence Tobacco use disorder Gastro-esophageal reflux disease without esophagitis Tremor Abnormal involuntary movements Mixed hyperlipidemia ([facility]) Mixed hyperlipidemia documented in this encounter [facility] HealthcareEvaluation note* Diagnosis Primary hypertension ([facility])- Primary Unspecified essential hypertension Mixed hyperlipidemia ([facility]) Mixed hyperlipidemia Fibromyalgia Unspecified myalgia and myositis Migraine without aura and without status migrainosus, not intractable ([facility]) Class 3 severe obesity due to excess calories without serious comorbidity with body mass index (BMI) of 40.0 to 44.9 in adult Tobacco dependence Tobacco use disorder Bilateral lower extremity edema Acute non-recurrent sinusitis of other sinus COPD mixed type ([facility]) Open wound of second toe of left foot, initial encounter Open wound of left foot, initial encounter COPD mixed type ([facility])- Primary Tobacco dependence Tobacco use disorder BMI 40.0-44.9, adult ([facility]) Body mass index [BMI] 40.0-44.9, adult (Z68.41) Primary hypertension (CMS/HCC) Unspecified essential hypertension Bilateral lower extremity edema Edema of right lower extremity- Primary BMI 40.0-44.9, adult ([facility]/HCC) Shortness of breath COPD mixed type [...] dependence Tobacco use disorder BMI 40.0-44.9, adult ([facility]/HCC) COPD mixed type ([facility]/HCC) WINSOME (obstructive sleep apnea) Obstructive sleep apnea (adult) (pediatric) Encounter for subsequent annual wellness visit (AWV) in Medicare patient- Primary Edema of right lower extremity Anxiety and depression ([facility]) Tobacco dependence Tobacco use disorder BMI 40.0-44.9, adult ([facility]) Fibromyalgia Unspecified myalgia and myositis Primary hypertension ([facility]/HCC) Unspecified essential hypertension COPD mixed type (CMS/HCC) WINSOME (obstructive sleep apnea)- Primary Obstructive sleep apnea (adult) (pediatric) COPD mixed type (CMS/HCC) Primary hypertension ([facility]/HCC) Unspecified essential hypertension Fibromyalgia Unspecified myalgia and myositis BMI 40.0-44.9, adult ([facility]) Tobacco dependence Tobacco use disorder Mixed hyperlipidemia ([facility]) Mixed hyperlipidemia Vitamin D deficiency Vitamin B12 deficiency Other B-complex deficiencies COPD with acute exacerbation ([facility]) COPD with acute exacerbation ([facility])- Primary Morbid (severe) obesity due to excess calories ([facility]) Body mass index (BMI) 40.0-44.9, adult ([facility]) WINSOME (obstructive sleep apnea) Obstructive sleep apnea (adult) (pediatric) COPD mixed type ([facility]/HCC) Gastroesophageal reflux disease, unspecified whether esophagitis present Tobacco dependence Tobacco use disorder Gastro-esophageal reflux disease without esophagitis Tremor Abnormal involuntary movements Tobacco dependence- Primary Tobacco use disorder documented in this encounter [facility] HealthcareEvaluation note* Diagnosis Primary hypertension ([facility])- Primary Unspecified essential hypertension Mixed hyperlipidemia ([facility]) Mixed hyperlipidemia Fibromyalgia Unspecified myalgia and myositis Migraine without aura and without status migrainosus, not intractable ([facility]/HCC) Class 3 severe obesity due to [...] right lower extremity- Primary BMI 40.0-44.9, adult ([facility]) Shortness of [...] dependence Tobacco use disorder BMI 40.0-44.9, adult ([facility]) COPD mixed type ([facility]) WINSOME (obstructive sleep apnea) Obstructive sleep apnea (adult) (pediatric) Encounter for subsequent annual wellness visit (AWV) in Medicare patient- Primary Edema of right lower extremity Anxiety and depression ([facility]) Tobacco dependence Tobacco use disorder BMI 40.0-44.9, adult ([facility]) Fibromyalgia Unspecified myalgia and myositis Primary hypertension (CMS/HCC) Unspecified essential hypertension COPD mixed type (CMS/HCC) WINSOME (obstructive sleep apnea)- Primary Obstructive sleep apnea (adult) (pediatric) COPD mixed type (CMS/HCC) Primary hypertension (CMS/HCC) Unspecified essential hypertension Fibromyalgia Unspecified myalgia and myositis BMI 40.0-44.9, adult ([facility]) Tobacco dependence Tobacco use disorder Mixed hyperlipidemia ([facility]) Mixed hyperlipidemia Vitamin D deficiency Vitamin B12 deficiency Other B-complex deficiencies COPD with acute exacerbation (CMS/[facility]) COPD with acute exacerbation ([facility])- Primary Morbid (severe) obesity due to excess calories (CMS/[facility]) Body mass index (BMI) 40.0-44.9, adult ([facility]) WINSOME (obstructive sleep apnea) Obstructive sleep apnea (adult) (pediatric) COPD mixed type ([facility]) Gastroesophageal reflux disease, unspecified whether esophagitis present Tobacco dependence Tobacco use disorder Gastro-esophageal reflux disease without esophagitis Tremor Abnormal involuntary movements Fibromyalgia Unspecified myalgia and myositis documented in this encounter [facility] HealthcareEvaluation note* Diagnosis Primary hypertension- Primary Unspecified essential hypertension Mixed hyperlipidemia Mixed hyperlipidemia Fibromyalgia Unspecified myalgia and myositis Migraine without aura and without status migrainosus, not intractable Class 3 severe obesity due to excess calories without serious comorbidity with body mass index (BMI) of 40.0 to 44.9 in adult ([facility]) Tobacco dependence Tobacco use disorder Bilateral lower extremity edema Acute non-recurrent sinusitis of other sinus COPD mixed type ([facility]) Open wound of second toe of left foot, initial encounter Open wound of left foot, initial encounter COPD mixed type (HCC)- Primary Tobacco dependence Tobacco use disorder BMI 40.0-44.9, adult ([facility]) Body mass index [BMI] 40.0-44.9, adult (Z68.41) Primary hypertension Unspecified essential hypertension Bilateral lower extremity edema Edema of right lower extremity- Primary BMI 40.0-44.9, adult ([facility]) Shortness of breath COPD mixed type (HCC) Primary hypertension Unspecified essential hypertension Bilateral lower extremity edema Bilateral lower extremity edema- Primary Primary hypertension Unspecified essential hypertension COPD mixed type (HCC) Class 3 severe obesity due to excess calories without serious comorbidity with body mass index (BMI) of 40.0 to 44.9 in adult ([facility]) Tobacco dependence Tobacco use disorder Bilateral lower extremity edema- Primary Tobacco dependence Tobacco use disorder BMI 40.0-44.9, adult ([facility]) COPD mixed type ([facility]) WINSOME (obstructive sleep apnea) Obstructive sleep apnea (adult) (pediatric) Encounter for subsequent annual wellness visit (AWV) in Medicare patient- Primary Edema of right lower extremity Anxiety and depression Tobacco dependence Tobacco use disorder BMI 40.0-44.9, adult ([facility]) Fibromyalgia Unspecified myalgia and myositis Primary hypertension Unspecified essential hypertension COPD mixed type (HCC) WINSOME (obstructive sleep apnea)- Primary Obstructive sleep apnea (adult) (pediatric) COPD mixed type (HCC) Primary hypertension Unspecified essential hypertension Fibromyalgia Unspecified myalgia and myositis BMI 40.0-44.9, adult ([facility]) Tobacco dependence Tobacco use disorder Mixed hyperlipidemia Mixed hyperlipidemia Vitamin D deficiency Vitamin B12 deficiency Other B-complex deficiencies COPD with acute exacerbation (HCC) COPD with acute exacerbation (HCC)- Primary Morbid (severe) obesity due to excess calories ([facility]) Body mass index (BMI) 40.0-44.9, adult ([facility]) WINSOME (obstructive sleep apnea) Obstructive sleep apnea (adult) (pediatric) COPD mixed type (HCC) Gastroesophageal reflux disease, unspecified whether esophagitis present Tobacco dependence Tobacco use disorder Gastro-esophageal reflux disease without esophagitis Tremor Abnormal involuntary movements Encounter for subsequent annual wellness visit (AWV) in Medicare patient- Primary Chronic kidney disease, stage 3a ([facility]) WINSOME (obstructive sleep apnea) Obstructive sleep apnea [...] (BMI) of 40.0 to 44.9 in adult ([facility]) Tobacco dependence Tobacco use disorder Bilateral lower extremity edema Acute non-recurrent sinusitis of other sinus COPD mixed type ([facility]) Open wound of second toe of left foot, initial encounter Open wound of left foot, initial encounter COPD mixed type (HCC)- Primary Tobacco dependence Tobacco use disorder BMI 40.0-44.9, adult ([facility]) Body mass index [BMI] 40.0-44.9, adult (Z68.41) Primary hypertension Unspecified essential hypertension Bilateral lower extremity edema Edema of right lower extremity- Primary BMI 40.0-44.9, adult ([facility]) Shortness of breath COPD mixed type ([facility]) Primary hypertension Unspecified essential hypertension Bilateral lower extremity edema Bilateral lower extremity edema- Primary Primary hypertension Unspecified essential hypertension COPD mixed type (HCC) Class 3 severe obesity due to excess calories without serious comorbidity with body mass index (BMI) of 40.0 to 44.9 in adult ([facility]) Tobacco dependence Tobacco use disorder Bilateral lower extremity edema- Primary Tobacco dependence Tobacco use disorder BMI 40.0-44.9, adult ([facility]) COPD mixed type (HCC) WINSOME (obstructive sleep apnea) Obstructive sleep apnea (adult) (pediatric) Encounter for subsequent annual wellness visit (AWV) in Medicare patient- Primary Edema of right lower extremity Anxiety and depression Tobacco dependence Tobacco use disorder BMI 40.0-44.9, adult ([facility]) Fibromyalgia Unspecified myalgia and myositis Primary hypertension Unspecified essential hypertension COPD mixed type (HCC) WINSOME (obstructive sleep apnea)- Primary Obstructive sleep apnea (adult) (pediatric) COPD mixed type (HCC) Primary hypertension Unspecified essential hypertension Fibromyalgia Unspecified myalgia and myositis BMI 40.0-44.9, adult ([facility]) Tobacco dependence Tobacco use disorder Mixed hyperlipidemia Mixed hyperlipidemia Vitamin D deficiency Vitamin B12 deficiency Other B-complex deficiencies COPD with acute exacerbation (HCC) COPD with acute exacerbation (HCC)- Primary Morbid (severe) obesity due to excess calories ([facility]) Body mass index (BMI) 40.0-44.9, adult ([facility]) WINSOME (obstructive sleep apnea) Obstructive sleep apnea (adult) (pediatric) COPD mixed type (HCC) Gastroesophageal reflux disease, unspecified whether esophagitis present Tobacco dependence Tobacco use disorder Gastro-esophageal reflux disease without esophagitis Tremor Abnormal involuntary movements Encounter for subsequent annual wellness visit (AWV) in Medicare patient- Primary Chronic kidney disease, stage 3a ([facility]) WINSOME (obstructive sleep apnea) Obstructive sleep apnea [...] (BMI) of 40.0 to 44.9 in adult ([facility]) Tobacco dependence Tobacco use disorder Bilateral lower extremity edema Acute non-recurrent sinusitis of other sinus COPD mixed type (HCC) Open wound of second toe of left foot, initial encounter Open wound of left foot, initial encounter COPD mixed type (HCC)- Primary Tobacco dependence Tobacco use disorder BMI 40.0-44.9, adult ([facility]) Body mass index [BMI] 40.0-44.9, adult (Z68.41) Primary hypertension Unspecified essential hypertension Bilateral lower extremity edema Edema of right lower extremity- Primary BMI 40.0-44.9, adult ([facility]) Shortness of breath COPD mixed type (HCC) Primary hypertension Unspecified essential hypertension Bilateral lower extremity edema Bilateral lower extremity edema- Primary Primary hypertension Unspecified essential hypertension COPD mixed type (HCC) Class 3 severe obesity due to excess calories without serious comorbidity with body mass index (BMI) of 40.0 to 44.9 in adult ([facility]) Tobacco dependence Tobacco use disorder Bilateral lower extremity edema- Primary Tobacco dependence Tobacco use disorder BMI 40.0-44.9, adult ([facility]) COPD mixed type ([facility]) WINSOME (obstructive sleep apnea) Obstructive sleep apnea (adult) (pediatric) Encounter for subsequent annual wellness visit (AWV) in Medicare patient- Primary Edema of right lower extremity Anxiety and depression Tobacco dependence Tobacco use disorder BMI 40.0-44.9, adult ([facility]) Fibromyalgia Unspecified myalgia and myositis Primary hypertension Unspecified essential hypertension COPD mixed type (HCC) WINSOME (obstructive sleep apnea)- Primary Obstructive sleep apnea (adult) (pediatric) COPD mixed type (HCC) Primary hypertension Unspecified essential hypertension Fibromyalgia Unspecified myalgia and myositis BMI 40.0-44.9, adult ([facility]) Tobacco dependence Tobacco use disorder Mixed hyperlipidemia Mixed hyperlipidemia Vitamin D deficiency Vitamin B12 deficiency Other B-complex deficiencies COPD with acute exacerbation (HCC) COPD with acute exacerbation (HCC)- Primary Morbid (severe) obesity due to excess calories ([facility]) Body mass index (BMI) 40.0-44.9, adult ([facility]) WINSOME (obstructive sleep apnea) Obstructive sleep apnea (adult) (pediatric) COPD mixed type (HCC) Gastroesophageal reflux disease, unspecified whether esophagitis present Tobacco dependence Tobacco use disorder Gastro-esophageal reflux disease without esophagitis Tremor Abnormal involuntary movements Encounter for subsequent annual wellness visit (AWV) in Medicare patient- Primary Chronic kidney disease, stage 3a ([facility]) WINSOME (obstructive sleep apnea) Obstructive sleep apnea [...] unspecified laterality- Primary documented in this encounter [facility] HealthcareEvaluation note* Diagnosis Primary hypertension- Primary Unspecified essential hypertension Mixed hyperlipidemia Mixed hyperlipidemia Fibromyalgia Unspecified myalgia and myositis Migraine without aura and without status migrainosus, not intractable Class 3 severe obesity due to excess calories without serious comorbidity with body mass index (BMI) of 40.0 to 44.9 in adult ([facility]) Tobacco dependence Tobacco use disorder Bilateral lower extremity edema Acute non-recurrent sinusitis of other sinus COPD mixed type ([facility]) Open wound of second toe of left foot, initial encounter Open wound of left foot, initial encounter COPD mixed type (HCC)- Primary Tobacco dependence Tobacco use disorder BMI 40.0-44.9, adult ([facility]) Body mass index [BMI] 40.0-44.9, adult (Z68.41) Primary hypertension Unspecified essential hypertension Bilateral lower extremity edema Edema of right lower extremity- Primary BMI 40.0-44.9, adult ([facility]) Shortness of breath COPD mixed type ([facility]) Primary hypertension Unspecified essential hypertension Bilateral lower extremity edema Bilateral lower extremity edema- Primary Primary hypertension Unspecified essential hypertension COPD mixed type (HCC) Class 3 severe obesity due to excess calories without serious comorbidity with body mass index (BMI) of 40.0 to 44.9 in adult ([facility]) Tobacco dependence Tobacco use disorder Bilateral lower extremity edema- Primary Tobacco dependence Tobacco use disorder BMI 40.0-44.9, adult ([facility]) COPD mixed type (HCC) WINSOME (obstructive sleep apnea) Obstructive sleep apnea (adult) (pediatric) Encounter for subsequent annual wellness visit (AWV) in Medicare patient- Primary Edema of right lower extremity Anxiety and depression Tobacco dependence Tobacco use disorder BMI 40.0-44.9, adult ([facility]) Fibromyalgia Unspecified myalgia and myositis Primary hypertension Unspecified essential hypertension COPD mixed type ([facility]) WINSOME (obstructive sleep apnea)- Primary Obstructive sleep apnea (adult) (pediatric) COPD mixed type (HCC) Primary hypertension Unspecified essential hypertension Fibromyalgia Unspecified myalgia and myositis BMI 40.0-44.9, adult ([facility]) Tobacco dependence Tobacco use disorder Mixed hyperlipidemia Mixed hyperlipidemia Vitamin D deficiency Vitamin B12 deficiency Other B-complex deficiencies COPD with acute exacerbation (HCC) COPD with acute exacerbation (HCC)- Primary Morbid (severe) obesity due to excess calories ([facility]) Body mass index (BMI) 40.0-44.9, adult ([facility]) WINSOME (obstructive sleep apnea) Obstructive sleep apnea (adult) (pediatric) COPD mixed type (HCC) Gastroesophageal reflux disease, unspecified whether esophagitis present Tobacco dependence Tobacco use disorder Gastro-esophageal reflux disease without esophagitis Tremor Abnormal involuntary movements Encounter for subsequent annual wellness visit (AWV) in Medicare patient- Primary Chronic kidney disease, stage 3a ([facility]) WINSOME (obstructive sleep apnea) Obstructive sleep apnea [...] Tobacco use disorder documented in this encounter [facility] HealthcareEvaluation note* Diagnosis Primary hypertension- Primary Unspecified essential hypertension Mixed hyperlipidemia Mixed hyperlipidemia Fibromyalgia Unspecified myalgia and myositis Migraine without aura and without status migrainosus, not intractable Class 3 severe obesity due to excess calories without serious comorbidity with body mass index (BMI) of 40.0 to 44.9 in adult ([facility]) Tobacco dependence Tobacco use disorder Bilateral lower extremity edema Acute non-recurrent sinusitis of other sinus COPD mixed type ([facility]) Open wound of second toe of left foot, initial encounter Open wound of left foot, initial encounter COPD mixed type (HCC)- Primary Tobacco dependence Tobacco use disorder BMI 40.0-44.9, adult ([facility]) Body mass index [BMI] 40.0-44.9, adult (Z68.41) Primary hypertension Unspecified essential hypertension Bilateral lower extremity edema Edema of right lower extremity- Primary BMI 40.0-44.9, adult ([facility]) Shortness of breath COPD mixed type ([facility]) Primary hypertension Unspecified essential hypertension Bilateral lower extremity edema Bilateral lower extremity edema- Primary Primary hypertension Unspecified essential hypertension COPD mixed type (HCC) Class 3 severe obesity due to excess calories without serious comorbidity with body mass index (BMI) of 40.0 to 44.9 in adult ([facility]) Tobacco dependence Tobacco use disorder Bilateral lower extremity edema- Primary Tobacco dependence Tobacco use disorder BMI 40.0-44.9, adult ([facility]) COPD mixed type ([facility]) WINSOME (obstructive sleep apnea) Obstructive sleep apnea (adult) (pediatric) Encounter for subsequent annual wellness visit (AWV) in Medicare patient- Primary Edema of right lower extremity Anxiety and depression Tobacco dependence Tobacco use disorder BMI 40.0-44.9, adult ([facility]) Fibromyalgia Unspecified myalgia and myositis Primary hypertension Unspecified essential hypertension COPD mixed type ([facility]) WINSOME (obstructive sleep apnea)- Primary Obstructive sleep apnea (adult) (pediatric) COPD mixed type ([facility]) Primary hypertension Unspecified essential hypertension Fibromyalgia Unspecified myalgia and myositis BMI 40.0-44.9, adult ([facility]) Tobacco dependence Tobacco use disorder Mixed hyperlipidemia Mixed hyperlipidemia Vitamin D deficiency Vitamin B12 deficiency Other B-complex deficiencies COPD with acute exacerbation (HCC) COPD with acute exacerbation (HCC)- Primary Morbid (severe) obesity due to excess calories ([facility]) Body mass index (BMI) 40.0-44.9, adult ([facility]) WINSOME (obstructive sleep apnea) Obstructive sleep apnea (adult) (pediatric) COPD mixed type (HCC) Gastroesophageal reflux disease, unspecified whether esophagitis present Tobacco dependence Tobacco use disorder Gastro-esophageal reflux disease without esophagitis Tremor Abnormal involuntary movements Encounter for subsequent annual wellness visit (AWV) in Medicare patient- Primary Chronic kidney disease, stage 3a ([facility]) WINSOME (obstructive sleep apnea) Obstructive sleep apnea [...] unspecified laterality- Primary documented in this encounter [facility] HealthcareEvaluation note* Diagnosis Primary hypertension- Primary Unspecified essential hypertension Mixed hyperlipidemia Mixed hyperlipidemia Fibromyalgia Unspecified myalgia and myositis Migraine without aura and without status migrainosus, not intractable Class 3 severe obesity due to excess calories without serious comorbidity with body mass index (BMI) of 40.0 to 44.9 in adult ([facility]) Tobacco dependence Tobacco use disorder Bilateral lower extremity edema Acute non-recurrent sinusitis of other sinus COPD mixed type (HCC) Open wound of second toe of left foot, initial encounter Open wound of left foot, initial encounter COPD mixed type (HCC)- Primary Tobacco dependence Tobacco use disorder BMI 40.0-44.9, adult ([facility]) Body mass index [BMI] 40.0-44.9, adult (Z68.41) Primary hypertension Unspecified essential hypertension Bilateral lower extremity edema Edema of right lower extremity- Primary BMI 40.0-44.9, adult ([facility]) Shortness of breath COPD mixed type (HCC) Primary hypertension Unspecified essential hypertension Bilateral lower extremity edema Bilateral lower extremity edema- Primary Primary hypertension Unspecified essential hypertension COPD mixed type (HCC) Class 3 severe obesity due to excess calories without serious comorbidity with body mass index (BMI) of 40.0 to 44.9 in adult ([facility]) Tobacco dependence Tobacco use disorder Bilateral lower extremity edema- Primary Tobacco dependence Tobacco use disorder BMI 40.0-44.9, adult ([facility]) COPD mixed type (HCC) WINSOME (obstructive sleep apnea) Obstructive sleep apnea (adult) (pediatric) Encounter for subsequent annual wellness visit (AWV) in Medicare patient- Primary Edema of right lower extremity Anxiety and depression Tobacco dependence Tobacco use disorder BMI 40.0-44.9, adult ([facility]) Fibromyalgia Unspecified myalgia and myositis Primary hypertension Unspecified essential hypertension COPD mixed type (HCC) WINSOME (obstructive sleep apnea)- Primary Obstructive sleep apnea (adult) (pediatric) COPD mixed type (HCC) Primary hypertension Unspecified essential hypertension Fibromyalgia Unspecified myalgia and myositis BMI 40.0-44.9, adult ([facility]) Tobacco dependence Tobacco use disorder Mixed hyperlipidemia Mixed hyperlipidemia Vitamin D deficiency Vitamin B12 deficiency Other B-complex deficiencies COPD with acute exacerbation (HCC) COPD with acute exacerbation (HCC)- Primary Morbid (severe) obesity due to excess calories ([facility]) Body mass index (BMI) 40.0-44.9, adult ([facility]) WINSOME (obstructive sleep apnea) Obstructive sleep apnea (adult) (pediatric) COPD mixed type (HCC) Gastroesophageal reflux disease, unspecified whether esophagitis present Tobacco dependence Tobacco use disorder Gastro-esophageal reflux disease without esophagitis Tremor Abnormal involuntary movements Encounter for subsequent annual wellness visit (AWV) in Medicare patient- Primary Chronic kidney disease, stage 3a ([facility]) WINSOME (obstructive sleep apnea) Obstructive sleep apnea [...] data available for this section [facility] [place] Progress note No data available for this section [facility] [place] Reason for visit Narrative* Consultation (Routine) - Closed Specialty Diagnoses / Procedures Referred By Jose williamson Referred To Contact Neurology Diagnoses Tremor Procedures VA OFFICE/OUTPATIENT NEW HIGH MDM 60 MINUTES Jaymie Phoenix NP [address] [place] [address] Phone: tel: fax: Saumya Back DO [address] [place] [id number] Phone: tel: fax: Referral ID Status Reason Start Date Expiration Date V isits Requested Visits Authorized [id number] Closed Specialty Services Required 02/10/2024 08/08/2024 1 [...] Jaymie Phoenix NP [address] [place] [address] Referral ID Status Reason Start Date Expiration Date V isits Requested Visits Authorized [id number] Authorized 03/25/2023 09/21/2023 1 1 Additional Source Comments INFORMATION SOURCE (unrecogn ized section and content) DATE CREATED AUTHOR 12/26/2021 [facility] dical Specialist DATE CREATED AUTHOR AUTHOR'S ORGANIZ ATION 03/25/2022 [facility] DATE CREATED AUTHOR AUTHOR'S ORGANIZ ATION 07/17/2022 [facility] DATE CREATED AUTHOR AUTHOR'S ORGANIZ ATION 08/31/2024 [facility] DATE CREATED AUTHOR AUTHOR'S ORGANIZ ATION 09/02/2024 [facility] dical Specialists EPIC Patient Care team informatio n (unrecognized section and content) [employer] Relationship Specialty Start Date End Date Jaymie Phoenix NP [address] [place] [address] Nurse Practitioner Family Medicine 01/26/23 [employer] Relationship Specialty Start Date End Date Shaikh Marquez MD [address] [place] [address] PCP - General Internal Medicine 03/25/23 Jaymie Phoenix NP [address] [place] [address] Nurse Practitioner Family Medicine 01/26/23 [employer]ucker Relationship Specialty Start Date End Date Shaikh Marquez MD [address] [place] [address] PCP - General Internal Medicine 03/25/23 Jaymie Phoenix NP [address] [place] [address] Nurse Practitioner Family Medicine 01/26/23 Potato Bucker Relationship Specialty Start Date End Date Rohan Rodríguez MD [address] [place] [address] PCP - General Family Medicine 05/13/23 Jaymie Phoenix NP [address] [place] [address] Nurse Practitioner Family Medicine 01/26/23 Jaymie Phoenix NP [address] [place] [address] Nurse Practitioner Family Medicine 05/13/23 Potato Bucker Relationship Specialty Start Date End Date Rohan Rodríguez MD [address] [place] [address] PCP - General Family Medicine 05/13/23 Jaymie Phoenix NP [address] [place] [address] Nurse Practitioner Family Medicine 01/26/23 Jaymie Phoenix NP [address] [place] [address] Nurse Practitioner Family Medicine 05/13/23 Potato Bucker Relationship Specialty Start Date End Date Rohan Rodríguez MD [address] [place] [address] PCP - General Family Medicine 05/13/23 Jaymie Phoenix NP [address] [place] [address] Nurse Practitioner Family Medicine 01/26/23 Jaymie Phoenix NP [address] [place] [address] Nurse Practitioner Family Medicine 05/13/23 Potato Bucker Relationship Specialty Start Date End Date Rohan Rodríguez MD [address] [place] [address] PCP - General Family Medicine 05/13/23 Jaymie Phoenix NP [address] [place] [address] Nurse Practitioner Family Medicine 01/26/23 Jaymie Phoenix NP [address] [place] [address] Nurse Practitioner Family Medicine 05/13/23 Potato Bucker Relationship Specialty Start Date End Date Rohan Rodríguez MD [address] [place] [address] PCP - General Family Medicine 05/13/23 Jaymie Phoenix NP [address] [place] [address] Nurse Practitioner Family Medicine 01/26/23 Jaymie Phoenix NP [address] [place] [address] Nurse Practitioner Family Medicine 05/13/23 Potato Bucker Relationship Specialty Start Date End Date Rohan Rodríguez MD [address] [place] [address] PCP - General Family Medicine 05/13/23 Jaymie Phoenix NP [address] [place] [address] Nurse Practitioner Family Medicine 01/26/23 Jaymie Phoenix NP [address] [place] [address] Nurse Practitioner Family Medicine 05/13/23 Potato Bucker Relationship Specialty Start Date End Date Rohan Rodríguez MD [address] [place] [address] PCP - General Family Medicine 05/13/23 Jaymie Phoenix NP [address] [place] [address] Nurse Practitioner Family Medicine 01/26/23 Jaymie Phoenix NP [address] [place] [address] Nurse Practitioner Family Medicine 05/13/23 Potato Bucker Relationship Specialty Start Date End Date Rohan Rodríguez MD [address] [place] [address] PCP - General Family Medicine 05/13/23 Jaymie Phoenix NP [address] [place] [address] Nurse Practitioner Family Medicine 01/26/23 Jaymie Phoenix NP [address] [place] [address] Nurse Practitioner Family Medicine 05/13/23 Potato Bucker Relationship Specialty Start Date End Date Rohan Rodríguez MD [address] [place] [address] PCP - General Family Medicine 05/13/23 Jaymie Phoenix NP [address] [place] [address] Nurse Practitioner Family Medicine 01/26/23 Jaymie Phoenix NP [address] [place] [address] Nurse Practitioner Family Medicine 05/13/23 Potato Bucker Relationship Specialty Start Date End Date Rohan Rodríguez MD [address] [place] [address] PCP - General Family Medicine 05/13/23 Jaymie Phoenix NP [address] [place] [address] Nurse Practitioner Family Medicine 01/26/23 Jaymie Phoenix NP [address] [place] [address] Nurse Practitioner Family Medicine 05/13/23 Potato Bucker Relationship Specialty Start Date End Date Rohan Rodríguez MD [address] [place] [address] PCP - General Family Medicine 05/13/23 Jaymie Phoenix NP [address] [place] [address] Nurse Practitioner Family Medicine 01/26/23 Jaymie Phoenix NP [address] [place] [address] Nurse Practitioner Family Medicine 05/13/23 Potato Bucker Relationship Specialty Start Date End Date Rohan Rodríguez MD [address] [place] [address] PCP - General Family Medicine 05/13/23 Jaymie Phoenix NP [address] [place] [address] Nurse Practitioner Family Medicine 01/26/23 Jaymie Phoenix NP [address] [place] [address] Nurse Practitioner Family Medicine 05/13/23 Potato Bucker Relationship Specialty Start Date End Date Rohan Rodríguez MD [address] [place] [address] PCP - General Family Medicine 05/13/23 Jaymie Phoenix NP [address] [place] [address] Nurse Practitioner Family Medicine 01/26/23 Jaymie Phoenix NP [address] [place] [address] Nurse Practitioner Family Medicine 05/13/23 Potato Bucker Relationship Specialty Start Date End Date Rohan Rodríguez MD [address] [place] [address] PCP - General Family Medicine 05/13/23 Jaymie Phoenix NP [address] [place] [address] Nurse Practitioner Family Medicine 01/26/23 Jaymie Phoenix NP [address] [place] [address] Nurse Practitioner Family Medicine 05/13/23 Potato Bucker Relationship Specialty Start Date End Date Rohan Rodríguez MD [address] [place] [address] PCP - General Family Medicine 05/13/23 Jaymie Phoenix NP [address] [place] [address] Nurse Practitioner Family Medicine 01/26/23 Jaymie Phoenix NP [address] [place] [address] Nurse Practitioner Family Medicine 05/13/23 Potato Bucker Relationship Specialty Start Date End Date Rohan Rodríguez MD [address] [place] [address] PCP - General Family Medicine 05/13/23 Jaymie Pohenix NP [address] [place] [address] Nurse Practitioner Family Medicine 01/26/23 Jaymie Phoenix NP [address] [place] [address] Nurse Practitioner Family Medicine 05/13/23 Potato Bucker Relationship Specialty Start Date End Date Rohan Rodríguez MD [address] [place] [address] PCP - General Family Medicine 05/13/23 Jaymie Phoenix NP [address] [place] [address] Nurse Practitioner Family Medicine 01/26/23 Jaymie Phoenix NP [address] [place] [address] Nurse Practitioner Family Medicine 05/13/23 Potato Bucker Relationship Specialty Start Date End Date Rohan Rodríguez MD [address] [place] [address] PCP - General Family Medicine 05/13/23 Jaymie Phoenix NP [address] [place] [address] Nurse Practitioner Family Medicine 01/26/23 Jaymie Phoenix NP [address] [place] [address] Nurse Practitioner Family Medicine 05/13/23 Potato Bucker Relationship Specialty Start Date End Date Rohan Rodríguez MD [address] [place] [address] PCP - General Family Medicine 05/13/23 Jaymie Phoenix NP [address] [place] [address] Nurse Practitioner Family Medicine 01/26/23 Jaymie Pohenix NP [address] [place] [address] Nurse Practitioner Family Medicine 05/13/23 Potato Bucker Relationship Specialty Start Date End Date Rohan Rodríguez MD [address] [place] [address] PCP - General Family Medicine 05/13/23 Jaymie Phoenix NP [address] [place] [address] Nurse Practitioner Family Medicine 01/26/23 Jaymie Phoenix NP [address] [place] [address] Nurse Practitioner Family Medicine 05/13/23 Potato Bucker Relationship Specialty Start Date End Date Rohan Rodríguez MD [address] [place] [address] PCP - General Family Medicine 05/13/23 Jaymie Phoenix NP [address] [place] [address] Nurse Practitioner Family Medicine 01/26/23 Jaymie Phoenix NP [address] [place] [address] Nurse Practitioner Family Medicine 05/13/23 Potato Bucker Relationship Specialty Start Date End Date Rohan Rodríguez MD [address] [place] [address] PCP - General Family Medicine 05/13/23 Jaymie Phoenix NP [address] [place] [address] Nurse Practitioner Family Medicine 01/26/23 Jaymie Phoenix NP [address] [place] [address] Nurse Practitioner Family Medicine 05/13/23 Potato Bucker Relationship Specialty Start Date End Date Rohan Rodríguez MD [address] [place] [address] PCP - General Family Medicine 05/13/23 Jaymie Phoenix NP [address] [place] [address] Nurse Practitioner Family Medicine 01/26/23 Jaymie Phoenix NP [address] [place] [address] Nurse Practitioner Family Medicine 05/13/23 Potato Bucker Relationship Specialty Start Date End Date Rohan Rodríguez MD [address] [place] [address] PCP - General Family Medicine 05/13/23 Jaymie Phoenix NP [address] [place] [address] Nurse Practitioner Family Medicine 01/26/23 Jaymie Phoenix NP [address] [place] [address] Nurse Practitioner Family Medicine 05/13/23 Potato Bucker Relationship Specialty Start Date End Date Rohan Rodríguez MD [address] [place] [address] PCP - General Family Medicine 05/13/23 Jaymie Phoenix NP [address] [place] [address] Nurse Practitioner Family Medicine 01/26/23 Jaymie Phoenix NP [address] [place] [address] Nurse Practitioner Family Medicine 05/13/23 Reason for [...] BE BASED ON THE PRIMARY CLINICAL RECORDS. [employer] [facility]. provides no warranty or guarantee of the accuracy or completeness of information in this document.
[2024-10-10 10:46] LABS: Anion Gap 12.6; Blood Urea Nitrogen 19.0 mg/dL (7.0-18.0); Calcium 8.9 mg/dL (8.5-10.1); Carbon Dioxide 29.5 mmol/L (21.0-32.0); Chloride 101 mmol/L (98-107); Estimated GFR (African America >60 (>=60 mL/min/1.73m^2); Estimated GFR (Non-African Ame 54 (>=60 mL/min/1.73m^2); Glucose 111 mg/dL (74-106); Potassium 4.1 mmol/L (3.5-5.1); Sodium 139 mmol/L (136-145)
== END 2024-10-10 10:00 | disposition home or self-care (01) ==
LOC: LAB 10:00
PROVIDERS: PCP Nurse Practitioner; Visit Provider Nurse Practitioner
DX: N18.31 Chronic kidney disease, stage 3a (principal)
CPT/HCPCS: 36415; 80048

== ENCOUNTER 2024-10-24 08:59 | Outpatient (OUT) | payer MEDICARE, SELFPAY ==
--- NOTE | 2024-10-24 09:02 | MR_ITS ---
[address] [address] Patient Name: FRANKY SRINIVASAN MRN: [facility]:[id number] date: 1965 Sex: F Assigned Patient Location: MRI Current Patient Location: MRI Accession/Order Number: [id number] Exam Date: 10/24/2024 09:52 Report Date: 10/24/2024 15:49 At the request of: ESTELLE LOZANO NP Procedure: MR lumbar spine wo con MRI lumbar spine performed without contrast INDICATION: Spinal stenosis, lumbar region with neurogenic claudication FINDINGS: Lumbar vertebral heights, alignment unremarkable. Bone marrow signal is unremarkable with minimal endplate marrow changes L2-L3 appearing predominantly T2 hyperintense and T1 hypointense. Intermargin plate spurring notably L1-L4. Minimal anterolisthesis ascending L5-S1 and from L1 through L4. Conus medullaris service normally mid L2. Paraspinal soft tissues are unremarkable. T12-L1: Unremarkable. L1-2: Disc desiccation. No significant disc disease central canal or neural foramen narrowing identified. L2-3: Broad-based disc bulge with moderate facet arthropathy. Trace facet joint effusion. Mild left greater than right neural foramina narrowing. Canal is patent. L3-L4: Broad-based disc bulge with [id number] facet arthropathy. Moderate left neural from narrowing [id number] right neural from narrowing. L4-5: Disc desiccation with moderate facet arthropathy. Minimal endplate spurring extending both foramina regions causing mild right moderate left neural foraminal narrowing. L5-S1: Circumferential disc bulge with superimposed subarticular extrusion measuring 9 x 6 mm. This contacts the traversing left S1 nerve root. Otherwise mild left moderate moderate right-sided neural foraminal narrowing. Moderate facet arthropathy. MR/MR lumbar spine wo con IMPRESSION: L5-S1 subarticular zone disc extrusion contacting and slightly displacing the traversing left S1 nerve root, correlate with possible left lower S1 radiculopathy. Otherwise mild multilevel degenerative changes with moderate posterior element degeneration notably L4-S1. Impression dictated by: Ryne Ugalde M.D. 10/24/2024 3:49 PM Dictation Location: [place] [address] Electronically authenticated by: [id number] Y Date: 10/24/2024 15:49
--- OUTSIDE RECORDS SUMMARY | 2024-10-24 09:04 | XMS_ITS | CCD ---
Author Organization [facility] Care Team Providers Care 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 Name Role Phone JAYMIE PHOENIX Primary Care Physician Bryson SAMPSON Attending Unavailable JAYMIE PHOENIX J Referring Unavailabl e NILL, Bryson Hernandez Attending Unavailable Aichholz, Tracy L Referring Unavailable NILL, Bryson Hernandez Attending Unavailable NILL, Bryson Hernandez Attending Unavailable NILL, Bryson Hernandez Attending Unavailable AICHHOLZ, ONLINE TUTOR JAYMIE Primary Care Unavailable ALLAN ., DR JIM Mcdonnell Attending Unavailable ALLAN ., DR JIM Mcdonnell Admitting Unavailable ALLAN ., DR JIM Mcdonnell Consulting Unavailable ROBINSON ., GLENROY Admitting Unavailable ROBINSON ., GLENROY Attending Unavailable SJ SOLER Consulting Unavailable AICHHOLZ, ONLINE TUTOR JAYMIE Primary Care Unavailable MENDEZ ., MR DEMETRIUS Admitting Unavailable MENDEZ ., MR DEMETRIUS Attending Unavailable AICHHOLZ, ONLINE TUTOR JAYMIE Primary Care Unavailable AICHHOLZ, ONLINE TUTOR JAYMIE Admitting Unavailable JUANITA, DR NADINE Caldwell Consulting Unavailable AICHHOLZ, ONLINE TUTOR JAYMIE Primary Care Unavailable AICHHOLZ, ONLINE TUTOR JAYMIE Attending Unavailable AICHHOLZ, ONLINE TUTOR JAYMIE Consulting Unavailable AICHHOLZ, ONLINE TUTOR JAYMIE Admitting Unavailable JUANITA, DR NADINE Caldwell Consulting Unavailable AICHHOLZ, ONLINE TUTOR JAYMIE Primary Care Unavailable AICHHOLZ, ONLINE TUTOR JAYMIE Attending Unavailable AICHHOLZ, ONLINE TUTOR JAYMIE Consulting Unavailable AICHHOLZ, ONLINE TUTOR JAYMIE Primary Care Unavailable NILL ., DR MASSEY Admitting Unavailable NILL ., DR MASSEY Attending Unavailable NILL ., DR MASSEY Consulting Unavailable SONDRA FELICIANO Consulting Unavailable ROBINSON ., GLENROY Admitting Unavailable ROBINSON ., GLENROY Attending Unavailable ROBINSON ., GLENROY Consulting Unavailable AICHHOLZ, ONLINE TUTOR JAYMIE Primary Care Unavailable ALLNA ., DR JIM Mcdonnell Attending Unavailable ALLAN ., DR JIM Mcdonnell Consulting Unavailable ALLAN ., DR JIM Mcdonnell Admitting Unavailable AICHHOLZ, ONLINE TUTOR JAYMIE Primary Care Unavailable MARIA FERNANDA SOSA Consulting Unavailable ALLAN ., DR JIM Mcdonnell Attending Unavailable ALLAN ., DR JIM Mcdonnell Consulting Unavailable ALLAN ., DR JIM Mcdonnell Admitting Unavailable AICHHOLZ, ONLINE TUTOR JAYMIE Primary Care Unavailable ALLAN ., DR JIM Mcdonnell Admitting Unavailable ALLAN ., DR JIM Mcdonnell Attending Unavailable ALLAN ., DR JIM Mcdonnell Consulting Unavailable AICHHOLZ, ONLINE TUTOR JAYMIE Primary Care Unavailable ALLAN ., DR JIM Mcdonnell Admitting Unavailable ALLAN ., DR JIM Mcdonnell Attending Unavailable AICHHOLZ, ONLINE TUTOR JAYMIE Primary Care Unavailable THORNE ., JENNY Consulting Unavailable ALLAN ., DR JIM Mcdonnell Admitting Unavailable ALLAN ., DR JIM Mcdonnell Attending Unavailable ALLAN ., DR JIM Mcdonnell Consulting Unavailable AICHHOLZ, ONLINE TUTOR JAYMIE Primary Care Unavailable ALLAN ., DR JIM Mcdonnell Admitting Unavailable ALLAN ., DR JIM Mcdonnell Attending Unavailable ALLAN ., DR JIM Mcdonnell Consulting Unavailable AICHHOLZ, ONLINE TUTOR JAYMIE Primary Care Unavailable THORNE ., JENNY Consulting Unavailable ALLAN ., DR JIM Mcdonnell Admitting Unavailable ALLAN ., DR JIM Mcdonnell Attending Unavailable AICHHOLZ, ONLINE TUTOR JAYMIE Primary Care Unavailable ALLAN ., DR JIM Mcdonnell Attending Unavailable ALLAN ., DR JIM Mcdonnell Consulting Unavailable ALLAN ., DR JIM Mcdonnell Admitting Unavailable AICHHOLZ, ONLINE TUTOR JAYMIE Primary Care Unavailable LAKSHMIPATHY ., NARENDRANEDWAR Consulting Evelyn vailable NILL ., DR MASSEY Consulting Unavailable NILL ., DR MASSEY Admitting Unavailable AICHHOLZ, ONLINE TUTOR JAYMIE Primary Care Unavailable NILL ., DR MASSEY Attending Unavailable AICHHOLZ, ONLINE TUTOR JAYMIE Admitting Unavailable AICHHOLZ, ONLINE TUTOR JAYMIE Attending Unavailable AICHHOLZ, ONLINE TUTOR JAYMIE Consulting Unavailable AICHHOLZ, ONLINE TUTOR JAYMIE Primary Care Unavailable DR MELISSA ROSENBERG Consulting Unavailable AICHHOLZ, ONLINE TUTOR JAYMIE Admitting Unavailable AICHHOLZ, ONLINE TUTOR JAYMIE Attending Unavailable AICHHOLZ, ONLINE TUTOR JAYMIE Consulting Unavailable AICHHOLZ, ONLINE TUTOR JAYMIE Primary Care Unavailable LORI FROST Consulting Unavailable ALLAN ., DR JIM Mcdonnell Attending Unavailable ALLAN ., DR JIM Mcdonnell Admitting Unavailable AICHHOLZ, ONLINE TUTOR JAYMIE Primary Care Unavailable AICHHOLZ, ONLINE TUTOR JAYMIE Primary Care Unavailable SAMSA ., MAGDALENA Admitting Unavailable SAMSA ., MAGDALENA Attending Unavailable SAMSA ., MAGDALENA Consulting Unavailable ALLAN ., DR JIM Mcdonnell Attending Unavailable JERRELL ., DR JIM Mcdonnell Admitting Unavailable JERRELL ., DR JIM Mcdonnell Consulting Unavailable AICHARI, MEREDITH JAYMIE Primary Care Unavailable AICHHOLHomer, ONLINE TUTOR JAYMIE Admitting Unavailable AICHHOLZ, ONLINE TUTOR JAYMIE Attending Unavailable AICHHOLZ, ONLINE TUTOR JAYMIE Consulting Unavailable AICHHOLZ, ONLINE TUTOR JAYMIE Primary Care Unavailable Aichholz PRINT JOURNALIST, Jaymie Unavailable Alma AMADOR, Primary Care Provider Aicholhomer PRINT JOURNALIST, Jaymie Unavailable Rohan Rodríguez MD Primary Care Provider [phone] Aicholhomer PRINT JOURNALIST, Jaymie Unavailable Alphonse Damian Attending Unavailab Alphonse [...] Hives, Shortness of breath, Swelling [facility] [place] (2 sources) predniSONE; Translations: [prednisone] Drug Allergy Dyspnea (finding) General Surgery [place] (1 source) prednisoLONE Drug Allergy The [facility] Repository (20 sources) Prednisone Propensity to adverse reactions 3 Itching [facility] Medications Current Medications Medication Drug Class(es) Dates Sig (Normalized) Sig (Original) acetaminophen 325 mg / HYDROcodone bitartrate 5 mg oral tablet (3 sources) Opioid Agonist Start: 08-29-2024 End: 09-08-2024 take 1 tablet by mouth once HYDROcodone-acetam inophen ([place]) 5-325 MG tablet Indications: Acute back pain with sciatica, unspecified laterality Take 1 tablet by mouth every 12 (twelve) hours if needed for severe pain for up to 10 days 20 tablet 08/29/2024 09/08/2024 Active [id number] 200 actuat albuterol 0.09 mg/actuat metered dose [...] take 2 puff(s) by inhalation at bedtime Sbvriox-Gaixcdfivjb-Daemqfnoqx (Breztri Aerosphere) 160-9-4.8 MCG/ACT aerosol Indications: COPD [...] 01-26-2023 Episodic Other aftercare (1 source) Other human resources 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 assistant (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) drug 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; Translations: [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] Onset: 3 Episodic Other [...] SPINE 6V W BENDING on 09-19-2024 [place] [address] XRay Report Signed Patient: FRANKY SRINIVASAN I MR#: [id number] : 1965 Acct:[id number] Age/Sex: 59 / F ADM Date: 09/19/24 Loc: RAD Attending Dr: Estelle Vazquez NP Ordering Physician: Estelle Vazquez NP Date of Service: 09/19/24 Procedure(s): XR lumbar spine 6V w bending Accession Number(s): [id number] cc: Jaymie Phoenix NP; Estelle Vazquez NP [place] [address] Patient Name: FRANKY SRINIVASAN MRN: [facility]:[id number] date: 1965 Sex: F Assigned Patient Location: [facility] Current Patient Location: [facility] Accession/Order Number: [id number] Exam Date: 09/19/2024 14:32 Report Date: 09/19/2024 [...] Jr., D.O. 09/19/2024 2:33 PM Dictation Location: [place] [address] Electronically authenticated by: [id number] Y Date: 09/19/2024 14:33 Dictated By: Joaquin Chatman M.D. Signed By: 09/19/24 1436 DD/ 32 TD/TT: Cell Maker: [facility] Radiology, Radiologist, - 09/19/2024 [place] [address] XRay Report Signed Patient: FRANKY SRINIVASAN I MR#: [id number] : 1965 Acct:[id number] Age/Sex: 59 / F ADM Date: 09/19/24 Loc: RAD Attending Dr: Estelle Vazquez NP Ordering Physician: Estelle Vazquez NP Date of Service: 09/19/24 Procedure(s): XR lumbar spine 6V w bending Accession Number(s): [id number] cc: Jaymie Phoenix PRINT JOURNALIST; Estelle Vazquez NP The [place] [address] Patient Name: FRANKY SRINIVASAN MRN: [id number] date: 1965 Sex: F Assigned Patient Location: [facility] Current Patient Location: [facility] Accession/Order Number: [id number] Exam Date: 09/19/2024 14:32 Report Date: 09/19/2024 [...] Jr., D.O. 09/19/2024 2:33 PM Dictation Location: [place] [address] Electronically authenticated by: [id number] Y Date: 09/19/2024 14:33 Dictated By: Joaquin Chatman M.D. Signed By: 09/19/241435 DD/ 32 TD/TT: Cell Maker: [facility] Radiology Study observation (narrative) [facility] XR LUMBAR SPINE 6V W BENDING Ordered By: Radiologist Radiology on 09-19-2024 [facility] Work Phone: [facility] MICROALB CREAT RATIO RAN BRAULIOon 01-27-2024 CREATININE URINE RANDOM 235.95 mg/dL 20.00 - 300.00 mg/dL [facility] MICROALBUMIN URINE RANDOM <1.3 NINF - 30.0 mg/dL [facility] ALL BASIC METABOLIC PANELon 01-24-2024 Anion gap [Moles/Vol] 11.6 mmol/L [facility] Calcium [Mass/Vol] 8.9 mg/dL 8.5 - 10. 1 mg/dL [facility] Chloride [Moles/Vol] 103 mmol/L 98 - 10 7 mmol/L [facility] CO2 [Moles/Vol] 31.6 mmol/L 21.0 - 32.0 mmol/L [facility] Creatinine [Mass/Vol] 1.17 mg/dL High 0.55 - 1.02 mg/dL [facility] GFR/1.73 sq M.predicted CKD-EPI (S/P/Bld) [Vol rate/Area] 57 Low >=60 mL/min/1.73m 2 [facility] Glucose [Mass/Vol] 118 mg/dL High 74 - 106 mg/dL [facility] Potassium [Moles/Vol] 4.2 mmol/L 3.5 - 5.1 mmol/L [facility] Sodium [Moles/Vol] 142 mmol/L 136 - 145 mmol/L [facility] TBH EGFR-NON AF JORDANIAN 47 Low >=60 mL/min/1.73m 2 [facility] Urea nitrogen [Mass/Vol] 12 mg/dL 7.0 - 18.0 mg/dL [facility] Urea nitrogen/Creatinine [Mass ratio] 10.3 mg/mg [facility] ALL LIPID PROFILE (FASTING)o n 01-24-2024 CHOL HDL RATIO 2.9 [facility] Comment on above: 3.3 - 4.4 LOW RISK 4.4 - 7.1 AVERAGE RISK 7.1 - 11.0 MODERATE RISK >11.0 HIGH RISK Cholesterol [Mass/Vol] 152 mg/dL NINF - 200 mg/dL [facility] Cholesterol in HDL [Mass/Vol] 52 mg/dL 40 - 60 mg/dL [facility] Comment on above: > or =60 mg/dl - LOW CARDIOVASCULAR RISK <40 mg/dl - HIGH CARDIOVASCULAR RISK Magnesium [Mass/Vol] 70 mg/dL [facility] Comment on above: <100 mg/dl OPTIMAL 100-129 mg/dl NEAR OR ABOVE OPTIMAL 130-159 mg/dl BORDERLINE HIGH 160-189 mg/dl HIGH >190 mg/dl VERY HIGH Magnesium [Mass/Vol] 30.8 mg/dL [facility] Triglyceride [Mass/Vol] 154 mg/dL High NINF - 150 mg/dL [facility] No Panel Informationon 01-23 Interpretation and review of laboratory results Abnormal [facility] BLOOD GASES BTYon 07-08-2022 02 MODE ROOM AIR Normal [facility] Comment on above: Performed By: #### A BG ####[facility] [address] [place] [address]Dr. Phani El ALLENS TEST Positive Normal [facility] Comment on above: Performed By: #### A BG ####[facility] S[address] [place], [place] [address]Dr. Phani El Base excess Calc (Bld) [Moles/Vol] 1.4 mmol/L Normal -2.0-2.0 [facility] Comment on above: Performed By: #### A BG ####[facility] [address] [place], [place] [address]Dr. Phani El BIPAP PRESSURE Normal [facility] Comment on above: Performed By: #### A BG ####[facility] Y[address] [place], [place] [address]Dr. Phani El CPAP Normal [facility] Comment on above: Performed By: #### A BG ####[facility] Id[address] [place], [place] [address]Dr. Phani El FIO2 Normal The [facility] Comment on above: Performed By: #### A BG ####[facility] [address] [place], [place] [address]Dr. Phani El HCO3 (Bld) [Moles/Vol] 26.2 mmol/L Critically high 22.0-26.0 [facility] Comment on above: Performed By: #### A BG ####[facility] [address] [place], [place] [address]Dr. Phani El LPM Normal [facility] Comment on above: Performed By: #### A BG ####[facility] [address] [place] [address]Dr. Phani El MINUTE VOLUME Normal The [facility] Comment on above: Performed By: #### A BG ####[facility] [address] [place] [address]Dr. Phani El Oxygen (Bld) [Partial pressure] 56.1 mm[Hg] Critically low 80.0-100.0 [facility] Comment on above: Performed By: #### A BG ####[facility] F[address] [place], [place] [address]Dr. Phani El Oxygen saturation in Blood 92.0 % Critically low 95.0-100.0 [facility] Comment on above: Performed By: #### A BG ####[facility] [address] [place], [place] [address]Dr. Phani El PCO2 42.6 mmHg Normal 35.0-45.0 [facility] Comment on above: Performed By: #### A BG ####[facility] [address] [place], [place] [address]Dr. Phani El PEEP [facility] Comment on above: Performed By: #### A BG ####[facility] [address] [place], [place] [address]Dr. Phani El pH (Bld) 7.398 [pH] Normal 7.350-7.450 [facility] Comment on above: Performed By: #### A BG ####[facility] [address] [place], [place] [address]Dr. Phani El PIP [facility] Comment on above: Performed By: #### A BG ####[facility] By[address] [place], [place] [address]Dr. Phani El PS Normal The [facility] Comment on above: Performed By: #### A BG ####[facility] Q[address] [place], [place] [address]Dr. Phani El PUNCTURE SITE RR Normal The [facility] Comment on above: Performed By: #### A BG ####[facility] [address] [place], [place] [address]Ee. Phani El RATE Normal [facility] Comment on above: Performed By: #### A BG ####[facility] [address] [place], [place] [address]Vh. Phani El VENT MODE Normal [facility] Comment on above: Performed By: #### A BG ####[facility] [address] [place], [place] [address]Rh. Phani El VT Normal [facility] Comment on above: Performed By: #### A BG ####[facility] [address] [place], [place] [address]Do. Phani El ECHOCARDIO M/2D COMPLETEon 0 07-08-2022 ECHOCARDIO M/2D COMPLETE Patient: FRANKY SRINIVASAN I. Exam Date: 07/08/2022 : 1965 Gender:F Ordering : DR. MAGDALENA DOWNING . Admission #: [id number] Family : [facility] Order #: [id number] CLICK HERE TO VIEW EXAM ECHOCARDIOGRAM REPORT [...] Garcia M.D. on 07/08/2022 at 18:14 Normal [facility] CT LUNG CANCER SCREENINGon 0 05-29-2022 [...] by: MELISSA ROSENBERG Date: 2022-05-29 09:36 Normal [facility] CBC AUTO DIFFon 05-05-2022 BASO # 0.1 103/ul Normal 0.0-0.1 [facility] Comment on above: Performed By: #### C BC #### [facility] [address] [place] [address] Dr. Phani El Basophils/100 WBC (Bld) 0.8 % Normal 0.2-2.0 [facility] Comment on above: Performed By: #### C BC #### [facility] [address] [place] [address] Dr. Phani El EO # 0.1 103/ul Normal 0.0-0.7 [facility] Comment on above: Performed By: #### C BC #### [facility] [address] [place] [address] Dr. Phani El Eosinophils/100 WBC (Bld) 2.0 % Normal 0.9-7.0 [facility] Comment on above: Performed By: #### C BC #### [facility] [address] [place] [address] Dr. Phani El Erythrocyte distribution width (RBC) [Ratio] 14.0 % Normal 11.0-15.0 [facility] Comment on above: Performed By: #### C BC #### [facility] [address] [place] [address] Dr. Phani El Hematocrit (Bld) [Volume fraction] 48.7 % Critically high 36.0-48.0 [facility] Comment on above: Performed By: #### C BC #### [facility] [address] [place] [address] Dr. Phani El Hemoglobin (Bld) [Mass/Vol] 15.9 g/dL Normal 12.0-16.0 [facility] Comment on above: Performed By: #### C BC #### [facility] [address] [place] [address] Dr. Phani El IG # 0.05 10e3/ul Critically high 0.00-0.03 [facility] Comment on above: Performed By: #### C BC #### [facility] [address] [place] [address] Dr. Phani El IG % 0.8 % Critically high 0.0-0.5 [facility] Comment on above: Performed By: #### C BC #### [facility] [address] [place] [address] Dr. Phani El LYMPH # 1.9 103/ul Normal 1.2-3.8 [facility] Comment on above: Performed By: #### C BC #### [facility] [address] [place] [address] Dr. Phani El Lymphocytes/100 WBC (Bld) 30.1 % Normal 20.5-60.0 [facility] Comment on above: Performed By: #### C BC #### [facility] [address] [place] [address] Dr. Phani El MANUAL DIFF REQ NO Normal [facility] Comment on above: Performed By: #### C BC #### [facility] [address] [place] [address] Dr. Phani El MCH (RBC) [Entitic mass] 32.9 pg Normal 26.7-34.0 [facility] Comment on above: Performed By: #### C BC #### [facility] [address] [place] [address] Dr. Phani El MCHC (RBC) [Mass/Vol] 32.6 g/dL Normal 29.9-35.2 [facility] Comment on above: Performed By: #### C BC #### [facility] [address] [place] [address] Dr. Phani El MCV (RBC) [Entitic vol] 100.8 fL Critically high 81.0-99.0 [facility] Comment on above: Performed By: #### C BC #### [facility] [address] [place] [address] Dr. Phani El MONO # 0.5 103/ul Normal 0.3-0.8 [facility] Comment on above: Performed By: #### C BC #### [facility] [address] [place] [address] Dr. Phani El Monocytes/100 WBC (Bld) 7.2 % Normal 1.7-12.0 [facility] Comment on above: Performed By: #### C BC #### [facility] [address] [place] [address] [address] Phani El NEUT # 3.8 103/ul Normal 1.4-6.5 [facility] Comment on above: Performed By: #### C BC #### [facility] [address] [place] [address] [address] Phani El Neutrophils/100 WBC (Bld) 59.1 % Normal 43.0-75.0 [facility] Comment on above: Performed By: #### C BC #### [facility] [address] [place] [address] [address] Phani El Platelet mean volume (Bld) [Entitic vol] 11.0 fL Normal 9.5-13.5 [facility] Comment on above: Performed By: #### C BC #### [facility] [address] [place] [address] Dr. Phani El PLT 167 103/ul Normal 150-450 The [facility] Comment on above: Performed By: #### C BC #### [facility] [address] [place] [address] [address] Phani El RBC 4.83 106/ul Normal 4.20-5.40 [facility] Comment on above: Performed By: #### C BC #### [facility] [address] [place] [address] [address] Phani El WBC 6.4 103/ul Normal 4.0-11.0 [facility] Comment on above: Performed By: #### C BC #### [facility] [address] [place] [address] [address] Phani El GLYCOHEMOGLOBIN A1Con 2022 ADA RECOMMENDATION SEE BELOW Normal [facility] Comment on above: Result Comment: ADA RECOMMENDED LIMIT 4.0 - 6.0 ADA THERAPEUTIC TARGET < 7.0 ACTION SUGGESTED > 7.0 Performed By: #### A 1C ####[facility] [address] [place] [address]Dr. Phani El Glucose [Mass/Vol] 114 mg/dL Normal [facility] Comment on above: Performed By: #### A 1C ####[facility] [address] [place] [address]Dr. Phani El HbA1c (Bld) [Mass fraction] 5.6 % Normal 4.5-6.2 [facility] Comment on above: Performed By: #### A 1C ####[facility] [address] [place] [address]Dr. Phani El LIPID PROFILEon 05-05-2022 CHOL-HDL RATIO NORM SEE BELOW Normal [facility] Comment on above: Result Comment: 3.3 - 4.4 LOW RISK 4.4 - 7.1 AVERAGE RISK 7.1 - 11.0 MODERATE RISK >11.0 HIGH RISK Performed By: #### C MP, LIPID #### [facility] [address] [place] [address] [address] Phani El Cholesterol [Mass/Vol] 178 mg/dL Normal <=200 [facility] Comment on above: Performed By: #### C MP, LIPID #### [facility] [address] [place] [address] [address] Phani El Cholesterol in HDL [Mass/Vol] 54 mg/dL Normal 40-60 [facility] Comment on above: Performed By: #### C MP, LIPID #### [facility] [address] [place] [address] [address] Phani lE Cholesterol in LDL [Mass/Vol] 86.6 mg/dL Normal [facility] Comment on above: Performed By: #### C MP, LIPID #### [facility] [address] [place] [address] [address] Phani El Cholesterol.total/Ch olesterol in HDL [Mass ratio] 3.3 {ratio} Normal [facility] Comment on above: Performed By: #### C MP, LIPID #### [facility] [address] [place] [address] [address] Phani El HDL NORMAL > or = 60 mg/dl - LO W CARDIOVASCULAR RISK <40 mg/dl - HIGH CARDIOVASCULAR RISK Normal [facility] Comment on above: Performed By: #### C MP, LIPID #### [facility] [address] [place] [address] [address] Phani El LDL CALC NORMAL SEE BELOW Normal [facility] Comment on above: Result Comment: <100 mg/dl OPTIMAL 100 - 129 mg/dl NEAR OR ABOVE OPTIMAL 130 - 159 mg/dl BORDERLINE HIGH 160 - 189 mg/dl HIGH >190 mg/dl VERY HIGH Performed By: #### C MP, LIPID #### [facility] [address] [place] [id number] Phani El Triglyceride [Mass/Vol] 187 mg/dL Critically high <=150 [facility] Comment on above: Performed By: #### C MP, LIPID #### [facility] [facility] [address] [address] [address] Phani El VLDL CALC 37.4 mg/dL Normal [facility] Comment on above: Performed By: #### C MP, LIPID #### [facility] [address] [address] [address] Phani El PROF 14(COMP METB)on 023 Albumin [Mass/Vol] 3.6 g/dL Normal 3.4-5.0 [facility] Comment on above: Performed By: #### C MP, LIPID ####[facility] [address] [id number] El Albumin/Globulin [Mass ratio] 1.1 {ratio} Normal [facility] Comment on above: Performed By: #### C MP, LIPID ####[facility] [address] [id number] El ALP [Catalytic activity/Vol] 91 U/L Normal 46-116 [facility] Comment on above: Performed By: #### C MP, LIPID ####[facility] [address] [id number] El ALT [Catalytic activity/Vol] 34 U/L Normal 14-59 [facility] Comment on above: Performed By: #### C MP, LIPID ####[facility] [address] [id number] El Anion gap [Moles/Vol] 11.6 mmol/L Normal [facility] Comment on above: Performed By: #### C MP, LIPID ####[facility] [address] [address]Dr. Phani El AST [Catalytic activity/Vol] 18 U/L Normal 15-37 [facility] Comment on above: Performed By: #### C MP, LIPID ####[facility] [address] [address]Dr. Phani El Bilirubin [Mass/Vol] 0.6 mg/dL Normal 0.2-1.0 [facility] Comment on above: Performed By: #### C MP, LIPID ####[facility] [address] [place], [place] [address]Dr. Loryzach El Calcium [Mass/Vol] 9.2 mg/dL Normal 8.5-10.1 [facility] Comment on above: Performed By: #### C MP, LIPID ####[facility] [address] [place], [place] [address]Dr. Phani El Chloride [Moles/Vol] 106 mmol/L Normal 98-107 [facility] Comment on above: Performed By: #### C MP, LIPID ####[facility] [address] [place], [place] [address]Dr. Loryzach El CO2 [Moles/Vol] 32.3 mmol/L Critically high 21.0-32.0 [facility] Comment on above: Performed By: #### C MP, LIPID ####[facility] [address] [place], [place] [address]Dr. Phani El Creatinine [Mass/Vol] 1.04 mg/dL Critically high 0.55-1.02 [facility] Comment on above: Performed By: #### C MP, LIPID ####[facility] [address] [place], [place] [address]Dr. Phani El EGFR-AF JORDANIAN >60 Normal >=60 [facility] Comment on above: Performed By: #### C MP, LIPID ####[facility] [address] [place], [place] [address]Dr. Yilan El EGFR-NON AF JORDANIAN 54 mL/min/1.73m2 Critically low >=60 [facility] Comment on above: Performed By: #### C MP, LIPID ####[facility] [address] [address]Dr. Phani El Globulin (S) [Mass/Vol] 3.4 g/dL Normal [facility] Comment on above: Performed By: #### C MP, LIPID ####[facility] [address] [address]Dr. Phani El Glucose [Mass/Vol] 124 mg/dL Critically high 74-106 [facility] Comment on above: Performed By: #### C MP, LIPID ####[facility] [address] [address]Dr. Phani El Potassium [Moles/Vol] 3.9 mmol/L Normal 3.5-5.1 [facility] Comment on above: Performed By: #### C MP, LIPID ####[facility] [address] [place], [place] [address]Dr. Phani El Protein [Mass/Vol] 7.0 g/dL Normal 6.4-8.2 [facility] Comment on above: Performed By: #### C MP, LIPID ####[facility] [address] [place], [place] [address]Dr. Phani El Sodium [Moles/Vol] 146 mmol/L Critically high 136-145 [facility] Comment on above: Performed By: #### C MP, LIPID ####[facility] [address] [address]Dr. Phani El Urea nitrogen [Mass/Vol] 14.0 mg/dL Normal 7.0-18.0 [facility] Comment on above: Performed By: #### C MP, LIPID ####[facility] [address] [address]Dr. Phani El Urea nitrogen/Creatinine [Mass ratio] 13.5 mg/mg Normal [facility] Comment on above: Performed By: #### C MP, LIPID ####[facility] [address] [place], [place] [address]Dr. Phani El VITAMIN B12on 05-05-2022 Cobalamin (Vitamin B12) [Mass/Vol] 321.0 pg/mL Normal 193.0-986.0 [facility] Comment on above: Performed By: #### V ITAD, VITB12 #### [facility] [address] [place], [place] [address] Dr. Phani El VITAMIN D 25 OHon 05-05-2022 VIT D 25-OH 58.7 ng/mL Normal [facility] Comment on above: Performed By: #### V ITAD, VITB12 #### [facility] [id number] Phani El VIT D RANGES SEE BELOW Normal [facility] Comment on above: Result Comment: <20 ng/mL Vit D deficient 20 - <30 ng/mL Vit D insufficient 30 - 100 ng/mL Vit D sufficient >100 ng/mL Potential Toxicity Performed By: #### V ITAD, VITB12 #### [facility] [address] [place], [place] [address] Dr. Phani El XR CHEST 2 Von [...] LORI FROST Date: 2022-05-05 10:05 Normal [facility] Ambulatory Visit Summaryon 0 03-24-2022 Ambulatory [...] B12 deficiency Vitamin D deficiency Normal [facility] General Surgery Office/Clini c Noteon 03-24-2022 General [...] - Not Given Patient Refuses Normal [facility] Comment on above: Result Comment: Elec tronically Signed By: NABIL AMADOR, Bryson Steinberg\Date and Time Signed: 03/24/22 13:12 EST Reminderson 03-24-2022 Reminders - From: Kristine Harrison LPN To: N - Clinical; Sent: 03/24/2022 13:05:34 EST Show up: 01/26/2032 07:00:00 EST Subject: colonoscopy recall Due Date/Time: 02/26/2032 07:00:00 EST Reminder/Recall Patient is due for screening colonoscopy 02/26/2032. Normal [facility] Covid-19 PCR (CVDTBH)on 02-10 SARS-CoV-2 (COVID-19) RNA MARISOL+probe Ql (Unsp spec) Detected Abnormal NOT DETECTED [facility] Comment on above: Result Comment: This test is not yet approved or cleared by the [place] FDA. When there are no FDA-approved or cleared tests available, and other criteria are met, FDA can make tests available under an emergency access mechanism called an Emergency Use Authorization (EUA). The EUA for this test is supported by the System Consultant of Health and Human Service's (HHS's) declaration [...] used). Performed By: #### C VDTBH #### [facility] [address] [place], [place] [address] Dr. Phani El INFLUENZA A AND B AGon 03-10 [facility] Normal [facility] Comment on above: Result Comment: Nega tive for Flu A protein angiten. Infection due to Flu A cannot be ruled out. Flu A angiten in the sample may be below the detection limit of the test. Performed By: #### I NFLUAB ####[facility] [address] [place], [place] [address]ItDr. Phani El INFLUBNEG SEE BELOW Normal [facility] Comment on above: Result Comment: Nega tive for Flu B protein antigen. Infection due to Flu B cannot be ruled out. Flu B antigen in the sample may be below the detection limit of the test. Performed By: #### I NFLUAB ####[facility] [address] [place], [place] [address]Mt. Phani El INFLUENZA A AG Negative Normal NEGATIVE SEE COMMENT [facility] Comment on above: Performed By: #### I NFLUAB ####[facility] [address] [place], [place] [address]Hb. Phani El INFLUENZA B AG Negative Normal NEGATIVE SEE COMMENT [facility] Comment on above: Performed By: #### I NFLUAB ####[facility] [address] [place], [place] [address]Ty. Phani El [facility] PCR [facility]on 02-09 SARS-CoV-2 (COVID-19) RNA MARISOL+probe Ql (Unsp spec) Detected Abnormal NOT DETECTED [facility] Comment on above: Result Comment: This test is not yet approved or cleared by the [place] FDA. When there are no FDA-approved or cleared tests available, and other criteria are met, FDA can make tests available under an emergency access mechanism called an Emergency Use Authorization (EUA). The EUA for this test is supported by the [place] of Health and Human Service's declaration that [...] used). Performed By: #### C VDTBH #### [facility] [address] [place], [place] [address] Dr. Phani El Pathology Noteon 02-27-2022 Pathology Note [id number] 0CD:127 Normal [facility] Outside Colonoscopyon 2022 Outside Colonoscopy [id number] 0CD:127 Normal [facility] Reminderson 02-26-2022 Reminders - From: Kristine Harrison LPN To: Christy KIM Kristine cA; Sent: 02/26/2022 11:14:25 EST Show up: 05/18/2022 07:00:00 EDT Subject: Ambulatory Reminder Due Date/Time: 05/27/2022 07:00:00 EDT Reminder/Recall log in to extra lap top in [place] to keep account active Normal [facility] Lab Reportson 02-23-2022 Lab Reports [id number] 0CD:127 Normal [facility] Covid-19 PCR ([facility])on 02-08 SARS-CoV-2 (COVID-19) RNA MARISOL+probe Ql (Unsp spec) Not detected Normal NOT DETECTED [facility] Comment on above: Result Comment: This test is not yet approved or cleared by the [place] FDA. When there are no FDA-approved or cleared tests available, and other criteria are met, FDA can make tests available under an emergency access mechanism called an Emergency Use Authorization (EUA). The EUA for this test is supported by the System Consultant of Health and Human Service's (HHS's) declaration [...] consistent with SARS-CoV-2. Performed By: #### C [facility] ####[facility] [address] [place], [place] [address]IfCindy El Pre-Certification Formon Pre-Certification Form [id number] 00CD:127 Normal [facility] Consent for Procedure/Surger yon 02-05-2022 Consent for Procedure/Surgery [id number] 0CD:127 Normal [facility] Formson 02-05-2022 Forms [id number] 0CD:127 Normal [facility] Physician Referralon 022 Physician Referral [id number] 0CD:127 Normal [facility] MRI Knee w/o Lefton 12-26-19 [...] by Jason Sanchez on 12/25/2021 1505 Normal [facility] MRI LSPINE WO CONon 12-05-19 [...] by: NADINE GRANT Date: 2021-12-04 17:54 Normal [facility] XR LSPINE 2_3 VIEWSon 2021 XR [...] by: NADINE GRANT Date: 2021-09-30 07:20 Normal [facility] MRI Knee w/o Lefton 07-30-19 22 [...] by Robby Diaz on 07/30/2021 1316 Normal [facility] Private Duty Lpn Vital Signs Date Time Vital Sign Value Performing Clinician Nicolasa zuleyka 08-31-2024 13:00-0400 Body mass index (BMI) [Ratio] 40.77 kg/m2 Nat Beatriz DO Work Phone: [facility] 08-31-2024 13:00-0400 Body weight 111.13 kg Nat Beatriz DO Work Phone: [facility] 08-31-2024 13:00-0400 Diastolic blood pressure 64 mm[Hg] Nat Beatriz DO Work Phone: [facility] 08-31-2024 13:00-0400 Heart rate 86 /min Nat Beatriz DO Work Phone: [facility] 08-31-2024 13:00-0400 SaO2% (BldA) [Mass fraction] 94 % Nat Beatriz DO Work Phone: [facility] 08-31-2024 13:00-0400 Systolic blood pressure 110 mm[Hg] Nat Beatriz DO Work Phone: [facility] 07-31-2024 10:09-0400 Body mass index (BMI) [Ratio] 40.9 kg/m2 Jaymie Phoenix [employer] J[employer]LIST Work Phone: [facility] 07-31-2024 10:09-0400 Body temperature 98.1 [degF] Jaymie Alban [employer] J[employer]LIST Work Phone: [facility] 07-31-2024 10:09-0400 Body weight 111.49 kg Jaymie Alban [employer] J[employer]LIST Work Phone: [facility] 07-31-2024 10:09-0400 Diastolic blood pressure 70 mm[Hg] Jaymie Alban PR[employer] JOU[employer]LIST Work Phone: [facility] 06-23-2025 10:09-0400 Heart rate 80 /min Jaymie Phoenix [employer] J[employer]LIST Work Phone: [facility] 07-31-2024 10:09-0400 Respiratory rate 24 /min Jaymie Phoenix [employer] J[employer]LIST Work Phone: [facility] 07-31-2024 10:09-0400 SaO2% (BldA) [Mass fraction] 92 % Jaymie Phoenix PR[employer] J[employer]LIST Work Phone: [facility] 07-31-2024 10:09-0400 Systolic blood pressure 104 mm[Hg] Jaymie Francoishomer [employer] J[employer]RNALIST Work Phone: [facility] 03-14-2024 14:53-0500 Body mass index (BMI) [Ratio] 40.7 kg/m2 Christopher Wong DO Work Phone: [facility] 03-14-2024 14:53-0500 Body weight 110.95 kg Christopher Wong DO Work Phone: [facility] 03-14-2024 14:53-0500 Diastolic blood pressure 82 mm[Hg] Christopher Wong DO Work Phone: [facility] 03-14-2024 14:53-0500 Heart rate 76 /min Christopher Wong DO Work Phone: [facility] 03-14-2024 14:53-0500 SaO2% (BldA) [Mass fraction] 94 % Christopher Wong DO Work Phone: [facility] 03-14-2024 14:53-0500 Systolic blood pressure 128 mm[Hg] Christopher Wong DO Work Phone: [facility] 02-10-2024 13:31-0500 Body height 165.1 cm Jaymie Phoenix PR[employer] J[employer]RNALIST Work Phone: [facility] 02-10-2024 13:31-0500 Body mass index (BMI) [Ratio] 40.94 kg/m2 Jaymie Xavierashley PR[employer] J[employer]RNALIST Work Phone: [facility] 02-10-2024 13:31-0500 Body temperature 98.1 [degF] Jaymiebrianne Francoisz PR[employer] J[employer]RNALIST Work Phone: [facility] 02-10-2024 13:31-0500 Body weight 111.58 kg Jaymie Ducholz PR[employer] J[employer]RNALIST Work Phone: [facility] 02-10-2024 13:31-0500 Diastolic blood pressure 80 mm[Hg] Jaymie Aichholz PR[employer] JOU[employer]LIST Work Phone: [facility] 02-10-2024 13:31-0500 Heart rate 87 /min Jaymie Maddyhholz PR[employer] JOURNALIST Work Phone: [facility] 02-10-2024 13:31-0500 Respiratory rate 18 /min Jaymie Ducholz PR[employer] JOURNALIST Work Phone: [facility] 02-10-2024 13:31-0500 SaO2% (BldA) [Mass fraction] 94 % Jaymie Ducholz PR[employer] JOURNALIST Work Phone: [facility] 02-10-2024 13:31-0500 Systolic blood pressure 110 mm[Hg] Jaymie Maddyhholz PRINT JOURNALIST Work Phone: [facility] 01-03-2024 10:30-0500 Body height 165.1 cm Jaymie Maddyhholz PR[employer] JOURNALIST Work Phone: [facility] 01-03-2024 10:30-0500 Body mass index (BMI) [Ratio] 40.6 kg/m2 Jaymie Ducholz PR[employer] JOU[employer]LIST Work Phone: [facility] 01-03-2024 10:30-0500 Body temperature 98.1 [degF] Jaymie Maddyhholz PR[employer] JOURNALIST Work Phone: [facility] 01-03-2024 10:30-0500 Body weight 110.68 kg Jaymie Maddyhholz PR[employer] JOURNALIST Work Phone: [facility] 01-03-2024 10:30-0500 Diastolic blood pressure 86 mm[Hg] Jaymie Aichholz PR[employer] JOU[employer]LIST Work Phone: [facility] 01-03-2024 10:30-0500 Heart rate 89 /min Jaymie Ducholz PR[employer] J[employer]LIST Work Phone: [facility] 01-03-2024 10:30-0500 Respiratory rate 19 /min Jaymie Ducholz PR[employer] JOURNALIST Work Phone: [facility] 01-03-2024 10:30-0500 SaO2% (BldA) [Mass fraction] 91 % Jaymie Ducholz PR[employer] JOURNALIST Work Phone: [facility] 01-03-2024 10:30-0500 Systolic blood pressure 106 mm[Hg] Jaymie Aichholz PRINT JOURNALIST Work Phone: [facility] 03-25-2023 13:13-0500 Body height 165.1 cm Jaymie Maddyhholz PR[employer] JOURNALIST Work Phone: [facility] 03-25-2023 13:13-0500 Body mass index (BMI) [Ratio] 42.9 kg/m2 Jaymie Ducholz PR[employer] JOURNALIST Work Phone: [facility] 03-25-2023 13:13-0500 Body temperature 97.5 [degF] Jaymie Maddyhholz PRINT JOURNALIST Work Phone: [facility] 03-25-2023 13:13-0500 Body weight 116.94 kg Jaymie Ducholz PRINT JOURNALIST Work Phone: [facility] 03-25-2023 13:13-0500 Diastolic blood pressure 68 mm[Hg] Jaymie Ducholz PRINT JOURNALIST Work Phone: [facility] 03-25-2023 13:13-0500 Heart rate 71 /min Jaymie Aichholz PR[employer] JOURNALIST Work Phone: [facility] 03-25-2023 13:13-0500 Respiratory rate 20 /min Jaymie Aichholz PRINT JOURNALIST Work Phone: [facility] 03-25-2023 13:13-0500 SaO2% (BldA) [Mass fraction] 95 % Jaymie Ducholz PR[employer] JOURNALIST Work Phone: [facility] 03-25-2023 13:13-0500 Systolic blood pressure 108 mm[Hg] Jaymiebrianne Xavierholz PRINT JOURNALIST Work Phone: [facility] 03-16-2023 13:35-0500 Body height 165.1 cm Jaymie Aichholz PRINT JOURNALIST Work Phone: [facility] 03-16-2023 13:35-0500 Body mass index (BMI) [Ratio] 41.6 kg/m2 Jaymie Aichholz PRINT JOURNALIST Work Phone: [facility] 03-16-2023 13:35-0500 Body temperature 98.4 [degF] Jaymie Maddyhholz PRINT JOURNALIST Work Phone: [facility] 03-16-2023 13:35-0500 Body weight 113.4 kg Jaymie Maddyhholz PRINT JOURNALIST Work Phone: [facility] 03-16-2023 13:35-0500 Diastolic blood pressure 72 mm[Hg] Jaymie Maddyhholz PRINT JOURNALIST Work Phone: [facility] 03-16-2023 13:35-0500 Heart rate 77 /min Jaymie Aichholz PRINT JOURNALIST Work Phone: [facility] 03-16-2023 13:35-0500 Respiratory rate 18 /min Jaymie Aichholz PRINT JOURNALIST Work Phone: [facility] 03-16-2023 13:35-0500 SaO2% (BldA) [Mass fraction] 95 % Jaymie Maddyhholz PRINT JOURNALIST Work Phone: [facility] 03-16-2023 13:35-0500 Systolic blood pressure 112 mm[Hg] Jaymie Aichholz PRINT JOURNALIST Work Phone: [facility] 02-03-2022 13:27-0500 Blood Pressure Location Bryson SAMPS[facility] 02-03-2022 13:27-0500 Diastolic blood pressure 80 mm[Hg] Bryson SAMPSON [facility] 02-03-2022 13:27-0500 Heart rate 72 /min Bryson SAMPSON [facility] [place] 02-03-2022 13:27-0500 Respiratory rate 16 /min Bryson SAMPSON [facility] [place] 02-03-2022 13:27-0500 Systolic blood pressure 126 mm[Hg] Bryson SAMSPON [facility] [place] Encounters Encounter Date Encounter Type Care Provider Facility Start: 09-29-2024 End: 09-29-2024 Refill Jaymie Phoenix PR[employer] JOURNALIST Work Phone: [facility] Comment on above: [...] Start: 08-29-2024 End: 08-29-2024 ambulatory Alphonse Damian Facility:[facility] Comment on above: Acute back pain with sciatica, unspecified laterality (Primary Dx) Start: 08-28-2024 End: 08-28-2024 Orders Only Jaymie Aichholz PR[employer] J[employer]RNALIST Work Phone: [facility] Comment on above: Acute back pain with sciatica, unspecified laterality (Primary Dx) Start: 08-05-2024 End: 08-06-2024 Refill Jaymie Aichholz PR[employer] JOURNALIST Work Phone: [facility] Comment on above: Tobacco dependence Start: 07-31-2024 End: 07-31-2024 Patient encounter procedure Jaymie Aichholz PR[employer] JOURNALIST Work Phone: [facility] Comment on above: Encounter for subseq uent annual wellness visit (AWV) in Medicare patient (Primary Dx); Chronic kidney disease, stage 3a (CMS-HCC); WINSOME (obstructive sleep apnea); COPD mixed type ([facility]); Gastroesophageal reflux disease, unspecified whether esophagitis present; Bilateral lower extremity edema; Anxiety and depression ; Tobacco dependence; Mixed hyperlipidemia ; Fibromyalgia; Environmental and seasonal allergies; Gastro-esophageal reflux disease without esophagitis; Personal history of other diseases of the nervous system and sense organs; Screening for lung cancer Start: 07-31-2024 End: 07-31-2024 ambulatory JAYMIE AICHHOLZ Not Available Start: 07-05-2024 End: 07-05-2024 Refill Jaymie Aichholz PR[employer] J[employer]LIST Work Phone: [facility] Comment on above: Fibromyalgia Start: 06-26-2024 End: 06-26-2024 Refill Jaymie Aichholz PR[employer] JOU[employer]LIST Work Phone: [facility] Comment on above: Tobacco dependence ( Primary Dx) Start: 06-14-2024 End: 06-14-2024 Refill Jaymie Aichholz PR[employer] JOU[employer]LIST Work Phone: [facility] Comment on above: Mixed hyperlipidemia (CMS/HCC) Start: 05-09-2024 End: 05-09-2024 Refill Jaymie Aichholz PR[employer] JOURNALIST Work Phone: [facility] Comment on above: Fibromyalgia Start: 04-19-2024 End: 04-19-2024 Refill Jaymie Aichholz PRINT JOURNALIST Work Phone: [facility] Comment on above: Environmental and se asonal allergies (Primary Dx); COPD mixed type (CMS/HCC) Start: 04-08-2024 End: 04-10-2024 Refill Jaymie Phoenix PR[employer] JOU[employer]LIST Work Phone: [facility] Comment on above: Fibromyalgia; Localized edema; Mixed hyperlipidemia (CMS/HCC) Start: 03-14-2024 End: 03-14-2024 Office outpatient new 30 minutes Saumya Back DO Work Phone: [facility] Comment on above: 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); Tremor Start: 03-14-2024 End: 03-14-2024 ambulatory SAUMYA BACK Not Available Start: 03-14-2024 End: 03-14-2024 Bamboo flowsheet Saumya Back DO Work Phone: [facility] Start: 03-14-2024 End: 03-14-2024 Bamboo flowsheet Saumya Back DO Work Phone: [facility] Start: 02-10-2024 End: 02-10-2024 Bamboo flowsheet Jaymie Phoenix PR[employer] JOU[employer]LIST Work Phone: [facility] Start: 02-10-2024 End: 02-10-2024 Bamboo flowsheet Jaymie Phoenix PRINT JOURNALIST Work Phone: [facility] Start: 02-10-2024 End: 02-10-2024 ambulatory JAYMIEBrianne PHOENIX Not Available Start: 02-10-2024 End: 02-10-2024 Office outpatient visit 25 minutes Jaymie Phoenix PRINT JOURNALIST Work Phone: [facility] Comment on above: COPD with acute exac erbation (CMS/HCC) (Primary Dx); Morbid (severe) obesity due to excess calories ([facility]/HCC); Body mass index (BMI) 40.0-44.9, adult ([facility]); WINSOME (obstructive sleep apnea); COPD mixed type ([facility]/HCC); Gastroesophageal reflux disease, unspecified whether esophagitis present; Tobacco dependence; Gastro-esophageal reflux disease without esophagitis; Tremor Start: 02-03-2024 End: 02-06-2024 Refill Jaymiebrianne Phoenix PRINT JOURNALIST Work Phone: [facility] Comment on above: Fibromyalgia Start: 01-27-2024 End: 01-27-2024 Clinisync Result Encounter Jaymie Alban PRINT JOURNALIST Work Phone: [facility] Unsolicited Start: 01-27-2024 End: 01-27-2024 Clinisync Result Encounter Jaymie Alessandroz PRINT JOURNALIST Work Phone: [facility] Unsolicited Start: 01-24-2024 End: 01-24-2024 Clinisync Result Encounter Jaymie Alessandroz PRINT JOURNALIST Work Phone: [facility] Unsolicited Start: 01-24-2024 End: 01-24-2024 Clinisync Result Encounter Jaymiebrianne Castañedaaminaz PRINT JOURNALIST Work Phone: [facility] Unsolicited Start: 01-03-2024 End: 01-03-2024 Bamboo flowsheet Jaymie Ducholz PRINT JOURNALIST Work Phone: [facility] Start: 01-03-2024 End: 01-03-2024 Bamboo flowsheet Jaymie Ducholz PRINT JOURNALIST Work Phone: [facility] Start: 01-03-2024 End: 01-03-2024 Office outpatient visit 25 minutes Jaymie Phoenix PRINT JOURNALIST Work Phone: [facility] Comment on above: WINSOME (obstructive sle ep apnea) (Primary Dx); COPD mixed type ([facility]); Primary hypertension ([facility]/HCC); Fibromyalgia; BMI 40.0-44.9, adult ([facility]); Tobacco dependence; Mixed hyperlipidemia ([facility]); Vitamin D deficiency; Vitamin B12 deficiency; COPD with acute exacerbation ([facility]) Start: 01-03-2024 End: 01-03-2024 ambulatory JAYMIE AICHHOLZ Not Available Start: 12-31-2023 End: 12-31-2023 Refill Jaymie Alban PRINT JOURNALIST Work Phone: [facility] Start: 12-30-2023 End: 12-31-2023 Refill Jaymie Alban PRINT JOURNALIST Work Phone: [facility] Comment on [...] Start: 11-24-2023 End: 11-24-2023 Refill Jaymie Alban PRINT JOURNALIST Work Phone: [facility] Comment on above: Mixed hyperlipidemia (CMS/HCC) Start: 10-26-2023 End: 10-26-2023 Refill Jaymie Alban PRINT JOURNALIST Work Phone: [facility] Comment on above: Fibromyalgia; Gastro-esophageal reflux disease without esophagitis Start: 06-03-2023 Patient encounter procedure Jaymie Phoenix PRINT JOURNALIST Work Phone: [facility] Start: 03-25-2023 Bamboo flowsheet Jaymie Alban PRINT JOURNALIST Work Phone: [facility] Start: 03-25-2023 Bamboo flowsheet Jaymie Alban PRINT JOURNALIST Work Phone: [facility] Start: 03-25-2023 End: 03-25-2023 Office outpatient visit 25 minutes Jaymie Phoenix PRINT JOURNALIST Work Phone: [facility] Comment on above: Edema of right lower extremity (Primary Dx); BMI 40.0-44.9, adult (CMS/HCC); Shortness of breath; COPD mixed type (CMS/HCC); Primary hypertension (CMS/HCC); Bilateral lower extremity edema Start: 03-16-2023 End: 03-16-2023 Office outpatient visit 25 minutes Jaymie Phoenix PRINT JOURNALIST Work Phone: [facility] Comment on [...] Start: 03-24-2022 End: 03-25-2022 ambulatory Bryson SAMPSON Facility:[facility] Start: 03-17-2022 ambulatory Bryson SAMPSON Facility :[facility] Start: 03-10-2022 End: 03-10-2022 ambulatory MEREDITH PHOENIX Facility:[facility] Start: 03-02-2022 Encounter for preprocedural laboratory examination DR JIM ALLAN . [facility] Start: 02-28-2022 End: 03-01-2022 Encounter for preprocedural laboratory examination MEREDITH PHOENIX Facility:[facility] Start: 02-28-2022 End: 03-01-2022 ambulatory MEREDITH PHOENIX Facility:[facility] Start: 02-25-2022 End: 02-26-2022 ambulatory Bryson SAMPSON Facility:[id number] Start: 02-21-2022 End: 02-22-2022 ambulatory [...] 01-06-2022 ambulatory Bryson Hernandez NABIL Facility : [place] Start: 12-23-2021 End: 12-23-[address] JIM [...] Data Provider Start: 02-10-2024 Mammography Jaymie kohler PRINT JOURNALIST Work Phone: Start: 01-27-2024 [facility] MICROALB CREAT R ATIO RANDOM Jaymie Phoenix PRINT JOURNALIST Work Phone: Start: 01-24-2024 ALL BASIC METABOLIC PANEL Jaymie Phoenix PRINT JOURNALIST Work Phone: Start: 01-24-2024 ALL LIPID PROFILE (FASTING) Jaymie Phoenix NP Work Phone: Start: 12-25-2023 BLOOD CULTURE 2 Generic External Data Provider Start: 12-25-2023 BLOOD CULTURE 1 Generic External Data Provider Start: 12-24-2023 BLOOD CULTURE 2 Generic External Data Provider Start: 12-24-2023 BLOOD CULTURE 1 Generic External Data Provider Start: 03-25-2023 Mammography Jaymie kohler PRINT JOURNALIST Work Phone: Start: 02-25-2022 Colonoscopy Jaymie kohler PRINT JOURNALIST Work Phone: section Bryson RACHEL L Ligation [...] [facility] [address] [place] [phone] Jaymie Phoenix, NILE [address] [place] [address] [facility] Start: 07-31-2025 Medicare Annual [...] [facility] [address] [place] [address] Jaymie Phoenix, NILE [address] [place] [phone] [facility] Start: 08-31-2024 End: 08-31-2024 Patient encounter procedure 08/31/2024 1:00 PM EDT [facility] [address] [place] [phone] Nat Henderson, DO [address] [place] [address] [facility] Start: 07-31-2024 End: 07-31-2025 CT Chest for screening WO contrast CT lung screening low dose Imaging Routine Tobacco dependence Expected: 07/31/2024, Expires: 07/31/2025 [facility] Work Phone: Comment on above: Expected: 07/31/2024 , Expires: 07/31/2025 Start: 07-31-2024 End: 07-31-2024 Patient encounter procedure 07/31/2024 10:30 AM EDT Office Visit [facility] [address] [place] [address] Jaymie Phoenix, NILE [address] [place] [phone] [facility] Start: 06-14-2024 Influenza vaccination Influenza Vacc ine (#1) [facility] Comment on above: Postponed from 10/09 (Patient Refused) Start: 06-05-2024 End: 06-05-2024 Patient encounter procedure 06/05/2024 3:40 PM EDT Office Visit [facility] [address] [place] [phone] Sherice Tristan NP [address] [place] [phone] [facility] Start: 06-02-2024 Medicare Annual Well ness (AWV) Medicare Annual Wellness (AWV) [facility] Start: 05-10-2024 End: 05-10-2024 Patient encounter procedure 05/10/2024 2:00 PM EDT Office Visit [facility] [address] [place] [phone] Jaymie Phoenix, NILE [address] [place] [phone] [facility] Start: 04-06-2024 Influenza vaccination Influenza Vacc ine (#1) [facility] Comment on above: Postponed from 10/09 (Patient Refused) Start: 03-25-2024 Screening for malign ant neoplasm of breast Mammogram [facility] Start: 03-14-2024 End: 03-14-2024 Patient encounter procedure 03/14/2024 3:00 PM EST Office Visit [facility] [address] [place], [place] [address], [place] [address] Saumya Back DO [address] [place], [place] [id number] Tremor [facility] Comment on above: Tremor Start: 01-26-2024 End: 01-26-2024 Patient encounter procedure 01/26/2024 10:30 AM EST Office Visit [facility] [address] [place] [phone] Jaymie Phoenix, NILE [address] [place] [phone] [facility] Start: 01-03-2024 End: 01-02-2025 25-hydroxyvitamin D3 [Mass/volume] in Serum or Plasma Vitamin D 25 hydroxy Lab Routine Vitamin D deficiency Expected: 01/03/2024 (Approximate), Expires: 01/02/2025 [facility] Comment on above: Expected: 01/03/2024 (Approximate), Expires: 01/02/2025 Start: 01-03-2024 End: 01-02-2025 Basic metabolic 1998 panel - Serum or Plasma Basic metabolic panel Lab Routine Primary hypertension (CMS/HCC) Expected: 01/03/2024 (Approximate), Expires: 01/02/2025 [facility] Comment on above: Expected: 01/03/2024 (Approximate), Expires: 01/02/2025 Start: 01-03-2024 End: 01-02-2025 Cobalamin (Vitamin B12) [Mass/volume] in Serum or Plasma Vitamin B12 Lab Routine Vitamin B12 deficiency Expected: 01/03/2024 (Approximate), Expires: 01/02/2025 [facility] Comment on above: Expected: 01/03/2024 (Approximate), Expires: 01/02/2025 Start: 01-03-2024 End: 01-02-2025 Lipid 1996 panel - Serum or Plasma Lipid panel Lab Routine Mixed hyperlipidemia (CMS/HCC) Expected: 01/03/2024 (Approximate), Expires: 01/02/2025 [facility] Comment on above: Expected: 01/03/2024 (Approximate), Expires: 01/02/2025 Start: 01-03-2024 End: 01-02-2025 Microalbumin/Creatinine panel in random Urine Microalbumin / creatinine, urine ratio Lab Routine Primary hypertension (CMS/HCC) Tobacco dependence Expected: 01/03/2024 (Approximate), Expires: 01/02/2025 [facility] Work Phone: Comment on above: Expected: 01/03/2024 (Approximate), Expires: 01/02/2025 Start: 01-03-2024 End: 01-02-2025 Urinalysis complete panel - Urine Urinalysis with reflex microscopic (clean catch) Lab Routine Primary hypertension (CMS/HCC) Tobacco dependence Expected: 01/03/2024 (Approximate), Expires: 01/02/2025 [facility] Comment on above: Expected: 01/03/2024 (Approximate), Expires: 01/02/2025 Start: 01-03-2024 End: 01-03-2024 Patient encounter procedure [facility] Comment on above: WINSOME (obstructive sle ep apnea) (Primary Dx); COPD mixed type ([facility]); Primary hypertension ([facility]); Fibromyalgia; BMI 40.0-44.9, adult ([facility]); Tobacco dependence; Mixed hyperlipidemia ([facility]); Vitamin D deficiency; Vitamin B12 deficiency Start: 10-10-2023 Influenza vaccination Influenza Vacc ine (#1) [facility] Start: 08-08-2023 Influenza vaccination Influenza Vacc ine (#1) [facility] Comment on above: Postponed from 10/09 (Patient Refused) Start: 04-06-2023 End: 04-06-2023 Patient encounter procedure 04/06/2023 1:40 PM EST Office Visit [facility] [address] [place] [phone] Jaymie Phoenix NP [address] [place] [phone] [facility] Start: 03-25-2023 End: 03-25-2024 CBC W Auto Differential panel - Blood CBC and differential Lab Routine Edema of right lower extremity Expected: 03/25/2023 (Approximate), Expires: 03/25/2024 [facility] Comment on above: Expected: 03/25/2023 (Approximate), Expires: 03/25/2024 Start: 03-25-2023 End: 03-25-2024 Comprehensive metabolic 2000 panel - Serum or Plasma Comprehensive metabolic panel Lab Routine Edema of right lower extremity Expected: 03/25/2023 (Approximate), Expires: 03/25/2024 [facility] Comment on above: Expected: 03/25/2023 (Approximate), Expires: 03/25/2024 Start: 03-25-2023 End: 03-25-2024 Fibrin D-dimer FEU [Mass/volume] in Platelet poor plasma D-dimer, quantitative Lab Routine Edema of right lower extremity Expected: 03/25/2023 (Approximate), Expires: 03/25/2024 [facility] Comment on above: Expected: 03/25/2023 (Approximate), Expires: 03/25/2024 Start: 03-25-2023 End: 03-25-2024 US.doppler Lower extremity vein - right Vascular US lower extremity venous duplex right Imaging STAT Edema of right lower extremity Expected: 03/25/2023, Expires: 03/25/2024 [facility] Work Phone: Comment on above: Expected: 03/25/2023 , Expires: 03/25/2024 Start: 03-25-2023 End: 03-25-2024 XR Chest 2 Views XR chest 2 views Imaging Routine Edema of right lower extremity Shortness of breath Expected: 03/25/2023, Expires: 03/25/2024 [facility] Comment on above: Expected: 03/25/2023 , Expires: 03/25/2024 Start: 08-16-1993 Screening for malign ant neoplasm of cervix HPV/Cotest [facility] Start: 08-16-1984 Screening for malign ant neoplasm of cervix Pap Smear [facility] Start: 1963 Medicare Annual Well ness (AWV) Medicare Annual Wellness (AWV) [facility] Start: 1963 Screening for malign ant neoplasm of colon [facility] Start: 1963 Screening for malign ant neoplasm of lung Lung Cancer Screening Shared Decision Making [facility] BLOOD CULTURE 1 BLOOD CULTURE 1 Lab Routine 12/24/2023 1:45 PM EST [facility] BLOOD CULTURE 1 BLOOD CULTURE 1 Lab Routine 12/25/2023 9:09 PM [facility] BLOOD CULTURE 2 BLOOD CULTURE 2 Lab Routine 12/24/2023 1:51 PM EST [facility] BLOOD CULTURE 2 BLOOD CULTURE 2 Lab Routine 12/25/2023 9:20 PM [facility] Immunizations Immunization Date Immunization Notes Care Provider Fa [facility] 08-29-2023 tetanus toxoid, reduced diphtheria toxoid, and acellular pertussis vaccine, adsorbed Jaymie Phoenix PRINT JOURNALIST Work Phone: [facility] 06-14-2020 Kelly SARS-CoV-2 Jaymie ramirez PRINT JOURNALIST Work Phone: [facility] NEGATED: Highlighted row has not occurred!02-03-2022 influenza virus vaccine, unspecified formulation Bryson SAMPSON [facility] [place] Payers Date Payer Category Payer Self-pay 2021 Medicaid [employer] MED[employer] A DVANTAGE [id number] 2015 Medicare [id number] 1963 Unknown [id number] 2.16.840.1.633702.3.579.2. 72 1963 Unknown [id number] 2.16.840.1.606968.3.579.2. 72 1963 Unknown [id number] 2.16.840.1.869476.3.579.2. 72 1963 Unknown [id number] 2.16.840.1.691636.3.579.2. 72 1963 Unknown [id number] 2.16.840.1.861098.3.579.2. 72 1963 Unknown [id number] 2.16.840.1.866277.3.579.2. 59 1963 Unknown [id number] 2.16.840.1.927304.3.579.2. 59 1963 Unknown [id number] 2.16.840.1.770385.3.579.2. 59 1963 Unknown [id number] 2.16.840.1.078805.3.579.2. 59 1963 Unknown [id number] 2.16.840.1.561948.3.579.2. 593 1963 Unknown [id number] 2.16.840.1.967043.3.579.2. 593 1963 Unknown [id number] 2.16.840.1.518407.3.579.2. 59 1963 Unknown [id number] 2.16.840.1.343756.3.579.2. 59 1963 Unknown [id number] 2.16.840.1.481161.3.579.2. 59 1963 Unknown [id number] 2.16.840.1.752252.3.579.2. 59 1963 Unknown [id number] 2.16.840.1.856184.3.579.2 59 1963 Unknown [id number] 2.16.840.1.683472.3.579.2 1963 Unknown [id number] 2.16.840.1.512525.3.579.2 59 1963 Unknown [id number] 2.16.840.1.135932.3.579.2 59 1963 Unknown [id number] 2.16.840.1.805508.3.579.2 59 1963 Unknown [id number] 2.16.840.1.195637.3.579.2. 59 1963 Unknown [id number] 2.16.840.1.876760.3.579.2. 59 1963 Unknown [id number] 2.16.840.1.830387.3.579.2. 59 1963 Unknown [id number] 2.16.840.1.366633.3.579.2 59 1963 Unknown [id number] 2.16.840.1.033411.3.579.2. 59 1963 Unknown [id number] 2.16.840.1.361368.3.579.2. 593 1963 Unknown [id number] 2.16.840.1.094810.3.579.2. 593 1963 Unknown [id number] 2.16.840.1.999814.3.579.2. 1259 1963 Unknown [id number] 2.16.840.1.947352.3.579.2. 9 1963 Unknown [id number] 2.16.840.1.874204.3.579.2. 1259 1963 Unknown [id number] 2.16.840.1.313251.3.579.2. 9 1963 Unknown [id number] 2.16.840.1.577641.3.579.2. 1259 1959 Private Health Insurance [id number] Unknown [id number] 2.16.840.1.722874.3.579.2. 531 Social History Date Type Detail Facility Start: 02-03-2022 Tobacco smoking status Heavy t obacco smoker (finding) [facility] Tobacco smoking status Never [facility] [place] Start: 03-16-2023 End: 05-13-2023 Sex Assigned At Female Meredith [facility] Start: 01-26-2023 End: 09-01-2024 Tobacco smoking status LAIS Smokes tobacco daily [facility] History of [...] the mortgage or rent on time? Yes [facility] Functional Status Date Assessment Result Facility 07-31-2024 Patient Health Quest ionnaire 2 item (PHQ-2) [Reported] [facility] 07-31-2024 PHQ-9 quick depressi on assessment panel [Reported.PHQ] [facility] 02-03-2022 Functional Status N/A [facility] Clinical Notes 12-09-2021 to 08-31-2024 [...] by mouth at bedtime 90 tablet 1 Jozyxym-Hnqxugwoyqb-Dbmemjirtd (Breztri Aerosphere) 160-9-4.8 MCG/ACT aerosol Inhale 2 [...] (5000 UT) tablet as directed Orally HYDROcodone-acetaminophen (Hurst) 5-325 MG tablet Take 1 tablet by [...] (BMI) of 40.0 to 44.9 in adult ([facility]) 01/26/2023 COPD mixed type ([facility]) 01/26/2023 DENIES HX OF BLOOD BORNE [...] Nat Henderson DO documented in this encounter [facility] 07-31-2024 History of Presen t illness Narrative [...] Morbid (severe) obesity due to excess calories ([facility]) Discussed with patient their BMI (actual, verses [...] Associated Problem(s): Chronic kidney disease, stage 3a ([facility]) Check Chem 8 02 range is 89-92% [...] Nightly atorvastatin (LIPITOR) 20 mg, Oral, Nightly Bloilqi-Laxmcgwvtrd-Rzyiriufra (Breztri Aerosphere) 160-9-4.8 MCG/ACT aerosol 2 puffs, [...] (BMI) of 40.0 to 44.9 in adult ([facility]) 01/26/2023 COPD mixed type ([facility]) 01/26/2023 DENIES HX OF BLOOD BORNE [...] of the risks of continued smoking: stroke, NE, all forms of cancer, lung disease, and [...] (Bumex) 0.5 MG tablet COPD mixed type ([facility]) Current meds: breztri, albuterol HFA and neb prn Was referred to Pulmonology, is supposed to get a PFT prior to seeing pulmonology Relevant Medications Dpsdocf-Ecfycoyiqau-Ltrghadzeh (Breztri Aerosphere) 160-9-4.8 MCG/ACT aerosol Anxiety and depression Continue with Dr Hernandez GERD (gastroesophageal reflux disease) Recommendations: freq small meals, nothing to eat or drink at least 2 hours prior to bed, limit caffeine, alcohol, as well as spicy foods Meds to limit or avoid if possible: NSAIDS Elevate HOB if possible Current med: omeprazole Insurance correspondance about chcf use of PPI Pt has been counseled on the risks of chcf use, would like to continue WINSOME (obstructive [...] MG tablet Chronic kidney disease, stage 3a ([facility]) Check Chem 8 Screening for lung [...] of the risks of continued smoking: stroke, NE, all forms of cancer, lung disease, and [...] possible Current med: omeprazole 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 Compliant: no documented in this encounter [facility] 07-31-2024 Instructions Jaymie Phoenix NP - 07/31/2024 10:30 AM EDT Get labs completed Chantix: take as directed, contact me if worsening in mental health documented in this encounter [facility] 06-14-2024 Telephone encounter Note She is also due for her AWV, please call to schedule LA [facility] 06-14-2024 Miscellaneous Notes She is also due for her AWV, please call to schedule LA documented in this encounter [facility] 06-14-2024 Telephone encounter Note 90 day supply [facility] 06-14-2024 Miscellaneous Notes 90 day supply documented in this encounter [facility] 03-14-2024 History of Presen t illness Narrative [...] (BMI) of 40.0 to 44.9 in adult ([facility]) 01/26/2023 COPD mixed type ([facility]) 01/26/2023 DENIES HX OF BLOOD BORNE DISEASES Depression ([facility]) Fibromyalgia Open wound of left foot 01/26/2023 Open wound of second toe 01/26/2023 Other acute sinusitis 01/26/2023 Primary hypertension ([facility]) 01/26/2023 Tobacco dependence 01/26/2023 Past Surgical History: Procedure Laterality Date SECTION, LOW TRANSVERSE x2 HYSTERECTOMY 08/2014 Total Laparoscopic KNEE SURGERY Left 09/02/2021 SCOPE - DR MAURIEC TUBAL LIGATION Laparoscopic Family History Adopted: Yes [...] , wrist extensors , wrist flexor , primary care nurse practitioner strength 5/5. LUE Strength deltoid , biceps , triceps , wrist extensors , wrist flexor , primary care nurse practitioner strength 5/5. RLE Strength illopsoas, quadriceps, tibialis [...] reflex 1+ . Forrest's sign negative. Coordination: Hgbepf-mn-yobx testing and rapid alternating movements are normal [...] and return instructions documented in this encounter [facility] 02-10-2024 History of Presen t illness Narrative [...] (BMI) of 40.0 to 44.9 in adult ([facility]) 01/26/2023 COPD mixed type ([facility]) 01/26/2023 DENIES HX OF BLOOD BORNE DISEASES Depression ([facility]) Fibromyalgia Open wound of left foot 01/26/2023 Open wound of second toe 01/26/2023 Other acute sinusitis 01/26/2023 Primary hypertension ([facility]) 01/26/2023 Tobacco dependence 01/26/2023 Past Surgical [...] of the risks of continued smoking: stroke, NE, all forms of cancer, lung disease, and [...] possible Current med: omeprazole Insurance correspondance about chcf use of PPI Pt has been counseled on the risks of human resources benefits assistant use, would like to continue Associated Problem(s): [...] . Compliant: no documented in this encounter [facility] 01-03-2024 History of Presen t illness Narrative [...] (BMI) of 40.0 to 44.9 in adult ([facility]) 01/26/2023 COPD mixed type ([facility]) 01/26/2023 DENIES HX OF BLOOD BORNE DISEASES Depression ([facility]) Fibromyalgia Open wound of left foot 01/26/2023 Open wound of second toe 01/26/2023 Other acute sinusitis 01/26/2023 Primary hypertension ([facility]) 01/26/2023 Tobacco dependence 01/26/2023 Past Surgical [...] of the risks of continued smoking: stroke, NE, all forms of cancer, lung disease, and [...] of the risks of continued smoking: stroke, NE, all forms of cancer, lung disease, and [...] use of PAP documented in this encounter [facility] 01-03-2024 Instructions Jaymie Phoenix NP - 01/03/2024 10:30 AM EST 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 Consider patches documented in this encounter [facility] 03-25-2023 History of Presen t illness Narrative [...] (BMI) of 40.0 to 44.9 in adult ([facility]) 01/26/2023 COPD mixed type ([facility]) 01/26/2023 DENIES HX OF BLOOD BORNE DISEASES Depression ([facility]) Fibromyalgia Open wound of left foot [...] chest 2 views documented in this encounter [facility] 03-16-2023 History of Presen t illness Narrative [...] (BMI) of 40.0 to 44.9 in adult ([facility]) 01/26/2023 COPD mixed type ([facility]) 01/26/2023 DENIES HX OF BLOOD BORNE DISEASES Depression ([facility] [facility]) Fibromyalgia Open wound of left foot 01/26/2023 Open wound of second toe 01/26/2023 Other acute sinusitis 01/26/2023 Primary hypertension ([facility]) 01/26/2023 Tobacco dependence 01/26/2023 Past Surgical [...] 40.0-44.9, adult (Z68.41) documented in this encounter [facility] 04-30-2022 Note CONSULTATION CONSULTATION DATE: 04/30/2022 TO: [...] office on an as needed basis. [facility] 02-25-2022 Note OPERATIVE NOTE OPERATION DATE: [...] good condition. CC: Patient's family physician [facility] 02-06-2022 Note CONSULTATION CONSULTATION DATE: 02/06/2022 [...] followed up in the clinic thereafter. [facility] 02-03-2022 Note Chief Complaint consultation for [...] 30 days Tobacco (more content not included)... [facility] Comment on above: Result Comment: [...] followed up in the clinic thereafter. [facility] 12-09-2021 Note CONSULTATION CONSULTATION DATE: 12/09/2021 [...] would like to proceed. CC: Jaymie Phoenix, ONLINE TUTOR [facility] Evaluation + Plan note No data available for this section General Surgery [place] Evaluation note Diagnosis COPD mixed type (CMS/HCC)- [...] dependence Tobacco use disorder BMI 40.0-44.9, adult (CMS/[facility]) Body mass index [BMI] 40.0-44.9, adult (Z68.41) Primary hypertension (CMS/HCC) Unspecified essential hypertension Bilateral lower extremity edema Edema of right lower extremity- Primary BMI 40.0-44.9, adult ([facility]) Shortness of breath COPD mixed type (CMS/HCC) Primary hypertension (CMS/HCC) Unspecified essential hypertension Bilateral lower extremity edema Bilateral lower extremity edema- Primary Primary hypertension (CMS/HCC) Unspecified essential hypertension COPD mixed type (CMS/HCC) Class 3 severe obesity due to excess calories without serious comorbidity with body mass index (BMI) of 40.0 to 44.9 in adult ([facility]) Tobacco dependence Tobacco use disorder Bilateral lower extremity edema- Primary Tobacco dependence Tobacco use disorder BMI 40.0-44.9, adult ([facility]) COPD mixed type ([facility]) WINSOME (obstructive sleep apnea) Obstructive sleep apnea (adult) (pediatric) Encounter for subsequent annual wellness visit (AWV) in Medicare patient- Primary Edema of right lower extremity Anxiety and depression ([facility]) Tobacco dependence Tobacco use disorder BMI 40.0-44.9, adult ([facility]) Fibromyalgia Unspecified myalgia and myositis Primary hypertension ([facility]/HCC) Unspecified essential hypertension COPD mixed type ([facility]/HCC) Mixed hyperlipidemia ([facility]/HCC[facility] Mixed hyperlipidemia documented in this encounter [facility] HealthcareEvaluation note* Diagnosis Primary hypertension ([facility])- Primary Unspecified essential hypertension Mixed hyperlipidemia (CMS/HCC) Mixed hyperlipidemia Fibromyalgia Unspecified myalgia and myositis Migraine without aura and without status migrainosus, not intractable (CMS/[facility]) Class 3 severe obesity due to excess calories without serious comorbidity with body mass index (BMI) of 40.0 to 44.9 in adult ([facility]) Tobacco dependence Tobacco use disorder Bilateral lower extremity edema Acute non-recurrent sinusitis of other sinus COPD mixed type (CMS/HCC) Open wound of second toe of left foot, initial encounter Open wound of left foot, initial encounter COPD mixed type (CMS/HCC)- Primary Tobacco dependence Tobacco use disorder BMI 40.0-44.9, adult (CMS/[facility]) Body mass index [BMI] 40.0-44.9, adult (Z68.41) Primary hypertension (CMS/HCC) Unspecified essential hypertension Bilateral lower extremity edema Edema of right lower extremity- Primary BMI 40.0-44.9, adult ([facility]) Shortness of breath COPD mixed type (CMS/HCC) Primary hypertension (CMS/HCC) Unspecified essential hypertension Bilateral lower extremity edema Bilateral lower extremity edema- Primary Primary hypertension (CMS/HCC) Unspecified essential hypertension COPD mixed type (CMS/HCC) Class 3 severe obesity due to excess calories without serious comorbidity with body mass index (BMI) of 40.0 to 44.9 in adult ([facility]) Tobacco dependence Tobacco use disorder Bilateral lower extremity edema- Primary Tobacco dependence Tobacco use disorder BMI 40.0-44.9, adult ([facility]) COPD mixed type ([facility]) WINSOME (obstructive sleep apnea) Obstructive sleep apnea (adult) (pediatric) Encounter for subsequent annual wellness visit (AWV) in Medicare patient- Primary Edema of right lower extremity Anxiety and depression ([facility]) Tobacco dependence Tobacco use disorder BMI 40.0-44.9, adult ([facility]) Fibromyalgia Unspecified myalgia and myositis Primary hypertension ([facility]) Unspecified essential hypertension COPD mixed type ([facility]) Fibromyalgia Unspecified myalgia and myositis documented in this encounter [facility] Healthcare[facility] note* Diagnosis Primary hypertension ([facility])- Primary Unspecified essential hypertension Mixed hyperlipidemia ([facility]) Mixed hyperlipidemia Fibromyalgia Unspecified myalgia and myositis Migraine without aura and without status migrainosus, not intractable ([facility]) Class 3 severe obesity due to excess calories without serious comorbidity with body mass index (BMI) of 40.0 to 44.9 in adult ([facility]) Tobacco dependence Tobacco use disorder Bilateral lower extremity edema Acute non-recurrent sinusitis of other sinus COPD mixed type (CMS/HCC) Open wound of second toe of left foot, initial encounter Open wound of left foot, initial encounter COPD mixed type (CMS/HCC)- Primary Tobacco dependence Tobacco use disorder BMI 40.0-44.9, adult ([facility]) Body mass index [BMI] 40.0-44.9, adult (Z68.41) Primary hypertension (CMS/HCC) Unspecified essential hypertension Bilateral lower extremity edema Edema of right lower extremity- Primary BMI 40.0-44.9, adult ([facility]) Shortness of breath COPD mixed type ([facility]) Primary hypertension (CMS/[facility]) Unspecified essential hypertension Bilateral lower extremity edema Bilateral lower extremity edema- Primary Primary hypertension ([facility]) Unspecified essential hypertension COPD mixed type (CMS/HCC) Class 3 severe obesity due to excess calories without serious comorbidity with body mass index (BMI) of 40.0 to 44.9 in adult ([facility]) Tobacco dependence Tobacco use disorder Bilateral lower extremity edema- Primary Tobacco dependence Tobacco use disorder BMI 40.0-44.9, adult ([facility]) COPD mixed type ([facility]) WINSOME (obstructive sleep apnea) Obstructive sleep apnea (adult) (pediatric) Encounter for subsequent annual wellness visit (AWV) in Medicare patient- Primary Edema of right lower extremity Anxiety and depression ([facility]) Tobacco dependence Tobacco use disorder BMI 40.0-44.9, adult ([facility]) Fibromyalgia Unspecified myalgia and myositis Primary hypertension ([facility]) Unspecified essential hypertension COPD mixed type ([facility]) WINSOME (obstructive sleep apnea)- Primary Obstructive sleep apnea (adult) (pediatric) COPD mixed type ([facility]) Primary hypertension ([facility]) Unspecified essential hypertension Fibromyalgia Unspecified myalgia and myositis BMI 40.0-44.9, adult ([facility]) Tobacco dependence Tobacco use disorder Mixed hyperlipidemia ([facility]) Mixed hyperlipidemia Vitamin D deficiency Vitamin B12 deficiency Other B-complex deficiencies COPD with acute exacerbation ([facility]) documented in this encounter [facility]* Diagnosis Fibromyalgia Unspecified myalgia and myositis Gastro-esophageal reflux disease without esophagitis documented in this encounter [facility]* Diagnosis Primary hypertension ([facility])- Primary Unspecified essential hypertension Mixed hyperlipidemia ([facility]) Mixed hyperlipidemia Fibromyalgia Unspecified myalgia and myositis Migraine without aura and without status migrainosus, not intractable ([facility]) Class 3 severe obesity due to excess calories without serious comorbidity with body mass index (BMI) of 40.0 to 44.9 in adult ([facility]) Tobacco dependence Tobacco use disorder Bilateral lower extremity edema Acute non-recurrent sinusitis of other sinus COPD mixed type ([facility]/HCC) Open wound of second toe of left foot, initial encounter Open wound of left foot, initial encounter COPD mixed type ([facility]/HCC)- Primary Tobacco dependence Tobacco use disorder BMI 40.0-44.9, adult ([facility]) Body mass index [BMI] 40.0-44.9, adult (Z68.41) Primary hypertension ([facility]) Unspecified essential hypertension Bilateral lower extremity edema Edema of right lower extremity- Primary BMI 40.0-44.9, adult ([facility]) Shortness of breath COPD mixed type ([facility]) Primary hypertension ([facility]) Unspecified essential hypertension Bilateral lower extremity edema Bilateral lower extremity edema- Primary Primary hypertension ([facility]) Unspecified essential hypertension COPD mixed type ([facility]) Class 3 severe obesity due to excess calories without serious comorbidity with body mass index (BMI) of 40.0 to 44.9 in adult ([facility]) Tobacco dependence Tobacco use disorder Bilateral lower extremity edema- Primary Tobacco dependence Tobacco use disorder BMI 40.0-44.9, adult ([facility]) COPD mixed type ([facility]) WINSOME (obstructive sleep apnea) Obstructive sleep apnea (adult) (pediatric) Encounter for subsequent annual wellness visit (AWV) in Medicare patient- Primary Edema of right lower extremity Anxiety and depression ([facility]) Tobacco dependence Tobacco use disorder BMI 40.0-44.9, adult ([facility]) Fibromyalgia Unspecified myalgia and myositis Primary hypertension ([facility]) Unspecified essential hypertension COPD mixed type ([facility]) WINSOME (obstructive sleep apnea)- Primary Obstructive sleep apnea (adult) (pediatric) COPD mixed type ([facility]) Primary hypertension ([facility]) Unspecified essential hypertension Fibromyalgia Unspecified myalgia and myositis BMI 40.0-44.9, adult ([facility]) Tobacco dependence Tobacco use disorder Mixed hyperlipidemia ([facility] Mixed hyperlipidemia Vitamin D deficiency Vitamin B12 deficiency Other B-complex deficiencies COPD with acute exacerbation ([facility]) Fibromyalgia Unspecified myalgia and myositis documented in this encounter [facility]* Diagnosis Primary hypertension ([facility])- Primary Unspecified essential hypertension Mixed hyperlipidemia ([facility]) Mixed hyperlipidemia Fibromyalgia Unspecified myalgia and myositis Migraine without aura and without status migrainosus, not intractable ([facility]) Class 3 severe obesity due to excess calories without serious comorbidity with body mass index (BMI) of 40.0 to 44.9 in adult ([facility]) Tobacco dependence Tobacco use disorder Bilateral lower extremity edema Acute non-recurrent sinusitis of other sinus COPD mixed type (CMS/[facility]) Open wound of second toe of left foot, initial encounter Open wound of left foot, initial encounter COPD mixed type ([facility]/HCC)- Primary Tobacco dependence Tobacco use disorder BMI 40.0-44.9, adult ([facility]) Body mass index [BMI] 40.0-44.9, adult (Z68.41) Primary hypertension ([facility]) Unspecified essential hypertension Bilateral lower extremity edema Edema of right lower extremity- Primary BMI 40.0-44.9, adult ([facility]) Shortness of breath COPD mixed type ([facility]) Primary hypertension ([facility]) Unspecified essential hypertension Bilateral lower extremity edema Bilateral lower extremity edema- Primary Primary hypertension ([facility]) Unspecified essential hypertension COPD mixed type ([facility]) Class 3 severe obesity due to excess calories without serious comorbidity with body mass index (BMI) of 40.0 to 44.9 in adult ([facility]) Tobacco dependence Tobacco use disorder Bilateral lower extremity edema- Primary Tobacco dependence Tobacco use disorder BMI 40.0-44.9, adult ([facility]) COPD mixed type ([facility]) WINSOME (obstructive sleep apnea) Obstructive sleep apnea (adult) (pediatric) Encounter for subsequent annual wellness visit (AWV) in Medicare patient- Primary Edema of right lower extremity Anxiety and depression ([facility]) Tobacco dependence Tobacco use disorder BMI 40.0-44.9, adult ([facility]) Fibromyalgia Unspecified myalgia and myositis Primary hypertension ([facility]) Unspecified essential hypertension COPD mixed type ([facility]) WINSOME (obstructive sleep apnea)- Primary Obstructive sleep apnea (adult) (pediatric) COPD mixed type ([facility]/HCC) Primary hypertension ([facility]) Unspecified essential hypertension Fibromyalgia Unspecified myalgia and myositis BMI 40.0-44.9, adult ([facility]) Tobacco dependence Tobacco use disorder Mixed hyperlipidemia ([facility] Mixed hyperlipidemia Vitamin D deficiency Vitamin B12 deficiency Other B-complex deficiencies COPD with acute exacerbation ([facility] COPD with acute exacerbation ([facility])- Primary Morbid (severe) obesity due to excess calories ([facility]) Body mass index (BMI) 40.0-44.9, adult ([facility]) WINSOME (obstructive sleep apnea) Obstructive sleep apnea (adult) (pediatric) COPD mixed type ([facility]) Gastroesophageal reflux disease, unspecified whether esophagitis present Tobacco dependence Tobacco use disorder Gastro-esophageal reflux disease without esophagitis Tremor Abnormal involuntary movements documented in this encounter [facility] HealthcareEvaluation note* Diagnosis Primary hypertension ([facility])- Primary Unspecified essential hypertension Mixed hyperlipidemia ([facility]) Mixed hyperlipidemia Fibromyalgia Unspecified myalgia and myositis Migraine without aura and without status migrainosus, not intractable ([facility]) Class 3 severe obesity due to excess calories without serious comorbidity with body mass index (BMI) of 40.0 to 44.9 in adult ([facility]) Tobacco dependence Tobacco use disorder Bilateral lower extremity edema Acute non-recurrent sinusitis of other sinus COPD mixed type ([facility]) Open wound of second toe of left foot, initial encounter Open wound of left foot, initial encounter COPD mixed type ([facility])- Primary Tobacco dependence Tobacco use disorder BMI 40.0-44.9, adult ([facility]) Body mass index [BMI] 40.0-44.9, adult (Z68.41) Primary hypertension ([facility]) Unspecified essential hypertension Bilateral lower extremity edema Edema of right lower extremity- Primary BMI 40.0-44.9, adult ([facility]) Shortness of breath COPD mixed type ([facility]) Primary hypertension ([facility]) Unspecified essential hypertension Bilateral lower extremity edema Bilateral lower extremity edema- Primary Primary hypertension ([facility]) Unspecified essential hypertension COPD mixed type ([facility]) Class 3 severe obesity due to excess calories without serious comorbidity with body mass index (BMI) of 40.0 to 44.9 in adult ([facility]) Tobacco dependence Tobacco use disorder Bilateral lower extremity edema- Primary Tobacco dependence Tobacco use disorder BMI 40.0-44.9, adult ([facility]) COPD mixed type ([facility]) WINSOME (obstructive sleep apnea) Obstructive sleep apnea (adult) (pediatric) Encounter for subsequent annual wellness visit (AWV) in Medicare patient- Primary Edema of right lower extremity Anxiety and depression ([facility]) Tobacco dependence Tobacco use disorder BMI 40.0-44.9, adult ([facility]) Fibromyalgia Unspecified myalgia and myositis Primary hypertension ([facility]) Unspecified essential hypertension COPD mixed type ([facility]) WINSOME (obstructive sleep apnea)- Primary Obstructive sleep apnea (adult) (pediatric) COPD mixed type ([facility]/HCC) Primary hypertension ([facility]) Unspecified essential hypertension Fibromyalgia Unspecified myalgia and myositis BMI 40.0-44.9, adult ([facility] Tobacco dependence Tobacco use disorder Mixed hyperlipidemia ([facility] Mixed hyperlipidemia Vitamin D deficiency Vitamin B12 deficiency Other B-complex deficiencies COPD with acute exacerbation ([facility] COPD with acute exacerbation ([facility])- Primary Morbid (severe) obesity due to excess calories ([facility]) Body mass index (BMI) 40.0-44.9, adult ([facility]) WINSOME (obstructive sleep apnea) Obstructive sleep apnea (adult) (pediatric) COPD mixed type ([facility]) Gastroesophageal reflux disease, unspecified whether esophagitis present Tobacco dependence Tobacco use disorder Gastro-esophageal reflux disease without esophagitis Tremor Abnormal involuntary movements Drug-induced Parkinson's disease ([facility])- Primary Secondary Parkinsonism Tremor Abnormal involuntary movements documented in this encounter [facility] HealthcareEvaluation note* Diagnosis Primary hypertension ([facility])- Primary Unspecified essential hypertension Mixed hyperlipidemia ([facility]) Mixed hyperlipidemia Fibromyalgia Unspecified myalgia and myositis Migraine without aura and without status migrainosus, not intractable ([facility]) Class 3 severe obesity due to excess calories without serious comorbidity with body mass index (BMI) of 40.0 to 44.9 in adult ([facility]) Tobacco dependence Tobacco use disorder Bilateral lower extremity edema Acute non-recurrent sinusitis of other sinus COPD mixed type ([facility]) Open wound of second toe of left foot, initial encounter Open wound of left foot, initial encounter COPD mixed type ([facility])- Primary Tobacco dependence Tobacco use disorder BMI 40.0-44.9, adult ([facility]) Body mass index [BMI] 40.0-44.9, adult (Z68.41) Primary hypertension ([facility]) Unspecified essential hypertension Bilateral lower extremity edema Edema of right lower extremity- Primary BMI 40.0-44.9, adult ([facility]) Shortness of breath COPD mixed type ([facility]) Primary hypertension ([facility]) Unspecified essential hypertension Bilateral lower extremity edema Bilateral lower extremity edema- Primary Primary hypertension ([facility]) Unspecified essential hypertension COPD mixed type ([facility]) Class 3 severe obesity due to excess calories without serious comorbidity with body mass index (BMI) of 40.0 to 44.9 in adult ([facility]) Tobacco dependence Tobacco use disorder Bilateral lower extremity edema- Primary Tobacco dependence Tobacco use disorder BMI 40.0-44.9, adult ([facility]) COPD mixed type ([facility]) WINSOME (obstructive sleep apnea) Obstructive sleep apnea (adult) (pediatric) Encounter for subsequent annual wellness visit (AWV) in Medicare patient- Primary Edema of right lower extremity Anxiety and depression ([facility]) Tobacco dependence Tobacco use disorder BMI 40.0-44.9, adult ([facility]) Fibromyalgia Unspecified myalgia and myositis Primary hypertension ([facility]) Unspecified essential hypertension COPD mixed type ([facility]) WINSOME (obstructive sleep apnea)- Primary Obstructive sleep apnea (adult) (pediatric) COPD mixed type ([facility]) Primary hypertension ([facility]) Unspecified essential hypertension Fibromyalgia Unspecified myalgia and myositis BMI 40.0-44.9, adult ([facility]) Tobacco dependence Tobacco use disorder Mixed hyperlipidemia ([facility]) Mixed hyperlipidemia Vitamin D deficiency Vitamin B12 deficiency Other B-complex deficiencies COPD with acute exacerbation ([facility]) COPD with acute exacerbation ([facility])- Primary Morbid (severe) obesity due to excess calories ([facility]) Body mass index (BMI) 40.0-44.9, adult ([facility]) WINSOME (obstructive sleep apnea) Obstructive sleep apnea (adult) (pediatric) COPD mixed type ([facility]) Gastroesophageal reflux disease, unspecified whether esophagitis present Tobacco dependence Tobacco use disorder Gastro-esophageal reflux disease without esophagitis Tremor Abnormal involuntary movements Fibromyalgia Unspecified myalgia and myositis Localized edema Edema Mixed hyperlipidemia ([facility]) Mixed hyperlipidemia documented in this encounter [facility] note* Diagnosis Primary hypertension ([facility])- Primary Unspecified essential hypertension Mixed hyperlipidemia ([facility]) Mixed hyperlipidemia Fibromyalgia Unspecified myalgia and myositis Migraine without aura and without status migrainosus, not intractable ([facility]) Class 3 severe obesity due to excess calories without serious comorbidity with body mass index (BMI) of 40.0 to 44.9 in adult ([facility]) Tobacco dependence Tobacco use disorder Bilateral lower extremity edema Acute non-recurrent sinusitis of other sinus COPD mixed type ([facility]) Open wound of second toe of left foot, initial encounter Open wound of left foot, initial encounter COPD mixed type ([facility]/HCC)- Primary Tobacco dependence Tobacco use disorder BMI 40.0-44.9, adult ([facility]) Body mass index [BMI] 40.0-44.9, adult (Z68.41) Primary hypertension ([facility]) Unspecified essential hypertension Bilateral lower extremity edema Edema of right lower extremity- Primary BMI 40.0-44.9, adult ([facility]) Shortness of breath COPD mixed type ([facility]) Primary hypertension ([facility]) Unspecified essential hypertension Bilateral lower extremity edema Bilateral lower extremity edema- Primary Primary hypertension ([facility]) Unspecified essential hypertension COPD mixed type ([facility]) Class 3 severe obesity due to excess calories without serious comorbidity with body mass index (BMI) of 40.0 to 44.9 in adult ([facility]) Tobacco dependence Tobacco use disorder Bilateral lower extremity edema- Primary Tobacco dependence Tobacco use disorder BMI 40.0-44.9, adult ([facility]) COPD mixed type ([facility]) WINSOME (obstructive sleep apnea) Obstructive sleep apnea (adult) (pediatric) Encounter for subsequent annual wellness visit (AWV) in Medicare patient- Primary Edema of right lower extremity Anxiety and depression ([facility]) Tobacco dependence Tobacco use disorder BMI 40.0-44.9, adult ([facility]) Fibromyalgia Unspecified myalgia and myositis Primary hypertension ([facility]) Unspecified essential hypertension COPD mixed type ([facility]) WINSOME (obstructive sleep apnea)- Primary Obstructive sleep apnea (adult) (pediatric) COPD mixed type ([facility]) Primary hypertension ([facility]) Unspecified essential hypertension Fibromyalgia Unspecified myalgia and myositis BMI 40.0-44.9, adult ([facility]) Tobacco dependence Tobacco use disorder Mixed hyperlipidemia ([facility]) Mixed hyperlipidemia Vitamin D deficiency Vitamin B12 deficiency Other B-complex deficiencies COPD with acute exacerbation ([facility]) COPD with acute exacerbation ([facility])- Primary Morbid (severe) obesity due to excess calories ([facility]) Body mass index (BMI) 40.0-44.9, adult ([facility]) WINSOME (obstructive sleep apnea) Obstructive sleep apnea (adult) (pediatric) COPD mixed type (CMS/HCC) Gastroesophageal reflux disease, unspecified whether esophagitis present Tobacco dependence Tobacco use disorder Gastro-esophageal reflux disease without esophagitis Tremor Abnormal involuntary movements Environmental and seasonal allergies- Primary COPD mixed type (CMS/HCC) documented in this encounter [facility] HealthcareEvaluation note* Diagnosis Primary hypertension (CMS/HCC)- Primary [...] dependence Tobacco use disorder BMI 40.0-44.9, adult (CMS/[facility]) Body mass index [BMI] 40.0-44.9, adult (Z68.41) [...] Unspecified myalgia and myositis BMI 40.0-44.9, adult ([facility]) Tobacco dependence Tobacco use disorder Mixed hyperlipidemia (CMS/HCC) Mixed hyperlipidemia Vitamin D deficiency Vitamin B12 deficiency Other B-complex deficiencies COPD with acute exacerbation (CMS/HCC) COPD with acute exacerbation ([facility])- Primary Morbid (severe) obesity due to excess calories (CMS/[facility]) Body mass index (BMI) 40.0-44.9, adult ([facility]) WINSOME (obstructive sleep apnea) Obstructive sleep apnea (adult) (pediatric) COPD mixed type (CMS/HCC) Gastroesophageal reflux disease, unspecified whether esophagitis present Tobacco dependence Tobacco use disorder Gastro-esophageal reflux disease without esophagitis Tremor Abnormal involuntary movements Fibromyalgia Unspecified myalgia and myositis documented in this encounter [facility] HealthcareEvaluation note* Diagnosis Primary hypertension ([facility])- Primary Unspecified essential hypertension Mixed hyperlipidemia ([facility]) Mixed hyperlipidemia Fibromyalgia Unspecified myalgia and myositis Migraine without aura and without status migrainosus, not intractable ([facility]) Class 3 severe obesity due to excess [...] dependence Tobacco use disorder BMI 40.0-44.9, adult ([facility]) Body mass index [BMI] 40.0-44.9, adult (Z68.41) Primary hypertension (CMS/HCC) Unspecified essential hypertension Bilateral lower extremity edema Edema of right lower extremity- Primary BMI 40.0-44.9, adult (CMS/[facility]) Shortness of breath COPD mixed type (CMS/HCC) [...] dependence Tobacco use disorder BMI 40.0-44.9, adult ([facility]) COPD mixed type ([facility]) WINSOME (obstructive sleep apnea) Obstructive sleep apnea (adult) (pediatric) Encounter for subsequent annual wellness visit (AWV) in Medicare patient- Primary Edema of right lower extremity Anxiety and depression ([facility]) Tobacco dependence Tobacco use disorder BMI 40.0-44.9, adult ([facility]) Fibromyalgia Unspecified myalgia and myositis Primary hypertension ([facility]) Unspecified essential hypertension COPD mixed type ([facility]) WINSOME (obstructive sleep apnea)- Primary Obstructive sleep apnea (adult) (pediatric) COPD mixed type ([facility]) Primary hypertension ([facility]) Unspecified essential hypertension Fibromyalgia Unspecified myalgia and myositis BMI 40.0-44.9, adult ([facility]) Tobacco dependence Tobacco use disorder Mixed hyperlipidemia ([facility] Mixed hyperlipidemia Vitamin D deficiency Vitamin B12 deficiency Other B-complex deficiencies COPD with acute exacerbation ([facility] COPD with acute exacerbation ([facility])- Primary Morbid (severe) obesity due to excess calories ([facility]) Body mass index (BMI) 40.0-44.9, adult ([facility]) WINSOME (obstructive sleep apnea) Obstructive sleep apnea (adult) (pediatric) COPD mixed type ([facility]) Gastroesophageal reflux disease, unspecified whether esophagitis present Tobacco dependence Tobacco use disorder Gastro-esophageal reflux disease without esophagitis Tremor Abnormal involuntary movements Mixed hyperlipidemia ([facility]) Mixed hyperlipidemia documented in this encounter [facility] HealthcareEvaluation note* Diagnosis Primary hypertension ([facility])- Primary Unspecified essential hypertension Mixed hyperlipidemia ([facility]) Mixed hyperlipidemia Fibromyalgia Unspecified myalgia and myositis Migraine without aura and without status migrainosus, not intractable ([facility]) Class 3 severe obesity due to excess calories without serious comorbidity with body mass index (BMI) of 40.0 to 44.9 in adult Tobacco dependence Tobacco use disorder Bilateral lower extremity edema Acute non-recurrent sinusitis of other sinus COPD mixed type ([facility]) Open wound of second toe of left foot, initial encounter Open wound of left foot, initial encounter COPD mixed type ([facility])- Primary Tobacco dependence Tobacco use disorder BMI 40.0-44.9, adult ([facility]) Body mass index [BMI] 40.0-44.9, adult (Z68.41) Primary hypertension (CMS/HCC) Unspecified essential hypertension Bilateral lower extremity edema Edema of right lower extremity- Primary BMI 40.0-44.9, adult ([facility]/HCC) Shortness of breath COPD mixed type [...] dependence Tobacco use disorder BMI 40.0-44.9, adult ([facility]/HCC) COPD mixed type ([facility]/HCC) WINSOME (obstructive sleep apnea) Obstructive sleep apnea (adult) (pediatric) Encounter for subsequent annual wellness visit (AWV) in Medicare patient- Primary Edema of right lower extremity Anxiety and depression ([facility]) Tobacco dependence Tobacco use disorder BMI 40.0-44.9, adult ([facility]) Fibromyalgia Unspecified myalgia and myositis Primary hypertension ([facility]/HCC) Unspecified essential hypertension COPD mixed type (CMS/HCC) WINSOME (obstructive sleep apnea)- Primary Obstructive sleep apnea (adult) (pediatric) COPD mixed type (CMS/HCC) Primary hypertension ([facility]/HCC) Unspecified essential hypertension Fibromyalgia Unspecified myalgia and myositis BMI 40.0-44.9, adult ([facility]) Tobacco dependence Tobacco use disorder Mixed hyperlipidemia ([facility] Mixed hyperlipidemia Vitamin D deficiency Vitamin B12 deficiency Other B-complex deficiencies COPD with acute exacerbation ([facility]) COPD with acute exacerbation ([facility])- Primary Morbid (severe) obesity due to excess calories ([facility]) Body mass index (BMI) 40.0-44.9, adult ([facility]) WINSOME (obstructive sleep apnea) Obstructive sleep apnea (adult) (pediatric) COPD mixed type ([facility]/HCC) Gastroesophageal reflux disease, unspecified whether esophagitis present Tobacco dependence Tobacco use disorder Gastro-esophageal reflux disease without esophagitis Tremor Abnormal involuntary movements Tobacco dependence- Primary Tobacco use disorder documented in this encounter [facility]* Diagnosis Primary hypertension ([facility])- Primary Unspecified essential hypertension Mixed hyperlipidemia ([facility]) Mixed hyperlipidemia Fibromyalgia Unspecified myalgia and myositis Migraine without aura and without status migrainosus, not intractable ([facility]/HCC) Class 3 severe obesity due to [...] dependence Tobacco use disorder BMI 40.0-44.9, adult (CMS/[facility]) Body mass index [BMI] 40.0-44.9, adult (Z68.41) Primary hypertension (CMS/[facility]) Unspecified essential hypertension Bilateral lower extremity edema Edema of right lower extremity- Primary BMI 40.0-44.9, adult ([facility]) Shortness of breath COPD mixed type (CMS/HCC) Primary hypertension (CMS/HCC) Unspecified essential hypertension Bilateral lower extremity edema Bilateral lower extremity edema- Primary Primary hypertension (CMS/[facility]) Unspecified essential hypertension COPD mixed type (CMS/[facility]) Class 3 severe obesity due to excess calories without serious comorbidity with body mass index (BMI) of 40.0 to 44.9 in adult Tobacco dependence Tobacco use disorder Bilateral lower extremity edema- Primary Tobacco dependence Tobacco use disorder BMI 40.0-44.9, adult ([facility]) COPD mixed type ([facility]) WINSOME (obstructive sleep apnea) Obstructive sleep apnea (adult) (pediatric) Encounter for subsequent annual wellness visit (AWV) in Medicare patient- Primary Edema of right lower extremity Anxiety and depression ([facility]) Tobacco dependence Tobacco use disorder BMI 40.0-44.9, adult ([facility]) Fibromyalgia Unspecified myalgia and myositis Primary hypertension (CMS/HCC) Unspecified essential hypertension COPD mixed type (CMS/HCC) WINSOME (obstructive sleep apnea)- Primary Obstructive sleep apnea (adult) (pediatric) COPD mixed type (CMS/HCC) Primary hypertension (CMS/HCC) Unspecified essential hypertension Fibromyalgia Unspecified myalgia and myositis BMI 40.0-44.9, adult ([facility]) Tobacco dependence Tobacco use disorder Mixed hyperlipidemia ([facility] Mixed hyperlipidemia Vitamin D deficiency Vitamin B12 deficiency Other B-complex deficiencies COPD with acute exacerbation (CMS/[facility]) COPD with acute exacerbation ([facility])- Primary Morbid (severe) obesity due to excess calories (CMS/[facility]) Body mass index (BMI) 40.0-44.9, adult ([facility]) WINSOME (obstructive sleep apnea) Obstructive sleep apnea (adult) (pediatric) COPD mixed type ([facility]) Gastroesophageal reflux disease, unspecified whether esophagitis present Tobacco dependence Tobacco use disorder Gastro-esophageal reflux disease without esophagitis Tremor Abnormal involuntary movements Fibromyalgia Unspecified myalgia and myositis documented in this encounter [facility] HealthcareEvaluation note* Diagnosis Primary hypertension- Primary Unspecified essential hypertension Mixed hyperlipidemia Mixed hyperlipidemia Fibromyalgia Unspecified myalgia and myositis Migraine without aura and without status migrainosus, not intractable Class 3 severe obesity due to excess calories without serious comorbidity with body mass index (BMI) of 40.0 to 44.9 in adult ([facility] [place] Tobacco dependence Tobacco use disorder Bilateral lower extremity edema Acute non-recurrent sinusitis of other sinus COPD mixed type ([facility]) Open wound of second toe of left foot, initial encounter Open wound of left foot, initial encounter COPD mixed type (HCC)- Primary Tobacco dependence Tobacco use disorder BMI 40.0-44.9, adult ([facility] [place] Body mass index [BMI] 40.0-44.9, adult (Z68.41) Primary hypertension Unspecified essential hypertension Bilateral lower extremity edema Edema of right lower extremity- Primary BMI 40.0-44.9, adult ([facility] [place] Shortness of breath COPD mixed type (HCC) Primary hypertension Unspecified essential hypertension Bilateral lower extremity edema Bilateral lower extremity edema- Primary Primary hypertension Unspecified essential hypertension COPD mixed type (HCC) Class 3 severe obesity due to excess calories without serious comorbidity with body mass index (BMI) of 40.0 to 44.9 in adult [place] Tobacco dependence Tobacco use disorder Bilateral lower extremity edema- Primary Tobacco dependence Tobacco use disorder BMI 40.0-44.9, adult ([facility] COPD mixed type ([facility]) WINSOME (obstructive sleep apnea) Obstructive sleep apnea (adult) (pediatric) Encounter for subsequent annual wellness visit (AWV) in Medicare patient- Primary Edema of right lower extremity Anxiety and depression Tobacco dependence Tobacco use disorder BMI 40.0-44.9, adult ([facility] Fibromyalgia Unspecified myalgia and myositis Primary hypertension Unspecified essential hypertension COPD mixed type (HCC) WINSOME (obstructive sleep apnea)- Primary Obstructive sleep apnea (adult) (pediatric) COPD mixed type (HCC) Primary hypertension Unspecified essential hypertension Fibromyalgia Unspecified myalgia and myositis BMI 40.0-44.9, adult ([facility] [place] Tobacco dependence Tobacco use disorder Mixed hyperlipidemia Mixed hyperlipidemia Vitamin D deficiency Vitamin B12 deficiency Other B-complex deficiencies COPD with acute exacerbation (HCC) COPD with acute exacerbation (HCC)- Primary Morbid (severe) obesity due to excess calories ([facility] [place]) Body mass index (BMI) 40.0-44.9, adult ([facility]) WINSOME (obstructive sleep apnea) Obstructive sleep apnea (adult) (pediatric) COPD mixed type (HCC) Gastroesophageal reflux disease, unspecified whether esophagitis present Tobacco dependence Tobacco use disorder Gastro-esophageal reflux disease without esophagitis Tremor Abnormal involuntary movements Encounter for subsequent annual wellness visit (AWV) in Medicare patient- Primary Chronic kidney disease, stage 3a ([facility]) WINSOME (obstructive sleep apnea) Obstructive sleep apnea (adult) (pediatric) COPD mixed type ([facility]) Gastroesophageal reflux disease, unspecified whether esophagitis present [...] (BMI) of 40.0 to 44.9 in adult ([facility] Tobacco dependence Tobacco use disorder Bilateral lower extremity edema Acute non-recurrent sinusitis of other sinus COPD mixed type ([facility]) Open wound of second toe of left foot, initial encounter Open wound of left foot, initial encounter COPD mixed type (HCC)- Primary Tobacco dependence Tobacco use disorder BMI 40.0-44.9, adult ([facility] [place] Body mass index [BMI] 40.0-44.9, adult (Z68.41) Primary hypertension Unspecified essential hypertension Bilateral lower extremity edema Edema of right lower extremity- Primary BMI 40.0-44.9, adult ([facility]) Shortness of breath COPD mixed type ([facility]) Primary hypertension Unspecified essential hypertension Bilateral lower extremity edema Bilateral lower extremity edema- Primary Primary hypertension Unspecified essential hypertension COPD mixed type (HCC) Class 3 severe obesity due to excess calories without serious comorbidity with body mass index (BMI) of 40.0 to 44.9 in adult ([facility] [place] Tobacco dependence Tobacco use disorder Bilateral lower extremity edema- Primary Tobacco dependence Tobacco use disorder BMI 40.0-44.9, adult ([facility] [place]) COPD mixed type (HCC) WINSOME (obstructive sleep apnea) Obstructive sleep apnea (adult) (pediatric) Encounter for subsequent annual wellness visit (AWV) in Medicare patient- Primary Edema of right lower extremity Anxiety and depression Tobacco dependence Tobacco use disorder BMI 40.0-44.9, adult ([facility] Fibromyalgia Unspecified myalgia and myositis Primary hypertension Unspecified essential hypertension COPD mixed type (HCC) WINSOME (obstructive sleep apnea)- Primary Obstructive sleep apnea (adult) (pediatric) COPD mixed type (HCC) Primary hypertension Unspecified essential hypertension Fibromyalgia Unspecified myalgia and myositis BMI 40.0-44.9, adult ([facility]) Tobacco dependence Tobacco use disorder Mixed hyperlipidemia Mixed hyperlipidemia Vitamin D deficiency Vitamin B12 deficiency Other B-complex deficiencies COPD with acute exacerbation (HCC) COPD with acute exacerbation (HCC)- Primary Morbid (severe) obesity due to excess calories ([facility] [place]) Body mass index (BMI) 40.0-44.9, adult ([facility]) WINSOME (obstructive sleep apnea) Obstructive sleep apnea (adult) (pediatric) COPD mixed type (HCC) Gastroesophageal reflux disease, unspecified whether esophagitis present Tobacco dependence Tobacco use disorder Gastro-esophageal reflux disease without esophagitis Tremor Abnormal involuntary movements Encounter for subsequent annual wellness visit (AWV) in Medicare patient- Primary Chronic kidney disease, stage 3a ([facility]) WINSOME (obstructive sleep apnea) Obstructive sleep apnea [...] (BMI) of 40.0 to 44.9 in adult ([facility]) Tobacco dependence Tobacco use disorder Bilateral lower extremity edema Acute non-recurrent sinusitis of other sinus COPD mixed type (HCC) Open wound of second toe of left foot, initial encounter Open wound of left foot, initial encounter COPD mixed type (HCC)- Primary Tobacco dependence Tobacco use disorder BMI 40.0-44.9, adult ([facility] Body mass index [BMI] 40.0-44.9, adult (Z68.41) Primary hypertension Unspecified essential hypertension Bilateral lower extremity edema Edema of right lower extremity- Primary BMI 40.0-44.9, adult ([facility]) Shortness of breath COPD mixed type (HCC) Primary hypertension Unspecified essential hypertension Bilateral lower extremity edema Bilateral lower extremity edema- Primary Primary hypertension Unspecified essential hypertension COPD mixed type (HCC) Class 3 severe obesity due to excess calories without serious comorbidity with body mass index (BMI) of 40.0 to 44.9 in adult ([facility] [place] Tobacco dependence Tobacco use disorder Bilateral lower extremity edema- Primary Tobacco dependence Tobacco use disorder BMI 40.0-44.9, adult ([facility]) COPD mixed type ([facility]) WINSOME (obstructive sleep apnea) Obstructive sleep apnea (adult) (pediatric) Encounter for subsequent annual wellness visit (AWV) in Medicare patient- Primary Edema of right lower extremity Anxiety and depression Tobacco dependence Tobacco use disorder BMI 40.0-44.9, adult ([facility]) Fibromyalgia Unspecified myalgia and myositis Primary hypertension Unspecified essential hypertension COPD mixed type (HCC) WINSOME (obstructive sleep apnea)- Primary Obstructive sleep apnea (adult) (pediatric) COPD mixed type (HCC) Primary hypertension Unspecified essential hypertension Fibromyalgia Unspecified myalgia and myositis BMI 40.0-44.9, adult ([facility] Tobacco dependence Tobacco use disorder Mixed hyperlipidemia Mixed hyperlipidemia Vitamin D deficiency Vitamin B12 deficiency Other B-complex deficiencies COPD with acute exacerbation (HCC) COPD with acute exacerbation (HCC)- Primary Morbid (severe) obesity due to excess calories ([facility]) Body mass index (BMI) 40.0-44.9, adult ([facility]) WINSOME (obstructive sleep apnea) Obstructive sleep apnea (adult) (pediatric) COPD mixed type (HCC) Gastroesophageal reflux disease, unspecified whether esophagitis present Tobacco dependence Tobacco use disorder Gastro-esophageal reflux disease without esophagitis Tremor Abnormal involuntary movements Encounter for subsequent annual wellness visit (AWV) in Medicare patient- Primary Chronic kidney disease, stage 3a ([facility]) WINSOME (obstructive sleep apnea) Obstructive sleep apnea [...] unspecified laterality- Primary documented in this encounter [facility] HealthcareEvaluation note* Diagnosis Primary hypertension- Primary Unspecified essential hypertension Mixed hyperlipidemia Mixed hyperlipidemia Fibromyalgia Unspecified myalgia and myositis Migraine without aura and without status migrainosus, not intractable Class 3 severe obesity due to excess calories without serious comorbidity with body mass index (BMI) of 40.0 to 44.9 in adult ([facility] Tobacco dependence Tobacco use disorder Bilateral lower extremity edema Acute non-recurrent sinusitis of other sinus COPD mixed type ([facility]) Open wound of second toe of left foot, initial encounter Open wound of left foot, initial encounter COPD mixed type (HCC)- Primary Tobacco dependence Tobacco use disorder BMI 40.0-44.9, adult ([facility] Body mass index [BMI] 40.0-44.9, adult (Z68.41) Primary hypertension Unspecified essential hypertension Bilateral lower extremity edema Edema of right lower extremity- Primary BMI 40.0-44.9, adult ([facility]) Shortness of breath COPD mixed type ([facility]) Primary hypertension Unspecified essential hypertension Bilateral lower extremity edema Bilateral lower extremity edema- Primary Primary hypertension Unspecified essential hypertension COPD mixed type (HCC) Class 3 severe obesity due to excess calories without serious comorbidity with body mass index (BMI) of 40.0 to 44.9 in adult ([facility] Tobacco dependence Tobacco use disorder Bilateral lower extremity edema- Primary Tobacco dependence Tobacco use disorder BMI 40.0-44.9, adult ([facility]) COPD mixed type (HCC) WINSOME (obstructive sleep apnea) Obstructive sleep apnea (adult) (pediatric) Encounter for subsequent annual wellness visit (AWV) in Medicare patient- Primary Edema of right lower extremity Anxiety and depression Tobacco dependence Tobacco use disorder BMI 40.0-44.9, adult ([facility]) Fibromyalgia Unspecified myalgia and myositis Primary hypertension Unspecified essential hypertension COPD mixed type ([facility]) WINSOME (obstructive sleep apnea)- Primary Obstructive sleep apnea (adult) (pediatric) COPD mixed type (HCC) Primary hypertension Unspecified essential hypertension Fibromyalgia Unspecified myalgia and myositis BMI 40.0-44.9, adult ([facility] Tobacco dependence Tobacco use disorder Mixed hyperlipidemia Mixed hyperlipidemia Vitamin D deficiency Vitamin B12 deficiency Other B-complex deficiencies COPD with acute exacerbation (HCC) COPD with acute exacerbation (HCC)- Primary Morbid (severe) obesity due to excess calories ([facility]) Body mass index (BMI) 40.0-44.9, adult ([facility]) WINSOME (obstructive sleep apnea) Obstructive sleep apnea (adult) (pediatric) COPD mixed type (HCC) Gastroesophageal reflux disease, unspecified whether esophagitis present Tobacco dependence Tobacco use disorder Gastro-esophageal reflux disease without esophagitis Tremor Abnormal involuntary movements Encounter for subsequent annual wellness visit (AWV) in Medicare patient- Primary Chronic kidney disease, stage 3a ([facility]) WINSOME (obstructive sleep apnea) Obstructive sleep apnea (adult) (pediatric) COPD mixed type ([facility]) Gastroesophageal reflux disease, unspecified whether esophagitis present [...] Tobacco use disorder documented in this encounter [facility] HealthcareEvaluation note* Diagnosis Primary hypertension- Primary Unspecified essential hypertension Mixed hyperlipidemia Mixed hyperlipidemia Fibromyalgia Unspecified myalgia and myositis Migraine without aura and without status migrainosus, not intractable Class 3 severe obesity due to excess calories without serious comorbidity with body mass index (BMI) of 40.0 to 44.9 in adult ([facility] Tobacco dependence Tobacco use disorder Bilateral lower extremity edema Acute non-recurrent sinusitis of other sinus COPD mixed type ([facility]) Open wound of second toe of left foot, initial encounter Open wound of left foot, initial encounter COPD mixed type (HCC)- Primary Tobacco dependence Tobacco use disorder BMI 40.0-44.9, adult ([facility] Body mass index [BMI] 40.0-44.9, adult (Z68.41) Primary hypertension Unspecified essential hypertension Bilateral lower extremity edema Edema of right lower extremity- Primary BMI 40.0-44.9, adult ([facility]) Shortness of breath COPD mixed type ([facility]) Primary hypertension Unspecified essential hypertension Bilateral lower extremity edema Bilateral lower extremity edema- Primary Primary hypertension Unspecified essential hypertension COPD mixed type (HCC) Class 3 severe obesity due to excess calories without serious comorbidity with body mass index (BMI) of 40.0 to 44.9 in adult ([facility] Tobacco dependence Tobacco use disorder Bilateral lower extremity edema- Primary Tobacco dependence Tobacco use disorder BMI 40.0-44.9, adult ([facility]) COPD mixed type ([facility]) WINSOME (obstructive sleep apnea) Obstructive sleep apnea (adult) (pediatric) Encounter for subsequent annual wellness visit (AWV) in Medicare patient- Primary Edema of right lower extremity Anxiety and depression Tobacco dependence Tobacco use disorder BMI 40.0-44.9, adult ([facility]) Fibromyalgia Unspecified myalgia and myositis Primary hypertension Unspecified essential hypertension COPD mixed type ([facility]) WINSOME (obstructive sleep apnea)- Primary Obstructive sleep apnea (adult) (pediatric) COPD mixed type ([facility]) Primary hypertension Unspecified essential hypertension Fibromyalgia Unspecified myalgia and myositis BMI 40.0-44.9, adult ([facility] Tobacco dependence Tobacco use disorder Mixed hyperlipidemia Mixed hyperlipidemia Vitamin D deficiency Vitamin B12 deficiency Other B-complex deficiencies COPD with acute exacerbation (HCC) COPD with acute exacerbation (HCC)- Primary Morbid (severe) obesity due to excess calories ([facility]) Body mass index (BMI) 40.0-44.9, adult ([facility]) WINSOME (obstructive sleep apnea) Obstructive sleep apnea (adult) (pediatric) COPD mixed type (HCC) Gastroesophageal reflux disease, unspecified whether esophagitis present Tobacco dependence Tobacco use disorder Gastro-esophageal reflux disease without esophagitis Tremor Abnormal involuntary movements Encounter for subsequent annual wellness visit (AWV) in Medicare patient- Primary Chronic kidney disease, stage 3a ([facility]) WINSOME (obstructive sleep apnea) Obstructive sleep apnea [...] unspecified laterality- Primary documented in this encounter [facility] HealthcareEvaluation note* Diagnosis Primary hypertension- Primary Unspecified essential hypertension Mixed hyperlipidemia Mixed hyperlipidemia Fibromyalgia Unspecified myalgia and myositis Migraine without aura and without status migrainosus, not intractable Class 3 severe obesity due to excess calories without serious comorbidity with body mass index (BMI) of 40.0 to 44.9 in adult ([facility] Tobacco dependence Tobacco use disorder Bilateral lower extremity edema Acute non-recurrent sinusitis of other sinus COPD mixed type (HCC) Open wound of second toe of left foot, initial encounter Open wound of left foot, initial encounter COPD mixed type (HCC)- Primary Tobacco dependence Tobacco use disorder BMI 40.0-44.9, adult ([facility] Body mass index [BMI] 40.0-44.9, adult (Z68.41) Primary hypertension Unspecified essential hypertension Bilateral lower extremity edema Edema of right lower extremity- Primary BMI 40.0-44.9, adult ([facility] Shortness of breath COPD mixed type (HCC) Primary hypertension Unspecified essential hypertension Bilateral lower extremity edema Bilateral lower extremity edema- Primary Primary hypertension Unspecified essential hypertension COPD mixed type (HCC) Class 3 severe obesity due to excess calories without serious comorbidity with body mass index (BMI) of 40.0 to 44.9 in adult ([facility] Tobacco dependence Tobacco use disorder Bilateral lower extremity edema- Primary Tobacco dependence Tobacco use disorder BMI 40.0-44.9, adult ([facility] COPD mixed type (HCC) WINSOME (obstructive sleep apnea) Obstructive sleep apnea (adult) (pediatric) Encounter for subsequent annual wellness visit (AWV) in Medicare patient- Primary Edema of right lower extremity Anxiety and depression Tobacco dependence Tobacco use disorder BMI 40.0-44.9, adult ([facility] Fibromyalgia Unspecified myalgia and myositis Primary hypertension Unspecified essential hypertension COPD mixed type (HCC) WINSOME (obstructive sleep apnea)- Primary Obstructive sleep apnea (adult) (pediatric) COPD mixed type (HCC) Primary hypertension Unspecified essential hypertension Fibromyalgia Unspecified myalgia and myositis BMI 40.0-44.9, adult ([facility] Tobacco dependence Tobacco use disorder Mixed hyperlipidemia Mixed hyperlipidemia Vitamin D deficiency Vitamin B12 deficiency Other B-complex deficiencies COPD with acute exacerbation (HCC) COPD with acute exacerbation (HCC)- Primary Morbid (severe) obesity due to excess calories ([facility]) Body mass index (BMI) 40.0-44.9, adult ([facility]) WINSOME (obstructive sleep apnea) Obstructive sleep apnea (adult) (pediatric) COPD mixed type (HCC) Gastroesophageal reflux disease, unspecified whether esophagitis present Tobacco dependence Tobacco use disorder Gastro-esophageal reflux disease without esophagitis Tremor Abnormal involuntary movements Encounter for subsequent annual wellness visit (AWV) in Medicare patient- Primary Chronic kidney disease, stage 3a ([facility]) WINSOME (obstructive sleep apnea) Obstructive sleep apnea [...] data available for this section [facility] [place] Progress note No data available for this section [facility] [place] Reason for visit Narrative* Consultation (Routine) - Closed Specialty Diagnoses / Procedures Referred By Jose williamson Referred To Contact Neurology Diagnoses Tremor Procedures [place] OFFICE/OUTPATIENT NEW HIGH MDM 60 MINUTES Jaymie Phoenix NP [address] [place] [address] Phone: tel: fax: Saumya Back DO [address] [place] [address] Phone: tel: fax: Referral ID Status Reason Start Date Expiration Date V isits Requested Visits Authorized [id number] Closed Specialty Services Required 02/10/2024 08/08/2024 1 [...] Jaymie Phoenix NP [address] [place] [address] Referral ID Status Reason Start Date Expiration Date V isits Requested Visits Authorized [id number] Authorized 03/25/2023 09/21/2023 1 1 Additional Source Comments INFORMATION SOURCE (unrecogn ized section and content) DATE CREATED AUTHOR 12/26/2021 [facility] Special[facility] DATE CREATED AUTHOR AUTHOR'S ORGANIZ ATION [facility]/25/2022 [facility] DATE CREATED AUTHOR AUTHOR'S ORGANIZ ATION 07/17/2022 [facility] DATE CREATED AUTHOR AUTHOR'S ORGANIZ ATION 08/31/2024 [facility] DATE CREATED AUTHOR AUTHOR'S ORGANIZ ATION 09/02/2024 [facility] EPIC Patient Care team informatio n (unrecognized section and content) 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 Relationship Specialty Start Date End Date Jaymie Phoenix NP [address] [place] [phone] Nurse Practitioner Family Medicine 01/26/23 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 Relationship Specialty Start Date End Date Shaikh Marquez MD [address] [place] [address] PCP - General Internal Medicine 03/25/23 Jaymie Phoenix NP [address] [place] [phone] Nurse Practitioner Family Medicine 01/26/23 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 Relationship Specialty Start Date End Date Shaikh Marquez MD [address] [place] [address] PCP - General Internal Medicine 03/25/23 Jaymie Phoenix NP [address] [place] [address] Nurse Practitioner Family Medicine 01/26/23 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 Relationship Specialty Start Date End Date Rohan Rodríguez MD [address] [place] [address] PCP - General Family Medicine 05/13/23 Jyamie Phoenix NP [address] [place] [address] Nurse Practitioner Family Medicine 01/26/23 Jaymie Phoenix NP [address] [place] [address] Nurse Practitioner Family Medicine 05/13/23 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 Relationship Specialty Start Date End Date Rohan Rodríguez MD [address] [place] [address] PCP - General Family Medicine 05/13/23 Jaymie Phoenix NP [address] [place] [address] Nurse Practitioner Family Medicine 01/26/23 Jaymie Phoenix NP [address] [place] [address] Nurse Practitioner Family Medicine 05/13/23 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 Relationship Specialty Start Date End Date Rohan Rodríguez MD [address] [place] [phone] PCP - General Family Medicine 05/13/23 Jaymie Phoenix NP [address] [place] [phone] Nurse Practitioner Family Medicine 01/26/23 Jaymie Phoenix NP [address] [place] [address] Nurse Practitioner Family Medicine 05/13/23 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 Relationship Specialty Start Date End Date Rohan Rodríguez MD [address] [place] [phone] PCP - General Family Medicine 05/13/23 Jaymie Phoenix NP [address] [place] [phone] Nurse Practitioner Family Medicine 01/26/23 Jaymie Phoenix NP [address] [place] [phone] Nurse Practitioner Family Medicine 05/13/23 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 Relationship Specialty Start Date End Date Rohan Rodríguez MD [address] [place] [phone] PCP - General Family Medicine 05/13/23 Jaymie Phoenix NP [address] [place] [address] Nurse Practitioner Family Medicine 01/26/23 Jaymie Phoenix NP [address] [place] [address] Nurse Practitioner Family Medicine 05/13/23 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 Relationship Specialty Start Date End Date Rohan Rodríguez MD [address] [place] [address] PCP - General Family Medicine 05/13/23 Jaymie Phoenix NP [address] [place] [phone] Nurse Practitioner Family Medicine 01/26/23 Jaymie Phoenix NP [address] [place] [phone] Nurse Practitioner Family Medicine 05/13/23 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 Relationship Specialty Start Date End Date Rohan Rodríguez MD [address] [place] [phone] PCP - General Family Medicine 05/13/23 Jaymie Phoenix NP [address] [place] [phone] Nurse Practitioner Family Medicine 01/26/23 Jaymie Phoenix NP [address] [place] [address] Nurse Practitioner Family Medicine 05/13/23 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 Relationship Specialty Start Date End Date Rohan Rodríguez MD [address] [place] [phone] PCP - General Family Medicine 05/13/23 Jaymie Phoenix NP [address] [place] [phone] Nurse Practitioner Family Medicine 01/26/23 Jaymie Phoenix NP [address] [place] [address] Nurse Practitioner Family Medicine 05/13/23 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 Relationship Specialty Start Date End Date Rohan Rodríguez MD [address] [place] [phone] PCP - General Family Medicine 05/13/23 Jaymie Phoenix NP [address] [place] [address] Nurse Practitioner Family Medicine 01/26/23 Jaymie Phoenix NP [address] [place] [phone] Nurse Practitioner Family Medicine 05/13/23 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 Relationship Specialty Start Date End Date Rohan Rodríguez MD [address] [place] [phone] PCP - General Family Medicine 05/13/23 Jaymie Phoenix NP [address] [place] [id number] Nurse Practitioner Family Medicine 01/26/23 Jaymie Phoenix NP [address] [place] [address] Nurse Practitioner Family Medicine 05/13/23 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 Relationship Specialty Start Date End Date Rohan Rodríguez MD [address] [place] [address] PCP - General Family Medicine 05/13/23 Jaymie Phoenix NP [address] [place] [address] Nurse Practitioner Family Medicine 01/26/23 Jaymie Phoenix NP [address] [place] [address] Nurse Practitioner Family Medicine 05/13/23 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 Relationship Specialty Start Date End Date Rohan Rodríguez MD [address] [place] [address] PCP - General Family Medicine 05/13/23 Jaymie Phoenix NP [address] [place] [address] Nurse Practitioner Family Medicine 01/26/23 Jaymie Phoenix NP [address] [place] [address] Nurse Practitioner Family Medicine 05/13/23 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 Relationship Specialty Start Date End Date Rohan Rodríguez MD [address] [place] [address] PCP - General Family Medicine 05/13/23 Jaymie Phoenix NP [address] [place] [address] Nurse Practitioner Family Medicine 01/26/23 Jaymie Phoenix NP [address] [place] [address] Nurse Practitioner Family Medicine 05/13/23 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 Relationship Specialty Start Date End Date Rohan Rodríguez MD [address] [place] [address] PCP - General Family Medicine 05/13/23 Jaymie Phoenix NP [address] [place] [address] Nurse Practitioner Family Medicine 01/26/23 Jaymie Phoenix NP [address] [place] [address] Nurse Practitioner Family Medicine 05/13/23 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 Relationship Specialty Start Date End Date Rohan Rodríguez MD [address] [place] [address] PCP - General Family Medicine 05/13/23 Jaymie Phoenix NP [address] [place] [address] Nurse Practitioner Family Medicine 01/26/23 Jaymie Phoenix NP [address] [place] [address] Nurse Practitioner Family Medicine 05/13/23 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 Relationship Specialty Start Date End Date Rohan Rodríguez MD [address] [place] [address] PCP - General Family Medicine 05/13/23 Jaymie Phoenix NP [address] [place] [address] Nurse Practitioner Family Medicine 01/26/23 Jaymie Phoenix NP [address] [place] [address] Nurse Practitioner Family Medicine 05/13/23 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 Relationship Specialty Start Date End Date Rohan Rodríguez MD [address] [place] [address] PCP - General Family Medicine 05/13/23 Jaymie Phoenix NP [address] [place] [address] Nurse Practitioner Family Medicine 01/26/23 Jaymie Phoenix NP [address] [place] [address] Nurse Practitioner Family Medicine 05/13/23 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 Relationship Specialty Start Date End Date Rohan Rodríguez MD [address] [place] [address] PCP - General Family Medicine 05/13/23 Jaymie Phoenix NP [address] [place] [address] Nurse Practitioner Family Medicine 01/26/23 Jaymie Phoenix NP [address] [place] [address] Nurse Practitioner Family Medicine 05/13/23 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 Relationship Specialty Start Date End Date Rohan Rodríguez MD [address] [place] [address] PCP - General Family Medicine 05/13/23 Jaymie Phoenix NP [address] [place] [address] Nurse Practitioner Family Medicine 01/26/23 Jaymie Phoenix NP [address] [place] [address] Nurse Practitioner Family Medicine 05/13/23 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 Relationship Specialty Start Date End Date Rohan Rodríguez MD [address] [place] [address] PCP - General Family Medicine 05/13/23 Jaymie Phoenix NP [address] [place] [address] Nurse Practitioner Family Medicine 01/26/23 Jaymie Phoenix NP [address] [place] [address] Nurse Practitioner Family Medicine 05/13/23 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 Relationship Specialty Start Date End Date Rohan Rodríguez MD [address] [place] [address] PCP - General Family Medicine 05/13/23 Jaymie Phoenix NP [address] [place] [address] Nurse Practitioner Family Medicine 01/26/23 Jaymie Phoenix NP [address] [place] [address] Nurse Practitioner Family Medicine 05/13/23 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 Relationship Specialty Start Date End Date Rohan Rodríguez MD [address] [place] [address] PCP - General Family Medicine 05/13/23 Jaymie Phoenix NP [address] [place] [address] Nurse Practitioner Family Medicine 01/26/23 Jaymie Phoenix NP [address] [place] [address] Nurse Practitioner Family Medicine 05/13/23 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 Relationship Specialty Start Date End Date Rohan Rodríguez MD [address] [place] [address] PCP - General Family Medicine 05/13/23 Jaymie Phoenix NP [address] [place] [address] Nurse Practitioner Family Medicine 01/26/23 Jaymie Phoenix NP [address] [place] [address] Nurse Practitioner Family Medicine 05/13/23 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 Relationship Specialty Start Date End Date Rohan Rodríguez MD [address] [place] [address] PCP - General Family Medicine 05/13/23 Jaymie Phoenix NP [address] [place] [address] Nurse Practitioner Family Medicine 01/26/23 Jaymie Phoenix NP [address] [place] [address] Nurse Practitioner Family Medicine 05/13/23 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 Relationship Specialty Start Date End Date Rohan Rodríguez MD [address] [place] [address] PCP - General Family Medicine 05/13/23 Jaymie Phoenix NP [address] [place] [address] Nurse Practitioner Family Medicine 01/26/23 Jaymie Phoenix NP [address] [place] [address] Nurse Practitioner Family Medicine 05/13/23 Reason for [...] BE BASED ON THE PRIMARY CLINICAL RECORDS. [facility]. provides no warranty or guarantee of the accuracy or completeness of information in this document.
== END 2024-10-24 09:00 | disposition home or self-care (01) ==
LOC: MRI 09:00
PROVIDERS: PCP Nurse Practitioner; Visit Provider Nurse Practitioner
DX: M48.062 Spinal stenosis, lumbar region with neurogenic claudication (principal)
CPT/HCPCS: 72148

== ENCOUNTER 2024-11-01 09:23 | Outpatient (OUT) | payer MEDICARE, SELFPAY ==
--- OUTSIDE RECORDS SUMMARY | 2024-11-01 09:30 | XMS_ITS | CCD ---
Author Organization [facility] Care Team Providers Care Triage Clinician Name Role Phone JAYMIE PHOENIX Primary Care Physician [phone] Bryson FERRER Attending Unavailable JAYMIE PHOENIX Referring Unavailabl e NABIL, Bryson Hernandez Attending Unavailable Aichholz, Tracy L Referring Unavailable NILL, Bryson Hernandez Attending Unavailable NILL, Bryson Hernandez Attending Unavailable NILL, Bryson Hernandez Attending Unavailable AICHHOLZ, JEWELRY MOLD MAKER JAYMIE Primary Care Unavailable ALLAN ., DR JIM Mcdonnell Attending Unavailable ALLAN ., DR JIM Mcdonnell Admitting Unavailable ALLAN ., DR JIM Mcdonnell Consulting Unavailable ROBINSON ., GLENROY Admitting Unavailable ROBINSON .GLENROY Attending Unavailable SJ SOLER Consulting Unavailable AICHHOLZ, JEWELRY MOLD MAKER JAYMIE Primary Care Unavailable MENDEZ ., MR DEMETRIUS Admitting Unavailable MENDEZ ., MR DEMETRIUS Attending Unavailable AICHHOLZ, JEWELRY MOLD MAKER JAYMIE Primary Care Unavailable AICHHOLZ, JEWELRY MOLD MAKER JAYMIE Admitting Unavailable JUANITA, DR NADINE Caldwell Consulting Unavailable AICHHOLZ, JEWELRY MOLD MAKER JAYMIE Primary Care Unavailable AICHHOLZ, JEWELRY MOLD MAKER JAYMIE Attending Unavailable AICHHOLZ, JEWELRY MOLD MAKER JAYMIE Consulting Unavailable AICHHOLZ, JEWELRY MOLD MAKER JAYMIE Admitting Unavailable JUANITA, DR NADINE Caldwell Consulting Unavailable AICHHOLZ, JEWELRY MOLD MAKER JAYMIE Primary Care Unavailable AICHHOLZ, JEWELRY MOLD MAKER JAYMIE Attending Unavailable AICHHOLZ, JEWELRY MOLD MAKER JAYMIE Consulting Unavailable AICHHOLZ, JEWELRY MOLD MAKER JAYMIE Primary Care Unavailable NILL ., DR MASSEY Admitting Unavailable NILL ., DR MASSEY Attending Unavailable NILL ., DR MASSEY Consulting Unavailable SONDRA FELICIANO Consulting Unavailable ROBINSON ., GLENROY Admitting Unavailable ROBINSON ., GLENROY Attending Unavailable ROBINSON .GLENROY Consulting Unavailable AICHHOLZ, JEWELRY MOLD MAKER JAYMIE Primary Care Unavailable ALLAN ., DR JIM Mcdonnell Attending Unavailable ALLAN ., DR JIM Mcdonnell Consulting Unavailable ALLAN ., DR JIM Mcdonnell Admitting Unavailable AICHHOLZ, JEWELRY MOLD MAKER JAYMIE Primary Care Unavailable MARIA FERNANDA SOSA Consulting Unavailable ALLAN ., DR JIM Mcdonnell Attending Unavailable ALLAN ., DR JIM Mcdonnell Consulting Unavailable ALLAN ., DR JIM Mcdonnell Admitting Unavailable AICHHOLZ, JEWELRY MOLD MAKER JAYMIE Primary Care Unavailable ALLAN ., DR JIM Mcdonnell Admitting Unavailable ALLAN ., DR JIM Mcdonnell Attending Unavailable ALLAN ., DR JIM Mcdonnell Consulting Unavailable AICHHOLZ, JEWELRY MOLD MAKER JAYMIE Primary Care Unavailable ALLAN ., DR JIM Mcdonnell Admitting Unavailable ALLAN ., DR JIM Mcdonnell Attending Unavailable AICHHOLZ, JEWELRY MOLD MAKER JAYMIE Primary Care Unavailable THORNE ., JENNY Consulting Unavailable ALLAN ., DR JIM Mcdonnell Admitting Unavailable ALLAN ., DR JIM Mcdonnell Attending Unavailable ALLAN ., DR JIM Mcdonnell Consulting Unavailable AICHHOLZ, JEWELRY MOLD MAKER JAYMIE Primary Care Unavailable ALLAN ., DR JIM Mcdonnell Admitting Unavailable ALLAN ., DR JIM Mcdonnell Attending Unavailable ALLAN ., DR JIM Mcdonnell Consulting Unavailable AICHHOLZ, JEWELRY MOLD MAKER JAYMIE Primary Care Unavailable THORNE ., JENNY Consulting Unavailable ALLAN ., DR JIM Mcdonnell Admitting Unavailable ALLAN ., DR JIM Mcdnonell Attending Unavailable AICHHOLZ, JEWELRY MOLD MAKER JAYMIE Primary Care Unavailable ALLAN ., DR JIM Mcdonnell Attending Unavailable ALLAN ., DR JIM Mcdonnell Consulting Unavailable ALLAN ., DR JIM Mcdonnell Admitting Unavailable AICHHOLZ, JEWELRY MOLD MAKER JAYMIE Primary Care Unavailable LAKSHMIPATHY ., NARENDRANATH Consulting Evelyn vailable NILL ., DR MASSEY Consulting Unavailable NILL ., DR MASSEY Admitting Unavailable AICHHOLZ, JEWELRY MOLD MAKER JAYMIE Primary Care Unavailable NILL ., DR MASSEY Attending Unavailable AICHHOLZ, JEWELRY MOLD MAKER JAYMIE Admitting Unavailable AICHHOLZ, JEWELRY MOLD MAKER JAYMIE Attending Unavailable AICHHOLZ, JEWELRY MOLD MAKER JAYMIE Consulting Unavailable AICHHOLZ, JEWELRY MOLD MAKER JAYMIE Primary Care Unavailable CHET, DR MELISSA Hernandez Consulting Unavailable AICHHOLZ, JEWELRY MOLD MAKER JAYMIE Admitting Unavailable AICHHOLZ, JEWELRY MOLD MAKER JAYMIE Attending Unavailable AICHHOLZ, JEWELRY MOLD MAKER JAYMIE Consulting Unavailable AICHHOLZ, JEWELRY MOLD MAKER JAYMIE Primary Care Unavailable LORI FROST Consulting Unavailable ALLAN ., DR JIM Mcdonnell Attending Unavailable ALLAN ., DR JIM Mcdonnell Admitting Unavailable AICHHOLZ, JEWELRY MOLD MAKER JAYMIE Primary Care Unavailable AICHHOLZ, JEWELRY MOLD MAKER JAYMIE Primary Care Unavailable SAMSA ., MAGDALENA Admitting Unavailable SAMSA ., MAGDALENA Attending Unavailable SAMSA ., MAGDALENA Consulting Unavailable ALLAN ., DR JIM Mcdonnell Attending Unavailable ALLAN ., DR JIM Mcdonnell Admitting Unavailable ALLAN ., DR JIM Mcdonnell Consulting Unavailable AICHHOLZ, JEWELRY MOLD MAKER JAYMIE Primary Care Unavailable AICHHOLZ, JEWELRY MOLD MAKER JAYMIE Admitting Unavailable AICHHOLZ, JEWELRY MOLD MAKER JAYMIE Attending Unavailable AICHHOLZ, JEWELRY MOLD MAKER JAYMIE Consulting Unavailable AICHHOLZ, JEWELRY MOLD MAKER JAYMIE Primary Care Unavailable Aichholz PROTECTION ANALYST, Jaymie Unavailable Alma AMADOR, Primary Care Provider Aichholhomer PROTECTION ANALYST, Jaymie Unavailable Anne AMADOR, Rohan Primary Care Provider Aichholhomer PROTECTION ANALYST, Jaymie Unavailable Alphonse Damian Attending Unavailab Alphonse Todd Admitting Unavailab le Jaymie Phoenix Primary Care Unavailable SAUMYA BACK Attending Unavailable AICHHOLHomer, JAYMIE Referring Unavailable AICHHOLZ, JAYMIE Attending Unavailable NAT HENDERSON Attending Unavailable AICHHOLZ, JAYMIE Attending Unavailable AICHHOLZ, JAYMIE Attending Unavailable Aichholz PROTECTION ANALYST-C, Jaymei Danielle Primary Care Provider Alphonse Damian MD Attending Provider Alban PROTECTION ANALYST-CJaymie Attending Provider [phone] Allergies Allergy Classification Reported Allergen(s) Allergy Type Date of Onset Reaction(s) Facility (20 sources) Penicillins; Translations: [penicillins] Drug allergy 4 Dyspnea (finding), Weal (disorder), Hives, Shortness of breath, Swelling [facility] (3 sources) predniSONE; Translations: [prednisone] Drug Allergy 5 Dyspnea (finding) [facility] (1 source) prednisoLONE Drug Allergy [facility] Repository (20 sources) Prednisone Propensity to adverse reactions 3 Itching [facility] (1 source) Penicillin Drug Allergy 5 Hives [facility] Comment on above: shortness of breath Medications Current Medications Medication Drug Class(es) Dates Sig (Normalized) Sig (Original) acetaminophen 325 mg / HYDROcodone bitartrate 5 mg oral tablet (3 sources) Opioid Agonist Start: 08-29-2024 End: 09-08-2024 take 1 tablet by mouth once HYDROcodone-acetam inophen ([place]) 5-325 MG tablet Indications: Acute back pain with sciatica, unspecified laterality Take 1 tablet by mouth every 12 (twelve) hours if needed for severe pain for up to 10 days 20 tablet 08/29/2024 09/08/2024 Active albuterol 0.83 mg/ml inhalation solution (20 sources) beta2-Adrenergic Agonist Start: 10-28-2024 take 2.5 mg by inhalation every four to six hours as needed Albuterol Sulfate 2.5 mg /3 mL (0.083 %) solution for nebulization Active 2.5 MG INHALATION EVERY 4-6 HOURS as needed October 28, 2024 12:00am Complies with drug therapy Start: 10-28-2024 take 1 puff(s) by in halation every six hours as needed Albuterol Sulfate 90 mcg/actuation HFA aerosol inhaler Active 2 PUFF INHALATION Every 6 hours as needed October 28, 2024 12:00am Complies with drug therapy Start: 04-19-2024 End: 05-19-2024 take 2 puff(s) [...] solution (20 sources) Anticholinergic, beta2-Adrenergic Agonist Start: 10-28-2024 take 1 mL by inhalation every four to six hours as needed Ipratropium-Albuterol 0.5 mg-3 mg(2.5 mg base)/3 mL solution for nebulization Active 3 ML INHALATION EVERY 4-6 HOURS as needed October 28, 2024 12:00am Complies with drug therapy Start: 12-28-2023 ipratropium-al buterol (Duo-Neb) 0.5-2.5 mg/3 mL nebulizer solution Take 3 mL by nebulization every 6 (six) hours if needed for wheezing or shortness of breath 12/28/2023 Active amitriptyline hydrochloride 100 mg oral tablet (20 sources) Tricyclic Antidepressant Start: 10-28-2024 Amitriptyline 100 mg tablet Active 50 MG PO Daily at bedtime October 28, 2024 12:00am Complies with drug therapy Start: 01-26-2024 End: 10-29-2024 take 0.5 tablet [...] tablet by mouth once daily at bedtime Atorvastatin 20 mg tablet Active 20 MG PO Daily at bedtime October 28, 2024 12:00am Complies with drug therapy Start: 05-18-2023 End: 02-02-2024 take 1 tablet [...] inhaler (20 sources) Corticosteroid, beta2-Adrenergic Agonist Start: 10-28-2024 Eodcnlqypw-Kflmyagl-Qplnmqpw ol (Breztri Aerosphere) 160-9-4.8 mcg/actuation HFA aerosol inhaler Active 2 INH INHALATION Twice daily October 28, 2024 12:00am Complies with drug therapy Start: 07-31-2024 End: 10-29-2024 take 2 puff(s) by inhalation in the morning, then take 2 puff(s) by inhalation at bedtime, then take 2 puff(s) by inhalation in the morning, then take 2 puff(s) by inhalation at bedtime Roprjgt-Sjzjqnmafek-Ycpwjmbyqc (Breztri Aerosphere) 160-9-4.8 MCG/ACT aerosol Indications: COPD [...] oral tablet (20 sources) Loop Diuretic Start: 10-28-2024 take 1 tablet by mouth once daily Bumetanide 0.5 mg tablet Active 0.5 MG PO Daily October 28, 2024 12:00am only MWF Complies with drug therapy Start: 06-07-2023 End: 07-31-2024 bumetanide (Bumex) 0.5 MG ta blet Indications: Bilateral lower extremity edema Take M W F only 27 tablet 1 07/31/2024 Active Start: 03-25-2023 End: 04-08-2023 take 1 tablet by mouth in the morning bumetanide (Bumex) 0.5 MG tablet Indications: Bilateral lower extremity edema Take 1 tablet (0.5 mg) by mouth in the morning for 14 days. 14 tablet 0 03/25/2023 04/08/2023 Active cetirizine hydrochloride 10 mg oral tablet (18 sources) Histamine-1 Receptor Antagonist Start: 04-19-2024 End: 10-29-2024 take 1 tablet by mouth once daily Cetirizine 10 mg tablet Active 10 MG PO Daily October 28, 2024 12:00am Complies with drug therapy cholecalciferol 0.125 mg oral tablet (20 sources) Vitamin D Start: 10-28-2024 take 1 tablet by mouth once daily Cholecalciferol (Vitamin D3) 125 mcg (5,000 unit) tablet Active 125 MCG PO Daily October 28, 2024 12:00am Complies with drug therapy cholecalciferol (Vitamin D-3) 125 MCG (5000 UT) tablet as directed Orally Active cyclobenzaprine hydrochloride 5 mg oral tablet (3 sources) Muscle Relaxant Start: 10-28-2024 take 1 tablet by mouth every eight hours as needed for muscle spasms Cyclobenzaprine 5 mg tablet Active 5 MG PO Every 8 hours as needed for muscle spasm October 28, 2024 12:00am Complies with drug therapy take 5 mg by mouth t hree times daily as needed for muscle spasms [...] (eight) hours if needed 01/08/2023 Active lamoTRIgine 100 mg oral tablet (20 sources) Mood Stabilizer, Anti-epileptic Agent Start: 10-28-2024 take 1 tablet by mouth once daily Lamotrigine 100 mg tablet Active 100 MG PO Daily October 28, 2024 12:00am Complies with drug therapy Start: 10-28-2024 take 1 tablet by aaron th once daily Lamotrigine 200 mg tablet Active 200 MG PO Daily October 28, 2024 12:00am Complies with drug therapy Start: 05-04-2023 End: 01-03-2024 take 1 tablet [...] take 1 tablet by mouth once daily Meloxicam 15 mg tablet Active 15 MG PO Daily October 28, 2024 12:00am Complies with drug therapy Start: 03-15-2023 End: 04-14-2023 take 1 tablet [...] tablet by mouth once daily at bedtime Montelukast 10 mg tablet Active 10 MG PO Daily at bedtime October 28, 2024 12:00am Complies with drug therapy omeprazole 40 mg delayed release oral capsule (20 sources) Proton Pump Inhibitor Start: 05-05-2023 End: 10-29-2024 take 1 capsule by mouth once daily Omeprazole 40 mg capsule,delayed release(DR/EC) Active 40 MG PO Daily October 28, 2024 12:00am Complies with drug therapy Start: 01-22-2022 take 1 capsule by mo uth once daily omeprazole 40 mg Cap-DR 40 mg = 1 cap(s), Oral, Daily, Refills(s) 0 Start Date: 01/22/22 Status: Ordered prazosin 1 mg oral capsule (20 sources) alpha-Adrenergic Lenora Start: 10-28-2024 take 1 capsule by mouth once daily at bedtime Prazosin 1 mg capsule Active 2 MG PO Daily at bedtime October 28, 2024 12:00am Complies with drug therapy Start: 10-28-2024 take 1 capsule by mo ut once daily at bedtime Prazosin 2 mg capsule Active 2 MG PO Daily at bedtime October 28, 2024 12:00am Complies with drug therapy Start: 11-16-2023 take 1 capsule by mo uth at bedtime prazosin (Minipress) 1 MG capsule Take 1 mg by mouth at bedtime 11/16/2023 Active Start: 01-22-2022 take 1 capsule by mo ut at bedtime prazosin 2 mg oral capsule 2 mg = 1 cap(s), Oral, Bedtime, Refills(s) 0 Start Date: 01/22/22 Status: Ordered pregabalin 100 mg oral capsule (20 sources) Start: 10-28-2024 take 1 capsule by mouth three times daily Pregabalin 100 mg capsule Active 100 MG PO Three times daily October 28, 2024 12:00am Complies with drug therapy Start: 12-31-2023 End: 08-30-2024 take 1 capsule [...] End: 10-29-2024 take 1 tablet by mouth twice daily Propranolol 40 mg tablet Active 40 MG PO Twice daily October 28, 2024 12:00am Complies with drug therapy Start: 12-25-2023 End: 01-24-2024 take 1 tablet [...] oral tablet (20 sources) Atypical Antipsychotic Start: 10-28-2024 take 1 tablet by mouth once daily at bedtime Quetiapine 300 mg tablet Active 300 MG PO Daily at bedtime October 28, 2024 12:00am Complies with drug therapy Start: 05-11-2024 take 1 tablet by aaron th at bedtime QUEtiapine (SEROquel) 300 MG tablet [...] take 1 tablet by mouth once daily Spironolactone 50 mg tablet Active 50 MG PO Daily October 28, 2024 12:00am Complies with drug therapy Start: 09-24-2023 take 1 tablet by aaron [...] (20 sources) Central alpha-2 Adrenergic Agonist Start: 10-28-2024 take 1 tablet by mouth every twelve hours as needed Tizanidine 4 mg tablet Active 4 MG PO Every 12 hours as needed for muscle spasticity October 28, 2024 12:00am Complies with drug therapy Start: 01-03-2024 End: 10-29-2024 take 1 tablet [...] (20 sources) Partial Cholinergic Nicotinic Agonist Start: 10-28-2024 take 1 tablet by mouth twice daily Varenicline Tartrate 1 mg tablet Active 1 MG PO Twice daily October 28, 2024 12:00am Complies with drug therapy Start: 07-31-2024 End: 09-05-2024 take 1 tablet [...] Onset: 4 01-22-2022 Chronic Chronic kidney disease (16 sources) Chronic kidney disease stage 3A ; [...] [OTHER MEGALOBLASTIC ANEMIAS NEC] Onset: 3 Episodic Deficiency and other anemia (1 source) Megaloblastic anemia; Translations: [Other megaloblastic anemias, not elsewhere classified] 10-28-2024 Episodic Diabetes mellitus without complication (4 sources) [...] of left knee] Onset: 4 02-18-2023 Chronic Mood disorders (1 source) Moderate recurrent major depression; Translations: [Major depressive disorder, recurrent, moderate] 10-28-2024 Chronic Nutritional deficiencies (20 sources) Vitamin D deficiency; Translations: [Vitamin D deficiency, unspecified] Onset: 3 01-22-2022 Chronic Nutritional deficiencies (20 sources) Cobalamin deficiency; Translations: [Deficiency of other specified B group vitamins] Onset: 4 01-22-2022 Episodic Osteoarthritis (20 sources) Osteoarthritis of knee; Translations: [Osteoarthritis of knee, unspecified] Onset: 4 02-18-2023 Chronic Other and unspecified benign neoplasm (2 sources) Polyp of colon; Translations: [Hyperplastic polyp of sigmoid colon] Onset: 3 10-28-2024 Episodic Other bone disease and musculoskeletal deformities [...] [Other fecal abnormalities] Onset: 2 Episodic Other liver diseases (20 sources) Aspartate aminotransferase serum level raised; Translations: [Elevated SGOT (AST)] Onset: 2 02-18-2023 Episodic Other lower respiratory disease (1 source) Shortness of breath; Translations: [SHORTNESS OF BREATH] Onset: 3 Episodic Other nervous system disorders (1 source) Other chronic pain; Translations: [OTHER CHRONIC PAIN] Onset: 3 Chronic Other nervous system disorders (2 sources) Parkinsonism due to drug; Translations: [Other drug induced secondary parkinsonism] 03-14-2024 Chronic Other nervous system disorders (20 sources) Tremor; Translations: [Tremor, unspecified] Onset: 5 02-10-2024 Episodic Other nervous system disorders (2 sources) H/O: [...] excess calories] Onset: 4 02-10-2024 Chronic Other nutritional; endocrine; and metabolic disorders (2 sources) Morbid obesity; Translations: [Morbid (severe) obesity due to excess calories] 10-28-2024 Chronic Other screening for suspected conditions (not mental disorders or infectious disease) (20 sources) Stool DNA-based colorectal cancer screening positive; Translations: [Other fecal abnormalities] Onset: 2 02-03-2022 Episodic Other upper respiratory disease (19 sources) Allergic disposition; Translations: [Other allergic rhinitis] Onset: 5 04-19-2024 Chronic Residual codes; unclassified (1 source) Sleep apnea, unspecified; Translations: [SLEEP APNEA UNSPECIFIED] Onset: 2 Chronic Residual codes; unclassified (20 sources) Obstructive sleep apnea syndrome; Translations: [Obstructive sleep apnea (adult) (pediatric)] Onset: 4 05-13-2023 Chronic Residual codes; unclassified (20 sources) Bilateral lower limb edema; Translations: [Localized edema] Onset: 3 03-16-2023 Episodic Residual codes; unclassified (2 sources) Localized edema; [...] [Other megaloblastic anemias, not elsewhere classified] Onset: 02-18-2023 01-22-2022 Episodic E Codes: Adverse effects of medical drugs (1 source) Adverse effect of glucocorticoids and synthetic analogues, initial encounter; Translations: [ADVRS EFF GLUCOCORT SYN ANALOG INIT] Onset: 12-04-2021 Episodic Headache; including migraine (20 sources) Migraine; Translations: [Migraine without aura] Onset: 01-04-2023 Resolved: 05-13-2023 01-22-2022 Chronic Mood disorders (20 sources) Mood disorders Onset: 06-03-2023 Resolved: 07-31-2024 06-03-2023 Open wounds of extremities (20 sources) Open wound of left foot; Translations: [Unspecified open wound, left foot, initial encounter] Onset: 01-26-2023 Resolved: 05-13-2023 01-26-2023 Episodic Other aftercare (1 source) Other intermediate (current) drug therapy; Translations: [OTH DIRECTOR OF SUSTAINABLE DESIGN CURRENT DRUG THERAPY] Onset: 02-27-2022 Episodic Other and unspecified benign neoplasm (20 sources) Hyperplastic polyp of intestine; Translations: [Polyp of colon] Onset: 02-18-2023 02-18-2023 Episodic Other connective tissue disease (1 source) Fibromyalgia; Translations: [FIBROMYALGIA] Onset: 02-27-2022 Episodic Other ear and sense organ disorders (20 sources) Hearing loss; Translations: [Unspecified hearing loss, unspecified ear] Onset: 02-18-2023 Resolved: 01-26-2024 01-22-2022 Chronic Other gastrointestinal disorders (4 sources) Other fecal abnormalities; Translations: [OTHER FECAL ABNORMALITIES] Onset: 02-25-2022 Episodic Other inflammatory condition of skin (4 sources) Pruritus, unspecified; Translations: [PRURITUS UNSPECIFIED] Onset: 12-03-2021 Episodic Other lower respiratory disease (20 sources) Dyspnea; Translations: [Shortness of breath] Onset: 03-25-2023 Resolved: 07-31-2024 03-25-2023 Episodic Other non-traumatic joint disorders (20 sources) Pain in left knee; Translations: [Pain in joint, lower leg] Onset: 10-13-2021 Resolved: 03-16-2023 03-16-2023 Episodic Other nutritional; endocrine; and metabolic disorders (20 sources) Severe obesity; Translations: [Morbid (severe) obesity due to excess calories] Onset: 01-26-2023 Resolved: 05-13-2023 01-26-2023 Chronic Other skin disorders (20 sources) Decorative tattoo; Translations: [Other specified disorders of pigmentation] Onset: 03-10-2011 Resolved: 03-16-2023 03-16-2023 Episodic Other upper respiratory infections (20 sources) Acute sinusitis; Translations: [Other acute sinusitis] Onset: 01-26-2023 Resolved: 03-16-2023 03-16-2023 Episodic Pneumonia (except that caused by tuberculosis or sexually transmitted disease) (20 sources) Community acquired pneumonia; Translations: [Pneumonia, unspecified organism] Onset: 01-03-2024 Resolved: 01-03-2024 01-03-2024 Episodic Residual codes; unclassified (20 sources) Edema of lower extremity; Translations: [Localized edema] Onset: 02-18-2023 Resolved: 03-16-2023 01-22-2022 Episodic Residual codes; unclassified (20 sources) Tobacco user; Translations: [Tobacco use] Onset: 02-18-2023 Resolved: 03-16-2023 01-22-2022 Episodic Residual codes; unclassified (1 source) Acquired absence of both cervix and uterus; Translations: [ACQUIRED ABSENCE BOTH CERVIX AND UTERUS] Onset: 02-27-2022 Episodic Residual codes; unclassified (1 source) Tobacco use; Translations: [TOBACCO USE] Onset: 12-12-2021 Episodic Residual codes; unclassified (1 source) Insomnia, unspecified; Translations: [INSOMNIA UNSPECIFIED] Onset: 12-04-2021 Episodic Residual codes; unclassified (20 sources) Exposure to carbon monoxide; Translations: [Contact with and (suspected) exposure to other hazardous substances] Onset: 02-18-2023 Resolved: 03-16-2023 03-16-2023 Episodic Residual codes; unclassified (20 sources) Edema of right lower limb; Translations: [Localized edema] Onset: 03-25-2023 Resolved: 01-03-2024 03-25-2023 Episodic Screening and history of mental health and substance abuse codes (20 sources) Tobacco use and exposure - finding; Translations: [Personal history of nicotine dependence] Onset: 03-10-2011 Resolved: 03-16-2023 03-16-2023 Episodic Unclassified (1 source) LOW BACK PAIN, UNSPECIFIED; Translations: [LOW BACK PAIN, UNSPECIFIED] Onset: 04-30-2022 Unclassified (1 source) CONTACT W/AND (SUSP) EXPOS COVID-19; Translations: [CONTACT W/AND (SUSP) EXPOS COVID-19] Onset: 03-10-2022 Results Test Name Value Interpretation Reference Range Facility Glomerular filtration rate ( GFR) estimation in non- AmericanOrdered By: Jaymie Phoenix on 10-10-2024 GFR/1.73 sq M.predicted among non-blacks MDRD (S/P/Bld) [Vol rate/Area] 54 mL/min/{1.73_m2} Low >=60 mL/min/1.73m 2 [facility] - Chemistry and C hemistry - challengeOrdered By: Jaymie Alban on 10-10-2024 Calcium [Mass/Vol] 8.9 mg/dL 8.5-10.1 [facility] Chloride [Moles/Vol] 101 mmol/L 98-107 [facility] CO2 [Moles/Vol] 29.5 mmol/L 21.0-32.0 [facility] Creatinine [Mass/Vol] 1.03 mg/dL High 0.55-1.02 [facility] GFR/1.73 sq M.predicted MDRD (S/P/Bld) [Vol rate/Area] mL/min/{1.73_m2} >=60 mL/min/1.73m 2 [facility] Glucose [Mass/Vol] 111 mg/dL High 74-106 [facility] Potassium [Moles/Vol] 4.1 mmol/L 3.5-5.1 [facility] Sodium [Moles/Vol] 139 mmol/L 136-145 [facility] Urea nitrogen [Mass/Vol] 19.0 mg/dL High 7.0-18.0 [facility] Urea nitrogen/Creatinine [Mass ratio] 18.4 mg/mg [facility] Serum or plasma anion gap de terminationOrdered By: Jaymie Phoenix on 10-10-2024 Anion gap [Moles/Vol] 12.6 mmol/L [facility] XR LUMBAR SPINE 6V W BENDING on 09-19-2024 [place] [address] XRay Report Signed Patient: FRANKY GAGNON I MR#: [id number] : 1965 Acct:[id number] Age/Sex: 59 / F ADM Date: 09/19/24 Loc: RAD Attending Dr: Estelle Vazquez NP Ordering Physician: Estelle Vazquez NP Date of Service: 09/19/24 Procedure(s): XR lumbar spine 6V w bending Accession Number(s): [id number] cc: Jaymie Phoenix NP; Estelle Vazquez NP [place] [id number] Patient Name: FRANKY GAGNON MRN: [id number] date: 1965 Sex: F Assigned Patient Location: [facility] Current Patient Location: [facility] Accession/Order Number: [id number] Exam Date: 09/19/2024 14:32 Report Date: 09/19/2024 [...] LEVEL. Impression dictated by: Joaquin Chatman Jr., DMakayla 09/19/2024 2:33 PM Dictation Location: [place] [address] Electronically authenticated by: [id number] Y Date: 09/19/2024 14:33 Dictated By: Joaquin Chatman M.D. Signed By: 09/19/24 1436 DD/ 1433 TD/TT: Prefitter Doors: [facility] Radiology, Radiologist, - 09/19/2024 [facility] [place] [address] XRay Report Signed Patient: FRANKY GAGNON I MR#: [id number] : 1965 Acct:[id number] Age/Sex: 59 / F ADM Date: 09/19/24 Loc: [facility] Attending Dr: Estelle Vazquez NP Ordering Physician: Estelle Vazquez NP Date of Service: 09/19/24 Procedure(s): XR lumbar spine 6V w bending Accession Number(s): [id number] cc: Jaymie Phoenix NP; Estelle Vazquez NP [address] [place] [address] Patient Name: FRANKY GAGNON MRN: [facility]:[id number] date: 1965 Sex: F Assigned Patient Location: [facility] Current Patient Location: [facility] Accession/Order Number: [id number] Exam Date: 09/19/2024 14:32 Report Date: 09/19/2024 [...] 09/19/2024 2:33 PM Dictation Location: [place] [address] Electronically authenticated by: [id number] Y Date: 09/19/2024 14:33 Dictated By: Joaquin Chatman M.D. Signed By: 09/19/24 143 DD/ 32 TD/TT: Prefitter Doors: [facility] Radiology Study observation (narrative) [facility] XR LUMBAR SPINE 6V W BENDING Ordered By: Radiologist Radiology on 09-19-2024 [facility] Work Phone: [facility] MICROALB CREAT RATIO RAN DOMon 01-27-2024 CREATININE URINE RANDOM 235.95 mg/dL 20.0 0 - 300.00 mg/dL [facility] MICROALBUMIN URINE RANDOM <1.3 NINF - 30.0 mg/dL [facility] ALL BASIC METABOLIC PANELon 01-24-2024 Anion gap [Moles/Vol] 11.6 mmol/L [facility] Calcium [Mass/Vol] 8.9 mg/dL 8.5 - 10. 1 mg/dL [facility] Chloride [Moles/Vol] 103 mmol/L 98 - 10 7 mmol/L [facility] CO2 [Moles/Vol] 31.6 mmol/L 21.0 - 32.0 mmol/L [facility] Creatinine [Mass/Vol] 1.17 mg/dL High 0.55 - 1.02 mg/dL [facility] GFR/1.73 sq M.predicted CKD-EPI (S/P/Bld) [Vol rate/Area] 57 Low >=60 mL/min/1.73m 2 [facility] Glucose [Mass/Vol] 118 mg/dL High 74 - 106 mg/dL [facility] Potassium [Moles/Vol] 4.2 mmol/L 3.5 - 5.1 mmol/L [facility] Sodium [Moles/Vol] 142 mmol/L 136 - 145 mmol/L [facility] EGFR-NON AF TONGAN 47 Low >=6 0 mL/min/1.73m 2 [facility] Urea nitrogen [Mass/Vol] 12 mg/dL 7.0 - 18.0 mg/dL [facility] Urea nitrogen/Creatinine [Mass ratio] 10.3 mg/mg [facility] ALL LIPID PROFILE (FASTING)o n 01-24-2024 CHOL HDL RATIO 2.9 [facility] Comment on above: 3.3 - 4.4 LOW RISK 4.4 - 7.1 AVERAGE RISK 7.1 - 11.0 MODERATE RISK >11.0 HIGH RISK Cholesterol [Mass/Vol] 152 mg/dL NINF - 200 mg/dL [facility] Cholesterol in HDL [Mass/Vol] 52 mg/dL 40 - 60 mg/dL [facility] Comment on above: > or =60 mg/dl - LOW CARDIOVASCULAR RISK <40 mg/dl - HIGH CARDIOVASCULAR RISK Magnesium [Mass/Vol] 70 mg/dL [facility] Comment on above: <100 mg/dl OPTIMAL 100-129 mg/dl NEAR OR ABOVE OPTIMAL 130-159 mg/dl BORDERLINE HIGH 160-189 mg/dl HIGH >190 mg/dl VERY HIGH Magnesium [Mass/Vol] 30.8 mg/dL [facility] Triglyceride [Mass/Vol] 154 mg/dL High NINF - 150 mg/dL [facility] No Panel Informationon 01-23 Interpretation and review of laboratory results Abnormal [facility] BLOOD GASES BTYon 07-08-2022 02 MODE ROOM AIR Normal [facility] Comment on above: Performed By: #### A BG ####[facility] [address] [place], [place] [address]Li. Phani MUKHERJEE TEST Positive Normal [facility] Comment on above: Performed By: #### A BG ####[facility] [address] [place] [address]Dr. Phani El Base excess Calc (Bld) [Moles/Vol] 1.4 mmol/L Normal -2.0-2.0 [facility] Comment on above: Performed By: #### A BG ####[facility] [address] [place] [address]Dr. Phani El BIPAP PRESSURE Normal [facility] Comment on above: Performed By: #### A BG ####[facility] [address] [place] [address]Dr. Phani El CPAP Normal [facility] Comment on above: Performed By: #### A BG ####[facility] [address] [place], [place] [address]Dr. Phani El FIO2 Normal [facility] Comment on above: Performed By: #### A BG ####[facility] Q[address]zw[address] [place], [place] [address]Dr. Phani El HCO3 (Bld) [Moles/Vol] 26.2 mmol/L Critically high 22.0-26 .0 [facility] Comment on above: Performed By: #### A BG ####[facility] Ums[address] [place], [place] [address]Dr. Phani El LPM Normal [facility] Comment on above: Performed By: #### A BG ####[facility] Us[address] [place], [place] [address]Dr. Phani El MINUTE VOLUME Normal The [facility] Comment on above: Performed By: #### A BG ####[facility] [address]td[address] [place], [place] [address]Dr. Phani El Oxygen (Bld) [Partial pressure] 56.1 mm[Hg] Critically low 80.0-100.0 [facility] Comment on above: Performed By: #### A BG ####[facility] [address]wh[address] [place], [place] [address]Dr. Phani El Oxygen saturation in Blood 92.0 % Critically low 95.0-100.0 [facility] Comment on above: Performed By: #### A BG ####[facility] [address]ufof[address] [place] [address]Dr. Phani El PCO2 42.6 mmHg Normal 35.0-45.0 [facility] Comment on above: Performed By: #### A BG ####[facility] [address]yjlkpf[address] [place] [address]Dr. Phani El PEEP [facility] Comment on above: Performed By: #### A BG ####[facility] J[address]btc[address] [place] [address]Dr. Phani El pH (Bld) 7.398 [pH] Normal 7.350-7.450 [facility] Comment on above: Performed By: #### A BG ####[facility] Qgllaoutrl[address] [place] [address]Dr. Phani El PIP [facility] Comment on above: Performed By: #### A BG ####[facility] Clfgjsjz[address] [place], [place] [address]Dr. Phani El PS [facility] Comment on above: Performed By: #### A BG ####[facility] Ga[address] [place], [place] [address]Dr. Phani El PUNCTURE SITE RR [facility] Comment on above: Performed By: #### A BG ####[facility] [address] [place] [address]Dr. Phani El RATE [facility] Comment on above: Performed By: #### A BG ####[facility] Pwwwldukzz[address] [place], [place] [address]Dr. Phani El VENT MODE [facility] Comment on above: Performed By: #### A BG ####[facility] [address] [place], [place] [address]Dr. Phani El VT [facility] Comment on above: Performed By: #### A BG ####[facility] Ieab[address]we[address] [place], [place] [address]Dr. Phani El ECHOCARDIO M/2D COMPLETEon 0 07-08-2022 ECHOCARDIO M/2D COMPLETE Patient: FRANKY MORALES ICindy Exam Date: 07/08/2022 : 1965 Gender:F Ordering : DR. MAGDALENA DOWNING . Admission #: [id number] Family : MEREDITH PHOENIX [facility] Order #: [id number] CLICK HERE TO VIEW EXAM ECHOCARDIOGRAM REPORT [...] Garcia M.D. on 07/08/2022 at 18:14 Normal [facility] CT LUNG CANCER SCREENINGon 0 05-29-2022 [...] by: MELISSA ROSENBERG Date: 2022-05-29 09:36 Normal [facility] CBC AUTO DIFFon 05-05-2022 BASO # 0.1 103/ul Normal 0.0-0.1 [facility] Comment on above: Performed By: #### C BC #### [facility] [address] [place] [address] Dr. Phani El Basophils/100 WBC (Bld) 0.8 % Normal 0.2-2.0 [facility] Comment on above: Performed By: #### C BC #### [facility] [address] [place] [address] Dr. Phani El EO # 0.1 103/ul Normal 0.0-0.7 [facility] Comment on above: Performed By: #### C BC #### [facility] [address] [place] [address] Dr. Phani El Eosinophils/100 WBC (Bld) 2.0 % Normal 0.9-7.0 [facility] Comment on above: Performed By: #### C BC #### [facility] [address] [place] [address] Dr. Phani El Erythrocyte distribution width (RBC) [Ratio] 14.0 % Normal 11.0-15.0 [facility] Comment on above: Performed By: #### C BC #### [facility] [address] [place] [address] Dr. Phani El Hematocrit (Bld) [Volume fraction] 48.7 % Critically high 36.0-48.0 [facility] Comment on above: Performed By: #### C BC #### [facility] [address] [place] [address] Dr. Phani El Hemoglobin (Bld) [Mass/Vol] 15.9 g/dL Normal 12.0-16.0 [facility] Comment on above: Performed By: #### C BC #### [facility] [address] [place] [address] Dr. Phani El IG # 0.05 10e3/ul Critically high 0.00-0.03 [facility] Comment on above: Performed By: #### C BC #### [facility] [address] [place] [address] Dr. Phani El IG % 0.8 % Critically high 0.0-0.5 [facility] Comment on above: Performed By: #### C BC #### [facility] [address] [place] [address] Dr. Phani El LYMPH # 1.9 103/ul Normal 1.2-3.8 [facility] Comment on above: Performed By: #### C BC #### [facility] [address] [place] [address] Dr. Phani El Lymphocytes/100 WBC (Bld) 30.1 % Normal 20.5-60.0 [facility] Comment on above: Performed By: #### C BC #### [facility] [address] [place] [address] Dr. Phani El MANUAL DIFF REQ NO Normal [facility] Comment on above: Performed By: #### C BC #### [facility] [address] [place] [address] [address] Phani El MCH (RBC) [Entitic mass] 32.9 pg Normal 26.7-34.0 [facility] Comment on above: Performed By: #### C BC #### [facility] [address] [place] [address] [address] Phani El MCHC (RBC) [Mass/Vol] 32.6 g/dL Normal 29.9-35.2 [facility] Comment on above: Performed By: #### C BC #### [facility] [address] [place] [address] [address] Phani El MCV (RBC) [Entitic vol] 100.8 fL Critically high 81.0-99 .0 [facility] Comment on above: Performed By: #### C BC #### [facility] [address] [place] [address] Dr. Phani El MONO # 0.5 103/ul Normal 0.3-0.8 [facility] Comment on above: Performed By: #### C BC #### [facility] [address] [place] [address] Dr. Phani El Monocytes/100 WBC (Bld) 7.2 % Normal 1.7-12.0 [facility] Comment on above: Performed By: #### C BC #### [facility] [address] [place] [address] Dr. Phani El NEUT # 3.8 103/ul Normal 1.4-6.5 [facility] Comment on above: Performed By: #### C BC #### [facility] [address] [place] [address] Dr. Phani El Neutrophils/100 WBC (Bld) 59.1 % Normal 43.0-75.0 [facility] Comment on above: Performed By: #### C BC #### [facility] [address] [place] [address] Dr. Phani El Platelet mean volume (Bld) [Entitic vol] 11.0 fL Normal 9.5-13.5 [facility] Comment on above: Performed By: #### C BC #### [facility] [address] [place] [address] [address] Phani El PLT 167 103/ul Normal 150-450 [facility] Comment on above: Performed By: #### C BC #### [facility] [address] [address] [address] Phani El RBC 4.83 106/ul Normal 4.20-5.40 [facility] Comment on above: Performed By: #### C BC #### [facility] [address] [place] [address] [address] Phani El WBC 6.4 103/ul Normal 4.0-11.0 [facility] Comment on above: Performed By: #### C BC #### [facility] [address] [place] [address] [address] Phani El GLYCOHEMOGLOBIN A1Con 2022 ADA RECOMMENDATION SEE BELOW Normal [facility] Comment on above: Result Comment: ADA RECOMMENDED LIMIT 4.0 - 6.0 ADA THERAPEUTIC TARGET < 7.0 ACTION SUGGESTED > 7.0 Performed By: #### A 1C ####[facility] [address] [place] [address]Dr. Phani El Glucose [Mass/Vol] 114 mg/dL Normal [facility] Comment on above: Performed By: #### A 1C ####[facility] [address] [place] [address]Dr. Phani El HbA1c (Bld) [Mass fraction] 5.6 % Normal 4.5-6.2 [facility] Comment on above: Performed By: #### A 1C ####[facility] [address] [place] [address]Dr. Phani El LIPID PROFILEon 05-05-2022 CHOL-HDL RATIO NORM SEE BELOW Normal [facility] Comment on above: Result Comment: 3.3 - 4.4 LOW RISK 4.4 - 7.1 AVERAGE RISK 7.1 - 11.0 MODERATE RISK >11.0 HIGH RISK Performed By: #### C MP, LIPID #### [facility] [address] [address] [address] Phani El Cholesterol [Mass/Vol] 178 mg/dL Normal <=200 [facility] Comment on above: Performed By: #### C MP, LIPID #### [facility] [address] [place], [place] [address] Dr. Phani El Cholesterol in HDL [Mass/Vol] 54 mg/dL Normal 40-60 [facility] Comment on above: Performed By: #### C MP, LIPID #### [facility] [address] [place] [address] [address] Phani El Cholesterol in LDL [Mass/Vol] 86.6 mg/dL Normal [facility] Comment on above: Performed By: #### C MP, LIPID #### [facility] [address] [place] [address] [address] Phani El Cholesterol.total/Choles terol in HDL [Mass ratio] 3.3 {ratio} Normal [facility] Comment on above: Performed By: #### C MP, LIPID #### [facility] [address] [place] [address] [address] Phani El HDL NORMAL > or = 60 mg/dl - LOW CARDIOVASCULAR RISK <40 mg/dl - HIGH CARDIOVASCULAR RISK Normal [facility] Comment on above: Performed By: #### C MP, LIPID #### [facility] [address] [place] [address] [address] Phani El LDL CALC NORMAL SEE BELOW Normal [facility] Comment on above: Result Comment: <100 mg/dl OPTIMAL 100 - 129 mg/dl NEAR OR ABOVE OPTIMAL 130 - 159 mg/dl BORDERLINE HIGH 160 - 189 mg/dl HIGH >190 mg/dl VERY HIGH Performed By: #### C MP, LIPID #### [facility] [address] [place] [address] [address] Phani El Triglyceride [Mass/Vol] 187 mg/dL Critically high <=150 [facility] Comment on above: Performed By: #### C MP, LIPID #### [facility] [address] [place] [address] [address] Phani El VLDL CALC 37.4 mg/dL Normal [facility] Comment on above: Performed By: #### C MP, LIPID #### [facility] [address] [place], [place] [address] Dr. Phani El PROF 14(COMP METB)on 023 Albumin [Mass/Vol] 3.6 g/dL Normal 3.4-5.[address] [facility] Comment on above: Performed By: #### C MP, LIPID ####[facility] [address] [place] [address]11DrCindy El Albumin/Globulin [Mass ratio] 1.1 {ratio} Normal [facility] Comment on above: Performed By: #### C MP, LIPID ####[facility] [address]ts[address] [place] [address]DrCindy El ALP [Catalytic activity/Vol] 91 U/L Normal 46-116 [facility] Comment on above: Performed By: #### C MP, LIPID ####[facility] [address] [place] [address]Dr. Phani El ALT [Catalytic activity/Vol] 34 U/L Normal 14-59 [facility] Comment on above: Performed By: #### C MP, LIPID ####[facility] [address] [place] [address]11DrCindy El Anion gap [Moles/Vol] 11.6 mmol/L Normal [facility] Comment on above: Performed By: #### C MP, LIPID ####[facility] [address]cl[address] [place] [address]Dr. Phani El AST [Catalytic activity/Vol] 18 U/L Normal 15-37 [facility] Comment on above: Performed By: #### C MP, LIPID ####[facility] [address] [place] [address]Dr. Phani El Bilirubin [Mass/Vol] 0.6 mg/dL Normal 0.2-1.0 [facility] Comment on above: Performed By: #### C MP, LIPID ####[facility] [address] [place] [address]Dr. Phani El Calcium [Mass/Vol] 9.2 mg/dL Normal 8.5-10.[address] [facility] Comment on above: Performed By: #### C MP, LIPID ####[facility] [address] [place] [address]Dr. Phani El Chloride [Moles/Vol] 106 mmol/L Normal 98-107 [facility] Comment on above: Performed By: #### C MP, LIPID ####[facility] [address]mfqi[address] [place] [address]Dr. Phani El CO2 [Moles/Vol] 32.3 mmol/L Critically high 21.0-32.0 [facility] Comment on above: Performed By: #### C MP, LIPID ####[facility] [address] [place], [place] [address]Dr. Phani El Creatinine [Mass/Vol] 1.04 mg/dL Critically high 0.55-1.02 [facility] Comment on above: Performed By: #### C MP, LIPID ####[facility] Z[address] [place], [place] [address]Dr. Phani El EGFR-AF TONGAN >60 Normal >=60 [facility] Comment on above: Performed By: #### C MP, LIPID ####[facility] [address] [place], [place] [address]Dr. Phani El EGFR-NON AF TONGAN 54 mL/min/1.73m2 Critically low >=60 [facility] Comment on above: Performed By: #### C MP, LIPID ####[facility] [address]zi[address] [place] [address]Dr. Phani El Globulin (S) [Mass/Vol] 3.4 g/dL Normal [facility] Comment on above: Performed By: #### C MP, LIPID ####[facility] [address]rtr[address] [place], [place] [address]Dr. Phani El Glucose [Mass/Vol] 124 mg/dL Critically high 74-106 [facility] Comment on above: Performed By: #### C MP, LIPID ####[facility] [address]lzb[address] [place], [place] [address]Dr. Phani El Potassium [Moles/Vol] 3.9 mmol/L Normal 3.5-5.1 [facility] Comment on above: Performed By: #### C MP, LIPID ####[facility] [address] [place] [address]Dr. Phani El Protein [Mass/Vol] 7.0 g/dL Normal 6.4-8.[address] [facility] Comment on above: Performed By: #### C MP, LIPID ####[facility] [address] [place] [address]Dr. Phani El Sodium [Moles/Vol] 146 mmol/L Critically high 136-145 T [facility] Comment on above: Performed By: #### C MP, LIPID ####[facility] [address] [place] [address]Dr. Phani El Urea nitrogen [Mass/Vol] 14.0 mg/dL Normal 7.0-18.0 [facility] Comment on above: Performed By: #### C MP, LIPID ####[facility] [address]wyn[address] [place] [address]Dr. Phani El Urea nitrogen/Creatinine [Mass ratio] 13.5 mg/mg Normal [facility] Comment on above: Performed By: #### C MP, LIPID ####[facility] [address] [place] [address]Dr. Phani El VITAMIN B12on 05-05-2022 Cobalamin (Vitamin B12) [Mass/Vol] 321.0 pg/mL Normal 193.0-986.0 [facility] Comment on above: Performed By: #### V ITAD, VITB12 #### [facility] [address] [place] [address] [address] Phani El VITAMIN D 25 OHon 05-05-2022 VIT D 25-OH 58.7 ng/mL Normal [facility] Comment on above: Performed By: #### V ITAD, VITB12 #### [facility] [address] [place] [address] [address] Phani El VIT D RANGES SEE BELOW Normal [facility] Comment on above: Result Comment: <20 ng/mL Vit D deficient 20 - <30 ng/mL Vit D insufficient 30 - 100 ng/mL Vit D sufficient >100 ng/mL Potential Toxicity Performed By: #### V ITAD, VITB12 #### [facility] [address] [address] [address] Phani El XR CHEST 2 Von [...] LORI FROST Date: 2022-05-05 10:05 Normal [facility] Ambulatory Visit Summaryon 0 03-24-2022 Ambulatory Visit Summary FRANKY GAGNON I :1965 Visit Date:03/24/2022 Ambulatory Visit Instructions [...] BSO - Total abdominal hysterectomy and bilateral salpingo-oophorectom y, Tubal ligation. Medications What How Much When [...] B12 deficiency Vitamin D deficiency Normal [facility] General Surgery Office/Clini c Noteon 03-24-2022 General [...] BSO - Total abdominal hysterectomy and bilateral salpingo-oophorectom y, Tubal ligation. Medications Aldactone 50 mg Tab, [...] inactivated - Not Given Patient Refuses Normal [facility] Comment on above: Result Comment: Elec tronically Signed By: NABIL AMADOR, Bryson Steinberg\Date and Time Signed: 03/24/22 13:12 EST Reminderson 03-24-2022 Reminders - From: Kristine Harrison LPN To: N - Clinical; Sent: 03/24/2022 13:05:34 EST Show up: 01/26/2032 07:00:00 EST Subject: colonoscopy recall Due Date/Time: 02/26/2032 07:00:00 EST Reminder/Recall Patient is due for screening colonoscopy 02/26/2032. Normal [facility] Covid-19 PCR (CVDTBH)on 02-10 SARS-CoV-2 (COVID-19) RNA MARISOL+probe Ql (Unsp spec) Detected Abnormal NOT DETECTED [facility] Comment on above: Result Comment: This test is not yet approved or cleared by the [place] FDA. When there are no FDA-approved or cleared tests available, and other criteria are met, FDA can make tests available under an emergency access mechanism called an Emergency Use Authorization (EUA). The EUA for this test is supported by the [place] of Health and Human Service's (HHS's) declaration [...] used). Performed By: #### C VDTBH #### [facility] [address] [place] [address] [address] Phani El INFLUENZA A AND B AGon 03-10 [facility] SEE BELOW Normal [facility] Comment on above: Result Comment: Nega tive for Flu A protein angiten. Infection due to Flu A cannot be ruled out. Flu A angiten in the sample may be below the detection limit of the test. Performed By: #### I NFLUAB ####[facility] [address] [place] [address]Dr. Phani El INFLUBNEGH SEE BELOW Normal [facility] Comment on above: Result Comment: Nega tive for Flu B protein antigen. Infection due to Flu B cannot be ruled out. Flu B antigen in the sample may be below the detection limit of the test. Performed By: #### I NFLUAB ####[facility] [address] [place] [address]Dr. Phani El INFLUENZA A AG Negative Normal NEGATIVE SEE COMMENT [facility] Comment on above: Performed By: #### I NFLUAB ####[facility] [address] [place], [place] [address]Dr. Phani El INFLUENZA B AG Negative Normal NEGATIVE SEE COMMENT [facility] Comment on above: Performed By: #### I NFLUAB ####[facility] [address] [place] [address]DrCindy El Covid-19 PCR ([facility]on 02-09 SARS-CoV-2 (COVID-19) RNA MARISOL+probe Ql (Unsp spec) Detected Abnormal NOT DETECTED [facility] Comment on above: Result Comment: This test is not yet approved or cleared by the [place] FDA. When there are no FDA-approved or cleared tests available, and other criteria are met, FDA can make tests available under an emergency access mechanism called an Emergency Use Authorization (EUA). The EUA for this test is supported by the [employer] of Health and Human Service's declaration that [...] longer be used). Performed By: #### C [facility] #### [facility] [address] [place] [address] Dr. Phani El Pathology Noteon 02-27-2022 Pathology Note [id number] #1.00CD:127 Normal [facility] Outside Colonoscopyon 2022 Outside Colonoscopy [id number] #1.00CD:127 Normal [facility] [facility] 02-26[facility]2022 Reminders - From: Kristine Harrison LPN To: Kristine Harrison LPN; Sent: 02/26/2022 11:14:25 EST Show up: 05/18/2022 07:00:00 EDT Subject: Ambulatory Reminder Due Date/Time: 05/27/2022 07:00:00 EDT Reminder/Recall log in to extra lap top in [place] to keep account active Normal [facility] Lab Reportson 02-23-2022 Lab Reports [id number] #1.00CD:127 Normal [facility] Covid-19 PCR (CVDTB)on 02-08 SARS-CoV-2 (COVID-19) RNA MARISOL+probe Ql (Unsp spec) Not detected Normal NOT DETECTED [facility] Comment on above: Result Comment: This test is not yet approved or cleared by the [place] FDA. When there are no FDA-approved or cleared tests available, and other criteria are met, FDA can make tests available under an emergency access mechanism called an Emergency Use Authorization (EUA). The EUA for this test is supported by the [place] of Health and Human Service's (HHS's) declaration [...] consistent with SARS-CoV-2. Performed By: #### [facility] ####[facility] [id number] [place], [place] [address]Zy. Phani El Pre-Certification Formon Pre-Certification Form [id number] [facility] [id number]#1.00CD:127 Normal [facility] Consent for Procedure/Surger yon 02-05-2022 Consent for Procedure/Surgery [id number] #1.00CD:127 Normal [facility] Formson 02-05-2022 Forms [id number] #1.00CD:127 Normal [facility] Physician Referralon 022 Physician Referral [id number] #1.00CD:127 Normal [facility] MRI Knee w/o Lefton 12-26-19 MRI [...] by Jason Sanchez on 12/25/2021 1505 Normal [facility] MRI LSMONTREAT WO CONon 12-05-19 MRI LSMONTREAT WO CON EXAMINATION: MRI LSMONTREAT WO CON HISTORY: Low back pain COMPARISON: [...] by: NADINE GRANT Date: 2021-12-04 17:54 Normal [facility] XR LSPINE 2_3 VIEWSon 2021 XR LSPINE 2_3 VIEWS EXAMINATION: XR LSPINE 2_3 VIEWS HISTORY: Low back pain COMPARISON: 05/26/2016 FINDINGS: BONES: Normal alignment with no acute fracture or spondylolisthesis. Mild degenerative spondylosis and facet osteoarthropathy DISC SPACES: Mild multilevel disc space narrowing most significant at L5-S1 PARASPINOUS: Negative. No paraspinous abnormality is seen. OTHER: Negative. IMPRESSION: Mild degenerative changes Electronically authenticated by: NADINE GRANT Date: 2021-09-30 07:20 Normal [facility] MRI Knee w/o Lefton 07-30-19 22 MRI Knee w/o Left HISTORY: Knee pain and instability. 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 Date Time Vital Sign Value Performing Clinician Nicolasa gardiner 10-31-2024 11:25-0400 Body height 165.1 cm Jaymie Phoenix PROTECTION ANALYST-C Work Phone: [facility] 10-31-2024 11:25-0400 Body mass index (BMI) [Ratio] 41.8 kg/m2 Jaymie Phoenix PROTECTION ANALYST-C Work Phone: [facility] 10-31-2024 11:25-0400 Body temperature 97.5 [degF] Jaymie Phoenix PROTECTION ANALYST-C Work Phone: [facility] 10-31-2024 11:25-0400 Body weight 114.07 kg Jaymie Phoenix PROTECTION ANALYST-C Work Phone: [facility] 10-31-2024 11:25-0400 Diastolic blood pressure 78 mm[Hg] Jaymiecaesar Phoenix PROTECTION ANALYST-C Work Phone: [facility] 10-31-2024 11:25-0400 Heart rate 87 /min Jaymiecaesar Phoenix PROTECTION ANALYST-C Work Phone: [facility] 10-31-2024 11:25-0400 Respiratory rate 22 /min Jaymiecaesar Phoenix PROTECTION ANALYST-C Work Phone: [facility] 10-31-2024 11:25-0400 SaO2% (BldA) [Mass fraction] 92 % Jaymiecaesar Phoenix PROTECTION ANALYST-C Work Phone: [facility] 10-31-2024 11:25-0400 Systolic blood pressure 110 mm[Hg] Jaymie Phoenix PROTECTION ANALYST-C Work Phone: [facility] 08-31-2024 13:00-0400 Body mass index (BMI) [Ratio] 40.77 kg/m2 Nat Beatriz DO Work Phone: [facility] 08-31-2024 13:00-0400 Body weight 111.13 kg Nat Beatriz DO Work Phone: [facility] 08-31-2024 13:00-0400 Diastolic blood pressure 64 mm[Hg] Nat Beatriz DO Work Phone: [facility] 08-31-2024 13:00-0400 Heart rate 86 /min Nat Beatriz DO Work Phone: [facility] 08-31-2024 13:00-0400 SaO2% (BldA) [Mass fraction] 94 % Nat Beatriz DO Work Phone: [facility] 08-31-2024 13:00-0400 Systolic blood pressure 110 mm[Hg] Nat Henderson DO Work Phone: [facility] 07-31-2024 10:09-0400 Body mass index (BMI) [Ratio] 40.9 kg/m2 Jaymie Phoenix PROTECTION ANALYST Work Phone: [facility] 07-31-2024 10:09-0400 Body temperature 98.1 [degF] Jaymie Castañedaaminaz PROTECTION ANALYST Work Phone: [facility] 07-31-2024 10:09-0400 Body weight 111.49 kg Jaymiecaesar Xavierholz PROTECTION ANALYST Work Phone: [facility] 07-31-2024 10:09-0400 Diastolic blood pressure 70 mm[Hg] Jaymie Xavierholz PROTECTION ANALYST Work Phone: [facility] 07-31-2024 10:09-0400 Heart rate 80 /min Jaymie Xaviersandraz PROTECTION ANALYST Work Phone: [facility] 07-31-2024 10:09-0400 Respiratory rate 24 /min Jaymie Ducholz PROTECTION ANALYST Work Phone: [facility] 07-31-2024 10:09-0400 SaO2% (BldA) [Mass fraction] 92 % Jaymiecaesar Francoisz PROTECTION ANALYST Work Phone: [facility] 07-31-2024 10:09-0400 Systolic blood pressure 104 mm[Hg] Jaymie Xaviersandraz PROTECTION ANALYST Work Phone: [facility] 03-14-2024 14:53-0500 Body mass index (BMI) [Ratio] 40.7 kg/m2 Christraymundoer Wong DO Work Phone: [facility] 03-14-2024 14:53-0500 Body weight 110.95 kg Christopher Wong DO Work Phone: [facility] 03-14-2024 14:53-0500 Diastolic blood pressure 82 mm[Hg] Mikieer Wong DO Work Phone: [facility] 03-14-2024 14:53-0500 Heart rate 76 /min Saumya Venturaett DO Work Phone: [facility] 03-14-2024 14:53-0500 SaO2% (BldA) [Mass fraction] 94 % Christraymundoer Wong DO Work Phone: [facility] 03-14-2024 14:53-0500 Systolic blood pressure 128 mm[Hg] Christmckayla Venturaett DO Work Phone: [facility] 02-10-2024 13:31-0500 Body height 165.1 cm Jaymie Aichholz PROTECTION ANALYST Work Phone: [facility] 02-10-2024 13:31-0500 Body mass index (BMI) [Ratio] 40.94 kg/m2 Jaymie Aichholz PROTECTION ANALYST Work Phone: [facility] 02-10-2024 13:31-0500 Body temperature 98.1 [degF] Jaymie Maddyhholz PROTECTION ANALYST Work Phone: [facility] 02-10-2024 13:31-0500 Body weight 111.58 kg Jaymie Aichholz PROTECTION ANALYST Work Phone: [facility] 02-10-2024 13:31-0500 Diastolic blood pressure 80 mm[Hg] Jaymie Aichholz PROTECTION ANALYST Work Phone: [facility] 02-10-2024 13:31-0500 Heart rate 87 /min Jaymie Aichholz PROTECTION ANALYST Work Phone: [facility] 02-10-2024 13:31-0500 Respiratory rate 18 /min Jaymie Aichholz PROTECTION ANALYST Work Phone: [facility] 02-10-2024 13:31-0500 SaO2% (BldA) [Mass fraction] 94 % Jaymie Aichholz PROTECTION ANALYST Work Phone: [facility] 02-10-2024 13:31-0500 Systolic blood pressure 110 mm[Hg] Jaymie Aichholz PROTECTION ANALYST Work Phone: [place] [address]-25-2024 10:30-0500 Body height 165.1 cm Jaymie Aichholz PROTECTION ANALYST Work Phone: [facility] 01-03-2024 10:30-0500 Body mass index (BMI) [Ratio] 40.6 kg/m2 Jaymie Aichholz PROTECTION ANALYST Work Phone: [facility] 01-03-2024 10:30-0500 Body temperature 98.1 [degF] Jaymie Aichholz PROTECTION ANALYST Work Phone: [facility] 01-03-2024 10:30-0500 Body weight 110.68 kg Jaymie Aichholz PROTECTION ANALYST Work Phone: [facility] 01-03-2024 10:30-0500 Diastolic blood pressure 86 mm[Hg] Jaymie Aichholz PROTECTION ANALYST Work Phone: [facility] 01-03-2024 10:30-0500 Heart rate 89 /min Jaymie Aichholz PROTECTION ANALYST Work Phone: [facility] 01-03-2024 10:30-0500 Respiratory rate 19 /min Jaymie Aichholz PROTECTION ANALYST Work Phone: [facility] 01-03-2024 10:30-0500 SaO2% (BldA) [Mass fraction] 91 % Jaymie Aichholz PROTECTION ANALYST Work Phone: [facility] 01-03-2024 10:30-0500 Systolic blood pressure 106 mm[Hg] Jaymie Aichholz PROTECTION ANALYST Work Phone: [facility] 03-25-2023 13:13-0500 Body height 165.1 cm Jaymie Aichholz PROTECTION ANALYST Work Phone: [facility] 03-25-2023 13:13-0500 Body mass index (BMI) [Ratio] 42.9 kg/m2 Jaymie Aichholz PROTECTION ANALYST Work Phone: [facility] 03-25-2023 13:13-0500 Body temperature 97.5 [degF] Jaymie Aichholz PROTECTION ANALYST Work Phone: [facility] 03-25-2023 13:13-0500 Body weight 116.94 kg Jaymie Aichholz PROTECTION ANALYST Work Phone: [facility] 03-25-2023 13:13-0500 Diastolic blood pressure 68 mm[Hg] Jaymie Aichholz PROTECTION ANALYST Work Phone: [facility] 03-25-2023 13:13-0500 Heart rate 71 /min Jaymie Aichholz PROTECTION ANALYST Work Phone: [facility] 03-25-2023 13:13-0500 Respiratory rate 20 /min Jaymie Aichholz PROTECTION ANALYST Work Phone: [facility] 03-25-2023 13:13-0500 SaO2% (BldA) [Mass fraction] 95 % Jaymie Aichholz PROTECTION ANALYST Work Phone: [facility] 03-25-2023 13:13-0500 Systolic blood pressure 108 mm[Hg] Jaymie Aichholz PROTECTION ANALYST Work Phone: [facility] 03-16-2023 13:35-0500 Body height 165.1 cm Jaymie Aichholz PROTECTION ANALYST Work Phone: [facility] 03-16-2023 13:35-0500 Body mass index (BMI) [Ratio] 41.6 kg/m2 Jaymie Aichholz PROTECTION ANALYST Work Phone: [facility] 03-16-2023 13:35-0500 Body temperature 98.4 [degF] Jaymie Maddyhholz PROTECTION ANALYST Work Phone: [facility] 03-16-2023 13:35-0500 Body weight 113.4 kg Jaymie Aichholz PROTECTION ANALYST Work Phone: [facility] 03-16-2023 13:35-0500 Diastolic blood pressure 72 mm[Hg] Jaymie Aichholz PROTECTION ANALYST Work Phone: [facility] 03-16-2023 13:35-0500 Heart rate 77 /min Jaymie Aichholz PROTECTION ANALYST Work Phone: [facility] 03-16-2023 13:35-0500 Respiratory rate 18 /min Jaymie Phoenix PROTECTION ANALYST Work Phone: [facility] 03-16-2023 13:35-0500 SaO2% (BldA) [Mass fraction] 95 % Jaymie Phoenix PROTECTION ANALYST Work Phone: [facility] 03-16-2023 13:35-0500 Systolic blood pressure 112 mm[Hg] Jaymie Phoenix PROTECTION ANALYST Work Phone: [facility] 02-03-2022 13:27-0500 Blood Pressure Location Bryson NILL [facility] [place] 02-03-2022 13:27-0500 Diastolic blood pressure 80 mm[Hg] Bryson NILL [facility] [place] 02-03-2022 13:27-0500 Heart rate 72 /min Bryson NILL [facility] [place] 02-03-2022 13:27-0500 Respiratory rate 16 /min Bryson NILL [facility] [place] 02-03-2022 13:27-0500 Systolic blood pressure 126 mm[Hg] Bryson NILL [facility] [place] Encounters Encounter Date Encounter Type Care Provider Facility Start: 10-31-2024 End: 10-31-2024 ambulatory Jaymie Phoenix NP-C Work Phone: [facility] Work Phone: Start: 10-31-2024 End: 10-31-2024 Patient encounter procedure Jaymie Phoenix PROTECTION ANALYST-C -[facility] Work Phone: Start: 10-28-2024 Patient encounter procedure Jaymie Phoenix PROTECTION ANALYST-C Work Phone: [facility] Start: 10-10-2024 Non-patient / Non-visit Jaymie kohler PROTECTION ANALYST-C -[facility] Work Phone: Start: 09-29-2024 End: 09-29-2024 Refill Jaymie Phoenix PROTECTION ANALYST Work Phone: [facility] Comment on above: Gastro-esophageal re flux disease without esophagitis; Mixed hyperlipidemia ; Fibromyalgia; Localized edema Start: 09-19-2024 End: 09-19-2024 Clinisync Result Encounter Generic External Data Provider [facility] Unsolicited Start: 09-19-2024 End: 09-19-2024 Clinisync Result Encounter Generic External Data Provider [facility] External [facility] Unsolicited Start: 08-31-2024 End: 08-31-2024 Bamboo flowsheet Nat Jose Beatriz DO Work Phone: [facility] Start: 08-31-2024 End: 08-31-2024 Bamboo flowsheet Nat K Beatriz DO Work Phone: [facility] Start: 08-31-2024 End: 08-31-2024 ambulatory NAT HENDERSON Not Available Start: 08-31-2024 End: 08-31-2024 Office outpatient new 45 minutes Nat Jose Beatriz DO Work Phone: [facility] Comment on above: WINSOME (obstructive sle ep apnea) (Primary Dx); Cigarette smoker Start: 08-29-2024 Registered Recurring Arash Damian MD - Credible Start: 08-29-2024 End: 08-29-2024 ambulatory Alphonse Damian Facility:[facility] Comment on above: Acute back pain with sciatica, unspecified laterality (Primary Dx) Start: 08-28-2024 End: 08-28-2024 Orders Only Jaymie Phoenix PROTECTION ANALYST Work Phone: [facility] Comment on above: Acute back pain with sciatica, unspecified laterality (Primary Dx) Start: 08-05-2024 End: 08-06-2024 Refill Jaymie Phoenix PROTECTION ANALYST Work Phone: [facility] Comment on above: Tobacco dependence Start: 07-31-2024 End: 07-31-2024 Patient encounter procedure Jaymie Aichholz PROTECTION ANALYST Work Phone: [facility] Comment on above: Encounter for subseq [...] Start: 07-05-2024 End: 07-05-2024 Refill Jaymie Aichholz PROTECTION ANALYST Work Phone: [facility] Comment on above: Fibromyalgia Start: 06-26-2024 End: 06-26-2024 Refill Jaymie Aichholz PROTECTION ANALYST Work Phone: [facility] Comment on above: Tobacco dependence ( Primary Dx) Start: 06-14-2024 End: 06-14-2024 Refill Jaymie Aichholz PROTECTION ANALYST Work Phone: [facility] Comment on above: Mixed hyperlipidemia (CMS/HCC) Start: 05-09-2024 End: 05-09-2024 Refill Jaymie Aichholz PROTECTION ANALYST Work Phone: [facility] Comment on above: Fibromyalgia Start: 04-19-2024 End: 04-19-2024 Refill Jaymie Aichholz PROTECTION ANALYST Work Phone: [facility] Comment on above: Environmental and se asonal allergies (Primary Dx); COPD mixed type (CMS/HCC) Start: 04-08-2024 End: 04-10-2024 Refill Jaymie Aichholz PROTECTION ANALYST Work Phone: [facility] Comment on above: Fibromyalgia; Localized edema; Mixed hyperlipidemia (CMS/HCC) Start: 03-14-2024 End: 03-14-2024 Office outpatient new 30 minutes Blaneraymundosindhu Wong DO Work Phone: [facility] Comment on above: 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); Tremor Start: 03-14-2024 End: 03-14-2024 ambulatory SAUMYA BACK Not Available Start: 03-14-2024 End: 03-14-2024 Bamboo flowsheet Saumya Back DO Work Phone: [facility] Start: 03-14-2024 End: 03-14-2024 Bamboo flowsheet Mikiesindhu Wong DO Work Phone: [facility] Start: 02-10-2024 End: 02-10-2024 Bamboo flowsheet Jaymie Phoenix PROTECTION ANALYST Work Phone: [facility] Start: 02-10-2024 End: 02-10-2024 Bamboo flowsheet Jaymiecaesar Phoenix PROTECTION ANALYST Work Phone: [facility] Start: 02-10-2024 End: 02-10-2024 ambulatory JAYMIE AICHHOLZ Not Available Start: 02-10-2024 End: 02-10-2024 Office outpatient visit 25 minutes Jaymie Phoenix PROTECTION ANALYST Work Phone: [facility] Comment on above: COPD with acute exac erbation ([facility]) (Primary Dx); Morbid (severe) obesity due to excess calories ([facility]); Body mass index (BMI) 40.0-44.9, adult ([facility]); WINSOME (obstructive sleep apnea); COPD mixed type ([facility]); Gastroesophageal reflux disease, unspecified whether esophagitis present; Tobacco dependence; Gastro-esophageal reflux disease without esophagitis; Tremor Start: 02-03-2024 End: 02-06-2024 Refill Jaymie Alban PROTECTION ANALYST Work Phone: [facility] Comment on above: Fibromyalgia Start: 01-27-2024 End: 01-27-2024 Clinisync Result Encounter Jaymie Alban PROTECTION ANALYST Work Phone: [facility] Unsolicited Start: 01-27-2024 End: 01-27-2024 Clinisync Result Encounter Jaymie Alban PROTECTION ANALYST Work Phone: [facility] Unsolicited Start: 01-24-2024 End: 01-24-2024 Clinisync Result Encounter Jyamie Alban PROTECTION ANALYST Work Phone: [facility] Unsolicited Start: 01-24-2024 End: 01-24-2024 Clinisync Result Encounter Jaymie Alban PROTECTION ANALYST Work Phone: [facility] Unsolicited Start: 01-03-2024 End: 01-03-2024 Bamboo flowsheet Jaymie Alban PROTECTION ANALYST Work Phone: [facility] Start: 01-03-2024 End: 01-03-2024 Bamboo flowsheet Jaymie Alban PROTECTION ANALYST Work Phone: [facility] Start: 01-03-2024 End: 01-03-2024 Office outpatient visit 25 minutes Jaymie Phoenix PROTECTION ANALYST Work Phone: [facility] Comment on above: WINSOME (obstructive sle ep apnea) (Primary Dx); COPD mixed type ([facility]); Primary hypertension ([facility]); Fibromyalgia; BMI 40.0-44.9, adult ([facility]); Tobacco dependence; Mixed hyperlipidemia ([facility]); Vitamin D deficiency; Vitamin B12 deficiency; COPD with acute exacerbation ([facility]) Start: 01-03-2024 End: 01-03-2024 ambulatory JAYMIE AICHHOLZ Not Available Start: 12-31-2023 End: 12-31-2023 Refill Jaymie Alessandroz PROTECTION ANALYST Work Phone: [facility] Start: 12-30-2023 End: 12-31-2023 Refill Jaymie Aichholz PROTECTION ANALYST Work Phone: [facility] Comment on [...] Department Unsolicited Start: 11-24-2023 End: 11-24-2023 Refill Jaymiecaesar Phoenix PROTECTION ANALYST Work Phone: [facility] Comment on above: Mixed hyperlipidemia (CMS/HCC) Start: 10-26-2023 End: 10-26-2023 Refill Jaymie Alban PROTECTION ANALYST Work Phone: [facility] Comment on above: Fibromyalgia; Gastro-esophageal reflux disease without esophagitis Start: 06-03-2023 Patient encounter procedure Jaymie Phoenix PROTECTION ANALYST Work Phone: [facility] Start: 03-25-2023 Bamboo flowsheet Jaymie Phoenix PROTECTION ANALYST Work Phone: [facility] Start: 03-25-2023 Bamboo flowsheet Jaymiecaesar Phoenix PROTECTION ANALYST Work Phone: [facility] Start: 03-25-2023 End: 03-25-2023 Office outpatient visit 25 minutes Jaymie Phoenix PROTECTION ANALYST Work Phone: [facility] Comment on above: Edema of right lower extremity (Primary Dx); BMI 40.0-44.9, adult (CMS/HCC); Shortness of breath; COPD mixed type (CMS/HCC); Primary hypertension (CMS/HCC); Bilateral lower extremity edema Start: 03-16-2023 End: 03-16-2023 Office outpatient visit 25 minutes Jaymie Phoenix PROTECTION ANALYST Work Phone: [facility] Comment on above: COPD mixed type (CMS /HCC) (Primary Dx); Tobacco dependence; BMI 40.0-44.9, adult (CMS/HCC); Body mass index [BMI] 40.0-44.9, adult (Z68.41); Primary hypertension (CMS/HCC); Bilateral lower extremity edema Start: 07-08-2022 ambulatory MEREDITH PHOENIX Facil ity:[facility] Start: 05-29-2022 End: 05-30-2022 ambulatory MEREDITH HOLCOMB MADDYNikkiSANDRAHomer Facility:[facility] Start: 05-05-2022 End: 05-06-2022 ambulatory MEREDITH CASTAÑEDANikkiMADAY Facility:[facility] Start: 04-30-2022 End: 05-01-[address] JIM ALLAN . Facility:[facility] Start: 03-31-2022 End: 03-31-[address] JIM ALLAN . Facility:[facility] Start: 03-27-[address] JIM ALLAN . Faci lity:[facility] Start: 03-24-2022 End: 03-25-2022 ambulatory Bryson FERRER Facility:[facility] Start: 03-17-2022 ambulatory Bryson FERRER Facility :[facility] Start: 03-10-2022 End: 03-10-2022 ambulatory MEREDITH PHOENIX Facility:[facility] Start: 03-02-2022 Encounter for preprocedural laboratory examination DR JIM ALLAN . [facility] Start: 02-28-2022 End: 03-01-2022 Encounter for preprocedural laboratory examination MEREDITH JAYMIE MADDYNikkiMADAY Facility:[facility] Start: 02-28-2022 End: 03-01-2022 ambulatory MEREDITH CASTAÑEDANikkiMADAY Facility:[facility] Start: 02-25-2022 End: 02-26-2022 ambulatory Bryson FERRER Facility:CD:[id number] Start: 02-21-2022 End: 02-22-[address] BRYSON FERRER . Facility:[facility] Start: 02-06-2022 End: 02-07-2022 ambulatory JENNY THORNE . Facility:[facility] Start: 02-03-2022 End: 02-04-2022 ambulatory Tracy Phoenix Facility:[facility] Start: 02-03-2022 End: 02-03-2022 Patient encounter procedure Bryson FERRER General Surgery [facility] Start: 01-13-2022 End: 01-13-[address] JIM ALLAN . Facility:[facility] Start: 01-08-2022 End: 01-09-[address] JIM ALLAN . Facility:[facility] Start: 01-06-2022 ambulatory Bryson Hernandez NABIL Facility :[facility] Start: 12-23-2021 End: 12-23-[address] JIM [...] Data Provider Start: 02-10-2024 Mammography Jaymie kohler PROTECTION ANALYST Work Phone: Start: 01-27-2024 [facility] MICROALB CREAT R ATIO RANDOM Jaymie Phoenix PROTECTION ANALYST Work Phone: Start: 01-24-2024 ALL BASIC METABOLIC PANEL Jaymie Phoenix PROTECTION ANALYST Work Phone: Start: 01-24-2024 ALL LIPID PROFILE (FASTING) Jaymie Phoenix PROTECTION ANALYST Work Phone: Start: 12-25-2023 BLOOD CULTURE 2 Generic External Data Provider Start: 12-25-2023 BLOOD CULTURE 1 Generic External Data Provider Start: 12-24-2023 BLOOD CULTURE 2 Generic External Data Provider Start: 12-24-2023 BLOOD CULTURE 1 Generic External Data Provider Start: 03-25-2023 Mammography Jaymie Danette kohler PROTECTION ANALYST Work Phone: Start: 02-25-2022 Colonoscopy Jaymie Danette kohler PROTECTION ANALYST Work Phone: section Bryson Saldaña Ligation of fallopian tube Leslie FERRER Repair of meniscus Bryson HOWELL Total abdominal hysterectomy with bilateral salpingo-oophorectomy Bryson FERRER Plan of Treatment Date Care Activity Detail Author Start: 02-26-2032 Screening for malign ant neoplasm of colon [facility] Start: 08-02-2025 End: 08-02-2025 Patient encounter procedure 08/02/2025 10:30 AM EDT Office Visit [facility] [address] [place] [id number] Jaymie Phoenix, NILE [address] [place] [phone] [facility] Start: 07-31-2025 Medicare Annual [...] Visit [facility] [address] [place] [address] Jaymie Phoenix, NILE [address] [place] [phone] [facility] Start: 08-31-2024 End: 08-31-2024 Patient encounter procedure 08/31/2024 1:00 PM EDT Consult [facility] [address] [place] [id number] Nat eHnderson DO [address] [place] [address] [facility] Start: 07-31-2024 End: 07-31-2025 CT Chest for screening WO contrast CT lung screening low dose Imaging Routine Tobacco dependence Expected: 07/31/2024, Expires: 07/31/2025 [facility] Work Phone: Comment on above: Expected: 07/31/2024 , Expires: 07/31/2025 Start: 07-31-2024 End: 07-31-2024 Patient encounter procedure 07/31/2024 10:30 AM EDT Office Visit [facility] [address] [place] [phone] Jaymie Phoenix NP [address] [place] [phone] [facility] Start: 06-14-2024 Influenza vaccination Influenza Vacc ine (#1) [facility] Comment on above: Postponed from 10/09 (Patient Refused) Start: 06-05-2024 End: 06-05-2024 Patient encounter procedure 06/05/2024 3:40 PM EDT Office Visit [facility] [address] [place] [address] Sherice Tristan NP [address] [place] [phone] [facility] Start: 06-02-2024 Medicare Annual Well ness (AWV) Medicare Annual Wellness (AWV) [facility] Start: 05-10-2024 End: 05-10-2024 Patient encounter procedure 05/10/2024 2:00 PM EDT Office Visit [facility] [address] [place] [phone] Jaymie Phoenix, NILE [address] [place] [phone] [facility] Start: 04-06-2024 Influenza vaccination Influenza Vacc ine (#1) [facility] Comment on above: Postponed from 10/09 (Patient Refused) Start: 03-25-2024 Screening for malign ant neoplasm of breast Mammogram [facility] Start: 03-14-2024 End: 03-14-2024 Patient encounter procedure 03/14/2024 3:00 PM EST Office Visit [facility] [address] [place] [phone] Saumya Back DO [address] [place] [phone] Tremor [facility] Comment on above: Tremor Start: 01-26-2024 End: 01-26-2024 Patient encounter procedure 01/26/2024 10:30 AM EST Office Visit [facility] [address] [place] [phone] Jaymie Phoenix, NILE [address] [place] [phone] [facility] Start: 01-03-2024 End: 01-02-2025 25-hydroxyvitamin D3 [Mass/volume] in Serum or Plasma Vitamin D 25 hydroxy Lab Routine Vitamin D deficiency Expected: 01/03/2024 (Approximate), Expires: 01/02/2025 [facility] Comment on above: Expected: 01/03/2024 (Approximate), Expires: 01/02/2025 Start: 01-03-2024 End: 01-02-2025 Basic metabolic 1998 panel - Serum or Plasma Basic metabolic panel Lab Routine Primary hypertension (CMS/HCC) Expected: 01/03/2024 (Approximate), Expires: 01/02/2025 [facility] Comment on above: Expected: 01/03/2024 (Approximate), Expires: 01/02/2025 Start: 01-03-2024 End: 01-02-2025 Cobalamin (Vitamin B12) [Mass/volume] in Serum or Plasma Vitamin B12 Lab Routine Vitamin B12 deficiency Expected: 01/03/2024 (Approximate), Expires: 01/02/2025 [facility] Comment on above: Expected: 01/03/2024 (Approximate), Expires: 01/02/2025 Start: 01-03-2024 End: 01-02-2025 Lipid 1996 panel - Serum or Plasma Lipid panel Lab Routine Mixed hyperlipidemia (CMS/HCC) Expected: 01/03/2024 (Approximate), Expires: 01/02/2025 [facility] Comment on above: Expected: 01/03/2024 (Approximate), Expires: 01/02/2025 Start: 01-03-2024 End: 01-02-2025 Microalbumin/Creatinine panel in random Urine Microalbumin / creatinine, urine ratio Lab Routine Primary hypertension (CMS/HCC) Tobacco dependence Expected: 01/03/2024 (Approximate), Expires: 01/02/2025 [facility] Work Phone: Comment on above: Expected: 01/03/2024 (Approximate), Expires: 01/02/2025 Start: 01-03-2024 End: 01-02-2025 Urinalysis complete panel - Urine Urinalysis with reflex microscopic (clean catch) Lab Routine Primary hypertension (CMS/HCC) Tobacco dependence Expected: 01/03/2024 (Approximate), Expires: 01/02/2025 [facility] Comment on above: Expected: 01/03/2024 (Approximate), Expires: 01/02/2025 Start: 01-03-2024 End: 01-03-2024 Patient encounter procedure [facility] Comment on above: WINSOME (obstructive sle ep apnea) (Primary Dx); COPD mixed type (CMS/HCC); Primary hypertension (CMS/HCC); Fibromyalgia; BMI 40.0-44.9, adult (CMS/HCC); Tobacco dependence; Mixed hyperlipidemia (CMS/HCC); Vitamin D deficiency; Vitamin B12 deficiency Start: 10-10-2023 Influenza vaccination Influenza Vacc ine (#1) [facility] Start: 08-08-2023 Influenza vaccination Influenza Vacc ine (#1) [facility] Comment on above: Postponed from 10/09 (Patient Refused) Start: 04-06-2023 End: 04-06-2023 Patient encounter procedure 04/06/2023 1:40 PM EST Office Visit [facility] [address] [place] [phone] Jaymie Phoenix, NILE [address] [place] [phone] [facility] Start: 03-25-2023 End: 03-25-2024 CBC W Auto Differential panel - Blood CBC and differential Lab Routine Edema of right lower extremity Expected: 03/25/2023 (Approximate), Expires: 03/25/2024 [facility] Comment on above: Expected: 03/25/2023 (Approximate), Expires: 03/25/2024 Start: 03-25-2023 End: 03-25-2024 Comprehensive metabolic 2000 panel - Serum or Plasma Comprehensive metabolic panel Lab Routine Edema of right lower extremity Expected: 03/25/2023 (Approximate), Expires: 03/25/2024 [facility] Comment on above: Expected: 03/25/2023 (Approximate), Expires: 03/25/2024 Start: 03-25-2023 End: 03-25-2024 Fibrin D-dimer FEU [Mass/volume] in Platelet poor plasma D-dimer, quantitative Lab Routine Edema of right lower extremity Expected: 03/25/2023 (Approximate), Expires: 03/25/2024 [facility] Comment on above: Expected: 03/25/2023 (Approximate), Expires: 03/25/2024 Start: 03-25-2023 End: 03-25-2024 US.doppler Lower extremity vein - right Vascular US lower extremity venous duplex right Imaging STAT Edema of right lower extremity Expected: 03/25/2023, Expires: 03/25/2024 [facility] Work Phone: Comment on above: Expected: 03/25/2023 , Expires: 03/25/2024 Start: 03-25-2023 End: 03-25-2024 XR Chest 2 Views XR chest 2 views Imaging Routine Edema of right lower extremity Shortness of breath Expected: 03/25/2023, Expires: 03/25/2024 [facility] Comment on above: Expected: 03/25/2023 , Expires: 03/25/2024 Start: 08-16-1993 Screening for malign ant neoplasm of cervix HPV/Cotest [facility] Start: 08-16-1984 Screening for malign ant neoplasm of cervix Pap Smear [facility] Start: 1965 Medicare Annual Well ness (AWV) Medicare Annual Wellness (AWV) [facility] Start: 1965 Screening for malign ant neoplasm of colon [facility] Start: 1965 Screening for malign ant neoplasm of lung Lung Cancer Screening Shared Decision Making [facility] BLOOD CULTURE 1 BLOOD CULTURE 1 Lab Routine 12/24/2023 1:45 PM EST [facility] BLOOD CULTURE 1 BLOOD CULTURE 1 Lab Routine 12/25/2023 9:09 PM EST [facility] BLOOD CULTURE 2 BLOOD CULTURE 2 Lab Routine 12/24/2023 1:51 PM EST [facility] BLOOD CULTURE 2 BLOOD CULTURE 2 Lab Routine 12/25/2023 9:20 PM EST [facility] Immunizations Immunization Date Immunization Notes Care Provider Will santiago 08-29-2023 tetanus toxoid, reduced diphtheria toxoid, and acellular pertussis vaccine, adsorbed Jaymie Phoenix PROTECTION ANALYST Work Phone: [facility] 06-14-2020 Kelly SARS-CoV-2 Jaymie ramirez PROTECTION ANALYST Work Phone: [facility] NEGATED: Highlighted row has not occurred!02-03-2022 influenza virus vaccine, unspecified formulation Bryson [facility] Payers Date Payer Category Payer Self-pay 2021 Medicaid [employer] MED[employer] A [employer]ANTAGE [id number] 2015 Medicare [id number] 1963 Unknown [id number] 2.16.840.1.894452.3.579.2. 72 1963 Unknown [id number] 2.16.840.1.808434.3.579.2. 72 1963 Unknown [id number] 2.16.840.1.920592.3.579.2. 72 1963 Unknown [id number] 2.16.840.1.365092.3.579.2. 72 1963 Unknown [id number] 2.16.840.1.472217.3.579.2. 72 1963 Unknown [id number] 2.16.840.1.889884.3.579.2. 59 1963 Unknown [id number] 2.16.840.1.153112.3.579.2. 59 1963 Unknown [id number] 2.16.840.1.749049.3.579.2. 59 1963 Unknown [id number] 2.16.840.1.812363.3.579.2. 59 1963 Unknown [id number] 2.16.840.1.199092.3.579.2. 59 1963 Unknown [id number] 2.16.840.1.739097.3.579.2. 59 1963 Unknown [id number] 2.16.840.1.131049.3.579.2. 59 1963 Unknown [id number] 2.16.840.1.983972.3.579.2. 593 1963 Unknown [id number] 2.16.840.1.151308.3.579.2. 59 1963 Unknown [id number] 2.16.840.1.902251.3.579.2. 59 1963 Unknown [id number] 2.16.840.1.310907.3.579.2. 59 1963 Unknown [id number] 2.16.840.1.422766.3.579.2 59 1963 Unknown [id number] 2.16.840.1.280527.3.579.2 1963 Unknown [id number] 2.16.840.1.908995.3.579.2 59 1963 Unknown [id number] 2.16.840.1.761777.3.579.2 59 1963 Unknown [id number] 2.16.840.1.296467.3.579.2 59 1963 Unknown [id number] 2.16.840.1.450108.3.579.2 59 1963 Unknown [id number] 2.16.840.1.672660.3.579.2. 59 1963 Unknown [id number] 2.16.840.1.919261.3.579.2 59 1963 Unknown [id number] 2.16.840.1.229842.3.579.2. 59 1963 Unknown [id number] 2.16.840.1.076799.3.579.2. 59 1963 Unknown [id number] 2.16.840.1.151314.3.579.2. 59 1963 Unknown [id number] 2.16.840.1.731404.3.579.2. 1259 1963 Unknown [id number] 2.16.840.1.169874.3.579.2. 1258 1963 Unknown [id number] 2.16.840.1.527570.3.579.2. 1258 1963 Unknown [id number] 2.16.840.1.649161.3.579.2. 1258 1963 Unknown [id number] 2.16.840.1.385045.3.579.2. 9 1959 Private Health Insurance [id number] Medicaid [id number] Unknown [id number] 2.16.840.1.624409.3.579.2. 531 Unknown Regular Insurance [id number] Social History Date Type Detail Facility Start: 02-03-2022 Tobacco smoking status Heavy t obacco smoker (finding) [facility] Tobacco smoking status Never [facility] Start: 03-16-2023 End: 05-13-2023 Sex Assigned At Female [facility] Start: 01-26-2023 End: 09-01-2024 Tobacco smoking status TNIS Smokes tobacco daily [facility] History of [...] Only a little [facility] (I/We) worried whethomas er (my/our) food would run out before (I/we) got money to buy more. Sometimes true [facility] The food that (I/we) bought just didn't last, and (I/we) didn't have money to get more. Often true [facility] In the past 12 month s, was there a time when you were not able to pay the mortgage or rent on time? Yes [facility] Tobacco smoking stat us TNIS Unknown if ever smoked [facility] Work Phone: Sex Female (finding) [facility] Start: 1965 Sex Assigned At Female F [facility] Functional Status Date Assessment Result Facility 07-31-2024 Patient Health [facility] ionnaire 2 item (PHQ-2) [Reported] [facility] 07-31-2024 PHQ-9 quick depressi on assessment panel [Reported.PHQ] [facility] 02-03-2022 Functional Status N/A [facility] Clinical Notes 12-09-2021 to 08-31-2024 Nat Henderson DO - 08/31/2024 1:00 PM Maddi Phoenix NP - 07/31/2024 11:24 AM Maddi Phoenix NP - 07/31/2024 11:22 AM Maddi Phoenix NP - 07/31/2024 11:22 AM EDTPatient Instructions Note Date & Type Note Facility 08-31-2024 History of Presen t illness Narrative Images from the original note were not included. Franky Gagnon presents today for evaluation in regards to [...] by mouth at bedtime 90 tablet 1 Chxwybk-Ytfwoxnzufi-Illzlporxu (Breztri Aerosphere) 160-9-4.8 MCG/ACT aerosol Inhale 2 [...] (5000 UT) tablet as directed Orally HYDROcodone-acetaminophen (Franklin) 5-325 MG tablet Take 1 tablet by [...] (BMI) of 40.0 to 44.9 in adult ([facility]) 01/26/2023 COPD mixed type ([facility]) 01/26/2023 DENIES HX OF BLOOD BORNE [...] Nat Henderson DO documented in this encounter [facility] 07-31-2024 History of Presen t illness [...] Morbid (severe) obesity due to excess calories ([facility]) Discussed with patient their BMI (actual, verses [...] Associated Problem(s): Chronic kidney disease, stage 3a ([facility]) Check Chem 8 02 range is 89-92% Vrylar 3.5mg once daily Prazosin 3mg nightly- drug induced parkinson's Images from the original note were not included. Franky Gagnon is a 58 y.o. female presents with [...] Nightly atorvastatin (LIPITOR) 20 mg, Oral, Nightly Dxyjrbp-Tnakraepybz-Yzlhmqtzfs (Breztri Aerosphere) 160-9-4.8 MCG/ACT aerosol 2 puffs, Inhalation, 2 times daily, Inhale 2 puffs in the morning and 2 puffs before bedtime. bumetanide (Bumex) 0.5 MG tablet Take M W only cetirizine (ZYRTEC) 10 mg, Oral, Daily [...] (BMI) of 40.0 to 44.9 in adult ([facility]) 01/26/2023 COPD mixed type ([facility]) 01/26/2023 DENIES HX OF BLOOD BORNE [...] of the risks of continued smoking: stroke, VT, all forms of cancer, lung disease, and . Options for quitting smoking include: cold turkey, hypnosis, acupuncture, nicotine replacement meds (gum, lozenges, and patches), Buproprion, and Varenicline. At this time pt is encouraged to evaluate their goals for wanting to quit smoking, and reach out to provider when ready to start this process Would like chantix, dr gomez said ok to trial, just needs to [...] (Bumex) 0.5 MG tablet COPD mixed type (HCC) Current meds: breztri, albuterol HFA and neb prn Was referred to Pulmonology, is supposed to get a PFT prior to seeing pulmonology Relevant Medications Gprjher-Ewlennksucq-Lstrhgbyfu (Breztri Aerosphere) 160-9-4.8 MCG/ACT aerosol Anxiety and depression Continue with Dr Gomez GERD (gastroesophageal reflux disease) Recommendations: freq small meals, nothing to eat or drink at least 2 hours prior to bed, limit caffeine, alcohol, as well as spicy foods Meds to limit or avoid if possible: NSAIDS Elevate HOB if possible Current med: omeprazole Insurance correspondance about intermediate use of PPI Pt has been counseled on the risks of intermediate use, would like to continue WINSOME (obstructive [...] MG tablet Chronic kidney disease, stage 3a ([facility]) Check Chem 8 Screening for lung [...] of the risks of continued smoking: stroke, VT, all forms of cancer, lung disease, and . Options for quitting smoking include: cold turkey, hypnosis, acupuncture, nicotine replacement meds (gum, lozenges, and patches), Buproprion, and Varenicline. At this time pt is encouraged to evaluate their goals for wanting to quit smoking, and reach out to provider when ready to start this process Would like dr patricia thompson said ok to trial, just needs [...] Problem(s): Anxiety and depression Continue with Dr Gomez Associated Problem(s): Bilateral lower extremity edema Current [...] possible Current med: omeprazole Insurance correspondance about continuous churn buttermaker use of PPI Pt has been counseled on the risks of continuous churn buttermaker use, would like to continue Associated Problem(s): [...] . Compliant: no documented in this encounter [facility] 07-31-2024 Instructions Jaymie Phoenix NP - 07/31/2024 10:30 AM EDT Get labs completed Chantix: take as directed, contact me if worsening in mental health documented in this encounter [facility] 06-14-2024 Telephone encounter Note She is also due for her AWV, please call to schedule LA [facility] 06-14-2024 Miscellaneous Notes She is also due for her AWV, please call to schedule LA documented in this encounter [facility] 06-14-2024 Telephone encounter Note 90 day supply [facility] 06-14-2024 Miscellaneous Notes 90 day supply documented in this encounter [facility] 03-14-2024 History of Presen t illness Narrative Images from the original note were not included. Chief Complaint: Tremor Subjective Franky Gagnon, 58 y.o., female Patient presents today for [...] (BMI) of 40.0 to 44.9 in adult ([facility]) 01/26/2023 COPD mixed type ([facility]) 01/26/2023 DENIES HX OF BLOOD BORNE DISEASES Depression ([facility]) Fibromyalgia Open wound of left foot 01/26/2023 Open wound of second toe 01/26/2023 Other acute sinusitis 01/26/2023 Primary hypertension ([facility]) 01/26/2023 Tobacco dependence 01/26/2023 Past Surgical [...] , wrist extensors , wrist flexor , 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 LUE Strength deltoid , biceps , triceps , wrist extensors , wrist flexor , 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 RLE Strength illopsoas, quadriceps, tibialis [...] reflex 1+ . Forrest's sign negative. Coordination: Xiphsl-hf-pwph testing and rapid alternating movements are normal [...] and return instructions documented in this encounter [facility] 02-10-2024 History of Presen t illness Narrative Associated Problem(s): Tremor Will refer to neuro for this Differentials: side effects med, PD? Images from the original note were not included. Franky Gagnon is a 58 y.o. female presents with [...] (BMI) of 40.0 to 44.9 in adult ([facility]) 01/26/2023 COPD mixed type ([facility]) 01/26/2023 DENIES HX OF BLOOD BORNE DISEASES Depression ([facility]) Fibromyalgia Open wound of left foot 01/26/2023 Open wound of second toe 01/26/2023 Other acute sinusitis 01/26/2023 Primary hypertension ([facility]) 01/26/2023 Tobacco dependence 01/26/2023 Past Surgical [...] of the risks of continued smoking: stroke, VT, all forms of cancer, lung disease, and [...] possible Current med: omeprazole Insurance correspondance about intermediate use of PPI Pt has been counseled on the risks of continuous churn buttermaker use, would like to continue Associated Problem(s): [...] . Compliant: no documented in this encounter [facility] 01-03-2024 History of Presen t illness [...] the original note were not included. Franky Gagnon is a 58 y.o. female presents with [...] (BMI) of 40.0 to 44.9 in adult ([facility]) 01/26/2023 COPD mixed type ([facility]) 01/26/2023 DENIES HX OF BLOOD BORNE DISEASES Depression ([facility]) Fibromyalgia Open wound of left foot 01/26/2023 Open wound of second toe 01/26/2023 Other acute sinusitis 01/26/2023 Primary hypertension ([facility]) 01/26/2023 Tobacco dependence 01/26/2023 Past Surgical [...] of the risks of continued smoking: stroke, VT, all forms of cancer, lung disease, and [...] of the risks of continued smoking: stroke, VT, all forms of cancer, lung disease, and [...] use of PAP documented in this encounter [facility] 01-03-2024 Instructions Jaymie Phoenix NP - 01/03/2024 10:30 AM EST Referral to orthopaedic doctor Consider patches documented in this encounter [facility] 03-25-2023 History of Presen t illness [...] the original note were not included. Franky Gagnon is a 57 y.o. female presents with [...] (BMI) of 40.0 to 44.9 in adult ([facility]) 01/26/2023 COPD mixed type (CMS/HCC) 01/26/2023 DENIES [...] chest 2 views documented in this encounter [facility] 03-16-2023 History of Presen t illness [...] the original note were not included. Franky Gagnon is a 57 y.o. female presents with [...] (BMI) of 40.0 to 44.9 in adult ([facility]) 01/26/2023 COPD mixed type ([facility]) 01/26/2023 DENIES HX OF BLOOD BORNE DISEASES Depression ([facility]) Fibromyalgia Open wound of left foot 01/26/2023 Open wound of second toe 01/26/2023 Other acute sinusitis 01/26/2023 Primary hypertension ([facility]) 01/26/2023 Tobacco dependence 01/26/2023 Past Surgical [...] 40.0-44.9, adult (Z68.41) documented in this encounter [facility] 04-30-2022 Note CONSULTATION CONSULTATION DATE: 04/30/2022 [...] office on an as needed basis. [facility] 02-25-2022 Note OPERATIVE NOTE OPERATION DATE: 02/25/2022 PREOPERATIVE DIAGNOSIS: Positive Cologuard. POSTOPERATIVE DIAGNOSIS: Distal sigmoid polyps, 2-3 mm, four polyps. PROCEDURE: Colonoscopy to cecum with cold forceps polypectomy x4 for distal sigmoid polyps. SURGEON: Bryson Ferrer M.D. ANESTHESIA: Monitored anesthesia care. ESTIMATED BLOOD [...] good condition. CC: Patient's family physician [facility] 02-06-2022 Note CONSULTATION CONSULTATION DATE: [...] followed up in the clinic thereafter. [facility] 02-03-2022 Note Chief Complaint consultation [...] 30 days Tobacco (more content not included)... [facility] Comment on above: Result Comment: Elec [...] followed up in the clinic thereafter. [facility] 12-09-2021 Note CONSULTATION CONSULTATION DATE: [...] and would like to proceed. CC: Jaymie Phoenix CNP [facility] Evaluation + Plan note No data available for this section [facility] Evaluation note Diagnosis COPD mixed type (CMS/HCC)- [...] (BMI) of 40.0 to 44.9 in adult ([facility]) Tobacco dependence Tobacco use disorder Bilateral lower extremity edema Acute non-recurrent sinusitis of other sinus COPD mixed type (CMS/HCC) Open wound of second toe of left foot, initial encounter Open wound of left foot, initial encounter COPD mixed type (CMS/HCC)- Primary Tobacco dependence Tobacco use disorder BMI 40.0-44.9, adult ([facility]) Body mass index [BMI] 40.0-44.9, adult (Z68.41) Primary hypertension (CMS/HCC) Unspecified essential hypertension Bilateral lower extremity edema Edema of right lower extremity- Primary BMI 40.0-44.9, adult ([facility]) Shortness of breath COPD mixed type (CMS/HCC) Primary hypertension (CMS/HCC) Unspecified essential hypertension Bilateral lower extremity edema Bilateral lower extremity edema- Primary Primary hypertension (CMS/HCC) Unspecified essential hypertension COPD mixed type (CMS/HCC) Class 3 severe obesity due to excess calories without serious comorbidity with body mass index (BMI) of 40.0 to 44.9 in adult ([facility]) Tobacco dependence Tobacco use disorder Bilateral lower extremity edema- Primary Tobacco dependence Tobacco use disorder BMI 40.0-44.9, adult ([facility]) COPD mixed type (CMS/HCC) WINSOME (obstructive sleep apnea) Obstructive sleep apnea (adult) (pediatric) Encounter for subsequent annual wellness visit (AWV) in Medicare patient- Primary Edema of right lower extremity Anxiety and depression ([facility]) Tobacco dependence Tobacco use disorder BMI 40.0-44.9, adult ([facility]) Fibromyalgia Unspecified myalgia and myositis Primary hypertension ([facility]) Unspecified essential hypertension COPD mixed type ([facility]) Mixed hyperlipidemia ([facility]) Mixed hyperlipidemia documented in this encounter [facility] HealthcareEvaluation note* Diagnosis Primary hypertension ([facility])- Primary Unspecified essential hypertension Mixed hyperlipidemia ([facility]) Mixed hyperlipidemia Fibromyalgia Unspecified myalgia and myositis Migraine without aura and without status migrainosus, not intractable ([facility]) Class 3 severe obesity due to excess calories without serious comorbidity with body mass index (BMI) of 40.0 to 44.9 in adult ([facility]) Tobacco dependence Tobacco use disorder Bilateral lower extremity edema Acute non-recurrent sinusitis of other sinus COPD mixed type (CMS/HCC) Open wound of second toe of left foot, initial encounter Open wound of left foot, initial encounter COPD mixed type (CMS/HCC)- Primary Tobacco dependence Tobacco use disorder BMI 40.0-44.9, adult ([facility]) Body mass index [BMI] 40.0-44.9, adult (Z68.41) Primary hypertension (CMS/HCC) Unspecified essential hypertension Bilateral lower extremity edema Edema of right lower extremity- Primary BMI 40.0-44.9, adult ([facility]) Shortness of breath COPD mixed type (CMS/HCC) Primary hypertension (CMS/HCC) Unspecified essential hypertension Bilateral lower extremity edema Bilateral lower extremity edema- Primary Primary hypertension (CMS/[facility]) Unspecified essential hypertension COPD mixed type (CMS/HCC) Class 3 severe obesity due to excess calories without serious comorbidity with body mass index (BMI) of 40.0 to 44.9 in adult ([facility]) Tobacco dependence Tobacco use disorder Bilateral lower extremity edema- Primary Tobacco dependence Tobacco use disorder BMI 40.0-44.9, adult ([facility]) COPD mixed type ([facility]) WINSOME (obstructive sleep apnea) Obstructive sleep apnea (adult) (pediatric) Encounter for subsequent annual wellness visit (AWV) in Medicare patient- Primary Edema of right lower extremity Anxiety and depression ([facility]) Tobacco dependence Tobacco use disorder BMI 40.0-44.9, adult ([facility]) Fibromyalgia Unspecified myalgia and myositis Primary hypertension ([facility]) Unspecified essential hypertension COPD mixed type ([facility]) Fibromyalgia Unspecified myalgia and myositis documented in this encounter [facility]* Diagnosis Primary hypertension ([facility])- Primary Unspecified essential hypertension Mixed hyperlipidemia ([facility]) Mixed hyperlipidemia Fibromyalgia Unspecified myalgia and myositis Migraine without aura and without status migrainosus, not intractable ([facility]) Class 3 severe obesity due to excess calories without serious comorbidity with body mass index (BMI) of 40.0 to 44.9 in adult ([facility]) Tobacco dependence Tobacco use disorder Bilateral lower extremity edema Acute non-recurrent sinusitis of other sinus COPD mixed type (CMS/HCC) Open wound of second toe of left foot, initial encounter Open wound of left foot, initial encounter COPD mixed type ([facility]/HCC)- Primary Tobacco dependence Tobacco use disorder BMI 40.0-44.9, adult ([facility]) Body mass index [BMI] 40.0-44.9, adult (Z68.41) Primary hypertension (CMS/HCC) Unspecified essential hypertension Bilateral lower extremity edema Edema of right lower extremity- Primary BMI 40.0-44.9, adult ([facility]) Shortness of breath COPD mixed type (CMS/HCC) Primary hypertension (CMS/HCC) Unspecified essential hypertension Bilateral lower extremity edema Bilateral lower extremity edema- Primary Primary hypertension ([facility]) Unspecified essential hypertension COPD mixed type (CMS/[facility]) Class 3 severe obesity due to excess calories without serious comorbidity with body mass index (BMI) of 40.0 to 44.9 in adult ([facility]) Tobacco dependence Tobacco use disorder Bilateral lower extremity edema- Primary Tobacco dependence Tobacco use disorder BMI 40.0-44.9, adult ([facility]) COPD mixed type ([facility]) WINSOME (obstructive sleep apnea) Obstructive sleep apnea (adult) (pediatric) Encounter for subsequent annual wellness visit (AWV) in Medicare patient- Primary Edema of right lower extremity Anxiety and depression ([facility]) Tobacco dependence Tobacco use disorder BMI 40.0-44.9, adult ([facility]) Fibromyalgia Unspecified myalgia and myositis Primary hypertension ([facility]) Unspecified essential hypertension COPD mixed type ([facility]) WINSOME (obstructive sleep apnea)- Primary Obstructive sleep apnea (adult) (pediatric) COPD mixed type ([facility]) Primary hypertension ([facility]) Unspecified essential hypertension Fibromyalgia Unspecified myalgia and myositis BMI 40.0-44.9, adult ([facility]) Tobacco dependence Tobacco use disorder Mixed hyperlipidemia ([facility]) Mixed hyperlipidemia Vitamin D deficiency Vitamin B12 deficiency Other B-complex deficiencies COPD with acute exacerbation ([facility]) documented in this encounter [facility]* Diagnosis Fibromyalgia Unspecified myalgia and myositis Gastro-esophageal reflux disease without esophagitis documented in this encounter [facility]* Diagnosis Primary hypertension ([facility])- Primary Unspecified essential hypertension Mixed hyperlipidemia ([facility]) Mixed hyperlipidemia Fibromyalgia Unspecified myalgia and myositis Migraine without aura and without status migrainosus, not intractable ([facility]) Class 3 severe obesity due to excess calories without serious comorbidity with body mass index (BMI) of 40.0 to 44.9 in adult ([facility]) Tobacco dependence Tobacco use disorder Bilateral lower extremity edema Acute non-recurrent sinusitis of other sinus COPD mixed type ([facility]) Open wound of second toe of left foot, initial encounter Open wound of left foot, initial encounter COPD mixed type ([facility]/HCC)- Primary Tobacco dependence Tobacco use disorder BMI 40.0-44.9, adult ([facility]) Body mass index [BMI] 40.0-44.9, adult (Z68.41) Primary hypertension ([facility]) Unspecified essential hypertension Bilateral lower extremity edema Edema of right lower extremity- Primary BMI 40.0-44.9, adult ([facility]) Shortness of breath COPD mixed type ([facility]) Primary hypertension ([facility]) Unspecified essential hypertension Bilateral lower extremity edema Bilateral lower extremity edema- Primary Primary hypertension ([facility]) Unspecified essential hypertension COPD mixed type ([facility]) Class 3 severe obesity due to excess calories without serious comorbidity with body mass index (BMI) of 40.0 to 44.9 in adult ([facility]) Tobacco dependence Tobacco use disorder Bilateral lower extremity edema- Primary Tobacco dependence Tobacco use disorder BMI 40.0-44.9, adult ([facility]) COPD mixed type ([facility]) WINSOME (obstructive sleep apnea) Obstructive sleep apnea (adult) (pediatric) Encounter for subsequent annual wellness visit (AWV) in Medicare patient- Primary Edema of right lower extremity Anxiety and depression ([facility]) Tobacco dependence Tobacco use disorder BMI 40.0-44.9, adult ([facility]) Fibromyalgia Unspecified myalgia and myositis Primary hypertension ([facility]) Unspecified essential hypertension COPD mixed type ([facility]) WINSOME (obstructive sleep apnea)- Primary Obstructive sleep apnea (adult) (pediatric) COPD mixed type ([facility]) Primary hypertension ([facility]) Unspecified essential hypertension Fibromyalgia Unspecified myalgia and myositis BMI 40.0-44.9, adult ([facility]) Tobacco dependence Tobacco use disorder Mixed hyperlipidemia ([facility]) Mixed hyperlipidemia Vitamin D deficiency Vitamin B12 deficiency Other B-complex deficiencies COPD with acute exacerbation ([facility]) Fibromyalgia Unspecified myalgia and myositis documented in this encounter [facility]* Diagnosis Primary hypertension ([facility]/HCC)- Primary Unspecified essential hypertension Mixed hyperlipidemia ([facility]) Mixed hyperlipidemia Fibromyalgia Unspecified myalgia and myositis Migraine without aura and without status migrainosus, not intractable ([facility]) Class 3 severe obesity due to excess calories without serious comorbidity with body mass index (BMI) of 40.0 to 44.9 in adult ([facility]) Tobacco dependence Tobacco use disorder Bilateral lower extremity edema Acute non-recurrent sinusitis of other sinus COPD mixed type (CMS/HCC) Open wound of second toe of left foot, initial encounter Open wound of left foot, initial encounter COPD mixed type (CMS/HCC)- Primary Tobacco dependence Tobacco use disorder BMI 40.0-44.9, adult ([facility]) Body mass index [BMI] 40.0-44.9, adult (Z68.41) Primary hypertension ([facility]) Unspecified essential hypertension Bilateral lower extremity edema Edema of right lower extremity- Primary BMI 40.0-44.9, adult ([facility]) Shortness of breath COPD mixed type (CMS/HCC) Primary hypertension (CMS/HCC) Unspecified essential hypertension Bilateral lower extremity edema Bilateral lower extremity edema- Primary Primary hypertension ([facility]) Unspecified essential hypertension COPD mixed type (CMS/HCC) Class 3 severe obesity due to excess calories without serious comorbidity with body mass index (BMI) of 40.0 to 44.9 in adult ([facility]) Tobacco dependence Tobacco use disorder Bilateral lower extremity edema- Primary Tobacco dependence Tobacco use disorder BMI 40.0-44.9, adult ([facility]) COPD mixed type ([facility]) WINSOME (obstructive sleep apnea) Obstructive sleep apnea (adult) (pediatric) Encounter for subsequent annual wellness visit (AWV) in Medicare patient- Primary Edema of right lower extremity Anxiety and depression ([facility]) Tobacco dependence Tobacco use disorder BMI 40.0-44.9, adult ([facility]) Fibromyalgia Unspecified myalgia and myositis Primary hypertension ([facility]) Unspecified essential hypertension COPD mixed type ([facility]/HCC) WINSOME (obstructive sleep apnea)- Primary Obstructive sleep apnea (adult) (pediatric) COPD mixed type (CMS/HCC) Primary hypertension ([facility]) Unspecified essential hypertension Fibromyalgia Unspecified myalgia and myositis BMI 40.0-44.9, adult ([facility]) Tobacco dependence Tobacco use disorder Mixed hyperlipidemia ([facility]/HCC) Mixed hyperlipidemia Vitamin D deficiency Vitamin B12 deficiency Other B-complex deficiencies COPD with acute exacerbation ([facility]/HCC) COPD with acute exacerbation ([facility])- Primary Morbid (severe) obesity due to excess calories ([facility]) Body mass index (BMI) 40.0-44.9, adult ([facility]) WINSOME (obstructive sleep apnea) Obstructive sleep apnea (adult) (pediatric) COPD mixed type ([facility]) Gastroesophageal reflux disease, unspecified whether esophagitis present Tobacco dependence Tobacco use disorder Gastro-esophageal reflux disease without esophagitis Tremor Abnormal involuntary movements documented in this encounter [facility]* Diagnosis Primary hypertension ([facility])- Primary Unspecified essential hypertension Mixed hyperlipidemia ([facility]) Mixed hyperlipidemia Fibromyalgia Unspecified myalgia and myositis Migraine without aura and without status migrainosus, not intractable ([facility]) Class 3 severe obesity due to excess calories without serious comorbidity with body mass index (BMI) of 40.0 to 44.9 in adult ([facility]) Tobacco dependence Tobacco use disorder Bilateral lower extremity edema Acute non-recurrent sinusitis of other sinus COPD mixed type ([facility]) Open wound of second toe of left foot, initial encounter Open wound of left foot, initial encounter COPD mixed type ([facility])- Primary Tobacco dependence Tobacco use disorder BMI 40.0-44.9, adult ([facility]) Body mass index [BMI] 40.0-44.9, adult (Z68.41) Primary hypertension ([facility]) Unspecified essential hypertension Bilateral lower extremity edema Edema of right lower extremity- Primary BMI 40.0-44.9, adult ([facility]) Shortness of breath COPD mixed type ([facility]) Primary hypertension ([facility]) Unspecified essential hypertension Bilateral lower extremity edema Bilateral lower extremity edema- Primary Primary hypertension ([facility]) Unspecified essential hypertension COPD mixed type ([facility]) Class 3 severe obesity due to excess calories without serious comorbidity with body mass index (BMI) of 40.0 to 44.9 in adult ([facility]) Tobacco dependence Tobacco use disorder Bilateral lower extremity edema- Primary Tobacco dependence Tobacco use disorder BMI 40.0-44.9, adult ([facility]) COPD mixed type ([facility]) WINSOME (obstructive sleep apnea) Obstructive sleep apnea (adult) (pediatric) Encounter for subsequent annual wellness visit (AWV) in Medicare patient- Primary Edema of right lower extremity Anxiety and depression ([facility]) Tobacco dependence Tobacco use disorder BMI 40.0-44.9, adult ([facility]) Fibromyalgia Unspecified myalgia and myositis Primary hypertension ([facility]) Unspecified essential hypertension COPD mixed type ([facility]) WINSOME (obstructive sleep apnea)- Primary Obstructive sleep apnea (adult) (pediatric) COPD mixed type ([facility]/HCC) Primary hypertension ([facility]) Unspecified essential hypertension Fibromyalgia Unspecified myalgia and myositis BMI 40.0-44.9, adult ([facility]) Tobacco dependence Tobacco use disorder Mixed hyperlipidemia ([facility]) Mixed hyperlipidemia Vitamin D deficiency Vitamin B12 deficiency Other B-complex deficiencies COPD with acute exacerbation ([facility]) COPD with acute exacerbation ([facility])- Primary Morbid (severe) obesity due to excess calories ([facility]) Body mass index (BMI) 40.0-44.9, adult ([facility]) WINSOME (obstructive sleep apnea) Obstructive sleep apnea (adult) (pediatric) COPD mixed type ([facility]) Gastroesophageal reflux disease, unspecified whether esophagitis present Tobacco dependence Tobacco use disorder Gastro-esophageal reflux disease without esophagitis Tremor Abnormal involuntary movements Drug-induced Parkinson's disease ([facility])- Primary Secondary Parkinsonism Tremor Abnormal involuntary movements documented in this encounter [facility]* Diagnosis Primary hypertension ([facility])- Primary Unspecified essential hypertension Mixed hyperlipidemia ([facility]) Mixed hyperlipidemia Fibromyalgia Unspecified myalgia and myositis Migraine without aura and without status migrainosus, not intractable ([facility]) Class 3 severe obesity due to excess calories without serious comorbidity with body mass index (BMI) of 40.0 to 44.9 in adult ([facility]) Tobacco dependence Tobacco use disorder Bilateral lower extremity edema Acute non-recurrent sinusitis of other sinus COPD mixed type ([facility]) Open wound of second toe of left foot, initial encounter Open wound of left foot, initial encounter COPD mixed type ([facility])- Primary Tobacco dependence Tobacco use disorder BMI 40.0-44.9, adult ([facility]) Body mass index [BMI] 40.0-44.9, adult (Z68.41) Primary hypertension ([facility]) Unspecified essential hypertension Bilateral lower extremity edema Edema of right lower extremity- Primary BMI 40.0-44.9, adult ([facility]) Shortness of breath COPD mixed type ([facility]) Primary hypertension ([facility]) Unspecified essential hypertension Bilateral lower extremity edema Bilateral lower extremity edema- Primary Primary hypertension ([facility]) Unspecified essential hypertension COPD mixed type ([facility]) Class 3 severe obesity due to excess calories without serious comorbidity with body mass index (BMI) of 40.0 to 44.9 in adult ([facility]) Tobacco dependence Tobacco use disorder Bilateral lower extremity edema- Primary Tobacco dependence Tobacco use disorder BMI 40.0-44.9, adult ([facility]) COPD mixed type ([facility]) WINSOME (obstructive sleep apnea) Obstructive sleep apnea (adult) (pediatric) Encounter for subsequent annual wellness visit (AWV) in Medicare patient- Primary Edema of right lower extremity Anxiety and depression ([facility]) Tobacco dependence Tobacco use disorder BMI 40.0-44.9, adult ([facility]) Fibromyalgia Unspecified myalgia and myositis Primary hypertension ([facility]) Unspecified essential hypertension COPD mixed type ([facility]) WINSOME (obstructive sleep apnea)- Primary Obstructive sleep apnea (adult) (pediatric) COPD mixed type ([facility]) Primary hypertension ([facility]) Unspecified essential hypertension Fibromyalgia Unspecified myalgia and myositis BMI 40.0-44.9, adult ([facility]) Tobacco dependence Tobacco use disorder Mixed hyperlipidemia ([facility]) Mixed hyperlipidemia Vitamin D deficiency Vitamin B12 deficiency Other B-complex deficiencies COPD with acute exacerbation ([facility]) COPD with acute exacerbation ([facility])- Primary Morbid (severe) obesity due to excess calories ([facility]) Body mass index (BMI) 40.0-44.9, adult ([facility]) WINSOME (obstructive sleep apnea) Obstructive sleep apnea (adult) (pediatric) COPD mixed type ([facility]) Gastroesophageal reflux disease, unspecified whether esophagitis present Tobacco dependence Tobacco use disorder Gastro-esophageal reflux disease without esophagitis Tremor Abnormal involuntary movements Fibromyalgia Unspecified myalgia and myositis Localized edema Edema Mixed hyperlipidemia ([facility]) Mixed hyperlipidemia documented in this encounter [facility]Evaluation [facility]* Diagnosis Primary hypertension ([facility])- Primary Unspecified essential hypertension Mixed hyperlipidemia ([facility]) Mixed hyperlipidemia Fibromyalgia Unspecified myalgia and myositis Migraine without aura and without status migrainosus, not intractable ([facility]) Class 3 severe obesity due to excess calories without serious comorbidity with body mass index (BMI) of 40.0 to 44.9 in adult ([facility]) Tobacco dependence Tobacco use disorder Bilateral lower extremity edema Acute non-recurrent sinusitis of other sinus COPD mixed type ([facility]) Open wound of second toe of left foot, initial encounter Open wound of left foot, initial encounter COPD mixed type (CMS/HCC)- Primary Tobacco dependence Tobacco use disorder BMI 40.0-44.9, adult ([facility]) Body mass index [BMI] 40.0-44.9, adult (Z68.41) Primary hypertension ([facility]) Unspecified essential hypertension Bilateral lower extremity edema Edema of right lower extremity- Primary BMI 40.0-44.9, adult ([facility]) Shortness of breath COPD mixed type ([facility]) Primary hypertension ([facility]) Unspecified essential hypertension Bilateral lower extremity edema Bilateral lower extremity edema- Primary Primary hypertension ([facility]) Unspecified essential hypertension COPD mixed type ([facility]) Class 3 severe obesity due to excess calories without serious comorbidity with body mass index (BMI) of 40.0 to 44.9 in adult ([facility]) Tobacco dependence Tobacco use disorder Bilateral lower extremity edema- Primary Tobacco dependence Tobacco use disorder BMI 40.0-44.9, adult ([facility]) COPD mixed type ([facility]) WINSOME (obstructive sleep apnea) Obstructive sleep apnea (adult) (pediatric) Encounter for subsequent annual wellness visit (AWV) in Medicare patient- Primary Edema of right lower extremity Anxiety and depression ([facility]) Tobacco dependence Tobacco use disorder BMI 40.0-44.9, adult ([facility]) Fibromyalgia Unspecified myalgia and myositis Primary hypertension ([facility]) Unspecified essential hypertension COPD mixed type ([facility]) WINSOME (obstructive sleep apnea)- Primary Obstructive sleep apnea (adult) (pediatric) COPD mixed type ([facility]) Primary hypertension ([facility] Unspecified essential hypertension Fibromyalgia Unspecified myalgia and myositis BMI 40.0-44.9, adult ([facility]) Tobacco dependence Tobacco use disorder Mixed hyperlipidemia ([facility]) Mixed hyperlipidemia Vitamin D deficiency Vitamin B12 deficiency Other B-complex deficiencies COPD with acute exacerbation ([facility]) COPD with acute exacerbation ([facility])- Primary Morbid (severe) obesity due to excess calories ([facility]) Body mass index (BMI) 40.0-44.9, adult (CMS/HCC) WINSOME (obstructive sleep apnea) Obstructive sleep apnea (adult) (pediatric) COPD mixed type (CMS/HCC) Gastroesophageal reflux disease, unspecified whether esophagitis present Tobacco dependence Tobacco use disorder Gastro-esophageal reflux disease without esophagitis Tremor Abnormal involuntary movements Environmental and seasonal allergies- Primary COPD mixed type (CMS/HCC) documented in this encounter [facility] HealthcareEvaluation note* Diagnosis Primary hypertension (CMS/[facility])- Primary Unspecified essential hypertension Mixed hyperlipidemia (CMS/HCC) Mixed hyperlipidemia Fibromyalgia Unspecified myalgia and myositis Migraine without aura and without status migrainosus, not intractable (CMS/[facility]) Class 3 severe obesity due to excess [...] dependence Tobacco use disorder BMI 40.0-44.9, adult (CMS/[facility]) Body mass index [BMI] 40.0-44.9, adult (Z68.41) Primary hypertension (CMS/HCC) Unspecified essential hypertension Bilateral lower extremity edema Edema of right lower extremity- Primary BMI 40.0-44.9, adult (CMS/[facility]) Shortness of breath COPD mixed type (CMS/HCC) Primary hypertension (CMS/HCC) Unspecified essential hypertension Bilateral lower extremity edema Bilateral lower extremity edema- Primary Primary hypertension (CMS/[facility]) Unspecified essential hypertension COPD mixed type (CMS/HCC) Class 3 severe obesity due to excess calories without serious comorbidity with body mass index (BMI) of 40.0 to 44.9 in adult Tobacco dependence Tobacco use disorder Bilateral lower extremity edema- Primary Tobacco dependence Tobacco use disorder BMI 40.0-44.9, adult ([facility]) COPD mixed type (CMS/HCC) WINSOME (obstructive sleep apnea) Obstructive sleep apnea (adult) (pediatric) Encounter for subsequent annual wellness visit (AWV) in Medicare patient- Primary Edema of right lower extremity Anxiety and depression (CMS/[facility]) Tobacco dependence Tobacco use disorder BMI 40.0-44.9, adult ([facility]) Fibromyalgia Unspecified myalgia and myositis Primary hypertension (CMS/HCC) Unspecified essential hypertension COPD mixed type (CMS/HCC) WINSOME (obstructive sleep apnea)- Primary Obstructive sleep apnea (adult) (pediatric) COPD mixed type (CMS/HCC) Primary hypertension (CMS/HCC) Unspecified essential hypertension Fibromyalgia Unspecified myalgia and myositis BMI 40.0-44.9, adult ([facility]) Tobacco dependence Tobacco use disorder Mixed hyperlipidemia (CMS/HCC) Mixed hyperlipidemia Vitamin D deficiency Vitamin B12 deficiency Other B-complex deficiencies COPD with acute exacerbation (CMS/[facility]) COPD with acute exacerbation ([facility])- Primary Morbid (severe) obesity due to excess calories ([facility]) Body mass index (BMI) 40.0-44.9, adult ([facility]) WINSOME (obstructive sleep apnea) Obstructive sleep apnea (adult) (pediatric) COPD mixed type ([facility]) Gastroesophageal reflux disease, unspecified whether esophagitis present Tobacco dependence Tobacco use disorder Gastro-esophageal reflux disease without esophagitis Tremor Abnormal involuntary movements Fibromyalgia Unspecified myalgia and myositis documented in this encounter [facility] HealthcareEvaluation note* Diagnosis Primary hypertension ([facility])- Primary Unspecified essential hypertension Mixed hyperlipidemia ([facility]) Mixed hyperlipidemia Fibromyalgia Unspecified myalgia and myositis Migraine without aura and without status migrainosus, not intractable ([facility]) Class 3 severe obesity due to excess calories without serious comorbidity with body mass index (BMI) of 40.0 to 44.9 in adult Tobacco dependence Tobacco use disorder Bilateral lower extremity edema Acute non-recurrent sinusitis of other sinus COPD mixed type ([facility]) Open wound of second toe of left foot, initial encounter Open wound of left foot, initial encounter COPD mixed type ([facility]/HCC)- Primary Tobacco dependence Tobacco use disorder BMI 40.0-44.9, adult ([facility]) Body mass index [BMI] 40.0-44.9, adult (Z68.41) Primary hypertension ([facility]) Unspecified essential hypertension Bilateral lower extremity edema Edema of right lower extremity- Primary BMI 40.0-44.9, adult ([facility]) Shortness of breath COPD mixed type ([facility]/HCC) Primary hypertension ([facility]/HCC) Unspecified essential hypertension Bilateral lower extremity edema Bilateral lower extremity edema- Primary Primary hypertension ([facility]) Unspecified essential hypertension COPD mixed type ([facility]) Class 3 severe obesity due to excess calories without serious comorbidity with body mass index (BMI) of 40.0 to 44.9 in adult Tobacco dependence Tobacco use disorder Bilateral lower extremity edema- Primary Tobacco dependence Tobacco use disorder BMI 40.0-44.9, adult ([facility]) COPD mixed type (CMS/HCC) WINSOME (obstructive sleep apnea) Obstructive sleep apnea (adult) (pediatric) Encounter for subsequent annual wellness visit (AWV) in Medicare patient- Primary Edema of right lower extremity Anxiety and depression ([facility]) Tobacco dependence Tobacco use disorder BMI 40.0-44.9, adult ([facility]) Fibromyalgia Unspecified myalgia and myositis Primary hypertension ([facility]) Unspecified essential hypertension COPD mixed type ([facility]/HCC) WINSOME (obstructive sleep apnea)- Primary Obstructive sleep apnea (adult) (pediatric) COPD mixed type (CMS/HCC) Primary hypertension (CMS/[facility]) Unspecified essential hypertension Fibromyalgia Unspecified myalgia and myositis BMI 40.0-44.9, adult ([facility]) Tobacco dependence Tobacco use disorder Mixed hyperlipidemia ([facility]) Mixed hyperlipidemia Vitamin D deficiency Vitamin B12 deficiency Other B-complex deficiencies COPD with acute exacerbation ([facility]) COPD with acute exacerbation ([facility])- Primary Morbid (severe) obesity due to excess calories ([facility]) Body mass index (BMI) 40.0-44.9, adult ([facility]) WINSOME (obstructive sleep apnea) Obstructive sleep apnea (adult) (pediatric) COPD mixed type ([facility]) Gastroesophageal reflux disease, unspecified whether esophagitis present Tobacco dependence Tobacco use disorder Gastro-esophageal reflux disease without esophagitis Tremor Abnormal involuntary movements Mixed hyperlipidemia ([facility]) Mixed hyperlipidemia documented in this encounter [facility] HealthcareEvaluation note* Diagnosis Primary hypertension ([facility])- Primary Unspecified essential hypertension Mixed hyperlipidemia ([facility]) Mixed hyperlipidemia Fibromyalgia Unspecified myalgia and myositis Migraine without aura and without status migrainosus, not intractable ([facility]) Class 3 severe obesity due to excess calories without serious comorbidity with body mass index (BMI) of 40.0 to 44.9 in adult Tobacco dependence Tobacco use disorder Bilateral lower extremity edema Acute non-recurrent sinusitis of other sinus COPD mixed type ([facility]) Open wound of second toe of left foot, initial encounter Open wound of left foot, initial encounter COPD mixed type ([facility]/HCC)- Primary Tobacco dependence Tobacco use disorder BMI 40.0-44.9, adult ([facility]) Body mass index [BMI] 40.0-44.9, adult (Z68.41) Primary hypertension (CMS/HCC) Unspecified essential hypertension Bilateral lower extremity edema Edema of right lower extremity- Primary BMI 40.0-44.9, adult ([facility]) Shortness of breath COPD mixed type ([facility]) Primary hypertension (CMS/HCC) Unspecified essential hypertension Bilateral [...] dependence Tobacco use disorder BMI 40.0-44.9, adult ([facility]) COPD mixed type ([facility]) WINSOME (obstructive sleep apnea) Obstructive sleep apnea (adult) (pediatric) Encounter for subsequent annual wellness visit (AWV) in Medicare patient- Primary Edema of right lower extremity Anxiety and depression ([facility]) Tobacco dependence Tobacco use disorder BMI 40.0-44.9, adult ([facility]) Fibromyalgia Unspecified myalgia and myositis Primary hypertension ([facility]) Unspecified essential hypertension COPD mixed type ([facility]) WINSOME (obstructive sleep apnea)- Primary Obstructive sleep apnea (adult) (pediatric) COPD mixed type ([facility]) Primary hypertension ([facility]) Unspecified essential hypertension Fibromyalgia Unspecified myalgia and myositis BMI 40.0-44.9, adult ([facility]) Tobacco dependence Tobacco use disorder Mixed hyperlipidemia ([facility]) Mixed hyperlipidemia Vitamin D deficiency Vitamin B12 deficiency Other B-complex deficiencies COPD with acute exacerbation ([facility]) COPD with acute exacerbation ([facility])- Primary Morbid (severe) obesity due to excess calories ([facility]) Body mass index (BMI) 40.0-44.9, adult ([facility]) WINSOME (obstructive sleep apnea) Obstructive sleep apnea (adult) (pediatric) COPD mixed type ([facility]) Gastroesophageal reflux disease, unspecified whether esophagitis present Tobacco dependence Tobacco use disorder Gastro-esophageal reflux disease without esophagitis Tremor Abnormal involuntary movements Tobacco dependence- Primary Tobacco use disorder documented in this encounter [facility] HealthcareEvaluation note* Diagnosis Primary hypertension ([facility]/HCC)- Primary Unspecified essential hypertension Mixed hyperlipidemia (CMS/HCC) Mixed hyperlipidemia Fibromyalgia Unspecified myalgia and myositis Migraine without aura and without status migrainosus, not intractable (CMS/[facility]) Class 3 severe obesity due to excess [...] dependence Tobacco use disorder BMI 40.0-44.9, adult (CMS/[facility]) Body mass index [BMI] 40.0-44.9, adult (Z68.41) Primary hypertension (CMS/HCC) Unspecified essential hypertension Bilateral lower extremity edema Edema of right lower extremity- Primary BMI 40.0-44.9, adult ([facility]) Shortness of breath COPD mixed type ([facility]) Primary hypertension (CMS/HCC) Unspecified essential hypertension Bilateral [...] dependence Tobacco use disorder BMI 40.0-44.9, adult ([facility]) COPD mixed type (CMS/HCC) WINSOME (obstructive sleep apnea) Obstructive sleep apnea (adult) (pediatric) Encounter for subsequent annual wellness visit (AWV) in Medicare patient- Primary Edema of right lower extremity Anxiety and depression ([facility]) Tobacco dependence Tobacco use disorder BMI 40.0-44.9, adult ([facility]) Fibromyalgia Unspecified myalgia and myositis Primary hypertension (CMS/HCC) Unspecified essential hypertension COPD mixed type (CMS/HCC) WINSOME (obstructive sleep apnea)- Primary Obstructive sleep apnea (adult) (pediatric) COPD mixed type (CMS/HCC) Primary hypertension (CMS/HCC) Unspecified essential hypertension Fibromyalgia Unspecified myalgia and myositis BMI 40.0-44.9, adult ([facility]) Tobacco dependence Tobacco use disorder Mixed hyperlipidemia ([facility]/HCC) Mixed hyperlipidemia Vitamin D deficiency Vitamin B12 deficiency Other B-complex deficiencies COPD with acute exacerbation ([facility]) COPD with acute exacerbation ([facility])- Primary Morbid (severe) obesity due to excess calories ([facility]) Body mass index (BMI) 40.0-44.9, adult ([facility]) WINSOME (obstructive sleep apnea) Obstructive sleep apnea (adult) (pediatric) COPD mixed type ([facility]) Gastroesophageal reflux disease, unspecified whether esophagitis present Tobacco dependence Tobacco use disorder Gastro-esophageal reflux disease without esophagitis Tremor Abnormal involuntary movements Fibromyalgia Unspecified myalgia and myositis documented in this encounter [facility] HealthcareEvaluation note* Diagnosis Primary hypertension- Primary Unspecified essential hypertension Mixed hyperlipidemia Mixed hyperlipidemia Fibromyalgia Unspecified myalgia and myositis Migraine without aura and without status migrainosus, not intractable Class 3 severe obesity due to excess calories without serious comorbidity with body mass index (BMI) of 40.0 to 44.9 in adult [place] Tobacco dependence Tobacco use disorder Bilateral lower extremity edema Acute non-recurrent sinusitis of other sinus COPD mixed type ([facility]) Open wound of second toe of left foot, initial encounter Open wound of left foot, initial encounter COPD mixed type (HCC)- Primary Tobacco dependence Tobacco use disorder BMI 40.0-44.9, adult ([facility]) Body mass index [BMI] 40.0-44.9, adult (Z68.41) Primary hypertension Unspecified essential hypertension Bilateral lower extremity edema Edema of right lower extremity- Primary BMI 40.0-44.9, [place] Shortness of breath COPD mixed type ([facility]) Primary hypertension Unspecified essential hypertension Bilateral lower extremity edema Bilateral lower extremity edema- Primary Primary hypertension Unspecified essential hypertension COPD mixed type (HCC) Class 3 severe obesity due to excess calories without serious comorbidity with body mass index (BMI) of 40.0 to 44.9 in adult ([facility] Tobacco dependence Tobacco use disorder Bilateral lower extremity edema- Primary Tobacco dependence Tobacco use disorder BMI 40.0-44.9, adult [place] COPD mixed type (HCC) WINSOME (obstructive sleep apnea) Obstructive sleep apnea (adult) (pediatric) Encounter for subsequent annual wellness visit (AWV) in Medicare patient- Primary Edema of right lower extremity Anxiety and depression Tobacco dependence Tobacco use disorder BMI 40.0-44.9, adult [place] Fibromyalgia Unspecified myalgia and myositis Primary hypertension Unspecified essential hypertension COPD mixed type (HCC) WINSOME (obstructive sleep apnea)- Primary Obstructive sleep apnea (adult) (pediatric) COPD mixed type (HCC) Primary hypertension Unspecified essential hypertension Fibromyalgia Unspecified myalgia and myositis BMI 40.0-44.9, adult [place] Tobacco dependence Tobacco use disorder Mixed hyperlipidemia Mixed hyperlipidemia Vitamin D deficiency Vitamin B12 deficiency Other B-complex deficiencies COPD with acute exacerbation (HCC) COPD with acute exacerbation (HCC)- Primary Morbid (severe) obesity due to excess calories [place] Body mass index (BMI) 40.0-44.9, adult [place] WINSOME (obstructive sleep apnea) Obstructive sleep apnea (adult) (pediatric) COPD mixed type (HCC) Gastroesophageal reflux disease, unspecified whether esophagitis present Tobacco dependence Tobacco use disorder Gastro-esophageal reflux disease without esophagitis Tremor Abnormal involuntary movements Encounter for subsequent annual wellness visit (AWV) in Medicare patient- Primary Chronic kidney disease, stage 3a [place] WINSOME (obstructive sleep apnea) Obstructive sleep apnea [...] (BMI) of 40.0 to 44.9 in adult ([facility] Tobacco dependence Tobacco use disorder Bilateral lower extremity edema Acute non-recurrent sinusitis of other sinus COPD mixed type ([facility]) Open wound of second toe of left foot, initial encounter Open wound of left foot, initial encounter COPD mixed type (HCC)- Primary Tobacco dependence Tobacco use disorder BMI 40.0-44.9, adult [place] Body mass index [BMI] 40.0-44.9, adult (Z68.41) Primary hypertension Unspecified essential hypertension Bilateral lower extremity edema Edema of right lower extremity- Primary BMI 40.0-44.9, adult [place] Shortness of breath COPD mixed type ([facility]) Primary hypertension Unspecified essential hypertension Bilateral lower extremity edema Bilateral lower extremity edema- Primary Primary hypertension Unspecified essential hypertension COPD mixed type (HCC) Class 3 severe obesity due to excess calories without serious comorbidity with body mass index (BMI) of 40.0 to 44.9 in adult ([facility] Tobacco dependence Tobacco use disorder Bilateral lower extremity edema- Primary Tobacco dependence Tobacco use disorder BMI 40.0-44.9, adult [place] COPD mixed type ([facility]) WINSOME (obstructive sleep apnea) Obstructive sleep apnea (adult) (pediatric) Encounter for subsequent annual wellness visit (AWV) in Medicare patient- Primary Edema of right lower extremity Anxiety and depression Tobacco dependence Tobacco use disorder BMI 40.0-44.9, adult [place] Fibromyalgia Unspecified myalgia and myositis Primary hypertension Unspecified essential hypertension COPD mixed type (HCC) WINSOME (obstructive sleep apnea)- Primary Obstructive sleep apnea (adult) (pediatric) COPD mixed type ([facility]) Primary hypertension Unspecified essential hypertension Fibromyalgia Unspecified myalgia and myositis BMI 40.0-44.9, adult [place] Tobacco dependence Tobacco use disorder Mixed hyperlipidemia Mixed hyperlipidemia Vitamin D deficiency Vitamin B12 deficiency Other B-complex deficiencies COPD with acute exacerbation (HCC) COPD with acute exacerbation (HCC)- Primary Morbid (severe) obesity due to excess calories ([facility] Body mass index (BMI) 40.0-44.9, adult [place] WINSOME (obstructive sleep apnea) Obstructive sleep apnea (adult) (pediatric) COPD mixed type (HCC) Gastroesophageal reflux disease, unspecified whether esophagitis present Tobacco dependence Tobacco use disorder Gastro-esophageal reflux disease without esophagitis Tremor Abnormal involuntary movements Encounter for subsequent annual wellness visit (AWV) in Medicare patient- Primary Chronic kidney disease, stage 3a [place] WINSOME (obstructive sleep apnea) Obstructive sleep apnea [...] Tobacco use disorder documented in this encounter [facility] HealthcareEvaluation note* Diagnosis Primary hypertension- Primary Unspecified essential hypertension Mixed hyperlipidemia Mixed hyperlipidemia Fibromyalgia Unspecified myalgia and myositis Migraine without aura and without status migrainosus, not intractable Class 3 severe obesity due to excess calories without serious comorbidity with body mass index (BMI) of 40.0 to 44.9 in adult [place] Tobacco dependence Tobacco use disorder Bilateral lower extremity edema Acute non-recurrent sinusitis of other sinus COPD mixed type (HCC) Open wound of second toe of left foot, initial encounter Open wound of left foot, initial encounter COPD mixed type (HCC)- Primary Tobacco dependence Tobacco use disorder BMI 40.0-44.9, adult [place] Body mass index [BMI] 40.0-44.9, adult (Z68.41) Primary hypertension Unspecified essential hypertension Bilateral lower extremity edema Edema of right lower extremity- Primary BMI 40.0-44.9, adult [place] Shortness of breath COPD mixed type ([facility]) Primary hypertension Unspecified essential hypertension Bilateral lower extremity edema Bilateral lower extremity edema- Primary Primary hypertension Unspecified essential hypertension COPD mixed type (HCC) Class 3 severe obesity due to excess calories without serious comorbidity with body mass index (BMI) of 40.0 to 44.9 in adult ([facility] Tobacco dependence Tobacco use disorder Bilateral lower extremity edema- Primary Tobacco dependence Tobacco use disorder BMI 40.0-44.9, adult [place] COPD mixed type ([facility]) WINSOME (obstructive sleep apnea) Obstructive sleep apnea (adult) (pediatric) Encounter for subsequent annual wellness visit (AWV) in Medicare patient- Primary Edema of right lower extremity Anxiety and depression Tobacco dependence Tobacco use disorder BMI 40.0-44.9, adult [place] Fibromyalgia Unspecified myalgia and myositis Primary hypertension Unspecified essential hypertension COPD mixed type ([facility]) WINSOME (obstructive sleep apnea)- Primary Obstructive sleep apnea (adult) (pediatric) COPD mixed type ([facility]) Primary hypertension Unspecified essential hypertension Fibromyalgia Unspecified myalgia and myositis BMI 40.0-44.9, adult [place] Tobacco dependence Tobacco use disorder Mixed hyperlipidemia Mixed hyperlipidemia Vitamin D deficiency Vitamin B12 deficiency Other B-complex deficiencies COPD with acute exacerbation (HCC) COPD with acute exacerbation (HCC)- Primary Morbid (severe) obesity due to excess calories ([facility] Body mass index (BMI) 40.0-44.9, adult ([facility] WINSOME (obstructive sleep apnea) Obstructive sleep apnea (adult) (pediatric) COPD mixed type (HCC) Gastroesophageal reflux disease, unspecified whether esophagitis present Tobacco dependence Tobacco use disorder Gastro-esophageal reflux disease without esophagitis Tremor Abnormal involuntary movements Encounter for subsequent annual wellness visit (AWV) in Medicare patient- Primary Chronic kidney disease, stage 3a [place] WINSOME (obstructive sleep apnea) Obstructive sleep apnea [...] unspecified laterality- Primary documented in this encounter [facility] HealthcareEvaluation note* Diagnosis Primary hypertension- Primary Unspecified essential hypertension Mixed hyperlipidemia Mixed hyperlipidemia Fibromyalgia Unspecified myalgia and myositis Migraine without aura and without status migrainosus, not intractable Class 3 severe obesity due to excess calories without serious comorbidity with body mass index (BMI) of 40.0 to 44.9 in adult ([facility] Tobacco dependence Tobacco use disorder Bilateral lower extremity edema Acute non-recurrent sinusitis of other sinus COPD mixed type ([facility]) Open wound of second toe of left foot, initial encounter Open wound of left foot, initial encounter COPD mixed type (HCC)- Primary Tobacco dependence Tobacco use disorder BMI 40.0-44.9, adult [place] Body mass index [BMI] 40.0-44.9, adult (Z68.41) Primary hypertension Unspecified essential hypertension Bilateral lower extremity edema Edema of right lower extremity- Primary BMI 40.0-44.9, adult [place] Shortness of breath COPD mixed type ([facility]) Primary hypertension Unspecified essential hypertension Bilateral lower extremity edema Bilateral lower extremity edema- Primary Primary hypertension Unspecified essential hypertension COPD mixed type (HCC) Class 3 severe obesity due to excess calories without serious comorbidity with body mass index (BMI) of 40.0 to 44.9 in adult ([facility] Tobacco dependence Tobacco use disorder Bilateral lower extremity edema- Primary Tobacco dependence Tobacco use disorder BMI 40.0-44.9, adult [place] COPD mixed type ([facility]) WINSOME (obstructive sleep apnea) Obstructive sleep apnea (adult) (pediatric) Encounter for subsequent annual wellness visit (AWV) in Medicare patient- Primary Edema of right lower extremity Anxiety and depression Tobacco dependence Tobacco use disorder BMI 40.0-44.9, adult [place] Fibromyalgia Unspecified myalgia and myositis Primary hypertension Unspecified essential hypertension COPD mixed type (HCC) WINSOME (obstructive sleep apnea)- Primary Obstructive sleep apnea (adult) (pediatric) COPD mixed type (HCC) Primary hypertension Unspecified essential hypertension Fibromyalgia Unspecified myalgia and myositis BMI 40.0-44.9, adult [place] Tobacco dependence Tobacco use disorder Mixed hyperlipidemia Mixed hyperlipidemia Vitamin D deficiency Vitamin B12 deficiency Other B-complex deficiencies COPD with acute exacerbation ([facility]) COPD with acute exacerbation ([facility])- Primary Morbid (severe) obesity due to excess calories ([facility] Body mass index (BMI) 40.0-44.9, adult ([facility] WINSOME (obstructive sleep apnea) Obstructive sleep apnea (adult) (pediatric) COPD mixed type ([facility]) Gastroesophageal reflux disease, unspecified whether esophagitis present Tobacco dependence Tobacco use disorder Gastro-esophageal reflux disease without esophagitis Tremor Abnormal involuntary movements Encounter for subsequent annual wellness visit (AWV) in Medicare patient- Primary Chronic kidney disease, stage 3a ([facility] WINSOME (obstructive sleep apnea) Obstructive sleep apnea (adult) (pediatric) COPD mixed type ([facility]) Gastroesophageal reflux disease, unspecified whether esophagitis present [...] Tobacco use disorder documented in this encounter [facility] HealthcareEvaluation note* Diagnosis Primary hypertension- Primary Unspecified essential hypertension Mixed hyperlipidemia Mixed hyperlipidemia Fibromyalgia Unspecified myalgia and myositis Migraine without aura and without status migrainosus, not intractable Class 3 severe obesity due to excess calories without serious comorbidity with body mass index (BMI) of 40.0 to 44.9 in adult ([facility] Tobacco dependence Tobacco use disorder Bilateral lower extremity edema Acute non-recurrent sinusitis of other sinus COPD mixed type ([facility]) Open wound of second toe of left foot, initial encounter Open wound of left foot, initial encounter COPD mixed type (HCC)- Primary Tobacco dependence Tobacco use disorder BMI 40.0-44.9, adult ([facility] Body mass index [BMI] 40.0-44.9, adult (Z68.41) Primary hypertension Unspecified essential hypertension Bilateral lower extremity edema Edema of right lower extremity- Primary BMI 40.0-44.9, adult [place] Shortness of breath COPD mixed type ([facility]) Primary hypertension Unspecified essential hypertension Bilateral lower extremity edema Bilateral lower extremity edema- Primary Primary hypertension Unspecified essential hypertension COPD mixed type ([facility]) Class 3 severe obesity due to excess calories without serious comorbidity with body mass index (BMI) of 40.0 to 44.9 in adult ([facility] Tobacco dependence Tobacco use disorder Bilateral lower extremity edema- Primary Tobacco dependence Tobacco use disorder BMI 40.0-44.9, adult ([facility] COPD mixed type ([facility]) WINSOME (obstructive sleep apnea) Obstructive sleep apnea (adult) (pediatric) Encounter for subsequent annual wellness visit (AWV) in Medicare patient- Primary Edema of right lower extremity Anxiety and depression Tobacco dependence Tobacco use disorder BMI 40.0-44.9, adult ([facility] Fibromyalgia Unspecified myalgia and myositis Primary hypertension Unspecified essential hypertension COPD mixed type ([facility]) WINSOME (obstructive sleep apnea)- Primary Obstructive sleep apnea (adult) (pediatric) COPD mixed type ([facility]) Primary hypertension Unspecified essential hypertension Fibromyalgia Unspecified myalgia and myositis BMI 40.0-44.9, adult ([facility] Tobacco dependence Tobacco use disorder Mixed hyperlipidemia Mixed hyperlipidemia Vitamin D deficiency Vitamin B12 deficiency Other B-complex deficiencies COPD with acute exacerbation (HCC) COPD with acute exacerbation (HCC)- Primary Morbid (severe) obesity due to excess calories ([facility] Body mass index (BMI) 40.0-44.9, adult ([facility] WINSOME (obstructive sleep apnea) Obstructive sleep apnea (adult) (pediatric) COPD mixed type (HCC) Gastroesophageal reflux disease, unspecified whether esophagitis present Tobacco dependence Tobacco use disorder Gastro-esophageal reflux disease without esophagitis Tremor Abnormal involuntary movements Encounter for subsequent annual wellness visit (AWV) in Medicare patient- Primary Chronic kidney disease, stage 3a ([facility] WINSOME (obstructive sleep apnea) Obstructive sleep apnea [...] unspecified laterality- Primary documented in this encounter [facility] HealthcareEvaluation note* Diagnosis Primary hypertension- Primary Unspecified essential hypertension Mixed hyperlipidemia Mixed hyperlipidemia Fibromyalgia Unspecified myalgia and myositis Migraine without aura and without status migrainosus, not intractable Class 3 severe obesity due to excess calories without serious comorbidity with body mass index (BMI) of 40.0 to 44.9 in adult ([facility] Tobacco dependence Tobacco use disorder Bilateral lower extremity edema Acute non-recurrent sinusitis of other sinus COPD mixed type (HCC) Open wound of second toe of left foot, initial encounter Open wound of left foot, initial encounter COPD mixed type (HCC)- Primary Tobacco dependence Tobacco use disorder BMI 40.0-44.9, adult ([facility] Body mass index [BMI] 40.0-44.9, adult (Z68.41) Primary hypertension Unspecified essential hypertension Bilateral lower extremity edema Edema of right lower extremity- Primary BMI 40.0-44.9, adult ([facility] Shortness of breath COPD mixed type ([facility]) Primary hypertension Unspecified essential hypertension Bilateral lower extremity edema Bilateral lower extremity edema- Primary Primary hypertension Unspecified essential hypertension COPD mixed type (HCC) Class 3 severe obesity due to excess calories without serious comorbidity with body mass index (BMI) of 40.0 to 44.9 in adult ([facility] Tobacco dependence Tobacco use disorder Bilateral lower extremity edema- Primary Tobacco dependence Tobacco use disorder BMI 40.0-44.9, adult ([facility] COPD mixed type (HCC) WINSOME (obstructive sleep apnea) Obstructive sleep apnea (adult) (pediatric) Encounter for subsequent annual wellness visit (AWV) in Medicare patient- Primary Edema of right lower extremity Anxiety and depression Tobacco dependence Tobacco use disorder BMI 40.0-44.9, adult ([facility] Fibromyalgia Unspecified myalgia and myositis Primary hypertension Unspecified essential hypertension COPD mixed type (HCC) WINSOME (obstructive sleep apnea)- Primary Obstructive sleep apnea (adult) (pediatric) COPD mixed type (HCC) Primary hypertension Unspecified essential hypertension Fibromyalgia Unspecified myalgia and myositis BMI 40.0-44.9, adult ([facility] Tobacco dependence Tobacco use disorder Mixed hyperlipidemia Mixed hyperlipidemia Vitamin D deficiency Vitamin B12 deficiency Other B-complex deficiencies COPD with acute exacerbation (HCC) COPD with acute exacerbation (HCC)- Primary Morbid (severe) obesity due to excess calories ([facility] Body mass index (BMI) 40.0-44.9, adult ([facility] WINSOME (obstructive sleep apnea) Obstructive sleep apnea (adult) (pediatric) COPD mixed type (HCC) Gastroesophageal reflux disease, unspecified whether esophagitis present Tobacco dependence Tobacco use disorder Gastro-esophageal reflux disease without esophagitis Tremor Abnormal involuntary movements Encounter for subsequent annual wellness visit (AWV) in Medicare patient- Primary Chronic kidney disease, stage 3a ([facility] WINSOME (obstructive sleep apnea) Obstructive sleep apnea [...] edema Edema documented in this encounter [facility]* Diagnosis Onset Date Resolution Status Admit Date Bilateral lower extremity edema acute October 31, 2024 11:11am COPD mixed type acute October 31, 2024 11:11am Essential hypertension acute Se pt2024 11:11am Fibromyalgia acute October 312024 11:11am Morbid obesity due to excess calories acute October 31, 2024 11:11am [facility] Work Phone: Hospital Discharge instructions No data available for this section General Surgery [place] Progress note No data available for this section General Surgery [place] Reason for referral (narrative)No reason for referral information [facility] Work Phone: Reason for visit Narrative* Consultation (Routine) - Closed Specialty Diagnoses / Procedures Referred By Contac t Referred To Contact Neurology Diagnoses Tremor Procedures CO OFFICE/OUTPATIENT [facility] 60 MINUTES Jaymie Phoenix NP [address] [place] [address] Phone: tel: fax: Saumya Back DO [address] [place] [address] Phone: tel: fax: Referral ID Status Reason Start Date Expiration Date V isits Requested Visits Authorized [id number] Closed Specialty Services Required 02/10/2024 08/08/2024 1 1 [facility] Summary Purpose Family History No Family History Records FoundNo Family History Records FoundNo Family History Records FoundNo Family History Records FoundNo Family History Records Found Advance Directives Advance Directive Response Recorded Date/ Time Advance Directives No October 5:27pm Reason for Referral Specialty Diagnoses / Procedures Referred By Jose williamson Referred To Contact Radiology Diagnoses Edema of right lower extremity Procedures Vascular US lower extremity venous duplex right Jaymie Phoenix NP [address] [place] [address] Referral ID Status Reason Start Date Expiration Date V isits Requested Visits Authorized [id number] Authorized 03/25/2023 09/21/2023 1 1 Chief Complaint and Reason for Visit Chief Complaint Admit Date August 29, 2024 2:10 pm 2M October 31, 2024 11:11am Reason for Visit Admit Date Bilateral lower extremity edema Septembe r 2024 11:11am COPD mixed type October 31, 2024 11:11am Essential hypertension October 31, 2 025 11:11am Fibromyalgia October 31, 2024 11:11am Morbid obesity due to excess calories Se ptember 2024 11:11am Additional Source Comments INFORMATION SOURCE (unrecogn ized section and content) DATE CREATED AUTHOR 12/26/2021 [facility] dical Specialist DATE CREATED AUTHOR AUTHOR'S ORGANIZ ATION 03/25/2022 [facility] DATE CREATED AUTHOR AUTHOR'S ORGANIZ ATION 07/17/2022 [facility] DATE CREATED AUTHOR AUTHOR'S ORGANIZ ATION 08/31/2024 [facility] DATE CREATED AUTHOR AUTHOR'S ORGANIZ ATION 09/02/2024 [facility] dical Specialists EPIC Patient Care team informatio n (unrecognized section and content) Triage Clinician Relationship Specialty Start Date End Date Jaymie Phoenix NP [address] [place] [address] Nurse Practitioner Family Medicine 01/26/23 Triage Clinician Relationship Specialty Start Date End Date Shaikh Marquez MD [address] [place] [phone] PCP - General Internal Medicine 03/25/23 Jaymie Phoenix NP [address] [place] [address] Nurse Practitioner Family Medicine 01/26/23 Triage Clinician Relationship Specialty Start Date End Date Shaikh Marquez MD [address] [place] [address] PCP - General Internal Medicine 03/25/23 Jaymie Pheonix NP [address] [place] [address] Nurse Practitioner Family Medicine 01/26/23 Triage Clinician Relationship Specialty Start Date End Date Rohan Rodríguez MD [address] [place] [address] PCP - General Family Medicine 05/13/23 Jaymie Phoenix NP [address] [place] [address] Nurse Practitioner Family Medicine 01/26/23 Jaymie Phoenix NP [address] [place] [address] Nurse Practitioner Family Medicine 05/13/23 Triage Clinician Relationship Specialty Start Date End Date Rohan Rodríguez MD [address] [place] [address] PCP - General Family Medicine 05/13/23 Jaymie Phoenix NP [address] [place] [address] Nurse Practitioner Family Medicine 01/26/23 Jaymie Phoenix NP [address] [place] [address] Nurse Practitioner Family Medicine 05/13/23 Triage Clinician Relationship Specialty Start Date End Date Rohan Rodríguez MD [address] [place] [address] PCP - General Family Medicine 05/13/23 Jaymie Phoenix NP [address] [place] [address] Nurse Practitioner Family Medicine 01/26/23 Jaymie Phoenix NP [address] [place] [address] Nurse Practitioner Family Medicine 05/13/23 Triage Clinician Relationship Specialty Start Date End Date Rohan Rodríguez MD [address] [place] [address] PCP - General Family Medicine 05/13/23 Jaymie Phoenix NP [address] [place] [address] Nurse Practitioner Family Medicine 01/26/23 Jaymie Phoenix NP [address] [place] [address] Nurse Practitioner Family Medicine 05/13/23 Triage Clinician Relationship Specialty Start Date End Date Rohan Rodríguez MD [address] [place] [address] PCP - General Family Medicine 05/13/23 Jaymie Phoenix NP [address] [place] [address] Nurse Practitioner Family Medicine 01/26/23 Jaymie Phoenix NP [address] [place] [address] Nurse Practitioner Family Medicine 05/13/23 Triage Clinician Relationship Specialty Start Date End Date Rohan Rodríguez MD [address] [place] [address] PCP - General Family Medicine 05/13/23 Jaymie Phoenix NP [address] [place] [address] Nurse Practitioner Family Medicine 01/26/23 Jaymie Phoenix NP [address] [place] [address] Nurse Practitioner Family Medicine 05/13/23 Triage Clinician Relationship Specialty Start Date End Date Rohan Rodríguez MD [address] [place] [address] PCP - General Family Medicine 05/13/23 Jaymie Phoenix NP [address] [place] [address] Nurse Practitioner Family Medicine 01/26/23 Jaymie Phoenix NP [address] [place] [address] Nurse Practitioner Family Medicine 05/13/23 Triage Clinician Relationship Specialty Start Date End Date Rohan Rodríguez MD [address] [place] [address] PCP - General Family Medicine 05/13/23 Jaymie Phoenix NP [address] [place] [address] Nurse Practitioner Family Medicine 01/26/23 Jaymie Phoenix NP [address] [place] [address] Nurse Practitioner Family Medicine 05/13/23 Triage Clinician Relationship Specialty Start Date End Date Rohan Rodríguez MD [address] [place] [address] PCP - General Family Medicine 05/13/23 Jaymie Phoenix NP [address] [place] [address] Nurse Practitioner Family Medicine 01/26/23 Jaymie Phoenix NP [address] [place] [address] Nurse Practitioner Family Medicine 05/13/23 Triage Clinician Relationship Specialty Start Date End Date Rohan Rodríguez MD [address] [place] [address] PCP - General Family Medicine 05/13/23 Jaymie Phoenix NP [address] [place] [address] Nurse Practitioner Family Medicine 01/26/23 Jaymie Phoenix NP [address] [place] [address] Nurse Practitioner Family Medicine 05/13/23 Triage Clinician Relationship Specialty Start Date End Date Rohan Rodríguez MD [address] [place] [address] PCP - General Family Medicine 05/13/23 Jaymie Phoenix NP [address] [place] [address] Nurse Practitioner Family Medicine 01/26/23 Jaymie Phoenix NP [address] [place] [address] Nurse Practitioner Family Medicine 05/13/23 Triage Clinician Relationship Specialty Start Date End Date Rohan Rodríguez MD [address] [place] [address] PCP - General Family Medicine 05/13/23 Jaymie Phoenix NP [address] [place] [address] Nurse Practitioner Family Medicine 01/26/23 Jaymie Phoenix NP [address] [place] [address] Nurse Practitioner Family Medicine 05/13/23 Triage Clinician Relationship Specialty Start Date End Date Rohan Rodríguez MD [address] [place] [address] PCP - General Family Medicine 05/13/23 Jaymie Phoenix NP [address] [place] [address] Nurse Practitioner Family Medicine 01/26/23 Jaymie Phoenix NP [address] [place] [address] Nurse Practitioner Family Medicine 05/13/23 Triage Clinician Relationship Specialty Start Date End Date Rohan Rodríguez MD [address] [place] [address] PCP - General Family Medicine 05/13/23 Jaymie Phoenix NP [address] [place] [address] Nurse Practitioner Family Medicine 01/26/23 Jaymie Phoenix NP [address] [place] [address] Nurse Practitioner Family Medicine 05/13/23 Triage Clinician Relationship Specialty Start Date End Date Rohan Rodríguez MD [address] [place] [address] PCP - General Family Medicine 05/13/23 Jaymie Phoenix NP [address] [place] [address] Nurse Practitioner Family Medicine 01/26/23 Jaymie Phoenix NP [address] [place] [address] Nurse Practitioner Family Medicine 05/13/23 Triage Clinician Relationship Specialty Start Date End Date Rohan Rodríguez MD [address] [place] [address] PCP - General Family Medicine 05/13/23 Jaymie Phoenix NP [address] [place] [address] Nurse Practitioner Family Medicine 01/26/23 Jaymie Phoenix NP [address] [place] [address] Nurse Practitioner Family Medicine 05/13/23 Triage Clinician Relationship Specialty Start Date End Date Rohan Rodríguez MD [address] [place] [address] PCP - General Family Medicine 05/13/23 Jaymie Phoenix NP [address] [place] [address] Nurse Practitioner Family Medicine 01/26/23 Jaymie Phoenix NP [address] [place] [address] Nurse Practitioner Family Medicine 05/13/23 Triage Clinician Relationship Specialty Start Date End Date Rohan Rodríguez MD [address] [place] [address] PCP - General Family Medicine 05/13/23 Jaymie Phoenix NP [address] [place] [address] Nurse Practitioner Family Medicine 01/26/23 Jaymie Phoenix NP [address] [place] [address] Nurse Practitioner Family Medicine 05/13/23 Triage Clinician Relationship Specialty Start Date End Date Rohan Rodríguez MD [address] [place] [address] PCP - General Family Medicine 05/13/23 Jaymie Phoenix NP [address] [place] [address] Nurse Practitioner Family Medicine 01/26/23 Jaymie Phoenix NP [address] [place] [address] Nurse Practitioner Family Medicine 05/13/23 Triage Clinician Relationship Specialty Start Date End Date Rohan Rodríguez MD [address] [place] [address] PCP - General Family Medicine 05/13/23 Jaymie Phoenix NP [address] [place] [address] Nurse Practitioner Family Medicine 01/26/23 Jaymie Phoenix NP [address] [place] [address] Nurse Practitioner Family Medicine 05/13/23 Triage Clinician Relationship Specialty Start Date End Date Rohan Rodríguez MD [address] [place] [address] PCP - General Family Medicine 05/13/23 Jaymie Phoenix NP [address] [place] [address] Nurse Practitioner Family Medicine 01/26/23 Jaymie Phoenix NP [address] [place] [address] Nurse Practitioner Family Medicine 05/13/23 Triage Clinician Relationship Specialty Start Date End Date Rohan Rodríguez MD [address] [place] [address] PCP - General Family Medicine 05/13/23 Jaymie Phoenix NP [address] [place] [address] Nurse Practitioner Family Medicine 01/26/23 Jaymie Phoenix NP [address] [place] [address] Nurse Practitioner Family Medicine 05/13/23 Triage Clinician Relationship Specialty Start Date End Date Rohan Rodríguez MD [address] [place] [address] PCP - General Family Medicine 05/13/23 Jaymie Phoenix NP [address] [place] [address] Nurse Practitioner Family Medicine 01/26/23 Jaymie Phoenix NP [address] [place] [address] Nurse Practitioner Family Medicine 05/13/23 Triage Clinician Relationship Specialty Start Date End Date Rohan Rodríguez MD [address] [place] [address] PCP - General Family Medicine 05/13/23 Jaymie Phoenix NP [address] [place] [address] Nurse Practitioner Family Medicine 01/26/23 Jaymie Phoenix NP [address] [place] [address] Nurse Practitioner [facility] Medicine 05/13/23 Triage Clinician Relationship Specialty Start Date End Date Rohan Rodríguez MD [address] [place] [address] PCP - General Family Medicine 05/13/23 Jaymie Phoenix NP [address] [place] [address] Nurse Practitioner [facility] 01/26/23 Jaymie Phoenix NP [address] [place] [address] Nurse Practitioner [facility] 05/13/23 Team Status: Active Member Role Status Dates LUCILLE Ulloa Primary Care Provider Active Team Status: Active Member Role Status Dates LUCILLE Ulloa Primary Care Provider Active Start: August 29, 2024 Alphonse Damian MD Attending Provider Active Start: August 29, 2024 Team Status: Active Member Role Status Dates LUCILLE Ulloa Primary Care Provider Active Start: October 10, 2024 LUCILLE Ulloa Attending Provider Active Start: October 10, 2024 Team Status: Inactive Member Role Status Dates LUCILLE Ulloa Primary Care Provider Active Start: October 31, 2024 End: October 31, 2024 LUCILLE Ulloa Attending Provider Active Start: October 31, 2024 End: October 31, 2024 Reason for Visit (unrecogniz ed section and content) Reason Comments Med Refill Reason Comments Med Refill Reason Onset Date Comments Med Refill 06/14/2024 Reason Comments Medicare Annual Wellness Visit Initial Reason Comments Med Change Request Goals (unrecognized section and content) Goals may be documented in a n alternate section FOR RECORDS PERTAINING TO PATIENTS WHO ARE [...] BE BASED ON THE PRIMARY CLINICAL RECORDS. [facility] [employer] [facility]. provides no warranty or guarantee of the accuracy or completeness of information in this document.
--- NOTE | 2024-11-01 09:51 | PM.CN ---
Consult Note: HPI Data of Consult Patient: known to practice within the last 3 years Consult date: 10/04/24 Requesting Physician: Jenniffer Vazquez NP Primary Care Provider: Jaymie Phoenix NP Consult Narrative Reason for consult: low back pain and LLE pain Narrative: Gertrudis Gagnon a pleasant 59 year old female presents for evaluation of worsening low back and left leg pain, previous pt of Dr Guidry. pain increasing over the last 5 months, noting pain today 8/10 aching. pain increased with standing, walking, sitting, lying, stairs, bending, and sleep. pt utilizing pregabalin 100mg bid, flexeril 15mg TID PRN without side effects. since last visit has had severe LLE pain and tingling. recently underwent lumbar MRI with results below cc:: CC: Jenniffer Vazquez NP Review of Systems ROS Musculoskeletal Reports: back pain, extremity pain and joint pain PFSH PFS Medical History Tobacco abuse ?Z72.0 - Tobacco use (ICD-10) COPD (chronic obstructive pulmonary disease) ?J44.9 - Chronic obstructive pulmonary disease, unspecified (ICD-10) Anxiety ?F41.9 - Anxiety disorder, unspecified (ICD-10) Depression ?F32.A - Depression, unspecified (ICD-10) High cholesterol ?E78.00 - Pure hypercholesterolemia, unspecified (ICD-10) HTN (hypertension) ?I10 - Essential (primary) hypertension (ICD-10) Family History Other Family history not known due to adoption Social History Within the past year, how often did you have a drink containing alcohol: monthly or less Within the past year, how many standard drinks containing alcohol did you have on a typical day: 1 or 2 Total score: 0 Score interpretation: A score less than 3 is consistent with normal alcohol consumption. Smoking status: Current every day smoker Non-prescribed substance use: denies use Previous occupational history: retired Are you now , , , , never or living with a partner: In a typical week, how many times do you talk on the telephone with family, friends, or neighbors: 3 or more times per week How often do you get together with friends or relatives: 3 or more times per week Little interest or pleasure in doing things: not at all Feeling down, depressed, or hopeless: not at all Feel stressed/tense/nervous/anxious/difficulty sleeping: not at all Do you think of yourself as: straight/heterosexual Gender Identity: female Meds Home Medications and Allergies Home Medications ?Medication ?Instructions ?Recorded ?Confirmed ?Type albuterol sulfate 2.5 mg/3 mL 1.25 mg (1.5 mL) inhalation Q6H 12/24/23 06/28/24 Rx (0.083 %) solution for nebulization PRN shortness of breath or wheezing #90 mL amitriptyline 100 mg tablet 100 mg PO QPM 12/25/23 06/28/24 History lamotrigine 150 mg tablet 150 mg PO DAILY 12/25/23 06/28/24 History lamotrigine 200 mg tablet 200 mg PO QPM 12/25/23 06/28/24 History meloxicam 15 mg tablet 15 mg PO QAM 12/25/23 06/28/24 History Held on 12/28/23. Instructions: Resume on 01/04/24. hold while taking medrol dose pack omeprazole 40 mg capsule,delayed 40 mg PO DAILY 12/25/23 06/28/24 History release prazosin 2 mg capsule 2 mg PO QPM 12/25/23 06/28/24 History pregabalin 100 mg capsule 75 mg PO BID 12/25/23 09/14/24 History propranolol 40 mg tablet 40 mg PO BID 12/25/23 06/28/24 History quetiapine 100 mg tablet 300 mg PO DAILY 12/25/23 06/28/24 History spironolactone 50 mg tablet 50 mg PO QAM 12/25/23 06/28/24 History prazosin 1 mg capsule mg 06/28/24 History cariprazine 4.5 mg capsule 4.5 mg PO DAILY 09/14/24 09/14/24 History ([place]) cyclobenzaprine 10 mg tablet 10 mg PO TID PRN muscle spasm #90 09/14/24 Rx tabs simvastatin 40 mg tablet 40 mg PO DAILY 09/14/24 09/14/24 History Allergies Allergy/AdvReac Type Severity Reaction Status Date / Time prednisone Allergy Severe Anaphylaxis Verified 06/28/24 11:28 Penicillins AdvReac Severe Anaphylaxis Verified 06/28/24 11:28 Exam Constitutional Documenting provider has reviewed patient's vital signs: yes Common normals: no apparent distress, oriented x3, healthy appearing, alert and well nourished General appearance: cooperative HENMT Common normals: normocephalic, hearing grossly normal bilaterally and moist oral mucous membranes Head and scalp: normocephalic Eye Common normals: PERRL Pupil: PERRL Neck & C-Spine Common normals: full ROM General: normal visual inspection Chest Common normals: inspection of chest normal Respiratory Common normals: normal respiratory effort, no retractions and no use of accessory muscles Back & Pelvis Lumbar spine/lower back: pain with ROM, lumbar spinal tenderness and straight leg raise positive left Sacroiliac joints: SI joint(s) abnormal Other: decreased sensation left L4,5,S1 strength 4/5 in LLE and 5/5 in RLE left sij positive natasha(patricks), gaenslens, thigh thrust, compression test Neuro Common normals: oriented x3 Sensorium/orientation: alert Psych Common normals: mental status grossly normal, thought process normal, cooperative, affect normal, speech normal and activity/motor behavior normal Speech: normal speech Thought process: normal thought process Results Imaging Lumbar MRI: Attestation: I have reviewed the pertinent imaging results. Radiologist's impression: Lumbar vertebral heights, alignment unremarkable. Bone marrow signal is unremarkable with minimal endplate marrow changes L2-L3 appearing predominantly T2 hyperintense and T1 hypointense. Intermargin plate spurring notably L1-L4. Minimal anterolisthesis ascending L5-S1 and from L1 through L4. Conus medullaris service normally mid L2. Paraspinal soft tissues are unremarkable. T12-L1: Unremarkable. L1-2: Disc desiccation. No significant disc disease central canal or neural foramen narrowing identified. L2-3: Broad-based disc bulge with moderate facet arthropathy. Trace facet joint effusion. Mild left greater than right neural foramina narrowing. Canal is patent. L3-L4: Broad-based disc bulge with [id number] facet arthropathy. Moderate left neural from narrowing [id number] right neural from narrowing. L4-5: Disc desiccation with moderate facet arthropathy. Minimal endplate spurring extending both foramina regions causing mild right moderate left neural foraminal narrowing. L5-S1: Circumferential disc bulge with superimposed subarticular extrusion measuring 9 x 6 mm. This contacts the traversing left S1 nerve root. Otherwise mild left moderate moderate right-sided neural foraminal narrowing. Moderate facet arthropathy. Additional Findings Additional findings: If on a controlled substance or opioids, I have checked an [place] report on this patient and there are no aberrancies noted in the prescribing history.??If on a controlled substance or opioid a drug screen was completed and reviewed within the last year, and if there has not been a drug screen completed we ordered one today to monitor higher risk, state monitored pain medication use. As part of providing excellent, safe, comprehensive care, the following was completed at our patient's visit: 1. A medication reconciliation and review to ensure accurate knowledge of current/active medications, including asking our patients to inform us about any [id number] medications or herbal remedies/nutritional supplements/alternative remedies. 2. A review to specifically ensure our patients have had annual screening for screening for depression, screening for tobacco use, and screening for unhealthy alcohol use. For concerning screenings had a discussion with the patient, provided patient education, and recommended follow-up with primary care provider when appropriate. If patient noted with a risk of falling, they received education on strength, gait, and balance training to prevent future risk of falling. Portions of this note may have been carried over from the previous visit and updated as appropriate. Please note this office utilizes paper charting in addition to the electronic medical record. A list of current medications, vitals, and PMH is available there as the clinical staff outside of myself do not have access to [employer] charting during the clinic day operations. As part of providing quality comprehensive care the current medications, vitals, and PMH were reviewed in the paper chart. Assessment and Plan Assessment and Plan (1) Lumbar radiculopathy: Assessment and Plan: The patient has had over 3 months of moderate to severe low back and LLE pain with functional impairment and inadequate response to conservative care including NSAIDS (unless there are contraindication such as concurrent blood thinners), multiple oral or topical pain medications, and home exercise program/physical therapy.? Patient has completed >6 weeks of guided home exercise program and/or formal physical therapy program without relief of their symptoms.? I have reviewed the imaging of the lumbar spine and no red flags were identified.? The imaging reveals radiographic findings consistent with lumbar radiculopathy and lumbar stenosis with NC The Oswestry Disability Index was completed, and the patient scored a 40%.? ? (2) Lumbar stenosis with neurogenic claudication: (3) Sacroiliitis: (4) Myalgia, other site: (5) Degenerative disc disease (DDD) of lumbar region with axial back pain and referred sclerotomal pain: Plan lumbar MRI reviewed with pt, defer NS consultation at this time. trial left L4-5 L5-S1 TFESI under fluoroscopy for lumbar radiculopathy and lumbar stenosis with NC increase pregabalin 100mg TID decrease flexeril 10mg TID prn pain/spasms f/u 2 weeks after [facility]
== END 2024-11-01 09:24 | disposition home or self-care (01) ==
LOC: PM 09:24
PROVIDERS: PCP Nurse Practitioner; Visit Provider Nurse Practitioner
DX: M54.16 Radiculopathy, lumbar region (principal); M48.062 Spinal stenosis, lumbar region with neurogenic claudication; M79.18 Myalgia, other site; M51.362 Other intervertebral disc degeneration, lumbar region with discogenic back pain and lower extremity pain
CPT/HCPCS: G0463

== ENCOUNTER 2024-11-20 09:28 | Day surgery (SDC) | payer MEDICARE, SELFPAY ==
--- OUTSIDE RECORDS SUMMARY | 2024-11-20 09:36 | XMS_ITS | CCD ---
Author Organization [facility] Care Team Providers Care College Administrator Name Role Phone JAYMIE PHOENIX Primary Care Physician Bryson FERRER Attending Unavailable JAYMIE PHOENIX Referring Unavailabl e NABIL, Bryson Hernandez Attending Unavailable Aichholz, Tracy L Referring Unavailable NILL, rByson Hernandez Attending Unavailable NILL, Bryson Hernandez Attending Unavailable NILL, Bryson Hernandez Attending Unavailable AICHHOLZ, DRENCHER JAYMIE Primary Care Unavailable ALLAN ., DR JIM Mcdonnell Attending Unavailable ALLAN ., DR JIM Mcdonnell Admitting Unavailable ALLAN ., DR JIM Mcdonnell Consulting Unavailable ROBINSON ., GLENROY Admitting Unavailable ROBINSON .GLENROY Attending Unavailable SJ SOLER Consulting Unavailable AICHHOLZ, DRENCHER JAYMIE Primary Care Unavailable MENDEZ ., MR DEMETRIUS Admitting Unavailable MENDEZ ., MR DEMETRIUS Attending Unavailable AICHHOLZ, DRENCHER JAYMIE Primary Care Unavailable AICHHOLZ, DRENCHER JAYMIE Admitting Unavailable JUANITA, DR NADINE Caldwell Consulting Unavailable AICHHOLZ, DRENCHER JAYMIE Primary Care Unavailable AICHHOLZ, DRENCHER JAYMIE Attending Unavailable AICHHOLZ, DRENCHER JAYMIE Consulting Unavailable AICHHOLZ, DRENCHER JAYMIE Admitting Unavailable JUANITA, DR NADINE Caldwell Consulting Unavailable AICHHOLZ, DRENCHER JAYMIE Primary Care Unavailable AICHHOLZ, DRENCHER JAYMIE Attending Unavailable AICHHOLZ, DRENCHER JAYMIE Consulting Unavailable AICHHOLZ, DRENCHER JAYMIE Primary Care Unavailable NILL ., DR MASSEY Admitting Unavailable NILL ., DR MASSEY Attending Unavailable NILL ., DR MASSEY Consulting Unavailable SONDRA FELICIANO Consulting Unavailable ROBINSON ., GLENROY Admitting Unavailable ROBINSON ., GLENROY Attending Unavailable ROBINSON .GLENROY Consulting Unavailable AICHHOLZ, DRENCHER JAYMIE Primary Care Unavailable ALLAN ., DR JIM Mcdonnell Attending Unavailable ALLAN ., DR JIM Mcdonnell Consulting Unavailable ALLAN ., DR JIM Mcdonnell Admitting Unavailable AICHHOLZ, DRENCHER JAYMIE Primary Care Unavailable MARIA FERNANDA SOSA Consulting Unavailable ALLAN ., DR JIM Mcdonnell Attending Unavailable ALLAN ., DR JIM Mcdonnell Consulting Unavailable ALLAN ., DR JIM Mcdonnell Admitting Unavailable AICHHOLZ, DRENCHER JAYMIE Primary Care Unavailable ALLAN ., DR JIM Mcdonnell Admitting Unavailable ALLAN ., DR JIM Mcdonnell Attending Unavailable ALLAN ., DR JIM Mcdonnell Consulting Unavailable AICHHOLZ, DRENCHER JAYMIE Primary Care Unavailable ALLAN ., DR JIM Mcdonnell Admitting Unavailable ALLAN ., DR JIM Mcdonnell Attending Unavailable AICHHOLZ, DRENCHER JAYMIE Primary Care Unavailable THORNE ., JENNY Consulting Unavailable ALLAN ., DR JIM Mcdonnell Admitting Unavailable ALLAN ., DR JIM Mcdonnell Attending Unavailable ALLAN ., DR JIM Mcdonnell Consulting Unavailable AICHHOLZ, DRENCHER JAYMIE Primary Care Unavailable ALLAN ., DR JIM Mcdonnell Admitting Unavailable ALLAN ., DR JIM Mcdonnell Attending Unavailable ALLAN ., DR JIM Mcdonnell Consulting Unavailable AICHHOLZ, DRENCHER JAYMIE Primary Care Unavailable THORNE ., JENNY Consulting Unavailable ALLAN ., DR JIM Mcdonnell Admitting Unavailable ALLAN ., DR JIM Mcdonnell Attending Unavailable AICHHOLZ, DRENCHER JAYMIE Primary Care Unavailable ALLAN ., DR JIM Mcdonnell Attending Unavailable ALLAN ., DR JIM Mcdonnell Consulting Unavailable ALLAN ., DR JIM Mcdonnell Admitting Unavailable AICHHOLZ, DRENCHER JAYMIE Primary Care Unavailable LAKSHMIPATHY ., NARENDRANATH Consulting Evelyn vailable NILL ., DR MASSEY Consulting Unavailable NILL ., DR MASSEY Admitting Unavailable AICHHOLZ, DRENCHER JAYMIE Primary Care Unavailable NILL ., DR MASSEY Attending Unavailable AICHHOLZ, DRENCHER JAYMIE Admitting Unavailable AICHHOLZ, DRENCHER JAYMIE Attending Unavailable AICHHOLZ, DRENCHER JAYMIE Consulting Unavailable AICHHOLZ, DRENCHER JAYMIE Primary Care Unavailable CHET, DR MELISSA Hernandez Consulting Unavailable AICHHOLZ, DRENCHER JAYMIE Admitting Unavailable AICHHOLZ, DRENCHER JAYMIE Attending Unavailable AICHHOLZ, DRENCHER JAYMIE Consulting Unavailable AICHHOLZ, DRENCHER JAYMIE Primary Care Unavailable LORI FROST Consulting Unavailable ALLAN ., DR JIM Mcdonnell Attending Unavailable ALLAN ., DR JIM Mcdonnell Admitting Unavailable AICHHOLZ, DRENCHER JAYMIE Primary Care Unavailable AICHHOLZ, DRENCHER JAYMIE Primary Care Unavailable SAMSA ., MAGDALENA Admitting Unavailable SAMSA ., MAGDALENA Attending Unavailable SAMSA ., MAGDALENA Consulting Unavailable ALLAN ., DR JIM Mcdonnell Attending Unavailable ALLAN ., DR JIM Mcdonnell Admitting Unavailable ALLAN ., DR JIM Mcdonnell Consulting Unavailable AICHHOLZ, DRENCHER JAYMIE Primary Care Unavailable AICHHOLZ, DRENCHER JAYMIE Admitting Unavailable AICHHOLZ, DRENCHER JAYMIE Attending Unavailable AICHHOLZ, DRENCHER JAYMIE Consulting Unavailable AICHHOLZ, DRENCHER JAYMIE Primary Care Unavailable Aichholz HONE OPERATOR, Jaymie Unavailable Alma AMADOR, Primary Care Provider Aichholhomer HONE OPERATOR, Jaymie Unavailable Anne AMADOR, Rohan Primary Care Provider Aichholhomer HONE OPERATOR, Jaymie Unavailable Alphonse Damian Attending Unavailab Alphonse Todd Admitting Unavailab le Jaymie Phoenix Primary Care Unavailable SAUMYA BACK Attending Unavailable AICHHOLHomer, JAYMIE Referring Unavailable AICHHOLZ, JAYMIE Attending Unavailable NAT HENDERSON Attending Unavailable AICHHOLZ, JAYMIE Attending Unavailable AICHHOLZ, JAYMIE Attending Unavailable Aichholz HONE OPERATOR-C, Jaymie Danielle Primary Care Provider [phone] Alphonse Damian MD Attending Provider Alban HONE OPERATOR-CJaymie Attending Provider Allergies Allergy Classification Reported Allergen(s) Allergy Type Date of Onset Reaction(s) Facility (20 sources) Penicillins; Translations: [penicillins] Drug allergy 4 Dyspnea (finding), Weal (disorder), Hives, Shortness of breath, Swelling [facility] [place] (3 sources) predniSONE; Translations: [prednisone] Drug Allergy 5 Dyspnea (finding) [facility] [place] (1 source) prednisoLONE Drug Allergy [facility] Repository (20 sources) Prednisone Propensity to adverse reactions 3 Itching [facility] (1 source) Penicillin Drug Allergy 5 Hives [facility] Comment on above: shortness of breath Medications Current Medications Medication Drug Class(es) Dates Sig (Normalized) Sig (Original) acetaminophen 325 mg / HYDROcodone bitartrate 5 mg oral tablet (3 sources) Opioid Agonist Start: 08-29-2024 End: 09-08-2024 take 1 tablet by mouth once HYDROcodone-acetam inophen (Geff) 5-325 MG tablet Indications: Acute back pain [...] (20 sources) Corticosteroid, beta2-Adrenergic Agonist Start: 10-28-2024 Nfsfcvjxmo-Vekdbsvr-Maypwbbk ol (Breztri Aerosphere) 160-9-4.8 mcg/actuation HFA aerosol inhaler Active 2 INH INHALATION Twice daily October 28, 2024 12:00am Complies with drug therapy Start: 07-31-2024 End: 10-29-2024 take 2 puff(s) by inhalation in the morning, then take 2 puff(s) by inhalation at bedtime, then take 2 puff(s) by inhalation in the morning, then take 2 puff(s) by inhalation at bedtime Ajqgura-Klimbatbtwi-Ezznrtkvzk (Breztri Aerosphere) 160-9-4.8 MCG/ACT aerosol Indications: COPD [...] 01-26-2023 Episodic Other aftercare (1 source) Other retirement (current) drug therapy; Translations: [[facility]IOR [facility] CURRENT DRUG THERAPY] Onset: 02-27-2022 Episodic Other [...] rate/Area] 54 mL/min/{1.73_m2} Low >=60 mL/min/1.73m 2 [facility] Laboratory - Chemistry and C hemistry - challengeOrdered By: Jaymie Alban on 10-10-2024 Calcium [Mass/Vol] 8.9 mg/dL 8.5-10.1 [facility] Chloride [Moles/Vol] 101 mmol/L 98-107 [facility] CO2 [Moles/Vol] 29.5 mmol/L 21.0-32.0 [facility] Creatinine [Mass/Vol] 1.03 mg/dL High 0.55-1.02 [facility] GFR/1.73 sq M.predicted MDRD (S/P/Bld) [Vol rate/Area] mL/min/{1.73_m2} >=60 mL/min/1.73m 2 [facility] Glucose [Mass/Vol] 111 mg/dL High 74-106 [facility] Potassium [Moles/Vol] 4.1 mmol/L 3.5-5.1 [facility] Sodium [Moles/Vol] 139 mmol/L 136-145 [facility] Urea nitrogen [Mass/Vol] 19.0 mg/dL High 7.0-18.0 [facility] Urea nitrogen/Creatinine [Mass ratio] 18.4 mg/mg [facility] Serum or plasma anion gap de terminationOrdered By: Jaymie Phoenix on 10-10-2024 Anion gap [Moles/Vol] 12.6 mmol/L [facility] XR LUMBAR SPINE 6V W BENDING on 09-19-2024 [place] [address] XRay Report Signed Patient: FRANKY GAGNON I MR#: [id number] : 1965 Acct:[id number] Age/Sex: 59 / F ADM Date: 09/19/24 Loc: RAD Attending Dr: Estelle Vazquez NP Ordering Physician: Estelle Vazquez NP Date of Service: 09/19/24 Procedure(s): XR lumbar spine 6V w bending Accession Number(s): [id number] cc: Jaymie Phoenix NP; Estelle Vazquez NP [place] [id number] Patient Name: FRANKY GAGNON MRN: [id number] date: 1965 Sex: F Assigned Patient Location: [facility] Current Patient Location: [facility] Accession/Order Number: [id number] Exam Date: 09/19/2024 14:32 Report Date: 09/19/2024 [...] Jr., DMakayla 09/19/2024 2:33 PM Dictation Location: [place] [address] Electronically authenticated by: [id number] Y Date: 09/19/2024 14:33 Dictated By: Joaquin Chatman M.D. Signed By: 09/19/24 1436 DD/ 1433 TD/TT: Associate Dean Of Students: [facility] Radiology, Radiologist, - 09/19/2024 [place] [address] XRay Report Signed Patient: FRANKY GAGNON I MR#: [id number] : 1965 Acct:[id number] Age/Sex: 59 / F ADM Date: 09/19/24 Loc: [facility] Attending Dr: Estelle Vazquez NP Ordering Physician: Estelle Vazquez NP Date of Service: 09/19/24 Procedure(s): XR lumbar spine 6V w bending Accession Number(s): [id number] cc: Jaymie Phoenix NP; Estelle Vazquez NP [place] [address] Patient Name: FRANKY GAGNON MRN: [id number]:[id number] date: 1965 Sex: F Assigned Patient Location: [facility] Current Patient Location: [facility] Accession/Order Number: [id number] Exam Date: 09/19/2024 14:32 Report Date: 09/19/2024 [...] Jr., D.O. 09/19/2024 2:33 PM Dictation Location: [place] [address] Electronically authenticated by: [id number] Y Date: 09/19/2024 14:33 Dictated By: Joaquin Chatman M.D. Signed By: 09/19/24 143 DD/ 32 TD/TT: Associate Dean Of Students: [facility] Radiology Study observation (narrative) [facility] XR LUMBAR SPINE 6V W BENDING Ordered By: Radiologist Radiology on 09-19-2024 [facility] Work Phone: [facility] MICROALB CREAT RATIO RAN DOMon 01-27-2024 CREATININE URINE RANDOM 235.95 mg/dL 20.0 0 - 300.00 mg/dL [facility] MICROALBUMIN URINE RANDOM <1.3 NINF - 30.0 mg/dL [facility] ALL BASIC METABOLIC PANELon 01-24-2024 Anion gap [Moles/Vol] 11.6 mmol/L [facility] Calcium [Mass/Vol] 8.9 mg/dL 8.5 - 10. 1 mg/dL [facility] Chloride [Moles/Vol] 103 mmol/L 98 - 10 7 mmol/L [facility] CO2 [Moles/Vol] 31.6 mmol/L 21.0 - 32.0 mmol/L [facility] Creatinine [Mass/Vol] 1.17 mg/dL High 0.55 - 1.02 mg/dL [facility] GFR/1.73 sq M.predicted CKD-EPI (S/P/Bld) [Vol rate/Area] 57 Low >=60 mL/min/1.73m 2 [facility] Glucose [Mass/Vol] 118 mg/dL High 74 - 106 mg/dL [facility] Potassium [Moles/Vol] 4.2 mmol/L 3.5 - 5.1 mmol/L [facility] Sodium [Moles/Vol] 142 mmol/L 136 - 145 mmol/L [facility] EGFR-NON AF SAUDI ARABIAN 47 Low >=6 0 mL/min/1.73m 2 [facility] Urea nitrogen [Mass/Vol] 12 mg/dL 7.0 - 18.0 mg/dL [facility] Urea nitrogen/Creatinine [Mass ratio] 10.3 mg/mg [facility] ALL LIPID PROFILE (FASTING)o n 01-24-2024 CHOL HDL RATIO 2.9 [facility] Comment on above: 3.3 - 4.4 LOW RISK 4.4 - 7.1 AVERAGE RISK 7.1 - 11.0 MODERATE RISK >11.0 HIGH RISK Cholesterol [Mass/Vol] 152 mg/dL NINF - 200 mg/dL [facility] Cholesterol in HDL [Mass/Vol] 52 mg/dL 40 - 60 mg/dL [facility] Comment on above: > or =60 mg/dl - LOW CARDIOVASCULAR RISK <40 mg/dl - HIGH CARDIOVASCULAR RISK Magnesium [Mass/Vol] 70 mg/dL [facility] Comment on above: <100 mg/dl OPTIMAL 100-129 mg/dl NEAR OR ABOVE OPTIMAL 130-159 mg/dl BORDERLINE HIGH 160-189 mg/dl HIGH >190 mg/dl VERY HIGH Magnesium [Mass/Vol] 30.8 mg/dL [facility] Triglyceride [Mass/Vol] 154 mg/dL High NINF - 150 mg/dL [facility] No Panel Informationon 01-23 Interpretation and review of laboratory results Abnormal [facility] BLOOD GASES BTYon 07-08-2022 02 MODE ROOM AIR Normal [facility] Comment on above: Performed By: #### A BG ####[facility] [address] [place], [place] [address]Xf. Phani MUKHERJEE TEST Positive Normal [facility] Comment on above: Performed By: #### A BG ####[facility] [address] [place] [address]Dr. Phani El Base excess Calc (Bld) [Moles/Vol] 1.4 mmol/L Normal -2.0-2.0 [facility] Comment on above: Performed By: #### A BG ####[facility] [address] [place] [address]Dr. Phani El BIPAP PRESSURE Normal [facility] Comment on above: Performed By: #### A BG ####[facility] [address] [place] [address]Dr. Phani El CPAP Normal [facility] Comment on above: Performed By: #### A BG ####[facility] [address] [place], [place] [address]Dr. Phani El FIO2 Normal [facility] Comment on above: Performed By: #### A BG ####[facility] [address] [place], [place] [address]Dr. Phani El HCO3 (Bld) [Moles/Vol] 26.2 mmol/L Critically high 22.0-26 .0 [facility] Comment on above: Performed By: #### A BG ####[facility] [address] [place], [place] [address]Dr. Phani El LPM Normal [facility] Comment on above: Performed By: #### A BG ####[facility] [address] [place], [place] [address]Dr. Phani El MINUTE VOLUME Normal [facility] Comment on above: Performed By: #### A BG ####[facility] [address] [place], [place] [address]Dr. Phani El Oxygen (Bld) [Partial pressure] 56.1 mm[Hg] Critically low 80.0-100.0 [facility] Comment on above: Performed By: #### A BG ####[facility] [address] [place], [place] [address]Dr. Phani El Oxygen saturation in Blood 92.0 % Critically low 95.0-100.0 [facility] Comment on above: Performed By: #### A BG ####[facility] [address] [place] [address]Dr. Phani El PCO2 42.6 mmHg Normal 35.0-45.0 [facility] Comment on above: Performed By: #### A BG ####[facility] [address] [place] [address]Dr. Phain El PEEP [facility] Comment on above: Performed By: #### A BG ####[facility] [address] [place] [address]Dr. Phani El pH (Bld) 7.398 [pH] Normal 7.350-7.450 [facility] Comment on above: Performed By: #### A BG ####[facility] [address] [place] [address]Dr. Phani El PIP [facility] Comment on above: Performed By: #### A BG ####[facility] [address] [place], [place] [address]Dr. Phani El PS [facility] Comment on above: Performed By: #### A BG ####[facility] [address] [place], [place] [address]Dr. Phani El PUNCTURE SITE RR [facility] Comment on above: Performed By: #### A BG ####[facility] [address] [place] [address]Dr. Phani El RATE [facility] Comment on above: Performed By: #### A BG ####[facility] [address] [place], [place] [address]Dr. Phani El VENT MODE [facility] Comment on above: Performed By: #### A BG ####[facility] [address] [place], [place] [address]Dr. Phani El VT [facility] Comment on above: Performed By: #### A BG ####[facility] [address] [place], [place] [address]Dr. Phani El ECHOCARDIO M/2D COMPLETEon 0 07-08-2022 ECHOCARDIO M/2D COMPLETE Patient: FRANKY MORALES ICindy Exam Date: 07/08/2022 : 1965 Gender:F Ordering : DR. MAGDALENA DOWNING . Admission #: [id number] Family : MEREDITH PHOENIX [facility] Order #: [id number] CLICK HERE TO VIEW EXAM ECHOCARDIOGRAM REPORT [...] Garcia M.D. on 07/08/2022 at 18:[address] [facility] [address] LUNG CANCER SCREENINGon 0 05-29-2022 [...] by: MELISSA ROSENBERG Date: 2022-05-29 09:36 Normal [facility] CBC AUTO DIFFon 05-05-2022 BASO # 0.1 103/ul Normal 0.0-0.1 [facility] Comment on above: Performed By: #### C BC #### [facility] [address] [place] [address] Dr. Phani El Basophils/100 WBC (Bld) 0.8 % Normal 0.2-2.0 [facility] Comment on above: Performed By: #### C BC #### [facility] [address] [place] [address] Dr. Phani El EO # 0.1 103/ul Normal 0.0-0.7 [facility] Comment on above: Performed By: #### C BC #### [facility] [address] [place] [address] Dr. Phani El Eosinophils/100 WBC (Bld) 2.0 % Normal 0.9-7.0 [facility] Comment on above: Performed By: #### C BC #### [facility] [address] [place] [address] Dr. Phani El Erythrocyte distribution width (RBC) [Ratio] 14.0 % Normal 11.0-15.0 [facility] Comment on above: Performed By: #### C BC #### [facility] [address] [place] [address] Dr. Phani El Hematocrit (Bld) [Volume fraction] 48.7 % Critically high 36.0-48.0 [facility] Comment on above: Performed By: #### C BC #### [facility] [address] [place] [address] Dr. Phani El Hemoglobin (Bld) [Mass/Vol] 15.9 g/dL Normal 12.0-16.0 [facility] Comment on above: Performed By: #### C BC #### [facility] [address] [place] [address] Dr. Phani El IG # 0.05 10e3/ul Critically high 0.00-0.03 [facility] Comment on above: Performed By: #### C BC #### [facility] [address] [place] [address] Dr. Phani El IG % 0.8 % Critically high 0.0-0.5 [facility] Comment on above: Performed By: #### C BC #### [facility] [address] [place] [address] Dr. Phani El LYMPH # 1.9 103/ul Normal 1.2-3.8 [facility] Comment on above: Performed By: #### C BC #### [facility] [address] [place] [address] Dr. Phani El Lymphocytes/100 WBC (Bld) 30.1 % Normal 20.5-60.0 [facility] Comment on above: Performed By: #### C BC #### [facility] [address] [place] [address] Dr. Phani El MANUAL DIFF REQ NO Normal [facility] Comment on above: Performed By: #### C BC #### [facility] [address] [place] [address] [address] Phani El MCH (RBC) [Entitic mass] 32.9 pg Normal 26.7-34.0 [facility] Comment on above: Performed By: #### C BC #### [facility] [address] [place] [address] [address] Phani El MCHC (RBC) [Mass/Vol] 32.6 g/dL Normal 29.9-35.2 [facility] Comment on above: Performed By: #### C BC #### [facility] [address] [place] [address] [address] Phani El MCV (RBC) [Entitic vol] 100.8 fL Critically high 81.0-99 .0 [facility] Comment on above: Performed By: #### C BC #### [facility] [address] [place] [address] Dr. Phani El MONO # 0.5 103/ul Normal 0.3-0.8 [facility] Comment on above: Performed By: #### C BC #### [facility] [address] [place] [address] Dr. Phani El Monocytes/100 WBC (Bld) 7.2 % Normal 1.7-12.0 [facility] Comment on above: Performed By: #### C BC #### [facility] [address] [place] [address] Dr. Phani El NEUT # 3.8 103/ul Normal 1.4-6.5 [facility] Comment on above: Performed By: #### C BC #### [facility] [address] [place] [address] Dr. Phani El Neutrophils/100 WBC (Bld) 59.1 % Normal 43.0-75.0 [facility] Comment on above: Performed By: #### C BC #### [facility] [address] [place] [address] Dr. Phani El Platelet mean volume (Bld) [Entitic vol] 11.0 fL Normal 9.5-13.5 [facility] Comment on above: Performed By: #### C BC #### [facility] [address] [place] [address] [address] Phani El PLT 167 103/ul Normal 150-450 [facility] Comment on above: Performed By: #### C BC #### [facility] [address] [place] [address] [address] Phani El RBC 4.83 106/ul Normal 4.20-5.40 [facility] Comment on above: Performed By: #### C BC #### [facility] [address] [place] [address] [address] Phani El WBC 6.4 103/ul Normal 4.0-11.0 [facility] Comment on above: Performed By: #### C BC #### [facility] [address] [place] [address] [address] Phani El GLYCOHEMOGLOBIN A1Con 2022 ADA RECOMMENDATION SEE BELOW Normal [facility] Comment on above: Result Comment: ADA RECOMMENDED LIMIT 4.0 - 6.0 ADA THERAPEUTIC TARGET < 7.0 ACTION SUGGESTED > 7.0 Performed By: #### A 1C ####[facility] [address] [place] [address]Dr. Phani El Glucose [Mass/Vol] 114 mg/dL Normal [facility] Comment on above: Performed By: #### A 1C ####[facility] [address] [place] [id number]. Phani El HbA1c (Bld) [Mass fraction] 5.6 % Normal 4.5-6.2 [facility] Comment on above: Performed By: #### A 1C ####[facility] [address] [place] [address]Dr. Phani El LIPID PROFILEon 05-05-2022 CHOL-HDL RATIO NORM SEE BELOW Normal [facility] Comment on above: Result Comment: 3.3 - 4.4 LOW RISK 4.4 - 7.1 AVERAGE RISK 7.1 - 11.0 MODERATE RISK >11.0 HIGH RISK Performed By: #### C MP, LIPID #### [facility] [address] [place] [address] [address] Phani El Cholesterol [Mass/Vol] 178 mg/dL Normal <=200 [facility] Comment on above: Performed By: #### C MP, LIPID #### [facility] [address] [place], [place] [address] Dr. Phani El Cholesterol in HDL [Mass/Vol] 54 mg/dL Normal 40-60 [facility] Comment on above: Performed By: #### C MP, LIPID #### [facility] [address] [place] [address] [address] Phani El Cholesterol in LDL [Mass/Vol] 86.6 mg/dL Normal [facility] Comment on above: Performed By: #### C MP, LIPID #### [facility] [address] [place] [address] [address] Phani El Cholesterol.total/Choles terol in HDL [Mass ratio] 3.3 {ratio} Normal [facility] Comment on above: Performed By: #### C MP, LIPID #### [facility] [address] [place] [address] [address] Phani El HDL NORMAL > or = 60 mg/dl - LOW CARDIOVASCULAR RISK <40 mg/dl - HIGH CARDIOVASCULAR RISK Normal [facility] Comment on above: Performed By: #### C MP, LIPID #### [facility] [facility] [address] [address] [address] Phani El LDL CALC NORMAL SEE BELOW Normal [facility] Comment on above: Result Comment: <100 mg/dl OPTIMAL 100 - 129 mg/dl NEAR OR ABOVE OPTIMAL 130 - 159 mg/dl BORDERLINE HIGH 160 - 189 mg/dl HIGH >190 mg/dl VERY HIGH Performed By: #### C MP, LIPID #### [facility] [address] [address] [address] Phani El Triglyceride [Mass/Vol] 187 mg/dL Critically high <=150 [facility] Comment on above: Performed By: #### C MP, LIPID #### [facility] [address] [address] [address] Phani El VLDL CALC 37.4 mg/dL Normal [facility] Comment on above: Performed By: #### C MP, LIPID #### [facility] [address] [place], [place] [address] Dr. Phani El PROF 14(COMP METB)on 023 Albumin [Mass/Vol] 3.6 g/dL Normal 3.4-5.0 [facility] Comment on above: Performed By: #### C MP, LIPID ####[facility] [address] [id number] El Albumin/Globulin [Mass ratio] 1.1 {ratio} Normal [facility] Comment on above: Performed By: #### C MP, LIPID ####[facility] [address] [address]DrCindy El ALP [Catalytic activity/Vol] 91 U/L Normal 46-116 [facility] Comment on above: Performed By: #### C MP, LIPID ####[facility] [address] [address]Dr. Pahni El ALT [Catalytic activity/Vol] 34 U/L Normal 14-59 [facility] Comment on above: Performed By: #### C MP, LIPID ####[facility] [address] [id number] El Anion gap [Moles/Vol] 11.6 mmol/L Normal [facility] Comment on above: Performed By: #### C MP, LIPID ####[facility] [address] [id number]. Phani El AST [Catalytic activity/Vol] 18 U/L Normal 15-37 [facility] Comment on above: Performed By: #### C MP, LIPID ####[facility] [address] [id number]. Phani El Bilirubin [Mass/Vol] 0.6 mg/dL Normal 0.2-1.0 [facility] Comment on above: Performed By: #### C MP, LIPID ####[facility] [address] [id number]. Phani El Calcium [Mass/Vol] 9.2 mg/dL Normal 8.5-10.1 [facility] Comment on above: Performed By: #### C MP, LIPID ####[facility] [address] [address]Dr. Phani El Chloride [Moles/Vol] 106 mmol/L Normal 98-107 [facility] Comment on above: Performed By: #### C MP, LIPID ####[facility] [address] [address]Dr. Phani El CO2 [Moles/Vol] 32.3 mmol/L Critically high 21.0-32.0 [facility] Comment on above: Performed By: #### C MP, LIPID ####[facility] [address] [place], [place] [address]Dr. Phani El Creatinine [Mass/Vol] 1.04 mg/dL Critically high 0.55-1.02 [facility] Comment on above: Performed By: #### C MP, LIPID ####[facility] [address] [place], [place] [address]Dr. Phani El EGFR-AF SAUDI ARABIAN >60 Normal >=60 [facility] Comment on above: Performed By: #### C MP, LIPID ####[facility] [address] [place], [place] [address]Dr. Phani El EGFR-NON AF SAUDI ARABIAN 54 mL/min/1.73m2 Critically low >=60 [facility] Comment on above: Performed By: #### C MP, LIPID ####[facility] [address] [address]Dr. Phani El Globulin (S) [Mass/Vol] 3.4 g/dL Normal [facility] Comment on above: Performed By: #### C MP, LIPID ####[facility] [address] [place], [place] [address]Dr. Phani El Glucose [Mass/Vol] 124 mg/dL Critically high 74-106 [facility] Comment on above: Performed By: #### C MP, LIPID ####[facility] [address] [place], [place] [address]Dr. Phani lE Potassium [Moles/Vol] 3.9 mmol/L Normal 3.5-5.1 [facility] Comment on above: Performed By: #### C MP, LIPID ####[facility] [address] [address]Dr. Phani El Protein [Mass/Vol] 7.0 g/dL Normal 6.4-8.2 [facility] Comment on above: Performed By: #### C MP, LIPID ####[facility] [address] [address]Dr. Phani El Sodium [Moles/Vol] 146 mmol/L Critically high 136-145 [facility] Comment on above: Performed By: #### C MP, LIPID ####[facility] [address] [address]Dr. Phani El Urea nitrogen [Mass/Vol] 14.0 mg/dL Normal 7.0-18.0 [facility] Comment on above: Performed By: #### C MP, LIPID ####[facility] [address] [address]Dr. Phani El Urea nitrogen/Creatinine [Mass ratio] 13.5 mg/mg Normal [facility] Comment on above: Performed By: #### C MP, LIPID ####[facility] [address] [address]Dr. Phani El VITAMIN B12on 05-05-2022 Cobalamin (Vitamin B12) [Mass/Vol] 321.0 pg/mL Normal 193.0-986.0 [facility] Comment on above: Performed By: #### V ITAD, VITB12 #### [facility] [address] [address] [address] Phani El VITAMIN D 25 OHon 05-05-2022 VIT D 25-OH 58.7 ng/mL Normal [facility] Comment on above: Performed By: #### V ITAD, VITB12 #### [facility] [address] [address] [address] Phani El VIT D RANGES SEE BELOW Normal [facility] Comment on above: Result Comment: <20 ng/mL Vit D deficient 20 - <30 ng/mL Vit D insufficient 30 - 100 ng/mL Vit D sufficient >100 ng/mL Potential Toxicity Performed By: #### V ITAD, VITB12 #### [facility] [address] [address] [address] Phani El XR CHEST 2 Von [...] LORI FROST Date: 2022-05-05 10:05 Normal [facility] Ambulatory Visit Summaryon 0 03-24-2022 [...] B12 deficiency Vitamin D deficiency Normal [facility] General Surgery Office/Clini c Noteon 03-24-2022 [...] inactivated - Not Given Patient Refuses [facility] Comment on above: Result Comment: Elec tronically Signed By: NABIL AMADOR, Bryson Steinberg\Date and Time Signed: 03/24/22 13:12 EST Reminderson 03-24-2022 Reminders - From: Kristine Harrison LPN To: N - Clinical; Sent: 03/24/2022 13:05:34 EST Show up: 01/26/2032 07:00:00 EST Subject: colonoscopy recall Due Date/Time: 02/26/2032 07:00:00 EST Reminder/Recall Patient is due for screening colonoscopy 02/26/2032. [facility] Covid-19 PCR (CVDTBH)on 02-10 SARS-CoV-2 (COVID-19) RNA MARISOL+probe Ql (Unsp spec) Detected Abnormal NOT DETECTED [facility] Comment on above: Result Comment: This test is not yet approved or cleared by the [place] FDA. When there are no FDA-approved or cleared tests available, and other criteria are met, FDA can make tests available under an emergency access mechanism called an Emergency Use Authorization (EUA). The EUA for this test is supported by the [place] of Health and Human Service's (HHS's) declaration [...] used). Performed By: #### C VDTBH #### [facility] [address] [address] [address] Phani El INFLUENZA A AND B AGon 03-10 [facility] SEE BELOW Normal [facility] Comment on above: Result Comment: Nega tive for Flu A protein angiten. Infection due to Flu A cannot be ruled out. Flu A angiten in the sample may be below the detection limit of the test. Performed By: #### I NFLUAB ####[facility] [address] [address]Dr. Phani El INFLUBNEGH SEE BELOW Normal [facility] Comment on above: Result Comment: Nega tive for Flu B protein antigen. Infection due to Flu B cannot be ruled out. Flu B antigen in the sample may be below the detection limit of the test. Performed By: #### I NFLUAB ####[facility] [address] [address]Dr. Phani El INFLUENZA A AG Negative Normal NEGATIVE SEE COMMENT [facility] Comment on above: Performed By: #### I NFLUAB ####[facility] [address] [place], [place] [id number]. Phani El INFLUENZA B AG Negative Normal NEGATIVE SEE COMMENT [facility] Comment on above: Performed By: #### I NFLUAB ####[facility] [address] [address]DrCindy El Covid-19 PCR ([facility])on 02-09 SARS-CoV-2 (COVID-19) RNA MARISOL+probe Ql (Unsp spec) Detected Abnormal NOT DETECTED [facility] Comment on above: Result Comment: This test is not yet approved or cleared by the [place] FDA. When there are no FDA-approved or cleared tests available, and other criteria are met, FDA can make tests available under an emergency access mechanism called an Emergency Use Authorization (EUA). The EUA for this test is supported by the [place] of Health and Human Service's declaration that [...] longer be used). Performed By: #### C [facility] #### [facility] [address] [place] [address] Dr. Phani El Pathology Noteon 02-27-2022 Pathology Note [id number] #1.00CD:127 [facility] Outside Colonoscopyon 2022 Outside Colonoscopy [id number] #1.00CD:127 [facility] Reminderson 02-26-2022 Reminders - From: Kristine Harrison LPN To: Kristine Harrison LPN; Sent: 02/26/2022 11:14:25 EST Show up: 05/18/2022 07:00:00 EDT Subject: Ambulatory Reminder Due Date/Time: 05/27/2022 07:00:00 EDT Reminder/Recall log in to extra [facility] in [place] to keep account active Normal [facility] Lab Reportson 02-23-2022 Lab Reports [id number] #1.00CD:127 [facility] Covid-19 PCR (CVDTB)on 02-08 SARS-CoV-2 (COVID-19) RNA MARISOL+probe Ql (Unsp spec) Not detected Normal NOT DETECTED [facility] Comment on above: Result Comment: This test is not yet approved or cleared by the [place] FDA. When there are no FDA-approved or cleared tests available, and other criteria are met, FDA can make tests available under an emergency access mechanism called an Emergency Use Authorization (EUA). The EUA for this test is supported by the [place] of Health and Human Service's (HHS's) declaration [...] consistent with SARS-CoV-2. Performed By: #### C [facility] ####[facility] [address] [place], [place] [address]Ub. Phani El Pre-Certification Formon Pre-Certification Form [id number] [facility] [id number]#1.00CD:127 [facility] Consent for Procedure/Surger yon 02-05-2022 Consent for Procedure/Surgery [id number] #1.00CD:127 [facility] Formson 02-05-2022 Forms [id number] #1.00CD:127 [facility] Physician Referralon 022 Physician Referral [id number] #1.00CD:127 [facility] MRI Knee w/o Lefton 12-26-19 MRI [...] by Jason Sanchez on 12/25/2021 1505 Normal [facility] Specialist MRI [place] CONon 12-05-19 MRI [place] CON EXAMINATION: MRI [place] WO CON HISTORY: Low back pain COMPARISON: [...] by: NADINE GRANT Date: 2021-12-04 17:54 Normal [facility] XR LSPINE 2_3 VIEWSon 2021 XR [...] NADINE GRANT Date: 2021-09-30 07:20 Normal [facility] MRI Knee w/o Lefton 07-30-19 [...] Robby Diaz on 07/30/2021 1316 Normal [facility] Vital Signs Date Time Vital Sign Value Performing Clinician Nicolasa gardiner 10-31-2024 11:25-0400 Body height 165.1 cm Jaymie Phoenix HONE OPERATOR-C Work Phone: [facility] 10-31-2024 11:25-0400 Body mass index (BMI) [Ratio] 41.8 kg/m2 Jaymie Phoenix HONE OPERATOR-C Work Phone: [facility] 10-31-2024 11:25-0400 Body temperature 97.5 [degF] Jaymie Phoenix HONE OPERATOR-C Work Phone: [facility] 10-31-2024 11:25-0400 Body weight 114.07 kg Jaymie Phoenix HONE OPERATOR-C Work Phone: [facility] 10-31-2024 11:25-0400 Diastolic blood pressure 78 mm[Hg] Jaymiecaesar Phoenix HONE OPERATOR-C Work Phone: [facility] 10-31-2024 11:25-0400 Heart rate 87 /min Jaymiecaesar Phoenix HONE OPERATOR-C Work Phone: [facility] 10-31-2024 11:25-0400 Respiratory rate 22 /min Jaymiecaesar Phoenix HONE OPERATOR-C Work Phone: [facility] 10-31-2024 11:25-0400 SaO2% (BldA) [Mass fraction] 92 % Jaymiecaesar Phoenix HONE OPERATOR-C Work Phone: [facility] 10-31-2024 11:25-0400 Systolic blood pressure 110 mm[Hg] Jaymie Phoenix HONE OPERATOR-C Work Phone: [facility] 08-31-2024 13:00-0400 Body mass index (BMI) [Ratio] 40.77 kg/m2 Nat Beatriz DO Work Phone: [facility] 08-31-2024 13:00-0400 Body weight 111.13 kg Nat Beatriz DO Work Phone: [facility] 08-31-2024 13:00-0400 Diastolic blood pressure 64 mm[Hg] Nat Beatriz DO Work Phone: [facility] 08-31-2024 13:00-0400 Heart rate 86 /min Nat Beatriz DO Work Phone: [facility] 08-31-2024 13:00-0400 SaO2% (BldA) [Mass fraction] 94 % Nat Beatriz DO Work Phone: [facility] 08-31-2024 13:00-0400 Systolic blood pressure 110 mm[Hg] Nat Henderson DO Work Phone: [facility] 07-31-2024 10:09-0400 Body mass index (BMI) [Ratio] 40.9 kg/m2 Jaymie Phoenix HONE OPERATOR Work Phone: [facility] 07-31-2024 10:09-0400 Body temperature 98.1 [degF] Jaymie Castañedaaminaz HONE OPERATOR Work Phone: [facility] 07-31-2024 10:09-0400 Body weight 111.49 kg Jaymiecaesar Xavierholz HONE OPERATOR Work Phone: [facility] 07-31-2024 10:09-0400 Diastolic blood pressure 70 mm[Hg] Jaymie Xavierholz HONE OPERATOR Work Phone: [facility] 07-31-2024 10:09-0400 Heart rate 80 /min Jaymie Xaviersandraz HONE OPERATOR Work Phone: [facility] 07-31-2024 10:09-0400 Respiratory rate 24 /min Jaymie Ducholz HONE OPERATOR Work Phone: [facility] 07-31-2024 10:09-0400 SaO2% (BldA) [Mass fraction] 92 % Jaymiecaesar Francoisz HONE OPERATOR Work Phone: [facility] 07-31-2024 10:09-0400 Systolic blood pressure 104 mm[Hg] Jaymie Xaviersandraz HONE OPERATOR Work Phone: [facility] 03-14-2024 14:53-0500 Body mass index (BMI) [Ratio] 40.7 kg/m2 Christraymundoer Wong DO Work Phone: [facility] 03-14-2024 14:53-0500 Body weight 110.95 kg Christopher Wong DO Work Phone: [facility] 03-14-2024 14:53-0500 Diastolic blood pressure 82 mm[Hg] Mikieer Wong DO Work Phone: [facility] 03-14-2024 14:53-0500 Heart rate 76 /min Saumya Venturaett DO Work Phone: [facility] 03-14-2024 14:53-0500 SaO2% (BldA) [Mass fraction] 94 % Christraymundoer Wong DO Work Phone: [facility] 03-14-2024 14:53-0500 Systolic blood pressure 128 mm[Hg] Christmckayla Venturaett DO Work Phone: [facility] 02-10-2024 13:31-0500 Body height 165.1 cm Jaymie Aichholz HONE OPERATOR Work Phone: [facility] 02-10-2024 13:31-0500 Body mass index (BMI) [Ratio] 40.94 kg/m2 Jaymie Aichholz HONE OPERATOR Work Phone: [facility] 02-10-2024 13:31-0500 Body temperature 98.1 [degF] Jaymie Maddyhholz HONE OPERATOR Work Phone: [facility] 02-10-2024 13:31-0500 Body weight 111.58 kg Jaymie Aichholz HONE OPERATOR Work Phone: [facility] 02-10-2024 13:31-0500 Diastolic blood pressure 80 mm[Hg] Jaymie Aichholz HONE OPERATOR Work Phone: [facility] 02-10-2024 13:31-0500 Heart rate 87 /min Jaymie Aichholz HONE OPERATOR Work Phone: [facility] 02-10-2024 13:31-0500 Respiratory rate 18 /min Jaymie Aichholz HONE OPERATOR Work Phone: [facility] 02-10-2024 13:31-0500 SaO2% (BldA) [Mass fraction] 94 % Jaymie Aichholz HONE OPERATOR Work Phone: [facility] 02-10-2024 13:31-0500 Systolic blood pressure 110 mm[Hg] Jaymie Aichholz HONE OPERATOR Work Phone: [place] [address]-25-2024 10:30-0500 Body height 165.1 cm Jaymie Aichholz HONE OPERATOR Work Phone: [facility] 01-03-2024 10:30-0500 Body mass index (BMI) [Ratio] 40.6 kg/m2 Jaymie Aichholz HONE OPERATOR Work Phone: [facility] 01-03-2024 10:30-0500 Body temperature 98.1 [degF] Jaymie Aichholz HONE OPERATOR Work Phone: [facility] 01-03-2024 10:30-0500 Body weight 110.68 kg Jaymie Aichholz HONE OPERATOR Work Phone: [facility] 01-03-2024 10:30-0500 Diastolic blood pressure 86 mm[Hg] Jaymie Aichholz HONE OPERATOR Work Phone: [facility] 01-03-2024 10:30-0500 Heart rate 89 /min Jaymie Aichholz HONE OPERATOR Work Phone: [facility] 01-03-2024 10:30-0500 Respiratory rate 19 /min Jaymie Aichholz HONE OPERATOR Work Phone: [facility] 01-03-2024 10:30-0500 SaO2% (BldA) [Mass fraction] 91 % Jaymie Aichholz HONE OPERATOR Work Phone: [facility] 01-03-2024 10:30-0500 Systolic blood pressure 106 mm[Hg] Jaymie Aichholz HONE OPERATOR Work Phone: [facility] 03-25-2023 13:13-0500 Body height 165.1 cm Jaymie Aichholz HONE OPERATOR Work Phone: [facility] 03-25-2023 13:13-0500 Body mass index (BMI) [Ratio] 42.9 kg/m2 Jaymie Aichholz HONE OPERATOR Work Phone: [facility] 03-25-2023 13:13-0500 Body temperature 97.5 [degF] Jaymie Aichholz HONE OPERATOR Work Phone: [facility] 03-25-2023 13:13-0500 Body weight 116.94 kg Jaymie Aichholz HONE OPERATOR Work Phone: [facility] 03-25-2023 13:13-0500 Diastolic blood pressure 68 mm[Hg] Jaymie Aichholz HONE OPERATOR Work Phone: [facility] 03-25-2023 13:13-0500 Heart rate 71 /min Jaymie Aichholz HONE OPERATOR Work Phone: [facility] 03-25-2023 13:13-0500 Respiratory rate 20 /min Jaymie Aichholz HONE OPERATOR Work Phone: [facility] 03-25-2023 13:13-0500 SaO2% (BldA) [Mass fraction] 95 % Jaymie Aichholz HONE OPERATOR Work Phone: [facility] 03-25-2023 13:13-0500 Systolic blood pressure 108 mm[Hg] Jaymie Aichholz HONE OPERATOR Work Phone: [facility] 03-16-2023 13:35-0500 Body height 165.1 cm Jaymie Aichholz HONE OPERATOR Work Phone: [facility] 03-16-2023 13:35-0500 Body mass index (BMI) [Ratio] 41.6 kg/m2 Jaymie Aichholz HONE OPERATOR Work Phone: [facility] 03-16-2023 13:35-0500 Body temperature 98.4 [degF] Jaymie Maddyhholz HONE OPERATOR Work Phone: [facility] 03-16-2023 13:35-0500 Body weight 113.4 kg Jaymie Aichholz HONE OPERATOR Work Phone: [facility] 03-16-2023 13:35-0500 Diastolic blood pressure 72 mm[Hg] Jaymie Aichholz HONE OPERATOR Work Phone: [facility] 03-16-2023 13:35-0500 Heart rate 77 /min Jaymie Aichholz HONE OPERATOR Work Phone: [facility] 03-16-2023 13:35-0500 Respiratory rate 18 /min Jaymie Phoenix HONE OPERATOR Work Phone: [facility] 03-16-2023 13:35-0500 SaO2% (BldA) [Mass fraction] 95 % Jaymie Phoenix HONE OPERATOR Work Phone: [facility] 03-16-2023 13:35-0500 Systolic blood pressure 112 mm[Hg] Jaymie Phoenix HONE OPERATOR Work Phone: [facility] 02-03-2022 13:27-0500 Blood Pressure Location Bryson N[facility] [place] 02-03-2022 13:27-0500 Diastolic blood pressure 80 mm[Hg] Bryson NILL [facility] [place] 02-03-2022 13:27-0500 Heart rate 72 /min Bryson NILL [facility] [place] 02-03-2022 13:27-0500 Respiratory rate 16 /min Bryson NILL [facility] [place] 02-03-2022 13:27-0500 Systolic blood pressure 126 mm[Hg] Bryson NILL [facility] [place] Encounters Encounter Date Encounter Type Care Provider Facility Start: 10-31-2024 End: 10-31-2024 ambulatory Jaymie Phoenix NP-C Work Phone: [facility] Work Phone: Start: 10-31-2024 End: 10-31-2024 Patient encounter procedure Jaymie Phoenix HONE OPERATOR-C -[facility] Work Phone: Start: 10-28-2024 Patient encounter procedure Jaymie Phoenix HONE OPERATOR-C Work Phone: [facility] Start: 10-10-2024 Non-patient / Non-visit Jaymie kohler HONE OPERATOR-C -[facility] Work Phone: Start: 09-29-2024 End: 09-29-2024 Refill Jaymie Phoenix HONE OPERATOR Work Phone: [facility] Comment [...] Start: 08-29-2024 End: 08-29-2024 ambulatory Alphonse Damian Facility:[facility] Comment on above: Acute back pain with sciatica, unspecified laterality (Primary Dx) Start: 08-28-2024 End: 08-28-2024 Orders Only Jaymie Phoenix HONE OPERATOR Work Phone: [facility] Comment on above: Acute back pain with sciatica, unspecified laterality (Primary Dx) Start: 08-05-2024 End: 08-06-2024 Refill Jaymie Phoenix HONE OPERATOR Work Phone: [facility] Comment on above: Tobacco dependence Start: 07-31-2024 End: 07-31-2024 Patient encounter procedure Jaymie Aichholz HONE OPERATOR Work Phone: [facility] Comment on above: Encounter for subseq [...] Start: 07-05-2024 End: 07-05-2024 Refill Jaymie Aichholz HONE OPERATOR Work Phone: [facility] Comment on above: Fibromyalgia Start: 06-26-2024 End: 06-26-2024 Refill Jaymie Aichholz HONE OPERATOR Work Phone: [facility] Comment on above: Tobacco dependence ( Primary Dx) Start: 06-14-2024 End: 06-14-2024 Refill Jaymie Aichholz HONE OPERATOR Work Phone: [facility] Comment on above: Mixed hyperlipidemia (CMS/HCC) Start: 05-09-2024 End: 05-09-2024 Refill Jaymie Aichholz HONE OPERATOR Work Phone: [facility] Comment on above: Fibromyalgia Start: 04-19-2024 End: 04-19-2024 Refill Jaymie Aichholz HONE OPERATOR Work Phone: [facility] Comment on above: Environmental and se asonal allergies (Primary Dx); COPD mixed type (CMS/HCC) Start: 04-08-2024 End: 04-10-2024 Refill Jaymie Aichholz HONE OPERATOR Work Phone: [facility] Comment on above: Fibromyalgia; Localized edema; Mixed hyperlipidemia (CMS/HCC) Start: 03-14-2024 End: 03-14-2024 Office outpatient new 30 minutes Blaneraymundosindhu Wong DO Work Phone: [facility] Comment on above: 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); Tremor Start: 03-14-2024 End: 03-14-2024 ambulatory SAUMYA BACK Not Available Start: 03-14-2024 End: 03-14-2024 Bamboo flowsheet Saumya Back DO Work Phone: [facility] Start: 03-14-2024 End: 03-14-2024 Bamboo flowsheet Mikiesindhu Wong DO Work Phone: [facility] Start: 02-10-2024 End: 02-10-2024 Bamboo flowsheet Jaymie Phoenix HONE OPERATOR Work Phone: [facility] Start: 02-10-2024 End: 02-10-2024 Bamboo flowsheet Jaymiecaesar Phoenix HONE OPERATOR Work Phone: [facility] Start: 02-10-2024 End: 02-10-2024 ambulatory JAYMIE AICHHOLZ Not Available Start: 02-10-2024 End: 02-10-2024 Office outpatient visit 25 minutes Jaymie Phoenix HONE OPERATOR Work Phone: [facility] Comment on above: COPD with acute exac erbation ([facility]) (Primary Dx); Morbid (severe) obesity due to excess calories ([facility]); Body mass index (BMI) 40.0-44.9, adult ([facility]); WINSOME (obstructive sleep apnea); COPD mixed type ([facility]); Gastroesophageal reflux disease, unspecified whether esophagitis present; Tobacco dependence; Gastro-esophageal reflux disease without esophagitis; Tremor Start: 02-03-2024 End: 02-06-2024 Refill Jaymie Alban HONE OPERATOR Work Phone: [facility] Comment on above: Fibromyalgia Start: 01-27-2024 End: 01-27-2024 Clinisync Result Encounter Jaymie Alban HONE OPERATOR Work Phone: [facility] Unsolicited Start: 01-27-2024 End: 01-27-2024 Clinisync Result Encounter Jaymie Alban HONE OPERATOR Work Phone: [facility] Unsolicited Start: 01-24-2024 End: 01-24-2024 Clinisync Result Encounter Jaymie Alban HONE OPERATOR Work Phone: [facility] Unsolicited Start: 01-24-2024 End: 01-24-2024 Clinisync Result Encounter Jaymie Alban HONE OPERATOR Work Phone: [facility] Unsolicited Start: 01-03-2024 End: 01-03-2024 Bamboo flowsheet Jaymie Alban HONE OPERATOR Work Phone: [facility] Start: 01-03-2024 End: 01-03-2024 Bamboo flowsheet Jaymie Alban HONE OPERATOR Work Phone: [facility] Start: 01-03-2024 End: 01-03-2024 Office outpatient visit 25 minutes Jaymie Phoenix HONE OPERATOR Work Phone: [facility] Comment on above: WINSOME (obstructive sle ep apnea) (Primary Dx); COPD mixed type ([facility]); Primary hypertension ([facility]); Fibromyalgia; BMI 40.0-44.9, adult ([facility]); Tobacco dependence; Mixed hyperlipidemia ([facility]); Vitamin D deficiency; Vitamin B12 deficiency; COPD with acute exacerbation ([facility]) Start: 01-03-2024 End: 01-03-2024 ambulatory JAYMIE AICHHOLZ Not Available Start: 12-31-2023 End: 12-31-2023 Refill Jaymie Alessandroz HONE OPERATOR Work Phone: [facility] Start: 12-30-2023 End: 12-31-2023 Refill Jaymie Aichholz HONE OPERATOR Work Phone: [facility] Comment [...] Start: 11-24-2023 End: 11-24-2023 Refill Jaymiecaesar Phoenix HONE OPERATOR Work Phone: [facility] Comment on above: Mixed hyperlipidemia (CMS/HCC) Start: 10-26-2023 End: 10-26-2023 Refill Jaymie Alban HONE OPERATOR Work Phone: [facility] Comment on above: Fibromyalgia; Gastro-esophageal reflux disease without esophagitis Start: 06-03-2023 Patient encounter procedure Jaymie Phoenix HONE OPERATOR Work Phone: [facility] Start: 03-25-2023 Bamboo flowsheet Jaymie Phoenix HONE OPERATOR Work Phone: [facility] Start: 03-25-2023 Bamboo flowsheet Jaymiecaesar Phoenix HONE OPERATOR Work Phone: [facility] Start: 03-25-2023 End: 03-25-2023 Office outpatient visit 25 minutes Jaymie Phoenix HONE OPERATOR Work Phone: [facility] Comment on above: Edema of right lower extremity (Primary Dx); BMI 40.0-44.9, adult (CMS/HCC); Shortness of breath; COPD mixed type (CMS/HCC); Primary hypertension (CMS/HCC); Bilateral lower extremity edema Start: 03-16-2023 End: 03-16-2023 Office outpatient visit 25 minutes Jaymie Phoenix HONE OPERATOR Work Phone: [facility] Comment [...] Start: 03-24-2022 End: 03-25-2022 ambulatory Bryson FERRER Facility:[facility] ([facility]3] Start: 03-17-2022 ambulatory Bryson FERRER Facility :[facility] Start: 03-10-2022 End: 03-10-2022 ambulatory MEREDITH PHOENIX Facility:[facility] Start: 03-02-2022 Encounter for preprocedural laboratory examination DR JIM ALLAN . [facility] Start: 02-28-2022 End: 03-01-2022 Encounter for preprocedural laboratory examination MEREDITH JAYMIE MADDYNikkiMADAY Facility:[facility] Start: 02-28-2022 End: 03-01-2022 ambulatory MEREDITH CASTAÑEDANikkiMADAY Facility:[facility] Start: 02-25-2022 End: 02-26-2022 ambulatory Bryson FERRER Facility:CD:[id number] Start: 02-21-2022 End: 02-22-[address] BRYSON FERRER . Facility:[facility] Start: 02-06-2022 End: 02-07-2022 ambulatory JENNY THORNE . Facility:[facility] Start: 02-03-2022 End: 02-04-2022 ambulatory Tracy Phoenix Facility:[facility] ([facility]3] Start: 02-03-2022 End: 02-03-2022 Patient encounter procedure [...] Data Provider Start: 02-10-2024 Mammography Jaymie kohler HONE OPERATOR Work Phone: Start: 01-27-2024 [facility] MICROALB CREAT R ATIO RANDOM aJymie Phoenix HONE OPERATOR Work Phone: Start: 01-24-2024 ALL BASIC METABOLIC PANEL Jaymie Phoenix HONE OPERATOR Work Phone: Start: 01-24-2024 ALL LIPID PROFILE (FASTING) Jaymie Phoenix HONE OPERATOR Work Phone: Start: 12-25-2023 BLOOD CULTURE 2 Generic External Data Provider Start: 12-25-2023 BLOOD CULTURE 1 Generic External Data Provider Start: 12-24-2023 BLOOD CULTURE 2 Generic External Data Provider Start: 12-24-2023 BLOOD CULTURE 1 Generic External Data Provider Start: 03-25-2023 Mammography Jaymie Danette kohler HONE OPERATOR Work Phone: Start: 02-25-2022 Colonoscopy Jaymie Danette kohler HONE OPERATOR Work Phone: section Bryson Saldaña Ligation [...] [facility] [address] [place] [phone] Jaymie Phoenix, NILE [address] [place] [phone] [facility] Start: 07-31-2025 Medicare Annual [...] [facility] [address] [place] [phone] Jaymie Phoenix, NILE [address] [place] [phone] [facility] Start: 08-31-2024 End: 08-31-2024 Patient encounter procedure 08/31/2024 1:00 PM EDT Consult [facility] [address] [place] [phone] Nat Henderson DO [address] [place] [address] [facility] Start: 07-31-2024 End: 07-31-2025 CT Chest for screening WO contrast CT lung screening low dose Imaging Routine Tobacco dependence Expected: 07/31/2024, Expires: 07/31/2025 [facility] Work Phone: Comment on above: Expected: 07/31/2024 , Expires: 07/31/2025 Start: 07-31-2024 End: 07-31-2024 Patient encounter procedure 07/31/2024 10:30 AM EDT Office Visit [facility] [address] [place] [phone] Jaymie Phoenix NP [address] [place] [phone] [facility] Start: 06-14-2024 Influenza vaccination Influenza Vacc ine (#1) [facility] Comment on above: Postponed from 10/09 (Patient Refused) Start: 06-05-2024 End: 06-05-2024 Patient encounter procedure 06/05/2024 3:40 PM EDT Office Visit [facility] [address] [place] [address] Sherice Tristan NP [address] [place] [phone] [facility] Start: 06-02-2024 Medicare Annual Well ness (AWV) Medicare Annual Wellness (AWV) [facility] Start: 05-10-2024 End: 05-10-2024 Patient encounter procedure 05/10/2024 2:00 PM EDT Office Visit [facility] [address] [place] [address] Jaymie Phoenix, NILE [address] [place] [phone] [facility] Start: 04-06-2024 Influenza vaccination Influenza Vacc ine (#1) [facility] Comment on above: Postponed from 10/09 (Patient Refused) Start: 03-25-2024 Screening for malign ant neoplasm of breast Mammogram [facility] Start: 03-14-2024 End: 03-14-2024 Patient encounter procedure 03/14/2024 3:00 PM EST Office Visit [facility] [address] [place] [phone] Saumya Back DO [address] [place] [phone] Tremor [facility] Comment on above: Tremor Start: 01-26-2024 End: 01-26-2024 Patient encounter procedure 01/26/2024 10:30 AM EST Office Visit [facility] [address] [place] [address] Jaymie Phoenix, NILE [address] [place] [phone] [facility] Start: 01-03-2024 End: 01-02-2025 25-hydroxyvitamin D3 [Mass/volume] in Serum or Plasma Vitamin D 25 hydroxy Lab Routine Vitamin D deficiency Expected: 01/03/2024 (Approximate), Expires: 01/02/2025 [facility] Comment on above: Expected: 01/03/2024 (Approximate), Expires: 01/02/2025 Start: 01-03-2024 End: 01-02-2025 Basic metabolic 1998 panel - Serum or Plasma Basic metabolic panel Lab Routine Primary hypertension (CMS/HCC) Expected: 01/03/2024 (Approximate), Expires: 01/02/2025 [facility] Comment on above: Expected: 01/03/2024 (Approximate), Expires: 01/02/2025 Start: 01-03-2024 End: 01-02-2025 Cobalamin (Vitamin B12) [Mass/volume] in Serum or Plasma Vitamin B12 Lab Routine Vitamin B12 deficiency Expected: 01/03/2024 (Approximate), Expires: 01/02/2025 [facility] Comment on above: Expected: 01/03/2024 (Approximate), Expires: 01/02/2025 Start: 01-03-2024 End: 01-02-2025 Lipid 1996 panel - Serum or Plasma Lipid panel Lab Routine Mixed hyperlipidemia (CMS/HCC) Expected: 01/03/2024 (Approximate), Expires: 01/02/2025 [facility] Comment on above: Expected: 01/03/2024 (Approximate), Expires: 01/02/2025 Start: 01-03-2024 End: 01-02-2025 Microalbumin/Creatinine panel in random Urine Microalbumin / creatinine, urine ratio Lab Routine Primary hypertension (CMS/HCC) Tobacco dependence Expected: 01/03/2024 (Approximate), Expires: 01/02/2025 [facility] Work Phone: Comment on above: Expected: 01/03/2024 (Approximate), Expires: 01/02/2025 Start: 01-03-2024 End: 01-02-2025 Urinalysis complete panel - Urine Urinalysis with reflex microscopic (clean catch) Lab Routine Primary hypertension (CMS/HCC) Tobacco dependence Expected: 01/03/2024 (Approximate), Expires: 01/02/2025 [facility] Comment on above: Expected: 01/03/2024 (Approximate), Expires: 01/02/2025 Start: 01-03-2024 End: 01-03-2024 Patient encounter procedure [facility] Comment on above: WINSOME (obstructive sle ep apnea) (Primary Dx); COPD mixed type (CMS/HCC); Primary hypertension (CMS/HCC); Fibromyalgia; BMI 40.0-44.9, adult (CMS/HCC); Tobacco dependence; Mixed hyperlipidemia (CMS/HCC); Vitamin D deficiency; Vitamin B12 deficiency Start: 10-10-2023 Influenza vaccination Influenza Vacc ine (#1) [facility] Start: 08-08-2023 Influenza vaccination Influenza Vacc ine (#1) [facility] Comment on above: Postponed from 10/09 (Patient Refused) Start: 04-06-2023 End: 04-06-2023 Patient encounter procedure 04/06/2023 1:40 PM EST Office Visit [facility] [address] [place] [phone] Jaymie Phoenix, NILE [address] [place] [address] [facility] Start: 03-25-2023 End: 03-25-2024 CBC W Auto Differential panel - Blood CBC and differential Lab Routine Edema of right lower extremity Expected: 03/25/2023 (Approximate), Expires: 03/25/2024 [facility] Comment on above: Expected: 03/25/2023 (Approximate), Expires: 03/25/2024 Start: 03-25-2023 End: 03-25-2024 Comprehensive metabolic 2000 panel - Serum or Plasma Comprehensive metabolic panel Lab Routine Edema of right lower extremity Expected: 03/25/2023 (Approximate), Expires: 03/25/2024 [facility] Comment on above: Expected: 03/25/2023 (Approximate), Expires: 03/25/2024 Start: 03-25-2023 End: 03-25-2024 Fibrin D-dimer FEU [Mass/volume] in Platelet poor plasma D-dimer, quantitative Lab Routine Edema of right lower extremity Expected: 03/25/2023 (Approximate), Expires: 03/25/2024 [facility] Comment on above: Expected: 03/25/2023 (Approximate), Expires: 03/25/2024 Start: 03-25-2023 End: 03-25-2024 US.doppler Lower extremity vein - right Vascular US lower extremity venous duplex right Imaging STAT Edema of right lower extremity Expected: 03/25/2023, Expires: 03/25/2024 [facility] Work Phone: Comment on above: Expected: 03/25/2023 , Expires: 03/25/2024 Start: 03-25-2023 End: 03-25-2024 XR Chest 2 Views XR chest 2 views Imaging Routine Edema of right lower extremity Shortness of breath Expected: 03/25/2023, Expires: 03/25/2024 [facility] Comment on above: Expected: 03/25/2023 , Expires: 03/25/2024 Start: 08-16-1993 Screening for malign ant neoplasm of cervix HPV/Cotest [facility] Start: 08-16-1984 Screening for malign ant neoplasm of cervix Pap Smear [facility] Start: 1965 Medicare Annual Well ness (AWV) Medicare Annual Wellness (AWV) [facility] Start: 1965 Screening for malign ant neoplasm of colon [facility] Start: 1965 Screening for malign ant neoplasm of lung Lung Cancer Screening Shared Decision Making [facility] BLOOD CULTURE 1 BLOOD CULTURE 1 Lab Routine 12/24/2023 1:45 PM EST [facility] BLOOD CULTURE 1 BLOOD CULTURE 1 Lab Routine 12/25/2023 9:09 PM EST [facility] BLOOD CULTURE 2 BLOOD CULTURE 2 Lab Routine 12/24/2023 1:51 PM EST [facility] BLOOD CULTURE 2 BLOOD CULTURE 2 Lab Routine 12/25/2023 9:20 PM EST [facility] Immunizations Immunization Date Immunization Notes Care Provider Will santiago 08-29-2023 tetanus toxoid, reduced diphtheria toxoid, and acellular pertussis vaccine, adsorbed Jaymie Phoenix HONE OPERATOR Work Phone: [facility] 06-14-2020 Kelly SARS-CoV-2 Jaymie ramirez HONE OPERATOR Work Phone: [facility] NEGATED: Highlighted row has not occurred!02-03-2022 influenza virus vaccine, unspecified formulation Bryson FERRER [facility] Payers Date Payer Category Payer Self-pay 2021 Medicaid [employer] A DVANTAGE [id number] 2015 Medicare [id number] 1963 Unknown [id number] 2.16.840.1.012740.3.579.2. 72 1963 Unknown [id number] 2.16.840.1.397551.3.579.2. 72 1963 Unknown [id number] 2.16.840.1.159971.3.579.2. 72 1963 Unknown [id number] 2.16.840.1.976176.3.579.2. 72 1963 Unknown [id number] 2.16.840.1.078579.3.579.2. 72 1963 Unknown [id number] 2.16.840.1.754589.3.579.2. 59 1963 Unknown [id number] 2.16.840.1.095270.3.579.2. 59 1963 Unknown [id number] 2.16.840.1.192064.3.579.2. 59 1963 Unknown [id number] 2.16.840.1.690397.3.579.2. 59 1963 Unknown [id number] 2.16.840.1.093443.3.579.2. 59 1963 Unknown [id number] 2.16.840.1.230755.3.579.2. 59 1963 Unknown [id number] 2.16.840.1.374929.3.579.2. 59 1963 Unknown [id number] 2.16.840.1.200272.3.579.2. 593 1963 Unknown [id number] 2.16.840.1.103287.3.579.2. 59 1963 Unknown [id number] 2.16.840.1.743737.3.579.2. 59 1963 Unknown [id number] 2.16.840.1.864673.3.579.2. 59 1963 Unknown [id number] 2.16.840.1.013370.3.579.2 59 1963 Unknown [id number] 2.16.840.1.000821.3.579.2 1963 Unknown [id number] 2.16.840.1.684602.3.579.2 59 1963 Unknown [id number] 2.16.840.1.672507.3.579.2 59 1963 Unknown [id number] 2.16.840.1.518552.3.579.2 59 1963 Unknown [id number] 2.16.840.1.175000.3.579.2 59 1963 Unknown [id number] 2.16.840.1.533847.3.579.2. 59 1963 Unknown [id number] 2.16.840.1.511696.3.579.2 59 1963 Unknown [id number] 2.16.840.1.874298.3.579.2. 59 1963 Unknown [id number] 2.16.840.1.987737.3.579.2. 59 1963 Unknown [id number] 2.16.840.1.731737.3.579.2. 59 1963 Unknown [id number] 2.16.840.1.921178.3.579.2. 1259 1963 Unknown [id number] 2.16.840.1.543555.3.579.2. 1258 1963 Unknown [id number] 2.16.840.1.170534.3.579.2. 1258 1963 Unknown [id number] 2.16.840.1.778091.3.579.2. 1258 1963 Unknown [id number] 2.16.840.1.793408.3.579.2. 9 1959 Private Health Insurance [id number] Medicaid [id number] Unknown [id number] 2.16.840.1.672613.3.579.2. 531 Unknown Regular Insurance [id number] Social History Date Type Detail Facility Start: 02-03-2022 Tobacco smoking status Heavy t obacco smoker (finding) [facility] Tobacco smoking status Never [facility] Start: 03-16-2023 End: 05-13-2023 Sex Assigned At Female [facility] Start: 01-26-2023 End: 09-01-2024 Tobacco smoking status KSIS Smokes tobacco daily [facility] History of [...] Yes [facility] Tobacco smoking stat us KSIS Unknown if ever smoked [facility] Work Phone: Sex Female (finding) [facility] Start: 1965 Sex Assigned At Female [facility] Functional Status Date Assessment Result Facility 07-31-2024 Patient Health Quest ionnaire 2 item (PHQ-2) [Reported] [facility] 07-31-2024 PHQ-9 quick depressi on assessment panel [Reported.PHQ] [facility] 02-03-2022 Functional Status N/A [facility] Clinical Notes 12-09-2021 to 08-31-2024 Nat [...] by mouth at bedtime 90 tablet 1 Jlbchov-Tfwfywmhiaq-Tbjzhbiijn (Breztri Aerosphere) 160-9-4.8 MCG/ACT aerosol Inhale 2 [...] (5000 UT) tablet as directed Orally HYDROcodone-acetaminophen (Geff) 5-325 MG tablet Take 1 tablet by [...] of 40.0 to 44.9 in adult ([facility]) 01/26/2023 COPD mixed type ([facility]) 01/26/2023 DENIES HX OF BLOOD BORNE DISEASES [...] Nat Henderson DO documented in this encounter [facility] 07-31-2024 History of Presen t illness [...] (severe) obesity due to excess calories ([facility]) Discussed with patient their BMI (actual, verses [...] Associated Problem(s): Chronic kidney disease, stage 3a ([facility]) Check Chem 8 02 range is 89-92% [...] Nightly atorvastatin (LIPITOR) 20 mg, Oral, Nightly Wxmysmy-Iwcplifutbx-Ssdxfyfyyd (Breztri Aerosphere) 160-9-4.8 MCG/ACT aerosol 2 puffs, [...] of 40.0 to 44.9 in adult ([facility]) 01/26/2023 COPD mixed type ([facility]) 01/26/2023 DENIES HX OF BLOOD BORNE DISEASES [...] of the risks of continued smoking: stroke, [place], all forms of cancer, lung disease, and [...] PFT prior to seeing pulmonology Relevant Medications Desbahd-Mcntzrzjnzm-Rnaddwclfb (Breztri Aerosphere) 160-9-4.8 MCG/ACT aerosol Anxiety and depression Continue with Dr Gomez GERD (gastroesophageal reflux disease) Recommendations: freq small meals, nothing to eat or drink at least 2 hours prior to bed, limit caffeine, alcohol, as well as spicy foods Meds to limit or avoid if possible: NSAIDS Elevate HOB if possible Current med: omeprazole Insurance 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 Compliant: no documented in this encounter [facility] 07-31-2024 Instructions Jaymie Phoenix NP - 07/31/2024 10:30 AM EDT Get labs completed Chantix: take as directed, contact me if worsening in mental health documented in this encounter [facility] 06-14-2024 Telephone encounter Note She is also due for her AWV, please call to schedule LA [facility] 06-14-2024 Miscellaneous Notes She is also due for her AWV, please call to schedule LA documented in this encounter [facility] 06-14-2024 Telephone encounter Note 90 day supply [facility] 06-14-2024 Miscellaneous Notes 90 day supply documented in this encounter [facility] 03-14-2024 History of Presen t illness [...] of 40.0 to 44.9 in adult ([facility]) 01/26/2023 COPD mixed type ([facility]) 01/26/2023 DENIES HX OF BLOOD BORNE DISEASES Depression ([facility]) Fibromyalgia Open wound of left foot 01/26/2023 Open wound of second toe 01/26/2023 Other acute sinusitis 01/26/2023 Primary hypertension ([facility]) 01/26/2023 Tobacco dependence 01/26/2023 Past Surgical History: [...] , wrist extensors , wrist flexor , peeled potato inspector strength 5/5. LUE Strength deltoid , biceps , triceps , wrist extensors , wrist flexor , peeled potato inspector strength 5/5. RLE Strength illopsoas, quadriceps, tibialis [...] reflex 1+ . Forrest's sign negative. Coordination: Vduicy-bs-huda testing and rapid alternating movements are normal [...] and return instructions documented in this encounter [facility] 02-10-2024 History of Presen t illness [...] of 40.0 to 44.9 in adult ([facility]) 01/26/2023 COPD mixed type ([facility]) 01/26/2023 DENIES HX OF BLOOD BORNE DISEASES Depression ([facility]) Fibromyalgia Open wound of left foot 01/26/2023 Open wound of second toe 01/26/2023 Other acute sinusitis 01/26/2023 Primary hypertension (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 Compliant: no documented in this encounter [facility] 01-03-2024 History of Presen t illness [...] of 40.0 to 44.9 in adult ([facility]) 01/26/2023 COPD mixed type ([facility]) 01/26/2023 DENIES HX OF BLOOD BORNE DISEASES Depression ([facility]) Fibromyalgia Open wound of left foot 01/26/2023 Open wound of second toe 01/26/2023 Other acute sinusitis 01/26/2023 Primary hypertension ([facility]) 01/26/2023 Tobacco dependence 01/26/2023 Past Surgical History: [...] of the risks of continued smoking: stroke, [place], all forms of cancer, lung disease, and [...] of the risks of continued smoking: stroke, [place], all forms of cancer, lung disease, and [...] use of PAP documented in this encounter [facility] 01-03-2024 Instructions Jaymie Phoenix NP - 01/03/2024 10:30 AM EST Referral to motorcycle repairer Consider patches documented in this encounter [facility] 03-25-2023 History of Presen t illness [...] of 40.0 to 44.9 in adult ([facility]) 01/26/2023 COPD mixed type (CMS/HCC) 01/26/2023 DENIES [...] chest 2 views documented in this encounter [facility] 03-16-2023 History of Presen t illness [...] of 40.0 to 44.9 in adult ([facility] [facility]) 01/26/2023 COPD mixed type ([facility]) 01/26/2023 DENIES HX OF BLOOD BORNE DISEASES Depression ([facility]) Fibromyalgia Open wound of left foot 01/26/2023 Open wound of second toe 01/26/2023 Other acute sinusitis 01/26/2023 Primary hypertension ([facility]) 01/26/2023 Tobacco dependence 01/26/2023 Past Surgical History: [...] 40.0-44.9, adult (Z68.41) documented in this encounter [facility] 04-30-2022 Note CONSULTATION CONSULTATION DATE: 04/30/2022 [...] office on an as needed basis. [facility] 02-25-2022 Note OPERATIVE NOTE OPERATION [...] good condition. CC: Patient's family physician [facility] 02-06-2022 Note CONSULTATION CONSULTATION DATE: [...] followed up in the clinic thereafter. [facility] 02-03-2022 Note Chief Complaint consultation [...] 30 days Tobacco (more content not included)... [facility] Comment on above: Result Comment: Elec [...] followed up in the clinic thereafter. [facility] 12-09-2021 Note CONSULTATION CONSULTATION DATE: [...] to proceed. CC: Jaymie Phoenix CNP [facility] Evaluation + Plan note No data available for this section General Surgery [place] Evaluation note Diagnosis COPD mixed type (CMS/HCC)- [...] of 40.0 to 44.9 in adult ([facility]) Tobacco dependence Tobacco use disorder Bilateral lower extremity edema Acute non-recurrent sinusitis of other sinus COPD mixed type (CMS/HCC) Open wound of second toe of left foot, initial encounter Open wound of left foot, initial encounter COPD mixed type (CMS/HCC)- Primary Tobacco dependence Tobacco use disorder BMI 40.0-44.9, adult ([facility]) Body mass index [BMI] 40.0-44.9, adult (Z68.41) Primary hypertension (CMS/HCC) Unspecified essential hypertension Bilateral lower extremity edema Edema of right lower extremity- Primary BMI 40.0-44.9, adult ([facility]) Shortness of breath COPD mixed type (CMS/HCC) Primary hypertension (CMS/HCC) Unspecified essential hypertension Bilateral lower extremity edema Bilateral lower extremity edema- Primary Primary hypertension (CMS/HCC) Unspecified essential hypertension COPD mixed type (CMS/HCC) Class 3 severe obesity due to excess calories without serious comorbidity with body mass index (BMI) of 40.0 to 44.9 in adult ([facility]) Tobacco dependence Tobacco use disorder Bilateral lower extremity edema- Primary Tobacco dependence Tobacco use disorder BMI 40.0-44.9, adult ([facility]) COPD mixed type (CMS/HCC) WINSOME (obstructive sleep apnea) Obstructive sleep apnea (adult) (pediatric) Encounter for subsequent annual wellness visit (AWV) in Medicare patient- Primary Edema of right lower extremity Anxiety and depression ([facility]) Tobacco dependence Tobacco use disorder BMI 40.0-44.9, adult ([facility]) Fibromyalgia Unspecified myalgia and myositis Primary hypertension ([facility]) Unspecified essential hypertension COPD mixed type ([facility]/HCC) Mixed hyperlipidemia ([facility]/HCC) Mixed hyperlipidemia documented in this encounter [facility] HealthcareEvaluation note* Diagnosis Primary hypertension ([facility]/HCC)- Primary Unspecified essential hypertension Mixed hyperlipidemia ([facility]/HCC) Mixed hyperlipidemia Fibromyalgia Unspecified myalgia and myositis Migraine without aura and without status migrainosus, not intractable ([facility]/HCC) Class 3 severe obesity due to excess calories without serious comorbidity with body mass index (BMI) of 40.0 to 44.9 in adult ([facility]) Tobacco dependence Tobacco use disorder Bilateral lower extremity edema Acute non-recurrent sinusitis of other sinus COPD mixed type (CMS/HCC) Open wound of second toe of left foot, initial encounter Open wound of left foot, initial encounter COPD mixed type (CMS/HCC)- Primary Tobacco dependence Tobacco use disorder BMI 40.0-44.9, adult ([facility]) Body mass index [BMI] 40.0-44.9, adult (Z68.41) Primary hypertension (CMS/HCC) Unspecified essential hypertension Bilateral lower extremity edema Edema of right lower extremity- Primary BMI 40.0-44.9, adult ([facility]) Shortness of breath COPD mixed type (CMS/HCC) Primary hypertension (CMS/HCC) Unspecified essential hypertension Bilateral lower extremity edema Bilateral lower extremity edema- Primary Primary hypertension ([facility]) Unspecified essential hypertension COPD mixed type (CMS/HCC) Class 3 severe obesity due to excess calories without serious comorbidity with body mass index (BMI) of 40.0 to 44.9 in adult ([facility]) Tobacco dependence Tobacco use disorder Bilateral lower extremity edema- Primary Tobacco dependence Tobacco use disorder BMI 40.0-44.9, adult ([facility]) COPD mixed type ([facility]) WINSOME (obstructive sleep apnea) Obstructive sleep apnea (adult) (pediatric) Encounter for subsequent annual wellness visit (AWV) in Medicare patient- Primary Edema of right lower extremity Anxiety and depression ([facility]) Tobacco dependence Tobacco use disorder BMI 40.0-44.9, adult ([facility] Fibromyalgia Unspecified myalgia and myositis Primary hypertension ([facility]) Unspecified essential hypertension COPD mixed type ([facility]) Fibromyalgia Unspecified myalgia and myositis documented in this encounter [facility]* Diagnosis Primary hypertension ([facility])- Primary Unspecified essential hypertension Mixed hyperlipidemia ([facility]) Mixed hyperlipidemia Fibromyalgia Unspecified myalgia and myositis Migraine without aura and without status migrainosus, not intractable ([facility]) Class 3 severe obesity due to excess calories without serious comorbidity with body mass index (BMI) of 40.0 to 44.9 in adult ([facility]) Tobacco dependence Tobacco use disorder Bilateral lower extremity edema Acute non-recurrent sinusitis of other sinus COPD mixed type (CMS/HCC) Open wound of second toe of left foot, initial encounter Open wound of left foot, initial encounter COPD mixed type ([facility]/HCC)- Primary Tobacco dependence Tobacco use disorder BMI 40.0-44.9, adult ([facility]) Body mass index [BMI] 40.0-44.9, adult (Z68.41) Primary hypertension (CMS/HCC) Unspecified essential hypertension Bilateral lower extremity edema Edema of right lower extremity- Primary BMI 40.0-44.9, adult ([facility]) Shortness of breath COPD mixed type (CMS/HCC) Primary hypertension (CMS/HCC) Unspecified essential hypertension Bilateral lower extremity edema Bilateral lower extremity edema- Primary Primary hypertension ([facility]) Unspecified essential hypertension COPD mixed type ([facility]) Class 3 severe obesity due to excess calories without serious comorbidity with body mass index (BMI) of 40.0 to 44.9 in adult ([facility]) Tobacco dependence Tobacco use disorder Bilateral lower extremity edema- Primary Tobacco dependence Tobacco use disorder BMI 40.0-44.9, adult ([facility]) COPD mixed type ([facility]) WINSOME (obstructive sleep apnea) Obstructive sleep apnea (adult) (pediatric) Encounter for subsequent annual wellness visit (AWV) in Medicare patient- Primary Edema of right lower extremity Anxiety and depression ([facility]) Tobacco dependence Tobacco use disorder BMI 40.0-44.9, adult ([facility]) Fibromyalgia Unspecified myalgia and myositis Primary hypertension ([facility]) Unspecified essential hypertension COPD mixed type ([facility]) WINSOME (obstructive sleep apnea)- Primary Obstructive sleep apnea (adult) (pediatric) COPD mixed type ([facility]) Primary hypertension ([facility]) Unspecified essential hypertension Fibromyalgia Unspecified myalgia and myositis BMI 40.0-44.9, adult ([facility]) Tobacco dependence Tobacco use disorder Mixed hyperlipidemia ([facility]) Mixed hyperlipidemia Vitamin D deficiency Vitamin B12 deficiency Other B-complex deficiencies COPD with acute exacerbation ([facility]) documented in this encounter [facility]* Diagnosis Fibromyalgia Unspecified myalgia and myositis Gastro-esophageal reflux disease without esophagitis documented in this encounter [facility]* Diagnosis Primary hypertension ([facility])- Primary Unspecified essential hypertension Mixed hyperlipidemia ([facility]) Mixed hyperlipidemia Fibromyalgia Unspecified myalgia and myositis Migraine without aura and without status migrainosus, not intractable ([facility]) Class 3 severe obesity due to excess calories without serious comorbidity with body mass index (BMI) of 40.0 to 44.9 in adult ([facility]) Tobacco dependence Tobacco use disorder Bilateral lower extremity edema Acute non-recurrent sinusitis of other sinus COPD mixed type ([facility]) Open wound of second toe of left foot, initial encounter Open wound of left foot, initial encounter COPD mixed type ([facility]/HCC)- Primary Tobacco dependence Tobacco use disorder BMI 40.0-44.9, adult ([facility]) Body mass index [BMI] 40.0-44.9, adult (Z68.41) Primary hypertension ([facility]) Unspecified essential hypertension Bilateral lower extremity edema Edema of right lower extremity- Primary BMI 40.0-44.9, adult ([facility]) Shortness of breath COPD mixed type ([facility]) Primary hypertension ([facility]) Unspecified essential hypertension Bilateral lower extremity edema Bilateral lower extremity edema- Primary Primary hypertension ([facility]) Unspecified essential hypertension COPD mixed type ([facility]) Class 3 severe obesity due to excess calories without serious comorbidity with body mass index (BMI) of 40.0 to 44.9 in adult ([facility]) Tobacco dependence Tobacco use disorder Bilateral lower extremity edema- Primary Tobacco dependence Tobacco use disorder BMI 40.0-44.9, adult ([facility]) COPD mixed type ([facility]) WINSOME (obstructive sleep apnea) Obstructive sleep apnea (adult) (pediatric) Encounter for subsequent annual wellness visit (AWV) in Medicare patient- Primary Edema of right lower extremity Anxiety and depression ([facility]) Tobacco dependence Tobacco use disorder BMI 40.0-44.9, adult ([facility]) Fibromyalgia Unspecified myalgia and myositis Primary hypertension ([facility]) Unspecified essential hypertension COPD mixed type ([facility]) WINSOME (obstructive sleep apnea)- Primary Obstructive sleep apnea (adult) (pediatric) COPD mixed type ([facility]) Primary hypertension ([facility]) Unspecified essential hypertension Fibromyalgia Unspecified myalgia and myositis BMI 40.0-44.9, adult ([facility]) Tobacco dependence Tobacco use disorder Mixed hyperlipidemia ([facility]) Mixed hyperlipidemia Vitamin D deficiency Vitamin B12 deficiency Other B-complex deficiencies COPD with acute exacerbation ([facility] Fibromyalgia Unspecified myalgia and myositis documented in this encounter [facility] HealthcareEvaluation note* Diagnosis Primary hypertension ([facility]/HCC)- Primary Unspecified essential hypertension Mixed hyperlipidemia ([facility]) Mixed hyperlipidemia Fibromyalgia Unspecified myalgia and myositis Migraine without aura and without status migrainosus, not intractable ([facility]) Class 3 severe obesity due to excess calories without serious comorbidity with body mass index (BMI) of 40.0 to 44.9 in adult ([facility]) Tobacco dependence Tobacco use disorder Bilateral lower extremity edema Acute non-recurrent sinusitis of other sinus COPD mixed type (CMS/HCC) Open wound of second toe of left foot, initial encounter Open wound of left foot, initial encounter COPD mixed type (CMS/HCC)- Primary Tobacco dependence Tobacco use disorder BMI 40.0-44.9, adult ([facility]) Body mass index [BMI] 40.0-44.9, adult (Z68.41) Primary hypertension ([facility]) Unspecified essential hypertension Bilateral lower extremity edema Edema of right lower extremity- Primary BMI 40.0-44.9, adult ([facility]) Shortness of breath COPD mixed type (CMS/HCC) Primary hypertension (CMS/HCC) Unspecified essential hypertension Bilateral lower extremity edema Bilateral lower extremity edema- Primary Primary hypertension ([facility]) Unspecified essential hypertension COPD mixed type (CMS/HCC) Class 3 severe obesity due to excess calories without serious comorbidity with body mass index (BMI) of 40.0 to 44.9 in adult ([facility]) Tobacco dependence Tobacco use disorder Bilateral lower extremity edema- Primary Tobacco dependence Tobacco use disorder BMI 40.0-44.9, adult ([facility]) COPD mixed type ([facility]) WINSOME (obstructive sleep apnea) Obstructive sleep apnea (adult) (pediatric) Encounter for subsequent annual wellness visit (AWV) in Medicare patient- Primary Edema of right lower extremity Anxiety and depression ([facility]) Tobacco dependence Tobacco use disorder BMI 40.0-44.9, adult ([facility]) Fibromyalgia Unspecified myalgia and myositis Primary hypertension ([facility]) Unspecified essential hypertension COPD mixed type ([facility]/HCC) WINSOME (obstructive sleep apnea)- Primary Obstructive sleep apnea (adult) (pediatric) COPD mixed type (CMS/HCC) Primary hypertension ([facility]) Unspecified essential hypertension Fibromyalgia Unspecified myalgia and myositis BMI 40.0-44.9, adult ([facility]) Tobacco dependence Tobacco use disorder Mixed hyperlipidemia ([facility]/HCC) Mixed hyperlipidemia Vitamin D deficiency Vitamin B12 deficiency Other B-complex deficiencies COPD with acute exacerbation ([facility]/HCC) COPD with acute exacerbation ([facility])- Primary Morbid (severe) obesity due to excess calories ([facility]) Body mass index (BMI) 40.0-44.9, adult ([facility]) WINSOME (obstructive sleep apnea) Obstructive sleep apnea (adult) (pediatric) COPD mixed type ([facility]) Gastroesophageal reflux disease, unspecified whether esophagitis present Tobacco dependence Tobacco use disorder Gastro-esophageal reflux disease without esophagitis Tremor Abnormal involuntary movements documented in this encounter [facility] HealthcareEvaluation note* Diagnosis Primary hypertension ([facility])- Primary Unspecified essential hypertension Mixed hyperlipidemia ([facility]) Mixed hyperlipidemia Fibromyalgia Unspecified myalgia and myositis Migraine without aura and without status migrainosus, not intractable ([facility]) Class 3 severe obesity due to excess calories without serious comorbidity with body mass index (BMI) of 40.0 to 44.9 in adult ([facility]) Tobacco dependence Tobacco use disorder Bilateral lower extremity edema Acute non-recurrent sinusitis of other sinus COPD mixed type ([facility]) Open wound of second toe of left foot, initial encounter Open wound of left foot, initial encounter COPD mixed type ([facility])- Primary Tobacco dependence Tobacco use disorder BMI 40.0-44.9, adult ([facility]) Body mass index [BMI] 40.0-44.9, adult (Z68.41) Primary hypertension ([facility]) Unspecified essential hypertension Bilateral lower extremity edema Edema of right lower extremity- Primary BMI 40.0-44.9, adult ([facility]) Shortness of breath COPD mixed type ([facility]) Primary hypertension ([facility]) Unspecified essential hypertension Bilateral lower extremity edema Bilateral lower extremity edema- Primary Primary hypertension ([facility]) Unspecified essential hypertension COPD mixed type ([facility]) Class 3 severe obesity due to excess calories without serious comorbidity with body mass index (BMI) of 40.0 to 44.9 in adult ([facility]) Tobacco dependence Tobacco use disorder Bilateral lower extremity edema- Primary Tobacco dependence Tobacco use disorder BMI 40.0-44.9, adult ([facility]) COPD mixed type ([facility]) WINSOME (obstructive sleep apnea) Obstructive sleep apnea (adult) (pediatric) Encounter for subsequent annual wellness visit (AWV) in Medicare patient- Primary Edema of right lower extremity Anxiety and depression ([facility]) Tobacco dependence Tobacco use disorder BMI 40.0-44.9, adult ([facility]) Fibromyalgia Unspecified myalgia and myositis Primary hypertension ([facility]) Unspecified essential hypertension COPD mixed type ([facility]) WINSOME (obstructive sleep apnea)- Primary Obstructive sleep apnea (adult) (pediatric) COPD mixed type ([facility]/HCC) Primary hypertension ([facility]) Unspecified essential hypertension Fibromyalgia Unspecified myalgia and myositis BMI 40.0-44.9, adult ([facility]) Tobacco dependence Tobacco use disorder Mixed hyperlipidemia ([facility]) Mixed hyperlipidemia Vitamin D deficiency Vitamin B12 deficiency Other B-complex deficiencies COPD with acute exacerbation ([facility] COPD with acute exacerbation ([facility])- Primary Morbid (severe) obesity due to excess calories ([facility]) Body mass index (BMI) 40.0-44.9, adult ([facility]) WINSOME (obstructive sleep apnea) Obstructive sleep apnea (adult) (pediatric) COPD mixed type (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)- Primary Unspecified essential hypertension Mixed hyperlipidemia ([facility]) Mixed hyperlipidemia Fibromyalgia Unspecified myalgia and myositis Migraine without aura and without status migrainosus, not intractable ([facility]) Class 3 severe obesity due to excess calories without serious comorbidity with body mass index (BMI) of 40.0 to 44.9 in adult ([facility]) Tobacco dependence Tobacco use disorder Bilateral lower extremity edema Acute non-recurrent sinusitis of other sinus COPD mixed type ([facility]) Open wound of second toe of left foot, initial encounter Open wound of left foot, initial encounter COPD mixed type ([facility])- Primary Tobacco dependence Tobacco use disorder BMI 40.0-44.9, adult ([facility]) Body mass index [BMI] 40.0-44.9, adult (Z68.41) Primary hypertension ([facility]) Unspecified essential hypertension Bilateral lower extremity edema Edema of right lower extremity- Primary BMI 40.0-44.9, adult ([facility]) Shortness of breath COPD mixed type ([facility]) Primary hypertension ([facility]) Unspecified essential hypertension Bilateral lower extremity edema Bilateral lower extremity edema- Primary Primary hypertension ([facility]) Unspecified essential hypertension COPD mixed type ([facility]) Class 3 severe obesity due to excess calories without serious comorbidity with body mass index (BMI) of 40.0 to 44.9 in adult ([facility]) Tobacco dependence Tobacco use disorder Bilateral lower extremity edema- Primary Tobacco dependence Tobacco use disorder BMI 40.0-44.9, adult ([facility]) COPD mixed type ([facility]) WINSOME (obstructive sleep apnea) Obstructive sleep apnea (adult) (pediatric) Encounter for subsequent annual wellness visit (AWV) in Medicare patient- Primary Edema of right lower extremity Anxiety and depression ([facility]) Tobacco dependence Tobacco use disorder BMI 40.0-44.9, adult ([facility]) Fibromyalgia Unspecified myalgia and myositis Primary hypertension ([facility]) Unspecified essential hypertension COPD mixed type ([facility]) WINSOME (obstructive sleep apnea)- Primary Obstructive sleep apnea (adult) (pediatric) COPD mixed type ([facility]) Primary hypertension ([facility] Unspecified essential hypertension Fibromyalgia Unspecified myalgia and myositis BMI 40.0-44.9, adult ([facility]) Tobacco dependence Tobacco use disorder Mixed hyperlipidemia ([facility]) Mixed hyperlipidemia Vitamin D deficiency Vitamin B12 deficiency Other B-complex deficiencies COPD with acute exacerbation ([facility] COPD with acute exacerbation ([facility])- Primary Morbid (severe) obesity due to excess calories ([facility]) Body mass index (BMI) 40.0-44.9, adult ([facility]) WINSOME (obstructive sleep apnea) Obstructive sleep apnea (adult) (pediatric) COPD mixed type ([facility]) Gastroesophageal reflux disease, unspecified whether esophagitis present Tobacco dependence Tobacco use disorder Gastro-esophageal reflux disease without esophagitis Tremor Abnormal involuntary movements Fibromyalgia Unspecified myalgia and myositis Localized edema Edema Mixed hyperlipidemia ([facility]) Mixed hyperlipidemia documented in this encounter [facility] HealthcareEvaluation note* Diagnosis Primary hypertension ([facility])- Primary Unspecified essential hypertension Mixed hyperlipidemia ([facility]) Mixed hyperlipidemia Fibromyalgia Unspecified myalgia and myositis Migraine without aura and without status migrainosus, not intractable ([facility]) Class 3 severe obesity due to excess calories without serious comorbidity with body mass index (BMI) of 40.0 to 44.9 in adult ([facility]) Tobacco dependence Tobacco use disorder Bilateral lower extremity edema Acute non-recurrent sinusitis of other sinus COPD mixed type ([facility]) Open wound of second toe of left foot, initial encounter Open wound of left foot, initial encounter COPD mixed type (CMS/HCC)- Primary Tobacco dependence Tobacco use disorder BMI 40.0-44.9, adult ([facility]) Body mass index [BMI] 40.0-44.9, adult (Z68.41) Primary hypertension ([facility]) Unspecified essential hypertension Bilateral lower extremity edema Edema of right lower extremity- Primary BMI 40.0-44.9, adult ([facility]) Shortness of breath COPD mixed type ([facility]) Primary hypertension ([facility]) Unspecified essential hypertension Bilateral lower extremity edema Bilateral lower extremity edema- Primary Primary hypertension ([facility]) Unspecified essential hypertension COPD mixed type ([facility]) Class 3 severe obesity due to excess calories without serious comorbidity with body mass index (BMI) of 40.0 to 44.9 in adult ([facility]) Tobacco dependence Tobacco use disorder Bilateral lower extremity edema- Primary Tobacco dependence Tobacco use disorder BMI 40.0-44.9, adult ([facility]) COPD mixed type ([facility]) WINSOME (obstructive sleep apnea) Obstructive sleep apnea (adult) (pediatric) Encounter for subsequent annual wellness visit (AWV) in Medicare patient- Primary Edema of right lower extremity Anxiety and depression ([facility]) Tobacco dependence Tobacco use disorder BMI 40.0-44.9, adult ([facility] Fibromyalgia Unspecified myalgia and myositis Primary hypertension ([facility]) Unspecified essential hypertension COPD mixed type ([facility]) WINSOME (obstructive sleep apnea)- Primary Obstructive sleep apnea (adult) (pediatric) COPD mixed type ([facility]) Primary hypertension ([facility]) Unspecified essential hypertension Fibromyalgia Unspecified myalgia and myositis BMI 40.0-44.9, adult ([facility]) Tobacco dependence Tobacco use disorder Mixed hyperlipidemia ([facility]) Mixed hyperlipidemia Vitamin D deficiency Vitamin B12 deficiency Other B-complex deficiencies COPD with acute exacerbation ([facility] COPD with acute exacerbation ([facility])- Primary Morbid (severe) obesity due to excess calories ([facility]) Body mass index (BMI) 40.0-44.9, adult (CMS/HCC) WINSOME (obstructive sleep apnea) Obstructive sleep apnea (adult) (pediatric) COPD mixed type (CMS/HCC) Gastroesophageal reflux disease, unspecified whether esophagitis present Tobacco dependence Tobacco use disorder Gastro-esophageal reflux disease without esophagitis Tremor Abnormal involuntary movements Environmental and seasonal allergies- Primary COPD mixed type (CMS/HCC) documented in this encounter [facility] HealthcareEvaluation note* Diagnosis Primary hypertension ([facility])- Primary Unspecified essential hypertension Mixed hyperlipidemia (CMS/HCC) Mixed hyperlipidemia Fibromyalgia Unspecified myalgia and myositis Migraine without aura and without status migrainosus, not intractable ([facility]) Class 3 severe obesity due to excess [...] use disorder BMI 40.0-44.9, adult ([facility]) Body mass index [BMI] 40.0-44.9, adult (Z68.41) Primary hypertension (CMS/HCC) Unspecified essential hypertension Bilateral lower extremity edema Edema of right lower extremity- Primary BMI 40.0-44.9, adult ([facility]) Shortness of breath COPD mixed type (CMS/HCC) Primary hypertension (CMS/HCC) Unspecified essential hypertension Bilateral lower extremity edema Bilateral lower extremity edema- Primary Primary hypertension ([facility]) Unspecified essential hypertension COPD mixed type (CMS/HCC) Class 3 severe obesity due to excess calories without serious comorbidity with body mass index (BMI) of 40.0 to 44.9 in adult Tobacco dependence Tobacco use disorder Bilateral lower extremity edema- Primary Tobacco dependence Tobacco use disorder BMI 40.0-44.9, adult ([facility]) COPD mixed type (CMS/HCC) WINSOME (obstructive sleep apnea) Obstructive sleep apnea (adult) (pediatric) Encounter for subsequent annual wellness visit (AWV) in Medicare patient- Primary Edema of right lower extremity Anxiety and depression ([facility]) Tobacco dependence Tobacco use disorder BMI 40.0-44.9, adult ([facility]) Fibromyalgia Unspecified myalgia and myositis Primary hypertension (CMS/HCC) Unspecified essential hypertension COPD mixed type (CMS/HCC) WINSOME (obstructive sleep apnea)- Primary Obstructive sleep apnea (adult) (pediatric) COPD mixed type (CMS/HCC) Primary hypertension (CMS/HCC) Unspecified essential hypertension Fibromyalgia Unspecified myalgia and myositis BMI 40.0-44.9, adult ([facility]) Tobacco dependence Tobacco use disorder Mixed hyperlipidemia (CMS/HCC) Mixed hyperlipidemia Vitamin D deficiency Vitamin B12 deficiency Other B-complex deficiencies COPD with acute exacerbation ([facility]) COPD with acute exacerbation ([facility])- Primary Morbid (severe) obesity due to excess calories ([facility]) Body mass index (BMI) 40.0-44.9, adult ([facility]) WINSOME (obstructive sleep apnea) Obstructive sleep apnea (adult) (pediatric) COPD mixed type ([facility]) Gastroesophageal reflux disease, unspecified whether esophagitis present Tobacco dependence Tobacco use disorder Gastro-esophageal reflux disease without esophagitis Tremor Abnormal involuntary movements Fibromyalgia Unspecified myalgia and myositis documented in this encounter [facility] HealthcareEvaluation note* Diagnosis Primary hypertension ([facility])- Primary Unspecified essential hypertension Mixed hyperlipidemia ([facility]) Mixed hyperlipidemia Fibromyalgia Unspecified myalgia and myositis Migraine without aura and without status migrainosus, not intractable ([facility]) Class 3 severe obesity due to excess calories without serious comorbidity with body mass index (BMI) of 40.0 to 44.9 in adult Tobacco dependence Tobacco use disorder Bilateral lower extremity edema Acute non-recurrent sinusitis of other sinus COPD mixed type ([facility]) Open wound of second toe of left foot, initial encounter Open wound of left foot, initial encounter COPD mixed type ([facility]/HCC)- Primary Tobacco dependence Tobacco use disorder BMI 40.0-44.9, adult ([facility]) Body mass index [BMI] 40.0-44.9, adult (Z68.41) Primary hypertension ([facility]) Unspecified essential hypertension Bilateral lower extremity edema Edema of right lower extremity- Primary BMI 40.0-44.9, adult ([facility]) Shortness of breath COPD mixed type ([facility]/HCC) Primary hypertension ([facility]/HCC) Unspecified essential hypertension Bilateral lower extremity edema Bilateral lower extremity edema- Primary Primary hypertension ([facility]) Unspecified essential hypertension COPD mixed type ([facility]) Class 3 severe obesity due to excess calories without serious comorbidity with body mass index (BMI) of 40.0 to 44.9 in adult Tobacco dependence Tobacco use disorder Bilateral lower extremity edema- Primary Tobacco dependence Tobacco use disorder BMI 40.0-44.9, adult ([facility]) COPD mixed type (CMS/HCC) WINSOME (obstructive sleep apnea) Obstructive sleep apnea (adult) (pediatric) Encounter for subsequent annual wellness visit (AWV) in Medicare patient- Primary Edema of right lower extremity Anxiety and depression ([facility]) Tobacco dependence Tobacco use disorder BMI 40.0-44.9, adult ([facility]) Fibromyalgia Unspecified myalgia and myositis Primary hypertension ([facility]) Unspecified essential hypertension COPD mixed type ([facility]/HCC) WINSOME (obstructive sleep apnea)- Primary Obstructive sleep apnea (adult) (pediatric) COPD mixed type (CMS/HCC) Primary hypertension (CMS/[facility]) Unspecified essential hypertension Fibromyalgia Unspecified myalgia and myositis BMI 40.0-44.9, adult ([facility]) Tobacco dependence Tobacco use disorder Mixed hyperlipidemia ([facility]) Mixed hyperlipidemia Vitamin D deficiency Vitamin B12 deficiency Other B-complex deficiencies COPD with acute exacerbation ([facility]) COPD with acute exacerbation ([facility])- Primary Morbid (severe) obesity due to excess calories ([facility]) Body mass index (BMI) 40.0-44.9, adult ([facility]) WINSOME (obstructive sleep apnea) Obstructive sleep apnea (adult) (pediatric) COPD mixed type ([facility]) Gastroesophageal reflux disease, unspecified whether esophagitis present Tobacco dependence Tobacco use disorder Gastro-esophageal reflux disease without esophagitis Tremor Abnormal involuntary movements Mixed hyperlipidemia ([facility]) Mixed hyperlipidemia documented in this encounter [facility] HealthcareEvaluation note* Diagnosis Primary hypertension ([facility])- Primary Unspecified essential hypertension Mixed hyperlipidemia ([facility]) Mixed hyperlipidemia Fibromyalgia Unspecified myalgia and myositis Migraine without aura and without status migrainosus, not intractable ([facility]) Class 3 severe obesity due to excess calories without serious comorbidity with body mass index (BMI) of 40.0 to 44.9 in adult Tobacco dependence Tobacco use disorder Bilateral lower extremity edema Acute non-recurrent sinusitis of other sinus COPD mixed type ([facility]) Open wound of second toe of left foot, initial encounter Open wound of left foot, initial encounter COPD mixed type ([facility]/HCC)- Primary Tobacco dependence Tobacco use disorder BMI 40.0-44.9, adult ([facility]) Body mass index [BMI] 40.0-44.9, adult (Z68.41) Primary hypertension (CMS/HCC) Unspecified essential hypertension Bilateral lower extremity edema Edema of right lower extremity- Primary BMI 40.0-44.9, adult ([facility]) Shortness of breath COPD mixed type ([facility]) Primary hypertension (CMS/HCC) Unspecified essential hypertension Bilateral [...] Tobacco use disorder BMI 40.0-44.9, adult ([facility]) COPD mixed type ([facility]) WINSOME (obstructive sleep apnea) Obstructive sleep apnea (adult) (pediatric) Encounter for subsequent annual wellness visit (AWV) in Medicare patient- Primary Edema of right lower extremity Anxiety and depression ([facility]) Tobacco dependence Tobacco use disorder BMI 40.0-44.9, adult ([facility]) Fibromyalgia Unspecified myalgia and myositis Primary hypertension ([facility]) Unspecified essential hypertension COPD mixed type ([facility]) WINSOME (obstructive sleep apnea)- Primary Obstructive sleep apnea (adult) (pediatric) COPD mixed type ([facility]) Primary hypertension ([facility] Unspecified essential hypertension Fibromyalgia Unspecified myalgia and myositis BMI 40.0-44.9, adult ([facility]) Tobacco dependence Tobacco use disorder Mixed hyperlipidemia ([facility]) Mixed hyperlipidemia Vitamin D deficiency Vitamin B12 deficiency Other B-complex deficiencies COPD with acute exacerbation ([facility] COPD with acute exacerbation ([facility])- Primary Morbid (severe) obesity due to excess calories ([facility]) Body mass index (BMI) 40.0-44.9, adult ([facility]) WINSOME (obstructive sleep apnea) Obstructive sleep apnea (adult) (pediatric) COPD mixed type ([facility]) Gastroesophageal reflux disease, unspecified whether esophagitis present Tobacco dependence Tobacco use disorder Gastro-esophageal reflux disease without esophagitis Tremor Abnormal involuntary movements Tobacco dependence- Primary Tobacco use disorder documented in this encounter [facility] HealthcareEvaluation note* Diagnosis Primary hypertension ([facility]/HCC)- Primary Unspecified essential hypertension Mixed hyperlipidemia (CMS/HCC) Mixed hyperlipidemia Fibromyalgia Unspecified myalgia and myositis Migraine without aura and without status migrainosus, not intractable (CMS/[facility]) Class 3 severe obesity due to excess [...] use disorder BMI 40.0-44.9, adult (CMS/[facility]) Body mass index [BMI] 40.0-44.9, adult (Z68.41) Primary hypertension (CMS/HCC) Unspecified essential hypertension Bilateral lower extremity edema Edema of right lower extremity- Primary BMI 40.0-44.9, adult ([facility]) Shortness of breath COPD mixed type ([facility]) Primary hypertension (CMS/HCC) Unspecified essential hypertension Bilateral [...] Tobacco use disorder BMI 40.0-44.9, adult ([facility]) COPD mixed type (CMS/HCC) WINSOME (obstructive sleep apnea) Obstructive sleep apnea (adult) (pediatric) Encounter for subsequent annual wellness visit (AWV) in Medicare patient- Primary Edema of right lower extremity Anxiety and depression ([facility]) Tobacco dependence Tobacco use disorder BMI 40.0-44.9, adult ([facility]) Fibromyalgia Unspecified myalgia and myositis Primary hypertension (CMS/HCC) Unspecified essential hypertension COPD mixed type (CMS/HCC) WINSOME (obstructive sleep apnea)- Primary Obstructive sleep apnea (adult) (pediatric) COPD mixed type (CMS/HCC) Primary hypertension (CMS/HCC) Unspecified essential hypertension Fibromyalgia Unspecified myalgia and myositis BMI 40.0-44.9, adult ([facility]) Tobacco dependence Tobacco use disorder Mixed hyperlipidemia ([facility]/HCC) Mixed hyperlipidemia Vitamin D deficiency Vitamin B12 deficiency Other B-complex deficiencies COPD with acute exacerbation ([facility] COPD with acute exacerbation ([facility])- Primary Morbid (severe) obesity due to excess calories ([facility]) Body mass index (BMI) 40.0-44.9, adult ([facility]) WINSOME (obstructive sleep apnea) Obstructive sleep apnea (adult) (pediatric) COPD mixed type ([facility]) Gastroesophageal reflux disease, unspecified whether esophagitis present Tobacco dependence Tobacco use disorder Gastro-esophageal reflux disease without esophagitis Tremor Abnormal involuntary movements Fibromyalgia Unspecified myalgia and myositis documented in this encounter [facility] HealthcareEvaluation note* Diagnosis Primary hypertension- Primary Unspecified essential hypertension Mixed hyperlipidemia Mixed hyperlipidemia Fibromyalgia Unspecified myalgia and myositis Migraine without aura and without status migrainosus, not intractable Class 3 severe obesity due to excess calories without serious comorbidity with body mass index (BMI) of 40.0 to 44.9 in adult ([facility]) Tobacco dependence Tobacco use disorder Bilateral lower extremity edema Acute non-recurrent sinusitis of other sinus COPD mixed type ([facility]) Open wound of second toe of left foot, initial encounter Open wound of left foot, initial encounter COPD mixed type (HCC)- Primary Tobacco dependence Tobacco use disorder BMI 40.0-44.9, adult ([facility]) Body mass index [BMI] 40.0-44.9, adult (Z68.41) Primary hypertension Unspecified essential hypertension Bilateral lower extremity edema Edema of right lower extremity- Primary BMI 40.0-44.9, adult ([facility]) Shortness of breath COPD mixed type ([facility] [place]) Primary hypertension Unspecified essential hypertension Bilateral lower extremity edema Bilateral lower extremity edema- Primary Primary hypertension Unspecified essential hypertension COPD mixed type (HCC) Class 3 severe obesity due to excess calories without serious comorbidity with body mass index (BMI) of 40.0 to 44.9 in adult [place] Tobacco dependence Tobacco use disorder Bilateral lower extremity edema- Primary Tobacco dependence Tobacco use disorder BMI 40.0-44.9, adult ([facility] COPD mixed type (HCC) WINSOME (obstructive sleep apnea) Obstructive sleep apnea (adult) (pediatric) Encounter for subsequent annual wellness visit (AWV) in Medicare patient- Primary Edema of right lower extremity Anxiety and depression Tobacco dependence Tobacco use disorder BMI 40.0-44.9, adult ([facility] Fibromyalgia Unspecified myalgia and myositis Primary hypertension Unspecified essential hypertension COPD mixed type (HCC) WINSOME (obstructive sleep apnea)- Primary Obstructive sleep apnea (adult) (pediatric) COPD mixed type (HCC) Primary hypertension Unspecified essential hypertension Fibromyalgia Unspecified myalgia and myositis BMI 40.0-44.9, adult ([facility] Tobacco dependence Tobacco use disorder Mixed hyperlipidemia Mixed hyperlipidemia Vitamin D deficiency Vitamin B12 deficiency Other B-complex deficiencies COPD with acute exacerbation (HCC) COPD with acute exacerbation (HCC)- Primary Morbid (severe) obesity due to excess calories ([facility]) Body mass index (BMI) 40.0-44.9, adult ([facility] WINSOME (obstructive sleep apnea) Obstructive sleep apnea (adult) (pediatric) COPD mixed type (HCC) Gastroesophageal reflux disease, unspecified whether esophagitis present Tobacco dependence Tobacco use disorder Gastro-esophageal reflux disease without esophagitis Tremor Abnormal involuntary movements Encounter for subsequent annual wellness visit (AWV) in Medicare patient- Primary Chronic kidney disease, stage 3a ([facility]) WINSOME (obstructive sleep apnea) Obstructive sleep apnea [...] (BMI) of 40.0 to 44.9 in adult ([facility] Tobacco dependence Tobacco use disorder Bilateral lower extremity edema Acute non-recurrent sinusitis of other sinus COPD mixed type ([facility]) Open wound of second toe of left foot, initial encounter Open wound of left foot, initial encounter COPD mixed type (HCC)- Primary Tobacco dependence Tobacco use disorder BMI 40.0-44.9, adult ([facility] Body mass index [BMI] 40.0-44.9, adult (Z68.41) Primary hypertension Unspecified essential hypertension Bilateral lower extremity edema Edema of right lower extremity- Primary BMI 40.0-44.9, adult ([facility] Shortness of breath COPD mixed type ([facility] [place]) Primary hypertension Unspecified essential hypertension Bilateral lower extremity edema Bilateral lower extremity edema- Primary Primary hypertension Unspecified essential hypertension COPD mixed type (HCC) Class 3 severe obesity due to excess calories without serious comorbidity with body mass index (BMI) of 40.0 to 44.9 in adult ([facility] Tobacco dependence Tobacco use disorder Bilateral lower extremity edema- Primary Tobacco dependence Tobacco use disorder BMI 40.0-44.9, adult ([facility] COPD mixed type ([facility] [place]) WINSOME (obstructive sleep apnea) Obstructive sleep apnea (adult) (pediatric) Encounter for subsequent annual wellness visit (AWV) in Medicare patient- Primary Edema of right lower extremity Anxiety and depression Tobacco dependence Tobacco use disorder BMI 40.0-44.9, adult ([facility] Fibromyalgia Unspecified myalgia and myositis Primary hypertension Unspecified essential hypertension COPD mixed type (HCC) WINSOME (obstructive sleep apnea)- Primary Obstructive sleep apnea (adult) (pediatric) COPD mixed type ([facility] [place]) Primary hypertension Unspecified essential hypertension Fibromyalgia Unspecified myalgia and myositis BMI 40.0-44.9, adult ([facility] Tobacco dependence Tobacco use disorder Mixed hyperlipidemia Mixed hyperlipidemia Vitamin D deficiency Vitamin B12 deficiency Other B-complex deficiencies COPD with acute exacerbation (HCC) COPD with acute exacerbation (HCC)- Primary Morbid (severe) obesity due to excess calories ([facility]) Body mass index (BMI) 40.0-44.9, adult ([facility]) WINSOME (obstructive sleep apnea) Obstructive sleep apnea (adult) (pediatric) COPD mixed type (HCC) Gastroesophageal reflux disease, unspecified whether esophagitis present Tobacco dependence Tobacco use disorder Gastro-esophageal reflux disease without esophagitis Tremor Abnormal involuntary movements Encounter for subsequent annual wellness visit (AWV) in Medicare patient- Primary Chronic kidney disease, stage 3a ([facility] WINSOME (obstructive sleep apnea) Obstructive sleep apnea [...] Tobacco use disorder documented in this encounter [facility] HealthcareEvaluation note* Diagnosis Primary hypertension- Primary Unspecified essential hypertension Mixed hyperlipidemia Mixed hyperlipidemia Fibromyalgia Unspecified myalgia and myositis Migraine without aura and without status migrainosus, not intractable Class 3 severe obesity due to excess calories without serious comorbidity with body mass index (BMI) of 40.0 to 44.9 in adult ([facility] Tobacco dependence Tobacco use disorder Bilateral lower extremity edema Acute non-recurrent sinusitis of other sinus COPD mixed type (HCC) Open wound of second toe of left foot, initial encounter Open wound of left foot, initial encounter COPD mixed type (HCC)- Primary Tobacco dependence Tobacco use disorder BMI 40.0-44.9, adult ([facility] Body mass index [BMI] 40.0-44.9, adult (Z68.41) Primary hypertension Unspecified essential hypertension Bilateral lower extremity edema Edema of right lower extremity- Primary BMI 40.0-44.9, adult ([facility] Shortness of breath COPD mixed type ([facility] [place]) Primary hypertension Unspecified essential hypertension Bilateral lower extremity edema Bilateral lower extremity edema- Primary Primary hypertension Unspecified essential hypertension COPD mixed type (HCC) Class 3 severe obesity due to excess calories without serious comorbidity with body mass index (BMI) of 40.0 to 44.9 in adult ([facility] Tobacco dependence Tobacco use disorder Bilateral lower extremity edema- Primary Tobacco dependence Tobacco use disorder BMI 40.0-44.9, adult ([facility] COPD mixed type ([facility]) WINSOME (obstructive sleep apnea) Obstructive sleep apnea (adult) (pediatric) Encounter for subsequent annual wellness visit (AWV) in Medicare patient- Primary Edema of right lower extremity Anxiety and depression Tobacco dependence Tobacco use disorder BMI 40.0-44.9, adult ([facility]) Fibromyalgia Unspecified myalgia and myositis Primary hypertension Unspecified essential hypertension COPD mixed type ([facility] [place]) WINSOME (obstructive sleep apnea)- Primary Obstructive sleep apnea (adult) (pediatric) COPD mixed type ([facility] [place]) Primary hypertension Unspecified essential hypertension Fibromyalgia Unspecified myalgia and myositis BMI 40.0-44.9, adult ([facility] Tobacco dependence Tobacco use disorder Mixed hyperlipidemia Mixed hyperlipidemia Vitamin D deficiency Vitamin B12 deficiency Other B-complex deficiencies COPD with acute exacerbation (HCC) COPD with acute exacerbation (HCC)- Primary Morbid (severe) obesity due to excess calories ([facility]) Body mass index (BMI) 40.0-44.9, adult ([facility]) WINSOME (obstructive sleep apnea) Obstructive sleep apnea (adult) (pediatric) COPD mixed type (HCC) Gastroesophageal reflux disease, unspecified whether esophagitis present Tobacco dependence Tobacco use disorder Gastro-esophageal reflux disease without esophagitis Tremor Abnormal involuntary movements Encounter for subsequent annual wellness visit (AWV) in Medicare patient- Primary Chronic kidney disease, stage 3a ([facility] WINSOME (obstructive sleep apnea) Obstructive sleep apnea [...] unspecified laterality- Primary documented in this encounter [facility] HealthcareEvaluation note* Diagnosis Primary hypertension- Primary Unspecified essential hypertension Mixed hyperlipidemia Mixed hyperlipidemia Fibromyalgia Unspecified myalgia and myositis Migraine without aura and without status migrainosus, not intractable Class 3 severe obesity due to excess calories without serious comorbidity with body mass index (BMI) of 40.0 to 44.9 in adult ([facility] Tobacco dependence Tobacco use disorder Bilateral lower extremity edema Acute non-recurrent sinusitis of other sinus COPD mixed type ([facility]) Open wound of second toe of left foot, initial encounter Open wound of left foot, initial encounter COPD mixed type (HCC)- Primary Tobacco dependence Tobacco use disorder BMI 40.0-44.9, adult ([facility] Body mass index [BMI] 40.0-44.9, adult (Z68.41) Primary hypertension Unspecified essential hypertension Bilateral lower extremity edema Edema of right lower extremity- Primary BMI 40.0-44.9, adult ([facility] Shortness of breath COPD mixed type ([facility]) Primary hypertension Unspecified essential hypertension Bilateral lower extremity edema Bilateral lower extremity edema- Primary Primary hypertension Unspecified essential hypertension COPD mixed type (HCC) Class 3 severe obesity due to excess calories without serious comorbidity with body mass index (BMI) of 40.0 to 44.9 in adult ([facility] Tobacco dependence Tobacco use disorder Bilateral lower extremity edema- Primary Tobacco dependence Tobacco use disorder BMI 40.0-44.9, adult ([facility] COPD mixed type ([facility] [place]) WINSOME (obstructive sleep apnea) Obstructive sleep apnea (adult) (pediatric) Encounter for subsequent annual wellness visit (AWV) in Medicare patient- Primary Edema of right lower extremity Anxiety and depression Tobacco dependence Tobacco use disorder BMI 40.0-44.9, adult ([facility] Fibromyalgia Unspecified myalgia and myositis Primary hypertension Unspecified essential hypertension COPD mixed type (HCC) WINSOME (obstructive sleep apnea)- Primary Obstructive sleep apnea (adult) (pediatric) COPD mixed type (HCC) Primary hypertension Unspecified essential hypertension Fibromyalgia Unspecified myalgia and myositis BMI 40.0-44.9, adult ([facility] Tobacco dependence Tobacco use disorder Mixed hyperlipidemia Mixed hyperlipidemia Vitamin D deficiency Vitamin B12 deficiency Other B-complex deficiencies COPD with acute exacerbation ([facility]) COPD with acute exacerbation ([facility] [place])- Primary Morbid (severe) obesity due to excess calories ([facility] Body mass index (BMI) 40.0-44.9, adult ([facility] WINSOME (obstructive sleep apnea) Obstructive sleep apnea (adult) (pediatric) COPD mixed type ([facility] [place]) Gastroesophageal reflux disease, unspecified whether esophagitis present Tobacco dependence Tobacco use disorder Gastro-esophageal reflux disease without esophagitis Tremor Abnormal involuntary movements Encounter for subsequent annual wellness visit (AWV) in Medicare patient- Primary Chronic kidney disease, stage 3a ([facility] WINSOME (obstructive sleep apnea) Obstructive sleep apnea (adult) (pediatric) COPD mixed type ([facility]) Gastroesophageal reflux disease, unspecified whether esophagitis present [...] Tobacco use disorder documented in this encounter [facility] HealthcareEvaluation note* Diagnosis Primary hypertension- Primary Unspecified essential hypertension Mixed hyperlipidemia Mixed hyperlipidemia Fibromyalgia Unspecified myalgia and myositis Migraine without aura and without status migrainosus, not intractable Class 3 severe obesity due to excess calories without serious comorbidity with body mass index (BMI) of 40.0 to 44.9 in adult ([facility] Tobacco dependence Tobacco use disorder Bilateral lower extremity edema Acute non-recurrent sinusitis of other sinus COPD mixed type ([facility]) Open wound of second toe of left foot, initial encounter Open wound of left foot, initial encounter COPD mixed type (HCC)- Primary Tobacco dependence Tobacco use disorder BMI 40.0-44.9, adult ([facility] Body mass index [BMI] 40.0-44.9, adult (Z68.41) Primary hypertension Unspecified essential hypertension Bilateral lower extremity edema Edema of right lower extremity- Primary BMI 40.0-44.9, adult ([facility] Shortness of breath COPD mixed type ([facility]) Primary hypertension Unspecified essential hypertension Bilateral lower extremity edema Bilateral lower extremity edema- Primary Primary hypertension Unspecified essential hypertension COPD mixed type ([facility]) Class 3 severe obesity due to excess calories without serious comorbidity with body mass index (BMI) of 40.0 to 44.9 in adult ([facility] Tobacco dependence Tobacco use disorder Bilateral lower extremity edema- Primary Tobacco dependence Tobacco use disorder BMI 40.0-44.9, adult ([facility] COPD mixed type ([facility]) WINSOME (obstructive sleep apnea) Obstructive sleep apnea (adult) (pediatric) Encounter for subsequent annual wellness visit (AWV) in Medicare patient- Primary Edema of right lower extremity Anxiety and depression Tobacco dependence Tobacco use disorder BMI 40.0-44.9, adult ([facility] Fibromyalgia Unspecified myalgia and myositis Primary hypertension Unspecified essential hypertension COPD mixed type ([facility]) WINSOME (obstructive sleep apnea)- Primary Obstructive sleep apnea (adult) (pediatric) COPD mixed type ([facility]) Primary hypertension Unspecified essential hypertension Fibromyalgia Unspecified myalgia and myositis BMI 40.0-44.9, adult ([facility] Tobacco dependence Tobacco use disorder Mixed hyperlipidemia Mixed hyperlipidemia Vitamin D deficiency Vitamin B12 deficiency Other B-complex deficiencies COPD with acute exacerbation (HCC) COPD with acute exacerbation (HCC)- Primary Morbid (severe) obesity due to excess calories ([facility] Body mass index (BMI) 40.0-44.9, adult ([facility] WINSOME (obstructive sleep apnea) Obstructive sleep apnea (adult) (pediatric) COPD mixed type (HCC) Gastroesophageal reflux disease, unspecified whether esophagitis present Tobacco dependence Tobacco use disorder Gastro-esophageal reflux disease without esophagitis Tremor Abnormal involuntary movements Encounter for subsequent annual wellness visit (AWV) in Medicare patient- Primary Chronic kidney disease, stage 3a ([facility] WINSOME (obstructive sleep apnea) Obstructive sleep apnea [...] unspecified laterality- Primary documented in this encounter [facility] HealthcareEvaluation note* Diagnosis Primary hypertension- Primary Unspecified essential hypertension Mixed hyperlipidemia Mixed hyperlipidemia Fibromyalgia Unspecified myalgia and myositis Migraine without aura and without status migrainosus, not intractable Class 3 severe obesity due to excess calories without serious comorbidity with body mass index (BMI) of 40.0 to 44.9 in adult ([facility] Tobacco dependence Tobacco use disorder Bilateral lower extremity edema Acute non-recurrent sinusitis of other sinus COPD mixed type (HCC) Open wound of second toe of left foot, initial encounter Open wound of left foot, initial encounter COPD mixed type (HCC)- Primary Tobacco dependence Tobacco use disorder BMI 40.0-44.9, adult ([facility] Body mass index [BMI] 40.0-44.9, adult (Z68.41) Primary hypertension Unspecified essential hypertension Bilateral lower extremity edema Edema of right lower extremity- Primary BMI 40.0-44.9, adult ([facility] Shortness of breath COPD mixed type ([facility]) Primary hypertension Unspecified essential hypertension Bilateral lower extremity edema Bilateral lower extremity edema- Primary Primary hypertension Unspecified essential hypertension COPD mixed type (HCC) Class 3 severe obesity due to excess calories without serious comorbidity with body mass index (BMI) of 40.0 to 44.9 in adult ([facility] Tobacco dependence Tobacco use disorder Bilateral lower extremity edema- Primary Tobacco dependence Tobacco use disorder BMI 40.0-44.9, adult ([facility] COPD mixed type (HCC) WINSOME (obstructive sleep apnea) Obstructive sleep apnea (adult) (pediatric) Encounter for subsequent annual wellness visit (AWV) in Medicare patient- Primary Edema of right lower extremity Anxiety and depression Tobacco dependence Tobacco use disorder BMI 40.0-44.9, adult ([facility] Fibromyalgia Unspecified myalgia and myositis Primary hypertension Unspecified essential hypertension COPD mixed type (HCC) WINSOME (obstructive sleep apnea)- Primary Obstructive sleep apnea (adult) (pediatric) COPD mixed type (HCC) Primary hypertension Unspecified essential hypertension Fibromyalgia Unspecified myalgia and myositis BMI 40.0-44.9, adult ([facility] Tobacco dependence Tobacco use disorder Mixed hyperlipidemia Mixed hyperlipidemia Vitamin D deficiency Vitamin B12 deficiency Other B-complex deficiencies COPD with acute exacerbation (HCC) COPD with acute exacerbation (HCC)- Primary Morbid (severe) obesity due to excess calories ([facility] Body mass index (BMI) 40.0-44.9, adult ([facility] WINSOME (obstructive sleep apnea) Obstructive sleep apnea (adult) (pediatric) COPD mixed type (HCC) Gastroesophageal reflux disease, unspecified whether esophagitis present Tobacco dependence Tobacco use disorder Gastro-esophageal reflux disease without esophagitis Tremor Abnormal involuntary movements Encounter for subsequent annual wellness visit (AWV) in Medicare patient- Primary Chronic kidney disease, stage 3a ([facility] WINSOME (obstructive sleep apnea) Obstructive sleep apnea [...] excess calories acute October 31, 2024 11:11am [facility] Work Phone: Hospital Discharge instructions No data available for this section [facility] [place] Progress note No data available for this section [facility] [place] Reason for referral (narrative)No reason for referral information available[facility] Work Phone: Reason for visit Narrative* Consultation (Routine) - Closed Specialty Diagnoses / Procedures Referred By Contac t Referred To Contact Neurology Diagnoses Tremor Procedures DE OFFICE/OUTPATIENT [facility] 60 MINUTES Jaymie Phoenix NP [address] [place] [address] Phone: tel: fax: Saumya Back DO [address] [place] [address] Phone: tel: fax: Referral ID Status Reason Start Date Expiration Date V isits Requested Visits Authorized [id number] Closed Specialty Services Required 02/10/2024 08/08/2024 1 [...] right Jaymie Phoenix NP [address] [place] [address] Referral ID Status Reason Start Date Expiration Date V isits Requested Visits Authorized [id number] Authorized 03/25/2023 09/21/2023 1 1 Chief Complaint [...] content) DATE CREATED AUTHOR 12/26/[address] [facility] dical Specialist DATE CREATED AUTHOR AUTHOR'S ORGANIZ ATION 03/25/2022 [facility] DATE CREATED AUTHOR AUTHOR'S ORGANIZ ATION 07/17/2022 [facility] pital DATE CREATED AUTHOR AUTHOR'S ORGANIZ ATION 08/31/[address] [facility] y[facility] DATE CREATED AUTHOR AUTHOR'S ORGANIZ ATION 09/02/[address] [facility] dical Specialists EPIC Patient Care team informatio n (unrecognized section and content) College Administrator Relationship Specialty Start Date End Date Jaymie Phoenix NP [address] [place] [phone] Nurse Practitioner Family Medicine 01/26/23 College Administrator Relationship Specialty Start Date End Date Shaikh Marquez MD [address] [place] [phone] PCP - General Internal Medicine 03/25/23 Jaymie Phoenix NP [address] [place] [phone] Nurse Practitioner Family Medicine 01/26/23 College Administrator Relationship Specialty Start Date End Date Shaikh Marquez MD [address] [place] [phone] PCP - General Internal Medicine 03/25/23 Jaymie Phoenix NP [address] [place] [phone] Nurse Practitioner Family Medicine 01/26/23 College Administrator Relationship Specialty Start Date End Date Rohan Rodríguez MD [address] [place] [phone] PCP - General Family Medicine 05/13/23 Jaymie Phoenix NP [address] [place] [phone] Nurse Practitioner Family Medicine 01/26/23 Jaymie Phoenix NP [address] [place] [phone] Nurse Practitioner Family Medicine 05/13/23 College Administrator Relationship Specialty Start Date End Date Rohan Rodríguez MD [address] [place] [phone] PCP - General Family Medicine 05/13/23 Jaymie Phoenix NP [address] [place] [phone] Nurse Practitioner Family Medicine 01/26/23 Jaymie Phoenix NP [address] [place] [phone] Nurse Practitioner Family Medicine 05/13/23 College Administrator Relationship Specialty Start Date End Date Rohan Rodríguez MD [address] [place] [phone] PCP - General Family Medicine 05/13/23 Jaymie Phoenix NP [address] [place] [phone] Nurse Practitioner Family Medicine 01/26/23 Jaymie Phoenix NP [address] [place] [phone] Nurse Practitioner Family Medicine 05/13/23 College Administrator Relationship Specialty Start Date End Date Rohan Rodríguez MD [address] [place] [phone] PCP - General Family Medicine 05/13/23 Jaymie Phoenix NP [address] [place] [phone] Nurse Practitioner Family Medicine 01/26/23 Jaymie Phoenix NP [address] [place] [phone] Nurse Practitioner Family Medicine 05/13/23 College Administrator Relationship Specialty Start Date End Date Rohan Rodríguez MD [address] [place] [phone] PCP - General Family Medicine 05/13/23 Jaymie Phoenix NP [address] [place] [phone] Nurse Practitioner Family Medicine 01/26/23 Jaymie Phoenix NP [address] [place] [phone] Nurse Practitioner Family Medicine 05/13/23 College Administrator Relationship Specialty Start Date End Date Rohan Rodríguez MD [address] [place] [phone] PCP - General Family Medicine 05/13/23 Jaymie Phoenix NP [address] [place] [phone] Nurse Practitioner Family Medicine 01/26/23 Jaymie Phoenix NP [address] [place] [address] Nurse Practitioner Family Medicine 05/13/23 College Administrator Relationship Specialty Start Date End Date Rohan Rodríguez MD [address] [place] [address] PCP - General Family Medicine 05/13/23 Jaymie Phoenix NP [address] [place] [address] Nurse Practitioner Family Medicine 01/26/23 Jaymie Phoenix NP [address] [place] [address] Nurse Practitioner Family Medicine 05/13/23 College Administrator Relationship Specialty Start Date End Date Rohan Rodríguez MD [address] [place] [phone] PCP - General Family Medicine 05/13/23 Jaymie Phoenix NP [address] [place] [address] Nurse Practitioner Family Medicine 01/26/23 Jaymie Phoenix NP [address] [place] [address] Nurse Practitioner Family Medicine 05/13/23 College Administrator Relationship Specialty Start Date End Date Rohan Rodríguez MD [address] [place] [address] PCP - General Family Medicine 05/13/23 Jaymie Phoenix NP [address] [place] [address] Nurse Practitioner Family Medicine 01/26/23 Jaymie Phoenix NP [address] [place] [address] Nurse Practitioner Family Medicine 05/13/23 College Administrator Relationship Specialty Start Date End Date Rohan Rodríguez MD [address] [place] [address] PCP - General Family Medicine 05/13/23 Jaymie Phoenix NP [address] [place] [address] Nurse Practitioner Family Medicine 01/26/23 Jaymie Phoenix NP [address] [place] [address] Nurse Practitioner Family Medicine 05/13/23 College Administrator Relationship Specialty Start Date End Date Rohan Rodríguez MD [address] [place] [address] PCP - General Family Medicine 05/13/23 Jaymie Phoenix NP [address] [place] [address] Nurse Practitioner Family Medicine 01/26/23 Jaymie Phoenix NP [address] [place] [address] Nurse Practitioner Family Medicine 05/13/23 College Administrator Relationship Specialty Start Date End Date Rohan Rodríguez MD [address] [place] [address] PCP - General Family Medicine 05/13/23 Jaymie Phoenix NP [address] [place] [address] Nurse Practitioner Family Medicine 01/26/23 Jaymie Phoenix NP [address] [place] [address] Nurse Practitioner Family Medicine 05/13/23 College Administrator Relationship Specialty Start Date End Date Rohan Rodríguez MD [address] [place] [address] PCP - General Family Medicine 05/13/23 Jaymie Phoenix NP [address] [place] [address] Nurse Practitioner Family Medicine 01/26/23 Jaymie Phoenix NP [address] [place] [address] Nurse Practitioner Family Medicine 05/13/23 College Administrator Relationship Specialty Start Date End Date Rohan Rodríguez MD [address] [place] [address] PCP - General Family Medicine 05/13/23 Jaymie Phoenix NP [address] [place] [address] Nurse Practitioner Family Medicine 01/26/23 Jaymie Phoenix NP [address] [place] [address] Nurse Practitioner Family Medicine 05/13/23 College Administrator Relationship Specialty Start Date End Date Rohan Rodríguez MD [address] [place] [address] PCP - General Family Medicine 05/13/23 Jaymie Phoenix NP [address] [place] [address] Nurse Practitioner Family Medicine 01/26/23 Jaymie Phoenix NP [address] [place] [address] Nurse Practitioner Family Medicine 05/13/23 College Administrator Relationship Specialty Start Date End Date Roahn Rodríguez MD [address] [place] [address] PCP - General Family Medicine 05/13/23 Jaymie Phoenix NP [address] [place] [address] Nurse Practitioner Family Medicine 01/26/23 Jaymie Phoenix NP [address] [place] [address] Nurse Practitioner Family Medicine 05/13/23 College Administrator Relationship Specialty Start Date End Date Rohan Rodríguez MD [address] [place] [address] PCP - General Family Medicine 05/13/23 Jaymie Phoenix NP [address] [place] [address] Nurse Practitioner Family Medicine 01/26/23 Jaymie Phoenix NP [address] [place] [address] Nurse Practitioner Family Medicine 05/13/23 College Administrator Relationship Specialty Start Date End Date Rohan Rodríguez MD [address] [place] [address] PCP - General Family Medicine 05/13/23 Jaymie Phoenix NP [address] [place] [address] Nurse Practitioner Family Medicine 01/26/23 Jaymie Phoenix NP [address] [place] [address] Nurse Practitioner Family Medicine 05/13/23 College Administrator Relationship Specialty Start Date End Date Rohan Rodríguez MD [address] [place] [address] PCP - General Family Medicine 05/13/23 Jaymie Phoenix NP [address] [place] [address] Nurse Practitioner Family Medicine 01/26/23 Jaymie Phoenix NP [address] [place] [address] Nurse Practitioner Family Medicine 05/13/23 College Administrator Relationship Specialty Start Date End Date Rohan Rodríguez MD [address] [place] [address] PCP - General Family Medicine 05/13/23 Jaymie Phoenix NP [address] [place] [address] Nurse Practitioner Family Medicine 01/26/23 Jaymie Phoenix NP [address] [place] [address] Nurse Practitioner Family Medicine 05/13/23 College Administrator Relationship Specialty Start Date End Date Rohan Rodríguez MD [address] [place] [address] PCP - General Family Medicine 05/13/23 Jaymie Phoenix NP [address] [place] [address] Nurse Practitioner Family Medicine 01/26/23 Jaymie Phoenix NP [address] [place] [address] Nurse Practitioner Family Medicine 05/13/23 College Administrator Relationship Specialty Start Date End Date Rohan Rodríguez MD [address] [place] [address] PCP - General Family Medicine 05/13/23 Jaymie Phoenix NP [address] [place] [address] Nurse Practitioner Family Medicine 01/26/23 Jaymie Phoenix NP [address] [place] [address] Nurse Practitioner Family Medicine 05/13/23 College Administrator Relationship Specialty Start Date End Date Rohan Rodríguez MD [address] [place] [address] PCP - General Family Medicine 05/13/23 Jaymie Phoenix NP [address] [place] [address] Nurse Practitioner Family Medicine 01/26/23 Jaymie Phoenix NP [address] [place] [address] Nurse Practitioner Family Medicine 05/13/23 College Administrator Relationship Specialty Start Date End Date Rohna Rodríguez MD [address] [place] [address] PCP - General Family Medicine 05/13/23 Jaymie Phoenix NP [address] [place] [address] Nurse Practitioner Family Medicine 01/26/23 Jaymie Phoenix NP [address] [place] [address] Nurse Practitioner [facility] Medicine 05/13/23 College Administrator Relationship Specialty Start Date End Date Rohan Rodríguez MD [address] [place] [address] PCP - General Family Medicine 05/13/23 Jaymie Phoenix NP [address] [place] [address] Nurse Practitioner [facility] 01/26/23 Jaymie Phoenix NP [address] [place] [address] Nurse Practitioner [facility] [...] BE BASED ON THE PRIMARY CLINICAL RECORDS. [facility]. provides no warranty or guarantee of the accuracy or completeness of information in this document.
[2024-11-20 10:02] VITALS: BP 103/75; PULSE 77; TEMP 36.3; O2SAT 94
[2024-11-20 10:36] VITALS: BP 129/76; PULSE 81; O2SAT 97
[2024-11-20 10:37] VITALS: BP 135/65; PULSE 50; O2SAT 94
[2024-11-20] MEDS: 0.9 % SODIUM CHLORIDE 10 ML SYRINGE - SALINE FLUSH INJ (10:39)
[2024-11-20] MEDS: BUPIVACAINE HCL 0.25% PF 25 MG/10 ML VIAL INJ (10:39)
[2024-11-20] MEDS: IOHEXOL 240 MG/ML - 10 ML VIAL 24 MG INJ (10:39)
[2024-11-20] MEDS: LIDOCAINE HCL 2% 400 MG/20 ML MDV INJ (10:39)
[2024-11-20] MEDS: METHYLPREDNISOLONE ACETATE 80 MG/ML VIAL INJ (10:40)
--- NOTE | 2024-11-20 10:42 | P.ON_ITS ---
Date of procedure: 11/20/24 Pre-op diagnosis: Pain due to lumbar stenosis with neurogenic claudication Post-op diagnosis: same as pre-op Procedure: Procedure: Left L4-5, L5-S1 transforaminal epidural steroid injection Medications: Bupivacaine 0.25% 2cc, lidocaine 2% 1cc, depomedrol 80mg The patient was seen and examined in the preoperative holding area.? Informed consent was obtained and placed on the chart.? Patient was brought to the medical procedure unit and placed in the prone position where a timeout was completed verifying the correct patient, procedure site, position, and planned special equipment using sterile aseptic technique.? Under direct fluoroscopic visualization a 25-gauge Quincke tipped spinal needle was advanced to the designated neural foramen where contrast dye was injected to show adequate spread.? The needle was inserted at level left L4-5. There was no evidence of vascular or adverse uptake.? Epidural spread was appreciated.? The above- mentioned injectate was then placed in a 1.5 mL aliquot preceded by negative aspiration.? The needle was removed. The needle was inserted and the procedure repeated at level left L5-S1.? The surgery site was covered.? Patient was taken to the postprocedural recovery area and monitored for an appropriate length of time before found suitable for discharge in the accompaniment of a responsible adult. Anesthesia: Local Surgeon: Mayela Merchant Pathology: none sent Condition: stable Disposition: no change
== END 2024-11-20 10:50 | disposition home or self-care (01) ==
PROVIDERS: PCP Nurse Practitioner; Visit Provider Anesthesiology
DX: M48.062 Spinal stenosis, lumbar region with neurogenic claudication (principal); M54.50 Low back pain, unspecified
CPT/HCPCS: 64483; 64484; J0665; J1010; Q9966

== ENCOUNTER 2024-11-29 13:48 | Outpatient (OUT) | payer MEDICARE, SELFPAY ==
--- OUTSIDE RECORDS SUMMARY | 2024-11-29 13:52 | XMS_ITS | Clinical Summary ---
Author Organization [facility] Address [address] [place] [address] Care Team Providers Care Lean Manufacturing Leader Name Role Phone Jaymie Phoenix Linda HARPER Primary Care Provider [phone] Allergies Active AllergyReactionsCriticalityNoted DateCommentsPenicillinsSwelling 03/10/2011 Medications MedicationSigDispense QuantityRefillsLast FilledStart DateEnd DateStatus pregabalin (LYRICA) 150 mg ORAL capsule Take 1 capsule by mouth twice daily.ctive duloxetine (CYMBALTA) 30 mg ORAL capsule Take 1 capsule by mouth twice daily.ctive traZODONE 150 mg ORAL tablet Take 1 tablet by mouth daily at bedtime.ctive meclizine 12.5 mg tab Take 12.5 mg by mouth three times daily.Active propranolol 60 mg tablet Take 60 mg by mouth once daily.Active Active Problems ProblemNoted DateDiagnosed DateHTN (hypertension)03/10/2011GERD (gastroesophageal reflux disease)03/10/20110256Pvdxkw55/31/2012Elevated SGOT (AST) 03/10/2011Fibromyalgia /31/2012bnormal thyroid blood test, past xpnthum7503/10/2011 Overview (03/10/2011): 6 months ago, normal from 02/10/2011 Smoking yghqxcf2903/10/2011 Social History Tobacco UseTypesPacks/DayYears UsedDateSmoking Tobacco: NeverSmokeless Tobacco: NeverAlcohol UseStandard Drinks/WeekCommentsNot Asked0 (1 standard drink = 0.6 oz pure alcohol)CommentsUnknownSex and Gender InformationValueDate RecordedSex Assigned at BirthNot on fileLegal ZrqFpirtn28/02/2012 10:13 AM EST Gender IdentityNot on fileSexual OrientationNot on file Last Filed Vital Signs Vital SignReadingTime TakenCommentsBlood Jkgynsbo453/8505 1:02 PM EDT Wbgyc544306/08/2013 1:02 PM EDTTemperature--Respiratory Zpmp489606/08/2013 1:02 PM EDTOxygen Bvjtpbrvpx89%06/08/2013 1:02 PM EDTInhaled Oxygen Concentration-- Fgedtb50.8 kg (187 lb)06/08/2013 1:02 PM WVHVfxuha905.6 cm (5' 6 )06/08/2013 1:02 PM EDTBody Mass Index30.18006/08/2013 1:02 PM EDT Plan of Treatment Health MaintenanceDue DateLast DoneCommentsAnxiety Bejwhnndf54/09/1982Depression Kjzfzfato49/09/1982HIV Keoywhbvz46/09/1982DTaP,Tdap,Td Vaccine (1 - Tdap) 08/16/1982Cervical Cancer Occjndkzp91/09/1985Mammogram Dnoverobh09/09/2004CT Eacxknqqwely34/09/2009Cologuard (FIT-DNA)08/16/20080353Jbyyrxwyfyf41/09/2009 Colorectal Cancer Ptgowfwuk42/09/2009Diabetes Xajxdzecv14/09/2009Fecal Occult Blood08/16/2008Lipid Suhijmbsy64/09/8127Gsuxhkuztdfcv21/09/2009Pneumococcal Vaccine: 50+ (1 of 1 - PCV)08/16/2013Shingrix Vaccine (1 of 2)08/16/2013Covid-19 Vaccine (1 - season)2024Influenza Vaccine (#1)2024RSV Vaccine (1 - 1-dose 75+ series)08/16/2038Hepatitis C ScreeningCompleted 03/10/2011 Procedures Procedure NamePriorityDate/TimeAssociated DiagnosisCommentsHEP REMOTE PANEL BL Rxiqbcv1803/10/2011 11:21 AM EST Elevated SGOT (AST) Tattoo Fatigue from Last 3 Months or Most Recently Relevant to Health Maintenance Results * (ABNORMAL) HEP REMOTE PANEL BL (03/10/2011 11:21 AM EST)ComponentValueRef RangeTest MethodAnalysis TimePerformed AtPathologist SignatureHep B Core Ab, TotalPositive(A)[facility]GATC[facility]ATORYHep C Antibody IANegative NEGATCLEVELAND [facility] MAIN LABORATORYHBsAgNegativeNEGATCLEVELAND [facility] MAIN LAB[facility]ORYHep B Surface Ab, QualNegativeNEGATCLEVELAND CLINIC [facility] Comment: ? A negative Hepatitis B Surface Antibody is indicative of: 1)no prior exposure to HBV, 2)lack of antibody response to an acute or chronic HBV infection, 3)lack of antibody response to HBV vaccination, or, 4)loss of immunity that followed either vaccination or infection. Specimen (Source)Anatomical Location / LateralityCollection Method / Volume Collection TimeReceived TimeBlood specimen (specimen)BLOOD SPECIMEN / Unknown 03/10/2011 11:21 AM EST03/10/2011 11:27 AM EST Narrative Authorizing ProviderResult TypeResult StatusFeiban Singer MDLABORATORYFinal ResultPerforming OrganizationAddressCity/State/ZIP CodePhone Number [facility] [address] [place] [address] from Last 3 Months or Most Recently Relevant to Health Maintenance Insurance * Guarantor: Agatha Gagnon TypeRelation to PatientDate of BirthPhone Billing AddressSelf [id number] 1965 [address] [address] Care Teams Team MemberRelationshipSpecialtyStart DateEnd Date Jaymie Phoenix, DRILL FOREMAN [address] [place] [address] [facility] - [facility]04/10/13
--- OUTSIDE RECORDS SUMMARY | 2024-11-29 13:53 | XMS_ITS | Clinical Summary ---
Author Organization [facility] Address [address] [place] [address] Care Team Providers Care Gi Physician Name Role Phone Jaymie Phoenix LIQUID FERTILIZER SERVICER Unavailable [phone] Rohan Rodríguez MD Primary Care Provider [phone] Jaymie Phoenix LIQUID FERTILIZER SERVICER Unavailable [phone] Allergies Active AllergyReactionsCriticalityNoted DateCommentsPenicillinsHives,Shortness of breath,YormulyzWpaq14/27/2023 Shortness of breath RzyiizfkhsVfubnajSbcdwr76/27/2023 Itchy eyes and shortness of breath Medications MedicationSigDispense QuantityRefillsLast FilledStart DateEnd DateStatus cholecalciferol (Vitamin D-3) 125 MCG (5000 UT) tablet as directed OrallyActive ibuprofen 800 MG tablet Take 800 mg by mouth every 8 (eight) hours if ybgjis8201/08/2023ctive lamoTRIgine (LaMICtal) 200 MG tablet Take 200 mg by mouth at bedtimeActive prazosin (Minipress) 2 MG capsule Take 2 mg by mouth at bedtimeActive ipratropium-albuterol (Duo-Neb) 0.5-2.5 mg/3 mL nebulizer solution Take 3 mL by nebulization every 6 (six) hours if needed for wheezing or shortness of eomtfy0012/28/2023ctive albuterol (2.5 MG/3ML) 0.083% nebulizer solution Take 2.5 mg by nebulization every 6 (six) hours if needed for shortness of breath or yozwzewf08/15/2024ctive lamoTRIgine (LaMICtal) 100 MG tablet Take 100 mg by mouth DailyActive prazosin (Minipress) 1 MG capsule Take 1 mg by mouth at /08/2024Active albuterol HFA 90 mcg/act inhaler Indications:COPD mixed type (HCC)Inhale 2 puffs every 6 (six) hours if needed for shortness of breath or wheezing 18 g 5Active QUEtiapine (SEROquel) 300 MG tablet Take 300 mg by mouth at cvwuksn57/03/2025Active amitriptyline (Elavil) 100 MG tablet Indications:FibromyalgiaTake 0.5 tablets (50 mg) by mouth at bedtime 45 tablet 5Active bumetanide (Bumex) 0.5 MG tablet Indications:Bilateral lower extremity edemaTake M W F only 27 tablet tive cetirizine (ZyrTEC) 10 MG tablet Indications:Environmental and seasonal allergiesTake 1 tablet (10 mg) by mouth Daily 90 tablet 5Active montelukast (Singulair) 10 MG tablet Indications:Environmental and seasonal allergiesTake 1 tablet (10 mg) by mouth at bedtime 90 tablet tive pregabalin (Lyrica) 100 MG capsule Indications:FibromyalgiaTake 1 capsule (100 mg) by mouth in the morning and 1 capsule (100 mg) before bedtime. 60 capsule 5Active propranolol (Inderal) 40 MG tablet Indications:Personal history of other diseases of the nervous system and sense organsTake 1 tablet (40 mg) by mouth in the morning and 1 tablet (40 mg) before bedtime. 180 tablet 5Active varenicline (Chantix) 1 MG tablet Indications:Tobacco dependenceTake 1 tablet (1 mg) by mouth in the morning and 1 tablet (1 mg) before bedtime. Take with full glass of water. 60 tablet 5Active Varenicline Tartrate, Starter, 0.5 MG X 11 & 1 MG X 42 tablet therapy pack Indications:Tobacco dependenceTake 1 tablet by mouth Daily 0.5mg once a day for 3 days, then 0.5mg twice a day for 4 days, then 1mg twice a day 53 each 5Active cyclobenzaprine (Flexeril) 10 MG tablet Indications:Fibromyalgia Syndrome,Muscle SpasmTake 5 mg by mouth 3 (three) times a day as needed for muscle spasmsActive omeprazole (PriLOSEC) [address] capsule Indications:Gastro-esophageal reflux disease without esophagitisTake 1 capsule (40 mg) by mouth Daily 30 capsule tive atorvastatin (Lipitor) 20 MG tablet Indications:Mixed hyperlipidemiaTake 1 tablet (20 mg) by mouth at bedtime 30 tablet tive spironolactone (Aldactone) 50 MG tablet Indications:Localized edemaTake 1 tablet (50 mg) by mouth in the morning. 30 tablet tive tiZANidine (Zanaflex) 4 MG tablet Indications:FibromyalgiaTake 1 tablet (4 mg) by mouth every 12 (twelve) hours if needed for muscle spasms 60 tablet 5Active Active Problems ProblemNoted DateDiagnosed DateAcute back pain with uuvghaok64/21/2025Screening for lung nwdesv5207/31/2024 Assessment & Plan (07/31/2024 11:24 AM EDT): [...] of smoking cessation. Chronic kidney disease, stage 3a06/07/2024 Assessment & Plan (07/31/2024 11:21 AM EDT): Check Chem 8 Environmental and seasonal tdmyaoqmm96/12/2487Zkpodx79/02/2025 Assessment & Plan (07/31/2024 7:12 AM EDT): Will refer to neuro for this Differentials: side effects med, PD? Assessment & Plan (02/10/2024 5:13 PM EST): Will refer to neuro for this Differentials: side effects med, PD? COPD with acute heqjilhtxarm89/25/2024 Assessment & Plan (02/10/2024 7:12 AM EST): [...] nebulizers Refer to pulmonary Encounter for subsequent annual wellness visit (AWV) in Medicare patient 06/03/2023 [...] up yearly and prn WINSOME (obstructive sleep apnea)05/13/2023 Assessment & Plan (07/31/2024 7:05 AM EDT): [...] be partial cause of swelling Acute megaloblastic mfbbyk3102/18/2023nxiety and gewxdwuvem23/11/2024 Assessment & Plan (07/31/2024 7:11 AM EDT): Continue with Dr Hernandez Assessment & Plan (06/03/2023 6:38 PM EDT): Continue with Dr Hernandez Hyperplastic polyp of sigmoid colon02/18/2023Internal derangement of left knee 02/18/2023Osteoarthritis of knee02/18/20233812Tkydvqurvf88/11/2024atellofemoral syndrome of left knee02/18/2023ositive colorectal cancer screening using Cologuard test02/18/2023Vitamin B12 xxyacejnny65/11/2024Vitamin D deficiency 02/18/2023ody mass index (BMI) 40.0-44.9, adult02/18/2023Morbid (severe) obesity due to excess inthkjsg93/11/2024 Assessment & Plan (07/31/2024 11:22 AM EDT): [...] to exercise on regular basis Chronic lumbar pain02/18/2023Mixed jahonwqsdortlr29/19/2023 Assessment & Plan (07/31/2024 7:11 AM EDT): On statin therapy Check labs yearly and prn dose changes Assessment & Plan (01/03/2024 6:48 AM EST): On statin therapy, check labs Assessment & Plan (01/26/2023 10:36 AM EST): Check labs Tobacco goxfknnytn31/19/2023 Overview (05/31/2023): Low dose CT scan chest: 05/31/23: WNL Assessment & Plan (07/31/2024 11:23 AM EDT): The patient has been advised of the risks of continued smoking: stroke, [place], all forms of cancer, lung disease, and . Options for quitting smoking include: cold turkey, hypnosis, acupuncture, nicotine replacement meds(gum, lozenges, and patches), Buproprion, and Varenicline. At this time pt is encouraged to evaluate their goals for wanting to quit smoking, and reach out toprovider when ready to start this process Would like chantix, dr hernandez said ok to trial, just needs to monitor for worsening in depression Fu in 8 weeks Assessment & Plan (02/10/2024 7:14 AM EST): The patient has been advised of the risks of continued smoking: stroke, [place], all forms of cancer, lung disease, and . Options for quitting smoking include: cold turkey, hypnosis, acupuncture, nicotine replacement meds(gum, lozenges, and patches), Buproprion, and Varenicline. At this time pt is encouraged to evaluate their goals for wanting to quit smoking, and reach out toprovider when ready to start this process Assessment & Plan (01/03/2024 6:46 AM EST): The patient has been advised of the risks of continued smoking: stroke, [place], all forms of cancer, lung disease, and . Options for quitting smoking include: cold turkey, hypnosis, acupuncture, nicotine replacement meds(gum, lozenges, and patches), Buproprion, and Varenicline. At this time pt is encouraged to evaluate their goals for wanting to quit smoking, and reach out toprovider when ready to start this process Assessment & Plan (06/03/2023 6:39 PM EDT): The patient has been advised of the risks of continued smoking: stroke, [place], all forms of cancer, lung disease, and . Options for quitting smoking include: cold turkey, hypnosis, acupuncture, nicotine replacement meds(gum, lozenges, and patches), Buproprion, and Varenicline. At this time pt is encouraged to evaluate their goals for wanting to quit smoking, and reach out toprovider when ready to start this process Assessment [...] of the risks of continued smoking: stroke, [place], all forms of cancer, lung disease, and . Options for quitting smoking include: cold turkey, hypnosis, acupuncture, nicotine replacement meds(gum, lozenges, and patches), Buproprion, and Varenicline. At this time pt is encouraged to evaluate their goals for wanting to quit smoking, and reach out toprovider when ready to start this process Assessment & Plan (01/26/2023 10:37 AM EST): Recommend quitting, pt declines Primary kdnokushylkv98/19/2023 Assessment & Plan (07/31/2024 7:06 AM EDT): [...] Stable on current meds Bilateral lower extremity edema01/26/2023 Assessment & Plan (07/31/2024 11:22 AM EDT): [...] EST): Stable on current meds COPD mixed type01/26/2023 Assessment & Plan (07/31/2024 11:21 AM EDT): [...] mannie Will cover with atb as well Qhbngiyyvzcm85/27/2023 Assessment & Plan (07/31/2024 11:22 AM EDT): Continue with Madiha ELIZABETH reviewed Assessment & Plan (01/03/2024 6:46 AM EST): Continue with Madiha ELIZABETH reviewed Assessment & Plan (06/03/2023 6:40 PM EDT): No changes in current medications Abnormal thyroid blood test03/10/2011 Overview (02/18/2023): 6 months ago, normal from 02/10/2011 Elevated SGOT (AST)03/10/2011GERD (gastroesophageal reflux disease)03/10/2011 Assessment & Plan (07/31/2024 7:06 AM EDT): Recommendations: freq small meals, nothing to eat or drink at least 2 hours prior to bed, limit caffeine, alcohol, as well as spicy foods Meds to limit or avoid if possible: NSAIDS Elevate HOB if possible Current med: omeprazole Insurance correspondance about alf use of PPI Pt has been counseled on the risks of alf use, would like to continue Assessment & Plan (02/10/2024 5:12 PM EST): Recommendations: freq small meals, nothing to eat or drink at least 2 hours prior to bed, limit caffeine, alcohol, as well as spicy foods Meds to limit or avoid if possible: NSAIDS Elevate HOB if possible Current med: omeprazole Insurance correspondance about termite treater use of PPI Pt has been counseled on the risks of termite treater use, would like to continue Resolved Problems ProblemNoted DateDiagnosed DateResolved DateCAP (community acquired pneumonia) Edema of right lower walxxvqhu28 Assessment & Plan (06/03/2023 6:39 PM EDT): Significant improvement in swelling, however d/t renal functions, we are going to cut back to [facility] Recheck labs in 4 weeks, order given Assessment & Plan (03/25/2023 4:34 PM EST): Will order labs: CBC, Chem 14, and d dimer Check stat US RLE, negative for clot Shortness of / Assessment & Plan (03/25/2023 4:32 PM EST): Chest xray Acute pain of left knee/arbon monoxide cwjdgmoh61/11/2024 03/16/2023Hearing loss/Lower extremity edema02/18/2023 03/16/2023Tobacco userMigraines Gkchzwjbtrlkoe05/11/202402/lass 3 severe obesity due to excess calories without serious comorbidity with body mass index (BMI) of 40.0 to 44.9 in adult /05/2023Other acute mheawkiac98/07/2023Open wound of second toe Assessment & Plan (01/26/2023 10:50 AM EST): Atb, and epsom salt soaks Fu in 4 weeks Open wound of left foot/05/2023 Assessment & Plan (01/26/2023 10:53 AM EST): Soak foot epsom salt Atb Fu in 4 weeks Migraine headache without aura1/05/2023 Assessment & Plan (01/26/2023 10:36 AM EST): Stable on current meds no changes needed Essential gxlcciqnsbkr11TattooSmoking cjjznkq89Fibromyalgia yqcmfxxa17HTN (hypertension) Encounters DateTypeDepartmentCare NxcvAqaosasfdvw84/22/2025Refill [facility] [address] [place] [id number] Jaymie Phoenix NP Gastro-esophageal reflux disease without esophagitis; Mixed hyperlipidemia ; Fibromyalgia; Localized edema09/19/2024linisync Result Encounter [facility] External Department Unsolicited Provider, Generic External Data 08/31/2024 1:00 PM EDTConsult [facility] [address] [place] [address] Nat Henderson DO WINSOME (obstructive sleep apnea) (Primary Dx); Cigarette oyqsbu0708/31/2024amboo flowsheet [facility] [address] [place] [address] Nat Henderson DO 08/31/20244874Xpdueq55/22/2025Refill [facility] [address] [place] [address] Jaymie Phoenix NP Acute back pain with sciatica, unspecified laterality (Primary Dx)from Last 3 Months Immunizations ImmunizationAdministration DatesNext Elisa HQJE-JdH-104/07/2021Tdap 08/29/2023 Social History Tobacco UseTypesPacks/DayYears UsedDateSmoking Tobacco: Every WjgUglwjhblbr591 Smokeless Tobacco: Never Tobacco Cessation:Ready to Q uit: No; Counseling Given: Yes Comments:11-20 cigarettes/day Alcohol UseStandard Drinks/WeekCommentsNot Currently0 (1 standard drink = 0.6 oz pure alcohol)sociallyHumiliation, Afraid, Rape, and Kick questionnaireAnswerDate RecordedWithin the last year, have you been afraid of your partner or ex-partner?No06/03/2023Within the last year, have you been humiliated or emotionally abused in other ways by your partner or ex-partner?No06/03/2023 Within the last year, have you been kicked, hit, slapped, or otherwise physically hurt by your partner or ex-partner?No06/03/2023Within the last year, have you been raped or forced to have any kind of sexual activity by your part ner or ex-partner?No06/03/2023Social Connection and Isolation PanelAnswerDate RecordedIn a typical week, how many times do you talk on the phone with family, friends, or neighbors?Twice a week05/13/2023How often do you get together with friends or relatives?Twice a week05/13/2023How often do you attend buddhist or mandaeism services?Never05/13/2023o you belong to any clubs or organizations such as buddhist groups, unions, fraternal or athletic groups, or school groups?No 05/13/2023How often do you attend meetings of the clubs or organizations you belong to?Never05/13/2023re you , , , , never , or living with a partner?Mmkyehe6005/13/2023UDIT-CAnswerDate RecordedQ1: How often do you have a drink containing alcohol?Monthly or less06/03/2023Q2: How many drinks containing alcohol do you have on a typical day when you are drinking?1 or Q3: How often do you have six or more drinks on one occasion?Never06/03/2023Overall Financial Resource Strain (CARDIA)AnswerDate RecordedHow hard is it for you to pay for the very basics like food, housing, medical care, and heating?Somewhat hard05/13/2023HQ-2AnswerDate RecordedPatient Health Questionnaire-2 Atftf215Finbear river valley hospital [facility] Occupational Health - Occupational Stress QuestionnaireAnswerDate RecordedDo you feel stress - tense, restless, nervous, or anxious, or unable to sleep at night because your mind is troubled all the time - these days?Only a ikiutl3105/13/2023Exercise Vital SignAnswerDate RecordedOn average, how many days per week do you engage in moderate to strenuous exercise (like a brisk walk)?0 days06/03/2023On average, how many minutes do you engage in exercise at this level?0 min06/03/2023Hunger Vital SignAnswerDate RecordedWithin the past 12 months, you worried that your food would run out before you got the money to buymore.Sometimes true05/13/2023 Within the past 12 months, the food you bought just didn't last and you didn't have money to get more.Often true05/13/2023RAPARE - TransportationAnswerDate RecordedIn the past 12 months, has lack of transportation kept you from medical appointments or from getting medications?No06/03/2023In the past 12 months, has lack of transportation kept you from meetings, work, or from getting things needed for daily living?No06/03/2023Housing Stability Vital SignAnswerDate RecordedIn the last 12 months, was there a time when you were not able to pay the mortgage or rent on time?Yes05/13/2023In the last 12 months, how many places have you lived?In the last 12 months, was there a time when you did not have a steady place to sleep or slept in ashelter (including now)?No 04/04/2024CommentsUnknownSex and Gender InformationValueDate RecordedSex Assigned at BirthNot on fileLegal CboQdraxg25/15/2023 7:27 PM EDTGender Identity Not on fileSexual OrientationNot on file Last Filed Vital Signs Vital SignReadingTime TakenCommentsBlood Gzkmlbiw114/6407 1:00 PM EDT Rvgcb5018 1:00 PM LNTLctucqvmdya79.7 ??C (98.1 ??F)07/31/2024 10:09 AM EDTRespiratory Mmem726507/31/2024 10:09 AM EDTOxygen Ziasxwdyrl60%08/31/2024 1:00 PM EDTInhaled Oxygen Concentration--Azaejd696 kg (245 lb)08/31/2024 1:00 PM EDT Ctmaaj145.1 cm (5' 5 )02/10/2024 1:31 PM ESTBody Mass Index40.77002/10/2024 1:31 PM EST Plan of Treatment DateTypeDepartmentCare Team (Latest Contact Info)Uvnhyhsgcri52/30/2025 1:45 PM EDTOffice Visit [facility] [address] [place] [address] Nat Henderson, DO [address] [place] [address] Health MaintenanceDue DateLast DoneCommentsCT Wwthoxllltrc70/09/1964FIT 1965FOBT1965 1901Ffydwrrdawpdd86/09/1964Pap Smear08/16/1984HPV/Cotest 08/16/1993Influenza Vaccine (#1)2024FIT-DNA5102/25/2021, 06/09/20177840Tvfznxyyt17 (Patient Refused), 03/25/2023 (Patient Refused)Pndznsctzke98, 02/25/2022olorectal Cancer Screening 02/26/2032ervical Cancer ScreeningDiscontinued Procedures Procedure NamePriorityDate/TimeAssociated DiagnosisCommentsXR LUMBAR SPINE 6V W BZSHUYY8909/19/2024 2:33 PM EDT from Last 3 Months Results * XR LUMBAR SPINE 6V W BENDING (09/19/2024 2:33 PM EDT)Anatomical Region LateralityModalityOtherSpecimen (Source)Anatomical Location / Laterality Collection Method / VolumeCollection TimeReceived Time09/19/2024 2:33 PM EDT Narrative 09/19/2024 2:36 PM EDT [facility] ?[address] ? [place] [address] ?XRay Report ? Signed ? Patient: FRANKY SRINIVASAN I ?MR#: [id number] ?? : 1965 ?Acct:[id number] ?? Age/Sex: 59 / F ?ADM Date: 09/19/24 ?? Loc: RAD ? Attending Dr: Estelle Lozano LIQUID FERTILIZER SERVICER ? Ordering Physician: Estelle Lozano NP ?? Date of Service: 09/19/24 ?? Procedure(s): XR lumbar spine 6V w bending ?? Accession Number(s): [id number] ? cc: Jaymie Phoenix NP; Estelle Lozano NP ? [facility] ? [address] ? [place] [address] ? Patient Name: ?? FRANKY SRINIVASAN ? MRN: [employer]:[id number] ? date: 1965 ?Sex: F ?? Assigned Patient Location: RAD ?? Current Patient Location: RAD ?? Accession/Order Number: [id number] ?? Exam Date: 09/19/2024 ??14:32 ?Report Date: 09/19/2024 ??14:33 ? At the request of: ?? ESTELLE ??MARTA ??LIQUID FERTILIZER SERVICER ? Procedure: ??XR lumbar spine 6V w bending ? LUMBAR SPINE - 6 views ? CLINICAL HISTORY: Lumbar stenosis ? COMPARISON: None ? FINDINGS: Vertebral heights appear maintained. ??Mild diffuse degenerative disc ?? disease with relative sparing of L4-L5 disc level.. ??No pathological motion on ?? flexion or extension views. ??SI joints demonstrate degenerative change. ? XR/XR lumbar spine 6V w bending ?? IMPRESSION: ? MILD DIFFUSE DEGENERATIVE DISC DISEASE WITH RELATIVE SPARING OF THE L4-L5 DISC ?? LEVEL. ? Impression dictated by: Joaquin Chatman Jr., D.O. ??09/19/2024 2:33 PM ? Dictation Location: RADIO-PC-23 ? Electronically authenticated by: [id number] ??Y ?? Date: 09/19/2024 ??14:33 ? Dictated By: ?Joaquin Chatman M.D. ? Signed By: ?09/19/24 1436 ? DD/ 1433 ? TD/TT: ? Sales Recruiting Coordinator: Procedure Note Radiology, Radiologist, MD - 09/19/2024 [place] [address] XRay Report Signed Patient: FRANKY SRINIVASAN IMR#: [id number] : 1965Acct:[id number] Age/Sex: 59 / FADM Date: 09/19/24 Loc: [facility] Attending Dr: Estelle Lozano NP Ordering Physician: Estelle Lozano NP Date of Service: 09/19/24 Procedure(s): XR lumbar spine 6V w bending Accession Number(s): [id number] cc: Jaymie Phoenix LIQUID FERTILIZER SERVICER; Estelle Lozano NP The [place] [address] Patient Name: FRANKY SRINIVASAN MRN: [id number] date: 1965 Sex: F Assigned Patient Location: [facility] Current Patient Location: [facility] Accession/Order Number: [id number] Exam Date: 09/19/2024 14:32 Report Date: 09/19/2024 14:33 At the request of: ESTELLE LOZANO NP Procedure: XR lumbar spine 6V w [...] LEVEL. Impression dictated by: Joaquin Chatman Jr., D.OCindy 09/19/2024 2:33 PM Dictation Location: [place] [address] Electronically authenticated by: [id number] Y Date: 4:33 Dictated By: Joqauin Chatman M.D. Signed By:09/19/24 1436 DD/ 1433 TD/TT: Sales Recruiting Coordinator: Authorizing ProviderResult TypeResult StatusGeneric External Data Provider [facility]NC IMAGINGFinal Result from Last 3 Months Insurance * Guarantor: Franky Srinivasan IAccount TypeRelation to PatientDate of PhoneBilling AddressPersonal/NzjcpxZkbo68/[birth year][address] [address] Care Teams Team MemberRelationshipSpecialtyStart DateEnd Date Rohan Rodríguez MD PCP - GeneralFamily Medicine05/13/23 Jaymie Phoenix NP Nurse PractitionerFamily Xxiqtzgx93/19/23 Jaymie Phoenix NP Nurse PractitionerFamily Medicine05/13/23
--- OUTSIDE RECORDS SUMMARY | 2024-11-29 13:53 | XMS_ITS | CCD ---
Author Organization [facility] Care Team Providers Care Gamb Cutter Name Role Phone JAYMIE PHOENIX Primary Care Physician Bryson FERRER Attending Unavailable JAYMIE PHOENIX Referring Unavailabl e NABIL, Bryson Hernandez Attending Unavailable Aichholz, Tracy L Referring Unavailable NILL, Bryson Hernandez Attending Unavailable NILL, Bryson Hernandez Attending Unavailable NILL, Bryson Hernandez Attending Unavailable AICHHOLZ, ACCOUNT DEVELOPMENT ASSOCIATE JAYMIE Primary Care Unavailable ALLAN ., DR JIM Mcdonnell Attending Unavailable ALLAN ., DR JIM Mcdonnell Admitting Unavailable ALLAN ., DR JIM Mcdonnell Consulting Unavailable ROBINSON ., GLENROY Admitting Unavailable GLENROY WORTHY Attending Unavailable SJ SOLER Consulting Unavailable AICHHOLZ, ACCOUNT DEVELOPMENT ASSOCIATE JAYMIE Primary Care Unavailable MENDEZ ., MR DEMETRIUS Admitting Unavailable MENDEZ ., MR DEMETRIUS Attending Unavailable AICHHOLZ, ACCOUNT DEVELOPMENT ASSOCIATE JAYMIE Primary Care Unavailable AICHHOLZ, ACCOUNT DEVELOPMENT ASSOCIATE JAYMIE Admitting Unavailable JUANITA, DR NADINE Caldwell Consulting Unavailable AICHHOLZ, ACCOUNT DEVELOPMENT ASSOCIATE JAYMIE Primary Care Unavailable AICHHOLZ, ACCOUNT DEVELOPMENT ASSOCIATE JAYMIE Attending Unavailable AICHHOLZ, ACCOUNT DEVELOPMENT ASSOCIATE JAYMIE Consulting Unavailable AICHHOLZ, ACCOUNT DEVELOPMENT ASSOCIATE JAYMIE Admitting Unavailable JUANITA, DR NADINE Caldwell Consulting Unavailable AICHHOLZ, ACCOUNT DEVELOPMENT ASSOCIATE JAYMIE Primary Care Unavailable AICHHOLZ, ACCOUNT DEVELOPMENT ASSOCIATE JAYMIE Attending Unavailable AICHHOLZ, ACCOUNT DEVELOPMENT ASSOCIATE JAYMIE Consulting Unavailable AICHHOLZ, ACCOUNT DEVELOPMENT ASSOCIATE JAYMIE Primary Care Unavailable NILL ., DR MASSEY Admitting Unavailable NILL ., DR MASSEY Attending Unavailable NILL ., DR MASSEY Consulting Unavailable SONDRA FELICIANO Consulting Unavailable ROBINSON ., GLENROY Admitting Unavailable ROBINSON ., GLENROY Attending Unavailable ROBINSON .GLENROY Consulting Unavailable AICHHOLZ, ACCOUNT DEVELOPMENT ASSOCIATE JAYMIE Primary Care Unavailable ALLAN ., DR JIM Mcdonnell Attending Unavailable ALLAN ., DR JIM Mcdonnell Consulting Unavailable ALLAN ., DR JIM Mcdonnell Admitting Unavailable AICHHOLZ, ACCOUNT DEVELOPMENT ASSOCIATE JAYMIE Primary Care Unavailable MARIA FERNANDA SOSA Consulting Unavailable ALLAN ., DR JIM Mcdonnell Attending Unavailable ALLAN ., DR JIM Mcdonnell Consulting Unavailable ALLAN ., DR JIM Mcdonnell Admitting Unavailable AICHHOLZ, ACCOUNT DEVELOPMENT ASSOCIATE JAYMIE Primary Care Unavailable ALLAN ., DR JIM Mcdonnell Admitting Unavailable ALLAN ., DR JIM Mcdonnell Attending Unavailable ALLAN ., DR JIM Mcdonnell Consulting Unavailable AICHHOLZ, ACCOUNT DEVELOPMENT ASSOCIATE JAYMIE Primary Care Unavailable ALLAN ., DR JIM Mcdonnell Admitting Unavailable ALLAN ., DR JIM Mcdonnell Attending Unavailable AICHHOLZ, ACCOUNT DEVELOPMENT ASSOCIATE JAYMIE Primary Care Unavailable THORNE ., JENNY Consulting Unavailable ALLAN ., DR JIM Mcdonnell Admitting Unavailable ALLAN ., DR JIM Mcdonnell Attending Unavailable ALLAN ., DR JIM Mcdonnell Consulting Unavailable AICHHOLZ, ACCOUNT DEVELOPMENT ASSOCIATE JAYMIE Primary Care Unavailable ALLAN ., DR JIM Mcdonnell Admitting Unavailable ALLAN ., DR JIM Mcdonnell Attending Unavailable ALLAN ., DR JIM Mcdonnell Consulting Unavailable AICHHOLZ, ACCOUNT DEVELOPMENT ASSOCIATE JAYMIE Primary Care Unavailable THORNE ., JENNY Consulting Unavailable ALLAN ., DR JIM Mcdonnell Admitting Unavailable ALLAN ., DR JIM Mcdonnell Attending Unavailable AICHHOLZ, ACCOUNT DEVELOPMENT ASSOCIATE JAYMIE Primary Care Unavailable ALLAN ., DR JIM Mcdonnell Attending Unavailable ALLAN ., DR JIM Mcdonnell Consulting Unavailable ALLAN ., DR JIM Mcdonnell Admitting Unavailable AICHHOLZ, ACCOUNT DEVELOPMENT ASSOCIATE JAYMIE Primary Care Unavailable LAKSHMIPATHY ., NARENDRANATH Consulting Evelyn vailable NILL ., DR MASSEY Consulting Unavailable NILL ., DR MASSEY Admitting Unavailable AICHHOLZ, ACCOUNT DEVELOPMENT ASSOCIATE JAYMIE Primary Care Unavailable NILL ., DR MASSEY Attending Unavailable AICHHOLZ, ACCOUNT DEVELOPMENT ASSOCIATE JAYMIE Admitting Unavailable AICHHOLZ, ACCOUNT DEVELOPMENT ASSOCIATE JAYMIE Attending Unavailable AICHHOLZ, ACCOUNT DEVELOPMENT ASSOCIATE JAYMIE Consulting Unavailable AICHHOLZ, ACCOUNT DEVELOPMENT ASSOCIATE JAYMIE Primary Care Unavailable CHET, DR MELISSA Hernandez Consulting Unavailable AICHHOLZ, ACCOUNT DEVELOPMENT ASSOCIATE JAYMIE Admitting Unavailable AICHHOLZ, ACCOUNT DEVELOPMENT ASSOCIATE JAYMIE Attending Unavailable AICHHOLZ, ACCOUNT DEVELOPMENT ASSOCIATE JAYMIE Consulting Unavailable AICHHOLZ, ACCOUNT DEVELOPMENT ASSOCIATE JAYMIE Primary Care Unavailable LORI FROST Consulting Unavailable ALLAN ., DR JIM Mcdonnell Attending Unavailable ALLAN ., DR JIM Mcdonnell Admitting Unavailable AICHHOLZ, ACCOUNT DEVELOPMENT ASSOCIATE JAYMIE Primary Care Unavailable AICHHOLZ, ACCOUNT DEVELOPMENT ASSOCIATE JAYMIE Primary Care Unavailable SAMSA ., MAGDALENA Admitting Unavailable SAMSA ., MAGDALENA Attending Unavailable SAMSA ., MAGDALENA Consulting Unavailable ALLAN ., DR JIM Mcdonnell Attending Unavailable ALLAN ., DR JIM Mcdonnell Admitting Unavailable ALLAN ., DR JIM Mcdonnell Consulting Unavailable AICHHOLZ, ACCOUNT DEVELOPMENT ASSOCIATE JAYMIE Primary Care Unavailable AICHHOLZ, ACCOUNT DEVELOPMENT ASSOCIATE JAYMIE Admitting Unavailable AICHHOLZ, ACCOUNT DEVELOPMENT ASSOCIATE JAYMIE Attending Unavailable AICHHOLZ, ACCOUNT DEVELOPMENT ASSOCIATE JAYMIE Consulting Unavailable AICHHOLZ, ACCOUNT DEVELOPMENT ASSOCIATE JAYMIE Primary Care Unavailable Aichholz LABORER HOISTING, Jaymie Unavailable Alma AMADOR, Primary Care Provider Aichholz LABORER HOISTING, Jaymie Unavailable Anne AMADOR, Rohan Primary Care Provider Aichholz LABORER HOISTING, Jaymie Unavailable Alphonse Damian Attending Unavailab Alphonse Todd Admitting Unavailab le Jaymie Phoenix J Primary Care Unavailable SAUMYA BACK Attending Unavailable AICHHOLZ, JAYMIE Referring Unavailable AICHHOLZ, JAYMIE Attending Unavailable NAT HENDERSON Attending Unavailable AICHHOLZ, JAYMIE Attending Unavailable AICHHOLZ, JAYMIE Attending Unavailable Aichholz LABORER HOISTING-C, Jaymie J Primary Care Provider [phone] Alphonse Damian MD Attending Provider Alban LABORER HOISTING-C, Jaymie Danielle Attending Provider Mayur AMADOR, Mayela Flanagan Attending Unavailable Allergies Allergy ClassificationReported Allergen(s)Allergy TypeDate of OnsetReaction(s) Facility (20 sources)Penicillins; Translations: [penicillins]Drug [phone] Dyspnea (finding), Weal (disorder), Hives, Shortness of breath, SwellingGeneral [place] (3 sources)predniSONE; Translations: [prednisone]Drug Jpxcjfr61-31-2186Wkjstvi (finding)[facility] [place] (1 source)prednisoLONEDrug AllergyThe [facility] (20 sources)PrednisonePropensity to adverse rfmgylseh68-57-4755CpwwylaHFYD Healthcare (1 source)PenicillinDrug Qkwpaed23-97-2919KlbybOqghrqymzSt. [facility] Comment on above:shortness of breath Medications Current Medications MedicationDrug Class(es)DatesSig (Normalized)Sig (Original)acetaminophen 325 mg / HYDROcodone bitartrate 5 mg oral tablet (3 sources)Opioid AgonistStart: 08-29-2024 End: 53-36-7312yqzt 1 tablet by mouth onceHYDROcodone-acetaminophen ([place]) 5- 325 MG tablet Indications: Acute back pain with sciatica, unspecified laterality Take 1 tablet by mouth every 12 (twelve) hours if needed for severe pain for up to10 days 20 tablet 08/29/2024 09/08/2024 Activealbuterol 0.83 mg/ml inhalation solution (20 sources)beta2-Adrenergic AgonistStart: 34-57-8716kixb 2.5 mg by inhalation every four to six hours as neededAlbuterol Sulfate 2.5 mg /3 mL (0.083 %) solution for nebulization Active 2.5 MG INHALATION EVERY 4-6 HOURS as needed October 28, 2024 12:00am Complies with drug therapyStart: 12-33-4535zaqn 1 puff(s) by inhalation every six hours as neededAlbuterol Sulfate 90 mcg/actuation HFA aerosol inhaler Active 2 PUFF INHALATION Every 6 hours as nee ded October 28, 2024 12:00am Complies with drug therapyStart: 04-19-2024 End: 94-84-1323lket 2 puff(s) by inhalation every six hours for wheezing albuterol HFA 90 mcg/act inhaler Indications: COPD mixed type (HCC) Inhale 2 puffs every 6 (six) hours if needed for shortness of breath or wheezing 18 g 04/19/2024 ActiveStart: 02-88-4427jamryztkw (2.5 MG/3ML) 0.083% nebulizer solution Take 2.5 mg by nebulization every 6 (six) hours ifneeded for shortness of breath or wheezing 12/24/2023 Activealbuterol 0.833 mg/ml / ipratropium bromide 0.167 mg/ml inhalation solution (20 sources)Anticholinergic, beta2-Adrenergic AgonistStart: 86-12-5012wsid 1 mL by inhalation every four to six hours as neededIpratropium-Albuterol 0.5 mg-3 mg(2.5 mg base)/3 mL solution for nebulization Active 3 ML INHALATION EVERY 4-6 HOURS as needed October 28, 2024 12:00am Complies with drug therapyStart: 58-16-7534borqxfbnmes-albuterol (Duo-Neb) 0.5-2.5 mg/3 mL nebulizer solution Take 3 mL by nebulization every 6 (six) hours if needed for wheezing or shortness of breath 12/28/2023 Activeamitriptyline hydrochloride 100 mg oral tablet (20 sources)Tricyclic AntidepressantStart: 82-59-0974Kkyszzovapqmo 100 mg tablet Active 50 MG PO Daily at bedtime October 28, 2024 12:00am Complies with drug therapyStart: 01-26-2024 End: 13-52-9941cfhz 0.5 tablet by mouth at bedtimeamitriptyline (Elavil) 100 MG tablet Indications: Fibromyalgia Take 0.5 tablets (50 mg) by mouth atbedtime 45 tablet 1 07/31/2024 10/29/2024 ActiveStart: 05-05-2023 End: 03-78-4563dmdr 0.5 tablet by mouth at bedtimeamitriptyline (Elavil) 100 MG tablet Indications: Fibromyalgia Take 0.5 tablets (50 mg) by mouth atbedtime 45 tablet 1 10/26/2023 ActiveStart: 36-15-3007vycbkterymtmw 100 mg oral tablet 50 mg = 0.5 tab(s), Oral, Once a day (at bedtime), Refills(s) 0 Start Date: 01/22/22 Status: Ordered End: 25-97-5563mazy 1 tablet by mouth at bedtimeamitriptyline (Elavil) 50 MG tablet Take 50 mg by mouth at bedtime 01/03/2024 Discontinued (Therapycompleted) atorvastatin 20 mg oral tablet (20 sources)HMG-CoA Reductase InhibitorStart: 04-10-2024 End: 36-81-5031hwgd 1 tablet by mouth once daily at bedtimeAtorvastatin 20 mg tablet Active 20 MG PO Daily at bedtime October 28, 2024 12:00am Complies with drug therapyStart: 05-18-2023 End: 53-41-6662luvh 1 tablet by mouth at bedtimeatorvastatin (Lipitor) 20 MG tablet Indications: Mixed hyperlipidemia (CMS/HCC) Take 1 tablet (20 mg) by mouth at bedtime 30 tablet 3 01/03/2024 ActiveStart: 02-28-2023 End: 03-58-7149rsky 1 tablet by mouth in the eveningatorvastatin (Lipitor) 20 MG tablet Indications: Mixed hyperlipidemia (CMS/HCC) Take 1 tablet (20 mg) by mouth in the evening 30 tablet 2 02/28/2023 03/30/2023 Dlhits745 actuat budesonide 0.16 mg/actuat / formoterol fumarate 0.0048 mg/actuat / glycopyrrolate 0.009 mg/actuat metered dose inhaler (20 sources)Corticosteroid, beta2-Adrenergic AgonistStart: 10-28-2024 Soruvtsjin-Rfrwljsc-Nfdwtgjsdq (Breztri Aerosphere) 160-9-4.8 mcg/actuation HFA aerosol inhaler Active 2 INH INHALATION Twice daily October 28, 2024 12:00am Complies with drug therapyStart: 07-31-2024 End: 25-14-1967igaa 2 puff(s) by inhalation in the morning, then take 2 puff(s) by inhalation at bedtime, then take 2 puff(s) by inhalation in the morning, then take 2 puff(s) by inhalation at ggmkqgoGukewwc-Krifmmvmgzs-Faqkoewdya (Breztri Aerosphere) 160-9-4.8 MCG/ACT aerosol Indications: COPD mixed type (HCC) Inhale 2 puffs in the morning and 2 puffs before bedtime. Inhale 2 puffs in the morning and 2 puffs before bedtime. 32 g 1 07/31/2024 10/29/2024 ActiveStart: 09-29-2022 End: 76-95-2220npav 2 puff(s) by inhalation in the morningBreztri Aerosphere 160-9-4.8 MCG/ACT aerosol Inhale 2 puffs in the morning and 2 puffs before bedtime. 09/29/2022 07/31/2024 Discontinued (Reorder)bumetanide 0.5 mg oral tablet (20 sources)Loop DiureticStart: 65-79-2573eops 1 tablet by mouth once daily Bumetanide 0.5 mg tablet Active 0.5 MG PO Daily October 28, 2024 12:00am only MWF Complies withdrug therapyStart: 06-07-2023 End: 26-03-4556lzswnjqkqj (Bumex) 0.5 MG tablet Indications: Bilateral lower extremity edema Take M W F only 27 tablet 1 07/31/2024 ActiveStart: 03-25-2023 End: 17-82-8244mhna 1 tablet by mouth in the morningbumetanide (Bumex) 0.5 MG tablet Indications: Bilateral lower extremity edema Take 1 tablet (0.5 mg) by mouth in the morning for 14 days. 14 tablet 0 03/25/2023 04/08/2023 Active cetirizine hydrochloride 10 mg oral tablet (18 sources)Histamine-1 Receptor AntagonistStart: 04-19-2024 End: 62-71-9456snoz 1 tablet by mouth once dailyCetirizine 10 mg tablet Active 10 MG PO Daily October 28, 2024 12:00am Complies with drug therapy cholecalciferol 0.125 mg oral tablet (20 sources)Vitamin DStart: 96-75-8292bjgq 1 tablet by mouth once daily Cholecalciferol (Vitamin D3) 125 mcg (5,000 unit) tablet Active 125 MCG PO Daily October 28, 2024 12:00am Complies with drug therapycholecalciferol (Vitamin D-3) 125 MCG (5000 UT) tablet as directed Orally Activecyclobenzaprine hydrochloride 5 mg oral tablet (3 sources)Muscle RelaxantStart: 31-52-0177obst 1 tablet by mouth every eight hours as needed for muscle spasmsCyclobenzaprine 5 mg tablet Active 5 MG PO Every 8 hours as needed for muscle spasm October 12:00am Complies with drug therapytake 5 mg by mouth three times daily as needed for muscle spasmscyclobenzaprine (Flexeril) 10 MG tablet Indications: Fibromyalgia Syndrome , Muscle Spasm Take 5 mgby mouth 3 (three) times a day as needed for muscle spasms Activeibuprofen 800 mg oral tablet (20 sources)Nonsteroidal Anti-inflammatory DrugStart: 75-18-1476artq 1 tablet by mouth every eight hours as neededibuprofen 800 MG tablet Take 800 mg by mouth every 8 (eight) hours if needed 01/08/2023 ActivelamoTRIgine 100 mg oral tablet (20 sources)Mood Stabilizer, Anti-epileptic AgentStart: 42-63-5482nfmu 1 tablet by mouth once dailyLamotrigine 100 mg tablet Active 100 MG PO Daily October 28, 2024 12:00am Complies with drug therapyStart: 48-33-2866lwab 1 tablet by mouth once dailyLamotrigine 200 mg tablet Active 200 MG PO Daily October 28, 2024 12:00am Complies with drug therapyStart: 05-04-2023 End: 88-53-0275wiyp 1 tablet by mouth once dailylamoTRIgine (LaMICtal) 150 MG tablet Take 150 mg by mouth Daily 05/04/2023 01/03/2024 Discontinued (Therapy completed)Start: 93-16-7765wncn 1 tablet by mouth once daily in the morning, then take 2 tablets by mouth once daily in the eveningLamictal 100 mg Tab 1 po QAM and 2 po QPM, Refills(s) 0 Start Date: 01/22/22 Status: Orderedtake 1 tablet by mouth at bedtimelamoTRIgine (LaMICtal) 200 MG tablet Take 200 mg by mouth at bedtime ActivelamoTRIgine (LaMICtal) 100 MG tablet Take 150 mg by mouth in the morning. In the morning . 0 Activelidocaine 0.05 mg/mg medicated patch (5 sources)Antiarrhythmic, Amide Local Anestheticapply 1 dose transdermal route every twelve hours in the morninglidocaine (Lidoderm) 5 % patch Apply 1 patch topically in the morning. Remove & discard patch within 12 hours or as directed by MD.. 0 Activemeloxicam 15 mg oral tablet (20 sources)Nonsteroidal Anti-inflammatory DrugStart: 12-05-2023 End: 55-36-2277uczs 1 tablet by mouth once dailyMeloxicam 15 mg tablet Active 15 MG PO Daily October 28, 2024 12:00am Complies with drug therapyStart: 03-15-2023 End: 11-01-1069dozr 1 tablet by mouth in the morningmeloxicam (Mobic) 15 MG tablet Indications: Fibromyalgia Take 1 tablet (15 mg) by mouth in the morning. 30 tablet 5 03/15/2023 04/14/2023 ActiveStart: 87-16-1592eoog 1 tablet by mouth once dailymeloxicam 15 mg Tab 15 mg = 1 tab(s), Oral, Daily, Refills(s) 0 Start Date: 01/22/22 Status: Orderedmontelukast 10 mg oral tablet (20 sources)Leukotriene Receptor AntagonistStart: 08-24-2023 End: 10-64-3499ccua 1 tablet by mouth once daily at bedtimeMontelukast 10 mg tablet Active 10 MG PO Daily at bedtime October 28, 2024 12:00am Complies with drug therapyomeprazole 40 mg delayed release oral capsule (20 sources)Proton Pump InhibitorStart: 05-05-2023 End: 00-22-1461tpsm 1 capsule by mouth once dailyOmeprazole 40 mg capsule,delayed release(DR/EC) Active 40 MG PO Daily October 28, 2024 12:00am Complies with drug therapyStart: 25-63-8892kxuc 1 capsule by mouth once dailyomeprazole 40 mg Cap-DR 40 mg = 1 cap(s), Oral, Daily, Refills(s) 0 Start Date: 01/22/22 Status: Orderedprazosin 1 mg oral capsule (20 sources)alpha-Adrenergic BlockerStart: 91-69-1613gjkl 1 capsule by mouth once daily at bedtimePrazosin 1 mg capsule Active 2 MG PO Daily at bedtime October 28, 2024 12:00am Complies with drug therapyStart: 84-31-2396hwlb 1 capsule by mouth once daily at bedtimePrazosin 2 mg capsule Active 2 MG PO Daily at bedtime October 28, 2024 12:00am Complies with drug therapyStart: 35-65-7712vvzu 1 capsule by mouth at bedtimeprazosin (Minipress) 1 MG capsule Take 1 mg by mouth at bedtime 11/16/2023 ActiveStart: 84-23-2742imzm 1 capsule by mouth at bedtimeprazosin 2 mg oral capsule 2 mg = 1 cap(s), Oral, Bedtime, Refills(s) 0 Start Date: 01/22/22 Status: Orderedpregabalin 100 mg oral capsule (20 sources)Start: 14-18-3597bhbk 1 capsule by mouth three times dailyPregabalin 100 mg capsule Active 100 MG PO Three times daily October 28, 2024 12:00am Complies with drug therapyStart: 12-31-2023 End: 78-93-3777cudk 1 capsule by mouth in the morningpregabalin (Lyrica) 100 MG capsule Indications: Fibromyalgia Take 1 capsule (100 mg) by mouth in the morning and 1 capsule (100 mg) before bedtime. 60 capsule 2 07/31/2024 Active Start: 01-10-8759pivp 1 capsule by mouth in the morningpregabalin (Lyrica) 100 MG capsule Indications: Fibromyalgia Take 1 capsule (100 mg) by mouth in the morning and 1 capsule (100 mg) before bedtime. 60 capsule 5 06/28/2023 Active Start: 74-83-8520gypg 1 capsule by mouth twice dailypregabalin (Lyrica) 100 MG capsule Indications: Fibromyalgia TAKE 1 CAPSULE BY MOUTH TWICE DAILY 60capsule 5 01/06/2023 ActiveStart: 76-14-0756nvvi 1 capsule by mouth twice daily pregabalin 100 mg Cap 100 mg = 1 cap(s), Oral, BID, Refills(s) 0 Start Date: 01/22/22 Status: Orderedpropranolol hydrochloride 40 mg oral tablet (20 sources)beta-Adrenergic BlockerStart: 01-26-2024 End: 67-04-5621zunm 1 tablet by mouth twice dailyPropranolol 40 mg tablet Active 40 MG PO Twice daily October 28, 2024 12:00am Complies with drug therapy Start: 12-25-2023 End: 83-24-2709uznb 1 tablet by mouth in the morningpropranolol (Inderal) 40 MG tablet Indications: Personal history of other diseases of the nervous system and sense organs Take 1 tablet (40 mg) by mouth in the morning and 1 tablet (40 mg) before bedtime. 60 tablet 1 12/25/2023 ActiveStart: 83-35-3509spdl 1 tablet by mouth in the morningpropranolol (Inderal) 40 MG tablet Indications: Personal history of other diseases of the nervous system and sense organs Take 1 tablet (40 mg) by mouth in the morning and 1 tablet (40 mg) before bedtime. 60 tablet 5 06/28/2023 ActiveStart: 47-86-3089srqs 1 tablet by mouth twice dailypropranolol (Inderal) 40 MG tablet Indications: Personal history of other diseases of the nervous system and sense organs TAKE 1 TABLET BY MOUTH TWICE DAILY 60 tablet 5 01/06/2023 ActiveStart: 79-41-0943onbo 1 tablet by mouth twice dailypropranolol 40 mg Tab 40 mg = 1 tab(s), Oral, BID, Refills(s) 0 Start Date: 01/22/22 Status: OrderedQUEtiapine 300 mg oral tablet (20 sources)Atypical AntipsychoticStart: 66-17-0098ecbo 1 tablet by mouth once daily at bedtimeQuetiapine 300 mg tablet Active 300 MG PO Daily at bedtime October 28, 2024 12:00am Complies with drug therapyStart: 39-42-8603moch 1 tablet by mouth at bedtimeQUEtiapine (SEROquel) 300 MG tablet Take 300 mg by mouth at bedtime 05/11/2024 ActiveStart: 01-22-2022 End: 20-84-6591SORTxacq 100 mg Tab 1 tabs QAM and 4 tabs qpm, Refills(s) 0 Start Date: 01/22/22 Status: Ordered End: 99-18-0485qfjk 1 tablet by mouth at bedtimeQUEtiapine (SEROquel) 400 MG tablet Take 400 mg by mouth at bedtime 07/31/2024 Discontinuedsimvastatin 40 mg oral tablet (1 source)HMG-CoA Reductase InhibitorStart: 81-60-5914alao 1 tablet by mouth once daily at bedtimesimvastatin 40 mg Tab 40 mg = 1 tab(s), Oral, Once a day (at bedtime), Refills(s) 0 Start Date: 01/22/22 Status: Orderedspironolactone 50 mg oral tablet (20 sources)Aldosterone AntagonistStart: 01-26-2024 End: 69-13-2252eayy 1 tablet by mouth once dailySpironolactone 50 mg tablet Active 50 MG PO Daily October 28, 2024 12:00am Complies with drug therapy Start: 52-04-0413rnsr 1 tablet by mouth in the morningspironolactone (Aldactone) 50 MG tablet Indications: Localized edema Take 1 tablet (50 mg) by mouthin the morning. 30 tablet 5 09/24/2023 ActiveStart: 03-15-2023 End: 70-30-7892anvp 1 tablet by mouth in the morningspironolactone (Aldactone) 50 MG tablet Indications: Localized edema Take 1 tablet (50 mg) by mouthin the morning. 30 tablet 5 03/15/2023 04/14/2023 ActiveStart: 55-03-4169seki 1 tablet by mouth once dailyAldactone 50 mg Tab 50 mg = 1 tab(s), Oral, Daily, Refills(s) 0 Start Date: 01/22/22 Status: OrderedtiZANidine 4 mg oral tablet (20 sources)Central alpha-2 Adrenergic AgonistStart: 46-27-3152okgl 1 tablet by mouth every twelve hours as neededTizanidine 4 mg tablet Active 4 MG PO Every 12 hours as needed for muscle spasticity October 28, 2024 12:00am Complies with drug therapyStart: 01-03-2024 End: 77-29-8670kydi 1 tablet by mouth oncetiZANidine (Zanaflex) 4 MG tablet Indications: Fibromyalgia Take 1 tablet (4 mg) by mouth every 12 (twelve) hours if needed for muscle spasms 60 tablet 2 09/29/2024 10/29/2024 ActiveStart: 05-05-2023 End: 08-10-2040zyki 1 tablet by mouth every eight hours for muscle spasms tiZANidine (Zanaflex) 4 MG tablet Indications: Fibromyalgia Take 1 tablet (4 mg) by mouth every 8 (eight) hours if needed for muscle spasms 90 tablet 5 10/26/2023 11/25/2023 ActiveStart: 54-37-6643rmwq 1 tablet by mouth every eight hours as needed for muscle spasmstiZANidine 4 mg Tab 4 mg = 1 tab(s), Oral, q8hr, PRN Spasm, Refills(s) 0 Start Date: 01/22/22 Status: Orderedtake 1 tablet by mouth once dailytiZANidine (Zanaflex) 4 MG tablet Take 4 mg by mouth 1 (one) time each day 0 Activevarenicline 1 mg oral tablet (20 sources)Partial Cholinergic Nicotinic AgonistStart: 84-53-7281vfto 1 tablet by mouth twice dailyVarenicline Tartrate 1 mg tablet Active 1 MG PO Twice daily October 28, 2024 12:00am Complies with drug therapyStart: 07-31-2024 End: 04-33-6131mdsd 1 tablet by mouth twice dailyVarenicline Tartrate, Starter, 0.5 MG X 11 & 1 MG X 42 tablet therapy pack Indications: Tobaccodependence Take 1 tablet by mouth Daily 0.5mg once a day for 3 days, then 0.5mg twice a day for 4 days, then 1mg twice a day 53 each 08/06/2024 ActiveStart: 06-26-2024 End: 10-10-9103iujb 1 tablet by mouth once dailyVarenicline Tartrate, Starter, (Chantix Starting Month ) 0.5 MG X 11 & 1 MG X 42 tablet therapy pack Indications: Tobacco dependence Take 1 tablet by mouth Daily Take as directed 53 each 07/31/2024 08/06/2024 DiscontinuedVitamin D3 5000 intl units (125 mcg) oral tab (1 source)Start: 21-52-5363azle 1 tablet by mouth once dailyVitamin D3 5000 intl units (125 mcg) oral tab 125 mcg = 1 tab(s), Oral, Daily, Refills(s) 0 Start Da te: 01/22/22 Status: Ordered Problems Active Problems Problem ClassificationProblemDateDocumented DateEpisodic/ChronicAnxiety disorders (20 sources)Mixed anxiety and depressive disorder; Translations: [Anxiety disorder, unspecified]Onset: [id number] kidney disease (16 sources)Chronic kidney disease stage 3A ; Translations: [Chronic kidney disease, stage 3a (HCC)]Onset: [id number] obstructive pulmonary disease and bronchiectasis (20 sources)Chronic obstructive pulmonary disease, unspecified; Translations: [Chronic obstructive lung disease]Onset: 20-32-8322MdjmnczFwskfii obstructive pulmonary disease and bronchiectasis (1 source)Bronchitis, not specified as acute or chronic; Translations: [BRONCHITIS NOT SPEC ACUTE/CHRON]Onset: 36-67-1754EglgqbxhXkitdfbdgb and other anemia (1 source)Other megaloblastic anemias, not elsewhere classified; Translations: [OTHER MEGALOBLASTIC ANEMIAS NEC]Onset: 22-83-5685RsullpteDzrxyelhqf and other anemia (1 source)Megaloblastic anemia; Translations: [Other megaloblastic anemias, not elsewhere classified]37-06-7550DrvxyqotAfetmsys mellitus without complication (4 sources)Hyperglycemia, unspecified; Translations: [HYPERGLYCEMIA UNSPECIFIED] Onset: 52-02-0155HielkyxxQcrnhupaw of lipid metabolism (20 sources)Hyperlipidemia; Translations: [Hyperlipidemia, unspecified]Onset: 05-08-2022 Resolved: 218398-97-9114FafgjeuFpwrzfxlxc disorders (20 sources)Gastroesophageal reflux disease; Translations: [Gastro-esophageal reflux disease without esophagitis]Onset: 351530-55-8359UtjzyfqJeuljgmte hypertension (20 sources)Essential hypertension; Translations: [Essential (primary) hypertension]Onset: 03-10-2011 Resolved: 729133-81-2614TqxfubyFnlym disorders and dislocations; trauma-related (20 sources)Derangement of left knee; Translations: [Unspecified internal derangement of left knee]Onset: 177971-53-7561OaehwvjJpof disorders (1 source)Moderate recurrent major depression; Translations: [Major depressive disorder, recurrent, moderate]80-30-8355MobhmncJkhimhjtuef deficiencies (20 sources)Vitamin D deficiency; Translations: [Vitamin D deficiency, unspecified]Onset: 423065-31-9572EewrslsNlibgivtdnx deficiencies (20 sources)Cobalamin deficiency; Translations: [Deficiency of other specified B group vitamins]Onset: 334972-26-2961JgvbiowcZcgjrxwlyucule (20 sources)Osteoarthritis of knee; Translations: [Osteoarthritis of knee, unspecified]Onset: 349596-74-8865AwujmetCocuw and unspecified benign neoplasm (2 sources)Polyp of colon; Translations: [Hyperplastic polyp of sigmoid colon] Onset: 043602-10-7709XnwknzxgJpbdi bone disease and musculoskeletal deformities (20 sources)Osteopenia; Translations: [Other specified disorders of bone density and structure, unspecified site]Onset: 346711-09-7451BwjinethAvytw connective tissue disease (20 sources)Fibromyalgia; Translations: [Fibromyalgia]Onset: 03-10-2011 Resolved: 781584-27-9180JqkttqqhSvtoo connective tissue disease (1 source)Other muscle spasm; Translations: [OTHER MUSCLE SPASM]Onset: 24-16-5471CaftamjiPfzcf gastrointestinal disorders (1 source)Abnormal feces; Translations: [Other fecal abnormalities]Onset: 60-28-4491MyibtqykJmgfe liver diseases (20 sources)Aspartate aminotransferase serum level raised; Translations: [Elevated SGOT (AST)]Onset: 121882-27-3479BjpamjhhUrukh lower respiratory disease (1 source)Shortness of breath; Translations: [SHORTNESS OF BREATH]Onset: 34-55-4053HjwjvsqeGopmq nervous system disorders (1 source)Other chronic pain; Translations: [OTHER CHRONIC PAIN]Onset: 25-48-9206EuauhvsZzwow nervous system disorders (2 sources)Parkinsonism due to drug; Translations: [Other drug induced secondary parkinsonism]58-06-8661TbziqroPaawa nervous system disorders (20 sources)Tremor; Translations: [Tremor, unspecified]Onset: 02-10-2024 68-05-2555UmqkxwfiWwdvi nervous system disorders (2 sources)H/O: Disorder; Translations: [Personal history of other diseases of the nervous system and sense organs]39-61-6141UtzmzkdgQabdg nutritional; endocrine; and metabolic disorders (20 sources)Body mass index 40+ - severely obese; Translations: [Body mass index (BMI) 40.0-44.9, adult]Onset: 460186-90-0805CwbgeqrLtjrf nutritional; endocrine; and metabolic disorders (18 sources)Obesity; Translations: [Obesity, unspecified]Onset: 02-18-2023 13-42-4712LpncuomDnwdq nutritional; endocrine; and metabolic disorders (1 source)Obesity, unspecified; Translations: [OBESITY UNSPECIFIED]Onset: 09-44-0774PlrnugyTpwal nutritional; endocrine; and metabolic disorders (20 sources)Obesity caused by energy imbalance; Translations: [Morbid (severe) obesity due to excess calories]Onset: 185686-35-9173DczrrfoAksfq nutritional; endocrine; and metabolic disorders (2 sources)Morbid obesity; Translations: [Morbid (severe) obesity due to excess calories]55-28-3695XweiyqqRpnta screening for suspected conditions (not mental disorders or infectious disease) (20 sources)Stool DNA-based colorectal cancer screening positive; Translations: [Other fecal abnormalities]Onset: 516185-16-7756PyroivqwFembb upper respiratory disease (19 sources)Allergic disposition; Translations: [Other allergic rhinitis]Onset: 467155-44-7253UdolpsePpflkgcx codes; unclassified (1 source)Sleep apnea, unspecified; Translations: [SLEEP APNEA UNSPECIFIED] Onset: 01-54-9540CszsnujZcbqtdbr codes; unclassified (20 sources)Obstructive sleep apnea syndrome; Translations: [Obstructive sleep apnea (adult) (pediatric)]Onset: 139710-53-2155FupmgizLpdkbdla codes; unclassified (20 sources)Bilateral lower limb edema; Translations: [Localized edema]Onset: 966093-76-2684JqryzvmaEuflkifi codes; unclassified (2 sources)Localized edema; Translations: [Localized edema]26-49-1403Lolinzyr Spondylosis; intervertebral disc disorders; other back problems (10 sources)Spondylosis without myelopathy or radiculopathy, lumbar region; Translations: [Other intervertebraldisc degeneration, lumbar region]Onset: 52-46-7303LdreibbYlxfjzqatfy; intervertebral disc disorders; other back problems (20 sources)Chronic low back pain; Translations: [Chronic lumbar pain]Onset: 159149-06-0471WioqkjqwUvnrpxuls-rijikby disorders (20 sources)Nicotine dependence, cigarettes, uncomplicated; Translations: [Tobacco dependence syndrome]Onset: 649021-59-4669IqlvtbkAslbvmptdzdz (4 sources)LOW BACK PAIN, UNSPECIFIED; Translations: [LOW BACK PAIN, UNSPECIFIED]Onset: 27-66-6723Smxyshwvyeul (4 sources)CONTACT W/AND (SUSP) EXPOS COVID-19; Translations: [CONTACT W/AND (SUSP) EXPOS COVID-19]Onset: 06-24-6980Cyvny infection (1 source)COVID-19; Translations: [COVID-19]Onset: 03-02-2022 Past or Other Problems Problem ClassificationProblemDateDocumented DateEpisodic/ChronicDeficiency and other anemia (20 sources)Acute megaloblastic anemia; Translations: [Other megaloblastic anemias, not elsewhere classified]Onset: 996250-73-5703WbvtqkdqO Codes: Adverse effects of medical drugs (1 source)Adverse effect of glucocorticoids and synthetic analogues, initial encounter; Translations: [ADVRS EFF GLUCOCORT SYN ANALOG INIT]Onset: 12-04-2021 EpisodicHeadache; including migraine (20 sources)Migraine; Translations: [Migraine without aura]Onset: 01-04-2023 Resolved: 194495-06-2094ZmlcuutQucm disorders (20 sources)Mood disordersOnset: 06-03-2023 Resolved: Open wounds of extremities (20 sources)Open wound of left foot; Translations: [Unspecified open wound, left foot, initial encounter]Onset: 01-26-2023 Resolved: 258499-53-2256HstfcsimFnpvq aftercare (1 source)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; Translations: [OTH MCC CURRENT DRUG THERAPY]Onset: 15-68-4915RazjpmtqPidfq and unspecified benign neoplasm (20 sources)Hyperplastic polyp of intestine; Translations: [Polyp of colon] Onset: 118216-61-4266MobfhatwQpbel connective tissue disease (1 source)Fibromyalgia; Translations: [FIBROMYALGIA]Onset: 80-76-0448Avekegsq Other ear and sense organ disorders (20 sources)Hearing loss; Translations: [Unspecified hearing loss, unspecified ear]Onset: 02-18-2023 Resolved: 399679-19-7884DvmhwryLtufx gastrointestinal disorders (4 sources)Other fecal abnormalities; Translations: [OTHER FECAL ABNORMALITIES] Onset: 10-33-5299RxrgtxstLsvha inflammatory condition of skin (4 sources)Pruritus, unspecified; Translations: [PRURITUS UNSPECIFIED]Onset: 41-46-8943DyqfkjdzMmcfw lower respiratory disease (20 sources)Dyspnea; Translations: [Shortness of breath]Onset: 03-25-2023 Resolved: 327262-18-1772NmfipvdpCicxr non-traumatic joint disorders (20 sources)Pain in left knee; Translations: [Pain in joint, lower leg]Onset: 10-13-2021 Resolved: 096772-91-6654AzatildtWvbxe nutritional; endocrine; and metabolic disorders (20 sources)Severe obesity; Translations: [Morbid (severe) obesity due to excess calories]Onset: 01-26-2023 Resolved: 816013-02-3416FfmsbhqPdymi skin disorders (20 sources)Decorative tattoo; Translations: [Other specified disorders of pigmentation]Onset: 03-10-2011 Resolved: 832582-58-9474BkokekrlDqajm upper respiratory infections (20 sources)Acute sinusitis; Translations: [Other acute sinusitis]Onset: 01-26-2023 Resolved: 482165-58-0092GhtqfkfzTqpyqbbzy (except that caused by tuberculosis or sexually transmitted disease) (20 sources)Community acquired pneumonia; Translations: [Pneumonia, unspecified organism]Onset: 01-03-2024 Resolved: 774158-44-8040PpmecmtwTiqaxjwc codes; unclassified (20 sources)Edema of lower extremity; Translations: [Localized edema]Onset: 02-18-2023 Resolved: 385666-94-2402AlkwcaysZmdjbbmu codes; unclassified (20 sources)Tobacco user; Translations: [Tobacco use]Onset: 02-18-2023 Resolved: 268905-72-5725JjjzfoeqPqueggkh codes; unclassified (1 source)Acquired absence of both cervix and uterus; Translations: [ACQUIRED ABSENCE BOTH CERVIX AND UTERUS]Onset: 27-62-3168EuuvomdnYxqwqaqa codes; unclassified (1 source)Tobacco use; Translations: [TOBACCO USE]Onset: 22-01-8863Wwsonkoz Residual codes; unclassified (1 source)Insomnia, unspecified; Translations: [INSOMNIA UNSPECIFIED]Onset: 95-88-6893EwgvroljUeijduba codes; unclassified (20 sources)Exposure to carbon monoxide; Translations: [Contact with and (suspected) exposure to other hazardous substances]Onset: 02-18-2023 Resolved: 313990-57-9698UzponmytDsssnewe codes; unclassified (20 sources)Edema of right lower limb; Translations: [Localized edema]Onset: 03-25-2023 Resolved: 580004-06-9718TtcegpkoCcxgvqybb and history of mental health and substance abuse codes (20 sources)Tobacco use and exposure - finding; Translations: [Personal history of nicotine dependence]Onset: 03-10-2011 Resolved: 619762-22-1778VzcpbdacMddwnjgxbshr (1 source)LOW BACK PAIN, UNSPECIFIED; Translations: [LOW BACK PAIN, UNSPECIFIED] Onset: 95-95-2294Rgixrlbagcfw (1 source)CONTACT W/AND (SUSP) EXPOS COVID-19; Translations: [CONTACT W/AND (SUSP) EXPOS COVID-19]Onset: 03-10-2022 Results Test NameValueInterpretationReference RangeFacilityGlomerular filtration rate (GFR) estimation in non- AmericanOrdered By: Jaymie Phoenix on 10-10-2024 GFR/1.73 sq M.predicted among non-blacks MDRD (S/P/Bld) [Vol rate/Area]54 mL/min/{1.73_m2}Low>=60 mL/min/1.73m 2FMarietta Osteopathic Clinic Laboratory - Chemistry and Chemistry - challengeOrdered By: Jaymie Phoenix on 31-08-9376Hakygrb [Mass/Vol]8.9 mg/dL8.5-10.1FMarietta Osteopathic Clinic Chloride [Moles/Vol]101 mmol/A06-723WylehzddqProvidence HospitalCO2 [Moles/Vol]29.5 mmol/L21.0-32.0Providence HospitalCreatinine [Mass/Vol]1.03 mg/dLHigh0.55-1.02Providence HospitalGFR/1.73 sq M.predicted MDRD (S/P/Bld) [Vol rate/Area]mL/min/{1.73_m2}>=60 mL/min/1.73m 2 Providence HospitalGlucose [Mass/Vol]111 mg/bOXlqq85-977EqbhllthtProvidence HospitalPotassium [Moles/Vol]4.1 mmol/L3.5-5.1FFort Hamilton Hospitalodium [Moles/Vol]139 mmol/I745-301EhjebkrrnProvidence HospitalUrea nitrogen [Mass/Vol]19.0 mg/dLHigh7.0-18.0Providence HospitalUrea nitrogen/Creatinine [Mass ratio]18.4 mg/mgLima City Hospitalerum or plasma anion gap determinationOrdered By: Jaymie Phoenix on 53-17-1070Hnfzm gap [Moles/Vol]12.6 mmol/LFMarietta Osteopathic ClinicXR LUMBAR SPINE 6V W BENDINGon 37-47-6266[place] [address] XRay Report Signed Patient: FRANKY GAGNON I MR#: [id number] : 1965 Acct:[id number] Age/Sex: 59 / F ADM Date: 09/19/24 Loc: RAD Attending Dr: Estelle Vazquez NP Ordering Physician: Estelle Vazquez NP Date of Service: 09/19/24 Procedure(s): XR lumbar spine 6V w bending Accession Number(s): [id number] cc: Jaymie Phoenix LABORER HOISTING; Estelle Vazquez NP [place] [address] Patient Name: FRANKY GAGNON MRN: [id number] date: 1965 Sex: F Assigned Patient Location: [facility] Current Patient Location: RAD Accession/Order Number: [id number] Exam Date: 09/19/2024 14:32 Report Date: 09/19/2024 [...] LEVEL. Impression dictated by: Joaquin Chatman Jr., DCindyOCindy 09/19/2024 2:33 PM Dictation Location: RADIO-PC-23 Electronically authenticated by: [id number] Y Date: 09/19/2024 14:33 Dictated By: Joaquin Chatman M.D. Signed By: 09/19/241435 DD/ 32 TD/TT: Jelly Filter Tender:NOEMÍadiolfrank Radiologist, - 09/19/2024 [place] [address] XRay Report Signed Patient: FRANKY GAGNON I MR#: [id number] : 1965 Acct:[id number] Age/Sex: 59 / F ADM Date: 09/19/24 Loc: EVI Attending Dr: Estelle Vazquez NP Ordering Physician: Estelle Vazquez NP Date of Service: 09/19/24 Procedure(s): XR lumbar spine 6V w bending Accession Number(s): [id number] cc: Jaymie Phoenix LABORER HOISTING; Estelle Vazquez NP [facility] [place] [address] Patient Name: FRANKY GAGNON MRN: [id number] date: 1965 Sex: F Assigned Patient Location: [facility] Current Patient Location: [facility] Accession/Order Number: [id number] Exam Date: 09/19/2024 14:32 Report Date: 09/19/2024 [...] Jr., D.OCindy 09/19/2024 2:33 PM Dictation Location: RADIO-PC-23 Electronically authenticated by: [id number] Y Date: 09/19/2024 14:33 Dictated By: Joaquin Chatman M.D. Signed By: 09/19/241435 DD/ 32 TD/TT: Jelly Filter Tender: SYLVIA HealthcareRadiology Study observation (narrative)NOM HealthcareXR LUMBAR SPINE 6V W BENDINGOrdered By: Radiologist Radiology on 45-48-9753TFWJ Healthcare Work Phone: [facility] MICROALB CREAT RATIO RANDOMon 52-10-9202SUVATUCIAR URINE GDGPTF739.95 mg/dL20.00 - 300.00 mg/dLNOKY HealthcareMICROALBUMIN URINE RANDOM<1.3NINF - 30.0 mg/dLNOKY HealthcareCLINISYNCNOMS HealthcareALL BASIC METABOLIC PANELon 99-70-5442Ywrbq gap [Moles/Vol]11.6 mmol/LNOMS Healthcare Calcium [Mass/Vol]8.9 mg/dL8.5 - 10.1 mg/dLNOKY HealthcareChloride [Moles/Vol] 103 mmol/L98 - 107 mmol/LNOMS HealthcareCO2 [Moles/Vol]31.6 mmol/L21.0 - 32.0 mmol/LNOMS HealthcareCreatinine [Mass/Vol]1.17 mg/dLHigh0.55 - 1.02 mg/dLNOKY HealthcareGFR/1.73 sq M.predicted CKD-EPI (S/P/Bld) [Vol rate/Area]57Low>=60 mL/min/1.73m 2NOMS HealthcareGlucose [Mass/Vol]118 mg/lDTevl48 - 106 mg/dLNOKY HealthcarePotassium [Moles/Vol]4.2 mmol/L3.5 - 5.1 mmol/LNOMS HealthcareSodium [Moles/Vol]142 mmol/L136 - 145 mmol/LNOMS HealthcareTBH EGFR-NON AF HZHEXRXW10 Low>=60 mL/min/1.73m 2NOMS HealthcareUrea nitrogen [Mass/Vol]12 mg/dL7.0 - 18.0 mg/dLNOKY HealthcareUrea nitrogen/Creatinine [Mass ratio]10.3 mg/mgNOMS HealthcareALL LIPID PROFILE (FASTING)on 62-51-2531OTLV HDL RATIO2.9NOKY HealthcareComment on above:3.3 - 4.4 LOW RISK 4.4 - 7.1 AVERAGE RISK 7.1 - 11.0 MODERATE RISK >11.0 HIGH RISK Cholesterol [Mass/Vol]152 mg/dLNINF - 200 mg/dLNOChristian HospitalCholesterol in HDL [Mass/Vol]52 mg/dL40 - 60 mg/dLNOKY HealthcareComment on above:> or =60 mg/dl - LOW CARDIOVASCULAR RISK <40 mg/dl - HIGH CARDIOVASCULAR RISK Magnesium [Mass/Vol]70 mg/dLNOKY HealthcareComment on above:<100 mg/dl OPTIMAL 100-129 mg/dl NEAR OR ABOVE OPTIMAL 130-159 mg/dl BORDERLINE HIGH 160-189 mg/dl HIGH >190 mg/dl VERY HIGH Magnesium [Mass/Vol]30.8 mg/dLMOUNTAINSTAR HEALTHCARE HealthcareTriglyceride [Mass/Vol]154 mg/dL HighNINF - 150 mg/dLColumbia Regional HospitalNo Panel Informationon 01-24-2024 Interpretation and review of laboratory resultsAbCorewell Health Ludington HospitalCLINISYNC NOMS HealthcareBLOOD GASES BTYon Holzer HospitalComment on above:Performed By: #### ABG ####[facility] H[address] [place], [place] [address]Dr.Phani DineroENS TEST PositiveTrumbull Regional Medical CenterComment on above:Performed By: #### ABG ####[facility] Eseajgamxu[address] [place], [place] [address]Dr. Phani ElBase excess Calc (Bld) [Moles/Vol]1.4 mmol/LNormal-2.0-2.0The Topeka HospitalComment on above:Performed By: #### ABG ####[facility] [address] [place] [address]Dr.Phani ElBIPAP PRESSURE NormalThe [facility] Hospital ToledoComment on above:Performed By: #### ABG ####[facility] Yjylualcyh[address] [place], [place] [address]Dr.Phani ChangCPAP NormalTrinity Health System East CampusComment on above:Performed By: #### ABG ####[facility] L[address]zhmqpjkx[address] [place], [place] [address]Dr.Phani ElFIO2 NormalTrinity Health System East CampusComment on above:Performed By: #### ABG ####[facility] Gtultpifdp[address] [place], [place] [address]Dr.Phani NikkoHCO3 (Bld) [Moles/Vol]26.2 mmol/LCritically high22.0-26.0The [facility] ToledoComment on above:Performed By: #### ABG ####[facility] V[address] [place], [place] [address]Dr.Phani ChangLPMNormalThe Topeka HospitalComment on above:Performed By: #### ABG ####[facility] Mnxhfstfvy[address] [place], [place] [address]Dr.Phani ElMINWVUMedicine [facility] Hospital Comment on above:Performed By: #### ABG ####[facility] Fungoywgfj[address] [place], [place] [address]Dr.Phani ChangOxygen (Bld) [Partial pressure]56.1 mm[Hg]Critically low80.0-100.0The [facility] Hospital ToledoComment on above:Performed By: #### ABG ####[facility] [address]spu[address]jbk[address] [place], [place] [address]Dr.Phani ElOxygen saturation in Blood92.0 % Critically low95.0-100.0The [facility] Hospital ToledoComc.[facility] on above:Performed By: #### ABG ####[facility] Toxuwqdkcm[address] [place], [place] [address]Dr.Phani ElPCO242.6 uxAgXfmsix41.0-45.0The [facility] ToledoComment on above:Performed By: #### ABG ####[facility] [address]auybwgi[address] [place], [place] [address]Dr.Phani ElAvita Health SystemComment on above:Performed By: #### ABG ####[facility] Qnnybigbxj[address] [place], [place] [address]Dr.Phani ElpH (Bld)7.398 [pH]Normal7.350-7.450The [facility] ToledoComment on above:Performed By: #### ABG ####[facility] [address] [place] [id number].Phani ElPIPNThe Jewish HospitalComment on above:Performed By: #### ABG ####[facility] [address] [place] [id number].Phani [facility] Hospital For WomenPSNoTriHealth Bethesda North HospitalComment on above:Performed By: #### ABG ####[facility] [address] [place] [address]Dr.Phani ElPUNCTURE SITERR [facility] Medical CenterComment on above:Performed By: #### ABG ####[facility] [address] [place] [address]Dr.Phani ElRATE [facility] Medical CenterComment on above:Performed By: #### ABG ####[facility] [address] [place] [address]Dr.Phani ElVENT MODETrumbull Regional Medical CenterComment on above:Performed By: #### ABG ####[facility] [address] [place] [address]Dr. Phani Flower HospitalComment on above:Performed By: #### ABG ####[facility] [address]kb[address]pf[address] [place], [place] [address]Dr. Phani ChangECHOCARDIO M/2D COMPLETEon 05-18-3080KBNJAHXPMF M/2D COMPLETEPatient: FRANKY GAGNON I. Exam Date: 07/08/2022 : 1965 Gender:F Ordering : DR. MAGDALENA DOWNING . Admission #: [id number] Family : MEREDITH [place] ACCOUNT DEVELOPMENT ASSOCIATE Order #: [id number] CLICK HERE TO VIEW EXAM ECHOCARDIOGRAM REPORT [...] by: Johnathan Garcia M.D. on 07/08/2022 at 18:14[facility] LUNG CANCER SCREENINGon 37-59-6260HY LUNG CANCER SCREENING EXAMINATION: CT LUNG CANCER [...] Electronically authenticated by: MELISSA ROSENBERG Date: 2022-05-29 09:36NormalThBlanchard Valley [facility] AUTO DIFFon 17-67-9398GOWP #0.1 103/ulNormal0.0-0.1[facility] Hospitalment on above:Performed By: #### CBC #### [facility] [address] [place] [address] Dr. Phani ElBasophils/100 WBC (Bld)0.8 %Normal0.2-2.0[facility] Comment on above:Performed By: #### CBC #### [facility] [address] [place] [address] [address] Phani Cabezas #0.1 103/ulNormal0.0-0.7The [facility] Hospital ToledoComc.[facility] on above: Performed By: #### CBC #### [facility] [address] [place] [address] Dr. Phani Royosinophils/100 WBC (Bld)2.0 %Normal0.9-7.0[facility] Comment on above:Performed By: #### CBC #### [facility] [address] [place] [address] [address] Phani Royrythrocyte distribution width (RBC) [Ratio]14.0 %Wpivxh61.0-15.0 [facility] Hospitalment on above:Performed By: #### CBC #### [facility] [address] [place] [address] Dr. Phani ElHematocrit (Bld) [Volume fraction]48.7 %Critically high36.0-48.0 The Dionna HospitalComment on above:Performed By: #### CBC #### [facility] [address] [place] [address] [address] Phani ElHemoglobin (Bld) [Mass/Vol]15.9 g/hZFgqhfn50.0-16.0The [facility] ToledoComment on above:Performed By: #### CBC #### [facility] [address] [place] [address] [address] Phani Escobar #0.05 10e3/ulCritically high0.00-0.03The [facility] Comment on above:Performed By: #### CBC #### [facility] [address] [place] [address] Dr. Phani Escobar %0.8 %Critically high0.0-0.5The [facility] ToledoComment on above:Performed By: #### CBC #### [facility] [address] [place] [address] Dr. Phani Sol #1.9 103/ulNormal1.2-3.8The [facility] ToledoComment on above:Performed By: #### CBC #### [facility] [address] [place] [address] Dr. Phani Rogelhocytes/100 WBC (Bld)30.1 %Ralqil85.5-60.0The [facility] ToledoComment on above:Performed By: #### CBC #### [facility] [address] [place] [address] [address] Phani GreenUAL DIFF REQNONormalThe [facility] ToledoComment on above: Performed By: #### CBC #### [facility] [address] [place] [address] [address] Phani Mahmood (RBC) [Entitic mass]32.9 glGfpvof52.7-34.0The [facility] ToledoComment on above:Performed By: #### CBC #### [facility] [address] [place] [address] Dr. Phani Hdoge (RBC) [Mass/Vol]32.6 g/mMNctqxg93.9-35.2The [facility] ToledoComment on above:Performed By: #### CBC #### [facility] [address] [place] [address] Dr. Phani HodgeV (RBC) [Entitic vol]100.8 fLCritically high81.0-99.0The [facility] ToledoComment on above:Performed By: #### CBC #### [facility] [address] [place] [address] Dr. Phani Noble #0.5 103/ulNormal0.3-0.8The [facility] ToledoComment on above:Performed By: #### CBC #### [facility] [address] [place] [address] Dr. Phani Andersonocytes/100 WBC (Bld)7.2 %Normal1.7-12.0The [facility] Comment on above:Performed By: #### CBC #### [facility] [address] [place] [address] Dr. Phani Leon #3.8 103/ulNormal1.4-6.5The [facility] ToledoComment on above:Performed By: #### CBC #### [facility] [address] [place] [address] Dr. Phani Gonzalesutrophils/100 WBC (Bld)59.1 %Gpymtz09.0-75.0The [facility] ToledoComment on above:Performed By: #### CBC #### [facility] [address] [place] [address] Dr. Phani Hardinglet mean volume (Bld) [Entitic vol]11.0 fLNormal9.5-13.5The [facility] ToledoComment on above:Performed By: #### CBC #### [facility] [address] [place] [address] Dr. Phani ElPLT167 103/mcVaqxgv763-859Sok [facility] ToledoComment on above: Performed By: #### CBC #### [facility] [address] [place] [address] Dr. Phani ElRBC4.83 106/ulNormal4.20-5.40[facility] on above:Performed By: #### CBC #### [facility] [address] [place] [address] [address] Phani ElWBC6.4 103/ulNormal4.0-11.0[facility] on above: Performed By: #### CBC #### [facility] [address] [place] [address] [address] Phani ElGLYCOHEMOGLOBIN A1Con 55-84-9995NBF RECOMMENDATIONSEE BELOWMercy Health St. Rita'S Medical CenterComment on above:Result Comment: ADA RECOMMENDED LIMIT 4.0 - 6.0 ADA THERAPEUTIC TARGET < 7.0 ACTION SUGGESTED > 7.0Performed By: #### A1C ####[facility] [address] [place] [address]Dr. Phani ElGlucose [Mass/Vol]114 mg/dLNoTriHealth [facility] HospitalComment on above:Performed By: #### A1C ####[facility] [address] [address]Dr.Yilan ElHbA1c (Bld) [Mass fraction]5.6 %Normal 4.5-6.2[facility] CampusComc.s[facility] on above:Performed By: #### A1C ####[facility] [address] [address]Dr.Yilan ElLIPID PROFILEon 48-30-4737TEEY-HDL RATIO NORMSEE [facility] Comment on above:Result Comment: 3.3 - 4.4 LOW RISK 4.4 - 7.1 AVERAGE RISK 7.1 - 11.0 MODERATE RISK >11.0 HIGH RISKPerformed By: #### CMP, LIPID #### [facility] [address] [address] [address] Phani ElCholesterol [Mass/Vol]178 mg/dLNormal<=200[facility] Comment on above:Performed By: #### CMP, LIPID #### [facility] [address] [address] [address] Phani ElCholesterol in HDL [Mass/Vol]54 mg/uCTzinrh13-49Ybs [facility]edoComment on above:Performed By: #### CMP, LIPID #### [facility] [address] [place] [address] Dr. Phani ElCholesterol in LDL [Mass/Vol]86.6 mg/dLTrumbull Regional Medical CenterComc.s. [facility] on above:Performed By: #### CMP, LIPID #### [facility] [address] [place] [address] Dr. Phani Mireles.total/Cholesterol in HDL [Mass ratio]3.3 {ratio} NormalThe [facility]edoComc.[facility] on above:Performed By: #### CMP, LIPID #### [facility] [address] [place] [address] Dr. Phani Slater NORMAL> or = 60 mg/dl - LOW CARDIOVASCULAR RISK <40 mg/dl - HIGH CARDIOVASCULAR RISKUpper [facility] on above:Performed By: #### CMP, LIPID #### [facility] [address] [place] [address] Dr. Phani Wynne CALC NORMALSEE BELOWTrumbull Regional Medical CenterComc.s. [facility] on above:Result Comment: <100 mg/dl OPTIMAL 100 - 129 mg/dl NEAR OR ABOVE OPTIMAL 130 - 159 mg/dl BORDERLINE HIGH 160 - 189 mg/dl HIGH >190 mg/dl VERY HIGH Performed By: #### CMP, LIPID #### [facility] [address] [place] [address] Dr. Phani ElTriglyceride [Mass/Vol]187 mg/dLCritically high<=150[facility] on above:Performed By: #### CMP, LIPID #### [facility] [address] [place] [address] Dr. Phani ElVLDL CALC37.4 mg/dLTrumbull Regional Medical CenterComment on above: Performed By: #### CMP, LIPID #### [facility] [address] [place] [address] Dr. Phani ElPROF 14(COMP METB)on 46-82-5791Jrsdbnj [Mass/Vol]3.6 g/dLNormal 3.4-5.0The [facility]edoComment on above:Performed By: #### CMP, LIPID ####[facility] [address] [address]Dr. Yilan ChangAlbumin/Globulin [Mass ratio]1.1 {ratio}NormalThe [facility] Comment on above:Performed By: #### CMP, LIPID ####[facility] [address] [address]Dr. Yilan ChangALP [Catalytic activity/Vol]91 U/UHyjbvq73-381Fot [facility]edoComment on above:Performed By: #### CMP, LIPID ####[facility] [address] [address]Dr. Yilan ChangALT [Catalytic activity/Vol]34 U/L Xgsklw31-93Ehh [facility]edoComment on above:Performed By: #### CMP, LIPID ####[facility] [address] [address]Dr. Yilan ChangAnion gap [Moles/Vol]11.6 mmol/LNormalThe [facility]edoComment on above:Performed By: #### CMP, LIPID ####[facility] [address] [place], [place] [address]Dr. Yilan ChangAST [Catalytic activity/Vol]18 U/L Qksqci43-31Rht [facility] ToledoComment on above:Performed By: #### CMP, LIPID ####[facility] [address] [address]Dr. Yilan ChangBilirubin [Mass/Vol]0.6 mg/dLNormal0.2-1.0The [facility] Comment on above:Performed By: #### CMP, LIPID ####[facility] C[address] [place], [place] [address]Dr. Yilan ChangCalcium [Mass/Vol]9.2 mg/dLNormal8.5-10.1The [facility]edoComment on above:Performed By: #### CMP, LIPID ####[facility] Z[address] [place], [place] [address]Dr. Yilan ChangChloride [Moles/Vol]106 mmol/LNormal 98-107The [facility]edoComment on above:Performed By: #### CMP, LIPID ####[facility] Pfmydlauka[address] [place], [place] [address]Dr. Yilan ChangCO2 [Moles/Vol]32.3 mmol/LCritically high21.0-32.0The [facility] ToledoComment on above:Performed By: #### CMP, LIPID ####[facility] Bav[address]kt[address] [place], [place] [address]Dr. Yilan ChangCreatinine [Mass/Vol]1.04 mg/dLCritically high0.55-1.02The [facility] ToledoComment on above:Performed By: #### CMP, LIPID ####[facility] [address]zx[address] [place], [place] [address]Dr. Yilan ChangEGFR-AF TAIWANESE>60Normal>=60The [facility] ToledoComment on above:Performed By: #### CMP, LIPID ####[facility] [address]um[address] [place], [place] [address]Dr. Yilan ChangEGFR- NON AF OKARITVU84 mL/min/1.56a9Miomxgxllc low>=60The [facility] ToledoComment on above:Performed By: #### CMP, LIPID ####[facility] [address] [place], [place] [address]Dr. Yilan ChangGlobulin (S) [Mass/Vol]3.4 g/dL NormalThe [facility] ToledoComment on above:Performed By: #### CMP, LIPID ####[facility] Z[address]lefa[address] [place], [place] [address]Dr. Yilan ChangGlucose [Mass/Vol]124 mg/dLCritically qmpb64-063Cdg [facility] Comment on above:Performed By: #### CMP, LIPID ####[facility] [address] [place], [place] [address]Dr. Yilan ChangPotassium [Moles/Vol]3.9 mmol/LNormal3.5-5.1The [facility]edoComment on above: Performed By: #### CMP, LIPID ####[facility] [address] [place], [place] [address]Jo. Phani ElProtein [Mass/Vol]7.0 g/dLNormal6.4-8.2 The [facility]edoComment on above:Performed By: #### CMP, LIPID ####[facility] [address] [place], [place] [address]Eq. Phani El Sodium [Moles/Vol]146 mmol/LCritically uype865-015Jsx [facility] ToledoComment on above:Performed By: #### CMP, LIPID ####[facility] [address] [address]Dr. Loryzach ChangUrea nitrogen [Mass/Vol]14.0 mg/dLNormal7.0-18.0The [facility] ToledoComment on above:Performed By: #### CMP, LIPID ####[facility] [address] [place], [place] [address]Dr. Phani ChangUrea nitrogen/Creatinine [Mass ratio]13.5 mg/mgNoTriHealth [facility] HospitalComment on above:Performed By: #### CMP, LIPID ####[facility] [address] [address]Dr. Phani El VITAMIN B12on 18-29-8647Fjwivppio (Vitamin B12) [Mass/Vol]321.0 pg/mLNormal 193.0-986.0[facility] CampusComment on above:Performed By: #### VITAD, VITB12 #### [facility] [address] [place] [address] Dr. Phnai ElVITAMIN D 25 OHon 30-35-8596TGS D 25-OH58.7 ng/mLNormalThe [facility]edoComc.[facility]. [facility] on above:Performed By: #### VITAD, VITB12 #### [facility] [address] [place] [address] Dr. Phani Marie RANGESSEE [facility] SouthComment on above: Result Comment: <20 ng/mL Vit D deficient 20 - <30 ng/mL Vit D insufficient 30 - 100 ng/mL Vit D sufficient >100 ng/mL Potential ToxicityPerformed By: #### VITAD, VITB12 #### [facility] [address] [address] [address] Phani ElXR CHEST 2 Von 16-80-8632FM CHEST 2 VEXAM: XR CHEST 2 V HISTORY: Bronchitis COMPARISON: None. TECHNIQUE: PA and lateral views of the chest. FINDINGS: The cardiomediastinal silhouette is normal. No focal consolidation. There is no pneumothorax. No pleural effusion is noted. The osseous structures are intact. IMPRESSION: No focal consolidation. Electronically authenticated by: LORI FROST Date: 2022-05-05 10:05[facility] CenterAmbulatory Visit Summaryon 34-76-1927Ogubeqbgkx Visit Summary FRANKY GAGNON I :1965 Visit [...] user Vitamin B12 deficiency Vitamin D deficiency [facility] Surgery Office/Clinic Noteon 65-53-8877Rskaiva Surgery Office/Clinic NoteChief Complaint colonoscopy follow up HPI Staff 27 [...] swallowing difficulties, no hearing loss, no ear infection(s),no nose bleeds. Cardiovascular: normal blood pressure, no [...] virus vaccine, inactivated - Not Given Patient RefusesNormalCleveland Clinic Medina HospitalComment on above:Result Comment: Electronically Signed By: NABIL AMADOR, Bryson Steinberg\Date and Time Signed: 03/24/22 13:12 ESTRemb[facility] 45-06-4932Totensvim From: Kristine Harrison LPN To: N - Clinical; Sent: 03/24/2022 13:05:34 EST Show up: 01/26/2032 07:00:00 EST Subject: colonoscopy recall Due Date/Time: 02/26/2032 07:00:00 EST Reminder/Recall Patient is due for screening colonoscopy 02/26/2032.[facility] HospitalCovid-19 PCR (CVDTBH)on 19-82-6135GIWA-CoV-2 (COVID-19) RNA MARISOL+probe Ql (Unsp spec)DetectedAbnormalNOT DETECTEDThe [facility]edoComment on above: Result Comment: This test is not yet approved or cleared by the [place] FDA. When there are no FDA-approved or cleared tests available, and other criteria are met, FDA can make tests available under an emergency access mechanism called an Emergency Use Authorization (EUA). The EUA for this test is supported by the [place] of Health and Human Service's (HHS's) declaration [...] which the test may no longer be used).Performed By: #### CVDTBH #### [facility] [address] [place] [address] Dr. Phani PearsonUENZA A AND B AGon 75-15-8115KZCRFVZBDGTMIAccess Hospital Dayton on above:Result Comment: Negative for Flu A protein angiten. Infection due to Flu A cannot be ruled out. FluA angiten in the sample may be below the detection limit of the test.Performed By: #### INFLUAB ####[facility] [address] [place], [place] [address]Dr. Phani ElINFLUBNEGHSEE [facility] SouthComc.s. [facility] on above:Result Comment: Negative for Flu B protein antigen. Infection due to Flu B cannot be ruled out. FluB antigen in the sample may be below the detection limit of the test.Performed By: #### INFLUAB ####[facility] [address] [place], [place] [address]Dr. Phani ElINFLUENZA A AGNegativeNormalNEGATIVE SEE COMMENTThe [facility] ToledoComment on above:Performed By: #### INFLUAB ####[facility] [address] [place], [place] [address]Dr. Phani ChangINFLUENZA B AGNegativeNormalNEGATIVE SEE COMMENTThe [facility] Comment on above:Performed By: #### INFLUAB ####[facility] [address] [place], [place] [address]Dr. Phani ElCovid-19 PCR ([facility])on 06-54-2478DMAO-CoV-2 (COVID-19) RNA MARISOL+probe Ql (Unsp spec)DetectedAbnormalNOT DETECTEDThe [facility] ToledoComment on above:Result Comment: This test is not yet approved or cleared by the [place] FDA. When there are no FDA-approved or cleared tests available, and other criteria are met, FDA can make tests available under an emergency access mechanism called an Emergency Use Authorization (EUA). The EUA for this test is supported by the [place] of Health and Human Service's declaration that circumstances exist to justify the emergency use of in vitro diagnostics for the detection and/or diagnosis of the virusthat causes COVID-19. This EUA will remain in effect for the duration of the COVID-19 declaration justifying emergency of IVDs, unless it is terminated or revoked by the FDA (after which the test mayno longer be used).Performed By: #### CVDTBH #### [facility] [address] [place] [address] Dr. Phani ElPathology Noteon 73-43-9757Hdjmjhpcw Note [id number]#1.00CD:127[facility] HospitalOutside Colonoscopyon 34-55-0366Ytfgxbi Colonoscopy [id number]#1.00CD:127[facility] HospitalReminderson 93-29-1132Wmsfxxpyr From: Kristine Harrison LPN To: Kristine Harrison LPN; Sent: 02/26/2022 11:14:25 EST Show up: 05/18/2022 07:00:00 EDT Subject: Ambulatory Reminder Due Date/Time: 05/27/2022 07:00:00 EDT Reminder/Recall log in to extra lap [employer] in [place] to keep account activeNoUniversity Hospitals Geneva Medical CenterLab Reportson 78-28-5859Kdt Reports [id number]#1.00CD:127[facility] HospitalCovid-19 PCR (CVDTB)on 80-83-6063LMIY-CoV-2 (COVID-19) RNA MARISOL+probe Ql (Unsp spec)Not detectedNormalNOT DETECTEDThe [facility]edoComment on above: Result Comment: This test is not yet approved or cleared by the [place] FDA. When there are no FDA-approved or cleared tests available, and other criteria are met, FDA can make tests available under an emergency access mechanism called an Emergency Use Authorization (EUA). The EUA for this test is supported by the [place] of Health and Human Service's (HHS's) declaration [...] of clinical signs and symptoms consistent with SARS-CoV-2.Performed By: #### CVDTBH ####[facility] [address] [place], [place] [address]IyCindy ElPre- Certification Formon 43-71-6641Rly-Certification Form [id number]#1.00CD:[address] [place], [place] [address]Consent for Procedure/Surgeryon 07-36-1750Bwscowj for Procedure/Surgery [id number]#1.00CD:[address] [place], [place] [address]Formson [id number]#1.00CD:[address] [place], [place] [address]Physician Referralon 05-23-3229Mezztomti [id number]#1.00CD:[address] [place], [place] [address]MRI Knee w/o Lefton 16-11-5324QNZ Knee w/o LeftHISTORY: Continued left-sided knee pain. History of prior [...] and signed by Jason Sanchez on 12/25/2021 1505NoalNorthonorhealth scott[facility]om[facility] centern [facility] WO CONon 88-85-0604WAO LSPINE WO CON EXAMINATION: MRI [facility] CON HISTORY: Low back pain COMPARISON: No [...] Electronically authenticated by: NADINE GRANT Date: 2021-12-04 17:54NoTriHealth [facility] HospitalXR LSPINE 2_3 VIEWSon 86-45-8118QT LSPINE 2_3 VIEWSEXAMINATION: XR LSPINE 2_3 VIEWS HISTORY: Low back pain COMPARISON: 05/26/2016 FINDINGS: BONES: Normal alignment with no acute fracture or spondylolisthesis. Mild degenerative spondylosis and facet osteoarthropathy DISC SPACES: Mild multilevel disc space narrowing most significant at L5-S1 PARASPINOUS: Negative. No paraspinous abnormality is seen. OTHER: Negative. IMPRESSION: Mild degenerative changes Electronically authenticated by: NADINE GRANT Date: 2021-09-30 07:20[facility] CenterMRI Knee w/o Lefton 75-52-6984HAF Knee w/o LeftHISTORY: Knee pain and instability. COMPARISON: Radius the [...] and signed by Robby Diaz on 07/30/2021 1316NormalNorthern West Virginia Family Therapist Vital Signs Date TimeVital SignValuePerforming QtirzjasaYfywoecj96-50-1874 11:25-0400Body .1 Melvi ADKINS Work Phone: [facility]09-23-2025 11:25-0400 Body mass index (BMI) [Ratio]41.8 kg/m2Lisa Aichholz [employer] Work Phone: [facility]09-23-2025 11:25-0400 Body ioybukxlvog02.5 [degF]Jaymie Maddyhholz [employer] Work Phone: [phone] [place], [place] [address]498709-23-2025 11:25-0400 Body .07 kgLi Aichholz [employer] Work Phone: [phone] [place], [place] [address]498[address]-23-2025 11:25-0400 Diastolic blood sesihenb37 mm[Hg]Jaymie Maddyhholz [employer] Work Phone: [phone]09-23-2025 11:25-0400 Heart rate87 /minLisa Aichholz [employer] Work Phone: [phone]09-23-2025 11:25-0400 Respiratory rate22 /minLisa Aichholz [employer] Work Phone: [phone] [place], [place] [address]498[address]-23-2025 11:25-0400 SaO2% (BldA) [Mass fraction]92 %Jaymie Maddyhholz [employer] Work Phone: [phone] [place], [place] [address]498[address]-23-2025 11:25-0400 Systolic blood mm[Hg]Jaymie Maddyhholz [employer] Work Phone: [phone] [place], [place] [address]-24-2025 13:00-0400 Body mass index (BMI) [Ratio]40.77 kg/n6Hjjssm Beatriz DO Work Phone: [facility] HospitalDklmivxaqu66-31-8980 13:00-0400Body ougzgz158.13 kgLeanne Beatriz DO Work Phone: [facility] HospitalDqvgkcpiix11-28-6631 13:00-0400Diastolic blood szxakdxo79 mm[Hg]Nat Beatriz DO Work Phone: [facility] HospitalAydlcgrkxe30-75-4152 13:00-0400Heart rate86 /min Nat Beatriz DO Work Phone: noChristian HospitalRfnulbvwkp23-80-2563 13:00-9559WrY0% (BldA) [Mass fraction]94 %Nathelen Henderson DO Work Phone: noChristian HospitalXnormpcswj54-32-9006 13:00-0400Systolic blood gynnwcbr708 mm[Hg]Nathelen Henderson DO Work Phone: noChristian HospitalZamgyefbom17-67-8887 10:09-0400Body mass index (BMI) [Ratio]40.9 kg/m2Lisa Maddyhholz [employer] Work Phone: [facility] HospitalKqmyxloucy98-10-6938 10:09-0400Body temperature 98.1 [degF]Jaymie Alessandroz [employer] Work Phone: [facility] HospitalZzsoboxqkl92-07-1764 10:09-0400Body akirvn915.49 kgLisa Maddyhsandraz [employer] Work Phone: [facility] HospitalBlvvfynmao88-09-0355 10:09-0400Diastolic blood zpkjmlue15 mm[Hg]Jaymie Ducholz [employer] Work Phone: [facility] HospitalLyjzcppwuh50-98-3749 10:09-0400Heart rate80 /min Jaymie Maddyhholz [employer] Work Phone: [facility] HospitalZhjtzwceew84-35-4519 10:09-0400Respiratory rate24 /minLisa Maddyhholz [employer] Work Phone: [facility] HospitalZuwfqbwfzx28-54-1284 10:09-3249CtY2% (BldA) [Mass fraction]92 %Jaymie Maddyhholz [employer] Work Phone: [facility] HospitalRjoxlikohf20-80-4077 10:09-0400Systolic blood tlmvjxba993 mm[Hg]Jaymie Maddyhholz [employer] Work Phone: [facility] HospitalOydqjubqab09-93-4132 14:53-0500Body mass index (BMI) [Ratio]40.7 kg/o8Xplrdafksep Wong DO Work Phone: [facility] HospitalSsgxusivmw14-89-6561 14:53-0500Body puxlth711.95 kgChristopher Wong DO Work Phone: [facility] HospitalChbyffhnwd59-20-2362 14:53-0500Diastolic blood uemtbscz77 mm[Hg]Saumya Venturaett DO Work Phone: noChristian HospitalCqakrviozs26-29-6265 14:53-0500Heart rate76 /min Christmckayla Back DO Work Phone: [facility] HospitalTwtblcfzrs78-19-1151 14:53-6531JeM4% (BldA) [Mass fraction]94 %Christmckayla Back DO Work Phone: [facility] HospitalRmbeyzwuqf18-94-2684 14:53-0500Systolic blood mm[Hg]Saumya Back DO Work Phone: [facility] HospitalCctrgzmlfz15-74-6758 13:31-0500Body fpmnpu261.1 Devinisa Alban [employer] Work Phone: [phone] [place], [place] [address]Sqjuonzqzc91-17-4930 13:31-0500Body mass index (BMI) [Ratio]40.94 kg/m2Lisa Alessandroz [employer] Work Phone: [facility] HospitalCrpcbwnpaq25-48-1418 13:31-0500Body temperature 98.1 [degF]Jaymie Alban [employer] Work Phone: [facility] HospitalPxlgoxacom75-39-4548 13:31-0500Body xigjjl856.58 kgLisa Alban [employer] Work Phone: [facility] HospitalCrhigwruwp72-55-9681 13:31-0500Diastolic blood ojktxuzp01 mm[Hg]Jaymie Alessandroz [employer] Work Phone: [facility] HospitalAbprqyjpbc52-27-6089 13:31-0500Heart rate87 /min Jaymie Alessandroz [employer] Work Phone: [facility] HospitalBgmkobkqkx59-53-9989 13:31-0500Respiratory rate18 /minLisa Alessandroz [employer] Work Phone: [phone] [place], [place] [address]Zjfpfykkdz10-99-1351 13:31-6787FsD8% (BldA) [Mass fraction]94 %Jaymie Ducholz [employer] Work Phone: [facility] HospitalHrndwabvzk07-18-4276 13:31-0500Systolic blood quzpvzhr970 mm[Hg]Jaymie Aichholz [employer] Work Phone: [facility] HospitalEkftxrmhwj92-51-7159 10:30-0500Body ztxrhu287.1 cmLisa Aichholz [employer] Work Phone: [phone] [place] [address]-25-2024 10:30-0500Body mass index (BMI) [Ratio]40.6 kg/m2Lisa Maddyhholz [employer] Work Phone: [phone] [place] [address]-25-2024 10:30-0500Body temperature 98.1 [degF]Jaymie Maddyhholz [employer] Work Phone: [phone] [place], [place] [address]Rlunekybhb26-85-8555 10:30-0500Body iymdhs427.68 kgLisa Maddyhholz [employer] Work Phone: [phone] [place], [place] [address]Rzsgkejchv52-43-5930 10:30-0500Diastolic blood onyxrzcy01 mm[Hg]Jaymie Maddyhholz [employer] Work Phone: [phone] [place], [place] [address]Nmudmauepn01-83-9308 10:30-0500Heart rate89 /min Jaymie Maddyhholz [employer] Work Phone: [phone] [place] [address]-25-2024 10:30-0500Respiratory rate19 /minLisa Maddyhholz [employer] Work Phone: [phone] [place] [address]-25-2024 10:30-3656RwJ3% (BldA) [Mass fraction]91 %Jaymie Maddyhholz [employer] Work Phone: [phone] [place] [address]-25-2024 10:30-0500Systolic blood bzhrfdux072 mm[Hg]Jaymie Aichholz [employer] Work Phone: [phone] [place], [place] [address]Ltveavlxxl83-00-5430 13:13-0500Body yaqfut038.1 cmLisa Aichholz [employer] Work Phone: [facility] HospitalTwuuxcllin37-79-0893 13:13-0500Body mass index (BMI) [Ratio]42.9 kg/m2Lisa Alessandroz [employer] Work Phone: [place] [address]Czlvihbeuv99-98-1238 13:13-0500Body temperature 97.5 [degF]Jaymie Alessandroz [employer] Work Phone: [facility] HospitalEkgsdjxwdg80-05-4640 13:13-0500Body iwsgfw284.94 kgLisa Alessandroz [employer] Work Phone: [place] [address]Nofyaipsmy15-13-8141 13:13-0500Diastolic blood kqtckeog11 mm[Hg]Jaymie Alessandroz [employer] Work Phone: [place] [address]Acrefwgehj72-15-9753 13:13-0500Heart rate71 /min Jaymie Alessandroz [employer] Work Phone: [place] [address]Yhyhpiloou48-15-3536 13:13-0500Respiratory rate20 /minLisa Alban [employer] Work Phone: [place] [address]Yhmyfgzghm91-74-3331 13:13-4291MaQ7% (BldA) [Mass fraction]95 %Jaymie Alessandroz [employer] Work Phone: [place] [address]Hjsavgfbax81-86-6444 13:13-0500Systolic blood tgqegbku288 mm[Hg]Jaymie Alessandroz [employer] Work Phone: [facility] HospitalZixnvcfdqo66-33-4308 13:35-0500Body .1 cmLisa Ducholz [employer] Work Phone: [facility] HospitalRupsvbsqdw14-87-1379 13:35-0500Body mass index (BMI) [Ratio]41.6 kg/m2Lisa Ducholz [employer] Work Phone: [facility] HospitalNekugdakxq62-78-6599 13:35-0500Body temperature 98.4 [degF]Jaymie Alessandroz [employer] Work Phone: [facility] HospitalOmqdvtjjwo97-18-7049 13:35-0500Body ovomnp259.4 kgJaymie Phoenix [employer] Work Phone: [facility] HospitalCshycuvxud77-86-6854 13:35-0500Diastolic blood djplaycz88 mm[Hg]Jaymie Phoenix [employer] Work Phone: [facility] HospitalVdciiwirou53-98-9463 13:35-0500Heart rate77 /min Jaymie Phoenix [employer] Work Phone: [facility] HospitalLlrzgxfswh43-19-6014 13:35-0500Respiratory rate18 /minLisa Phoenix [employer] Work Phone: [facility] HospitalNqyetabrtv53-10-5619 13:35-8495YmD9% (BldA) [Mass fraction]95 %Jaymie Phoenix [employer] Work Phone: [facility] HospitalSxavsfgwfq78-68-3621 13:35-0500Systolic blood bgctcnje853 mm[Hg]Jaymie Phoenix [employer] Work Phone: [facility] HospitalTtllldlusj41-33-3093 13:27-0500Blood Pressure LocationMichael NILL [facility]ec[facility] Uafazixg60-43-7886 13:27-0500Diastolic blood mm[Hg]Bryson NILL General Surgery Shkqpiwu27-43-0730 13:27-0500Heart rate 72 /minMichael NILL General Surgery Nzbfvvtt83-62-8834 13:27-0500 Respiratory rate16 /minMichael NILL General Surgery Cozwqphn31-22-9900 13:27-0500Systolic blood uhkzqedv375 mm[Hg]Bryson NILL [facility] Surgery [place] Encounters Encounter DateEncounter [facility] ProviderFacilityStart: 11-20-2024 End: 09-76-6640yzexnidzbgKufauat Vytautas Giedraitis MDFacility:PM Dionna Start: 10-31-2024 End: 69-20-7431mtsdbsgnoqSrby J Aichholz [employer]C Work Phone: [facility] Work Phone: Start: 10-31-2024 End: 77-70-1981Nhacrze encounter procedureJaymie Phoenix LABORER HOISTING-C-[facility] Work Phone: Start: 21-44-1589Ccygzta encounter procedureLisa Phoenix LABORER HOISTING-C Work Phone: [facility] 55-58-4517Enm- patient / Non-visitJaymie Phoenix LABORER HOISTING-C-[facility] Work Phone: Start: 09-29-2024 End: 41-12-9874KclmeiBwsb Aichholz LABORER HOISTING Work Phone: noms CW FMComment on above:Gastro-esophageal reflux disease without esophagitis; Mixed hyperlipidemia ; Fibromyalgia; Localized edemaStart: 09-19-2024 End: 89-12-5877Vyjqathhi Result EncounterGeneric External Data ProviderNOMS External Department UnsolicitedStart: 09-19-2024 End: 37-89-8359Rovdxrqtv Result EncounterGeneric External Data ProviderNOMS External Department UnsolicitedStart: 08-31-2024 End: 55-61-0558Yfjyqi Rafaela Henderson DO Work Phone: noms PULMStart: 08-31-2024 End: 40-55-5559Nlbkdh Rafaela Henderson DO Work Phone: noms PULMStart: 08-31-2024 End: 77-82-1069sjqcirmgluIMASLR K STRACKNot AvailableStart: 08-31-2024 End: 18-10-3066Lbvhqg outpatient new 45 minutesNat Henderson DO Work Phone: noms PULMComment on above:WINSOME (obstructive sleep apnea) (Primary Dx); Cigarette smokerStart: 37-01-7812Xejfpggfcp Earl HADLEY CredibleStart: 08-29-2024 End: 40-37-7642bvixdgzzznRjimyhkzjho AbdelazizFacility:Providence HospitalComment on above:Acute back pain with sciatica, unspecified laterality (Primary Dx)Start: 08-28-2024 End: 75-23-1642Vqtoev OnlyJaymie Phoenix LABORER HOISTING Work Phone: NOMS CWM FMComment on above:Acute back pain with sciatica, unspecified laterality (Primary Dx)Start: 08-05-2024 End: 61-59-9647LzqojtBhxz Aichholz LABORER HOISTING Work Phone: NOMS CWM FMComment on above:Tobacco dependenceStart: 07-31-2024 End: 55-00-0414Zgdyzna encounter procedureJaymie Phoenix NP Work Phone: NOLW CWM FMComment on above:Encounter for subsequent annual wellness visit (AWV) in Medicare patient (Primary Dx); Chronic kidney disease, stage 3a ([facility]-HCC); WINSOME (obstructive sleep apnea); COPD mixed type ([facility]); Gastroesophageal reflux disease, unspecified whether esophagitis present; Bilateral lower extremity edema; Anxiety and depression ; Tobacco dependence; Mixed hyperlipidemia ; Fibromyalgia; Environmental and seasonal allergies; Gastro-esophageal reflux disease without esophagitis; Personal history of other diseases of the nervous system and sense organs; Screening for lung cancerStart: 07-31-2024 End: 50-78-6556zvzhwdsuqzENWD AICHHOLZNot AvailableStart: 07-05-2024 End: 84-30-2389FlphvaBant Aichholz LABORER HOISTING Work Phone: NOMS CWM FMComment on above:FibromyalgiaStart: 06-26-2024 End: 60-74-6482JarnksBakm Aichholz LABORER HOISTING Work Phone: NOMS CWM FMComment on above:Tobacco dependence (Primary Dx)Start: 06-14-2024 End: 41-49-4740XufkmnFvgx Aichholz LABORER HOISTING Work Phone: NOMS CWM FMComment on above:Mixed hyperlipidemia (CMS/HCC)Start: 05-09-2024 End: 28-55-0109UamnggLerd Aichholz LABORER HOISTING Work Phone: NOMS CWM FMComment on above:FibromyalgiaStart: 04-19-2024 End: 09-04-2638XrfxmxNopz Aichholz LABORER HOISTING Work Phone: NOMS CWM FMComment on above:Environmental and seasonal allergies (Primary Dx); COPD mixed type (CMS/HCC)Start: 04-08-2024 End: 33-88-2229JcjyylIlsu Aichholz LABORER HOISTING Work Phone: NOMS CWM FMComment on above:Fibromyalgia; Localized edema; Mixed hyperlipidemia (CMS/HCC)Start: 03-14-2024 End: 53-53-5403Bcsves outpatient new 30 minutesChristopher Wong DO Work Phone: aNA BELLEVUEComment on above:Drug-induced Parkinson's disease (CMS/HCC) (Primary Dx); TremorStart: 03-14-2024 End: 81-20-9927zbwimlmfuzLDMBOJOFHRB HASSETTNot AvailableStart: 03-14-2024 End: 39-51-2125Udpntp flowsheetChristopher Wong DO Work Phone: aNA BELLEVUEStart: 03-14-2024 End: 09-86-6128Fhifhl flowsheetChristopher Wong DO Work Phone: ANA BELLEVUEStart: 02-10-2024 End: 19-88-5220Eml[place] flowsheetLisa Aichholz LABORER HOISTING Work Phone: NOMS CWM FMStart: 02-10-2024 End: 26-53-3324Bciwqr flowsheetLisa Aichholz LABORER HOISTING Work Phone: NOMS CWM FMStart: 02-10-2024 End: 55-14-4041bqdzbfwgshOKUU AICHHOLZNot AvailableStart: 02-10-2024 End: 20-78-2908Dkdnic outpatient visit 25 minutesLisa Aichholz LABORER HOISTING Work Phone: noms CWM FMComment on above:COPD with acute exacerbation ([facility]) (Primary Dx); Morbid (severe) obesity due to excess calories ([facility]); Body mass index (BMI) 40.0-44.9, adult ([facility]); WINSOME (obstructive sleep apnea); COPD mixed type ([facility]); Gastroesophageal reflux disease, unspecified whether esophagitis present; Tobacco dependence; Gastro-esophageal reflux disease without esophagitis; TremorStart: 02-03-2024 End: 07-38-9549NrefqbQhwr Aichholz LABORER HOISTING Work Phone: noms CWM FMComment on above:FibromyalgiaStart: 01-27-2024 End: 95-00-8043Btnwylzbq Result EncounterLisa Aichholz LABORER HOISTING Work Phone: noms External Department UnsolicitedStart: 01-27-2024 End: 08-13-3154Cbonqelbd Result EncounterLisa Aichholz LABORER HOISTING Work Phone: noms External Department UnsolicitedStart: 01-24-2024 End: 09-00-6475Bvcbaecdh Result EncounterLisa Aichholz LABORER HOISTING Work Phone: noms External Department UnsolicitedStart: 01-24-2024 End: 26-02-9478Lvwqfsduh Result EncounterLisa Aichholz LABORER HOISTING Work Phone: noms External Department UnsolicitedStart: 01-03-2024 End: 16-77-4958Qetqhv flowsheetLisa Aichholz LABORER HOISTING Work Phone: noms CWM FMStart: 01-03-2024 End: 98-23-4672Paqybw flowsheetLisa Aichholz LABORER HOISTING Work Phone: noms CWM FMStart: 01-03-2024 End: 20-07-0386Cwtral outpatient visit 25 minutesLisa Aichholz LABORER HOISTING Work Phone: noMS CWM FMComment on above:WINSOME (obstructive sleep apnea) (Primary Dx); COPD mixed type ([facility]); Primary hypertension ([facility]); Fibromyalgia; BMI 40.0-44.9, adult ([facility]); Tobacco dependence; Mixed hyperlipidemia ([facility]); Vitamin D deficiency; Vitamin B12 deficiency; COPD with acute exacerbation ([facility])Start: 01-03-2024 End: 51-15-9387tiexqclrkhMDLU KENot AvailableStart: 12-31-2023 End: 82-60-7065WcfzmmMgqo Aichholervin LABORER HOISTING Work Phone: NOPM CWM FMStart: 12-30-2023 End: 21-84-2174RuaykaGdps Aichholervin LABORER HOISTING Work Phone: noms CWM FMComment on above:FibromyalgiaStart: 12-25-2023 End: 66-01-5669Zarwaefcu Result EncounterGeneric External Data ProviderNOMS External Department UnsolicitedStart: 12-25-2023 End: 24-43-6639Xbqupctrq Result EncounterGeneric External Data ProviderNOMS External Department UnsolicitedStart: 12-24-2023 End: 87-33-0213Wfvcrmkny Result EncounterGeneric External Data ProviderNOMS External Department UnsolicitedStart: 12-24-2023 End: 11-82-1665Wgqclvutd Result EncounterGeneric External Data ProviderNOMS External Department UnsolicitedStart: 11-24-2023 End: 21-40-0806AwsmesOhdo Aichholervin LABORER HOISTING Work Phone: NOMS CWM FMComment on above:Mixed hyperlipidemia ([facility])Start: 10-26-2023 End: 85-34-3423HvafrtBqgn Aichholervin LABORER HOISTING Work Phone: NOMS CWM FMComment on above:Fibromyalgia; Gastro-esophageal reflux disease without esophagitisStart: 97-66-6674Sjfguaf encounter procedureLisa Phoenix LABORER HOISTING Work Phone: NOMS HealthcareStart: 86-12-6337Gyslon flowsheetJaymie Maddyashley LABORER HOISTING Work Phone: NOMS CWM FMStart: 77-11-3084Xnnjlo flowsheet Maddywellspan york hospitalervin LABORER HOISTING Work Phone: NOMS CWM FMStart: 03-25-2023 End: 61-89-8013Mvcqso outpatient visit 25 minutesLi Maddyashley LABORER HOISTING Work Phone: noMS CWM FMComment on above:Edema of right lower extremity (Primary Dx); BMI 40.0-44.9, adult (CMS/HCC); Shortness of breath; COPD mixed type (CMS/HCC); Primary hypertension (CMS/HCC); Bilateral lower extremity edemaStart: 03-16-2023 End: 52-22-2566Kbvjtj outpatient visit 25 minutesLi Maddyascencionashley LABORER HOISTING Work Phone: noms CWM FMComment on above:COPD mixed type (CMS/HCC) (Primary Dx); Tobacco dependence; BMI 40.0-44.9, adult (CMS/HCC); Body mass index [BMI] 40.0-44.9, adult (Z68.41); Primary hypertension (CMS/HCC); Bilateral lower extremity edemaStart: 97-76-1397krtqitunskSCP JAYMIE PHOENIX Facility:G9Ihtic: 05-29-2022 End: 35-57-3765kyeqoendrrYVU JAYMIE ALBANFacility:P9Rmqsl: 05-05-2022 End: 04-05-1035vceoeuwqhsFJF JAYMIE ALBANFacility:O4Ogekl: 04-30-2022 End: 20-37-9703vbiswakzxgGD JIM S ALLAN .Facility:X3Catmy: 03-31-2022 End: 69-55-8693tncqsqelvnKC JIM S ALLAN .Facility:L4Ogibb: 03-27-2022 ambulatoryDR JIM S ALLAN .Facility:L8Qxxas: 03-24-2022 End: 96-82-2402ofqzlabgytZdzpxgw R NILLFacility: [place]vueStart: 03-17-2022 ambulatoryMichael R NILLFacility: [place]walkStart: 03-10-2022 End: 71-77-1846gandekcuhjNRR JAYMIE AICHSANDRAZFacility:W9Qucar: 84-64-6812Mmixpflom for preprocedural laboratory examinationDR JIM S ALLAN .[facility] Start: 02-28-2022 End: 87-42-2671Gykgcflux for preprocedural laboratory examinationCNP JAYMIE AICHSANDRAZFacility:M3Zehyb: 02-28-2022 End: 90-39-0235jegcmwjdavNIN JAYMIE AICHHOLZFacility:U9Jcwed: 02-25-2022 End: 85-33-9667xsvsmzzfvdApfirea R NILLFacility::[id number]: 02-21-2022 End: 47-56-5911urznsahnnkVR BRYSON NILL .Facility:B2Wmuqj: 02-06-2022 End: 60-04-8991bpfjurwbcdUFCC THORNE .Facility:G4Ufhwz: 02-03-2022 End: 75-43-4091gpsnyvvbnrIqdl L AichholzFacility:[facility]ueStart: 02-03-2022 End: 34-20-3743Ixsnjip encounter procedureMichael R NILL General Surgery Nill/Said [place] Start: 01-13-2022 End: 88-06-6631wlxqwvfusmBE JIM S ALLAN .Facility:S3Lljen: 01-08-2022 End: 67-95-4300avhrcorisjAK JIM S ALLAN .Facility:L9Yxsay: 01-06-2022 ambulatoryMichael R NILLFacility:[facility] CenterueStart: 12-23-2021 End: 68-47-6217dgezgweysgOD JIM S ALLAN .Facility:H7Eyffy: 12-09-2021 End: 40-65-1331oguynmrtriBU JIM S ALLAN .Facility:S0Fzfmy: 12-04-2021 End: 15-63-6120girtpaclbzFYC JAYMIE AICHHOLZFacility:G5Dgimt: 12-03-2021 End: 75-81-4245bheqppzezrMOWJRX RODRIGUEZ .Facility:D4Lvapx: 10-10-2021 End: 49-82-7646hkljteaapeRO DEMETRIUS MENDEZ .Facility:M0Wpuxy: 09-29-2021 End: 59-59-0875nkhavpplzpMJI JAYMIE PHOENIXFacility:E3Ttsbd: 09-20-2021 End: 63-14-9381euteplcbjeNDTBTC RODRIGUEZ .Facility:H1 Procedures DateProcedureProcedure DetailPerforming ClinicianStart: 43-80-9359OH LUMBAR SPINE 6V W BENDINGGeneric External Data ProviderStart: 25-72-6257MianmaxmvabStjy Aichholz LABORER HOISTING Work Phone: Start: 40-69-7109UNE MICROALB CREAT RATIO RANDOMLisa Ducholz LABORER HOISTING Work Phone: Start: 94-82-4749ZVH BASIC METABOLIC PANELLisa Francoiservin LABORER HOISTING Work Phone: Start: 83-40-1945DNE LIPID PROFILE (FASTING)Jaymie Phoenix LABORER HOISTING Work Phone: Start: 63-02-9619OVYBK CULTURE 2Generic External Data ProviderStart: 70-98-5704VWBGT CULTURE 1Generic External Data ProviderStart: 20-19-7561QLVMT CULTURE 2Generic External Data ProviderStart: 30-16-4049PMQVG CULTURE 1Generic External Data ProviderStart: 92-54-9827VtmxyibgszsWura Maddyhholz LABORER HOISTING Work Phone: Start: 96-27-6458CupyvvjyoccEefh Maddyhholz LABORER HOISTING Work Phone: Cesarean sectionMichael NILL Ligation of fallopian tubeMichael NILL Repair of meniscusMichael NILL Total abdominal hysterectomy with bilateral salpingo-oophorectomyMichael NILL Plan of Treatment DateCare ActivityDetailAuthorStart: 90-30-8450Cpguvjslz for malignant neoplasm of colonNOMS HealthcareStart: 08-02-2025 End: 52-44-1206Scocpkz encounter whxxdspny36/25/2026 10:30 AM EDT Office Visit N[facility] [address] [place] [address] Jaymie Phoenix, NILE [address] [place] [address] [facility] FMStart: 06-23-2026Medicare Annual Wellness (AWV) Medicare Annual Wellness (AWV)NOM HealthcareStart: 50-52-6990Dfhsstojx for malignant neoplasm of breastMammogramNOMS HealthcareStart: 29-14-4315Mvznrhcre for malignant neoplasm of colonFIT-DNANOMS HealthcareStart: 12-07-2024 End: 44-18-0762Tijnjqi encounter procedureNOMERCY [facility] PULMStart: 46-93-8297Tubegicgk vaccinationNOMS HealthcareStart: 09-27-2024 End: 99-90-9174Lcmnpwn encounter wgcesrffq36/20/2025 8:40 AM EDT [facility] [address] [place] [address] Jaymie Phoenix, NILE [address] [place] [address] [facility] FMStart: 08-31-2024 End: 55-45-6465Emllhbc encounter vwxnovbty90/24/2025 1:00 PM EDT Consult NOM[facility] PUL [address] [place] [address] Nat Henderson, [address] [place] [address] [facility] PULMStart: 07-31-2024 End: 93-76-0596US Chest for screening WO contrastCT lung screening low dose Imaging Routine Tobacco dependence Expected: 07/31/2024, Expires: 07/31/2025[facility] Healthcare Work Phone: Comment on above:Expected: 07/31/2024, Expires: 07/31/2025Start: 07-31-2024 End: 13-49-3270Ytqvfui encounter edjsvezvf34/23/2025 10:30 AM EDT Office Visit [facility]OM[facility] CWM FM [address] [place] [address] Jaymie Phoenix, LABORER HOISTING [address] [place] [address] NOMS CW FMStart: 65-55-3703Vnwkjpwfy vaccinationInfluenza Vaccine (#1)NOMS HealthcareComment on above:Postponed from 10/10/2023 (Patient Refused)Start: 06-05-2024 End: 66-70-6394Tqzqlno encounter jepzoypsr14/28/2025 3:40 PM EDT Office Visit [facility] [place] [address] [place] [address] Sherice Tristan NP [address] [place] [address] [facility] LIMAtart: 04-25-2025Medicare Annual Wellness (AWV)Medicare Annual Wellness (AWV)NOMS HealthcareStart: 05-10-2024 End: 99-00-2953Bhxivya encounter paromqgmo60/02/2025 2:00 PM EDT Office Visit [facility] C[facility] [address] [place] [address] Jaymie Phoenix, LABORER HOISTING [address] [place] [address] NOMS CWM FMStart: 89-53-4834Inrahtgtn vaccinationInfluenza Vaccine (#1)NOMS HealthcareComment on above:Postponed from 10/10/2023 (Patient Refused)Start: 58-79-2006Jffuaqims for malignant neoplasm of breastMammogramNOMS HealthcareStart: 03-14-2024 End: 91-37-4968Eqoclbq encounter atdcoqhkg83/04/2025 3:00 PM EST Office Visit [facility] [address] [place] [address] Suamya Back DO [address] [place] [address] Gaurang VILLAREALComment on above:TremorStart: 01-26-2024 End: 39-51-1978Txcctdb encounter njgpwisbs57/18/2024 10:30 AM EST Office Visit [facility] [address] [place] [address] Jaymie Phoenix, NILE [address] [place] [address] NOMS CWM FMStart: 01-03-2024 End: 100857-ixhvqwasextuyg D3 [Mass/volume] in Serum or PlasmaVitamin D 25 hydroxy Lab Routine Vitamin D deficiency Expected: 01/03/2024 (Approximate), Expires: 01/02/2025NOKY HealthcareComment on above:Expected: 01/03/2024 (Approximate), Expires: 01/02/2025Start: 01-03-2024 End: 59-03-3206Yafqt metabolic 1998 panel - Serum or PlasmaBasic metabolic panel Lab Routine Primary hypertension (CMS/HCC) Expected: 01/03/2024 (Approximate), Expires: 01/02/2025NOKY HealthcareComment on above:Expected: 01/03/2024 (Approximate), Expires: 01/02/2025Start: 01-03-2024 End: 96-01-2474Qptbkheks (Vitamin B12) [Mass/volume] in Serum or PlasmaVitamin B12 Lab Routine Vitamin B12 deficiency Expected: 01/03/2024 (Approximate), Expires: 01/02/2025NOKY HealthcareComment on above:Expected: 01/03/2024 (Approximate), Expires: 01/02/2025Start: 01-03-2024 End: 62-13-0095Efnyz 1996 panel - Serum or PlasmaLipid panel Lab Routine Mixed hyperlipidemia (CMS/HCC) Expected: 01/03/2024 (Approximate), Expires:01/02/2025 NOMS HealthcareComment on above:Expected: 01/03/2024 (Approximate), Expires: 01/02/2025Start: 01-03-2024 End: 17-83-6988Vsancyhhliwp/Creatinine panel in random UrineMicroalbumin / creatinine, urine ratio Lab Routine Primary hypertension (CMS/HCC) Tobacco dependence Expected: 01/03/2024 (Approximate), Expires: 01/02/2025[facility] Work Phone: Comment on above:Expected: 01/03/2024 (Approximate), Expires: 01/02/2025Start: 01-03-2024 End: 73-75-1700Lmggdjksbq complete panel - UrineUrinalysis with reflex microscopic (clean catch) Lab Routine Primary hypertension (CMS/HCC) Tobacco dependence Expected: 01/03/2024 (Approximate), Expires: 01/02/2025NOKY HealthcareComment on above:Expected: 01/03/2024 (Approximate), Expires: 01/02/2025Start: 01-03-2024 End: 26-95-1235Tkvrakz encounter procedureNOMS CWM FMComment on above:WINSOME (obstructive sleep apnea) (Primary Dx); COPD mixed type (CMS/HCC); Primary hypertension (CMS/HCC); Fibromyalgia; BMI 40.0-44.9, adult (CMS/HCC); Tobacco dependence; Mixed hyperlipidemia (CMS/HCC); Vitamin D deficiency; Vitamin B12 deficiencyStart: 37-40-4525Rblxrllyw vaccinationInfluenza Vaccine (#1)NOMS HealthcareStart: 10-49-7175Fhxsfjwid vaccinationInfluenza Vaccine (#1) NOMS HealthcareComment on above:Postponed from 10/09/2022 (Patient Refused) Start: 04-06-2023 End: 77-29-9540Ngfhvef encounter qllmacsum59/27/2024 1:40 PM EST Office Visit [facility] [address] [place] [address] Jaymie Phoenix NP [address] [place] [address] NOMS CWM FMStart: 03-25-2023 End: 81-48-6854TJV W Auto Differential panel - BloodCBC and differential Lab Routine Edema of right lower extremity Expected: 03/25/2023 (Approximate), Expires: 03/25/2024NOKY HealthcareComment on above:Expected: 03/25/2023 (Approximate), Expires: 03/25/2024Start: 03-25-2023 End: 39-79-7398Xnzgdvfcuefus metabolic 2000 panel - Serum or PlasmaComprehensive metabolic panel Lab Routine Edema of right lower extremity Expected: 03/25/2023 (Approximate), Expires: 03/25/2024[facility] HealthcareComment on above:Expected: 03/25/2023 (Approximate), Expires: 03/25/2024Start: 03-25-2023 End: 94-36-6778Ajleke D-dimer FEU [Mass/volume] in Platelet poor plasmaD-dimer, quantitative Lab Routine Edema of right lower extremity Expected: 03/25/2023 (Approximate), Expires: 03/25/2024[facility] HealthcareComment on above:Expected: 03/25/2023 (Approximate), Expires: 03/25/2024Start: 03-25-2023 End: 97-41-2692TA.doppler Lower extremity vein - rightVascular US lower extremity venous duplex right Imaging STAT Edema of right lower extremity Expected: 03/25/2023, Expires: 03/25/2024[facility] Healthcare Work Phone: Comment on above:Expected: 03/25/2023, Expires: 03/25/2024Start: 03-25-2023 End: 42-12-4372PP Chest 2 ViewsXR chest 2 views Imaging Routine Edema of right lower extremity Shortness of breath Expected: 03/25/2023, Expires: 03/25/2024 [facility] HealthcareComment on above:Expected: 03/25/2023, Expires: 03/25/2024Start: 71-63-8980Cpmrftmcb for malignant neoplasm of cervixHPV/CotestNOMS Healthcare Start: 89-15-9666Odfcyhfvd for malignant neoplasm of cervixPap SmearNOMS HealthcareStart: 07-09-1964Medicare Annual Wellness (AWV)Medicare Annual Wellness (AWV)NOMS HealthcareStart: 76-02-2961Divljnhtp for malignant neoplasm of colonNOMS HealthcareStart: 30-87-3268Hqrklimmz for malignant neoplasm of lung Lung Cancer Screening Shared Decision MakingNOMS HealthcareBLOOD CULTURE 1BLOOD CULTURE 1 Lab Routine 12/24/2023 1:45 PM ESTNOMS HealthcareBLOOD CULTURE 1BLOOD CULTURE 1 Lab Routine 12/25/2023 9:09 PM ESTNOMS HealthcareBLOOD CULTURE 2BLOOD CULTURE 2 Lab Routine 12/24/2023 1:51 PM ESTNOMS HealthcareBLOOD CULTURE 2BLOOD CULTURE 2 Lab Routine 12/25/2023 9:20 PM ESTMOUNT[facility] Healthcare Immunizations Immunization DateImmunizationNotesCare CnlalkudOnzvphgj47-43-5341wrlxjbj toxoid, reduced diphtheria toxoid, and acellular pertussis vaccine, adsorbedLisa Aichholz LABORER HOISTING Work Phone: [facility] Dbrmvyoxff01-59-4423Pfuraeo NRKH-IvC-4Ryvp Aichholz LABORER HOISTING Work Phone: [facility] HealthcareNEGATED: Highlighted row has not occurred!84-85-4989vhknmmrfe virus vaccine, unspecified formulationMichael NILL General Surgery [place] Payers DatePayer CategoryPayerPolicy [id number] Health [id number] MEDICARE ADVANTAGE [id number] 2016Medicare [id number] 2.16.840.1.247046.3.57[id number] 2.16.840.1.289750.3.57[id number] 2.16.840.1.674068.3.57[id number] 2.16.840.1.885654.3.57[id number] 2.16.840.1.276557.3.579.2.39355-84-2611Yfclznl7311409 2.16.840.1.888956.3.57[id number] 2.16.840.1.112957.3.57[id number] 2.16.840.1.371423.3.579.2.88009-54-2875Coytimr8135579 2.16.840.1.705738.3.579.2.14001-45-2339Ydkextl0314572 2.16.840.1.661450.3.579.2.22666-39-9092Cqxnojv3404165 2.16.840.1.088137.3.579.2.11497-71-2470Hplxymj3663946 2.16.840.1.822548.3.579.2.34390-67-7409Rwsopeq2598154 2.16.840.1.948564.3.579.2.20610-40-3747Slatgkc4719918 2.16.840.1.301052.3.579.2.88299-30-2876Uwlkfjy6822248 2.16.840.1.583108.3.579.2.39093-26-5122Ilbhtne3958283 2.16.840.1.818502.3.579.2.57941-62-2866Snyndvl0668445 2.16840.1.390434.3.579.2.47996-46-9927Skxvccq2393808 2.840.1.322173.3.579.2.17026-99-3621Xfpqgip8663926 2.840.1.577332.3.579.2.13684-82-1656Uzovxgi4452608 2.16840.1.092324.3.579.2.34374-40-2215Gqeliav5586009 2.840.1.803260.3.579.[id number] 2.16840.1.371450.3.579.2.47929-05-5530Okutlzs2965299 2.840.1.217198.3.579.2.56921-62-9329Kzqsmrv5171199 2.16840.1.747261.3.57[id number] 2.16840.1.989830.3.57[id number] 2.16840.1.230813.3.57[id number] 2.16840.1.537520.3.579.2.39948-35-2425Sqafqgi17900480 2.16.840.1.721202.3.579.2.477744-76-6534Bbevpgt52395000 2.16.840.1.676241.3.579.[id number] 2..840.1.734685.3.579.2.[id number] 2.16.840.1.114091.3.579.2.[id number] 2..840.1.281483.3.57[id number] 2.16.840.1.862446.3.579.2.15602-00-0979Yialhxk Health [id number] [id number] 2.0.1.426272.3.579.2.531UnknownRegular [id number] Social History DateTypeDetailFacilityStart: 64-22-4949Xpawvfa smoking statusHeavy tobacco smoker (finding)[facility]Tobacco smoking statusNeverGeneral Surgery [facility]vueStart: 03-16-2023 End: 49-42-3124Ckl [facility]St[facility] End: 52-22-2076Nkhigpp smoking status NHISSmokes tobacco dailyNOMS Healthcare History of tobacco useCigarette SmokerNOMS HealthcareStart: 01-26-2023 End: 50-19-6955Kkfnorwwah smoked current (pack per day) - Canjhafu9MYZA HealthcareStart: 01-26-2023 End: 63-86-8877Hztuzkc use and exposureSmokeless tobacco non-userNOMS Healthcare Start: 03-16-2023 End: 66-09-0652Rgoqzvm intakeEx-drinker (finding)[facility] HealthcareStart: 71-15-9713Aclsgxl Kxmdndk99-73 cigarettes/dayNOMS HealthcareStart: 01-26-2023 Alcohol CommentsociallyNOKY HealthcareStart: 95-68-1472Xhq Assigned At BirthNot on fileNOMS HealthcareWithin the last year, have you been afraid of your partner or ex-partner?NoNOMS HealthcareAre you now , , , , never or living with a partner?MarriedNOMS HealthcareHow often to you have a drink containing alcohol?Monthly or lessNOMS HealthcareHow many standard drinks containing alcohol do you have on a typical day?1 or 2NOMS HealthcareHow often do you have 6 or more drinks on 1 occasion?NeverNOMS HealthcareHow hard is it for you to pay for the very basics like food, housing, medical care, and heatingSomewhat hardNOMS HealthcareDo you feel stress - tense, restless, nervous, or anxious, or unable to sleep at night because yourmind is troubled all the time - these days [OSQ]Only a littleNOMS Healthcare(I/We) worried whether (my/our) food would run out before (I/we) got money to buy more. Sometimes trueNOMS HealthcareThe food that (I/we) bought just didn't last, and (I/we) didn't have money to get more.Often trueNOMS HealthcareIn the past 12 months, was there a time when you were not able to pay the mortgage or rent on time?YesNOMS HealthcareTobacco smoking status NHISUnknown if ever smoked [facility] Work Phone: SexFemale (finding)[facility] Start: [id number] Assigned At [facility] Functional Status Mygx[id number] Health Questionnaire 2 item (PHQ- 2) [Reported][facility] [id number]-6 quick depression assessment panel [Reported.PHQ][facility] HospitalVmgnowwozk47-08-4082Tqcwbjwkna StatusN/AGeneral Surgery [facility] Clinical Notes 12-09-2021 to 08-31-2024 Note Date & [id number] History of Present illness Narrative* Nat Henderson, DO - 08/31/2024 1:00 PM EDT Images from the original note were not [...] has not use her CPAP machine for afew years. She does not always feel well rested upon wakening in the morning. She does have excessive daytime sleepiness. Her also does state that she does have snoring, but no witnessed apnea s. She denies any current complaints of chest pain, palpitations, fevers, chills, sweats, or recentunintentional weight changes. Allergies Allergen Reactions Penicillins Hives, [...] mg by nebulization every 6 (six) hours ifneeded for shortness of breath or wheezing albuterol HFA 90 mcg/act inhaler Inhale 2 puffs every 6 (six) hours if needed for shortness of breath or wheezing 18 g 0 amitriptyline (Elavil) 100 MG tablet Take 0.5 tablets (50 mg) by mouth at bedtime 45 tablet 1 atorvastatin (Lipitor) 20 MG tablet Take 1 tablet (20 mg) by mouth at bedtime 90 tablet 1 Tyrcdkz-Srdzmhdcwye-Yffqhqgwaq (Breztri Aerosphere) 160-9-4.8 MCG/ACT aerosol Inhale 2 puffs in themorning and 2 puffs before bedtime. Inhale 2 puffs in the morning and 2 puffs before bedtime. 32 g 1 bumetanide (Bumex) 0.5 MG tablet Take M W 27 tablet 1 cetirizine (ZyrTEC) 10 MG tablet Take 1 tablet (10 mg) by mouth Daily 90 tablet 1 cholecalciferol (Vitamin D-3) 125 MCG (5000 UT) tablet as directed Orally HYDROcodone-acetaminophen ([place]) 5-325 MG tablet Take 1 tablet by mouth every 12 (twelve) hours ifneeded for severe pain for up to 10 [...] (BMI) of 40.0 to 44.9 in adult ([facility]) 01/26/2023 COPD mixed type ([facility]) 01/26/2023 DENIES HX OF BLOOD BORNE DISEASES [...] watching TV at night. However she does nothave any significant symptoms then I would not advocate a routine inhaled regimen. WINSOME -- she does give a prior history of sleep apnea. She had previously been on CPAP. However she has not use this for quite some time. We discussed the ramifications of untreated sleep apnea. She isagreeable to restarting her CPAP machine but does understands she will need a repeat sleep study. Ahome sleep study ordered for her after today's office visit. CPAP will be arranged for her prior toher next appointment. She will follow here in [...] WINSOME. Nat Henderson DO documented in this encounterColumbia Regional [id number] History of Present illness Narrative* Jaymie Phoenix NP - 07/31/2024 11:24 AM EDTAssociated Problem(s): Screening for lung cancer Patient meets [...] counseled on the importance of smoking cessation. * Jaymie Phoenix NP - 07/31/2024 11:22 AM EDTAssociated Problem(s): Morbid (severe) obesity due to excess calories ([facility]) Discussed with patient their BMI (actual, verses recommended). We have also discussed lifestyle modifications: attempts to perform physical activity as chronic conditions allow, also to monitor dietary intake: increasing protein/fruits/veggies and lowering carb intake (unless contraindicated). Limit sodas, juices, and sugary drinks. Chronic pain related issues does limit ability to exercise on regular basis * Jaymie Phoenix NP - 07/31/2024 11:22 AM EDTAssociated Problem(s): Fibromyalgia Continue with Madiha ELIZABETH reviewed * Jaymie Phoenix NP - 07/31/2024 11:21 AM EDTAssociated Problem(s): Chronic kidney disease, stage 3a ([facility]) Check Chem 8 * EDEL MAHONEY - 07/31/2024 10:30 AM EDT 02 range is 89-92% Vrylar 3.5mg once daily Prazosin 3mg nightly- drug induced parkinson's * Jaymie Alban, LABORER HOISTING - 07/31/2024 10:30 AM EDT Images from the original note were not [...] Nightly atorvastatin (LIPITOR) 20 mg, Oral, Nightly Qmtnnii-Nmeblkibqya-Evjvzvbjya (Breztri Aerosphere) 160-9-4.8 MCG/ACT aerosol 2 puffs, [...] (BMI) of 40.0 to 44.9 in adult ([facility]) 01/26/2023 COPD mixed type ([facility]) 01/26/2023 DENIES HX OF BLOOD BORNE DISEASES [...] ready to start this process Would like chaneddiex, dr gmoez said ok to trial, just needs to [...] PFT prior to seeing pulmonology Relevant Medications Xgpxbrj-Eimltabaomu-Oiqffavbwo (Breztri Aerosphere) 160-9-4.8 MCG/ACT aerosol Anxiety and depression Continue with Dr Gomez GERD (gastroesophageal reflux disease) Recommendations: freq small meals, nothing to eat or drink at least 2 hours prior to bed, limit caffeine, alcohol, as well as spicy foods Meds to limit or avoid if possible: NSAIDS Elevate HOB if possible Current med: omeprazole Insurance correspondance about senior living use of PPI 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 * Jaymie Phoenix NP - 07/31/2024 7:12 AM EDTAssociated Problem(s): Tobacco dependence The patient has been [...] ready to start this process Would like chaneddiex, dr gomez said ok to trial, just needs to monitor for worsening in depression Fu in 8 weeks * Jaymie Phoenix NP - 07/31/2024 7:11 AM EDTAssociated Problem(s): Mixed hyperlipidemia On statin therapy Check labs yearly and prn dose changes * Jaymie Phoenix NP - 07/31/2024 7:11 AM EDTAssociated Problem(s): Encounter for subsequent annual wellness visit (AWV) in Medicare patient Reviewed Ht/Wt/BMI Recommend eye exam yearly Recommend dental exams twice a year Balance work/leisure activities Exercises is recommended most days of the week (appropriate as chronic conditions allow) Follow up yearly and prn * Jaymie Phoenix NP - 07/31/2024 7:11 AM EDTAssociated Problem(s): Anxiety and depression Continue with Dr Gomez * Jaymie Phoenix NP - 07/31/2024 7:08 AM EDTAssociated Problem(s): Bilateral lower extremity edema Current meds: bumex (3 times per week) and spironolactone daily Elevate feet 2-3 times daily Limit sodium Recommend compression stockings Check labs yearly and prn * Jaymie Phoenix NP - 07/31/2024 7:06 AM EDTAssociated Problem(s): GERD (gastroesophageal reflux disease) Recommendations: freq small meals, nothing to eat or drink at least 2 hours prior to bed, limit caffeine, alcohol, as well as spicy foods Meds to limit or avoid if possible: NSAIDS Elevate HOB if possible Current med: omeprazole Insurance correspondance about senior living use of PPI Pt has been counseled on the risks of senior living use, would like to continue * Jaymie Phoenix NP - 07/31/2024 7:06 AM EDTAssociated Problem(s): Primary hypertension Please check blood pressure daily and record DASH diet Limit caffeine Take medication as directed Contact office if chest pain, pressure, dizziness, shortness of breath, swelling legs Recommend slow position changes Current meds; * Jaymie Phoenix NP - 07/31/2024 7:05 AM EDTAssociated Problem(s): COPD mixed type (HCC) Current meds: breztri, albuterol HFA and neb prn Was referred to Pulmonology, is supposed to get a PFT prior to seeing pulmonology * Jaymie Phoenix NP - 07/31/2024 7:05 AM EDTAssociated Problem(s): WINSOME (obstructive sleep apnea) You have a diagnosis of obstructive sleep apnea. It is recommended that you wear your PAP device any time while in bed sleeping. Not using the PAP device can increase your risk of elevated/uncontrolled high blood pressure, atrial fibrillation, heart attack, stroke, or sudden . Compliant: no documented in this [facility]06-23-2025 Instructions* Patient Instructions* Jaymie Phoenix NP - 07/31/2024 10:30 AM EDT Get labs completed Chantix: take as directed, contact me if worsening in mental health documented in this [facility]05-07-2025 Telephone encounter Note* Telephone Encounter - Jaymie Phoenix NP - 06/14/2024 8:55 PM EDT She is also due for her AWV, please call to schedule [place] [facility] [id number] Miscellaneous Notes* Telephone Encounter - Jaymie Phoenix NP - 06/14/2024 8:55 PM EDT She is also due for her AWV, please call to schedule [place] documented in this [facility]05-07-2025 Telephone encounter Note* Telephone Encounter - Kym Adam - 06/14/2024 4:06 PM EDT 90 day supply [facility] [id number] Miscellaneous Notes* Telephone Encounter - Kym Adam - 06/14/2024 4:06 PM EDT 90 day supply documented in this encounterColumbia Regional [id number] History of Present illness Narrative* Saumya Back, - 03/14/2024 3:00 PM EST Images from the original note were not [...] (BMI) of 40.0 to 44.9 in adult ([facility]) 01/26/2023 COPD mixed type (CMS/HCC) 01/26/2023 DENIES [...] , wrist extensors , wrist flexor , recruiting administrator strength 5/5. LUE Strength deltoid , biceps , triceps , wrist extensors , wrist flexor , recruiting administrator strength 5/5. RLE Strength illopsoas, quadriceps, tibialis [...] reflex 1+ . Forrest's sign negative. Coordination: Zfxgtm-yy-cfxq testing and rapid alternating movements are normal Gait: Normal Review and summary of old records: Assessment/Plan Diagnoses and all orders for this visit: Drug-induced Parkinson's disease (CMS/[facility]) It is my impression that the patient [...] closely with her psychiatrist, Dr. Gomez, for considerationof reduction or change of Seroquel to see if this makes a change in her movement disorder type symptoms. We did discuss that there is a risk and benefit as certainly changed in such medication may observemental health and the psychiatry team is best position to consider those changes. Additional history was provided from the patient's who accompany her to the visit today. Pt has been fully educated on their diagnosis, lab results, treatment options, follow up plan, and return instructions documented in this encounterColumbia Regional [id number] History of Present illness Narrative* Jaymie Phoenix NP - 02/10/2024 5:13 PM ESTAssociated Problem(s): Tremor Will refer to neuro for this Differentials: side effects med, PD? * Jaymie Phoenix NP - 02/10/2024 1:20 PM EST Images from the original note were not [...] (BMI) of 40.0 to 44.9 in adult ([facility]) 01/26/2023 COPD mixed type (CMS/HCC) 01/26/2023 DENIES [...] ASSESSMENT AND PLAN: No follow-ups on file. * Jaymie Phoenix NP - 02/10/2024 7:14 AM ESTAssociated Problem(s): Tobacco dependence The patient has been [...] toprovider when ready to start this process * Jaymie Phoenix NP - 02/10/2024 7:14 AM ESTAssociated Problem(s): Morbid (severe) obesity due to excess calories (CMS/HCC) Discussed with patient their BMI (actual, verses recommended). We have also discussed lifestyle modifications: attempts to perform physical activity as chronic conditions allow, also to monitor dietary intake: increasing protein/fruits/veggies and lowering carb intake (unless contraindicated). Limit sodas, juices, and sugary drinks. 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, would like to continue * Jaymie Phoenix NP - 02/10/2024 7:12 AM ESTAssociated Problem(s): COPD with acute exacerbation (CMS/HCC) Was referred to pulmonology Continue with albuterol prn, and breztri as directed Urged to quit smoking Stay UTD on immunizations: flu, covid, pneumonia, and RSV * Jaymie Phoenix NP - 02/10/2024 7:11 AM ESTAssociated Problem(s): COPD mixed type (CMS/HCC) Current meds: breztri, albuterol HFA and neb prn Was referred to Pulmonology Needs a PFT first * Jaymie Phoenix NP - 02/10/2024 7:11 AM ESTAssociated Problem(s): WINSOME (obstructive sleep apnea) You have a diagnosis of obstructive sleep apnea. It is recommended that you wear your PAP device any time while in bed sleeping. Not using the PAP device can increase your risk of elevated/uncontrolled high blood pressure, atrial fibrillation, heart attack, stroke, or sudden . Compliant: no documented in this encounterColumbia Regional [id number] History of Present illness Narrative* Jaymie Phoenix NP - 01/03/2024 11:14 AM ESTAssociated Problem(s): COPD with acute exacerbation ([facility]) Pt reports getting better , feels better than in hospital I.S. 10 times hour every hour awake Recommend quitting smoking Continue nebulizers Refer to pulmonary * EDEL MAHONEY - 01/03/2024 10:30 AM EST Pt is on 3l of 02 Had forgotten it Pt has be ranging from 82-92 in her 02 * Jaymie Phoenix NP - 01/03/2024 10:30 AM EST Images from the original note were not [...] (BMI) of 40.0 to 44.9 in adult ([facility]) 01/26/2023 COPD mixed type ([facility]) 01/26/2023 DENIES HX OF BLOOD BORNE DISEASES Depression ([facility]) Fibromyalgia Open wound of left foot 01/26/2023 Open wound of second toe 01/26/2023 Other acute sinusitis 01/26/2023 Primary hypertension ([facility]) 01/26/2023 Tobacco dependence 01/26/2023 Past Surgical History: [...] toprovider when ready to start this process Relevant [...] use of PAP COPD with acute exacerbation ([facility]) Pt reports getting better , feels better than in hospital I.S. 10 times hour every hour awake Recommend quitting smoking Continue nebulizers Refer to pulmonary * Jaymie Phoenix NP - 01/03/2024 6:48 AM ESTAssociated Problem(s): Mixed hyperlipidemia (CMS/HCC) On statin therapy, check labs * Jaymie Phoenix NP - 01/03/2024 6:46 AM ESTAssociated Problem(s): Tobacco dependence The patient has been [...] toprovider when ready to start this process * Jaymie Phoenix NP - 01/03/2024 6:46 AM ESTAssociated Problem(s): Fibromyalgia Continue with Lyreese ELIZABETH reviewed * Jaymie Phoenix NP - 01/03/2024 6:45 AM ESTAssociated Problem(s): Primary hypertension ([facility]) Please check blood pressure daily and record DASH diet Limit caffeine Take medication as directed Contact office if chest pain, pressure, dizziness, shortness of breath, swelling legs Recommend slow position changes * Jaymie Phoenix NP - 01/03/2024 6:42 AM ESTAssociated Problem(s): COPD mixed type (CMS/HCC) Recent hospitalization for exacerbation with hypoxia as well 2 ER visits, second one admitted d/t hypoxia Has seen Naomy in the past for her COPD * Jaymie Phoenix NP - 01/03/2024 6:42 AM ESTAssociated Problem(s): WINSOME (obstructive sleep apnea) Non compliant with use of PAP documented [facility] this [facility]11-25-2024 Instructions* Patient Instructions* Jaymie Phoenix NP - 01/03/2024 10:30 AM EST Referral to floor grinder Consider patches documented in this [facility]02-15-2024 History of Present illness Narrative* Jaymie Phoenix NP - 03/25/2023 4:34 PM ESTAssociated Problem(s): Edema of right lower extremity Will order labs: CBC, Chem 14, and d dimer Check stat US RLE, negative for clot * Jaymie Phoenix NP - 03/25/2023 4:32 PM ESTAssociated Problem(s): COPD mixed type (CMS/HCC) Does have ext exp wheeze, no resp distress Cannot take prednisone, but can tolerate decadron, will trial that * Jaymie Phoenix NP - 03/25/2023 4:32 PM ESTAssociated Problem(s): Shortness of breath Chest xray * EDEL MAHONEY - 03/25/2023 1:00 PM EST Swelling in both legs up to the calf- in the last week Elevating legs at night Oxygen was low yesterday during blood flow-they did not tell pt what it was other than it being low She started out at 92% Very SOB and wheezing Sprout is increasing the lamictal to 150 once in the morning. And continuing the 200mg at night * Jaymie Phoenix NP - 03/25/2023 1:00 PM EST Images from the original note were not included. Franky Gagnon is a 57 y.o. female presents with chief complaint of No chief complaint on file. HPI: Here today for recheck of swelling in legs. She has been on aldactone 50mg dose, for a few weeks now Over the last couple days increase in swelling in RLE, +calf tenderness, mild dyspnea, and no hx ofDVT/PE in the past Edema Presents with chronic edema. The current episode started more than 1 year ago. The problem presentsitself constantly. The problem has been rapidly worsening. [...] (BMI) of 40.0 to 44.9 in adult ([facility]) 01/26/2023 COPD mixed type ([facility]) 01/26/2023 DENIES HX OF BLOOD BORNE DISEASES Depression ([facility]) Fibromyalgia Open wound of left foot 01/26/2023 Open wound of second toe 01/26/2023 Other acute sinusitis 01/26/2023 Primary hypertension ([facility]) 01/26/2023 Tobacco dependence 01/26/2023 Past Surgical History: [...] XR chest 2 views documented in this encounterColumbia Regional [id number] History of Present illness Narrative* Jaymie Phoenix NP - 03/16/2023 2:25 PM ESTAssociated Problem(s): Bilateral lower extremity edema Just started on new dose of aldactone, fu in 6 weeks for recheck * Jaymie Phoenix NP - 03/16/2023 2:24 PM ESTAssociated Problem(s): COPD mixed type (CMS/HCC) Still w wheeze, continue breztri Needs to quit smoking Allergies to steroids Have her add in albuterol inhaler prn * Jaymie Phoenix NP - 03/16/2023 2:23 PM ESTAssociated Problem(s): Primary hypertension (CMS/HCC) At goal, no changes in doses * EDEL MAHONEY - 03/16/2023 1:20 PM EST Right ankle swelling even when during elevation * Jaymie NILE Phoenix - 03/16/2023 1:20 PM EST Images from the original note were not [...] (BMI) of 40.0 to 44.9 in adult ([facility]) 01/26/2023 COPD mixed type ([facility]) 01/26/2023 DENIES HX OF BLOOD BORNE DISEASES Depression ([facility]) Fibromyalgia Open wound of left foot 01/26/2023 [...] in albuterol inhaler prn BMI 40.0-44.9, adult ([facility]) Other Visit Diagnoses Body mass index [BMI] 40.0-44.9, adult (Z68.41) documented in this encounterColumbia Regional [id number] NoteCONSULTATION CONSULTATION DATE: 04/30/2022 TO: Nurse Alban CHIEF [...] to our office on an as needed basis.[id number] Note OPERATIVE NOTE OPERATION DATE: 02/25/2022 PREOPERATIVE [...] room in good condition. CC: Patient's family physicianThe [facility] Hospital [id number] NoteCONSULTATION CONSULTATION DATE: 02/06/2022 HISTORY OF PRESENT ILLNESS: [...] will be followed up in the clinic thereafter.[facility] [id number] NoteChief Complaint consultation for positive Cologuard HPI Staff [...] swallowing difficulties, no hearing loss, no ear infection(s),no nose bleeds. Cardiovascular: normal blood pressure, no [...] last 30 days Tobacco (more content not included)...[facility] HospitalComment on above:Result Comment: Electronically Signed By: NABIL AMADOR, Bryson Steinberg\Date and Time Signed: 02/03/22 13:53 [id number] NoteCONSULTATION CONSULTATION DATE: 01/08/2022 HISTORY OF PRESENT ILLNESS: [...] will be followed up in the clinic thereafter.[facility] [id number] NoteCONSULTATION CONSULTATION DATE: 12/09/2021 CHIEF COMPLAINT: Low back [...] would like to proceed. CC: Jaymie Phoenix, CNPThe [facility] HospitalEvaluation + Plan note No data available for this section General Surgery [place] Evaluation note* Diagnosis COPD mixed type (CMS/HCC)- Primary Tobacco dependence Tobacco use disorder BMI 40.0-44.9, adult (CMS/HCC) Body mass index [BMI] 40.0-44.9, adult (Z68.41) Primary hypertension (CMS/HCC) Unspecified essential hypertension Bilateral lower extremity edema documented in this encounter [facility] HealthcareEvaluation [facility]* Diagnosis Edema of right lower extremity- Primary BMI 40.0-44.9, adult (CMS/HCC) Shortness of breath COPD mixed type (CMS/HCC) Primary hypertension (CMS/HCC) Unspecified essential hypertension Bilateral lower extremity edema documented in this encounter [facility] HealthcareEvaluation note* Diagnosis Primary hypertension (CMS/HCC)- Primary [...] BMI 40.0-44.9, adult (CMS/HCC) COPD mixed type ([facility]) WINSOME (obstructive sleep apnea) Obstructive sleep apnea (adult) (pediatric) Encounter for subsequent annual wellness visit (AWV) in Medicare patient- Primary Edema of right lower extremity Anxiety and depression ([facility]) Tobacco dependence Tobacco use disorder BMI 40.0-44.9, adult ([facility]) Fibromyalgia Unspecified myalgia and myositis Primary hypertension ([facility]) Unspecified essential hypertension COPD mixed type ([facility]) Mixed hyperlipidemia ([facility]) Mixed hyperlipidemia documented in this encounter [facility] HealthcareEvaluation note* Diagnosis Primary hypertension ([facility])- Primary Unspecified essential hypertension Mixed hyperlipidemia ([facility]) Mixed hyperlipidemia Fibromyalgia Unspecified myalgia and myositis Migraine without aura and without status migrainosus, not intractable ([facility]) Class 3 severe obesity due to excess calories without serious comorbidity with body mass index (BMI) of 40.0 to 44.9 in adult ([facility]) Tobacco dependence Tobacco use disorder Bilateral lower extremity edema Acute non-recurrent sinusitis of other sinus COPD mixed type ([facility]) Open wound of second toe of left foot, initial encounter Open wound of left foot, initial encounter COPD mixed type ([facility])- Primary Tobacco dependence Tobacco use disorder BMI 40.0-44.9, adult ([facility]) Body mass index [BMI] 40.0-44.9, adult (Z68.41) Primary hypertension ([facility]) Unspecified essential hypertension Bilateral lower extremity edema Edema of right lower extremity- Primary BMI 40.0-44.9, adult ([facility]) Shortness of breath COPD mixed type ([facility]) Primary hypertension ([facility]) Unspecified essential hypertension Bilateral lower extremity edema Bilateral lower extremity edema- Primary Primary hypertension ([facility]) Unspecified essential hypertension COPD mixed type ([facility]) Class 3 severe obesity due to excess calories without serious comorbidity with body mass index (BMI) of 40.0 to 44.9 in adult ([facility]) Tobacco dependence Tobacco use disorder Bilateral lower extremity edema- Primary Tobacco dependence Tobacco use disorder BMI 40.0-44.9, adult ([facility]) COPD mixed type ([facility]) WINSOME (obstructive sleep apnea) Obstructive sleep apnea (adult) (pediatric) Encounter for subsequent annual wellness visit (AWV) in Medicare patient- Primary Edema of right lower extremity Anxiety and depression ([facility]) Tobacco dependence Tobacco use disorder BMI 40.0-44.9, adult ([facility]) Fibromyalgia Unspecified myalgia and myositis Primary hypertension ([facility]) Unspecified essential hypertension COPD mixed type ([facility]) Fibromyalgia Unspecified myalgia and myositis documented in this encounter [facility] HealthcareEvaluation note* Diagnosis Primary hypertension ([facility])- Primary Unspecified essential hypertension Mixed hyperlipidemia ([facility]) Mixed hyperlipidemia Fibromyalgia Unspecified myalgia and myositis Migraine without aura and without status migrainosus, not intractable ([facility]) Class 3 severe obesity due to excess calories without serious comorbidity with body mass index (BMI) of 40.0 to 44.9 in adult ([facility]) Tobacco dependence Tobacco use disorder Bilateral lower extremity edema Acute non-recurrent sinusitis of other sinus COPD mixed type ([facility]) Open wound of second toe of left foot, initial encounter Open wound of left foot, initial encounter COPD mixed type ([facility]/HCC)- Primary Tobacco dependence Tobacco use disorder BMI 40.0-44.9, adult ([facility]) Body mass index [BMI] 40.0-44.9, adult (Z68.41) Primary hypertension ([facility]) Unspecified essential hypertension Bilateral lower extremity edema Edema of right lower extremity- Primary BMI 40.0-44.9, adult ([facility]) Shortness of breath COPD mixed type ([facility]/HCC) Primary hypertension ([facility]) Unspecified essential hypertension Bilateral lower extremity edema Bilateral lower extremity edema- Primary Primary hypertension ([facility]) Unspecified essential hypertension COPD mixed type ([facility]) Class 3 severe obesity due to excess calories without serious comorbidity with body mass index (BMI) of 40.0 to 44.9 in adult ([facility]) Tobacco dependence Tobacco use disorder Bilateral lower extremity edema- Primary Tobacco dependence Tobacco use disorder BMI 40.0-44.9, adult ([facility]) COPD mixed type ([facility]) WINSOME (obstructive sleep apnea) Obstructive sleep apnea (adult) (pediatric) Encounter for subsequent annual wellness visit (AWV) in Medicare patient- Primary Edema of right lower extremity Anxiety and depression ([facility]) Tobacco dependence Tobacco use disorder BMI 40.0-44.9, adult ([facility]) Fibromyalgia Unspecified myalgia and myositis Primary hypertension (CMS/HCC) Unspecified essential hypertension COPD mixed type (CMS/HCC) WINSOME (obstructive sleep apnea)- Primary Obstructive sleep apnea (adult) (pediatric) COPD mixed type (CMS/HCC) Primary hypertension (CMS/HCC) Unspecified essential hypertension Fibromyalgia Unspecified myalgia and myositis BMI 40.0-44.9, adult ([facility]) Tobacco dependence Tobacco use disorder Mixed hyperlipidemia (CMS/HCC) Mixed hyperlipidemia Vitamin D deficiency Vitamin B12 deficiency Other B-complex deficiencies COPD with acute exacerbation ([facility]) documented in this encounter [facility]* Diagnosis Fibromyalgia Unspecified myalgia and myositis Gastro-esophageal reflux disease without esophagitis documented in this encounter [facility]* Diagnosis Primary hypertension (CMS/HCC)- Primary Unspecified essential hypertension Mixed hyperlipidemia ([facility]) Mixed hyperlipidemia Fibromyalgia Unspecified myalgia and myositis Migraine without aura and without status migrainosus, not intractable ([facility]) Class 3 severe obesity due to excess calories without serious comorbidity with body mass index (BMI) of 40.0 to 44.9 in adult ([facility]) Tobacco dependence Tobacco use disorder Bilateral lower extremity edema Acute non-recurrent sinusitis of other sinus COPD mixed type ([facility]) Open wound of second toe of left foot, initial encounter Open wound of left foot, initial encounter COPD mixed type (CMS/HCC)- Primary Tobacco dependence Tobacco use disorder BMI 40.0-44.9, adult ([facility]) Body mass index [BMI] 40.0-44.9, adult (Z68.41) Primary hypertension (CMS/HCC) Unspecified essential hypertension Bilateral lower extremity edema Edema of right lower extremity- Primary BMI 40.0-44.9, adult ([facility]) Shortness of breath COPD mixed type (CMS/HCC) Primary hypertension (CMS/HCC) Unspecified essential hypertension Bilateral lower extremity edema Bilateral lower extremity edema- Primary Primary hypertension ([facility]) Unspecified essential hypertension COPD mixed type (CMS/HCC) Class 3 severe obesity due to excess calories without serious comorbidity with body mass index (BMI) of 40.0 to 44.9 in adult ([facility]) Tobacco dependence Tobacco use disorder Bilateral lower extremity edema- Primary Tobacco dependence Tobacco use disorder BMI 40.0-44.9, adult ([facility]) COPD mixed type (CMS/HCC) WINSOME (obstructive sleep apnea) Obstructive sleep apnea (adult) (pediatric) Encounter for subsequent annual wellness visit (AWV) in Medicare patient- Primary Edema of right lower extremity Anxiety and depression ([facility]) Tobacco dependence Tobacco use disorder BMI 40.0-44.9, adult ([facility]) Fibromyalgia Unspecified myalgia and myositis Primary hypertension (CMS/HCC) Unspecified essential hypertension COPD mixed type (CMS/HCC) WINSOME (obstructive sleep apnea)- Primary Obstructive sleep apnea (adult) (pediatric) COPD mixed type (CMS/HCC) Primary hypertension (CMS/HCC) Unspecified essential hypertension Fibromyalgia Unspecified myalgia and myositis BMI 40.0-44.9, adult ([facility]) Tobacco dependence Tobacco use disorder Mixed hyperlipidemia ([facility]) Mixed hyperlipidemia Vitamin D deficiency Vitamin B12 deficiency Other B-complex deficiencies COPD with acute exacerbation ([facility]) Fibromyalgia Unspecified myalgia and myositis documented in this encounter [facility] HealthcareEvaluation note* Diagnosis Primary hypertension ([facility])- Primary Unspecified essential hypertension Mixed hyperlipidemia ([facility]) Mixed hyperlipidemia Fibromyalgia Unspecified myalgia and myositis Migraine without aura and without status migrainosus, not intractable ([facility]) Class 3 severe obesity due to excess calories without serious comorbidity with body mass index (BMI) of 40.0 to 44.9 in adult ([facility]) Tobacco dependence Tobacco use disorder Bilateral lower extremity edema Acute non-recurrent sinusitis of other sinus COPD mixed type (CMS/HCC) Open wound of second toe of left foot, initial encounter Open wound of left foot, initial encounter COPD mixed type ([facility]/HCC)- Primary Tobacco dependence Tobacco use disorder BMI 40.0-44.9, adult ([facility]) Body mass index [BMI] 40.0-44.9, adult (Z68.41) Primary hypertension (CMS/HCC) Unspecified essential hypertension Bilateral lower extremity edema Edema of right lower extremity- Primary BMI 40.0-44.9, adult ([facility]) Shortness of breath COPD mixed type (CMS/HCC) Primary hypertension (CMS/HCC) Unspecified essential hypertension Bilateral lower extremity edema Bilateral lower extremity edema- Primary Primary hypertension ([facility]) Unspecified essential hypertension COPD mixed type (CMS/HCC) Class 3 severe obesity due to excess calories without serious comorbidity with body mass index (BMI) of 40.0 to 44.9 in adult ([facility]) Tobacco dependence Tobacco use disorder Bilateral lower extremity edema- Primary Tobacco dependence Tobacco use disorder BMI 40.0-44.9, adult ([facility]) COPD mixed type ([facility]) WINSOME (obstructive sleep apnea) Obstructive sleep apnea (adult) (pediatric) Encounter for subsequent annual wellness visit (AWV) in Medicare patient- Primary Edema of right lower extremity Anxiety and depression ([facility]) Tobacco dependence Tobacco use disorder BMI 40.0-44.9, adult ([facility]) Fibromyalgia Unspecified myalgia and myositis Primary hypertension ([facility]) Unspecified essential hypertension COPD mixed type ([facility]) WINSOME (obstructive sleep apnea)- Primary Obstructive sleep apnea (adult) (pediatric) COPD mixed type ([facility]) Primary hypertension ([facility]) Unspecified essential hypertension Fibromyalgia Unspecified myalgia and myositis BMI 40.0-44.9, adult ([facility] Tobacco dependence Tobacco use disorder Mixed hyperlipidemia ([facility]) Mixed hyperlipidemia Vitamin D deficiency Vitamin B12 deficiency Other B-complex deficiencies COPD with acute exacerbation ([facility]) COPD with acute exacerbation ([facility])- Primary Morbid (severe) obesity due to excess calories ([facility]) Body mass index (BMI) 40.0-44.9, adult ([facility]) WINSOME (obstructive sleep apnea) Obstructive sleep apnea (adult) (pediatric) COPD mixed type ([facility]) Gastroesophageal reflux disease, unspecified whether esophagitis present Tobacco dependence Tobacco use disorder Gastro-esophageal reflux disease without esophagitis Tremor Abnormal involuntary movements documented in this encounter [facility]* Diagnosis Primary hypertension ([facility])- Primary Unspecified essential hypertension Mixed hyperlipidemia ([facility]) Mixed hyperlipidemia Fibromyalgia Unspecified myalgia and myositis Migraine without aura and without status migrainosus, not intractable ([facility]) Class 3 severe obesity due to excess calories without serious comorbidity with body mass index (BMI) of 40.0 to 44.9 in adult ([facility]) Tobacco dependence Tobacco use disorder Bilateral lower extremity edema Acute non-recurrent sinusitis of other sinus COPD mixed type ([facility]) Open wound of second toe of left foot, initial encounter Open wound of left foot, initial encounter COPD mixed type ([facility])- Primary Tobacco dependence Tobacco use disorder BMI 40.0-44.9, adult ([facility]) Body mass index [BMI] 40.0-44.9, adult (Z68.41) Primary hypertension (CMS/HCC) Unspecified essential hypertension Bilateral lower extremity edema Edema of right lower extremity- Primary BMI 40.0-44.9, adult ([facility]) Shortness of breath COPD mixed type (CMS/HCC) [...] dependence Tobacco use disorder BMI 40.0-44.9, adult ([facility]/HCC) COPD mixed type (CMS/HCC) WINSOME (obstructive sleep apnea) Obstructive sleep apnea (adult) (pediatric) Encounter for subsequent annual wellness visit (AWV) in Medicare patient- Primary Edema of right lower extremity Anxiety and depression ([facility]) Tobacco dependence Tobacco use disorder BMI 40.0-44.9, adult ([facility]) Fibromyalgia Unspecified myalgia and myositis Primary hypertension (CMS/HCC) Unspecified essential hypertension COPD mixed type (CMS/HCC) WINSOME (obstructive sleep apnea)- Primary Obstructive sleep apnea (adult) (pediatric) COPD mixed type (CMS/HCC) Primary hypertension (CMS/HCC) Unspecified essential hypertension Fibromyalgia Unspecified myalgia and myositis BMI 40.0-44.9, adult ([facility]) Tobacco dependence Tobacco use disorder Mixed hyperlipidemia (CMS/[facility]) Mixed hyperlipidemia Vitamin D deficiency Vitamin B12 deficiency Other B-complex deficiencies COPD with acute exacerbation (CMS/HCC) COPD with acute exacerbation ([facility]/HCC)- Primary Morbid (severe) obesity due to excess calories ([facility]) Body mass index (BMI) 40.0-44.9, adult ([facility]) WINSOME (obstructive sleep apnea) Obstructive sleep apnea (adult) (pediatric) COPD mixed type (CMS/HCC) Gastroesophageal reflux disease, unspecified whether esophagitis present Tobacco dependence Tobacco use disorder Gastro-esophageal reflux disease without esophagitis Tremor Abnormal involuntary movements Drug-induced Parkinson's disease (CMS/HCC)- Primary Secondary Parkinsonism Tremor Abnormal involuntary movements documented in this encounter [facility]* Diagnosis Primary hypertension (CMS/HCC)- Primary Unspecified essential hypertension Mixed hyperlipidemia (CMS/HCC) Mixed hyperlipidemia Fibromyalgia Unspecified myalgia and myositis Migraine without aura and without status migrainosus, not intractable ([facility]) Class 3 severe obesity due to excess calories without serious comorbidity with body mass index (BMI) of 40.0 to 44.9 in adult ([facility]) Tobacco dependence Tobacco use disorder Bilateral lower extremity edema Acute non-recurrent sinusitis of other sinus COPD mixed type ([facility]) Open wound of second toe of left foot, initial encounter Open wound of left foot, initial encounter COPD mixed type (CMS/HCC)- Primary Tobacco dependence Tobacco use disorder BMI 40.0-44.9, adult ([facility]) Body mass index [BMI] 40.0-44.9, adult (Z68.41) Primary hypertension (CMS/[facility]) Unspecified essential hypertension Bilateral lower extremity edema Edema of right lower extremity- Primary BMI 40.0-44.9, adult ([facility]) Shortness of breath COPD mixed type (CMS/[facility]) Primary hypertension (CMS/HCC) Unspecified essential hypertension Bilateral lower extremity edema Bilateral lower extremity edema- Primary Primary hypertension (CMS/HCC) Unspecified essential hypertension COPD mixed type ([facility]) Class 3 severe obesity due to excess calories without serious comorbidity with body mass index (BMI) of 40.0 to 44.9 in adult ([facility]) Tobacco dependence Tobacco use disorder Bilateral lower extremity edema- Primary Tobacco dependence Tobacco use disorder BMI 40.0-44.9, adult ([facility]) COPD mixed type (CMS/[facility]) WINSOME (obstructive sleep apnea) Obstructive sleep apnea (adult) (pediatric) Encounter for subsequent annual wellness visit (AWV) in Medicare patient- Primary Edema of right lower extremity Anxiety and depression ([facility]) Tobacco dependence Tobacco use disorder BMI 40.0-44.9, adult ([facility]) Fibromyalgia Unspecified myalgia and myositis Primary hypertension (CMS/HCC) Unspecified essential hypertension COPD mixed type (CMS/HCC) WINSOME (obstructive sleep apnea)- Primary Obstructive sleep apnea (adult) (pediatric) COPD mixed type (CMS/HCC) Primary hypertension (CMS/HCC) Unspecified essential hypertension Fibromyalgia Unspecified myalgia and myositis BMI 40.0-44.9, adult ([facility]) Tobacco dependence Tobacco use disorder Mixed hyperlipidemia (CMS/[facility]) Mixed hyperlipidemia Vitamin D deficiency Vitamin B12 deficiency Other B-complex deficiencies COPD with acute exacerbation ([facility]/HCC) COPD with acute exacerbation ([facility])- Primary Morbid (severe) obesity due to excess calories ([facility]) Body mass index (BMI) 40.0-44.9, adult ([facility]) WINSOME (obstructive sleep apnea) Obstructive sleep apnea (adult) (pediatric) COPD mixed type ([facility]) Gastroesophageal reflux disease, unspecified whether esophagitis present Tobacco dependence Tobacco use disorder Gastro-esophageal reflux disease without esophagitis Tremor Abnormal involuntary movements Fibromyalgia Unspecified myalgia and myositis Localized edema Edema Mixed hyperlipidemia ([facility]) Mixed hyperlipidemia documented in this encounter [facility]Evaluation note* Diagnosis Primary hypertension ([facility])- Primary Unspecified essential hypertension Mixed hyperlipidemia ([facility]) Mixed hyperlipidemia Fibromyalgia Unspecified myalgia and myositis Migraine without aura and without status migrainosus, not intractable ([facility]) Class 3 severe obesity due to excess calories without serious comorbidity with body mass index (BMI) of 40.0 to 44.9 in adult ([facility]) Tobacco dependence Tobacco use disorder Bilateral lower extremity edema Acute non-recurrent sinusitis of other sinus COPD mixed type ([facility]) Open wound of second toe of left foot, initial encounter Open wound of left foot, initial encounter COPD mixed type ([facility])- Primary Tobacco dependence Tobacco use disorder BMI 40.0-44.9, adult ([facility]) Body mass index [BMI] 40.0-44.9, adult (Z68.41) Primary hypertension ([facility]) Unspecified essential hypertension Bilateral lower extremity edema Edema of right lower extremity- Primary BMI 40.0-44.9, adult ([facility]) Shortness of breath COPD mixed type ([facility]) Primary hypertension ([facility]) Unspecified essential hypertension Bilateral lower extremity edema Bilateral lower extremity edema- Primary Primary hypertension ([facility]) Unspecified essential hypertension COPD mixed type ([facility]) Class 3 severe obesity due to excess calories without serious comorbidity with body mass index (BMI) of 40.0 to 44.9 in adult ([facility]) Tobacco dependence Tobacco use disorder Bilateral lower extremity edema- Primary Tobacco dependence Tobacco use disorder BMI 40.0-44.9, adult ([facility]) COPD mixed type ([facility]) WINSOME (obstructive sleep apnea) Obstructive sleep apnea (adult) (pediatric) Encounter for subsequent annual wellness visit (AWV) in Medicare patient- Primary Edema of right lower extremity Anxiety and depression ([facility]) Tobacco dependence Tobacco use disorder BMI 40.0-44.9, adult ([facility]) Fibromyalgia Unspecified myalgia and myositis Primary hypertension ([facility]) Unspecified essential hypertension COPD mixed type ([facility]) WINSOME (obstructive sleep apnea)- Primary Obstructive sleep apnea (adult) (pediatric) COPD mixed type (CMS/HCC) Primary hypertension (CMS/HCC) Unspecified essential hypertension Fibromyalgia Unspecified myalgia and myositis BMI 40.0-44.9, adult ([facility]) Tobacco dependence Tobacco use disorder Mixed hyperlipidemia ([facility]) Mixed hyperlipidemia Vitamin D deficiency Vitamin B12 deficiency Other B-complex deficiencies COPD with acute exacerbation ([facility]) COPD with acute exacerbation ([facility])- Primary Morbid (severe) obesity due to excess calories ([facility]) Body mass index (BMI) 40.0-44.9, adult ([facility]) WINSOME (obstructive sleep apnea) Obstructive sleep apnea (adult) (pediatric) COPD mixed type ([facility]) Gastroesophageal reflux disease, unspecified whether esophagitis present Tobacco dependence Tobacco use disorder Gastro-esophageal reflux disease without esophagitis Tremor Abnormal involuntary movements Environmental and seasonal allergies- Primary COPD mixed type ([facility]/HCC) documented in this encounter [facility]* Diagnosis Primary hypertension ([facility])- Primary Unspecified essential hypertension Mixed hyperlipidemia ([facility]) Mixed hyperlipidemia Fibromyalgia Unspecified myalgia and myositis Migraine without aura and without status migrainosus, not intractable ([facility]) Class 3 severe obesity due to excess calories without serious comorbidity with body mass index (BMI) of 40.0 to 44.9 in adult Tobacco dependence Tobacco use disorder Bilateral lower extremity edema Acute non-recurrent sinusitis of other sinus COPD mixed type (CMS/[facility]) Open wound of second toe of left foot, initial encounter Open wound of left foot, initial encounter COPD mixed type (CMS/HCC)- Primary Tobacco dependence Tobacco use disorder BMI 40.0-44.9, adult ([facility]) Body mass index [BMI] 40.0-44.9, adult (Z68.41) Primary hypertension (CMS/[facility]) Unspecified essential hypertension Bilateral lower extremity edema Edema of right lower extremity- Primary BMI 40.0-44.9, adult ([facility]) Shortness of breath COPD mixed type ([facility]/HCC) Primary hypertension ([facility]/HCC) Unspecified essential hypertension Bilateral lower extremity edema Bilateral lower extremity edema- Primary Primary hypertension ([facility]) Unspecified essential hypertension COPD mixed type (CMS/HCC) Class 3 severe obesity due to excess calories without serious comorbidity with body mass index (BMI) of 40.0 to 44.9 in adult Tobacco dependence Tobacco use disorder Bilateral lower extremity edema- Primary Tobacco dependence Tobacco use disorder BMI 40.0-44.9, adult ([facility]) COPD mixed type ([facility]) WINSOME (obstructive sleep apnea) Obstructive sleep apnea (adult) (pediatric) Encounter for subsequent annual wellness visit (AWV) in Medicare patient- Primary Edema of right lower extremity Anxiety and depression ([facility]) Tobacco dependence Tobacco use disorder BMI 40.0-44.9, adult ([facility]) Fibromyalgia Unspecified myalgia and myositis Primary hypertension ([facility]) Unspecified essential hypertension COPD mixed type ([facility]) WINSOME (obstructive sleep apnea)- Primary Obstructive sleep apnea (adult) (pediatric) COPD mixed type ([facility]/HCC) Primary hypertension ([facility]) Unspecified essential hypertension Fibromyalgia Unspecified myalgia and myositis BMI 40.0-44.9, adult ([facility]) Tobacco dependence Tobacco use disorder Mixed hyperlipidemia ([facility]) Mixed hyperlipidemia Vitamin D deficiency Vitamin B12 deficiency Other B-complex deficiencies COPD with acute exacerbation ([facility]) COPD with acute exacerbation ([facility])- Primary Morbid (severe) obesity due to excess calories ([facility]) Body mass index (BMI) 40.0-44.9, adult ([facility]) WINSOME (obstructive sleep apnea) Obstructive sleep apnea (adult) (pediatric) COPD mixed type ([facility]) Gastroesophageal reflux disease, unspecified whether esophagitis present Tobacco dependence Tobacco use disorder Gastro-esophageal reflux disease without esophagitis Tremor Abnormal involuntary movements Fibromyalgia Unspecified myalgia and myositis documented in this encounter [facility]* Diagnosis Primary hypertension ([facility])- Primary Unspecified essential hypertension Mixed hyperlipidemia ([facility]) Mixed hyperlipidemia Fibromyalgia Unspecified myalgia and myositis Migraine without aura and without status migrainosus, not intractable ([facility]) Class 3 severe obesity due to excess calories without serious comorbidity with body mass index (BMI) of 40.0 to 44.9 in adult Tobacco dependence Tobacco use disorder Bilateral lower extremity edema Acute non-recurrent sinusitis of other sinus COPD mixed type ([facility]/HCC) Open wound of second toe of left foot, initial encounter Open wound of left foot, initial encounter COPD mixed type (CMS/HCC)- Primary Tobacco dependence Tobacco use disorder BMI 40.0-44.9, adult ([facility]) Body mass index [BMI] 40.0-44.9, adult (Z68.41) Primary hypertension (CMS/HCC) Unspecified essential hypertension Bilateral lower extremity edema Edema of right lower extremity- Primary BMI 40.0-44.9, adult ([facility]) Shortness of breath COPD mixed type (CMS/[facility]) Primary hypertension (CMS/HCC) Unspecified essential hypertension Bilateral lower extremity edema Bilateral lower extremity edema- Primary Primary hypertension ([facility]) Unspecified essential hypertension COPD mixed type (CMS/[facility]) Class 3 severe obesity due to excess calories without serious comorbidity with body mass index (BMI) of 40.0 to 44.9 in adult Tobacco dependence Tobacco use disorder Bilateral lower extremity edema- Primary Tobacco dependence Tobacco use disorder BMI 40.0-44.9, adult ([facility]) COPD mixed type ([facility]) WINSOME (obstructive sleep apnea) Obstructive sleep apnea (adult) (pediatric) Encounter for subsequent annual wellness visit (AWV) in Medicare patient- Primary Edema of right lower extremity Anxiety and depression ([facility]) Tobacco dependence Tobacco use disorder BMI 40.0-44.9, adult ([facility]) Fibromyalgia Unspecified myalgia and myositis Primary hypertension ([facility]) Unspecified essential hypertension COPD mixed type ([facility]) WINSOME (obstructive sleep apnea)- Primary Obstructive sleep apnea (adult) (pediatric) COPD mixed type ([facility]/HCC) Primary hypertension ([facility]) Unspecified essential hypertension Fibromyalgia Unspecified myalgia and myositis BMI 40.0-44.9, adult ([facility]) Tobacco dependence Tobacco use disorder Mixed hyperlipidemia ([facility]) Mixed hyperlipidemia Vitamin D deficiency Vitamin B12 deficiency Other B-complex deficiencies COPD with acute exacerbation ([facility]) COPD with acute exacerbation ([facility])- Primary Morbid (severe) obesity due to excess calories ([facility]) Body mass index (BMI) 40.0-44.9, adult ([facility]) WINSOME (obstructive sleep apnea) Obstructive sleep apnea (adult) (pediatric) COPD mixed type (CMS/HCC) Gastroesophageal reflux disease, unspecified whether esophagitis present Tobacco dependence Tobacco use disorder Gastro-esophageal reflux disease without esophagitis Tremor Abnormal involuntary movements Mixed hyperlipidemia ([facility]) Mixed hyperlipidemia documented in this encounter [facility] HealthcareEvaluation note* Diagnosis Primary hypertension (CMS/HCC)- Primary Unspecified essential hypertension Mixed hyperlipidemia (CMS/HCC) Mixed hyperlipidemia Fibromyalgia Unspecified myalgia and myositis Migraine without aura and without status migrainosus, not intractable (CMS/[facility]) Class 3 severe obesity due to excess [...] dependence Tobacco use disorder BMI 40.0-44.9, adult (CMS/[facility]) Body mass index [BMI] 40.0-44.9, adult (Z68.41) Primary hypertension (CMS/HCC) Unspecified essential hypertension Bilateral lower extremity edema Edema of right lower extremity- Primary BMI 40.0-44.9, adult ([facility]) Shortness of breath COPD mixed type (CMS/HCC) Primary hypertension (CMS/HCC) Unspecified essential hypertension Bilateral lower extremity edema Bilateral lower extremity edema- Primary Primary hypertension (CMS/HCC) Unspecified essential hypertension COPD mixed type ([facility]/HCC) Class 3 severe obesity due to excess calories without serious comorbidity with body mass index (BMI) of 40.0 to 44.9 in adult Tobacco dependence Tobacco use disorder Bilateral lower extremity edema- Primary Tobacco dependence Tobacco use disorder BMI 40.0-44.9, adult ([facility]) COPD mixed type (CMS/HCC) WINSOME (obstructive sleep apnea) Obstructive sleep apnea (adult) (pediatric) Encounter for subsequent annual wellness visit (AWV) in Medicare patient- Primary Edema of right lower extremity Anxiety and depression ([facility]) Tobacco dependence Tobacco use disorder BMI 40.0-44.9, adult ([facility]) Fibromyalgia Unspecified myalgia and myositis Primary hypertension (CMS/[facility]) Unspecified essential hypertension COPD mixed type (CMS/HCC) WINSOME (obstructive sleep apnea)- Primary Obstructive sleep apnea (adult) (pediatric) COPD mixed type (CMS/HCC) Primary hypertension (CMS/HCC) Unspecified essential hypertension Fibromyalgia Unspecified myalgia and myositis BMI 40.0-44.9, adult ([facility]) Tobacco dependence Tobacco use disorder Mixed hyperlipidemia (CMS/HCC) Mixed hyperlipidemia Vitamin D deficiency Vitamin B12 deficiency Other B-complex deficiencies COPD with acute exacerbation (CMS/HCC) COPD with acute exacerbation ([facility])- Primary Morbid (severe) obesity due to excess calories ([facility]) Body mass index (BMI) 40.0-44.9, adult ([facility]) WINSOME (obstructive sleep apnea) Obstructive sleep apnea (adult) (pediatric) COPD mixed type (CMS/HCC) Gastroesophageal reflux disease, unspecified whether esophagitis present Tobacco dependence Tobacco use disorder Gastro-esophageal reflux disease without esophagitis Tremor Abnormal involuntary movements Tobacco dependence- Primary Tobacco use disorder documented in this encounter [facility] HealthcareEvaluation note* Diagnosis Primary hypertension ([facility])- Primary Unspecified essential hypertension Mixed hyperlipidemia ([facility]) Mixed hyperlipidemia Fibromyalgia Unspecified myalgia and myositis Migraine without aura and without status migrainosus, not intractable ([facility]) Class 3 severe obesity due to excess calories without serious comorbidity with body mass index (BMI) of 40.0 to 44.9 in adult Tobacco dependence Tobacco use disorder Bilateral lower extremity edema Acute non-recurrent sinusitis of other sinus COPD mixed type ([facility]) Open wound of second toe of left foot, initial encounter Open wound of left foot, initial encounter COPD mixed type ([facility]/HCC)- Primary Tobacco dependence Tobacco use disorder BMI 40.0-44.9, adult ([facility]) Body mass index [BMI] 40.0-44.9, adult (Z68.41) Primary hypertension (CMS/HCC) Unspecified essential hypertension Bilateral lower extremity edema Edema of right lower extremity- Primary BMI 40.0-44.9, adult ([facility]) Shortness of breath COPD mixed type ([facility]/HCC) Primary hypertension (CMS/HCC) Unspecified essential hypertension Bilateral [...] dependence Tobacco use disorder BMI 40.0-44.9, adult ([facility]) COPD mixed type ([facility]) WINSOME (obstructive sleep apnea) Obstructive sleep apnea (adult) (pediatric) Encounter for subsequent annual wellness visit (AWV) in Medicare patient- Primary Edema of right lower extremity Anxiety and depression ([facility]) Tobacco dependence Tobacco use disorder BMI 40.0-44.9, adult ([facility]) Fibromyalgia Unspecified myalgia and myositis Primary hypertension ([facility]) Unspecified essential hypertension COPD mixed type ([facility]) WINSOME (obstructive sleep apnea)- Primary Obstructive sleep apnea (adult) (pediatric) COPD mixed type ([facility]) Primary hypertension ([facility]) Unspecified essential hypertension Fibromyalgia Unspecified myalgia and myositis BMI 40.0-44.9, adult ([facility]) Tobacco dependence Tobacco use disorder Mixed hyperlipidemia ([facility]) Mixed hyperlipidemia Vitamin D deficiency Vitamin B12 deficiency Other B-complex deficiencies COPD with acute exacerbation ([facility]) COPD with acute exacerbation ([facility])- Primary Morbid (severe) obesity due to excess calories ([facility]) Body mass index (BMI) 40.0-44.9, adult ([facility]) WINSOME (obstructive sleep apnea) Obstructive sleep apnea (adult) (pediatric) COPD mixed type ([facility]) Gastroesophageal reflux disease, unspecified whether esophagitis present [...] (BMI) of 40.0 to 44.9 in adult ([facility]) Tobacco dependence Tobacco use disorder Bilateral lower extremity edema Acute non-recurrent sinusitis of other sinus COPD mixed type ([facility]) Open wound of second toe of left foot, initial encounter Open wound of left foot, initial encounter COPD mixed type (HCC)- Primary Tobacco dependence Tobacco use disorder BMI 40.0-44.9, adult ([facility]) Body mass index [BMI] 40.0-44.9, adult (Z68.41) Primary hypertension Unspecified essential hypertension Bilateral lower extremity edema Edema of right lower extremity- Primary BMI 40.0-44.9, adult ([facility]) Shortness of breath COPD mixed type ([facility]) Primary hypertension Unspecified essential hypertension Bilateral lower extremity edema Bilateral lower extremity edema- Primary Primary hypertension Unspecified essential hypertension COPD mixed type (HCC) Class 3 severe obesity due to excess calories without serious comorbidity with body mass index (BMI) of 40.0 to 44.9 in adult ([facility]) Tobacco dependence Tobacco use disorder Bilateral lower extremity edema- Primary Tobacco dependence Tobacco use disorder BMI 40.0-44.9, adult ([facility]) COPD mixed type ([facility]) WINSOME (obstructive sleep apnea) Obstructive sleep apnea (adult) (pediatric) Encounter for subsequent annual wellness visit (AWV) in Medicare patient- Primary Edema of right lower extremity Anxiety and depression Tobacco dependence Tobacco use disorder BMI 40.0-44.9, adult ([facility]) Fibromyalgia Unspecified myalgia and myositis Primary hypertension Unspecified essential hypertension COPD mixed type ([facility]) WINSOME (obstructive sleep apnea)- Primary Obstructive sleep apnea (adult) (pediatric) COPD mixed type (HCC) Primary hypertension Unspecified essential hypertension Fibromyalgia Unspecified myalgia and myositis BMI 40.0-44.9, adult ([facility]) Tobacco dependence Tobacco use disorder Mixed hyperlipidemia Mixed hyperlipidemia Vitamin D deficiency Vitamin B12 deficiency Other B-complex deficiencies COPD with acute exacerbation (HCC) COPD with acute exacerbation (HCC)- Primary Morbid (severe) obesity due to excess calories ([facility]) Body mass index (BMI) 40.0-44.9, adult ([facility]) WINSOME (obstructive sleep apnea) Obstructive sleep apnea (adult) (pediatric) COPD mixed type (HCC) Gastroesophageal reflux disease, unspecified whether esophagitis present Tobacco dependence Tobacco use disorder Gastro-esophageal reflux disease without esophagitis Tremor Abnormal involuntary movements Encounter for subsequent annual wellness visit (AWV) in Medicare patient- Primary Chronic kidney disease, stage 3a ([facility]) WINSOME (obstructive sleep apnea) Obstructive sleep apnea [...] for lung cancer documented in this encounter [facility] HealthcareEvaluation note* Diagnosis Primary hypertension- Primary Unspecified essential hypertension Mixed hyperlipidemia Mixed hyperlipidemia Fibromyalgia Unspecified myalgia and myositis Migraine without aura and without status migrainosus, not intractable Class 3 severe obesity due to excess calories without serious comorbidity with body mass index (BMI) of 40.0 to 44.9 in adult ([facility]) Tobacco dependence Tobacco use disorder Bilateral lower extremity edema Acute non-recurrent sinusitis of other sinus COPD mixed type (HCC) Open wound of second toe of left foot, initial encounter Open wound of left foot, initial encounter COPD mixed type (HCC)- Primary Tobacco dependence Tobacco use disorder BMI 40.0-44.9, adult ([facility]) Body mass index [BMI] 40.0-44.9, adult (Z68.41) Primary hypertension Unspecified essential hypertension Bilateral lower extremity edema Edema of right lower extremity- Primary BMI 40.0-44.9, adult ([facility]) Shortness of breath COPD mixed type (HCC) Primary hypertension Unspecified essential hypertension Bilateral lower extremity edema Bilateral lower extremity edema- Primary Primary hypertension Unspecified essential hypertension COPD mixed type (HCC) Class 3 severe obesity due to excess calories without serious comorbidity with body mass index (BMI) of 40.0 to 44.9 in adult ([facility]) Tobacco dependence Tobacco use disorder Bilateral lower extremity edema- Primary Tobacco dependence Tobacco use disorder BMI 40.0-44.9, adult ([facility]) COPD mixed type (HCC) WINSOME (obstructive sleep apnea) Obstructive sleep apnea (adult) (pediatric) Encounter for subsequent annual wellness visit (AWV) in Medicare patient- Primary Edema of right lower extremity Anxiety and depression Tobacco dependence Tobacco use disorder BMI 40.0-44.9, adult ([facility]) Fibromyalgia Unspecified myalgia and myositis Primary hypertension Unspecified essential hypertension COPD mixed type (HCC) WINSOME (obstructive sleep apnea)- Primary Obstructive sleep apnea (adult) (pediatric) COPD mixed type (HCC) Primary hypertension Unspecified essential hypertension Fibromyalgia Unspecified myalgia and myositis BMI 40.0-44.9, adult ([facility]) Tobacco dependence Tobacco use disorder Mixed hyperlipidemia Mixed hyperlipidemia Vitamin D deficiency Vitamin B12 deficiency Other B-complex deficiencies COPD with acute exacerbation (HCC) COPD with acute exacerbation (HCC)- Primary Morbid (severe) obesity due to excess calories ([facility]) Body mass index (BMI) 40.0-44.9, adult ([facility]) WINSOME (obstructive sleep apnea) Obstructive sleep apnea (adult) (pediatric) COPD mixed type (HCC) Gastroesophageal reflux disease, unspecified whether esophagitis present Tobacco dependence Tobacco use disorder Gastro-esophageal reflux disease without esophagitis Tremor Abnormal involuntary movements Encounter for subsequent annual wellness visit (AWV) in Medicare patient- Primary Chronic kidney disease, stage 3a ([facility]) WINSOME (obstructive sleep apnea) Obstructive sleep apnea [...] (BMI) of 40.0 to 44.9 in adult ([facility]) Tobacco dependence Tobacco use disorder Bilateral lower extremity edema Acute non-recurrent sinusitis of other sinus COPD mixed type (HCC) Open wound of second toe of left foot, initial encounter Open wound of left foot, initial encounter COPD mixed type (HCC)- Primary Tobacco dependence Tobacco use disorder BMI 40.0-44.9, adult ([facility]) Body mass index [BMI] 40.0-44.9, adult (Z68.41) Primary hypertension Unspecified essential hypertension Bilateral lower extremity edema Edema of right lower extremity- Primary BMI 40.0-44.9, adult ([facility]) Shortness of breath COPD mixed type (HCC) Primary hypertension Unspecified essential hypertension Bilateral lower extremity edema Bilateral lower extremity edema- Primary Primary hypertension Unspecified essential hypertension COPD mixed type (HCC) Class 3 severe obesity due to excess calories without serious comorbidity with body mass index (BMI) of 40.0 to 44.9 in adult ([facility]) Tobacco dependence Tobacco use disorder Bilateral lower extremity edema- Primary Tobacco dependence Tobacco use disorder BMI 40.0-44.9, adult ([facility]) COPD mixed type ([facility]) WINSOME (obstructive sleep apnea) Obstructive sleep apnea (adult) (pediatric) Encounter for subsequent annual wellness visit (AWV) in Medicare patient- Primary Edema of right lower extremity Anxiety and depression Tobacco dependence Tobacco use disorder BMI 40.0-44.9, adult ([facility]) Fibromyalgia Unspecified myalgia and myositis Primary hypertension Unspecified essential hypertension COPD mixed type ([facility]) WINSOME (obstructive sleep apnea)- Primary Obstructive sleep apnea (adult) (pediatric) COPD mixed type (HCC) Primary hypertension Unspecified essential hypertension Fibromyalgia Unspecified myalgia and myositis BMI 40.0-44.9, adult ([facility]) Tobacco dependence Tobacco use disorder Mixed hyperlipidemia Mixed hyperlipidemia Vitamin D deficiency Vitamin B12 deficiency Other B-complex deficiencies COPD with acute exacerbation ([facility]) COPD with acute exacerbation ([facility])- Primary Morbid (severe) obesity due to excess calories ([facility]) Body mass index (BMI) 40.0-44.9, adult ([facility]) WINSOME (obstructive sleep apnea) Obstructive sleep apnea (adult) (pediatric) COPD mixed type ([facility]) Gastroesophageal reflux disease, unspecified whether esophagitis present Tobacco dependence Tobacco use disorder Gastro-esophageal reflux disease without esophagitis Tremor Abnormal involuntary movements Encounter for subsequent annual wellness visit (AWV) in Medicare patient- Primary Chronic kidney disease, stage 3a ([facility]) WINSOME (obstructive sleep apnea) Obstructive sleep apnea (adult) (pediatric) COPD mixed type ([facility]) Gastroesophageal reflux disease, unspecified whether esophagitis present [...] laterality- Primary documented in this encounter [facility] HealthcareEvaluation note* Diagnosis Primary hypertension- Primary Unspecified essential hypertension Mixed hyperlipidemia Mixed hyperlipidemia Fibromyalgia Unspecified myalgia and myositis Migraine without aura and without status migrainosus, not intractable Class 3 severe obesity due to excess calories without serious comorbidity with body mass index (BMI) of 40.0 to 44.9 in adult ([facility]) Tobacco dependence Tobacco use disorder Bilateral lower extremity edema Acute non-recurrent sinusitis of other sinus COPD mixed type ([facility]) Open wound of second toe of left foot, initial encounter Open wound of left foot, initial encounter COPD mixed type (HCC)- Primary Tobacco dependence Tobacco use disorder BMI 40.0-44.9, adult ([facility]) Body mass index [BMI] 40.0-44.9, adult (Z68.41) Primary hypertension Unspecified essential hypertension Bilateral lower extremity edema Edema of right lower extremity- Primary BMI 40.0-44.9, adult ([facility]) Shortness of breath COPD mixed type ([facility]) Primary hypertension Unspecified essential hypertension Bilateral lower extremity edema Bilateral lower extremity edema- Primary Primary hypertension Unspecified essential hypertension COPD mixed type ([facility]) Class 3 severe obesity due to excess calories without serious comorbidity with body mass index (BMI) of 40.0 to 44.9 in adult ([facility]) Tobacco dependence Tobacco use disorder Bilateral lower extremity edema- Primary Tobacco dependence Tobacco use disorder BMI 40.0-44.9, adult ([facility]) COPD mixed type ([facility]) WINSOME (obstructive sleep apnea) Obstructive sleep apnea (adult) (pediatric) Encounter for subsequent annual wellness visit (AWV) in Medicare patient- Primary Edema of right lower extremity Anxiety and depression Tobacco dependence Tobacco use disorder BMI 40.0-44.9, adult ([facility]) Fibromyalgia Unspecified myalgia and myositis Primary hypertension Unspecified essential hypertension COPD mixed type ([facility]) WINSOME (obstructive sleep apnea)- Primary Obstructive sleep apnea (adult) (pediatric) COPD mixed type (HCC) Primary hypertension Unspecified essential hypertension Fibromyalgia Unspecified myalgia and myositis BMI 40.0-44.9, adult ([facility]) Tobacco dependence Tobacco use disorder Mixed hyperlipidemia Mixed hyperlipidemia Vitamin D deficiency Vitamin B12 deficiency Other B-complex deficiencies COPD with acute exacerbation (HCC) COPD with acute exacerbation (HCC)- Primary Morbid (severe) obesity due to excess calories ([facility]) Body mass index (BMI) 40.0-44.9, adult ([facility]) WINSOME (obstructive sleep apnea) Obstructive sleep apnea (adult) (pediatric) COPD mixed type (HCC) Gastroesophageal reflux disease, unspecified whether esophagitis present Tobacco dependence Tobacco use disorder Gastro-esophageal reflux disease without esophagitis Tremor Abnormal involuntary movements Encounter for subsequent annual wellness visit (AWV) in Medicare patient- Primary Chronic kidney disease, stage 3a ([facility]) WINSOME (obstructive sleep apnea) Obstructive sleep apnea [...] Tobacco use disorder documented in this encounter [facility] HealthcareEvaluation note* Diagnosis Primary hypertension- Primary Unspecified essential hypertension Mixed hyperlipidemia Mixed hyperlipidemia Fibromyalgia Unspecified myalgia and myositis Migraine without aura and without status migrainosus, not intractable Class 3 severe obesity due to excess calories without serious comorbidity with body mass index (BMI) of 40.0 to 44.9 in adult ([facility]) Tobacco dependence Tobacco use disorder Bilateral lower extremity edema Acute non-recurrent sinusitis of other sinus COPD mixed type (HCC) Open wound of second toe of left foot, initial encounter Open wound of left foot, initial encounter COPD mixed type (HCC)- Primary Tobacco dependence Tobacco use disorder BMI 40.0-44.9, adult ([facility]) Body mass index [BMI] 40.0-44.9, adult (Z68.41) Primary hypertension Unspecified essential hypertension Bilateral lower extremity edema Edema of right lower extremity- Primary BMI 40.0-44.9, adult ([facility]) Shortness of breath COPD mixed type (HCC) Primary hypertension Unspecified essential hypertension Bilateral lower extremity edema Bilateral lower extremity edema- Primary Primary hypertension Unspecified essential hypertension COPD mixed type (HCC) Class 3 severe obesity due to excess calories without serious comorbidity with body mass index (BMI) of 40.0 to 44.9 in adult ([facility]) Tobacco dependence Tobacco use disorder Bilateral lower extremity edema- Primary Tobacco dependence Tobacco use disorder BMI 40.0-44.9, adult ([facility]) COPD mixed type (HCC) WINSOME (obstructive sleep apnea) Obstructive sleep apnea (adult) (pediatric) Encounter for subsequent annual wellness visit (AWV) in Medicare patient- Primary Edema of right lower extremity Anxiety and depression Tobacco dependence Tobacco use disorder BMI 40.0-44.9, adult ([facility]) Fibromyalgia Unspecified myalgia and myositis Primary hypertension Unspecified essential hypertension COPD mixed type (HCC) WINSOME (obstructive sleep apnea)- Primary Obstructive sleep apnea (adult) (pediatric) COPD mixed type (HCC) Primary hypertension Unspecified essential hypertension Fibromyalgia Unspecified myalgia and myositis BMI 40.0-44.9, adult ([facility]) Tobacco dependence Tobacco use disorder Mixed hyperlipidemia Mixed hyperlipidemia Vitamin D deficiency Vitamin B12 deficiency Other B-complex deficiencies COPD with acute exacerbation (HCC) COPD with acute exacerbation (HCC)- Primary Morbid (severe) obesity due to excess calories ([facility]) Body mass index (BMI) 40.0-44.9, adult ([facility]) WINSOME (obstructive sleep apnea) Obstructive sleep apnea (adult) (pediatric) COPD mixed type (HCC) Gastroesophageal reflux disease, unspecified whether esophagitis present Tobacco dependence Tobacco use disorder Gastro-esophageal reflux disease without esophagitis Tremor Abnormal involuntary movements Encounter for subsequent annual wellness visit (AWV) in Medicare patient- Primary Chronic kidney disease, stage 3a ([facility]) WINSOME (obstructive sleep apnea) Obstructive sleep apnea (adult) (pediatric) COPD mixed type ([facility]) Gastroesophageal reflux disease, unspecified whether esophagitis present [...] unspecified laterality- Primary documented in this encounter [facility] HealthcareEvaluation note* Diagnosis Primary hypertension- Primary Unspecified essential hypertension Mixed hyperlipidemia Mixed hyperlipidemia Fibromyalgia Unspecified myalgia and myositis Migraine without aura and without status migrainosus, not intractable Class 3 severe obesity due to excess calories without serious comorbidity with body mass index (BMI) of 40.0 to 44.9 in adult ([facility]) Tobacco dependence Tobacco use disorder Bilateral lower extremity edema Acute non-recurrent sinusitis of other sinus COPD mixed type ([facility]) Open wound of second toe of left foot, initial encounter Open wound of left foot, initial encounter COPD mixed type (HCC)- Primary Tobacco dependence Tobacco use disorder BMI 40.0-44.9, adult ([facility]) Body mass index [BMI] 40.0-44.9, adult (Z68.41) Primary hypertension Unspecified essential hypertension Bilateral lower extremity edema Edema of right lower extremity- Primary BMI 40.0-44.9, adult ([facility]) Shortness of breath COPD mixed type ([facility]) Primary hypertension Unspecified essential hypertension Bilateral lower extremity edema Bilateral lower extremity edema- Primary Primary hypertension Unspecified essential hypertension COPD mixed type (HCC) Class 3 severe obesity due to excess calories without serious comorbidity with body mass index (BMI) of 40.0 to 44.9 in adult ([facility]) Tobacco dependence Tobacco use disorder Bilateral lower extremity edema- Primary Tobacco dependence Tobacco use disorder BMI 40.0-44.9, adult ([facility]) COPD mixed type (HCC) WINSOME (obstructive sleep apnea) Obstructive sleep apnea (adult) (pediatric) Encounter for subsequent annual wellness visit (AWV) in Medicare patient- Primary Edema of right lower extremity Anxiety and depression Tobacco dependence Tobacco use disorder BMI 40.0-44.9, adult ([facility]) Fibromyalgia Unspecified myalgia and myositis Primary hypertension Unspecified essential hypertension COPD mixed type ([facility]) WINSOME (obstructive sleep apnea)- Primary Obstructive sleep apnea (adult) (pediatric) COPD mixed type (HCC) Primary hypertension Unspecified essential hypertension Fibromyalgia Unspecified myalgia and myositis BMI 40.0-44.9, adult ([facility]) Tobacco dependence Tobacco use disorder Mixed hyperlipidemia Mixed hyperlipidemia Vitamin D deficiency Vitamin B12 deficiency Other B-complex deficiencies COPD with acute exacerbation (HCC) COPD with acute exacerbation (HCC)- Primary Morbid (severe) obesity due to excess calories ([facility]) Body mass index (BMI) 40.0-44.9, adult ([facility]) WINSOME (obstructive sleep apnea) Obstructive sleep apnea (adult) (pediatric) COPD mixed type (HCC) Gastroesophageal reflux disease, unspecified whether esophagitis present Tobacco dependence Tobacco use disorder Gastro-esophageal reflux disease without esophagitis Tremor Abnormal involuntary movements Encounter for subsequent annual wellness visit (AWV) in Medicare patient- Primary Chronic kidney disease, stage 3a ([facility]) WINSOME (obstructive sleep apnea) Obstructive sleep apnea [...] Localized edema Edema documented in this encounter [facility] HealthcareEvaluation note* Diagnosis Onset Date Resolution Status Admit Date Bilateral lower extremity edema acuteSeptember 2024 11:11amCOPD mixed typeacuteSeptember 2024 11:11amEssential hypertensionacuteSept2024 11:11amFibromyalgiaacute October 31, 2024 11:11amMorbid obesity due to excess caloriesacuteOctober 31, 2024 11:11am [facility] Work Phone: Hospital Discharge instructions No data available for this section General Surgery [place] Progress note No data available for this section [facility] [place] Reason for referral (narrative)No reason for referral information availableNationwide Children'S Hospital Work Phone: Reojcj for visit Narrative* Consultation (Routine) - ClosedSpecialtyDiagnoses / ProceduresReferred By ContactReferred To Contact Neurology Diagnoses Tremor Procedures [place] OFFICE/OUTPATIENT NEW HIGH MDM 60 MINUTES Jaymie Phoenix NP [address] [place] [address] Phone: tel: fax: Saumya Back, DO [address] [place] [id number] Phone: tel: fax: Referral IDStatusReasonStart DateExpiration DateVisits RequestedVisits [id number] Specialty Services Required / [facility] Healthcare Summary Purpose Family History No Family History Records FoundNo Family History Records FoundNo Family History Records FoundNo Family History Records FoundNo Family History Records FoundNo Family History Records Found Advance Directives No Advanced Directives Records Found Advance Directive Response Recorded Date/ Time Advance Directives No October 5:27pm Reason for Referral SpecialtyDiagnoses / ProceduresReferred By ContactReferred To ContactRadiology Diagnoses Edema of right lower extremity Procedures Vascular US lower extremity venous duplex right Jaymie Phoenix NP [address] [place] [address] Referral IDStatusReasonStart DateExpiration DateVisits RequestedVisits [id number]/ Chief Complaint and Reason for Visit Chief Complaint Admit Date August 29, 2024 2:10 pm 2M October 31, 2024 11:11am Reason for Visit Admit Date Bilateral lower extremity edema Septembe r 2024 11:11am COPD mixed type October 31, 2024 11:11am Essential hypertension October 31, 025 11:11am Fibromyalgia October 31, 2024 11:11am Morbid obesity due to excess calories Se ptember 2024 11:11am Additional Source Comments INFORMATION SOURCE (unrecogn ized section and content) DATE CREATED AUTHOR 12/26/2021 [facility] DATE CREATED AUTHOR AUTHOR'S ORGANIZ ATION 03/25/2022 [facility] DATE CREATED AUTHOR AUTHOR'S ORGANIZ ATION 07/17/2022 [facility] DATE CREATED AUTHOR AUTHOR'S ORGANIZ ATION 08/31/2024 [facility] DATE CREATED AUTHOR AUTHOR'S ORGANIZ ATION 09/02/2024 [facility] DATE CREATED AUTHOR AUTHOR'S ORGANIZ ATION 11/25/2024 [facility] Patient Care team informatio n (unrecognized section and content) Team MemberRelationshipSpecialtyStart DateEnd Date Jaymie Phoenix NP [address] [place] [address] Nurse PractitionerFamily Doxailot28/19/23Team MemberRelationshipSpecialtyStart DateEnd Date Shaikh Marquez MD [address] [place] [address] PCP - GeneralInternal Medicine03/25/23 Jaymie Phoenix NP [address] [place] [address] Nurse PractitionerFamily Epcjwmjf78/19/23Team MemberRelationshipSpecialtyStart DateEnd Date Shaikh Marquez MD [address] [place] [address] [facility] - [facility]03/25/23 Jaymie Phoenix NP [address] [place] [address] [facility]01/26/23Team MemberRelationshipSpecialtyStart DateEnd Date Rohan Rodríguez MD [address] [place] [address] PCP - [facility]05/13/23 Jaymie Phoenix NP [address] [place] [address] [facility] Aqthkhcv88/19/23 Jaymie Phoenix NP [address] [place] [address] Nurse Pract[facility] Medicine05/13/23Team MemberRelationshipSpecialtyStart DateEnd Date Rohan Rodríguez MD [address] [place] [address] PCP - [facility] Medicine05/13/23 Jaymie Phoenix NP [address] [place] [address] Nurse Pract[facility] Bpjnczhj37/19/23 Jaymie Phoenix NP [address] [place] [address] Nurse Pract[facility]erD[facility]05/13/23Team MemberRelationshipSpecialtyStart DateEnd Date Rhoan Rodríguez MD [address] [place] [address] PCP - [facility]05/13/23 Jaymie Phoenix NP [address] [place] [address] Nurse Pract[facility]erD[facility]01/26/23 Jaymie Phoenix NP [address] [place] [address] Nurse [facility]05/13/23Team MemberRelationshipSpecialtyStart DateEnd Date Rohan Rodríguez MD [address] [place] [address] PCP - [facility]05/13/23 Jaymie Phoenix NP [address] [place] [address] Nurse Pract[facility]erD[facility]01/26/23 Jaymie Phoenix NP [address] [place] [address] Nurse Pract[facility]erD[facility]05/13/23Team MemberRelationshipSpecialtyStart DateEnd Date Rohan Rodríguez MD [address] [place] [address] PCP - [facility] Medicine05/13/23 Jaymie Phoenix NP [address] [place] [address] Nurse Pract[facility]erD[facility]01/26/23 Jaymie Phoenix NP [address] [place] [address] Nurse Pract[facility]05/13/23Team MemberRelationshipSpecialtyStart DateEnd Date Rohan Rodríguez MD [address] [place] [address] PCP - [facility]05/13/23 Jaymie Phoenix NP [address] [place] [address] Nurse Pract[facility]01/26/23 Jaymie Phoenix NP [address] [place] [address] Nurse Pract[facility]05/13/23Team MemberRelationshipSpecialtyStart DateEnd Date Rohan Rodríguez MD [address] [place] [address] PCP - [facility]05/13/23 Jaymie Phoenix NP [address] [place] [address] Nurse Practitionermily Vjpedxdt78/19/23 Jaymie Phoenix NP [address] [place] [address] Nurse Pract[facility]05/13/23Team MemberRelationshipSpecialtyStart DateEnd Date Rohan Rodríguez MD [address] [place] [address] PCP - Generalmily Medicine05/13/23 Jaymie Phoenix NP [address] [place] [address] Nurse Pract[facility]erD[facility]01/26/23 Jaymie Phoenix NP [address] [place] [address] Nurse Pract[facility]erD[facility]05/13/23Team MemberRelationshipSpecialtyStart DateEnd Date Rohan Rodríguez MD [address] [place] [address] PCP - [facility] Medicine05/13/23 Jaymie Phoenix NP [address] [place] [address] Nurse Pract[facility]erD[facility]01/26/23 Jaymie Phoenix NP [address] [place] [address] Nurse Pract[facility]erD[facility]05/13/23Team MemberRelationshipSpecialtyStart DateEnd Date Rohan Rodríguez MD [address] [place] [address] PCP - Generalmily Medicine05/13/23 Jaymie Phoenix NP [address] [place] [address] Nurse Pract[facility] Aykmtsrh04/19/23 Jaymie Phoenix NP [address] [place] [address] Nurse Pract[facility]erD[facility]05/13/23Team MemberRelationshipSpecialtyStart DateEnd Date Rohan Rodríguez MD [address] [place] [address] PCP - Generalmi Medicine05/13/23 Jaymie Phoenix NP [address] [place] [address] Nurse Pract[facility]erT[facility] Emwdbogr47/19/23 Jaymie Phoenix NP [address] [place] [address] Nurse PractitionerT[facility] Medicine05/13/23Team MemberRelationshipSpecialtyStart DateEnd Date Rohan Rodríguez MD [address] [place] [address] PCP - GeneralFamily Medicine05/13/23 Jaymie Phoenix NP [address] [place] [address] Nurse Pract[facility]erT[facility] Mmiwftjw19/19/23 Jaymie Phoenix NP [address] [place] [address] Nurse PractitionerD[facility]05/13/23Team MemberRelationshipSpecialtyStart DateEnd Date Rohan Rodríguez MD [address] [place] [address] PCP - [facility]05/13/23 Jaymie Phoenix NP [address] [place] [address] Nurse Pract[facility]erD[facility]01/26/23 Jaymie Phoenix NP [address] [place] [address] Nurse PractitionerD[facility]05/13/23Team MemberRelationshipSpecialtyStart DateEnd Date Rohan Rodríguez MD [address] [place] [address] PCP - GeneralD[facility] Center05/13/23 Jaymie Phoenix NP [address] [place] [address] Nurse PractitionerD[facility]01/26/23 Jaymie Phoenix NP [address] [place] [address] Nurse Pract[facility]erT[facility] Medicine05/13/23Team MemberRelationshipSpecialtyStart DateEnd Rohan Rodríguez MD [address] [place] [address] PCP - Generalmi Medicine05/13/23 Jaymie Phoenix, NILE [address] [place] [address] Nurse PractitionerT[facility]ista [facility] Yywqwinu87/19/23 Jaymie Phoenix NP [address] [place] [address] Nurse PractitionerD[facility]05/13/23Te MemberRelationshipSpecialtyStart DateEnd Date Rohan Rodríguez MD [address] [place] [address] PCP - [facility] Medicine05/13/23 Jaymie Phoenix NP [address] [place] [address] Nurse PractitionerT[facility] Mbnemekj02/19/23 Jaymie Phoenix NP [address] [place] [address] Nurse PractitionerD[facility]05/13/23Team MemberRelationshipSpecialtyStart DateEnd Date Rohan Rodríguez MD [address] [place] [address] PCP - [facility] Medicine05/13/23 Jaymie Phoenix NP [address] [place] [address] Nurse PractitionerD[facility]01/26/23 aJymie Phoenix NP [address] [place] [address] Nurse PractitionerD[facility]05/13/23Team MemberRelationshipSpecialtyStart DateEnd Date Rohan Rodríguez MD [address] [place] [address] PCP - [facility]05/13/23 Jaymie Phoenix NP [address] [place] [address] Nurse Pract[facility]erD[facility]01/26/23 Jaymie Phoenix NP [address] [place] [address] Nurse Pract[facility]erD[facility]05/13/23Team MemberRelationshipSpecialtyStart DateEnd Date Rohan Rodríguez MD [address] [place] [address] PCP - [facility]05/13/23 Jaymie Phoenix NP [address] [place] [address] Nurse Pract[facility]erD[facility]01/26/23 Jaymie Phoenix NP [address] [place] [address] Nurse Pract[facility]erD[facility]05/13/23Team MemberRelationshipSpecialtyStart DateEnd Date Rohan Rodríguez MD [address] [place] [address] PCP - [facility]05/13/23 Jaymie Phoenix NP [address] [place] [address] Nurse Pract[facility]erD[facility]01/26/23 Jaymie Phoenix NP [address] [place] [address] Nurse Pract[facility]05/13/23Team MemberRelationshipSpecialtyStart DateEnd Date Rohan Rodríguez MD [address] [place] [address] PCP - [facility]05/13/23 Jaymie Phoenix NP [address] [place] [address] Nurse Pract[facility]01/26/23 Jaymie Phoenix NP [address] [place] [address] Nurse Pract[facility]erD[facility]05/13/23Team MemberRelationshipSpecialtyStart DateEnd Date Rohan Rodríguez MD [address] [place] [address] PCP - [facility] Medicine05/13/23 Jaymie Phoenix NP [address] [place] [address] Nurse Pract[facility]erD[facility]01/26/23 Jaymie Phoenix NP [address] [place] [address] Nurse Pract[facility]erD[facility]05/13/23Team MemberRelationshipSpecialtyStart DateEnd Date Rohan Rodríguez MD [address] [place] [address] PCP - [facility]05/13/23 Jaymie Phoenix NP [address] [place] [address] Nurse Pract[facility]01/26/23 Jaymie Phoenix NP [address] [place] [address] Nurse Pract[facility]05/13/23Team MemberRelationshipSpecialtyStart DateEnd Date Rohan Rodríguez MD [address] [place] [address] PCP - [facility]05/13/23 Jaymie Phoenix NP [address] [place] [address] [facility] Ylgjqwzn41/19/23 Jaymie Phoenix NP [address] [place] [address] Nurse Pract[facility]erD[facility]05/13/23Team MemberRelationshipSpecialtyStart DateEnd Date Rohan Rodríguez MD [address] [place] [address] PCP - [facility]05/13/23 Jaymie Phoenix NP [address] [place] [address] Nurse PractitionerD[facility]01/26/23 Jaymie Phoenix NP [address] [place] [address] Nurse Pract[facility]erD[facility]05/13/23 Team Status: Active Member Role Status Dates Jaymie Phoenix [employer] Primary Care Provider Active Team Status: Active Member Role Status Dates Jaymie Phoenix [employer] Primary Care Provider Active Start: August 29, 2024 Francisco Judge ProviderActiveStart: August 29, 2024 Team Status: Active Member Role Status Dates Jaymie Phoenix [employer] Primary Care Provider Active Start: October 10, 2024 Jaymie Phoenix NP-CAttending ProviderActiveStart: October 10, 2024 Team Status: Inactive Member Role Status Dates Jaymie Phoenix [employer] Primary Care Provider Active Start: October 31, 2024 End: October 31, 2024Jaymie Phoenix [employer]-CAttending ProviderActiveStart: October 31, 2024 End: October 31, 2024 Reason for Visit (unrecogniz ed section and content) ReasonCommentsMed RefillReasonCommentsMed RefillReasonOnset DateCommentsMed Tmustq5906/14/2024ReasonCommentsMedicare Annual Wellness Visit InitialReason CommentsMed Change Request Goals (unrecognized section and content) [...] BE BASED ON THE PRIMARY CLINICAL RECORDS. [facility] [employer] [facility]. provides no warranty or guarantee of the accuracy or completeness of information in this document.
--- NOTE | 2024-11-29 14:17 | PM.CN ---
Consult Note: HPI Data of Consult Patient: known to practice within the last 3 years Consult date: 10/04/24 Requesting Physician: Jenniffer Vazquez NP Primary Care Provider: Jaymie Phoenix NP Consult Narrative Reason for consult: low back pain and LLE pain Narrative: Gertrudis Gagnon a pleasant 59 year old female presents for evaluation of worsening low back and left leg pain, previous pt of Dr Guidry. pain increasing over the last 6 months, noting pain today 7/10 aching. pain increased with standing, walking, sitting, lying, stairs, bending, and sleep. pt utilizing pregabalin 100mg Tid, flexeril 10mg TID PRN. pt noting brain fog and forgetfulness since last visit. recently underwent lumbar MRI with results below. on 11/20/24 she underwent left L4-5 L5-S1 TFESI with 50% improvement for 1 week per pt, previously pain was radiating into left foot now stoppping above the knee. cc:: CC: Jenniffer Vazquez NP Review of Systems ROS Musculoskeletal Reports: back pain and joint pain [facility] Medical History Tobacco abuse ?Z72.0 - Tobacco use (ICD-10) COPD (chronic obstructive pulmonary disease) ?J44.9 - Chronic obstructive pulmonary disease, unspecified (ICD-10) Anxiety ?F41.9 - Anxiety disorder, unspecified (ICD-10) Depression ?F32.A - Depression, unspecified (ICD-10) High cholesterol ?E78.00 - Pure hypercholesterolemia, unspecified (ICD-10) HTN (hypertension) ?I10 - Essential (primary) hypertension (ICD-10) Family History Other Family history not known due to adoption Social History Within the past year, how often did you have a drink containing alcohol: monthly or less Within the past year, how many standard drinks containing alcohol did you have on a typical day: 1 or 2 Total score: 0 Score interpretation: A score less than 3 is consistent with normal alcohol consumption. Smoking status: Current every day smoker Non-prescribed substance use: denies use Previous occupational history: retired Are you now , , , , never or living with a partner: In a typical week, how many times do you talk on the telephone with family, friends, or neighbors: 3 or more times per week How often do you get together with friends or relatives: 3 or more times per week Little interest or pleasure in doing things: not at all Feeling down, depressed, or hopeless: not at all Feel stressed/tense/nervous/anxious/difficulty sleeping: not at all Do you think of yourself as: straight/heterosexual Gender Identity: female Meds Home Medications and Allergies Home Medications ?Medication ?Instructions ?Recorded ?Confirmed ?Type albuterol sulfate 2.5 mg/3 mL 1.25 mg (1.5 mL) inhalation Q6H 12/24/23 11/20/24 Rx (0.083 %) solution for nebulization PRN shortness of breath or wheezing #90 mL amitriptyline 100 mg tablet 100 mg PO QPM 12/25/23 11/20/24 History lamotrigine 150 mg tablet 150 mg PO DAILY 12/25/23 11/20/24 History lamotrigine 200 mg tablet 200 mg PO QPM 12/25/23 11/20/24 History meloxicam 15 mg tablet 15 mg PO QAM 12/25/23 11/20/24 History Held on 12/28/23. Instructions: Resume on 01/04/24. hold while taking medrol dose pack omeprazole 40 mg capsule,delayed 40 mg PO DAILY 12/25/23 11/20/24 History release prazosin 2 mg capsule 2 mg PO QPM 12/25/23 11/20/24 History pregabalin 100 mg capsule 300 mg PO TID 12/25/23 11/20/24 History propranolol 40 mg tablet 40 mg PO BID 12/25/23 11/20/24 History quetiapine 100 mg tablet 300 mg PO DAILY 12/25/23 11/20/24 History spironolactone 50 mg tablet 50 mg PO QAM 12/25/23 11/20/24 History prazosin 1 mg capsule mg 06/28/24 History cariprazine 4.5 mg capsule 4.5 mg PO DAILY 09/14/24 11/20/24 History (Delmi) cyclobenzaprine 10 mg tablet 10 mg PO TID PRN muscle spasm #90 09/14/24 11/20/24 Rx tabs simvastatin 40 mg tablet 40 mg PO DAILY 09/14/24 11/20/24 History Allergies Allergy/AdvReac Type Severity Reaction Status Date / Time prednisone Allergy Severe Anaphylaxis Verified 11/20/24 09:56 Penicillins AdvReac Severe Anaphylaxis Verified 11/20/24 09:56 Exam Constitutional Documenting provider has reviewed patient's vital signs: yes Common normals: no apparent distress, oriented x3, healthy appearing, alert and well nourished General appearance: cooperative HENMT Common normals: normocephalic, hearing grossly normal bilaterally and moist oral mucous membranes Head and scalp: normocephalic Eye Common normals: PERRL Pupil: PERRL Neck & C-Spine Common normals: full ROM General: normal visual inspection Chest Common normals: inspection of chest normal Respiratory Common normals: normal respiratory effort, no retractions and no use of accessory muscles Back & Pelvis Lumbar spine/lower back: pain with ROM and lumbar spinal tenderness Sacroiliac joints: SI joint(s) abnormal Other: left sij positive natasha(patricks), gaenslens, thigh thrust, compression test Neuro Common normals: oriented x3 Sensorium/orientation: alert Psych Common normals: mental status grossly normal, thought process normal, cooperative, affect normal, speech normal and activity/motor behavior normal Speech: normal speech Thought process: normal thought process Results Imaging Lumbar MRI: Attestation: I have reviewed the pertinent imaging results. Radiologist's impression: Lumbar vertebral heights, alignment unremarkable. Bone marrow signal is unremarkable with minimal endplate marrow changes L2-L3 appearing predominantly T2 hyperintense and T1 hypointense. Intermargin plate spurring notably L1-L4. Minimal anterolisthesis ascending L5-S1 and from L1 through L4. Conus medullaris service normally mid L2. Paraspinal soft tissues are unremarkable. T12-L1: Unremarkable. L1-2: Disc desiccation. No significant disc disease central canal or neural foramen narrowing identified. L2-3: Broad-based disc bulge with moderate facet arthropathy. Trace facet joint effusion. Mild left greater than right neural foramina narrowing. Canal is patent. L3-L4: Broad-based disc bulge with enfn-zi-rswarxqy facet arthropathy. Moderate left neural from narrowing unrl-vq-hzyzcbll right neural from narrowing. L4-5: Disc desiccation with moderate facet arthropathy. Minimal endplate spurring extending both foramina regions causing mild right moderate left neural foraminal narrowing. L5-S1: Circumferential disc bulge with superimposed subarticular extrusion measuring 9 x 6 mm. This contacts the traversing left S1 nerve root. Otherwise mild left moderate moderate right-sided neural foraminal narrowing. Moderate facet arthropathy. Additional Findings Additional findings: If on a controlled substance or opioids, I have checked an [place] report on this patient and there are no aberrancies noted in the prescribing history.??If on a controlled substance or opioid a drug screen was completed and reviewed within the last year, and if there has not been a drug screen completed we ordered one today to monitor higher risk, state monitored pain medication use. As part of providing excellent, safe, comprehensive care, the following was completed at our patient's visit: 1. A medication reconciliation and review to ensure accurate knowledge of current/active medications, including asking our patients to inform us about any tiaa-cgm-rcvbynr medications or herbal remedies/nutritional supplements/alternative remedies. 2. A review to specifically ensure our patients have had annual screening for screening for depression, screening for tobacco use, and screening for unhealthy alcohol use. For concerning screenings had a discussion with the patient, provided patient education, and recommended follow-up with primary care provider when appropriate. If patient noted with a risk of falling, they received education on strength, gait, and balance training to prevent future risk of falling. Portions of this note may have been carried over from the previous visit and updated as appropriate. Please note this office utilizes paper charting in addition to the electronic medical record. A list of current medications, vitals, and PMH is available there as the clinical staff outside of myself do not have access to [facility] charting during the clinic day operations. As part of providing quality comprehensive care the current medications, vitals, and PMH were reviewed in the paper chart. Assessment and Plan Assessment and Plan (1) Sacroiliitis: (2) Lumbar radiculopathy: Assessment and Plan: ?11/20/24 left L4-5 L5-S1 TFESI >50% improvement for 1 week (3) Lumbar stenosis with neurogenic claudication: (4) Myalgia, other site: (5) Degenerative disc disease (DDD) of lumbar region with axial back pain and referred sclerotomal pain: Plan proceed with diagnostic left SIJ injection in consideration of therapeutic injection vs SIJ fusion refer to Dr Muhammad for NS consultation as requested by patient, can consider lumbar surgical intervention vs sij fusion decrease pregabalin 75mg BID continue flexeril 10mg TID prn pain/spasms f/u 2 weeks after SIJ injection
== END 2024-11-29 13:49 | disposition home or self-care (01) ==
LOC: PM 13:49
PROVIDERS: PCP Nurse Practitioner; Visit Provider Nurse Practitioner
DX: M46.1 Sacroiliitis, not elsewhere classified (principal); M54.16 Radiculopathy, lumbar region; M48.062 Spinal stenosis, lumbar region with neurogenic claudication; M79.18 Myalgia, other site; M51.362 Other intervertebral disc degeneration, lumbar region with discogenic back pain and lower extremity pain
CPT/HCPCS: G0463

== ENCOUNTER 2024-12-11 06:44 | Day surgery (SDC) | payer MEDICARE, SELFPAY ==
--- OUTSIDE RECORDS SUMMARY | 2023-06-15 08:00 | XMS_ITS ---
Author Organization [facility] in [place] Address [address] [place] [address] Care Team Providers Care Delimer Name Role Phone Jaymie Phoenix CNP Primary Care Provider Unavail able Jackson Moralez Unavailable [phone] Allergies Allergen (clinical drug ingredient) Drug/Non Drug Allergy documented on EMR Reaction Allergy Type Onset Date Status prednisone predniSONE Intensol shortness of breath Drug Al lergy ActivePenicillinshortness of breath,swellingDrug AllergyActive REASON FOR VISIT 1y COPD Medications Medication SIG (Take, Route, Frequency, Duration) Notes Start Date End Date Status Spironolactone 50 MG 1 tablet Orally Once a day ActivetiZANidine HCl 4 MG1 tablet as needed Orally Three times a dayActive Vitamin D3 125 MCG (5000 UT)as directed OrallyActiveAlbuterol Sulfate HFA 108 (90 Base) MCG/ACT2 puffs as needed Inhalation every 4 hrsActiveSimvastatin 40 MG 1 tablet in the evening Orally Once a dayActiveOmeprazole 40 MG1 capsule 30 minutes before morning meal Orally Once a dayActivePrazosin HCl 2 MG1 capsule at bedtime Orally Once a dayActivePregabalin 100 MG1 capsule Orally Once a day ActivePropranolol HCl 40 MG1 tablet Orally Once a dayActiveQUEtiapine Fumarate 400 MG1 tablet at bedtime Orally Once a dayActiveBreztri Aerosphere 160/9/4.8 mcg2 puffs inhalation BID; Duration: 30 daysRinse after use07/16/2022ctive lamoTRIgine 200 MG1 tablet Orally Once a dayActivelamoTRIgine 100 MG1 tablet Orally Once a dayActiveMeloxicam 15 MG1 tablet Orally Once a dayActive Amitriptyline HCl 100 MG1 tablet at bedtime Orally Once a dayActive Social History Tobacco Use: Social History Observation Description Date Details (start date - stop date) Current Smoker NA - NA Tobacco Use/Smoking Question Answer Notes Patient is a current smoker How often do you smoke cigarettes?every dayAre you interested in quitting?Ready to quitAdditional Findings: Tobacco UserHeavy cigarette smoker (20-39 cigs/day) Tobacco Control (Standard) Question Answer Notes Tobacco use: Current smoker How often do you smoke cigarettes?Every dayHow many cigarettes a day do you smoke?21-Additional Findings: Tobacco userHeavy cigarette smoker (20-39 cigs/day) Encounters Encounter Location Date Provider Diagnosis Pulmonary Medicine [address] [id number] 06/15/2023 [facility] Moarlez Plan Of Treatment No Information Procedure Notes * CategorySub-CategoryDetailNotesPFTData:05/29/2022-FEV1/FVC: 83%-FEV1: 71%-FVC: 66%-Bronchodilator response: Paradoxical-RV: 98%-T%-DLCO: 41%-Flow-volume loop: Moderate restrictionAlpha-1 AntitrypsinScreening Date: 06/25/2022enotype:MM Progress Notes * ZARINAGertrudis IDOB:[birth year] (59 yo F)Acc No.[id number]:06/15/2023 UNLOCKED PROGRESS NOTE Follow Up Patient: Gertrudis BAH I :?Jackson Moralez DODOB:1965???Age:57 Y ???Sex:FemaleDate:4Phone:[phone]:[address] [place], [place] [id number]:Jaymie Phoenix, MEREDITH Subjective: * Chief Complaints: * 1 . 1y COPD. 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 * Surgical History: c esarean section , hysterectomy, laparoscopically assisted , tubal ligation . * Hospitalization/Major Diagno stic Procedure: D enies Past Hospitalization. * Family History: N on-Contributory. Patient is Adopted. * Social History: ???Tobacco Use:?Tobacco Use/Smoking?Patient is a?current smoker ?How often do you smoke cigarettes??every day ?Are you interested in quitting??Ready to quit ?Additional Findings: Tobacco User?Heavy cigarette smoker (20-39 cigs/day) ?LM: Additional Tobacco Questions?Number of Years Pt Smoked:?42 ?Number of Packs per Day:?1 ?Tobacco Control (Standard)?Tobacco use:?Current smoker ?How often do you smoke cigarettes??Every day ?How many cigarettes a day do you smoke??21-30 ?Additional Findings: Tobacco user?Heavy cigarette smoker (20-39 cigs/day) ???Miscellaneous:?Caffeine: more than 4 cups per day. ?Occupation?Occupation:?Unemployed Disabled-Healthcare ?Pets: dog. ???Drugs/Alcohol:?Drugs?Have you used drugs other than those for medical reasons in the past 12 months??No ?Does the Patient have a History of Drug Abusein the Past??No ?Caffeine?Intake:?more than 4 cups per day Soda ?Do you drink alcohol?: Yes, Socially. ?Do you smoke marijuana?: Denies. * Medications: T aking Albuterol Sulfate HFA 108 (90 Base) MCG/ACT Aerosol Solution 2 puffs as needed Inhalation every 4 hrs , Taking Amitriptyline HCl 100 MG Tablet 1 tablet at bedtime Orally Once a day , Taking Breztri Aerosphere(Wjrygde-Sdwdmucdhwi-Cbzoleoqsi) 160/9/4.8 mcg aerosol 2 puffs inhalation BID , Notes to Pharmacist: Rinse after use, Taking lamoTRIgine 200 MG Tablet 1 tablet Orally Once a day , Taking lamoTRIgine 100 MG Tablet 1 tablet Orally Once a day , Taking Meloxicam 15 MG Tablet 1 tablet Orally Once a day , Taking Omeprazole 40 MG Capsule Delayed Release 1 capsule 30 minutes before morning meal Orally Once a day , Taking Prazosin HCl 2 MG Capsule 1 capsule at bedtime Orally Once a day , Taking Pregabalin 100 MG Capsule 1 capsule Orally Once a day , Taking Propranolol HCl 40 MG Tablet 1 tablet Orally Once a day , Taking QUEtiapine Fumarate 400 MG Tablet 1 tablet at bedtime Orally Once a day , Taking Simvastatin 40 MG Tablet 1 tablet in the evening Orally Once a day , Taking Spironolactone 50 MG Tablet 1 tablet Orally Once a day , Taking tiZANidine HCl 4 MG Tablet 1 tablet as needed Orally Three times a day , Taking Vitamin D3 125 MCG (5000 UT) Tablet as directed Orally * Allergies: p redniSONE Intensol: shortness of breath - Allergy, Penicillin: shortness of breath,swelling - Allergy. Objective: * Vitals: Assessment: Plan: * Treatment: * Procedures: ???Alpha-1 Antitrypsin:?Screening Date:?06/25/2022.?Genotype:?MM.?PFT:?Data:?05/29/2022 ?-FEV1/FVC: 83% ?-FEV1: 71% ?-FVC: 66% ?-Bronchodilator response: Paradoxical ?-RV: 98% ?-T% ?-DLCO: 41% ?-Flow-volume loop: Moderate restriction ?.? * Preventive Medicine: ??COVID Vaccination:?Has patient had COVID Vaccination?COVID Vaccination?Yes 06/14/2020 ??Immunization Status:?Pneumovacc?Pt Refused.?Influenza?Pt Refused.? ??Screenings/Counseling:?FALL RISK SCREENING?Fall Risk Assessment:?No falls in the past year ?Are you afraid of falling??Yes ?TOBACCO ACTION PLAN?Patient counselled on the dangers of tobacco use and urged to quit.? 07/16/2022 ?Cessation counseling provided?07/16/2022 ?FLU EXCLUSION?Reason:?Patient Reason ?Type of Patient Reason:?Drug declined by patient ?BMI ACTION PLAN?Above Normal BMI Follow-up?Dietary management education, guidance, and counseling * * Electronic signature of Jackson Moralez DO on 12/11/2024 at 06:48 AM ESTSign off status: PendingVisit Status:?N/S N/C (No Show/No Charge) * Provider: Osorio Moralez DO Date: 0 06/15/2023 Generated for Printing/Faxing/eTransmitting on:?12/11/2024 06:48 AM EST
--- OUTSIDE RECORDS SUMMARY | 2024-02-16 03:30 | XMS_ITS ---
Author Organization [facility] in [place] Address [address] [place] [address] Care Team Providers Care Shaker Out Name Role Phone Jaymie Phoenix CNP Primary Care Provider Unavail able Jackson Moralez Unavailable [phone] Allergies Allergen (clinical drug ingredient) Drug/Non Drug [...] Encounter Location Date Provider Diagnosis Pulmonary Medicine [address] [address] 02/16/2024 Jackson Moralez Plan Of Treatment No Information Procedure Notes * CategorySub-CategoryDetailNotesPFTData:05/29/2022-FEV1/FVC: 83%-FEV1: 71%-FVC: 66%-Bronchodilator response: Paradoxical-RV: 98%-T%-DLCO: 41%-Flow-volume loop: Moderate restrictionAlpha-1 AntitrypsinScreening Date: 06/25/2022enotype:MM Progress Notes * Gertrudis SRINIVASAN IDOB:[birth year] (59 yo F)Acc No.[id number]:02/16/2024 UNLOCKED PROGRESS NOTE Progress Note Patient: Gertrudis BAH I :?Jackson Moralez, DODOB:1965???Age:58 Y ???Sex:FemaleDate:02/16/2024Phone:[phone]:[address] [place], [place] [phone]:Jaymie Phoenix CNP Subjective: * Chief Complaints: * 1 . COPD/Pneumonia [facility] F/U. * HPI: ???General:?Patient is being seen after a follow up after a recent hospitalization on 12/24/2023 at [facility] for Acute Exacerbation of COPD. Patient [...] dependence with nicotine-induced disorder, History of COVID-19, alf (current) use of inhaled steroids, Abnormal diffusion [...] Orally Once a day , Taking Breztri Aerosphere(Nvegvzp-Foxsndqluva-Sdcqylqstg) 160/9/4.8 mcg aerosol 2 puffs inhalation BID [...] Tablet as directed Orally , Discontinued Breztri Aerosphere(Wjhvucy-Qmrcxuvzicw-Jclecxfhus) 160/9/4.8 mcg aerosol 2 puffs inhalation BID [...] DO Date: 0 02/16/2024 Generated for Printing/Faxing/eTransmitting on:?12/11/2024 06:48 AM EST History and Physical Notes * HPI (History of Present Illness) CategorySub-CategoryDetailNotesCategory NotesGeneralPatient is being seen after a follow up after a recent hospitalization on 12/24/2023 at [facility] for Acute Exacerbation of COPD. Patient has not been seen since 07/16/2022 in our office. Patient did not show her her last appointment with our office on 06/15/2023.
--- OUTSIDE RECORDS SUMMARY | 2024-12-11 06:48 | XMS_ITS | Encounter Summary ---
Author Organization [facility] Address [address] [place] [address] Care Team Providers Care Computer Systems Information Director Name Role Phone Jaymie Phoenix SENIOUR INSIGHT MANAGER Unavailable [phone] Rohan Rodríguez MD Primary Care Provider [phone] Rohan Rodríguez MD Primary Care Provider [phone] Jaymie Phoenix SENIOUR INSIGHT MANAGER Unavailable [phone] Encounter Details DateTypeDepartmentCare Team (Latest Contact Info)Degawgpjdzf55/25/2024Clinisync Result Encounter [facility] Unsolicited Jaymie Phoenix NP [address] [place] [id number] Social History Tobacco UseTypesPacks/DayYears UsedDateSmoking Tobacco: Every AusFcwtthitus311 Smokeless Tobacco: Never Comments:11-20 cigarettes/da y Alcohol UseStandard Drinks/WeekCommentsNot Currently0 (1 standard drink [...] relatives?Twice a week05/13/2023How often do you attend tenriism or mu-ism services?Never05/13/2023o you belong to any clubs or organizations such as tenriism groups, unions, fraUniSmart or athletic groups, or school groups?No 05/13/2023How often do you attend meetings of the clubs or organizations you belong to?Never05/13/2023re you , , , , never , or living with a partner?Ioppiwt4405/13/2023UDIT-CAnswerDate RecordedQ1: How often do you have a [...] care, and heating?Somewhat hard05/13/2023HQ-2AnswerDate RecordedPatient Health Questionnaire-2 Obdcs788[facility] [place] [facility] - Occupational Stress QuestionnaireAnswerDate RecordedDo you feel stress - tense, restless, nervous, or anxious, or unable to sleep at night because your mind is troubled all the time - these days?Only a khgxab8305/13/2023Exercise Vital SignAnswerDate RecordedOn average, how many days [...] sleep or slept in ashelter (including now)?No 05/13/2023CommentsUnknownSex and Gender InformationValueDate RecordedSex Assigned at BirthNot on fileLegal LvcEunrio37/15/2023 7:27 PM EDTGender Identity Not on fileSexual OrientationNot on filedocumented as of this encounter Functional Status * AUDIT-C ScoreAnswerDate of EytqotvwgzGnjdie024/25/2024 3:03 PM Clarisa Gupta MA * QuestionAnswerDate of AssessmentAuthorQ1: How often do you have a drink containing alcohol?Monthly or less06/03/2023 3:03 PM Clarisa Gupta MA Q2: How many drinks containing alcohol do you have on a typical day when you are drinking?1 or 3:03 PM Clarisa Gupta MAQ3: How often do you have six or more drinks on one occasion?Never06/03/2023 3:03 PM Clarisa Zarco MA * Over the past 2 weeks, how often have you been bothered by any of the following problems?QuestionAnswerDate of AssessmentAuthorLittle interest or pleasure in doing thingsSeveral days07/31/2024 10:22 AM EDTHumbarger, Clarisa, MAFeeling down, depressed, or hopelessNot at all07/31/2024 10:22 AM Clarisa Zarco MAPatient Health Questionnaire-2 Leqlm141 10:22 AM Clarisa Gupta MA * QuestionAnswerDate of AssessmentAuthorTrouble falling or staying asleep, or sleeping too muchNot at all07/31/2024 10:22 AM Clarisa Gupta MA Feeling tired or having little energyNot at all07/31/2024 10:22 AM HANYT Clarisa Varma MAPoor appetite or overeatingNot at all07/31/2024 10:22 AM Clarisa Gupta MAFeeling bad about yourself - or that you are a failure or have let yourself or your family downNot at all07/31/2024 10:22 AM Clarisa Gupta MATrouble concentrating on things, such as reading the newspaper or watching televisionSeveral days07/31/2024 10:22 AM Clarisa Gupta MAMoving or speaking so slowly that other people could have noticed? Or the opposite - being so fidgety or restless that you have been moving around a lot more than usual.Not at all07/31/2024 10:22 AM Clarisa Gupta MAThoughts that you would be better off or hurting yourself in some wayNot at all07/31/2024 10:22 AM Clarisa Gupta MAPatient Health Questionnaire-9 Ugsnm324 10:22 AM Clarisa Gupta MA * If you checked off any problems on this questionnaire so far,QuestionAnswer Date of AssessmentAuthorHow difficult have these problems made it for you to do your work, take care of things at home, or get along with other people?Not difficult at all07/31/2024 10:22 AM Clarisa Gupta MA documented as of this encounter Plan of Treatment Not on file documented as of this encounter Procedures Procedure NamePriorityDate/TimeAssociated DiagnosisCommentsCT ABDOMEN PELVIS W CON05/03/2023 8:56 AM EDT documented in this encounter Results * CT ABDOMEN PELVIS W CON (05/03/2023 8:56 AM EDT)Anatomical RegionLaterality ModalityOtherSpecimen (Source)Anatomical Location / LateralityCollection Method / VolumeCollection TimeReceived Time05/03/2023 8:56 AM EDT Narrative 05/03/2023 8:58 AM EDT [facility] ?[address] ? [place] [address] ? CT Scan Report ? Signed ? Patient: FRANKY SRINIVASAN ?MR#: [id number] ?? : 1965 ?Acct:[id number] ?? Age/Sex: 57 / F ?ADM Date: 04/30/23 ?? Loc: CT ? Attending Dr: Jaymie Phoenix NP ? Ordering Physician: Jaymie Phoenix NP ?? Date of Service: 04/30/23 ?? Procedure(s): CT abdomen pelvis w con ?? Accession Number(s): [id number] ? cc: Jaymie Phoenix NP ? [facility] ? [address] ? [place] [address] ? Patient Name: ?? FRANKY SRINIVASAN ? MRN: [facility]:[id number] ? date: 1965 ?Sex: F ?? Assigned Patient Location: CT ?? Current Patient Location: ? Accession/Order Number: [id number] ?? Exam Date: 04/30/2023 ??12:55 ?Report Date: 05/03/2023 ??08:56 ? At the request of: ?? JAYMIE PHOENIX ? Procedure: ??CT abdomen pelvis w con ? EXAMINATION: CT abdomen pelvis w con ? HISTORY: Bilateral Lower Extremity Edema R60.0 ? COMPARISON: 03/26/2023 CT chest, 07/25/2019 CT abdomen pelvis ? TECHNIQUE: CT images were created with IV contrast. Axial, Coronal, and ?? Sagittal images. Dose reduction techniques were achieved by using automated ?? exposure control and/or adjustment of mA and/or kV according to patient size ?? and/or use of iterative reconstruction technique. ? FINDINGS: ?? LUNG BASES: No visible pulmonary or pleural disease. ?? LIVER: No enlargement, atrophy, abnormal density, or significant focal lesion. ?? BILIARY: No visible dilatation or calcification. ?? PANCREAS: No lesion, fluid collection, ductal dilatation, or atrophy. ?? SPLEEN: No enlargement or focal lesion. ?? ADRENALS: No mass or enlargement. ?? KIDNEYS: No mass, obstruction, or calcification. ?? BOWEL/MESENTERY: No visible mass, obstruction, or bowel wall thickening. ?? AORTA/VASCULAR: No aneurysm or dissection. ?? RETROPERITONEUM: No mass or adenopathy. ?? LYMPH NODES: Increased number of normal-sized lymph nodes ?? URINARY BLADDER: No visible focal wall thickening, lesion, or calculus. ?? PELVIC ORGANS: Hysterectomy ?? ABDOMINAL WALL: No mass or hernia. ?? BONES: No bony lesion or fracture. ?? OTHER: Negative. ? CT/CT abdomen pelvis w con ?? IMPRESSION: ? No acute intraperitoneal abnormality ? No central venous obstruction observed ? Electronically authenticated by: NADINE ??JUANITA ?? Date: 05/03/2023 ??08:56 ? Dictated By: ?Nadine Grant M.D. ? Signed By: ?05/03/23 0858 ? DD/ 0856 ? TD/TT: ? Aircraft Structural Repairer: Procedure Note Radiology, Radiologist, MD - 05/03/[address] [place] [id number] Scan Report Signed Patient: FRANKY SRINIVASANMR#: [id number] : 1965Acct:[id number] Age/Sex: 57 / FADM Date: 04/30/23 Loc: CT Attending Dr: Jaymie Phoenix NP Ordering Physician: Jaymei Phoenix NP Date of Service: 04/30/23 Procedure(s): CT abdomen pelvis w con Accession Number(s): [id number] cc: Jaymie Phoenix NP The [address] [address] Patient Name: FRANKY SRINIVASAN MRN: [facility]:[id number] date: 1965 Sex: F Assigned Patient Location: CT Current Patient Location: Accession/Order Number: [id number] Exam Date: 04/30/2023 12:55 Report Date: 05/03/2023 08:56 At the request of: JAYMIE J AICHHOLZ Procedure: CT abdomen pelvis w con EXAMINATION: [...] M.D. Signed By:05/03/23 0858 DD/ 0856 TD/TT: Aircraft Structural Repairer: Authorizing ProviderResult TypeResult StatusLisa Phoenix NPCLINISYNC IMAGING Final Result documented in this encounter Visit Diagnoses Not on filedocumented in this encounter Care Teams Team MemberRelationshipSpecialtyStart DateEnd Date Rohan Rodríguez MD PCP - GeneralFamily Medicine Rohan Rodríguez MD PCP - GeneralFamily Medicine05/13/23 Jaymie Phoenix NP Nurse PractitionerFamily Auolmljc81/19/23 Jaymie Phoenix NP Nurse PractitionerFami Medicine05/13/23documented as of this encounter
--- OUTSIDE RECORDS SUMMARY | 2024-12-11 06:48 | XMS_ITS | Patient Health Record ---
Author Organization [facility] [place] Address [address] [place] [address] Care Team Providers Care Field Training Agent Name Role Phone Jaymie Phoenix CNP Primary Care Provider Unavail able Jackson Moralez [phone] Allergies Allergen (clinical drug ingredient) Drug/Non Drug Allergy documented on EMR Reaction Allergy Type Onset Date Status prednisone predniSONE Intensol shortness of breath Drug Al lergy ActivePenicillinshortness of breath,swellingDrug AllergyActive Reason For Referral No Information Medications Medication SIG (Take, Route, Frequency, Duration) Notes Start Date End Date Status Breztri Aerosphere 160/9/4.8 mcg 2 puffs inhalation BID; Duration: 30 days Rinse after use 07/16/2022 ActivePropranolol HCl 40 MG1 tablet Orally Once a dayActivePregabalin 100 MG1 capsule Orally Once a dayActiveAlbuterol Sulfate HFA 108 (90 Base) MCG/ACT2 puffs as needed Inhalation every 4 hrsActiveMeloxicam 15 MG1 tablet Orally Once a dayActivelamoTRIgine 100 MG1 tablet Orally Once a dayActivePrazosin HCl 2 MG1 capsule at bedtime Orally Once a dayActiveOmeprazole 40 MG1 capsule 30 minutes before morning meal Orally Once a dayActiveSpironolactone 50 MG1 tablet Orally Once a dayActiveAmitriptyline HCl 100 MG1 tablet at bedtime Orally Once a day ActiveSimvastatin 40 MG1 tablet in the evening Orally Once a dayActive lamoTRIgine 200 MG1 tablet Orally Once a dayActiveVitamin D3 125 MCG (5000 UT)as directed OrallyActivetiZANidine HCl 4 MG1 tablet as needed Orally Three times a dayActiveQUEtiapine Fumarate 400 MG1 tablet at bedtime Orally Once a dayActive Immunizations Vaccine Route Administration Date Status Comme nts SARS-COV-2 (COVID 19 Kelly 0.5mL) Juan and Juan Unknown 06/14/2020 Administered Social History Tobacco Use: Social History Observation Description Date Details (start date - stop date) Current Smoker NA - NA Tobacco Control (Standard) Question Answer Notes Tobacco use: Current every day smoker Additional Findings: Tobacco userHeavy cigarette smoker (20-39 cigs/day) Problems Problem Type SNOMED Code ICD Code Onset Dates Problem Status W/U Status Risk Notes Problem Long-term current us e of inhaled steroid (281868015) alf (current) use of inhaled steroids (Z79.51) ActiveconfirmedProblemChest pain (06177234)Chest pain (R07.9)Activeconfirmed ProblemChronic obstructive pulmonary disease (96608984)Chronic obstructive pulmonary disease (J44.9)ActiveconfirmedProblemAnxiety (24785465)Anxiety (F41.9) ActiveconfirmedProblemDyspnea (011034051)Dyspnea (R06.00)ActiveconfirmedProblem Obstructive sleep apnea (29365105)Obstructive sleep apnea (G47.33)Active confirmedPSG 08/08/2013: AHI 27ProblemMental disorder caused by drug (675391604) Cigarette nicotine dependence with nicotine-induced disorder (F17.219)Active confirmedProblemGastroesophageal reflux disease (002048940)Gastroesophageal reflux disease (K21.9)ActiveconfirmedProblemAcute exacerbation of chronic obstructive airways disease (509887371)Acute exacerbation of chronic obstructive airways disease (J44.1)ActiveconfirmedProblemCarbon monoxide exposure (20887630) Carbon monoxide exposure (Z77.29)ActiveconfirmedProblemAbnormal diffusion capacity determined by pulmonary function test (R94.2)ActiveconfirmedProblem Chronic ulcer of foot (114905605)Non-pressure chronic 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 (L97.412)ActiveconfirmedProblemHistory of COVID- 19 (870977774706263115)History of COVID-19 (Z86.16)Activeconfirmed03/10/2022 Encounters Encounter Location Date Provider Diagnosis Pulmonary Medicine [place] [address] [place] [address] 12/28/2023 [facility] Pulmonary Medicine [id number] [place] [address]/08/2025 Jackson Moralez Plan Of Treatment No Information Insurance Providers Payer Name Payer Address Payer Phone Subscriber Number Group Number Insured Name Patient Relationship to Insured Coverage Start Date Coverage End Date [employer] MED[employer]ARE [address] [place], [place] [id number] Lily Gagnon - patient is the insured Medical (General) History Medical History History ICD Code Chronic obstructive pulmonary disease J4 4.9 Obstructive sleep apnea G47.33 Essential Hypertension I10 Gastroesophageal reflux disease K21.9 LGSIL Pap smear of vagina R87.622 Osteopenia M85.80 Colon polyps K63.5 Vitamin B12 deficiency E53.8 Vitamin D deficiency E55.9 Hyperlipidemia E78.5 Migraines G43.909 Cigarette nicotine dependence with nicot ine-induced disorder F17.219 History of COVID-19 Z86.16 alf (current) use of inhaled stero ids Z79.51 Abnormal diffusion capacity determined b y pulmonary function test R94.2 Carbon monoxide exposure Z77.29 Surgical History Surgery Date(Month/Year) section hysterectomy, laparoscopically assistedtubal ligationHospitalization History Reason Date(Month/Year) COPD [facility] 12/24/2023
--- OUTSIDE RECORDS SUMMARY | 2024-12-11 06:48 | XMS_ITS | Encounter Summary ---
Author Organization [facility] Address [address] [place] [address] Care Team Providers Care Rv Repair Technician Name Role Phone Jaymie Phoenix PORTABLE TRACKMAN Unavailable [phone] Shaikh PERRY Marquez Primary Care Provider [phone] Rohan Rodríguez MD Primary Care Provider [phone] Rohan Rodríguez MD Primary Care Provider [phone] Jaymie Phoenix PORTABLE TRACKMAN Unavailable [phone] Encounter Details DateTypeDepartmentCare Team (Latest Contact Info)Upsrqzqgwdh20/14/2024Clinisync Result Encounter [facility] External Department Unsolicited Provider, Generic External Data Social History Tobacco UseTypesPacks/DayYears UsedDateSmoking Tobacco: Every ChoXyrtpefpot121 Smokeless Tobacco: Never Comments:11-20 cigarettes/da y Alcohol [...] otherwise physically hurt by your partner or ex-partner?06/03/2023Within the last year, have you been raped or forced to have any kind of sexual activity by your part ner or ex-partner?No06/03/2023Social Connection and Isolation PanelAnswerDate RecordedIn a typical week, how many times do you talk on the phone with family, friends, or neighbors?Twice a week05/13/2023How often do you get together with friends or relatives?Twice a week05/13/2023How often do you attend rastafarian or yarsani services?Never05/13/2023o you belong to any clubs or organizations such as rastafarian groups, unions, fraternal or athletic groups, or school groups?No 05/13/2023How often do you attend meetings of the clubs or organizations you belong to?Never05/13/2023re you , , , , never , or living with a partner?Wethvgv9705/13/2023UDIT-CAnswerDate RecordedQ1: How often do you have a [...] care, and heating?Somewhat hard05/13/2023HQ-2AnswerDate RecordedPatient Health Questionnaire-2 Juxfi418[facility] [place] of Occupational Health - Occupational Stress QuestionnaireAnswerDate RecordedDo you feel stress - tense, restless, nervous, or anxious, or unable to sleep at night because your mind is troubled all the time - these days?Only a vopvvm2905/13/2023Exercise Vital SignAnswerDate RecordedOn average, how many days [...] you didn't have money to get more.Often true4PRAPARE - TransportationAnswerDate RecordedIn the past 12 months, [...] InformationValueDate RecordedSex Assigned at BirthNot on fileLegal YipSgtpuj24/15/2023 7:27 PM EDTGender Identity Not on fileSexual OrientationNot on filedocumented as of this encounter Functional Status * AUDIT-C ScoreAnswerDate of KesfswrlevQrtmzy436/25/2024 3:03 PM Clarisa Gupta MA * QuestionAnswerDate [...] pleasure in doing thingsSeveral days07/31/2024 10:22 AM Clarisa Gupta MAFeeling down, depressed, or hopelessNot at all07/31/2024 10:22 AM EDT Clarisa Varma MAPatient Health Questionnaire-2 Pobur276 10:22 AM Clarisa Gupta MA * QuestionAnswerDate of AssessmentAuthorTrouble falling or staying asleep, or sleeping too muchNot at all07/31/2024 10:22 AM Clarisa Gupta MA Feeling tired or having little energyNot at all07/31/2024 10:22 AM EDT Clarisa Varma MAPoor appetite or overeatingNot at all07/31/2024 10:22 AM Clarisa Gupta, MAFeeling bad about yourself - or that you are a failure or have let yourself or your family downNot at all07/31/2024 10:22 AM Clarisa Gupta MATrouble concentrating on things, such as reading the newspaper or watching televisionSeveral days07/31/2024 10:22 AM Clarisa Gupta, MAMoving or speaking so slowly that other people could have noticed? Or the opposite - being so fidgety or restless that you have been moving around a lot more than usual.Not at all07/31/2024 10:22 AM Clarisa Gupta MAThoughts that you would be better off or hurting yourself in some wayNot at all07/31/2024 10:22 AM Clarisa Gupta MAPatient Health Questionnaire-9 Niozj512 10:22 AM Clarisa Gupta MA * If [...] as of this encounter Procedures Procedure NamePriorityDate/TimeAssociated DiagnosisComments FACILITY EST YKCSZJBZHMNYB59/14/2024 2:48 PM EDT documented in this encounter Results * [facility] FACILITY EST COMPREHENSIVE (04/22/2023 2:48 PM EDT)Anatomical Region LateralityModalityOtherSpecimen (Source)Anatomical Location / Laterality Collection Method / VolumeCollection TimeReceived Time04/22/2023 2:48 PM EDT Narrative 04/22/2023 2:[address] [facility] ?[address] ? [place] [address] ?Vein Report ? Signed ? Patient: FRANKY SRINIVASAN ?MR#: [id number] ?? : 1965 ?Acct:[id number] ?? Age/Sex: 57 / F ?ADM Date: 04/22/23 ?? Loc: [facility] ? Attending Dr: Nadine Grant M.D. ? Ordering Physician: Nadine Grant M.D. ?? Date of Service: 04/22/23 ?? Procedure(s): Facility EST Comprehensive ?? Accession Number(s): [id number] ? cc: Jaymie Phoenix NP; Nadine Grant M.D. ? Patient Name: ? FRANKY SRINIVASAN ? MR#: [id number] ? : 1965 ? Exam Date: 04/22/2023 ?? Ordering Doctor: DR NADINE GRANT M.D. ? RADIOLOGY REPORT ? PROCEDURE: ? [facility] FACILITY EST COMPREHENSIVE ? VEIN CENTER - OFFICE VISIT INITIAL ? COMPARISON: None. ? PROGRESS NOTES: ? [age] year old female who presents with a 4 month history of ?? moderate-marked bilateral lower extremity edema, dilated discolored veins, ?? lower extremity pain and throbbing. The patient's leg symptoms are symmetric ?? bilaterally. ??There has been a progression of symptoms over time. This ?? increases with prolonged leg dependency. The patient describes an improvement ?? with rest, elevation, compression stockings. The patient denies any signs and ?? symptoms to suggest arterial ischemia. ? The patient describes a family history : ??Unknown (patient is adopted). The ?? patient has drinking and smoking history of : ??Occasional alcohol consumption. ?? One pack per day cigarette smoker. Patient has a past medical history ?? significant for multiple various noncontributory findings. ??The patient denies ?? a history of deep venous thrombus or pulmonary embolus. ? See separate history and physical for medication list. ??No prior treatment for ?? varicose or spider veins. ??Current use of compression stockings. ? After review of nurse notes, history and physical exam I discussed at length ?? the pathophysiology of venous hypertension and possible treatments, therapies ?? and strategies available. We discussed at length the importance of elevating ?? the lower extremities above the level of the heart, increased physical ?? activity and compression stocking use. ? Ultrasound venous reflux study performed today was discussed at length with ?? the patient. The report demonstrates abnormally dilated and incompetent ?? anterior accessory saphenous veins bilaterally with associated dilated branch ?? saphenous varicosities. ? PHYSICAL EXAM: ? The right leg demonstrates a few varicosities, a few scattered spider veins, ?? no ulceration, moderate-marked edema, ??mild skin discoloration. ? The left leg demonstrates a few varicosities, a few scattered spider veins, no ?? ulceration, moderate-marked edema, ??mild skin discoloration. ? Both thighs, legs and feet were symmetrically warm to the touch. Good ?? posterior tibial and dorsalis pedis pulses were present bilaterally. ? VEIN/VC Facility EST Comprehensive ?? IMPRESSION: ? 1. ??Bilateral lower extremity venous insufficiency ?? 2. ??Bilateral lower extremity varicose veins ?? 3. ??Moderate-marked bilateral lower extremity subcutaneous edema ?? 4. No ??flow significant arterial disease ?? 5. CEAP: ??C3, AP, , [place] ? PLAN: ?? 1. Continued use of compression stockings ?? 2. Elevated legs and increased physical activity symptomatic relief ?? 3. Endovenous laser ablation of bilateral anterior accessory saphenous veins. ?? 4. Microfoam chemical ablation of incompetent branch saphenous varicosities. ?? 5. Referral to lymphedema clinic for evaluation. ? Nurse notes, history and physical were reviewed and confirmed, see attached ?? forms. ?? The nurse was present throughout the physical exam and consultation ? Dictated by: Gurwinder Day M.D. on 04/22/2023 at 14:40 ? Approved by: Gurwinder Day M.D. on 04/22/2023 at 14:48 ? Dictated By: ?Gurwinder Day M.D. ? Signed By: ?04/22/23 1449 ? DD/ 1448 ? TD/TT: ? Iron Cutter: Procedure Note Radiology, Radiologist, MD - 04/22/[address] [address] Vein Report Signed Patient: FRANKY SRINIVASANMR#: [id number] : 1965Acct:[id number] Age/Sex: 57 / FADM Date: 04/22/23 Loc: Attending Dr: Nadine Grant M.D. Ordering Physician: Nadine Grant M.D. Date of Service: 04/22/23 Procedure(s): [facility] Comprehensive Accession Number(s): [id number] cc: Jaymie Phoenix NP; Nadine Grant M.D. Patient Name: FRANKY SRINIVASAN MR#: [id number] : 1965 Exam Date: 04/22/2023 Ordering Doctor: DR NADINE GRANT M.D. RADIOLOGY REPORT PROCEDURE: [facility] COMPREHENSIVE VEIN CENTER - OFFICE VISIT [...] arterial disease 5. CEAP: C3, AP, , [place] PLAN: 1. Continued use of compression stockings [...] M.D. Signed By:04/22/23 1449 DD/ 1448 TD/TT: Iron Cutter: Authorizing ProviderResult TypeResult StatusGeneric External Data Provider CLINIS[facility]NC IMAGINGFinal Result documented in this encounter Visit Diagnoses Not on filedocumented in this encounter Care Teams Team MemberRelationshipSpecialtyStart DateEnd Date Shaikh Marquez MD PCP - GeneralInternal Medicine Rohan Rodríguez MD PCP - GeneralFamily Medicine05/02// Rohan Rodríguez MD PCP - GeneralFamily Medicine05/13/23 Jaymie Phoenix NP Nurse PractitionerFamily Wnafqukx27/19/23 Jaymie Phoenix NP [facility]er[facility] Medicine05/13/23documented as of this encounter
--- OUTSIDE RECORDS SUMMARY | 2024-12-11 06:48 | XMS_ITS | Encounter Summary ---
Author Organization [facility] Address [address] [place] [address] Care Team Providers Care Life Skills Educator Name Role Phone Jaymie Phoenix MILLINERY BLOCKER Unavailable [phone] Shaikh PERRY Marquez Primary Care Provider [phone] Rohan Rodríguez MD Primary Care Provider [phone] Rohan Rodríguez MD Primary Care Provider [phone] Jaymie Phoenix MILLINERY BLOCKER Unavailable [phone] Encounter Details DateTypeDepartmentCare Team (Latest Contact Info)Hxqidzuaodt13/15/2024Clinisync Result Encounter [facility] External Department Unsolicited Jaymie Phoenix NP [address] [place] [address] Social History Tobacco UseTypesPacks/DayYears UsedDateSmoking Tobacco: Every ClyNzjyxtgjho320 Smokeless Tobacco: Never Comments:11-20 cigarettes/da y Alcohol [...] sexual activity by your part ner or ex-partner?06/03/2023Social Connection and Isolation PanelAnswerDate RecordedIn a typical week, how many times do you talk on the phone with family, friends, or neighbors?Twice a week05/13/2023How often do you get together with friends or relatives?Twice a week05/13/2023How often do you attend baptism or christian services?Never05/13/2023o you belong to any clubs or organizations such as baptism groups, unions, fraternal or athletic groups, or school groups?No 05/13/2023How often do you attend meetings of the clubs or organizations you belong to?Never05/13/2023re you , , , , never , or living with a partner?Mrdiavb5505/13/2023UDIT-CAnswerDate RecordedQ1: How often do you have a [...] care, and heating?Somewhat hard05/13/2023HQ-2AnswerDate RecordedPatient Health Questionnaire-2 Qijnk857F[facility] [place] of Occupational Health - Occupational Stress QuestionnaireAnswerDate RecordedDo you feel stress - tense, restless, nervous, or anxious, or unable to sleep at night because your mind is troubled all the time - these days?Only a bqjgdt0705/13/2023Exercise Vital SignAnswerDate RecordedOn average, how many days [...] InformationValueDate RecordedSex Assigned at BirthNot on fileLegal KobJfzlor56/15/2023 7:27 PM EDTGender Identity Not on fileSexual OrientationNot on filedocumented as of this encounter Functional Status * AUDIT-C ScoreAnswerDate of NidkddholnTdkqoa630/25/2024 3:03 PM Clarisa Gupta MA * QuestionAnswerDate of AssessmentAuthorQ1: How often do you have a drink containing alcohol?Monthly or less06/03/2023 3:03 PM Clarisa Gupta MA Q2: How many drinks containing alcohol do you have on a typical day when you are drinking?1 or 3:03 PM Clarisa Gupta MAQ3: How often do you have six or more drinks on one occasion?Never06/03/2023 3:03 PM EDT Clarisa Varma MA * Over the past 2 weeks, how often have you been bothered by any of the following problems?QuestionAnswerDate of AssessmentAuthorLittle interest or pleasure in doing thingsSeveral days06/ 10:22 AM Clarisa Gupta MAFeeling down, depressed, or hopelessNot at all07/31/2024 10:22 AM Clarisa Zarco MAPatient Health Questionnaire-2 Muasd616 10:22 AM Clarisa Gupta MA * QuestionAnswerDate of AssessmentAuthorTrouble falling or staying asleep, or sleeping too muchNot at all07/31/2024 10:22 AM Clarisa Gupta MA Feeling tired or having little energyNot at all07/31/2024 10:22 AM Clarisa Zarco MAPoor appetite or overeatingNot at all07/31/2024 10:22 [...] 10:22 AM Clarisa Gupta MAPatient Health Questionnaire-9 Jskzc323 10:22 AM Clarisa Gupta MA * If [...] as of this encounter Procedures Procedure NamePriorityDate/TimeAssociated DiagnosisCommentsVASC US LOWER EXTREMITY VENOUS DUPLEX RIGHT03/25/2023 3:24 PM EST [facility] D-IFZARDqfjtse97/15/2024 3:12 PM EST [facility] CMP (CMP) (FOR REMOTE [facility] USE)Tdiiipe2503/25/2023 3:12 PM EST documented in this encounter Results * Vascular US lower extremity venous duplex right (03/25/2023 3:24 PM EST) Anatomical RegionLateralityModalityLower ExtremitiesUltrasoundSpecimen (Source)Anatomical Location / LateralityCollection Method / VolumeCollection TimeReceived Time03/25/2023 3:24 PM EST Narrative 03/25/2023 3:27 PM EST [facility] ?[address] ? [place] [address] ? Ultrasound Report ? Signed ? Patient: FRANKY SRINIVASAN I ?MR#: [id number] ?? : 1965 ?Acct:[id number] ?? Age/Sex: 57 / F ?ADM Date: 03/25/23 ?? Loc: LAB ? Attending Dr: Jaymie Phoenix NP ? Ordering Physician: Jaymie Phoenix NP ?? Date of Service: 03/25/23 ?? Procedure(s): US venous doppler LE RT ?? Accession Number(s): [id number] ? cc: Jamyie Phoenix NP ? [facility] ? [address] ? [place] [address] ? Patient Name: ?? FRANKY I SCHOEWE ? MRN: [facility]:[id number] ? date: 1965 ?Sex: F ?? Assigned Patient Location: LAB ?? Current Patient Location: LAB ?? Accession/Order Number: [id number] ?? Exam Date: 03/25/2023 ??14:30 ?Report Date: 03/25/2023 ??15:24 ? At the request of: ?? JAYMIE GATICAMAURICEHomer ? Procedure: ??US venous doppler LE RT ? EXAMINATION: US venous doppler LE RT ? HISTORY: Right Lower Extremity Edema R60.0 ? COMPARISON: No relevant comparison available. ? FINDINGS: ? REGION: Right lower extremity ?? THROMBI: None. ?? COMPRESSIBILITY: Normal compressibility. ?? FLOW: Normal waveform and antegrade flow between 5 and 20 cm/s. ?? OTHER: Subcutaneous edema. ? US/US venous doppler LE RT ?? IMPRESSION: ? 1. No deep vein thrombus within the right lower extremity. ? Electronically authenticated by: GURWINDER ??CHET ?? Date: 03/25/2023 ??15:24 ? Dictated By: ?Gurwinder Day M.D. ? Signed By: ?03/25/23 1527 ? DD/ 1524 ? TD/TT: ? Male Impersonator: Procedure Note Radiology, Radiologist, MD - 03/25/2023 [place] [address] Ultrasound Report Signed Patient: FRANKY SRINIVASAN IMR#: [id number] : 1965Acct:[id number] Age/Sex: 57 / FADM Date: 03/25/23 Loc: LAB Attending Dr: Jaymie Phoenix NP Ordering Physician: Jaymie Phoenix NP Date of Service: 03/25/23 Procedure(s): US venous doppler LE RT Accession Number(s): [id number] cc: Jaymie Phoenix NP The [place] [id number] Patient Name: FRANKY SRINIVASAN MRN: [facility]:[id number] date: 1965 Sex: F Assigned Patient Location: LAB Current Patient Location: LAB Accession/Order Number: [id number] Exam Date: 03/25/2023 14:30 Report Date: 03/25/2023 [...] the right lower extremity. Electronically authenticated by: GURWINDER DAY Date: 03/25/2023 15:24 Dictated By: Gurwinder Day M.D. Signed By:03/25/23 1527 DD/ 1524 TD/TT: Male Impersonator: Authorizing ProviderResult TypeResult Shellie Phoenix NPIMG US PROCEDURES Final Result * (ABNORMAL) [facility] D-DIMER (03/25/2023 3:12 PM EST)ComponentValueRef RangeTest MethodAnalysis TimePerformed AtPathologist SignatureD DIMER0.82(HH)<=0.59 mg/L FEUTBHComment: RESULTS CALLED TO JAYMIE PHOENIX CNP Increases [...] or anticoagulant therapy, stress, and generalized hospitalization. Specimen (Source)Anatomical Location / LateralityCollection Method / Volume Collection TimeReceived Time03/25/2023 3:12 PM EST03/25/2023 3:13 PM EST Narrative [facility] - 03/25/2023 4:41 PM EST Authorizing ProviderResult TypeResult Shellie Phoenix NPCLINISYNCFinal ResultPerforming OrganizationAddressCity/State/ZIP CodePhone Number [facility] * (ABNORMAL) [facility] CMP (CMP) (FOR REMOTE [facility] USE) (03/25/2023 3:12 PM EST) ComponentValueRef RangeTest MethodAnalysis TimePerformed AtPathologist ChjfjmwmhHLZEMP325098 - 145 mmol/LTBHPOTASSIUM3.93.5 - 5.1 mmol/LTBHCHLORIDE 40860 - 107 mmol/LTBHCARBON DHJYLGF36.721.0 - 32.0 mmol/LTBHANION GAP13.2TBH DISMFEV2603 - 106 mg/dLTBHBLOOD UREA NITROGEN9.07.0 - 18.0 mg/dLTBHCREATININE 1.37(H)0.55 - 1.02 mg/dLTBHTBH EGFR-AF ZNXTRLLT25(L)>=60TBHTBH EGFR-NON AF ZJGBOHYI27(L)>=60TBHBUN CREATININE RATIO6.9NVCKCGPJVI4.58.5 - 10.1 mg/dLTBH BILIRUBIN TOTAL0.70.2 - 1.0 mg/dLTBHASPARTATE AMINO DYUXHDPABAB8396 - 37 U/L TBHALANINE IGREBJDZLHEKQPKC3366 - 59 U/LTBHALKALINE LQUMZSHBAZN2278 - 116 U/L TBHTOTAL PROTEIN6.46.4 - 8.2 g/dLTBHALBUMIN LEVEL3.2(L)3.4 - 5.0 g/dLTBH GLOBULIN3.2g/dLTBHALBUMIN GLOBULIN RATIO1.0TBHSpecimen (Source)Anatomical Location / LateralityCollection Method / VolumeCollection TimeReceived Time 03/25/2023 3:12 PM EST03/25/2023 3:13 PM EST Narrative [facility] - 03/25/2023 3:45 PM EST Authorizing ProviderResult TypeResult StatusLisa Alban NPCLINISYNCFinal ResultPerforming OrganizationAddressCity/State/ZIP CodePhone Number [facility] TB documented in this encounter Visit Diagnoses Not on filedocumented in this encounter Care Teams Team MemberRelationshipSpecialtyStart DateEnd Date WillwShaikh rodriguez MD PCP - GeneralInternal Medicine Rohan Rodríguez MD PCP - GeneralFamily Medicine Rohan Rodríguez MD PCP - GeneralFamily Medicine05/13/23 Jaymie Phoenix NP Nurse PractitionerFamily Mfnmnzdm57/19/23 Jaymie Phoenix NP Nurse PractitionerFamily [facility]05/13/23documented as of this encounter
--- OUTSIDE RECORDS SUMMARY | 2024-12-11 06:48 | XMS_ITS | Clinical Summary ---
Author Organization [facility] Address [address] [place] [address] Care Team Providers Care Venue Manager Name Role Phone Jaymie Phoenix Linda HARPER Primary Care Provider [phone] Allergies Active AllergyReactionsCriticalityNoted DateCommentsPenicillinsSwelling 03/10/2011 Medications MedicationSigDispense [...] Problems ProblemNoted DateDiagnosed DateHTN (hypertension)03/10/2011GERD (gastroesophageal reflux disease)03/10/20117894Gdzfrt80/31/2012Elevated SGOT (AST) 03/10/2011Fibromyalgia clclsnny09/31/2012bnormal thyroid blood test, past toaxmqg7403/10/2011 Overview (03/10/2011): 6 months ago, normal from 02/10/2011 Smoking brjcsqq9503/10/2011 Social History Tobacco UseTypesPacks/DayYears UsedDateSmoking Tobacco: NeverSmokeless Tobacco: NeverAlcohol UseStandard Drinks/WeekCommentsNot Asked0 (1 standard drink = 0.6 oz pure alcohol)CommentsUnknownSex and Gender InformationValueDate RecordedSex Assigned at BirthNot on fileLegal OsyGvvujt75/02/2012 10:13 AM EST Gender IdentityNot on fileSexual OrientationNot on file Last Filed Vital Signs Vital SignReadingTime TakenCommentsBlood Suknvycm004/8505 1:02 PM EDT Cxjma276006/08/2013 1:02 PM EDTTemperature--Respiratory Pkgq743706/08/2013 1:02 PM EDTOxygen Nwqokptnau36%06/08/2013 1:02 PM EDTInhaled Oxygen Concentration-- Bohaab65.8 kg (187 lb)06/08/2013 1:02 PM NKNSlsoge262.6 cm (5' 6 )06/08/2013 1:02 PM EDTBody Mass Index30.18006/08/2013 1:02 PM EDT Plan of Treatment Health MaintenanceDue DateLast DoneCommentsAnxiety Jrckoyrbi17/09/1982Depression Pnbhcvolu89/09/1982HIV Yxeaalmgp47/09/1982DTaP,Tdap,Td Vaccine (1 - Tdap) 08/16/1982Cervical Cancer Mbcxupurj15/09/1985Mammogram Wmqdsvpiy74/09/2004CT Mpsixakywhbg10/09/2009Cologuard (FIT-DNA)08/16/20085251Oncoceaawln01/09/2009 Colorectal Cancer Rnhujziju95/09/2009Diabetes Yfuxwdohk23/09/2009Fecal Occult Blood08/16/2008Lipid Qvnvdgppt44/09/4788Lmgflmqdmxjuh58/09/2009Pneumococcal Vaccine: 50+ (1 of 1 - PCV)08/16/2013Shingrix Vaccine (1 of 2)08/16/2013Covid-19 Vaccine (1 - season)2024Influenza Vaccine (#1)2024RSV Vaccine (1 - 1-dose 75+ series)08/16/2038Hepatitis C ScreeningCompleted 03/10/2011 Procedures Procedure NamePriorityDate/TimeAssociated DiagnosisCommentsHEP REMOTE PANEL BL Enqgwpw9703/10/2011 11:21 AM EST Elevated SGOT (AST) Tattoo Fatigue from Last 3 Months or Most Recently Relevant to Health Maintenance Results * (ABNORMAL) HEP REMOTE PANEL BL (03/10/2011 11:21 AM EST)ComponentValueRef RangeTest MethodAnalysis TimePerformed AtPathologist SignatureHep B Core Ab, TotalPositive(A)[facility]GATC[facility] LABORATORYHep C Antibody IANegative NEGATCLEVELAND [facility]ICS MAIN LABORATORYHBsAgNegativeNEGATCLEVELAND [facility]IVIA [facility]OSP[facility] AND [facility]INICS MAIN LABORATORYHep B Surface Ab, QualNegativeNEGATCLEVELAND CLINIC [...] StatusFeiban Singer MDLABORATORYFinal ResultPerforming OrganizationAddressCity/State/ZIP CodePhone Number [facility] [address] [place] [address] from Last 3 Months or Most Recently Relevant to Health Maintenance Insurance * Guarantor: Agatha Gagnon TypeRelation to PatientDate of BirthPhone Billing AddressSelf [id number] [address] [address] Care Teams Team MemberRelationshipSpecialtyStart DateEnd Date Jaymie Phoenix, DIRECTOR OF HOSPITALITY [address] [place] [address] PCP - [facility]Add[facility]04/10/13
--- OUTSIDE RECORDS SUMMARY | 2024-12-11 06:48 | XMS_ITS | Encounter Summary ---
Author Organization [facility] Address [address] [place] [address] Care Team Providers Care Pricing Lead Name Role Phone Jaymie Phoenix NETWORK SECURITY OFFICER Unavailable [phone] Shaikh PERRY Marquez Primary Care Provider [phone] Rohan Rodríguez MD Primary Care Provider [phone] Rohan Rodríguez MD Primary Care Provider [phone] Jaymie Phoenix NETWORK SECURITY OFFICER Unavailable [phone] Encounter Details DateTypeDepartmentCare Team (Latest Contact Info)Psivrhdpqsd14/14/2024Clinisync Result Encounter [facility] External Department Unsolicited Provider, Generic External Data Social History Tobacco UseTypesPacks/DayYears UsedDateSmoking Tobacco: Every VkiDpdmrbgwly380 Smokeless Tobacco: Never Comments:11-20 cigarettes/da y Alcohol [...] relatives?Twice a week05/13/2023How often do you attend cheondoism or confucianist services?Never05/13/2023o you belong to any clubs or organizations such as cheondoism groups, unions, fraternal or athletic groups, or school groups?No 05/13/2023How often do you attend meetings of the clubs or organizations you belong to?Never05/13/2023re you , , , , never , or living with a partner?Ucneael9905/13/2023UDIT-CAnswerDate RecordedQ1: How often do you have a [...] care, and heating?Somewhat hard05/13/2023HQ-2AnswerDate RecordedPatient Health Questionnaire-2 Wipsw851Finhe[facility] [place] of Occupational Health - Occupational Stress QuestionnaireAnswerDate RecordedDo you feel stress - tense, restless, nervous, or anxious, or unable to sleep at night because your mind is troubled all the time - these days?Only a ddandn1405/13/2023Exercise Vital SignAnswerDate RecordedOn average, how many days [...] InformationValueDate RecordedSex Assigned at BirthNot on fileLegal PqtObnrsi21/15/2023 7:27 PM EDTGender Identity Not on fileSexual OrientationNot on filedocumented as of this encounter Functional Status * AUDIT-C ScoreAnswerDate of KreciehumgTzywdt586/25/2024 3:03 PM Clarisa Gupta MA * QuestionAnswerDate [...] 10:22 AM Clarisa Zarco MAPatient Health Questionnaire-2 Roink494 10:22 AM Clarisa Gupta MA * QuestionAnswerDate [...] 10:22 AM Clarisa Gupta MAPatient Health Questionnaire-9 Jykan025 10:22 AM Clarisa Gupta MA * If [...] as of this encounter Procedures Procedure NamePriorityDate/TimeAssociated DiagnosisCommentsSEGMENTAL BLOOD WCTPZROP55/14/2024 1:06 PM EST documented in this encounter Results * SEGMENTAL BLOOD PRESSURE (03/24/2023 1:06 PM EST)Anatomical RegionLaterality ModalityRadiographic ImagingSpecimen (Source)Anatomical Location / Laterality Collection Method / VolumeCollection TimeReceived Time03/24/2023 1:06 PM EST Narrative 03/24/2023 10:33 PM EST [facility] ?[address] ? [place] [address] ? Cardiology Report ? Signed ? Patient: FRANKY SRINIVASAN I ?MR#: [id number] ?? : 1965 ?Acct:[id number] ?? Age/Sex: 57 / F ?ADM Date: 03/24/23 ?? Loc: CARD ? Attending Dr: Nilam Busby ? Ordering Physician: Nilam Busby ?? Date of Service: 03/24/23 ?? Procedure(s): CA segmental UE or LE SABRINA ?? Accession Number(s): [id number] ? cc: Jaymie Phoenix NP; Nilam Busby ?[facility] ? Test Date: ?2023-03-24 ?? Pat Name: ? FRANKY SCHOEWE ? Department: ? Room: ? - ?? Gender: ? Female ? Spine Surgeon: ? : ?1965 ? Requested By: Nilam Busby ?? Order Number: [id number] ?Reading MD: ?? RICH ??KASSANDRA ? Interpretive Statements ?? Monophasic doppler waveform of the LLE ?? PVR waveforms with blunted amplitude in the LLE ?? Right: ?? - significant pressure gradient between the thigh and calf cuff ?? - normal LUH ?? Left: ?? - significant pressure gradient between the thigh and calf cuff ?? - normal LUH ? Impression: ?? - elevated indices (B/L thigh) consistent with calcified, noncompressible ?? arterial benitez, which may underestimate the degree of arterial disease ?? present. ?? - normal arterial evaluation of the lower extremities without hemodynamic ?? impairment of the B/L lower extremities at rest (right LUH 1.11, left LUH ?? 1.12) ? Electronically Signed On 03-24-2023 22:33:33 EST by RICH ??KASSANDRA ? Dictated By: ?Rich Cannon D.O. ? Signed By: ?03/24/233 ?03/24/23 2233 ? DD/ 1306 ? TD/TT: ? Second Steward: Procedure Note Radiology, Radiologist, MD - 03/24/2023 [place] [address] Cardiology Report Signed Patient: FRANKY SRINIVASAN IMR#: [id number] : 1965Acct:[id number] Age/Sex: 57 / FADM Date: 03/24/23 Loc: CARD Attending Dr: Nilam Busby Ordering Physician: Nilam Busby Date of Service: 03/24/23 Procedure(s): CA segmental UE or LE SABRINA Accession Number(s): [id number] cc: Jaymie Phoenix NP; Nilam Busby [facility] Test Date: 2023-03-24 Pat Name: FRANKY SRINIVASAN Department: Room: - Gender: Female Spine Surgeon: : 1965 Requested By: Nilam Busby Order Number: [id number] Reading MD: RICH CANNON Interpretive Statements Monophasic [...] CANNON Dictated By: Rich Cannon D.O. Signed By:03/24/23 2233 03/24/232232 DD/ 1306 TD/TT: Second Steward: Authorizing ProviderResult TypeResult StatusGeneric External Data ProviderIMG XR PROCEDURESFinal Result documented in this encounter Visit Diagnoses Not on filedocumented in this encounter Care Teams Team MemberRelationshipSpecialtyStart DateEnd Date Shaikh Marquez MD PCP - GeneralInternal Medicine Rohan Rodríguez MD PCP - GeneralFamily Medicine Rohan Rodríguez MD PCP - GeneralFamily Medicine05/13/23 Jaymie Phoenix NP Nurse PractitionerFamily Lxrecvku23/19/23 Jaymie Phoenix NP Nurse PractitionerFamily Medicine05/13/23documented as of this encounter
--- OUTSIDE RECORDS SUMMARY | 2024-12-11 06:48 | XMS_ITS | Encounter Summary ---
Author Organization [facility] Address [address] [place] [address] Care Team Providers Care Child Life Therapist Name Role Phone Jaymie Phoenix PREFITTER DOORS Unavailable [phone] Shaikh PERRY Marquez Primary Care Provider [phone] Rohan Rodríguez MD Primary Care Provider [phone] Rohan Rodríguez MD Primary Care Provider [phone] Jaymie Phoenix PREFITTER DOORS Unavailable [phone] Encounter Details DateTypeDepartmentCare Team (Latest Contact Info)Lsgwfdjtkem40/14/2024Clinisync Result Encounter [facility] External Department Unsolicited Provider, Generic External Data Social History Tobacco UseTypesPacks/DayYears UsedDateSmoking Tobacco: Every LbcPhnvfhgzzj982 Smokeless Tobacco: Never Comments:11-20 cigarettes/da y Alcohol [...] relatives?Twice a week05/13/2023How often do you attend pentecostalism or synagogue services?Never05/13/2023o you belong to any clubs or organizations such as pentecostalism groups, unions, fraternal or athletic groups, or school groups?No 05/13/2023How often do you attend meetings of the clubs or organizations you belong to?Never05/13/2023re you , , , , never , or living with a partner?Vstmrod8505/13/2023UDIT-CAnswerDate RecordedQ1: How often do you have a [...] care, and heating?Somewhat hard05/13/2023HQ-2AnswerDate RecordedPatient Health Questionnaire-2 Cznxa548Finog[facility] [place] of Occupational Health - Occupational Stress QuestionnaireAnswerDate RecordedDo you feel stress - tense, restless, nervous, or anxious, or unable to sleep at night because your mind is troubled all the time - these days?Only a lirfhq0505/13/2023Exercise Vital SignAnswerDate RecordedOn average, how many days [...] InformationValueDate RecordedSex Assigned at BirthNot on fileLegal MydBrbqfg23/15/2023 7:27 PM EDTGender Identity Not on fileSexual OrientationNot on filedocumented as of this encounter Functional Status * AUDIT-C ScoreAnswerDate of HpkejgotutAuyddv759/25/2024 3:03 PM Clarisa Gupta MA * QuestionAnswerDate [...] AM EDT Clarisa Varma MAPatient Health Questionnaire-2 Ywnms324 10:22 AM Clarisa Gupta MA * QuestionAnswerDate [...] 10:22 AM Clarisa Gupta MAPatient Health Questionnaire-9 Pcean265 10:22 AM Clarisa Gupta MA * If [...] as of this encounter Procedures Procedure NamePriorityDate/TimeAssociated DiagnosisCommentsVC EXT VENOUS REFLUX SABRINA LMTD04/22/2023 2:40 PM EDT documented in this encounter Results * VC EXT VENOUS REFLUX SABRINA LMTD (04/22/2023 2:40 PM EDT)Anatomical Region LateralityModalityOtherSpecimen (Source)Anatomical Location / Laterality Collection Method / VolumeCollection TimeReceived Time04/22/2023 2:40 PM EDT Narrative 04/22/2023 2:41 PM EDT [facility] ?[address] ? [place] [address] ?Vein Report ? Signed ? Patient: FRANKY SRINIVASAN ?MR#: [id number] ?? : 1965 ?Acct:[id number] ?? Age/Sex: 57 / F ?ADM Date: 04/22/23 ?? Loc: VC ? Attending Dr: Nadine Grant M.D. ? Ordering Physician: Nadine Grant M.D. ?? Date of Service: 04/22/23 ?? Procedure(s): VC EXT Venous Reflux SABRINA LMTD ?? Accession Number(s): [id number] ? cc: Jaymie Phoenix NP; Nadine Grant M.D. ? Patient Name: ? FRANKY SRINIVASAN ? MR#: [id number] ? : 1965 ? Exam Date: 04/22/2023 ?? Ordering Doctor: DR NADINE GRANT M.D. ? RADIOLOGY REPORT ? PROCEDURE: ? VC EXT VENOUS REFLUX SABRINA LMTD ? COMPARISON: ? None. ? INDICATIONS: ? R60.0 Bilateral Lower Edema ? TECHNIQUE: ? Duplex imaging of the lower extremity to assess the deep and ?? superficial venous system for the presence of deep or superficial venous ?? incompetence and to document the location and severity of disease. ??The study ?? includes evaluation of the great saphenous vein (GSV), anterior accessory ?? saphenous vein (AASV) and small saphenous vein (SSV). ??Patient scanned in ?? reverse Trendelenburg and standing. ?? FINDINGS: ? RIGHT LOWER EXTREMITY: ?? Saphenofemoral Junction Reflux: Yes 8.8mm 0.9 sec ?? GSV: ? Diam (mm) ?Reflux/ Time (sec) ?? Proximal Thigh ? 3.3 ? Yes ?? 0.7 ?? Mid Thigh ? 3.7 ? No ?? Distal Thigh ? 3.7 ? No ?? Prox Calf ? 3.2 ? No ?? Mid Calf ? 4.0 ? No ? Saphenopopliteal Junction Reflux: 3.0mm ?No ? SSV: ? Proximal Calf ? 2.6 ? No ? Mid Calf ? 1.7 ? No ? AASV: ? Proximal Thigh ? 6.2 ? Yes ?? 1.7 ?? Mid Thigh ? 4.5 ? Yes ?? 0.8 ?? Distal Thigh ? Thrombi: ? No acute or chronic thrombus visualized ? Compressibility: ? Normal ? Flow: ? Normal ? Preforator: Dist/med calf 3.1mm with 0s reflux. ?? Tech Note: Incompetent AASV. Patent varicose vein mid/med calf 4.7mm with 0.9s ?? reflux. Patent varicose vein prox/med calf 3.7mm with 0.8s reflux. Patent ?? varicose vein mid/med thigh 5.0mm with 1.5s reflux. ? LEFT LOWER EXTREMITY: ?? Saphenofemoral Junction Reflux: Yes 7.5 mm 1.2 sec ?? GSV: ? Diam (mm) ? Reflux/Time (sec) ?? Proximal ??Thigh ? 2.9 ? Yes ?0.5 ?? Mid ?? Thigh ? 2.6 ? Yes ?0.9 ?? Distal ??Thigh ? 4.6 ? Yes ? 0.9 ?? Prox ??Calf ? 3.2 ? No ? Mid ??Calf ? 3.5 ? No ? Saphenopopliteal Junction Relux: ? 3.0 mm ? No ? SSV: ? Proximal ??Calf ? 2.3 ? Yes ??0.7 ?? Mid ??Calf ? 2.8 ? No ? AASV: ? Proximal ??Thigh ? 6.0 ? Yes ?1.0 ?? Mid ??Thigh ? 5.2 ? Yes ?1.1 ?? Distal ??Thigh ? Thrombi: ? No acute or chronis thrombus visualized ? Compressibility: ? Normal ? Flow: ? Normal ? Tomography Technologist: Dist/med calf 3.9mm with 1.0s reflux. ?? Tech Note: Incompetent AASV. Patent varicose vein mid/med calf 3.6mm with 1.5s ?? reflux. Patent varicose vein dist/med thigh 4.1mm with 0.8s reflux. ? CONCLUSION: ?? 1. 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 ? Dictated by: Gurwinder Day M.D. on 04/22/2023 at 14:21 ? Approved by: Gurwinder Day M.D. on 04/22/2023 at 14:40 ? Dictated By: ?Gurwinder Day M.D. ? Signed By: ?04/22/23 1441 ? DD/ 1440 ? TD/TT: ? Combination Presser: Procedure Note Radiology, Radiologist, MD - 04/22/[address] [address] Vein Report Signed Patient: YVES SRINIVASAN#: [id number] : 1965Acct:[id number] Age/Sex: 57 / FADM Date: 04/22/23 Loc: VC Attending Dr: Nadine Grant M.D. Ordering Physician: Nadine Grant M.D. Date of Service: 04/22/23 Procedure(s): VC EXT Venous Reflux SABRINA LMTD Accession Number(s): [id number] cc: Jaymie Phoenix NP; Nadine Grant M.D. Patient Name: FRANKY SRINIVASAN MR#: [id number] : 1965 Exam Date: 04/22/2023 Ordering Doctor: [...] chronis thrombus visualized Compressibility: Normal Flow: Normal Tomography Technologist: Dist/med calf 3.9mm with 1.0s reflux. Tech [...] M.D. Signed By:04/22/23 1441 DD/ 1440 TD/TT: Combination Presser: Authorizing ProviderResult TypeResult StatusGeneric External Data Provider [facility]NC IMAGINGFinal Result documented in this encounter Visit Diagnoses Not on filedocumented in this encounter Care Teams Team MemberRelationshipSpecialtyStart DateEnd Date Shaikh Marquez MD PCP - GeneralInternal Medicine Rohan Rodríguez MD PCP - GeneralFamily Medicine Rohan Rodríguez MD PCP - GeneralFamily Medicine05/13/23 Jaymie Phoenix NP [facility]erHey[facility] Zsscnptz53/19/23 Jaymie Phoenix NP [facility]er[facility]05/13/23documented as of this encounter
--- OUTSIDE RECORDS SUMMARY | 2024-12-11 06:48 | XMS_ITS | Clinical Summary ---
Author Organization [facility] Address [address] [place] [address] Care Team Providers Care Inspector Publications Name Role Phone Jaymie Phoenix GLYCERIN SUPERVISOR Unavailable [phone] Rohan Rodríguez MD Primary Care Provider [phone] Jaymie Phoenix GLYCERIN SUPERVISOR Unavailable [phone] Allergies Active AllergyReactionsCriticalityNoted DateCommentsPenicillin QNbeps5210/28/2024 shortness of breath PenicillinsHives,Shortness of breath,QnhkvdgpBcnl73/27/2023 Shortness of breath PptvqfyxtoDhmbpppJcnipa57/27/2023 Itchy eyes and shortness of breath Medications MedicationSigDispense QuantityRefillsLast FilledStart DateEnd DateStatus cholecalciferol (Vitamin D-3) 125 MCG (5000 UT) tablet as directed OrallyActive ibuprofen 800 MG tablet Take 800 mg by mouth every 8 (eight) hours if vgdjxc9401/08/2023ctive lamoTRIgine (LaMICtal) 200 MG tablet Take 200 mg by mouth at bedtimeActive prazosin (Minipress) 2 MG capsule Take 2 mg by mouth at bedtimeActive ipratropium-albuterol (Duo-Neb) 0.5-2.5 mg/3 mL nebulizer solution Take 3 mL by nebulization every 6 (six) hours if needed for wheezing or shortness of jycncu6612/28/2023ctive albuterol (2.5 MG/3ML) 0.083% nebulizer solution Take 2.5 mg by nebulization every 6 (six) hours if needed for shortness of breath or kqrjksra29/15/2024ctive lamoTRIgine (LaMICtal) 100 MG tablet Take 100 mg by mouth DailyActive prazosin (Minipress) 1 MG capsule Take 1 mg by mouth at gbrfotj82/08/2024Active albuterol HFA 90 mcg/act inhaler Indications:COPD mixed type (HCC)Inhale 2 puffs every 6 (six) hours if needed for shortness of breath or wheezing 18 g 5Active QUEtiapine (SEROquel) 300 MG tablet Take 300 mg by mouth at zkdqbon33/03/2025Active amitriptyline (Elavil) 100 MG tablet Indications:FibromyalgiaTake 0.5 tablets (50 mg) by mouth at bedtime 45 tablet tive bumetanide (Bumex) 0.5 MG tablet Indications:Bilateral lower extremity edemaTake M W F only 27 tablet tive cetirizine (ZyrTEC) 10 MG tablet Indications:Environmental and seasonal allergiesTake 1 tablet (10 mg) by mouth Daily 90 tablet tive montelukast (Singulair) 10 MG tablet Indications:Environmental and seasonal allergiesTake 1 tablet (10 mg) by mouth at bedtime 90 tablet tive pregabalin (Lyrica) 100 MG capsule Indications:FibromyalgiaTake 1 capsule (100 mg) by mouth in the morning and 1 capsule (100 mg) before bedtime. 60 capsule tive propranolol (Inderal) 40 MG tablet Indications:Personal history [...] by mouth in the morning. 30 tablet 5Active tiZANidine (Zanaflex) 4 MG tablet Indications:FibromyalgiaTake 1 tablet (4 mg) by mouth every 12 (twelve) hours if needed for muscle spasms 60 tablet tive meloxicam (Mobic) 15 MG tablet Daily10/28/2024tive methylPREDNISolone (Medrol Dospak) 4 MG tablets TAKE BY MOUTH DIRECTED ON WWHUTUI7210/04/2024tive cyclobenzaprine (Flexeril) 5 MG tablet TAKE 3 TABLETS BY MOUTH THREE TIMES DAILY HBBSUM0910/20/2024tive pregabalin (Lyrica) 75 MG capsule Take 75 mg by mouth in the morning and 75 mg before bedtime.11/29/2024tive Active Problems ProblemNoted DateDiagnosed DateAcute back pain with ninppige06/21/2025Screening for lung irjxhn9507/31/2024 Assessment & Plan (07/31/2024 11:24 AM EDT): [...] EDT): Check Chem 8 Environmental and seasonal vwovhrevk47/12/2154Ttecor18/02/2025 Assessment & Plan (07/31/2024 7:12 AM EDT): Will refer to neuro for this Differentials: side effects med, PD? Assessment & Plan (02/10/2024 5:13 PM EST): Will refer to neuro for this Differentials: side effects med, PD? COPD with acute qwleszmvrvgm97/25/2024 Assessment & Plan (02/10/2024 7:12 AM EST): [...] be partial cause of swelling Acute megaloblastic bssvnq9802/18/2023nxiety and atrxmvizel89/11/2024 Assessment & Plan (07/31/2024 7:11 AM EDT): Continue with Dr Hernandez Assessment & Plan (06/03/2023 6:38 PM EDT): Continue with Dr Hernandez Hyperplastic polyp of sigmoid colon02/18/2023Internal derangement of left knee 02/18/2023Osteoarthritis of knee02/18/20237580Ozxmagzpgq35/11/2024atellofemoral syndrome of left knee02/18/2023ositive colorectal cancer screening using Cologuard test02/18/2023Vitamin B12 nbeyuwaszn09/11/2024Vitamin D deficiency 02/18/2023ody mass index (BMI) 40.0-44.9, adult02/18/2023Morbid (severe) obesity due to excess lrleqeph23/11/2024 Assessment & Plan (07/31/2024 11:22 AM EDT): [...] exercise on regular basis Chronic lumbar pain02/18/2023Mixed zbcoynhwrrcvvb40/19/2023 Assessment & Plan (07/31/2024 7:11 AM EDT): On statin therapy Check labs yearly and prn dose changes Assessment & Plan (01/03/2024 6:48 AM EST): On statin therapy, check labs Assessment & Plan (01/26/2023 10:36 AM EST): Check labs Tobacco lnxbrwdety19/19/2023 Overview (05/31/2023): Low dose CT scan chest: 05/31/23: WNL Assessment & Plan (07/31/2024 11:23 AM EDT): The patient has been advised of the risks of continued smoking: stroke, OR, all forms of cancer, lung disease, and [...] of the risks of continued smoking: stroke, OR, all forms of cancer, lung disease, and [...] of the risks of continued smoking: stroke, OR, all forms of cancer, lung disease, and [...] of the risks of continued smoking: stroke, OR, all forms of cancer, lung disease, and [...] of the risks of continued smoking: stroke, OR, all forms of cancer, lung disease, and . Options for quitting smoking include: cold turkey, hypnosis, acupuncture, nicotine replacement meds(gum, lozenges, and patches), Buproprion, and Varenicline. At this time pt is encouraged to evaluate their goals for wanting to quit smoking, and reach out toprovider when ready to start this process Assessment & Plan (01/26/2023 10:37 AM EST): Recommend quitting, pt declines Primary pkebvegdrfrf82/19/2023 Assessment & Plan (07/31/2024 7:06 AM EDT): [...] Assessment & Plan (06/03/2023 6:40 PM EDT): Naty chand, does have exp wheeze, mild No resp distress Assessment & Plan (05/13/2023 1:31 PM EDT): Naty chand, does have exp wheeze, mild-mod No resp distress Will trial singulair Fu in 3 weeks, advised of side effects from singulair Assessment & Plan (04/26/2023 8:23 PM EDT): Naty chand, does have exp wheeze, mild-mod No resp [...] mannie Will cover with atb as well Zztqiuqojbol85/27/2023 Assessment & Plan (07/31/2024 11:22 AM EDT): [...] possible Current med: omeprazole Insurance correspondance about court crier use of PPI Pt has been counseled on the risks of court crier use, would like to continue Assessment & [...] of mcc use, would like to continue Resolved Problems ProblemNoted DateDiagnosed DateResolved DateEssential okepggtsguyf61/30/2025 12/07/2024GERD without ywpcecguxfj78Morbid obesity due to excess yxcrogff20OA (osteoarthritis) of knee12/07/2024 12/07/2024Nicotine vihyirrmon36Megaloblastic xvrzwf2912/06/2024 12/06/2024Major depressive disorder, recurrent, ntlopguc99GAD (generalized anxiety disorder)KD stage 3a, GFR 45-59 ml/min OPD with wdlbalmsgyvz84Elevated SGOT AP (community acquired pneumonia)Edema of right lower dwbgznaxm69 Assessment & Plan (06/03/2023 6:39 PM EDT): Significant improvement in swelling, however d/t renal functions, we are going to cut back to [facility] Recheck labs in 4 weeks, order given Assessment & Plan (03/25/2023 4:34 PM EST): Will order labs: CBC, Chem 14, and d dimer Check stat US RLE, negative for clot Shortness of laubua95/ Assessment & Plan (03/25/2023 4:32 PM EST): Chest xray Acute pain of left knee/arbon monoxide uoqbhlbg96/11/2024 03/16/2023Hearing lossLower extremity edema02/18/2023 03/16/2023Tobacco user/07/20237303Wnpvwcdow28/11/202402/07/2023 Nvderowdyyngqn73lass 3 severe obesity due to excess calories without serious comorbidity with body mass index (BMI) of 40.0 to 44.9 in adult Other acute /07/2023Open wound of second toe Assessment & Plan (01/26/2023 10:50 AM EST): Atb, and epsom salt soaks Fu in 4 weeks Open wound of left foot/05/2023 Assessment & Plan (01/26/2023 10:53 AM EST): Soak foot epsom salt Atb Fu in 4 weeks Migraine headache without aura1/05/2023 Assessment & Plan (01/26/2023 10:36 AM EST): Stable on current meds no changes needed Essential oiyezgtbpzhh03/04/202202/07/20232434Dkahun10Smoking kdegjnk58Fibromyalgia xxgaired61HTN (hypertension) Encounters DateTypeDepartmentCare IipcRzjyhiqohcj61/22/2025Refill [facility] [place] [facility] [address] [facility] [place] [address] Jaymie Phoenix NP Gastro-esophageal reflux disease without esophagitis; Mixed hyperlipidemia ; Fibromyalgia; Localized edema09/19/2024linisync Result Encounter [facility] External Department Unsolicited Provider, Generic External Data from Last 3 Months Immunizations ImmunizationAdministration DatesNext Elisa BYDS-TnJ-600/07/2021Tdap 08/29/2023 Social History Tobacco UseTypesPacks/DayYears UsedDateSmoking Tobacco: Every JblPuylaijatg938 Smokeless Tobacco: Never Tobacco Cessation:Ready to Q [...] relatives?Twice a week05/13/2023How often do you attend sabianist or hindu services?Never04/04/2024Do you belong to any clubs or organizations such as sabianist groups, unions, fraternal or athletic groups, or school groups?No 05/13/2023How often do you attend meetings of the clubs or organizations you belong to?Never05/13/2023re you , , , , never , or living with a partner?Ablyppc5705/13/2023UDIT-CAnswerDate RecordedQ1: How often do you have a [...] care, and heating?Somewhat hard05/13/2023HQ-2AnswerDate RecordedPatient Health Questionnaire-2 Rpeyi230[facility] [place] of Occupational Health - Occupational Stress QuestionnaireAnswerDate RecordedDo you feel stress - tense, restless, nervous, or anxious, or unable to sleep at night because your mind is troubled all the time - these days?Only a doaxgx5505/13/2023Exercise Vital SignAnswerDate RecordedOn average, how many days [...] InformationValueDate RecordedSex Assigned at BirthNot on fileLegal CyrSkdzeg25/15/2023 7:27 PM EDTGender Identity Not on fileSexual OrientationNot on file Last Filed Vital Signs Vital SignReadingTime TakenCommentsBlood Ybeaecfj478/6407 1:00 PM EDT Naovu576008/31/2024 1:00 PM MATGhhqteduxbk39.7 ??C (98.1 ??F)07/31/2024 10:09 AM EDTRespiratory Wklb591607/31/2024 10:09 AM EDTOxygen Aetjvmwcha60%08/31/2024 1:00 PM EDTInhaled Oxygen Concentration--Rmaiqv802 kg (245 lb)08/31/2024 1:00 PM EDT Xqqksu855.1 cm (5' 5 )02/10/2024 1:31 PM ESTBody Mass Index40.77002/10/2024 1:31 PM EST Plan of Treatment Health MaintenanceDue DateLast DoneCommentsCT Emhbhbnecpsx93/09/1964FIT 1965FOBT1965 4223Faxgtqngyyyul11/09/1964MMR Vaccines (1 of 1 - Standard series)08/16/1964Pap Smear08/16/1984HPV/Gvknxp3608/16/1993DTaP/Tdap/Td Vaccines (2 - Td or Tdap)/OVID-19 Vaccine (2 - season)2024 06/14/2020Influenza Vaccine (#1)2024FIT-DNA11/18/, 06/09/20177147Nowayptdf14/02/079512/03/2024 (Patient Refused), 03/25/2023 (Patient Refused)Yveimitsont99, 3Colorectal Cancer Screening 3Cervical Cancer ScreeningDiscontinuedHIB VaccinesAged OutNo longer eligible based on patient's age to complete this topicHPV VaccinesAged OutNo longer eligible based on patient's age to complete this topicHepatitis A VaccinesAged OutNo longer eligible based on patient's age to complete this topic Hepatitis B VaccinesAged OutNo longer eligible based on patient's age to complete this topicIPV VaccinesAged OutNo longer eligible based on patient's age to complete this topicMeningococcal B VaccineAged OutNo longer eligible based on patient's age to complete this topicMeningococcal VaccineAged OutNo longer eligible based on patient's age to complete this topicPneumococcal Vaccine: Pediatrics (0 to 5 Years) and At-Risk Patients (6 to 64 Years)Aged OutNo longer eligible based on patient's age to complete this topicRotavirus VaccinesAged Out No longer eligible based on patient's age to complete this topic Procedures Procedure NamePriorityDate/TimeAssociated DiagnosisCommentsXR LUMBAR SPINE 6V W NGGXMKB3509/19/2024 2:33 PM EDT from Last 3 Months Results * XR LUMBAR SPINE 6V W BENDING (09/19/2024 2:33 PM EDT)Anatomical Region LateralityModalityOtherSpecimen (Source)Anatomical Location / Laterality Collection Method / VolumeCollection TimeReceived Time09/19/2024 2:33 PM EDT Narrative 09/19/2024 2:36 PM EDT [facility] ?[address] ? [place] [address] ?XRay Report ? Signed ? Patient: FRANKY SRINIVASAN I ?MR#: [id number] ?? : 1965 ?Acct:[id number] ?? Age/Sex: 59 / F ?ADM Date: 09/19/24 ?? Loc: RAD ? Attending Dr: Estelle Lozano GLYCERIN SUPERVISOR ? Ordering Physician: Estelle Lozano NP ?? Date of Service: 09/19/24 ?? Procedure(s): XR lumbar spine 6V w bending ?? Accession Number(s): [id number] ? cc: Jaymie Phoenix GLYCERIN SUPERVISOR; Estelle Lozano GLYCERIN SUPERVISOR ? [facility] ? [address] ? [place] [address] ? Patient Name: ?? FRANKY SRINIVASAN ? MRN: [facility]:[id number] ? date: 1965 ?Sex: F ?? Assigned Patient Location: RAD ?? Current Patient Location: RAD ?? Accession/Order Number: [id number] ?? Exam Date: 09/19/2024 ??14:32 ?Report Date: 09/19/2024 ??14:33 ? At the request of: ?? ESTELLE ??MARTA ??GLYCERIN SUPERVISOR ? Procedure: ??XR lumbar spine 6V w [...] ? Impression dictated by: Joaquin Chatman Jr., D.OCindy ??09/19/2024 2:33 PM ? Dictation Location: [facility]--23 ? Electronically authenticated by: [id number] ??Y ?? Date: 09/19/2024 ??14:33 ? Dictated By: ?Joaquin Chatman M.D. ? Signed By: ?09/19/24 1436 ? DD/ 1433 ? TD/TT: ? Organizational Consultant: Procedure Note Radiology, Radiologist, MD - 09/19/2024 [place] [address] XRay Report Signed Patient: FRANKY SRINIVASAN IMR#: [id number] : 1965Acct:[id number] Age/Sex: 59 / FADM Date: 09/19/24 Loc: [facility] Attending Dr: Estelle Lozano NP Ordering Physician: Estelle Lozano NP Date of Service: 09/19/24 Procedure(s): XR lumbar spine 6V w bending Accession Number(s): [id number] cc: Jaymie Phoenix GLYCERIN SUPERVISOR; Estelle Lozano NP [place] [address] Patient Name: FRANKY SRINIVASAN MRN: [facility]:[id number] date: 1965 Sex: F Assigned Patient Location: [facility] Current Patient Location: [facility] Accession/Order Number: [id number] Exam Date: 09/19/2024 14:32 Report Date: 09/19/2024 [...] Jr., D.O. 09/19/2024 2:33 PM Dictation Location: [place] [address] Electronically authenticated by: [id number] Y Date: 4:33 Dictated By: Joaquin Chatman M.D. Signed By:09/19/24 1436 DD/ 1433 TD/TT: Organizational Consultant: Authorizing ProviderResult TypeResult StatusGeneric External Data Provider [facility] IMAGINGFinal Result from Last 3 Months Insurance Care Teams Team MemberRelationshipSpecialtyStart DateEnd Date Rohan Rodríguez MD PCP - GeneralFamily Medicine05/13/23 Jaymie Phoenix NP Nurse PractitionerFamily Hpoowjtp14/19/23 Jaymie Phoenix NP Nurse PractitionerFamily Medicine05/13/23
--- OUTSIDE RECORDS SUMMARY | 2024-12-11 06:48 | XMS_ITS | Encounter Summary ---
Author Organization [facility] Address [address] [place] [address] Care Team Providers Care Instrument Technologist Name Role Phone Jaymie Phoenix SILICA DRY PRESS HELPER Unavailable [phone] Shaikh PERRY Marquez Primary Care Provider [phone] Rohan Rodríguez MD Primary Care Provider [phone] Rohan Rodríguez MD Primary Care Provider [phone] Jaymie Phoenix SILICA DRY PRESS HELPER Unavailable [phone] Encounter Details DateTypeDepartmentCare Team (Latest Contact Info)Lvofvuodner40/15/2024Clinisync Result Encounter [facility] External Department Unsolicited Jaymie Phoenix NP [address] [place] [address] Social History Tobacco UseTypesPacks/DayYears UsedDateSmoking Tobacco: Every QxeEbwosiqsks506 Smokeless Tobacco: Never Comments:11-20 cigarettes/da y Alcohol [...] relatives?Twice a week05/13/2023How often do you attend latter day or taoism services?Never05/13/2023o you belong to any clubs or organizations such as latter day groups, unions, fraternal or athletic groups, or school groups?No 05/13/2023How often do you attend meetings of the clubs or organizations you belong to?Never05/13/2023re you , , , , never , or living with a partner?Aqqdcpr4605/13/2023UDIT-CAnswerDate RecordedQ1: How often do you have a [...] care, and heating?Somewhat hard05/13/2023HQ-2AnswerDate RecordedPatient Health Questionnaire-2 Yicvv842Finbrigham [facility] [place] of Occupational Health - Occupational Stress QuestionnaireAnswerDate RecordedDo you feel stress - tense, restless, nervous, or anxious, or unable to sleep at night because your mind is troubled all the time - these days?Only a cmglzf9905/13/2023Exercise Vital SignAnswerDate RecordedOn average, how many days [...] InformationValueDate RecordedSex Assigned at BirthNot on fileLegal MntMytieu81/15/2023 7:27 PM EDTGender Identity Not on fileSexual OrientationNot on filedocumented as of this encounter Functional Status * AUDIT-C ScoreAnswerDate of VqxxqorqhpNehjvr889/25/2024 3:03 PM Clarisa Gupta MA * QuestionAnswerDate [...] 10:22 AM Clarisa Zarco MAPatient Health Questionnaire-2 Xcqyz394 10:22 AM Clarisa Gupta MA * QuestionAnswerDate [...] 10:22 AM Clarisa Gupta MAPatient Health Questionnaire-9 Kxbiz374 10:22 AM Clarisa Gupta MA * If [...] as of this encounter Procedures Procedure NamePriorityDate/TimeAssociated DiagnosisCommentsALL CBC WITH AUTO XZAEDopqkph81/15/2024 3:12 PM EST XR CHEST 2V03/25/2023 2:38 PM EST documented in this encounter Results * (ABNORMAL) ALL CBC WITH AUTO DIFF (03/25/2023 3:12 PM EST)ComponentValueRef RangeTest MethodAnalysis TimePerformed AtPathologist SignatureTBH WBC6.24.0 - 11.0 10 3/uLTBHTBH RBC3.99(L)4.20 - 5.40 10 6/uLTBHTBH HGB13.412.0 - 16.0 g/dL TBHTBH HCT42.336.0 - 48.0 %TBHTBH MEO224.0(H)81.0 - 99.0 fLTBHTBH MCH33.626.7 - 34.0 pgTBHTBH MCHC31.729.9 - 35.2 g/dLTBHTBH RDW14.011.0 - 15.0 %TBHTBH PLT 959109 - 450 10 3/uLTBHTBH MPV10.79.5 - 13.5 fLTBHNEUTROPHILS PERCENT AUTO58.2 43.0 - 75.0 %TBHLYMPHOCYTES PERCENT AUTO30.220.5 - 60.0 %TBHMONOCYTES PERCENT AUTO9.31.7 - 12.0 %TBHTBH EO %1.50.9 - 7.0 %TBHBASOPHILS PERCENT AUTO0.50.2 - 2.0 %TBHIMMATURE GRANULOCYTES PCT AUTO0.30.0 - 0.5 %TBHNEUTROPHILS ABSOLUTE AUTO3.61.4 - 6.5 10 3/uLTBHLYMPHOCYTES ABSOLUTE AUTO1.91.2 - 3.8 10 3/uLTBH MONOCYTES ABSOLUTE AUTO0.60.3 - 0.8 10 3/uLTBHTBH EO #0.10.0 - 0.7 10 3/uLTBH BASOPHILS ABSOLUTE AUTO0.00.0 - 0.1 10 3/uLTBHIMMATURE GRANULOCYTES ABS AUTO 0.020.00 - 0.03 10 3/uLTBHSpecimen (Source)Anatomical Location / Laterality Collection Method / VolumeCollection TimeReceived Time03/25/2023 3:12 PM EST 03/25/2023 3:13 PM EST Narrative [facility] - 03/25/2023 3:18 PM EST Authorizing ProviderResult TypeResult StatusLisa Aichholz NPCLINISYNCFinal ResultPerforming OrganizationAddressCity/State/ZIP CodePhone Number [facility] * XR CHEST 2V (03/25/2023 2:38 PM EST)Anatomical RegionLateralityModalityOther Specimen (Source)Anatomical Location / LateralityCollection Method / Volume Collection TimeReceived Time03/25/2023 2:38 PM EST Narrative 03/25/2023 2:40 PM EST [facility] ?[address] ? [place] [address] ?XRay Report ? Signed ? Patient: FRANKY SRINIVASAN I ?MR#: [id number] ?? : 1965 ?Acct:[id number] ?? Age/Sex: 57 / F ?ADM Date: 03/25/23 ?? Loc: LAB ? Attending Dr: Jaymie Phoenix SILICA DRY PRESS HELPER ? Ordering Physician: Jaymie Phoenix NP ?? Date of Service: 03/25/23 ?? Procedure(s): XR chest 2V ?? Accession Number(s): [id number] ? cc: Jaymie Phoenix NP ? [facility] ? [address] [place] [address] ? [place] [address] ? Patient Name: ?? FRANKY I QUYENJESS ? MRN: [facility]:[id number] ? date: 1965 ?Sex: F ?? Assigned Patient Location: LAB ?? Current Patient Location: LAB ?? Accession/Order Number: [id number] ?? Exam Date: 03/25/2023 ??14:25 ?Report Date: 03/25/2023 ??14:38 ? At the request of: ?? JAYMIE PHOENIX ? Procedure: ??XR chest 2V ? EXAMINATION: XR chest 2V ? HISTORY: Edema Of Right Lower Extremity R60.0 wheezing, shortness of breath ? COMPARISON: XR chest 01/08/2023 ? FINDINGS: ?? LUNGS: Mild haziness within the lung bases partially obscuring the ?? bronchovascular markings. Lungs are well expanded. ?? VASCULATURE: No increased pulmonary vasculature. ?? PLEURA: No pneumothorax, effusion, or pleural thickening. ?? CARDIAC: Stable cardiomegaly. ?? MEDIASTINUM: No visible mass or adenopathy. ?? BONES: No fracture or visible bone lesion. ?? OTHER: Negative. ? XR/XR chest 2V ?? IMPRESSION: ? 1. Trace amount of bibasilar atelectasis versus infiltrates; new since prior ?? study. ? Electronically authenticated by: GURWINDER ??CHET ?? Date: 03/25/2023 ??14:38 ? Dictated By: ?Gurwinder Day M.D. ? Signed By: ?03/25/23 1440 ? DD/ 1438 ? TD/TT: ? Copyright Expert: Procedure Note Radiology, Radiologist, MD - 03/25/2023 [place] [address] XRay Report Signed Patient: FRANKY SRINIVASAN IMR#: [id number] : 1965Acct:[id number] Age/Sex: 57 / FADM Date: 03/25/23 Loc: LAB Attending Dr: Jaymie Phoenix NP Ordering Physician: Jaymie Phoenix NP Date of Service: 03/25/23 Procedure(s): XR chest 2V Accession Number(s): [id number] cc: Jaymie Phoenix NP The [place] [id number] Patient Name: FRANKY SIRNIVASAN MRN: [facility]:[id number] date: 1965 Sex: F Assigned Patient Location: LAB Current Patient Location: LAB Accession/Order Number: [id number] Exam Date: 03/25/2023 14:25 Report Date: 03/25/2023 [...] M.D. Signed By:03/25/23 1440 DD/ 1438 TD/TT: Copyright Expert: Authorizing ProviderResult TypeResult StatusLisa [facility] NPCLINISYNC IMAGING Final Result documented in this encounter Visit Diagnoses Not on filedocumented in this encounter Care Teams Team MemberRelationshipSpecialtyStart DateEnd Date WillwShaikh rodriguez MD PCP - GeneralInternal Medicine Rohan Rodríguez MD PCP - GeneralFamily Medicine Rohan Rodríguez MD PCP - GeneralFamily Medicine05/13/23 Jaymie Phoenix NP Nurse PractitionerFamily Gjibubbt31/19/23 Jaymie Phoenix NP Nurse PractitionerFamily Medicine05/13/23documented as of this encounter
--- OUTSIDE RECORDS SUMMARY | 2024-12-11 06:49 | XMS_ITS | Encounter Summary ---
Author Organization [facility] Address [address] [facility] [place] [address] Care Team Providers Care Creative Services Intern Name Role Phone Jaymie Phoenix TELEPHONE COIN BOX COLLECTOR Unavailable [phone] Rohan Rodríguez MD Primary Care Provider [phone] Jaymie Phoenix TELEPHONE COIN BOX COLLECTOR Unavailable [phone] Encounter Details DateTypeDepartmentCare Team (Latest Contact Info)Nwjqrukqkme26/27/2024Clinisync Result Encounter [facility] Unsolicited Jaymie Phoenix NP [address] [place] [address] Social History Tobacco UseTypesPacks/DayYears UsedDateSmoking Tobacco: Every OwhZvhrwxwgzv453 Smokeless Tobacco: Never Comments:11-20 cigarettes/da y Alcohol [...] relatives?Twice a week05/13/2023How often do you attend mandaen or faith services?Never05/13/2023o you belong to any clubs or organizations such as mandaen groups, unions, fraternal or athletic groups, or school groups?No 05/13/2023How often do you attend meetings of the clubs or organizations you belong to?Never05/13/2023re you , , , , never , or living with a partner?Nwoknpw7505/13/2023UDIT-CAnswerDate RecordedQ1: How often do you have a [...] care, and heating?Somewhat hard05/13/2023HQ-2AnswerDate RecordedPatient Health Questionnaire-2 Dksbp494Finriverton hospital [facility] of Occupational Health - Occupational Stress QuestionnaireAnswerDate RecordedDo you feel stress - tense, restless, nervous, or anxious, or unable to sleep at night because your mind is troubled all the time - these days?Only a yqgkxt7105/13/2023Exercise Vital SignAnswerDate RecordedOn average, how many days [...] InformationValueDate RecordedSex Assigned at BirthNot on fileLegal YxlSmbtxv36/15/2023 7:27 PM EDTGender Identity Not on fileSexual OrientationNot on filedocumented as of this encounter Functional Status * AUDIT-C ScoreAnswerDate of JsuglvbpepOdqoav853/25/2024 3:03 PM Clarisa Gupta MA * QuestionAnswerDate [...] AM EDT Clarisa Varma MAPatient Health Questionnaire-2 Qxtag950 10:22 AM Clarisa Gupta MA * QuestionAnswerDate [...] 10:22 AM Clarisa Gupta MAPatient Health Questionnaire-9 Rapvi882 10:22 AM Clarisa Gupta MA * If [...] as of this encounter Procedures Procedure NamePriorityDate/TimeAssociated DiagnosisCommentsCA ECHO DOPPLER EZQTEBGR65/27/2024 4:42 PM EDT documented in this encounter Results * CA ECHO DOPPLER COMPLETE (05/05/2023 4:42 PM EDT)Anatomical RegionLaterality ModalityOtherSpecimen (Source)Anatomical Location / LateralityCollection Method / VolumeCollection TimeReceived Time05/05/2023 4:42 PM EDT Narrative 05/05/2023 4:43 PM EDT [facility] ?[address] ? [place] [address] ? Cardiology Report ? Signed ? Patient: FRANKY SRINIVASAN ?MR#: [id number] ?? : 1965 ?Acct:[id number] ?? Age/Sex: 57 / F ?ADM Date: 05/05/23 ?? Loc: CARD ? Attending Dr: Jaymie Phoenix NP ? Ordering Physician: Jaymie Phoenix NP ?? Date of Service: 05/05/23 ?? Procedure(s): CA echo doppler complete ?? Accession Number(s): [id number] ? cc: Jaymie Phoenix NP ? Patient Name: ? FRANKY SRINIVASAN ? MR#: [id number] ? : 1965 ? Exam Date: 05/05/2023 ?? Ordering Doctor: MEREDITH Phoenix CNP ? ECHOCARDIOGRAM REPORT ? PROCEDURE: ? CA ECHO DOPPLER COMPLETE ? INDICATIONS: ? Bilateral lower extremity edema, COPD, primary hypertension ? COMPARISON: ? None. ? DESCRIPTION: ? COMPLETE ECHOCARDIOGRAM Real-time transthoracic ?? echocardiography with 2D, M-mode, spectral and color flow Doppler performed. ? QUALITY: ? Technical quality was adequate. ? LEFT VENTRICLE: ? Normal chamber size. Mild concentric left ventricular ?? hypertrophy. Global left ventricular systolic function is normal. ?? LV EF: ? Estimated left ventricular ejection fraction is 65%. ?? DIASTOLIC: ? Diastolic function is indeterminate. ?? ATRIAL SEPTUM: ? LEFT ATRIUM: ? Normal chamber size. ?? RIGHT ATRIUM: ? Mild dilatation. ?? RIGHT VENTRICLE: ? Normal chamber size. Normal right ventricular systolic ?? function. ? TRICUSPID VALVE: ? Normal mobility and thickness. No stenosis with trivial ?? regurgitation. Mild pulmonary hypertension. RVSP 36 mmHg. ? MITRAL VALVE: ? Normal mobility and thickness. ?? No evidence of mitral valve ?? stenosis. ??There is no mitral annular calcification. Trivial mitral ?? regurgitation. ? AORTIC VALVE: ? Normal trileaflet appearance. No visible sclerosis. ??Normal ?? leaflet mobility. ??No evidence of aortic valve stenosis. No aortic ?? regurgitation. ? AORTIC ROOT: ? Normal diameter and appearance. ? PULMONIC VALVE: ? Normal thickness and mobility. No stenosis. Trivial ?? regurgitation. ? PERICARDIUM: ? Trivial pericardial effusion. ? IVC: ? Collapses with inspirations. Normal size. ? PLEURA: ? CONCLUSION: ? 1. Mild concentric left ventricular hypertrophy with normal systolic function. ?? Estimated LVEF is 65%. ?? 2. Normal right ventricular size and systolic function. ?? 3. No significant valvular dysfunction. ?? 4. Mildly elevated right-sided pressures. ? Adult Echocardiography Procedure Report ?? Left Ventricle ?? LVEDD (3.7 - 5.6 cm): ? 4.62 cm ?? LVESD (2.2 - 4.0 cm): ? 3.22 cm ?? LVIVS thickness (0.6 - 1.2 cm): ? 1.18 cm ?? LVPW thickness (0.5 - 1.0 cm): ? 1.08 cm ?? e': ? 0.08 m/s ?? E - e': ? 11.45 ?? LVOT Max Gradient: ? 3.58 mm[Hg] ?? LVOT Area (cm2): ? 0.95 m/s ?? Peak Velocity (LVOT): ? 0.95 m/s ?? Mean Velocity (LVOT): ? 0.63 m/s ?? LVOT Diameter ? 2.24 cm ?? Left Ventricular Ejection Fraction: ? 65 % ?? Left Atrium ?? LA Volume Index (2D A2C): ? 28.01 ml/m2 ?? Left Atrium Systolic Dimension: ? 3.58 cm ?? Mitral Valve ?? MV E to A Ratio: ? 1.05 ?? Mitral Valve A-Wave Peak Velocity: ? 0.93 m/s ?? Mitral Valve E-Wave Peak Velocity: ? 0.97 m/s ?? Right Ventricle ?? RV Internal Diastolic Dimension: ? 3.48 cm ?? Aorta ?? AO Root Diam: ? 3.25 cm ?? Ascending Ao Diam: ? 2.65 cm ?? Aortic Valve ?? AoV Area (Peak Jan): ? 3.95 cm2, 3.95 cm2 ?? AoV Area (VTI): ? 3.55 cm2, 3.55 cm2 ?? Peak Velocity(Antegrade Flow): ? 0.95 m/s ?? Peak Gradient(Antegrade Flow): ? 3.58 mm[Hg] ?? Mean Velocity(Antegrade Flow): ? 0.65 m/s ?? Mean Gradient(Antegrade Flow): ? 1.91 mm[Hg] ?? Velocity Time Integral: ? 21.75 cm ?? Tricuspid Valve ?? Peak Velocity (Regurgitant Flow): ? 2.29 m/s, 2.89 m/s ?? Pulmonic Valve ?? Mean Gradient: ? 2.69 mm[Hg] ?? Mean Velocity: ? 0.78 m/s ?? Peak Velocity: ? 1.06 m/s, 0.92 m/s ?? Peak Gradient: ? 3.36 mm[Hg], 4.50 mm[Hg] ?? Right Atrium ?? Right Atrium Systolic Pressure: ? 35.70 ml, 35.70 ml ? Dictated by: Chetan Garcia M.D. on 05/05/2023 at 16:40 ? Approved by: Chetan Garcia M.D. on 05/05/2023 at 16:42 ? Dictated By: ?CHETAN GARCIA ? Signed By: ?05/04/ 1643 ? DD/ 1642 ? TD/TT: ? Optical Coating Technician: Procedure Note Radiology, Radiologist, MD - 03/27/2024 [place] [address] Cardiology Report Signed Patient: FRANKY SRINIVASANMR#: [id number] : 1965Acct:[id number] Age/Sex: 57 / FADM Date: 05/05/23 Loc: CARD Attending Dr: Jaymie Phoenix NP Ordering Physician: Jaymie Phoenix NP Date of Service: 05/05/23 Procedure(s): CA echo doppler complete Accession Number(s): [id number] cc: Jaymie Phoenix NP Patient Name: FRANKY SRINIVASAN MR#: [id number] : 1965 Exam Date: 05/05/2023 Ordering Doctor: MEREDITH Phoenix CNP ECHOCARDIOGRAM REPORT PROCEDURE: CA ECHO [...] Pressure: 35.70 ml, 35.70 ml Dictated by: Chetan Garcia M.D. on 05/05/2023 at 16:40 Approved by: Chetan Garcia M.D. on 05/05/2023 at 16:42 Dictated By: CHETAN GARCIA Signed By:05/05/231642 DD/ 41 TD/TT: Optical Coating Technician: Authorizing ProviderResult TypeResult StatusLisa Alban NPCLINISYNC IMAGING Final Result documented in this encounter Visit Diagnoses Not on filedocumented in this encounter Care Teams Team MemberRelationshipSpecialtyStart DateEnd Date Rohan Rodríguez MD PCP - GeneralFamily Medicine05/13/23 Jaymie Phoenix NP Nurse PractitionerFamily Mlalktyr28/19/23 Jaymie Phoenix NP Nurse PractitionerFamily Medicine05/13/23documented as of this encounter
--- OUTSIDE RECORDS SUMMARY | 2024-12-11 06:49 | XMS_ITS | CCD ---
Author Organization [facility] Care Team Providers Care Commercial Loan Specialist Name Role Phone JAYMIE PHOENIX Primary Care Physician Bryson FERRER Attending Unavailable JAYMIE PHOENIX J Referring Unavailabl e NILL, Bryson Hernandez Attending Unavailable Aichholz, Tracy L Referring Unavailable NILL, Bryson Hernandez Attending Unavailable NILL, Bryson Hernandez Attending Unavailable NILL, Bryson Hernandez Attending Unavailable AICHHOLZ, DRYING TUNNEL OPERATOR JAYMIE Primary Care Unavailable ALLAN ., DR JIM Mcdonnell Attending Unavailable ALLAN ., DR JIM Mcdonnell Admitting Unavailable ALLAN ., DR JIM Mcdonnell Consulting Unavailable ROBINSON ., GLENROY Admitting Unavailable ROBINSON ., GLENROY Attending Unavailable SJ SOLER Consulting Unavailable AICHHOLZ, DRYING TUNNEL OPERATOR JAYMIE Primary Care Unavailable MENDEZ ., MR DEMETRIUS Admitting Unavailable MENDEZ ., MR DEMETRIUS Attending Unavailable AICHHOLZ, DRYING TUNNEL OPERATOR JAYMIE Primary Care Unavailable AICHHOLZ, DRYING TUNNEL OPERATOR JAYMIE Admitting Unavailable JUANITA, DR NADINE Caldwell Consulting Unavailable AICHHOLZ, DRYING TUNNEL OPERATOR JAYMIE Primary Care Unavailable AICHHOLZ, DRYING TUNNEL OPERATOR JAYMIE Attending Unavailable AICHHOLZ, DRYING TUNNEL OPERATOR JAYMIE Consulting Unavailable AICHHOLZ, DRYING TUNNEL OPERATOR JAYMIE Admitting Unavailable JUANITA, DR NADINE Caldwell Consulting Unavailable AICHHOLZ, DRYING TUNNEL OPERATOR JAYMIE Primary Care Unavailable AICHHOLZ, DRYING TUNNEL OPERATOR JAYMIE Attending Unavailable AICHHOLZ, DRYING TUNNEL OPERATOR JAYMIE Consulting Unavailable AICHHOLZ, DRYING TUNNEL OPERATOR JAYMIE Primary Care Unavailable NILL ., DR MASSEY Admitting Unavailable NILL ., DR MASSEY Attending Unavailable NILL ., DR MASSEY Consulting Unavailable SONDRA FELICIANO Consulting Unavailable ROBINSON ., GLENROY Admitting Unavailable ROBINSON ., GLENROY Attending Unavailable ROBINSON ., GLENROY Consulting Unavailable AICHHOLZ, DRYING TUNNEL OPERATOR JAYMIE Primary Care Unavailable ALLAN ., DR JIM Mcdonnell Attending Unavailable ALLAN ., DR JIM Mcdonnell Consulting Unavailable ALLAN ., DR JIM Mcdonnell Admitting Unavailable AICHHOLZ, DRYING TUNNEL OPERATOR JAYMIE Primary Care Unavailable MARIA FERNANDA SOSA Consulting Unavailable ALLAN ., DR JIM Mcdonnell Attending Unavailable ALLAN ., DR JIM Mcdonnell Consulting Unavailable ALLAN ., DR JIM Mcdonnell Admitting Unavailable AICHHOLZ, DRYING TUNNEL OPERATOR JAYMIE Primary Care Unavailable ALLAN ., DR JIM Mcdonnell Admitting Unavailable ALLAN ., DR JIM Mcdonnell Attending Unavailable ALLAN ., DR JIM Mcdonnell Consulting Unavailable AICHHOLZ, DRYING TUNNEL OPERATOR JAYMIE Primary Care Unavailable ALLAN ., DR JIM Mcdonnell Admitting Unavailable ALLAN ., DR JIM Mcdonnell Attending Unavailable AICHHOLZ, DRYING TUNNEL OPERATOR JAYMIE Primary Care Unavailable THORNE ., JENNY Consulting Unavailable ALLAN ., DR JIM Mcdonnell Admitting Unavailable ALLAN ., DR JIM Mcdonnell Attending Unavailable ALLAN ., DR JIM Mcdonnell Consulting Unavailable AICHHOLZ, DRYING TUNNEL OPERATOR JAYMIE Primary Care Unavailable ALLAN ., DR JIM Mcdonnell Admitting Unavailable ALLAN ., DR JIM Mcdonnell Attending Unavailable ALLAN ., DR JIM Mcdonnell Consulting Unavailable AICHHOLZ, DRYING TUNNEL OPERATOR JAYMIE Primary Care Unavailable THORNE ., JENNY Consulting Unavailable ALLAN ., DR JIM Mcdonnell Admitting Unavailable ALLAN ., DR JIM Mcdonnell Attending Unavailable AICHHOLZ, DRYING TUNNEL OPERATOR JAYMIE Primary Care Unavailable ALLAN ., DR JIM Mcdonnell Attending Unavailable ALLAN ., DR JIM Mcdonnell Consulting Unavailable ALLAN ., DR JIM Mcdonnell Admitting Unavailable AICHHOLZ, DRYING TUNNEL OPERATOR JAYMIE Primary Care Unavailable LAKSHMIPATHY ., NARENDRANEDWAR Consulting Evelyn vailable NILL ., DR MASSEY Consulting Unavailable NILL ., DR MASSEY Admitting Unavailable AICHHOLZ, DRYING TUNNEL OPERATOR JAYMIE Primary Care Unavailable NILL ., DR MASSEY Attending Unavailable AICHHOLZ, DRYING TUNNEL OPERATOR JAYMIE Admitting Unavailable AICHHOLZ, DRYING TUNNEL OPERATOR JAYMIE Attending Unavailable AICHHOLZ, DRYING TUNNEL OPERATOR JAYMIE Consulting Unavailable AICHHOLZ, DRYING TUNNEL OPERATOR JAYMIE Primary Care Unavailable DR MELISSA ROSENBERG Consulting Unavailable AICHHOLZ, DRYING TUNNEL OPERATOR JAYMIE Admitting Unavailable AICHHOLZ, DRYING TUNNEL OPERATOR JAYMIE Attending Unavailable AICHHOLZ, DRYING TUNNEL OPERATOR JAYMIE Consulting Unavailable AICHHOLZ, DRYING TUNNEL OPERATOR JAYMIE Primary Care Unavailable LORI FROST Consulting Unavailable ALLAN ., DR JIM Mcdonnell Attending Unavailable ALLAN ., DR JIM Mcdonnell Admitting Unavailable AICHHOLZ, DRYING TUNNEL OPERATOR JAYMIE Primary Care Unavailable AICHHOLZ, DRYING TUNNEL OPERATOR JAYMIE Primary Care Unavailable SAMSA ., MAGDALENA Admitting Unavailable SAMSA ., MAGDALENA Attending Unavailable SAMSA ., MAGDALENA Consulting Unavailable ALLAN ., DR JIM Mcdonnell Attending Unavailable ALLAN ., DR JIM Mcdonnell Admitting Unavailable ALLAN ., DR JIM Mcdonnell Consulting Unavailable AICHHOLZ, DRYING TUNNEL OPERATOR JAYMIE Primary Care Unavailable AICHHOLZ, DRYING TUNNEL OPERATOR JAYMIE Admitting Unavailable AICHHOLZ, DRYING TUNNEL OPERATOR JAYMIE Attending Unavailable AICHHOLZ, DRYING TUNNEL OPERATOR JAYMIE Consulting Unavailable AICHHOLZ, DRYING TUNNEL OPERATOR JAYMIE Primary Care Unavailable Aichholz RAILROAD CAR CLEANING SUPERVISOR, Jaymie Unavailable Alma AMADOR, Sequeira Primary Care Provider Aichholz RAILROAD CAR CLEANING SUPERVISOR, Jaymie Unavailable Anne AMADOR, Rohan Primary Care Provider Aichholz RAILROAD CAR CLEANING SUPERVISOR, Jaymie Unavailable Alphonse Damian Attending Unavailab le Alphonse Damian Admitting Unavailab le Aichholz, Jaymie J Primary Care Unavailable SAUMYA BACK Attending Unavailable AICHHOLZ, JAYMIE Referring Unavailable AICHHOLZ, JAYMIE Attending Unavailable NAT HENDERSON Attending Unavailable AICHHOLZ, JAYMIE Attending Unavailable AICHHOLZ, JAYMIE Attending Unavailable Aichholz RAILROAD CAR CLEANING SUPERVISOR-C, Jaymie J Primary Care Provider Alphonse Damian MD Attending Provider Aichholz RAILROAD CAR CLEANING SUPERVISOR-C, Jaymie Danielle Attending Provider [phone] Mayela Merchant MD Attending Unavailable Aichholz RAILROAD CAR CLEANING SUPERVISOR, Jaymie Unavailable Alma AMADOR, Sequeira Primary Care Provider Anne AMADOR, Rohan Primary Care Provider Anne AMADOR, Rohan Primary Care Provider Aicholervin RAILROAD CAR CLEANING SUPERVISOR, Jaymie Unavailable Allergies Allergy ClassificationReported Allergen(s)Allergy TypeDate of OnsetReaction(s) Facility (20 sources)Penicillins; Translations: [penicillins]Drug bordpur28-88-9968 Dyspnea (finding), Weal (disorder), Hives, Shortness of breath, SwellingGeneral [facility] [place] (3 sources)predniSONE; Translations: [prednisone]Drug [id number] (finding)[facility] [place] (1 source)prednisoLONEDrug AllergyThe [facility] (20 sources)PrednisonePropensity to adverse [id number] (9 sources)PenicillinDrug Unpilni07-53-3727FlpoaXuavuqmwyWVUMedicine Barnesville HospitalComment on above:shortness of breath Medications Current Medications MedicationDrug Class(es)DatesSig (Normalized)Sig (Original)acetaminophen 325 mg / HYDROcodone bitartrate 5 mg oral tablet (3 sources)Opioid AgonistStart: 08-29-2024 End: 08-43-4940stnm 1 tablet by mouth onceHYDROcodone-acetaminophen (Gatzke) 5- 325 MG tablet Indications: Acute back pain with sciatica, unspecified laterality Take 1 tablet by mouth every 12 (twelve) hours if needed for severe pain for up to10 days 20 tablet 08/29/2024 09/08/2024 Activealbuterol 0.83 mg/ml inhalation solution (20 sources)beta2-Adrenergic AgonistStart: 67-22-3576jijs 2.5 mg by inhalation every four to six hours as neededAlbuterol Sulfate 2.5 mg /3 mL (0.083 %) solution for nebulization Active 2.5 MG INHALATION EVERY 4-6 HOURS as needed October 28, 2024 12:00am Complies with drug therapyStart: 10-76-8757iguk 1 puff(s) by inhalation every six hours as neededAlbuterol Sulfate 90 mcg/actuation HFA aerosol inhaler Active 2 PUFF INHALATION Every 6 hours as nee ded October 28, 2024 12:00am Complies with drug therapyStart: 04-19-2024 End: 14-21-7155iyfm 2 puff(s) by inhalation every six hours for wheezing albuterol HFA 90 mcg/act inhaler Indications: COPD mixed type (HCC) Inhale 2 puffs every 6 (six) hours if needed for shortness of breath or wheezing 18 g 04/19/2024 ActiveStart: 19-26-4086fypfjqxka (2.5 MG/3ML) 0.083% nebulizer solution Take 2.5 mg by nebulization every 6 (six) hours ifneeded for shortness of breath or wheezing 12/24/2023 Activealbuterol 0.833 mg/ml / ipratropium bromide 0.167 mg/ml inhalation solution (20 sources)Anticholinergic, beta2-Adrenergic AgonistStart: 19-51-5340lgcj 1 mL by inhalation every four to six hours as neededIpratropium-Albuterol 0.5 mg-3 mg(2.5 mg base)/3 mL solution for nebulization Active 3 ML INHALATION EVERY 4-6 HOURS as needed October 28, 2024 12:00am Complies with drug therapyStart: 14-28-2422tkbpgcdcwzr-albuterol (Duo-Neb) 0.5-2.5 mg/3 mL nebulizer solution Take 3 mL by nebulization every 6 (six) hours if needed for wheezing or shortness of breath 12/28/2023 Activeamitriptyline hydrochloride 100 mg oral tablet (20 sources)Tricyclic AntidepressantStart: 95-98-3556Zmfqarupowtpw 100 mg tablet Active 50 MG PO Daily at bedtime October 28, 2024 12:00am Complies with drug therapyStart: 01-26-2024 End: 19-63-5766ougt 0.5 tablet by mouth at bedtimeamitriptyline (Elavil) 100 MG tablet Indications: Fibromyalgia Take 0.5 tablets (50 mg) by mouth atbedtime 45 tablet 1 07/31/2024 10/29/2024 ActiveStart: 05-05-2023 End: 38-75-6867rgaq 0.5 tablet by mouth at bedtimeamitriptyline (Elavil) 100 MG tablet Indications: Fibromyalgia Take 0.5 tablets (50 mg) by mouth atbedtime 45 tablet 1 10/26/2023 ActiveStart: 67-49-2868bkfoqyfnpmaom 100 mg oral tablet 50 mg = 0.5 tab(s), Oral, Once a day (at bedtime), Refills(s) 0 Start Date: 01/22/22 Status: Ordered End: 08-84-7561zgzs 1 tablet by mouth at bedtimeamitriptyline (Elavil) 50 MG tablet Take 50 mg by mouth at bedtime 01/03/2024 Discontinued (Therapycompleted) atorvastatin 20 mg oral tablet (20 sources)HMG-CoA Reductase InhibitorStart: 04-10-2024 End: 84-82-5233hyyj 1 tablet by mouth once daily at bedtimeAtorvastatin 20 mg tablet Active 20 MG PO Daily at bedtime October 28, 2024 12:00am Complies with drug therapyStart: 05-18-2023 End: 47-83-0828ounp 1 tablet by mouth at bedtimeatorvastatin (Lipitor) 20 MG tablet Indications: Mixed hyperlipidemia (CMS/HCC) Take 1 tablet (20 mg) by mouth at bedtime 30 tablet 3 01/03/2024 ActiveStart: 02-28-2023 End: 66-52-1159ijla 1 tablet by mouth in the eveningatorvastatin (Lipitor) 20 MG tablet Indications: Mixed hyperlipidemia (CMS/HCC) Take 1 tablet (20 mg) by mouth in the evening 30 tablet 2 02/28/2023 03/30/2023 Fwiwzi964 actuat budesonide 0.16 mg/actuat / formoterol fumarate 0.0048 mg/actuat / glycopyrrolate 0.009 mg/actuat metered dose inhaler (20 sources)Corticosteroid, beta2-Adrenergic AgonistStart: 10-28-2024 Ahudcjphbx-Fnarpjdx-Exdobpkmck (Breztri Aerosphere) 160-9-4.8 mcg/actuation HFA aerosol inhaler Active 2 INH INHALATION Twice daily October 28, 2024 12:00am Complies with drug therapyStart: 07-31-2024 End: 38-13-9353vedw 2 puff(s) by inhalation in the morning, then take 2 puff(s) by inhalation at bedtime, then take 2 puff(s) by inhalation in the morning, then take 2 puff(s) by inhalation at ftzywxmSptgval-Boramnyxfwl-Wypptkekrm (Breztri Aerosphere) 160-9-4.8 MCG/ACT aerosol Indications: COPD mixed type (HCC) Inhale 2 puffs in the morning and 2 puffs before bedtime. Inhale 2 puffs in the morning and 2 puffs before bedtime. 32 g 1 07/31/2024 10/29/2024 ActiveStart: 09-29-2022 End: 37-53-9956bjgw 2 puff(s) by inhalation in the morningBrechantelli Aerosphere 160-9-4.8 MCG/ACT aerosol Inhale 2 puffs in the morning and 2 puffs before bedtime. 09/29/2022 07/31/2024 Discontinued (Reorder)bumetanide 0.5 mg oral tablet (20 sources)Loop DiureticStart: 99-86-5550bwts 1 tablet by mouth once daily Bumetanide 0.5 mg tablet Active 0.5 MG PO Daily October 28, 2024 12:00am only MWF Complies withdrug therapyStart: 06-07-2023 End: 28-26-2981wdwzoiroay (Bumex) 0.5 MG tablet Indications: Bilateral lower extremity edema Take M W F only 27 tablet 1 07/31/2024 ActiveStart: 03-25-2023 End: 90-02-9321emmj 1 tablet by mouth in the morningbumetanide (Bumex) 0.5 MG tablet Indications: Bilateral lower extremity edema Take 1 tablet (0.5 mg) by mouth in the morning for 14 days. 14 tablet 0 03/25/2023 04/08/2023 Active cetirizine hydrochloride 10 mg oral tablet (18 sources)Histamine-1 Receptor AntagonistStart: 04-19-2024 End: 44-99-0843fkic 1 tablet by mouth once dailyCetirizine 10 mg tablet Active 10 MG PO Daily October 28, 2024 12:00am Complies with drug therapy cholecalciferol 0.125 mg oral tablet (20 sources)Vitamin DStart: 45-82-5521vpnu 1 tablet by mouth once daily Cholecalciferol (Vitamin D3) 125 mcg (5,000 unit) tablet Active 125 MCG PO Daily October 28, 2024 12:00am Complies with drug therapycyclobenzaprine hydrochloride 5 mg oral tablet (3 sources)Muscle RelaxantStart: 72-19-5487rnxp 1 tablet by mouth every eight hours [...] mg oral tablet (20 sources)Nonsteroidal Anti-inflammatory DrugStart: 53-03-0700cutp 1 tablet by mouth every eight hours as neededibuprofen 800 MG tablet Take 800 mg by mouth every 8 (eight) hours if needed 01/08/2023 ActivelamoTRIgine 100 mg oral tablet (20 sources)Mood Stabilizer, Anti-epileptic AgentStart: 81-69-3239ciyn 1 tablet by mouth once dailyLamotrigine 200 mg tablet Active 200 MG PO Daily October 28, 2024 12:00am Complies with drug therapyStart: 10-39-2096zyxc 1 tablet by mouth once dailyLamotrigine 100 mg tablet Active 100 MG PO Daily October 28, 2024 12:00am Complies with drug therapyStart: 05-04-2023 End: 02-07-8194zras 1 tablet by mouth once dailylamoTRIgine (LaMICtal) 150 MG tablet Take 150 mg by mouth Daily 05/04/2023 01/03/2024 Discontinued (Therapy completed)Start: 37-36-9073vull 1 tablet by mouth once daily in the morning, then take 2 tablets by mouth once daily in the eveningLamictal 100 mg Tab 1 po QAM and 2 po QPM, Refills(s) 0 Start Date: 01/22/22 Status: OrderedlamoTRIgine (LaMICtal) 100 MG tablet Take 150 mg [...] tablet (20 sources)Nonsteroidal Anti-inflammatory DrugStart: 12-05-2023 End: 62-21-1588ndbq 1 tablet by mouth once dailyMeloxicam 15 mg tablet Active 15 MG PO Daily October 28, 2024 12:00am Complies with drug therapyStart: 03-15-2023 End: 14-40-6998rucm 1 tablet by mouth in the morningmeloxicam (Mobic) 15 MG tablet Indications: Fibromyalgia Take 1 tablet (15 mg) by mouth in the morning. 30 tablet 5 03/15/2023 04/14/2023 ActiveStart: 12-65-5703ffoq 1 tablet by mouth once dailymeloxicam 15 mg Tab 15 mg = 1 tab(s), Oral, Daily, Refills(s) 0 Start Date: 01/22/22 Status: Orderedmontelukast 10 mg oral tablet (20 sources)Leukotriene Receptor AntagonistStart: 08-24-2023 End: 45-30-9612ynjv 1 tablet by mouth once daily at bedtimeMontelukast 10 mg tablet Active 10 MG PO Daily at bedtime October 28, 2024 12:00am Complies with drug therapyomeprazole 40 mg delayed release oral capsule (20 sources)Proton Pump InhibitorStart: 05-05-2023 End: 43-66-5743yldc 1 capsule by mouth once dailyOmeprazole 40 mg capsule,delayed release(DR/EC) Active 40 MG PO Daily October 28, 2024 12:00am Complies with drug therapyStart: 77-88-1408dhgy 1 capsule by mouth once dailyomeprazole 40 mg Cap-DR 40 mg = 1 cap(s), Oral, Daily, Refills(s) 0 Start Date: 01/22/22 Status: Orderedprazosin 1 mg oral capsule (20 sources)alpha-Adrenergic BlockerStart: 92-40-0576eosf 1 capsule by mouth once daily at bedtimePrazosin 1 mg capsule Active 2 MG PO Daily at bedtime October 28, 2024 12:00am Complies with drug therapyStart: 28-61-6183lalg 1 capsule by mouth at bedtimeprazosin (Minipress) 1 MG capsule Take 1 mg by mouth at bedtime 11/16/2023 ActiveStart: 53-79-1450kuif 1 capsule by mouth once daily at bedtimePrazosin 2 mg capsule Active 2 MG PO Daily at bedtime October 28, 2024 12:00am Complies with drug therapypregabalin 100 mg oral capsule (20 sources)Start: 76-13-1855bybw 1 capsule by mouth three times dailyPregabalin 100 mg capsule Active 100 MG PO Three times daily October 28, 2024 12:00am Complies with drug therapyStart: 12-31-2023 End: 04-61-7777piik 1 capsule by mouth in the morningpregabalin (Lyrica) 100 MG capsule Indications: Fibromyalgia Take 1 capsule (100 mg) by mouth in the morning and 1 capsule (100 mg) before bedtime. 60 capsule 2 07/31/2024 Active Start: 68-52-7569fgie 1 capsule by mouth in the morningpregabalin (Lyrica) 100 MG capsule Indications: Fibromyalgia Take 1 capsule (100 mg) by mouth in the morning and 1 capsule (100 mg) before bedtime. 60 capsule 5 06/28/2023 Active Start: 46-44-1916oore 1 capsule by mouth twice dailypregabalin (Lyrica) 100 MG capsule Indications: Fibromyalgia TAKE 1 CAPSULE BY MOUTH TWICE DAILY 60capsule 5 01/06/2023 ActiveStart: 88-84-6461fszi 1 capsule by mouth twice daily pregabalin 100 mg Cap 100 mg = 1 cap(s), Oral, BID, Refills(s) 0 Start Date: 01/22/22 Status: Orderedpropranolol hydrochloride 40 mg oral tablet (20 sources)beta-Adrenergic BlockerStart: 01-26-2024 End: 65-69-9028cdte 1 tablet by mouth twice dailyPropranolol 40 mg tablet Active 40 MG PO Twice daily October 28, 2024 12:00am Complies with drug therapy Start: 12-25-2023 End: 63-57-2089ntfy 1 tablet by mouth in the morningpropranolol (Inderal) 40 MG tablet Indications: Personal history of other diseases of the nervous system and sense organs Take 1 tablet (40 mg) by mouth in the morning and 1 tablet (40 mg) before bedtime. 60 tablet 1 12/25/2023 ActiveStart: 97-75-9491chiv 1 tablet by mouth in the morningpropranolol (Inderal) 40 MG tablet Indications: Personal history of other diseases of the nervous system and sense organs Take 1 tablet (40 mg) by mouth in the morning and 1 tablet (40 mg) before bedtime. 60 tablet 5 06/28/2023 ActiveStart: 57-38-2779rlpy 1 tablet by mouth twice dailypropranolol (Inderal) 40 MG tablet Indications: Personal history of other diseases of the nervous system and sense organs TAKE 1 TABLET BY MOUTH TWICE DAILY 60 tablet 5 01/06/2023 ActiveStart: 72-03-8375bzgw 1 tablet by mouth twice dailypropranolol 40 mg Tab 40 mg = 1 tab(s), Oral, BID, Refills(s) 0 Start Date: 01/22/22 Status: OrderedQUEtiapine 300 mg oral tablet (20 sources)Atypical AntipsychoticStart: 28-74-1149zpwm 1 tablet by mouth once daily at bedtimeQuetiapine 300 mg tablet Active 300 MG PO Daily at bedtime October 28, 2024 12:00am Complies with drug therapyStart: 66-00-5078lyod 1 tablet by mouth at bedtimeQUEtiapine (SEROquel) 300 MG tablet Take 300 mg by mouth at bedtime 05/11/2024 ActiveStart: 01-22-2022 End: 52-04-1570TCIJawex 100 mg Tab 1 tabs QAM and 4 tabs qpm, Refills(s) 0 Start Date: 01/22/22 Status: Ordered End: 54-40-1526kbsj 1 tablet by mouth at bedtimeQUEtiapine (SEROquel) 400 MG tablet Take 400 mg by mouth at bedtime 07/31/2024 Discontinuedsimvastatin 40 mg oral tablet (1 source)HMG-CoA Reductase InhibitorStart: 74-77-6329rnls 1 tablet by mouth once daily at bedtimesimvastatin 40 mg Tab 40 mg = 1 tab(s), Oral, Once a day (at bedtime), Refills(s) 0 Start Date: 01/22/22 Status: Orderedspironolactone 50 mg oral tablet (20 sources)Aldosterone AntagonistStart: 01-26-2024 End: 43-94-2405icei 1 tablet by mouth once dailySpironolactone 50 mg tablet Active 50 MG PO Daily October 28, 2024 12:00am Complies with drug therapy Start: 83-29-4348idex 1 tablet by mouth in the morningspironolactone (Aldactone) 50 MG tablet Indications: Localized edema Take 1 tablet (50 mg) by mouthin the morning. 30 tablet 5 09/24/2023 ActiveStart: 03-15-2023 End: 30-64-2548bkgc 1 tablet by mouth in the morningspironolactone (Aldactone) 50 MG tablet Indications: Localized edema Take 1 tablet (50 mg) by mouthin the morning. 30 tablet 5 03/15/2023 04/14/2023 ActiveStart: 71-03-0259vzhd 1 tablet by mouth once dailyAldactone 50 mg Tab 50 mg = 1 tab(s), Oral, Daily, Refills(s) 0 Start Date: 01/22/22 Status: OrderedtiZANidine 4 mg oral tablet (20 sources)Central alpha-2 Adrenergic AgonistStart: 40-15-6050isvz 1 tablet by mouth every twelve hours as neededTizanidine 4 mg tablet Active 4 MG PO Every 12 hours as needed for muscle spasticity October 28, 2024 12:00am Complies with drug therapyStart: 01-03-2024 End: 82-61-1211vpbl 1 tablet by mouth oncetiZANidine (Zanaflex) 4 MG tablet Indications: Fibromyalgia Take 1 tablet (4 mg) by mouth every 12 (twelve) hours if needed for muscle spasms 60 tablet 2 09/29/2024 10/29/2024 ActiveStart: 05-05-2023 End: 07-18-6078bkqa 1 tablet by mouth every eight hours for muscle spasms tiZANidine (Zanaflex) 4 MG tablet Indications: Fibromyalgia Take 1 tablet (4 mg) by mouth every 8 (eight) hours if needed for muscle spasms 90 tablet 5 10/26/2023 11/25/2023 ActiveStart: 34-02-7556vibn 1 tablet by mouth every eight hours as needed for muscle spasmstiZANidine 4 mg Tab 4 mg = 1 tab(s), Oral, q8hr, PRN Spasm, Refills(s) 0 Start Date: 01/22/22 Status: Orderedtake 1 tablet by mouth once dailytiZANidine (Zanaflex) 4 MG tablet Take 4 mg by mouth 1 (one) time each day 0 Activevarenicline 1 mg oral tablet (20 sources)Partial Cholinergic Nicotinic AgonistStart: 23-55-7479jidh 1 tablet by mouth twice dailyVarenicline Tartrate 1 mg tablet Active 1 MG PO Twice daily October 28, 2024 12:00am Complies with drug therapyStart: 07-31-2024 End: 03-62-6242xihy 1 tablet by mouth twice dailyVarenicline Tartrate, Starter, 0.5 MG X 11 & 1 MG X 42 tablet therapy pack Indications: Tobaccodependence Take 1 tablet by mouth Daily 0.5mg once a day for 3 days, then 0.5mg twice a day for 4 days, then 1mg twice a day 53 each 08/06/2024 ActiveStart: 06-26-2024 End: 80-39-8459ruue 1 tablet by mouth once dailyVarenicline Tartrate, Starter, (Chantix Starting Month ) 0.5 MG X 11 & 1 MG X 42 tablet therapy pack Indications: Tobacco dependence Take 1 tablet by mouth Daily Take as directed 53 each 07/31/2024 08/06/2024 DiscontinuedVitamin D3 5000 intl units (125 mcg) oral tab (1 source)Start: 77-65-5009beyn 1 tablet by mouth once dailyVitamin D3 5000 intl units (125 mcg) oral tab 125 mcg = 1 tab(s), Oral, Daily, Refills(s) 0 Start Da te: 01/22/22 Status: Ordered Problems Active Problems Problem ClassificationProblemDateDocumented DateEpisodic/ChronicAnxiety disorders (20 sources)Mixed anxiety and depressive disorder; Translations: [Anxiety disorder, unspecified]Onset: 02-18-2023 Resolved: [id number] kidney disease (20 sources)Chronic kidney disease stage 3A ; Translations: [Chronic kidney disease, stage 3a (HCC)]Onset: 06-07-2024 Resolved: [id number] obstructive pulmonary disease and bronchiectasis (20 sources)Chronic obstructive pulmonary disease, unspecified; Translations: [Chronic obstructive lung disease]Onset: 05-29-2022 Resolved: 52-50-7977UkqdnbdVngclvg obstructive pulmonary disease and bronchiectasis (1 source)Bronchitis, not specified as acute or chronic; Translations: [BRONCHITIS NOT SPEC ACUTE/CHRON]Onset: 82-96-8425ChqkdlipXqjhwcplmq and other anemia (1 source)Other megaloblastic anemias, not elsewhere classified; Translations: [OTHER MEGALOBLASTIC ANEMIAS NEC]Onset: 76-47-4711FymdvcopDhcqxlhj mellitus without complication (4 sources)Hyperglycemia, unspecified; Translations: [HYPERGLYCEMIA UNSPECIFIED] Onset: 19-01-4558JgbzndqtIzxiifyjg of lipid metabolism (20 sources)Hyperlipidemia; Translations: [Hyperlipidemia, unspecified]Onset: 05-08-2022 Resolved: [id number]f disorders (20 sources)Gastroesophageal reflux disease; Translations: [Gastro-esophageal reflux disease without esophagitis]Onset: 03-10-2011 Resolved: [id number] hypertension (20 sources)Essential hypertension; Translations: [Essential (primary) hypertension]Onset: 03-10-2011 Resolved: 559779-10-6496VdmvkyuGrdsr disorders and dislocations; trauma-related (20 sources)Derangement of left knee; Translations: [Unspecified internal derangement of left knee]Onset: 308751-23-8502UohugeeXcdrswojdtl deficiencies (20 sources)Vitamin D deficiency; Translations: [Vitamin D deficiency, unspecified]Onset: 828625-99-1356WvyjryfQznjgxlntksafn (20 sources)Osteoarthritis of knee; Translations: [Osteoarthritis of knee, unspecified]Onset: 02-18-2023 Resolved: 612019-78-5823QnlyfqvPceqo connective tissue disease (1 source)Other muscle spasm; Translations: [OTHER MUSCLE SPASM]Onset: 89-97-6366KxpmzcuvBzjom gastrointestinal disorders (1 source)Abnormal feces; Translations: [Other fecal abnormalities]Onset: 45-13-9663RnjtehvmOboig lower respiratory disease (1 source)Shortness of breath; Translations: [SHORTNESS OF BREATH]Onset: 25-10-7765CzhyyooyRfkcg nervous system disorders (1 source)Other chronic pain; Translations: [OTHER CHRONIC PAIN]Onset: 16-08-7585FdroeibJbhhi nervous system disorders (2 sources)Parkinsonism due to drug; Translations: [Other drug induced secondary parkinsonism]56-66-3913BncrwukJaqno nervous system disorders (2 sources)H/O: Disorder; Translations: [Personal history of other diseases of the nervous system and sense organs]79-48-8533FaahmzhzGzzkd nutritional; endocrine; and metabolic disorders (20 sources)Body mass index 40+ - severely obese; Translations: [Body mass index (BMI) 40.0-44.9, adult]Onset: 857048-67-7928PjyojziFsovu nutritional; endocrine; and metabolic disorders (18 sources)Obesity; Translations: [Obesity, unspecified]Onset: 02-18-2023 71-28-1465LjvmsvxNjihi nutritional; endocrine; and metabolic disorders (1 source)Obesity, unspecified; Translations: [OBESITY UNSPECIFIED]Onset: 10-75-1939GoakpysGxici nutritional; endocrine; and metabolic disorders (20 sources)Obesity caused by energy imbalance; Translations: [Morbid (severe) obesity due to excess calories]Onset: 646281-18-1908DuwkfycNaghu upper respiratory disease (20 sources)Allergic disposition; Translations: [Other allergic rhinitis]Onset: 702446-24-0052OjgpviqXquwplod codes; unclassified (1 source)Sleep apnea, unspecified; Translations: [SLEEP APNEA UNSPECIFIED] Onset: 83-08-8224UzmeolxHqgsfebb codes; unclassified (20 sources)Obstructive sleep apnea syndrome; Translations: [Obstructive sleep apnea (adult) (pediatric)]Onset: 313819-36-2483JyhzleyVnbwpgwo codes; unclassified (2 sources)Localized edema; Translations: [Localized edema]99-41-1569Jhuecony Spondylosis; intervertebral disc disorders; other back problems (10 sources)Spondylosis without myelopathy or radiculopathy, lumbar region; Translations: [Other intervertebraldisc degeneration, lumbar region]Onset: 72-55-0096MjhkpllSmtvtarik-related disorders (20 sources)Nicotine dependence, cigarettes, uncomplicated; Translations: [Tobacco dependence syndrome]Onset: 06-04-2022 Resolved: 726242-44-3252ZmayzmpAyehsygrunpr (4 sources)LOW BACK PAIN, UNSPECIFIED; Translations: [LOW BACK PAIN, UNSPECIFIED]Onset: 79-07-8236Wzpicstpqjuz (4 sources)CONTACT W/AND (SUSP) EXPOS COVID-19; Translations: [CONTACT W/AND (SUSP) EXPOS COVID-19]Onset: 59-02-6695Jfddk infection (1 source)COVID-19; Translations: [COVID-19]Onset: 03-02-2022 Past or Other Problems Problem ClassificationProblemDateDocumented DateEpisodic/ChronicDeficiency and other anemia (20 sources)Acute megaloblastic anemia; Translations: [Other megaloblastic anemias, not elsewhere classified]Onset: 299357-67-7169DdwyveiiUapyivyjly and other anemia (9 sources)Megaloblastic anemia; Translations: [Other megaloblastic anemias, not elsewhere classified]Onset: 12-06-2024 Resolved: 343330-39-9149MhbctocfX Codes: Adverse effects of medical drugs (1 source)Adverse effect of glucocorticoids and synthetic analogues, initial encounter; Translations: [ADVRS EFF GLUCOCORT SYN ANALOG INIT]Onset: 12-04-2021 EpisodicHeadache; including migraine (20 sources)Migraine; Translations: [Migraine without aura]Onset: 01-04-2023 Resolved: 977831-88-7991XfeinzuSeyi disorders (9 sources)Moderate recurrent major depression; Translations: [Major depressive disorder, recurrent, moderate]Onset: 12-06-2024 Resolved: 437856-23-0648MewkpuuQlrq disorders (20 sources)Mood disordersOnset: 06-03-2023 Resolved: 014293-44-0901Jmssigtgqeq deficiencies (20 sources)Cobalamin deficiency; Translations: [Deficiency of other specified B group vitamins]Onset: 382940-43-7114HouicyjkEenv wounds of extremities (20 sources)Open wound of left foot; Translations: [Unspecified open wound, left foot, initial encounter]Onset: 01-26-2023 Resolved: 476157-76-4634NxcywckzKsphg aftercare (1 source)Other ferry terminal agent (current) drug therapy; Translations: [OTH AIRLINE COUNTER AGENT CURRENT DRUG THERAPY]Onset: 55-32-1556BocpswxmVcsum and unspecified benign neoplasm (10 sources)Polyp of colon; Translations: [Hyperplastic polyp of sigmoid colon] Onset: 399705-27-9208PeypcegePvhzy and unspecified benign neoplasm (20 sources)Hyperplastic polyp of intestine; Translations: [Polyp of colon] Onset: 370357-89-5958HnwzkaytErtyu bone disease and musculoskeletal deformities (20 sources)Osteopenia; Translations: [Other specified disorders of bone density and structure, unspecified site]Onset: 720996-88-7742UpwodireAithz connective tissue disease (20 sources)Fibromyalgia; Translations: [Fibromyalgia]Onset: 03-10-2011 Resolved: 725614-16-5933FoanaiwuGcurb connective tissue disease (1 source)Fibromyalgia; Translations: [FIBROMYALGIA]Onset: 79-71-6389Dfvffmlh Other ear and sense organ disorders (20 sources)Hearing loss; Translations: [Unspecified hearing loss, unspecified ear]Onset: 02-18-2023 Resolved: 320593-10-0438XttvoerMbpzm gastrointestinal disorders (4 sources)Other fecal abnormalities; Translations: [OTHER FECAL ABNORMALITIES] Onset: 56-92-9706GvnpfahhCjasp inflammatory condition of skin (4 sources)Pruritus, unspecified; Translations: [PRURITUS UNSPECIFIED]Onset: 41-99-2043NfvhggnlHepzl liver diseases (20 sources)Aspartate aminotransferase serum level raised; Translations: [Elevated SGOT (AST)]Onset: 03-10-2011 Resolved: 586099-28-7211WppiwurqWjick lower respiratory disease (20 sources)Dyspnea; Translations: [Shortness of breath]Onset: 03-25-2023 Resolved: 900043-62-9794PiqcjcioLahfw nervous system disorders (20 sources)Tremor; Translations: [Tremor, unspecified]Onset: 02-10-2024 44-96-3201LkiqznnzAuvif non-traumatic joint disorders (20 sources)Pain in left knee; Translations: [Pain in joint, lower leg]Onset: 10-13-2021 Resolved: 255206-43-9705IndhmyjiRwawj nutritional; endocrine; and metabolic disorders (20 sources)Severe obesity; Translations: [Morbid (severe) obesity due to excess calories]Onset: 01-26-2023 Resolved: 963420-17-2049EenjzpnQxdns nutritional; endocrine; and metabolic disorders (10 sources)Morbid obesity; Translations: [Morbid (severe) obesity due to excess calories]Onset: 12-07-2024 Resolved: 840400-91-5759MxwkuwxHoqki screening for suspected conditions (not mental disorders or infectious disease) (20 sources)Stool DNA-based colorectal cancer screening positive; Translations: [Other fecal abnormalities]Onset: 467237-38-3657GcvahvojWigge skin disorders (20 sources)Decorative tattoo; Translations: [Other specified disorders of pigmentation]Onset: 03-10-2011 Resolved: 259033-14-3696KzrcafujYmlmf upper respiratory infections (20 sources)Acute sinusitis; Translations: [Other acute sinusitis]Onset: 01-26-2023 Resolved: 305683-91-7334HcoqztihOmmyosudn (except that caused by tuberculosis or sexually transmitted disease) (20 sources)Community acquired pneumonia; Translations: [Pneumonia, unspecified organism]Onset: 01-03-2024 Resolved: 590972-50-9179FylvyhroXzosgbyp codes; unclassified (20 sources)Edema of lower extremity; Translations: [Localized edema]Onset: 02-18-2023 Resolved: 272250-58-0351XnmevupmRwbfuuye codes; unclassified (20 sources)Tobacco user; Translations: [Tobacco use]Onset: 02-18-2023 Resolved: 656358-99-6144BbyjuumpCoehrtge codes; unclassified (1 source)Acquired absence of both cervix and uterus; Translations: [ACQUIRED ABSENCE BOTH CERVIX AND UTERUS]Onset: 37-41-5429PncvwsqpCwnccmyr codes; unclassified (1 source)Tobacco use; Translations: [TOBACCO USE]Onset: 46-73-2049Uweocqli Residual codes; unclassified (1 source)Insomnia, unspecified; Translations: [INSOMNIA UNSPECIFIED]Onset: 11-59-8516NwtmeltuBkyouqnu codes; unclassified (20 sources)Bilateral lower limb edema; Translations: [Localized edema]Onset: 507852-07-3019VythvampSkzistha codes; unclassified (20 sources)Exposure to carbon monoxide; Translations: [Contact with and (suspected) exposure to other hazardous substances]Onset: 02-18-2023 Resolved: 628072-66-7807IjcklehmJxxkvabw codes; unclassified (20 sources)Edema of right lower limb; Translations: [Localized edema]Onset: 03-25-2023 Resolved: 630766-58-6596BzjhddezKtgmfktmw and history of mental health and substance abuse codes (20 sources)Tobacco use and exposure - finding; Translations: [Personal history of nicotine dependence]Onset: 03-10-2011 Resolved: 809108-24-6501MjefftdeJolpqjvnnoz; intervertebral disc disorders; other back problems (20 sources)Chronic low back pain; Translations: [Chronic lumbar pain]Onset: 039355-86-0141NazovillHmywttqppmjv (1 source)LOW BACK PAIN, UNSPECIFIED; Translations: [LOW BACK PAIN, UNSPECIFIED] Onset: 10-71-1991Abmzxxlxhhis (1 source)CONTACT W/AND (SUSP) EXPOS COVID-19; Translations: [CONTACT W/AND (SUSP) EXPOS COVID-19]Onset: 03-10-2022 Results Test NameValueInterpretationReference RangeFacilityGlomerular filtration rate (GFR) estimation in non- AmericanOrdered By: Jaymie Phoenix on 10-10-2024 GFR/1.73 sq M.predicted among non-blacks MDRD (S/P/Bld) [Vol rate/Area]54 mL/min/{1.73_m2}Low>=60 mL/min/1.73m 2FC[facility] - Chemistry and Chemistry - challengeOrdered By: Jaymie Phoenix on 10-21-4405Pnffzsu [Mass/Vol]8.9 mg/dL8.5-10.1FCleveland Clinic [facility] Hospital Chloride [Moles/Vol]101 mmol/I30-970YzlcxedwzSelect Medical Specialty Hospital - TrumbullCO2 [Moles/Vol]29.5 mmol/L21.0-32.0[facility] TrumbullCreatinine [Mass/Vol]1.03 mg/dLHigh0.55-1.02[facility] - TrumbullGFR/1.73 sq M.predicted MDRD (S/P/Bld) [Vol rate/Area]mL/min/{1.73_m2}>=60 mL/min/1.73m 2 [facility] TrumbullGlucose [Mass/Vol]111 mg/gYMrdl91-906VicyhjbivSelect Medical Specialty Hospital - TrumbullPotassium [Moles/Vol]4.1 mmol/L3.5-5.1FOhio State Harding Hospitalodium [Moles/Vol]139 mmol/G154-813XykjuuejuSelect Medical Specialty Hospital - TrumbullUrea nitrogen [Mass/Vol]19.0 mg/dLHigh7.0-18.0[facility] - TrumbullUrea nitrogen/Creatinine [Mass ratio]18.4 mg/mgProtestant Hospitalerum or plasma anion gap determinationOrdered By: Jaymie Phoenix on 21-05-4958Lnlsk gap [Moles/Vol]12.6 mmol/LFCleveland Clinic Mercy HospitalXR LUMBAR SPINE 6V W BENDINGon 57-19-0171[place] [address] XRay Report Signed Patient: FRANKY GAGNON I MR#: [id number] : 1965 Acct:[id number] Age/Sex: 59 / F ADM Date: 09/19/24 Loc: RAD Attending Dr: Estelle Vazquez NP Ordering Physician: Estelle Vazquez NP Date of Service: 09/19/24 Procedure(s): XR lumbar spine 6V w bending Accession Number(s): [id number] cc: Jaymie Phoenix RAILROAD CAR CLEANING SUPERVISOR; Estelle Vazquez NP [place] [id number] Patient Name: FRANKY GAGNON MRN: [id number] date: 1965 Sex: F Assigned Patient Location: RAD Current Patient Location: RAD Accession/Order Number: [id number] Exam Date: 09/19/2024 14:32 Report Date: 09/19/2024 [...] Jr., D.O. 09/19/2024 2:33 PM Dictation Location: [place] [address] Electronically authenticated by: [id number] Y Date: 09/19/2024 14:33 Dictated By: Joaquin Chatman M.D. Signed By: 09/19/24 1436 DD/ 32 TD/TT: Sap Architect:JEREMIEHRadiology, Radiologist, - 09/19/2024 [place] [address] XRay Report Signed Patient: FRANKY GAGNON I MR#: [id number] : 1965 Acct:[id number] Age/Sex: 59 / F ADM Date: 09/19/24 Loc: [facility] Attending Dr: Estelle Vazquez NP Ordering Physician: Estelle Vazquez NP Date of Service: 09/19/24 Procedure(s): XR lumbar spine 6V w bending Accession Number(s): [id number] cc: Jaymie Phoenix RAILROAD CAR CLEANING SUPERVISOR; Estelle Vazquez NP The [place] [address] Patient Name: FRANKY GAGNON MRN: [id number] date: 1965 Sex: F Assigned Patient Location: [facility] Current Patient Location: RAD Accession/Order Number: [id number] Exam Date: 09/19/2024 14:32 Report Date: 09/19/2024 [...] Jr., D.O. 09/19/2024 2:33 PM Dictation Location: [place] [address] Electronically authenticated by: [id number] Y Date: 09/19/2024 14:33 Dictated By: Joaquin Chatman M.D. Signed By: 09/19/24 143 DD/ 32 TD/TT: Sap Architect: [facility] HealthcareRadiology Study observation (narrative)NOMS HealthcareXR LUMBAR SPINE 6V W BENDINGOrdered By: Radiologist Radiology on 03-55-4768GHFH Healthcare Work Phone: TBK MICROALB CREAT RATIO RANDOMon 67-58-4228LWUTHXTFFK URINE GMADZE853.95 mg/dL20.00 - 300.00 mg/dLNOFL HealthcareMICROALBUMIN URINE RANDOM<1.3NINF - 30.0 mg/dLNOFL HealthcareCLINISYNCNOMS HealthcareALL BASIC METABOLIC PANELon 32-41-1794Jmfyq gap [Moles/Vol]11.6 mmol/LNOMS Healthcare Calcium [Mass/Vol]8.9 mg/dL8.5 - 10.1 mg/dLNOFL HealthcareChloride [Moles/Vol] 103 mmol/L98 - 107 mmol/LNOMS HealthcareCO2 [Moles/Vol]31.6 mmol/L21.0 - 32.0 mmol/LNOMS HealthcareCreatinine [Mass/Vol]1.17 mg/dLHigh0.55 - 1.02 mg/dLNOFL HealthcareGFR/1.73 sq M.predicted CKD-EPI (S/P/Bld) [Vol rate/Area]57Low>=60 mL/min/1.73m 2NOMS HealthcareGlucose [Mass/Vol]118 mg/hQVbum61 - 106 mg/dLNOFL HealthcarePotassium [Moles/Vol]4.2 mmol/L3.5 - 5.1 mmol/LNOMS HealthcareSodium [Moles/Vol]142 mmol/L136 - 145 mmol/LNOMS HealthcareTBH EGFR-NON AF SSJHVEKV14 Low>=60 mL/min/1.73m 2NOMS HealthcareUrea nitrogen [Mass/Vol]12 mg/dL7.0 - 18.0 mg/dLNOFL HealthcareUrea nitrogen/Creatinine [Mass ratio]10.3 mg/mgNOMercy Hospital St. John'sALL LIPID PROFILE (FASTING)on 13-99-9978QCXI HDL RATIO2.9NOFL HealthcareComment on above:3.3 - 4.4 LOW RISK 4.4 - 7.1 AVERAGE RISK 7.1 - 11.0 MODERATE RISK >11.0 HIGH RISK Cholesterol [Mass/Vol]152 mg/dLNINF - 200 mg/dLNOMercy Hospital St. John'sCholesterol in HDL [Mass/Vol]52 mg/dL40 - 60 mg/dLNOFL HealthcareComment on above:> or =60 mg/dl - LOW CARDIOVASCULAR RISK <40 mg/dl - HIGH CARDIOVASCULAR RISK Magnesium [Mass/Vol]70 mg/dLNOFL HealthcareComment on above:<100 mg/dl OPTIMAL 100-129 mg/dl NEAR OR ABOVE OPTIMAL 130-159 mg/dl BORDERLINE HIGH 160-189 mg/dl HIGH >190 mg/dl VERY HIGH Magnesium [Mass/Vol]30.8 mg/dLCass Medical CenterTriglyceride [Mass/Vol]154 mg/dL HighNINF - 150 mg/dLCass Medical CenterNo Panel Informationon 01-24-2024 Interpretation and review of laboratory resultsAbnoSt. Mary Medical CenterCLINISYNC [facility] BASIC METABOLIC PANELon 25-09-5677Qgpsr gap [Moles/Vol]12.5 mmol/LNOMS HealthcareCalcium [Mass/Vol]10.1 mg/dL8.5 - 10.1 mg/dLCass Medical Center Chloride [Moles/Vol]99 mmol/L98 - 107 mmol/LNOMS HealthcareCO2 [Moles/Vol]32.9 mmol/LHigh21.0 - 32.0 mmol/LNOMS HealthcareCreatinine [Mass/Vol]1.38 mg/dLHigh 0.55 - 1.02 mg/dLNOMercy Hospital St. John'sGFR/1.73 sq M.predicted CKD-EPI (S/P/Bld) [Vol rate/Area]54Jyp07 - PINFNOMS Acmc Healthcare SystemGlucose [Mass/Vol]102 mg/dL74 - 106 mg/dL [facility] CenterInterpretation and review of laboratory resultsAbnormalNOMS HealthcarePotassium [Moles/Vol]4.4 mmol/L3.5 - 5.1 mmol/LNOMS HealthcareSodium [Moles/Vol]140 mmol/L136 - 145 mmol/LNOMS HealthcareTBH EGFR-NON AF VBQZZEGW96 Low60 - PINFNOMS HealthcareUrea nitrogen [Mass/Vol]13.0 mg/dL7.0 - 18.0 mg/dL NOMS HealthcareUrea nitrogen/Creatinine [Mass ratio]9.4 mg/mgNOMS Healthcare CLINISYNCNOFL HealthcareCT LUNG SCREENING LOW DOSEon 42-94-4370NffG[place] [address] [place] Scan Report Signed Patient: FRANKY GAGNON MR#: [id number] : 1965 Acct:[id number] Age/Sex: 57 / F ADM Date: 05/31/23 Loc: CT Attending Dr: Jaymie Phoenix NP Ordering Physician: Jaymie Phoenix NP Date of Service: 05/31/23 Procedure(s): CT lung screening low-dose Accession Number(s): [id number] cc: Jaymie Phoenix NP [place] [id number] Patient Name: FRANKY GAGNON MRN: [id number]:[id number] date: 1965 Sex: F Assigned Patient Location: CT Current Patient Location: CT Accession/Order Number: [id number] Exam Date: 05/31/2023 13:47 Report Date: 05/31/2023 [...] scan of the chest. Electronically authenticated by: FERNANDO KING Date: 05/31/2023 14:46 Dictated By: Fernando King M.D. Signed By: 05/31/23 1448 DD/ 1446 TD/TT: Sap Architect:TBHRadiology, Radiologist, MD - 05/31/[address] [place] [id number] CT Scan Report Signed Patient: FRANKY GAGNON MR#: [id number] : 1965 Acct:[id number] Age/Sex: 57 / F ADM Date: 05/31/23 Loc: CT Attending Dr: Jaymie Phoenix NP Ordering Physician: Jaymie Phoenix NP Date of Service: 05/31/23 Procedure(s): CT lung screening low-dose Accession Number(s): [id number] cc: Jaymie Phoenix NP The [address] [address] Patient Name: FRANKY GAGNON MRN: [facility]:[id number] date: 1965 Sex: F Assigned Patient Location: CT Current Patient Location: CT Accession/Order Number: [id number] Exam Date: 05/31/2023 13:47 Report Date: 05/31/2023 [...] scan of the chest. Electronically authenticated by: FERNANDO KING Date: 05/31/2023 14:46 Dictated By: Fernando King M.D. Signed By: 05/31/23 1448 DD/ 1446 TD/TT: Sap Architect: [facility] HealthcareRadiology Study observation (narrative)NOMS HealthcareCT LUNG SCREENING LOW DOSEOrdered By: Radiologist Radiology on 09-64-2881VYYF Healthcare Work Phone: ca ECHO DOPPLER COMPLETEon [phone] [address] Cardiology Report Signed Patient: FRANKY GAGNON MR#: [id number] : 1965 Acct:[id number] Age/Sex: 57 / F ADM Date: 05/05/23 Loc: CARD Attending Dr: Jaymie Phoenix NP Ordering Physician: Jaymie Phoenix NP Date of Service: 05/05/23 Procedure(s): CA echo doppler complete Accession Number(s): [id number] cc: Jaymie Phoenix NP Patient Name: FRANKY GAGNON MR#: [id number] : 1965 Exam Date: 05/05/2023 Ordering Doctor: [...] 05/05/2023 at 16:42 Dictated By: CHETAN GARCIA (more content not included)...TBHRadiology, Radiologist, - 05/05/2023 [place] [address] Cardiology Report Signed Patient: FRANKY GAGNON MR#: [id number] : 1965 Acct:[id number] Age/Sex: 57 / F ADM Date: 05/05/23 Loc: CARD Attending Dr: Jaymie Phoenix NP Ordering Physician: Jaymie Phoenix NP Date of Service: 05/05/23 Procedure(s): CA echo doppler complete Accession Number(s): [id number] cc: Jaymie Phoenix NP Patient Name: FRANKY GAGNON MR#: [id number] : 1965 Exam Date: 05/05/2023 Ordering Doctor: [...] at 16:42 Dictated By: CHETAN GARCIA Signed By: 05/05/231642 DD/ 41 TD/TT: Sap Architect: [facility] CenterRadiology Study observation (narrative)[facility] ECHO DOPPLER COMPLETEOrdered By: Radiologist Radiology on 10-25-9299UPJN [facility] Work Phone: ct ABDOMEN PELVIS W CONon [phone] [place] [phone] CT Scan Report Signed Patient: FRANKY GAGNON MR#: [id number] : 1965 Acct:[id number] Age/Sex: 57 / F ADM Date: 04/30/23 Loc: CT Attending Dr: Jaymie Phoenix NP Ordering Physician: Jaymie Phoenix NP Date of Service: 04/30/23 Procedure(s): CT abdomen pelvis w con Accession Number(s): [id number] cc: Jaymie Phoenix NP [address] [address] Patient Name: FRANKY GAGNON MRN: [facility]:[id number] date: 1965 Sex: F Assigned Patient Location: CT Current Patient Location: Accession/Order Number: [id number] Exam Date: 04/30/2023 12:55 Report Date: 05/03/2023 [...] venous obstruction observed Electronically authenticated by: NADINE GUERRA Date: 05/03/2023 08:56 Dictated By: Nadine Guerra M.D. Signed By: 05/03/23 0858 DD/ TD/TT: Sap Architect:TBHRadiology, Radiologist, - 05/03/2023 [place] [address] CT Scan Report Signed Patient: FRANKY GAGNON MR#: [id number] : 1965 Acct:[id number] Age/Sex: 57 / F ADM Date: 04/30/23 Loc: CT Attending Dr: Jaymie Phoenix NP Ordering Physician: Jaymie Phoenix NP Date of Service: 04/30/23 Procedure(s): CT abdomen pelvis w con Accession Number(s): [id number] cc: Jaymie Phoenix NP [place] [address] Patient Name: FRANKY GAGNON MRN: [facility]:[id number] date: 1965 Sex: F Assigned Patient Location: CT Current Patient Location: Accession/Order Number: [id number] Exam Date: 04/30/2023 12:55 Report Date: 05/03/2023 [...] venous obstruction observed Electronically authenticated by: NADINE GUERRA Date: 05/03/2023 08:56 Dictated By: Nadnie Guerra M.D. Signed By: 05/03/23 0858 DD/ 0856 TD/TT: Sap Architect: [facility] HealthcareRadiology Study observation (narrative)[facility] HealthcareCT ABDOMEN PELVIS W CONOrdered By: Radiologist Radiology on 37-56-5757PYZOCass Medical Center Work Phone: VC EXT VENOUS REFLUX SABRINA LMTDon 08-26-3946FbmG[place] [address] Vein Report Signed Patient: FRANKY GAGNON MR#: [id number] : 1965 Acct:[id number] Age/Sex: 57 / F ADM Date: 04/22/23 Loc: VC Attending Dr: Nadine Guerra M.D. Ordering Physician: Nadine Guerra M.D. Date of Service: 04/22/23 Procedure(s): VC EXT Venous Reflux SABRINA LMTD Accession Number(s): [id number] cc: Jaymie Phoenix RAILROAD CAR CLEANING SUPERVISOR; Nadine Guerra M.D. Patient Name: FRANKY GAGNON MR#: [id number] : 1965 Exam Date: 04/22/2023 Ordering Doctor: DR NADINE GUERRA M.D. RADIOLOGY REPORT PROCEDURE: VC EXT VENOUS [...] chronis thrombus visualized Compressibility: Normal Flow: Normal Strainer Mill Operator: Dist/med calf 3.9mm with 1.0s reflux. Tech Note: Incompetent AASV. Patent varicose vein mid/med calf 3.6mm with 1.5s reflux. Patent varicose vein dist/med thigh 4.1mm with 0.8s reflux. CONCLUSION: 1. 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 Dictated by: Melissa Rosenberg M.D. on 04/22/2023 at 14:21 Approved by: Melissa Rosenberg M.D. on 04/22/2023 at 14:40 Dictated By: Melissa Rosenberg M.D. Signed By: 04/22/23 1441 DD/ 1440 TD/TT: Sap Architect:TBHRadiology, Radiologist, MD - 04/22/2023 [place] [address] Vein Report Signed Patient: FRANKY GAGNON MR#: [id number] : 1965 Acct:[id number] Age/Sex: 57 / F ADM Date: 04/22/23 Loc: VC Attending Dr: Nadine Guerra M.D. Ordering Physician: Nadine Guerra M.D. Date of Service: 04/22/23 Procedure(s): VC EXT Venous Reflux SABRINA LMTD Accession Number(s): [id number] cc: Jaymie Phoenix RAILRO[employer] CAR CLEANING SUPERVISOR; Nadine Guerra M.D. Patient Name: FRANKY GAGNON MR#: [id number] : 1965 Exam Date: 04/22/2023 Ordering Doctor: DR NADINE GUERRA M.D. RADIOLOGY REPORT PROCEDURE: VC EXT VENOUS [...] chronis thrombus visualized Compressibility: Normal Flow: Normal Strainer Mill Operator: Dist/med calf 3.9mm with 1.0s reflux. Tech Note: Incompetent AASV. Patent varicose vein mid/med calf 3.6mm with 1.5s reflux. Patent varicose vein dist/med thigh 4.1mm with 0.8s reflux. CONCLUSION: 1. 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 Dictated by: Melissa Rosenberg M.D. on 04/22/2023 at 14:21 Approved by: Melissa Rosenberg M.D. on 04/22/2023 at 14:40 Dictated By: Melissa Rosenberg M.D. Signed By: 04/22/23 1441 DD/ 1440 TD/TT: Sap Architect: [facility]ITALKecia HealthcareRadiology Study observation (narrative)NOMS HealthcareVC EXT VENOUS REFLUX SABRINA LMTDOrdered By: Radiologist Radiology on 61-54-7405FQZK Healthcare Work Phone: [facility] EST COMPREHENSIVEon 40-63-2744QdxG[place] [address] Vein Report Signed Patient: FRANKY GAGNON MR#: [id number] : 1965 Acct:[id number] Age/Sex: 57 / F ADM Date: 04/22/23 Loc: Attending Dr: Nadine Guerra M.D. Ordering Physician: Nadine Guerra M.D. Date of Service: 04/22/23 Procedure(s): [facility] Accession Number(s): [id number] cc: Jaymie Phoenix RAILROAD CAR CLEANING SUPERVISOR; Nadine Guerra M.D. Patient Name: FRANKY GAGNON MR#: [id number] : 1965 Exam Date: 04/22/2023 Ordering Doctor: DR NADINE GUERRA M.D. RADIOLOGY REPORT PROCEDURE: [facility] - OFFICE VISIT INITIAL COMPARISON: [...] arterial disease 5. CEAP: C3, AP, , [place] PLAN: 1. Continued use of compression stockings [...] the physical exam and consultation Dictated by: Melissa Rosenberg M.D. on 04/22/2023 at 14:40 Approved by: Melissa Rosenberg M.D. on 04/22/2023 at 14:48 Dictated By: Melissa Rosenberg M.D. Signed By: 04/22/23 1449 DD/ 1448 (more content not included)...TBHRadiology, Radiologist, - 04/22/2023 [place] [address] Vein Report Signed Patient: FRANKY GAGNON MR#: [id number] : 1965 Acct:[id number] Age/Sex: 57 / F ADM Date: 04/22/23 Loc: VC Attending Dr: Nadine Guerra M.D. Ordering Physician: Nadine Guerra M.D. Date of Service: 04/22/23 Procedure(s): VC Facility EST Comprehensive Accession Number(s): [id number] cc: Jaymie Phoenix RAILROAD CAR CLEANING SUPERVISOR; Nadine Guerra M.D. Patient Name: FRANKY GAGNON MR#: [id number] : 1965 Exam Date: 04/22/2023 Ordering Doctor: DR NADINE GUERRA M.D. RADIOLOGY REPORT PROCEDURE: VC FACILITY EST COMPREHENSIVE VEIN CENTER - OFFICE [...] arterial disease 5. CEAP: C3, AP, , [place] PLAN: 1. Continued use of compression stockings [...] the physical exam and consultation Dictated by: Melissa Rosenberg M.D. on 04/22/2023 at 14:40 Approved by: Melissa Rosenberg M.D. on 04/22/2023 at 14:48 Dictated By: Melissa Rosenberg M.D. Signed By: 04/22/23 1449 DD/ 1448 TD/TT: Sap Architect: LYNDSAYGolden Valley Memorial HospitalRadiology Study observation (narrative)[facility] FACILITY EST COMPREHENSIVEOrdered By: Radiologist Radiology on 48-14-5739OELECass Medical Center Work Phone: all CBC WITH AUTO DIFFon 21-03-0842PXKYFLRXX ABSOLUTE AUTO0.0NOMercy Hospital St. John'sBasophils/100 WBC (Bld)0.5 %0.2 - 2.0 %[facility] Eosinophils/100 WBC (Bld)1.5 %0.9 - 7.0 %[facility] CenterErythrocyte distribution width (RBC) [Ratio]14.0 %11.0 - 15.0 %[facility] CenterHematocrit (Bld) [Volume fraction]42.3 %36.0 - 48.0 %[facility] CenterHemoglobin (Bld) [Mass/Vol]13.4 g/dL 12.0 - 16.0 g/dLCass Medical CenterIMMATURE GRANULOCYTES ABS AUTO0.02NOMercy Hospital St. John's Immature granulocytes/100 WBC (Bld)0.3 %0.0 - 0.5 %[facility] CenterInterpretation and review of laboratory resultsAbnormalCass Medical CenterLYMPHOCYTES ABSOLUTE AUTO1.9NOMercy Hospital St. John'sLymphocytes/100 WBC (Bld)30.2 %20.5 - 60.0 %[facility] CenterH (RBC) [Entitic mass]33.6 pg26.7 - 34.0 pgSaint Joseph Health CenterHC (RBC) [Mass/Vol]31.7 g/dL29.9 - 35.2 g/dLNOFL HealthcareMCV (RBC) [Entitic vol]106.0 uNJxwh12.0 - 99.0 fLNOFL HealthcareMONOCYTES ABSOLUTE AUTO0.6NOMS Healthcare Monocytes/100 WBC (Bld)9.3 %1.7 - 12.0 %NOMS HealthcareNEUTROPHILS ABSOLUTE AUTO 3.6NOMS HealthcareNeutrophils/100 WBC (Bld)58.2 %43.0 - 75.0 %NOMGolden Valley Memorial Hospital Platelet mean volume (Bld) [Entitic vol]10.7 fL9.5 - 13.[address] John'sTBH EO #0.1NOMS HealthcareTBH BFR090OLZW HealthcareTBH RBC3.99LowNOMS HealthcareTBH WBC6.2NOMS HealthcareCLINISYNCNMUSCOGEE HealthcareCCF CMP (CMP) (FOR REMOTE [facility] USE) on 84-70-8726Hovtaol [Mass/Vol]3.2 g/dLLow3.4 - 5.0 g/dLNOFL HealthcareALBUMIN GLOBULIN RATIO1.0NOFL HealthcareALP [Catalytic activity/Vol]92 U/L46 - 116 U/L NOM HealthcareALT [Catalytic activity/Vol]36 U/L14 - 59 U/LNOMS HealthcareAnion gap [Moles/Vol]13.2 mmol/LNOMS HealthcareAST [Catalytic activity/Vol]23 U/L15 - 37 U/LNOMS HealthcareBilirubin [Mass/Vol]0.7 mg/dL0.2 - 1.0 mg/dLNOFL Healthcare Calcium [Mass/Vol]8.5 mg/dL8.5 - 10.1 mg/dLNOFL HealthcareChloride [Moles/Vol] 103 mmol/L98 - 107 mmol/LNOMS HealthcareCO2 [Moles/Vol]29.7 mmol/L21.0 - 32.0 mmol/LNOMS HealthcareCreatinine [Mass/Vol]1.37 mg/dLHigh0.55 - 1.02 mg/dLNOFL HealthcareGFR/1.73 sq M.predicted CKD-EPI (S/P/Bld) [Vol rate/Area]10Rst91 - PINFNOMS HealthcareGlobulin (S) [Mass/Vol]3.2 g/dLNOFL HealthcareGlucose [Mass/Vol]77 mg/dL74 - 106 mg/dLNOFL HealthcareInterpretation and review of laboratory resultsAbnoDunlap Memorial Hospital HealthcarePotassium [Moles/Vol]3.9 mmol/L3.5 - 5.1 mmol/LNOMS HealthcareProtein [Mass/Vol]6.4 g/dL6.4 - 8.2 g/dLNOFL Healthcare Sodium [Moles/Vol]142 mmol/L136 - 145 mmol/LNOMS HealthcareTB EGFR-NON AF BIDOJXEU74Wqq52 - PINFNOMS HealthcareUrea nitrogen [Mass/Vol]9.0 mg/dL7.0 - 18.0 mg/dLNOFL HealthcareUrea nitrogen/Creatinine [Mass ratio]6.6 mg/mgNOFL HealthcareCLINISYNCNSaint Luke's North Hospital–SmithvilleTB D-DIMERon 03-25-2023 DIMER0.82Critically highNINFDAVIS HOSPITAL AND MEDICAL CENTER HealthcareComment on above:RESULTS CALLED TO JAYMIE PHOENIX CNP Increases in [...] or anticoagulant therapy, stress, and generalized hospitalization. Interpretation and review of laboratory resultsAbFormerly Vidant Beaufort HospitalUS.doppler Lower extremity vein - righton 57-88-5446[place]mr[place] [address] Ultrasound Report Signed Patient: FRANKY GAGNON I MR#: [id number] : 1965 Acct:[id number] Age/Sex: 57 / F ADM Date: 03/25/23 Loc: LAB Attending Dr: Jaymie Phoenix NP Ordering Physician: Jaymie Phoenix NP Date of Service: 03/25/23 Procedure(s): US venous doppler LE RT Accession Number(s): [id number] cc: Jaymie Phoenix NP [address] [address] Patient Name: FRANKY GAGNON MRN: [id number] date: 1965 Sex: F Assigned Patient Location: LAB Current Patient Location: LAB Accession/Order Number: [id number] Exam Date: 03/25/2023 14:30 Report Date: 03/25/2023 [...] right lower extremity. Electronically authenticated by: MELISSA ROSENBERG Date: 03/25/2023 15:24 Dictated By: Melissa Rosenberg M.D. Signed By: 03/25/23 1527 DD/ 1524 TD/TT: Sap Architect:TBHRadiology, Radiologist, MD - 03/25/2023 [place] [address] Ultrasound Report Signed Patient: FRANKY GAGNON I MR#: [id number] : 1965 Acct:[id number] Age/Sex: 57 / F ADM Date: 03/25/23 Loc: LAB Attending Dr: Jaymie Phoenix NP Ordering Physician: Jaymie Phoenix NP Date of Service: 03/25/23 Procedure(s): US venous doppler LE RT Accession Number(s): [id number] cc: Jaymie Phoenix NP The [address] [address] Patient Name: FRANKY GAGNON MRN: [id number] date: 1965 Sex: F Assigned Patient Location: LAB Current Patient Location: LAB Accession/Order Number: [id number] Exam Date: 03/25/2023 14:30 Report Date: 03/25/2023 [...] right lower extremity. Electronically authenticated by: MELISSA ROSENBERG Date: 03/25/2023 15:24 Dictated By: Melissa Rosenberg M.D. Signed By: 03/25/231526 DD/ 23 TD/TT: Sap Architect: [facility] CenterRadiology Study observation (narrative)SYLVIA Acmc Healthcare SystemUS.doppler Lower extremity vein - rightOrdered By: Radiologist Radiology on 79-00-4999BXRH [facility] Work Phone: XR CHEST 2Von [phone] [address] XRay Report Signed Patient: FRANKY GAGNON I MR#: [id number] : 1965 Acct:[id number] Age/Sex: 57 / F ADM Date: 03/25/23 Loc: LAB Attending Dr: Jaymie Phoenix NP Ordering Physician: Jaymie Phoenix NP Date of Service: 03/25/23 Procedure(s): XR chest 2V Accession Number(s): [id number] cc: Jaymie Phoenix NP [place] [address] Patient Name: FRANKY GAGNON MRN: [id number] date: 1965 Sex: F Assigned Patient Location: LAB Current Patient Location: LAB Accession/Order Number: [id number] Exam Date: 03/25/2023 14:25 Report Date: 03/25/2023 [...] new since prior study. Electronically authenticated by: MELISSA ROSENBERG Date: 03/25/2023 14:38 Dictated By: Melissa Rosenberg M.D. Signed By: 03/25/23 1440 DD/ 1438 TD/TT: Sap Architect:TBHRadiology, Radiologist, - 03/25/2023 [place] [address] XRay Report Signed Patient: FRANKY GAGNON I MR#: [id number] : 1965 Acct:[id number] Age/Sex: 57 / F ADM Date: 03/25/23 Loc: LAB Attending Dr: Jaymie Phoenix NP Ordering Physician: Jaymie Phoenix NP Date of Service: 03/25/23 Procedure(s): XR chest 2V Accession Number(s): [id number] cc: Jaymie Phoenix NP [place] [id number] Patient Name: FRANKY GAGNON MRN: [id number] date: 1965 Sex: F Assigned Patient Location: LAB Current Patient Location: LAB Accession/Order Number: [id number] Exam Date: 03/25/2023 14:25 Report Date: 03/25/2023 [...] new since prior study. Electronically authenticated by: MELISSA ROSENBERG Date: 03/25/2023 14:38 Dictated By: Melissa Rosenberg M.D. Signed By: 03/25/23 1440 DD/ 1438 TD/TT: Sap Architect: SYLVIA HealthcareRadiology Study observation (narrative)[facility] HealthcareXR CHEST 2V Ordered By: Radiologist Radiology on 64-91-8856BACK [facility] Work Phone: SEGMENTAL BLOOD PRESSUREon [phone] [address] Cardiology Report Signed Patient: FRANKY GAGNON I MR#: [id number] : 1965 Acct:[id number] Age/Sex: 57 / F ADM Date: 03/24/23 Loc: CARD Attending Dr: Nilam Busby Ordering Physician: Nilam Busby Date of Service: 03/24/23 Procedure(s): CA segmental UE or LE SABRINA Accession Number(s): [id number] cc: Jaymie Phoenix RAILROAD CAR CLEANING SUPERVISOR; Nilam Busby The [facility] Test Date: 2023-03-24 Pat Name: FRANKY GAGNON Department: Room: - Gender: Female Mechanical Supervisor: : 1965 Requested By: Nliam Busby Order Number: [id number] Julia MD: RICH CANNON Interpretive Statements Monophasic doppler [...] Rich Cannon D.O. Signed By: 03/24/23223203/24/232232 DD/ 1306 TD/TT: Sap Architect:TBHRadiology, Radiologist, - 03/24/2023 [place] [address] Cardiology Report Signed Patient: FRANKY GAGNON I MR#: [id number] : 1965 Acct:[id number] Age/Sex: 57 / F ADM Date: 03/24/23 Loc: CARD Attending Dr: Nilam Busby Ordering Physician: Nilam Busby Date of Service: 03/24/23 Procedure(s): CA segmental UE or LE SABRINA Accession Number(s): [id number] cc: Jaymie Phoenix RAILROAD CAR CLEANING SUPERVISOR; Nilam Busby [facility] Test Date: 2023-03-24 Pat Name: FRANKY GAGNON Department: Room: - Gender: Female Mechanical Supervisor: : 1965 Requested By: Nilam Busby Order Number: [id number] Reading MD: RICH CANNON Interpretive Statements Monophasic [...] Dictated By: Rich Cannon D.O. Signed By: 02/223203/24/232232 DD/ 1306 TD/TT: Sap Architect: SYLVIA HealthcareRadiology Study observation (narrative)NOMS HealthcareSEGMENTAL BLOOD PRESSUREOrdered By: Radiologist Radiology on 14-45-1856SSQTCass Medical Center Work Phone: bLOOD GASES BTYon [facility] Community General HospitalComment on above:Performed By: #### ABG ####[facility] T[address] [place], [place] [address]Dr.Phani ElALLENS TEST PositiveMiddletown HospitalComment on above:Performed By: #### ABG ####[facility] K[address]nybj[address] [place], [place] [address]Dr. Phani ElBase excess Calc (Bld) [Moles/Vol]1.4 mmol/LNormal-2.0-2.0The [facility] HospitalComment on above:Performed By: #### ABG ####[facility] Ghiiybytge[address] [place], [place] [address]Dr.Phani ChangBIPAP PRESSURE NormalAvita Health System Bucyrus HospitalComment on above:Performed By: #### ABG ####[facility] Tcrqfbppig[address] [place], [place] [address]Dr.Yilan ChangCPAP NormalAvita Health System Bucyrus HospitalComment on above:Performed By: #### ABG ####[facility] Qvmghzycal[address] [place], [place] [address]Dr.Phani ChangFIO2 NormalAvita Health System Bucyrus HospitalComment on above:Performed By: #### ABG ####[facility] Vsdfscqqqm[address] [place], [place] [address]Dr.Phani ChangHCO3 (Bld) [Moles/Vol]26.2 mmol/LCritically high22.0-26.0The [facility] HospitalComment on above:Performed By: #### ABG ####[facility] Glxsdvnkkl[address] [place], [place] [address]Dr.Phani ChangLPMNormalThe Palmyra HospitalComment on above:Performed By: #### ABG ####[facility] Lmogjoxtib[address] [place], [place] [address]Dr.Loryzach ElMINUTE [facility] Comment on above:Performed By: #### ABG ####[facility] Fjllpkyqlm[address] [place], [place] [address]Dr.Phani ChangOxygen (Bld) [Partial pressure]56.1 mm[Hg]Critically low80.0-100.0The [facility] HospitalComment on above:Performed By: #### ABG ####[facility] Iahyltdcwe[address] [place], [place] [address]Dr.Phani ElOxygen saturation in Blood92.0 % Critically low95.0-100.0The [facility] HospitalComment on above:Performed By: #### ABG ####[facility] Ifebfyygda[address] [place], [place] [address]Dr.Phani ElPCO242.6 keJvKzulpg85.0-45.0The [facility] HospitalComment on above:Performed By: #### ABG ####[facility] Hobxvzasgb[address] [place], [place] [address]Dr.Phani ElPEMount St. Mary HospitalComment on above:Performed By: #### ABG ####[facility] Qskkwtrjni[address] [place], [place] [address]Dr.Phani ChangpH (Bld)7.398 [pH]Normal7.350-7.450The [facility] HospitalComment on above:Performed By: #### ABG ####[facility] Hcrddifozr[address] [place], [place] [address]Dr.Phani ChangPIPNormalAvita Health System Bucyrus HospitalComment on above:Performed By: #### ABG ####[facility] Vwhtuztjmv[address] [place], [place] [address]Dr.Phani ChangSt. Mary's Medical Center, Ironton CampusComment on above:Performed By: #### ABG ####[facility] Dajbtrbepk[address] [place], [place] [address]Dr.Phani ChangPUNCTURE SITERR NormalAvita Health System Bucyrus HospitalComment on above:Performed By: #### ABG ####[facility] [address] [place] [address]Dr.Phani Mcgregor NormalAvita Health System Bucyrus HospitalComment on above:Performed By: #### ABG ####[facility] Szq[address]ytfmt[address] [place] [address]Dr.Phani Quintero [facility] County Medical CenterComment on above:Performed By: #### ABG ####[facility] Aluengrtyr[address] [place] [address]Dr. Phani [facility] County HospitalComment on above:Performed By: #### ABG ####[facility] [address]twqsmlw[address] [place] [address]Dr. Phani ChangECHOCARDIO M/2D COMPLETEon 87-75-0924KWEDVWDYOB M/2D COMPLETEPatient: FRANKY GAGNON I. Exam Date: 07/08/2022 : 1965 Gender:F Ordering : DR. MAGDALENA DOWNING . 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 on 07/08/2022 at 18:06 Approved by: Chetan Garcia M.D. on 07/08/2022 at 18:14[facility] LUNG CANCER SCREENINGon 54-80-8135VS LUNG CANCER SCREENING EXAMINATION: CT LUNG CANCER [...] Electronically authenticated by: MELISSA ROSENBERG Date: 2022-05-29 09:36NormalThWadsworth-Rittman Hospital AUTO DIFFon 65-99-1656KQZQ #0.1 103/ulNormal0.0-0.1The [facility] HospitalComment on above:Performed By: #### CBC #### [facility] [address] [place] [address] [address] Phani ElBasophils/100 WBC (Bld)0.8 %Normal0.2-2.0[facility] Comment on above:Performed By: #### CBC #### [facility] [address] [place] [address] [address] Phani Cabezas #0.1 103/ulNormal0.0-0.7The [facility] HospitalComment on above: Performed By: #### CBC #### [facility] [address] [place] [address] Dr. Phani Royosinophils/100 WBC (Bld)2.0 %Normal0.9-7.0[facility] Comment on above:Performed By: #### CBC #### [facility] [address] [place] [address] [address] Phani Royrythrocyte distribution width (RBC) [Ratio]14.0 %Ehisah89.0-15.0 [facility] Bucy[facility] HospitalComment on above:Performed By: #### CBC #### [facility] [address] [place] [address] Dr. Phani ElHematocrit (Bld) [Volume fraction]48.7 %Critically high36.0-48.0 [facility]cy[facility] HospitalComment on above:Performed By: #### CBC #### [facility] [address] [place] [address] Dr. Phani ElHemoglobin (Bld) [Mass/Vol]15.9 g/sTUfbguh80.0-16.0[facility] HospitalComment on above:Performed By: #### CBC #### [facility] [address] [place] [address] Dr. Phani Escobar #0.05 10e3/ulCritically high0.00-0.03[facility] Comment on above:Performed By: #### CBC #### [facility] [address] [place] [address] [address] Phani Escobar %0.8 %Critically high0.0-0.5The [facility] HospitalComment on above:Performed By: #### CBC #### [facility] [address] [place] [address] [address] Phani Sol #1.9 103/ulNormal1.2-3.8The [facility] HospitalComment on above:Performed By: #### CBC #### [facility] [address] [place] [address] [address] Phani Rogelhocytes/100 WBC (Bld)30.1 %Aurwoo66.5-60.0The [facility] HospitalComment on above:Performed By: #### CBC #### [facility] [address] [place] [address] [address] Phani GreenUAL DIFF REQNONormalThe [facility] HospitalComment on above: Performed By: #### CBC #### [facility] [address] [place] [address] [address] Phani Hodge (RBC) [Entitic mass]32.9 cjLbgjdt85.7-34.0The [facility] HospitalComment on above:Performed By: #### CBC #### [facility] [address] [place] [address] Dr. Phani Hodge (RBC) [Mass/Vol]32.6 g/wQDpmeln72.9-35.2The [facility] HospitalComment on above:Performed By: #### CBC #### [facility] [address] [place] [address] Dr. Phani Hodge (RBC) [Entitic vol]100.8 fLCritically high81.0-99.0The [facility] HospitalComment on above:Performed By: #### CBC #### [facility] [address] [place] [address] Dr. Phani Noble #0.5 103/ulNormal0.3-0.8The [facility] HospitalComment on above:Performed By: #### CBC #### [facility] [address] [place] [address] [address] Phani Andersonocytes/100 WBC (Bld)7.2 %Normal1.7-12.0The [facility] on above:Performed By: #### CBC #### [facility] [address] [place] [address] [address] Phani DavenportUT #3.8 103/ulNormal1.4-6.5The [facility] HospitalComment on above:Performed By: #### CBC #### [facility] [address] [place] [address] Dr. Phani Davenportutrophils/100 WBC (Bld)59.1 %Vijbhy50.0-75.0The [facility] HospitalComment on above:Performed By: #### CBC #### [facility] [address] [place] [address] Dr. Phani ElPlatelet mean volume (Bld) [Entitic vol]11.0 fLNormal9.5-13.5The [facility] HospitalComment on above:Performed By: #### CBC #### [facility] [address] [place] [address] Dr. Phani ElPLT167 103/rlIztbib086-508Xjj [facility] HospitalComment on above: Performed By: #### CBC #### [facility] [address] [place] [address] Dr. Phani ElRBC4.83 106/ulNormal4.20-5.40The [facility] HospitalComment on above:Performed By: #### CBC #### [facility] [address] [place] [address] Dr. Phani ElWBC6.4 103/ulNormal4.0-11.0The [facility] HospitalComgarden city hospital on above: Performed By: #### CBC #### [facility] [address] [place] [address] Dr. Phani ElGLYCOHEMOGLOBIN A1Con 42-29-9585QKX RECOMMENDATIONSEE BELOWNormal The [facility] HospitalComment on above:Result Comment: ADA RECOMMENDED LIMIT 4.0 - 6.0 ADA THERAPEUTIC TARGET < 7.0 ACTION SUGGESTED > 7.0Performed By: #### A1C ####[facility] [address] [place] [address]Dr. Phani ElGlucose [Mass/Vol]114 mg/dLMiddletown HospitalComgarden city hospital on above:Performed By: #### A1C ####[facility] [address] [place] [address]Dr.Yilan ElHbA1c (Bld) [Mass fraction]5.6 %Normal 4.5-6.2[facility] Bucyrus HospitalComment on above:Performed By: #### A1C ####[facility] [address] [place] [address]DrGerardo ElLIPID PROFILEon 86-30-8662HWMO-HDL RATIO NORMSBellevue Hospital Comment on above:Result Comment: 3.3 - 4.4 LOW RISK 4.4 - 7.1 AVERAGE RISK 7.1 - 11.0 MODERATE RISK >11.0 HIGH RISKPerformed By: #### CMP, LIPID #### [facility] [address] [place] [address] [address] Phani Rojasesterol [Mass/Vol]178 mg/dLNormal<=200The [facility] Comment on above:Performed By: #### CMP, LIPID #### [facility] [address] [place] [address] [address] Phani Rojasesterol in HDL [Mass/Vol]54 mg/yERzkyhb86-29Gpg [facility] on above:Performed By: #### CMP, LIPID #### [facility] [address] [place] [address] [address] Phani Rojasesterol in LDL [Mass/Vol]86.6 mg/dLKeenan Private Hospital on above:Performed By: #### CMP, LIPID #### [facility] [address] [place] [address] [address] Phani Mireles.total/Cholesterol in HDL [Mass ratio]3.3 {ratio} NormalThe [facility]len[facility] HospitalComment on above:Performed By: #### CMP, LIPID #### [facility] [address] [place] [address] [address] Phani Slater NORMAL> or = 60 mg/dl - LOW CARDIOVASCULAR RISK <40 mg/dl - HIGH CARDIOVASCULAR RISKMiddletown HospitalComment on above:Performed By: #### CMP, LIPID #### [facility] [address] [place] [address] [address] Phani ElLDL CALC NORMALSEE BELOWNoAultman Orrville HospitalComment on above:Result Comment: <100 mg/dl OPTIMAL 100 - 129 mg/dl NEAR OR ABOVE OPTIMAL 130 - 159 mg/dl BORDERLINE HIGH 160 - 189 mg/dl HIGH >190 mg/dl VERY HIGH Performed By: #### CMP, LIPID #### [facility] [address] [place] [address] [address] Phani ElTriglyceride [Mass/Vol]187 mg/dLCritically high<=150The [facility] HospitalComment on above:Performed By: #### CMP, LIPID #### [facility] [address] [place] [address] [address] Phani ElVLDL CALC37.4 mg/dLNoAultman Orrville HospitalComment on above: Performed By: #### CMP, LIPID #### [facility] [address] [place] [address] [address] Phani ElPROF 14(COMP METB)on 22-69-9874Ttrpdhm [Mass/Vol]3.6 g/dLNormal 3.4-5.0The [facility] HospitalComment on above:Performed By: #### CMP, LIPID ####[facility] [address] [place] [address]Dr. Phani ElAlbumin/Globulin [Mass ratio]1.1 {ratio}NormalThe [facility] Comment on above:Performed By: #### CMP, LIPID ####[facility] [address] [place] [address]Dr. Phani ElALP [Catalytic activity/Vol]91 U/NGgiriv81-085Sng [facility] HospitalComment on above:Performed By: #### CMP, LIPID ####[facility] [address] [place] [address]Dr. Yilan ChangALT [Catalytic activity/Vol]34 U/L Ekcahy20-24Yiq [facility] HospitalComment on above:Performed By: #### CMP, LIPID ####[facility] [address]axzc[address] [place] [address]Dr. Yilan ChangAnion gap [Moles/Vol]11.6 mmol/LNormalThe [facility] HospitalComment on above:Performed By: #### CMP, LIPID ####[facility] [address] [place] [address]Dr. Yilan ChangAST [Catalytic activity/Vol]18 U/L Lqwquv06-25Qbl [facility] HospitalComment on above:Performed By: #### CMP, LIPID ####[facility] [address] [place], [place] [address]Dr. Yilan ChangBilirubin [Mass/Vol]0.6 mg/dLNormal0.2-1.0The [facility] Comment on above:Performed By: #### CMP, LIPID ####[facility] [address] [place], [place] [address]Dr. Yilan ChangCalcium [Mass/Vol]9.2 mg/dLNormal8.5-10.1The [facility] Hospitalment on above:Performed By: #### CMP, LIPID ####[facility] [address] [place] [address]Dr. Yilan ChangChloride [Moles/Vol]106 mmol/LNormal 98-107The [facility] HospitalComment on above:Performed By: #### CMP, LIPID ####[facility] [address] [place], [place] [address]Dr. Yilan ChangCO2 [Moles/Vol]32.3 mmol/LCritically high21.0-32.0The [facility]itan Hospitalment on above:Performed By: #### CMP, LIPID ####[facility] Koaoqjpgct[address] [place], [place] [address]Dr. Yilan ChangCreatinine [Mass/Vol]1.04 mg/dLCritically high0.55-1.02The [facility] HospitalComment on above:Performed By: #### CMP, LIPID ####[facility] Zvphpoypfu[address] [place], [place] [address]Dr. Yilan ChangEGFR-AF CENTRAL AFRICAN>60Normal>=60The [facility] HospitalComment on above:Performed By: #### CMP, LIPID ####[facility] Eybkdcryjg[address] [place], [place] [address]Dr. Yilan ChangEGFR- NON AF HZRTFCKC42 mL/min/1.93d0Kcttajvwiv low>=60The [facility] HospitalComment on above:Performed By: #### CMP, LIPID ####[facility] Kzfbsnabcw[address] [place], [place] [address]Dr. Lorylan ChangGlobulin (S) [Mass/Vol]3.4 g/dL NormalThe [facility] HospitalComment on above:Performed By: #### CMP, LIPID ####[facility] Dxgxlyuopf[address] [place], [place] [address]Dr. Yilan ChangGlucose [Mass/Vol]124 mg/dLCritically xxvo06-005Xfl [facility] Comment on above:Performed By: #### CMP, LIPID ####[facility] Vmwaxzlnbl[address] [place], [place] [address]Dr. Yilan ChangPotassium [Moles/Vol]3.9 mmol/LNormal3.5-5.1The [facility] HospitalComment on above: Performed By: #### CMP, LIPID ####[facility] Kdaxnsbinj[address] [place], [place] [address]Dr. Yilan ChangProtein [Mass/Vol]7.0 g/dLNormal6.4-8.2 The [facility] HospitalComment on above:Performed By: #### CMP, LIPID ####[facility] Vfrvjvrehl[address] [place], [place] [address]Dr. Yilan El Sodium [Moles/Vol]146 mmol/LCritically axht177-183Zin [facility] HospitalComment on above:Performed By: #### CMP, LIPID ####[facility] Yoeypflimr[address] [place], [place] [address]Dr. Phani ElUrea nitrogen [Mass/Vol]14.0 mg/dLNormal7.0-18.0The [facility] HospitalComment on above:Performed By: #### CMP, LIPID ####[facility] [address] [place], [place] [address]Dr. Phani ElUrea nitrogen/Creatinine [Mass ratio]13.5 mg/mgNoAultman Orrville HospitalComment on above:Performed By: #### CMP, LIPID ####[facility] [address] [place], [place] [address]CgCindy El VITAMIN B12on 97-61-8693Kuqeoelau (Vitamin B12) [Mass/Vol]321.0 pg/mLNormal 193.0-986.0The [facility] HospitalComgarden city hospital on above:Performed By: #### VITOMI, VITB12 #### [facility] [address] [address] [address] Phani ElVITAMIN D 25 OHon 65-36-6835LXY D 25-OH58.7 ng/mLNormalThe [facility] on above:Performed By: #### VITOMI, VITB12 #### [facility] [address] [place] [address] Dr. Phani Marie RANGESSEE [facility] HospitalComg[facility] city [facility] on above: Result Comment: <20 ng/mL Vit D deficient 20 - <30 ng/mL Vit D insufficient 30 - 100 ng/mL Vit D sufficient >100 ng/mL Potential ToxicityPerformed By: #### VITAD, VITB12 #### [facility] [address] [place] [address] Dr. Phani ElXR CHEST 2 Von 63-06-0780WY CHEST 2 VEXAM: XR CHEST 2 V HISTORY: Bronchitis COMPARISON: None. TECHNIQUE: PA and lateral views of the chest. FINDINGS: The cardiomediastinal silhouette is normal. No focal consolidation. There is no pneumothorax. No pleural effusion is noted. The osseous structures are intact. IMPRESSION: No focal consolidation. Electronically authenticated by: LORI FROST Date: 2022-05-05 10:05[facility] HospitalAmbulatory Visit Summaryon 95-16-1113Jezzaexjsd Visit Summary FRANKY GAGNON I :1965 Visit [...] user Vitamin B12 deficiency Vitamin D deficiency [facility] Surgery Office/Clinic Noteon 68-80-4692Wdymcvx Surgery Office/Clinic NoteChief Complaint colonoscopy follow up [...] virus vaccine, inactivated - Not Given Patient RefusesNormalKnox Community HospitalComment on above:Result Comment: Electronically Signed By: NABIL AMADOR, Bryson Steinberg\Date and Time Signed: 03/24/22 13:12 ESTReminderson 09-79-4729Qtdnzulpt From: Kristine Harrison LPN To: N - Clinical; Sent: 03/24/2022 13:05:34 EST Show up: 01/26/2032 07:00:00 EST Subject: colonoscopy recall Due Date/Time: 02/26/2032 07:00:00 EST Reminder/Recall Patient is due for screening colonoscopy 02/26/2032.[facility] HospitalCovid-[facility] PCR ([facility])on 10-45-6888DKVZ-CoV-2 (COVID-19) RNA MARISOL+probe Ql (Unsp spec)DetectedAbnormalNOT DETECTEDThe [facility] HospitalComment on above: Result Comment: This test is not yet approved or cleared by the [place] FDA. When there are no FDA-approved or cleared tests available, and other criteria are met, FDA can make tests available under an emergency access mechanism called an Emergency Use Authorization (EUA). The EUA for this test is supported by the [place] of Health and Human Service's (HHS's) declaration [...] longer be used).Performed By: #### CVDTBH #### [facility] [address] [place] [address] Dr. Phani ElINFLUENZA A AND B AGon 53-33-2430NSFJZDYCMXORAMercy Health [facility] Hospital on above:Result Comment: Negative for Flu A protein angiten. Infection due to Flu A cannot be ruled out. FluA angiten in the sample may be below the detection limit of the test.Performed By: #### INFLUAB ####[facility] [address] [address]Dr. Phani ChangINFLUBNEGHSEE [facility] on above:Result Comment: Negative for Flu B protein antigen. Infection due to Flu B cannot be ruled out. FluB antigen in the sample may be below the detection limit of the test.Performed By: #### INFLUAB ####[facility] [address] [address]Dr. Phani ElINFLUENZA A AGNegativeNormalNEGATIVE SEE COMMENTThe [facility] on above:Performed By: #### INFLUAB ####[facility] Etfebltlwc[address] [place], [place] [address]Dr. Phani ChangINFLUENZA B AGNegativeNormalNEGATIVE SEE COMMENTThe [facility] Comment on above:Performed By: #### INFLUAB ####[facility] Tzsltntyrf[address] [place], [place] [address]Dr. Phani ElCovid-19 PCR ([facility])on 14-69-1210GJQK-CoV-2 (COVID-19) RNA MARISOL+probe Ql (Unsp spec)DetectedAbnormalNOT DETECTEDThe [facility] on above:Result Comment: This test is not yet approved or cleared by the [place] FDA. When there are no FDA-approved or cleared tests available, and other criteria are met, FDA can make tests available under an emergency access mechanism called an Emergency Use Authorization (EUA). The EUA for this test is supported by the [place] of Health and Human Service's declaration that [...] longer be used).Performed By: #### CVDTBH #### [facility] [address] [place] [address] Dr. Phani ElPathology Noteon 94-66-2330Ijefztgji Note [id number]#1.00CD:127NormCleveland Clinic Fairview HospitalOutside Colonoscopyon 09-95-9737Onuxafo Colonoscopy [id number]#1.00CD:127NormCleveland Clinic Fairview HospitalReminderson 37-76-9273Dibwtkwhr From: Kristine Harrison LPN To: Kristine Harrison LPN; Sent: 02/26/2022 11:14:25 EST Show up: 05/18/2022 07:00:00 EDT Subject: Ambulatory Reminder Due Date/Time: 05/27/2022 07:00:00 EDT Reminder/Recall log in to extra lap top in [place] to keep account activeNormCleveland Clinic Fairview HospitalLab Reportson 21-27-5777Mbq Reports [id number]#1.00CD:127[facility] HospitalCovid-19 PCR ([facility])on 07-14-0610JEEB-CoV-2 (COVID-19) RNA MARISOL+probe Ql (Unsp spec)Not detectedNormalNOT DETECTEDThe [facility] HospitalComment on above: Result Comment: This test is not yet approved or cleared by the [place] FDA. When there are no FDA-approved or cleared tests available, and other criteria are met, FDA can make tests available under an emergency access mechanism called an Emergency Use Authorization (EUA). The EUA for this test is supported by the [place] of Health and Human Service's (HHS's) declaration [...] symptoms consistent with SARS-CoV-2.Performed By: #### CVDTBH ####[facility] [address] [place], [place] [address]Lw. Phani ChangPre- Certification Formon 81-35-2392Ylf-Certification Form [id number]#1.00CD:[address] [place], [place] [address]Consent for Procedure/Surgeryon 75-02-8485Ysmpdcz for Procedure/Surgery [id number]#1.00CD:[address] [place], [place] [address]Formson [id number]#1.00CD:[address] [place], [place] [address]Physician Referralon 52-93-9503Osvbhxqns [id number]#1.00CD:[address] [place], [place] [address]MRI Knee w/o Lefton 49-23-0308DUI Knee w/o LeftHISTORY: Continued left-sided knee pain. [...] and signed by Jason Sanchez on 12/25/2021 1505NormalNorthern Gibson General HospitalI LSPINE WO CONon 35-61-6610XDM [facility] WO CON EXAMINATION: MRI LSPINE WO CON [...] or foraminal stenosis Electronically authenticated by: NADINE GUERRA Date: 2021-12-04 17:54[facility] HospitalXR LSPINE 2_3 VIEWSon 50-40-9651CO LSPINE 2_3 VIEWSEXAMINATION: XR LSPINE 2_3 VIEWS HISTORY: Low back pain COMPARISON: 05/26/2016 FINDINGS: BONES: Normal alignment with no acute fracture or spondylolisthesis. Mild degenerative spondylosis and facet osteoarthropathy DISC SPACES: Mild multilevel disc space narrowing most significant at L5-S1 PARASPINOUS: Negative. No paraspinous abnormality is seen. OTHER: Negative. IMPRESSION: Mild degenerative changes Electronically authenticated by: NADINE GUERRA Date: 2021-09-30 07:20[facility] HospitalMRI Knee w/o Lefton 66-53-9609HIZ Knee w/o LeftHISTORY: Knee pain and instability. [...] and signed by Robby Diaz on 07/30/2021 1316NormalNocannon memorial hospitaln [place] Buyer Agent Vital Signs Date TimeVital SignValuePerforming NoyhopzovIwqzrzup46-01-6447 11:25-0400Body rcagka229.1 Melvi Phoenix RAILROAD CAR CLEANING SUPERVISOR-C Work Phone: [facility]09-23-2025 11:25-0400 Body mass index (BMI) [Ratio]41.8 kg/m2Jaymie Phoenix [employer]ILRO[employer] CAR CLE[employer]ING SUPERVISOR-C Work Phone: [facility]09-23-2025 11:25-0400 Body dqyicumfpuj57.5 [degF]Jaymie Phoenix [employer]ILRO[employer] CLEANING SUPERVISOR-C Work Phone: [facility]09-23-2025 11:25-0400 Body cegwrw180.07 kgJaymie Phoenix RAILRO[employer] CAR CLEANING SUPERVISOR-C Work Phone: [facility]09-23-2025 11:25-0400 Diastolic blood zuoifdhw11 mm[Hg]Jaymie Phoenix [employer]ILRO[employer] CLEANING SUPERVISOR-C Work Phone: [facility]09-23-2025 11:25-0400 Heart rate87 /minLisa Maddyhholz [employer]ILRO[employer] CLEANING SUPERVISOR-C Work Phone: [facility]09-23-2025 11:25-0400 Respiratory rate22 /minLisa Maddyhholz RAILRO[employer] CLEANING SUPERVISOR-C Work Phone: [facility]09-23-2025 11:25-0400 SaO2% (BldA) [Mass fraction]92 %Jaymie Francoisz [employer]ILRO[employer] CLEANING SUPERVISOR-C Work Phone: [facility]09-23-2025 11:25-0400 Systolic blood pniqjovx852 mm[Hg]Jaymie Francoisz [employer]ILRO[employer] CLEANING SUPERVISOR-C Work Phone: [facility]07-24-2025 13:00-0400 Body mass index (BMI) [Ratio]40.77 kg/c7Fwxdhi Beatriz DO Work Phone: [facility] CenterPvtozfkzdc09-45-9547 13:00-0400Body .13 kgLeanne Beatriz DO Work Phone: [facility] CenterLnwcvcukfy20-78-0467 13:00-0400Diastolic blood xqnlqlak94 mm[Hg]Nat Beatriz DO Work Phone: [facility] CenterBnoiyuwecp20-50-5156 13:00-0400Heart rate86 /min Nat Beatriz DO Work Phone: [facility] CenterFtngjrzfwv69-99-5941 13:00-4305FnF4% (BldA) [Mass fraction]94 %Nat Beatriz DO Work Phone: [facility] CenterTarfjkldsy93-63-3743 13:00-0400Systolic blood fipcypoq360 mm[Hg]Nat Beatriz DO Work Phone: [facility] CenterWjehfwaeij57-34-4478 10:09-0400Body mass index (BMI) [Ratio]40.9 kg/m2Lisa Maddyhholz RAILRO[employer] CAR CLEANING SUPERVISOR Work Phone: noMer[facility] John'sKwnngkkvgu05-31-5290 10:09-0400Body temperature 98.1 [degF]Jaymie Phoenix [employer]ILRO[employer] CLEANING SUPERVISOR Work Phone: [facility] CenterNwpdsfvpqg60-59-3046 10:09-0400Body vqopim731.49 kgJaymie Phoenix RAILROAD CAR CLEANING SUPERVISOR Work Phone: [facility] CenterHrbwjvpxyo69-12-7140 10:09-0400Diastolic blood mm[Hg]Jaymie Phoenix [employer]RO[employer] CLEANING SUPERVISOR Work Phone: [facility] CenterJthfaxprka67-64-9309 10:09-0400Heart rate80 /min Jaymie Phoenix [employer]RO[employer] CLE[employer]ING SUPERVISOR Work Phone: [facility] CenterAbnoormjiw89-06-8814 10:09-0400Respiratory rate24 /minJaymie Phoenix [employer]ILRO[employer] CAR CLEANING SUPERVISOR Work Phone: [facility] CenterMougpgeewo14-31-2449 10:09-0308TrK6% (BldA) [Mass fraction]92 %Jaymie Phoenix [employer]RO[employer] CLEANING SUPERVISOR Work Phone: [facility] CenterVewinvxzon60-17-1736 10:09-0400Systolic blood gjynmpio727 mm[Hg]Jaymie Phoenix [employer]ILRO[employer] CLEANING SUPERVISOR Work Phone: [facility] CenterSwgsdysrrd73-18-0269 14:53-0500Body mass index (BMI) [Ratio]40.7 kg/o4Mbatvlacwpx Wong DO Work Phone: [facility] CenterTccnseqqba30-62-1289 14:53-0500Body tzhekx006.95 kgChristopher Wong DO Work Phone: noMer[facility] St[facility] John'sQvgpfhydkm07-04-0107 14:53-0500Diastolic blood hbmfochg01 mm[Hg]Christopher Wong DO Work Phone: noMer[facility] John'sDtckbkjhlw70-12-4739 14:53-0500Heart rate76 /min Christopher Wong DO Work Phone: noMer[facility] St[facility] John'sIvdorekdnz73-49-3361 14:53-3387McV0% (BldA) [Mass fraction]94 %Saumya Back DO Work Phone: noMer[facility] St[facility] John'sBykzhvabhi32-95-1142 14:53-0500Systolic blood rmyvusfg415 mm[Hg]Saumya Back DO Work Phone: noMer[facility] St[facility] John'sFrzoyfesir04-36-7252 13:31-0500Body peszfm567.1 Devinisa Alessandroz [employer]ILRO[employer] CLEANING SUPERVISOR Work Phone: [facility] CenterVpfclvbujh06-01-1141 13:31-0500Body mass index (BMI) [Ratio]40.94 kg/m2Lisa Ducholz [employer]ILRO[employer] CLEANING SUPERVISOR Work Phone: [facility] CenterFglnunyzdd09-03-4269 13:31-0500Body temperature 98.1 [degF]Jaymie Alessandroz [employer]ILRO[employer] CLEANING SUPERVISOR Work Phone: [facility] CenterIetnnpskky04-29-5652 13:31-0500Body aklivl232.58 kgLisa Alessandroz [employer]ILROAD CAR CLEANING SUPERVISOR Work Phone: [facility] CenterNtjkmvmoph75-84-0958 13:31-0500Diastolic blood mm[Hg]Jaymie Ducholz [employer]RO[employer] CLEANING SUPERVISOR Work Phone: [facility] CenterKlrikhdxcd40-45-9244 13:31-0500Heart rate87 /min Jaymie Ducholz [employer]RO[employer] CLEANING SUPERVISOR Work Phone: [facility] CenterYwrfsiqjyq07-28-3911 13:31-0500Respiratory rate18 /minLisa Francoisz [employer]ILRO[employer] CAR CLEANING SUPERVISOR Work Phone: [facility] CenterYmdglpahdm07-15-2176 13:31-9853TlX1% (BldA) [Mass fraction]94 %Jaymie Ducholz [employer]ILRO[employer] CAR CLEANING SUPERVISOR Work Phone: [facility] CenterHpsblczaqr82-03-9426 13:31-0500Systolic blood tbqiwvsa177 mm[Hg]Jaymie Ducholz [employer]ILRO[employer] CLEANING SUPERVISOR Work Phone: [facility] CenterOjpckayumr03-15-8747 10:30-0500Body ihbiyd809.1 Devinisa Ducholz RAILRO[employer] CAR CLEANING SUPERVISOR Work Phone: [facility] CenterGxvkfxgquy28-55-3753 10:30-0500Body mass index (BMI) [Ratio]40.6 kg/m2Lisa Maddyhholz RAILRO[employer] CLEANING SUPERVISOR Work Phone: [address] [place] [address]Hvgdcbglqv18-28-7629 10:30-0500Body temperature 98.1 [degF]Jaymie Maddyhholz [employer]ILRO[employer] CLEANING SUPERVISOR Work Phone: [address] [place] [address]Mdtepyzywy00-06-7260 10:30-0500Body zoaytg279.68 kgLisa Aichholz RAILROAD CAR CLEANING SUPERVISOR Work Phone: [phone] [place], [place] [address]Cpwiqbanls22-52-2623 10:30-0500Diastolic blood gyotsmya08 mm[Hg]Jaymie Aichholz [employer]ILRO[employer] CLEANING SUPERVISOR Work Phone: 1(335)057-[address] [place] [address]-25-2024 10:30-0500Heart rate89 /min Jaymie Maddyhholz [employer]RO[employer] CLEANING SUPERVISOR Work Phone: [address] [address]Sidwbkfejf68-76-2196 10:30-0500Respiratory rate19 /minLisa Maddyhholz [employer]ILRO[employer] CLEANING SUPERVISOR Work Phone: 1([phone])1-[address] [place] [address]-25-2024 10:30-1482PhR1% (BldA) [Mass fraction]91 %Jaymie Maddyhholz [employer]RO[employer] CLEANING SUPERVISOR Work Phone: [address] [place] [address]Cglgdebrrf22-05-1463 10:30-0500Systolic blood ajkipvgy163 mm[Hg]Jaymie Maddyhholz [employer]ILRO[employer] CLEANING SUPERVISOR Work Phone: [facility] CenterFwctsmbnbv96-54-7908 13:13-0500Body dafnxo740.1 cmLisa Aichholz RAILROAD CAR CLEANING SUPERVISOR Work Phone: 1([phone] [place], [place] [address]Bjpognmtfl89-31-8993 13:13-0500Body mass index (BMI) [Ratio]42.9 kg/m2Lisa Aichholz RAILRO[employer] CLEANING SUPERVISOR Work Phone: 1([phone] [place], [place] [address]Xqlyudriox19-38-1504 13:13-0500Body temperature 97.5 [degF]Jaymie Maddyhholz [employer]RO[employer] CLEANING SUPERVISOR Work Phone: [phone] [place], [place] [address]Sjddzoafks81-42-5429 13:13-0500Body maomjp063.94 kgLisa Aichholz RAILRO[employer] CAR CLEANING SUPERVISOR Work Phone: [facility] CenterBijrhvwesf39-30-2938 13:13-0500Diastolic blood ikiygizz01 mm[Hg]Jaymie Alessandroz [employer]ILRO[employer] CLEANING SUPERVISOR Work Phone: [facility] CenterFelrdxsqnb31-88-5904 13:13-0500Heart rate71 /min Jaymie Maddyhholz [employer]RO[employer] CLEANING SUPERVISOR Work Phone: [facility] CenterFuhiwjbsqg66-85-2691 13:13-0500Respiratory rate20 /minLisa Ducholz RAILROAD CAR CLEANING SUPERVISOR Work Phone: [facility] CenterYtjpejzoyt55-30-6909 13:13-3025QgZ4% (BldA) [Mass fraction]95 %Jaymie Ducholz [employer]ILRO[employer] CLEANING SUPERVISOR Work Phone: [facility] CenterBvzpoziebu12-36-9888 13:13-0500Systolic blood kwrourrb315 mm[Hg]Jaymie Ducholz [employer]ILRO[employer] CLEANING SUPERVISOR Work Phone: [facility] CenterEdrsslrhmb09-06-9675 13:35-0500Body cnxaqn682.1 cmLisa Ducholz RAILROAD CAR CLEANING SUPERVISOR Work Phone: [facility] CenterUsgwoyfzfb39-74-3967 13:35-0500Body mass index (BMI) [Ratio]41.6 kg/m2Lisa Ducholz [employer]ILRO[employer] CLEANING SUPERVISOR Work Phone: [facility] CenterZxaquerxwy37-73-6370 13:35-0500Body temperature 98.4 [degF]Jaymie Ducholz RAILRO[employer] CLEANING SUPERVISOR Work Phone: [facility] CenterEuzndquphg65-30-3810 13:35-0500Body otuyqs844.4 kgLisa Maddyhholz RAILROAD CAR CLEANING SUPERVISOR Work Phone: [facility] CenterIzqqjlpzrn75-03-7868 13:35-0500Diastolic blood muszroxw31 mm[Hg]Jaymie Ducholz [employer]ILRO[employer] CLEANING SUPERVISOR Work Phone: [facility] CenterIbwclnvbyi24-47-4941 13:35-0500Heart rate77 /min Jaymie Maddyhholz [employer]RO[employer] CLEANING SUPERVISOR Work Phone: [facility] CenterXespscwake57-11-9609 13:35-0500Respiratory rate18 /minLisa Aichholz RAILRO[employer] CAR CLEANING SUPERVISOR Work Phone: [facility]OMercy [facility] St[facility] John'sHyrledzoxg51-05-2951 13:35-2886KaO7% (BldA) [Mass fraction]95 %Jaymie Alban [employer]ILRO[employer] CAR CLEANING SUPERVISOR Work Phone: [facility]OMercy [facility] St[facility] John'sEvjedngefz38-15-2806 13:35-0500Systolic blood yppncnes786 mm[Hg]Jaymie Alban [employer]RO[employer] CLEANING SUPERVISOR Work Phone: [facility] CenterJknorpcyhb27-12-3347 13:27-0500Blood Pressure LocationMichael NILL General Surgery Ytfntqik51-33-1083 13:27-0500Diastolic blood mm[Hg]Bryson NILL General Surgery Lzfpxthc41-95-3494 13:27-0500Heart rate 72 /minMichael NILL General Surgery Ibwydict25-48-2991 13:27-0500 Respiratory rate16 /minMichael NILL General Surgery Erfccjwh79-62-0579 13:27-0500Systolic blood nqivfnfv578 mm[Hg]Bryson NILL [facility]joint [facility] [place] Encounters Encounter DateEncounter TypeCare ProviderFacilityStart: 11-20-2024 End: 49-64-2327yjppbeltllUilpuee Vamarjitas Giedraitis MDFacility:PM Dionna Start: 10-31-2024 End: 86-82-0254ykvmkifzqnIiwk J Aichholz RAILROAD [employer] CLEANING SUPERVISOR-C Work Phone: [facility] Work Phone: Start: 10-31-2024 End: 33-26-1882Tctrptr encounter procedureJaymie Phoenix RAILRO[employer] CAR CLEANING SUPERVISOR-C-[facility] Work Phone: Start: 18-53-8898Jdonycc encounter procedureJaymie Phoenix [employer]ILRO[employer] CLEANING SUPERVISOR-C Work Phone: [facility]: 22-86-4129Ppy- patient / Non-visitLisa Lolis Phoenix NP-[facility] [employer] Work Phone: Start: 09-29-2024 End: 24-98-6395IfkycwKciy Aichholz RAILROAD CAR CLEANING SUPERVISOR Work Phone: noms CWM FMComment on above:Gastro-esophageal reflux disease without esophagitis; Mixed hyperlipidemia ; Fibromyalgia; Localized edemaStart: 09-19-2024 End: 95-27-9048Cnbhchhiz Result EncounterGeneric External Data ProviderNOMS External Department UnsolicitedStart: 09-19-2024 End: 05-17-2068Zekrmlueg Result EncounterGeneric External Data ProviderNOMS External Department UnsolicitedStart: 08-31-2024 End: 42-85-0281Iviqjz Rafaela Henderson DO Work Phone: noms PULMStart: 08-31-2024 End: 99-86-7004Xtarnm Rafaela Henderson DO Work Phone: noms PULMStart: 08-31-2024 End: 51-52-7693fuamzqhuqiNOXFCG K STRACKNot AvailableStart: 08-31-2024 End: 18-87-3447Sdfztb outpatient new 45 minutesNat Henderson DO Work Phone: noms PULMComment on above:WINSOME (obstructive sleep apnea) (Primary Dx); Cigarette smokerStart: 56-02-8277Tvtamjygfx Earl HADLEY CredibleStart: 08-29-2024 End: 43-34-9367mvcqhlspmwVpneubdiedg AbdelazizFacility:[facility] - TrumbullComment on above:Acute back pain with sciatica, unspecified laterality (Primary Dx)Start: 08-28-2024 End: 10-14-6729Zwtepe OnlyJaymie Phoenix RAILROAD CAR CLEANING SUPERVISOR Work Phone: noms CWM FMComment on above:Acute back pain with sciatica, unspecified laterality (Primary Dx)Start: 08-05-2024 End: 78-12-3031BorfwmNnma Aichholz RAILROAD CAR CLEANING SUPERVISOR Work Phone: NOMS CWM FMComment on above:Tobacco dependenceStart: 07-31-2024 End: 07-45-8764Xkneivh encounter procedureLisa Aichholz RAILROAD [employer] CLEANING SUPERVISOR Work Phone: NOMS CWM FMComment on above:Encounter for subsequent annual wellness visit (AWV) in Medicare patient (Primary Dx); Chronic kidney disease, stage 3a ([facility]); WINSOME (obstructive sleep apnea); COPD mixed type ([facility]); Gastroesophageal reflux disease, unspecified whether esophagitis present; Bilateral lower extremity edema; Anxiety and depression ; Tobacco dependence; Mixed hyperlipidemia ; Fibromyalgia; Environmental and seasonal allergies; Gastro-esophageal reflux disease without esophagitis; Personal history of other diseases of the nervous system and sense organs; Screening for lung cancerStart: 07-31-2024 End: 13-18-0935sxxncwcgazHBXO AICHHOLZNot AvailableStart: 07-05-2024 End: 22-87-7212PmtuesQywa Aichholz RAILROAD CAR CLEANING SUPERVISOR Work Phone: [facility] CWM FMComment on above:FibromyalgiaStart: 06-26-2024 End: 47-31-2643RcolesJcbe Aichholz RAILROAD CAR CLEANING SUPERVISOR Work Phone: [facility] CWM FMComment on above:Tobacco dependence (Primary Dx)Start: 06-14-2024 End: 28-13-3964TvbytfBcym Aichholz RAILROAD CAR CLEANING SUPERVISOR Work Phone: [facility] CWM FMComment on above:Mixed hyperlipidemia ([facility]/HCC)Start: 05-09-2024 End: 27-92-7717OnowmsFfee Aichholz RAILROAD CAR CLEANING SUPERVISOR Work Phone: N[facility] CWM FMComment on above:FibromyalgiaStart: 04-19-2024 End: 58-69-8112WrtfsjUtfy Aichholz RAILROAD CAR CLEANING SUPERVISOR Work Phone: N[facility] CWM FMComment on above:Environmental and seasonal allergies (Primary Dx); COPD mixed type (CMS/HCC)Start: 04-08-2024 End: 31-45-3766LxeaxgHtnf Aichholz RAILROAD CAR CLEANING SUPERVISOR Work Phone: noMS CWM FMComment on above:Fibromyalgia; Localized edema; Mixed hyperlipidemia (CMS/HCC)Start: 03-14-2024 End: 63-04-5157Xlexss outpatient new 30 minutesChristopher Wong DO Work Phone: aNA BELLEVUEComment on above:Drug-induced Parkinson's disease (CMS/HCC) (Primary Dx); TremorStart: 03-14-2024 End: 49-27-2606vhovjrvmfrCHVYFHHMRGT HASSETTNot AvailableStart: 03-14-2024 End: 04-57-4500Kgdkbc flowsheetChristopher Wong DO Work Phone: ana BELLEVUEStart: 03-14-2024 End: 93-23-7880Gzenbf flowsheetChristopher Wong DO Work Phone: aNA BELLEVUEStart: 02-10-2024 End: 03-41-7980Atbmay flowsheetLisa Aichholz [employer] Work Phone: noms CWM FMStart: 02-10-2024 End: 40-83-2939Zrpaiu flowsheetLisa Aichholz [employer] Work Phone: noMS CWM FMStart: 02-10-2024 End: 60-48-9763bupnymcxwuIURD AICHHOLZNot AvailableStart: 02-10-2024 End: 59-02-2802Pmcmoj outpatient visit 25 minutesLisa Aichholz [employer]ILROAD CAR CLEAN[employer] SUPERVISOR Work Phone: NOMS CWM FMComment on above:COPD with acute exacerbation (CMS/HCC) (Primary Dx); Morbid (severe) obesity due to excess calories (CMS/HCC); Body mass index (BMI) 40.0-44.9, adult (CMS/HCC); WINSOME (obstructive sleep apnea); COPD mixed type (CMS/HCC); Gastroesophageal reflux disease, unspecified whether esophagitis present; Tobacco dependence; Gastro-esophageal reflux disease without esophagitis; TremorStart: 02-03-2024 End: 00-39-9767WarioiSlrv Aichholz [employer] CLE[employer] SUPERVISOR Work Phone: noms CWM FMComment on above:FibromyalgiaStart: 01-27-2024 End: 63-51-7154Wpnsiwtvk Result EncounterLisa Aichholz [employer] SUPERVISOR Work Phone: noms External Department UnsolicitedStart: 01-27-2024 End: 22-88-7608Hmcrhvtrf Result EncounterLisa Aichholz [employer] SUPERVISOR Work Phone: noms External Department UnsolicitedStart: 01-24-2024 End: 47-23-3561Cjxhxrxmv Result EncounterLisa Aichholz [employer]ILRO[employer] CLE[employer] SUPERVISOR Work Phone: noms External Department UnsolicitedStart: 01-24-2024 End: 19-49-0498Grooszfat Result EncounterLisa Aichholz [employer]ILRO[employer] CLE[employer] SUPERVISOR Work Phone: noms External Department UnsolicitedStart: 01-03-2024 End: 70-68-2522Vunebx flowsheetLisa Aichholz [employer]RO[employer] CLE[employer] SUPERVISOR Work Phone: noms CWM FMStart: 01-03-2024 End: 40-87-0899Rdzmtr flowsheetLisa Aichholz [employer]RO[employer] CLE[employer] SUPERVISOR Work Phone: noms CWM FMStart: 01-03-2024 End: 86-66-5690Rhlevl outpatient visit 25 minutesLisa Aichholz [employer]ILRO[employer] CLE[employer] SUPERVISOR Work Phone: noms CWM FMComment on above:WINSOME (obstructive sleep apnea) (Primary Dx); COPD mixed type (CMS/[facility]); Primary hypertension (CMS/HCC); Fibromyalgia; BMI 40.0-44.9, adult ([facility]); Tobacco dependence; Mixed hyperlipidemia (CMS/HCC); Vitamin D deficiency; Vitamin B12 deficiency; COPD with acute exacerbation ([facility])Start: 01-03-2024 End: 25-96-6751iugmpnwdvbSXDI AICHHOLZNot AvailableStart: 12-31-2023 End: 98-24-5456WvtpkdIcgq Aichholz [employer]RO[employer] CLE[employer] SUPERVISOR Work Phone: noms CWM FMStart: 12-30-2023 End: 46-87-3297AjguwvZtvl Aichholz [employer]RO[employer] SUPERVISOR Work Phone: noms CWM FMComment on above:FibromyalgiaStart: 12-25-2023 End: 00-76-2081Vfkaspouw Result EncounterGeneric External Data ProviderNOMS External Department UnsolicitedStart: 12-25-2023 End: 38-78-3705Jrorqjmfh Result EncounterGeneric External Data ProviderNOMS External Department UnsolicitedStart: 12-24-2023 End: 60-44-3216Liqpxpueg Result EncounterGeneric External Data ProviderNOMS External Department UnsolicitedStart: 12-24-2023 End: 69-17-5020Nkeoiteqw Result EncounterGeneric External Data ProviderNOMS External Department UnsolicitedStart: 11-24-2023 End: 49-43-3758YgquxjIqkd Aichholz [employer]RO[employer] CLE[employer] SUPERVISOR Work Phone: noms CWM FMComment on above:Mixed hyperlipidemia (CMS/HCC)Start: 10-26-2023 End: 43-67-3763FozvdwVxda Aichholz [employer]ILRO[employer] CLE[employer] SUPERVISOR Work Phone: noms CWM FMComment on above:Fibromyalgia; Gastro-esophageal reflux disease without esophagitisStart: 60-01-7724Saviglm encounter procedureLisa Aichholz [employer]RO[employer] CLE[employer] SUPERVISOR Work Phone: noms HealthcareStart: 05-31-2023 End: 99-24-5144Wvnzcjwpm Result EncounterLisa Aichholz [employer]RO[employer] CLE[employer] SUPERVISOR Work Phone: noms External Department UnsolicitedStart: 05-31-2023 End: 81-40-2868Joxitcapi Result EncounterLisa Aichholz [employer]ILRO[employer] CLE[employer] SUPERVISOR Work Phone: noms External Department UnsolicitedStart: 05-05-2023 End: 87-28-4588Npcubkgiq Result EncounterLisa Aichholz [employer]ILRO[employer] CLE[employer] SUPERVISOR Work Phone: noms External Department UnsolicitedStart: 05-05-2023 End: 63-74-7198Enkldibod Result EncounterLisa Ducholz [employer]ILRO[employer] CLE[employer] SUPERVISOR Work Phone: noms External Department UnsolicitedStart: 05-03-2023 End: 78-61-1532Ohnmzcpxn Result EncounterLisa Ducholz [employer]ILRO[employer] CLEANING SUPERVISOR Work Phone: noms External Department UnsolicitedStart: 05-03-2023 End: 22-04-1253Oqbvunxim Result EncounterLisa Ducholz [employer]ILRO[employer] CLE[employer] SUPERVISOR Work Phone: noms External Department UnsolicitedStart: 04-22-2023 End: 35-48-4663Gbqjftljv Result EncounterGeneric External Data ProviderNOMS External Department UnsolicitedStart: 04-22-2023 End: 25-43-2271Gjlrppcde Result EncounterGeneric External Data ProviderNOMS External Department UnsolicitedStart: 13-02-4501Cqugne flowsheetLisa Maddyhholz [employer]ILRO[employer] CLE[employer] SUPERVISOR Work Phone: noms CWM FMStart: 03-25-2023 End: 65-50-3286Eatwxc flowsheetLisa Castañedahholz [employer]ILRO[employer] CLE[employer] SUPERVISOR Work Phone: noms CWM FMStart: 03-25-2023 End: 69-89-3129Ogfqlqldk Result EncounterLisa Ducholz [employer]ILRO[employer] CLE[employer] SUPERVISOR Work Phone: noms External Department UnsolicitedStart: 03-25-2023 End: 95-31-2096Kixxpx outpatient visit 25 minutesLisa Maddyhholz [employer]ILRO[employer] CLE[employer] SUPERVISOR Work Phone: noms CWM FMComment on above:Edema of right lower extremity (Primary Dx); BMI 40.0-44.9, adult (CMS/HCC); Shortness of breath; COPD mixed type (CMS/HCC); Primary hypertension (CMS/HCC); Bilateral lower extremity edemaStart: 03-24-2023 End: 81-38-1261Yqamhtisr Result EncounterGeneric External Data ProviderNOMS External Department UnsolicitedStart: 03-24-2023 End: 92-96-2882Ttazjdmnt Result EncounterGeneric External Data ProviderNOFL External Department UnsolicitedStart: 03-16-2023 End: 67-81-6748Cjlabn outpatient visit 25 minutesJaymie Phoenix RAILRO[employer] CLE[employer] SUPERVISOR Work Phone: NOQM CWM FMComment on above:COPD mixed type (CMS/HCC) (Primary Dx); Tobacco dependence; BMI 40.0-44.9, adult (CMS/HCC); Body mass index [BMI] 40.0-44.9, adult (Z68.41); Primary hypertension (CMS/HCC); Bilateral lower extremity edemaStart: 90-44-1192yrrfmcyszoORP JAYMIE ALBAN Facility:T3Pasjw: 05-29-2022 End: 99-42-4983rvfcroznrbIYZ JAYMIE ALBANFacility:T0Ehhoy: 05-05-2022 End: 49-10-7596ktwsugmpgqRQW JAYMIE ALBANFacility:L8Hgifi: 04-30-2022 End: 84-17-5136ahjstflyugAC JIM S ALLAN .Facility:G0Acvmx: 03-31-2022 End: 60-87-1316uomjgvvssgQB JIM S ALLAN .Facility:R2Xajlx: 03-27-2022 ambulatoryDR JIM S ALLAN .Facility:H5Lieji: 03-24-2022 End: 20-26-0302ljkzvsloqwMkgyftv R NILLFacility:[facility]: 03-17-2022 ambulatoryMichael R NILLFacility:[facility]: 03-10-2022 End: 94-00-0033ydvqmzjndnGKF JAYMIE ALBANFacility:D8Mnncd: 86-85-3214Svbmfutcp for preprocedural laboratory examinationDR JIM S ALLAN .[facility] Start: 02-28-2022 End: 91-12-3509Ujpchadpm for preprocedural laboratory examinationCNP JAYMIE ALBANFacility:M2Omusu: 02-28-2022 End: 72-48-8722kwibxlybyzKBV JAYMIE ALBANFacility:P8Deheb: 02-25-2022 End: 95-89-0929jsdbmpckzuFqadeuh R NILLFacility:CD:[id number]: 02-21-2022 End: 18-05-6061rzjsrfowqlQU BRYSON NILPiper .Facility:N5Osrhg: 02-06-2022 End: 35-58-9267xvuvumqyeiXVJK MATI .Facility:H1Sjpmk: 02-03-2022 End: 98-81-0171gifttrlijfAkkv Piper PhoenixFacility: [facility]vueStart: 02-03-2022 End: 67-03-6061Ivojnhm encounter procedureMichael R NILL General Surgery Nill/[facility] [place] Start: 01-13-2022 End: 97-74-9223qlmquvmbwsBW JIM S ALLAN .Facility:S0Sgdck: 01-08-2022 End: 67-79-9931rouwmqpeocGS JIM S ALLAN .Facility:A5Alieo: 01-06-2022 ambulatoryMichael R NILLFacility: [facility]vueStart: 12-23-2021 End: 37-27-4798fkubylrorbYL JIM S ALLAN .Facility:W2Rahjt: 12-09-2021 End: 33-07-5286eglpwwuulaDY JIM S ALLAN .Facility:U5Kqkzz: 12-04-2021 End: 90-18-1026ypyzxcybakEUD JAYMIE Aguilarcility:T1Sxjqr: 12-03-2021 End: 55-65-8505mjfjcpoitvPMUXQV RODRIGUEZ .Facility:W0Rnevq: 10-10-2021 End: 46-20-4024mzqudnmrcgBG DEMETRIUS MENDEZ .Facility:R9Baokk: 09-29-2021 End: 84-30-1976nrphysbxjtOUL JAYMIE Aguilarcility:A6Jzhtr: 09-20-2021 End: 47-20-7087unpyjjipvkLKIAPF RODRIGUEZ .Facility: Procedures DateProcedureProcedure DetailPerforming ClinicianStart: 01-93-0072CP LUMBAR SPINE 6V W BENDINGGeneric External Data ProviderStart: 63-41-1475GgqhyesdneaGrbh Alban [employer] CLE[employer] SUPERVISOR Work Phone: Start: 32-22-1270NOR MICROALB CREAT RATIO RANDOMLisa Alessandroz [employer]ILRO[employer] CLE[employer] SUPERVISOR Work Phone: Start: 42-35-1127IQX BASIC METABOLIC PANELLisa Alban [employer]RO[employer] CLE[employer] SUPERVISOR Work Phone: Start: 79-94-2462VPL LIPID PROFILE (FASTING)Jaymie Phoenix [employer]RO[employer] CLE[employer] SUPERVISOR Work Phone: Start: 29-66-7077RCDFN CULTURE 2Generic External Data ProviderStart: 83-99-6480QNQZH CULTURE 1Generic External Data ProviderStart: 68-64-3723SSQPN CULTURE 2Generic External Data ProviderStart: 15-72-3882GFGPV CULTURE 1Generic External Data ProviderStart: 76-28-0739ZM LUNG SCREENING LOW DOSELisa Alban [employer]RO[employer] CLE[employer] SUPERVISOR Work Phone: Start: 46-04-2516XSQ BASIC METABOLIC PANELLisa Alban [employer]RO[employer] CLE[employer] SUPERVISOR Work Phone: Start: 33-80-4702JR ECHO DOPPLER COMPLETELisa Alban [employer]RO[employer] CLE[employer] SUPERVISOR Work Phone: Start: 91-96-3024ZW ABDOMEN PELVIS W CONLisa Phoenix [employer]RO[employer] CLE[employer] SUPERVISOR Work Phone: Start: 56-27-1936DP FACILITY EST COMPREHENSIVEGeneric External Data ProviderStart: 19-85-4228BO EXT VENOUS REFLUX SABRINA LMTDGeneric External Data ProviderStart: 12-77-9812Bmx-scan xtr veins unilateral/limited studyLisa Alban [employer]RO[employer] CLE[employer] SUPERVISOR Work Phone: Start: 19-08-5776GNC CBC WITH AUTO DIFFLisa Alessandroz [employer]ILRO[employer] CLE[employer] SUPERVISOR Work Phone: Start: 46-48-3255UEQ CMP (CMP) (FOR REMOTE [facility]) Jaymie Phoenix [employer]RO[employer] CLE[employer] SUPERVISOR Work Phone: Start: 71-64-2766QHO D-DIMERLisa Alban [employer]RO[employer] CLE[employer] SUPERVISOR Work Phone: Start: 09-51-9266TZ CHEST 2VLisa Alban [employer]RO[employer] CLE[employer] SUPERVISOR Work Phone: Start: 39-88-5367ZhwbcvhrpfdEtdn Alban [employer]RO[employer] CLE[employer] SUPERVISOR Work Phone: Start: 69-95-4764XNGRMQCJY BLOOD PRESSUREGeneric External Data ProviderStart: 00-78-8646ZgifjgzjdmpRdid Alban [employer]RO[employer] CLE[employer] SUPERVISOR Work Phone: Cesarean sectionMichael NILL Ligation of fallopian tubeMichael NILL Repair of meniscusMichael NILL Total abdominal hysterectomy with bilateral salpingo-oophorectomyMichael NILL Plan of Treatment DateCare ActivityDetailAuthorStart: 84-43-6353Bsaazubhh for malignant neoplasm of colonNOMS HealthcareStart: 08-02-2025 End: 70-52-7885Zfapmqc encounter /25/2026 10:30 AM EDT Office Visit [facility] [address] [place] [phone] Jaymie Phoenix NP [address] [place] [address] [facility] CWM FMStart: 06-23-2026Medicare Annual Wellness (AWV) Medicare Annual Wellness (AWV)NOMS HealthcareStart: 53-24-1001Bhdkmwdfs for malignant neoplasm of breastMammogramNOMS HealthcareStart: 55-32-1891Uxsxjfokm for malignant neoplasm of colonFIT-DNANOMS HealthcareStart: 12-07-2024 End: 16-85-8596Dqffbdd encounter procedureNOMS SH PULMStart: 71-05-2899BNIZC-19 Vaccine ( season)COVID-19 Vaccine ( season)[facility] Start: 37-16-3842Wbxnlgcxn vaccinationDA[facility] HealthcareStart: 09-27-2024 End: 51-68-7287Oboyggr encounter dkpmxqikn63/20/2025 8:40 AM EDT Office Visit [facility] FM [address] [place] [address] Jaymie Phoenix, [employer]RO[employer] SUPERVISOR [address] [place] [address] [facility] FMStart: 08-31-2024 End: 35-71-5465Qmkkkzf encounter ivhfjdojo04/24/2025 1:00 PM EDT Consult [facility] [address] [place] [address] Nat Henderson DO [address] [address] NOMS PULMStart: 07-31-2024 End: 09-95-5551GG Chest for screening WO contrastCT lung screening low dose Imaging Routine Tobacco dependence Expected: 07/31/2024, Expires: 07/31/2025[facility] Work Phone: Comment on above:Expected: 07/31/2024, Expires: 07/31/2025Start: 07-31-2024 End: 17-38-3188Nesuvyg encounter /23/2025 10:30 AM EDT Office Visit [facility] [address] [place] [address] Jaymie Phoenix, RA[employer]RO[employer] SUPERVISOR [address] [place] [address] [facility] FMStart: 60-61-2044Pebnafpgu vaccinationInfluenza Vaccine (#1)NOMS HealthcareComment on above:Postponed from 10/10/2023 (Patient Refused)Start: 06-05-2024 End: 15-93-6755Wqjqwse encounter fsmjcakfa11/28/2025 3:40 PM EDT Office Visit [facility] [place] [address] [place] [address] Sherice Tristan NP [address] [place] [phone] [facility] LYNNtart: 04-25-2025Medicare Annual Wellness (AWV)Medicare Annual Wellness (AWV)NOMS HealthcareStart: 05-10-2024 End: 25-37-1620Rqqtzix encounter ezkjalqwz72/02/2025 2:00 PM EDT Office Visit [facility] [address] [place] [address] Jaymie Phoenix, NILE [address] [place] [address] NOM[facility] CWM FMStart: 12-17-5689Btqvuwdrr vaccinationInfluenza Vaccine (#1)NOMS HealthcareComment on above:Postponed from 10/10/2023 (Patient Refused)Start: 91-67-3414Gprppftnw for malignant neoplasm of breastMammogramNOMS HealthcareStart: 03-14-2024 End: 05-60-5324Fxxibpw encounter /04/2025 3:00 PM EST Office Visit [facility] [address] [place] [phone] Saumya Back DO [address] [place], [place] [phone] TremorMAGDA SAEEDUEComment on above:TremorStart: 01-26-2024 End: 32-42-0841Ohznwhw encounter ekyfgrhib11/18/2024 10:30 AM EST Office Visit [facility] [address] [place] [phone] Jaymie Phoenix, NILE [address] [place] [address] NOM[facility] CWM FMStart: 01-03-2024 End: 782426-ejzkvqtvyuwoub D3 [Mass/volume] in Serum or PlasmaVitamin D 25 hydroxy Lab Routine Vitamin D deficiency Expected: 01/03/2024 (Approximate), Expires: 01/02/2025FL HealthcareComment on above:Expected: 01/03/2024 (Approximate), Expires: 01/02/2025Start: 01-03-2024 End: 01-41-8484Cmdfw metabolic 1998 panel - Serum or PlasmaBasic metabolic panel Lab Routine Primary hypertension (CMS/HCC) Expected: 01/03/2024 (Approximate), Expires: 01/02/2025[facility] HealthcareComment on above:Expected: 01/03/2024 (Approximate), Expires: 01/02/2025Start: 01-03-2024 End: 74-25-1530Bfkxfhoes (Vitamin B12) [Mass/volume] in Serum or PlasmaVitamin B12 Lab Routine Vitamin B12 deficiency Expected: 01/03/2024 (Approximate), Expires: 01/02/2025[facility] HealthcareComment on above:Expected: 01/03/2024 (Approximate), Expires: 01/02/2025Start: 01-03-2024 End: 21-60-1544Ijxtf 1996 panel - Serum or PlasmaLipid panel Lab Routine Mixed hyperlipidemia (CMS/HCC) Expected: 01/03/2024 (Approximate), Expires:01/02/2025 [facility] HealthcareComment on above:Expected: 01/03/2024 (Approximate), Expires: 01/02/2025Start: 01-03-2024 End: 81-59-5757Vtpihoyqtsjg/Creatinine panel in random UrineMicroalbumin / creatinine, urine ratio Lab Routine Primary hypertension (CMS/HCC) Tobacco dependence Expected: 01/03/2024 (Approximate), Expires: 01/02/2025[facility] Healthcare Work Phone: Comment on above:Expected: 01/03/2024 (Approximate), Expires: 01/02/2025Start: 01-03-2024 End: 61-09-7863Ghejgbltzv complete panel - UrineUrinalysis with reflex microscopic (clean catch) Lab Routine Primary hypertension (CMS/HCC) Tobacco dependence Expected: 01/03/2024 (Approximate), Expires: 01/02/2025NOMS HealthcareComment on above:Expected: 01/03/2024 (Approximate), Expires: 01/02/2025Start: 01-03-2024 End: 64-37-2090Rscsauf encounter procedureNOMS CW FMComment on above:WINSOME (obstructive sleep apnea) (Primary Dx); COPD mixed type (CMS/HCC); Primary hypertension (CMS/HCC); Fibromyalgia; BMI 40.0-44.9, adult (CMS/HCC); Tobacco dependence; Mixed hyperlipidemia (CMS/HCC); Vitamin D deficiency; Vitamin B12 deficiencyStart: 87-91-9963Zyvxludeo vaccinationInfluenza Vaccine (#1)NOMS HealthcareStart: 23-49-7294CYyB/Tdap/Td Vaccines (2 - Td or Tdap) DTaP/Tdap/Td Vaccines (2 - Td or Tdap)NOMS HealthcareStart: 47-83-0789Iqtpmcuxf vaccinationInfluenza Vaccine (#1)NOMS HealthcareComment on above:Postponed from 10/09/2022 (Patient Refused)Start: 04-06-2023 End: 32-03-9285Grsdxpb encounter flkhuztih79/27/2024 1:40 PM EST Office Visit [facility] [address] [place] [address] Jaymie Phoenix, RA[employer]RO[employer] CLE[employer] SUPERVISOR [address] [place] [address] NOMS CW FMStart: 03-25-2023 End: 90-02-5609UCQ W Auto Differential panel - BloodCBC and differential Lab Routine Edema of right lower extremity Expected: 03/25/2023 (Approximate), Expires: 03/25/2024NOMS HealthcareComment on above:Expected: 03/25/2023 (Approximate), Expires: 03/25/2024Start: 03-25-2023 End: 03-50-2728Sbjyyrkvatkyo metabolic 2000 panel - Serum or PlasmaComprehensive metabolic panel Lab Routine Edema of right lower extremity Expected: 03/25/2023 (Approximate), Expires: 03/25/2024NOFL HealthcareComment on above:Expected: 03/25/2023 (Approximate), Expires: 03/25/2024Start: 03-25-2023 End: 37-43-2041Bihdos D-dimer FEU [Mass/volume] in Platelet poor plasmaD-dimer, quantitative Lab Routine Edema of right lower extremity Expected: 03/25/2023 (Approximate), Expires: 03/25/2024NOMS HealthcareComment on above:Expected: 03/25/2023 (Approximate), Expires: 03/25/2024Start: 03-25-2023 End: 20-70-7360MD.doppler Lower extremity vein - rightVascular US lower extremity venous duplex right Imaging STAT Edema of right lower extremity Expected: 03/25/2023, Expires: 03/25/2024NO[facility] Healthcare Work Phone: Comment on above:Expected: 03/25/2023, Expires: 03/25/2024Start: 03-25-2023 End: 00-51-6923HP Chest 2 ViewsXR chest 2 views Imaging Routine Edema of right lower extremity Shortness of breath Expected: 03/25/2023, Expires: 03/25/2024 NOMS HealthcareComment on above:Expected: 03/25/2023, Expires: 03/25/2024Start: 42-84-5302Yihmyytqg for malignant neoplasm of cervixHPV/CotestNOMS Healthcare Start: 75-55-1599Vqbiwcukm for malignant neoplasm of cervixPap SmearNOMS HealthcareStart: 11-77-8387UEY Vaccines (1 of 1 - Standard series)MMR Vaccines (1 of 1 - Standard series)[facility] HealthcareStart: 07-09-1964Medicare Annual Wellness (AWV)Medicare Annual Wellness (AWV)NOM HealthcareStart: 1963 Screening for malignant neoplasm of colonNOMS HealthcareStart: 1963 Screening for malignant neoplasm of lungLung Cancer Screening Shared Decision MakingNOMS HealthcareBLOOD CULTURE 1BLOOD CULTURE 1 Lab Routine 12/24/2023 1:45 PM ESTNOMS HealthcareBLOOD CULTURE 1BLOOD CULTURE 1 Lab Routine 12/25/2023 9:09 PM ESTNOMS HealthcareBLOOD CULTURE 2BLOOD CULTURE 2 Lab Routine 12/24/2023 1:51 PM ESTNOMS HealthcareBLOOD CULTURE 2BLOOD CULTURE 2 Lab Routine 12/25/2023 9:20 PM ESTNOFL Healthcare Immunizations Immunization DateImmunizationNotesCare FckkyuaiUbzquwht74-15-2052knxufwm toxoid, reduced diphtheria toxoid, and acellular pertussis vaccine, adsorbedLisa Aichholz [employer] CLE[employer] SUPERVISOR Work Phone: NOFL Wosfgqynwq86-83-3734Kvurukb CVDW-WtZ-8Dvww Aichholz [employer]ILRO[employer] CLEAN[employer] SUPERVISOR Work Phone: NOFL HealthcareNEGATED: Highlighted row has not occurred!12-63-3418jwqltnehn virus vaccine, unspecified formulationMichael NILL General Surgery [place] Payers DatePayer CategoryPayerPolicy [id number] Health [id number] MEDICARE ADVANTAGE [id number] 2016Medicare [id number] 2..1.457894.3.57[id number] 2..1.614105.3.57[id number] 2.16.840.1.447612.3.579.[id number] 2.16.840.1.274209.3.579.[id number] 2.16.840.1.311191.3.579.2.01403-19-7685Wqzwtxq8037738 2.16.840.1.938344.3.579.2.87291-78-4426Sgfnqzd6831213 2.840.1.948986.3.579.2.68618-72-5088Uffalqx3763824 2.840.1.510112.3.579.2.46253-04-2418Qrqflna5627941 2.840.1.470583.3.579.2.59545-88-8492Bivkqsr0539006 2.840.1.709385.3.579.2.34954-50-9463Witorqj4266204 2.840.1.276687.3.579.2.92988-52-6873Ghvvpgm1790358 2.840.1.375328.3.579.2.99975-92-9658Qwpdkhk3014528 2.840.1.273391.3.579.2.71373-13-3025Nlqgtod4006107 2.16840.1.132308.3.579.2.67768-73-6132Hzsqiax7220569 2.840.1.851309.3.579.2.92561-15-7895Pdisrbb1550100 2.840.1.924771.3.579.2.31964-68-7135Rbrwepx1056307 2.16840.1.566407.3.579.2.57589-69-2664Fhvvzhk2559328 2.16.840.1.659892.3.579.2.22920-67-3101Spqbmkb6288964 2.16.840.1.033807.3.579.2.55389-37-0142Npqybdc8656777 2.16.840.1.129177.3.579.2.10891-38-7595Czgknkm3731494 2.16.840.1.595874.3.579.2.01238-91-6076Gyzwnmf9609554 2.16.840.1.123690.3.579.2.23241-29-5754Lsdapdy7310892 2.16840.1.754708.3.579.2.60741-99-3393Fciqbpg6550328 2.16840.1.159195.3.579.2.51146-45-7246Fqxfaqa9024448 2.840.1.342802.3.579.2.79092-31-2143Gchjwii0365861 2.840.1.726120.3.579.2.23302-59-7920Iwtljqo7192828 2.840.1.648046.3.579.2.43680-17-3280Tmzunew27959560 2.840.1.353790.3.579.2.522522-73-2105Ckfnsbv49437595 2.16840.1.656422.3.579.2.286534-69-2344Uumfobh6797294 2.840.1.634891.3.579.2.203129-07-5679Tghepjr1424398 2.840.1.973685.3.579.2.254045-89-3005Crmtuth0340689 2.16840.1.041751.3.579.2.042211-29-1862Ragizkr354850841 2..840.1.607325.3.579.2.14849-50-2168Ohkkhkd Health [id number] [id number] [id number] [id number] Social History DateTypeDetailFacilityStart: 68-92-3721Svaxsao smoking statusHeavy tobacco smoker (finding)[facility]: 04-28-2929Xlnidcl smoking status NeverGeneral Surgery [facility]vueStart: 03-16-2023 End: 79-33-3895Sid [facility]: [facility]20[facility] End: 97-80-1340Ucvgvrm smoking status NHISSmokes tobacco dailyNOMS Healthcare History of tobacco useCigarette SmokerNOMS HealthcareStart: 01-26-2023 End: 48-50-5669Zjvhxhehgk smoked current (pack per day) - Jqjzntmw8CLTH HealthcareStart: 01-26-2023 End: 60-21-1702Njujknb use and exposureSmokeless tobacco non-userNOMS Healthcare Start: 03-16-2023 End: 16-29-8072Vktbljm intakeEx-drinker (finding)[facility] HealthcareStart: 57-91-0323Hnajjmt Bcnvoqs82-14 cigarettes/dayNOMS HealthcareStart: 01-26-2023 Alcohol CommentsociallyNOMS HealthcareStart: 56-24-0934Rwc Assigned At BirthNot on fileNOMS HealthcareWithin the [...] HealthcareTobacco smoking status NHISUnknown if ever smoked [facility] Work Phone: SexFemale (finding)[facility] Start: 27-78-6426Aki Assigned At [facility] Functional Status JdplSyxhgolbbqDyzylkFzfojvsa69-44-2260Pevvhaw Health Questionnaire 2 item (PHQ- 2) [Reported][facility] CenterNxuahqaejy35-41-4335YVL-9 quick depression assessment panel [Reported.PHQ][facility] CenterKhltvzfris54-15-4135Jeena score [AUDIT-C]1 06/03/2023 3:03 PM Clarisa Zarco MANOMS Bpbznfhvra20-44-9348J[place]vaka Health Questionnaire 2 item (PHQ-2) [Reported][facility] CenterSqhmdfoslx86-62-1330HXV-2 quick depression assessment panel [Reported.PHQ][facility] CenterVjdhrqofsd82-91-6412Nolevhj Health Questionnaire 2 item (PHQ-2) [Reported][facility] CenterHoicwrjjls65-91-6509UPU-9 quick depression assessment panel [Reported.PHQ][facility] CenterTymltbrwmj54-50-2963Jopcecf Health Questionnaire 2 item (PHQ-2) [Reported][facility] CenterXervizhicl68-01-2233DXT-9 quick depression assessment panel [Reported.PHQ][facility] CenterGhqrxrfwge14-30-3271 Functional StatusN/[facility] 12-09-2021 to 08-31-2024 Note Date & UzlnXrsaIzmgvyau50-61-9792 History of Present illness Narrative* Nat Henderson, [...] by mouth at bedtime 90 tablet 1 Kthypsg-Vjqlazqrryw-Atlfhklosl (Breztri Aerosphere) 160-9-4.8 MCG/ACT aerosol Inhale 2 [...] (5000 UT) tablet as directed Orally HYDROcodone-acetaminophen (Gatzke) 5-325 MG tablet Take 1 tablet by [...] 40.0 to 44.9 in adult ([facility]) 01/26/2023 COPD mixed type ([facility]) 01/26/2023 DENIES HX OF BLOOD [...] WINSOME. Nat Henderson DO documented in this encounterCass Medical [id number] History of Present illness Narrative* Jaymie Phoenix [...] Morbid (severe) obesity due to excess calories ([facility]) Discussed with patient their BMI (actual, verses [...] EDTAssociated Problem(s): Chronic kidney disease, stage 3a ([facility]) Check Chem 8 * CLARISA MAHONEY - 07/31/2024 10:30 AM EDT 02 range is 89-92% Vrylar 3.5mg once daily Prazosin 3mg nightly- drug induced parkinson's * Jaymiecaesar Phoenix, NILE - 07/31/2024 10:30 AM EDT Images from [...] Nightly atorvastatin (LIPITOR) 20 mg, Oral, Nightly Hzpupbq-Mwyujwvyivu-Gtziqhfhet (Breztri Aerosphere) 160-9-4.8 MCG/ACT aerosol 2 puffs, [...] 40.0 to 44.9 in adult ([facility]) 01/26/2023 COPD mixed type ([facility]) 01/26/2023 DENIES HX OF BLOOD [...] of the risks of continued smoking: stroke, [place], all forms of cancer, lung disease, and . Options for quitting smoking include: cold turkey, hypnosis, acupuncture, nicotine replacement meds(gum, lozenges, and patches), Buproprion, and Varenicline. At this time pt is encouraged to evaluate their goals for wanting to quit smoking, and reach out toprovider when ready to start this process Would like jay, dr gomez said ok to trial, just [...] PFT prior to seeing pulmonology Relevant Medications Pboukrq-Xqrqxridjgz-Mfgvuazwek (Breztri Aerosphere) 160-9-4.8 MCG/ACT aerosol Anxiety and depression Continue with Dr Gomez GERD (gastroesophageal reflux disease) Recommendations: freq small meals, nothing to eat or drink at least 2 hours prior to bed, limit caffeine, alcohol, as well as spicy foods Meds to limit or avoid if possible: NSAIDS Elevate HOB if possible Current med: omeprazole Insurance correspondance about skilled nursing use of PPI Pt has been counseled on the risks of skilled nursing use, would like to continue WINSOME (obstructive [...] MG tablet Chronic kidney disease, stage 3a ([facility]) Check Chem 8 Screening for lung cancer [...] of the risks of continued smoking: stroke, [place], all forms of cancer, lung disease, and [...] possible Current med: omeprazole Insurance correspondance about skilled nursing use of PPI Pt has been counseled on the risks of skilled nursing use, would like to continue * Jaymie [...] [facility] Telephone encounter Note* Telephone Encounter - Jyamie Phoenix NP - 06/14/2024 8:55 PM EDT She is also due for her AWV, please call to schedule [place] [facility] [id number] Miscellaneous Notes* Telephone Encounter - Jaymie Phoenix NP - 06/14/2024 8:55 PM EDT She is also due for her AWV, please call to schedule [place] documented in this [facility]05-07-2025 Telephone encounter Note* Telephone Encounter - Kym Adam - 06/14/2024 4:06 PM EDT 90 day supply [facility] [id number] Miscellaneous Notes* Telephone Encounter - Kym Adam - 06/14/2024 4:06 PM EDT 90 day supply documented in this encounterCass Medical [id number] History of Present illness Narrative* Saumya Back, [...] 40.0 to 44.9 in adult ([facility]) 01/26/2023 COPD mixed type (CMS/HCC) 01/26/2023 DENIES [...] , wrist extensors , wrist flexor , bankruptcy legal assistant strength 5/5. LUE Strength deltoid , biceps , triceps , wrist extensors , wrist flexor , bankruptcy legal assistant strength 5/5. RLE Strength illopsoas, quadriceps, tibialis [...] 1+ . LLE knee reflex 1+ . Forrset's sign negative. 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 Compliant: no documented in this encounterCass Medical [id number] History of Present illness Narrative* Jaymie Phoenix NP - 01/03/2024 11:14 AM ESTAssociated Problem(s): COPD with acute exacerbation ([facility]) Pt reports getting better , feels better than in hospital I.S. 10 times hour every hour awake Recommend quitting smoking Continue nebulizers Refer to pulmonary * CLARISA MAHONEY - 01/03/2024 10:30 AM EST Pt [...] 40.0 to 44.9 in adult ([facility]) 01/26/2023 COPD mixed type ([facility]) 01/26/2023 DENIES HX OF BLOOD BORNE DISEASES Depression ([facility]) Fibromyalgia Open wound of left foot 01/26/2023 Open wound of second toe 01/26/2023 Other acute sinusitis 01/26/2023 Primary hypertension ([facility]) 01/26/2023 Tobacco dependence 01/26/2023 Past [...] of the risks of continued smoking: stroke, [place], all forms of cancer, lung disease, and [...] Vitamin D 25 hydroxy BMI 40.0-44.9, adult ([facility]) WINSOME (obstructive sleep apnea) - Primary Non compliant with use of PAP COPD with acute exacerbation ([facility]) Pt reports getting better , feels better than in hospital I.S. 10 times hour every hour awake Recommend quitting smoking Continue nebulizers Refer to pulmonary * Jaymie Phoenix NP - 01/03/2024 6:48 AM ESTAssociated Problem(s): Mixed hyperlipidemia ([facility]) On statin therapy, check labs * Jaymie Phoenix NP - 01/03/2024 6:46 AM ESTAssociated Problem(s): Tobacco dependence The patient has been advised of the risks of continued smoking: stroke, [place], all forms of cancer, lung disease, and [...] 6:46 AM ESTAssociated Problem(s): Fibromyalgia Continue with Lyriccaesar OARRS reviewed * Jaymie Phoenix NP - 01/03/2024 6:45 AM ESTAssociated Problem(s): Primary hypertension ([facility]) Please check blood pressure daily and record [...] - 01/03/2024 10:30 AM EST Referral to patent prosecution attorney Consider patches documented in this [facility]02-15-2024 [...] Problem(s): Shortness of breath Chest xray * CLARISA MAHONEY - 03/25/2023 1:00 PM EST Swelling [...] 40.0 to 44.9 in adult ([facility]) 01/26/2023 COPD mixed type ([facility]) 01/26/2023 DENIES HX OF BLOOD BORNE DISEASES Depression ([facility]) Fibromyalgia Open wound of left foot 01/26/2023 Open wound of second toe 01/26/2023 Other acute sinusitis 01/26/2023 Primary hypertension ([facility]) 01/26/2023 Tobacco dependence 01/26/2023 Past [...] XR chest 2 views documented in this encounterCass Medical [id number] History of Present illness Narrative* Jaymie Phoenix [...] At goal, no changes in doses * CLARISA MAHONEY - 03/16/2023 1:20 PM EST Right ankle swelling even when during elevation * Jaymiecaesar Phoenix NP - 03/16/2023 1:20 PM EST Images from [...] 40.0 to 44.9 in adult ([facility]) 01/26/2023 COPD mixed type ([facility]) 01/26/2023 DENIES HX OF BLOOD BORNE DISEASES Depression ([facility]) Fibromyalgia Open wound of left [...] in albuterol inhaler prn BMI 40.0-44.9, adult ([facility]) Other Visit Diagnoses Body mass index [BMI] 40.0-44.9, adult (Z68.41) documented in this encounterCass Medical [id number] NoteCONSULTATION CONSULTATION DATE: 04/30/2022 TO: Nurse Alban [...] our office on an as needed basis.[facility] [id number] Note OPERATIVE NOTE OPERATION DATE: 02/25/2022 PREOPERATIVE [...] room in good condition. CC: [facility] NoteCONSULTATION CONSULTATION DATE: 02/06/2022 HISTORY OF PRESENT [...] be followed up in the clinic thereafter.[facility] [id number] NoteChief Complaint consultation for positive Cologuard HPI [...] last 30 days Tobacco (more content not included)...[facility] HospitalComment on above:Result Comment: Electronically Signed By: NABIL AMADOR, Bryson Steinberg\Date and Time Signed: 02/03/22 13:53 [id number] NoteCONSULTATION CONSULTATION DATE: 01/08/2022 HISTORY OF PRESENT [...] be followed up in the clinic thereafter.[facility] [id number] NoteCONSULTATION CONSULTATION DATE: 12/09/2021 CHIEF COMPLAINT: Low [...] like to proceed. CC: Jaymie Phoenix, CNPThe [facility]na HospitalEvaluation + Plan note No data available for this section General Surgery [place] Evaluation note* Diagnosis COPD mixed type (CMS/HCC)- Primary Tobacco dependence Tobacco use disorder BMI 40.0-44.9, adult (CMS/HCC) Body mass index [BMI] 40.0-44.9, adult (Z68.41) Primary hypertension (CMS/HCC) Unspecified essential hypertension Bilateral lower extremity edema documented in this encounter [facility] HealthcareEvaluation note* Diagnosis Edema of right lower extremity- Primary BMI 40.0-44.9, adult (CMS/HCC) Shortness of breath COPD mixed type (CMS/HCC) Primary hypertension (CMS/HCC) Unspecified essential hypertension Bilateral lower extremity edema documented in this encounter [facility] HealthcareEvaluation note* Diagnosis Primary hypertension (CMS/HCC)- Primary [...] dependence Tobacco use disorder BMI 40.0-44.9, adult ([facility]) COPD mixed type ([facility]) WINSOME (obstructive sleep apnea) Obstructive sleep apnea (adult) (pediatric) Encounter for subsequent annual wellness visit (AWV) in Medicare patient- Primary Edema of right lower extremity Anxiety and depression ([facility]) Tobacco dependence Tobacco use disorder BMI 40.0-44.9, adult ([facility]) Fibromyalgia Unspecified myalgia and myositis Primary hypertension ([facility]) Unspecified essential hypertension COPD mixed type ([facility]) Mixed hyperlipidemia ([facility] Mixed hyperlipidemia documented in this encounter [facility]* Diagnosis Primary hypertension ([facility])- Primary Unspecified essential hypertension Mixed hyperlipidemia ([facility]) Mixed hyperlipidemia Fibromyalgia Unspecified myalgia and myositis Migraine without aura and without status migrainosus, not intractable ([facility]) Class 3 severe obesity due to excess calories without serious comorbidity with body mass index (BMI) of 40.0 to 44.9 in adult ([facility]) Tobacco dependence Tobacco use disorder Bilateral lower extremity edema Acute non-recurrent sinusitis of other sinus COPD mixed type ([facility]) Open wound of second toe of left foot, initial encounter Open wound of left foot, initial encounter COPD mixed type ([facility])- Primary Tobacco dependence Tobacco use disorder BMI 40.0-44.9, adult ([facility]) Body mass index [BMI] 40.0-44.9, adult (Z68.41) Primary hypertension ([facility]) Unspecified essential hypertension Bilateral lower extremity edema Edema of right lower extremity- Primary BMI 40.0-44.9, adult ([facility]) Shortness of breath COPD mixed type ([facility]) Primary hypertension ([facility]) Unspecified essential hypertension Bilateral lower extremity edema Bilateral lower extremity edema- Primary Primary hypertension ([facility]) Unspecified essential hypertension COPD mixed type ([facility]) Class 3 severe obesity due to excess calories without serious comorbidity with body mass index (BMI) of 40.0 to 44.9 in adult ([facility]) Tobacco dependence Tobacco use disorder Bilateral lower extremity edema- Primary Tobacco dependence Tobacco use disorder BMI 40.0-44.9, adult ([facility]) COPD mixed type ([facility]) WINSOME (obstructive sleep apnea) Obstructive sleep apnea (adult) (pediatric) Encounter for subsequent annual wellness visit (AWV) in Medicare patient- Primary Edema of right lower extremity Anxiety and depression ([facility]) Tobacco dependence Tobacco use disorder BMI 40.0-44.9, adult ([facility]) Fibromyalgia Unspecified myalgia and myositis Primary hypertension ([facility]) Unspecified essential hypertension COPD mixed type ([facility]) Fibromyalgia Unspecified myalgia and myositis documented in this encounter [facility] HealthcareEvaluation note* Diagnosis Primary hypertension ([facility])- Primary Unspecified essential hypertension Mixed hyperlipidemia ([facility]) Mixed hyperlipidemia Fibromyalgia Unspecified myalgia and myositis Migraine without aura and without status migrainosus, not intractable ([facility]) Class 3 severe obesity due to excess calories without serious comorbidity with body mass index (BMI) of 40.0 to 44.9 in adult ([facility]) Tobacco dependence Tobacco use disorder Bilateral lower extremity edema Acute non-recurrent sinusitis of other sinus COPD mixed type ([facility]) Open wound of second toe of left foot, initial encounter Open wound of left foot, initial encounter COPD mixed type ([facility])- Primary Tobacco dependence Tobacco use disorder BMI 40.0-44.9, adult ([facility]) Body mass index [BMI] 40.0-44.9, adult (Z68.41) Primary hypertension ([facility]) Unspecified essential hypertension Bilateral lower extremity edema Edema of right lower extremity- Primary BMI 40.0-44.9, adult ([facility]) Shortness of breath COPD mixed type ([facility]) Primary hypertension ([facility]) Unspecified essential hypertension Bilateral lower extremity edema Bilateral lower extremity edema- Primary Primary hypertension ([facility]) Unspecified essential hypertension COPD mixed type ([facility]) Class 3 severe obesity due to excess calories without serious comorbidity with body mass index (BMI) of 40.0 to 44.9 in adult ([facility]) Tobacco dependence Tobacco use disorder Bilateral lower extremity edema- Primary Tobacco dependence Tobacco use disorder BMI 40.0-44.9, adult ([facility]) COPD mixed type ([facility]) WINSOME (obstructive sleep apnea) Obstructive sleep apnea (adult) (pediatric) Encounter for subsequent annual wellness visit (AWV) in Medicare patient- Primary Edema of right lower extremity Anxiety and depression ([facility]) Tobacco dependence Tobacco use disorder BMI 40.0-44.9, adult ([facility]) Fibromyalgia Unspecified myalgia and myositis Primary hypertension (CMS/HCC) Unspecified essential hypertension COPD mixed type (CMS/HCC) WINSOME (obstructive sleep apnea)- Primary Obstructive sleep apnea (adult) (pediatric) COPD mixed type (CMS/HCC) Primary hypertension (CMS/HCC) Unspecified essential hypertension Fibromyalgia Unspecified myalgia and myositis BMI 40.0-44.9, adult ([facility]) Tobacco dependence Tobacco use disorder Mixed hyperlipidemia (CMS/HCC) Mixed hyperlipidemia Vitamin D deficiency Vitamin B12 deficiency Other B-complex deficiencies COPD with acute exacerbation ([facility]) documented in this encounter [facility]* Diagnosis Fibromyalgia Unspecified myalgia and myositis Gastro-esophageal reflux disease without esophagitis documented in this encounter [facility]* Diagnosis Primary hypertension ([facility])- Primary Unspecified essential hypertension Mixed hyperlipidemia ([facility]) Mixed hyperlipidemia Fibromyalgia Unspecified myalgia and myositis Migraine without aura and without status migrainosus, not intractable ([facility]) Class 3 severe obesity due to excess calories without serious comorbidity with body mass index (BMI) of 40.0 to 44.9 in adult ([facility]) Tobacco dependence Tobacco use disorder Bilateral lower extremity edema Acute non-recurrent sinusitis of other sinus COPD mixed type ([facility]) Open wound of second toe of left foot, initial encounter Open wound of left foot, initial encounter COPD mixed type (CMS/HCC)- Primary Tobacco dependence Tobacco use disorder BMI 40.0-44.9, adult ([facility]) Body mass index [BMI] 40.0-44.9, adult (Z68.41) Primary hypertension ([facility]) Unspecified essential hypertension Bilateral lower extremity edema Edema of right lower extremity- Primary BMI 40.0-44.9, adult ([facility]) Shortness of breath COPD mixed type (CMS/HCC) Primary hypertension (CMS/HCC) Unspecified essential hypertension Bilateral lower extremity edema Bilateral lower extremity edema- Primary Primary hypertension ([facility]) Unspecified essential hypertension COPD mixed type (CMS/HCC) Class 3 severe obesity due to excess calories without serious comorbidity with body mass index (BMI) of 40.0 to 44.9 in adult ([facility]) Tobacco dependence Tobacco use disorder Bilateral lower extremity edema- Primary Tobacco dependence Tobacco use disorder BMI 40.0-44.9, adult ([facility]) COPD mixed type ([facility]) WINSOME (obstructive sleep apnea) Obstructive sleep apnea (adult) (pediatric) Encounter for subsequent annual wellness visit (AWV) in Medicare patient- Primary Edema of right lower extremity Anxiety and depression ([facility]) Tobacco dependence Tobacco use disorder BMI 40.0-44.9, adult ([facility]) Fibromyalgia Unspecified myalgia and myositis Primary hypertension (CMS/HCC) Unspecified essential hypertension COPD mixed type (CMS/HCC) WINSOME (obstructive sleep apnea)- Primary Obstructive sleep apnea (adult) (pediatric) COPD mixed type (CMS/HCC) Primary hypertension (CMS/HCC) Unspecified essential hypertension Fibromyalgia Unspecified myalgia and myositis BMI 40.0-44.9, adult ([facility]) Tobacco dependence Tobacco use disorder Mixed hyperlipidemia (CMS/HCC) Mixed hyperlipidemia Vitamin D deficiency Vitamin B12 deficiency Other B-complex deficiencies COPD with acute exacerbation ([facility]) Fibromyalgia Unspecified myalgia and myositis documented in this encounter [facility] HealthcareEvaluation note* Diagnosis Primary hypertension ([facility])- Primary Unspecified essential hypertension Mixed hyperlipidemia (CMS/HCC) Mixed hyperlipidemia Fibromyalgia Unspecified myalgia and myositis Migraine without aura and without status migrainosus, not intractable ([facility]) Class 3 severe obesity due to excess calories without serious comorbidity with body mass index (BMI) of 40.0 to 44.9 in adult ([facility]) Tobacco dependence Tobacco use disorder [...] right lower extremity- Primary BMI 40.0-44.9, adult ([facility]) Shortness of breath COPD mixed type (CMS/HCC) Primary hypertension (CMS/HCC) Unspecified essential hypertension Bilateral lower extremity edema Bilateral lower extremity edema- Primary Primary hypertension (CMS/HCC) Unspecified essential hypertension COPD mixed type (CMS/HCC) Class 3 severe obesity due to excess calories without serious comorbidity with body mass index (BMI) of 40.0 to 44.9 in adult ([facility]) Tobacco dependence Tobacco use disorder Bilateral lower extremity edema- Primary Tobacco dependence Tobacco use disorder BMI 40.0-44.9, adult ([facility]) COPD mixed type ([facility]) WINSOME (obstructive sleep apnea) Obstructive sleep apnea (adult) (pediatric) Encounter for subsequent annual wellness visit (AWV) in Medicare patient- Primary Edema of right lower extremity Anxiety and depression ([facility]) Tobacco dependence Tobacco use disorder BMI 40.0-44.9, adult ([facility]) Fibromyalgia Unspecified myalgia and myositis Primary hypertension ([facility]) Unspecified essential hypertension COPD mixed type ([facility]) WINSOME (obstructive sleep apnea)- Primary Obstructive sleep apnea (adult) (pediatric) COPD mixed type ([facility]) Primary hypertension ([facility]) Unspecified essential hypertension Fibromyalgia Unspecified myalgia and myositis BMI 40.0-44.9, adult [place] Tobacco dependence Tobacco use disorder Mixed hyperlipidemia ([facility]) Mixed hyperlipidemia Vitamin D deficiency Vitamin B12 deficiency Other B-complex deficiencies COPD with acute exacerbation ([facility]) COPD with acute exacerbation ([facility])- Primary Morbid (severe) [place] to [place] [place] mass index (BMI) 40.0-44.9, adult ([facility]) WINSOME (obstructive sleep apnea) Obstructive sleep apnea (adult) (pediatric) COPD mixed type ([facility]) Gastroesophageal reflux disease, unspecified whether esophagitis present Tobacco dependence Tobacco use disorder Gastro-esophageal reflux disease without esophagitis Tremor Abnormal involuntary movements documented in this encounter [facility] HealthcareEvaluation note* Diagnosis Primary hypertension ([facility])- Primary Unspecified essential hypertension Mixed hyperlipidemia ([facility]) Mixed hyperlipidemia Fibromyalgia Unspecified myalgia and myositis Migraine without aura and without status migrainosus, not intractable ([facility]) Class 3 severe obesity due to excess calories without serious comorbidity with body mass index (BMI) of 40.0 to 44.9 in adult ([facility]) Tobacco dependence Tobacco use disorder Bilateral lower extremity edema Acute non-recurrent sinusitis of other sinus COPD mixed type ([facility]) Open wound of second toe of left foot, initial encounter Open wound of left foot, initial encounter COPD mixed type ([facility])- Primary Tobacco dependence Tobacco use disorder BMI 40.0-44.9, [place] [place] Body mass index [BMI] 40.0-44.9, adult (Z68.41) Primary hypertension (CMS/HCC) Unspecified essential hypertension Bilateral lower extremity edema Edema of right lower extremity- Primary BMI 40.0-44.9, adult ([facility]) Shortness of breath COPD mixed type (CMS/HCC) Primary hypertension (CMS/HCC) Unspecified essential hypertension Bilateral lower extremity edema Bilateral lower extremity edema- Primary Primary hypertension ([facility]) Unspecified essential hypertension COPD mixed type (CMS/HCC) Class 3 severe obesity due to excess calories without serious comorbidity with body mass index (BMI) of 40.0 to 44.9 in adult ([facility]) Tobacco dependence Tobacco use disorder Bilateral lower extremity edema- Primary Tobacco dependence Tobacco use disorder BMI 40.0-44.9, adult ([facility]) COPD mixed type ([facility]) WINSOME (obstructive sleep apnea) Obstructive sleep apnea (adult) (pediatric) Encounter for subsequent annual wellness visit (AWV) in Medicare patient- Primary Edema of right lower extremity Anxiety and depression ([facility]) Tobacco dependence Tobacco use disorder BMI 40.0-44.9, adult ([facility]) Fibromyalgia Unspecified myalgia and myositis Primary hypertension ([facility]) Unspecified essential hypertension COPD mixed type ([facility]) WINSOME (obstructive sleep apnea)- Primary Obstructive sleep apnea (adult) (pediatric) COPD mixed type ([facility]) Primary hypertension ([facility]) Unspecified essential hypertension Fibromyalgia Unspecified myalgia and myositis BMI 40.0-44.9, adult ([facility] Tobacco dependence Tobacco use disorder Mixed hyperlipidemia ([facility]) Mixed hyperlipidemia Vitamin D deficiency Vitamin B12 deficiency Other B-complex deficiencies COPD with acute exacerbation ([facility]) COPD with acute exacerbation ([facility])- Primary Morbid (severe) obesity due to excess calories ([facility]) Body mass index (BMI) 40.0-44.9, adult ([facility]) WINSOME (obstructive sleep apnea) Obstructive sleep apnea (adult) (pediatric) COPD mixed type ([facility]) Gastroesophageal reflux disease, unspecified whether esophagitis present Tobacco dependence Tobacco use disorder Gastro-esophageal reflux disease without esophagitis Tremor Abnormal involuntary movements 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 Secondary Parkinsonism Tremor Abnormal involuntary movements documented in this encounter [facility] HealthcareEvaluation note* Diagnosis Primary hypertension ([facility])- Primary Unspecified essential hypertension Mixed hyperlipidemia ([facility]) Mixed hyperlipidemia Fibromyalgia Unspecified myalgia and myositis Migraine without aura and without status migrainosus, not intractable ([facility]) Class 3 severe obesity due to excess calories without serious comorbidity with body mass index (BMI) of 40.0 to 44.9 in adult ([facility]) Tobacco dependence Tobacco use disorder Bilateral lower extremity edema Acute non-recurrent sinusitis of other sinus COPD mixed type ([facility]) Open wound of second toe of left foot, initial encounter Open wound of left foot, initial encounter COPD mixed type (CMS/HCC)- Primary Tobacco dependence Tobacco use disorder BMI 40.0-44.9, adult ([facility]) Body mass index [BMI] 40.0-44.9, adult (Z68.41) Primary hypertension ([facility]) Unspecified essential hypertension Bilateral lower extremity edema Edema of right lower extremity- Primary BMI 40.0-44.9, adult ([facility]) Shortness of breath COPD mixed type ([facility]) Primary hypertension ([facility]) Unspecified essential hypertension Bilateral lower extremity edema Bilateral lower extremity edema- Primary Primary hypertension ([facility]) Unspecified essential hypertension COPD mixed type ([facility]) Class 3 severe obesity due to excess calories without serious comorbidity with body mass index (BMI) of 40.0 to 44.9 in adult ([facility]) Tobacco dependence Tobacco use disorder Bilateral lower extremity edema- Primary Tobacco dependence Tobacco use disorder BMI 40.0-44.9, adult ([facility]) COPD mixed type ([facility]) WINSOME (obstructive sleep apnea) Obstructive sleep apnea (adult) (pediatric) Encounter for subsequent annual wellness visit (AWV) in Medicare patient- Primary Edema of right lower extremity Anxiety and depression ([facility]) Tobacco dependence Tobacco use disorder BMI 40.0-44.9, adult ([facility]) Fibromyalgia Unspecified myalgia and myositis Primary hypertension ([facility]) Unspecified essential hypertension COPD mixed type ([facility]) WINSOME (obstructive sleep apnea)- Primary Obstructive sleep apnea (adult) (pediatric) COPD mixed type ([facility]) Primary hypertension ([facility] Unspecified essential hypertension Fibromyalgia Unspecified myalgia and myositis BMI 40.0-44.9, adult ([facility] Tobacco dependence Tobacco use disorder Mixed hyperlipidemia ([facility] Mixed hyperlipidemia Vitamin D deficiency Vitamin B12 deficiency Other B-complex deficiencies COPD with acute exacerbation ([facility] COPD with acute exacerbation ([facility])- Primary Morbid (severe) obesity due to excess calories ([facility]) Body mass index (BMI) 40.0-44.9, adult ([facility]) WINSOME (obstructive sleep apnea) Obstructive sleep apnea (adult) (pediatric) COPD mixed type ([facility]) Gastroesophageal reflux disease, unspecified whether esophagitis present Tobacco dependence Tobacco use disorder Gastro-esophageal reflux disease without esophagitis Tremor Abnormal involuntary movements Fibromyalgia Unspecified myalgia and myositis Localized edema Edema Mixed hyperlipidemia ([facility]) Mixed hyperlipidemia documented in this encounter [facility] HealthcareEvaluation note* Diagnosis Primary hypertension ([facility])- Primary Unspecified essential hypertension Mixed hyperlipidemia ([facility]) Mixed hyperlipidemia Fibromyalgia Unspecified myalgia and myositis Migraine without aura and without status migrainosus, not intractable ([facility]) Class 3 severe obesity due to excess calories without serious comorbidity with body mass index (BMI) of 40.0 to 44.9 in adult ([facility]) Tobacco dependence Tobacco use disorder Bilateral lower extremity edema Acute non-recurrent sinusitis of other sinus COPD mixed type ([facility]) Open wound of second toe of left foot, initial encounter Open wound of left foot, initial encounter COPD mixed type ([facility])- Primary Tobacco dependence Tobacco use disorder BMI 40.0-44.9, adult ([facility]) Body mass index [BMI] 40.0-44.9, adult (Z68.41) Primary hypertension ([facility]) Unspecified essential hypertension Bilateral lower extremity edema Edema of right lower extremity- Primary BMI 40.0-44.9, adult ([facility]) Shortness of breath COPD mixed type ([facility]) Primary hypertension ([facility]) Unspecified essential hypertension Bilateral lower extremity edema Bilateral lower extremity edema- Primary Primary hypertension ([facility]) Unspecified essential hypertension COPD mixed type ([facility]) Class 3 severe obesity due to excess calories without serious comorbidity with body mass index (BMI) of 40.0 to 44.9 in adult ([facility]) Tobacco dependence Tobacco use disorder Bilateral lower extremity edema- Primary Tobacco dependence Tobacco use disorder BMI 40.0-44.9, adult ([facility]) COPD mixed type ([facility]) WINSOME (obstructive sleep apnea) Obstructive sleep apnea (adult) (pediatric) Encounter for subsequent annual wellness visit (AWV) in Medicare patient- Primary Edema of right lower extremity Anxiety and depression ([facility]) Tobacco dependence Tobacco use disorder BMI 40.0-44.9, adult ([facility]) Fibromyalgia Unspecified myalgia and myositis Primary hypertension ([facility]) Unspecified essential hypertension COPD mixed type ([facility]) WINSOME (obstructive sleep apnea)- Primary Obstructive sleep apnea (adult) (pediatric) COPD mixed type ([facility]) Primary hypertension ([facility] Unspecified essential hypertension Fibromyalgia Unspecified myalgia and myositis BMI 40.0-44.9, adult ([facility] Tobacco dependence Tobacco use disorder Mixed hyperlipidemia ([facility] Mixed hyperlipidemia Vitamin D deficiency Vitamin B12 deficiency Other B-complex deficiencies COPD with acute exacerbation ([facility] COPD with acute exacerbation ([facility])- Primary Morbid (severe) obesity due to excess calories ([facility]) Body mass index (BMI) 40.0-44.9, adult ([facility]) WINSOME (obstructive sleep apnea) Obstructive sleep apnea (adult) (pediatric) COPD mixed type ([facility]) Gastroesophageal reflux disease, unspecified whether esophagitis present Tobacco dependence Tobacco use disorder Gastro-esophageal reflux disease without esophagitis Tremor Abnormal involuntary movements Environmental and seasonal allergies- Primary COPD mixed type ([facility]) documented in this encounter [facility] HealthcareEvaluation note* Diagnosis Primary hypertension ([facility])- Primary Unspecified essential hypertension Mixed hyperlipidemia ([facility]) Mixed hyperlipidemia Fibromyalgia Unspecified myalgia and myositis Migraine without aura and without status migrainosus, not intractable ([facility]) Class 3 severe obesity due to excess calories without serious comorbidity with body mass index (BMI) of 40.0 to 44.9 in adult Tobacco dependence Tobacco use disorder Bilateral lower extremity edema Acute non-recurrent sinusitis of other sinus COPD mixed type ([facility]) Open wound of second toe of left foot, initial encounter Open wound of left foot, initial encounter COPD mixed type ([facility])- Primary Tobacco dependence Tobacco use disorder BMI 40.0-44.9, adult ([facility]) Body mass index [BMI] 40.0-44.9, adult (Z68.41) Primary hypertension ([facility]) Unspecified essential hypertension Bilateral lower extremity edema Edema of right lower extremity- Primary BMI 40.0-44.9, adult ([facility]) Shortness of breath COPD mixed type ([facility]) Primary hypertension ([facility]) Unspecified essential hypertension Bilateral lower extremity edema Bilateral lower extremity edema- Primary Primary hypertension ([facility]) Unspecified essential hypertension COPD mixed type (CMS/HCC) Class 3 severe obesity due to excess calories without serious comorbidity with body mass index (BMI) of 40.0 to 44.9 in adult Tobacco dependence Tobacco use disorder Bilateral lower extremity edema- Primary Tobacco dependence Tobacco use disorder BMI 40.0-44.9, adult ([facility]) COPD mixed type ([facility]) WINSOME (obstructive sleep apnea) Obstructive sleep apnea (adult) (pediatric) Encounter for subsequent annual wellness visit (AWV) in Medicare patient- Primary Edema of right lower extremity Anxiety and depression ([facility]) Tobacco dependence Tobacco use disorder BMI 40.0-44.9, adult ([facility]) Fibromyalgia Unspecified myalgia and myositis Primary hypertension ([facility]) Unspecified essential hypertension COPD mixed type ([facility]) WINSOME (obstructive sleep apnea)- Primary Obstructive sleep apnea (adult) (pediatric) COPD mixed type ([facility]) Primary hypertension ([facility] Unspecified essential hypertension Fibromyalgia Unspecified myalgia and myositis BMI 40.0-44.9, adult ([facility] Tobacco dependence Tobacco use disorder Mixed hyperlipidemia ([facility] Mixed hyperlipidemia Vitamin D deficiency Vitamin B12 deficiency Other B-complex deficiencies COPD with acute exacerbation ([facility] COPD with acute exacerbation ([facility])- Primary Morbid (severe) obesity due to excess calories ([facility]) Body mass index (BMI) 40.0-44.9, adult ([facility]) WINSOME (obstructive sleep apnea) Obstructive sleep apnea (adult) (pediatric) COPD mixed type ([facility]) Gastroesophageal reflux disease, unspecified whether esophagitis present Tobacco dependence Tobacco use disorder Gastro-esophageal reflux disease without esophagitis Tremor Abnormal involuntary movements Fibromyalgia Unspecified myalgia and myositis documented in this encounter [facility]* Diagnosis Primary hypertension ([facility])- Primary Unspecified essential hypertension Mixed hyperlipidemia ([facility]) Mixed hyperlipidemia Fibromyalgia Unspecified myalgia and myositis Migraine without aura and without status migrainosus, not intractable ([facility]) Class 3 severe obesity due to excess calories without serious comorbidity with body mass index (BMI) of 40.0 to 44.9 in adult Tobacco dependence Tobacco use disorder Bilateral lower extremity edema Acute non-recurrent sinusitis of other sinus COPD mixed type ([facility]) Open wound of second toe of left foot, initial encounter Open wound of left foot, initial encounter COPD mixed type (CMS/HCC)- Primary Tobacco dependence Tobacco use disorder BMI 40.0-44.9, adult ([facility]) Body mass index [BMI] 40.0-44.9, adult (Z68.41) Primary hypertension (CMS/HCC) Unspecified essential hypertension Bilateral lower extremity edema Edema of right lower extremity- Primary BMI 40.0-44.9, adult ([facility]) Shortness of breath COPD mixed type (CMS/HCC) Primary hypertension (CMS/HCC) Unspecified essential hypertension Bilateral lower extremity edema Bilateral lower extremity edema- Primary Primary hypertension ([facility]) Unspecified essential hypertension COPD mixed type ([facility]) Class 3 severe obesity due to excess calories without serious comorbidity with body mass index (BMI) of 40.0 to 44.9 in adult Tobacco dependence Tobacco use disorder Bilateral lower extremity edema- Primary Tobacco dependence Tobacco use disorder BMI 40.0-44.9, adult ([facility]) COPD mixed type ([facility]) WINSOME (obstructive sleep apnea) Obstructive sleep apnea (adult) (pediatric) Encounter for subsequent annual wellness visit (AWV) in Medicare patient- Primary Edema of right lower extremity Anxiety and depression ([facility]) Tobacco dependence Tobacco use disorder BMI 40.0-44.9, adult ([facility]) Fibromyalgia Unspecified myalgia and myositis Primary hypertension ([facility]) Unspecified essential hypertension COPD mixed type ([facility]) WINSOME (obstructive sleep apnea)- Primary Obstructive sleep apnea (adult) (pediatric) COPD mixed type ([facility]) Primary hypertension ([facility] Unspecified essential hypertension Fibromyalgia Unspecified myalgia and myositis BMI 40.0-44.9, adult ([facility] Tobacco dependence Tobacco use disorder Mixed hyperlipidemia ([facility] Mixed hyperlipidemia Vitamin D deficiency Vitamin B12 deficiency Other B-complex deficiencies COPD with acute exacerbation ([facility] COPD with acute exacerbation ([facility])- Primary Morbid (severe) obesity due to excess calories ([facility]) Body mass index (BMI) 40.0-44.9, adult ([facility]) WINSOME (obstructive sleep apnea) Obstructive sleep apnea (adult) (pediatric) COPD mixed type (CMS/HCC) Gastroesophageal reflux disease, unspecified whether esophagitis present Tobacco dependence Tobacco use disorder Gastro-esophageal reflux disease without esophagitis Tremor Abnormal involuntary movements Mixed hyperlipidemia ([facility]) Mixed hyperlipidemia documented in this encounter [facility] HealthcareEvaluation note* Diagnosis Primary hypertension ([facility])- Primary Unspecified essential hypertension Mixed hyperlipidemia ([facility]) Mixed hyperlipidemia Fibromyalgia Unspecified myalgia and myositis Migraine without aura and without status migrainosus, not intractable ([facility]) Class 3 severe obesity due to excess calories without serious comorbidity with body mass index (BMI) of 40.0 to 44.9 in adult Tobacco dependence Tobacco use disorder Bilateral lower extremity edema Acute non-recurrent sinusitis of other sinus COPD mixed type ([facility]) Open wound of second toe of left foot, initial encounter Open wound of left foot, initial encounter COPD mixed type (CMS/HCC)- Primary Tobacco dependence Tobacco use disorder BMI 40.0-44.9, adult ([facility]) Body mass index [BMI] 40.0-44.9, adult (Z68.41) Primary hypertension ([facility]) Unspecified essential hypertension Bilateral lower extremity edema Edema of right lower extremity- Primary BMI 40.0-44.9, adult ([facility]) Shortness of breath COPD mixed type ([facility] Primary hypertension ([facility]) Unspecified essential hypertension Bilateral lower extremity edema Bilateral lower extremity edema- Primary Primary hypertension ([facility]) Unspecified essential hypertension COPD mixed type ([facility]) Class 3 severe obesity due to excess calories without serious comorbidity with body mass index (BMI) of 40.0 to 44.9 in adult Tobacco dependence Tobacco use disorder Bilateral lower extremity edema- Primary Tobacco dependence Tobacco use disorder BMI 40.0-44.9, adult ([facility]) COPD mixed type ([facility]) WINSOME (obstructive sleep apnea) Obstructive sleep apnea (adult) (pediatric) Encounter for subsequent annual wellness visit (AWV) in Medicare patient- Primary Edema of right lower extremity Anxiety and depression ([facility]) Tobacco dependence Tobacco use disorder BMI 40.0-44.9, adult ([facility]) Fibromyalgia Unspecified myalgia and myositis Primary hypertension ([facility]) Unspecified essential hypertension COPD mixed type ([facility]) WINSOME (obstructive sleep apnea)- Primary Obstructive sleep apnea (adult) (pediatric) COPD mixed type (CMS/HCC) Primary hypertension (CMS/HCC) Unspecified essential hypertension Fibromyalgia Unspecified myalgia and myositis BMI 40.0-44.9, adult ([facility]) Tobacco dependence Tobacco use disorder Mixed hyperlipidemia (CMS/HCC) Mixed hyperlipidemia Vitamin D deficiency Vitamin B12 deficiency Other B-complex deficiencies COPD with acute exacerbation (CMS/HCC) COPD with acute exacerbation ([facility])- Primary Morbid (severe) obesity due to excess calories ([facility]) Body mass index (BMI) 40.0-44.9, adult ([facility]) WINSOME (obstructive sleep apnea) Obstructive sleep apnea (adult) (pediatric) COPD mixed type ([facility]) Gastroesophageal reflux disease, unspecified whether esophagitis present Tobacco dependence Tobacco use disorder Gastro-esophageal reflux disease without esophagitis Tremor Abnormal involuntary movements Tobacco dependence- Primary Tobacco use disorder documented in this encounter [facility] HealthcareEvaluation note* Diagnosis Primary hypertension ([facility])- Primary Unspecified essential hypertension Mixed hyperlipidemia ([facility]) Mixed hyperlipidemia Fibromyalgia Unspecified myalgia and myositis Migraine without aura and without status migrainosus, not intractable ([facility]) Class 3 severe obesity due to excess calories without serious comorbidity with body mass index (BMI) of 40.0 to 44.9 in adult Tobacco dependence Tobacco use disorder Bilateral lower extremity edema Acute non-recurrent sinusitis of other sinus COPD mixed type ([facility]) Open wound of second toe of left foot, initial encounter Open wound of left foot, initial encounter COPD mixed type ([facility]/HCC)- Primary Tobacco dependence Tobacco use disorder BMI 40.0-44.9, adult ([facility]) Body mass index [BMI] 40.0-44.9, adult (Z68.41) Primary hypertension ([facility]) Unspecified essential hypertension Bilateral lower extremity edema Edema of right lower extremity- Primary BMI 40.0-44.9, adult ([facility]) Shortness of breath COPD mixed type ([facility]) Primary hypertension ([facility]) Unspecified essential hypertension Bilateral lower extremity edema Bilateral lower extremity edema- Primary Primary hypertension ([facility]) Unspecified essential hypertension COPD mixed type (CMS/HCC) Class 3 severe obesity due to excess calories without serious comorbidity with body mass index (BMI) of 40.0 to 44.9 in adult Tobacco dependence Tobacco use disorder Bilateral lower extremity edema- Primary Tobacco dependence Tobacco use disorder BMI 40.0-44.9, adult ([facility]) COPD mixed type ([facility]) WINSOME (obstructive sleep apnea) Obstructive sleep apnea (adult) (pediatric) Encounter for subsequent annual wellness visit (AWV) in Medicare patient- Primary Edema of right lower extremity Anxiety and depression ([facility]) Tobacco dependence Tobacco use disorder BMI 40.0-44.9, adult ([facility]) Fibromyalgia Unspecified myalgia and myositis Primary hypertension ([facility]) Unspecified essential hypertension COPD mixed type ([facility]) WINSOME (obstructive sleep apnea)- Primary Obstructive sleep apnea (adult) (pediatric) COPD mixed type ([facility]) Primary hypertension ([facility]) Unspecified essential hypertension Fibromyalgia Unspecified myalgia and myositis BMI 40.0-44.9, [place] [place] Tobacco dependence Tobacco use disorder Mixed hyperlipidemia ([facility]) Mixed hyperlipidemia Vitamin D deficiency Vitamin B12 deficiency Other B-complex deficiencies COPD with acute exacerbation ([facility]) COPD with acute exacerbation ([facility])- Primary Morbid (severe) obesity due to excess calories ([facility]) Body mass index (BMI) 40.0-44.9, adult ([facility]) WINSOME (obstructive sleep apnea) Obstructive sleep apnea (adult) (pediatric) COPD mixed type ([facility]) Gastroesophageal reflux disease, unspecified whether esophagitis present Tobacco dependence Tobacco use disorder Gastro-esophageal reflux disease without esophagitis Tremor Abnormal involuntary movements Fibromyalgia Unspecified myalgia and myositis documented in this encounter [facility] HealthcareEvaluation note* Diagnosis Primary hypertension- Primary Unspecified essential hypertension Mixed hyperlipidemia Mixed hyperlipidemia Fibromyalgia Unspecified myalgia and myositis Migraine without aura and without status migrainosus, not intractable Class 3 severe obesity due to excess calories without serious comorbidity with body mass index (BMI) of 40.0 to 44.9 in adult ([facility]) Tobacco dependence Tobacco use disorder Bilateral lower extremity edema Acute non-recurrent sinusitis of other sinus COPD mixed type ([facility]) Open wound of second toe of left foot, initial encounter Open wound of left foot, initial encounter COPD mixed type (HCC)- Primary Tobacco dependence Tobacco use disorder BMI 40.0-44.9, adult ([facility]) Body mass index [BMI] 40.0-44.9, adult (Z68.41) Primary hypertension Unspecified essential hypertension Bilateral lower extremity edema Edema of right lower extremity- Primary BMI 40.0-44.9, [place] [place] Shortness of breath COPD mixed type ([facility]) Primary hypertension Unspecified essential hypertension Bilateral lower extremity edema Bilateral lower extremity edema- Primary Primary hypertension Unspecified essential hypertension COPD mixed type (HCC) Class 3 severe obesity due to excess calories without serious comorbidity with body mass index (BMI) of 40.0 to 44.9 in adult [place] [place] Tobacco dependence Tobacco use disorder Bilateral lower extremity edema- Primary Tobacco dependence Tobacco use disorder BMI 40.0-44.9, adult [place] [place] COPD mixed type ([facility]) WINSOME (obstructive sleep apnea) Obstructive sleep apnea (adult) (pediatric) Encounter for subsequent annual wellness visit (AWV) in Medicare patient- Primary Edema of right lower extremity Anxiety and depression Tobacco dependence Tobacco use disorder BMI 40.0-44.9, adult [place] [place] Fibromyalgia Unspecified myalgia and myositis Primary hypertension Unspecified essential hypertension COPD mixed type ([facility]) WINSOME (obstructive sleep apnea)- Primary Obstructive sleep apnea (adult) (pediatric) COPD mixed type ([facility]) Primary hypertension Unspecified essential hypertension Fibromyalgia Unspecified myalgia and myositis BMI 40.0-44.9, adult [place] [place] Tobacco dependence Tobacco use disorder Mixed hyperlipidemia Mixed hyperlipidemia Vitamin D deficiency Vitamin B12 deficiency Other B-complex deficiencies COPD with acute exacerbation (HCC) COPD with acute exacerbation (HCC)- Primary Morbid (severe) obesity due to excess calories [place] [place] Body mass index (BMI) 40.0-44.9, adult [place] [place] WINSOME (obstructive sleep apnea) Obstructive sleep apnea (adult) (pediatric) COPD mixed type (HCC) Gastroesophageal reflux disease, unspecified whether esophagitis present Tobacco dependence Tobacco use disorder Gastro-esophageal reflux disease without esophagitis Tremor Abnormal involuntary movements Encounter for subsequent annual wellness visit (AWV) in Medicare patient- Primary Chronic kidney disease, stage 3a [place] [place] WINSOME (obstructive sleep apnea) [...] for lung cancer documented in this encounter [facility] HealthcareEvaluation note* Diagnosis Primary hypertension- Primary Unspecified essential hypertension Mixed hyperlipidemia Mixed hyperlipidemia Fibromyalgia Unspecified myalgia and myositis Migraine without aura and without status migrainosus, not intractable Class 3 severe obesity due to excess calories without serious comorbidity with body mass index (BMI) of 40.0 to 44.9 in adult [place] [place] Tobacco dependence Tobacco use disorder Bilateral lower extremity edema Acute non-recurrent sinusitis of other sinus COPD mixed type (HCC) Open wound of second toe of left foot, initial encounter Open wound of left foot, initial encounter COPD mixed type (HCC)- Primary Tobacco dependence Tobacco use disorder BMI 40.0-44.9, adult [place] [place] Body mass index [BMI] 40.0-44.9, adult (Z68.41) Primary hypertension Unspecified essential hypertension Bilateral lower extremity edema Edema of right lower extremity- Primary BMI 40.0-44.9, adult [place] [place] Shortness of breath COPD mixed type (HCC) Primary hypertension Unspecified essential hypertension Bilateral lower extremity edema Bilateral lower extremity edema- Primary Primary hypertension Unspecified essential hypertension COPD mixed type (HCC) Class 3 severe obesity due to excess calories without serious comorbidity with body mass index (BMI) of 40.0 to 44.9 in adult [place] [place] Tobacco dependence Tobacco use disorder Bilateral lower extremity edema- Primary Tobacco dependence Tobacco use disorder BMI 40.0-44.9, adult [place] [place] COPD mixed type (HCC) WINSOME (obstructive sleep apnea) Obstructive sleep apnea (adult) (pediatric) Encounter for subsequent annual wellness visit (AWV) in Medicare patient- Primary Edema of right lower extremity Anxiety and depression Tobacco dependence Tobacco use disorder BMI 40.0-44.9, adult [place] [place] Fibromyalgia Unspecified myalgia and myositis Primary hypertension Unspecified essential hypertension COPD mixed type (HCC) WINSOME (obstructive sleep apnea)- Primary Obstructive sleep apnea (adult) (pediatric) COPD mixed type (HCC) Primary hypertension Unspecified essential hypertension Fibromyalgia Unspecified myalgia and myositis BMI 40.0-44.9, adult [place] [place] Tobacco dependence Tobacco use disorder Mixed hyperlipidemia Mixed hyperlipidemia Vitamin D deficiency Vitamin B12 deficiency Other B-complex deficiencies COPD with acute exacerbation (HCC) COPD with acute exacerbation (HCC)- Primary Morbid (severe) obesity due to excess calories [place] [place] Body mass index (BMI) 40.0-44.9, adult [place] [place] WINSOME (obstructive sleep apnea) Obstructive sleep apnea (adult) (pediatric) COPD mixed type (HCC) Gastroesophageal reflux disease, unspecified whether esophagitis present Tobacco dependence Tobacco use disorder Gastro-esophageal reflux disease without esophagitis Tremor Abnormal involuntary movements Encounter for subsequent annual wellness visit (AWV) in Medicare patient- Primary Chronic kidney disease, stage 3a [place] [place] WINSOME (obstructive sleep apnea) [...] Tobacco use disorder documented in this encounter [facility] HealthcareEvaluation note* Diagnosis Primary hypertension- Primary Unspecified essential hypertension Mixed hyperlipidemia Mixed hyperlipidemia Fibromyalgia Unspecified myalgia and myositis Migraine without aura and without status migrainosus, not intractable Class 3 severe obesity due to excess calories without serious comorbidity with body mass index (BMI) of 40.0 to 44.9 in adult [place] [place] Tobacco dependence Tobacco use disorder Bilateral lower extremity edema Acute non-recurrent sinusitis of other sinus COPD mixed type (HCC) Open wound of second toe of left foot, initial encounter Open wound of left foot, initial encounter COPD mixed type (HCC)- Primary Tobacco dependence Tobacco use disorder BMI 40.0-44.9, adult [place] [place] Body mass index [BMI] 40.0-44.9, adult (Z68.41) Primary hypertension Unspecified essential hypertension Bilateral lower extremity edema Edema of right lower extremity- Primary BMI 40.0-44.9, adult [place] [place] Shortness of breath COPD mixed type ([facility]) Primary hypertension Unspecified essential hypertension Bilateral lower extremity edema Bilateral lower extremity edema- Primary Primary hypertension Unspecified essential hypertension COPD mixed type (HCC) Class 3 severe obesity due to excess calories without serious comorbidity with body mass index (BMI) of 40.0 to 44.9 in adult [place] [place] Tobacco dependence Tobacco use disorder Bilateral lower extremity edema- Primary Tobacco dependence Tobacco use disorder BMI 40.0-44.9, adult [place] [place] COPD mixed type (HCC) WINSOME (obstructive sleep apnea) Obstructive sleep apnea (adult) (pediatric) Encounter for subsequent annual wellness visit (AWV) in Medicare patient- Primary Edema of right lower extremity Anxiety and depression Tobacco dependence Tobacco use disorder BMI 40.0-44.9, adult [place] [place] Fibromyalgia Unspecified myalgia and myositis Primary hypertension Unspecified essential hypertension COPD mixed type ([facility]) WINSOME (obstructive sleep apnea)- Primary Obstructive sleep apnea (adult) (pediatric) COPD mixed type (HCC) Primary hypertension Unspecified essential hypertension Fibromyalgia Unspecified myalgia and myositis BMI 40.0-44.9, adult [place] [place] Tobacco dependence Tobacco use disorder Mixed hyperlipidemia Mixed hyperlipidemia Vitamin D deficiency Vitamin B12 deficiency Other B-complex deficiencies COPD with acute exacerbation ([facility]) COPD with acute exacerbation ([facility])- Primary Morbid (severe) obesity due to excess calories [place] [place] Body mass index (BMI) 40.0-44.9, adult [place] [place] WINSOME (obstructive sleep apnea) Obstructive sleep apnea (adult) (pediatric) COPD mixed type ([facility]) Gastroesophageal reflux disease, unspecified whether esophagitis present Tobacco dependence Tobacco use disorder Gastro-esophageal reflux disease without esophagitis Tremor Abnormal involuntary movements Encounter for subsequent annual wellness visit (AWV) in Medicare patient- Primary Chronic kidney disease, stage 3a [place] [place] WINSOME (obstructive sleep apnea) Obstructive sleep apnea (adult) (pediatric) COPD mixed type ([facility]) Gastroesophageal reflux disease, unspecified whether [...] unspecified laterality- Primary documented in this encounter [facility] HealthcareEvaluation note* Diagnosis Primary hypertension- Primary Unspecified essential hypertension Mixed hyperlipidemia Mixed hyperlipidemia Fibromyalgia Unspecified myalgia and myositis Migraine without aura and without status migrainosus, not intractable Class 3 severe obesity due to excess calories without serious comorbidity with body mass index (BMI) of 40.0 to 44.9 in adult [place] [place] Tobacco dependence Tobacco use disorder Bilateral lower extremity edema Acute non-recurrent sinusitis of other sinus COPD mixed type ([facility]) Open wound of second toe of left foot, initial encounter Open wound of left foot, initial encounter COPD mixed type (HCC)- Primary Tobacco dependence Tobacco use disorder BMI 40.0-44.9, adult [place] [place] Body mass index [BMI] 40.0-44.9, adult (Z68.41) Primary hypertension Unspecified essential hypertension Bilateral lower extremity edema Edema of right lower extremity- Primary BMI 40.0-44.9, adult [place] [place] Shortness of breath COPD mixed type ([facility]) Primary hypertension Unspecified essential hypertension Bilateral lower extremity edema Bilateral lower extremity edema- Primary Primary hypertension Unspecified essential hypertension COPD mixed type (HCC) Class 3 severe obesity due to excess calories without serious comorbidity with body mass index (BMI) of 40.0 to 44.9 in adult [place] [place] Tobacco dependence Tobacco use disorder Bilateral lower extremity edema- Primary Tobacco dependence Tobacco use disorder BMI 40.0-44.9, adult [place] [place] COPD mixed type ([facility]) WINSOME (obstructive sleep apnea) Obstructive sleep apnea (adult) (pediatric) Encounter for subsequent annual wellness visit (AWV) in Medicare patient- Primary Edema of right lower extremity Anxiety and depression Tobacco dependence Tobacco use disorder BMI 40.0-44.9, adult [place] [place] Fibromyalgia Unspecified myalgia and myositis Primary hypertension Unspecified essential hypertension COPD mixed type ([facility]) WINSOME (obstructive sleep apnea)- Primary Obstructive sleep apnea (adult) (pediatric) COPD mixed type (HCC) Primary hypertension Unspecified essential hypertension Fibromyalgia Unspecified myalgia and myositis BMI 40.0-44.9, adult [place] [place] Tobacco dependence Tobacco use disorder Mixed hyperlipidemia Mixed hyperlipidemia Vitamin D deficiency Vitamin B12 deficiency Other B-complex deficiencies COPD with acute exacerbation (HCC) COPD with acute exacerbation (HCC)- Primary Morbid (severe) obesity due to excess calories ([facility] [place] Body mass index (BMI) 40.0-44.9, adult [place] [place] WINSOME (obstructive sleep apnea) Obstructive sleep apnea (adult) (pediatric) COPD mixed type (HCC) Gastroesophageal reflux disease, unspecified whether esophagitis present Tobacco dependence Tobacco use disorder Gastro-esophageal reflux disease without esophagitis Tremor Abnormal involuntary movements Encounter for subsequent annual wellness visit (AWV) in Medicare patient- Primary Chronic kidney disease, stage 3a [place] [place] WINSOME (obstructive sleep apnea) [...] Tobacco use disorder documented in this encounter [facility] HealthcareEvaluation note* Diagnosis Primary hypertension- Primary Unspecified essential hypertension Mixed hyperlipidemia Mixed hyperlipidemia Fibromyalgia Unspecified myalgia and myositis Migraine without aura and without status migrainosus, not intractable Class 3 severe obesity due to excess calories without serious comorbidity with body mass index (BMI) of 40.0 to 44.9 in adult [place] [place] Tobacco dependence Tobacco use disorder Bilateral lower extremity edema Acute non-recurrent sinusitis of other sinus COPD mixed type (HCC) Open wound of second toe of left foot, initial encounter Open wound of left foot, initial encounter COPD mixed type (HCC)- Primary Tobacco dependence Tobacco use disorder BMI 40.0-44.9, adult [place] [place] Body mass index [BMI] 40.0-44.9, adult (Z68.41) Primary hypertension Unspecified essential hypertension Bilateral lower extremity edema Edema of right lower extremity- Primary BMI 40.0-44.9, adult [place] [place] Shortness of breath COPD mixed type (HCC) Primary hypertension Unspecified essential hypertension Bilateral lower extremity edema Bilateral lower extremity edema- Primary Primary hypertension Unspecified essential hypertension COPD mixed type (HCC) Class 3 severe obesity due to excess calories without serious comorbidity with body mass index (BMI) of 40.0 to 44.9 in adult [place] [place] Tobacco dependence Tobacco use disorder Bilateral lower extremity edema- Primary Tobacco dependence Tobacco use disorder BMI 40.0-44.9, adult [place] [place] [facility] [place] COPD mixed type (HCC) WINSOME (obstructive sleep apnea) Obstructive sleep apnea (adult) (pediatric) Encounter for subsequent annual wellness visit (AWV) in Medicare patient- Primary Edema of right lower extremity Anxiety and depression Tobacco dependence Tobacco use disorder BMI 40.0-44.9, adult [place] [place] Fibromyalgia Unspecified myalgia and myositis Primary hypertension Unspecified essential hypertension COPD mixed type (HCC) WINSOME (obstructive sleep apnea)- Primary Obstructive sleep apnea (adult) (pediatric) COPD mixed type (HCC) Primary hypertension Unspecified essential hypertension Fibromyalgia Unspecified myalgia and myositis BMI 40.0-44.9, [place] [place] Tobacco dependence Tobacco use disorder Mixed hyperlipidemia Mixed hyperlipidemia Vitamin D deficiency Vitamin B12 deficiency Other B-complex deficiencies COPD with acute exacerbation (HCC) COPD with acute exacerbation (HCC)- Primary Morbid (severe) obesity due to excess calories [place] [place] Body mass index (BMI) 40.0-44.9, adult [place] [place] WINSOME (obstructive sleep apnea) Obstructive sleep apnea (adult) (pediatric) COPD mixed type (HCC) Gastroesophageal reflux disease, unspecified whether esophagitis present Tobacco dependence Tobacco use disorder Gastro-esophageal reflux disease without esophagitis Tremor Abnormal involuntary movements Encounter for subsequent annual wellness visit (AWV) in Medicare patient- Primary Chronic kidney disease, stage 3a [place] [place] WINSOME (obstructive sleep apnea) [...] (BMI) of 40.0 to 44.9 in adult [place] [place] Tobacco dependence Tobacco use disorder Bilateral lower extremity edema Acute non-recurrent sinusitis of other sinus COPD mixed type ([facility] Open wound of second toe of left foot, initial encounter Open wound of left foot, initial encounter COPD mixed type (HCC)- Primary Tobacco dependence Tobacco use disorder BMI 40.0-44.9, adult [place] [place] Body mass index [BMI] 40.0-44.9, adult (Z68.41) Primary hypertension Unspecified essential hypertension Bilateral lower extremity edema Edema of right lower extremity- Primary BMI 40.0-44.9, adult [place] [place] Shortness of breath COPD mixed type ([facility]) Primary hypertension Unspecified essential hypertension Bilateral lower extremity edema Bilateral lower extremity edema- Primary Primary hypertension Unspecified essential hypertension COPD mixed type (HCC) Class 3 severe obesity due to excess calories without serious comorbidity with body mass index (BMI) of 40.0 to 44.9 in adult [place] [place] Tobacco dependence Tobacco use disorder Bilateral lower extremity edema- Primary Tobacco dependence Tobacco use disorder BMI 40.0-44.9, adult [place] [place] COPD mixed type (HCC) WINSOME (obstructive sleep apnea) Obstructive sleep apnea (adult) (pediatric) Encounter for subsequent annual wellness visit (AWV) in Medicare patient- Primary Edema of right lower extremity Anxiety and depression Tobacco dependence Tobacco use disorder BMI 40.0-44.9, adult [place] [place] Fibromyalgia Unspecified myalgia and myositis Primary hypertension Unspecified essential hypertension COPD mixed type (HCC) WINSOME (obstructive sleep apnea)- Primary Obstructive sleep apnea (adult) (pediatric) COPD mixed type (HCC) Primary hypertension Unspecified essential hypertension Fibromyalgia Unspecified myalgia and myositis BMI 40.0-44.9, adult [place] [place] Tobacco dependence Tobacco use disorder Mixed hyperlipidemia Mixed hyperlipidemia Vitamin D deficiency Vitamin B12 deficiency Other B-complex deficiencies COPD with acute exacerbation (HCC) COPD with acute exacerbation (HCC)- Primary Morbid (severe) obesity due to excess calories [place] [place] Body mass index (BMI) 40.0-44.9, adult [place] [place] WINSOME (obstructive sleep apnea) Obstructive sleep apnea (adult) (pediatric) COPD mixed type (HCC) Gastroesophageal reflux disease, unspecified whether esophagitis present Tobacco dependence Tobacco use disorder Gastro-esophageal reflux disease without esophagitis Tremor Abnormal involuntary movements Encounter for subsequent annual wellness visit (AWV) in Medicare patient- Primary Chronic kidney disease, stage 3a [place] [place] WINSOME (obstructive sleep apnea) [...] Status Admit Date Bilateral lower extremity edema acuteSept2024 11:11amCOPD mixed typeacuteSeptember 2024 11:11amEssential hypertensionacuteSeptember 2024 11:11amFibromyalgiaacute October 31, 2024 11:11amMorbid obesity due to excess caloriesacuteSeptember 2024 11:11am [facility] Work Phone: Hospital Discharge instructions No data available for this section General Surgery [place] Progress note No data available for this section General [facility] [place] Reason for referral (narrative)No reason for referral information availableC[facility] Work Phone: Rejmrd for visit Narrative* Consultation (Routine) - ClosedSpecialtyDiagnoses / ProceduresReferred By ContactReferred To Contact Neurology Diagnoses Tremor Procedures [place] OFFICE/OUTPATIENT NEW HIGH MDM 60 MINUTES Jaymie Phoenix NP [address] [place] [address] Phone: tel: fax: Saumya Back, [address] [place] [address] Phone: tel: fax: Referral IDStatusReasonStart DateExpiration DateVisits RequestedVisits [id number] Specialty Services Required / [facility] Healthcare Summary Purpose Family History No Family [...] right Jaymie Phoenix NP [address] [place] [address] Referral IDStatusReasonStart DateExpiration DateVisits RequestedVisits [id number]/15/20248/ Chief Complaint and Reason for Visit Chief [...] section and content) DATE CREATED AUTHOR 12/26/2021 [facility] Buyer Agent DATE CREATED AUTHOR AUTHOR'S ORGANIZ ATION 03/25/2022 [facility] DATE CREATED AUTHOR AUTHOR'S ORGANIZ ATION 07/17/2022 [facility] DATE CREATED AUTHOR AUTHOR'S ORGANIZ ATION 08/31/2024 [facility] DATE CREATED AUTHOR AUTHOR'S ORGANIZ ATION 09/02/2024 [facility] DATE CREATED AUTHOR AUTHOR'S ORGANIZ ATION 11/25/2024 [facility] Patient Care team informatio n (unrecognized section and content) Team MemberRelationshipSpecialtyStart DateEnd Date Jaymie Phoenix NP [address] [place] [address] Nurse PractitionerFamily Bqphqqif60/19/23Team MemberRelationshipSpecialtyStart DateEnd Date Shaikh Marquez MD [address] [place] [address] PCP - GeneralInternal Medicine03/25/23 Jaymie Phoenix NP [address] [place] [address] Nurse PractitionerFamily Gberdxxl99/19/23Team MemberRelationshipSpecialtyStart DateEnd Date Shaikh Marquez MD [address] [place] [address] [facility] - [facility]03/25/23 Jaymie Phoenix NP [address] [place] [address] [facility]01/26/23Team MemberRelationshipSpecialtyStart DateEnd Date Rohan Rodríguez MD [address] [place] [address] PCP - [facility]05/13/23 Jaymie Phoenix NP [address] [place] [address] [facility] Skpaieqn92/19/23 Jaymie Phoenix NP [address] [place] [address] [facility] Medicine05/13/23Team MemberRelationshipSpecialtyStart DateEnd Date Rohan Rodríguez MD [address] [place] [address] PCP - [facility] Medicine05/13/23 Jaymie Phoenix NP [address] [place] [address] Nurse Pract[facility] Biiartgt62/19/23 Jaymie Phoenix NP [address] [place] [address] Nurse Pract[facility]erP[facility]05/13/23Team MemberRelationshipSpecialtyStart DateEnd Date Rohan Rodríguez MD [address] [place] [address] PCP - [facility]05/13/23 Jaymie Phoenix NP [address] [place] [address] Nurse [facility]01/26/23 Jaymie Phoenix NP [address] [place] [address] [facility]05/13/23Team MemberRelationshipSpecialtyStart DateEnd Date Rohan Rodríguez MD [address] [place] [address] PCP - [facility]05/13/23 Jaymie Phoenix NP [address] [place] [address] Nurse [facility]01/26/23 Jaymie Phoenix NP [address] [place] [address] [facility]05/13/23Team MemberRelationshipSpecialtyStart DateEnd Date Rohan Rodríguez MD [address] [place] [address] PCP - [facility] Medicine05/13/23 Jaymie Phoenix NP [address] [place] [address] Nurse [facility]01/26/23 Jaymie Phoenix NP [address] [place] [address] [facility]05/13/23Team MemberRelationshipSpecialtyStart DateEnd Date Rohan Rodríguez MD [address] [place] [address] PCP - [facility]05/13/23 Jaymie Phoenix NP [address] [place] [address] [facility]01/26/23 Jaymie Phoenix NP [address] [place] [address] [facility]05/13/23Team MemberRelationshipSpecialtyStart DateEnd Date Rohan Rodríguez MD [address] [place] [address] PCP - [facility]05/13/23 Jaymie Phoenix NP [address] [place] [address] Nurse Practitionermily Fpiukivt77/19/23 Jaymie Phoenix NP [address] [place] [address] Nurse [facility]05/13/23Team MemberRelationshipSpecialtyStart DateEnd Date Rohan Rodríguez MD [address] [place] [address] PCP - Generalmily Medicine05/13/23 Jaymie Phoenix NP [address] [place] [address] Nurse [facility]01/26/23 Jyamie Phoenix NP [address] [place] [address] Nurse Pract[facility]05/13/23Team MemberRelationshipSpecialtyStart DateEnd Date Rohan Rodríguez MD [address] [place] [address] PCP - [facility] Medicine05/13/23 Jaymie Phoenix NP [address] [place] [address] Nurse [facility]01/26/23 Jaymie Phoenix NP [address] [place] [address] Nurse [facility]05/13/23Team MemberRelationshipSpecialtyStart DateEnd Date Rohan Rodríguez MD [address] [place] [address] PCP - Generalmily Medicine05/13/23 Jaymie Phoenix NP [address] [place] [address] Nurse [facility] Yxtspzqf73/19/23 Jaymie Phoenix NP [address] [place] [address] Nurse [facility]05/13/23Team MemberRelationshipSpecialtyStart DateEnd Date Rohan Rodríguez MD [address] [place] [address] PCP - Generalmi Medicine05/13/23 Jaymie Phoenix NP [address] [place] [address] [facility] Jkkbnnmq09/19/23 Jaymie Phoenix NP [address] [place] [address] Nurse [facility] Medicine05/13/23Team MemberRelationshipSpecialtyStart DateEnd Date Rohan Rodríguez MD [address] [place] [address] PCP - GeneralFamily Medicine05/13/23 Jaymie Phoenix NP [address] [place] [address] Nurse [facility] Qtubvlmu53/19/23 Jaymie Phoenix NP [address] [place] [address] Nurse Pract[facility]05/13/23Team MemberRelationshipSpecialtyStart DateEnd Date Rohan Rodríguez MD [address] [place] [address] PCP - [facility]05/13/23 Jaymie Phoenix NP [address] [place] [address] Nurse [facility]01/26/23 Jaymie Phoenix NP [address] [place] [address] Nurse Pract[facility]05/13/23Team MemberRelationshipSpecialtyStart DateEnd Date Rohan Rodríguez MD [address] [place] [address] PCP - [facility]05/13/23 Jaymie Phoenix NP [address] [place] [address] Nurse Pract[facility]01/26/23 Jaymie Phoenix NP [address] [place] [address] Nurse Pract[facility] Medicine05/13/23Team MemberRelationshipSpecialtyStart DateEnd Rohan Rodríguez MD [address] [place] [address] PCP - Generalmi Medicine05/13/23 Jaymie Phoenix, NILE [address] [place] [address] Nurse Pract[facility]erW[facility] Oqvdmvce19/19/23 Jaymie Phoenix NP [address] [place] [address] Nurse Pract[facility]05/13/23Te MemberRelationshipSpecialtyStart DateEnd Date Rohan Rodríguez MD [address] [place] [address] PCP - [facility] Medicine05/13/23 Jaymie Phoenix NP [address] [place] [address] Nurse Pract[facility] Lddhptsm31/19/23 Jaymie Phoenix NP [address] [place] [address] Nurse Pract[facility]05/13/23Team MemberRelationshipSpecialtyStart DateEnd Date Rohan Rodríguez MD [address] [place] [address] PCP - [facility] Medicine05/13/23 Jaymie Phoenix NP [address] [place] [address] Nurse Pract[facility]01/26/23 Jaymie Phoenix NP [address] [place] [address] Nurse [facility]05/13/23Team MemberRelationshipSpecialtyStart DateEnd Date Rohan Rodríguez MD [address] [place] [address] PCP - [facility]05/13/23 Jaymie Phoenix NP [address] [place] [address] Nurse [facility]01/26/23 Jaymie Phoenix NP [address] [place] [address] Nurse Pract[facility]05/13/23Team MemberRelationshipSpecialtyStart DateEnd Date Rohan Rodríguez MD [address] [place] [address] PCP - [facility]05/13/23 Jaymie Phoenix NP [address] [place] [address] Nurse [facility]01/26/23 Jaymie Phoenix NP [address] [place] [address] Nurse [facility]05/13/23Team MemberRelationshipSpecialtyStart DateEnd Date Rohan Rodríguez MD [address] [place] [address] PCP - [facility]05/13/23 Jaymie Phoenix NP [address] [place] [address] Nurse [facility]01/26/23 Jaymie Phoenix NP [address] [place] [address] Nurse [facility]05/13/23Team MemberRelationshipSpecialtyStart DateEnd Date Rohan Rodríguez MD [address] [place] [address] PCP - [facility]05/13/23 Jaymie Phoenix NP [address] [place] [address] Nurse [facility]01/26/23 Jaymie Phoenix NP [address] [place] [address] Nurse [facility]05/13/23Team MemberRelationshipSpecialtyStart DateEnd Date Rohan Rodríguez MD [address] [place] [address] PCP - [facility] Medicine05/13/23 Jaymie Phoenix NP [address] [place] [address] Nurse [facility]01/26/23 Jaymie Phoenix NP [address] [place] [address] Nurse [facility]05/13/23Team MemberRelationshipSpecialtyStart DateEnd Date Rohan Rodríguez MD [address] [place] [address] PCP - [facility]05/13/23 Jaymie Phoenix NP [address] [place] [address] Nurse [facility]01/26/23 Jaymie Phoenix NP [address] [place] [address] [facility]05/13/23Team MemberRelationshipSpecialtyStart DateEnd Date Rohan Rodríguez MD [address] [place] [address] PCP - [facility]05/13/23 Jaymie Phoenix NP [address] [place] [address] [facility] Cnkipgfg98/19/23 Jaymie Phoenix NP [address] [place] [address] Nurse [facility]05/13/23Team MemberRelationshipSpecialtyStart DateEnd Date Rohan Rodríguez MD [address] [place] [address] PCP - [facility]05/13/23 Jaymie Phoenix NP [address] [place] [address] Nurse [facility]01/26/23 Jaymie Phoenix NP [address] [place] [address] Nurse [facility]05/13/23 Team Status: Active Member Role Status Dates Jaymie Phoenix , [employer] Primary Care Provider Active Team Status: Active Member Role Status Dates Jaymie Phoenix , [employer]C Primary Care Provider Active Start: August 29, 2024 Francisco Judge ProviderActiveStart: August 29, 2024 Team Status: Active Member Role Status Dates Jaymie Phoenix , [employer]PER[employer]-C Primary Care Provider Active Start: October 10, 2024 Jaymie Phoenix [employer] CLE[employer] SUPERVISOR-CAttending ProviderActiveStart: October 10, 2024 Team Status: Inactive Member Role Status Dates Jaymie Phoenix , [employer]PER[employer]-C Primary Care Provider Active Start: October 31, 2024 End: October 31, 2024Jaymie Phoenix [employer] SUPERVISOR-CAttending ProviderActiveStart: October 31, 2024 End: October 31, 2024Team MemberRelationshipSpecialtyStart DateEnd Date Shaikh Marquez MD PCP - GeneralInternal Medicine Rohan Rodríguez MD PCP - GeneralFamily Medicine Rohan Rodríguez MD PCP - GeneralFamily Medicine05/13/23 Jaymie Phoenix NP [facility] Szqasrfy98/19/23 Jaymie Phoenix NP [facility]05/13/23Team MemberRelationshipSpecialtyStart DateEnd Date Rohan Rodríguez MD PCP - [facility] Medicine05/13/23 Jaymie Phoenix NP [facility] Flklydvt55/19/23 Jaymie Phoenix NP [facility] Medicine05/13/23Team MemberRelationshipSpecialtyStart DateEnd Date Shaikh Marquez MD PCP - GeneralInternal Medicine Rohan Rodríguez MD PCP - GeneralFamily Medicine Rohan Rodríguez MD PCP - GeneralFamily Medicine05/13/23 Jaymie Phoenix NP [facility] Vvrudeen17/19/23 Jaymie Phoenix NP [facility]05/13/23Team MemberRelationshipSpecialtyStart DateEnd Date Rohan Rodríguez MD PCP - GeneralFamily Medicine Rohan Rodríguez MD PCP - GeneralFamily Medicine05/13/23 Jaymie Phoenix NP [facility] Gqtnclxc45/19/23 Jaymie Phoenix NP [facility]05/13/23Team MemberRelationshipSpecialtyStart DateEnd Date Shaikh Marquez MD PCP - GeneralInternal Medicine Rohan Rodríguez MD PCP - GeneralFamily Medicine Rohan Rodríguez MD PCP - [facility]05/13/23 Jaymie Phoenix NP [facility]01/26/23 Jaymie Phoenix NP Nurse [facility]05/13/23Team MemberRelationshipSpecialtyStart DateEnd Date Rohan Rodríguez MD PCP - [facility]05/13/23 Jaymie Phoenix NP [facility]01/26/23 Jaymie Phoenix NP Nurse [facility]05/13/23 Reason for Visit (unrecogniz ed section and content) ReasonCommentsMed RefillReasonCommentsMed RefillReasonOnset DateCommentsMed Dsfojz2306/14/2024ReasonCommentsMedicare Annual Wellness Visit InitialReason CommentsMed Change Request [...] BE BASED ON THE PRIMARY CLINICAL RECORDS. [employer] [facility]. provides no warranty or guarantee of the accuracy or completeness of information in this document.
--- OUTSIDE RECORDS SUMMARY | 2024-12-11 06:49 | XMS_ITS | Encounter Summary ---
Author Organization [facility] Address [address] [place] [address] Care Team Providers Care Tape Stringer Name Role Phone Jaymie Phoenix VACUUM APPLICATOR OPERATOR Unavailable [phone] Rohan Rodríguez MD Primary Care Provider [phone] Jaymie Phoenix VACUUM APPLICATOR OPERATOR Unavailable [phone] Encounter Details DateTypeDepartmentCare Team (Latest Contact Info)Gwajrslqxfe24/22/2024Clinisync Result Encounter [facility] Unsolicited Jaymie Phoenix NP [address] [place] [address] Social History Tobacco UseTypesPacks/DayYears UsedDateSmoking Tobacco: Every OpfUmfcgwcwwg124 Smokeless Tobacco: Never Comments:11-20 cigarettes/da y Alcohol [...] relatives?Twice a week05/13/2023How often do you attend voodoo or advent services?Never05/13/2023o you belong to any clubs or organizations such as voodoo groups, unions, fraternal or athletic groups, or school groups?No 05/13/2023How often do you attend meetings of the clubs or organizations you belong to?Never05/13/2023re you , , , , never , or living with a partner?Rukwzxa6005/13/2023UDIT-CAnswerDate RecordedQ1: How often do you have a [...] care, and heating?Somewhat hard05/13/2023HQ-2AnswerDate RecordedPatient Health Questionnaire-2 Czdoi896Finmount[facility] [place] of Occupational Health - Occupational Stress QuestionnaireAnswerDate RecordedDo you feel stress - tense, restless, nervous, or anxious, or unable to sleep at night because your mind is troubled all the time - these days?Only a vakhan1105/13/2023Exercise Vital SignAnswerDate RecordedOn average, how many days [...] InformationValueDate RecordedSex Assigned at BirthNot on fileLegal DyqVwpxnl66/15/2023 7:27 PM EDTGender Identity Not on fileSexual OrientationNot on filedocumented as of this encounter Functional Status * AUDIT-C ScoreAnswerDate of AfywmfzcpnPdrbjq235/25/2024 3:03 PM Clarisa Gupta MA * QuestionAnswerDate [...] AM EDT Clarisa Varma MAPatient Health Questionnaire-2 Kzyri293 10:22 AM Clarisa Gupta MA * QuestionAnswerDate [...] 10:22 AM Clarisa Gupta MAPatient Health Questionnaire-9 Ekbiu988 10:22 AM Clarisa Gupta MA * If [...] of this encounter Procedures Procedure NamePriorityDate/TimeAssociated DiagnosisCommentsCT LUNG SCREENING LOW DOSE05/31/2023 2:46 PM EDT ALL BASIC METABOLIC JUWHGJpcviod64/22/2024 2:31 PM EDT documented in this encounter Results * CT LUNG SCREENING LOW DOSE (05/31/2023 2:46 PM EDT)Anatomical RegionLaterality ModalityOtherSpecimen (Source)Anatomical Location / LateralityCollection Method / VolumeCollection TimeReceived Time05/31/2023 2:46 PM EDT Narrative 05/31/2023 2:48 PM EDT [facility] ?[address] ? [place] [address] ? CT Scan Report ? Signed ? Patient: FRANKY SRINIVASAN ?MR#: [id number] ?? : 1965 ?Acct:[id number] ?? Age/Sex: 57 / F ?ADM Date: 05/31/23 ?? Loc: CT ? Attending Dr: Jaymie Phoenix VACUUM APPLICATOR OPERATOR ? Ordering Physician: Jaymie Phoenix NP ?? Date of Service: 05/31/23 ?? Procedure(s): CT lung screening low-dose ?? Accession Number(s): [id number] ? cc: Jaymie Phoenix NP ? [facility] ? [address] ? [place] [address] ? Patient Name: ?? FRANKY SRINIVASAN ? MRN: [facility]:[id number] ? date: 1965 ?Sex: F ?? Assigned Patient Location: CT ?? Current Patient Location: CT ?? Accession/Order Number: [id number] ?? Exam Date: 05/31/2023 ??13:47 ?Report Date: 05/31/2023 ??14:46 ? At the request of: ?? JAYMIE PHOENIX ? Procedure: ??CT lung screening low-dose ? EXAM TYPE: CT lung screening low-dose ? INDICATION: Current tobacco use, smoking. ? COMPARISON: LD CT scan of the chest 05/29/2022 ? TECHNIQUE: Noncontrast, Low dose, helical axial images of the chest were ?? obtained, and thin section, axial MIP, and coronal and sagittal reformats were ? also submitted from the acquisition scanner under radiologist supervision. ?? Each ?? series was submitted in a lung algorithm. ? Dose reduction techniques were achieved by using automated exposure control ?? and/or adjustment of mA and/or kV according to patient size and/or use of ?? iterative reconstruction technique. ? FINDINGS: Please note that this examination was tailored for evaluation of ?? pulmonary nodules, and therefore soft tissue detail is suboptimal. ? *Images degraded by motion artifact. ? Heart size within normal limits. Mild coronary artery calcification. No ?? pericardial effusion. No aortic aneurysm. No mediastinal, hilar or axillary ?? lymphadenopathy. Layering debris within the distal trachea and proximal ?? bronchi ?? bilaterally (series 6, image 79) No central endobronchial nodule. Mild diffuse ? emphysematous change with chronic bronchial wall thickening. Scattered areas ?? of ?? subsegmental atelectasis bilaterally. No pleural effusion or pneumothorax. No ?? gross findings of suspicious pulmonary nodule. ? Small sliding hiatal hernia with 2 small nonenlarged paraesophageal lymph ?? nodes. Evaluation of the upper abdomen Limited secondary to low dose technique ? and lack of IV contrast. No acute fracture. ? IMPRESSION : ? Lung RADS category 1: Negative. ? RECOMMENDATIONS: ? Continued annual LD screening CT scan of the chest. ? Electronically authenticated by: FERNANDO ??JOEL ?? Date: 05/31/2023 ??14:46 ? Dictated By: ?Fernando Maldonado M.D. ? Signed By: ?05/31/23 1448 ? DD/ 1446 ? TD/TT: ? Dioramist: Procedure Note Radiology, Radiologist, - 05/31/[address] [place] [id number] Scan Report Signed Patient: FRANKY SRINIVASANMR#: [id number] : 1965Acct:[id number] Age/Sex: 57 / FADM Date: 05/31/23 Loc: CT Attending Dr: Jaymie Phoenix NP Ordering Physician: Jaymie Phoenix NP Date of Service: 05/31/23 Procedure(s): CT lung screening low-dose Accession Number(s): [id number] cc: Jaymie Phoenix NP The [address] [address] Patient Name: FRANKY SRINIVASAN MRN: [id number] date: 1965 Sex: F Assigned Patient Location: CT Current Patient Location: CT Accession/Order Number: [id number] Exam Date: 05/31/2023 13:47 Report Date: 05/31/2023 [...] of the chest. Electronically authenticated by: FERNANDO MALDONADO Date: 05/31/2023 14:46 Dictated By: Fernando Maldonado M.D. Signed By:05/31/23 1448 DD/ 1446 TD/TT: Dioramist: Authorizing ProviderResult TypeResult StatusLisa Phoenix NPCLINISYNC IMAGING Final Result * (ABNORMAL) ALL BASIC METABOLIC PANEL (05/31/2023 2:31 PM EDT)ComponentValueRef RangeTest MethodAnalysis TimePerformed AtPathologist JgqfigixtYDSTOF625746 - 145 mmol/LTBHPOTASSIUM4.43.5 - 5.1 mmol/FWFIQDYMBSFY7468 - 107 mmol/LTBHCARBON XTXQBXO59.9(H)21.0 - 32.0 mmol/LTBHANION GAP12.1AUPJNCJROJ03679 - 106 mg/dLTBH BLOOD UREA STVXHPUM07.07.0 - 18.0 mg/dLTBHCREATININE1.38(H)0.55 - 1.02 mg/dL TBHTBH EGFR-AF KTDVNMVU98(L)>=60TBHTBH EGFR-NON AF KCAZEVWT80(L)>=60TBHBUN CREATININE RATIO9.9GJNPSTHQOP68.18.5 - 10.1 mg/dLTBHSpecimen (Source) Anatomical Location / LateralityCollection Method / VolumeCollection Time Received Time05/31/2023 2:31 PM EDT05/31/2023 2:31 PM EDT Narrative [facility] - 05/31/2023 2:59 PM EDT Authorizing ProviderResult TypeResult StatusLisa Alban NPCLINISYNCFinal ResultPerforming OrganizationAddressCity/State/ZIP CodePhone Number [facility] documented in this encounter Visit Diagnoses Not on filedocumented in this encounter Care Teams Team MemberRelationshipSpecialtyStart DateEnd Date Rohan Rodríguez MD PCP - GeneralFamily Medicine05/13/23 Jaymie Phoenix NP Nurse PractitionerFamily Ikyuxwsh91/19/23 Jaymie Phoenix NP [facility]05/13/23documented as of this encounter
[2024-12-11 06:59] VITALS: BP 136/86; PULSE 74; TEMP 36.4; O2SAT 95
[2024-12-11 08:02] VITALS: BP 123/72; PULSE 77; O2SAT 90
[2024-12-11 08:03] VITALS: BP 130/65; PULSE 70; O2SAT 90
[2024-12-11] MEDS: IOHEXOL 240 MG/ML - 10 ML VIAL 12 MG INJ (08:03)
[2024-12-11] MEDS: LIDOCAINE HCL 2% 400 MG/20 ML MDV INJ (08:03)
[2024-12-11] MEDS: BUPIVACAINE HCL 0.25% PF 25 MG/10 ML VIAL 2 ML INJ (08:03)
[2024-12-11] MEDS: METHYLPREDNISOLONE ACETATE 40 MG/ML VIAL INJ (08:04)
--- NOTE | 2024-12-11 08:06 | W.PM.PROCNOT ---
Date of procedure: 12/11/24 Pre-op diagnosis: Pain due to left sacroiliitis Post-op diagnosis: same as pre-op Procedure: Procedure: Left sacroiliac joint injection Medications: Bupivacaine 0.25% 3cc, depomedrol 40mg After informed consent was obtained, the patient was brought to the medical procedure unit and placed in the prone position, when a timeout was completed verifying correct patient, procedure, site, positioning, implant, and/or special equipment.? The skin overlying the area was prepped and draped in standard sterile fashion using alcohol.? A 25-gauge needle was inserted towards the left sacroiliac joint under direct fluoroscopic imaging.? Needle tip was advanced until the joint was encountered.? We instilled a total of 2 mL of solution.? Postoperatively needles were removed.? The patient tolerated the procedure well without complication.? The patient reported reduction in pain symptoms postoperatively. Anesthesia: Local Surgeon: Mayela Merchant Pathology: none sent Condition: stable Disposition: no change
== END 2024-12-11 08:09 | disposition home or self-care (01) ==
PROVIDERS: PCP Nurse Practitioner; Visit Provider Anesthesiology
DX: M46.1 Sacroiliitis, not elsewhere classified (principal)
CPT/HCPCS: 27096; J0665; J1010; Q9966

== ENCOUNTER 2024-12-27 12:44 | Outpatient (OUT) | payer MEDICARE, SELFPAY ==
--- OUTSIDE RECORDS SUMMARY | 2024-02-16 03:30 | XMS_ITS ---
Author Organization The [facility] in [place] Address [address] [place] [address] Care Team Providers Care Grants Analyst Name Role Phone Jaymie Phoenix CNP Primary Care Provider Unavail able Jackson Moralez Unavailable [phone] Allergies Allergen (clinical drug ingredient) Drug/Non Drug [...] Encounter Location Date Provider Diagnosis Pulmonary Medicine [address] [address] 02/16/2024 Jackson Moralez Plan Of Treatment No Information Procedure Notes * CategorySub-CategoryDetailNotesPFTData:05/29/2022-FEV1/FVC: 83%-FEV1: 71%-FVC: 66%-Bronchodilator response: Paradoxical-RV: 98%-T%-DLCO: 41%-Flow-volume loop: Moderate restrictionAlpha-1 AntitrypsinScreening Date: 06/25/2022enotype:MM Progress Notes * Gertrudis SRINIVASAN IDOB:[birth year] (59 yo F)Acc No.[id number]:02/16/2024 UNLOCKED PROGRESS NOTE Progress Note Patient: Gertrudis BAH I :?Jackson Moralez, DODOB:1965???Age:58 Y ???Sex:FemaleDate:02/16/2024Phone:[phone]:[address] [place], [place] [id number]:Jaymie Phoenix CNP Subjective: * Chief Complaints: * 1 . COPD/Pneumonia [facility] F/U. * HPI: ???General:?Patient is being seen after a follow up after a recent hospitalization on 12/24/2023 at [facility] for Acute Exacerbation of COPD. 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, Abnormal diffusion [...] Orally Once a day , Taking Breztri Aerosphere(Ndjztgh-Hllnezawzme-Zvktgocarg) 160/9/4.8 mcg aerosol 2 puffs inhalation BID [...] Tablet as directed Orally , Discontinued Breztri Aerosphere(Mnxyytl-Fuanhbnuxzo-Hptexakdll) 160/9/4.8 mcg aerosol 2 puffs inhalation BID [...] Electronic signature of Jackson Moralez DO on 12/27/2024 at 12:47 PM ESTSign off status: PendingVisit Status:?N/S N/C (No Show/No Charge) * Provider: Osorio Moralez DO Date: 0 02/16/2024 Generated for Printing/Faxing/eTransmitting on:?12/27/2024 12:47 PM EST History and Physical Notes * HPI (History of Present Illness) CategorySub-CategoryDetailNotesCategory NotesGeneralPatient is being seen after a follow up after a recent hospitalization on 12/24/2023 at [facility] for Acute Exacerbation of COPD. Patient has not been seen since 07/16/2022 in our office. Patient did not show her her last appointment with our office on 06/15/2023.
--- OUTSIDE RECORDS SUMMARY | 2024-12-27 12:48 | XMS_ITS | Patient Health Record ---
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 steroids (Z79.51) ActiveconfirmedProblemChest pain (17084579)Chest pain (R07.9)Activeconfirmed ProblemChronic obstructive pulmonary disease (28843695)Chronic obstructive pulmonary disease (J44.9)ActiveconfirmedProblemAnxiety (09488552)Anxiety (F41.9) ActiveconfirmedProblemDyspnea (292734303)Dyspnea (R06.00)ActiveconfirmedProblem Obstructive sleep apnea (11988017)Obstructive sleep apnea (G47.33)Active confirmedPSG 08/08/2013: AHI 27ProblemMental disorder caused by drug (615762633) Cigarette nicotine dependence with nicotine-induced disorder (F17.219)Active confirmedProblemGastroesophageal reflux disease (607971860)Gastroesophageal reflux disease (K21.9)ActiveconfirmedProblemAcute exacerbation of chronic obstructive airways disease (452218144)Acute exacerbation of chronic obstructive airways disease (J44.1)ActiveconfirmedProblemCarbon monoxide exposure (52030453) Carbon monoxide exposure (Z77.29)ActiveconfirmedProblemAbnormal diffusion capacity determined by pulmonary function test (R94.2)ActiveconfirmedProblem Chronic ulcer of foot (668694572)Non-pressure chronic 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 (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)ActiveconfirmedProblemHistory of COVID- 19 (808276717070746438)History of COVID-19 (Z86.16)Activeconfirmed03/10/2022 Encounters Encounter Location Date Provider Diagnosis Pulmonary Medicine [address] [place] [address] 12/28/2023 [facility] [address] [place] [address]/08/2025 Jackson Moralez Plan Of Treatment No Information Insurance Providers Payer Name Payer Address Payer Phone Subscriber Number Group Number Insured Name Patient Relationship to Insured Coverage Start Date Coverage End Date [employer] [address] [place], [place] [id number] [phone] [id number] Lily Gagnon - patient is the insured [...] ine-induced disorder F17.219 History of COVID-19 Z86.16 online marketer (current) use of inhaled stero ids Z79.51 Abnormal diffusion capacity determined b y pulmonary function test R94.2 Carbon monoxide exposure Z77.29 Surgical History Surgery Date(Month/Year) tubal ligation hysterectomy, laparoscopically assistedcesarean sectionHospitalization History Reason Date(Month/Year) COPD Exacerbation-[facility] 12/24/2023
--- OUTSIDE RECORDS SUMMARY | 2024-12-27 12:49 | XMS_ITS | CCD ---
Author Organization [facility] Care Team Providers Care Saddle Cutter Name Role Phone JAYMIE PHOENIX Primary Care Physician Bryson FERERR Attending Unavailable JAYMIE PHOENIX J Referring Unavailabl e NILL, Bryson Hernandez Attending Unavailable Aichholz, Tracy L Referring Unavailable NILL, Bryson Hernandez Attending Unavailable NILL, Bryson Hernandez Attending Unavailable NILL, Bryson Hernandez Attending Unavailable AICHHOLZ, SPECIAL ASSETS OFFICER JAYMIE Primary Care Unavailable ALLAN ., DR JIM Mcdonnell Attending Unavailable ALLAN ., DR JIM Mcdonnell Admitting Unavailable ALLAN ., DR JIM Mcdonnell Consulting Unavailable ROBINSON ., GLENROY Admitting Unavailable ROBINSON ., GLENROY Attending Unavailable SJ SOLER Consulting Unavailable AICHHOLZ, SPECIAL ASSETS OFFICER JAYMIE Primary Care Unavailable MENDEZ ., MR DEMETRIUS Admitting Unavailable MENDEZ ., MR DEMETRIUS Attending Unavailable AICHHOLZ, SPECIAL ASSETS OFFICER JAYMIE Primary Care Unavailable AICHHOLZ, SPECIAL ASSETS OFFICER JAYMIE Admitting Unavailable JUANITA, DR NADINE Caldwell Consulting Unavailable AICHHOLZ, SPECIAL ASSETS OFFICER JAYMIE Primary Care Unavailable AICHHOLZ, SPECIAL ASSETS OFFICER JAYMIE Attending Unavailable AICHHOLZ, SPECIAL ASSETS OFFICER JAYMIE Consulting Unavailable AICHHOLZ, SPECIAL ASSETS OFFICER JAYMIE Admitting Unavailable JUANITA, DR NADINE Caldwell Consulting Unavailable AICHHOLZ, SPECIAL ASSETS OFFICER JAYMIE Primary Care Unavailable AICHHOLZ, SPECIAL ASSETS OFFICER JAYMIE Attending Unavailable AICHHOLZ, SPECIAL ASSETS OFFICER JAYMIE Consulting Unavailable AICHHOLZ, SPECIAL ASSETS OFFICER JAYMIE Primary Care Unavailable NILL ., DR MASSEY Admitting Unavailable NILL ., DR MASSEY Attending Unavailable NILL ., DR MASSEY Consulting Unavailable SONDRA FELICIANO Consulting Unavailable ROBINSON ., GLENROY Admitting Unavailable ROBINSON ., GLENROY Attending Unavailable ROBINSON ., GLENROY Consulting Unavailable AICHHOLZ, SPECIAL ASSETS OFFICER JAYMIE Primary Care Unavailable ALLAN ., DR JIM Mcdonnell Attending Unavailable ALLAN ., DR JIM Mcdonnell Consulting Unavailable ALLAN ., DR JIM Mcdonnell Admitting Unavailable AICHHOLZ, SPECIAL ASSETS OFFICER JAYMIE Primary Care Unavailable MARIA FERNANDA SOSA Consulting Unavailable ALLAN ., DR JIM Mcdonnell Attending Unavailable ALLAN ., DR JIM Mcdonnell Consulting Unavailable ALLAN ., DR JIM Mcdonnell Admitting Unavailable AICHHOLZ, SPECIAL ASSETS OFFICER JAYMIE Primary Care Unavailable ALLAN ., DR JIM Mcdonnell Admitting Unavailable ALLAN ., DR JIM Mcdonnell Attending Unavailable ALLAN ., DR JIM Mcdonnell Consulting Unavailable AICHHOLZ, SPECIAL ASSETS OFFICER JAYMIE Primary Care Unavailable ALLAN ., DR JIM Mcdonnell Admitting Unavailable ALLAN ., DR JIM Mcdonnell Attending Unavailable AICHHOLZ, SPECIAL ASSETS OFFICER JAYMIE Primary Care Unavailable THORNE ., JENNY Consulting Unavailable ALLAN ., DR JIM Mcdonnell Admitting Unavailable LALAN ., DR JIM Mcdonnell Attending Unavailable ALLAN ., DR JIM Mcdonnell Consulting Unavailable AICHHOLZ, SPECIAL ASSETS OFFICER JAYMIE Primary Care Unavailable ALLAN ., DR JIM Mcdonnell Admitting Unavailable ALLAN ., DR JIM Mcdonnell Attending Unavailable ALLAN ., DR JIM Mcdonnell Consulting Unavailable AICHHOLZ, SPECIAL ASSETS OFFICER JAYMIE Primary Care Unavailable THORNE ., JENNY Consulting Unavailable ALLAN ., DR JIM Mcdonnell Admitting Unavailable ALLAN ., DR JIM Mcdonnell Attending Unavailable AICHHOLZ, SPECIAL ASSETS OFFICER JAYMIE Primary Care Unavailable ALLAN ., DR JIM Mcdonnell Attending Unavailable ALLAN ., DR JIM Mcdonnell Consulting Unavailable ALLAN ., DR JIM Mcdonnell Admitting Unavailable AICHHOLZ, SPECIAL ASSETS OFFICER JAYMIE Primary Care Unavailable LAKSHMIPATHY ., NARENDRANEDWAR Consulting Evelyn vailable NILL ., DR MASSEY Consulting Unavailable NILL ., DR MASSEY Admitting Unavailable AICHHOLZ, SPECIAL ASSETS OFFICER JAYMIE Primary Care Unavailable NILL ., DR MASSEY Attending Unavailable AICHHOLZ, SPECIAL ASSETS OFFICER JAYMIE Admitting Unavailable AICHHOLZ, SPECIAL ASSETS OFFICER JAYMIE Attending Unavailable AICHHOLZ, SPECIAL ASSETS OFFICER JAYMIE Consulting Unavailable AICHHOLZ, SPECIAL ASSETS OFFICER JAYMIE Primary Care Unavailable DR MELISSA ROSENBERG Consulting Unavailable AICHHOLZ, SPECIAL ASSETS OFFICER JAYMIE Admitting Unavailable AICHHOLZ, SPECIAL ASSETS OFFICER JAYMIE Attending Unavailable AICHHOLZ, SPECIAL ASSETS OFFICER JAYMIE Consulting Unavailable AICHHOLZ, SPECIAL ASSETS OFFICER JAYMIE Primary Care Unavailable LORI FROST Consulting Unavailable ALLAN ., DR JIM Mcdonnell Attending Unavailable ALLAN ., DR JIM Mcdonnell Admitting Unavailable AICHHOLZ, SPECIAL ASSETS OFFICER JAYMIE Primary Care Unavailable AICHHOLZ, SPECIAL ASSETS OFFICER JAYMIE Primary Care Unavailable SAMSA ., MAGDALENA Admitting Unavailable SAMSA ., MAGDALENA Attending Unavailable SAMSA ., MAGDALENA Consulting Unavailable ALLAN ., DR JIM Mcdonnell Attending Unavailable ALLAN ., DR JIM Mcdonnell Admitting Unavailable ALLAN ., DR JIM Mcdonnell Consulting Unavailable AICHHOLZ, SPECIAL ASSETS OFFICER JAYMIE Primary Care Unavailable AICHHOLZ, SPECIAL ASSETS OFFICER JAYMIE Admitting Unavailable AICHHOLZ, SPECIAL ASSETS OFFICER JAYMIE Attending Unavailable AICHHOLZ, SPECIAL ASSETS OFFICER JAYMIE Consulting Unavailable AICHHOLZ, SPECIAL ASSETS OFFICER JAYMIE Primary Care Unavailable Aichholz WEDDING DESIGNER, Jaymie Unavailable Alma AMADOR, Sequeira Primary Care Provider Aichholz WEDDING DESIGNER, Jaymie Unavailable Anne AMADOR, Rohan Primary Care Provider Aichholz WEDDING DESIGNER, Jaymie Unavailable Alphonse Damian Attending Unavailab le Alphonse Damian Admitting Unavailab le Aichholz, Jaymie J Primary Care Unavailable SAUMYA BACK Attending Unavailable AICHHOLZ, JAYMIE Referring Unavailable AICHHOLZ, JAYMIE Attending Unavailable NAT HENDERSON Attending Unavailable AICHHOLZ, JAYMIE Attending Unavailable AICHHOLZ, JAYMIE Attending Unavailable Aichholz WEDDING DESIGNER-C, Jaymie J Primary Care Provider [phone] Alphonse Damian MD Attending Provider Aichholz WEDDING DESIGNER-C, Jaymie Danielle Attending Provider [phone] Mayela Merchant MD Attending Unavailable Aichholz WEDDING DESIGNER, Jaymie Unavailable Alma AMADOR, Sequeira Primary Care Provider Anne AMADOR, Rohan Primary Care Provider Anne AMADOR, Rohan Primary Care Provider Aicholervin WEDDING DESIGNER, Jaymie Unavailable Allergies Allergy ClassificationReported Allergen(s)Allergy TypeDate of OnsetReaction(s) Facility (20 sources)Penicillins; Translations: [penicillins]Drug [id number] Dyspnea (finding), Weal (disorder), Hives, Shortness of breath, SwellingGeneral Surgery [place] (3 sources)predniSONE; Translations: [prednisone]Drug Hrfhsde55-77-9868Lhfdiyz (finding)[facility] [place] (1 source)prednisoLONEDrug AllergyThe [facility] (20 sources)PrednisonePropensity to adverse agpzhmvaa96-59-3854DhsdfvcJSCJ Healthcare (9 sources)PenicillinDrug Vacthrl43-46-7781CeankBwrioiwtnWVUMedicine Barnesville HospitalComment on above:shortness of breath Medications Current Medications MedicationDrug Class(es)DatesSig (Normalized)Sig (Original)acetaminophen 325 mg / HYDROcodone bitartrate 5 mg oral tablet (3 sources)Opioid AgonistStart: 08-29-2024 End: 60-32-3604cwrj 1 tablet by mouth onceHYDROcodone-acetaminophen ([place]) 5- 325 MG tablet Indications: Acute back pain with sciatica, unspecified laterality Take 1 tablet by mouth every 12 (twelve) hours if needed for severe pain for up to10 days 20 tablet 08/29/2024 09/08/2024 Activealbuterol 0.83 mg/ml inhalation solution (20 sources)beta2-Adrenergic AgonistStart: 70-60-8460ndyk 2.5 mg by inhalation every four to six hours as neededAlbuterol Sulfate 2.5 mg /3 mL (0.083 %) solution for nebulization Active 2.5 MG INHALATION EVERY 4-6 HOURS as needed October 28, 2024 12:00am Complies with drug therapyStart: 19-95-3305ecqg 1 puff(s) by inhalation every six hours as neededAlbuterol Sulfate 90 mcg/actuation HFA aerosol inhaler Active 2 PUFF INHALATION Every 6 hours as nee ded October 28, 2024 12:00am Complies with drug therapyStart: 04-19-2024 End: 70-02-0337gqwe 2 puff(s) by inhalation every six hours for wheezing albuterol HFA 90 mcg/act inhaler Indications: COPD mixed type (HCC) Inhale 2 puffs every 6 (six) hours if needed for shortness of breath or wheezing 18 g 04/19/2024 ActiveStart: 38-07-1616jdnisqctm (2.5 MG/3ML) 0.083% nebulizer solution Take 2.5 mg by nebulization every 6 (six) hours ifneeded for shortness of breath or wheezing 12/24/2023 Activealbuterol 0.833 mg/ml / ipratropium bromide 0.167 mg/ml inhalation solution (20 sources)Anticholinergic, beta2-Adrenergic AgonistStart: 16-93-7076ngis 1 mL by inhalation every four to six hours as neededIpratropium-Albuterol 0.5 mg-3 mg(2.5 mg base)/3 mL solution for nebulization Active 3 ML INHALATION EVERY 4-6 HOURS as needed October 28, 2024 12:00am Complies with drug therapyStart: 62-03-9607btfceveyxjv-albuterol (Duo-Neb) 0.5-2.5 mg/3 mL nebulizer solution Take 3 mL by nebulization every 6 (six) hours if needed for wheezing or shortness of breath 12/28/2023 Activeamitriptyline hydrochloride 100 mg oral tablet (20 sources)Tricyclic AntidepressantStart: 40-73-0428Yeryqycqropyw 100 mg tablet Active 50 MG PO Daily at bedtime October 28, 2024 12:00am Complies with drug therapyStart: 01-26-2024 End: 79-77-9440xbxg 0.5 tablet by mouth at bedtimeamitriptyline (Elavil) 100 MG tablet Indications: Fibromyalgia Take 0.5 tablets (50 mg) by mouth atbedtime 45 tablet 1 07/31/2024 10/29/2024 ActiveStart: 05-05-2023 End: 41-47-1874prbd 0.5 tablet by mouth at bedtimeamitriptyline (Elavil) 100 MG tablet Indications: Fibromyalgia Take 0.5 tablets (50 mg) by mouth atbedtime 45 tablet 1 10/26/2023 ActiveStart: 19-38-4997kdcenkotvgtrr 100 mg oral tablet 50 mg = 0.5 tab(s), Oral, Once a day (at bedtime), Refills(s) 0 Start Date: 01/22/22 Status: Ordered End: 13-94-4032btah 1 tablet by mouth at bedtimeamitriptyline (Elavil) 50 MG tablet Take 50 mg by mouth at bedtime 01/03/2024 Discontinued (Therapycompleted) atorvastatin 20 mg oral tablet (20 sources)HMG-CoA Reductase InhibitorStart: 04-10-2024 End: 16-04-7393jxkz 1 tablet by mouth once daily at bedtimeAtorvastatin 20 mg tablet Active 20 MG PO Daily at bedtime October 28, 2024 12:00am Complies with drug therapyStart: 05-18-2023 End: 15-55-8697dmzn 1 tablet by mouth at bedtimeatorvastatin (Lipitor) 20 MG tablet Indications: Mixed hyperlipidemia (CMS/HCC) Take 1 tablet (20 mg) by mouth at bedtime 30 tablet 3 01/03/2024 ActiveStart: 02-28-2023 End: 59-80-3910oaec 1 tablet by mouth in the eveningatorvastatin (Lipitor) 20 MG tablet Indications: Mixed hyperlipidemia (CMS/HCC) Take 1 tablet (20 mg) by mouth in the evening 30 tablet 2 02/28/2023 03/30/2023 Eztuun645 actuat budesonide 0.16 mg/actuat / formoterol fumarate 0.0048 mg/actuat / glycopyrrolate 0.009 mg/actuat metered dose inhaler (20 sources)Corticosteroid, beta2-Adrenergic AgonistStart: 10-28-2024 Oglbhcfwft-Crybwvlp-Svjsyynqxs (Breztri Aerosphere) 160-9-4.8 mcg/actuation HFA aerosol inhaler Active 2 INH INHALATION Twice daily October 28, 2024 12:00am Complies with drug therapyStart: 07-31-2024 End: 75-49-7629rydt 2 puff(s) by inhalation in the morning, then take 2 puff(s) by inhalation at bedtime, then take 2 puff(s) by inhalation in the morning, then take 2 puff(s) by inhalation at echhpgrMpyrfcm-Dbrtwxopoau-Fvlkkshamh (Breztri Aerosphere) 160-9-4.8 MCG/ACT aerosol Indications: COPD mixed type (HCC) Inhale 2 puffs in the morning and 2 puffs before bedtime. Inhale 2 puffs in the morning and 2 puffs before bedtime. 32 g 1 07/31/2024 10/29/2024 ActiveStart: 09-29-2022 End: 64-57-7076mmjo 2 puff(s) by inhalation in the morningBrechantelli Aerosphere 160-9-4.8 MCG/ACT aerosol Inhale 2 puffs in the morning and 2 puffs before bedtime. 09/29/2022 07/31/2024 Discontinued (Reorder)bumetanide 0.5 mg oral tablet (20 sources)Loop DiureticStart: 15-30-2950jjhk 1 tablet by mouth once daily Bumetanide 0.5 mg tablet Active 0.5 MG PO Daily October 28, 2024 12:00am only MWF Complies withdrug therapyStart: 06-07-2023 End: 39-61-1333vsaamkvzbj (Bumex) 0.5 MG tablet Indications: Bilateral lower extremity edema Take M W F only 27 tablet 1 07/31/2024 ActiveStart: 03-25-2023 End: 93-70-7873izol 1 tablet by mouth in the morningbumetanide (Bumex) 0.5 MG tablet Indications: Bilateral lower extremity edema Take 1 tablet (0.5 mg) by mouth in the morning for 14 days. 14 tablet 0 03/25/2023 04/08/2023 Active cetirizine hydrochloride 10 mg oral tablet (18 sources)Histamine-1 Receptor AntagonistStart: 04-19-2024 End: 07-96-4773fxfo 1 tablet by mouth once dailyCetirizine 10 mg tablet Active 10 MG PO Daily October 28, 2024 12:00am Complies with drug therapy cholecalciferol 0.125 mg oral tablet (20 sources)Vitamin DStart: 55-33-2201zfjj 1 tablet by mouth once daily Cholecalciferol (Vitamin D3) 125 mcg (5,000 unit) tablet Active 125 MCG PO Daily October 28, 2024 12:00am Complies with drug therapycyclobenzaprine hydrochloride 5 mg oral tablet (3 sources)Muscle RelaxantStart: 44-37-7598vtjj 1 tablet by mouth every eight hours [...] mg oral tablet (20 sources)Nonsteroidal Anti-inflammatory DrugStart: 80-52-4791atrw 1 tablet by mouth every eight hours as neededibuprofen 800 MG tablet Take 800 mg by mouth every 8 (eight) hours if needed 01/08/2023 ActivelamoTRIgine 100 mg oral tablet (20 sources)Mood Stabilizer, Anti-epileptic AgentStart: 20-48-2477avsm 1 tablet by mouth once dailyLamotrigine 200 mg tablet Active 200 MG PO Daily October 28, 2024 12:00am Complies with drug therapyStart: 71-88-6582bzzk 1 tablet by mouth once dailyLamotrigine 100 mg tablet Active 100 MG PO Daily October 28, 2024 12:00am Complies with drug therapyStart: 05-04-2023 End: 88-60-8019gxjx 1 tablet by mouth once dailylamoTRIgine (LaMICtal) 150 MG tablet Take 150 mg by mouth Daily 05/04/2023 01/03/2024 Discontinued (Therapy completed)Start: 33-40-6201dnan 1 tablet by mouth once daily in [...] tablet (20 sources)Nonsteroidal Anti-inflammatory DrugStart: 12-05-2023 End: 18-03-0869ndih 1 tablet by mouth once dailyMeloxicam 15 mg tablet Active 15 MG PO Daily October 28, 2024 12:00am Complies with drug therapyStart: 03-15-2023 End: 36-67-4392ibep 1 tablet by mouth in the morningmeloxicam (Mobic) 15 MG tablet Indications: Fibromyalgia Take 1 tablet (15 mg) by mouth in the morning. 30 tablet 5 03/15/2023 04/14/2023 ActiveStart: 92-15-9459xxbs 1 tablet by mouth once dailymeloxicam 15 mg Tab 15 mg = 1 tab(s), Oral, Daily, Refills(s) 0 Start Date: 01/22/22 Status: Orderedmontelukast 10 mg oral tablet (20 sources)Leukotriene Receptor AntagonistStart: 08-24-2023 End: 50-58-4978zaza 1 tablet by mouth once daily at bedtimeMontelukast 10 mg tablet Active 10 MG PO Daily at bedtime October 28, 2024 12:00am Complies with drug therapyomeprazole 40 mg delayed release oral capsule (20 sources)Proton Pump InhibitorStart: 05-05-2023 End: 26-34-9390fpog 1 capsule by mouth once dailyOmeprazole 40 mg capsule,delayed release(DR/EC) Active 40 MG PO Daily October 28, 2024 12:00am Complies with drug therapyStart: 35-72-4957lces 1 capsule by mouth once dailyomeprazole 40 mg Cap-DR 40 mg = 1 cap(s), Oral, Daily, Refills(s) 0 Start Date: 01/22/22 Status: Orderedprazosin 1 mg oral capsule (20 sources)alpha-Adrenergic BlockerStart: 67-22-4568mwoc 1 capsule by mouth once daily at bedtimePrazosin 1 mg capsule Active 2 MG PO Daily at bedtime October 28, 2024 12:00am Complies with drug therapyStart: 70-15-0861mkgd 1 capsule by mouth at bedtimeprazosin (Minipress) 1 MG capsule Take 1 mg by mouth at bedtime 11/16/2023 ActiveStart: 02-53-2649gpxa 1 capsule by mouth once daily at bedtimePrazosin 2 mg capsule Active 2 MG PO Daily at bedtime October 28, 2024 12:00am Complies with drug therapypregabalin 100 mg oral capsule (20 sources)Start: 05-34-1722etdl 1 capsule by mouth three times dailyPregabalin 100 mg capsule Active 100 MG PO Three times daily October 28, 2024 12:00am Complies with drug therapyStart: 12-31-2023 End: 69-66-0447otfu 1 capsule by mouth in the morningpregabalin (Lyrica) 100 MG capsule Indications: Fibromyalgia Take 1 capsule (100 mg) by mouth in the morning and 1 capsule (100 mg) before bedtime. 60 capsule 2 07/31/2024 Active Start: 33-28-4488xzwj 1 capsule by mouth in the morningpregabalin (Lyrica) 100 MG capsule Indications: Fibromyalgia Take 1 capsule (100 mg) by mouth in the morning and 1 capsule (100 mg) before bedtime. 60 capsule 5 06/28/2023 Active Start: 97-02-7199beli 1 capsule by mouth twice dailypregabalin (Lyrica) 100 MG capsule Indications: Fibromyalgia TAKE 1 CAPSULE BY MOUTH TWICE DAILY 60capsule 5 01/06/2023 ActiveStart: 48-85-7767cedz 1 capsule by mouth twice daily pregabalin 100 mg Cap 100 mg = 1 cap(s), Oral, BID, Refills(s) 0 Start Date: 01/22/22 Status: Orderedpropranolol hydrochloride 40 mg oral tablet (20 sources)beta-Adrenergic BlockerStart: 01-26-2024 End: 81-44-4514ixhu 1 tablet by mouth twice dailyPropranolol 40 mg tablet Active 40 MG PO Twice daily October 28, 2024 12:00am Complies with drug therapy Start: 12-25-2023 End: 58-45-9323fdpp 1 tablet by mouth in the morningpropranolol (Inderal) 40 MG tablet Indications: Personal history of other diseases of the nervous system and sense organs Take 1 tablet (40 mg) by mouth in the morning and 1 tablet (40 mg) before bedtime. 60 tablet 1 12/25/2023 ActiveStart: 32-49-6413dsoh 1 tablet by mouth in the morningpropranolol (Inderal) 40 MG tablet Indications: Personal history of other diseases of the nervous system and sense organs Take 1 tablet (40 mg) by mouth in the morning and 1 tablet (40 mg) before bedtime. 60 tablet 5 06/28/2023 ActiveStart: 72-90-8485dlhp 1 tablet by mouth twice dailypropranolol (Inderal) 40 MG tablet Indications: Personal history of other diseases of the nervous system and sense organs TAKE 1 TABLET BY MOUTH TWICE DAILY 60 tablet 5 01/06/2023 ActiveStart: 47-73-2508fgcs 1 tablet by mouth twice dailypropranolol 40 mg Tab 40 mg = 1 tab(s), Oral, BID, Refills(s) 0 Start Date: 01/22/22 Status: OrderedQUEtiapine 300 mg oral tablet (20 sources)Atypical AntipsychoticStart: 82-17-2376llnp 1 tablet by mouth once daily at bedtimeQuetiapine 300 mg tablet Active 300 MG PO Daily at bedtime October 28, 2024 12:00am Complies with drug therapyStart: 05-22-8147jmmg 1 tablet by mouth at bedtimeQUEtiapine (SEROquel) 300 MG tablet Take 300 mg by mouth at bedtime 05/11/2024 ActiveStart: 01-22-2022 End: 38-11-8295IVTLmliy 100 mg Tab 1 tabs QAM and 4 tabs qpm, Refills(s) 0 Start Date: 01/22/22 Status: Ordered End: 20-76-9862vlhh 1 tablet by mouth at bedtimeQUEtiapine (SEROquel) 400 MG tablet Take 400 mg by mouth at bedtime 07/31/2024 Discontinuedsimvastatin 40 mg oral tablet (1 source)HMG-CoA Reductase InhibitorStart: 69-90-5243cmmt 1 tablet by mouth once daily at bedtimesimvastatin 40 mg Tab 40 mg = 1 tab(s), Oral, Once a day (at bedtime), Refills(s) 0 Start Date: 01/22/22 Status: Orderedspironolactone 50 mg oral tablet (20 sources)Aldosterone AntagonistStart: 01-26-2024 End: 40-58-7191lkjv 1 tablet by mouth once dailySpironolactone 50 mg tablet Active 50 MG PO Daily October 28, 2024 12:00am Complies with drug therapy Start: 92-90-0980kmhn 1 tablet by mouth in the morningspironolactone (Aldactone) 50 MG tablet Indications: Localized edema Take 1 tablet (50 mg) by mouthin the morning. 30 tablet 5 09/24/2023 ActiveStart: 03-15-2023 End: 58-36-5543gpcv 1 tablet by mouth in the morningspironolactone (Aldactone) 50 MG tablet Indications: Localized edema Take 1 tablet (50 mg) by mouthin the morning. 30 tablet 5 03/15/2023 04/14/2023 ActiveStart: 14-25-5300loki 1 tablet by mouth once dailyAldactone 50 mg Tab 50 mg = 1 tab(s), Oral, Daily, Refills(s) 0 Start Date: 01/22/22 Status: OrderedtiZANidine 4 mg oral tablet (20 sources)Central alpha-2 Adrenergic AgonistStart: 31-21-8104henp 1 tablet by mouth every twelve hours as neededTizanidine 4 mg tablet Active 4 MG PO Every 12 hours as needed for muscle spasticity October 28, 2024 12:00am Complies with drug therapyStart: 01-03-2024 End: 42-25-4729txfp 1 tablet by mouth oncetiZANidine (Zanaflex) 4 MG tablet Indications: Fibromyalgia Take 1 tablet (4 mg) by mouth every 12 (twelve) hours if needed for muscle spasms 60 tablet 2 09/29/2024 10/29/2024 ActiveStart: 05-05-2023 End: 14-84-1870ypkf 1 tablet by mouth every eight hours for muscle spasms tiZANidine (Zanaflex) 4 MG tablet Indications: Fibromyalgia Take 1 tablet (4 mg) by mouth every 8 (eight) hours if needed for muscle spasms 90 tablet 5 10/26/2023 11/25/2023 ActiveStart: 44-61-5787ujzf 1 tablet by mouth every eight hours as needed for muscle spasmstiZANidine 4 mg Tab 4 mg = 1 tab(s), Oral, q8hr, PRN Spasm, Refills(s) 0 Start Date: 01/22/22 Status: Orderedtake 1 tablet by mouth once dailytiZANidine (Zanaflex) 4 MG tablet Take 4 mg by mouth 1 (one) time each day 0 Activevarenicline 1 mg oral tablet (20 sources)Partial Cholinergic Nicotinic AgonistStart: 92-26-4065ssuy 1 tablet by mouth twice dailyVarenicline Tartrate 1 mg tablet Active 1 MG PO Twice daily October 28, 2024 12:00am Complies with drug therapyStart: 07-31-2024 End: 59-86-3511edio 1 tablet by mouth twice dailyVarenicline Tartrate, Starter, 0.5 MG X 11 & 1 MG X 42 tablet therapy pack Indications: Tobaccodependence Take 1 tablet by mouth Daily 0.5mg once a day for 3 days, then 0.5mg twice a day for 4 days, then 1mg twice a day 53 each 08/06/2024 ActiveStart: 06-26-2024 End: 25-17-6633rxnw 1 tablet by mouth once dailyVarenicline Tartrate, Starter, (Chantix Starting Month ) 0.5 MG X 11 & 1 MG X 42 tablet therapy pack Indications: Tobacco dependence Take 1 tablet by mouth Daily Take as directed 53 each 07/31/2024 08/06/2024 DiscontinuedVitamin D3 5000 intl units (125 mcg) oral tab (1 source)Start: 28-25-8282ggky 1 tablet by mouth once dailyVitamin D3 5000 intl units (125 mcg) oral tab 125 mcg = 1 tab(s), Oral, Daily, Refills(s) 0 Start Da te: 01/22/22 Status: Ordered Problems Active Problems Problem ClassificationProblemDateDocumented DateEpisodic/ChronicAnxiety disorders (20 sources)Mixed anxiety and depressive disorder; Translations: [Anxiety disorder, unspecified]Onset: 02-18-2023 Resolved: [id number] kidney disease (20 sources)Chronic kidney disease stage 3A ; Translations: [Chronic kidney disease, stage 3a (HCC)]Onset: 06-07-2024 Resolved: 570968-06-8777TbycbdbDscktir obstructive pulmonary disease and bronchiectasis (20 sources)Chronic obstructive pulmonary disease, unspecified; Translations: [Chronic obstructive lung disease]Onset: 05-29-2022 Resolved: 14-19-0248PyefiqtFtctwlx obstructive pulmonary disease and bronchiectasis (1 source)Bronchitis, not specified as acute or chronic; Translations: [BRONCHITIS NOT SPEC ACUTE/CHRON]Onset: 38-00-9004BhjpluyjSzhwocfhde and other anemia (1 source)Other megaloblastic anemias, not elsewhere classified; Translations: [OTHER MEGALOBLASTIC ANEMIAS NEC]Onset: 07-39-7400OtxthmsbWndduihu mellitus without complication (4 sources)Hyperglycemia, unspecified; Translations: [HYPERGLYCEMIA UNSPECIFIED] Onset: 82-14-7575NqmynydsVtghkafoq of lipid metabolism (20 sources)Hyperlipidemia; Translations: [Hyperlipidemia, unspecified]Onset: 05-08-2022 Resolved: 986800-09-7043FchsbbkBtoeptgxok disorders (20 sources)Gastroesophageal reflux disease; Translations: [Gastro-esophageal reflux disease without esophagitis]Onset: 03-10-2011 Resolved: 725152-25-6265WexskzbDymnukmml hypertension (20 sources)Essential hypertension; Translations: [Essential (primary) hypertension]Onset: 03-10-2011 Resolved: 264833-27-8964OnibezoOwxwf disorders and dislocations; trauma-related (20 sources)Derangement of left knee; Translations: [Unspecified internal derangement of left knee]Onset: 247378-84-7876NcmqviqNdmerifhrqy deficiencies (20 sources)Vitamin D deficiency; Translations: [Vitamin D deficiency, unspecified]Onset: 282338-71-3389TbwjuegTnxetbaseutouz (20 sources)Osteoarthritis of knee; Translations: [Osteoarthritis of knee, unspecified]Onset: 02-18-2023 Resolved: 305668-30-8818DvcpqhoGemxv connective tissue disease (1 source)Other muscle spasm; Translations: [OTHER MUSCLE SPASM]Onset: 77-81-1116VrhgjyoaQzyox gastrointestinal disorders (1 source)Abnormal feces; Translations: [Other fecal abnormalities]Onset: 45-87-8944XdihssxsNfeqj lower respiratory disease (1 source)Shortness of breath; Translations: [SHORTNESS OF BREATH]Onset: 72-11-6366EzwicyyzYrvav nervous system disorders (1 source)Other chronic pain; Translations: [OTHER CHRONIC PAIN]Onset: 66-92-9060EscaetmWnllj nervous system disorders (2 sources)Parkinsonism due to drug; Translations: [Other drug induced secondary parkinsonism]23-42-7847SvbhixmCigtu nervous system disorders (2 sources)H/O: Disorder; Translations: [Personal history of other diseases of the nervous system and sense organs]53-81-0344VwgpquloSkkyr nutritional; endocrine; and metabolic disorders (20 sources)Body mass index 40+ - severely obese; Translations: [Body mass index (BMI) 40.0-44.9, adult]Onset: 884060-20-3155NkevyqjQjuhq nutritional; endocrine; and metabolic disorders (18 sources)Obesity; Translations: [Obesity, unspecified]Onset: 02-18-2023 97-20-7768AematyqSzuuo nutritional; endocrine; and metabolic disorders (1 source)Obesity, unspecified; Translations: [OBESITY UNSPECIFIED]Onset: 33-96-8176ZugywvuXkgau nutritional; endocrine; and metabolic disorders (20 sources)Obesity caused by energy imbalance; Translations: [Morbid (severe) obesity due to excess calories]Onset: 796288-47-4174KhawwibDssea upper respiratory disease (20 sources)Allergic disposition; Translations: [Other allergic rhinitis]Onset: 025173-74-7130FndwgctLxthmcyv codes; unclassified (1 source)Sleep apnea, unspecified; Translations: [SLEEP APNEA UNSPECIFIED] Onset: 75-40-7404QeczmsdOqobhgmc codes; unclassified (20 sources)Obstructive sleep apnea syndrome; Translations: [Obstructive sleep apnea (adult) (pediatric)]Onset: 874507-84-4157BwrypxsFakggvzv codes; unclassified (2 sources)Localized edema; Translations: [Localized edema]69-38-5086Rephcwvf Spondylosis; intervertebral disc disorders; other back problems (10 sources)Spondylosis without myelopathy or radiculopathy, lumbar region; Translations: [Other intervertebraldisc degeneration, lumbar region]Onset: 63-90-5834BhaxlnqYozcwqamy-related disorders (20 sources)Nicotine dependence, cigarettes, uncomplicated; Translations: [Tobacco dependence syndrome]Onset: 06-04-2022 Resolved: 794830-85-5208GtoddqlFiuctdxeirzp (4 sources)LOW BACK PAIN, UNSPECIFIED; Translations: [LOW BACK PAIN, UNSPECIFIED]Onset: 62-49-8391Yepfhlhnzsrq (4 sources)CONTACT W/AND (SUSP) EXPOS COVID-19; Translations: [CONTACT W/AND (SUSP) EXPOS COVID-19]Onset: 88-90-2148Ulwjd infection (1 source)COVID-19; Translations: [COVID-19]Onset: 03-02-2022 Past or Other Problems Problem ClassificationProblemDateDocumented DateEpisodic/ChronicDeficiency and other anemia (20 sources)Acute megaloblastic anemia; Translations: [Other megaloblastic anemias, not elsewhere classified]Onset: 229118-99-2870MpchdjudUbyaifclbe and other anemia (9 sources)Megaloblastic anemia; Translations: [Other megaloblastic anemias, not elsewhere classified]Onset: 12-06-2024 Resolved: 600344-28-6778RkozvblqU Codes: Adverse effects of medical drugs (1 source)Adverse effect of glucocorticoids and synthetic analogues, initial encounter; Translations: [ADVRS EFF GLUCOCORT SYN ANALOG INIT]Onset: 12-04-2021 EpisodicHeadache; including migraine (20 sources)Migraine; Translations: [Migraine without aura]Onset: 01-04-2023 Resolved: 466653-18-5826KvbvsmjTrxi disorders (9 sources)Moderate recurrent major depression; Translations: [Major depressive disorder, recurrent, moderate]Onset: 12-06-2024 Resolved: 798388-73-7223OuxzlwjUgle disorders (20 sources)Mood disordersOnset: 06-03-2023 Resolved: 270174-88-2092Rmzexmyoquw deficiencies (20 sources)Cobalamin deficiency; Translations: [Deficiency of other specified B group vitamins]Onset: 657852-96-0275PgatnqmnVkcj wounds of extremities (20 sources)Open wound of left foot; Translations: [Unspecified open wound, left foot, initial encounter]Onset: 01-26-2023 Resolved: 362655-57-3211QbjksbghObsuy aftercare (1 source)Other long-term (current) drug therapy; Translations: [OTH SNF CURRENT DRUG THERAPY]Onset: 92-90-5667MadwaftaYeymn and unspecified benign neoplasm (10 sources)Polyp of colon; Translations: [Hyperplastic polyp of sigmoid colon] Onset: 035323-57-9580HysumeqfDieyg and unspecified benign neoplasm (20 sources)Hyperplastic polyp of intestine; Translations: [Polyp of colon] Onset: 001856-55-9748BgtnmbnjSumkf bone disease and musculoskeletal deformities (20 sources)Osteopenia; Translations: [Other specified disorders of bone density and structure, unspecified site]Onset: 118923-30-2477GturtvpgSjxya connective tissue disease (20 sources)Fibromyalgia; Translations: [Fibromyalgia]Onset: 03-10-2011 Resolved: 791755-97-3969NuorgkmvRqapw connective tissue disease (1 source)Fibromyalgia; Translations: [FIBROMYALGIA]Onset: 41-76-5632Hbpgqstz Other ear and sense organ disorders (20 sources)Hearing loss; Translations: [Unspecified hearing loss, unspecified ear]Onset: 02-18-2023 Resolved: 932659-33-2884BbrvvzrOjzka gastrointestinal disorders (4 sources)Other fecal abnormalities; Translations: [OTHER FECAL ABNORMALITIES] Onset: 58-44-9144VnrbxspeTpqnj inflammatory condition of skin (4 sources)Pruritus, unspecified; Translations: [PRURITUS UNSPECIFIED]Onset: 61-55-1953PyzsovlnFzhud liver diseases (20 sources)Aspartate aminotransferase serum level raised; Translations: [Elevated SGOT (AST)]Onset: 03-10-2011 Resolved: 171282-09-2005ZszkaaqtHovmg lower respiratory disease (20 sources)Dyspnea; Translations: [Shortness of breath]Onset: 03-25-2023 Resolved: 798435-58-9107JmigsfqzHmrbx nervous system disorders (20 sources)Tremor; Translations: [Tremor, unspecified]Onset: 02-10-2024 43-72-8355KxwzsapaScqls non-traumatic joint disorders (20 sources)Pain in left knee; Translations: [Pain in joint, lower leg]Onset: 10-13-2021 Resolved: 826499-85-6437ZqshdtzwXrner nutritional; endocrine; and metabolic disorders (20 sources)Severe obesity; Translations: [Morbid (severe) obesity due to excess calories]Onset: 01-26-2023 Resolved: 319701-22-6282MfbkxxzOtizy nutritional; endocrine; and metabolic disorders (10 sources)Morbid obesity; Translations: [Morbid (severe) obesity due to excess calories]Onset: 12-07-2024 Resolved: 064282-30-4714NmoebrmMqcdy screening for suspected conditions (not mental disorders or infectious disease) (20 sources)Stool DNA-based colorectal cancer screening positive; Translations: [Other fecal abnormalities]Onset: 439168-18-1594ZzqafkenKdcly skin disorders (20 sources)Decorative tattoo; Translations: [Other specified disorders of pigmentation]Onset: 03-10-2011 Resolved: 624230-27-5262LigghqlfQslgs upper respiratory infections (20 sources)Acute sinusitis; Translations: [Other acute sinusitis]Onset: 01-26-2023 Resolved: 175682-93-2749UnvkayaxHsugaswjm (except that caused by tuberculosis or sexually transmitted disease) (20 sources)Community acquired pneumonia; Translations: [Pneumonia, unspecified organism]Onset: 01-03-2024 Resolved: 126040-60-4711SltdkmjsCuleflts codes; unclassified (20 sources)Edema of lower extremity; Translations: [Localized edema]Onset: 02-18-2023 Resolved: 377968-79-1692XzeixwvdKqtcrkky codes; unclassified (20 sources)Tobacco user; Translations: [Tobacco use]Onset: 02-18-2023 Resolved: 261541-36-2601ZclwboisZngmvwpi codes; unclassified (1 source)Acquired absence of both cervix and uterus; Translations: [ACQUIRED ABSENCE BOTH CERVIX AND UTERUS]Onset: 53-64-7958QktmgzpmTepbqwem codes; unclassified (1 source)Tobacco use; Translations: [TOBACCO USE]Onset: 10-06-2298Rjuugqrc Residual codes; unclassified (1 source)Insomnia, unspecified; Translations: [INSOMNIA UNSPECIFIED]Onset: 90-84-9432RktjwfxoDenawaui codes; unclassified (20 sources)Bilateral lower limb edema; Translations: [Localized edema]Onset: 686769-98-3241AygceziwVfixdrre codes; unclassified (20 sources)Exposure to carbon monoxide; Translations: [Contact with and (suspected) exposure to other hazardous substances]Onset: 02-18-2023 Resolved: 521090-26-8835EyvmlxxpJnpflnov codes; unclassified (20 sources)Edema of right lower limb; Translations: [Localized edema]Onset: 03-25-2023 Resolved: 742024-18-0549RvtxdfncElafxbzdt and history of mental health and substance abuse codes (20 sources)Tobacco use and exposure - finding; Translations: [Personal history of nicotine dependence]Onset: 03-10-2011 Resolved: 158914-56-2109PgkdvghgPzfrvtcvzed; intervertebral disc disorders; other back problems (20 sources)Chronic low back pain; Translations: [Chronic lumbar pain]Onset: 095493-48-9378UucuncrmJhiytlxelzwa (1 source)LOW BACK PAIN, UNSPECIFIED; Translations: [LOW BACK PAIN, UNSPECIFIED] Onset: 12-61-3522Ycvpxzznifqn (1 source)CONTACT W/AND (SUSP) EXPOS COVID-19; Translations: [CONTACT W/AND (SUSP) EXPOS COVID-19]Onset: 03-10-2022 Results Test NameValueInterpretationReference RangeFacilityGlomerular filtration rate (GFR) estimation in non- AmericanOrdered By: Jaymie Phoenix on 10-10-2024 GFR/1.73 sq M.predicted among non-blacks MDRD (S/P/Bld) [Vol rate/Area]54 mL/min/{1.73_m2}Low>=60 mL/min/1.73m 2FMarietta Osteopathic Clinic Laboratory - Chemistry and Chemistry - challengeOrdered By: Jaymie Phoenix on 66-64-6706Sdkpmty [Mass/Vol]8.9 mg/dL8.5-10.1FMarietta Osteopathic Clinic Chloride [Moles/Vol]101 mmol/B23-566BntcrnzwzOhiohealth Van Wert HospitalCO2 [Moles/Vol]29.5 mmol/L21.0-32.0Ohio[facility] HospitalCreatinine [Mass/Vol]1.03 mg/dLHigh0.55-1.02Ohio[facility] HospitalGFR/1.73 sq M.predicted MDRD (S/P/Bld) [Vol rate/Area]mL/min/{1.73_m2}>=60 mL/min/1.73m 2 [facility] HospitalGlucose [Mass/Vol]111 mg/bGKnde08-775HvineurcoOhiohealth Van Wert HospitalPotassium [Moles/Vol]4.1 mmol/L3.5-5.1FBlanchard Valley Health System Bluffton Hospitalodium [Moles/Vol]139 mmol/C023-083ZsiezziwfOhiohealth Van Wert HospitalUrea nitrogen [Mass/Vol]19.0 mg/dLHigh7.0-18.0Ohio[facility] HospitalUrea nitrogen/Creatinine [Mass ratio]18.4 mg/mgSt. Charles Hospitalerum or plasma anion gap determinationOrdered By: Jaymie Phoenix on 61-58-7682Qukvu gap [Moles/Vol]12.6 mmol/LFMarietta Osteopathic ClinicXR LUMBAR SPINE 6V W BENDINGon 81-54-4232HuoL[place], [place] [address] XRay Report Signed Patient: FRANKY GAGNON I MR#: [id number] : 1965 Acct:[id number] Age/Sex: 59 / F ADM Date: 09/19/24 Loc: RAD Attending Dr: Estelle Vazquez NP Ordering Physician: Estelle Vazquez NP Date of Service: 09/19/24 Procedure(s): XR lumbar spine 6V w bending Accession Number(s): [id number] cc: Jaymie Phoenix WEDDING DESIGNER; Estelle Vazquez NP [place] [id number] Patient Name: FRANKY GAGNON MRN: [id number]:[id number] date: 1965 Sex: F Assigned Patient Location: RAD Current Patient Location: RAD Accession/Order Number: [id number] Exam Date: 09/19/2024 14:32 Report Date: 09/19/2024 [...] Jr., D.O. 09/19/2024 2:33 PM Dictation Location: [place] [address] Electronically authenticated by: [id number] Y Date: 09/19/2024 14:33 Dictated By: Joaquin Chatman M.D. Signed By: 09/19/24 1436 DD/ 32 TD/TT: Manager Embalmer Funeral Director:JEREMIEHRadiology, Radiologist, - 09/19/2024 [place] [address] XRay Report Signed Patient: FRANKY GAGNON I MR#: [id number] : 1965 Acct:[id number] Age/Sex: 59 / F ADM Date: 09/19/24 Loc: [facility] Attending Dr: Estelle Vazquez NP Ordering Physician: Estelle Vazquez NP Date of Service: 09/19/24 Procedure(s): XR lumbar spine 6V w bending Accession Number(s): [id number] cc: Jaymie Phoenix WEDDING DESIGNER; Estelle Vazquez NP [facility] [place] [address] Patient Name: FRANKY GAGNON MRN: TBH:[id number] date: 1965 Sex: F Assigned Patient Location: [facility] Current Patient Location: RAD Accession/Order Number: [id number] Exam Date: 09/19/2024 14:32 Report Date: 09/19/2024 [...] Jr., D.O. 09/19/2024 2:33 PM Dictation Location: [place] [address] Electronically authenticated by: [id number] Y Date: 09/19/2024 14:33 Dictated By: Joaquin Chatman M.D. Signed By: 09/19/24 143 DD/ 32 TD/TT: Manager Embalmer Funeral Director: [facility] HealthcareRadiology Study observation (narrative)NOMS HealthcareXR LUMBAR SPINE 6V W BENDINGOrdered By: Radiologist Radiology on 23-02-7596KEZM Healthcare Work Phone: TBR MICROALB CREAT RATIO RANDOMon 18-40-3671LSFRJEHRXT URINE NDPWFP838.95 mg/dL20.00 - 300.00 mg/dLNOOK HealthcareMICROALBUMIN URINE RANDOM<1.3NINF - 30.0 mg/dLNOOK HealthcareCLINISYNCNOMS HealthcareALL BASIC METABOLIC PANELon 62-71-1036Qbyhc gap [Moles/Vol]11.6 mmol/LNOMS Healthcare Calcium [Mass/Vol]8.9 mg/dL8.5 - 10.1 mg/dLNOOK HealthcareChloride [Moles/Vol] 103 mmol/L98 - 107 mmol/LNOMS HealthcareCO2 [Moles/Vol]31.6 mmol/L21.0 - 32.0 mmol/LNOMS HealthcareCreatinine [Mass/Vol]1.17 mg/dLHigh0.55 - 1.02 mg/dLNOOK HealthcareGFR/1.73 sq M.predicted CKD-EPI (S/P/Bld) [Vol rate/Area]57Low>=60 mL/min/1.73m 2NOMS HealthcareGlucose [Mass/Vol]118 mg/oIWqct22 - 106 mg/dLNOOK HealthcarePotassium [Moles/Vol]4.2 mmol/L3.5 - 5.1 mmol/LNOMS HealthcareSodium [Moles/Vol]142 mmol/L136 - 145 mmol/LNOMS HealthcareTBH EGFR-NON AF ZDNBQVUB64 Low>=60 mL/min/1.73m 2NOMS HealthcareUrea nitrogen [Mass/Vol]12 mg/dL7.0 - 18.0 mg/dLNOOK HealthcareUrea nitrogen/Creatinine [Mass ratio]10.3 mg/mgNOHermann Area District HospitalALL LIPID PROFILE (FASTING)on 62-78-0875HXLG HDL RATIO2.9NOOK HealthcareComment on above:3.3 - 4.4 LOW RISK 4.4 - 7.1 AVERAGE RISK 7.1 - 11.0 MODERATE RISK >11.0 HIGH RISK Cholesterol [Mass/Vol]152 mg/dLNINF - 200 mg/dLNOHermann Area District HospitalCholesterol in HDL [Mass/Vol]52 mg/dL40 - 60 mg/dLNOOK HealthcareComment on above:> or =60 mg/dl - LOW CARDIOVASCULAR RISK <40 mg/dl - HIGH CARDIOVASCULAR RISK Magnesium [Mass/Vol]70 mg/dLNOOK HealthcareComment on above:<100 mg/dl OPTIMAL 100-129 mg/dl NEAR OR ABOVE OPTIMAL 130-159 mg/dl BORDERLINE HIGH 160-189 mg/dl HIGH >190 mg/dl VERY HIGH Magnesium [Mass/Vol]30.8 mg/dLPemiscot Memorial Health SystemsTriglyceride [Mass/Vol]154 mg/dL HighNINF - 150 mg/dLPemiscot Memorial Health SystemsNo Panel Informationon 01-24-2024 Interpretation and review of laboratory resultsAbnoGeisinger Medical CenterCLINISYNC [facility] BASIC METABOLIC PANELon 87-84-5770Gnwur gap [Moles/Vol]12.5 mmol/LNOMS HealthcareCalcium [Mass/Vol]10.1 mg/dL8.5 - 10.1 mg/dLPemiscot Memorial Health Systems Chloride [Moles/Vol]99 mmol/L98 - 107 mmol/LNOMS HealthcareCO2 [Moles/Vol]32.9 mmol/LHigh21.0 - 32.0 mmol/LNOMS HealthcareCreatinine [Mass/Vol]1.38 mg/dLHigh 0.55 - 1.02 mg/dLNOHermann Area District HospitalGFR/1.73 sq M.predicted CKD-EPI (S/P/Bld) [Vol rate/Area]53Qud96 - PINFNOMS Good Samaritan HospitalGlucose [Mass/Vol]102 mg/dL74 - 106 mg/dL [facility] Health SystemsInterpretation and review of laboratory resultsAbnormalNOMS HealthcarePotassium [Moles/Vol]4.4 mmol/L3.5 - 5.1 mmol/LNOMS HealthcareSodium [Moles/Vol]140 mmol/L136 - 145 mmol/LNOMS HealthcareTBH EGFR-NON AF CLQYNJDE05 Low60 - PINFNOMS HealthcareUrea nitrogen [Mass/Vol]13.0 mg/dL7.0 - 18.0 mg/dL NOMS HealthcareUrea nitrogen/Creatinine [Mass ratio]9.4 mg/mgNOMS Healthcare CLINISYNCNOOK HealthcareCT LUNG SCREENING LOW DOSEon 50-21-8930UqjLanagan, [place] [address] CT Scan Report Signed Patient: FRANKY GAGNON MR#: [id number] : 1965 Acct:[id number] Age/Sex: 57 / F ADM Date: 05/31/23 Loc: CT Attending Dr: Jaymie Phoenix NP Ordering Physician: Jaymie Phoenix NP Date of Service: 05/31/23 Procedure(s): CT lung screening low-dose Accession Number(s): [id number] cc: Jaymie Phoenix NP [place] [id number] Patient Name: FRANKY GAGNON MRN: [id number] date: 1965 Sex: F Assigned Patient Location: CT Current Patient Location: CT Accession/Order Number: [id number] Exam Date: 05/31/2023 13:47 Report Date: 05/31/2023 [...] Signed By: 05/31/23 1448 DD/ 1446 TD/TT: Manager Embalmer Funeral Director:TBHRadiology, Radiologist, MD - 05/31/[address] [place] [id number] CT Scan Report Signed Patient: FRANKY GAGNON MR#: [id number] : 1965 Acct:[id number] Age/Sex: 57 / F ADM Date: 05/31/23 Loc: CT Attending Dr: Jaymie Phoenix NP Ordering Physician: Jaymie Phoenix NP Date of Service: 05/31/23 Procedure(s): CT lung screening low-dose Accession Number(s): [id number] cc: Jaymie Phoenix NP The [address] [address] Patient Name: FRANKY GAGNON MRN: [id number] date: 1965 Sex: F Assigned Patient Location: CT Current Patient Location: CT Accession/Order Number: [id number] Exam Date: 05/31/2023 13:47 Report Date: 05/31/2023 [...] Signed By: 05/31/23 1448 DD/ 1446 TD/TT: Manager Embalmer Funeral Director: [facility] HealthcareRadiology Study observation (narrative)NOMS HealthcareCT LUNG SCREENING LOW DOSEOrdered By: Radiologist Radiology on 11-62-6769GSJF Healthcare Work Phone: ca ECHO DOPPLER COMPLETEon 80-36-7911Z[address] [address] Cardiology Report Signed Patient: FRANKY GAGNON MR#: [id number] : 1965 Acct:[id number] Age/Sex: 57 / F ADM Date: 05/05/23 Loc: CARD Attending Dr: Jaymie Phoenix NP Ordering Physician: Jaymie Phoenix NP Date of Service: 05/05/23 Procedure(s): CA echo doppler complete Accession Number(s): [id number] cc: Jaymie Phoenix NP Patient Name: FRANKY GAGNON MR#: [id number] : 1965 Exam Date: 05/05/2023 Ordering Doctor: [...] content not included)...TBHRadiology, Radiologist, - 05/05/2023 [place] [address] Cardiology Report Signed Patient: FRANKY GAGNON MR#: [id number] : 1965 Acct:[id number] Age/Sex: 57 / F ADM Date: 05/05/23 Loc: CARD Attending Dr: Jaymie Phoenix NP Ordering Physician: Jaymie Phoenix NP Date of Service: 05/05/23 Procedure(s): CA echo doppler complete Accession Number(s): [id number] cc: Jaymie Phoenix NP Patient Name: FRANKY GAGNON MR#: [id number] : 1965 Exam Date: 05/05/2023 Ordering Doctor: [...] GARCIA Signed By: 05/05/231642 DD/ 41 TD/TT: Manager Embalmer Funeral Director: [facility] SystemsRadiology Study observation (narrative)[facility] ECHO DOPPLER COMPLETEOrdered By: Radiologist Radiology on 76-31-5644BQMQ [employer] | [employer] Work Phone: ct ABDOMEN PELVIS W CONon 99-60-1825IqbRyan [place] [id number] CT Scan Report Signed Patient: FRANKY GAGNON MR#: [id number] : 1965 Acct:[id number] Age/Sex: 57 / F ADM Date: 04/30/23 Loc: CT Attending Dr: Jaymie Phoenix NP Ordering Physician: Jaymie Phoenix NP Date of Service: 04/30/23 Procedure(s): CT abdomen pelvis w con Accession Number(s): [id number] cc: Jaymie Phoenix NP [address] [address] Patient Name: FRANKY GAGNON MRN: [id number]:[id number] date: 1965 Sex: F Assigned Patient Location: CT Current Patient Location: Accession/Order Number: [id number] Exam Date: 04/30/2023 12:55 Report Date: 05/03/2023 [...] M.D. Signed By: 05/03/23 0858 DD/ TD/TT: Manager Embalmer Funeral Director:TBHRadiology, Radiologist, - 05/03/2023 [place] [address] CT Scan Report Signed Patient: FRANKY GAGNON MR#: [id number] : 1965 Acct:[id number] Age/Sex: 57 / F ADM Date: 04/30/23 Loc: CT Attending Dr: Jaymie Phoenix NP Ordering Physician: Jaymie Phoenix NP Date of Service: 04/30/23 Procedure(s): CT abdomen pelvis w con Accession Number(s): [id number] cc: Jaymie Phoenix NP [place] [address] Patient Name: FRANKY GAGNON MRN: [facility]:[id number] date: 1965 Sex: F Assigned Patient Location: CT Current Patient Location: Accession/Order Number: [id number] Exam Date: 04/30/2023 12:55 Report Date: 05/03/2023 [...] Signed By: 05/03/23 0858 DD/ 0856 TD/TT: Manager Embalmer Funeral Director: [facility] HealthcareRadiology Study observation (narrative)[facility] HealthcareCT ABDOMEN PELVIS W CONOrdered By: Radiologist Radiology on 11-02-3813WBNSPemiscot Memorial Health Systems Work Phone: VC EXT VENOUS REFLUX SABRINA LMTDon 09-18-4579OodL[place], [place] [address] Vein Report Signed Patient: FRANKY GAGNON MR#: [id number] : 1965 Acct:[id number] Age/Sex: 57 / F ADM Date: 04/22/23 Loc: VC Attending Dr: Nadine Guerra M.D. Ordering Physician: Nadine Guerra M.D. Date of Service: 04/22/23 Procedure(s): VC EXT Venous Reflux SABRINA LMTD Accession Number(s): [id number] cc: Jaymie Phoenix WEDDING DESIGNER; Nadine Guerra M.D. Patient Name: FRANKY GAGNON MR#: [id number] : 1965 Exam Date: 04/22/2023 Ordering Doctor: [...] chronis thrombus visualized Compressibility: Normal Flow: Normal Roustabout: Dist/med calf 3.9mm with 1.0s reflux. Tech [...] Signed By: 04/22/23 1441 DD/ 1440 TD/TT: Manager Embalmer Funeral Director:TBHRadiology, Radiologist, MD - 04/22/2023 [place] [address] Vein Report Signed Patient: FRANKY GAGNON MR#: [id number] : 1965 Acct:[id number] Age/Sex: 57 / F ADM Date: 04/22/23 Loc: VC Attending Dr: Nadine Guerra M.D. Ordering Physician: Nadine Guerra M.D. Date of Service: 04/22/23 Procedure(s): VC EXT Venous Reflux SABRINA LMTD Accession Number(s): [id number] cc: Jaymie Phoenix WEDDING DESIGNER; Nadine Guerra M.D. Patient Name: FRANKY GAGNON MR#: [id number] : 1965 Exam Date: 04/22/2023 Ordering Doctor: [...] chronis thrombus visualized Compressibility: Normal Flow: Normal Roustabout: Dist/med calf 3.9mm with 1.0s reflux. Tech [...] Signed By: 04/22/23 1441 DD/ 1440 TD/TT: Manager Embalmer Funeral Director: [facility] HOSPITALKecia HealthcareRadiology Study observation (narrative)NOMS HealthcareVC EXT VENOUS REFLUX SABRINA LMTDOrdered By: Radiologist Radiology on 46-28-1426LJLY Healthcare Work Phone: [facility] EST COMPREHENSIVEon 89-84-3060DljLanagan, [place] [address] Vein Report Signed Patient: FRANKY GAGNON MR#: [id number] : 1965 Acct:[id number] Age/Sex: 57 / F ADM Date: 04/22/23 Loc: Attending Dr: Nadine Guerra M.D. Ordering Physician: Nadine Guerra M.D. Date of Service: 04/22/23 Procedure(s): [facility] Accession Number(s): [id number] cc: Jaymie Phoenix WEDDING DESIGNER; Nadine Guerra M.D. Patient Name: FRANKY GAGNON MR#: [id number] : 1965 Exam Date: 04/22/2023 Ordering Doctor: DR NADINE GUERRA M.D. RADIOLOGY REPORT PROCEDURE: [facility] - OFFICE VISIT INITIAL COMPARISON: [...] content not included)...TBHRadiology, Radiologist, - 04/22/2023 [place] [address] Vein Report Signed Patient: FRANKY GAGNON MR#: [id number] : 1965 Acct:[id number] Age/Sex: 57 / F ADM Date: 04/22/23 Loc: VC Attending Dr: Nadine Guerra M.D. Ordering Physician: Nadine Guerra M.D. Date of Service: 04/22/23 Procedure(s): VC Facility EST Comprehensive Accession Number(s): [id number] cc: Jaymie Phoenix WEDDING DESIGNER; Nadine Guerra M.D. Patient Name: FRANKY GAGNON MR#: [id number] : 1965 Exam Date: 04/22/2023 Ordering Doctor: [...] Signed By: 04/22/23 1449 DD/ 1448 TD/TT: Manager Embalmer Funeral Director: LYNDSAYMercy Hospital St. LouisRadiology Study observation (narrative)[facility] FACILITY EST COMPREHENSIVEOrdered By: Radiologist Radiology on 28-30-0201SQWHPemiscot Memorial Health Systems Work Phone: all CBC WITH AUTO DIFFon 87-72-5416VILJDVDCH ABSOLUTE AUTO0.0NOHermann Area District HospitalBasophils/100 WBC (Bld)0.5 %0.2 - 2.0 %[facility] Eosinophils/100 WBC (Bld)1.5 %0.9 - 7.0 %[facility] Health SystemsErythrocyte distribution width (RBC) [Ratio]14.0 %11.0 - 15.0 %[facility] Health SystemsHematocrit (Bld) [Volume fraction]42.3 %36.0 - 48.0 %[facility] Health SystemsHemoglobin (Bld) [Mass/Vol]13.4 g/dL 12.0 - 16.0 g/dLPemiscot Memorial Health SystemsIMMATURE GRANULOCYTES ABS AUTO0.02NOHermann Area District Hospital Immature granulocytes/100 WBC (Bld)0.3 %0.0 - 0.5 %[facility] SystemsInterpretation and review of laboratory resultsAbnormalPemiscot Memorial Health SystemsLYMPHOCYTES ABSOLUTE AUTO1.9NOHermann Area District HospitalLymphocytes/100 WBC (Bld)30.2 %20.5 - 60.0 %[facility] CenterH (RBC) [Entitic mass]33.6 pg26.7 - 34.0 pgMissouri Baptist Medical CenterHC (RBC) [Mass/Vol]31.7 g/dL29.9 - 35.2 g/dLNOOK HealthcareMCV (RBC) [Entitic vol]106.0 eDFfur37.0 - 99.0 fLNOOK HealthcareMONOCYTES ABSOLUTE AUTO0.6N[facility]S Healthcare Monocytes/100 WBC (Bld)9.3 %1.7 - 12.0 %NOMS HealthcareNEUTROPHILS ABSOLUTE AUTO 3.6NOMS HealthcareNeutrophils/100 WBC (Bld)58.2 %43.0 - 75.0 %NOMMercy Hospital St. Louis Platelet mean volume (Bld) [Entitic vol]10.7 fL9.5 - 13.5 fLNOHermann Area District HospitalTBH EO #0.1NOMS HealthcareTBH [id number] HealthcareTBH RBC3.99LowNOMS HealthcareTBH WBC6.2NOMS HealthcareCLINISYNCNBEAVER COUNTY MEM[facility] HealthcareCCF CMP (CMP) (FOR REMOTE [facility] USE) on 91-80-9998Wjgrzlt [Mass/Vol]3.2 g/dLLow3.4 - 5.0 g/dLNOOK HealthcareALBUMIN GLOBULIN RATIO1.0NOOK HealthcareALP [Catalytic activity/Vol]92 U/L46 - 116 U/L NOM HealthcareALT [Catalytic activity/Vol]36 U/L14 - 59 U/LNOMS HealthcareAnion gap [Moles/Vol]13.2 mmol/LNOMS HealthcareAST [Catalytic activity/Vol]23 U/L15 - 37 U/LNOMS HealthcareBilirubin [Mass/Vol]0.7 mg/dL0.2 - 1.0 mg/dLNOOK Healthcare Calcium [Mass/Vol]8.5 mg/dL8.5 - 10.1 mg/dLNOOK HealthcareChloride [Moles/Vol] 103 mmol/L98 - 107 mmol/LNOMS HealthcareCO2 [Moles/Vol]29.7 mmol/L21.0 - 32.0 mmol/LNOMS HealthcareCreatinine [Mass/Vol]1.37 mg/dLHigh0.55 - 1.02 mg/dLNOOK HealthcareGFR/1.73 sq M.predicted CKD-EPI (S/P/Bld) [Vol rate/Area]46Iur05 - PINFNOMS HealthcareGlobulin (S) [Mass/Vol]3.2 g/dLNOOK HealthcareGlucose [Mass/Vol]77 mg/dL74 - 106 mg/dLNOOK HealthcareInterpretation and review of laboratory resultsAbnoCorey Hospital HealthcarePotassium [Moles/Vol]3.9 mmol/L3.5 - 5.1 mmol/LNOMS HealthcareProtein [Mass/Vol]6.4 g/dL6.4 - 8.2 g/dLNOOK Healthcare Sodium [Moles/Vol]142 mmol/L136 - 145 mmol/LNOMS HealthcareTB EGFR-NON AF RTCYTFKK53Oct78 - PINFNOMS HealthcareUrea nitrogen [Mass/Vol]9.0 mg/dL7.0 - 18.0 mg/dLNOOK HealthcareUrea nitrogen/Creatinine [Mass ratio]6.6 mg/mgNOOK HealthcareCLINISYNCNKansas City VA Medical CenterTB D-DIMERon 03-25-2023 DIMER0.82Critically highNINFTOOELE VALLEY HOSPITAL HealthcareComment on above:RESULTS CALLED TO JAYMIE PHOENIX [...] generalized hospitalization. Interpretation and review of laboratory resultsAbCone Health Alamance RegionalUS.doppler Lower extremity vein - righton [id number], [place] [address] Ultrasound Report Signed Patient: FRANKY GAGNON I MR#: [id number] : 1965 Acct:[id number] Age/Sex: 57 / F ADM Date: 03/25/23 Loc: LAB Attending Dr: Jaymie Phoenix NP Ordering Physician: Jaymie Phoenix NP Date of Service: 03/25/23 Procedure(s): US venous doppler LE RT Accession Number(s): [id number] cc: Jaymie Phoenix NP [address] [address] Patient Name: FRANKY GAGNON MRN: [id number] date: 1965 Sex: F Assigned Patient Location: LAB Current Patient Location: LAB Accession/Order Number: [id number] Exam Date: 03/25/2023 14:30 Report Date: 03/25/2023 [...] Signed By: 03/25/23 1527 DD/ 1524 TD/TT: Manager Embalmer Funeral Director:TBHRadiology, Radiologist, MD - 03/25/2023 [place] [address] Ultrasound Report Signed Patient: FRANKY GAGNON I MR#: [id number] : 1965 Acct:[id number] Age/Sex: 57 / F ADM Date: 03/25/23 Loc: LAB Attending Dr: Jaymie Phoenix NP Ordering Physician: Jaymie Phoenix NP Date of Service: 03/25/23 Procedure(s): US venous doppler LE RT Accession Number(s): [id number] cc: Jaymie Phoenix NP The [address] [address] Patient Name: FRANKY GAGNON MRN: [id number] date: 1965 Sex: F Assigned Patient Location: LAB Current Patient Location: LAB Accession/Order Number: [id number] Exam Date: 03/25/2023 14:30 Report Date: 03/25/2023 [...] the right lower extremity. Electronically authenticated by: MLEISSA ROSENBERG Date: 03/25/2023 15:24 Dictated By: Melissa Rosenberg M.D. Signed By: 03/25/231526 DD/ 23 TD/TT: Manager Embalmer Funeral Director: [facility] Health SystemsRadiology Study observation (narrative)SYLVIA [facility] Samaritan HospitalUS.doppler Lower extremity vein - rightOrdered By: Radiologist Radiology on [id number] | [employer] Work Phone: XR CHEST 2Von 30-07-0002BtqLanagan, [place] [address] XRay Report Signed Patient: FRANKY GAGNON I MR#: [id number] : 1965 Acct:[id number] Age/Sex: 57 / F ADM Date: 03/25/23 Loc: LAB Attending Dr: Jaymie Phoenix NP Ordering Physician: Jaymie Phoenix NP Date of Service: 03/25/23 Procedure(s): XR chest 2V Accession Number(s): [id number] cc: Jaymie Phoenix NP [place] [address] Patient Name: FRANKY GAGNON MRN: [id number] date: 1965 Sex: F Assigned Patient Location: LAB Current Patient Location: LAB Accession/Order Number: [id number] Exam Date: 03/25/2023 14:25 Report Date: 03/25/2023 [...] Signed By: 03/25/23 1440 DD/ 1438 TD/TT: Manager Embalmer Funeral Director:TBHRadiology, Radiologist, - 03/25/2023 [place] [address] XRay Report Signed Patient: FRANKY GAGNON I MR#: [id number] : 1965 Acct:[id number] Age/Sex: 57 / F ADM Date: 03/25/23 Loc: LAB Attending Dr: Jaymie Phoenix NP Ordering Physician: Jaymie Phoenix NP Date of Service: 03/25/23 Procedure(s): XR chest 2V Accession Number(s): [id number] cc: Jaymie Phoenix NP [place] [id number] Patient Name: FRANKY GAGNON MRN: [id number] date: 1965 Sex: F Assigned Patient Location: LAB Current Patient Location: LAB Accession/Order Number: [id number] Exam Date: 03/25/2023 14:25 Report Date: 03/25/2023 [...] Signed By: 03/25/23 1440 DD/ 1438 TD/TT: Manager Embalmer Funeral Director: SYLVIA HealthcareRadiology Study observation (narrative)[facility] HealthcareXR CHEST 2V Ordered By: Radiologist Radiology on 05-29-1905BXCX [employer] | [employer] Work Phone: SEGMENTAL BLOOD PRESSUREon [phone], [place] [address] Cardiology Report Signed Patient: FRANKY GAGNON I MR#: [id number] : 1965 Acct:[id number] Age/Sex: 57 / F ADM Date: 03/24/23 Loc: CARD Attending Dr: Nilam Busby Ordering Physician: Nilam Busby Date of Service: 03/24/23 Procedure(s): CA segmental UE or LE SABRINA Accession Number(s): [id number] cc: Jaymie Phoenix WEDDING DESIGNER; Nilam Busby [facility] Test Date: 2023-03-24 Pat Name: FRANKY GAGNON Department: Room: - Gender: Female Loader Technician: : 1965 Requested By: Nilam Busby Order Number: [id number] Julia MD: RICH CANNON Interpretive Statements Monophasic [...] D.O. Signed By: 03/24/23223203/24/232232 DD/ 1306 TD/TT: Manager Embalmer Funeral Director:TBHRadiology, Radiologist, - 03/24/2023 [place] [address] Cardiology Report Signed Patient: FRANKY GAGNON I MR#: [id number] : 1965 Acct:[id number] Age/Sex: 57 / F ADM Date: 03/24/23 Loc: CARD Attending Dr: Nilam Busby Ordering Physician: Nilam Busby Date of Service: 03/24/23 Procedure(s): CA segmental UE or LE SABRINA Accession Number(s): [id number] cc: Jaymie Phoenix WEDDING DESIGNER; Nilam Busby [facility] Test Date: 2023-03-24 Pat Name: FRANKY GAGNON Department: Room: - Gender: Female Loader Technician: : 1965 Requested By: Nilam Busby Order Number: [id number] Reading MD: RICH CANNON Interpretive Statements Monophasic [...] 22:33:33 EST by RICH CANNON Dictated By: Rihc Cannon D.O. Signed By: 02/223203/24/232232 DD/ 1306 TD/TT: Manager Embalmer Funeral Director: SYLVIA HealthcareRadiology Study observation (narrative)NOMS HealthcareSEGMENTAL BLOOD PRESSUREOrdered By: Radiologist Radiology on [id number] Memorial Health Systems Work Phone: bLOOD GASES BTYon Kettering Health DaytonComment on above:Performed By: #### ABG ####[facility] U[address] [place], [place] [address]Dr.Phani ElALLENS TEST PositiveMercy Health St. Vincent Medical CenterComment on above:Performed By: #### ABG ####[facility] Bqhoebhqen[address] [place], [place] [address]Dr. Phani ElBase excess Calc (Bld) [Moles/Vol]1.4 mmol/LNormal-2.0-2.0The [facility] HospitalComment on above:Performed By: #### ABG ####[facility] Fbyxqdfnrt[address] [place], [place] [address]Dr.Phani ChangBIPAP PRESSURE NormalTrihealth Good Samaritan HospitalComment on above:Performed By: #### ABG ####[facility] Gjetfmueig[address] [place], [place] [address]Dr.Yilan ChangCPAP NormalTrihealth Good Samaritan HospitalComment on above:Performed By: #### ABG ####[facility] Mvqybixenj[address] [place], [place] [address]Dr.Phani ChangFIO2 NormalTrihealth Good Samaritan HospitalComment on above:Performed By: #### ABG ####[facility] Uduyojdxpi[address] [place], [place] [address]Dr.Phani ChangHCO3 (Bld) [Moles/Vol]26.2 mmol/LCritically high22.0-26.0The [facility] HospitalComment on above:Performed By: #### ABG ####[facility] Tqtglalzpn[address] [place], [place] [address]Dr.Phani ChangLPMNormalThe Casnovia HospitalComment on above:Performed By: #### ABG ####[facility] Khrsdbakcd[address] [place], [place] [address]Dr.Loryzach ElMINUTE [facility] Comment on above:Performed By: #### ABG ####[facility] Sktplbukpa[address] [place], [place] [address]Dr.Phani ChangOxygen (Bld) [Partial pressure]56.1 mm[Hg]Critically low80.0-100.0The [facility] HospitalComment on above:Performed By: #### ABG ####[facility] Wbbfuisghd[address] [place], [place] [address]Dr.Phani ElOxygen saturation in Blood92.0 % Critically low95.0-100.0The [facility] HospitalComment on above:Performed By: #### ABG ####[facility] Jrntfoqhfw17[address] [place], [place] [address]Dr.Phani ElPCO242.6 pkYnQgwihz78.0-45.0The [facility] HospitalComment on above:Performed By: #### ABG ####[facility] Pvssvxzadt[address] [place], [place] [address]Dr.Phani ElPEMemorial Health SystemComment on above:Performed By: #### ABG ####[facility] Ixougexysx[address] [place], [place] [address]Dr.Phani ChangpH (Bld)7.398 [pH]Normal7.350-7.450The [facility] HospitalComment on above:Performed By: #### ABG ####[facility] Kjzbndtzla[address] [place], [place] [address]Dr.Phani ChangPIPNormalTrihealth Good Samaritan HospitalComment on above:Performed By: #### ABG ####[facility] Diseufragz[address] [place], [place] [address]Dr.Phani ChangSelect Medical Specialty Hospital - ColumbusComment on above:Performed By: #### ABG ####[facility] Vxgguopeht[address] [place], [place] [address]Dr.Phani ChangPUNCTURE SITERR NormalTrihealth Good Samaritan HospitalComment on above:Performed By: #### ABG ####[facility] G[address]xc[address] [place] [address]Dr.Phani Mcgregor NormalTrihealth Good Samaritan HospitalComment on above:Performed By: #### ABG ####[facility] Qxdgjdngny[address] [place] [address]Dr.Phani Quintero [facility] - Columbus SouthComment on above:Performed By: #### ABG ####[facility] Wkcgelsjmq65[address] [place] [address]Dr. Phani [facility]Medica Bay Park HospitalComment on above:Performed By: #### ABG ####[facility] Ejppgaumqm[address] [place] [address]Dr. Phani ChangECHOCARDIO M/2D COMPLETEon 87-37-8479GOOBEPUVNS M/2D COMPLETEPatient: FRANKY GAGNON I. Exam Date: 07/08/2022 : 1965 Gender:F Ordering : DR. MAGDALENA DOWNING . Admission #: [id number] Family : MEREDITH PHOENIX SPECIAL ASSETS OFFICER Order #: [id number] CLICK HERE TO VIEW EXAM ECHOCARDIOGRAM REPORT [...] by: Chetan Garcia M.D. on 07/08/2022 at 18:14[facility] LUNG CANCER SCREENINGon 57-92-7829FT LUNG CANCER SCREENING EXAMINATION: CT LUNG CANCER [...] Electronically authenticated by: MELISSA ROSENBERG Date: 2022-05-29 09:36NormalThParkview Health [facility] Hospital AUTO DIFFon 72-04-5181VLXJ #0.1 103/ulNormal0.0-0.1The [facility] HospitalComment on above:Performed By: #### CBC #### [facility] [address] [place] [address] [address] Phani ElBasophils/100 WBC (Bld)0.8 %Normal0.2-2.0[facility] Comment on above:Performed By: #### CBC #### [facility] [address] [place] [address] [address] Phani Cabezas #0.1 103/ulNormal0.0-0.7The [facility] HospitalComment on above: Performed By: #### CBC #### [facility] [address] [place] [address] Dr. Phani Royosinophils/100 WBC (Bld)2.0 %Normal0.9-7.0[facility] Comment on above:Performed By: #### CBC #### [facility] [address] [place] [address] [address] Phani Royrythrocyte distribution width (RBC) [Ratio]14.0 %Hzfcgu21.0-15.0 [facility]aritan HospitalComment on above:Performed By: #### CBC #### [facility] [address] [place] [address] Dr. Phani ElHematocrit (Bld) [Volume fraction]48.7 %Critically high36.0-48.0 [facility]aritan HospitalComment on above:Performed By: #### CBC #### [facility] [address] [place] [address] Dr. Phani ElHemoglobin (Bld) [Mass/Vol]15.9 g/iXVshgra49.0-16.0[facility] Samaritan HospitalComment on above:Performed By: #### CBC #### [facility] [address] [place] [address] Dr. Phani Escobar #0.05 10e3/ulCritically high0.00-0.03[facility] Comment on above:Performed By: #### CBC #### [facility] [address] [place] [address] [address] Phani Escobar %0.8 %Critically high0.0-0.5The [facility] HospitalComment on above:Performed By: #### CBC #### [facility] [address] [place] [address] [address] Phani Sol #1.9 103/ulNormal1.2-3.8The [facility] HospitalComment on above:Performed By: #### CBC #### [facility] [address] [place] [address] [address] Phani Rogelhocytes/100 WBC (Bld)30.1 %Ndrsvg86.5-60.0The [facility] HospitalComment on above:Performed By: #### CBC #### [facility] [address] [place] [address] [address] Phani GreenUAL DIFF REQNONormalThe [facility] HospitalComment on above: Performed By: #### CBC #### [facility] [address] [place] [address] [address] Phani Hodge (RBC) [Entitic mass]32.9 aoRmsbum67.7-34.0The [facility] HospitalComment on above:Performed By: #### CBC #### [facility] [address] [place] [address] Dr. Phani Hodge (RBC) [Mass/Vol]32.6 g/iLLnhlpi03.9-35.2The [facility] HospitalComment on above:Performed By: #### CBC #### [facility] [address] [place] [address] Dr. Phani Hodge (RBC) [Entitic vol]100.8 fLCritically high81.0-99.0The [facility] HospitalComment on above:Performed By: #### CBC #### [facility] [address] [place] [address] Dr. Phani Noble #0.5 103/ulNormal0.3-0.8The [facility] HospitalComment on above:Performed By: #### CBC #### [facility] [address] [place] [address] [address] Phani Andersonocytes/100 WBC (Bld)7.2 %Normal1.7-12.0The [facility] on above:Performed By: #### CBC #### [facility] [address] [place] [address] [address] Phani DavenportUT #3.8 103/ulNormal1.4-6.5The [facility] HospitalComment on above:Performed By: #### CBC #### [facility] [address] [place] [address] Dr. Phani Davenportutrophils/100 WBC (Bld)59.1 %Ekjgcm22.0-75.0The [facility] HospitalComment on above:Performed By: #### CBC #### [facility] [address] [place] [address] Dr. Phani ElPlatelet mean volume (Bld) [Entitic vol]11.0 fLNormal9.5-13.5The [facility] HospitalComment on above:Performed By: #### CBC #### [facility] [address] [place] [address] Dr. Phani ElPLT167 103/lfTevyjf992-530Qei [facility] HospitalComment on above: Performed By: #### CBC #### [facility] [address] [place] [address] Dr. Phani ElRBC4.83 106/ulNormal4.20-5.40The [facility] HospitalComment on above:Performed By: #### CBC #### [facility] [address] [place] [address] Dr. Phani ElWBC6.4 103/ulNormal4.0-11.0The [facility] HospitalCommymichigan medical center alma on above: Performed By: #### CBC #### [facility] [address] [place] [address] Dr. Phani ElGLYCOHEMOGLOBIN A1Con 98-74-6478OAX RECOMMENDATIONSEE BELOWNormal The [facility] HospitalComment on above:Result Comment: ADA RECOMMENDED LIMIT 4.0 - 6.0 ADA THERAPEUTIC TARGET < 7.0 ACTION SUGGESTED > 7.0Performed By: #### A1C ####[facility] [address] [place] [address]Dr. Phani ElGlucose [Mass/Vol]114 mg/dLMercy Health St. Vincent Medical CenterCommymichigan medical center alma on above:Performed By: #### A1C ####[facility] R[address]cy[address]se[address] [place] [address]Dr.Yilan ElHbA1c (Bld) [Mass fraction]5.6 %Normal 4.5-6.2[facility] Samaritan HospitalComment on above:Performed By: #### A1C ####[facility] [address]qfu[address] [place] [address]DrGerardo ElLIPID PROFILEon 23-10-6128XNSS-HDL RATIO NORMSProMedica Fostoria Community Hospital Comment on above:Result Comment: 3.3 - 4.4 LOW RISK 4.4 - 7.1 AVERAGE RISK 7.1 - 11.0 MODERATE RISK >11.0 HIGH RISKPerformed By: #### CMP, LIPID #### [facility] [address] [place] [address] [address] Phani Rojasesterol [Mass/Vol]178 mg/dLNormal<=200The [facility] Comment on above:Performed By: #### CMP, LIPID #### [facility] [address] [place] [address] [address] Phani Rojasesterol in HDL [Mass/Vol]54 mg/sTLmmevr77-21Ouk [facility] on above:Performed By: #### CMP, LIPID #### [facility] [address] [place] [address] [address] Phani Rojasesterol in LDL [Mass/Vol]86.6 mg/dLAultman Orrville Hospital on above:Performed By: #### CMP, LIPID #### [facility] [address] [place] [address] [address] Phani Mireles.total/Cholesterol in HDL [Mass ratio]3.3 {ratio} NormalThe [facility] HospitalComment on above:Performed By: #### CMP, LIPID #### [facility] [address] [place] [address] [address] Phani Slater NORMAL> or = 60 mg/dl - LOW CARDIOVASCULAR RISK <40 mg/dl - HIGH CARDIOVASCULAR RISKMercy Health St. Vincent Medical CenterComment on above:Performed By: #### CMP, LIPID #### [facility] [address] [place] [address] [address] Phani ElLDL CALC NORMALSEE BELOWNoOhioHealthComment on above:Result Comment: <100 mg/dl OPTIMAL 100 - 129 mg/dl NEAR OR ABOVE OPTIMAL 130 - 159 mg/dl BORDERLINE HIGH 160 - 189 mg/dl HIGH >190 mg/dl VERY HIGH Performed By: #### CMP, LIPID #### [facility] [address] [place] [address] [address] Phani ElTriglyceride [Mass/Vol]187 mg/dLCritically high<=150The [facility] HospitalComment on above:Performed By: #### CMP, LIPID #### [facility] [address] [place] [address] [address] Phani ElVLDL CALC37.4 mg/dLNoOhioHealthComment on above: Performed By: #### CMP, LIPID #### [facility] [address] [place] [address] [address] Phani ElPROF 14(COMP METB)on 55-07-4960Eczsxjq [Mass/Vol]3.6 g/dLNormal 3.4-5.0The [facility] HospitalComment on above:Performed By: #### CMP, LIPID ####[facility] [address]pmwkp[address] [place] [address]Dr. Phani ElAlbumin/Globulin [Mass ratio]1.1 {ratio}NormalThe [facility] Comment on above:Performed By: #### CMP, LIPID ####[facility] [address]ithrwi[address] [place] [address]Dr. Phani ElALP [Catalytic activity/Vol]91 U/GQfrjcg67-347Xej Dionna HospitalComment on above:Performed By: #### CMP, LIPID ####[facility] Vdinktdcrx[address] [place] [address]Dr. Yilan ChangALT [Catalytic activity/Vol]34 U/L Vhyqaj58-13Lri [facility] HospitalComment on above:Performed By: #### CMP, LIPID ####[facility] [address]qqwhnwloq9[address] [place] [address]Dr. Yilan ChangAnion gap [Moles/Vol]11.6 mmol/LNormalThe [facility] HospitalComment on above:Performed By: #### CMP, LIPID ####[facility] Txciidxsoz4597 [place] [address]Dr. Yilan ChangAST [Catalytic activity/Vol]18 U/L Gwodwo05-32Qoz [facility] HospitalComment on above:Performed By: #### CMP, LIPID ####[facility] [address]wgbirmf[address] [place], [place] [address]Dr. Yilan ChangBilirubin [Mass/Vol]0.6 mg/dLNormal0.2-1.0The [facility] Comment on above:Performed By: #### CMP, LIPID ####[facility] [address]ii[address]reyx[address] [place], [place] [address]Dr. Yilan ChangCalcium [Mass/Vol]9.2 mg/dLNormal8.5-10.1The [facility] Bryan Hospitalment on above:Performed By: #### CMP, LIPID ####[facility] [address]zbuzvgbdg[address] [place] [address]Dr. Yilan ChangChloride [Moles/Vol]106 mmol/LNormal 98-107The [facility] HospitalComment on above:Performed By: #### CMP, LIPID ####[facility] Y[address] [place], [place] [address]Dr. Yilan ChangCO2 [Moles/Vol]32.3 mmol/LCritically high21.0-32.0The [facility] Hospitalment on above:Performed By: #### CMP, LIPID ####[facility] [address]xotpkdkke[address] [place], [place] [address]Dr. Yilan ChangCreatinine [Mass/Vol]1.04 mg/dLCritically high0.55-1.02The [facility] HospitalComment on above:Performed By: #### CMP, LIPID ####[facility] [address]pcysoke[address] [place], [place] [address]Dr. Yilan ChangEGFR-AF SRI LANKAN>60Normal>=60The [facility] HospitalComment on above:Performed By: #### CMP, LIPID ####[facility] [address]utzvibq[address] [place], [place] [address]Dr. Yilan ChangEGFR- NON AF OCPSYNEZ14 mL/min/1.44n2Kqzltbcnoy low>=60The [facility] HospitalComment on above:Performed By: #### CMP, LIPID ####[facility] Rxblxfrgrm[address] [place], [place] [address]Dr. Lorylan ChangGlobulin (S) [Mass/Vol]3.4 g/dL NormalThe [facility] HospitalComment on above:Performed By: #### CMP, LIPID ####[facility] [address]rx[address]sbjv[address] [place], [place] [address]Dr. Yilan ChangGlucose [Mass/Vol]124 mg/dLCritically pwum00-839Hrc [facility] Comment on above:Performed By: #### CMP, LIPID ####[facility] G[address]kbfayrx[address] [place], [place] [address]Dr. Yilan ChangPotassium [Moles/Vol]3.9 mmol/LNormal3.5-5.1The [facility] HospitalComment on above: Performed By: #### CMP, LIPID ####[facility] X[address]emcrqmj[address] [place], [place] [address]Dr. Yilan ChangProtein [Mass/Vol]7.0 g/dLNormal6.4-8.2 The [facility] HospitalComment on above:Performed By: #### CMP, LIPID ####[facility] Zrobslkdtd[address] [place], [place] [address]Dr. Yilan El Sodium [Moles/Vol]146 mmol/LCritically ptax877-787Crm [facility] HospitalComment on above:Performed By: #### CMP, LIPID ####[facility] Anvguddtor[address] [place], [place] [address]Dr. Phani ElUrea nitrogen [Mass/Vol]14.0 mg/dLNormal7.0-18.0The [facility] HospitalComment on above:Performed By: #### CMP, LIPID ####[facility] [address] [place], [place] [address]Dr. Phani ElUrea nitrogen/Creatinine [Mass ratio]13.5 mg/mgNoOhioHealthComment on above:Performed By: #### CMP, LIPID ####[facility] [address] [place], [place] [address]DwCindy El VITAMIN B12on 52-69-5863Uulrdkzby (Vitamin B12) [Mass/Vol]321.0 pg/mLNormal 193.0-986.0The [facility] HospitalCommymichigan medical center alma on above:Performed By: #### VITOMI, VITB12 #### [facility] [address] [address] [address] Phani ElVITAMIN D 25 OHon 71-43-5205CRJ D 25-OH58.7 ng/mLNormalThe [facility] on above:Performed By: #### VITOMI, VITB12 #### [facility] [address] [place] [address] Dr. Phani Marie RANGESSEE [facility] Medical CenterCommymichigan medical center alma on above: Result Comment: <20 ng/mL Vit D deficient 20 - <30 ng/mL Vit D insufficient 30 - 100 ng/mL Vit D sufficient >100 ng/mL Potential ToxicityPerformed By: #### VITAD, VITB12 #### [facility] [address] [place] [address] Dr. Phani ElXR CHEST 2 Von 94-93-5662EN CHEST 2 VEXAM: XR CHEST 2 V HISTORY: Bronchitis COMPARISON: None. TECHNIQUE: PA and lateral views of the chest. FINDINGS: The cardiomediastinal silhouette is normal. No focal consolidation. There is no pneumothorax. No pleural effusion is noted. The osseous structures are intact. IMPRESSION: No focal consolidation. Electronically authenticated by: LORI FROST Date: 2022-05-05 10:05[facility] CenterAmbulatory Visit Summaryon [id number] Visit Summary FRANKY GAGNON I :1965 Visit [...] user Vitamin B12 deficiency Vitamin D deficiency [facility] Surgery Office/Clinic Noteon 56-76-3415Wupigzz Surgery Office/Clinic NoteChief Complaint colonoscopy follow up [...] virus vaccine, inactivated - Not Given Patient RefusesNormalElyria Memorial HospitalComment on above:Result Comment: Electronically Signed By: NABIL AMADOR, Bryson Steinberg\\Date and Time Signed: 03/24/22 13:12 ESTReminderson 11-80-6692Ipbubpwnr From: Kristine Harrison LPN To: N - Clinical; Sent: 03/24/2022 13:05:34 EST Show up: 01/26/2032 07:00:00 EST Subject: colonoscopy recall Due Date/Time: 02/26/2032 07:00:00 EST Reminder/Recall Patient is due for screening colonoscopy 02/26/2032.[facility] CenterCovid-19 PCR (CVDTBH)on 70-77-3485VNJD-CoV-2 (COVID-19) RNA MARISOL+probe Ql (Unsp spec)DetectedAbnormalNOT DETECTEDThe [facility] HospitalComment on above: Result Comment: This test is not yet approved or cleared by the [place] FDA. When there are no FDA-approved or cleared tests available, and other criteria are met, FDA can make tests available under an emergency access mechanism called an Emergency Use Authorization (EUA). The EUA for this test is supported by the [place] of Health and Human Service's (HHS's) declaration [...] longer be used).Performed By: #### CVDTBH #### [facility] [address] [place] [address] Dr. Phani ElINFLUENZA A AND B AGon 24-51-4615ZHNVPCUUWQZEIMercy Health [facility] Hospital on above:Result Comment: Negative for Flu A protein angiten. Infection due to Flu A cannot be ruled out. FluA angiten in the sample may be below the detection limit of the test.Performed By: #### INFLUAB ####[facility] [address] [place] [address]Dr. Phani ChangINFLUBNEGHSEE [facility] on above:Result Comment: Negative for Flu B protein antigen. Infection due to Flu B cannot be ruled out. FluB antigen in the sample may be below the detection limit of the test.Performed By: #### INFLUAB ####[facility] [address] [place] [address]Dr. Phani ElINFLUENZA A AGNegativeNormalNEGATIVE SEE COMMENTThe [facility] on above:Performed By: #### INFLUAB ####[facility] [address] [place], [place] [address]Dr. Phani ChangINFLUENZA B AGNegativeNormalNEGATIVE SEE COMMENTThe [facility] Comment on above:Performed By: #### INFLUAB ####[facility] [address] [place], [place] [address]Dr. Phani ElCovid-19 PCR ([facility])on 76-70-1925NHDS-CoV-2 (COVID-19) RNA MARISOL+probe Ql (Unsp spec)DetectedAbnormalNOT DETECTEDThe [...] for this test is supported by the [place] of Health and Human Service's declaration that [...] longer be used).Performed By: #### CVDTBH #### [facility] [address] [place] [address] Dr. Phani ElPathology Noteon 75-50-9134Kcckufiww Note [id number]:127NormMercy Health Perrysburg HospitalOutside Colonoscopyon 34-85-0651Fnmxzed Colonoscopy [id number]#1.00CD:127NormMercy Health Perrysburg HospitalReminderson 28-12-5316Nvefngxnf From: Kristine Harrison LPN To: Kristine Harrison LPN; Sent: 02/26/2022 11:14:25 EST Show up: 05/18/2022 07:00:00 EDT Subject: Ambulatory Reminder Due Date/Time: 05/27/2022 07:00:00 EDT Reminder/Recall log in to extra lap top in [place] to keep account activeNormMercy Health Perrysburg HospitalLab Reportson 53-98-6137Msg Reports [id number]#1.00CD:127[facility] CenterCovid-19 PCR ([facility]VDNOR[facility])on 18-45-0786EPFM-CoV-2 (COVID-19) RNA MARISOL+probe Ql (Unsp spec)Not detectedNormalNOT DETECTEDThe [facility] HospitalComment on above: Result Comment: This test is not yet approved or cleared by the [place] FDA. When there are no FDA-approved or cleared tests available, and other criteria are met, FDA can make tests available under an emergency access mechanism called an Emergency Use Authorization (EUA). The EUA for this test is supported by the [place] of Health and Human Service's (HHS's) declaration [...] symptoms consistent with SARS-CoV-2.Performed By: #### CVDTBH ####[facility] [address] [place], [place] [address]Oo. Phani ChangPre- Certification Formon 70-78-7948Eqd-Certification Form [id number]#1.00CD:[address] [place], [place] [address]Consent for Procedure/Surgeryon 86-61-1893Nnuxgfm for Procedure/Surgery [id number]#1.00CD:[address] [place], [place] [address]Formson [id number]#1.00CD:[address] [place], [place] [address]Physician Referralon 93-05-0581Fzwaylqlv [id number]#1.00CD:[address] [place], [place] [address]MRI Knee w/o Lefton 93-65-8253TKK Knee w/o LeftHISTORY: Continued left-sided knee pain. [...] signed by Jason Sanchez on 12/25/2021 1505NormalNorthern Fort [facility], [place], [facility] by [facility] HealthI LSPINE WO CONon 69-89-3174DCF [facility] WO CON EXAMINATION: MRI LSPINE WO CON [...] Electronically authenticated by: NADINE GUERRA Date: 2021-12-04 17:54[facility] Medical CenterXR LSPINE 2_3 VIEWSon 89-35-9496FN LSPINE 2_3 VIEWSEXAMINATION: XR LSPINE 2_3 VIEWS HISTORY: Low back pain COMPARISON: 05/26/2016 FINDINGS: BONES: Normal alignment with no acute fracture or spondylolisthesis. Mild degenerative spondylosis and facet osteoarthropathy DISC SPACES: Mild multilevel disc space narrowing most significant at L5-S1 PARASPINOUS: Negative. No paraspinous abnormality is seen. OTHER: Negative. IMPRESSION: Mild degenerative changes Electronically authenticated by: NADINE GUERRA Date: 2021-09-30 07:20[facility] Medical CenterMRI Knee w/o Lefton 88-24-6229YVJ Knee w/o LeftHISTORY: Knee pain and instability. [...] and signed by Robby Diaz on 07/30/2021 1316NormalNoformerly [facility], [facility] [place] [employer] Vital Signs Date TimeVital SignValuePerforming VqmsxmhnrMzpwtunt92-83-1167 11:25-0400Body yrcbpt568.1 Melvi Phoenix WEDDING DESIGNER-C Work Phone: [facility]09-23-2025 11:25-0400 Body mass index (BMI) [Ratio]41.8 kg/m2Jaymie Phoenix WEDDING DESIGNER-C Work Phone: [facility]09-23-2025 11:25-0400 Body nmyaaxelkis34.5 [degF]Jaymie Phoenix WEDDING DESIGNER-C Work Phone: [facility]09-23-2025 11:25-0400 Body pgvyer650.07 kgJaymie Phoenix WEDDING DESIGNER-C Work Phone: [facility]09-23-2025 11:25-0400 Diastolic blood rqtutvxp09 mm[Hg]Jaymie Phoenix WEDDING DESIGNER-C Work Phone: [facility]09-23-2025 11:25-0400 Heart rate87 /minLisa Maddyhholz WEDDING DESIGNER-C Work Phone: [facility]09-23-2025 11:25-0400 Respiratory rate22 /minLisa Maddyhholz WEDDING DESIGNER-C Work Phone: [facility]09-23-2025 11:25-0400 SaO2% (BldA) [Mass fraction]92 %Jaymie Francoisz WEDDING DESIGNER-C Work Phone: [facility]09-23-2025 11:25-0400 Systolic blood mzxoawtf639 mm[Hg]Jaymie Francoisz WEDDING DESIGNER-C Work Phone: [facility]07-24-2025 13:00-0400 Body mass index (BMI) [Ratio]40.77 kg/m2Lfbzbp Beatriz DO Work Phone: [facility] SystemsZaykfanqdm74-68-0781 13:00-0400Body .13 kgLeanne Beatriz DO Work Phone: [facility] SystemsHkzzbnldvs36-10-9115 13:00-0400Diastolic blood bpdottwe13 mm[Hg]Nat Beatriz DO Work Phone: [facility] SystemsFzxhgtgtnn11-56-6537 13:00-0400Heart rate86 /min Nat Beatriz DO Work Phone: [facility] SystemsTwqkskhcav93-88-7465 13:00-0952YtU2% (BldA) [Mass fraction]94 %Nat Beatriz DO Work Phone: [facility] SystemsEhlyhoizff74-61-9775 13:00-0400Systolic blood mwfgkyhu090 mm[Hg]Nat Beatriz DO Work Phone: [facility] SystemsRkqlazoask56-75-8070 10:09-0400Body mass index (BMI) [Ratio]40.9 kg/m2Lisa Maddyhholz WEDDING DESIGNER Work Phone: noH[facility] HospitalUggroyklxf32-32-8005 10:09-0400Body temperature 98.1 [degF]Jaymie Phoenix WEDDING DESIGNER Work Phone: [facility] SystemsKlryqnansh79-39-7751 10:09-0400Body ixzubg948.49 kgJaymie Phoenix WEDDING DESIGNER Work Phone: [facility] SystemsUqbtdrirew77-57-7567 10:09-0400Diastolic blood ecnrjewq81 mm[Hg]Jaymie Phoenix WEDDING DESIGNER Work Phone: [facility] SystemsPcwjjqothe24-41-2958 10:09-0400Heart rate80 /min Jaymie Phoenix WEDDING DESIGNER Work Phone: [facility] SystemsLtfxbrgcif64-54-7939 10:09-0400Respiratory rate24 /minJaymie Phoenix WEDDING DESIGNER Work Phone: [facility] SystemsUbhubjgvje54-30-2814 10:09-1765GiQ9% (BldA) [Mass fraction]92 %Jaymie Phoenix WEDDING DESIGNER Work Phone: [facility] SystemsNaumbuadwu46-17-2800 10:09-0400Systolic blood peqwxxqo268 mm[Hg]Jaymie Phoenix WEDDING DESIGNER Work Phone: [facility] SystemsXyycbjnwfg14-97-1845 14:53-0500Body mass index (BMI) [Ratio]40.7 kg/t2Mujnpifnokf Wong DO Work Phone: [facility] SystemsBtqyitjery62-70-6960 14:53-0500Body foovlu356.95 kgChristopher Wong DO Work Phone: noH[facility] HospitalFmggswhgxh22-05-8314 14:53-0500Diastolic blood mm[Hg]Christopher Wong DO Work Phone: noH[facility] HospitalTepkzhivdq06-50-6744 14:53-0500Heart rate76 /min Christopher Wong DO Work Phone: noH[facility] HospitalHufrqzlocw85-09-1876 14:53-1801ZvO5% (BldA) [Mass fraction]94 %Saumya Back DO Work Phone: noH[facility] HospitalJqjhnqksdr69-13-2047 14:53-0500Systolic blood ghqqhyrn344 mm[Hg]Saumya Back DO Work Phone: noH[facility] HospitalGjsvfsgjhw68-18-8603 13:31-0500Body ugxxpj900.1 Devinisa Alessandroz WEDDING DESIGNER Work Phone: [facility] SystemsVicxdovojz68-26-0211 13:31-0500Body mass index (BMI) [Ratio]40.94 kg/m2Lisa Ducholz WEDDING DESIGNER Work Phone: [facility] SystemsNehqowvkaz19-77-0499 13:31-0500Body temperature 98.1 [degF]Jaymie Alessandroz WEDDING DESIGNER Work Phone: [facility] SystemsGeosgtezon17-78-3875 13:31-0500Body .58 kgLisa Alessandroz WEDDING DESIGNER Work Phone: [facility] SystemsKzpqcjcxtr39-73-2091 13:31-0500Diastolic blood oyurmlgg65 mm[Hg]Jaymie Ducholz WEDDING DESIGNER Work Phone: [facility] SystemsMnnanfvswr83-96-0438 13:31-0500Heart rate87 /min Jaymie Ducholz WEDDING DESIGNER Work Phone: [facility] SystemsKtsmbvtqek03-92-0317 13:31-0500Respiratory rate18 /minLisa Francoisz WEDDING DESIGNER Work Phone: [facility] SystemsAqfrxmiffi88-69-9239 13:31-8164YwE2% (BldA) [Mass fraction]94 %Jaymie Ducholz WEDDING DESIGNER Work Phone: [facility] SystemsYsofslbopt31-36-8955 13:31-0500Systolic blood bvrpzkgo204 mm[Hg]Jaymie Ducholz WEDDING DESIGNER Work Phone: [facility] SystemsSepebdlbhy70-37-5730 10:30-0500Body izqqxm847.1 Devinisa Ducholz WEDDING DESIGNER Work Phone: [facility] SystemsDcykflpabb65-70-8667 10:30-0500Body mass index (BMI) [Ratio]40.6 kg/m2Lisa Maddyhholz WEDDING DESIGNER Work Phone: [place] [address]Xlqyhfixxu67-91-4090 10:30-0500Body temperature 98.1 [degF]Jaymie Maddyhholz WEDDING DESIGNER Work Phone: [place] [address]Qfmetsgywd65-45-4771 10:30-0500Body arblbm517.68 kgLisa Aichholz WEDDING DESIGNER Work Phone: 1(345)058-[address] [place], [place] [address]Rrxrkannvc91-51-3626 10:30-0500Diastolic blood dpaqiiiy85 mm[Hg]Jaymie Aichholz WEDDING DESIGNER Work Phone: 1(427)857-[address] [place] [address]-25-2024 10:30-0500Heart rate89 /min Jaymie Maddyhholz WEDDING DESIGNER Work Phone: [place] [address]Aqjevwskdz89-37-7157 10:30-0500Respiratory rate19 /minLisa Maddyhholz WEDDING DESIGNER Work Phone: 1(063)3-[address] [place] [address]-25-2024 10:30-0581FeP8% (BldA) [Mass fraction]91 %Jaymie Maddyhholz WEDDING DESIGNER Work Phone: [place] [address]Synpvgntxa64-36-1708 10:30-0500Systolic blood mimurexb076 mm[Hg]Jaymie Maddyhholz WEDDING DESIGNER Work Phone: [facility] SystemsXdebixidmn85-62-9396 13:13-0500Body .1 cmLisa Aichholz WEDDING DESIGNER Work Phone: 1(439)722-[address] [place], [place] [address]Nawlpsktjq25-04-9900 13:13-0500Body mass index (BMI) [Ratio]42.9 kg/m2Lisa Aichholz WEDDING DESIGNER Work Phone: 1(566)432-[address] [place], [place] [address]Hegysptmbz96-89-9754 13:13-0500Body temperature 97.5 [degF]Jaymie Maddyhholz WEDDING DESIGNER Work Phone: 1(707)842-[address] [place], [place] [address]Qitampiiym04-28-4053 13:13-0500Body qzleus825.94 kgLisa Aichholz WEDDING DESIGNER Work Phone: [facility] SystemsAfwdeqclmr13-77-1779 13:13-0500Diastolic blood gmdehlcm85 mm[Hg]Jaymie Alessandroz WEDDING DESIGNER Work Phone: [facility] SystemsZcxbmzeduo46-27-2151 13:13-0500Heart rate71 /min Jaymie Maddyhholz WEDDING DESIGNER Work Phone: [facility] SystemsCuwufdnzxw71-21-2309 13:13-0500Respiratory rate20 /minLisa Ducholz WEDDING DESIGNER Work Phone: [facility] SystemsDfhqyivevj57-63-3445 13:13-8876EsG9% (BldA) [Mass fraction]95 %Jaymie Ducholz WEDDING DESIGNER Work Phone: [facility] SystemsTfqropktgp77-09-6981 13:13-0500Systolic blood hscvobth545 mm[Hg]Jaymie Ducholz WEDDING DESIGNER Work Phone: [facility] SystemsEzdsvxorfr72-70-8665 13:35-0500Body .1 cmLisa Ducholz WEDDING DESIGNER Work Phone: [facility] SystemsHpumwfbnjk68-91-4294 13:35-0500Body mass index (BMI) [Ratio]41.6 kg/m2Lisa Ducholz WEDDING DESIGNER Work Phone: [facility] SystemsFzrydvnyse94-78-7954 13:35-0500Body temperature 98.4 [degF]Jaymie Ducholz WEDDING DESIGNER Work Phone: [facility] SystemsRqfldfmtek78-24-8893 13:35-0500Body irwpho987.4 kgLisa Maddyhholz WEDDING DESIGNER Work Phone: [facility] SystemsAnljbzshsc46-40-3017 13:35-0500Diastolic blood usiuhpqg52 mm[Hg]Jaymie Ducholz WEDDING DESIGNER Work Phone: [facility] SystemsVsgaahcurr87-91-9845 13:35-0500Heart rate77 /min Jaymie Maddyhholz WEDDING DESIGNER Work Phone: [facility] SystemsZoiyytqnly10-19-5849 13:35-0500Respiratory rate18 /minLisa Aichholz WEDDING DESIGNER Work Phone: NOHermann [facility] HospitalHzknbfukmb60-37-4478 13:35-3556PgX9% (BldA) [Mass fraction]95 %Jaymie Alban WEDDING DESIGNER Work Phone: NOH[facility] District HospitalNblhinxokm37-68-1949 13:35-0500Systolic blood vmifywnn782 mm[Hg]Jaymie Alban WEDDING DESIGNER Work Phone: [facility] SystemsAxsuqrhecz70-91-3118 13:27-0500Blood Pressure LocationMichael NILL General Surgery Mceurhok17-67-3664 13:27-0500Diastolic blood borpxjgl44 mm[Hg]Bryson NILL General Surgery Vdbbgtnk06-45-2349 13:27-0500Heart rate 72 /minMichael NILL General Surgery Rfzimasj76-60-2819 13:27-0500 Respiratory rate16 /minMichael NILL General Surgery Gxbmsepe54-29-8807 13:27-0500Systolic blood egtxnxaf151 mm[Hg]Bryson [facility]ILL [facility] [place] Encounters Encounter DateEncounter TypeCare ProviderFacilityStart: 11-20-2024 End: 95-20-9029rlhplqazyjGwajosx Vamarjitas Giedraitis MDFacility:PM [place] Start: 10-31-2024 End: 12-70-2991ddjfnwcgdlKjoo J Aichholz WEDDING DESIGNER-C Work Phone: [facility] Work Phone: Start: 10-31-2024 End: 19-08-3257Fodtptt encounter procedureJaymie Phoenix WEDDING DESIGNER-C-[facility] Work Phone: Start: 58-02-5105Gwqhmcu encounter procedureJaymie Phoenix WEDDING DESIGNER-C [facility]: 43-48-8660Yia- patient / Non-visitLisa Lolis Phoenix NP-[facility] Work Phone: Start: 09-29-2024 End: 38-95-9679BwjepjVyhf Aichholz WEDDING DESIGNER Work Phone: noms CWM FMComment on above:Gastro-esophageal reflux disease without esophagitis; Mixed hyperlipidemia ; Fibromyalgia; Localized edemaStart: 09-19-2024 End: 29-18-7259Anphdaxns Result EncounterGeneric External Data ProviderNOMS External Department UnsolicitedStart: 09-19-2024 End: 94-07-4785Nqitgosjc Result EncounterGeneric External Data ProviderNOMS External Department UnsolicitedStart: 08-31-2024 End: 03-20-7726Mvxfmo Rafaela Henderson DO Work Phone: noms PULMStart: 08-31-2024 End: 52-27-2019Bytdsu Rafaela Henderson DO Work Phone: noms PULMStart: 08-31-2024 End: 44-52-5181jzbkmfoollIXGSHO K STRACKNot AvailableStart: 08-31-2024 End: 33-70-9180Dazusl outpatient new 45 minutesNat Henderson DO Work Phone: noms PULMComment on above:WINSOME (obstructive sleep apnea) (Primary Dx); Cigarette smokerStart: 75-82-3289Hwomhrabik Earl HADLEY CredibleStart: 08-29-2024 End: 51-72-7483jhorrbecuvOhtnwkafmnh AbdelazizFacility:[facility] HospitalComment on above:Acute back pain with sciatica, unspecified laterality (Primary Dx)Start: 08-28-2024 End: 88-96-1190Sxofjv OnlyJaymie Phoenix WEDDING DESIGNER Work Phone: noms CWM FMComment on above:Acute back pain with sciatica, unspecified laterality (Primary Dx)Start: 08-05-2024 End: 45-85-2579KhivdcRsiy Aichholz WEDDING DESIGNER Work Phone: [facility] CWM FMComment on above:Tobacco dependenceStart: 07-31-2024 End: 70-66-6092Kyqjqbc encounter procedureLisa Aichholz WEDDING DESIGNER Work Phone: [facility] CWM FMComment on above:Encounter for subsequent annual wellness visit (AWV) in Medicare patient (Primary Dx); Chronic kidney disease, stage 3a ([facility]-HCC); WINSOME (obstructive sleep apnea); COPD mixed type ([facility]); Gastroesophageal reflux disease, unspecified whether esophagitis present; Bilateral lower extremity edema; Anxiety and depression ; Tobacco dependence; Mixed hyperlipidemia ; Fibromyalgia; Environmental and seasonal allergies; Gastro-esophageal reflux disease without esophagitis; Personal history of other diseases of the nervous system and sense organs; Screening for lung cancerStart: 07-31-2024 End: 81-20-1436ejydbqurvnCRDF AICHHOLZNot AvailableStart: 07-05-2024 End: 44-17-1193HxpefwOdlp Aichholz WEDDING DESIGNER Work Phone: [facility] CWM FMComment on above:FibromyalgiaStart: 06-26-2024 End: 86-07-2748YeqvwpVbbm Aichholz WEDDING DESIGNER Work Phone: [facility] CWM FMComment on above:Tobacco dependence (Primary Dx)Start: 06-14-2024 End: 77-44-4965WzycpqKuuu Aichholz WEDDING DESIGNER Work Phone: [facility] CWM FMComment on above:Mixed hyperlipidemia ([facility]/HCC)Start: 05-09-2024 End: 43-93-0426YlmfwfFlql Aichholz WEDDING DESIGNER Work Phone: [facility] CWM FMComment on above:FibromyalgiaStart: 04-19-2024 End: 25-96-0044KxcplmHkbf Aichholz WEDDING DESIGNER Work Phone: [facility] CWM FMComment on above:Environmental and seasonal allergies (Primary Dx); COPD mixed type (CMS/HCC)Start: 04-08-2024 End: 69-07-6397CqahumBnli Aichholz WEDDING DESIGNER Work Phone: noMS CWM FMComment on above:Fibromyalgia; Localized edema; Mixed hyperlipidemia (CMS/HCC)Start: 03-14-2024 End: 17-85-9961Pzmkqo outpatient new 30 minutesChristopher Wong DO Work Phone: aNA BELLEVUEComment on above:Drug-induced Parkinson's disease (CMS/HCC) (Primary Dx); TremorStart: 03-14-2024 End: 25-58-4644cwiglqhadqZIEWSDITZGQ HASSETTNot AvailableStart: 03-14-2024 End: 33-20-5160Pbbsje flowsheetChristopher Wong DO Work Phone: ana BELLEVUEStart: 03-14-2024 End: 16-19-7707Ohxscz flowsheetChristopher Wong DO Work Phone: aNA BELLEVUEStart: 02-10-2024 End: 36-67-0883Isbubc flowsheetLisa Aichholz WEDDING DESIGNER Work Phone: noms CWM FMStart: 02-10-2024 End: 33-40-3516Qcqxvl flowsheetLisa Aichholz WEDDING DESIGNER Work Phone: noMS CWM FMStart: 02-10-2024 End: 67-17-6583fpulbkkbcgRPPO AICHHOLZNot AvailableStart: 02-10-2024 End: 39-65-5659Kbpuho outpatient visit 25 minutesLisa Aichholz WEDDING DESIGNER Work Phone: [facility] CWM FMComment on above:COPD with acute exacerbation (CMS/HCC) (Primary Dx); Morbid (severe) obesity due to excess calories (CMS/HCC); Body mass index (BMI) 40.0-44.9, adult (CMS/HCC); WINSOME (obstructive sleep apnea); COPD mixed type (CMS/HCC); Gastroesophageal reflux disease, unspecified whether esophagitis present; Tobacco dependence; Gastro-esophageal reflux disease without esophagitis; TremorStart: 02-03-2024 End: 23-93-9875XljhtrAdov Aichholz WEDDING DESIGNER Work Phone: noms CWM FMComment on above:FibromyalgiaStart: 01-27-2024 End: 69-48-8724Ibtsasqyx Result EncounterLisa Aichholz WEDDING DESIGNER Work Phone: noms External Department UnsolicitedStart: 01-27-2024 End: 70-22-7249Dioortdjn Result EncounterLisa Aichholz WEDDING DESIGNER Work Phone: noms External Department UnsolicitedStart: 01-24-2024 End: 16-48-8857Gmmsuxxyd Result EncounterLisa Aichholz WEDDING DESIGNER Work Phone: noms External Department UnsolicitedStart: 01-24-2024 End: 13-40-9941Tylatezqo Result EncounterLisa Aichholz WEDDING DESIGNER Work Phone: noms External Department UnsolicitedStart: 01-03-2024 End: 97-54-9454Smyndj flowsheetLisa Aichholz WEDDING DESIGNER Work Phone: noms CWM FMStart: 01-03-2024 End: 88-90-3578Fahpnp flowsheetLisa Aichholz WEDDING DESIGNER Work Phone: noms CWM FMStart: 01-03-2024 End: 27-89-2608Srrhat outpatient visit 25 minutesLisa Aichholz WEDDING DESIGNER Work Phone: noms CWM FMComment on above:WINSOME (obstructive sleep apnea) (Primary Dx); COPD mixed type (CMS/[facility]); Primary hypertension (CMS/HCC); Fibromyalgia; BMI 40.0-44.9, adult ([facility]); Tobacco dependence; Mixed hyperlipidemia (CMS/HCC); Vitamin D deficiency; Vitamin B12 deficiency; COPD with acute exacerbation ([facility])Start: 01-03-2024 End: 18-06-3776baqymimilaNDXC AICHHOLZNot AvailableStart: 12-31-2023 End: 70-06-1991FyeeldDzsw Aichholz WEDDING DESIGNER Work Phone: noms CWM FMStart: 12-30-2023 End: 49-84-9800YnnsieTzme Aichholz WEDDING DESIGNER Work Phone: noms CWM FMComment on above:FibromyalgiaStart: 12-25-2023 End: 20-04-3859Dblbikloq Result EncounterGeneric External Data ProviderNOMS External Department UnsolicitedStart: 12-25-2023 End: 93-91-8670Pjvsvnjvy Result EncounterGeneric External Data ProviderNOMS External Department UnsolicitedStart: 12-24-2023 End: 89-58-3516Mzwygcgat Result EncounterGeneric External Data ProviderNOMS External Department UnsolicitedStart: 12-24-2023 End: 06-51-8025Nbnkqmpme Result EncounterGeneric External Data ProviderNOMS External Department UnsolicitedStart: 11-24-2023 End: 68-88-4989IabrigDzds Aichholz WEDDING DESIGNER Work Phone: noms CWM FMComment on above:Mixed hyperlipidemia (CMS/HCC)Start: 10-26-2023 End: 40-30-1011TxreauSaiy Aichholz WEDDING DESIGNER Work Phone: noms CWM FMComment on above:Fibromyalgia; Gastro-esophageal reflux disease without esophagitisStart: 96-65-0100Iwxuain encounter procedureLisa Aichholz WEDDING DESIGNER Work Phone: noms HealthcareStart: 05-31-2023 End: 58-78-3652Eqsbfqtwv Result EncounterLisa Aichholz [employer] Work Phone: [facility] External Department UnsolicitedStart: 05-31-2023 End: 19-85-5325Efmxumero Result EncounterLisa Aichholz [employer] Work Phone: [facility] External Department UnsolicitedStart: 05-05-2023 End: 67-32-7800Kiscurhiw Result EncounterLisa Aichholz [employer] Work Phone: [facility] External Department UnsolicitedStart: 05-05-2023 End: 12-71-7882Uonrdinev Result EncounterLisa Ducholz [employer] Work Phone: [facility] External Department UnsolicitedStart: 05-03-2023 End: 40-51-8744Itjcxmxkx Result EncounterLisa Ducholz [employer] Work Phone: [facility] External Department UnsolicitedStart: 05-03-2023 End: 36-02-7497Uocyrfxbu Result EncounterLisa Ducholz WEDDING DESIGNER Work Phone: noms External Department UnsolicitedStart: 04-22-2023 End: 75-09-4859Ppgwvkneo Result EncounterGeneric External Data ProviderNOMS External Department UnsolicitedStart: 04-22-2023 End: 52-99-0535Yapbzpxvh Result EncounterGeneric External Data ProviderNOMS External Department UnsolicitedStart: 71-14-1768Eteera flowsheetLisa Maddyhholz WEDDING DESIGNER Work Phone: noms CWM FMStart: 03-25-2023 End: 74-97-5417Peqydq flowsheetLisa Castañedahholz WEDDING DESIGNER Work Phone: noms CWM FMStart: 03-25-2023 End: 02-69-0127Mthdeuxag Result EncounterLisa Ducholz WEDDING DESIGNER Work Phone: noms External Department UnsolicitedStart: 03-25-2023 End: 17-60-1562Bqpfrt outpatient visit 25 minutesLisa Maddyhholz WEDDING DESIGNER Work Phone: noms CWM FMComment on above:Edema of right lower extremity (Primary Dx); BMI 40.0-44.9, adult (CMS/HCC); Shortness of breath; COPD mixed type (CMS/HCC); Primary hypertension (CMS/HCC); Bilateral lower extremity edemaStart: 03-24-2023 End: 75-55-0766Xchyzraga Result EncounterGeneric External Data ProviderNOMS External Department UnsolicitedStart: 03-24-2023 End: 51-81-2348Pfuqexnyw Result EncounterGeneric External Data ProviderNOOK External Department UnsolicitedStart: 03-16-2023 End: 69-33-6001Kevlyh outpatient visit 25 minutesJaymie Phoenix WEDDING DESIGNER Work Phone: NOXZ CWM FMComment on above:COPD mixed type (CMS/HCC) (Primary Dx); Tobacco dependence; BMI 40.0-44.9, adult (CMS/HCC); Body mass index [BMI] 40.0-44.9, adult (Z68.41); Primary hypertension (CMS/HCC); Bilateral lower extremity edemaStart: 00-82-4880yznkfijiqiREX JAYMIE ALBAN Facility:N3Sfnml: 05-29-2022 End: 93-44-7398csjsuqxonuTKI JAYMIE ALBANFacility:B5Wqddd: 05-05-2022 End: 53-01-8134cxhrjjdcjhUHW JAYMIE ALBANFacility:H8Pcsmn: 04-30-2022 End: 54-51-8841nqgfjefwgmGQ JIM S ALLAN .Facility:U7Xvowa: 03-31-2022 End: 18-74-1973fgvepnypdoCA JIM S ALLAN .Facility:A6Oflhh: 03-27-2022 ambulatoryDR JIM S ALLAN .Facility:C0Sawnb: 03-24-2022 End: 11-99-3857jcfcowckgoQeqyugd R NILLFacility:[facility]: 03-17-2022 ambulatoryMichael R NILLFacility:[facility]: 03-10-2022 End: 62-83-8943pjnzzmomytANE JAYMIE ALBANFacility:N4Gtenv: 57-26-9345Pmmzsfxtt for preprocedural laboratory examinationDR JIM S ALLAN .[facility] Start: 02-28-2022 End: 93-33-2928Jiiuzlgwv for preprocedural laboratory examinationCNP JAYMIE ALBANFacility:O1Qwwgf: 02-28-2022 End: 98-18-5047zqrjcgivqxSUN JAYMIE ALBANFacility:U6Uaohi: 02-25-2022 End: 21-28-9360hkyjdiyinaYmautwv R NILLFacility:CD:[id number]: 02-21-2022 End: 88-96-8611innaimtcupGM BRYSON NILPiper .Facility:C1Wprxi: 02-06-2022 End: 26-97-8707lwetybhepkOETT MATI .Facility:W8Hlkrg: 02-03-2022 End: 13-80-0428zmxcjbdcgbMmmf Piper PhoenixFacility: BellevueStart: 02-03-2022 End: 48-63-7278Joasoka encounter procedureMichael R NILL General Surgery Nill/Said [place] Start: 01-13-2022 End: 93-74-6986imotuzcogbVK JIM S ALLAN .Facility:J3Vfsne: 01-08-2022 End: 57-39-7068nkmwqjqbdtEP JIM S ALLAN .Facility:W0Nzzha: 01-06-2022 ambulatoryMichael R NILLFacility: BellevueStart: 12-23-2021 End: 78-05-3803ybsmgorwkwFD JIM S ALLAN .Facility:F7Evttw: 12-09-2021 End: 37-96-7877wihpxppvjhFO JIM S ALLAN .Facility:O3Fnadn: 12-04-2021 End: 21-23-9098gtvmvoodjbPRO JAYMIE Aguilarcility:V5Rojuk: 12-03-2021 End: 98-35-0915llzhrfosacNIDSLA RODRIGUEZ .Facility:O8Ewcvz: 10-10-2021 End: 23-62-8841wwkyvilvriPY DEEMTRIUS MENDEZ .Facility:I0Imbtr: 09-29-2021 End: 73-30-2720lifmrxijzlXVQ JAYMIE Aguilarcility:Q7Qackl: 09-20-2021 End: 27-15-9555diguwulwjvSPRFSA RODRIGUEZ .Facility: Procedures DateProcedureProcedure DetailPerforming ClinicianStart: 34-69-7605PL LUMBAR SPINE 6V W BENDINGGeneric External Data ProviderStart: 22-86-7603XjpshdvpxncCqlg Alban WEDDING DESIGNER Work Phone: Start: 27-15-5101BJC MICROALB CREAT RATIO RANDOMLisa Alessandroz WEDDING DESIGNER Work Phone: Start: 35-08-1191SQE BASIC METABOLIC PANELLisa Alban WEDDING DESIGNER Work Phone: Start: 55-01-7181YFW LIPID PROFILE (FASTING)Jaymie Phoenix WEDDING DESIGNER Work Phone: Start: 36-67-4919AFNAA CULTURE 2Generic External Data ProviderStart: 61-64-5995QDVOX CULTURE 1Generic External Data ProviderStart: 56-59-8184VASPL CULTURE 2Generic External Data ProviderStart: 01-87-5116HXBRV CULTURE 1Generic External Data ProviderStart: 94-86-0881YO LUNG SCREENING LOW DOSELisa Alban WEDDING DESIGNER Work Phone: Start: 06-45-2600JBH BASIC METABOLIC PANELLisa Alban WEDDING DESIGNER Work Phone: Start: 81-08-7314DA ECHO DOPPLER COMPLETELisa Alban WEDDING DESIGNER Work Phone: Start: 47-93-9342PD ABDOMEN PELVIS W CONLisa Phoenix WEDDING DESIGNER Work Phone: Start: 12-52-7509ON FACILITY EST COMPREHENSIVEGeneric External Data ProviderStart: 96-71-7766UW EXT VENOUS REFLUX SABRINA LMTDGeneric External Data ProviderStart: 87-98-4697Pxi-scan xtr veins unilateral/limited studyLisa Alban WEDDING DESIGNER Work Phone: Start: 47-94-3701IRH CBC WITH AUTO DIFFLisa Alessandroz WEDDING DESIGNER Work Phone: Start: 42-58-4929YGN CMP (CMP) (FOR REMOTE [facility] USE) Jaymie Phoenix WEDDING DESIGNER Work Phone: Start: 09-87-0214YVJ D-DIMERLisa Alban WEDDING DESIGNER Work Phone: Start: 80-53-7066IK CHEST 2VLisa Alban WEDDING DESIGNER Work Phone: Start: 31-70-9499AvwrjdjqaksCwug Alban WEDDING DESIGNER Work Phone: Start: 06-84-7673TSFFOLBYO BLOOD PRESSUREGeneric External Data ProviderStart: 38-55-0538VzfttfkaugoHoqh Alban WEDDING DESIGNER Work Phone: Cesarean sectionMichael NILL Ligation of fallopian tubeMichael NILL Repair of meniscusMichael NILL Total abdominal hysterectomy with bilateral salpingo-oophorectomyMichael NILL Plan of Treatment DateCare ActivityDetailAuthorStart: 01-42-1255Socngxonv for malignant neoplasm of colonNOMS HealthcareStart: 08-02-2025 End: 64-75-1669Cbtldcg encounter /25/2026 10:30 AM EDT Office Visit [facility] [address] [place] [phone] Jaymie Phoenix NP [address] [place] [address] NOMS CWM FMStart: 06-23-2026Medicare Annual Wellness (AWV) Medicare Annual Wellness (AWV)NOMS HealthcareStart: 64-56-9824Zurureauu for malignant neoplasm of breastMammogramNOMS HealthcareStart: 48-70-5031Gngldgcby for malignant neoplasm of colonFIT-DNANOMS HealthcareStart: 12-07-2024 End: 06-00-4132Fxflmdi encounter procedureNOMS SH PULMStart: 15-51-2941FKXNI-19 Vaccine ( season)COVID-19 Vaccine ( season)[facility] Start: 11-20-0532Kuipsbmvq vaccinationTOOELE VALLEY [facility]ITAL HealthcareStart: 09-27-2024 End: 73-02-0442Cpzdqin encounter rawofwoui63/20/2025 8:40 AM EDT Office Visit [facility] FM [address] [place] [address] Jaymie Phoenix, WEDDING DESIGNER [address] [place] [address] [facility] FMStart: 08-31-2024 End: 24-46-9734Meqwnwp encounter eonenphoq47/24/2025 1:00 PM EDT Consult [facility] PUL [address] [place] [address] Nat Henderson DO [address] [place] [address] NOMS PULMStart: 07-31-2024 End: 70-69-7762MH Chest for screening WO contrastCT lung screening low dose Imaging Routine Tobacco dependence Expected: 07/31/2024, Expires: 07/31/2025[facility] Work Phone: Comment on above:Expected: 07/31/2024, Expires: 07/31/2025Start: 07-31-2024 End: 45-20-7015Udabypi encounter ylvokthcu21/23/2025 10:30 AM EDT Office Visit [facility] [address] [place] [address] Jaymie Phoenix, WEDDING DESIGNER [address] [place] [phone] [facility] FMStart: 92-83-7008Pjcyzqdeb vaccinationInfluenza Vaccine (#1)NOMS HealthcareComment on above:Postponed from 10/10/2023 (Patient Refused)Start: 06-05-2024 End: 24-89-8547Smzzcdy encounter nsmrkxmik91/28/2025 3:40 PM EDT Office Visit [facility] [place] [address] [place] [phone] Sherice Tristan NP [address] [place] [phone] [facility] LYNNtart: 04-25-2025Medicare Annual Wellness (AWV)Medicare Annual Wellness (AWV)NOMS HealthcareStart: 05-10-2024 End: 10-85-9718Sbwjgyt encounter mnrfwmtyl41/02/2025 2:00 PM EDT Office Visit [facility] [address] [place] [address] Jaymie Phoenix, NILE [address] [place] [address] NOMS CWM FMStart: 14-62-7769Bdremlwfv vaccinationInfluenza Vaccine (#1)NOMS HealthcareComment on above:Postponed from 10/10/2023 (Patient Refused)Start: 77-26-0200Htqaztdvj for malignant neoplasm of breastMammogramNOMS HealthcareStart: 03-14-2024 End: 65-93-6629Vezmqtf encounter oadxsnszi83/04/2025 3:00 PM EST Office Visit [facility] [address] [place] [phone] Saumya Back DO [address] [place], [place] [phone] TremorMAGDA SAEEDUEComment on above:TremorStart: 01-26-2024 End: 84-81-1326Rddmzqk encounter zeibfimer13/18/2024 10:30 AM EST Office Visit [facility] [address] [place] [address] Jaymie Phoenix, NILE [address] [place] [address] NOMS CWM FMStart: 01-03-2024 End: 415897-picqkcnzwytywk D3 [Mass/volume] in Serum or PlasmaVitamin D 25 hydroxy Lab Routine Vitamin D deficiency Expected: 01/03/2024 (Approximate), Expires: 01/02/2025OK HealthcareComment on above:Expected: 01/03/2024 (Approximate), Expires: 01/02/2025Start: 01-03-2024 End: 85-94-5736Wjzzl metabolic 1998 panel - Serum or PlasmaBasic metabolic panel Lab Routine Primary hypertension (CMS/HCC) Expected: 01/03/2024 (Approximate), Expires: 01/02/2025[facility] HealthcareComment on above:Expected: 01/03/2024 (Approximate), Expires: 01/02/2025Start: 01-03-2024 End: 28-32-4068Aayejogyi (Vitamin B12) [Mass/volume] in Serum or PlasmaVitamin B12 Lab Routine Vitamin B12 deficiency Expected: 01/03/2024 (Approximate), Expires: 01/02/2025[facility] HealthcareComment on above:Expected: 01/03/2024 (Approximate), Expires: 01/02/2025Start: 01-03-2024 End: 84-07-9529Ctrfq 1996 panel - Serum or PlasmaLipid panel Lab Routine Mixed hyperlipidemia (CMS/HCC) Expected: 01/03/2024 (Approximate), Expires:01/02/2025 [facility] HealthcareComment on above:Expected: 01/03/2024 (Approximate), Expires: 01/02/2025Start: 01-03-2024 End: 18-89-4113Ugdjkzdzeuyg/Creatinine panel in random UrineMicroalbumin / creatinine, urine ratio Lab Routine Primary hypertension (CMS/HCC) Tobacco dependence Expected: 01/03/2024 (Approximate), Expires: 01/02/2025[facility] Healthcare Work Phone: Comment on above:Expected: 01/03/2024 (Approximate), Expires: 01/02/2025Start: 01-03-2024 End: 00-60-9418Keeyjtpczi complete panel - UrineUrinalysis with reflex microscopic (clean catch) Lab Routine Primary hypertension (CMS/HCC) Tobacco dependence Expected: 01/03/2024 (Approximate), Expires: 01/02/2025NOMS HealthcareComment on above:Expected: 01/03/2024 (Approximate), Expires: 01/02/2025Start: 01-03-2024 End: 31-87-3918Koiefma encounter procedureNOMS CW FMComment on above:WINSOME (obstructive sleep apnea) (Primary Dx); COPD mixed type (CMS/HCC); Primary hypertension (CMS/HCC); Fibromyalgia; BMI 40.0-44.9, adult (CMS/HCC); Tobacco dependence; Mixed hyperlipidemia (CMS/HCC); Vitamin D deficiency; Vitamin B12 deficiencyStart: 18-66-9116Dxcrvefgs vaccinationInfluenza Vaccine (#1)NOMS HealthcareStart: 16-51-1879HPaK/Tdap/Td Vaccines (2 - Td or Tdap) DTaP/Tdap/Td Vaccines (2 - Td or Tdap)NOMS HealthcareStart: 04-92-4610Mrczfmnup vaccinationInfluenza Vaccine (#1)NOMS HealthcareComment on above:Postponed from 10/09/2022 (Patient Refused)Start: 04-06-2023 End: 56-09-1360Gvsjpwx encounter ctztsxmem97/27/2024 1:40 PM EST Office Visit [facility] [address] [place] [address] Jaymie Phoenix, WEDDING DESIGNER [address] [place] [address] NOMS CW FMStart: 03-25-2023 End: 29-82-8945NTQ W Auto Differential panel - BloodCBC and differential Lab Routine Edema of right lower extremity Expected: 03/25/2023 (Approximate), Expires: 03/25/2024NOMS HealthcareComment on above:Expected: 03/25/2023 (Approximate), Expires: 03/25/2024Start: 03-25-2023 End: 48-86-9094Reanlpfigasmz metabolic 2000 panel - Serum or PlasmaComprehensive metabolic panel Lab Routine Edema of right lower extremity Expected: 03/25/2023 (Approximate), Expires: 03/25/2024NOOK HealthcareComment on above:Expected: 03/25/2023 (Approximate), Expires: 03/25/2024Start: 03-25-2023 End: 38-06-9324Csqqdc D-dimer FEU [Mass/volume] in Platelet poor plasmaD-dimer, quantitative Lab Routine Edema of right lower extremity Expected: 03/25/2023 (Approximate), Expires: 03/25/2024NOMS HealthcareComment on above:Expected: 03/25/2023 (Approximate), Expires: 03/25/2024Start: 03-25-2023 End: 56-14-2849RR.doppler Lower extremity vein - rightVascular US lower extremity venous duplex right Imaging STAT Edema of right lower extremity Expected: 03/25/2023, Expires: 03/25/2024[facility] Work Phone: Comment on above:Expected: 03/25/2023, Expires: 03/25/2024Start: 03-25-2023 End: 45-13-1763JN Chest 2 ViewsXR chest 2 views Imaging Routine Edema of right lower extremity Shortness of breath Expected: 03/25/2023, Expires: 03/25/2024 NOMS HealthcareComment on above:Expected: 03/25/2023, Expires: 03/25/2024Start: 51-11-6186Wzgonfxbg for malignant neoplasm of cervixHPV/CotestNOMS Healthcare Start: 01-04-9664Vmkhpnmgx for malignant neoplasm of cervixPap SmearNOMS HealthcareStart: 62-82-9088LXD Vaccines (1 of 1 - Standard series)MMR Vaccines (1 of 1 - Standard series)[facility] HealthcareStart: 07-09-1964Medicare Annual Wellness (AWV)Medicare Annual Wellness [...] CULTURE 2 Lab Routine 12/25/2023 9:20 PM ESTNOOK Healthcare Immunizations Immunization DateImmunizationNotesCare UnypqrbfUabykokb51-31-6649euvotkp toxoid, reduced diphtheria toxoid, and acellular pertussis vaccine, adsorbedLisa Aichholz WEDDING DESIGNER Work Phone: NOOK Ducgxogzwj39-37-8674Jgafwls IRZI-MjT-2Acka Aichholz WEDDING DESIGNER Work Phone: NOOK HealthcareNEGATED: Highlighted row has not occurred!10-70-4979lccskfxet virus vaccine, unspecified formulationMichael NILL General Surgery [place] Payers DatePayer CategoryPayerPolicy [id number] Health [id number] MEDICARE ADVANTAGE [id number] 2016Medicare [id number] 2..1.810636.3.57[id number] 2..1.992962.3.57[id number] 2.16.840.1.003882.3.579.[id number] 2.16.840.1.672043.3.579.[id number] 2.16.840.1.455115.3.579.2.67405-44-8875Qpcaiwo3859335 2.16.840.1.517875.3.579.2.67293-85-6585Sudwksv5093102 2.840.1.118985.3.579.2.47441-71-8098Ptwyubm3900806 2.840.1.362738.3.579.2.82991-97-0565Anhojqn5299125 2.840.1.474869.3.579.2.42223-65-7735Jcljxuc0682650 2.840.1.303738.3.579.2.65853-63-0047Qmmnuqk9074316 2.840.1.443433.3.579.2.34446-21-6144Iasndzb2635438 2.840.1.876442.3.579.2.56052-82-9413Jmrkmyl5621424 2.840.1.608584.3.579.2.63344-06-0651Rmwdbos4387617 2.16840.1.794500.3.579.2.40662-34-8330Vnekzhc7210606 2.840.1.185040.3.579.2.78455-26-8454Sgtgovr8417634 2.840.1.078553.3.579.2.52399-84-3951Uqpwszi0264590 2.16840.1.333149.3.579.2.95842-57-3517Pswegnc4230988 2.16.840.1.349713.3.579.2.37743-47-6985Erfwfbx2873671 2.16.840.1.758065.3.579.2.49948-07-2858Rzvfdxx9029173 2.16.840.1.977799.3.579.2.62633-00-1500Yeriafg8721407 2.16.840.1.784625.3.579.2.20644-22-7840Whqhzzv9424793 2.16.840.1.272908.3.579.2.87443-17-9050Pvfirjf0221956 2.16840.1.103381.3.579.2.94256-71-9483Qtmssdj8843686 2.16840.1.393254.3.579.2.07898-47-7067Qqrzjfa3967850 2.840.1.159146.3.579.2.32232-43-7709Foniten9651855 2.840.1.646060.3.579.2.66644-99-4417Chyrxwx3867238 2.840.1.965948.3.579.2.98055-37-1313Yblvmdt55686690 2.840.1.963925.3.579.2.317448-58-8062Hvmczhi86082876 2.16840.1.073187.3.579.2.330972-10-8642Sorszek7230936 2.840.1.732004.3.579.2.635861-46-6603Wvdjbak2271599 2.840.1.668681.3.579.2.104333-81-3534Cidkilo4657580 2.16840.1.013038.3.579.2.014543-20-4506Riyligm861872889 2..840.1.205422.3.579.2.95557-32-7759Mrrxclt Health [id number] [id number] [id number] 2.16.840.1.351604.3.579.2.531UnknownRegular [id number] f11erl6i-390t-181u-3m38-1aqwz10127l2 Social History DateTypeDetailFacilityStart: 47-27-9326Takvlfn smoking statusHeavy tobacco smoker (finding)[facility]vueStart: 11-58-1476Yhgflmb smoking status NeverGeneral Surgery BellevueStart: 03-16-2023 End: 69-22-4201Wtd Assigned At BirthGerman Hospitaltart: 01-26-2023 End: 16-71-5084Zzgctjz smoking status NHISSmokes tobacco dailyNOMS Healthcare History of tobacco useCigarette SmokerNOMS HealthcareStart: 01-26-2023 End: 04-27-3834Fpfagrvonf smoked current (pack per day) - Lgrcnnmp2FBUS HealthcareStart: 01-26-2023 End: 56-48-3303Nuhaekr use and exposureSmokeless tobacco non-userNOMS Healthcare Start: 03-16-2023 End: 67-79-1674Kksjcfk intakeEx-drinker (finding)[facility]S HealthcareStart: 28-05-0925Wwloetk Gfoswcq71-19 cigarettes/dayNOMS HealthcareStart: 01-26-2023 Alcohol CommentsociallyNOMS HealthcareStart: 82-28-5639Gao Assigned At BirthNot on fileNOMS HealthcareWithin the [...] HealthcareTobacco smoking status NHISUnknown if ever smoked [facility] Work Phone: SexFemale (finding)[facility] Start: 33-41-6019Tin Assigned At [facility] Functional Status XachBkvotyvtpeDokroyAsvfbmbp45-13-7648Nnktxux Health Questionnaire 2 item (PHQ- 2) [Reported][facility] SystemsAftxzjhkvr72-88-2732FTU-6 quick depression assessment panel [Reported.PHQ][facility] SystemsRnfombvkbg85-42-8196Ndmmf score [AUDIT-C]1 06/03/2023 3:03 PM Clarisa Zarco MANOMS Yrgzahkqcy38-19-5722Vunuzcs Health Questionnaire 2 item (PHQ-2) [Reported][facility] SystemsJvyjwdqwbv02-90-1292VBC-7 quick depression assessment panel [Reported.PHQ][facility] SystemsVwlwwcxapm31-47-3608Igovmfy Health Questionnaire 2 item (PHQ-2) [Reported][facility] SystemsUnkqoiyhqg44-69-2350LMZ-1 quick depression assessment panel [Reported.PHQ][facility] SystemsChcpqdsifc03-21-4671Rcoghpi Health Questionnaire 2 item (PHQ-2) [Reported][facility] SystemsPuswcpstlw85-49-7532EEU-1 quick depression assessment panel [Reported.PHQ][facility] SystemsLmogpldyel60-01-6090 Functional StatusN/AGeneral Surgery [facility] 12-09-2021 to 08-31-2024 Note Date & PpmgVqccHccgytwx17-97-8815 History of Present illness Narrative* Nat Henderson, [...] by mouth at bedtime 90 tablet 1 Tllbdvq-Edbohihlgfh-Ezepffauun (Breztri Aerosphere) 160-9-4.8 MCG/ACT aerosol Inhale 2 [...] (5000 UT) tablet as directed Orally HYDROcodone-acetaminophen ([place]ster) 5-325 MG tablet Take 1 tablet by [...] (BMI) of 40.0 to 44.9 in adult ([facility]) 01/26/2023 COPD mixed type ([facility]) 01/26/2023 DENIES HX OF BLOOD BORNE [...] WINSOME. Nat Henderson DO documented in this encounterPemiscot Memorial Health SystemsQvabdzuopb73-41-2646 History of Present illness Narrative* Jaymie Phoenix [...] Morbid (severe) obesity due to excess calories ([facility]) Discussed with patient their BMI (actual, [...] EDTAssociated Problem(s): Chronic kidney disease, stage 3a ([facility]) Check Chem 8 * CLARISA MAHONEY - [...] Nightly atorvastatin (LIPITOR) 20 mg, Oral, Nightly Sdswqvi-Valmjrzxmpg-Mlztvqoojg (Breztri Aerosphere) 160-9-4.8 MCG/ACT aerosol 2 puffs, [...] (BMI) of 40.0 to 44.9 in adult ([facility]) 01/26/2023 COPD mixed type ([facility]) 01/26/2023 DENIES HX OF BLOOD BORNE [...] of the risks of continued smoking: stroke, [place], all forms of cancer, lung disease, and [...] PFT prior to seeing pulmonology Relevant Medications Dzblabg-Gyaomfqrcxo-Ttfowhwozo (Breztri Aerosphere) 160-9-4.8 MCG/ACT aerosol Anxiety and depression Continue with Dr Gomez GERD (gastroesophageal reflux disease) Recommendations: freq small meals, nothing to eat or drink at least 2 hours prior to bed, limit caffeine, alcohol, as well as spicy foods Meds to limit or avoid if possible: NSAIDS Elevate HOB if possible Current med: omeprazole Insurance correspondance about long-term use of PPI Pt has been 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 Compliant: no documented in this [facility]06-23-2025 Instructions* Patient Instructions* Jaymie Phoenix NP - 07/31/2024 10:30 AM EDT Get labs completed Chantix: take as directed, contact me if worsening in mental health documented in this [facility]05-07-2025 Telephone encounter Note* Telephone Encounter - Jaymie Phoenix NP - 06/14/2024 8:55 PM EDT She is also due for her AWV, please call to schedule [place] [facility] SystemsAcwcpzjofv73-37-3607 Miscellaneous Notes* Telephone Encounter - Jaymie Phoenix NP - 06/14/2024 8:55 PM EDT She is also due for her AWV, please call to schedule [place] documented in this [facility]05-07-2025 Telephone encounter Note* Telephone Encounter - Kym Adam - 06/14/2024 4:06 PM EDT 90 day supply [facility] SystemsDdqjjrumvb76-22-9929 Miscellaneous Notes* Telephone Encounter - Kym Adam - 06/14/2024 4:06 PM EDT 90 day supply documented in this encounterPemiscot Memorial Health [id number] History of Present illness Narrative* Saumya Back, [...] (BMI) of 40.0 to 44.9 in adult ([facility]) 01/26/2023 COPD mixed type (CMS/HCC) 01/26/2023 DENIES [...] , wrist extensors , wrist flexor , crown wheel assembler strength 5/5. LUE Strength deltoid , biceps , triceps , wrist extensors , wrist flexor , crown wheel assembler strength 5/5. RLE Strength illopsoas, quadriceps, tibialis [...] reflex 1+ . Forrest's sign negative. Coordination: Dhyrmi-rc-doha testing and rapid alternating movements are normal [...] plan, and return instructions documented in this encounterPemiscot Memorial Health [id number] History of Present illness Narrative* Jaymie Phoenix [...] (BMI) of 40.0 to 44.9 in adult ([facility]) 01/26/2023 COPD mixed type (CMS/HCC) 01/26/2023 DENIES [...] of the risks of continued smoking: stroke, [place], all forms of cancer, lung disease, and [...] possible Current med: omeprazole Insurance correspondance about long-term use of PPI Pt has been counseled on the 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 Compliant: no documented in this encounterPemiscot Memorial Health [id number] History of Present illness Narrative* Jaymie Phoenix NP - 01/03/2024 11:14 AM ESTAssociated Problem(s): COPD with acute exacerbation ([facility]) Pt reports getting better , feels better [...] (BMI) of 40.0 to 44.9 in adult ([facility]) 01/26/2023 COPD mixed type ([facility]) 01/26/2023 DENIES HX OF BLOOD BORNE DISEASES Depression ([facility]) Fibromyalgia Open wound of left foot 01/26/2023 Open wound of second toe 01/26/2023 Other acute sinusitis 01/26/2023 Primary hypertension ([facility]) 01/26/2023 Tobacco dependence 01/26/2023 Past Surgical [...] of the risks of continued smoking: stroke, [place], all forms of cancer, lung disease, and [...] Vitamin D 25 hydroxy BMI 40.0-44.9, adult (CMS/[facility]) WINSOME (obstructive sleep apnea) - Primary Non compliant with use of PAP COPD with acute exacerbation ([facility]) Pt reports getting better , feels better than in hospital I.S. 10 times hour every hour awake Recommend quitting smoking Continue nebulizers Refer to pulmonary * Jaymie Phoenix NP - 01/03/2024 6:48 AM ESTAssociated Problem(s): Mixed hyperlipidemia ([facility]) On statin therapy, check labs * Jaymie Phoenix NP - 01/03/2024 6:46 AM ESTAssociated Problem(s): Tobacco dependence The patient has been advised of the risks of continued smoking: stroke, [place], all forms of cancer, lung disease, and [...] 01/03/2024 6:45 AM ESTAssociated Problem(s): Primary hypertension ([facility]) Please check blood pressure daily and record [...] with use of PAP documented in this [facility]11-25-2024 Instructions* Patient Instructions* Jaymie Phoenix NP - 01/03/2024 10:30 AM EST Referral to advance scout Consider patches documented in this [facility]02-15-2024 History of Present illness Narrative* Jaymie Phoenix [...] (BMI) of 40.0 to 44.9 in adult ([facility]) 01/26/2023 COPD mixed type ([facility]) 01/26/2023 DENIES HX OF BLOOD BORNE DISEASES Depression ([facility]) Fibromyalgia Open wound of left foot 01/26/2023 Open wound of second toe 01/26/2023 Other acute sinusitis 01/26/2023 Primary hypertension ([facility]) 01/26/2023 Tobacco dependence 01/26/2023 Past Surgical [...] XR chest 2 views documented in this encounterP[facility] [id number] History of Present illness Narrative* Jaymie Phoenix [...] (BMI) of 40.0 to 44.9 in adult ([facility]) 01/26/2023 COPD mixed type ([facility]) 01/26/2023 DENIES HX OF BLOOD BORNE DISEASES Depression ([facility]) Fibromyalgia Open wound of left foot [...] in albuterol inhaler prn BMI 40.0-44.9, adult ([facility]) Other Visit Diagnoses Body mass index [BMI] 40.0-44.9, adult (Z68.41) documented in this encounterPemiscot [facility] [id number] NoteCONSULTATION CONSULTATION DATE: 04/30/2022 TO: Nurse Alban [...] our office on an as needed basis.[id number] Note OPERATIVE NOTE OPERATION DATE: 02/25/2022 PREOPERATIVE [...] room in good condition. CC: [facility] NoteCONSULTATION CONSULTATION DATE: 02/06/2022 HISTORY OF [...] be followed up in the clinic thereafter.[facility] [id number] NoteChief Complaint consultation for positive Cologuard HPI [...] last 30 days Tobacco (more content not included)...[facility] HospitalComment on above:Result Comment: Electronically Signed By: NABIL AMADOR, Bryson Steinberg\\Date and Time Signed: 02/03/22 13:53 [id number] NoteCONSULTATION CONSULTATION DATE: 01/08/2022 HISTORY OF PRESENT [...] be followed up in the clinic thereafter.[facility] [id number] NoteCONSULTATION CONSULTATION DATE: 12/09/2021 CHIEF COMPLAINT: Low [...] like to proceed. CC: Jaymie Phoenix, CNPThe [facility] HospitalEvaluation + Plan note No data available for this section General Surgery [place] Evaluation note* Diagnosis COPD mixed type (CMS/HCC)- Primary Tobacco dependence Tobacco use disorder BMI 40.0-44.9, adult (CMS/HCC) Body mass index [BMI] 40.0-44.9, adult (Z68.41) Primary hypertension (CMS/HCC) Unspecified essential hypertension Bilateral lower extremity edema documented in this encounter [facility] Healthcare[facility]* Diagnosis Edema of right lower extremity- Primary BMI 40.0-44.9, adult (CMS/HCC) Shortness of breath COPD mixed type (CMS/HCC) Primary hypertension (CMS/HCC) Unspecified essential hypertension Bilateral lower extremity edema documented in this encounter [facility] HealthcareEvaluation [facility]* Diagnosis Primary hypertension (CMS/HCC)- [...] dependence Tobacco use disorder BMI 40.0-44.9, adult ([facility]) COPD mixed type ([facility]) WINSOME (obstructive sleep apnea) Obstructive sleep apnea (adult) (pediatric) Encounter for subsequent annual wellness visit (AWV) in Medicare patient- Primary Edema of right lower extremity Anxiety and depression ([facility]) Tobacco dependence Tobacco use disorder BMI 40.0-44.9, adult ([facility]) Fibromyalgia Unspecified myalgia and myositis Primary hypertension ([facility]) Unspecified essential hypertension COPD mixed type ([facility]) Mixed hyperlipidemia ([facility]) Mixed hyperlipidemia documented in this encounter [facility]* Diagnosis Primary hypertension ([facility])- Primary Unspecified essential hypertension Mixed hyperlipidemia ([facility]) Mixed hyperlipidemia Fibromyalgia Unspecified myalgia and myositis Migraine without aura and without status migrainosus, not intractable ([facility]) Class 3 severe obesity due to excess calories without serious comorbidity with body mass index (BMI) of 40.0 to 44.9 in adult ([facility]) Tobacco dependence Tobacco use disorder Bilateral lower extremity edema Acute non-recurrent sinusitis of other sinus COPD mixed type ([facility]) Open wound of second toe of left foot, initial encounter Open wound of left foot, initial encounter COPD mixed type ([facility])- Primary Tobacco dependence Tobacco use disorder BMI 40.0-44.9, adult ([facility]) Body mass index [BMI] 40.0-44.9, adult (Z68.41) Primary hypertension ([facility]) Unspecified essential hypertension Bilateral lower extremity edema Edema of right lower extremity- Primary BMI 40.0-44.9, adult ([facility]) Shortness of breath COPD mixed type ([facility]) Primary hypertension ([facility]) Unspecified essential hypertension Bilateral lower extremity edema Bilateral lower extremity edema- Primary Primary hypertension ([facility]) Unspecified essential hypertension COPD mixed type ([facility]) Class 3 severe obesity due to excess calories without serious comorbidity with body mass index (BMI) of 40.0 to 44.9 in adult ([facility]) Tobacco dependence Tobacco use disorder Bilateral lower extremity edema- Primary Tobacco dependence Tobacco use disorder BMI 40.0-44.9, adult ([facility]) COPD mixed type ([facility]) WINSOME (obstructive sleep apnea) Obstructive sleep apnea (adult) (pediatric) Encounter for subsequent annual wellness visit (AWV) in Medicare patient- Primary Edema of right lower extremity Anxiety and depression ([facility]) Tobacco dependence Tobacco use disorder BMI 40.0-44.9, adult ([facility]) Fibromyalgia Unspecified myalgia and myositis Primary hypertension ([facility]) Unspecified essential hypertension COPD mixed type ([facility] Fibromyalgia Unspecified myalgia and myositis documented in this encounter [facility] HealthcareEvaluation note* Diagnosis Primary hypertension ([facility])- Primary Unspecified essential hypertension Mixed hyperlipidemia ([facility]) Mixed hyperlipidemia Fibromyalgia Unspecified myalgia and myositis Migraine without aura and without status migrainosus, not intractable ([facility]) Class 3 severe obesity due to excess calories without serious comorbidity with body mass index (BMI) of 40.0 to 44.9 in adult ([facility]) Tobacco dependence Tobacco use disorder Bilateral lower extremity edema Acute non-recurrent sinusitis of other sinus COPD mixed type ([facility]) Open wound of second toe of left foot, initial encounter Open wound of left foot, initial encounter COPD mixed type ([facility]/HCC)- Primary Tobacco dependence Tobacco use disorder BMI 40.0-44.9, adult ([facility]) Body mass index [BMI] 40.0-44.9, adult (Z68.41) Primary hypertension ([facility]) Unspecified essential hypertension Bilateral lower extremity edema Edema of right lower extremity- Primary BMI 40.0-44.9, adult ([facility]) Shortness of breath COPD mixed type ([facility]) Primary hypertension ([facility]) Unspecified essential hypertension Bilateral lower extremity edema Bilateral lower extremity edema- Primary Primary hypertension ([facility]) Unspecified essential hypertension COPD mixed type ([facility]) Class 3 severe obesity due to excess calories without serious comorbidity with body mass index (BMI) of 40.0 to 44.9 in adult ([facility]) Tobacco dependence Tobacco use disorder Bilateral lower extremity edema- Primary Tobacco dependence Tobacco use disorder BMI 40.0-44.9, adult ([facility]) COPD mixed type ([facility]) WINSOME (obstructive sleep apnea) Obstructive sleep apnea (adult) (pediatric) Encounter for subsequent annual wellness visit (AWV) in Medicare patient- Primary Edema of right lower extremity Anxiety and depression ([facility]) Tobacco dependence Tobacco use disorder BMI 40.0-44.9, adult ([facility]) Fibromyalgia Unspecified myalgia and myositis Primary hypertension (CMS/HCC) Unspecified essential hypertension COPD mixed type (CMS/HCC) WINSOME (obstructive sleep apnea)- Primary Obstructive sleep apnea (adult) (pediatric) COPD mixed type (CMS/HCC) Primary hypertension (CMS/HCC) Unspecified essential hypertension Fibromyalgia Unspecified myalgia and myositis BMI 40.0-44.9, adult ([facility]) Tobacco dependence Tobacco use disorder Mixed hyperlipidemia (CMS/HCC) Mixed hyperlipidemia Vitamin D deficiency Vitamin B12 deficiency Other B-complex deficiencies COPD with acute exacerbation (CMS/[facility]) documented in this encounter [facility]* Diagnosis Fibromyalgia Unspecified myalgia and myositis Gastro-esophageal reflux disease without esophagitis documented in this encounter [facility]* Diagnosis Primary hypertension ([facility]/HCC)- Primary Unspecified essential hypertension Mixed hyperlipidemia ([facility]) Mixed hyperlipidemia Fibromyalgia Unspecified myalgia and myositis Migraine without aura and without status migrainosus, not intractable ([facility]) Class 3 severe obesity due to excess calories without serious comorbidity with body mass index (BMI) of 40.0 to 44.9 in adult ([facility]) Tobacco dependence Tobacco use disorder Bilateral lower extremity edema Acute non-recurrent sinusitis of other sinus COPD mixed type (CMS/[facility]) Open wound of second toe of left foot, initial encounter Open wound of left foot, initial encounter COPD mixed type (CMS/HCC)- Primary Tobacco dependence Tobacco use disorder BMI 40.0-44.9, adult ([facility]) Body mass index [BMI] 40.0-44.9, adult (Z68.41) Primary hypertension ([facility]) Unspecified essential hypertension Bilateral lower extremity edema Edema of right lower extremity- Primary BMI 40.0-44.9, adult ([facility]) Shortness of breath COPD mixed type (CMS/HCC) Primary hypertension (CMS/HCC) Unspecified essential hypertension Bilateral lower extremity edema Bilateral lower extremity edema- Primary Primary hypertension ([facility]) Unspecified essential hypertension COPD mixed type (CMS/HCC) Class 3 severe obesity due to excess calories without serious comorbidity with body mass index (BMI) of 40.0 to 44.9 in adult ([facility]) Tobacco dependence Tobacco use disorder Bilateral lower extremity edema- Primary Tobacco dependence Tobacco use disorder BMI 40.0-44.9, adult ([facility]) COPD mixed type ([facility]/HCC) WINSOME (obstructive sleep apnea) Obstructive sleep apnea (adult) (pediatric) Encounter for subsequent annual wellness visit (AWV) in Medicare patient- Primary Edema of right lower extremity Anxiety and depression ([facility]) Tobacco dependence Tobacco use disorder BMI 40.0-44.9, adult (CMS/[facility]) Fibromyalgia Unspecified myalgia and myositis Primary hypertension (CMS/HCC) Unspecified essential hypertension COPD mixed type (CMS/HCC) WINSOME (obstructive sleep apnea)- Primary Obstructive sleep apnea (adult) (pediatric) COPD mixed type (CMS/HCC) Primary hypertension (CMS/HCC) Unspecified essential hypertension Fibromyalgia Unspecified myalgia and myositis BMI 40.0-44.9, adult ([facility]) Tobacco dependence Tobacco use disorder Mixed hyperlipidemia (CMS/HCC) Mixed hyperlipidemia Vitamin D deficiency Vitamin B12 deficiency Other B-complex deficiencies COPD with acute exacerbation (CMS/[facility]) Fibromyalgia Unspecified myalgia and myositis documented in this encounter [facility] HealthcareEvaluation note* Diagnosis Primary hypertension ([facility])- Primary Unspecified essential hypertension Mixed hyperlipidemia (CMS/HCC) Mixed hyperlipidemia Fibromyalgia Unspecified myalgia and myositis Migraine without aura and without status migrainosus, not intractable (CMS/[facility]) Class 3 severe obesity due to excess calories without serious comorbidity with body mass index (BMI) of 40.0 to 44.9 in adult ([facility]) Tobacco dependence Tobacco use disorder Bilateral [...] right lower extremity- Primary BMI 40.0-44.9, adult ([facility]) Shortness of breath COPD mixed type (CMS/HCC) Primary hypertension (CMS/HCC) Unspecified essential hypertension Bilateral lower extremity edema Bilateral lower extremity edema- Primary Primary hypertension (CMS/HCC) Unspecified essential hypertension COPD mixed type (CMS/HCC) Class 3 severe obesity due to excess calories without serious comorbidity with body mass index (BMI) of 40.0 to 44.9 in adult ([facility]) Tobacco dependence Tobacco use disorder Bilateral lower extremity edema- Primary Tobacco dependence Tobacco use disorder BMI 40.0-44.9, adult ([facility]) COPD mixed type ([facility]) WINSOME (obstructive sleep apnea) Obstructive sleep apnea (adult) (pediatric) Encounter for subsequent annual wellness visit (AWV) in Medicare patient- Primary Edema of right lower extremity Anxiety and depression ([facility]) Tobacco dependence Tobacco use disorder BMI 40.0-44.9, adult ([facility]) Fibromyalgia Unspecified myalgia and myositis Primary hypertension ([facility]) Unspecified essential hypertension COPD mixed type ([facility]) WINSOME (obstructive sleep apnea)- Primary Obstructive sleep apnea (adult) (pediatric) COPD mixed type ([facility]) Primary hypertension ([facility]) Unspecified essential hypertension Fibromyalgia Unspecified myalgia and myositis BMI 40.0-44.9, adult ([facility]) Tobacco dependence Tobacco use disorder Mixed hyperlipidemia ([facility]) Mixed hyperlipidemia Vitamin D deficiency Vitamin B12 deficiency Other B-complex deficiencies COPD with acute exacerbation ([facility]) COPD with acute exacerbation ([facility])- Primary Morbid (severe) obesity due to excess calories ([facility]) Body mass index (BMI) 40.0-44.9, adult ([facility]) WINSOME (obstructive sleep apnea) Obstructive sleep apnea (adult) (pediatric) COPD mixed type ([facility]) Gastroesophageal reflux disease, unspecified whether esophagitis present Tobacco dependence Tobacco use disorder Gastro-esophageal reflux disease without esophagitis Tremor Abnormal involuntary movements documented in this encounter [facility] HealthcareEvaluation note* Diagnosis Primary hypertension ([facility])- Primary Unspecified essential hypertension Mixed hyperlipidemia ([facility]) Mixed hyperlipidemia Fibromyalgia Unspecified myalgia and myositis Migraine without aura and without status migrainosus, not intractable ([facility]) Class 3 severe obesity due to excess calories without serious comorbidity with body mass index (BMI) of 40.0 to 44.9 in adult ([facility]) Tobacco dependence Tobacco use disorder Bilateral lower extremity edema Acute non-recurrent sinusitis of other sinus COPD mixed type ([facility]) Open wound of second toe of left foot, initial encounter Open wound of left foot, initial encounter COPD mixed type ([facility])- Primary Tobacco dependence Tobacco use disorder BMI 40.0-44.9, adult ([facility]) Body mass index [BMI] 40.0-44.9, adult (Z68.41) Primary hypertension (CMS/HCC) Unspecified essential hypertension Bilateral lower extremity edema Edema of right lower extremity- Primary BMI 40.0-44.9, adult ([facility]) Shortness of breath COPD mixed type (CMS/HCC) Primary hypertension (CMS/HCC) Unspecified essential hypertension Bilateral lower extremity edema Bilateral lower extremity edema- Primary Primary hypertension ([facility]/HCC) Unspecified essential hypertension COPD mixed type (CMS/HCC) Class 3 severe obesity due to excess calories without serious comorbidity with body mass index (BMI) of 40.0 to 44.9 in adult ([facility]) Tobacco dependence Tobacco use disorder Bilateral lower extremity edema- Primary Tobacco dependence Tobacco use disorder BMI 40.0-44.9, adult ([facility]) COPD mixed type ([facility]/HCC) WINSOME (obstructive sleep apnea) Obstructive sleep apnea (adult) (pediatric) Encounter for subsequent annual wellness visit (AWV) in Medicare patient- Primary Edema of right lower extremity Anxiety and depression ([facility]) Tobacco dependence Tobacco use disorder BMI 40.0-44.9, adult ([facility]) Fibromyalgia Unspecified myalgia and myositis Primary hypertension ([facility]) Unspecified essential hypertension COPD mixed type ([facility]/HCC) WINSOME (obstructive sleep apnea)- Primary Obstructive sleep apnea (adult) (pediatric) COPD mixed type ([facility]/HCC) Primary hypertension ([facility]) Unspecified essential hypertension Fibromyalgia Unspecified myalgia and myositis BMI 40.0-44.9, adult ([facility]) Tobacco dependence Tobacco use disorder Mixed hyperlipidemia ([facility]) Mixed hyperlipidemia Vitamin D deficiency Vitamin B12 deficiency Other B-complex deficiencies COPD with acute exacerbation ([facility]/HCC) COPD with acute exacerbation ([facility]/HCC)- Primary Morbid (severe) obesity due to excess calories ([facility]) Body mass index (BMI) 40.0-44.9, adult ([facility]) WINSOME (obstructive sleep apnea) Obstructive sleep apnea (adult) (pediatric) COPD mixed type ([facility]/HCC) Gastroesophageal reflux disease, unspecified whether esophagitis present Tobacco dependence Tobacco use disorder Gastro-esophageal reflux disease without esophagitis Tremor Abnormal involuntary movements 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 Secondary Parkinsonism Tremor Abnormal involuntary movements documented in this encounter [facility]* Diagnosis Primary hypertension ([facility]/HCC)- Primary Unspecified essential hypertension Mixed hyperlipidemia (CMS/[facility]) Mixed hyperlipidemia Fibromyalgia Unspecified myalgia and myositis Migraine without aura and without status migrainosus, not intractable ([facility]) Class 3 severe obesity due to excess calories without serious comorbidity with body mass index (BMI) of 40.0 to 44.9 in adult ([facility]) Tobacco dependence Tobacco use disorder Bilateral lower extremity edema Acute non-recurrent sinusitis of other sinus COPD mixed type ([facility]) Open wound of second toe of left foot, initial encounter Open wound of left foot, initial encounter COPD mixed type (CMS/HCC)- Primary Tobacco dependence Tobacco use disorder BMI 40.0-44.9, adult ([facility]) Body mass index [BMI] 40.0-44.9, adult (Z68.41) Primary hypertension (CMS/[facility]) Unspecified essential hypertension Bilateral lower extremity edema Edema of right lower extremity- Primary BMI 40.0-44.9, adult ([facility]) Shortness of breath COPD mixed type ([facility]) Primary hypertension ([facility]) Unspecified essential hypertension Bilateral lower extremity edema Bilateral lower extremity edema- Primary Primary hypertension (CMS/[facility]) Unspecified essential hypertension COPD mixed type ([facility]) Class 3 severe obesity due to excess calories without serious comorbidity with body mass index (BMI) of 40.0 to 44.9 in adult ([facility]) Tobacco dependence Tobacco use disorder Bilateral lower extremity edema- Primary Tobacco dependence Tobacco use disorder BMI 40.0-44.9, adult ([facility]) COPD mixed type ([facility]) WINSOME (obstructive sleep apnea) Obstructive sleep apnea (adult) (pediatric) Encounter for subsequent annual wellness visit (AWV) in Medicare patient- Primary Edema of right lower extremity Anxiety and depression ([facility]) Tobacco dependence Tobacco use disorder BMI 40.0-44.9, adult ([facility]) Fibromyalgia Unspecified myalgia and myositis Primary hypertension ([facility]) Unspecified essential hypertension COPD mixed type ([facility]) WINSOME (obstructive sleep apnea)- Primary Obstructive sleep apnea (adult) (pediatric) COPD mixed type ([facility]) Primary hypertension ([facility]) Unspecified essential hypertension Fibromyalgia Unspecified myalgia and myositis BMI 40.0-44.9, adult ([facility]) Tobacco dependence Tobacco use disorder Mixed hyperlipidemia ([facility]) Mixed hyperlipidemia Vitamin D deficiency Vitamin B12 deficiency Other B-complex deficiencies COPD with acute exacerbation ([facility]) COPD with acute exacerbation ([facility])- Primary Morbid (severe) obesity due to excess calories ([facility]) Body mass index (BMI) 40.0-44.9, adult ([facility]) WINSOME (obstructive sleep apnea) Obstructive sleep apnea (adult) (pediatric) COPD mixed type ([facility]) Gastroesophageal reflux disease, unspecified whether esophagitis present Tobacco dependence Tobacco use disorder Gastro-esophageal reflux disease without esophagitis Tremor Abnormal involuntary movements Fibromyalgia Unspecified myalgia and myositis Localized edema Edema Mixed hyperlipidemia ([facility]) Mixed hyperlipidemia documented in this encounter [facility] HealthcareEvaluation note* Diagnosis Primary hypertension ([facility])- Primary Unspecified essential hypertension Mixed hyperlipidemia ([facility]) Mixed hyperlipidemia Fibromyalgia Unspecified myalgia and myositis Migraine without aura and without status migrainosus, not intractable ([facility]) Class 3 severe obesity due to excess calories without serious comorbidity with body mass index (BMI) of 40.0 to 44.9 in adult ([facility]) Tobacco dependence Tobacco use disorder Bilateral lower extremity edema Acute non-recurrent sinusitis of other sinus COPD mixed type ([facility]) Open wound of second toe of left foot, initial encounter Open wound of left foot, initial encounter COPD mixed type ([facility])- Primary Tobacco dependence Tobacco use disorder BMI 40.0-44.9, adult ([facility]) Body mass index [BMI] 40.0-44.9, adult (Z68.41) Primary hypertension ([facility]) Unspecified essential hypertension Bilateral lower extremity edema Edema of right lower extremity- Primary BMI 40.0-44.9, adult ([facility]) Shortness of breath COPD mixed type ([facility]) Primary hypertension ([facility]) Unspecified essential hypertension Bilateral lower extremity edema Bilateral lower extremity edema- Primary Primary hypertension ([facility]) Unspecified essential hypertension COPD mixed type ([facility]) Class 3 severe obesity due to excess calories without serious comorbidity with body mass index (BMI) of 40.0 to 44.9 in adult ([facility]) Tobacco dependence Tobacco use disorder Bilateral lower extremity edema- Primary Tobacco dependence Tobacco use disorder BMI 40.0-44.9, adult ([facility]) COPD mixed type ([facility]) WINSOME (obstructive sleep apnea) Obstructive sleep apnea (adult) (pediatric) Encounter for subsequent annual wellness visit (AWV) in Medicare patient- Primary Edema of right lower extremity Anxiety and depression ([facility]) Tobacco dependence Tobacco use disorder BMI 40.0-44.9, adult ([facility]) Fibromyalgia Unspecified myalgia and myositis Primary hypertension ([facility]) Unspecified essential hypertension COPD mixed type ([facility]) WINSOME (obstructive sleep apnea)- Primary Obstructive sleep apnea (adult) (pediatric) COPD mixed type ([facility]/HCC) Primary hypertension ([facility]) Unspecified essential hypertension Fibromyalgia Unspecified myalgia and myositis BMI 40.0-44.9, adult ([facility]) Tobacco dependence Tobacco use disorder Mixed hyperlipidemia ([facility] Mixed hyperlipidemia Vitamin D deficiency Vitamin B12 deficiency Other B-complex deficiencies COPD with acute exacerbation ([facility]) COPD with acute exacerbation ([facility])- Primary Morbid (severe) obesity due to excess calories ([facility]) Body mass index (BMI) 40.0-44.9, adult ([facility]) WINSOME (obstructive sleep apnea) Obstructive sleep apnea (adult) (pediatric) COPD mixed type ([facility]) Gastroesophageal reflux disease, unspecified whether esophagitis present Tobacco dependence Tobacco use disorder Gastro-esophageal reflux disease without esophagitis Tremor Abnormal involuntary movements Environmental and seasonal allergies- Primary COPD mixed type ([facility]) documented in this encounter [facility] HealthcareEvaluation note* Diagnosis Primary hypertension ([facility])- Primary Unspecified essential hypertension Mixed hyperlipidemia ([facility]) Mixed hyperlipidemia Fibromyalgia Unspecified myalgia and myositis Migraine without aura and without status migrainosus, not intractable ([facility]) Class 3 severe obesity due to excess calories without serious comorbidity with body mass index (BMI) of 40.0 to 44.9 in adult Tobacco dependence Tobacco use disorder Bilateral lower extremity edema Acute non-recurrent sinusitis of other sinus COPD mixed type ([facility]) Open wound of second toe of left foot, initial encounter Open wound of left foot, initial encounter COPD mixed type ([facility])- Primary Tobacco dependence Tobacco use disorder BMI 40.0-44.9, adult ([facility]) Body mass index [BMI] 40.0-44.9, adult (Z68.41) Primary hypertension ([facility]) Unspecified essential hypertension Bilateral lower extremity edema Edema of right lower extremity- Primary BMI 40.0-44.9, adult ([facility]) Shortness of breath COPD mixed type ([facility]/HCC) Primary hypertension ([facility]/HCC) Unspecified essential hypertension Bilateral lower extremity edema Bilateral lower extremity edema- Primary Primary hypertension ([facility]) Unspecified essential hypertension COPD mixed type (CMS/HCC) Class 3 severe obesity due to excess calories without serious comorbidity with body mass index (BMI) of 40.0 to 44.9 in adult Tobacco dependence Tobacco use disorder Bilateral lower extremity edema- Primary Tobacco dependence Tobacco use disorder BMI 40.0-44.9, adult ([facility]) COPD mixed type ([facility]) WINSOME (obstructive sleep apnea) Obstructive sleep apnea (adult) (pediatric) Encounter for subsequent annual wellness visit (AWV) in Medicare patient- Primary Edema of right lower extremity Anxiety and depression ([facility]) Tobacco dependence Tobacco use disorder BMI 40.0-44.9, adult ([facility]) Fibromyalgia Unspecified myalgia and myositis Primary hypertension ([facility]) Unspecified essential hypertension COPD mixed type ([facility]) WINSOME (obstructive sleep apnea)- Primary Obstructive sleep apnea (adult) (pediatric) COPD mixed type ([facility]/HCC) Primary hypertension ([facility]) Unspecified essential hypertension Fibromyalgia Unspecified myalgia and myositis BMI 40.0-44.9, adult ([facility]) Tobacco dependence Tobacco use disorder Mixed hyperlipidemia ([facility] Mixed hyperlipidemia Vitamin D deficiency Vitamin B12 deficiency Other B-complex deficiencies COPD with acute exacerbation ([facility]) COPD with acute exacerbation ([facility])- Primary Morbid (severe) obesity due to excess calories ([facility]) Body mass index (BMI) 40.0-44.9, adult ([facility]) WINSOME (obstructive sleep apnea) Obstructive sleep apnea (adult) (pediatric) COPD mixed type ([facility]) Gastroesophageal reflux disease, unspecified whether esophagitis present Tobacco dependence Tobacco use disorder Gastro-esophageal reflux disease without esophagitis Tremor Abnormal involuntary movements Fibromyalgia Unspecified myalgia and myositis documented in this encounter [facility]* Diagnosis Primary hypertension ([facility])- Primary Unspecified essential hypertension Mixed hyperlipidemia ([facility]) Mixed hyperlipidemia Fibromyalgia Unspecified myalgia and myositis Migraine without aura and without status migrainosus, not intractable ([facility]) Class 3 severe obesity due to excess calories without serious comorbidity with body mass index (BMI) of 40.0 to 44.9 in adult Tobacco dependence Tobacco use disorder Bilateral lower extremity edema Acute non-recurrent sinusitis of other sinus COPD mixed type ([facility]/HCC) Open wound of second toe of left foot, initial encounter Open wound of left foot, initial encounter COPD mixed type (CMS/HCC)- Primary Tobacco dependence Tobacco use disorder BMI 40.0-44.9, adult ([facility]) Body mass index [BMI] 40.0-44.9, adult (Z68.41) Primary hypertension (CMS/HCC) Unspecified essential hypertension Bilateral lower extremity edema Edema of right lower extremity- Primary BMI 40.0-44.9, adult ([facility]) Shortness of breath COPD mixed type (CMS/HCC) Primary hypertension (CMS/HCC) Unspecified essential hypertension Bilateral lower extremity edema Bilateral lower extremity edema- Primary Primary hypertension (CMS/[facility]) Unspecified essential hypertension COPD mixed type (CMS/[facility]) Class 3 severe obesity due to excess calories without serious comorbidity with body mass index (BMI) of 40.0 to 44.9 in adult Tobacco dependence Tobacco use disorder Bilateral lower extremity edema- Primary Tobacco dependence Tobacco use disorder BMI 40.0-44.9, adult ([facility]) COPD mixed type ([facility]) WINSOME (obstructive sleep apnea) Obstructive sleep apnea (adult) (pediatric) Encounter for subsequent annual wellness visit (AWV) in Medicare patient- Primary Edema of right lower extremity Anxiety and depression ([facility]) Tobacco dependence Tobacco use disorder BMI 40.0-44.9, adult ([facility]) Fibromyalgia Unspecified myalgia and myositis Primary hypertension ([facility]) Unspecified essential hypertension COPD mixed type ([facility]) WINSOME (obstructive sleep apnea)- Primary Obstructive sleep apnea (adult) (pediatric) COPD mixed type ([facility]) Primary hypertension ([facility]) Unspecified essential hypertension Fibromyalgia Unspecified myalgia and myositis BMI 40.0-44.9, adult ([facility]) Tobacco dependence Tobacco use disorder Mixed hyperlipidemia ([facility] Mixed hyperlipidemia Vitamin D deficiency Vitamin B12 deficiency Other B-complex deficiencies COPD with acute exacerbation ([facility]) COPD with acute exacerbation ([facility])- Primary Morbid (severe) obesity due to excess calories ([facility]) Body mass index (BMI) 40.0-44.9, adult ([facility]) WINSOME (obstructive sleep apnea) Obstructive sleep apnea (adult) (pediatric) COPD mixed type (CMS/HCC) Gastroesophageal reflux disease, unspecified whether esophagitis present Tobacco dependence Tobacco use disorder Gastro-esophageal reflux disease without esophagitis Tremor Abnormal involuntary movements Mixed hyperlipidemia ([facility]) Mixed hyperlipidemia documented in this encounter [facility] HealthcareEvaluation note* Diagnosis Primary hypertension ([facility])- Primary Unspecified essential hypertension Mixed hyperlipidemia ([facility]) Mixed hyperlipidemia Fibromyalgia Unspecified myalgia and myositis Migraine without aura and without status migrainosus, not intractable ([facility]) Class 3 severe obesity due to excess calories without serious comorbidity with body mass index (BMI) of 40.0 to 44.9 in adult Tobacco dependence Tobacco use disorder Bilateral lower extremity edema Acute non-recurrent sinusitis of other sinus COPD mixed type ([facility]) Open wound of second toe of left foot, initial encounter Open wound of left foot, initial encounter COPD mixed type (CMS/HCC)- Primary Tobacco dependence Tobacco use disorder BMI 40.0-44.9, adult ([facility]) Body mass index [BMI] 40.0-44.9, adult (Z68.41) Primary hypertension (CMS/[facility]) Unspecified essential hypertension Bilateral lower extremity edema Edema of right lower extremity- Primary BMI 40.0-44.9, adult ([facility]) Shortness of breath COPD mixed type ([facility]) Primary hypertension ([facility]) Unspecified essential hypertension Bilateral lower extremity edema Bilateral lower extremity edema- Primary Primary hypertension ([facility]) Unspecified essential hypertension COPD mixed type ([facility]) Class 3 severe obesity due to excess calories without serious comorbidity with body mass index (BMI) of 40.0 to 44.9 in adult Tobacco dependence Tobacco use disorder Bilateral lower extremity edema- Primary Tobacco dependence Tobacco use disorder BMI 40.0-44.9, adult ([facility]) COPD mixed type ([facility]) WINSOME (obstructive sleep apnea) Obstructive sleep apnea (adult) (pediatric) Encounter for subsequent annual wellness visit (AWV) in Medicare patient- Primary Edema of right lower extremity Anxiety and depression ([facility]) Tobacco dependence Tobacco use disorder BMI 40.0-44.9, adult ([facility]) Fibromyalgia Unspecified myalgia and myositis Primary hypertension ([facility]) Unspecified essential hypertension COPD mixed type ([facility]) WINSOME (obstructive sleep apnea)- Primary Obstructive sleep apnea (adult) (pediatric) COPD mixed type (CMS/HCC) Primary hypertension (CMS/HCC) Unspecified essential hypertension Fibromyalgia Unspecified myalgia and myositis BMI 40.0-44.9, adult ([facility]) Tobacco dependence Tobacco use disorder Mixed hyperlipidemia (CMS/HCC) Mixed hyperlipidemia Vitamin D deficiency Vitamin B12 deficiency Other B-complex deficiencies COPD with acute exacerbation (CMS/HCC) COPD with acute exacerbation ([facility])- Primary Morbid (severe) obesity due to excess calories ([facility]) Body mass index (BMI) 40.0-44.9, adult ([facility]) WINSOME (obstructive sleep apnea) Obstructive sleep apnea (adult) (pediatric) COPD mixed type ([facility]/HCC) Gastroesophageal reflux disease, unspecified whether esophagitis present Tobacco dependence Tobacco use disorder Gastro-esophageal reflux disease without esophagitis Tremor Abnormal involuntary movements Tobacco dependence- Primary Tobacco use disorder documented in this encounter [facility] HealthcareEvaluation note* Diagnosis Primary hypertension ([facility])- Primary Unspecified essential hypertension Mixed hyperlipidemia ([facility] [facility]) Mixed hyperlipidemia Fibromyalgia Unspecified myalgia and myositis Migraine without aura and without status migrainosus, not intractable ([facility]) Class 3 severe obesity due to excess calories without serious comorbidity with body mass index (BMI) of 40.0 to 44.9 in adult Tobacco dependence Tobacco use disorder Bilateral lower extremity edema Acute non-recurrent sinusitis of other sinus COPD mixed type ([facility]) Open wound of second toe of left foot, initial encounter Open wound of left foot, initial encounter COPD mixed type ([facility]/HCC)- Primary Tobacco dependence Tobacco use disorder BMI 40.0-44.9, adult ([facility]) Body mass index [BMI] 40.0-44.9, adult (Z68.41) Primary hypertension (CMS/[facility]) Unspecified essential hypertension Bilateral lower extremity edema Edema of right lower extremity- Primary BMI 40.0-44.9, adult ([facility]) Shortness of breath COPD mixed type ([facility]/HCC) Primary hypertension ([facility]/HCC) Unspecified essential hypertension Bilateral lower extremity edema Bilateral lower extremity edema- Primary Primary hypertension ([facility]) Unspecified essential hypertension COPD mixed type (CMS/HCC) Class 3 severe obesity due to excess calories without serious comorbidity with body mass index (BMI) of 40.0 to 44.9 in adult Tobacco dependence Tobacco use disorder Bilateral lower extremity edema- Primary Tobacco dependence Tobacco use disorder BMI 40.0-44.9, adult ([facility]) COPD mixed type ([facility]) WINSOME (obstructive sleep apnea) Obstructive sleep apnea (adult) (pediatric) Encounter for subsequent annual wellness visit (AWV) in Medicare patient- Primary Edema of right lower extremity Anxiety and depression ([facility]) Tobacco dependence Tobacco use disorder BMI 40.0-44.9, adult ([facility]) Fibromyalgia Unspecified myalgia and myositis Primary hypertension ([facility]) Unspecified essential hypertension COPD mixed type ([facility]) WINSOME (obstructive sleep apnea)- Primary Obstructive sleep apnea (adult) (pediatric) COPD mixed type ([facility]) Primary hypertension ([facility]) Unspecified essential hypertension Fibromyalgia Unspecified myalgia and myositis BMI 40.0-44.9, adult ([facility]) Tobacco dependence Tobacco use disorder Mixed hyperlipidemia ([facility] Mixed hyperlipidemia Vitamin D deficiency Vitamin B12 deficiency Other B-complex deficiencies COPD with acute exacerbation ([facility]) COPD with acute exacerbation ([facility])- Primary Morbid (severe) obesity due to excess calories ([facility]) Body mass index (BMI) 40.0-44.9, adult ([facility]) WINSOME (obstructive sleep apnea) Obstructive sleep apnea (adult) (pediatric) COPD mixed type ([facility]) Gastroesophageal reflux disease, unspecified whether esophagitis present Tobacco dependence Tobacco use disorder Gastro-esophageal reflux disease without esophagitis Tremor Abnormal involuntary movements Fibromyalgia Unspecified myalgia and myositis documented in this encounter [facility] HealthcareEvaluation note* Diagnosis Primary hypertension- Primary Unspecified essential hypertension Mixed hyperlipidemia Mixed hyperlipidemia Fibromyalgia Unspecified myalgia and myositis Migraine without aura and without status migrainosus, not intractable Class 3 severe obesity due to excess calories without serious comorbidity with body mass index (BMI) of 40.0 to 44.9 in adult ([facility]) Tobacco dependence Tobacco use disorder Bilateral lower extremity edema Acute non-recurrent sinusitis of other sinus COPD mixed type ([facility]) Open wound of second toe of left foot, initial encounter Open wound of left foot, initial encounter COPD mixed type (HCC)- Primary Tobacco dependence Tobacco use disorder BMI 40.0-44.9, adult ([facility]) Body mass index [BMI] 40.0-44.9, adult (Z68.41) Primary hypertension Unspecified essential hypertension Bilateral lower extremity edema Edema of right lower extremity- Primary BMI 40.0-44.9, adult ([facility]) Shortness of breath COPD mixed type ([facility]) Primary hypertension Unspecified essential hypertension Bilateral lower extremity edema Bilateral lower extremity edema- Primary Primary hypertension Unspecified essential hypertension COPD mixed type (HCC) Class 3 severe obesity due to excess calories without serious comorbidity with body mass index (BMI) of 40.0 to 44.9 in adult ([facility]) Tobacco dependence Tobacco use disorder Bilateral lower extremity edema- Primary Tobacco dependence Tobacco use disorder BMI 40.0-44.9, adult ([facility]) COPD mixed type ([facility]) WINSOME (obstructive sleep apnea) Obstructive sleep apnea (adult) (pediatric) Encounter for subsequent annual wellness visit (AWV) in Medicare patient- Primary Edema of right lower extremity Anxiety and depression Tobacco dependence Tobacco use disorder BMI 40.0-44.9, adult ([facility]) Fibromyalgia Unspecified myalgia and myositis Primary hypertension Unspecified essential hypertension COPD mixed type ([facility]) WINSOME (obstructive sleep apnea)- Primary Obstructive sleep apnea (adult) (pediatric) COPD mixed type ([facility]) Primary hypertension Unspecified essential hypertension Fibromyalgia Unspecified myalgia and myositis BMI 40.0-44.9, adult ([facility]) Tobacco dependence Tobacco use disorder Mixed hyperlipidemia Mixed hyperlipidemia Vitamin D deficiency Vitamin B12 deficiency Other B-complex deficiencies COPD with acute exacerbation (HCC) COPD with acute exacerbation (HCC)- Primary Morbid (severe) obesity due to excess calories ([facility]) Body mass index (BMI) 40.0-44.9, adult ([facility]) WINSOME (obstructive sleep apnea) Obstructive sleep apnea (adult) (pediatric) COPD mixed type (HCC) Gastroesophageal reflux disease, unspecified whether esophagitis present Tobacco dependence Tobacco use disorder Gastro-esophageal reflux disease without esophagitis Tremor Abnormal involuntary movements Encounter for subsequent annual wellness visit (AWV) in Medicare patient- Primary Chronic kidney disease, stage 3a ([facility]) WINSOME (obstructive sleep apnea) Obstructive sleep apnea [...] for lung cancer documented in this encounter [facility] HealthcareEvaluation note* Diagnosis Primary hypertension- Primary Unspecified essential hypertension Mixed hyperlipidemia Mixed hyperlipidemia Fibromyalgia Unspecified myalgia and myositis Migraine without aura and without status migrainosus, not intractable Class 3 severe obesity due to excess calories without serious comorbidity with body mass index (BMI) of 40.0 to 44.9 in adult ([facility]) Tobacco dependence Tobacco use disorder Bilateral lower extremity edema Acute non-recurrent sinusitis of other sinus COPD mixed type (HCC) Open wound of second toe of left foot, initial encounter Open wound of left foot, initial encounter COPD mixed type (HCC)- Primary Tobacco dependence Tobacco use disorder BMI 40.0-44.9, adult ([facility]) Body mass index [BMI] 40.0-44.9, adult (Z68.41) Primary hypertension Unspecified essential hypertension Bilateral lower extremity edema Edema of right lower extremity- Primary BMI 40.0-44.9, adult ([facility]) Shortness of breath COPD mixed type (HCC) Primary hypertension Unspecified essential hypertension Bilateral lower extremity edema Bilateral lower extremity edema- Primary Primary hypertension Unspecified essential hypertension COPD mixed type (HCC) Class 3 severe obesity due to excess calories without serious comorbidity with body mass index (BMI) of 40.0 to 44.9 in adult ([facility]) Tobacco dependence Tobacco use disorder Bilateral lower extremity edema- Primary Tobacco dependence Tobacco use disorder BMI 40.0-44.9, adult ([facility]) COPD mixed type (HCC) WINSOME (obstructive sleep apnea) Obstructive sleep apnea (adult) (pediatric) Encounter for subsequent annual wellness visit (AWV) in Medicare patient- Primary Edema of right lower extremity Anxiety and depression Tobacco dependence Tobacco use disorder BMI 40.0-44.9, adult ([facility]) Fibromyalgia Unspecified myalgia and myositis Primary hypertension Unspecified essential hypertension COPD mixed type (HCC) WINSOME (obstructive sleep apnea)- Primary Obstructive sleep apnea (adult) (pediatric) COPD mixed type (HCC) Primary hypertension Unspecified essential hypertension Fibromyalgia Unspecified myalgia and myositis BMI 40.0-44.9, adult ([facility]) Tobacco dependence Tobacco use disorder Mixed hyperlipidemia Mixed hyperlipidemia Vitamin D deficiency Vitamin B12 deficiency Other B-complex deficiencies COPD with acute exacerbation (HCC) COPD with acute exacerbation (HCC)- Primary Morbid (severe) obesity due to excess calories ([facility]) Body mass index (BMI) 40.0-44.9, adult ([facility]) WINSOME (obstructive sleep apnea) Obstructive sleep apnea (adult) (pediatric) COPD mixed type (HCC) Gastroesophageal reflux disease, unspecified whether esophagitis present Tobacco dependence Tobacco use disorder Gastro-esophageal reflux disease without esophagitis Tremor Abnormal involuntary movements Encounter for subsequent annual wellness visit (AWV) in Medicare patient- Primary Chronic kidney disease, stage 3a ([facility]) WINSOME (obstructive sleep apnea) Obstructive sleep apnea [...] Tobacco use disorder documented in this encounter [facility] HealthcareEvaluation note* Diagnosis Primary hypertension- Primary Unspecified essential hypertension Mixed hyperlipidemia Mixed hyperlipidemia Fibromyalgia Unspecified myalgia and myositis Migraine without aura and without status migrainosus, not intractable Class 3 severe obesity due to excess calories without serious comorbidity with body mass index (BMI) of 40.0 to 44.9 in adult ([facility]) Tobacco dependence Tobacco use disorder Bilateral lower extremity edema Acute non-recurrent sinusitis of other sinus COPD mixed type (HCC) Open wound of second toe of left foot, initial encounter Open wound of left foot, initial encounter COPD mixed type (HCC)- Primary Tobacco dependence Tobacco use disorder BMI 40.0-44.9, adult ([facility]) Body mass index [BMI] 40.0-44.9, adult (Z68.41) Primary hypertension Unspecified essential hypertension Bilateral lower extremity edema Edema of right lower extremity- Primary BMI 40.0-44.9, adult ([facility]) Shortness of breath COPD mixed type ([facility]) Primary hypertension Unspecified essential hypertension Bilateral lower extremity edema Bilateral lower extremity edema- Primary Primary hypertension Unspecified essential hypertension COPD mixed type (HCC) Class 3 severe obesity due to excess calories without serious comorbidity with body mass index (BMI) of 40.0 to 44.9 in adult ([facility]) Tobacco dependence Tobacco use disorder Bilateral lower extremity edema- Primary Tobacco dependence Tobacco use disorder BMI 40.0-44.9, adult ([facility]) COPD mixed type (HCC) WINSOME (obstructive sleep apnea) Obstructive sleep apnea (adult) (pediatric) Encounter for subsequent annual wellness visit (AWV) in Medicare patient- Primary Edema of right lower extremity Anxiety and depression Tobacco dependence Tobacco use disorder BMI 40.0-44.9, adult ([facility]) Fibromyalgia Unspecified myalgia and myositis Primary hypertension Unspecified essential hypertension COPD mixed type ([facility]) WINSOME (obstructive sleep apnea)- Primary Obstructive sleep apnea (adult) (pediatric) COPD mixed type (HCC) Primary hypertension Unspecified essential hypertension Fibromyalgia Unspecified myalgia and myositis BMI 40.0-44.9, adult ([facility]) Tobacco dependence Tobacco use disorder Mixed hyperlipidemia Mixed hyperlipidemia Vitamin D deficiency Vitamin B12 deficiency Other B-complex deficiencies COPD with acute exacerbation ([facility]) COPD with acute exacerbation ([facility])- Primary Morbid (severe) obesity due to excess calories ([facility]) Body mass index (BMI) 40.0-44.9, adult ([facility]) WINSOME (obstructive sleep apnea) Obstructive sleep apnea (adult) (pediatric) COPD mixed type ([facility]) Gastroesophageal reflux disease, unspecified whether esophagitis present Tobacco dependence Tobacco use disorder Gastro-esophageal reflux disease without esophagitis Tremor Abnormal involuntary movements Encounter for subsequent annual wellness visit (AWV) in Medicare patient- Primary Chronic kidney disease, stage 3a ([facility]) WINSOME (obstructive sleep apnea) Obstructive sleep apnea (adult) (pediatric) COPD mixed type ([facility]) Gastroesophageal reflux disease, unspecified whether esophagitis [...] unspecified laterality- Primary documented in this encounter [facility] HealthcareEvaluation note* Diagnosis Primary hypertension- Primary Unspecified essential hypertension Mixed hyperlipidemia Mixed hyperlipidemia Fibromyalgia Unspecified myalgia and myositis Migraine without aura and without status migrainosus, not intractable Class 3 severe obesity due to excess calories without serious comorbidity with body mass index (BMI) of 40.0 to 44.9 in adult ([facility]) Tobacco dependence Tobacco use disorder Bilateral lower extremity edema Acute non-recurrent sinusitis of other sinus COPD mixed type ([facility]) Open wound of second toe of left foot, initial encounter Open wound of left foot, initial encounter COPD mixed type (HCC)- Primary Tobacco dependence Tobacco use disorder BMI 40.0-44.9, adult ([facility]) Body mass index [BMI] 40.0-44.9, adult (Z68.41) Primary hypertension Unspecified essential hypertension Bilateral lower extremity edema Edema of right lower extremity- Primary BMI 40.0-44.9, adult ([facility]) Shortness of breath COPD mixed type ([facility]) Primary hypertension Unspecified essential hypertension Bilateral lower extremity edema Bilateral lower extremity edema- Primary Primary hypertension Unspecified essential hypertension COPD mixed type (HCC) Class 3 severe obesity due to excess calories without serious comorbidity with body mass index (BMI) of 40.0 to 44.9 in adult ([facility]) Tobacco dependence Tobacco use disorder Bilateral lower extremity edema- Primary Tobacco dependence Tobacco use disorder BMI 40.0-44.9, adult ([facility]) COPD mixed type ([facility]) WINSOME (obstructive sleep apnea) Obstructive sleep apnea (adult) (pediatric) Encounter for subsequent annual wellness visit (AWV) in Medicare patient- Primary Edema of right lower extremity Anxiety and depression Tobacco dependence Tobacco use disorder BMI 40.0-44.9, adult ([facility]) Fibromyalgia Unspecified myalgia and myositis Primary hypertension Unspecified essential hypertension COPD mixed type ([facility]) WINSOME (obstructive sleep apnea)- Primary Obstructive sleep apnea (adult) (pediatric) COPD mixed type (HCC) Primary hypertension Unspecified essential hypertension Fibromyalgia Unspecified myalgia and myositis BMI 40.0-44.9, adult ([facility]) Tobacco dependence Tobacco use disorder Mixed hyperlipidemia Mixed hyperlipidemia Vitamin D deficiency Vitamin B12 deficiency Other B-complex deficiencies COPD with acute exacerbation (HCC) COPD with acute exacerbation (HCC)- Primary Morbid (severe) obesity due to excess calories ([facility]) Body mass index (BMI) 40.0-44.9, adult ([facility]) WINSOME (obstructive sleep apnea) Obstructive sleep apnea (adult) (pediatric) COPD mixed type (HCC) Gastroesophageal reflux disease, unspecified whether esophagitis present Tobacco dependence Tobacco use disorder Gastro-esophageal reflux disease without esophagitis Tremor Abnormal involuntary movements Encounter for subsequent annual wellness visit (AWV) in Medicare patient- Primary Chronic kidney disease, stage 3a ([facility]) WINSOME (obstructive sleep apnea) Obstructive sleep apnea [...] Tobacco use disorder documented in this encounter [facility] HealthcareEvaluation note* Diagnosis Primary hypertension- Primary Unspecified essential hypertension Mixed hyperlipidemia Mixed hyperlipidemia Fibromyalgia Unspecified myalgia and myositis Migraine without aura and without status migrainosus, not intractable Class 3 severe obesity due to excess calories without serious comorbidity with body mass index (BMI) of 40.0 to 44.9 in adult ([facility]) Tobacco dependence Tobacco use disorder Bilateral lower extremity edema Acute non-recurrent sinusitis of other sinus COPD mixed type (HCC) Open wound of second toe of left foot, initial encounter Open wound of left foot, initial encounter COPD mixed type (HCC)- Primary Tobacco dependence Tobacco use disorder BMI 40.0-44.9, adult ([facility]) Body mass index [BMI] 40.0-44.9, adult (Z68.41) Primary hypertension Unspecified essential hypertension Bilateral lower extremity edema Edema of right lower extremity- Primary BMI 40.0-44.9, adult ([facility]) Shortness of breath COPD mixed type (HCC) Primary hypertension Unspecified essential hypertension Bilateral lower extremity edema Bilateral lower extremity edema- Primary Primary hypertension Unspecified essential hypertension COPD mixed type (HCC) Class 3 severe obesity due to excess calories without serious comorbidity with body mass index (BMI) of 40.0 to 44.9 in adult ([facility]) Tobacco dependence Tobacco use disorder Bilateral lower extremity edema- Primary Tobacco dependence Tobacco use disorder BMI 40.0-44.9, adult ([facility]) COPD mixed type (HCC) WINSOME (obstructive sleep apnea) Obstructive sleep apnea (adult) (pediatric) Encounter for subsequent annual wellness visit (AWV) in Medicare patient- Primary Edema of right lower extremity Anxiety and depression Tobacco dependence Tobacco use disorder BMI 40.0-44.9, adult ([facility]) Fibromyalgia Unspecified myalgia and myositis Primary hypertension Unspecified essential hypertension COPD mixed type (HCC) WINSOME (obstructive sleep apnea)- Primary Obstructive sleep apnea (adult) (pediatric) COPD mixed type (HCC) Primary hypertension Unspecified essential hypertension Fibromyalgia Unspecified myalgia and myositis BMI 40.0-44.9, adult ([facility]) Tobacco dependence Tobacco use disorder Mixed hyperlipidemia Mixed hyperlipidemia Vitamin D deficiency Vitamin B12 deficiency Other B-complex deficiencies COPD with acute exacerbation (HCC) COPD with acute exacerbation (HCC)- Primary Morbid (severe) obesity due to excess calories ([facility]) Body mass index (BMI) 40.0-44.9, adult ([facility]) WINSOME (obstructive sleep apnea) Obstructive sleep apnea (adult) (pediatric) COPD mixed type (HCC) Gastroesophageal reflux disease, unspecified whether esophagitis present Tobacco dependence Tobacco use disorder Gastro-esophageal reflux disease without esophagitis Tremor Abnormal involuntary movements Encounter for subsequent annual wellness visit (AWV) in Medicare patient- Primary Chronic kidney disease, stage 3a ([facility]) WINSOME (obstructive sleep apnea) Obstructive sleep apnea [...] (BMI) of 40.0 to 44.9 in adult ([facility]) Tobacco dependence Tobacco use disorder Bilateral lower extremity edema Acute non-recurrent sinusitis of other sinus COPD mixed type ([facility]) Open wound of second toe of left foot, initial encounter Open wound of left foot, initial encounter COPD mixed type (HCC)- Primary Tobacco dependence Tobacco use disorder BMI 40.0-44.9, adult ([facility]) Body mass index [BMI] 40.0-44.9, adult (Z68.41) Primary hypertension Unspecified essential hypertension Bilateral lower extremity edema Edema of right lower extremity- Primary BMI 40.0-44.9, adult ([facility]) Shortness of breath COPD mixed type ([facility]) Primary hypertension Unspecified essential hypertension Bilateral lower extremity edema Bilateral lower extremity edema- Primary Primary hypertension Unspecified essential hypertension COPD mixed type (HCC) Class 3 severe obesity due to excess calories without serious comorbidity with body mass index (BMI) of 40.0 to 44.9 in adult ([facility]) Tobacco dependence Tobacco use disorder Bilateral lower extremity edema- Primary Tobacco dependence Tobacco use disorder BMI 40.0-44.9, adult ([facility]) COPD mixed type (HCC) WINSOME (obstructive sleep apnea) Obstructive sleep apnea (adult) (pediatric) Encounter for subsequent annual wellness visit (AWV) in Medicare patient- Primary Edema of right lower extremity Anxiety and depression Tobacco dependence Tobacco use disorder BMI 40.0-44.9, adult ([facility]) Fibromyalgia Unspecified myalgia and myositis Primary hypertension Unspecified essential hypertension COPD mixed type (HCC) WINSOME (obstructive sleep apnea)- Primary Obstructive sleep apnea (adult) (pediatric) COPD mixed type (HCC) Primary hypertension Unspecified essential hypertension Fibromyalgia Unspecified myalgia and myositis BMI 40.0-44.9, adult ([facility]) Tobacco dependence Tobacco use disorder Mixed hyperlipidemia Mixed hyperlipidemia Vitamin D deficiency Vitamin B12 deficiency Other B-complex deficiencies COPD with acute exacerbation (HCC) COPD with acute exacerbation (HCC)- Primary Morbid (severe) obesity due to excess calories ([facility]) Body mass index (BMI) 40.0-44.9, adult ([facility]) WINSOME (obstructive sleep apnea) Obstructive sleep apnea (adult) (pediatric) COPD mixed type (HCC) Gastroesophageal reflux disease, unspecified whether esophagitis present Tobacco dependence Tobacco use disorder Gastro-esophageal reflux disease without esophagitis Tremor Abnormal involuntary movements Encounter for subsequent annual wellness visit (AWV) in Medicare patient- Primary Chronic kidney disease, stage 3a ([facility] WINSOME (obstructive sleep apnea) Obstructive sleep apnea [...] obesity due to excess caloriesacuteSeptember 2024 11:11am [facility] Work Phone: Hospital Discharge instructions No data available for this section General Surgery [place] Progress note No data available for this section General Surgery [place] Reason for referral (narrative)No reason for referral information availableKettering Health [facility] Work Phone: Reblce for visit Narrative* Consultation (Routine) - ClosedSpecialtyDiagnoses / ProceduresReferred By ContactReferred To Contact Neurology Diagnoses Tremor Procedures [place] OFFICE/OUTPATIENT NEW HIGH MDM 60 MINUTES Jaymie Phoenix NP [address] [place] [address] Phone: tel: fax: Saumya Back, [address] [place] [address] Phone: tel: fax: Referral IDStatusReasonStart DateExpiration DateVisits RequestedVisits [id number] Specialty Services Required / [facility] Healthcare Summary Purpose Family History No [...] right Jaymie Phoenix NP [address] [place] [address] Referral IDStatusReasonStart DateExpiration DateVisits RequestedVisits [id number]/[id number]/ Chief Complaint and Reason for Visit Chief [...] section and content) DATE CREATED AUTHOR 12/26/2021 [facility] DATE CREATED AUTHOR AUTHOR'S ORGANIZ ATION 03/25/2022 [facility] DATE CREATED AUTHOR AUTHOR'S ORGANIZ ATION 07/17/2022 [facility] DATE CREATED AUTHOR AUTHOR'S ORGANIZ ATION 08/31/2024 [facility] DATE CREATED AUTHOR AUTHOR'S ORGANIZ ATION 09/02/2024 [facility] DATE CREATED AUTHOR AUTHOR'S ORGANIZ ATION 11/25/[address] [facility] Patient Care team informatio n (unrecognized section and content) Team MemberRelationshipSpecialtyStart DateEnd Date Jaymie Phoenix NP [address] [place] [address] Nurse PractitionerFamily Fvdmfrhb89/19/23Team MemberRelationshipSpecialtyStart DateEnd Date Shaikh Marquez MD [address] [place] [address] PCP - GeneralInternal Medicine03/25/23 Jaymie Phoenix NP [address] [place] [address] Nurse PractitionerFamily Xopqdzlr27/19/23Team MemberRelationshipSpecialtyStart DateEnd Date Shaikh Marquez MD [address] [place] [address] [facility] - [facility]03/25/23 Jaymie Phoenix NP [address] [place] [address] [facility]01/26/23Team MemberRelationshipSpecialtyStart DateEnd Date Rohan Rodríguez MD [address] [place] [address] PCP - [facility]05/13/23 Jaymie Phoenix NP [address] [place] [address] [facility] Bregailt24/19/23 Jaymie Phoenix NP [address] [place] [address] [facility] Medicine05/13/23Team MemberRelationshipSpecialtyStart DateEnd Date Rohan Rodríguez MD [address] [place] [address] PCP - [facility] Medicine05/13/23 Jaymie Phoenix NP [address] [place] [address] [facility] Plpidaca81/19/23 Jaymie Phoenix NP [address] [place] [address] Nurse PractitionerW[facility]05/13/23Team MemberRelationshipSpecialtyStart DateEnd Date Rohan Rodríguez MD [address] [place] [address] PCP - [facility]05/13/23 Jaymie Phoenix NP [address] [place] [address] Nurse PractitionerW[facility]01/26/23 Jaymie Phoenix NP [address] [place] [address] Nurse Pract[facility]erW[facility]05/13/23Team MemberRelationshipSpecialtyStart DateEnd Date Rohan Rodríguez MD [address] [place] [address] PCP - [facility]05/13/23 Jaymie Phoenix NP [address] [place] [address] Nurse PractitionerW[facility]01/26/23 Jaymie Phoenix NP [address] [place] [address] Nurse PractitionerW[facility]05/13/23Team MemberRelationshipSpecialtyStart DateEnd Date Rohan Rodríguez MD [address] [place] [address] PCP - [facility] Medicine05/13/23 Jaymie Phoenix NP [address] [place] [address] Nurse PractitionerW[facility]01/26/23 Jaymie Phoenix NP [address] [place] [address] Nurse PractitionerW[facility]05/13/23Team MemberRelationshipSpecialtyStart DateEnd Date Rohan Rodríguez MD [address] [place] [address] PCP - [facility]05/13/23 Jaymie Phoenix NP [address] [place] [address] Nurse PractitionerW[facility]01/26/23 Jayime Phoenix NP [address] [place] [address] Nurse PractitionerW[facility]05/13/23Team MemberRelationshipSpecialtyStart DateEnd Date Rohan Rodríguez MD [address] [place] [address] PCP - [facility]05/13/23 Jaymie Phoenix NP [address] [place] [address] Nurse Practitionermily Fznisomh89/19/23 Jaymie Phoenix NP [address] [place] [address] Nurse PractitionerW[facility]05/13/23Team MemberRelationshipSpecialtyStart DateEnd Date Rohan Rodríguez MD [address] [place] [address] PCP - Generalmily Medicine05/13/23 Jaymie Phoenix NP [address] [place] [address] Nurse PractitionerW[facility]01/26/23 Jaymie Phoenix NP [address] [place] [address] Nurse PractitionerW[facility]05/13/23Team MemberRelationshipSpecialtyStart DateEnd Date Rohan Rodríguez MD [address] [place] [address] PCP - [facility] Medicine05/13/23 Jaymie Phoenix NP [address] [place] [address] Nurse PractitionerW[facility]01/26/23 Jaymie Phoenix NP [address] [place] [address] Nurse PractitionerW[facility]05/13/23Team MemberRelationshipSpecialtyStart DateEnd Date Rohan Rodríguez MD [address] [place] [address] PCP - Generalmily Medicine05/13/23 Jaymie Phoenix NP [address] [place] [address] [facility] Ciuowpfm87/19/23 Jaymie Phoenix NP [address] [place] [address] Nurse PractitionerW[facility]05/13/23Team MemberRelationshipSpecialtyStart DateEnd Date Rohan Rodríguez MD [address] [place] [address] PCP - Generalmi Medicine05/13/23 Jaymie Phoenix NP [address] [place] [address] [facility] Uszifjax74/19/23 Jaymie Phoenix NP [address] [place] [address] [facility] Medicine05/13/23Team MemberRelationshipSpecialtyStart DateEnd Date Rohan Rodríguez MD [address] [place] [address] PCP - GeneralFamily Medicine05/13/23 Jaymie Phoenix NP [address] [place] [address] [facility] Qtuyhfgg56/19/23 Jaymie Phoenix NP [address] [place] [address] Nurse PractitionerW[facility]05/13/23Team MemberRelationshipSpecialtyStart DateEnd Date Rohan Rodríguez MD [address] [place] [address] PCP - [facility]05/13/23 Jaymie Phoenix NP [address] [place] [address] Nurse PractitionerW[facility]01/26/23 Jaymie Phoenix NP [address] [place] [address] Nurse PractitionerW[facility]05/13/23Team MemberRelationshipSpecialtyStart DateEnd Date Rohan Rodríguez MD [address] [place] [address] PCP - GeneralW[facility]05/13/23 Jaymie Phoenix NP [address] [place] [address] Nurse PractitionerW[facility]01/26/23 Jaymie Phoenix NP [address] [place] [address] [facility] Medicine05/13/23Team MemberRelationshipSpecialtyStart DateEnd Rohan Rodríguez MD [address] [place] [address] PCP - Generalmi Medicine05/13/23 Jaymie Phoenix, NILE [address] [place] [address] [facility] Frwpoaxg28/19/23 Jaymie Phoenix NP [address] [place] [address] Nurse PractitionerW[facility]05/13/23Te MemberRelationshipSpecialtyStart DateEnd Date Rohan Rodríguez MD [address] [place] [address] PCP - [facility] Medicine05/13/23 Jaymie Phoenix NP [address] [place] [address] [facility] Xjbzajhv88/19/23 Jaymie Phoenix NP [address] [place] [address] Nurse PractitionerW[facility]05/13/23Team MemberRelationshipSpecialtyStart DateEnd Date Rohan Rodríguez MD [address] [place] [address] PCP - [facility] Medicine05/13/23 Jaymie Phoenix NP [address] [place] [address] Nurse Pract[facility]erW[facility]01/26/23 Jaymie Phoenix NP [address] [place] [address] Nurse PractitionerW[facility]05/13/23Team MemberRelationshipSpecialtyStart DateEnd Date Rohan Rodríguez MD [address] [place] [address] PCP - [facility]05/13/23 Jaymie Phoenix NP [address] [place] [address] Nurse PractitionerW[facility]01/26/23 Jaymie Phoenix NP [address] [place] [address] Nurse PractitionerW[facility]05/13/23Team MemberRelationshipSpecialtyStart DateEnd Date Rohan Rodríguez MD [address] [place] [address] PCP - [facility]05/13/23 Jaymie Phoenix NP [address] [place] [address] Nurse PractitionerW[facility]01/26/23 Jaymie Phoenix NP [address] [place] [address] Nurse PractitionerW[facility]05/13/23Team MemberRelationshipSpecialtyStart DateEnd Date Rohan Rodríguez MD [address] [place] [address] PCP - [facility]05/13/23 Jaymie Phoenix NP [address] [place] [address] Nurse PractitionerW[facility]01/26/23 Jaymie Phoenix NP [address] [place] [address] Nurse PractitionerW[facility]05/13/23Team MemberRelationshipSpecialtyStart DateEnd Date Rohan Rodríguez MD [address] [place] [address] PCP - [facility]05/13/23 Jaymie Phoenix NP [address] [place] [address] Nurse PractitionerW[facility]01/26/23 Jaymie Phoenix NP [address] [place] [address] Nurse PractitionerW[facility]05/13/23Team MemberRelationshipSpecialtyStart DateEnd Date Rohan Rodríguez MD [address] [place] [address] [facility] - [facility] Medicine05/13/23 Jaymie Phoenix NP [address] [place] [address] Nurse PractitionerW[facility]01/26/23 Jaymie Phoenix NP [address] [place] [address] Nurse PractitionerW[facility]05/13/23Team MemberRelationshipSpecialtyStart DateEnd Date Rohan Rodríguez MD [address] [place] [address] PCP - [facility]05/13/23 Jaymie Phoenix NP [address] [place] [address] Nurse PractitionerW[facility]01/26/23 Jaymie Phoenix NP [address] [place] [address] Nurse PractitionerW[facility]05/13/23Team MemberRelationshipSpecialtyStart DateEnd Date Rohan Rodríguez MD [address] [place] [address] PCP - [facility]05/13/23 Jaymie Phoenix NP [address] [place] [address] [facility] Uygfskpg32/19/23 Jaymie Phoenix NP [address] [place] [address] Nurse PractitionerW[facility]05/13/23Team MemberRelationshipSpecialtyStart DateEnd Date oRhan Rodríguez MD [address] [place] [address] PCP - GeneralW[facility]05/13/23 Jaymie Phoenix NP [address] [place] [address] Nurse PractitionerW[facility]01/26/23 Jaymie Phoenix NP [address] [place] [address] Nurse PractitionerW[facility]05/13/23 Team Status: Active Member Role Status Dates Jaymie Phoenix , [employer] DES[employer]ER[employer]C Primary Care Provider Active Team Status: Active Member Role Status Dates Jaymie Phoenix , [employer] DES[employer]ER[employer]C Primary Care Provider Active Start: August 29, 2024 Francisco Judge ProviderActiveStart: August 29, 2024 Team Status: Active Member Role Status Dates Jaymie Phoenix , [employer] DES[employer]ER[employer]C Primary Care Provider Active Start: October 10, 2024 Jaymie Phoenix WEDDING DESIGNER-CAttending ProviderActiveStart: October 10, 2024 Team Status: Inactive Member Role Status Dates Jaymie Phoenix , [employer] DES[employer]ER[employer]C Primary Care Provider Active Start: October 31, 2024 End: October 31, 2024Jaymie Phoenix WEDDING DESIGNER-CAttending ProviderActiveStart: October 31, 2024 End: October 31, 2024Team MemberRelationshipSpecialtyStart DateEnd Date Shaikh Marquez MD PCP - GeneralInternal Medicine Rohan Rodríguez MD PCP - GeneralFamily Medicine Rohan Rodríguez MD PCP - GeneralFamily Medicine05/13/23 Jaymie Phoenix NP [facility] Evtyawqc78/19/23 Jaymie Phoenix NP Nurse Pract[facility]erW[facility]05/13/23Team MemberRelationshipSpecialtyStart DateEnd Date Rohan Rodríguez MD PCP - [facility] Medicine05/13/23 Jaymie Phoenix NP [facility] Hnldhuno02/19/23 Jaymie Phoenix NP [facility] Medicine05/13/23Team MemberRelationshipSpecialtyStart DateEnd Date Shaikh Marquez MD PCP - GeneralInternal Medicine Rohan Rodríguez MD PCP - GeneralFamily Medicine Rohan Rodríguez MD PCP - GeneralFamily Medicine05/13/23 Jaymie Phoenix NP [facility] Wdfjwuea66/19/23 Jaymie Phoenix NP [facility] Pract[facility]erW[facility]05/13/23Team MemberRelationshipSpecialtyStart DateEnd Date Rohan Rodríguez MD PCP - GeneralFamily Medicine Rohan Rodríguez MD PCP - GeneralFamily Medicine05/13/23 Jaymie Phoenix NP [facility] Dbixdynx14/19/23 Jaymie Phoenix NP [facility]05/13/23Team MemberRelationshipSpecialtyStart DateEnd Date Shaikh Marquez MD PCP - GeneralInternal Medicine Rohan Rodríguez MD PCP - GeneralFamily Medicine Rohan Rodríguez MD PCP - [facility]05/13/23 Jaymie Phoenix NP [facility]01/26/23 Jaymie Phoenix NP Nurse [facility]05/13/23Team MemberRelationshipSpecialtyStart DateEnd Date Rohan Rodríguez MD PCP - [facility]05/13/23 Jaymie Phoenix NP [facility]01/26/23 Jaymie Phoenix NP Nurse [facility]05/13/23 Reason for Visit (unrecogniz ed section and content) ReasonCommentsMed RefillReasonCommentsMed RefillReasonOnset DateCommentsMed Ltglpe4106/14/2024ReasonCommentsMedicare Annual Wellness Visit InitialReason CommentsMed Change Request [...] BE BASED ON THE PRIMARY CLINICAL RECORDS. [employer] [facility]. provides no warranty or guarantee of the accuracy or completeness of information in this document."
--- NOTE | 2024-12-27 13:07 | PM.CN ---
Consult Note: HPI Data of Consult Patient: known to practice within the last 3 years Consult date: 12/27/24 Requesting Physician: Jenniffer Vazquez NP Primary Care Provider: Jaymie Phoenix NP Consult Narrative Reason for consult: low back pain and LLE pain Narrative: Gertrudis Gagnon a pleasant 59 year old female presents for evaluation of worsening low back and left leg pain, previous pt of Dr Guidry. pain increasing over the last 6 months, noting pain today 7/10 aching. pain increased with standing, walking, sitting, lying, stairs, bending, and sleep. pt utilizing pregabalin 75mg BID, flexeril 10mg TID PRN. recently underwent lumbar MRI with results below. on 11/20/24 she underwent left L4-5 L5-S1 TFESI with 50% improvement for 1 week per pt, previously pain was radiating into left foot now stoppping above the knee. since last visit she underwent a left sij injection with preop pain 6/10 post op pain 6/10 until 3-4 days later, at this time pain has improved to 5/10. cc:: CC: Jenniffer Vazquez NP Review of Systems ROS Musculoskeletal Reports: back pain and joint pain PFSH PFSH Medical History Tobacco abuse ?Z72.0 - Tobacco use (ICD-10) COPD (chronic obstructive pulmonary disease) ?J44.9 - Chronic obstructive pulmonary disease, unspecified (ICD-10) Anxiety ?F41.9 - Anxiety disorder, unspecified (ICD-10) Depression ?F32.A - Depression, unspecified (ICD-10) High cholesterol ?E78.00 - Pure hypercholesterolemia, unspecified (ICD-10) HTN (hypertension) ?I10 - Essential (primary) hypertension (ICD-10) Family History Other Family history not known due to adoption Social History Within the past year, how often did you have a drink containing alcohol: monthly or less Within the past year, how many standard drinks containing alcohol did you have on a typical day: 1 or 2 Total score: 0 Score interpretation: A score less than 3 is consistent with normal alcohol consumption. Smoking status: Current every day smoker Non-prescribed substance use: denies use Previous occupational history: retired Are you now , , , , never or living with a partner: In a typical week, how many times do you talk on the telephone with family, friends, or neighbors: 3 or more times per week How often do you get together with friends or relatives: 3 or more times per week Little interest or pleasure in doing things: not at all Feeling down, depressed, or hopeless: not at all Feel stressed/tense/nervous/anxious/difficulty sleeping: not at all Do you think of yourself as: straight/heterosexual Gender Identity: female Meds Home Medications and Allergies Home Medications ?Medication ?Instructions ?Recorded ?Confirmed ?Type amitriptyline 100 mg tablet 100 mg PO QPM 12/25/23 12/11/24 History lamotrigine 150 mg tablet 150 mg PO DAILY 12/25/23 12/11/24 History lamotrigine 200 mg tablet 200 mg PO QPM 12/25/23 12/11/24 History meloxicam 15 mg tablet 15 mg PO QAM 12/25/23 11/20/24 History Held on 12/28/23. Instructions: Resume on 01/04/24. hold while taking medrol dose pack omeprazole 40 mg capsule,delayed 40 mg PO DAILY 12/25/23 12/11/24 History release prazosin 2 mg capsule 2 mg PO QPM 12/25/23 12/11/24 History propranolol 40 mg tablet 40 mg PO BID 12/25/23 12/11/24 History quetiapine 100 mg tablet 300 mg PO DAILY 12/25/23 12/11/24 History spironolactone 50 mg tablet 50 mg PO QAM 12/25/23 12/11/24 History prazosin 1 mg capsule mg 06/28/24 History cariprazine 4.5 mg capsule 4.5 mg PO DAILY 09/14/24 12/11/24 History (Delmi) cyclobenzaprine 10 mg tablet 10 mg PO TID PRN muscle spasm #90 09/14/24 12/11/24 Rx tabs simvastatin 40 mg tablet 40 mg PO DAILY 09/14/24 12/11/24 History pregabalin 75 mg capsule (Lyrica) 75 mg PO BID 11/29/24 12/11/24 History Allergies Allergy/AdvReac Type Severity Reaction Status Date / Time prednisone Allergy Severe Anaphylaxis Verified 12/11/24 07:02 Penicillins AdvReac Severe Anaphylaxis Verified 12/11/24 07:02 Exam Constitutional Documenting provider has reviewed patient's vital signs: yes Common normals: no apparent distress, oriented x3, healthy appearing, alert and well nourished General appearance: cooperative HENMT Common normals: normocephalic, hearing grossly normal bilaterally and moist oral mucous membranes Head and scalp: normocephalic Eye Common normals: PERRL Pupil: PERRL Neck & C-Spine Common normals: full ROM General: normal visual inspection Chest Common normals: inspection of chest normal Respiratory Common normals: normal respiratory effort, no retractions and no use of accessory muscles Back & Pelvis Lumbar spine/lower back: pain with ROM and lumbar spinal tenderness Sacroiliac joints: SI joint(s) abnormal Other: left sij positive natasha(patricks), gaenslens, thigh thrust, compression test Neuro Common normals: oriented x3 Sensorium/orientation: alert Psych Common normals: mental status grossly normal, thought process normal, cooperative, affect normal, speech normal and activity/motor behavior normal Speech: normal speech Thought process: normal thought process Results Imaging Lumbar MRI: Attestation: I have reviewed the pertinent imaging results. Radiologist's impression: Lumbar vertebral heights, alignment unremarkable. Bone marrow signal is unremarkable with minimal endplate marrow changes L2-L3 appearing predominantly T2 hyperintense and T1 hypointense. Intermargin plate spurring notably L1-L4. Minimal anterolisthesis ascending L5-S1 and from L1 through L4. Conus medullaris service normally mid L2. Paraspinal soft tissues are unremarkable. T12-L1: Unremarkable. L1-2: Disc desiccation. No significant disc disease central canal or neural foramen narrowing identified. L2-3: Broad-based disc bulge with moderate facet arthropathy. Trace facet joint effusion. Mild left greater than right neural foramina narrowing. Canal is patent. L3-L4: Broad-based disc bulge with qetz-io-jwltynlk facet arthropathy. Moderate left neural from narrowing ofjy-id-mrlhrlxb right neural from narrowing. L4-5: Disc desiccation with moderate facet arthropathy. Minimal endplate spurring extending both foramina regions causing mild right moderate left neural foraminal narrowing. L5-S1: Circumferential disc bulge with superimposed subarticular extrusion measuring 9 x 6 mm. This contacts the traversing left S1 nerve root. Otherwise mild left moderate moderate right-sided neural foraminal narrowing. Moderate facet arthropathy. Additional Findings Additional findings: If on a controlled substance or opioids, I have checked an [place] report on this patient and there are no aberrancies noted in the prescribing history.??If on a controlled substance or opioid a drug screen was completed and reviewed within the last year, and if there has not been a drug screen completed we ordered one today to monitor higher risk, state monitored pain medication use. As part of providing excellent, safe, comprehensive care, the following was completed at our patient's visit: 1. A medication reconciliation and review to ensure accurate knowledge of current/active medications, including asking our patients to inform us about any glaw-cny-wdsuzyv medications or herbal remedies/nutritional supplements/alternative remedies. 2. A review to specifically ensure our patients have had annual screening for screening for depression, screening for tobacco use, and screening for unhealthy alcohol use. For concerning screenings had a discussion with the patient, provided patient education, and recommended follow-up with primary care provider when appropriate. If patient noted with a risk of falling, they received education on strength, gait, and balance training to prevent future risk of falling. Portions of this note may have been carried over from the previous visit and updated as appropriate. Please note this office utilizes paper charting in addition to the electronic medical record. A list of current medications, vitals, and PMH is available there as the clinical staff outside of myself do not have access to [employer] charting during the clinic day operations. As part of providing quality comprehensive care the current medications, vitals, and PMH were reviewed in the paper chart. Assessment and Plan Assessment and Plan (1) Sacroiliitis: Assessment and Plan: 12-11-24 left SIJ injection with no relief while anesthetized, mild ongoing relief per pt (2) Lumbar radiculopathy: Assessment and Plan: ?11/20/24 left L4-5 L5-S1 TFESI >50% improvement for 1 week (3) Lumbar stenosis with neurogenic claudication: (4) Myalgia, other site: (5) Degenerative disc disease (DDD) of lumbar region with axial back pain and referred sclerotomal pain: Plan upcoming NS consultation with Dr Muhammad as previously requested by the patient continue pregabalin 75mg BID continue flexeril 10mg TID prn pain/spasms f/u 3 months, sooner if needed
== END 2024-12-27 12:45 | disposition home or self-care (01) ==
LOC: PM 12:45
PROVIDERS: PCP Nurse Practitioner; Visit Provider Nurse Practitioner
DX: M46.1 Sacroiliitis, not elsewhere classified (principal); M48.062 Spinal stenosis, lumbar region with neurogenic claudication; M51.360 Other intervertebral disc degeneration, lumbar region with discogenic back pain only; M79.18 Myalgia, other site
CPT/HCPCS: G0463

== ENCOUNTER 2025-02-05 07:31 | Day surgery (SDC) | payer MEDICARE, SELFPAY ==
--- OUTSIDE RECORDS SUMMARY | 2024-02-16 03:30 | XMS_ITS ---
Author Organization The [facility] in [place] Address [address] [place] [address] Care Team Providers Care Tube Drawer Name Role Phone Jaymie Phoenix CNP Primary Care Provider Unavail able Jackson Moralez Unavailable [phone] Allergies Allergen (clinical drug ingredient) Drug/Non Drug Allergy documented on EMR Reaction Allergy Type Onset Date Status prednisone predniSONE Intensol shortness of breath Drug Al lergy ActivePenicillinshortness of breath,swellingDrug AllergyActive REASON FOR VISIT COPD/Pneumonia [facility] F/U Medications Medication SIG (Take, Route, Frequency, Duration) Notes Start Date End Date Status Propranolol HCl 40 MG 1 tablet Orally Once a day ActivePregabalin 100 MG1 capsule Orally Once a dayActiveSpironolactone 50 MG1 tablet Orally Once a dayActiveSimvastatin 40 MG1 tablet in the evening Orally Once a dayActiveQUEtiapine Fumarate 400 MG1 tablet at bedtime Orally Once a day ActiveMeloxicam 15 MG1 tablet Orally Once a dayActivelamoTRIgine 100 MG1 tablet Orally Once a dayActivePrazosin HCl 2 MG1 capsule at bedtime Orally Once a day ActiveOmeprazole 40 MG1 capsule 30 minutes before morning meal Orally Once a day ActivelamoTRIgine 200 MG1 tablet Orally Once a dayActiveAlbuterol Sulfate HFA 108 (90 Base) MCG/ACT2 puffs as needed Inhalation every 4 hrsActiveBreztri Aerosphere 160/9/4.8 mcg2 puffs inhalation BID; Duration: 30 daysRinse after use 07/16/2022ctiveAmitriptyline HCl 100 MG1 tablet at bedtime Orally Once a day ActiveVitamin D3 125 MCG (5000 UT)as directed OrallyActivetiZANidine HCl 4 MG1 tablet as needed Orally Three times a dayActive Social History Tobacco Use: Social History Observation Description Date Details (start date - stop date) Current Smoker NA - NA Tobacco Control (Standard) Question Answer Notes Tobacco use: Current every day smoker Additional Findings: Tobacco userHeavy cigarette smoker (20-39 cigs/day) Encounters Encounter Location Date Provider Diagnosis Pulmonary Medicine [address] [address] 02/16/2024 Jackson Moralez Plan Of Treatment No Information Procedure Notes * CategorySub-CategoryDetailNotesPFTData:05/29/2022-FEV1/FVC: 83%-FEV1: 71%-FVC: 66%-Bronchodilator response: Paradoxical-RV: 98%-T%-DLCO: 41%-Flow-volume loop: Moderate restrictionAlpha-1 AntitrypsinScreening Date: 06/25/2022enotype:MM Progress Notes * Gertrudis SRINIVASAN IDOB:[birth year] (59 yo F)Acc No.[id number]:02/16/2024 UNLOCKED PROGRESS NOTE Progress Note Patient: Gertrudis BAH I :?Jackson Moralez, DODOB:1965???Age:58 Y ???Sex:FemaleDate:02/16/2024Phone:[phone]:[address] [place], [place] [id number]:Jaymie Phoenix CNP Subjective: * Chief Complaints: * 1 . COPD/Pneumonia [facility] F/U. * HPI: ???General:?Patient is being seen after a follow up after a recent hospitalization on 12/24/2023 at [facility] for Acute Exacerbation of COPD. Patient has not been seen since 07/16/2022 in our office. Patient did not show her her last appointment with our office on 06/15/2023. 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 * Surgical History: c esarean section , hysterectomy, laparoscopically assisted , tubal ligation . * Hospitalization/Major Diagno stic Procedure: C OPD Exacerbation-[facility] 12/24/2023. * Family History: N on-Contributory. Patient is Adopted. * Social History: ???Tobacco Use:?Tobacco Control (Standard)?Tobacco use:?Current every day smoker ?Additional Findings: Tobacco user?Heavy cigarette smoker (20-39 cigs/day) ?LM: Additional Tobacco Questions?Number of Years Pt Smoked:?42 ?Number of Packs per Day:?1 ???Miscellaneous:?Caffeine: more than 4 cups per day. [...] Orally Once a day , Taking Breztri Aerosphere(Opdrkpc-Dsiytxkilru-Yhtunojehx) 160/9/4.8 mcg aerosol 2 puffs inhalation BID [...] MCG (5000 UT) Tablet as directed Orally , Discontinued Breztri Aerosphere(Cpijhns-Xpbypvsetls-Ogbgohwork) 160/9/4.8 mcg aerosol 2 puffs inhalation BID , Notes to Pharmacist: Rinse after use * Allergies: p redniSONE Intensol: shortness of [...] Electronic signature of Jackson Moralez DO on 02/05/2025 at 07:34 AM ESTSign off status: PendingVisit Status:?N/S N/C (No Show/No Charge) * Provider: Osorio Moralez DO Date: 0 02/16/2024 Generated for Printing/Faxing/eTransmitting on:?02/05/2025 07:34 AM EST History and Physical Notes * HPI (History of Present Illness) CategorySub-CategoryDetailNotesCategory NotesGeneralPatient is being seen after a follow up after a recent hospitalization on 12/24/2023 at [facility] for Acute Exacerbation of COPD. Patient has not been seen since 07/16/2022 in our office. Patient did not show her her last appointment with our office on 06/15/2023.
--- OUTSIDE RECORDS SUMMARY | 2025-02-05 07:34 | XMS_ITS | CCD ---
Author Organization [facility] Care Team Providers Care Sonography Technician Name Role Phone JAYMIE PHOENIX Primary Care Physician Bryson FERRER Attending Unavailable JAYMIE PHOENIX J Referring Unavailabl e NILL, Bryson Hernandez Attending Unavailable Aichholz, Tracy L Referring Unavailable NILL, Bryson Hernandez Attending Unavailable NILL, Bryson Hernandez Attending Unavailable NILL, Bryson Hernandez Attending Unavailable AICHHOLZ, TOOLROOM CHECKER JAYMIE Primary Care Unavailable ALLAN ., DR JIM Mcdonnell Attending Unavailable ALLAN ., DR JIM Mcdonnell Admitting Unavailable ALLAN ., DR JIM Mcdonnell Consulting Unavailable ROBINSON ., GLENROY Admitting Unavailable ROBINSON ., GLENROY Attending Unavailable SJ SOLER Consulting Unavailable AICHHOLZ, TOOLROOM CHECKER JAMYIE Primary Care Unavailable MENDEZ ., MR DEMETRIUS Admitting Unavailable MENDEZ ., MR DEMETRIUS Attending Unavailable AICHHOLZ, TOOLROOM CHECKER JAYMIE Primary Care Unavailable AICHHOLZ, TOOLROOM CHECKER JAYMIE Admitting Unavailable JUANITA, DR NADINE Caldwell Consulting Unavailable AICHHOLZ, TOOLROOM CHECKER JAYMIE Primary Care Unavailable AICHHOLZ, TOOLROOM CHECKER JAYMIE Attending Unavailable AICHHOLZ, TOOLROOM CHECKER JAYMIE Consulting Unavailable AICHHOLZ, TOOLROOM CHECKER JAYMIE Admitting Unavailable JUANITA, DR NADINE Caldwell Consulting Unavailable AICHHOLZ, TOOLROOM CHECKER JAYMIE Primary Care Unavailable AICHHOLZ, TOOLROOM CHECKER JAYMIE Attending Unavailable AICHHOLZ, TOOLROOM CHECKER JAYMIE Consulting Unavailable AICHHOLZ, TOOLROOM CHECKER JAYMIE Primary Care Unavailable NILL ., DR MASSEY Admitting Unavailable NILL ., DR MASSEY Attending Unavailable NILL ., DR MASSEY Consulting Unavailable SONDRA FELICIANO Consulting Unavailable ROBINSON ., GLENROY Admitting Unavailable ROBINSON ., GLENROY Attending Unavailable ROBINSON ., GLENROY Consulting Unavailable AICHHOLZ, TOOLROOM CHECKER JAYMIE Primary Care Unavailable ALLAN ., DR JIM Mcdonnell Attending Unavailable ALLAN ., DR JIM Mcdonnell Consulting Unavailable ALLAN ., DR JIM Mcdonnell Admitting Unavailable AICHHOLZ, TOOLROOM CHECKER JAYMIE Primary Care Unavailable MARIA FERNANDA SOSA Consulting Unavailable ALLAN ., DR JIM Mcdonnell Attending Unavailable ALLAN ., DR JIM Mcdonnell Consulting Unavailable ALLAN ., DR JIM Mcdonnell Admitting Unavailable AICHHOLZ, TOOLROOM CHECKER JAYMIE Primary Care Unavailable ALLAN ., DR JIM Mcdonnell Admitting Unavailable ALLAN ., DR JIM Mcdonnell Attending Unavailable ALLAN ., DR JIM Mcdonnell Consulting Unavailable AICHHOLZ, TOOLROOM CHECKER JAYMIE Primary Care Unavailable ALLAN ., DR JIM Mcdonnell Admitting Unavailable ALLAN ., DR JIM Mcdonnell Attending Unavailable AICHHOLZ, TOOLROOM CHECKER JAYMIE Primary Care Unavailable THORNE ., JENNY Consulting Unavailable ALLAN ., DR JIM Mcdonnell Admitting Unavailable ALLAN ., DR JIM Mcdonnell Attending Unavailable ALLAN ., DR JIM Mcdonnell Consulting Unavailable AICHHOLZ, TOOLROOM CHECKER JAYMIE Primary Care Unavailable ALLAN ., DR JIM Mcdonnell Admitting Unavailable ALLAN ., DR JIM Mcdonnell Attending Unavailable ALLAN ., DR JIM Mcdonnell Consulting Unavailable AICHHOLZ, TOOLROOM CHECKER JAYMIE Primary Care Unavailable THORNE ., JENNY Consulting Unavailable ALLAN ., DR JIM Mcdonnell Admitting Unavailable ALLAN ., DR JIM Mcdonnell Attending Unavailable AICHHOLZ, TOOLROOM CHECKER JAYMIE Primary Care Unavailable ALLAN ., DR JIM Mcdonnell Attending Unavailable ALLAN ., DR JIM Mcdonnell Consulting Unavailable ALLAN ., DR JIM Mcdonnell Admitting Unavailable AICHHOLZ, TOOLROOM CHECKER JAYMIE Primary Care Unavailable LAKSHMIPATHY ., NARENDRANEDWAR Consulting Evelyn vailable NILL ., DR MASSEY Consulting Unavailable NILL ., DR MASSEY Admitting Unavailable AICHHOLZ, TOOLROOM CHECKER JAYMIE Primary Care Unavailable NILL ., DR MASSEY Attending Unavailable AICHHOLZ, TOOLROOM CHECKER JAYMIE Admitting Unavailable AICHHOLZ, TOOLROOM CHECKER JAYMIE Attending Unavailable AICHHOLZ, TOOLROOM CHECKER JAYMIE Consulting Unavailable AICHHOLZ, TOOLROOM CHECKER JAYMIE Primary Care Unavailable DR MELISSA ROSENBERG Consulting Unavailable AICHHOLZ, TOOLROOM CHECKER JAYMIE Admitting Unavailable AICHHOLZ, TOOLROOM CHECKER JAYMIE Attending Unavailable AICHHOLZ, TOOLROOM CHECKER JAYMIE Consulting Unavailable AICHHOLZ, TOOLROOM CHECKER JAYMIE Primary Care Unavailable LORI FROST Consulting Unavailable ALLAN ., DR JIM Mcdonnell Attending Unavailable ALLAN ., DR JIM Mcdonnell Admitting Unavailable AICHHOLZ, TOOLROOM CHECKER JAYMIE Primary Care Unavailable AICHHOLZ, TOOLROOM CHECKER JAYMIE Primary Care Unavailable SAMSA ., MAGDALENA Admitting Unavailable SAMSA ., MAGDALENA Attending Unavailable SAMSA ., MAGDALENA Consulting Unavailable ALLAN ., DR JIM Mcdonnell Attending Unavailable ALLAN ., DR JIM Mcdonnell Admitting Unavailable ALLAN ., DR JIM Mcdonnell Consulting Unavailable AICHHOLZ, TOOLROOM CHECKER JAYMIE Primary Care Unavailable AICHHOLZ, TOOLROOM CHECKER JAYMIE Admitting Unavailable AICHHOLZ, TOOLROOM CHECKER JAYMIE Attending Unavailable AICHHOLZ, TOOLROOM CHECKER JAYMIE Consulting Unavailable AICHHOLZ, TOOLROOM CHECKER JAYMIE Primary Care Unavailable Aichholz THREE DIMENSIONAL ART INSTRUCTOR, Jaymie Unavailable Alma AMADOR, Sequeira Primary Care Provider Aichholz THREE DIMENSIONAL ART INSTRUCTOR, Jaymie Unavailable Anne AMADOR, Rohan Primary Care Provider Aichholz THREE DIMENSIONAL ART INSTRUCTOR, Jaymie Unavailable Alphonse Damian Attending Unavailab le Alphonse Damian Admitting Unavailab le Aichholz, Jaymie J Primary Care Unavailable SAUMYA BACK Attending Unavailable AICHHOLZ, JAYMIE Referring Unavailable AICHHOLZ, JAYMIE Attending Unavailable NAT HENDERSON Attending Unavailable AICHHOLZ, JAYMIE Attending Unavailable AICHHOLZ, JAYMIE Attending Unavailable Aichholz THREE DIMENSIONAL ART INSTRUCTOR-C, Jaymie J Primary Care Provider Alphonse Damian MD Attending Provider Aichholz THREE DIMENSIONAL ART INSTRUCTOR-C, Jaymie Danielle Attending Provider Mayela Merchant MD Attending Unavailable Aichholz THREE DIMENSIONAL ART INSTRUCTOR, Jaymie Unavailable Alma AMADOR, Sequeira Primary Care Provider Anne AMADOR, Rohan Primary Care Provider Anne AMADOR, Rohan Primary Care Provider Aicholervin THREE DIMENSIONAL ART INSTRUCTOR, Jaymie Unavailable Allergies Allergy ClassificationReported Allergen(s)Allergy TypeDate of OnsetReaction(s) Facility (20 sources)Penicillins; Translations: [penicillins]Drug joguxep10-16-1780 Dyspnea (finding), Weal (disorder), Hives, Shortness of breath, [facility]elling[facility] [place] ([place] sources)predniSONE; Translations: [prednisone]Drug Zjmbgvh38-15-0633Sgbtual (finding)[facility] [place] (1 source)prednisoLONEDrug AllergyThe [facility] [place] [facility] (20 sources)PrednisonePropensity to adverse rdmrtedwp89-20-2800FrwejboMNXA Healthcare (9 sources)PenicillinDrug Vxebxny98-96-8534FxgomCdddtfjceMetroHealth Parma Medical CenterComment on above:shortness of breath Medications Current Medications MedicationDrug Class(es)DatesSig (Normalized)Sig (Original)acetaminophen 325 mg / HYDROcodone bitartrate 5 mg oral tablet (3 sources)Opioid AgonistStart: 08-29-2024 End: 88-26-0308gguf 1 tablet by mouth onceHYDROcodone-acetaminophen ([place]) 5- 325 MG tablet Indications: Acute back pain with sciatica, unspecified laterality Take 1 tablet by mouth every 12 (twelve) hours if needed for severe pain for up to10 days 20 tablet 08/29/2024 09/08/2024 Activealbuterol 0.83 mg/ml inhalation solution (20 sources)beta2-Adrenergic AgonistStart: 50-82-7288rtod 2.5 mg by inhalation every four to six hours as neededAlbuterol Sulfate 2.5 mg /3 mL (0.083 %) solution for nebulization Active 2.5 MG INHALATION EVERY 4-6 HOURS as needed October 28, 2024 12:00am Complies with drug therapyStart: 49-83-1633imeu 1 puff(s) by inhalation every six hours as neededAlbuterol Sulfate 90 mcg/actuation HFA aerosol inhaler Active 2 PUFF INHALATION Every 6 hours as nee ded October 28, 2024 12:00am Complies with drug therapyStart: 04-19-2024 End: 43-76-8701froh 2 puff(s) by inhalation every six hours for wheezing albuterol HFA 90 mcg/act inhaler Indications: COPD mixed type (HCC) Inhale 2 puffs every 6 (six) hours if needed for shortness of breath or wheezing 18 g 04/19/2024 ActiveStart: 93-78-6644pibomtzvb (2.5 MG/3ML) 0.083% nebulizer solution Take 2.5 mg by nebulization every 6 (six) hours ifneeded for shortness of breath or wheezing 12/24/2023 Activealbuterol 0.833 mg/ml / ipratropium bromide 0.167 mg/ml inhalation solution (20 sources)Anticholinergic, beta2-Adrenergic AgonistStart: 75-03-0705soih 1 mL by inhalation every four to six hours as neededIpratropium-Albuterol 0.5 mg-3 mg(2.5 mg base)/3 mL solution for nebulization Active 3 ML INHALATION EVERY 4-6 HOURS as needed October 28, 2024 12:00am Complies with drug therapyStart: 34-88-7958vxxjgayzbqu-albuterol (Duo-Neb) 0.5-2.5 mg/3 mL nebulizer solution Take 3 mL by nebulization every 6 (six) hours if needed for wheezing or shortness of breath 12/28/2023 Activeamitriptyline hydrochloride 100 mg oral tablet (20 sources)Tricyclic AntidepressantStart: 26-48-5093Znlvtrbeytqwa 100 mg tablet Active 50 MG PO Daily at bedtime October 28, 2024 12:00am Complies with drug therapyStart: 01-26-2024 End: 67-57-2531qcmv 0.5 tablet by mouth at bedtimeamitriptyline (Elavil) 100 MG tablet Indications: Fibromyalgia Take 0.5 tablets (50 mg) by mouth atbedtime 45 tablet 1 07/31/2024 10/29/2024 ActiveStart: 05-05-2023 End: 40-97-5415mrvv 0.5 tablet by mouth at bedtimeamitriptyline (Elavil) 100 MG tablet Indications: Fibromyalgia Take 0.5 tablets (50 mg) by mouth atbedtime 45 tablet 1 10/26/2023 ActiveStart: 42-63-7754uzubqbojpjtwn 100 mg oral tablet 50 mg = 0.5 tab(s), Oral, Once a day (at bedtime), Refills(s) 0 Start Date: 01/22/22 Status: Ordered End: 40-91-1137iuvi 1 tablet by mouth at bedtimeamitriptyline (Elavil) 50 MG tablet Take 50 mg by mouth at bedtime 01/03/2024 Discontinued (Therapycompleted) atorvastatin 20 mg oral tablet (20 sources)HMG-CoA Reductase InhibitorStart: 04-10-2024 End: 44-25-1829fpnm 1 tablet by mouth once daily at bedtimeAtorvastatin 20 mg tablet Active 20 MG PO Daily at bedtime October 28, 2024 12:00am Complies with drug therapyStart: 05-18-2023 End: 29-39-7391rpkj 1 tablet by mouth at bedtimeatorvastatin (Lipitor) 20 MG tablet Indications: Mixed hyperlipidemia (CMS/HCC) Take 1 tablet (20 mg) by mouth at bedtime 30 tablet 3 01/03/2024 ActiveStart: 02-28-2023 End: 64-65-3361ktsd 1 tablet by mouth in the eveningatorvastatin (Lipitor) 20 MG tablet Indications: Mixed hyperlipidemia (CMS/HCC) Take 1 tablet (20 mg) by mouth in the evening 30 tablet 2 02/28/2023 03/30/2023 Wjkjiz779 actuat budesonide 0.16 mg/actuat / formoterol fumarate 0.0048 mg/actuat / glycopyrrolate 0.009 mg/actuat metered dose inhaler (20 sources)Corticosteroid, beta2-Adrenergic AgonistStart: 10-28-2024 Hmjrhkjkoc-Tpyzwsrf-Geljnxrcnh (Breztri Aerosphere) 160-9-4.8 mcg/actuation HFA aerosol inhaler Active 2 INH INHALATION Twice daily October 28, 2024 12:00am Complies with drug therapyStart: 07-31-2024 End: 71-03-1589xzwi 2 puff(s) by inhalation in the morning, then take 2 puff(s) by inhalation at bedtime, then take 2 puff(s) by inhalation in the morning, then take 2 puff(s) by inhalation at ercyvqtKywqtij-Fbddnawqrri-Hdvebirdna (Breztri Aerosphere) 160-9-4.8 MCG/ACT aerosol Indications: COPD mixed type (HCC) Inhale 2 puffs in the morning and 2 puffs before bedtime. Inhale 2 puffs in the morning and 2 puffs before bedtime. 32 g 1 07/31/2024 10/29/2024 ActiveStart: 09-29-2022 End: 76-09-9015pjic 2 puff(s) by inhalation in the morningBrechantelli Aerosphere 160-9-4.8 MCG/ACT aerosol Inhale 2 puffs in the morning and 2 puffs before bedtime. 09/29/2022 07/31/2024 Discontinued (Reorder)bumetanide 0.5 mg oral tablet (20 sources)Loop DiureticStart: 59-59-6436sltv 1 tablet by mouth once daily Bumetanide 0.5 mg tablet Active 0.5 MG PO Daily October 28, 2024 12:00am only MWF Complies withdrug therapyStart: 06-07-2023 End: 12-17-6592gykicepzyw (Bumex) 0.5 MG tablet Indications: Bilateral lower extremity edema Take M W F only 27 tablet 1 07/31/2024 ActiveStart: 03-25-2023 End: 78-71-8562aits 1 tablet by mouth in the morningbumetanide (Bumex) 0.5 MG tablet Indications: Bilateral lower extremity edema Take 1 tablet (0.5 mg) by mouth in the morning for 14 days. 14 tablet 0 03/25/2023 04/08/2023 Active cetirizine hydrochloride 10 mg oral tablet (18 sources)Histamine-1 Receptor AntagonistStart: 04-19-2024 End: 71-71-7424wfli 1 tablet by mouth once dailyCetirizine 10 mg tablet Active 10 MG PO Daily October 28, 2024 12:00am Complies with drug therapy cholecalciferol 0.125 mg oral tablet (20 sources)Vitamin DStart: 25-74-2932ggqq 1 tablet by mouth once daily Cholecalciferol (Vitamin D3) 125 mcg (5,000 unit) tablet Active 125 MCG PO Daily October 28, 2024 12:00am Complies with drug therapycyclobenzaprine hydrochloride 5 mg oral tablet (3 sources)Muscle RelaxantStart: 99-40-9035bxqc 1 tablet by mouth every eight hours [...] mg oral tablet (20 sources)Nonsteroidal Anti-inflammatory DrugStart: 83-80-0899rrww 1 tablet by mouth every eight hours as neededibuprofen 800 MG tablet Take 800 mg by mouth every 8 (eight) hours if needed 01/08/2023 ActivelamoTRIgine 100 mg oral tablet (20 sources)Mood Stabilizer, Anti-epileptic AgentStart: 63-05-7494tuef 1 tablet by mouth once dailyLamotrigine 200 mg tablet Active 200 MG PO Daily October 28, 2024 12:00am Complies with drug therapyStart: 98-90-0450irha 1 tablet by mouth once dailyLamotrigine 100 mg tablet Active 100 MG PO Daily October 28, 2024 12:00am Complies with drug therapyStart: 05-04-2023 End: 23-37-5610xrcl 1 tablet by mouth once dailylamoTRIgine (LaMICtal) 150 MG tablet Take 150 mg by mouth Daily 05/04/2023 01/03/2024 Discontinued (Therapy completed)Start: 66-47-1787typw 1 tablet by mouth once daily in [...] tablet (20 sources)Nonsteroidal Anti-inflammatory DrugStart: 12-05-2023 End: 49-89-6687uelg 1 tablet by mouth once dailyMeloxicam 15 mg tablet Active 15 MG PO Daily October 28, 2024 12:00am Complies with drug therapyStart: 03-15-2023 End: 26-90-0385ecbp 1 tablet by mouth in the morningmeloxicam (Mobic) 15 MG tablet Indications: Fibromyalgia Take 1 tablet (15 mg) by mouth in the morning. 30 tablet 5 03/15/2023 04/14/2023 ActiveStart: 58-46-7694hbsn 1 tablet by mouth once dailymeloxicam 15 mg Tab 15 mg = 1 tab(s), Oral, Daily, Refills(s) 0 Start Date: 01/22/22 Status: Orderedmontelukast 10 mg oral tablet (20 sources)Leukotriene Receptor AntagonistStart: 08-24-2023 End: 81-05-5332tukv 1 tablet by mouth once daily at bedtimeMontelukast 10 mg tablet Active 10 MG PO Daily at bedtime October 28, 2024 12:00am Complies with drug therapyomeprazole 40 mg delayed release oral capsule (20 sources)Proton Pump InhibitorStart: 05-05-2023 End: 31-66-2308vpky 1 capsule by mouth once dailyOmeprazole 40 mg capsule,delayed release(DR/EC) Active 40 MG PO Daily October 28, 2024 12:00am Complies with drug therapyStart: 17-95-3021gpxp 1 capsule by mouth once dailyomeprazole 40 mg Cap-DR 40 mg = 1 cap(s), Oral, Daily, Refills(s) 0 Start Date: 01/22/22 Status: Orderedprazosin 1 mg oral capsule (20 sources)alpha-Adrenergic BlockerStart: 09-32-5013gnqt 1 capsule by mouth once daily at bedtimePrazosin 1 mg capsule Active 2 MG PO Daily at bedtime October 28, 2024 12:00am Complies with drug therapyStart: 18-42-0653kqde 1 capsule by mouth at bedtimeprazosin (Minipress) 1 MG capsule Take 1 mg by mouth at bedtime 11/16/2023 ActiveStart: 20-32-4244cprg 1 capsule by mouth once daily at bedtimePrazosin 2 mg capsule Active 2 MG PO Daily at bedtime October 28, 2024 12:00am Complies with drug therapypregabalin 100 mg oral capsule (20 sources)Start: 54-04-2272ztqk 1 capsule by mouth three times dailyPregabalin 100 mg capsule Active 100 MG PO Three times daily October 28, 2024 12:00am Complies with drug therapyStart: 12-31-2023 End: 31-35-3320gbzz 1 capsule by mouth in the morningpregabalin (Lyrica) 100 MG capsule Indications: Fibromyalgia Take 1 capsule (100 mg) by mouth in the morning and 1 capsule (100 mg) before bedtime. 60 capsule 2 07/31/2024 Active Start: 39-69-7201heuu 1 capsule by mouth in the morningpregabalin (Lyrica) 100 MG capsule Indications: Fibromyalgia Take 1 capsule (100 mg) by mouth in the morning and 1 capsule (100 mg) before bedtime. 60 capsule 5 06/28/2023 Active Start: 77-57-0286gton 1 capsule by mouth twice dailypregabalin (Lyrica) 100 MG capsule Indications: Fibromyalgia TAKE 1 CAPSULE BY MOUTH TWICE DAILY 60capsule 5 01/06/2023 ActiveStart: 23-50-9614zepw 1 capsule by mouth twice daily pregabalin 100 mg Cap 100 mg = 1 cap(s), Oral, BID, Refills(s) 0 Start Date: 01/22/22 Status: Orderedpropranolol hydrochloride 40 mg oral tablet (20 sources)beta-Adrenergic BlockerStart: 01-26-2024 End: 97-47-2227jzdv 1 tablet by mouth twice dailyPropranolol 40 mg tablet Active 40 MG PO Twice daily October 28, 2024 12:00am Complies with drug therapy Start: 12-25-2023 End: 28-42-9096ysch 1 tablet by mouth in the morningpropranolol (Inderal) 40 MG tablet Indications: Personal history of other diseases of the nervous system and sense organs Take 1 tablet (40 mg) by mouth in the morning and 1 tablet (40 mg) before bedtime. 60 tablet 1 12/25/2023 ActiveStart: 35-91-3996xrxn 1 tablet by mouth in the morningpropranolol (Inderal) 40 MG tablet Indications: Personal history of other diseases of the nervous system and sense organs Take 1 tablet (40 mg) by mouth in the morning and 1 tablet (40 mg) before bedtime. 60 tablet 5 06/28/2023 ActiveStart: 62-76-3483sfdf 1 tablet by mouth twice dailypropranolol (Inderal) 40 MG tablet Indications: Personal history of other diseases of the nervous system and sense organs TAKE 1 TABLET BY MOUTH TWICE DAILY 60 tablet 5 01/06/2023 ActiveStart: 74-89-8032dcbt 1 tablet by mouth twice dailypropranolol 40 mg Tab 40 mg = 1 tab(s), Oral, BID, Refills(s) 0 Start Date: 01/22/22 Status: OrderedQUEtiapine 300 mg oral tablet (20 sources)Atypical AntipsychoticStart: 71-46-2284svmc 1 tablet by mouth once daily at bedtimeQuetiapine 300 mg tablet Active 300 MG PO Daily at bedtime October 28, 2024 12:00am Complies with drug therapyStart: 58-40-9133rerj 1 tablet by mouth at bedtimeQUEtiapine (SEROquel) 300 MG tablet Take 300 mg by mouth at bedtime 05/11/2024 ActiveStart: 01-22-2022 End: 44-21-1564IZFOlmue 100 mg Tab 1 tabs QAM and 4 tabs qpm, Refills(s) 0 Start Date: 01/22/22 Status: Ordered End: 55-59-9445tnhv 1 tablet by mouth at bedtimeQUEtiapine (SEROquel) 400 MG tablet Take 400 mg by mouth at bedtime 07/31/2024 Discontinuedsimvastatin 40 mg oral tablet (1 source)HMG-CoA Reductase InhibitorStart: 99-83-3280baki 1 tablet by mouth once daily at bedtimesimvastatin 40 mg Tab 40 mg = 1 tab(s), Oral, Once a day (at bedtime), Refills(s) 0 Start Date: 01/22/22 Status: Orderedspironolactone 50 mg oral tablet (20 sources)Aldosterone AntagonistStart: 01-26-2024 End: 05-35-7294ibsy 1 tablet by mouth once dailySpironolactone 50 mg tablet Active 50 MG PO Daily October 28, 2024 12:00am Complies with drug therapy Start: 12-11-7897wwuh 1 tablet by mouth in the morningspironolactone (Aldactone) 50 MG tablet Indications: Localized edema Take 1 tablet (50 mg) by mouthin the morning. 30 tablet 5 09/24/2023 ActiveStart: 03-15-2023 End: 93-75-7526bsre 1 tablet by mouth in the morningspironolactone (Aldactone) 50 MG tablet Indications: Localized edema Take 1 tablet (50 mg) by mouthin the morning. 30 tablet 5 03/15/2023 04/14/2023 ActiveStart: 09-09-2036bjzm 1 tablet by mouth once dailyAldactone 50 mg Tab 50 mg = 1 tab(s), Oral, Daily, Refills(s) 0 Start Date: 01/22/22 Status: OrderedtiZANidine 4 mg oral tablet (20 sources)Central alpha-2 Adrenergic AgonistStart: 58-54-1181ojet 1 tablet by mouth every twelve hours as neededTizanidine 4 mg tablet Active 4 MG PO Every 12 hours as needed for muscle spasticity October 28, 2024 12:00am Complies with drug therapyStart: 01-03-2024 End: 31-59-9822tdpw 1 tablet by mouth oncetiZANidine (Zanaflex) 4 MG tablet Indications: Fibromyalgia Take 1 tablet (4 mg) by mouth every 12 (twelve) hours if needed for muscle spasms 60 tablet 2 09/29/2024 10/29/2024 ActiveStart: 05-05-2023 End: 70-21-4190pdie 1 tablet by mouth every eight hours for muscle spasms tiZANidine (Zanaflex) 4 MG tablet Indications: Fibromyalgia Take 1 tablet (4 mg) by mouth every 8 (eight) hours if needed for muscle spasms 90 tablet 5 10/26/2023 11/25/2023 ActiveStart: 61-03-5150xche 1 tablet by mouth every eight hours as needed for muscle spasmstiZANidine 4 mg Tab 4 mg = 1 tab(s), Oral, q8hr, PRN Spasm, Refills(s) 0 Start Date: 01/22/22 Status: Orderedtake 1 tablet by mouth once dailytiZANidine (Zanaflex) 4 MG tablet Take 4 mg by mouth 1 (one) time each day 0 Activevarenicline 1 mg oral tablet (20 sources)Partial Cholinergic Nicotinic AgonistStart: 53-51-5487sgwl 1 tablet by mouth twice dailyVarenicline Tartrate 1 mg tablet Active 1 MG PO Twice daily October 28, 2024 12:00am Complies with drug therapyStart: 07-31-2024 End: 44-92-3248swky 1 tablet by mouth twice dailyVarenicline Tartrate, Starter, 0.5 MG X 11 & 1 MG X 42 tablet therapy pack Indications: Tobaccodependence Take 1 tablet by mouth Daily 0.5mg once a day for 3 days, then 0.5mg twice a day for 4 days, then 1mg twice a day 53 each 08/06/2024 ActiveStart: 06-26-2024 End: 89-42-1668dbzo 1 tablet by mouth once dailyVarenicline Tartrate, Starter, (Chantix Starting Month ) 0.5 MG X 11 & 1 MG X 42 tablet therapy pack Indications: Tobacco dependence Take 1 tablet by mouth Daily Take as directed 53 each 07/31/2024 08/06/2024 DiscontinuedVitamin D3 5000 intl units (125 mcg) oral tab (1 source)Start: 07-21-0449xneu 1 tablet by mouth once dailyVitamin D3 5000 intl units (125 mcg) oral tab 125 mcg = 1 tab(s), Oral, Daily, Refills(s) 0 Start Da te: 01/22/22 Status: Ordered Problems Active Problems Problem ClassificationProblemDateDocumented DateEpisodic/ChronicAnxiety disorders (20 sources)Mixed anxiety and depressive disorder; Translations: [Anxiety disorder, unspecified]Onset: 02-18-2023 Resolved: [id number]hz kidney disease (20 sources)Chronic kidney disease stage 3A ; Translations: [Chronic kidney disease, stage 3a (HCC)]Onset: 06-07-2024 Resolved: 210928-25-5296TbzknbeZtcrwgg obstructive pulmonary disease and bronchiectasis (20 sources)Chronic obstructive pulmonary disease, unspecified; Translations: [Chronic obstructive lung disease]Onset: 05-29-2022 Resolved: 66-30-6879XarnhzoTbhsxfn obstructive pulmonary disease and bronchiectasis (1 source)Bronchitis, not specified as acute or chronic; Translations: [BRONCHITIS NOT SPEC ACUTE/CHRON]Onset: 24-08-6562YqjskandKtdotcuhjy and other anemia (1 source)Other megaloblastic anemias, not elsewhere classified; Translations: [OTHER MEGALOBLASTIC ANEMIAS NEC]Onset: 10-12-1510LydnbrtpVyczbtpp mellitus without complication (4 sources)Hyperglycemia, unspecified; Translations: [HYPERGLYCEMIA UNSPECIFIED] Onset: 84-34-3843TzqsmuibYvhhkkchp of lipid metabolism (20 sources)Hyperlipidemia; Translations: [Hyperlipidemia, unspecified]Onset: 05-08-2022 Resolved: 506858-11-2742YieutwrIaanmugtho disorders (20 sources)Gastroesophageal reflux disease; Translations: [Gastro-esophageal reflux disease without esophagitis]Onset: 03-10-2011 Resolved: 339103-13-3270DszhjekPjlmfswmk hypertension (20 sources)Essential hypertension; Translations: [Essential (primary) hypertension]Onset: 03-10-2011 Resolved: 909058-64-0056EisstdkMtnrw disorders and dislocations; trauma-related (20 sources)Derangement of left knee; Translations: [Unspecified internal derangement of left knee]Onset: 314143-01-4238RstaehnUhonvoermwq deficiencies (20 sources)Vitamin D deficiency; Translations: [Vitamin D deficiency, unspecified]Onset: 002800-97-0162StncybzDqnuknqjhlxues (20 sources)Osteoarthritis of knee; Translations: [Osteoarthritis of knee, unspecified]Onset: 02-18-2023 Resolved: 387698-16-1820KsnevknCuznk connective tissue disease (1 source)Other muscle spasm; Translations: [OTHER MUSCLE SPASM]Onset: 91-67-8983ClrimokkNybbz gastrointestinal disorders (1 source)Abnormal feces; Translations: [Other fecal abnormalities]Onset: 68-35-2748TrzsuyqeIbbku lower respiratory disease (1 source)Shortness of breath; Translations: [SHORTNESS OF BREATH]Onset: 44-60-2824PvpzbxnhKlhvi nervous system disorders (1 source)Other chronic pain; Translations: [OTHER CHRONIC PAIN]Onset: 11-94-9206JkpcitmIgrwj nervous system disorders (2 sources)Parkinsonism due to drug; Translations: [Other drug induced secondary parkinsonism]26-95-2748WhoatetGacgf nervous system disorders (2 sources)H/O: Disorder; Translations: [Personal history of other diseases of the nervous system and sense organs]83-33-0891KwfscwtnBhzdm nutritional; endocrine; and metabolic disorders (20 sources)Body mass index 40+ - severely obese; Translations: [Body mass index (BMI) 40.0-44.9, adult]Onset: 429073-64-7520NeyotdbIwllu nutritional; endocrine; and metabolic disorders (18 sources)Obesity; Translations: [Obesity, unspecified]Onset: 02-18-2023 54-92-7639OrxtavoAyifw nutritional; endocrine; and metabolic disorders (1 source)Obesity, unspecified; Translations: [OBESITY UNSPECIFIED]Onset: 92-38-3892IutxrriIohra nutritional; endocrine; and metabolic disorders (20 sources)Obesity caused by energy imbalance; Translations: [Morbid (severe) obesity due to excess calories]Onset: 622684-14-8045SmamhrgTyywh upper respiratory disease (20 sources)Allergic disposition; Translations: [Other allergic rhinitis]Onset: 227551-63-7261AwkysdaBdnozwvw codes; unclassified (1 source)Sleep apnea, unspecified; Translations: [SLEEP APNEA UNSPECIFIED] Onset: 80-80-6693VlbnvyhPflkclvm codes; unclassified (20 sources)Obstructive sleep apnea syndrome; Translations: [Obstructive sleep apnea (adult) (pediatric)]Onset: 477471-63-8103RgdhoqyZugobpgj codes; unclassified (2 sources)Localized edema; Translations: [Localized edema]57-45-6701Ofojkrgu Spondylosis; intervertebral disc disorders; other back problems (10 sources)Spondylosis without myelopathy or radiculopathy, lumbar region; Translations: [Other intervertebraldisc degeneration, lumbar region]Onset: 90-69-9432IjhumdaRedvquqie-related disorders (20 sources)Nicotine dependence, cigarettes, uncomplicated; Translations: [Tobacco dependence syndrome]Onset: 06-04-2022 Resolved: 070999-54-2912CkiffvjYgdwdalaliyr (4 sources)LOW BACK PAIN, UNSPECIFIED; Translations: [LOW BACK PAIN, UNSPECIFIED]Onset: 16-56-6062Tentnfjidbvu (4 sources)CONTACT W/AND (SUSP) EXPOS COVID-19; Translations: [CONTACT W/AND (SUSP) EXPOS COVID-19]Onset: 88-32-7866Jytsy infection (1 source)COVID-19; Translations: [COVID-19]Onset: 03-02-2022 Past or Other Problems Problem ClassificationProblemDateDocumented DateEpisodic/ChronicDeficiency and other anemia (20 sources)Acute megaloblastic anemia; Translations: [Other megaloblastic anemias, not elsewhere classified]Onset: 449245-49-2581KyjpfkekPvqkihdptw and other anemia (9 sources)Megaloblastic anemia; Translations: [Other megaloblastic anemias, not elsewhere classified]Onset: 12-06-2024 Resolved: 637952-16-8314UxnmktiwS Codes: Adverse effects of medical drugs (1 source)Adverse effect of glucocorticoids and synthetic analogues, initial encounter; Translations: [ADVRS EFF GLUCOCORT SYN ANALOG INIT]Onset: 12-04-2021 EpisodicHeadache; including migraine (20 sources)Migraine; Translations: [Migraine without aura]Onset: 01-04-2023 Resolved: 045228-46-4984FrfectaUxnq disorders (9 sources)Moderate recurrent major depression; Translations: [Major depressive disorder, recurrent, moderate]Onset: 12-06-2024 Resolved: 704386-48-7272OiysgjjAshs disorders (20 sources)Mood disordersOnset: 06-03-2023 Resolved: 236524-54-8739Ummiqioviwv deficiencies (20 sources)Cobalamin deficiency; Translations: [Deficiency of other specified B group vitamins]Onset: 357661-82-7734EizujoopXdxs wounds of extremities (20 sources)Open wound of left foot; Translations: [Unspecified open wound, left foot, initial encounter]Onset: 01-26-2023 Resolved: 433073-04-6500AzzkpcmaBsrll aftercare (1 source)Other senior living (current) drug therapy; Translations: [OTH NURSING HOME CURRENT DRUG THERAPY]Onset: 38-50-6673LgrujyisQdzke and unspecified benign neoplasm (10 sources)Polyp of colon; Translations: [Hyperplastic polyp of sigmoid colon] Onset: 113719-25-1475HbufikkeDaucb and unspecified benign neoplasm (20 sources)Hyperplastic polyp of intestine; Translations: [Polyp of colon] Onset: 652708-49-6286KhhuvszbIdbuu bone disease and musculoskeletal deformities (20 sources)Osteopenia; Translations: [Other specified disorders of bone density and structure, unspecified site]Onset: 017116-53-8866BruywbxiEught connective tissue disease (20 sources)Fibromyalgia; Translations: [Fibromyalgia]Onset: 03-10-2011 Resolved: 917587-19-5598JxiurclgXrytq connective tissue disease (1 source)Fibromyalgia; Translations: [FIBROMYALGIA]Onset: 33-43-3836Jwrbsfub Other ear and sense organ disorders (20 sources)Hearing loss; Translations: [Unspecified hearing loss, unspecified ear]Onset: 02-18-2023 Resolved: 793316-72-1809RlswzqzGswpc gastrointestinal disorders (4 sources)Other fecal abnormalities; Translations: [OTHER FECAL ABNORMALITIES] Onset: 14-41-5501JyqfjdrjLxglr inflammatory condition of skin (4 sources)Pruritus, unspecified; Translations: [PRURITUS UNSPECIFIED]Onset: 66-57-6665DsqyivxcEutft liver diseases (20 sources)Aspartate aminotransferase serum level raised; Translations: [Elevated SGOT (AST)]Onset: 03-10-2011 Resolved: 124441-36-1865YnabsaewDqxag lower respiratory disease (20 sources)Dyspnea; Translations: [Shortness of breath]Onset: 03-25-2023 Resolved: 484995-66-7911BtqyjvjxZduoz nervous system disorders (20 sources)Tremor; Translations: [Tremor, unspecified]Onset: 02-10-2024 89-80-1058BulfvjwpRtynp non-traumatic joint disorders (20 sources)Pain in left knee; Translations: [Pain in joint, lower leg]Onset: 10-13-2021 Resolved: 901037-94-5735EqoglaqoHiwsr nutritional; endocrine; and metabolic disorders (20 sources)Severe obesity; Translations: [Morbid (severe) obesity due to excess calories]Onset: 01-26-2023 Resolved: 679680-00-8456ThyekmyMbsdx nutritional; endocrine; and metabolic disorders (10 sources)Morbid obesity; Translations: [Morbid (severe) obesity due to excess calories]Onset: 12-07-2024 Resolved: 698718-77-4833YinamdxWussy screening for suspected conditions (not mental disorders or infectious disease) (20 sources)Stool DNA-based colorectal cancer screening positive; Translations: [Other fecal abnormalities]Onset: 651494-04-6244BnynpyetYkyai skin disorders (20 sources)Decorative tattoo; Translations: [Other specified disorders of pigmentation]Onset: 03-10-2011 Resolved: 892554-08-3672VatrhupoAwrdh upper respiratory infections (20 sources)Acute sinusitis; Translations: [Other acute sinusitis]Onset: 01-26-2023 Resolved: 344786-31-2361KavxfacqLjzsfmlqb (except that caused by tuberculosis or sexually transmitted disease) (20 sources)Community acquired pneumonia; Translations: [Pneumonia, unspecified organism]Onset: 01-03-2024 Resolved: 466564-41-1505DmoczawbRkwbthut codes; unclassified (20 sources)Edema of lower extremity; Translations: [Localized edema]Onset: 02-18-2023 Resolved: 098909-77-9065LllznmjjNbwnmcuy codes; unclassified (20 sources)Tobacco user; Translations: [Tobacco use]Onset: 02-18-2023 Resolved: 083702-51-8090XiqrnevaZxenwxjn codes; unclassified (1 source)Acquired absence of both cervix and uterus; Translations: [ACQUIRED ABSENCE BOTH CERVIX AND UTERUS]Onset: 62-21-7449WbslohqnDinvaxue codes; unclassified (1 source)Tobacco use; Translations: [TOBACCO USE]Onset: 39-73-1740Fctneuxe Residual codes; unclassified (1 source)Insomnia, unspecified; Translations: [INSOMNIA UNSPECIFIED]Onset: 67-57-7610VnxgttdtJauzmjht codes; unclassified (20 sources)Bilateral lower limb edema; Translations: [Localized edema]Onset: 892342-03-9563QevnyrhiVewfwawk codes; unclassified (20 sources)Exposure to carbon monoxide; Translations: [Contact with and (suspected) exposure to other hazardous substances]Onset: 02-18-2023 Resolved: 343950-17-5290SoixsdnvXswnqxqf codes; unclassified (20 sources)Edema of right lower limb; Translations: [Localized edema]Onset: 03-25-2023 Resolved: 269208-33-6658BbdzfzgrXnviwmoox and history of mental health and substance abuse codes (20 sources)Tobacco use and exposure - finding; Translations: [Personal history of nicotine dependence]Onset: 03-10-2011 Resolved: 898746-77-5882TamjpqcfIywqbyfdasp; intervertebral disc disorders; other back problems (20 sources)Chronic low back pain; Translations: [Chronic lumbar pain]Onset: 632264-89-4708FvavqbabUtktimyyvbys (1 source)LOW BACK PAIN, UNSPECIFIED; Translations: [LOW BACK PAIN, UNSPECIFIED] Onset: 89-65-0999Cthcjdnmstps (1 source)CONTACT W/AND (SUSP) EXPOS COVID-19; Translations: [CONTACT W/AND (SUSP) EXPOS COVID-19]Onset: 03-10-2022 Results Test NameValueInterpretationReference RangeFacilityGlomerular filtration rate (GFR) estimation in non- AmericanOrdered By: Jaymie Phoenix on 10-10-2024 GFR/1.73 sq M.predicted among non-blacks MDRD (S/P/Bld) [Vol rate/Area]54 mL/min/{1.73_m2}Low>=60 mL/min/1.73m 2FOhio Valley Surgical Hospital Laboratory - Chemistry and Chemistry - challengeOrdered By: Jaymie Phoenix on 28-29-7095Uhqwmic [Mass/Vol]8.9 mg/dL8.5-10.1FOhio Valley Surgical Hospital Chloride [Moles/Vol]101 mmol/Y62-056RnijrhfzaCleveland Clinic Union HospitalCO2 [Moles/Vol]29.5 mmol/L21.0-32.0[facility] HospitalCreatinine [Mass/Vol]1.03 mg/dLHigh0.55-1.02[facility] HospitalGFR/1.73 sq M.predicted MDRD (S/P/Bld) [Vol rate/Area]mL/min/{1.73_m2}>=60 mL/min/1.73m 2 [facility] HospitalGlucose [Mass/Vol]111 mg/zUDhaq09-768SyfmnbukyCleveland Clinic Union HospitalPotassium [Moles/Vol]4.1 mmol/L3.5-5.1FBellevue Hospitalodium [Moles/Vol]139 mmol/M111-014TjdhgldgdCleveland Clinic Union HospitalUrea nitrogen [Mass/Vol]19.0 mg/dLHigh7.0-18.0[facility] HospitalUrea nitrogen/Creatinine [Mass ratio]18.4 mg/mgMetroHealth Cleveland Heights Medical Centererum or plasma anion gap determinationOrdered By: Jaymie Phoenix on 39-50-4514Heoab gap [Moles/Vol]12.6 mmol/LFOhio Valley Surgical HospitalXR LUMBAR SPINE 6V W BENDINGon 86-79-8332TrdDari[place], [place] [address] XRay Report Signed Patient: FRANKY GAGNON I MR#: [id number] : 1965 Acct:[id number] Age/Sex: 59 / F ADM Date: 09/19/24 Loc: RAD Attending Dr: Estelle Vazquez NP Ordering Physician: Estelle Vazquez NP Date of Service: 09/19/24 Procedure(s): XR lumbar spine 6V w bending Accession Number(s): [id number] cc: Jaymie Phoenix THREE DIMENSIONAL ART INSTRUCTOR; Estelle Vazquez NP [place] [id number] Patient Name: FRANKY GAGNON MRN: [id number] date: 1965 Sex: F Assigned Patient Location: RAD Current Patient Location: RAD Accession/Order Number: [id number] Exam Date: 09/19/2024 14:32 Report Date: 09/19/2024 [...] Jr., D.O. 09/19/2024 2:33 PM Dictation Location: [place] [address] Electronically authenticated by: [id number] Y Date: 09/19/2024 14:33 Dictated By: Joaquin Chatman M.D. Signed By: 09/19/24 1436 DD/ 32 TD/TT: Industrial Safety And Health Manager:JEREMIEHRadiology, Radiologist, - 09/19/2024 [place] [address] XRay Report Signed Patient: FRANKY GAGNON I MR#: [id number] : 1965 Acct:[id number] Age/Sex: 59 / F ADM Date: 09/19/24 Loc: [facility] Attending Dr: Estelle Vazquez NP Ordering Physician: Estelle Vazquez NP Date of Service: 09/19/24 Procedure(s): XR lumbar spine 6V w bending Accession Number(s): [id number] cc: Jaymie Phoenix THREE DIMENSIONAL ART INSTRUCTOR; Estelle Vazquez NP The [place] [address] Patient Name: FRANKY GAGNON MRN: TBH:[id number] date: 1965 Sex: F Assigned Patient Location: [facility] Current Patient Location: RAD Accession/Order Number: [id number] Exam Date: 09/19/2024 14:32 Report Date: 09/19/2024 [...] Jr., D.O. 09/19/2024 2:33 PM Dictation Location: [place] [address] Electronically authenticated by: [id number] Y Date: 09/19/2024 14:33 Dictated By: Joaquin Chatman M.D. Signed By: 09/19/24 143 DD/ 32 TD/TT: Industrial Safety And Health Manager: [facility] HealthcareRadiology Study observation (narrative)NOMS HealthcareXR LUMBAR SPINE 6V W BENDINGOrdered By: Radiologist Radiology on 00-26-2633RHQX Healthcare Work Phone: TBL MICROALB CREAT RATIO RANDOMon 85-17-6329ABFTTRUQEN URINE QMPXJD118.95 mg/dL20.00 - 300.00 mg/dLNOCO HealthcareMICROALBUMIN URINE RANDOM<1.3NINF - 30.0 mg/dLNOCO HealthcareCLINISYNCNOMS HealthcareALL BASIC METABOLIC PANELon 50-22-9525Uzufj gap [Moles/Vol]11.6 mmol/LNOMS Healthcare Calcium [Mass/Vol]8.9 mg/dL8.5 - 10.1 mg/dLNOCO HealthcareChloride [Moles/Vol] 103 mmol/L98 - 107 mmol/LNOMS HealthcareCO2 [Moles/Vol]31.6 mmol/L21.0 - 32.0 mmol/LNOMS HealthcareCreatinine [Mass/Vol]1.17 mg/dLHigh0.55 - 1.02 mg/dLNOCO HealthcareGFR/1.73 sq M.predicted CKD-EPI (S/P/Bld) [Vol rate/Area]57Low>=60 mL/min/1.73m 2NOMS HealthcareGlucose [Mass/Vol]118 mg/ySArog15 - 106 mg/dLNOCO HealthcarePotassium [Moles/Vol]4.2 mmol/L3.5 - 5.1 mmol/LNOMS HealthcareSodium [Moles/Vol]142 mmol/L136 - 145 mmol/LNOMS HealthcareTBH EGFR-NON AF FLUJEWMJ22 Low>=60 mL/min/1.73m 2NOMS HealthcareUrea nitrogen [Mass/Vol]12 mg/dL7.0 - 18.0 mg/dLNOCO HealthcareUrea nitrogen/Creatinine [Mass ratio]10.3 mg/mgNOMoberly Regional Medical CenterALL LIPID PROFILE (FASTING)on 22-97-2138QQOP HDL RATIO2.9NOCO HealthcareComment on above:3.3 - 4.4 LOW RISK 4.4 - 7.1 AVERAGE RISK 7.1 - 11.0 MODERATE RISK >11.0 HIGH RISK Cholesterol [Mass/Vol]152 mg/dLNINF - 200 mg/dLNOMoberly Regional Medical CenterCholesterol in HDL [Mass/Vol]52 mg/dL40 - 60 mg/dLNOCO HealthcareComment on above:> or =60 mg/dl - LOW CARDIOVASCULAR RISK <40 mg/dl - HIGH CARDIOVASCULAR RISK Magnesium [Mass/Vol]70 mg/dLNOCO HealthcareComment on above:<100 mg/dl OPTIMAL 100-129 mg/dl NEAR OR ABOVE OPTIMAL 130-159 mg/dl BORDERLINE HIGH 160-189 mg/dl HIGH >190 mg/dl VERY HIGH Magnesium [Mass/Vol]30.8 mg/dLCox MonettTriglyceride [Mass/Vol]154 mg/dL HighNINF - 150 mg/dLCox MonettNo Panel Informationon 01-24-2024 Interpretation and review of laboratory resultsAbnoWills Eye HospitalCLINISYNC [facility] BASIC METABOLIC PANELon 12-86-8179Vmopo gap [Moles/Vol]12.5 mmol/LNOMS HealthcareCalcium [Mass/Vol]10.1 mg/dL8.5 - 10.1 mg/dLCox Monett Chloride [Moles/Vol]99 mmol/L98 - 107 mmol/LNOMS HealthcareCO2 [Moles/Vol]32.9 mmol/LHigh21.0 - 32.0 mmol/LNOMS HealthcareCreatinine [Mass/Vol]1.38 mg/dLHigh 0.55 - 1.02 mg/dLNOMoberly Regional Medical CenterGFR/1.73 sq M.predicted CKD-EPI (S/P/Bld) [Vol rate/Area]03Tdx29 - PINFNOMS [facility] Hospital ToledoGlucose [Mass/Vol]102 mg/dL74 - 106 mg/dL [facility] MonettInterpretation and review of laboratory resultsAbnormalNOMS HealthcarePotassium [Moles/Vol]4.4 mmol/L3.5 - 5.1 mmol/LNOMS HealthcareSodium [Moles/Vol]140 mmol/L136 - 145 mmol/LNOMS HealthcareTBH EGFR-NON AF OHUCXJIY60 Low60 - PINFNOMS HealthcareUrea nitrogen [Mass/Vol]13.0 mg/dL7.0 - 18.0 mg/dL NOMS HealthcareUrea nitrogen/Creatinine [Mass ratio]9.4 mg/mgNOMS Healthcare CLINISYNCNOCO HealthcareCT LUNG SCREENING LOW DOSEon 92-05-0634ModD[place], [place] [address] CT Scan Report Signed Patient: FRANKY GAGNON MR#: [id number] : 1965 Acct:[id number] Age/Sex: 57 / F ADM Date: 05/31/23 Loc: CT Attending Dr: Jaymie Phoenix NP Ordering Physician: Jaymie Phoenix NP Date of Service: 05/31/23 Procedure(s): CT lung screening low-dose Accession Number(s): [id number] cc: Jaymie Phoenix NP [place] [id number] Patient Name: FRANKY GAGNON MRN: [id number] date: 1965 Sex: F Assigned Patient Location: CT Current Patient Location: CT Accession/Order Number: [id number] Exam Date: 05/31/2023 13:47 Report Date: 05/31/2023 [...] Signed By: 05/31/23 1448 DD/ 1446 TD/TT: Industrial Safety And Health Manager:TBHRadiology, Radiologist, MD - 05/31/[address] [place] [id number] CT Scan Report Signed Patient: FRANKY GAGNON MR#: [id number] : 1965 Acct:[id number] Age/Sex: 57 / F ADM Date: 05/31/23 Loc: CT Attending Dr: Jaymie Phoenix NP Ordering Physician: Jaymie Phoenxi NP Date of Service: 05/31/23 Procedure(s): CT lung screening low-dose Accession Number(s): [id number] cc: Jaymie Phoenix NP The [address] [address] Patient Name: FRANKY GAGNON MRN: [id number] date: 1965 Sex: F Assigned Patient Location: CT Current Patient Location: CT Accession/Order Number: [id number] Exam Date: 05/31/2023 13:47 Report Date: 05/31/2023 [...] Signed By: 05/31/23 1448 DD/ 1446 TD/TT: Industrial Safety And Health Manager: [facility] HealthcareRadiology Study observation (narrative)NOMS HealthcareCT LUNG SCREENING LOW DOSEOrdered By: Radiologist Radiology on 39-60-7374OAGX Healthcare Work Phone: ca ECHO DOPPLER COMPLETEon [phone] [address] Cardiology Report Signed Patient: FRANKY GAGNON MR#: [id number] : 1965 Acct:[id number] Age/Sex: 57 / F ADM Date: 05/05/23 Loc: CARD Attending Dr: Jaymie Phoenix NP Ordering Physician: Jaymie Phoenix NP Date of Service: 05/05/23 Procedure(s): CA echo doppler complete Accession Number(s): [id number] cc: Jaymie Phoenix NP Patient Name: FRANKY GAGNON MR#: [id number] : 1965 Exam Date: 05/05/2023 Ordering Doctor: [...] content not included)...TBHRadiology, Radiologist, - 05/05/2023 [place] [address] Cardiology Report Signed Patient: FRANKY GAGNON MR#: [id number] : 1965 Acct:[id number] Age/Sex: 57 / F ADM Date: 05/05/23 Loc: CARD Attending Dr: Jaymie Phoenix NP Ordering Physician: Jaymie Phoenix NP Date of Service: 05/05/23 Procedure(s): CA echo doppler complete Accession Number(s): [id number] cc: Jaymie Phoenix NP Patient Name: FRANKY GAGNON MR#: [id number] : 1965 Exam Date: 05/05/2023 Ordering Doctor: [...] GARCIA Signed By: 05/05/231642 DD/ 41 TD/TT: Industrial Safety And Health Manager: [facility]ettRadiology Study observation (narrative)[facility] ECHO DOPPLER COMPLETEOrdered By: Radiologist Radiology on 35-62-4062OUQL [employer] Work Phone: ct ABDOMEN PELVIS W CONon 39-84-9624RbpJonathan [place] [id number] CT Scan Report Signed Patient: FRANKY GAGNON MR#: [id number] : 1965 Acct:[id number] Age/Sex: 57 / F ADM Date: 04/30/23 Loc: CT Attending Dr: Jaymie Phoenix NP Ordering Physician: Jaymie Phoenix NP Date of Service: 04/30/23 Procedure(s): CT abdomen pelvis w con Accession Number(s): [id number] cc: Jaymie Phoenix NP [address] [address] Patient Name: FRANKY GAGNON MRN: [id number] date: 1965 Sex: F Assigned Patient Location: CT Current Patient Location: Accession/Order Number: [id number] Exam Date: 04/30/2023 12:55 Report Date: 05/03/2023 [...] M.D. Signed By: 05/03/23 0858 DD/ TD/TT: Industrial Safety And Health Manager:TBHRadiology, Radiologist, - 05/03/2023 [place] [address] CT Scan Report Signed Patient: FRANKY GAGNON MR#: [id number] : 1965 Acct:[id number] Age/Sex: 57 / F ADM Date: 04/30/23 Loc: CT Attending Dr: Jaymie Phoenix NP Ordering Physician: Jaymie Phoenix NP Date of Service: 04/30/23 Procedure(s): CT abdomen pelvis w con Accession Number(s): [id number] cc: Jaymie Phoenix NP [place] [address] Patient Name: FRANKY GAGNON MRN: [facility]:[id number] date: 1965 Sex: F Assigned Patient Location: CT Current Patient Location: Accession/Order Number: [id number] Exam Date: 04/30/2023 12:55 Report Date: 05/03/2023 [...] Signed By: 05/03/23 0858 DD/ 0856 TD/TT: Industrial Safety And Health Manager: [facility] HealthcareRadiology Study observation (narrative)[facility] HealthcareCT ABDOMEN PELVIS W CONOrdered By: Radiologist Radiology on 67-84-7543UDPOCox Monett Work Phone: VC EXT VENOUS REFLUX SABRINA LMTDon [phone], [place] [address] Vein Report Signed Patient: FRANKY GAGNON MR#: [id number] : 1965 Acct:[id number] Age/Sex: 57 / F ADM Date: 04/22/23 Loc: VC Attending Dr: Nadine Guerra M.D. Ordering Physician: Nadine Guerra M.D. Date of Service: 04/22/23 Procedure(s): VC EXT Venous Reflux SABRINA LMTD Accession Number(s): [id number] cc: Jaymie Phoenix THREE DIMENSIONAL ART INSTRUCTOR; Nadine Guerra M.D. Patient Name: FRANKY GAGNON MR#: [id number] : 1965 Exam Date: 04/22/2023 Ordering Doctor: [...] chronis thrombus visualized Compressibility: Normal Flow: Normal Set Off Blocker: Dist/med calf 3.9mm with 1.0s reflux. Tech [...] Signed By: 04/22/23 1441 DD/ 1440 TD/TT: Industrial Safety And Health Manager:TBHRadiology, Radiologist, MD - 04/22/2023 [place] [address] Vein Report Signed Patient: FRANKY GAGNON MR#: [id number] : 1965 Acct:[id number] Age/Sex: 57 / F ADM Date: 04/22/23 Loc: VC Attending Dr: Nadine Guerra M.D. Ordering Physician: Nadine Guerra M.D. Date of Service: 04/22/23 Procedure(s): VC EXT Venous Reflux SABRINA LMTD Accession Number(s): [id number] cc: Jaymie Phoenix THREE DIMENSIONAL ART INSTRUCTOR; Nadine Guerra M.D. Patient Name: FRANKY GAGNON MR#: [id number] : 1965 Exam Date: 04/22/2023 Ordering Doctor: [...] chronis thrombus visualized Compressibility: Normal Flow: Normal Set Off Blocker: Dist/med calf 3.9mm with 1.0s reflux. Tech [...] Signed By: 04/22/23 1441 DD/ 1440 TD/TT: Industrial Safety And Health Manager: [facility]ITALKecia HealthcareRadiology Study observation (narrative)NOMS HealthcareVC EXT VENOUS REFLUX SABRINA LMTDOrdered By: Radiologist Radiology on 42-53-2955EXER [facility] Work Phone: [facility] EST COMPREHENSIVEon 94-58-5075WujDarien, [place] [address] Vein Report Signed Patient: FRANKY GAGNON MR#: [id number] : 1965 Acct:[id number] Age/Sex: 57 / F ADM Date: 04/22/23 Loc: Attending Dr: Nadine Guerra M.D. Ordering Physician: Nadine Guerra M.D. Date of Service: 04/22/23 Procedure(s): [facility] Accession Number(s): [id number] cc: Jaymie Phoenix THREE DIMENSIONAL ART INSTRUCTOR; Nadine Guerra M.D. Patient Name: FRANKY GAGNON MR#: [id number] : 1965 Exam Date: 04/22/2023 Ordering Doctor: DR NADINE GUERRA M.D. RADIOLOGY REPORT PROCEDURE: [facility]IN [facility] - OFFICE VISIT INITIAL COMPARISON: [...] arterial disease 5. CEAP: C3, AP, , PA PLAN: 1. Continued use of compression stockings [...] content not included)...TBHRadiology, Radiologist, - 04/22/2023 [place] [address] Vein Report Signed Patient: FRANKY GAGNON MR#: [id number] : 1965 Acct:[id number] Age/Sex: 57 / F ADM Date: 04/22/23 Loc: VC Attending Dr: Nadine Guerra M.D. Ordering Physician: Nadine Guerra M.D. Date of Service: 04/22/23 Procedure(s): VC Facility EST Comprehensive Accession Number(s): [id number] cc: Jaymie Phoenix THREE DIMENSIONAL ART INSTRUCTOR; Nadine Guerra M.D. Patient Name: FRANKY GAGNON MR#: [id number] : 1965 Exam Date: 04/22/2023 Ordering Doctor: [...] arterial disease 5. CEAP: C3, AP, , PA PLAN: 1. Continued use of compression stockings [...] Signed By: 04/22/23 1449 DD/ 1448 TD/TT: Industrial Safety And Health Manager: LYNDSAYNorthwest Medical CenterRadiology Study observation (narrative)[facility] FACILITY EST COMPREHENSIVEOrdered By: Radiologist Radiology on 93-50-6855BHCRCox Monett Work Phone: all CBC WITH AUTO DIFFon 51-48-8843PXGQFIQLN ABSOLUTE AUTO0.0NOMoberly Regional Medical CenterBasophils/100 WBC (Bld)0.5 %0.2 - 2.0 %[facility] Eosinophils/100 WBC (Bld)1.5 %0.9 - 7.0 %[facility] MonettErythrocyte distribution width (RBC) [Ratio]14.0 %11.0 - 15.0 %[facility] MonettHematocrit (Bld) [Volume fraction]42.3 %36.0 - 48.0 %[facility] MonettHemoglobin (Bld) [Mass/Vol]13.4 g/dL 12.0 - 16.0 g/dLCox MonettIMMATURE GRANULOCYTES ABS AUTO0.02NOMoberly Regional Medical Center Immature granulocytes/100 WBC (Bld)0.3 %0.0 - 0.5 %[facility]ettInterpretation and review of laboratory resultsAbnormalCox MonettLYMPHOCYTES ABSOLUTE AUTO1.9NOMoberly Regional Medical CenterLymphocytes/100 WBC (Bld)30.2 %20.5 - 60.0 %[facility] Medical CenterH (RBC) [Entitic mass]33.6 pg26.7 - 34.0 pgCass Medical CenterHC (RBC) [Mass/Vol]31.7 g/dL29.9 - 35.2 g/dLNOCO HealthcareMCV (RBC) [Entitic vol]106.0 eVQvzm99.0 - 99.0 fLNOCO HealthcareMONOCYTES ABSOLUTE AUTO0.6N[facility] Monocytes/100 WBC (Bld)9.3 %1.7 - 12.0 %NOMS HealthcareNEUTROPHILS ABSOLUTE AUTO 3.6NOMS HealthcareNeutrophils/100 WBC (Bld)58.2 %43.0 - 75.0 %NOMNorthwest Medical Center Platelet mean volume (Bld) [Entitic vol]10.7 fL9.5 - 13.5 fLNOMoberly Regional Medical CenterTBH EO #0.1NOMS HealthcareTBH [id number] HealthcareTBH RBC3.99LowNOMS HealthcareTBH WBC6.2NOMS HealthcareCLINISYNCNFAIRVIEW REGIONAL [facility] HealthcareCCF CMP (CMP) (FOR [facility] USE) on 41-53-8970Znsfyog [Mass/Vol]3.2 g/dLLow3.4 - 5.0 g/dLNOCO HealthcareALBUMIN GLOBULIN RATIO1.0NOCO HealthcareALP [Catalytic activity/Vol]92 U/L46 - 116 U/L NOM HealthcareALT [Catalytic activity/Vol]36 U/L14 - 59 U/LNOMS HealthcareAnion gap [Moles/Vol]13.2 mmol/LNOMS HealthcareAST [Catalytic activity/Vol]23 U/L15 - 37 U/LNOMS HealthcareBilirubin [Mass/Vol]0.7 mg/dL0.2 - 1.0 mg/dLNOCO Healthcare Calcium [Mass/Vol]8.5 mg/dL8.5 - 10.1 mg/dLNOCO HealthcareChloride [Moles/Vol] 103 mmol/L98 - 107 mmol/LNOMS HealthcareCO2 [Moles/Vol]29.7 mmol/L21.0 - 32.0 mmol/LNOMS HealthcareCreatinine [Mass/Vol]1.37 mg/dLHigh0.55 - 1.02 mg/dLNOCO HealthcareGFR/1.73 sq M.predicted CKD-EPI (S/P/Bld) [Vol rate/Area]32Exr79 - PINFNOMS HealthcareGlobulin (S) [Mass/Vol]3.2 g/dLNOCO HealthcareGlucose [Mass/Vol]77 mg/dL74 - 106 mg/dLNOCO HealthcareInterpretation and review of laboratory resultsAbnoCleveland Clinic Mentor Hospital HealthcarePotassium [Moles/Vol]3.9 mmol/L3.5 - 5.1 mmol/LNOMS HealthcareProtein [Mass/Vol]6.4 g/dL6.4 - 8.2 g/dLNOCO Healthcare Sodium [Moles/Vol]142 mmol/L136 - 145 mmol/LNOMS HealthcareTB EGFR-NON AF CYLCMFQB62Afo01 - PINFNOMS HealthcareUrea nitrogen [Mass/Vol]9.0 mg/dL7.0 - 18.0 mg/dLNOCO HealthcareUrea nitrogen/Creatinine [Mass ratio]6.6 mg/mgNOCO HealthcareCLINISYNCNSt. Louis Behavioral Medicine InstituteTB D-DIMERon 03-25-2023 DIMER0.82Critically highNINFBEAVER VALLEY HOSPITAL HealthcareComment on above:RESULTS CALLED TO [...] Interpretation and review of laboratory resultsAbFormerly Vidant Duplin HospitalUS.doppler Lower extremity vein - righton 21-78-2858ZjyDari[place], [place] [address] Ultrasound Report Signed Patient: FRANKY GAGNON I MR#: [id number] : 1965 Acct:[id number] Age/Sex: 57 / F ADM Date: 03/25/23 Loc: LAB Attending Dr: Jaymie Phoenix NP Ordering Physician: Jaymie Phoenix NP Date of Service: 03/25/23 Procedure(s): US venous doppler LE RT Accession Number(s): [id number] cc: Jaymie Phoenix NP [address] [address] Patient Name: FRANKY GAGNON MRN: [id number] date: 1965 Sex: F Assigned Patient Location: LAB Current Patient Location: LAB Accession/Order Number: [id number] Exam Date: 03/25/2023 14:30 Report Date: 03/25/2023 [...] Signed By: 03/25/23 1527 DD/ 1524 TD/TT: Industrial Safety And Health Manager:TBHRadiology, Radiologist, MD - 03/25/2023 [place] [address] Ultrasound Report Signed Patient: FRANKY GAGNON I MR#: [id number] : 1965 Acct:[id number] Age/Sex: 57 / F ADM Date: 03/25/23 Loc: LAB Attending Dr: Jaymie Phoenix NP Ordering Physician: Jaymie Phoenix NP Date of Service: 03/25/23 Procedure(s): US venous doppler LE RT Accession Number(s): [id number] cc: Jaymie Phoenix NP The [address] [address] Patient Name: FRANKY GAGNON MRN: [id number] date: 1965 Sex: F Assigned Patient Location: LAB Current Patient Location: LAB Accession/Order Number: [id number] Exam Date: 03/25/2023 14:30 Report Date: 03/25/2023 [...] M.D. Signed By: 03/25/231526 DD/ 23 TD/TT: Industrial Safety And Health Manager: [facility]ettRadiology Study observation (narrative)SYLVIA [facility] ToledoUS.doppler Lower extremity vein - rightOrdered By: Radiologist Radiology on 96-48-8904DVGZ [employer] Work Phone: XR CHEST 2Von [phone], [place] [address] XRay Report Signed Patient: FRANKY GAGNON I MR#: [id number] : 1965 Acct:[id number] Age/Sex: 57 / F ADM Date: 03/25/23 Loc: LAB Attending Dr: Jaymie Phoenix NP Ordering Physician: Jaymie Phoenix NP Date of Service: 03/25/23 Procedure(s): XR chest 2V Accession Number(s): [id number] cc: Jaymie Phoenix NP [place] [address] Patient Name: FRANKY GAGNON MRN: [id number] date: 1965 Sex: F Assigned Patient Location: LAB Current Patient Location: LAB Accession/Order Number: [id number] Exam Date: 03/25/2023 14:25 Report Date: 03/25/2023 [...] Signed By: 03/25/23 1440 DD/ 1438 TD/TT: Industrial Safety And Health Manager:TBHRadiology, Radiologist, - 03/25/2023 [place] [address] XRay Report Signed Patient: FRANKY GAGNON I MR#: [id number] : 1965 Acct:[id number] Age/Sex: 57 / F ADM Date: 03/25/23 Loc: LAB Attending Dr: Jaymie Phoenix NP Ordering Physician: Jaymie Phoenix NP Date of Service: 03/25/23 Procedure(s): XR chest 2V Accession Number(s): [id number] cc: Jaymie Phoenix NP [place] [id number] Patient Name: FRANKY GAGNON MRN: [id number] date: 1965 Sex: F Assigned Patient Location: LAB Current Patient Location: LAB Accession/Order Number: [id number] Exam Date: 03/25/2023 14:25 Report Date: 03/25/2023 [...] Signed By: 03/25/23 1440 DD/ 1438 TD/TT: Industrial Safety And Health Manager: SYLVIA HealthcareRadiology Study observation (narrative)[facility] HealthcareXR CHEST 2V Ordered By: Radiologist Radiology on 23-91-2293XUTH [employer] Work Phone: SEGMENTAL BLOOD PRESSUREon [phone], [place] [address] Cardiology Report Signed Patient: FRANKY GAGNON I MR#: [id number] : 1965 Acct:[id number] Age/Sex: 57 / F ADM Date: 03/24/23 Loc: CARD Attending Dr: Nilam Busby Ordering Physician: Nilam Busby Date of Service: 03/24/23 Procedure(s): CA segmental UE or LE SABRINA Accession Number(s): [id number] cc: Jaymie Phoenix THREE DIMENSIONAL ART INSTRUCTOR; Nilam Busby The [facility] Test Date: 2023-03-24 Pat Name: FRANKY GAGNON Department: Room: - Gender: Female Grinder Tender: : 1965 Requested By: Nilam Busby Order Number: [id number] Julia MD: RICH CANNON Interpretive Statements Monophasic [...] D.O. Signed By: 03/24/23223203/24/232232 DD/ 1306 TD/TT: Industrial Safety And Health Manager:TBHRadiology, Radiologist, - 03/24/2023 [place] [address] Cardiology Report Signed Patient: FRANKY GAGNON I MR#: [id number] : 1965 Acct:[id number] Age/Sex: 57 / F ADM Date: 03/24/23 Loc: CARD Attending Dr: Nilam Busby Ordering Physician: Nilam Busby Date of Service: 03/24/23 Procedure(s): CA segmental UE or LE SABRINA Accession Number(s): [id number] cc: Jaymie Phoenix THREE DIMENSIONAL ART INSTRUCTOR; Nilam Busby The [facility] Test Date: 2023-03-24 Pat Name: FRANKY GAGNON Department: Room: - Gender: Female Grinder Tender: : 1965 Requested By: Nilam Busby Order Number: [id number] Reading MD: RICH CANNON Interpretive Statements Monophasic [...] D.O. Signed By: 02/223203/24/232232 DD/ 1306 TD/TT: Industrial Safety And Health Manager: SYLVIA HealthcareRadiology Study observation (narrative)NOMS HealthcareSEGMENTAL BLOOD PRESSUREOrdered By: Radiologist Radiology on 62-61-4577TLNYCox Monett Work Phone: bLOOD GASES BTYon [facility] Hospital - DublinComment on above:Performed By: #### ABG ####[facility] Ewkmvevevm[address] [place], [place] [address]Dr.Phani ElALLENS TEST PositiveSelect Medical [facility] Clinic Rehabilitation Hospital, BeachwoodComment on above:Performed By: #### ABG ####[facility] Bhqylygzoo[address] [place], [place] [address]Dr. Phani ElBase excess Calc (Bld) [Moles/Vol]1.4 mmol/LNormal-2.0-2.0The [facility], BeachwoodComment on above:Performed By: #### ABG ####[facility] Qyzssajlig[address] [place], [place] [address]Dr.Phani ChangBIPAP PRESSURE NormalParkview Health Bryan HospitalComment on above:Performed By: #### ABG ####[facility] Ohgnjtgsjy[address] [place], [place] [address]Dr.Yilan ChangCPAP NormalParkview Health Bryan HospitalComment on above:Performed By: #### ABG ####[facility] Pxdvincuea[address] [place], [place] [address]Dr.Phani ChangFIO2 NormalParkview Health Bryan HospitalComment on above:Performed By: #### ABG ####[facility] Igixmcvbhb[address] [place], [place] [address]Dr.Phani ChangHCO3 (Bld) [Moles/Vol]26.2 mmol/LCritically high22.0-26.0The [facility], BeachwoodComment on above:Performed By: #### ABG ####[facility] Afktefrkiq[address] [place], [place] [address]Dr.Phani ChangLPMNormalThe Fayetteville HospitalComment on above:Performed By: #### ABG ####[facility] Izwngpxzgd[address] [place], [place] [address]Dr.Loryzach ElMINUTE [facility] Comment on above:Performed By: #### ABG ####[facility] Prtmbcxjfl[address] [place], [place] [address]Dr.Phani ChangOxygen (Bld) [Partial pressure]56.1 mm[Hg]Critically low80.0-100.0The [facility]ville HospitalComment on above:Performed By: #### ABG ####[facility] Xcyhfqczqw[address] [place], [place] [address]Dr.Phani ElOxygen saturation in Blood92.0 % Critically low95.0-100.0The [facility], BeachwoodComment on above:Performed By: #### ABG ####[facility] Jfthupadkk[address] [place], [place] [address]Dr.Phani ElPCO242.6 fkOvOdzbbe29.0-45.0The [facility], BeachwoodComment on above:Performed By: #### ABG ####[facility] Nawwehzeyp[address] [place], [place] [address]Dr.Phani ElPEChillicothe HospitalComment on above:Performed By: #### ABG ####[facility] Uautoxzptc[address] [place], [place] [address]Dr.Phani ChangpH (Bld)7.398 [pH]Normal7.350-7.450The [facility], BeachwoodComment on above:Performed By: #### ABG ####[facility] Dyzchhynbt[address] [place], [place] [address]Dr.Phani ChangPIPNormalParkview Health Bryan HospitalComment on above:Performed By: #### ABG ####[facility] Qtrrgfayrz[address] [place], [place] [address]Dr.Phani ChangMercy Health West HospitalComment on above:Performed By: #### ABG ####[facility] Vkwzwopols[address] [place], [place] [address]Dr.Phani ChangPUNCTURE SITERR NormalParkview Health Bryan HospitalComment on above:Performed By: #### ABG ####[facility] [address] [place] [address]Dr.Phani Mcgregor NormalParkview Health Bryan HospitalComment on above:Performed By: #### ABG ####[facility] [address] [place] [address]Dr.Phani Quintero [facility] Children's HospitalComment on above:Performed By: #### ABG ####[facility] Edttcfyzon[address] [place] [address]Dr. Phani [facility] Samaritan HospitalComment on above:Performed By: #### ABG ####[facility] Cmgusbcyij[address] [place] [address]Dr. Phani ChangECHOCARDIO M/2D COMPLETEon 01-45-6531VJARWAVAAQ M/2D COMPLETEPatient: FRANKY GAGNON I. Exam Date: 07/08/2022 : 1965 Gender:F Ordering : DR. MAGDALENA DOWNING . Admission #: [id number] Family : MEREDITH PHOENIX TOOLROOM CHECKER Order #: [id number] CLICK HERE TO VIEW EXAM ECHOCARDIOGRAM REPORT [...] by: Chetan Garcia M.D. on 07/08/2022 at 18:14[facility] LUNG CANCER SCREENINGon 95-13-6396MH LUNG CANCER SCREENING EXAMINATION: CT LUNG CANCER [...] Electronically authenticated by: MELISSA ROSENBERG Date: 2022-05-29 09:36NormalThMercy Health [facility] AUTO DIFFon 04-82-2349THQO #0.1 103/ulNormal0.0-0.1The [facility], BeachwoodComment on above:Performed By: #### CBC #### [facility] Laboratory [address] [place] [address] [address] Phani ElBasophils/100 WBC (Bld)0.8 %Normal0.2-2.0[facility] Comment on above:Performed By: #### CBC #### [facility] Laboratory [address] [place] [address] [address] Phani Cabezas #0.1 103/ulNormal0.0-0.7The [facility], BeachwoodComment on above: Performed By: #### CBC #### [facility] Laboratory [address] [place] [address] Dr. Phani Royosinophils/100 WBC (Bld)2.0 %Normal0.9-7.0[facility] Comment on above:Performed By: #### CBC #### [facility] Laboratory [address] [place] [address] [address] Phani Royrythrocyte distribution width (RBC) [Ratio]14.0 %Qkkwuv91.0-15.0 [facility] HospitalComment on above:Performed By: #### CBC #### [facility] Laboratory [address] [place] [address] Dr. Phani ElHematocrit (Bld) [Volume fraction]48.7 %Critically high36.0-48.0 [facility] Bryan HospitalComment on above:Performed By: #### CBC #### [facility] Laboratory [address] [place] [address] Dr. Phani ElHemoglobin (Bld) [Mass/Vol]15.9 g/dHIctjes03.0-16.0[facility] Bryan HospitalComment on above:Performed By: #### CBC #### [facility] Laboratory [address] [place] [address] Dr. Phani Escobar #0.05 10e3/ulCritically high0.00-0.03[facility] Comment on above:Performed By: #### CBC #### [facility] Laboratory [address] [place] [address] [address] Phani Escobar %0.8 %Critically high0.0-0.5The [facility], BeachwoodComment on above:Performed By: #### CBC #### [facility] Laboratory [address] [place] [address] [address] Phani Sol #1.9 103/ulNormal1.2-3.8The [facility], BeachwoodComment on above:Performed By: #### CBC #### [facility] Laboratory [address] [place] [address] [address] Phani Rogelhocytes/100 WBC (Bld)30.1 %Mgvvuo00.5-60.0The [facility], BeachwoodComment on above:Performed By: #### CBC #### [facility] Laboratory [address] [place] [address] [address] Phani GreenUAL DIFF REQNONormalThe [facility], BeachwoodComment on above: Performed By: #### CBC #### [facility] Laboratory [address] [place] [address] [address] Phani Hodge (RBC) [Entitic mass]32.9 doHqqbai37.7-34.0The [facility], BeachwoodComment on above:Performed By: #### CBC #### [facility] Laboratory [address] [place] [address] Dr. Phani Hodge (RBC) [Mass/Vol]32.6 g/gTZgvbia75.9-35.2The [facility], BeachwoodComment on above:Performed By: #### CBC #### [facility] Laboratory [address] [place] [address] Dr. Phani Hodge (RBC) [Entitic vol]100.8 fLCritically high81.0-99.0The [facility], BeachwoodComment on above:Performed By: #### CBC #### [facility] Laboratory [address] [place] [address] Dr. Phani Noble #0.5 103/ulNormal0.3-0.8The [facility], BeachwoodComment on above:Performed By: #### CBC #### [facility] Laboratory [address] [place] [address] [address] Phani Andersonocytes/100 WBC (Bld)7.2 %Normal1.7-12.0The [facility] on above:Performed By: #### CBC #### [facility] Laboratory [address] [place] [address] [address] Phani DavenportUT #3.8 103/ulNormal1.4-6.5The [facility], BeachwoodComment on above:Performed By: #### CBC #### [facility] Laboratory [address] [place] [address] Dr. Phani Davenportutrophils/100 WBC (Bld)59.1 %Mgdary84.0-75.0The [facility], BeachwoodComment on above:Performed By: #### CBC #### [facility] Laboratory [address] [place] [address] Dr. Phani ElPlatelet mean volume (Bld) [Entitic vol]11.0 fLNormal9.5-13.5The [facility], BeachwoodComment on above:Performed By: #### CBC #### [facility] Laboratory [address] [place] [address] Dr. Phani ElPLT167 103/emMsbage892-570Iap [facility], BeachwoodComment on above: Performed By: #### CBC #### [facility] Laboratory [address] [place] [address] Dr. Phani ElRBC4.83 106/ulNormal4.20-5.40The [facility], BeachwoodComment on above:Performed By: #### CBC #### [facility] Laboratory [address] [place] [address] Dr. Phani ElWBC6.4 103/ulNormal4.0-11.0The [facility], BeachwoodComtrinity health living[facility] hospital on above: Performed By: #### CBC #### [facility] Laboratory [address] [place] [address] Dr. Phani ElGLYCOHEMOGLOBIN A1Con 29-72-9183CJP RECOMMENDATIONSEE BELOWNormal The [facility], BeachwoodComment on above:Result Comment: ADA RECOMMENDED LIMIT 4.0 - 6.0 ADA THERAPEUTIC TARGET < 7.0 ACTION SUGGESTED > 7.0Performed By: #### A1C ####[facility] [address] [place] [address]Dr. Phani ElGlucose [Mass/Vol]114 mg/dLSelect Medical Cleveland Clinic Rehabilitation Hospital, BeachwoodComtrinity health livingston hospital on above:Performed By: #### A1C ####[facility] [address] [place] [address]Dr.Yilan ElHbA1c (Bld) [Mass fraction]5.6 %Normal 4.5-6.2[facility] HospitalComment on above:Performed By: #### A1C ####[facility] [address]bib[address] [place] [address]DrGerardo ElLIPID PROFILEon 53-81-1983FFGC-HDL RATIO NORMSSelect Medical [facility] Comment on above:Result Comment: 3.3 - 4.4 LOW RISK 4.4 - 7.1 AVERAGE RISK 7.1 - 11.0 MODERATE RISK >11.0 HIGH RISKPerformed By: #### CMP, LIPID #### [facility] Laboratory [address] [place] [address] [address] Phani Rojasesterol [Mass/Vol]178 mg/dLNormal<=200The [facility] Comment on above:Performed By: #### CMP, LIPID #### [facility] Laboratory [address] [place] [address] [address] Phani Rojasesterol in HDL [Mass/Vol]54 mg/mVHczujs78-45Fzb [facility] on above:Performed By: #### CMP, LIPID #### [facility] Laboratory [address] [place] [address] [address] Phani Rojasesterol in LDL [Mass/Vol]86.6 mg/dLSalem City Hospital on above:Performed By: #### CMP, LIPID #### [facility] Laboratory [address] [place] [address] [address] Phani Mireles.total/Cholesterol in HDL [Mass ratio]3.3 {ratio} NormalThe [facility], BeachwoodComment on above:Performed By: #### CMP, LIPID #### [facility] Laboratory [address] [place] [address] [address] Phani Slater NORMAL> or = 60 mg/dl - LOW CARDIOVASCULAR RISK <40 mg/dl - HIGH CARDIOVASCULAR RISKSelect Medical [facility], BeachwoodComment on above:Performed By: #### CMP, LIPID #### [facility] Laboratory [address] [place] [address] [address] Phani ElLDL CALC NORMALSEE BELOWNoToledo HospitalComment on above:Result Comment: <100 mg/dl OPTIMAL 100 - 129 mg/dl NEAR OR ABOVE OPTIMAL 130 - 159 mg/dl BORDERLINE HIGH 160 - 189 mg/dl HIGH >190 mg/dl VERY HIGH Performed By: #### CMP, LIPID #### [facility] Laboratory [address] [place] [address] [address] Phani ElTriglyceride [Mass/Vol]187 mg/dLCritically high<=150The [facility], BeachwoodComment on above:Performed By: #### CMP, LIPID #### [facility] Laboratory [address] [place] [address] [address] Phani ElVLDL CALC37.4 mg/dLNoToledo HospitalComment on above: Performed By: #### CMP, LIPID #### [facility] Laboratory [address] [place] [address] [address] Phani ElPROF 14(COMP METB)on 41-25-1894Jmgesae [Mass/Vol]3.6 g/dLNormal 3.4-5.0The [facility], BeachwoodComment on above:Performed By: #### CMP, LIPID ####[facility] [address] [place] [address]Dr. Phani ElAlbumin/Globulin [Mass ratio]1.1 {ratio}NormalThe [facility] Comment on above:Performed By: #### CMP, LIPID ####[facility] [address]msmhuvph[address] [place] [address]Dr. Phani ElALP [Catalytic activity/Vol]91 U/ENgqrml49-877Xyz Dionna HospitalComment on above:Performed By: #### CMP, LIPID ####[facility] [address] [place] [address]Dr. Yilan ChangALT [Catalytic activity/Vol]34 U/L Yrwruu30-05Hno [facility], BeachwoodComment on above:Performed By: #### CMP, LIPID ####[facility] [address]faqqb[address] [place] [address]Dr. Yilan ChangAnion gap [Moles/Vol]11.6 mmol/LNormalThe [facility], BeachwoodComment on above:Performed By: #### CMP, LIPID ####[facility] Awdirxiyck[address] [place] [address]Dr. Yilan ChangAST [Catalytic activity/Vol]18 U/L Fqwvsz37-85Jhu [facility], BeachwoodComment on above:Performed By: #### CMP, LIPID ####[facility] [address]fkqaq[address] [place], [place] [address]Dr. Yilan ChangBilirubin [Mass/Vol]0.6 mg/dLNormal0.2-1.0The [facility] Comment on above:Performed By: #### CMP, LIPID ####[facility] Cspe[address] [place], [place] [address]Dr. Yilan ChangCalcium [Mass/Vol]9.2 mg/dLNormal8.5-10.1The [facility] Hospitalment on above:Performed By: #### CMP, LIPID ####[facility] [address]trdbcjs[address] [place] [address]Dr. Yilan ChangChloride [Moles/Vol]106 mmol/LNormal 98-107The [facility] Hospital, BeachwoodComment on above:Performed By: #### CMP, LIPID ####[facility] [place] Ocyoopemly[address] [place], [place] [address]Dr. Yilan ChangCO2 [Moles/Vol]32.3 mmol/LCritically high21.0-32.0The [facility] Hospitalment on above:Performed By: #### CMP, LIPID ####[facility] [place] Dpjrlrdany[address] [place], [place] [address]Dr. Yilan ChangCreatinine [Mass/Vol]1.04 mg/dLCritically high0.55-1.02The [facility], BeachwoodComment on above:Performed By: #### CMP, LIPID ####[facility] [place] Wqbgdbglzf[address] [place], [place] [address]Dr. Yilan ChangEGFR-AF FAROESE>60Normal>=60The [facility], BeachwoodComment on above:Performed By: #### CMP, LIPID ####[facility] [place] Bsrsegbegr[address] [place], [place] [address]Dr. Yilan ChangEGFR- NON AF OBFBSVPW21 mL/min/1.41j6Xigkbbhtpj low>=60The [facility], BeachwoodComment on above:Performed By: #### CMP, LIPID ####[facility] [place] Ryzwuddzkl[address] [place], [place] [address]Dr. Lorylan ChangGlobulin (S) [Mass/Vol]3.4 g/dL NormalThe [facility], BeachwoodComment on above:Performed By: #### CMP, LIPID ####[facility] [place] Wkzddshjny[address] [place], [place] [address]Dr. Yilan ChangGlucose [Mass/Vol]124 mg/dLCritically cvfd39-996Dwp [facility] [place] Comment on above:Performed By: #### CMP, LIPID ####[facility] [place] Tq[address] [place], [place] [address]Dr. Yilan ChangPotassium [Moles/Vol]3.9 mmol/LNormal3.5-5.1The [facility], BeachwoodComment on above: Performed By: #### CMP, LIPID ####[facility] [place] Ucepqwoz[address] [place], [place] [address]Dr. Yilan ChangProtein [Mass/Vol]7.0 g/dLNormal6.4-8.2 The [facility], BeachwoodComment on above:Performed By: #### CMP, LIPID ####[facility] [place] Vvchkpqryt[address] [place], [place] [address]Dr. Yilan El Sodium [Moles/Vol]146 mmol/LCritically fqvb898-472Wee [facility], BeachwoodComment on above:Performed By: #### CMP, LIPID ####[facility] [place] Zwclqbmvcp[address] [place], [place] [address]Dr. Phani ElUrea nitrogen [Mass/Vol]14.0 mg/dLNormal7.0-18.0The [facility], BeachwoodComment on above:Performed By: #### CMP, LIPID ####[facility] [place] V[address] [place], [place] [address]Dr. Phani ElUrea nitrogen/Creatinine [Mass ratio]13.5 mg/mgNoToledo HospitalComment on above:Performed By: #### CMP, LIPID ####[facility] [place] Ebiylkotvt[address] [place], [place] [address]MiCindy El VITAMIN B12on 48-22-9680Ecnreqdmw (Vitamin B12) [Mass/Vol]321.0 pg/mLNormal 193.0-986.0The [facility], [facility]woodComtr[facility] on above:Performed By: #### VITOMI, VITB12 #### [facility] [place] Laboratory [address] [address] [address] Phani ElVITAMIN D 25 OHon 94-71-2928TST D 25-OH58.7 ng/mLNormalThe [facility] on above:Performed By: #### VITOMI, VITB12 #### [facility] [place] Laboratory [address] [place] [address] Dr. Phani Marie RANGESSEE [facility] CenterComtr[facility] on above: Result Comment: <20 ng/mL Vit D deficient 20 - <30 ng/mL Vit D insufficient 30 - 100 ng/mL Vit D sufficient >100 ng/mL Potential ToxicityPerformed By: #### VITAD, VITB12 #### [facility] [place] Laboratory [address] [place] [address] Dr. Phani ElXR CHEST 2 Von 90-03-5880OP CHEST 2 VEXAM: XR CHEST 2 V HISTORY: Bronchitis COMPARISON: None. TECHNIQUE: PA and lateral views of the chest. FINDINGS: The cardiomediastinal silhouette is normal. No focal consolidation. There is no pneumothorax. No pleural effusion is noted. The osseous structures are intact. IMPRESSION: No focal consolidation. Electronically authenticated by: LORI FROST Date: 2022-05-05 10:05[facility], BeachwoodAmbulatory Visit Summaryon 35-93-6452Iqfstdjtdy Visit Summary FRANKY GAGNON I :1965 Visit [...] user Vitamin B12 deficiency Vitamin D deficiency [facility] Surgery Office/Clinic Noteon 24-14-3438Xibqgif Surgery Office/Clinic NoteChief Complaint colonoscopy follow up [...] virus vaccine, inactivated - Not Given Patient RefusesNormalMemorial Health SystemComment on above:Result Comment: Electronically Signed By: NABIL AMADOR, Bryson Steinberg\Date and Time Signed: 03/24/22 13:12 ESTReminderson 67-30-1304Rdfxlfkkx From: Kristine Harrison LPN To: N - Clinical; Sent: 03/24/2022 13:05:34 EST Show up: 01/26/2032 07:00:00 EST Subject: colonoscopy recall Due Date/Time: 02/26/2032 07:00:00 EST Reminder/Recall Patient is due for screening colonoscopy 02/26/2032.[facility] CampusCovid-19 PCR (CVDTBH)on 03-45-5176VJJK-CoV-2 (COVID-19) RNA MARISOL+probe Ql (Unsp spec)DetectedAbnormalNOT DETECTEDThe [facility], BeachwoodComment on above: Result Comment: This test is not yet approved or cleared by the [place] FDA. When there are no FDA-approved or cleared tests available, and other criteria are met, FDA can make tests available under an emergency access mechanism called an Emergency Use Authorization (EUA). The EUA for this test is supported by the [place] of Health and Human Service's (HHS's) declaration [...] longer be used).Performed By: #### CVDTBH #### [facility] [place] Laboratory [address] [place] [address] Dr. Phani ElINFLUENZA A AND B AGon 64-04-7207LIRWNSCLONAZJSelect [facility] on above:Result Comment: Negative for Flu A protein angiten. Infection due to Flu A cannot be ruled out. FluA angiten in the sample may be below the detection limit of the test.Performed By: #### INFLUAB ####[facility] [place] [address] [address]Dr. Phani ChangINFLUBNEGHSEE [facility] on above:Result Comment: Negative for Flu B protein antigen. Infection due to Flu B cannot be ruled out. FluB antigen in the sample may be below the detection limit of the test.Performed By: #### INFLUAB ####[facility] [place] [address]ib[address] [address]Dr. Phani ElINFLUENZA A AGNegativeNormalNEGATIVE SEE COMMENTThe [facility] on above:Performed By: #### INFLUAB ####[facility] [place] Fydjksomal[address] [place], [place] [address]Dr. Phani ChangINFLUENZA B AGNegativeNormalNEGATIVE SEE COMMENTThe [facility] [place] Comment on above:Performed By: #### INFLUAB ####[facility] [place] Bonwhdglcr[address] [place], [place] [address]Dr. Phain ElCovid-19 PCR ([facility])on 02-62-1391LNFR-CoV-2 (COVID-19) RNA MARISOL+probe Ql (Unsp spec)DetectedAbnormalNOT DETECTEDThe [facility] on above:Result Comment: This test is not yet approved or cleared by the [place] FDA. When there are no FDA-approved or cleared tests available, and other criteria are met, FDA can make tests available under an emergency access mechanism called an Emergency Use Authorization (EUA). The EUA for this test is supported by the [place] of Health and Human Service's declaration that [...] longer be used).Performed By: #### CVDTBH #### [facility] [place] Laboratory [address] [place] [address] Dr. Phani ElPathology Noteon 93-98-2330Yybjlvukn Note [id number]:127NormAdams County HospitalOutside Colonoscopyon 44-81-8612Zujsbej Colonoscopy [id number]#1.00CD:127NormAdams County HospitalReminderson 97-76-4767Ixmpaiill From: Kristine Harrison LPN To: Kristine Harrison LPN; Sent: 02/26/2022 11:14:25 EST Show up: 05/18/2022 07:00:00 EDT Subject: Ambulatory Reminder Due Date/Time: 05/27/2022 07:00:00 EDT Reminder/Recall log in to extra lap top in [place] to keep account activeNormAdams County HospitalLab Reportson 82-17-3947Mcr Reports [id number]#1.00CD:127[facility] CampusCovid-19 PCR ([facility]VDH[facility])on 31-81-2679ZSJJ-CoV-2 (COVID-19) RNA MARISOL+probe Ql (Unsp spec)Not detectedNormalNOT DETECTEDThe [facility], BeachwoodComment on above: Result Comment: This test is not yet approved or cleared by the [place] FDA. When there are no FDA-approved or cleared tests available, and other criteria are met, FDA can make tests available under an emergency access mechanism called an Emergency Use Authorization (EUA). The EUA for this test is supported by the [place] of Health and Human Service's (HHS's) declaration [...] symptoms consistent with SARS-CoV-2.Performed By: #### CVDTBH ####[facility] [place] [address]prts[address] [place], [place] [address]Kl. Phani ChangPre- Certification Formon 55-19-5603Hys-Certification Form [id number]#1.00CD:[address] [place], [place] [address]Consent for Procedure/Surgeryon 60-56-2161Tbqmjvl for Procedure/Surgery [id number]#1.00CD:[address] [place], [place] [address]Formson [id number]#1.00CD:[address] [place], [place] [address]Physician Referralon 10-36-5893Psubuszyc [id number]#1.00CD:[address] [place], [place] [address]MRI Knee w/o Lefton 59-10-4356JYN Knee w/o LeftHISTORY: Continued left-sided knee pain. [...] signed by Jason Sanchez on 12/25/2021 1505NormalNorthern Physicians Regional Medical CenterI LSPINE WO CONon 06-83-0931[facility] WO CON EXAMINATION: MRI LSPINE WO CON [...] Electronically authenticated by: NADINE GUERRA Date: 2021-12-04 17:54[facility] [place]woodXR LSPINE 2_3 VIEWSon 96-79-1765PZ LSPINE 2_3 VIEWSEXAMINATION: XR LSPINE 2_3 VIEWS HISTORY: Low back pain COMPARISON: 05/26/2016 FINDINGS: BONES: Normal alignment with no acute fracture or spondylolisthesis. Mild degenerative spondylosis and facet osteoarthropathy DISC SPACES: Mild multilevel disc space narrowing most significant at L5-S1 PARASPINOUS: Negative. No paraspinous abnormality is seen. OTHER: Negative. IMPRESSION: Mild degenerative changes Electronically authenticated by: NADINE GUERRA Date: 2021-09-30 07:20[facility] [place]woodMRI Knee w/o Lefton 64-48-7461KFM Knee w/o LeftHISTORY: Knee pain and instability. [...] and signed by Robby Diaz on 07/30/2021 1316NormalNohighlands-cashiers hospitaln [place] [employer] Pattern Inspector Vital Signs Date TimeVital SignValuePerforming EilzjiqkqAzvveksw79-45-8161 11:25-0400Body .1 Melvi Phoenix [employer]AL [employer] INSTRUCTOR-C Work Phone: [facility]09-23-2025 11:25-0400 Body mass index (BMI) [Ratio]41.8 kg/m2Jaymie Phoenix [employer]AL ART INSTRUCTOR-C Work Phone: [facility]09-23-2025 11:25-0400 Body urjoxnsbyrt25.5 [degF]Jaymie Phoenix [employer]AL ART INSTRUCTOR-C Work Phone: [facility]09-23-2025 11:25-0400 Body yxkzvh371.07 kgJaymie Phoenix [employer]IONAL ART INSTRUCTOR-C Work Phone: [facility]09-23-2025 11:25-0400 Diastolic blood rxlufmmb16 mm[Hg]Jaymie Phoenix [employer]IONAL ART INSTRUCTOR-C Work Phone: [facility]09-23-2025 11:25-0400 Heart rate87 /minLisa Maddyhholz [employer] D[employer]ENSIONAL ART INSTRUCTOR-C Work Phone: [facility]09-23-2025 11:25-0400 Respiratory rate22 /minLisa Maddyhholz [employer]ENSIONAL ART INSTRUCTOR-C Work Phone: [facility]09-23-2025 11:25-0400 SaO2% (BldA) [Mass fraction]92 %Jaymie Francoisz [employer]IONAL ART INSTRUCTOR-C Work Phone: [facility]09-23-2025 11:25-0400 Systolic blood xnafaomq797 mm[Hg]Jaymie Francoisz [employer] D[employer]IONAL ART INSTRUCTOR-C Work Phone: [facility]07-24-2025 13:00-0400 Body mass index (BMI) [Ratio]40.77 kg/l2Opcnoc Beatriz DO Work Phone: [facility]trrjqhxvd16-27-6475 13:00-0400Body ragycr196.13 kgLeanne Beatriz DO Work Phone: [facility]ettEuhkuuovtz74-38-0592 13:00-0400Diastolic blood bxuxzjjb34 mm[Hg]Nat Beatriz DO Work Phone: [facility]ettRxnyarfufi14-61-4860 13:00-0400Heart rate86 /min Nat Beatriz DO Work Phone: [facility]ettSejlniquue01-75-8493 13:00-2122HsO4% (BldA) [Mass fraction]94 %Nat Beatriz DO Work Phone: [facility]ettQjwirzzbim13-77-3924 13:00-0400Systolic blood hxalnaeq258 mm[Hg]Nat Beatriz DO Work Phone: [facility]ettDefyunfyja19-38-7511 10:09-0400Body mass index (BMI) [Ratio]40.9 kg/m2Lisa Maddyhholz [employer] D[employer]AL ART INSTRUCTOR Work Phone: noMoberly Regional Medical CenterBxjfrgdbhp01-60-3963 10:09-0400Body temperature 98.1 [degF]Jaymie Phoenix [employer]AL ART INSTRUCTOR Work Phone: [facility]ettJrwruhcaaf27-79-3293 10:09-0400Body tuqtea691.49 kgJaymie Phoenix [employer]AL ART INSTRUCTOR Work Phone: [facility]ettJejtzebtcx88-30-6112 10:09-0400Diastolic blood ksfdaimx73 mm[Hg]Jaymie Phoenix [employer]AL ART INSTRUCTOR Work Phone: [facility]ettDdttkulhsz15-88-0607 10:09-0400Heart rate80 /min Jaymie Phoenix [employer]AL ART INSTRUCTOR Work Phone: [facility]ettTpbnztzicu17-90-4531 10:09-0400Respiratory rate24 /minJaymie Phoenix THREE D[employer]IONAL ART INSTRUCTOR Work Phone: [facility]ettNcgsisnrjv19-63-2305 10:09-1571ClU4% (BldA) [Mass fraction]92 %Jaymie Phoenix [employer]AL ART INSTRUCTOR Work Phone: [facility]ettRqcsppnsip97-02-6163 10:09-0400Systolic blood eqcifbdp272 mm[Hg]Jaymie Phoenix [employer]AL ART INSTRUCTOR Work Phone: [facility]ettLsfuybiamc34-56-2385 14:53-0500Body mass index (BMI) [Ratio]40.7 kg/l8Efpjosfryve Wong DO Work Phone: [facility]ettJmwglgjnkm00-86-5713 14:53-0500Body idiiuo147.95 kgChristopher Wong DO Work Phone: noMoberly [facility] Medical CenterMvbkbamagj92-76-7407 14:53-0500Diastolic blood lfefigch56 mm[Hg]Christopher Wong DO Work Phone: noMoberly [facility] Medical CenterKarmtqgafu06-40-0874 14:53-0500Heart rate76 /min Christopher Wong DO Work Phone: noMoberly [facility] Medical CenterBsnpristpb99-30-6624 14:53-7869EaG8% (BldA) [Mass fraction]94 %Saumya Back DO Work Phone: noMoberly [facility] Medical CenterTkrtfisiva78-69-6540 14:53-0500Systolic blood nfgpqomi983 mm[Hg]Saumya Back DO Work Phone: noMoberly [facility] Medical CenterXxgvarxjgy93-57-8770 13:31-0500Body vhsukg989.1 Devinisa Alessandroz [employer]IONAL ART INSTRUCTOR Work Phone: [facility]ettHfkrtldnpm59-44-0259 13:31-0500Body mass index (BMI) [Ratio]40.94 kg/m2Lisa Ducholz [employer]AL ART INSTRUCTOR Work Phone: [facility]ettDvunbbnckc14-03-9561 13:31-0500Body temperature 98.1 [degF]Jaymie Alessandroz [employer]AL ART INSTRUCTOR Work Phone: [facility]ettOsrghogeem83-97-0117 13:31-0500Body .58 kgLisa Alessandroz [employer]AL ART INSTRUCTOR Work Phone: [facility]ettKmvkgmyzdq93-96-2249 13:31-0500Diastolic blood srswhyai60 mm[Hg]Jaymie Ducholz [employer]AL ART INSTRUCTOR Work Phone: [facility]ettNadrfohqra55-39-4523 13:31-0500Heart rate87 /min Jaymie Ducholz [employer]AL ART INSTRUCTOR Work Phone: [facility]ettUilmmdsidq88-51-4166 13:31-0500Respiratory rate18 /minLisa Francoisz [employer] D[employer]ENSIONAL ART INSTRUCTOR Work Phone: [facility]ettLlyccuizsp86-74-6398 13:31-2714BeB8% (BldA) [Mass fraction]94 %Jaymie Ducholz [employer] D[employer]ENSIONAL ART INSTRUCTOR Work Phone: [facility]ettHceiqbinjx73-41-5578 13:31-0500Systolic blood awmdgrqq829 mm[Hg]Jaymie Ducholz [employer] D[employer]ENSIONAL ART INSTRUCTOR Work Phone: [facility]ettPqxavttlmt09-32-5744 10:30-0500Body .1 Devinisa Ducholz THREE D[employer]ENSIONAL ART INSTRUCTOR Work Phone: [facility]ettThxwbihrri96-41-6836 10:30-0500Body mass index (BMI) [Ratio]40.6 kg/m2Lisa Maddyhholz THREE [employer]IONAL ART INSTRUCTOR Work Phone: [place] [address]Acwqannoda83-30-9879 10:30-0500Body temperature 98.1 [degF]Jaymie Maddyhholz THREE D[employer]IONAL ART INSTRUCTOR Work Phone: [place] [address]Zelffcguaq87-05-0767 10:30-0500Body yryhat909.68 kgLisa Aichholz [employer] D[employer]ENSIONAL ART INSTRUCTOR Work Phone: 1(655)668-[address] [place], [place] [address]Uareedmumo56-41-9278 10:30-0500Diastolic blood oiovjetu43 mm[Hg]Jaymie Aichholz [employer] D[employer]IONAL ART INSTRUCTOR Work Phone: 1(278)605-[address] [place] [address]-25-2024 10:30-0500Heart rate89 /min Jaymie Maddyhholz [employer] D[employer]ENSIONAL ART INSTRUCTOR Work Phone: [place] [address]Jjalealgnp78-51-6272 10:30-0500Respiratory rate19 /minLisa Maddyhholz [employer] D[employer]ENSIONAL ART INSTRUCTOR Work Phone: [phone] [place] [address]-25-2024 10:30-9237BaM4% (BldA) [Mass fraction]91 %Jaymie Maddyhholz THREE D[employer]IONAL ART INSTRUCTOR Work Phone: [place] [address]Yeryyvzuez24-03-7427 10:30-0500Systolic blood rzbdnrde751 mm[Hg]Jaymie Maddyhholz THREE D[employer]ENSIONAL ART INSTRUCTOR Work Phone: [facility]ettTmarwqedsl60-23-7046 13:13-0500Body mssrou250.1 cmLisa Aichholz [employer] D[employer]ENSIONAL ART INSTRUCTOR Work Phone: 1(880)741-[address] [place], [place] [address]Xcxkboohoy25-26-3690 13:13-0500Body mass index (BMI) [Ratio]42.9 kg/m2Lisa Aichholz THREE D[employer]IONAL ART INSTRUCTOR Work Phone: 1(895)549-[address] [place], [place] [address]Grzkpuczib45-09-2447 13:13-0500Body temperature 97.5 [degF]Jaymie Maddyhholz THREE D[employer]ENSIONAL ART INSTRUCTOR Work Phone: 1(490)765-[address] [place], [place] [address]Cisjfyxxca49-42-3385 13:13-0500Body jpyoql251.94 kgLisa Aichholz THREE DIMENSIONAL ART INSTRUCTOR Work Phone: [facility]ettVxbdtrrfoj54-98-1756 13:13-0500Diastolic blood fwpupezg18 mm[Hg]Jaymie Alessandroz THREE DIMENSIONAL ART INSTRUCTOR Work Phone: [facility]ettJkkrbupuxu26-30-0790 13:13-0500Heart rate71 /min Jaymie Maddyhholz THREE DIMENSIONAL ART INSTRUCTOR Work Phone: [facility]ettIanfgkrxyn89-88-6206 13:13-0500Respiratory rate20 /minLisa Ducholz THREE DIMENSIONAL ART INSTRUCTOR Work Phone: [facility]ettHirqaowmnq61-77-8955 13:13-7359IlO0% (BldA) [Mass fraction]95 %Jaymie Ducholz THREE DIMENSIONAL ART INSTRUCTOR Work Phone: [facility]ettSeuknqjsts99-61-2095 13:13-0500Systolic blood nmgtjiza106 mm[Hg]Jaymie Ducholz THREE DIMENSIONAL ART INSTRUCTOR Work Phone: [facility]ettAwbuxjosce47-79-3765 13:35-0500Body eldjkv050.1 cmLisa Ducholz THREE DIMENSIONAL ART INSTRUCTOR Work Phone: [facility]ettTxypkzmgxp53-41-7406 13:35-0500Body mass index (BMI) [Ratio]41.6 kg/m2Lisa Ducholz THREE DIMENSIONAL ART INSTRUCTOR Work Phone: [facility]ettKeuhubocra76-21-0910 13:35-0500Body temperature 98.4 [degF]Jaymie Ducholz THREE DIMENSIONAL ART INSTRUCTOR Work Phone: [facility]ettDjdumjbhvl98-15-4164 13:35-0500Body cxilza150.4 kgLisa Maddyhholz THREE DIMENSIONAL ART INSTRUCTOR Work Phone: [facility]ettGspzqqbhcl06-57-7410 13:35-0500Diastolic blood uyfsbgxs68 mm[Hg]Jaymie Ducholz THREE DIMENSIONAL ART INSTRUCTOR Work Phone: [facility]ettPtfmlylhbe04-84-8524 13:35-0500Heart rate77 /min Jaymie Maddyhholz THREE DIMENSIONAL ART INSTRUCTOR Work Phone: [facility]ettNnqgnpyoou29-00-3513 13:35-0500Respiratory rate18 /minLisa Aichholz THREE DIMENSIONAL ART INSTRUCTOR Work Phone: NOMober[facility] Medical CenterIgzpwiquoi53-25-8337 13:35-8546JsV1% (BldA) [Mass fraction]95 %Jaymie Alban THREE DIMENSIONAL ART INSTRUCTOR Work Phone: NOMoberly [facility] Medical CenterMrlrzmpdkh41-91-4634 13:35-0500Systolic blood qypympgs189 mm[Hg]Jaymie Alban THREE DIMENSIONAL ART INSTRUCTOR Work Phone: [facility]ettQxcbcxustb97-85-1902 13:27-0500Blood Pressure LocationMichael NILL General Surgery Zgodbkwx14-68-3659 13:27-0500Diastolic blood xpeoyrrq46 mm[Hg]Bryson NILL General Surgery Dupjfddh69-54-5025 13:27-0500Heart rate 72 /minMichael NILL General Surgery Gatzvbqp07-78-8897 13:27-0500 Respiratory rate16 /minMichael NILL General Surgery Ofluyrie81-45-2888 13:27-0500Systolic blood gyasrgzm072 mm[Hg]Bryson NILL [facility] [place] Encounters Encounter DateEncounter TypeCare ProviderFacilityStart: 11-20-2024 End: 24-03-9208fwszgyaprrXokmjuz Vamarjitas Giedraitis MDFacility:PM [place] Start: 10-31-2024 End: 28-09-3592ytoyfarjuuNxay J Aichholz THREE DIMENSIONAL ART INSTRUCTOR-C Work Phone: [facility] Work Phone: Start: 10-31-2024 End: 30-62-4406Piqoftv encounter procedureJaymie Phoenix THREE DIMENSIONAL ART INSTRUCTOR-C-[facility]ao Work Phone: Start: 67-66-1590Ddivvke encounter procedureJaymie Phoenix THREE DIMENSIONAL ART INSTRUCTOR-C Work Phone: [facility] Centertart: 21-84-6889Aii- patient / Non-visitLisa Lolis Phoenix NP-[facility] Work Phone: Start: 09-29-2024 End: 16-67-3832CicaauDqzk Aichholz THREE DIMENSIONAL ART INSTRUCTOR Work Phone: noms CWM FMComment on above:Gastro-esophageal reflux disease without esophagitis; Mixed hyperlipidemia ; Fibromyalgia; Localized edemaStart: 09-19-2024 End: 83-26-8092Suaarpbkk Result EncounterGeneric External Data ProviderNOMS External Department UnsolicitedStart: 09-19-2024 End: 97-12-1854Dmgitjgno Result EncounterGeneric External Data ProviderNOMS External Department UnsolicitedStart: 08-31-2024 End: 12-37-3565Mwrxti Rafaela Henderson DO Work Phone: noms PULMStart: 08-31-2024 End: 21-21-0655Lmllpj Rafaela Henderson DO Work Phone: noms PULMStart: 08-31-2024 End: 03-28-3400ykbkkdcetsAHZOLR K STRACKNot AvailableStart: 08-31-2024 End: 35-64-4545Nannla outpatient new 45 minutesNat Henderson DO Work Phone: noms PULMComment on above:WINSOME (obstructive sleep apnea) (Primary Dx); Cigarette smokerStart: 09-42-3934Kbltbgwpcx Earl HADLEY CredibleStart: 08-29-2024 End: 96-57-6475cbsgornibmIlnnrzjssju AbdelazizFacility:[facility] HospitalComment on above:Acute back pain with sciatica, unspecified laterality (Primary Dx)Start: 08-28-2024 End: 80-06-9132Ywwcuc OnlyJaymie Phoenix THREE DIMENSIONAL ART INSTRUCTOR Work Phone: noms CWM FMComment on above:Acute back pain with sciatica, unspecified laterality (Primary Dx)Start: 08-05-2024 End: 39-09-5649KbajsqWvuo Aichholz THREE DIMENSIONAL ART INSTRUCTOR Work Phone: [facility] CWM FMComment on above:Tobacco dependenceStart: 07-31-2024 End: 08-33-8482Kloazbp encounter procedureLisa Aichholz THREE DIMENSIONAL ART INSTRUCTOR Work Phone: [facility] CWM FMComment on above:Encounter for subsequent annual wellness visit (AWV) in Medicare patient (Primary Dx); Chronic kidney disease, stage 3a ([facility]); WINSOME (obstructive sleep apnea); COPD mixed type ([facility]); Gastroesophageal reflux disease, unspecified whether esophagitis present; Bilateral lower extremity edema; Anxiety and depression ; Tobacco dependence; Mixed hyperlipidemia ; Fibromyalgia; Environmental and seasonal allergies; Gastro-esophageal reflux disease without esophagitis; Personal history of other diseases of the nervous system and sense organs; Screening for lung cancerStart: 07-31-2024 End: 31-59-5285rlibpxblseZLUR AICHHOLZNot AvailableStart: 07-05-2024 End: 81-69-5189VvwbufPmno Aichholz THREE DIMENSIONAL ART INSTRUCTOR Work Phone: N[facility] CWM FMComment on above:FibromyalgiaStart: 06-26-2024 End: 24-03-2325FuwajoXmuv Aichholz [employer] Work Phone: NOMS CWM FMComment on above:Tobacco dependence (Primary Dx)Start: 06-14-2024 End: 18-10-2619FwexcwYqjv Aichholz [employer] Work Phone: NOMS CWM FMComment on above:Mixed hyperlipidemia ([facility]/HCC)Start: 05-09-2024 End: 71-60-4891UarfeyAhtj Aichholz [employer] Work Phone: NOMS CWM FMComment on above:FibromyalgiaStart: 04-19-2024 End: 26-46-5617NxgrmmVurw Aichholz [employer] Work Phone: NOMS CWM FMComment on above:Environmental and seasonal allergies (Primary Dx); COPD mixed type (CMS/HCC)Start: 04-08-2024 End: 11-33-6406FcuiemKhct Aichholz [employer] Work Phone: noMS CWM FMComment on above:Fibromyalgia; Localized edema; Mixed hyperlipidemia (CMS/HCC)Start: 03-14-2024 End: 06-43-5217Ngpooo outpatient new 30 minutesChristopher Wong DO Work Phone: aNA BELLEVUEComment on above:Drug-induced Parkinson's disease (CMS/HCC) (Primary Dx); TremorStart: 03-14-2024 End: 99-91-0716shojuhurrtSDHGYBHHJUJ HASSETTNot AvailableStart: 03-14-2024 End: 40-65-8782Rjraco flowsheetChristopher Wong DO Work Phone: ana BELLEVUEStart: 03-14-2024 End: 60-64-8440Gfnupt flowsheetChristopher Wong DO Work Phone: aNA BELLEVUEStart: 02-10-2024 End: 41-42-3190Gybxcl flowsheetLisa Aichholz [employer]CTOR Work Phone: noms CWM FMStart: 02-10-2024 End: 48-89-5533Lbgxwl flowsheetLisa Aichholz [employer] IN[employer]CTOR Work Phone: noMS CWM FMStart: 02-10-2024 End: 74-68-6503exodmyhrbeQFYB AICHHOLZNot AvailableStart: 02-10-2024 End: 63-52-6802Nepurg outpatient visit 25 minutesLisa Aichholz [employer] IN[employer] Work Phone: NOMS CWM FMComment on above:COPD with acute exacerbation (CMS/HCC) (Primary Dx); Morbid (severe) obesity due to excess calories (CMS/HCC); Body mass index (BMI) 40.0-44.9, adult (CMS/HCC); WINSOME (obstructive sleep apnea); COPD mixed type (CMS/HCC); Gastroesophageal reflux disease, unspecified whether esophagitis present; Tobacco dependence; Gastro-esophageal reflux disease without esophagitis; TremorStart: 02-03-2024 End: 77-72-2463PgpzatKtqg Aichholz [employer] Work Phone: noms CWM FMComment on above:FibromyalgiaStart: 01-27-2024 End: 70-17-5016Itgxixjjw Result EncounterLisa Aichholz [employer] IN[employer]CTOR Work Phone: noms External Department UnsolicitedStart: 01-27-2024 End: 76-82-7768Kyaskualy Result EncounterLisa Aichholz [employer] IN[employer]CTOR Work Phone: noms External Department UnsolicitedStart: 01-24-2024 End: 12-63-3277Vyarkomfn Result EncounterLisa Aichholz [employer] INSTRUCTOR Work Phone: noms External Department UnsolicitedStart: 01-24-2024 End: 20-80-0689Acwqbtqpd Result EncounterLisa Aichholz [employer] IN[employer]CTOR Work Phone: noms External Department UnsolicitedStart: 01-03-2024 End: 47-62-8413Rwdsmy flowsheetLisa Aichholz [employer] IN[employer]CTOR Work Phone: noms CWM FMStart: 01-03-2024 End: 39-61-6158Rjsmal flowsheetLisa Aichholz [employer] IN[employer]CTOR Work Phone: noms CWM FMStart: 01-03-2024 End: 06-68-3388Ucgciu outpatient visit 25 minutesLisa Aichholz [employer] IN[employer]CTOR Work Phone: noms CWM FMComment on above:WINSOME (obstructive sleep apnea) (Primary Dx); COPD mixed type (CMS/[facility]); Primary hypertension (CMS/HCC); Fibromyalgia; BMI 40.0-44.9, adult ([facility]); Tobacco dependence; Mixed hyperlipidemia (CMS/HCC); Vitamin D deficiency; Vitamin B12 deficiency; COPD with acute exacerbation ([facility])Start: 01-03-2024 End: 56-19-4345zjzekzlhvgFWBY AICHHOLZNot AvailableStart: 12-31-2023 End: 13-44-2266ObxgauClvi Aichholz [employer]CTOR Work Phone: noms CWM FMStart: 12-30-2023 End: 62-01-8703ZteffyMfie Aichholz [employer] IN[employer]CTOR Work Phone: noms CWM FMComment on above:FibromyalgiaStart: 12-25-2023 End: 83-48-2993Snagdilsv Result EncounterGeneric External Data ProviderNOMS External Department UnsolicitedStart: 12-25-2023 End: 30-56-0499Ehmmeronr Result EncounterGeneric External Data ProviderNOMS External Department UnsolicitedStart: 12-24-2023 End: 26-32-0901Qhuysapkd Result EncounterGeneric External Data ProviderNOMS External Department UnsolicitedStart: 12-24-2023 End: 00-60-7962Lwgrulitg Result EncounterGeneric External Data ProviderNOMS External Department UnsolicitedStart: 11-24-2023 End: 89-03-6478XwcrzeAaiy Aichholz [employer] IN[employer]CTOR Work Phone: noms CWM FMComment on above:Mixed hyperlipidemia (CMS/HCC)Start: 10-26-2023 End: 41-14-7478PbbxrzVfls Aichholz [employer] INSTRUCTOR Work Phone: noms CWM FMComment on above:Fibromyalgia; Gastro-esophageal reflux disease without esophagitisStart: 61-36-0886Iqquaue encounter procedureLisa Aichholz [employer] IN[employer]CTOR Work Phone: noms HealthcareStart: 05-31-2023 End: 22-19-4780Rucwsiqdj Result EncounterLisa Aichholz [employer] INSTRUCTOR Work Phone: noms External Department UnsolicitedStart: 05-31-2023 End: 67-51-3633Gzchoydfh Result EncounterLisa Aichholz [employer] INSTRUCTOR Work Phone: noms External Department UnsolicitedStart: 05-05-2023 End: 07-91-2012Ttgilaecn Result EncounterLisa Aichholz [employer] INSTRUCTOR Work Phone: noms External Department UnsolicitedStart: 05-05-2023 End: 16-81-7704Fzruxhife Result EncounterLisa Ducholz [employer] INSTRUCTOR Work Phone: noms External Department UnsolicitedStart: 05-03-2023 End: 87-75-5378Dwinswyov Result EncounterLisa Ducholz [employer] INSTRUCTOR Work Phone: noms External Department UnsolicitedStart: 05-03-2023 End: 31-78-8699Dpdnzjdvz Result EncounterLisa Ducholz [employer] INSTRUCTOR Work Phone: noms External Department UnsolicitedStart: 04-22-2023 End: 04-56-2276Zsnxwqfig Result EncounterGeneric External Data ProviderNOMS External Department UnsolicitedStart: 04-22-2023 End: 59-91-3755Akugpahtd Result EncounterGeneric External Data ProviderNOMS External Department UnsolicitedStart: 59-63-8027Ssbqww flowsheetLisa Maddyhholz [employer] INSTRUCTOR Work Phone: noms CWM FMStart: 03-25-2023 End: 48-47-2432Mxmshh flowsheetLisa Castañedahholz [employer] INSTRUCTOR Work Phone: noms CWM FMStart: 03-25-2023 End: 08-57-6122Djnkgxvnk Result EncounterLisa Ducholz [employer] INSTRUCTOR Work Phone: noms External Department UnsolicitedStart: 03-25-2023 End: 84-17-5343Kphgum outpatient visit 25 minutesLisa Maddyhholz [employer] IN[employer]CTOR Work Phone: noms CWM FMComment on above:Edema of right lower extremity (Primary Dx); BMI 40.0-44.9, adult (CMS/HCC); Shortness of breath; COPD mixed type (CMS/HCC); Primary hypertension (CMS/HCC); Bilateral lower extremity edemaStart: 03-24-2023 End: 47-96-8054Gpgbixsgi Result EncounterGeneric External Data ProviderNOMS External Department UnsolicitedStart: 03-24-2023 End: 63-56-3019Bzyegzpac Result EncounterGeneric External Data ProviderNOCO External Department UnsolicitedStart: 03-16-2023 End: 03-96-4422Frcwag outpatient visit 25 minutesJaymie Phoenix [employer] 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 Work Phone: NOON CWM FMComment on above:COPD mixed type (CMS/HCC) (Primary Dx); Tobacco dependence; BMI 40.0-44.9, adult (CMS/HCC); Body mass index [BMI] 40.0-44.9, adult (Z68.41); Primary hypertension (CMS/HCC); Bilateral lower extremity edemaStart: 63-27-3618lnlxmglpbrEHC JAYMIE ALBAN Facility:T6Kflty: 05-29-2022 End: 48-35-4979rfnjvtzbvwRWE JAYMIE ALBANFacility:Q6Qvveg: 05-05-2022 End: 75-96-8187hmpwyzhbxtKIM JAYMIE ALBANFacility:K5Cmxvc: 04-30-2022 End: 78-86-0853hlvgoqjarqZI JIM S ALLAN .Facility:L2Xmzhs: 03-31-2022 End: 57-72-5370impngudvibTU JIM S ALLAN .Facility:L4Kzrvu: 03-27-2022 ambulatoryDR JMI S ALLAN .Facility:L0Ikyfn: 03-24-2022 End: 92-50-8766khwkqyqjbaIkscggp R NILLFacility:[facility]: 03-17-2022 ambulatoryMichael R NILLFacility:[facility]: 03-10-2022 End: 52-11-1147bzhvypcifuBDS JAYMIE ALBANFacility:J6Znahk: 98-31-3582Ymsbnflve for preprocedural laboratory examinationDR JIM S ALLAN .[facility] Start: 02-28-2022 End: 02-80-5410Vobwkfmym for preprocedural laboratory examinationCNP JAYMIE ALBANFacility:P9Hqcgp: 02-28-2022 End: 09-44-6909kcgawbheetTVA JAYMIE ALBANFacility:R0Fqksj: 02-25-2022 End: 33-40-4715sioxjokanxKwlgouu R NILLFacility:CD:[id number]: 02-21-2022 End: 03-28-7590hdqqxtxwxhXF BRYSON NILPiper .Facility:I7Lsdye: 02-06-2022 End: 03-45-3168efqttfhoroJOIZ MATI .Facility:M9Qbppu: 02-03-2022 End: 48-04-8323oudmynpclgJqzk Pi[place] PhoenixFacility: [facility]vueStart: 02-03-2022 End: 88-92-0783Afnshff encounter procedureMichael R NILL General Surgery Nill/Said [place] Start: 01-13-2022 End: 19-19-2567aubbmasicyNC JIM S ALLAN .Facility:M2Xjrhn: 01-08-2022 End: 13-70-9616mqramxtakaSA JIM S ALLAN .Facility:E3Xwqgw: 01-06-2022 ambulatoryMichael R NILLFacility: [facility]vueStart: 12-23-2021 End: 56-39-0057oyvpbroqfsOI JIM S ALLAN .Facility:Q9Rkfbi: 12-09-2021 End: 64-45-9834hrcrcsdckbFR JIM S ALLAN .Facility:Y3Oghox: 12-04-2021 End: 11-47-3306tigoaufxgvUDW JAYMIE Aguilarcility:B7Kzxva: 12-03-2021 End: 26-04-3291wyvlvlmbjdUUITPM RODRIGUEZ .Facility:T3Uuhqu: 10-10-2021 End: 71-42-7055yfjoslmghuTD DEMETRIUS MENDEZ .Facility:U2Oottc: 09-29-2021 End: 13-66-1665ybboajxbnxDFJ JAYMIE Aguilarcility:O6Xbfdt: 09-20-2021 End: 72-82-3407gbfyyxbgwxREOIAA RODRIGUEZ .Facility: Procedures DateProcedureProcedure DetailPerforming ClinicianStart: 28-35-1880UC LUMBAR SPINE 6V W BENDINGGeneric External Data ProviderStart: 46-50-4759YrgchoqqrkgBrks Alban [employer] INSTRUCTOR Work Phone: Start: 44-56-9543NHP MICROALB CREAT RATIO RANDOMLisa Alessandroz [employer] INSTRUCTOR Work Phone: Start: 44-86-5493AAQ BASIC METABOLIC PANELLisa Alban [employer] INSTRUCTOR Work Phone: Start: 85-23-6945GSH LIPID PROFILE (FASTING)Jaymie Phoenix [employer] IN[employer]CTOR Work Phone: Start: 27-54-5292ZHRVT CULTURE 2Generic External Data ProviderStart: 95-56-3451TPFRA CULTURE 1Generic External Data ProviderStart: 66-83-4123BOLPE CULTURE 2Generic External Data ProviderStart: 60-02-0831JVMRT CULTURE 1Generic External Data ProviderStart: 05-22-5803FB LUNG SCREENING LOW DOSELisa Alban [employer] INSTRUCTOR Work Phone: Start: 24-58-8845SOV BASIC METABOLIC PANELLisa Alban [employer] INSTRUCTOR Work Phone: Start: 30-10-3772YX ECHO DOPPLER COMPLETELisa Alban [employer] INSTRUCTOR Work Phone: Start: 27-39-9953BP ABDOMEN PELVIS W CONLisa Phoenix [employer] INSTRUCTOR Work Phone: Start: 37-97-8461RG FACILITY EST COMPREHENSIVEGeneric External Data ProviderStart: 73-19-2665EY EXT VENOUS REFLUX SABRINA LMTDGeneric External Data ProviderStart: 94-26-9159Tpv-scan xtr veins unilateral/limited studyLisa Alban [employer] INSTRUCTOR Work Phone: Start: 09-71-1562YPT CBC WITH AUTO DIFFLisa Alessandroz [employer] INSTRUCTOR Work Phone: Start: 96-07-8431EOT CMP (CMP) (FOR [facility] USE) Jaymie Phoenix [employer] INSTRUCTOR Work Phone: Start: 66-87-1775NIM D-DIMERLisa Alban [employer] INSTRUCTOR Work Phone: Start: 20-73-2740SI CHEST 2VLisa Alban [employer] INSTRUCTOR Work Phone: Start: 18-81-3362YbtdfezsorjQhyw Alban [employer] INSTRUCTOR Work Phone: Start: 81-99-6570HVYRPLMZF BLOOD PRESSUREGeneric External Data ProviderStart: 83-83-0130DvlbonzwpxkPzjb Alban [employer] INSTRUCTOR Work Phone: Cesarean sectionMichael NILL Ligation of fallopian tubeMichael NILL Repair of meniscusMichael NILL Total abdominal hysterectomy with bilateral salpingo-oophorectomyMichael NILL Plan of Treatment DateCare ActivityDetailAuthorStart: 60-64-8928Lcodsbbgq for malignant neoplasm of colonNOMS HealthcareStart: 08-02-2025 End: 49-96-2976Wmtwiwq encounter hswlgermp13/25/2026 10:30 AM EDT Office Visit [facility] [address] [place] [phone] Jaymie Phoenix NP [address] [place] [address] [facility]OMS CWM FMStart: 06-23-2026Medicare Annual Wellness (AWV) Medicare Annual Wellness (AWV)[facility] HealthcareStart: 38-70-6615Ouvfejqep for malignant neoplasm of breastMammogramNOMS HealthcareStart: 26-46-0163Nqmwazipl for malignant neoplasm of colonFIT-DNANOMS HealthcareStart: 12-07-2024 End: 65-52-9976Niikjte encounter procedureNOMS SH PULMStart: 26-23-6404XHFOF-19 Vaccine ( season)COVID-19 Vaccine ( season)[facility] Start: 61-57-2902Pdpcnutyv vaccinationBEAVER [facility] HealthcareStart: 09-27-2024 End: 13-49-8259Pqvfesz encounter /20/2025 8:40 AM EDT Office Visit [facility] [address] [place] [address] Jaymie Phoenix, [employer]CTOR [address] [place] [address] [facility] FMStart: 08-31-2024 End: 05-27-1489Uebedjy encounter rwmbybqqv36/24/2025 1:00 PM EDT Consult [facility] [address] [place] [phone] Nat Henderson DO [address] [place] [address] NOMS PULMStart: 07-31-2024 End: 87-70-1186NS Chest for screening WO contrastCT lung screening low dose Imaging Routine Tobacco dependence Expected: 07/31/2024, Expires: 07/31/2025[facility] Work Phone: Comment on above:Expected: 07/31/2024, Expires: 07/31/2025Start: 07-31-2024 End: 20-17-8286Mfhijyt encounter jxbyfljbc68/23/2025 10:30 AM EDT Office Visit [facility] [address] [place] [address] Jaymie Phoenix, [employer] IN[employer]CTOR [address] [place] [address] [facility] FMStart: 98-65-7368Unygvyrxw vaccinationInfluenza Vaccine (#1)NOMS HealthcareComment on above:Postponed from 10/10/2023 (Patient Refused)Start: 06-05-2024 End: 04-19-6148Rlgacxc encounter huucryilg81/28/2025 3:40 PM EDT Office Visit [facility] [place] [address] [place] [address] Sherice Tristan NP [address] [place] [phone] [facility] LYNNtart: 04-25-2025Medicare Annual Wellness (AWV)Medicare Annual Wellness (AWV)[facility]S HealthcareStart: 05-10-2024 End: 79-88-4053Lzojdlk encounter bsblnennt05/02/2025 2:00 PM EDT Office Visit [facility] [address] [place] [address] Jaymie hPoenix, NILE [address] [place] [address] NOMS CWM FMStart: 75-75-5361Sojirwoaf vaccinationInfluenza Vaccine (#1)NOMS HealthcareComment on above:Postponed from 10/10/2023 (Patient Refused)Start: 77-18-6122Bupiigjsy for malignant neoplasm of breastMammogramNOMS HealthcareStart: 03-14-2024 End: 52-53-0919Mkxjkzo encounter yeddjyaay09/04/2025 3:00 PM EST Office Visit [facility] [address] [place] [phone] Saumya Back DO [address] [place], [place] [phone] TremorMAGDA SAEEDUEComment on above:TremorStart: 01-26-2024 End: 45-07-6857Tlidoue encounter qyzlskxcd82/18/2024 10:30 AM EST Office Visit [facility] [address] [place] [address] Jaymie Phoenix, NILE [address] [place] [address] NOM[facility] CWM FMStart: 01-03-2024 End: 402141-jdtiimiddvyozt D3 [Mass/volume] in Serum or PlasmaVitamin D 25 hydroxy Lab Routine Vitamin D deficiency Expected: 01/03/2024 (Approximate), Expires: 01/02/2025CO HealthcareComment on above:Expected: 01/03/2024 (Approximate), Expires: 01/02/2025Start: 01-03-2024 End: 04-59-1742Vrqum metabolic 1998 panel - Serum or PlasmaBasic metabolic panel Lab Routine Primary hypertension (CMS/HCC) Expected: 01/03/2024 (Approximate), Expires: 01/02/2025[facility] HealthcareComment on above:Expected: 01/03/2024 (Approximate), Expires: 01/02/2025Start: 01-03-2024 End: 42-26-8092Usbbffnhc (Vitamin B12) [Mass/volume] in Serum or PlasmaVitamin B12 Lab Routine Vitamin B12 deficiency Expected: 01/03/2024 (Approximate), Expires: 01/02/2025[facility] HealthcareComment on above:Expected: 01/03/2024 (Approximate), Expires: 01/02/2025Start: 01-03-2024 End: 61-55-9428Qykyg 1996 panel - Serum or PlasmaLipid panel Lab Routine Mixed hyperlipidemia (CMS/HCC) Expected: 01/03/2024 (Approximate), Expires:01/02/2025 [facility] HealthcareComment on above:Expected: 01/03/2024 (Approximate), Expires: 01/02/2025Start: 01-03-2024 End: 38-33-1695Kyzulbouoorl/Creatinine panel in random UrineMicroalbumin / creatinine, urine ratio Lab Routine Primary hypertension (CMS/HCC) Tobacco dependence Expected: 01/03/2024 (Approximate), Expires: 01/02/2025[facility] Healthcare Work Phone: Comment on above:Expected: 01/03/2024 (Approximate), Expires: 01/02/2025Start: 01-03-2024 End: 66-94-3631Aohxtsgwop complete panel - UrineUrinalysis with reflex microscopic (clean catch) Lab Routine Primary hypertension (CMS/HCC) Tobacco dependence Expected: 01/03/2024 (Approximate), Expires: 01/02/2025NOMS HealthcareComment on above:Expected: 01/03/2024 (Approximate), Expires: 01/02/2025Start: 01-03-2024 End: 09-94-8325Exfukcx encounter procedureNOMS CW FMComment on above:WINSOME (obstructive sleep apnea) (Primary Dx); COPD mixed type (CMS/HCC); Primary hypertension (CMS/HCC); Fibromyalgia; BMI 40.0-44.9, adult (CMS/HCC); Tobacco dependence; Mixed hyperlipidemia (CMS/HCC); Vitamin D deficiency; Vitamin B12 deficiencyStart: 31-58-4650Krkjqcwsv vaccinationInfluenza Vaccine (#1)NOMS HealthcareStart: 40-66-3729QWyN/Tdap/Td Vaccines (2 - Td or Tdap) DTaP/Tdap/Td Vaccines (2 - Td or Tdap)NOMS HealthcareStart: 29-23-4018Eeuudijht vaccinationInfluenza Vaccine (#1)NOMS HealthcareComment on above:Postponed from 10/09/2022 (Patient Refused)Start: 04-06-2023 End: 51-87-7763Nsontwh encounter bzzpaturb04/27/2024 1:40 PM EST Office Visit [facility] [address] [place] [address] Jaymie Phoenix, [employer] IN[employer]CTOR [address] [place] [address] [facility]OM[facility] CW FMStart: 03-25-2023 End: 17-71-6107DWU W Auto Differential panel - BloodCBC and differential Lab Routine Edema of right lower extremity Expected: 03/25/2023 (Approximate), Expires: 03/25/2024NOMS HealthcareComment on above:Expected: 03/25/2023 (Approximate), Expires: 03/25/2024Start: 03-25-2023 End: 06-21-7946Igygmuhpxuemn metabolic 2000 panel - Serum or PlasmaComprehensive metabolic panel Lab Routine Edema of right lower extremity Expected: 03/25/2023 (Approximate), Expires: 03/25/2024[facility] HealthcareComment on above:Expected: 03/25/2023 (Approximate), Expires: 03/25/2024Start: 03-25-2023 End: 79-92-2602Tihhiq D-dimer FEU [Mass/volume] in Platelet poor plasmaD-dimer, quantitative Lab Routine Edema of right lower extremity Expected: 03/25/2023 (Approximate), Expires: 03/25/2024NOMS HealthcareComment on above:Expected: 03/25/2023 (Approximate), Expires: 03/25/2024Start: 03-25-2023 End: 58-57-6181LO.doppler Lower extremity vein - rightVascular US lower extremity venous duplex right Imaging STAT Edema of right lower extremity Expected: 03/25/2023, Expires: 03/25/2024[facility] Work Phone: Comment on above:Expected: 03/25/2023, Expires: 03/25/2024Start: 03-25-2023 End: 56-07-6408TX Chest 2 ViewsXR chest 2 views Imaging Routine Edema of right lower extremity Shortness of breath Expected: 03/25/2023, Expires: 03/25/2024 NOMS HealthcareComment on above:Expected: 03/25/2023, Expires: 03/25/2024Start: 67-26-4393Mbannxaew for malignant neoplasm of cervixHPV/CotestNOMS Healthcare Start: 68-78-0831Ryutpxgsr for malignant neoplasm of cervixPap SmearNOMS HealthcareStart: 67-08-4317SVK Vaccines (1 of 1 - Standard series)MMR Vaccines (1 of 1 - Standard series)[facility] HealthcareStart: 07-09-1964Medicare Annual Wellness (AWV)Medicare [...] CULTURE 2 Lab Routine 12/25/2023 9:20 PM ESTNOCO Healthcare Immunizations Immunization DateImmunizationNotesCare FmcuziojZtvmkifb15-81-3205ctcycer toxoid, reduced diphtheria toxoid, and acellular pertussis vaccine, adsorbedLisa Aichholz [employer] Work Phone: [facility] Iewjvkcykj46-34-0113Diymchh KYSO-XuT-8Lvey Aichholz [employer] INSTRUCTOR Work Phone: [facility] HealthcareNEGATED: Highlighted row has not occurred!05-09-6703bjptdofop virus vaccine, unspecified formulationMichael NILL General Surgery [place] Payers DatePayer CategoryPayerPolicy [id number] Health [id number] MEDICARE ADVANTAGE [id number] 2016Medicare [id number] 2..1.804900.3.57[id number] 2..1.404933.3.57[id number] 2.16.840.1.654248.3.57[id number] 2.16.840.1.305724.3.579.[id number] 2.16.840.1.407924.3.579.[id number] 2.16.840.1.028759.3.579.2.95755-48-0239Xyjalar9895694 2.840.1.331478.3.579.2.81219-44-3385Jjsghed8799771 2.840.1.142816.3.579.2.95343-59-4546Axsslrj5065705 2.840.1.112721.3.579.2.55224-56-0445Sndxezh5646929 2.840.1.080155.3.579.2.46921-55-8638Zxorbxj6678905 2.840.1.313642.3.579.2.29160-00-7652Hppeohy1979549 2.840.1.821477.3.579.2.66721-96-3406Iejjxgk4268335 2.840.1.413647.3.579.2.04917-97-1751Uscnrpx3395860 2.16840.1.191228.3.579.2.97737-75-5014Hmgksrc3688594 2.840.1.716663.3.579.2.27103-03-3210Pumsxzq7769869 2.840.1.337436.3.579.2.97073-52-5831Tnsgaff9958236 2.16840.1.245310.3.579.2.31201-10-9241Ksxnfxh6190592 2.16.840.1.284647.3.579.2.85726-54-5880Fitcjrg5069418 2.16.840.1.592702.3.57[id number] 2.16.840.1.739048.3.579.2.27602-69-1096Ylympua5516923 2.16.840.1.838680.3.579.2.12944-45-9567Tasbyzz5009488 2.16.840.1.752070.3.579.2.16332-10-4402Pmnlarn4097844 2.16840.1.232726.3.579.2.92285-77-8429Lwxmjzp3799146 2.16840.1.914733.3.579.[id number] 2.840.1.434963.3.57[id number] 2.840.1.159556.3.57[id number] 2.840.1.067825.3.579.2.40506-96-8941Gpdmjzt77991383 2.840.1.637246.3.579.[id number] 2.16840.1.330326.3.579.2.039417-89-2439Aukwwdg8787969 2.840.1.236403.3.579.2.689923-72-5791Lbxssit0215087 2.840.1.637500.3.579.2.208553-85-1303Hbzzuca7742073 2.16840.1.009939.3.579.2.[id number] 2..840.1.372743.3.579.2.34495-98-6015Daiccaj Health [id number] [id number] [id number] 2.16.840.1.349529.3.579.2.531UnknownRegular [id number]-[id number] Social History DateTypeDetailFacilityStart: 59-08-4489Cfimcrv smoking statusHeavy tobacco smoker (finding)[facility]Start: 51-83-0205Qcrekxc smoking status NeverGeneral Surgery BellevueStart: 03-16-2023 End: 79-69-8525Xje [facility]art: [facility] End: 62-44-5430Ahxskkc smoking status NHISSmokes tobacco dailyNOMS Healthcare History of tobacco useCigarette SmokerNOMS HealthcareStart: 01-26-2023 End: 10-69-9391Uhuijohyok smoked current (pack per day) - Ulhlygll0CCXP HealthcareStart: 01-26-2023 End: 02-92-6361Iolerhp use and exposureSmokeless tobacco non-userNOMS Healthcare Start: 03-16-2023 End: 93-32-0773Sardlkv intakeEx-drinker (finding)[facility] HealthcareStart: 01-61-8292Ztrhfww Cdkcxwe63-50 cigarettes/dayNOMS HealthcareStart: 01-26-2023 Alcohol CommentsociallyNOMS HealthcareStart: 76-72-0003Xfn Assigned At BirthNot on fileNOMS HealthcareWithin the [...] smoked [facility] Work Phone: SexFemale (finding)[facility] Start: 35-92-0161Lay Assigned At [facility] Functional Status TpinExcbqrtaqxMxfiyzUoilgmcq96-61-0407Qheaapk Health Questionnaire 2 item (PHQ- 2) [Reported][facility]mnp[facility]jl74[facility]-8785AZK-5 quick depression assessment panel [Reported.PHQ][facility] MonettKyqxpslhxh12-51-2317Abgir score [AUDIT-C]1 06/03/2023 3:03 PM Clarisa Zarco MANOMS Xnpurxmihu26-41-8017Gylefog Health Questionnaire 2 item (PHQ-2) [Reported][facility] MonettWogldvdekz93-55-7212BXH-9 quick depression assessment panel [Reported.PHQ][facility] MonettSbwlcrmtcb64-41-2698Rinjbzj Health Questionnaire 2 item (PHQ-2) [Reported][facility] MonettTavdetdrpf51-70-3705NGD-8 quick depression assessment panel [Reported.PHQ][facility] [id number] Health Questionnaire 2 item (PHQ-2) [Reported][facility] [id number]-9 quick depression assessment panel [Reported.PHQ][facility] [id number] Functional StatusN/AGeneral Surgery [facility] Clinical Notes 12-09-2021 to 08-31-2024 Note Date & [id number] History of Present illness Narrative* Nat Henderson, [...] by mouth at bedtime 90 tablet 1 Njxxcao-Enanmihiwzw-Cysrwpvztj (Breztri Aerosphere) 160-9-4.8 MCG/ACT aerosol Inhale 2 [...] (5000 UT) tablet as directed Orally HYDROcodone-acetaminophen ([place]) 5-325 MG tablet Take 1 tablet by [...] (BMI) of 40.0 to 44.9 in adult ([facility]) 01/26/2023 COPD mixed type ([facility]) 01/26/2023 DENIES HX OF BLOOD BORNE [...] WINSOME. Nat Henderson DO documented in this encounterCox [id number] History of Present illness Narrative* Jaymie Phoenix [...] Morbid (severe) obesity due to excess calories ([facility]) Discussed with patient their BMI (actual, verses [...] EDTAssociated Problem(s): Chronic kidney disease, stage 3a ([facility]) Check Chem 8 * CLARISA MAHONEY - [...] Nightly atorvastatin (LIPITOR) 20 mg, Oral, Nightly Ikuctoz-Cbaiavljlcg-Yzebsnsspg (Breztri Aerosphere) 160-9-4.8 MCG/ACT aerosol 2 puffs, [...] (BMI) of 40.0 to 44.9 in adult ([facility]) 01/26/2023 COPD mixed type ([facility]) 01/26/2023 DENIES HX OF BLOOD BORNE [...] of the risks of continued smoking: stroke, MS, all forms of cancer, lung disease, and [...] PFT prior to seeing pulmonology Relevant Medications Lxpmigi-Dwuzjthvyil-Rdegvuozaj (Breztri Aerosphere) 160-9-4.8 MCG/ACT aerosol Anxiety and [...] has been counseled on the risks of joint terminal attack controller use, would like to continue WINSOME (obstructive [...] MG tablet Chronic kidney disease, stage 3a ([facility]) Check Chem 8 Screening for lung [...] of the risks of continued smoking: stroke, MS, all forms of cancer, lung disease, and [...] sudden . Compliant: no documented in this [facility]06-23-2025 Instructions* Patient Instructions* Jaymie Phoenix NP - 07/31/2024 10:30 AM EDT Get labs completed Chantix: take as directed, contact me if worsening in mental health documented in this [facility]05-07-2025 Telephone encounter Note* Telephone Encounter - Jaymie Phoenix NP - 06/14/2024 8:55 PM EDT She is also due for her AWV, please call to schedule [place] [id number] Miscellaneous Notes* Telephone Encounter - Jaymie Phoenix NP - 06/14/2024 8:55 PM EDT She is also due for her AWV, please call to schedule [place] documented in this [facility]05-07-2025 Telephone encounter Note* Telephone Encounter - Kym Adam - 06/14/2024 4:06 PM EDT 90 day supply [id number] Miscellaneous Notes* Telephone Encounter - Kym Adam - 06/14/2024 4:06 PM EDT 90 day supply documented in this encounterCox [id number] History of Present illness Narrative* Saumya Back, [...] (BMI) of 40.0 to 44.9 in adult ([facility]) 01/26/2023 COPD mixed type (CMS/HCC) 01/26/2023 DENIES [...] , wrist extensors , wrist flexor , venetian blind cleaner strength 5/5. LUE Strength deltoid , biceps , triceps , wrist extensors , wrist flexor , venetian blind cleaner strength 5/5. RLE Strength illopsoas, quadriceps, tibialis [...] reflex 1+ . Forrest's sign negative. Coordination: Uvfrxd-zd-syfd testing and rapid alternating movements are normal [...] plan, and return instructions documented in this encounterCox [id number] History of Present illness Narrative* Jaymie Phoenix [...] (BMI) of 40.0 to 44.9 in adult ([facility]) 01/26/2023 COPD mixed type (CMS/HCC) 01/26/2023 DENIES [...] of the risks of continued smoking: stroke, MS, all forms of cancer, lung disease, and [...] has been counseled on the risks of joint terminal attack controller use, would like to continue * Jaymie [...] sudden . Compliant: no documented in this encounterCox [id number] History of Present illness Narrative* Jaymie Phoenix NP - 01/03/2024 11:14 AM ESTAssociated Problem(s): COPD with acute exacerbation ([facility]) Pt reports getting better , feels better [...] (BMI) of 40.0 to 44.9 in adult ([facility]) 01/26/2023 COPD mixed type ([facility]) 01/26/2023 DENIES HX OF BLOOD BORNE DISEASES Depression ([facility]) Fibromyalgia Open wound of left foot 01/26/2023 Open wound of second toe 01/26/2023 Other acute sinusitis 01/26/2023 Primary hypertension ([facility]) 01/26/2023 Tobacco dependence 01/26/2023 Past Surgical History: [...] of the risks of continued smoking: stroke, MS, all forms of cancer, lung disease, and [...] Vitamin D 25 hydroxy BMI 40.0-44.9, adult (CMS/[facility]) WINSOME (obstructive sleep apnea) - Primary Non compliant with use of PAP COPD with acute exacerbation ([facility]) Pt reports getting better , feels better than in hospital I.S. 10 times hour every hour awake Recommend quitting smoking Continue nebulizers Refer to pulmonary * Jaymie Phoenix NP - 01/03/2024 6:48 AM ESTAssociated Problem(s): Mixed hyperlipidemia ([facility]) On statin therapy, check labs * Jaymie Phoenix NP - 01/03/2024 6:46 AM ESTAssociated Problem(s): Tobacco dependence The patient has been advised of the risks of continued smoking: stroke, MS, all forms of cancer, lung disease, and [...] 01/03/2024 6:45 AM ESTAssociated Problem(s): Primary hypertension ([facility]) Please check blood pressure daily and record [...] with use of PAP documented in this [facility]11-25-2024 Instructions* Patient Instructions* Jaymie Phoenix NP - 01/03/2024 10:30 AM EST Referral to division officer weapons department Consider patches documented in this [facility]02-15-2024 History of Present illness Narrative* Jaymie Phoenix [...] (BMI) of 40.0 to 44.9 in adult ([facility]) 01/26/2023 COPD mixed type ([facility]) 01/26/2023 DENIES HX OF BLOOD BORNE DISEASES Depression ([facility]) Fibromyalgia Open wound of left foot 01/26/2023 Open wound of second toe 01/26/2023 Other acute sinusitis 01/26/2023 Primary hypertension ([facility]) 01/26/2023 Tobacco dependence 01/26/2023 Past Surgical History: [...] XR chest 2 views documented in this encounterCox [id number] History of Present illness Narrative* Jaymie Phoenix [...] (BMI) of 40.0 to 44.9 in adult ([facility]) 01/26/2023 COPD mixed type ([facility]) 01/26/2023 DENIES HX OF BLOOD BORNE DISEASES Depression ([facility]) Fibromyalgia Open wound of left foot [...] in albuterol inhaler prn BMI 40.0-44.9, adult ([facility]) Other Visit Diagnoses Body mass index [BMI] 40.0-44.9, adult (Z68.41) documented in this encounterCox [id number] NoteCONSULTATION CONSULTATION DATE: 04/30/2022 TO: Nurse Alban [...] our office on an as needed basis.[facility] [id number] Note OPERATIVE NOTE OPERATION DATE: 02/25/2022 PREOPERATIVE [...] room in good condition. [facility] NoteCONSULTATION CONSULTATION DATE: 02/06/2022 HISTORY OF [...] be followed up in the clinic thereafter.[facility] [id number] NoteChief Complaint consultation for positive Cologuard HPI [...] last 30 days Tobacco (more content not included)...[facility]Comment [facility]:Result Comment: Electronically Signed By: NABIL AMADOR, Bryson Steinberg\Date and Time Signed: 02/03/22 13:53 [id number] NoteCONSULTATION CONSULTATION DATE: 01/08/2022 HISTORY OF PRESENT [...] be followed up in the clinic thereafter.[facility] [id number] NoteCONSULTATION CONSULTATION DATE: 12/09/2021 CHIEF COMPLAINT: Low [...] like to proceed. CC: Jaymie Phoenix, CNPThe [facility] HospitalEvaluation + Plan note No data available for this section General Surgery [place] Evaluation note* Diagnosis COPD mixed type (CMS/HCC)- Primary Tobacco dependence Tobacco use disorder BMI 40.0-44.9, adult (CMS/HCC) Body mass index [BMI] 40.0-44.9, adult (Z68.41) Primary hypertension (CMS/HCC) Unspecified essential hypertension Bilateral lower extremity edema documented in this encounter [facility] HealthcareEvaluation note* Diagnosis Edema of right lower extremity- Primary BMI 40.0-44.9, adult (CMS/HCC) Shortness of breath COPD mixed type (CMS/HCC) Primary hypertension (CMS/HCC) Unspecified essential hypertension Bilateral lower extremity edema documented in this encounter [facility] HealthcareEvaluation note* Diagnosis Primary hypertension [...] dependence Tobacco use disorder BMI 40.0-44.9, adult ([facility]) COPD mixed type ([facility]) WINSOME (obstructive sleep apnea) Obstructive sleep apnea (adult) (pediatric) Encounter for subsequent annual wellness visit (AWV) in Medicare patient- Primary Edema of right lower extremity Anxiety and depression ([facility]) Tobacco dependence Tobacco use disorder BMI 40.0-44.9, adult ([facility]) Fibromyalgia Unspecified myalgia and myositis Primary hypertension ([facility]) Unspecified essential hypertension COPD mixed type ([facility]) Mixed hyperlipidemia ([facility]) Mixed hyperlipidemia documented in this encounter [facility]* Diagnosis Primary hypertension ([facility])- Primary Unspecified essential hypertension Mixed hyperlipidemia ([facility]) Mixed hyperlipidemia Fibromyalgia Unspecified myalgia and myositis Migraine without aura and without status migrainosus, not intractable ([facility]) Class 3 severe obesity due to excess calories without serious comorbidity with body mass index (BMI) of 40.0 to 44.9 in adult ([facility]) Tobacco dependence Tobacco use disorder Bilateral lower extremity edema Acute non-recurrent sinusitis of other sinus COPD mixed type ([facility]) Open wound of second toe of left foot, initial encounter Open wound of left foot, initial encounter COPD mixed type ([facility])- Primary Tobacco dependence Tobacco use disorder BMI 40.0-44.9, adult ([facility]) Body mass index [BMI] 40.0-44.9, adult (Z68.41) Primary hypertension ([facility]) Unspecified essential hypertension Bilateral lower extremity edema Edema of right lower extremity- Primary BMI 40.0-44.9, adult ([facility]) Shortness of breath COPD mixed type ([facility]) Primary hypertension ([facility]) Unspecified essential hypertension Bilateral lower extremity edema Bilateral lower extremity edema- Primary Primary hypertension ([facility]) Unspecified essential hypertension COPD mixed type ([facility]) Class 3 severe obesity due to excess calories without serious comorbidity with body mass index (BMI) of 40.0 to 44.9 in adult ([facility]) Tobacco dependence Tobacco use disorder Bilateral lower extremity edema- Primary Tobacco dependence Tobacco use disorder BMI 40.0-44.9, adult ([facility]) COPD mixed type ([facility]) WINSOME (obstructive sleep apnea) Obstructive sleep apnea (adult) (pediatric) Encounter for subsequent annual wellness visit (AWV) in Medicare patient- Primary Edema of right lower extremity Anxiety and depression ([facility]) Tobacco dependence Tobacco use disorder BMI 40.0-44.9, adult ([facility]) Fibromyalgia Unspecified myalgia and myositis Primary hypertension ([facility]) Unspecified essential hypertension COPD mixed type ([facility]) Fibromyalgia Unspecified myalgia and myositis documented in this encounter [facility] HealthcareEvaluation note* Diagnosis Primary hypertension ([facility])- Primary Unspecified essential hypertension Mixed hyperlipidemia ([facility]) Mixed hyperlipidemia Fibromyalgia Unspecified myalgia and myositis Migraine without aura and without status migrainosus, not intractable ([facility]) Class 3 severe obesity due to excess calories without serious comorbidity with body mass index (BMI) of 40.0 to 44.9 in adult ([facility]) Tobacco dependence Tobacco use disorder Bilateral lower extremity edema Acute non-recurrent sinusitis of other sinus COPD mixed type ([facility]) Open wound of second toe of left foot, initial encounter Open wound of left foot, initial encounter COPD mixed type ([facility]/HCC)- Primary Tobacco dependence Tobacco use disorder BMI 40.0-44.9, adult ([facility]) Body mass index [BMI] 40.0-44.9, adult (Z68.41) Primary hypertension ([facility]) Unspecified essential hypertension Bilateral lower extremity edema Edema of right lower extremity- Primary BMI 40.0-44.9, adult ([facility]) Shortness of breath COPD mixed type ([facility]) Primary hypertension ([facility]) Unspecified essential hypertension Bilateral lower extremity edema Bilateral lower extremity edema- Primary Primary hypertension ([facility]) Unspecified essential hypertension COPD mixed type ([facility]) Class 3 severe obesity due to excess calories without serious comorbidity with body mass index (BMI) of 40.0 to 44.9 in adult ([facility]) Tobacco dependence Tobacco use disorder Bilateral lower extremity edema- Primary Tobacco dependence Tobacco use disorder BMI 40.0-44.9, adult ([facility]) COPD mixed type ([facility]) WINSOME (obstructive sleep apnea) Obstructive sleep apnea (adult) (pediatric) Encounter for subsequent annual wellness visit (AWV) in Medicare patient- Primary Edema of right lower extremity Anxiety and depression ([facility]) Tobacco dependence Tobacco use disorder BMI 40.0-44.9, adult ([facility]) Fibromyalgia Unspecified myalgia and myositis Primary hypertension (CMS/HCC) Unspecified essential hypertension COPD mixed type (CMS/HCC) WINSOME (obstructive sleep apnea)- Primary Obstructive sleep apnea (adult) (pediatric) COPD mixed type (CMS/HCC) Primary hypertension (CMS/HCC) Unspecified essential hypertension Fibromyalgia Unspecified myalgia and myositis BMI 40.0-44.9, adult ([facility]) Tobacco dependence Tobacco use disorder Mixed hyperlipidemia (CMS/HCC) Mixed hyperlipidemia Vitamin D deficiency Vitamin B12 deficiency Other B-complex deficiencies COPD with acute exacerbation ([facility]) documented in this encounter [facility]* Diagnosis Fibromyalgia Unspecified myalgia and myositis Gastro-esophageal reflux disease without esophagitis documented in this encounter [facility]* Diagnosis Primary hypertension ([facility]/HCC)- Primary Unspecified essential hypertension Mixed hyperlipidemia ([facility]) Mixed hyperlipidemia Fibromyalgia Unspecified myalgia and myositis Migraine without aura and without status migrainosus, not intractable ([facility]) Class 3 severe obesity due to excess calories without serious comorbidity with body mass index (BMI) of 40.0 to 44.9 in adult ([facility]) Tobacco dependence Tobacco use disorder Bilateral lower extremity edema Acute non-recurrent sinusitis of other sinus COPD mixed type (CMS/[facility]) Open wound of second toe of left foot, initial encounter Open wound of left foot, initial encounter COPD mixed type (CMS/HCC)- Primary Tobacco dependence Tobacco use disorder BMI 40.0-44.9, adult ([facility]) Body mass index [BMI] 40.0-44.9, adult (Z68.41) Primary hypertension ([facility]) Unspecified essential hypertension Bilateral lower extremity edema Edema of right lower extremity- Primary BMI 40.0-44.9, adult ([facility]) Shortness of breath COPD mixed type (CMS/HCC) Primary hypertension (CMS/HCC) Unspecified essential hypertension Bilateral lower extremity edema Bilateral lower extremity edema- Primary Primary hypertension ([facility]) Unspecified essential hypertension COPD mixed type (CMS/HCC) Class 3 severe obesity due to excess calories without serious comorbidity with body mass index (BMI) of 40.0 to 44.9 in adult ([facility]) Tobacco dependence Tobacco use disorder Bilateral lower extremity edema- Primary Tobacco dependence Tobacco use disorder BMI 40.0-44.9, adult ([facility]) COPD mixed type ([facility]/HCC) WINSOME (obstructive sleep apnea) Obstructive sleep apnea (adult) (pediatric) Encounter for subsequent annual wellness visit (AWV) in Medicare patient- Primary Edema of right lower extremity Anxiety and depression ([facility]) Tobacco dependence Tobacco use disorder BMI 40.0-44.9, adult (CMS/[facility]) Fibromyalgia Unspecified myalgia and myositis Primary hypertension (CMS/HCC) Unspecified essential hypertension COPD mixed type (CMS/HCC) WINSOME (obstructive sleep apnea)- Primary Obstructive sleep apnea (adult) (pediatric) COPD mixed type (CMS/HCC) Primary hypertension (CMS/HCC) Unspecified essential hypertension Fibromyalgia Unspecified myalgia and myositis BMI 40.0-44.9, adult ([facility]) Tobacco dependence Tobacco use disorder Mixed hyperlipidemia (CMS/HCC) Mixed hyperlipidemia Vitamin D deficiency Vitamin B12 deficiency Other B-complex deficiencies COPD with acute exacerbation (CMS/[facility]) Fibromyalgia Unspecified myalgia and myositis documented in this encounter [facility] HealthcareEvaluation note* Diagnosis Primary hypertension ([facility])- Primary Unspecified essential hypertension Mixed hyperlipidemia (CMS/HCC) Mixed hyperlipidemia Fibromyalgia Unspecified myalgia and myositis Migraine without aura and without status migrainosus, not intractable (CMS/[facility]) Class 3 severe obesity due to excess calories without serious comorbidity with body mass index (BMI) of 40.0 to 44.9 in adult ([facility]) Tobacco dependence Tobacco use disorder Bilateral lower [...] right lower extremity- Primary BMI 40.0-44.9, adult ([facility]) Shortness of breath COPD mixed type (CMS/HCC) Primary hypertension (CMS/HCC) Unspecified essential hypertension Bilateral lower extremity edema Bilateral lower extremity edema- Primary Primary hypertension (CMS/HCC) Unspecified essential hypertension COPD mixed type (CMS/HCC) Class 3 severe obesity due to excess calories without serious comorbidity with body mass index (BMI) of 40.0 to 44.9 in adult ([facility]) Tobacco dependence Tobacco use disorder Bilateral lower extremity edema- Primary Tobacco dependence Tobacco use disorder BMI 40.0-44.9, adult ([facility]) COPD mixed type ([facility]) WINSOME (obstructive sleep apnea) Obstructive sleep apnea (adult) (pediatric) Encounter for subsequent annual wellness visit (AWV) in Medicare patient- Primary Edema of right lower extremity Anxiety and depression ([facility]) Tobacco dependence Tobacco use disorder BMI 40.0-44.9, adult ([facility]) Fibromyalgia Unspecified myalgia and myositis Primary hypertension ([facility]) Unspecified essential hypertension COPD mixed type ([facility]) WINSOME (obstructive sleep apnea)- Primary Obstructive sleep apnea (adult) (pediatric) COPD mixed type ([facility]) Primary hypertension ([facility]) Unspecified essential hypertension Fibromyalgia Unspecified myalgia and myositis BMI 40.0-44.9, adult ([facility]) Tobacco dependence Tobacco use disorder Mixed hyperlipidemia ([facility]) Mixed hyperlipidemia Vitamin D deficiency Vitamin B12 deficiency Other B-complex deficiencies COPD with acute exacerbation ([facility]) COPD with acute exacerbation ([facility])- Primary Morbid (severe) obesity due to excess calories ([facility]) Body mass index (BMI) 40.0-44.9, adult ([facility]) WINSOME (obstructive sleep apnea) Obstructive sleep apnea (adult) (pediatric) COPD mixed type ([facility]) Gastroesophageal reflux disease, unspecified whether esophagitis present Tobacco dependence Tobacco use disorder Gastro-esophageal reflux disease without esophagitis Tremor Abnormal involuntary movements documented in this encounter [facility] HealthcareEvaluation note* Diagnosis Primary hypertension ([facility])- Primary Unspecified essential hypertension Mixed hyperlipidemia ([facility]) Mixed hyperlipidemia Fibromyalgia Unspecified myalgia and myositis Migraine without aura and without status migrainosus, not intractable ([facility]) Class 3 severe obesity due to excess calories without serious comorbidity with body mass index (BMI) of 40.0 to 44.9 in adult ([facility]) Tobacco dependence Tobacco use disorder Bilateral lower extremity edema Acute non-recurrent sinusitis of other sinus COPD mixed type ([facility]) Open wound of second toe of left foot, initial encounter Open wound of left foot, initial encounter COPD mixed type ([facility])- Primary Tobacco dependence Tobacco use disorder BMI 40.0-44.9, adult ([facility]) Body mass index [BMI] 40.0-44.9, adult (Z68.41) Primary hypertension (CMS/HCC) Unspecified essential hypertension Bilateral lower extremity edema Edema of right lower extremity- Primary BMI 40.0-44.9, adult ([facility]) Shortness of breath COPD mixed type (CMS/HCC) Primary hypertension (CMS/HCC) Unspecified essential hypertension Bilateral lower extremity edema Bilateral lower extremity edema- Primary Primary hypertension ([facility]/HCC) Unspecified essential hypertension COPD mixed type (CMS/HCC) Class 3 severe obesity due to excess calories without serious comorbidity with body mass index (BMI) of 40.0 to 44.9 in adult ([facility]) Tobacco dependence Tobacco use disorder Bilateral lower extremity edema- Primary Tobacco dependence Tobacco use disorder BMI 40.0-44.9, adult ([facility]) COPD mixed type ([facility]/HCC) WINSOME (obstructive sleep apnea) Obstructive sleep apnea (adult) (pediatric) Encounter for subsequent annual wellness visit (AWV) in Medicare patient- Primary Edema of right lower extremity Anxiety and depression ([facility]) Tobacco dependence Tobacco use disorder BMI 40.0-44.9, adult ([facility]) Fibromyalgia Unspecified myalgia and myositis Primary hypertension ([facility]) Unspecified essential hypertension COPD mixed type ([facility]/HCC) WINSOME (obstructive sleep apnea)- Primary Obstructive sleep apnea (adult) (pediatric) COPD mixed type ([facility]/HCC) Primary hypertension ([facility]) Unspecified essential hypertension Fibromyalgia Unspecified myalgia and myositis BMI 40.0-44.9, adult ([facility]) Tobacco dependence Tobacco use disorder Mixed hyperlipidemia ([facility]) Mixed hyperlipidemia Vitamin D deficiency Vitamin B12 deficiency Other B-complex deficiencies COPD with acute exacerbation ([facility]/HCC) COPD with acute exacerbation ([facility]/HCC)- Primary Morbid (severe) obesity due to excess calories ([facility]) Body mass index (BMI) 40.0-44.9, adult ([facility]) WINSOME (obstructive sleep apnea) Obstructive sleep apnea (adult) (pediatric) COPD mixed type ([facility]/HCC) Gastroesophageal reflux disease, unspecified whether esophagitis present Tobacco dependence Tobacco use disorder Gastro-esophageal reflux disease without esophagitis Tremor Abnormal involuntary movements 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 Parkinsonism Tremor Abnormal involuntary movements documented in this encounter [facility] HealthcareEvaluation note* Diagnosis Primary hypertension ([facility]/HCC)- Primary Unspecified essential hypertension Mixed hyperlipidemia (CMS/[facility]) Mixed hyperlipidemia Fibromyalgia Unspecified myalgia and myositis Migraine without aura and without status migrainosus, not intractable ([facility]) Class 3 severe obesity due to excess calories without serious comorbidity with body mass index (BMI) of 40.0 to 44.9 in adult ([facility]) Tobacco dependence Tobacco use disorder Bilateral lower extremity edema Acute non-recurrent sinusitis of other sinus COPD mixed type ([facility]) Open wound of second toe of left foot, initial encounter Open wound of left foot, initial encounter COPD mixed type (CMS/HCC)- Primary Tobacco dependence Tobacco use disorder BMI 40.0-44.9, adult ([facility]) Body mass index [BMI] 40.0-44.9, adult (Z68.41) Primary hypertension (CMS/[facility]) Unspecified essential hypertension Bilateral lower extremity edema Edema of right lower extremity- Primary BMI 40.0-44.9, adult ([facility]) Shortness of breath COPD mixed type ([facility]) Primary hypertension ([facility]) Unspecified essential hypertension Bilateral lower extremity edema Bilateral lower extremity edema- Primary Primary hypertension (CMS/[facility]) Unspecified essential hypertension COPD mixed type ([facility]) Class 3 severe obesity due to excess calories without serious comorbidity with body mass index (BMI) of 40.0 to 44.9 in adult ([facility]) Tobacco dependence Tobacco use disorder Bilateral lower extremity edema- Primary Tobacco dependence Tobacco use disorder BMI 40.0-44.9, adult ([facility]) COPD mixed type ([facility]) WINSOME (obstructive sleep apnea) Obstructive sleep apnea (adult) (pediatric) Encounter for subsequent annual wellness visit (AWV) in Medicare patient- Primary Edema of right lower extremity Anxiety and depression ([facility]) Tobacco dependence Tobacco use disorder BMI 40.0-44.9, adult ([facility]) Fibromyalgia Unspecified myalgia and myositis Primary hypertension ([facility]) Unspecified essential hypertension COPD mixed type ([facility]) WINSOME (obstructive sleep apnea)- Primary Obstructive sleep apnea (adult) (pediatric) COPD mixed type ([facility]) Primary hypertension ([facility]) Unspecified essential hypertension Fibromyalgia Unspecified myalgia and myositis BMI 40.0-44.9, adult ([facility]) Tobacco dependence Tobacco use disorder Mixed hyperlipidemia ([facility]) Mixed hyperlipidemia Vitamin D deficiency Vitamin B12 deficiency Other B-complex deficiencies COPD with acute exacerbation ([facility]) COPD with acute exacerbation ([facility])- Primary Morbid (severe) obesity due to excess calories ([facility]) Body mass index (BMI) 40.0-44.9, adult ([facility]) WINSOME (obstructive sleep apnea) Obstructive sleep apnea (adult) (pediatric) COPD mixed type ([facility]) Gastroesophageal reflux disease, unspecified whether esophagitis present Tobacco dependence Tobacco use disorder Gastro-esophageal reflux disease without esophagitis Tremor Abnormal involuntary movements Fibromyalgia Unspecified myalgia and myositis Localized edema Edema Mixed hyperlipidemia ([facility]) Mixed hyperlipidemia documented in this encounter [facility] HealthcareEvaluation note* Diagnosis Primary hypertension ([facility])- Primary Unspecified essential hypertension Mixed hyperlipidemia ([facility]) Mixed hyperlipidemia Fibromyalgia Unspecified myalgia and myositis Migraine without aura and without status migrainosus, not intractable ([facility]) Class 3 severe obesity due to excess calories without serious comorbidity with body mass index (BMI) of 40.0 to 44.9 in adult ([facility]) Tobacco dependence Tobacco use disorder Bilateral lower extremity edema Acute non-recurrent sinusitis of other sinus COPD mixed type ([facility]) Open wound of second toe of left foot, initial encounter Open wound of left foot, initial encounter COPD mixed type ([facility])- Primary Tobacco dependence Tobacco use disorder BMI 40.0-44.9, adult ([facility]) Body mass index [BMI] 40.0-44.9, adult (Z68.41) Primary hypertension ([facility]) Unspecified essential hypertension Bilateral lower extremity edema Edema of right lower extremity- Primary BMI 40.0-44.9, adult ([facility]) Shortness of breath COPD mixed type ([facility]) Primary hypertension ([facility]) Unspecified essential hypertension Bilateral lower extremity edema Bilateral lower extremity edema- Primary Primary hypertension ([facility]) Unspecified essential hypertension COPD mixed type ([facility]) Class 3 severe obesity due to excess calories without serious comorbidity with body mass index (BMI) of 40.0 to 44.9 in adult ([facility]) Tobacco dependence Tobacco use disorder Bilateral lower extremity edema- Primary Tobacco dependence Tobacco use disorder BMI 40.0-44.9, adult ([facility]) COPD mixed type ([facility]) WINSOME (obstructive sleep apnea) Obstructive sleep apnea (adult) (pediatric) Encounter for subsequent annual wellness visit (AWV) in Medicare patient- Primary Edema of right lower extremity Anxiety and depression ([facility]) Tobacco dependence Tobacco use disorder BMI 40.0-44.9, adult ([facility]) Fibromyalgia Unspecified myalgia and myositis Primary hypertension ([facility]) Unspecified essential hypertension COPD mixed type ([facility]) WINSOME (obstructive sleep apnea)- Primary Obstructive sleep apnea (adult) (pediatric) COPD mixed type ([facility]/HCC) Primary hypertension ([facility]) Unspecified essential hypertension Fibromyalgia Unspecified myalgia and myositis BMI 40.0-44.9, adult ([facility]) Tobacco dependence Tobacco use disorder Mixed hyperlipidemia ([facility]) Mixed hyperlipidemia Vitamin D deficiency Vitamin B12 deficiency Other B-complex deficiencies COPD with acute exacerbation ([facility]) COPD with acute exacerbation ([facility])- Primary Morbid (severe) obesity due to excess calories ([facility]) Body mass index (BMI) 40.0-44.9, adult ([facility]) WINSOME (obstructive sleep apnea) Obstructive sleep apnea (adult) (pediatric) COPD mixed type ([facility]) Gastroesophageal reflux disease, unspecified whether esophagitis present Tobacco dependence Tobacco use disorder Gastro-esophageal reflux disease without esophagitis Tremor Abnormal involuntary movements Environmental and seasonal allergies- Primary COPD mixed type ([facility]) documented in this encounter [facility] HealthcareEvaluation note* Diagnosis Primary hypertension ([facility])- Primary Unspecified essential hypertension Mixed hyperlipidemia ([facility]) Mixed hyperlipidemia Fibromyalgia Unspecified myalgia and myositis Migraine without aura and without status migrainosus, not intractable ([facility]) Class 3 severe obesity due to excess calories without serious comorbidity with body mass index (BMI) of 40.0 to 44.9 in adult Tobacco dependence Tobacco use disorder Bilateral lower extremity edema Acute non-recurrent sinusitis of other sinus COPD mixed type ([facility]) Open wound of second toe of left foot, initial encounter Open wound of left foot, initial encounter COPD mixed type ([facility])- Primary Tobacco dependence Tobacco use disorder BMI 40.0-44.9, adult ([facility]) Body mass index [BMI] 40.0-44.9, adult (Z68.41) Primary hypertension ([facility]) Unspecified essential hypertension Bilateral lower extremity edema Edema of right lower extremity- Primary BMI 40.0-44.9, adult ([facility]) Shortness of breath COPD mixed type ([facility]/HCC) Primary hypertension ([facility]/HCC) Unspecified essential hypertension Bilateral lower extremity edema Bilateral lower extremity edema- Primary Primary hypertension ([facility]) Unspecified essential hypertension COPD mixed type (CMS/HCC) Class 3 severe obesity due to excess calories without serious comorbidity with body mass index (BMI) of 40.0 to 44.9 in adult Tobacco dependence Tobacco use disorder Bilateral lower extremity edema- Primary Tobacco dependence Tobacco use disorder BMI 40.0-44.9, adult ([facility]) COPD mixed type ([facility]) WINSOME (obstructive sleep apnea) Obstructive sleep apnea (adult) (pediatric) Encounter for subsequent annual wellness visit (AWV) in Medicare patient- Primary Edema of right lower extremity Anxiety and depression ([facility]) Tobacco dependence Tobacco use disorder BMI 40.0-44.9, adult ([facility]) Fibromyalgia Unspecified myalgia and myositis Primary hypertension ([facility]) Unspecified essential hypertension COPD mixed type ([facility]) WINSOME (obstructive sleep apnea)- Primary Obstructive sleep apnea (adult) (pediatric) COPD mixed type ([facility]/HCC) Primary hypertension ([facility]) Unspecified essential hypertension Fibromyalgia Unspecified myalgia and myositis BMI 40.0-44.9, adult ([facility]) Tobacco dependence Tobacco use disorder Mixed hyperlipidemia ([facility]) Mixed hyperlipidemia Vitamin D deficiency Vitamin B12 deficiency Other B-complex deficiencies COPD with acute exacerbation ([facility] COPD with acute exacerbation ([facility])- Primary Morbid (severe) obesity due to excess calories ([facility]) Body mass index (BMI) 40.0-44.9, adult ([facility]) WINSOME (obstructive sleep apnea) Obstructive sleep apnea (adult) (pediatric) COPD mixed type ([facility]) Gastroesophageal reflux disease, unspecified whether esophagitis present Tobacco dependence Tobacco use disorder Gastro-esophageal reflux disease without esophagitis Tremor Abnormal involuntary movements Fibromyalgia Unspecified myalgia and myositis documented in this encounter [facility] HealthcareEvaluation note* Diagnosis Primary hypertension ([facility])- Primary Unspecified essential hypertension Mixed hyperlipidemia ([facility]) Mixed hyperlipidemia Fibromyalgia Unspecified myalgia and myositis Migraine without aura and without status migrainosus, not intractable ([facility]) Class 3 severe obesity due to excess calories without serious comorbidity with body mass index (BMI) of 40.0 to 44.9 in adult Tobacco dependence Tobacco use disorder Bilateral lower extremity edema Acute non-recurrent sinusitis of other sinus COPD mixed type ([facility]/HCC) Open wound of second toe of left foot, initial encounter Open wound of left foot, initial encounter COPD mixed type (CMS/HCC)- Primary Tobacco dependence Tobacco use disorder BMI 40.0-44.9, adult ([facility]) Body mass index [BMI] 40.0-44.9, adult (Z68.41) Primary hypertension (CMS/HCC) Unspecified essential hypertension Bilateral lower extremity edema Edema of right lower extremity- Primary BMI 40.0-44.9, adult ([facility]) Shortness of breath COPD mixed type (CMS/HCC) Primary hypertension (CMS/HCC) Unspecified essential hypertension Bilateral lower extremity edema Bilateral lower extremity edema- Primary Primary hypertension (CMS/[facility]) Unspecified essential hypertension COPD mixed type (CMS/[facility]) Class 3 severe obesity due to excess calories without serious comorbidity with body mass index (BMI) of 40.0 to 44.9 in adult Tobacco dependence Tobacco use disorder Bilateral lower extremity edema- Primary Tobacco dependence Tobacco use disorder BMI 40.0-44.9, adult ([facility]) COPD mixed type ([facility]) WINSOME (obstructive sleep apnea) Obstructive sleep apnea (adult) (pediatric) Encounter for subsequent annual wellness visit (AWV) in Medicare patient- Primary Edema of right lower extremity Anxiety and depression ([facility]) Tobacco dependence Tobacco use disorder BMI 40.0-44.9, adult ([facility]) Fibromyalgia Unspecified myalgia and myositis Primary hypertension ([facility]) Unspecified essential hypertension COPD mixed type ([facility]) WINSOME (obstructive sleep apnea)- Primary Obstructive sleep apnea (adult) (pediatric) COPD mixed type ([facility]) Primary hypertension ([facility]) Unspecified essential hypertension Fibromyalgia Unspecified myalgia and myositis BMI 40.0-44.9, adult ([facility]) Tobacco dependence Tobacco use disorder Mixed hyperlipidemia ([facility]) Mixed hyperlipidemia Vitamin D deficiency Vitamin B12 deficiency Other B-complex deficiencies COPD with acute exacerbation ([facility]) COPD with acute exacerbation ([facility])- Primary Morbid (severe) obesity due to excess calories ([facility]) Body mass index (BMI) 40.0-44.9, adult ([facility]) WINSOME (obstructive sleep apnea) Obstructive sleep apnea (adult) (pediatric) COPD mixed type (CMS/HCC) Gastroesophageal reflux disease, unspecified whether esophagitis present Tobacco dependence Tobacco use disorder Gastro-esophageal reflux disease without esophagitis Tremor Abnormal involuntary movements Mixed hyperlipidemia ([facility]) Mixed hyperlipidemia documented in this encounter [facility] HealthcareEvaluation note* Diagnosis Primary hypertension ([facility])- Primary Unspecified essential hypertension Mixed hyperlipidemia ([facility]) Mixed hyperlipidemia Fibromyalgia Unspecified myalgia and myositis Migraine without aura and without status migrainosus, not intractable ([facility]) Class 3 severe obesity due to excess calories without serious comorbidity with body mass index (BMI) of 40.0 to 44.9 in adult Tobacco dependence Tobacco use disorder Bilateral lower extremity edema Acute non-recurrent sinusitis of other sinus COPD mixed type ([facility]) Open wound of second toe of left foot, initial encounter Open wound of left foot, initial encounter COPD mixed type (CMS/HCC)- Primary Tobacco dependence Tobacco use disorder BMI 40.0-44.9, adult ([facility]) Body mass index [BMI] 40.0-44.9, adult (Z68.41) Primary hypertension (CMS/[facility]) Unspecified essential hypertension Bilateral lower extremity edema Edema of right lower extremity- Primary BMI 40.0-44.9, adult ([facility]) Shortness of breath COPD mixed type ([facility]) Primary hypertension ([facility]) Unspecified essential hypertension Bilateral lower extremity edema Bilateral lower extremity edema- Primary Primary hypertension ([facility]) Unspecified essential hypertension COPD mixed type ([facility]) Class 3 severe obesity due to excess calories without serious comorbidity with body mass index (BMI) of 40.0 to 44.9 in adult Tobacco dependence Tobacco use disorder Bilateral lower extremity edema- Primary Tobacco dependence Tobacco use disorder BMI 40.0-44.9, adult ([facility]) COPD mixed type ([facility] [facility] WINSOME (obstructive sleep apnea) Obstructive sleep apnea (adult) (pediatric) Encounter for subsequent annual wellness visit (AWV) in Medicare patient- Primary Edema of right lower extremity Anxiety and depression ([facility]) Tobacco dependence Tobacco use disorder BMI 40.0-44.9, adult ([facility]) Fibromyalgia Unspecified myalgia and myositis Primary hypertension ([facility]) Unspecified essential hypertension COPD mixed type ([facility]) WINSOME (obstructive sleep apnea)- Primary Obstructive sleep apnea (adult) (pediatric) COPD mixed type (CMS/HCC) Primary hypertension (CMS/HCC) Unspecified essential hypertension Fibromyalgia Unspecified myalgia and myositis BMI 40.0-44.9, adult ([facility]) Tobacco dependence Tobacco use disorder Mixed hyperlipidemia (CMS/HCC) Mixed hyperlipidemia Vitamin D deficiency Vitamin B12 deficiency Other B-complex deficiencies COPD with acute exacerbation (CMS/HCC) COPD with acute exacerbation ([facility])- Primary Morbid (severe) obesity due to excess calories ([facility]) Body mass index (BMI) 40.0-44.9, adult ([facility]) WINSOME (obstructive sleep apnea) Obstructive sleep apnea (adult) (pediatric) COPD mixed type ([facility]/HCC) Gastroesophageal reflux disease, unspecified whether esophagitis present Tobacco dependence Tobacco use disorder Gastro-esophageal reflux disease without esophagitis Tremor Abnormal involuntary movements Tobacco dependence- Primary Tobacco use disorder documented in this encounter [facility] HealthcareEvaluation note* Diagnosis Primary hypertension ([facility])- Primary Unspecified essential hypertension Mixed hyperlipidemia ([facility]) Mixed hyperlipidemia Fibromyalgia Unspecified myalgia and myositis Migraine without aura and without status migrainosus, not intractable ([facility]) Class 3 severe obesity due to excess calories without serious comorbidity with body mass index (BMI) of 40.0 to 44.9 in adult Tobacco dependence Tobacco use disorder Bilateral lower extremity edema Acute non-recurrent sinusitis of other sinus COPD mixed type ([facility]) Open wound of second toe of left foot, initial encounter Open wound of left foot, initial encounter COPD mixed type ([facility]/HCC)- Primary Tobacco dependence Tobacco use disorder BMI 40.0-44.9, adult ([facility]) Body mass index [BMI] 40.0-44.9, adult (Z68.41) Primary hypertension ([facility]) Unspecified essential hypertension Bilateral lower extremity edema Edema of right lower extremity- Primary BMI 40.0-44.9, adult ([facility]) Shortness of breath COPD mixed type ([facility]/HCC) Primary hypertension ([facility]/HCC) Unspecified essential hypertension Bilateral lower extremity edema Bilateral lower extremity edema- Primary Primary hypertension ([facility]) Unspecified essential hypertension COPD mixed type (CMS/HCC) Class 3 severe obesity due to excess calories without serious comorbidity with body mass index (BMI) of 40.0 to 44.9 in adult Tobacco dependence Tobacco use disorder Bilateral lower extremity edema- Primary Tobacco dependence Tobacco use disorder BMI 40.0-44.9, adult ([facility]) COPD mixed type ([facility]) WINSOME (obstructive sleep apnea) Obstructive sleep apnea (adult) (pediatric) Encounter for subsequent annual wellness visit (AWV) in Medicare patient- Primary Edema of right lower extremity Anxiety and depression ([facility]) Tobacco dependence Tobacco use disorder BMI 40.0-44.9, adult ([facility]) Fibromyalgia Unspecified myalgia and myositis Primary hypertension ([facility]) Unspecified essential hypertension COPD mixed type ([facility]) WINSOME (obstructive sleep apnea)- Primary Obstructive sleep apnea (adult) (pediatric) COPD mixed type ([facility]) Primary hypertension ([facility]) Unspecified essential hypertension Fibromyalgia Unspecified myalgia and myositis BMI 40.0-44.9, adult ([facility]) Tobacco dependence Tobacco use disorder Mixed hyperlipidemia ([facility]) Mixed hyperlipidemia Vitamin D deficiency Vitamin B12 deficiency Other B-complex deficiencies COPD with acute exacerbation ([facility]) COPD with acute exacerbation ([facility])- Primary Morbid (severe) obesity due to excess calories ([facility]) Body mass index (BMI) 40.0-44.9, adult ([facility]) WINSOME (obstructive sleep apnea) Obstructive sleep apnea (adult) (pediatric) COPD mixed type ([facility]) Gastroesophageal reflux disease, unspecified whether esophagitis present Tobacco dependence Tobacco use disorder Gastro-esophageal reflux disease without esophagitis Tremor Abnormal involuntary movements Fibromyalgia Unspecified myalgia and myositis documented in this encounter [facility] HealthcareEvaluation note* Diagnosis Primary hypertension- Primary Unspecified essential hypertension Mixed hyperlipidemia Mixed hyperlipidemia Fibromyalgia Unspecified myalgia and myositis Migraine without aura and without status migrainosus, not intractable Class 3 severe obesity due to excess calories without serious comorbidity with body mass index (BMI) of 40.0 to 44.9 in adult ([facility]) Tobacco dependence Tobacco use disorder Bilateral lower extremity edema Acute non-recurrent sinusitis of other sinus COPD mixed type ([facility]) Open wound of second toe of left foot, initial encounter Open wound of left foot, initial encounter COPD mixed type (HCC)- Primary Tobacco dependence Tobacco use disorder BMI 40.0-44.9, adult ([facility]) Body mass index [BMI] 40.0-44.9, adult (Z68.41) Primary hypertension Unspecified essential hypertension Bilateral lower extremity edema Edema of right lower extremity- Primary BMI 40.0-44.9, adult ([facility]) Shortness of breath COPD mixed type ([facility]) Primary hypertension Unspecified essential hypertension Bilateral lower extremity edema Bilateral lower extremity edema- Primary Primary hypertension Unspecified essential hypertension COPD mixed type (HCC) Class 3 severe obesity due to excess calories without serious comorbidity with body mass index (BMI) of 40.0 to 44.9 in adult ([facility]) Tobacco dependence Tobacco use disorder Bilateral lower extremity edema- Primary Tobacco dependence Tobacco use disorder BMI 40.0-44.9, adult ([facility]) COPD mixed type ([facility]) WINSOME (obstructive sleep apnea) Obstructive sleep apnea (adult) (pediatric) Encounter for subsequent annual wellness visit (AWV) in Medicare patient- Primary Edema of right lower extremity Anxiety and depression Tobacco dependence Tobacco use disorder BMI 40.0-44.9, adult ([facility]) Fibromyalgia Unspecified myalgia and myositis Primary hypertension Unspecified essential hypertension COPD mixed type ([facility]) WINSOME (obstructive sleep apnea)- Primary Obstructive sleep apnea (adult) (pediatric) COPD mixed type ([facility]) Primary hypertension Unspecified essential hypertension Fibromyalgia Unspecified myalgia and myositis BMI 40.0-44.9, adult ([facility]) Tobacco dependence Tobacco use disorder Mixed hyperlipidemia Mixed hyperlipidemia Vitamin D deficiency Vitamin B12 deficiency Other B-complex deficiencies COPD with acute exacerbation (HCC) COPD with acute exacerbation (HCC)- Primary Morbid (severe) obesity due to excess calories ([facility]) Body mass index (BMI) 40.0-44.9, adult ([facility]) WINSOME (obstructive sleep apnea) Obstructive sleep apnea (adult) (pediatric) COPD mixed type (HCC) Gastroesophageal reflux disease, unspecified whether esophagitis present Tobacco dependence Tobacco use disorder Gastro-esophageal reflux disease without esophagitis Tremor Abnormal involuntary movements Encounter for subsequent annual wellness visit (AWV) in Medicare patient- Primary Chronic kidney disease, stage 3a ([facility]) WINSOME (obstructive sleep apnea) Obstructive sleep apnea [...] for lung cancer documented in this encounter [facility] HealthcareEvaluation note* Diagnosis Primary hypertension- Primary Unspecified essential hypertension Mixed hyperlipidemia Mixed hyperlipidemia Fibromyalgia Unspecified myalgia and myositis Migraine without aura and without status migrainosus, not intractable Class 3 severe obesity due to excess calories without serious comorbidity with body mass index (BMI) of 40.0 to 44.9 in adult ([facility]) Tobacco dependence Tobacco use disorder Bilateral lower extremity edema Acute non-recurrent sinusitis of other sinus COPD mixed type (HCC) Open wound of second toe of left foot, initial encounter Open wound of left foot, initial encounter COPD mixed type (HCC)- Primary Tobacco dependence Tobacco use disorder BMI 40.0-44.9, adult ([facility]) Body mass index [BMI] 40.0-44.9, adult (Z68.41) Primary hypertension Unspecified essential hypertension Bilateral lower extremity edema Edema of right lower extremity- Primary BMI 40.0-44.9, adult ([facility]) Shortness of breath COPD mixed type (HCC) Primary hypertension Unspecified essential hypertension Bilateral lower extremity edema Bilateral lower extremity edema- Primary Primary hypertension Unspecified essential hypertension COPD mixed type (HCC) Class 3 severe obesity due to excess calories without serious comorbidity with body mass index (BMI) of 40.0 to 44.9 in adult ([facility]) Tobacco dependence Tobacco use disorder Bilateral lower extremity edema- Primary Tobacco dependence Tobacco use disorder BMI 40.0-44.9, adult ([facility]) COPD mixed type (HCC) WINSOME (obstructive sleep apnea) Obstructive sleep apnea (adult) (pediatric) Encounter for subsequent annual wellness visit (AWV) in Medicare patient- Primary Edema of right lower extremity Anxiety and depression Tobacco dependence Tobacco use disorder BMI 40.0-44.9, adult ([facility]) Fibromyalgia Unspecified myalgia and myositis Primary hypertension Unspecified essential hypertension COPD mixed type (HCC) WINSOME (obstructive sleep apnea)- Primary Obstructive sleep apnea (adult) (pediatric) COPD mixed type (HCC) Primary hypertension Unspecified essential hypertension Fibromyalgia Unspecified myalgia and myositis BMI 40.0-44.9, adult ([facility]) Tobacco dependence Tobacco use disorder Mixed hyperlipidemia Mixed hyperlipidemia Vitamin D deficiency Vitamin B12 deficiency Other B-complex deficiencies COPD with acute exacerbation (HCC) COPD with acute exacerbation (HCC)- Primary Morbid (severe) obesity due to excess calories ([facility]) Body mass index (BMI) 40.0-44.9, adult ([facility]) WINSOME (obstructive sleep apnea) Obstructive sleep apnea (adult) (pediatric) COPD mixed type (HCC) Gastroesophageal reflux disease, unspecified whether esophagitis present Tobacco dependence Tobacco use disorder Gastro-esophageal reflux disease without esophagitis Tremor Abnormal involuntary movements Encounter for subsequent annual wellness visit (AWV) in Medicare patient- Primary Chronic kidney disease, stage 3a ([facility]) WINSOME (obstructive sleep apnea) Obstructive sleep apnea [...] Tobacco use disorder documented in this encounter [facility] HealthcareEvaluation note* Diagnosis Primary hypertension- Primary Unspecified essential hypertension Mixed hyperlipidemia Mixed hyperlipidemia Fibromyalgia Unspecified myalgia and myositis Migraine without aura and without status migrainosus, not intractable Class 3 severe obesity due to excess calories without serious comorbidity with body mass index (BMI) of 40.0 to 44.9 in adult ([facility]) Tobacco dependence Tobacco use disorder Bilateral lower extremity edema Acute non-recurrent sinusitis of other sinus COPD mixed type (HCC) Open wound of second toe of left foot, initial encounter Open wound of left foot, initial encounter COPD mixed type (HCC)- Primary Tobacco dependence Tobacco use disorder BMI 40.0-44.9, adult ([facility]) Body mass index [BMI] 40.0-44.9, adult (Z68.41) Primary hypertension Unspecified essential hypertension Bilateral lower extremity edema Edema of right lower extremity- Primary BMI 40.0-44.9, adult ([facility]) Shortness of breath COPD mixed type ([facility]) Primary hypertension Unspecified essential hypertension Bilateral lower extremity edema Bilateral lower extremity edema- Primary Primary hypertension Unspecified essential hypertension COPD mixed type (HCC) Class 3 severe obesity due to excess calories without serious comorbidity with body mass index (BMI) of 40.0 to 44.9 in adult ([facility]) Tobacco dependence Tobacco use disorder Bilateral lower extremity edema- Primary Tobacco dependence Tobacco use disorder BMI 40.0-44.9, adult ([facility]) COPD mixed type (HCC) WINSOME (obstructive sleep apnea) Obstructive sleep apnea (adult) (pediatric) Encounter for subsequent annual wellness visit (AWV) in Medicare patient- Primary Edema of right lower extremity Anxiety and depression Tobacco dependence Tobacco use disorder BMI 40.0-44.9, adult ([facility]) Fibromyalgia Unspecified myalgia and myositis Primary hypertension Unspecified essential hypertension COPD mixed type ([facility]) WINSOME (obstructive sleep apnea)- Primary Obstructive sleep apnea (adult) (pediatric) COPD mixed type (HCC) Primary hypertension Unspecified essential hypertension Fibromyalgia Unspecified myalgia and myositis BMI 40.0-44.9, adult ([facility]) Tobacco dependence Tobacco use disorder Mixed hyperlipidemia Mixed hyperlipidemia Vitamin D deficiency Vitamin B12 deficiency Other B-complex deficiencies COPD with acute exacerbation ([facility]) COPD with acute exacerbation ([facility])- Primary Morbid (severe) obesity due to excess calories ([facility]) Body mass index (BMI) 40.0-44.9, adult ([facility]) WINSOME (obstructive sleep apnea) Obstructive sleep apnea (adult) (pediatric) COPD mixed type ([facility]) Gastroesophageal reflux disease, unspecified whether esophagitis present Tobacco dependence Tobacco use disorder Gastro-esophageal reflux disease without esophagitis Tremor Abnormal involuntary movements Encounter for subsequent annual wellness visit (AWV) in Medicare patient- Primary Chronic kidney disease, stage 3a ([facility]) WINSOME (obstructive sleep apnea) Obstructive sleep apnea (adult) (pediatric) COPD mixed type ([facility]) Gastroesophageal reflux disease, unspecified whether esophagitis present [...] unspecified laterality- Primary documented in this encounter [facility] HealthcareEvaluation note* Diagnosis Primary hypertension- Primary Unspecified essential hypertension Mixed hyperlipidemia Mixed hyperlipidemia Fibromyalgia Unspecified myalgia and myositis Migraine without aura and without status migrainosus, not intractable Class 3 severe obesity due to excess calories without serious comorbidity with body mass index (BMI) of 40.0 to 44.9 in adult ([facility]) Tobacco dependence Tobacco use disorder Bilateral lower extremity edema Acute non-recurrent sinusitis of other sinus COPD mixed type ([facility]) Open wound of second toe of left foot, initial encounter Open wound of left foot, initial encounter COPD mixed type (HCC)- Primary Tobacco dependence Tobacco use disorder BMI 40.0-44.9, adult ([facility]) Body mass index [BMI] 40.0-44.9, adult (Z68.41) Primary hypertension Unspecified essential hypertension Bilateral lower extremity edema Edema of right lower extremity- Primary BMI 40.0-44.9, adult ([facility]) Shortness of breath COPD mixed type ([facility]) Primary hypertension Unspecified essential hypertension Bilateral lower extremity edema Bilateral lower extremity edema- Primary Primary hypertension Unspecified essential hypertension COPD mixed type (HCC) Class 3 severe obesity due to excess calories without serious comorbidity with body mass index (BMI) of 40.0 to 44.9 in adult ([facility]) Tobacco dependence Tobacco use disorder Bilateral lower extremity edema- Primary Tobacco dependence Tobacco use disorder BMI 40.0-44.9, adult ([facility]) COPD mixed type ([facility]) WINSOME (obstructive sleep apnea) Obstructive sleep apnea (adult) (pediatric) Encounter for subsequent annual wellness visit (AWV) in Medicare patient- Primary Edema of right lower extremity Anxiety and depression Tobacco dependence Tobacco use disorder BMI 40.0-44.9, adult ([facility]) Fibromyalgia Unspecified myalgia and myositis Primary hypertension Unspecified essential hypertension COPD mixed type ([facility]) WINSOME (obstructive sleep apnea)- Primary Obstructive sleep apnea (adult) (pediatric) COPD mixed type (HCC) Primary hypertension Unspecified essential hypertension Fibromyalgia Unspecified myalgia and myositis BMI 40.0-44.9, adult ([facility]) Tobacco dependence Tobacco use disorder Mixed hyperlipidemia Mixed hyperlipidemia Vitamin D deficiency Vitamin B12 deficiency Other B-complex deficiencies COPD with acute exacerbation (HCC) COPD with acute exacerbation (HCC)- Primary Morbid (severe) obesity due to excess calories ([facility]) Body mass index (BMI) 40.0-44.9, adult ([facility]) WINSOME (obstructive sleep apnea) Obstructive sleep apnea (adult) (pediatric) COPD mixed type (HCC) Gastroesophageal reflux disease, unspecified whether esophagitis present Tobacco dependence Tobacco use disorder Gastro-esophageal reflux disease without esophagitis Tremor Abnormal involuntary movements Encounter for subsequent annual wellness visit (AWV) in Medicare patient- Primary Chronic kidney disease, stage 3a ([facility]) WINSOME (obstructive sleep apnea) Obstructive sleep apnea [...] Tobacco use disorder documented in this encounter [facility] HealthcareEvaluation note* Diagnosis Primary hypertension- Primary Unspecified essential hypertension Mixed hyperlipidemia Mixed hyperlipidemia Fibromyalgia Unspecified myalgia and myositis Migraine without aura and without status migrainosus, not intractable Class 3 severe obesity due to excess calories without serious comorbidity with body mass index (BMI) of 40.0 to 44.9 in adult ([facility]) Tobacco dependence Tobacco use disorder Bilateral lower extremity edema Acute non-recurrent sinusitis of other sinus COPD mixed type (HCC) Open wound of second toe of left foot, initial encounter Open wound of left foot, initial encounter COPD mixed type (HCC)- Primary Tobacco dependence Tobacco use disorder BMI 40.0-44.9, adult ([facility]) Body mass index [BMI] 40.0-44.9, adult (Z68.41) Primary hypertension Unspecified essential hypertension Bilateral lower extremity edema Edema of right lower extremity- Primary BMI 40.0-44.9, adult ([facility]) Shortness of breath COPD mixed type (HCC) Primary hypertension Unspecified essential hypertension Bilateral lower extremity edema Bilateral lower extremity edema- Primary Primary hypertension Unspecified essential hypertension COPD mixed type (HCC) Class 3 severe obesity due to excess calories without serious comorbidity with body mass index (BMI) of 40.0 to 44.9 in adult ([facility]) Tobacco dependence Tobacco use disorder Bilateral lower extremity edema- Primary Tobacco dependence Tobacco use disorder BMI 40.0-44.9, adult ([facility]) COPD mixed type (HCC) WINSOME (obstructive sleep apnea) Obstructive sleep apnea (adult) (pediatric) Encounter for subsequent annual wellness visit (AWV) in Medicare patient- Primary Edema of right lower extremity Anxiety and depression Tobacco dependence Tobacco use disorder BMI 40.0-44.9, adult ([facility]) Fibromyalgia Unspecified myalgia and myositis Primary hypertension Unspecified essential hypertension COPD mixed type (HCC) WINSOME (obstructive sleep apnea)- Primary Obstructive sleep apnea (adult) (pediatric) COPD mixed type (HCC) Primary hypertension Unspecified essential hypertension Fibromyalgia Unspecified myalgia and myositis BMI 40.0-44.9, adult ([facility]) Tobacco dependence Tobacco use disorder Mixed hyperlipidemia Mixed hyperlipidemia Vitamin D deficiency Vitamin B12 deficiency Other B-complex deficiencies COPD with acute exacerbation (HCC) COPD with acute exacerbation (HCC)- Primary Morbid (severe) obesity due to excess calories ([facility]) Body mass index (BMI) 40.0-44.9, adult ([facility]) WINSOME (obstructive sleep apnea) Obstructive sleep apnea (adult) (pediatric) COPD mixed type (HCC) Gastroesophageal reflux disease, unspecified whether esophagitis present Tobacco dependence Tobacco use disorder Gastro-esophageal reflux disease without esophagitis Tremor Abnormal involuntary movements Encounter for subsequent annual wellness visit (AWV) in Medicare patient- Primary Chronic kidney disease, stage 3a ([facility]) WINSOME (obstructive sleep apnea) Obstructive sleep apnea [...] (BMI) of 40.0 to 44.9 in adult ([facility]) Tobacco dependence Tobacco use disorder Bilateral lower extremity edema Acute non-recurrent sinusitis of other sinus COPD mixed type ([facility]) Open wound of second toe of left foot, initial encounter Open wound of left foot, initial encounter COPD mixed type (HCC)- Primary Tobacco dependence Tobacco use disorder BMI 40.0-44.9, adult ([facility]) Body mass index [BMI] 40.0-44.9, adult (Z68.41) Primary hypertension Unspecified essential hypertension Bilateral lower extremity edema Edema of right lower extremity- Primary BMI 40.0-44.9, adult ([facility] Shortness of breath COPD mixed type ([facility]) Primary hypertension Unspecified essential hypertension Bilateral lower extremity edema Bilateral lower extremity edema- Primary Primary hypertension Unspecified essential hypertension COPD mixed type (HCC) Class 3 severe obesity due to excess calories without serious comorbidity with body mass index (BMI) of 40.0 to 44.9 in adult ([facility]) Tobacco dependence Tobacco use disorder Bilateral lower extremity edema- Primary Tobacco dependence Tobacco use disorder BMI 40.0-44.9, adult ([facility]) COPD mixed type (HCC) WINSOME (obstructive sleep apnea) Obstructive sleep apnea (adult) (pediatric) Encounter for subsequent annual wellness visit (AWV) in Medicare patient- Primary Edema of right lower extremity Anxiety and depression Tobacco dependence Tobacco use disorder BMI 40.0-44.9, adult ([facility]) Fibromyalgia Unspecified myalgia and myositis Primary hypertension Unspecified essential hypertension COPD mixed type (HCC) WINSOME (obstructive sleep apnea)- Primary Obstructive sleep apnea (adult) (pediatric) COPD mixed type (HCC) Primary hypertension Unspecified essential hypertension Fibromyalgia Unspecified myalgia and myositis BMI 40.0-44.9, adult ([facility]) Tobacco dependence Tobacco use disorder Mixed hyperlipidemia Mixed hyperlipidemia Vitamin D deficiency Vitamin B12 deficiency Other B-complex deficiencies COPD with acute exacerbation (HCC) COPD with acute exacerbation (HCC)- Primary Morbid (severe) obesity due to excess calories ([facility]) Body mass index (BMI) 40.0-44.9, adult ([facility]) WINSOME (obstructive sleep apnea) Obstructive sleep apnea (adult) (pediatric) COPD mixed type (HCC) Gastroesophageal reflux disease, unspecified whether esophagitis present Tobacco dependence Tobacco use disorder Gastro-esophageal reflux disease without esophagitis Tremor Abnormal involuntary movements Encounter for subsequent annual wellness visit (AWV) in Medicare patient- Primary Chronic kidney disease, stage 3a ([facility]) WINSOME (obstructive sleep apnea) Obstructive sleep apnea [...] obesity due to excess caloriesacuteSeptember 2024 11:11am [facility] Work Phone: Hospital Discharge instructions No data available for this section General [place] Progress note No data available for this section General [place] Reason for referral (narrative)No reason for referral information availableNationwide Children'S Hospital Work Phone: Reutze for visit Narrative* Consultation (Routine) - ClosedSpecialtyDiagnoses / ProceduresReferred By ContactReferred To Contact Neurology Diagnoses Tremor Procedures PA OFFICE/OUTPATIENT NEW HIGH MDM 60 MINUTES Jaymie Phoenix NP [address] [place] [address] Phone: tel: fax: Saumya Back, [address] [place] [address] Phone: tel: fax: Referral IDStatusReasonStart DateExpiration DateVisits RequestedVisits [id number] Specialty Services Required / [facility] Healthcare Summary Purpose Family History No [...] right Jaymie Phoenix NP [address] [place] [address] Referral IDStatusReasonStart DateExpiration DateVisits RequestedVisits [id number]/15/20248/ Chief Complaint and Reason for Visit Chief [...] section and content) DATE CREATED AUTHOR 12/26/2021 [facility] Paper Pattern Inspector DATE CREATED AUTHOR AUTHOR'S ORGANIZ ATION 03/25/2022 [facility] DATE CREATED AUTHOR AUTHOR'S ORGANIZ ATION 07/17/2022 [facility] DATE CREATED AUTHOR AUTHOR'S ORGANIZ ATION 08/31/2024 [facility] DATE CREATED AUTHOR AUTHOR'S ORGANIZ ATION 09/02/2024 [facility] DATE CREATED AUTHOR AUTHOR'S ORGANIZ ATION 11/25/2024 [facility] Patient Care team informatio n (unrecognized section and content) Team MemberRelationshipSpecialtyStart DateEnd Date Jaymie Phoenix NP [address] [place] [address] Nurse PractitionerFamily Rovbiint37/19/23Team MemberRelationshipSpecialtyStart DateEnd Date Shaikh Marquez MD [address] [place] [address] PCP - GeneralInternal Medicine03/25/23 Jaymie Phoenix NP [address] [place] [address] Nurse PractitionerFamily Eriumykm02/19/23Team MemberRelationshipSpecialtyStart DateEnd Date Shaikh Marquez MD [address] [place] [address] [facility] - [facility]03/25/23 Jaymie Phoenix NP [address] [place] [address] [facility]01/26/23Team MemberRelationshipSpecialtyStart DateEnd Date Rohan Rodríguez MD [address] [place] [address] PCP - [facility]Mon[facility]05/13/23 Jaymie Phoenix NP [address] [place] [address] [facility] Vqjipxwb23/19/23 Jaymie Phoenix NP [address] [place] [address] Nurse [facility] Medicine05/13/23Team MemberRelationshipSpecialtyStart DateEnd Date Rohan Rodríguez MD [address] [place] [address] PCP - [facility] Medicine05/13/23 Jaymie Phoenix NP [address] [place] [address] Nurse Pract[facility] Ygbdpitr16/19/23 Jaymie Phoenix NP [address] [place] [address] Nurse Pract[facility]erMon[facility]05/13/23Team MemberRelationshipSpecialtyStart DateEnd Date Rohan Rodríguez MD [address] [place] [address] PCP - [facility]05/13/23 Jaymie Phoenix NP [address] [place] [address] Nurse Pract[facility]Mon[facility]01/26/23 Jaymie Phoenix NP [address] [place] [address] Nurse [facility]05/13/23Team MemberRelationshipSpecialtyStart DateEnd Date Rohan Rodríguez MD [address] [place] [address] PCP - [facility]05/13/23 Jaymie Phoenix NP [address] [place] [address] Nurse [facility]01/26/23 Jaymie Phoenix NP [address] [place] [address] Nurse [facility]05/13/23Team MemberRelationshipSpecialtyStart DateEnd Date Rohan Rodríguez MD [address] [place] [address] PCP - [facility] Medicine05/13/23 Jaymie Phoenix NP [address] [place] [address] Nurse [facility]Mon[facility]01/26/23 Jaymie Phoenix NP [address] [place] [address] Nurse [facility]05/13/23Team MemberRelationshipSpecialtyStart DateEnd Date Rohan Rodríguez MD [address] [place] [address] PCP - [facility]05/13/23 Jaymie Phoenix NP [address] [place] [address] Nurse [facility]01/26/23 Jaymie Phoenix NP [address] [place] [address] Nurse [facility]05/13/23Team MemberRelationshipSpecialtyStart DateEnd Date Rohan Rodríguez MD [address] [place] [address] PCP - [facility]05/13/23 Jaymie Phoenix NP [address] [place] [address] Nurse Practitionermily Gzhwhenu13/19/23 Jaymie Phoenix NP [address] [place] [address] Nurse Pract[facility]Mon[facility]05/13/23Team MemberRelationshipSpecialtyStart DateEnd Date Rohan Rodríguez MD [address] [place] [address] PCP - Generalmily Medicine05/13/23 Jaymie Phoenix NP [address] [place] [address] Nurse [facility]Mon[facility]01/26/23 Jaymie Phoenix NP [address] [place] [address] Nurse Pract[facility]erMon[facility]05/13/23Team MemberRelationshipSpecialtyStart DateEnd Date Rohan Rodríguez MD [address] [place] [address] PCP - [facility] Medicine05/13/23 Jaymie Phoenix NP [address] [place] [address] Nurse [facility]Mon[facility]01/26/23 Jaymie Phoenix NP [address] [place] [address] Nurse Pract[facility]erMon[facility]05/13/23Team MemberRelationshipSpecialtyStart DateEnd Date Rohan Rodríguez MD [address] [place] [address] PCP - Generalmily Medicine05/13/23 Jaymie Phoenix NP [address] [place] [address] Nurse [facility] Fdrnnmur24/19/23 Jaymie Phoenix NP [address] [place] [address] Nurse Pract[facility]05/13/23Team MemberRelationshipSpecialtyStart DateEnd Date Rohan Rodríguez MD [address] [place] [address] PCP - Generalmi Medicine05/13/23 Jaymie Phoenix NP [address] [place] [address] Nurse [facility] Vyzqlqzt14/19/23 Jaymie Phoenix NP [address] [place] [address] Nurse [facility] Medicine05/13/23Team MemberRelationshipSpecialtyStart DateEnd Date Rohan Rodríguez MD [address] [place] [address] PCP - GeneralFamily Medicine05/13/23 Jaymie Phoenix NP [address] [place] [address] Nurse [facility] Xnjfcexx12/19/23 Jaymie Phoenix NP [address] [place] [address] Nurse Pract[facility]erMon[facility]05/13/23Team MemberRelationshipSpecialtyStart DateEnd Date Rohan Rodríguez MD [address] [place] [address] PCP - [facility]05/13/23 Jaymie Phoenix NP [address] [place] [address] Nurse Pract[facility]01/26/23 Jaymie Phoenix NP [address] [place] [address] Nurse Pract[facility]erMon[facility]05/13/23Team MemberRelationshipSpecialtyStart DateEnd Date Rohan Rodríguez MD [address] [place] [address] PCP - [facility]Mon[facility]05/13/23 Jaymie Phoenix NP [address] [place] [address] Nurse Pract[facility]01/26/23 Jaymie Phoenix NP [address] [place] [address] Nurse [facility] Medicine05/13/23Team MemberRelationshipSpecialtyStart DateEnd Rohan Rodríguez MD [address] [place] [address] PCP - Generalmi Medicine05/13/23 Jaymie Phoenix, NILE [address] [place] [address] Nurse [facility] Tvcebpnc88/19/23 Jaymie Phoenix NP [address] [place] [address] Nurse Pract[facility]erMon[facility]05/13/23Te MemberRelationshipSpecialtyStart DateEnd Date Rohan Rodríguez MD [address] [place] [address] PCP - [facility] Medicine05/13/23 Jaymie Phoenix NP [address] [place] [address] Nurse Pract[facility] Ybzpkskh48/19/23 Jaymie Phoenix NP [address] [place] [address] Nurse PractitionerMon[facility]05/13/23Team MemberRelationshipSpecialtyStart DateEnd Date Rohan Rodríguez MD [address] [place] [address] PCP - [facility] Medicine05/13/23 Jaymie Phoenix NP [address] [place] [address] Nurse Pract[facility]Mon[facility]01/26/23 Jaymie Phoenix NP [address] [place] [address] Nurse Pract[facility]erMon[facility]05/13/23Team MemberRelationshipSpecialtyStart DateEnd Date Rohan Rodríguez MD [address] [place] [address] PCP - [facility]05/13/23 Jaymie Phoenix NP [address] [place] [address] Nurse Pract[facility]Mon[facility]01/26/23 Jaymie Phoenix NP [address] [place] [address] Nurse Pract[facility]erMon[facility]05/13/23Team MemberRelationshipSpecialtyStart DateEnd Date Rohan Rodríguez MD [address] [place] [address] PCP - [facility]05/13/23 Jaymie Phoneix NP [address] [place] [address] Nurse Pract[facility]Mon[facility]01/26/23 Jaymie Phoenix NP [address] [place] [address] Nurse Pract[facility]erMon[facility]05/13/23Team MemberRelationshipSpecialtyStart DateEnd Date Rohan Rodríguez MD [address] [place] [address] PCP - [facility]05/13/23 Jaymie Phoenix NP [address] [place] [address] Nurse Pract[facility]Mon[facility]01/26/23 Jaymie Phoenix NP [address] [place] [address] Nurse Pract[facility]05/13/23Team MemberRelationshipSpecialtyStart DateEnd Date Rohan Rodríguez MD [address] [place] [address] PCP - [facility]05/13/23 Jaymie Phoenix NP [address] [place] [address] Nurse [facility]01/26/23 Jaymie Phoenix NP [address] [place] [address] Nurse Pract[facility]erMon[facility]05/13/23Team MemberRelationshipSpecialtyStart DateEnd Date Rohan Rodríguez MD [address] [place] [address] PCP - [facility]05/13/23 Jaymie Phoenix NP [address] [place] [address] Nurse [facility]01/26/23 Jaymie Phoenix NP [address] [place] [address] Nurse Pract[facility]erMon[facility]05/13/23Team MemberRelationshipSpecialtyStart DateEnd Date Rohan Rodríguez MD [address] [place] [address] PCP - [facility]05/13/23 Jaymie Phoenix NP [address] [place] [address] Nurse [facility]01/26/23 Jaymie Phoenix NP [address] [place] [address] Nurse Pract[facility]er[facility]05/13/23Team MemberRelationshipSpecialtyStart DateEnd Date Rohan Rodríguez MD [address] [place] [address] PCP - [facility]05/13/23 Jaymie Phoenix NP [address] [place] [address] [facility] Mkamnnxh87/19/23 Jaymie Phoenix NP [address] [place] [address] Nurse Pract[facility]05/13/23Team MemberRelationshipSpecialtyStart DateEnd Date Rohan Rodríguez MD [address] [place] [address] PCP - [facility]Mon[facility]05/13/23 Jaymie Phoenix NP [address] [place] [address] Nurse Pract[facility]Mon[facility]01/26/23 Jaymie Phoenix NP [address] [place] [address] Nurse Pract[facility]erMon[facility]05/13/23 Team Status: Active Member Role Status Dates Jaymie Phoenix , [employer]STRUCTOR-C Primary Care Provider Active Team Status: Active Member Role Status Dates Jaymie Phoenix , [employer] INSTRUCTOR-C Primary Care Provider Active Start: August 29, 2024 Francisco Judeg ProviderActiveStart: August 29, 2024 Team Status: Active Member Role Status Dates Jaymie Phoenix , [employer] INSTRUCTOR-C Primary Care Provider Active Start: October 10, 2024 Jaymie Phoenix [employer] D[employer]AL ART INSTRUCTOR-CAttending ProviderActiveStart: October 10, 2024 Team Status: Inactive Member Role Status Dates Jaymie Phoenix , [employer] INSTRUCTOR-C Primary Care Provider Active Start: October 31, 2024 End: October 31, 2024Jaymie Phoenix [employer] INSTRUCTOR-CAttending ProviderActiveStart: October 31, 2024 End: October 31, 2024Team MemberRelationshipSpecialtyStart DateEnd Date Shaikh Marquez MD PCP - GeneralInternal Medicine Rohan Rodríguez MD PCP - GeneralFamily Medicine Rohan Rodríguez MD PCP - GeneralFamily Medicine05/13/23 Jaymie Phoenix NP [facility] Wxkgngwj67/19/23 Jaymie Phoenix NP [facility]05/13/23Team MemberRelationshipSpecialtyStart DateEnd Date Rohan Rodríguez MD PCP - [facility] Medicine05/13/23 Jaymie Phoenix NP [facility] Uxuixtkz50/19/23 Jaymie Phoenix NP [facility] Medicine05/13/23Team MemberRelationshipSpecialtyStart DateEnd Date Shaikh Marquez MD PCP - GeneralInternal Medicine Rohan Rodríguez MD PCP - GeneralFamily Medicine Rohan Rodríguez MD PCP - GeneralFamily Medicine05/13/23 Jaymie Phoenix NP [facility] Pract[facility]erMercyone [facility]ly Rlkcbvuj75/19/23 Jaymie Phoenix NP [facility]05/13/23Team MemberRelationshipSpecialtyStart DateEnd Date Rohan Rodríguez MD PCP - GeneralFamily Medicine Rohan Rodríguez MD PCP - GeneralFamily Medicine05/13/23 Jaymie Phoenix NP [facility] Hwpidnns02/19/23 Jaymie Phoenix NP [facility]05/13/23Team MemberRelationshipSpecialtyStart DateEnd Date Shaikh Marquez MD PCP - GeneralInternal Medicine Rohan Rodríguez MD PCP - GeneralFamily Medicine Rohan Rodríguez MD PCP - [facility]05/13/23 Jaymie Phoenix NP [facility]01/26/23 Jaymie Phoenix NP Nurse [facility]05/13/23Team MemberRelationshipSpecialtyStart DateEnd Date Rohan Rodríguez MD PCP - [facility]05/13/23 Jaymie Phoenix NP [facility]01/26/23 Jaymie Phoenix NP Nurse [facility]05/13/23 Reason for Visit (unrecogniz ed section and content) ReasonCommentsMed RefillReasonCommentsMed RefillReasonOnset DateCommentsMed Mfgzki6506/14/2024ReasonCommentsMedicare Annual Wellness Visit InitialReason CommentsMed Change Request [...] BE BASED ON THE PRIMARY CLINICAL RECORDS. [employer] [facility]. provides no warranty or guarantee of the accuracy or completeness of information in this document.
--- OUTSIDE RECORDS SUMMARY | 2025-02-05 07:35 | XMS_ITS | Clinical Summary ---
Author Organization [facility] Address [address] [place] [address] Care Team Providers Care Sand Screener Operator Name Role Phone Jaymie Phoenix GUN PROFILER Unavailable [phone] Rohan Rodríguez MD Primary Care Provider [phone] Jaymie Phoenix GUN PROFILER Unavailable [phone] Allergies Active AllergyReactionsCriticalityNoted DateCommentsPenicillin ERwpdn7410/28/2024 shortness of breath PenicillinsHives,Shortness of breath,WadlmngdIxpx77/27/2023 Shortness of breath GpwxfepajtWypyvpjIjsulm76/27/2023 Itchy eyes and shortness of breath Medications MedicationSigDispense QuantityRefillsLast FilledStart DateEnd DateStatus cholecalciferol (Vitamin D-3) 125 MCG (5000 UT) tablet as directed OrallyActive ibuprofen 800 MG tablet Take 800 mg by mouth every 8 (eight) hours if bifaya5701/08/2023ctive lamoTRIgine (LaMICtal) 200 MG tablet Take 200 mg by mouth at bedtimeActive prazosin (Minipress) 2 MG capsule Take 2 mg by mouth at bedtimeActive ipratropium-albuterol (Duo-Neb) 0.5-2.5 mg/3 mL nebulizer solution Take 3 mL by nebulization every 6 (six) hours if needed for wheezing or shortness of pftcyp0112/28/2023ctive albuterol (2.5 MG/3ML) 0.083% nebulizer solution Take 2.5 mg by nebulization every 6 (six) hours if needed for shortness of breath or qrrffjug10/15/2024ctive lamoTRIgine (LaMICtal) 100 MG tablet Take 100 mg by mouth DailyActive prazosin (Minipress) 1 MG capsule Take 1 mg by mouth at qqemxhe02/08/2024Active albuterol HFA 90 mcg/act inhaler Indications:COPD mixed type (HCC)Inhale 2 puffs every 6 (six) hours if needed for shortness of breath or wheezing 18 g 5Active QUEtiapine (SEROquel) 300 MG tablet Take 300 mg by mouth at xeehvlq31/03/2025Active amitriptyline (Elavil) 100 MG tablet Indications:FibromyalgiaTake 0.5 [...] MG tablets TAKE BY MOUTH DIRECTED ON DAPZCFB8710/04/2024tive cyclobenzaprine (Flexeril) 5 MG tablet TAKE 3 TABLETS BY MOUTH THREE TIMES DAILY WELXZN0310/20/2024tive pregabalin (Lyrica) 75 MG capsule Take 75 mg by mouth in the morning and 75 mg before bedtime.11/29/2024tive Active Problems ProblemNoted DateDiagnosed DateAcute back pain with syykhoyx81/21/2025Screening for lung ioifrs7007/31/2024 Assessment & Plan (07/31/2024 11:24 AM EDT): [...] EDT): Check Chem 8 Environmental and seasonal bttkpbeph83/12/5378Fpvolc86/02/2025 Assessment & Plan (07/31/2024 7:12 AM EDT): Will refer to neuro for this Differentials: side effects med, PD? Assessment & Plan (02/10/2024 5:13 PM EST): Will refer to neuro for this Differentials: side effects med, PD? COPD with acute sobslzqckyic56/25/2024 Assessment & Plan (02/10/2024 7:12 AM EST): [...] be partial cause of swelling Acute megaloblastic uvxhrz0502/18/2023nxiety and eikbjnrfid97/11/2024 Assessment & Plan (07/31/2024 7:11 AM EDT): Continue with Dr Hernandez Assessment & Plan (06/03/2023 6:38 PM EDT): Continue with Dr Hernandez Hyperplastic polyp of sigmoid colon02/18/2023Internal derangement of left knee 02/18/2023Osteoarthritis of knee02/18/20237211Myulzqsojl33/11/2024atellofemoral syndrome of left knee02/18/2023ositive colorectal cancer screening using Cologuard test02/18/2023Vitamin B12 msvimzvuwi31/11/2024Vitamin D deficiency 02/18/2023ody mass index (BMI) 40.0-44.9, adult02/18/2023Morbid (severe) obesity due to excess wkzniqbo23/11/2024 Assessment & Plan (07/31/2024 11:22 AM EDT): [...] exercise on regular basis Chronic lumbar pain02/18/2023Mixed ntuilovcbmfbcp44/19/2023 Assessment & Plan (07/31/2024 7:11 AM EDT): On statin therapy Check labs yearly and prn dose changes Assessment & Plan (01/03/2024 6:48 AM EST): On statin therapy, check labs Assessment & Plan (01/26/2023 10:36 AM EST): Check labs Tobacco tojmsmuraq95/19/2023 Overview (05/31/2023): Low dose CT scan chest: 05/31/23: WNL Assessment & Plan (07/31/2024 11:23 AM EDT): The patient has been advised of the risks of continued smoking: stroke, DC, all forms of cancer, lung disease, and [...] of the risks of continued smoking: stroke, DC, all forms of cancer, lung disease, and [...] of the risks of continued smoking: stroke, DC, all forms of cancer, lung disease, and [...] of the risks of continued smoking: stroke, DC, all forms of cancer, lung disease, and [...] of the risks of continued smoking: stroke, DC, all forms of cancer, lung disease, and . Options for quitting smoking include: cold turkey, hypnosis, acupuncture, nicotine replacement meds(gum, lozenges, and patches), Buproprion, and Varenicline. At this time pt is encouraged to evaluate their goals for wanting to quit smoking, and reach out toprovider when ready to start this process Assessment & Plan (01/26/2023 10:37 AM EST): Recommend quitting, pt declines Primary fjvubxwujuqq93/19/2023 Assessment & Plan (07/31/2024 7:06 AM EDT): [...] mannie Will cover with atb as well Ysfqfhhkberb73/27/2023 Assessment & Plan (07/31/2024 11:22 AM EDT): [...] continue Resolved Problems ProblemNoted DateDiagnosed DateResolved DateEssential qumebpfpnblh23/30/2025 12/07/2024GERD without cxjirxsvpfj44Morbid obesity due to excess doqlfdyc67OA (osteoarthritis) of knee12/07/2024 12/07/2024Nicotine uhvdtskult56Megaloblastic wtozlz7112/06/2024 12/06/2024Major depressive disorder, recurrent, pytsngdz50GAD (generalized anxiety disorder)KD stage 3a, GFR 45-59 ml/min OPD with xsqtmhehwqsb47Elevated SGOT AP (community acquired pneumonia)Edema of right lower tqdemtnpl89 Assessment & Plan (06/03/2023 6:39 PM EDT): Significant improvement in swelling, however d/t renal functions, we are going to cut back to [facility] Recheck labs in 4 weeks, order given Assessment & Plan (03/25/2023 4:34 PM EST): Will order labs: CBC, Chem 14, and d dimer Check stat US RLE, negative for clot Shortness of zdouwv62/ Assessment & Plan (03/25/2023 4:32 PM EST): Chest xray Acute pain of left knee/arbon monoxide xwaqspix94/11/2024 03/16/2023Hearing lossLower extremity edema02/18/2023 03/16/2023Tobacco user/07/20233619Wsshgrsmq58/11/202402/07/2023 Jckxhydlfofgua20lass 3 severe obesity due to excess calories without serious comorbidity with body mass index (BMI) of 40.0 to 44.9 in adult Other acute tgohzwniu23/07/2023Open wound of second toe Assessment & Plan (01/26/2023 10:50 AM EST): Atb, and epsom salt soaks Fu in 4 weeks Open wound of left foot/05/2023 Assessment & Plan (01/26/2023 10:53 AM EST): Soak foot epsom salt Atb Fu in 4 weeks Migraine headache without aura1/05/2023 Assessment & Plan (01/26/2023 10:36 AM EST): Stable on current meds no changes needed Essential fdudfsyeomvl26/04/202202/07/20235659Jgoxjx77Smoking ugwmrwn82Fibromyalgia xrwlnlnp51HTN (hypertension) Immunizations ImmunizationAdministration DatesNext Elisa CDJV-KxR-553/07/2021Tdap 08/29/2023 Social History Tobacco UseTypesPacks/DayYears UsedDateSmoking Tobacco: Every UzuRtmxsbmitx004 Smokeless Tobacco: Never Tobacco Cessation:Ready to Q [...] relatives?Twice a week05/13/2023How often do you attend caodaism or jew services?Never05/13/2023o you belong to any clubs or organizations such as caodaism groups, unions, fraternal or athletic groups, or school groups?No 05/13/2023How often do you attend meetings of the clubs or organizations you belong to?Never05/13/2023re you , , , , never , or living with a partner?Gfyyxxf2805/13/2023UDIT-CAnswerDate RecordedQ1: How often do you have a [...] care, and heating?Somewhat hard05/13/2023HQ-2AnswerDate RecordedPatient Health Questionnaire-2 Ecwdh326FinParkview Hospital [facility] of Occupational Health - Occupational Stress QuestionnaireAnswerDate RecordedDo you feel stress - tense, restless, nervous, or anxious, or unable to sleep at night because your mind is troubled all the time - these days?Only a kpkvbg4805/13/2023Exercise Vital SignAnswerDate RecordedOn average, how many days [...] sleep or slept in ashelter (including now)?No 4CommentsUnknownSex and Gender InformationValueDate RecordedSex Assigned at BirthNot on fileLegal UejTybizd37/15/2023 7:27 PM EDTGender Identity Not on fileSexual OrientationNot on file Last Filed Vital Signs Vital SignReadingTime TakenCommentsBlood Jxqdfpwd638/6407 1:00 PM EDT Sfdyy969808/31/2024 1:00 PM RODBlscpptlhog15.7 ??C (98.1 ??F)07/31/2024 10:09 AM EDTRespiratory Rmwu380707/31/2024 10:09 AM EDTOxygen Uqzsgormmx24%08/31/2024 1:00 PM EDTInhaled Oxygen Concentration--Xidqat661 kg (245 lb)08/31/2024 1:00 PM EDT Algcmg289.1 cm (5' 5 )02/10/2024 1:31 PM ESTBody Mass Index40.77002/10/2024 1:31 PM EST Plan of Treatment Not on file Insurance Care Teams Team MemberRelationshipSpecialtyStart DateEnd Date Rohan Rodríguez MD [facility] - [facility]23 Jaymie Phoenix NP Nurse PractitionerW[facility] Oybhdoep50/19/23 Jaymie Phoenix NP Nurse PractitionerW[facility]tham [facility]al [facility] Medicine05/13/23
--- OUTSIDE RECORDS SUMMARY | 2025-02-05 07:35 | XMS_ITS | Encounter Summary ---
Author Organization [employer] [facility] Address [address] [place] [address] Care Team Providers Care Dietetic Aide Name Role Phone Unavailable Primary Care Provider Unavailabl e Reason for Referral * Surgical (Routine) - New RequestSpecialtyDiagnoses / ProceduresReferred By ContactReferred To Contact Diagnoses Sacroiliitis Steven Lombardo MD [address] [place] [address] Phone: tel: fax: Referral IDStatusReasonStart DateExpiration DateVisits RequestedVisits [id number] Vunetcp50 Scheduling Instructions Please PA and schedule: Left SI joint injection #1 with steroid CPT: 82584 left * Surgical (Routine) - New RequestSpecialtyDiagnoses / ProceduresReferred By ContactReferred To Contact Diagnoses Sacroiliitis Steven Lombardo MD [address] [place] [address] Phone: tel: fax: Referral IDStatusReasonStart DateExpiration DateVisits RequestedVisits [id number] Btpnoam07/ Scheduling Instructions Please PA and schedule: Left SI joint injection #3 with 2% lidocaine only. CPT 44063 Left * Surgical (Routine) - New RequestSpecialtyDiagnoses / ProceduresReferred By ContactReferred To Contact Diagnoses Sacroiliitis Steven Lombardo MD [address] [place] [address] Phone: tel: fax: Referral IDStatReradhaStfrancisco DateExpiration DateVisits RequestedVisits [id number] Ertjfyy68/ Scheduling Instructions Please PA and schedule: Left SI joint injection #2 with 0.25% bupivacaine only. CPT: 21300 Left Encounter Details DateTypeDepartmentCare Team (Latest Contact Info)Tfngvjuwzbm91/17/2025Orders Only [facility] Procedural Pain Management [address] [place] [address] Autumn Williamson Sacroiliitis (Primary Dx) Social History Tobacco UseTypesPacks/DayYears UsedDateSmoking Tobacco: Never Assessed CommentsUnknownSex and Gender InformationValueDate RecordedSex Assigned at Not on fileLegal OhgSelmdc22/28/2025 9:57 AM ESTGender IdentityNot on fileSexual OrientationNot on filedocumented as of this encounter Progress Notes * Autumn Williamson - 01/24/2025 9:[address] Muhammad order documented in this encounter Plan of Treatment DateTypeDepartmentCare Team (Latest Contact Info)Lfnvzoxcnpg74/10/2026 2:30 PM ESTOffice Visit [facility] [address] [place] [address] Steven Lombardo MD [address] [place] [address] 03/27/2025 2:30 PM ESTOffice Visit [facility] [address] [place] [address] Steven Lombardo MD [address] [place] [address] 04/10/2025 2:30 PM ESTOffice Visit [facility] [address] [place] [address] Steven Lombardo MD [address] [place] [address] NameTypePriorityAssociated DiagnosesOrder ScheduleSCHEDULE PROCEDURESchedule Routine Sacroiliitis Ordered: 01/24/2025SCHEDULE PROCEDUREScheduleRoutine Sacroiliitis Ordered: 01/24/2025SCHEDULE PROCEDUREScheduleRoutine Sacroiliitis Ordered: 01/24/2025documented as of this encounter Visit Diagnoses Diagnosis Sacroiliitis- Primary Sacroiliitis, not elsewhere classified documented in this encounter
--- OUTSIDE RECORDS SUMMARY | 2025-02-05 07:35 | XMS_ITS | Patient Health Record ---
Author Organization [facility] [place] Address [address] [place] [address] Care Team Providers Care Design Release Engineer Name Role Phone Jaymie Phoenix CNP Primary Care Provider Unavail able Jackson Moralez [phone] Allergies Allergen (clinical drug ingredient) Drug/Non Drug [...] minutes before morning meal Orally Once a dayActiveBreztri Aerosphere 160/9/4.8 mcg2 puffs inhalation BID; Duration: 30 daysRinse after use07/16/2022ctive Spironolactone 50 MG1 tablet Orally Once a dayActiveAmitriptyline HCl 100 MG1 tablet at bedtime Orally Once a dayActiveSimvastatin 40 MG1 tablet in the evening Orally Once a dayActivelamoTRIgine 200 MG1 tablet Orally Once a day ActiveVitamin D3 125 [...] Long-term current us e of inhaled steroid (455025784) residential (current) use of inhaled steroids (Z79.51) ActiveconfirmedProblemChest pain (37968312)Chest pain (R07.9)Activeconfirmed ProblemChronic obstructive pulmonary disease (12978918)Chronic obstructive pulmonary disease (J44.9)ActiveconfirmedProblemAnxiety (78439420)Anxiety (F41.9) ActiveconfirmedProblemDyspnea (292669978)Dyspnea (R06.00)ActiveconfirmedProblem Obstructive sleep apnea (88508179)Obstructive sleep apnea (G47.33)Active confirmedPSG 08/08/2013: AHI 27ProblemMental disorder caused by drug (471012506) Cigarette nicotine dependence with nicotine-induced disorder (F17.219)Active confirmedProblemGastroesophageal reflux disease (194769680)Gastroesophageal reflux disease (K21.9)ActiveconfirmedProblemAcute exacerbation of chronic obstructive airways disease (527373057)Acute exacerbation of chronic obstructive airways disease (J44.1)ActiveconfirmedProblemCarbon monoxide exposure (23904583) Carbon monoxide exposure (Z77.29)ActiveconfirmedProblemAbnormal diffusion capacity determined by pulmonary function test (R94.2)ActiveconfirmedProblem Chronic ulcer of foot (044344521)Non-pressure chronic 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 (L97.412)ActiveconfirmedProblemHistory of COVID- 19 (863238711603054243)History of COVID-19 (Z86.16)Activeconfirmed03/10/2022 Encounters Encounter Location Date Provider Diagnosis Pulmonary Medicine [place] [address] [place] [address] 02/16/2024 Jackson Moralez Plan Of Treatment No Information Insurance Providers Payer Name Payer Address Payer Phone Subscriber Number Group Number Insured Name Patient Relationship to Insured Coverage Start Date Coverage End Date [employer] [address] [place], [place] [id number] Lily Gagnon - patient is the insured [...] ine-induced disorder F17.219 History of COVID-19 Z86.16 residential (current) use of inhaled stero ids Z79.51 Abnormal diffusion capacity determined b y pulmonary function test R94.2 Carbon monoxide exposure Z77.29 Surgical History Surgery Date(Month/Year) section hysterectomy, laparoscopically assistedtubal ligationHospitalization History Reason Date(Month/Year) COPD Exacerbation-[facility] 12/24/2023
--- OUTSIDE RECORDS SUMMARY | 2025-02-05 07:35 | XMS_ITS | Clinical Summary ---
Author Organization [facility] Address [address] [place] [address] Care Team Providers Care Academic Department Chair Name Role Phone Jaymie Phoenix Linda HARPER Primary Care Provider [phone] Allergies Active AllergyReactionsCriticalityNoted DateCommentsPenicillinsSwelling 03/10/2011 Medications MedicationSigDispense [...] Problems ProblemNoted DateDiagnosed DateHTN (hypertension)03/10/2011GERD (gastroesophageal reflux disease)03/10/20117451Nuytps45/31/2012Elevated SGOT (AST) 03/10/2011Fibromyalgia wjkgqysy40/31/2012bnormal thyroid blood test, past nadjeag6703/10/2011 Overview (03/10/2011): 6 months ago, normal from 02/10/2011 Smoking lhswisq4403/10/2011 Social History Tobacco UseTypesPacks/DayYears UsedDateSmoking Tobacco: NeverSmokeless Tobacco: NeverAlcohol UseStandard Drinks/WeekCommentsNot Asked0 (1 standard drink = 0.6 oz pure alcohol)CommentsUnknownSex and Gender InformationValueDate RecordedSex Assigned at BirthNot on fileLegal RwqMbjlix49/02/2012 10:13 AM EST Gender IdentityNot on fileSexual OrientationNot on file Last Filed Vital Signs Vital SignReadingTime TakenCommentsBlood Pbdybtbo093/8505 1:02 PM EDT Rsuoy879506/08/2013 1:02 PM EDTTemperature--Respiratory Cbbb056806/08/2013 1:02 PM EDTOxygen Koexdpfomy38%06/08/2013 1:02 PM EDTInhaled Oxygen Concentration-- Ryagoc95.8 kg (187 lb)06/08/2013 1:02 PM SSQDyfcif813.6 cm (5' 6 )06/08/2013 1:02 PM EDTBody Mass Index30.18006/08/2013 1:02 PM EDT Plan of Treatment Health MaintenanceDue DateLast DoneCommentsAnxiety Gpqaxczhh46/09/1982Depression Bcfagwasq11/09/1982HIV Tfbmlagor54/09/1982DTaP,Tdap,Td Vaccine (1 - Tdap) 08/16/1982Cervical Cancer Onhzezlix89/09/1985Mammogram Dbbdolsvx12/09/2004CT Vpwrddmtaqzx82/09/2009Cologuard (FIT-DNA)08/16/20081771Tnkgaltapog48/09/2009 Colorectal Cancer Srgggmstp31/09/2009Diabetes Gwwpsycec76/09/2009Fecal Occult Blood08/16/2008Lipid Ubgykqhvf62/09/6770Naunmzsfrhhhy80/09/2009Pneumococcal Vaccine: 50+ (1 of 1 - PCV)08/16/2013Shingrix Vaccine (1 of 2)08/16/2013Covid-19 Vaccine (1 - season)2024Influenza Vaccine (#1)2024RSV Vaccine (1 - 1-dose 75+ series)08/16/2038Hepatitis C ScreeningCompleted 03/10/2011 Procedures Procedure NamePriorityDate/TimeAssociated DiagnosisCommentsHEP REMOTE PANEL BL Lvnrhho3903/10/2011 11:21 AM EST Elevated SGOT (AST) Tattoo Fatigue from Last 3 Months or Most Recently Relevant to Health Maintenance Results * (ABNORMAL) HEP REMOTE PANEL BL (03/10/2011 11:21 AM EST)ComponentValueRef RangeTest MethodAnalysis TimePerformed AtPathologist SignatureHep B Core Ab, TotalPositive(A)[facility]GATC[facility] LAB[facility]ATORYHep C Antibody IANegative NEGATCLEVELAND [facility] MAIN LABORATORYHBsAgNegativeNEGATCLEVELAND [facility]BY [facility] MAIN LABORATORYHep B Surface Ab, [...] StatusFeiban Singer MDLABORATORYFinal ResultPerforming OrganizationAddressCity/State/ZIP CodePhone Number [facility] [address] [place] [address] from Last 3 Months or Most Recently Relevant to Health Maintenance Insurance * Guarantor: Agatha Gagnon TypeRelation to PatientDate of BirthPhone Billing AddressSelf [phone] [address] Care Teams Team MemberRelationshipSpecialtyStart DateEnd Date Jaymie Phoenix, PUBLICATION EDITOR [address] [place] [address] [facility]04/10/13
--- OUTSIDE RECORDS SUMMARY | 2025-02-05 07:35 | XMS_ITS | Clinical Summary ---
Author Organization [facility] Address [address] [place] [address] Care Team Providers Care Color Separation Photographer Name Role Phone Unavailable Primary Care Provider Unavailabl e Encounters DateTypeDepartmentCare CgptVkptmehpsbz30/17/2025Orders Only [facility] [place] [facility] [address] [place] [id number] Autumn Williamson Sacroiliitis (Primary Dx)01/24/2025Telephone [facility] [place] [facility] [address] [place] [address] Autumn Williamson Qtvftchm35/12/2025Telephone [facility] [address] [place] [address] [facility]01/18/2025Telephone [facility] [address] [place] [address] Autumn Williamson Referralfrom Last 3 Months Social History Tobacco UseTypesPacks/DayYears UsedDateSmoking Tobacco: Never Assessed CommentsUnknownSex and Gender InformationValueDate RecordedSex Assigned at Not on fileLegal FzhXsfhbj71/28/2025 9:57 AM ESTGender IdentityNot on fileSexual OrientationNot on file Plan of Treatment DateTypeDepartmentCare Team (Latest Contact Info)Gkksffwkpbh94/10/2026 2:30 PM ESTOffice Visit [facility] [place] [facility] [address] [place] [address] Steven Lombardo MD [address] [place] [address] 03/27/2025 2:30 PM ESTOffice Visit [facility] [place] [facility] [address] [place] [address] Steven Lombardo MD [address] [place] [address] 04/10/2025 2:30 PM ESTOffice Visit [facility] [address] [facility] [place] [address] Steven Lombardo MD [address] [place] [address] Health MaintenanceDue DateLast DoneCommentsHEPATITIS C VIRUS KKCRTRAGE06[birth year]09/1966 MQOHBCQ00 1965HIV SCREENING DQENSCFQYX29/09/1979TDAP (ADULT)08/16/1982 CERVICAL CANCER SCREENING GCTVRLFPNU21/09/1985LIPID KDLTHEBQD22/09/2004MAMMOGRAM SCREENING CBXHIKJBRH83/09/2004COLORECTAL CANCER SCREENING RRSVQQLEDW72/09/2009 PNEUMOCOCCAL VACCINE SERIES (1 of 1 - PCV)08/16/2013ZOSTER (SHINGLES) VACCINE (1 of 2)08/16/2013COVID-19 VACCINE (1 - 2024- season)2024INFLUENZA VACCINE (#1)2024RSV VACCINE (1 - 1-dose 75+ series)08/16/2038HEP B VACCINEAged Out No longer eligible based on patient's age to complete this topic Insurance
--- OUTSIDE RECORDS SUMMARY | 2025-02-05 07:35 | XMS_ITS | Encounter Summary ---
Author Organization [facility] Address [address] [place] [address] Care Team Providers Care Personal Insurance Advisor Name Role Phone Unavailable Primary Care Provider Unavailabl e Reason for Visit * ReasonOnset MmeqImxfaybyTtbbzjxu75/17/2025 Encounter Details DateTypeDepartmentCare Team (Latest Contact Info)Rcqyatgcekk54/17/2025Telephone [facility] Procedural Pain Management [address] [place] [address] Autumn Williamson Referral Social History Tobacco UseTypesPacks/DayYears UsedDateSmoking Tobacco: Never Assessed CommentsUnknownSex and Gender InformationValueDate RecordedSex Assigned at Not on fileLegal LobYflszq92/28/2025 9:57 AM ESTGender IdentityNot on fileSexual OrientationNot on filedocumented as of this encounter Miscellaneous Notes * Telephone Encounter - Autumn Williamson - 01/24/2025 9:00 AM EST LVM for pt to call back to schedule Lefi SIJ Injection series per Dr. Muhammad order. If pt calls back please schedule, with a follow up with Dr. Muhammad in between each injection. Left SI joint injection #1 with steroid Left SI joint injection #2 with 0.25% bupivacaine only. Left SI joint injection #3 with 2% lidocaine only documented in this encounter Plan of Treatment DateTypeDepartmentCare Team (Latest Contact Info)Nihzofztbzg96/10/2026 2:30 PM ESTOffice Visit [facility] [address] [place], [place] [phone] Steven Lombardo MD [address] [place] [phone] 03/27/2025 2:30 PM ESTOffice Visit [facility] [address] [place] [address] Steven Lombardo MD [address] [place] [address] 04/10/2025 2:30 PM ESTOffice Visit [facility] [address] [place] [address] Steven Lombardo MD [address] [place] [address] documented as of this encounter Visit Diagnoses Not on filedocumented in this encounter
[2025-02-05 07:56] VITALS: BP 127/82; PULSE 81; TEMP 36.5; O2SAT 93
[2025-02-05] MEDS: IOHEXOL 240 MG/ML - 10 ML VIAL 24 MG INJ (08:32)
[2025-02-05] MEDS: BUPIVACAINE HCL 0.25% PF 25 MG/10 ML VIAL 2 ML INJ (08:32)
[2025-02-05] MEDS: LIDOCAINE HCL 2% 400 MG/20 ML MDV INJ (08:32)
--- NOTE | 2025-02-05 08:32 | W.PM.PROCNOT ---
Date of procedure: 02/05/25 Pre-op diagnosis: Pain due to left sacroiliitis Post-op diagnosis: same as pre-op Procedure: Procedure: Left sacroiliac joint injection Medications: Bupivacaine 0.25% 3cc, lidocaine 2% 2cc After informed consent was obtained, the patient was brought to the medical procedure unit and placed in the prone position, when a timeout was completed verifying correct patient, procedure, site, positioning, implant, and/or special equipment.? The skin overlying the area was prepped and draped in standard sterile fashion using alcohol.? A 25-gauge needle was inserted towards the left sacroiliac joint under direct fluoroscopic imaging.? Needle tip was advanced until the joint was encountered.? We instilled a total of 2 mL of solution.? Postoperatively needles were removed.? The patient tolerated the procedure well without complication.? The patient reported reduction in pain symptoms postoperatively. Anesthesia: Local Surgeon: Mayela Merchant Pathology: none sent Condition: stable Disposition: no change
[2025-02-05 08:34] VITALS: BP 145/73; BP 146/75; PULSE 68; PULSE 69; O2SAT 94; O2SAT 98
== END 2025-02-05 08:36 | disposition home or self-care (01) ==
PROVIDERS: PCP Nurse Practitioner; Visit Provider Anesthesiology
DX: M46.1 Sacroiliitis, not elsewhere classified (principal); G89.29 Other chronic pain
CPT/HCPCS: 27096; J0665; Q9966